=== PATIENT | female | born 1940 | race Caucasian/White ===

== ENCOUNTER 2025-03-25 00:40 | Inpatient (IN) | payer MEDICARE, SELFPAY ==
[2025-03-25] VITALS (16 sets, daily range): BP systolic 121–171; BP diastolic 59–71; PULSE 74–88; RESP 14–20; TEMP 36.1–37.8; O2SAT 93–99; BMI 31.5; BMI 31.7; BMI 32.5
--- OUTSIDE RECORDS SUMMARY | 2025-03-25 01:10 | XMS RPT_ITS | CCD ---
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 Name Role Phone EMILIANO LEAL DO Primary Care Physician [phone] Candy PT, Daniella Unavailable Unavailable KEILY AMADO DO Attending Unavaila EMILIANO Woodard DO Primary Care Unavailable RAPHAEL TERRELL, DR STANTON Attending Unavailable ELVIS TERRELL, EMILIANO Primary Care Unavailable DONATO NAVARRETE DO Primary Care Physician ASIM AMAYA Attending UnavailDONATO Ward DO Primary Care Unavailable ASIM AMAYA Attending Unavailab DONATO Frye DO Primary Care Unavailable EMILIANO LEAL DO Attending Unavailable EMILIANO LEAL DO Primary Care Unavailable ASIM AMAYA Attending UnavailDONATO Ward DO Primary Care Unavailable DONATO NAVARRETE DO Attending Unavailable DONATO NAVARRETE DO Primary Care Unavailable EMILIANO LEAL DO Attending Unavailable EMILIANO LEAL DO Primary Care Unavailable EMILIANO LEAL DO Attending Unavailable EMILIANO LEAL DO Primary Care Unavailable DONATO NAVARRETE DO Primary Care Unavailable DONATO NAVARRETE DO Attending Unavailable EMILIANO LEAL DO Primary Care Unavailable ASIM AMAYA Attending Unavailab EMILIANO Tracey DO Primary Care Unavailable EMILIANO LEAL DO Attending Unavailable HIEN TERRELL, DR CAAL Attending Unavailable DANIELLA DOUGHERTY Admitting Unavaila EMILIANO Woodard DO Primary Care Unavailable EMILIANO LEAL DO Primary Care Unavailable LAUREN JHA Consulting Unavailable BETHANY TERRELL, DR TERRIE Farnsworth Attending Unavailvonnie AGUSTIN MD, DR MONIKA Farnsworth Consulting Solo HOFFMAN MD, DR CASTLE Attending UnavailEMILIANO Roman DO Primary Care Unavailable EMILIANO LEAL DO Primary Care Unavailable ENZO PANCHAL, JODY Barraza Attending Unavail hemant MUSA MD FACP, JAREK Powers Consulting Unavail able HIEN TERRELL, DR CAAL Attending Unavailable ELVIS DO, EMILIANO Primary Care Unavailable EZEKIEL AGACNP, RHINA M Admitting Unavailab megan DIEHL RADIATION ENGINEER-FINE ARTS CHAIR, ASIM Consulting Unavailab megan RODRIGUEZ DO, DR CAAL Attending Unavailable KAPPFEI RADIATION ENGINEER-FINE ARTS CHAIR, DANIELLA M Admitting Unavaila ble ELVIS DO, EMILIANO Primary Care Unavailable DONATO NAVARRETE DO Primary Care Unavailable DONATO NAVARRETE DO Attending Unavailable EVLIS DO, EMILIANO Primary Care Unavailable RANDEE RADIATION ENGINEER-FINE ARTS CHAIR, ANASTASIYA Tobias Attending Unavail hemant GALDAMEZ MD, JESSIE Consulting Unavailable ADAMARIS PANCHAL, HARRY Attending Unavailable ADAMARIS PANCHAL, HARRY Admitting Unavailable ELVIS DO, EMILIANO Primary Care Unavailable ELVIS DO, EMILIANO Primary Care Unavailable LAUREN PANCHAL, DR JHA Admitting Unavailable LAUREN PANCHAL, DR JHA Attending Unavailable ELVIS TERRELL, EMILIANO Primary Care Unavailable ADAMARIS PANCHAL, HARRY Attending Unavailable ELVIS TERRELL, EMILIANO Primary Care Unavailable PARISA MATTHEWS MD Attending Unavailable DEREK GUNTER MD Consulting Unavailable VAMSI PANCHAL, DR MONIKA Farnsworth Admitting UnaHARRY Fitzgerald MD Consulting Unavailable ELVIS TERRELL, EMILIANO Primary Care Unavailable HARRY BAILON MD Attending Unavailable ARTURO POE MD Consulting Unavailable HARRY BAILON MD Admitting Unavailable VICTOR MANUEL PETERSON MD Attending Unavailable DONATO NAVARRETE DO Primary Care Unavailable Allergies Allergy Classification Reported Allergen(s) Allergy Type Date of Onset Reaction(s) Facility (20 sources) Cyproheptadine; Translations: [cyproheptadine] Drug Allergy Numbness [facility] (20 sources) Alendronate; Translations: [alendronate] Drug Allergy 2 Muscle pain (finding) [facility] (9 sources) amLODIPine; Translations: [amlodipine] Drug Allergy 4 Edema (finding) [facility] (7 sources) dofetilide; Translations: [dofetilide] Drug Allergy Irregular heart beat (finding) [facility] Medications Current Medications Medication Drug Class(es) Dates Sig (Normalized) Sig (Original) albuterol MDI (90 mcg/inh) CFC free inhalation aerosol (7 sources) Start: 07-05-2024 take 2 puff(s) by inhalation every four hours as needed for wheezing albuterol MDI (90 mcg/inh) CFC free inhalation aerosol 2 puff(s), Inhalation, q4h, PRN as needed for wheezing, # 18 gram(s), 0 Refill(s) Start Date: 07/05/24 Status: Ordered Medication Dispense Status: Completed Quantity: 18.0 Unit: g Total Allowed Fills: 1 Fills Dispensed: 0 Start: 07-05-2024 take 2 puff(s) by in halation every four hours as needed for wheezing albuterol MDI (90 mcg/inh) CFC free inhalation aerosol 2 puff(s), Inhalation, q4h, PRN as needed for wheezing, # 18 gram(s), 0 Refill(s) Start Date: 07/05/24 Status: Ordered Quantity: 18.0 Unit: g Repeat number: 1 amiodarone hydrochloride 200 mg oral tablet (10 sources) Antiarrhythmic Start: 07-13-2024 amiodarone 200 mg oral tablet Dose : 200 mg = 1 tab(s), Oral, qDay, # 60 tab(s), 0 Refill(s), other reason (Rx) Start Date: 07/13/24 Status: Ordered Quantity: 60.0 Unit: tab(s) Repeat number: 1 Start: 05-28-2024 End: 06-30-2024 amiodarone 200 mg oral table t Dose : 200 mg = 1 tab(s), Oral, qDay, # 90 tab(s), 3 Refill(s), Pharmacy: [facility], 160, cm, 06/13/24 13:57:00 EST, Height, kg, 06/13/24 13:57:00 EST, Dosing Weight Start Date: 06/13/24 Status: Ordered Quantity: 90.0 Unit: tab(s) Repeat number: 4 Start: 05-26-2024 amiodarone 200 mg oral tablet Dose : 200 mg = 1 tab(s), Oral, qDay, Take with food., # 90 tab(s), 0 Refill(s), Pharmacy: [facility], 160, cm, 05/13/24 16:44:00 EST, Height, kg, 05/13/24 16:44:00 EST, Dosing Weight Start Date: 05/26/24 Status: Ordered Quantity: 90.0 Unit: tab(s) Repeat number: 1 Start: 05-26-2024 amiodarone 200 mg oral tablet Dose : 200 mg = 1 tab(s), Oral, qDay, Take with food., # 90 tab(s), 0 Refill(s), Pharmacy: [facility], 160, cm, 05/13/24 16:44:00 EST, Height, kg, 05/13/24 16:44:00 EST, Dosing Weight Start Date: 05/26/24 Status: Ordered Quantity: 90.0 Unit: tab(s) Repeat number: 1 Start: 05-18-2024 End: 05-25-2024 amiodarone 200 mg oral table t Dose : 400 mg = 2 tab(s), Oral, BIDM, # 28 tab(s), 0 Refill(s), Pharmacy: [facility], 160, cm, 05/13/24 16:44:00 EST, Height, kg, 05/13/24 16:44:00 EST, Dosing Weight Start Date: 05/18/24 Stop Date: 05/25/24 Status: Ordered Quantity: 28.0 Unit: tab(s) Repeat number: 1 amLODIPine 5 mg oral tablet (12 sources) Dihydropyridine Calcium Channel Vadim Start: 07-01-2024 amLODIPine 5 mg oral tablet Dose : 5 mg = 1 tab(s), Oral, qDay, # 90 tab(s), 3 Refill(s), [id number], 167, cm, 06/28/24 5:22:00 EDT, Height, kg, 06/28/24 5:22:00 EDT, Dosing Weight Start Date: 07/01/24 Status: Ordered Quantity: 90.0 Unit: tab(s) Repeat number: 4 Start: 01-06-2022 amLODIPine 10 mg oral tablet Dose : 10 mg = 1 tab(s), Oral, Daily, # 90 tab(s), 3 Refill(s), Pharmacy: [facility] #[id number], 159, cm, 10/05/21 9:50:00 EDT, Height, kg, 10/05/21 9:50:00 EDT, Dosing Weight Start Date: 01/06/22 Status: Ordered Start: 10-05-2021 amLODIPine 10 mg oral tablet Dose : 10 mg = 1 tab(s), Oral, Daily, # 90 tab(s), 3 Refill(s), Pharmacy: [facility] 159, cm, 10/05/21 9:50:00 EDT, Height, kg, 10/05/21 9:50:00 EDT, Dosing Weight Start Date: 10/05/21 Status: Ordered Start: 10-06-2020 amLODIPine 10 mg oral tablet Dose : 10 mg = 1 tab(s), Oral, Daily, # 90 tab(s), 3 Refill(s), Pharmacy: [facility] 160, cm, 10/06/20 8:46:00 EDT, Height, kg, 10/06/20 8:46:00 EDT, Dosing Weight Start Date: 10/06/20 Status: Ordered apixaban 5 mg oral tablet (16 sources) Factor Xa Inhibitor Start: 10-05-2024 Eliquis 5 mg oral tablet Dose : 5 mg = 1 tab(s), Oral, BID, # 180 tab(s), 3 Refill(s), Pharmacy: [facility], 157.5, cm, 09/19/24 14:48:00 EDT, Height, 69.6, kg, 09/19/24 14:48:00 EDT, Dosing Weight Start Date: 10/05/24 Status: Ordered Medication Dispense Status: Completed Quantity: 180.0 Unit: tab(s) Total Allowed Fills: 4 Fills Dispensed: 0 Start: 08-29-2024 Eliquis 5 mg o ral tablet Dose : 5 mg = 1 tab(s), Oral, BID, # 180 tab(s), 3 Refill(s), Pharmacy: [facility], 157.5, cm, 08/27/24 18:22:00 EDT, Height, 67.9, kg, 08/27/24 18:22:00 EDT, Dosing Weight Start Date: 08/29/24 Status: Ordered Quantity: 180.0 Unit: tab(s) Repeat number: 4 Start: 07-26-2024 Eliquis 5 mg o ral tablet Dose : 5 mg = 1 tab(s), Oral, BID, # 180 tab(s), 3 Refill(s), [facility]acy: [facility], 160, cm, 07/19/24 15:08:00 EDT, Height, 65.4, kg, 07/19/24 15:02:00 EDT, Dosing Weight Start Date: 07/26/24 Status: Ordered Quantity: 180.0 Unit: tab(s) Repeat number: 4 Start: 06-19-2024 Eliquis 5 mg o ral tablet Dose : 5 mg = 1 tab(s), Oral, BID, # 180 tab(s), 3 Refill(s), Pharmacy: [facility], 160, cm, 06/19/24 6:42:00 EDT, Height, 61.3, kg, 06/19/24 6:42:00 EDT, Dosing Weight Start Date: 06/19/24 Status: Ordered Quantity: 180.0 Unit: tab(s) Repeat number: 4 Start: 05-28-2024 Eliquis 2.5 mg oral tablet Dose : 2.5 mg = 1 tab(s), Oral, BID, # 60 tab(s), 0 Refill(s), Pharmacy: [facility] #[id number], 160, cm, 05/23/24 14:01:00 EST, Height, 63.8, kg, 05/23/24 14:01:00 EST, Dosing Weight Start Date: 05/28/24 Status: Ordered Quantity: 60.0 Unit: tab(s) Repeat number: 1 Start: 05-23-2024 Eliquis 2.5 mg oral tablet Dose : 2.5 mg = 1 tab(s), Oral, BID, 0 Refill(s), 63.8 Start Date: 05/23/24 Status: Ordered Repeat number: 1 Start: 05-18-2024 Eliquis 5 mg o ral tablet Dose : 5 mg = 1 tab(s), Oral, BID, # 180 tab(s), 3 Refill(s), Pharmacy: [facility], 160, cm, 05/13/24 16:44:00 EST, Height, 65.9, kg, 05/13/24 16:44:00 EST, Dosing Weight Start Date: 05/18/24 Status: Ordered Quantity: 180.0 Unit: tab(s) Repeat number: 4 atorvastatin 40 mg oral tablet (1 source) HMG-CoA Reductase Inhibitor Start: 02-19-2025 End: 02-14-2026 atorvastatin 40 mg oral tablet Dose : 40 mg = 1 tab(s), Oral, qDay, # 90 tab(s), 3 Refill(s), Pharmacy: [facility], 157.5, cm, 02/19/25 6:33:00 EST, Height, kg, 02/19/25 6:33:00 EST, Dosing Weight Start Date: 02/19/25 Stop Date: 02/14/26 Status: Ordered Medication Dispense Status: Completed Quantity: 90.0 Unit: tab(s) Total Allowed Fills: 4 Fills Dispensed: 0 azithromycin 250 mg oral tablet (1 source) Macrolide Antimicrobial Start: 01-01-2025 End: 01-06-2025 azithromycin 250 mg oral tablet Take two (2) tablets day 1-then one (1) tablet, Oral, Daily, X 5 day(s), # 6 tab(s), 0 Refill(s), 01/06/25 3:57:00 PM EDT, Pharmacy: [facility], 177.8, cm, 01/01/25 9:42:00 EDT, Height, 73.8, kg, 01/01/25 9:42:00 EDT, Dosing Weight Start Date: 01/01/25 Stop Date: 01/06/25 Status: Ordered Medication Dispense Status: Completed Quantity: 6.0 Unit: tab(s) Total Allowed Fills: 1 Fills Dispensed: 0 bisoprolol fumarate 5 mg oral tablet (1 source) beta-Adrenergic Vadim Start: 04-20-2024 bisoprolol 5 mg oral tablet Dose : 5 mg = 1 tab(s), Oral, qHS, # 30 tab(s), 0 Refill(s), Pharmacy: [facility], HTN (hypertension), 158, cm, 04/19/24 14:50:00 EST, Height, kg, 04/19/24 14:50:00 EST, Dosing Weight Start Date: 04/20/24 Status: Ordered Quantity: 30.0 Unit: tab(s) Repeat number: 1 Indication: Essential (primary) hypertension Breztri Aerosphere 160 mcg-9 mcg-4.8 mcg/inh inhalation aerosol (5 sources) Start: 01-17-2025 Breztri Aerosp here 160 mcg-9 mcg-4.8 mcg/inh inhalation aerosol Dose = 2 puff(s), Inhalation, BID, not to exceed 4 inhalations/day, # 1 EA, 2 Refill(s), Pharmacy: [facility], 157.8, cm, 01/16/25 15:23:00 EDT, Height, kg, 01/16/25 15:23:00 EDT, Dosing Weight Start Date: 01/17/25 Status: Ordered Medication Dispense Status: Completed Quantity: 1.0 Unit: EA Total Allowed Fills: 3 Fills Dispensed: 0 Start: 01-16-2025 take 1 dose by mouth twice daily Breztri Aerosphere 160 mcg-9 mcg-4.8 mcg/inh inhalation aerosol Dose = 2 puff(s), Inhalation, BID, rinse mouth and throat after use, # 1 EA, 2 Refill(s), Pharmacy: [facility], COPD - Chronic obstructive pulmonary disease, 157.8, cm, 01/16/25 15:23:00 EDT, Height, kg, 01/16/25 15:23:00 EDT, Dosing Weight Start Date: 01/16/25 Status: Ordered Medication Dispense Status: Completed Quantity: 1.0 Unit: EA Total Allowed Fills: 3 Fills Dispensed: 0 Indications: Chronic obstructive pulmonary disease, unspecified; bumetanide 1 mg oral tablet (14 sources) Loop Diuretic Start: 07-01-2024 bumetanide 1 m g oral tablet Dose : 1 mg = 1 tab(s), Oral, BID, # 180 tab(s), 3 Refill(s), Pharmacy: [facility] #[id number], 167, cm, 06/28/24 5:22:00 EDT, Height, kg, 06/28/24 5:22:00 EDT, Dosing Weight Start Date: 07/01/24 Status: Ordered Medication Dispense Status: Completed Quantity: 180.0 Unit: tab(s) Total Allowed Fills: 4 Fills Dispensed: 0 Start: 05-28-2024 End: 06-27-2024 bumetanide 1 mg oral tablet Dose : 1 mg = 1 tab(s), Oral, BID, # 180 tab(s), 3 Refill(s), Pharmacy: [facility], 160, cm, 06/13/24 13:57:00 EST, Height, kg, 06/13/24 13:57:00 EST, Dosing Weight Start Date: 06/13/24 Status: Ordered Quantity: 180.0 Unit: tab(s) Repeat number: 4 Start: 05-23-2024 Bumex Dose : 1 mg = 1 tab(s), Oral, BID, 0 Refill(s) Start Date: 05/23/24 Status: Ordered Repeat number: 1 calcium carbonate 1500 mg or al tablet (11 sources) Start: 09-19-2024 calcium (as ca rbonate) 600 mg oral tablet Dose : 1,200 mg = 2 tab(s), Oral, qDay, 0 Refill(s) Start Date: 09/19/24 Status: Ordered Medication Dispense Status: Completed Total Allowed Fills: 1 Fills Dispensed: 0 Start: 11-02-2019 take 1 dose by mouth once tigist y Oscal 500 Dose : 500 mg =, Oral, qDay, 0 Refill(s) Start Date: 11/02/19 Status: Ordered Cholecalciferol (6 sources) Vitamin D Start: 09-19-2024 take 1 capsule by mouth once daily Vitamin D (3) 45 units oral capsule Dose : 1,250 mcg =, Oral, qDay, 0 Refill(s) Start Date: 09/19/24 Status: Ordered Medication Dispense Status: Completed Total Allowed Fills: 1 Fills Dispensed: 0 1 ml denosumab 60 mg/ml prefilled syringe (17 sources) RANK Ligand Inhibitor Start: 01-22-2025 inject 1 mL by subcutaneous injection in the evening Prolia 60 mg/mL subcutaneous solution Dose : 60 mg = 1 mL, Subcutaneous, q6mo, Signed 01/22/25 at 5:57 PM, # 1 mL, 1 Refill(s), Osteoporosis Start Date: 01/22/25 Status: Ordered Medication Dispense Status: Completed Quantity: 1.0 Unit: mL Total Allowed Fills: 2 Fills Dispensed: 0 Indications: Age-related osteoporosis without current pathological fracture; Start: 04-18-2024 Prolia 60 mg/m L subcutaneous solution Dose : 60 mg = 1 mL, Subcutaneous, q6mo, # 1 mL, 0 Refill(s), Osteoporosis, 158, cm, 02/23/24 10:19:00 EST, Height, kg, 02/23/24 10:19:00 EST, Dosing Weight Start Date: 04/18/24 Status: Ordered Medication Dispense Status: Completed Quantity: 1.0 Unit: mL Total Allowed Fills: 1 Fills Dispensed: 0 Indications: Age-related osteoporosis without current pathological fracture; 24 hr dilTIAZem hydrochloride 240 mg extended release oral capsule (3 sources) Calcium Channel Vadim Start: 06-13-2024 Cardizem CD 240 mg/2 4 hours oral capsule, extended release Dose : 240 mg = 1 cap(s), Oral, qDay, # 90 cap(s), 3 Refill(s), Pharmacy: [facility], 160, cm, 06/13/24 13:57:00 EST, Height, kg, 06/13/24 13:57:00 EST, Dosing Weight Start Date: 06/13/24 Status: Ordered Quantity: 90.0 Unit: cap(s) Repeat number: 4 Start: 05-28-2024 Cardizem CD 12 0 mg/24 hours oral capsule, extended release Dose : 120 mg = 1 cap(s), Oral, qDay, # 30 cap(s), 0 Refill(s), Pharmacy: [facility], 160, cm, 05/23/24 14:01:00 EST, Height, kg, 05/23/24 14:01:00 EST, Dosing Weight Start Date: 05/28/24 Status: Ordered Quantity: 30.0 Unit: cap(s) Repeat number: 1 Start: 05-23-2024 Cardizem CD 12 0 mg/24 hours oral capsule, extended release Dose : 120 mg = 1 cap(s), Oral, qDay, 0 Refill(s) Start Date: 05/23/24 Status: Ordered Repeat number: 1 empagliflozin 10 mg oral tablet (14 sources) Sodium-Glucose Cotransporter 2 Inhibitor Start: 01-01-2025 Jardiance 10 mg oral tablet Dose : 10 mg = 1 tab(s), Oral, qAM, # 90 tab(s), 3 Refill(s), Pharmacy: [facility], 157.5, cm, 12/20/24 15:03:00 EDT, Height, kg, 12/20/24 15:03:00 EDT, Dosing Weight Start Date: 01/01/25 Status: Ordered Medication Dispense Status: Completed Quantity: 90.0 Unit: tab(s) Total Allowed Fills: 4 Fills Dispensed: 0 Start: 06-14-2024 Jardiance 10 m g oral tablet Dose : 10 mg = 1 tab(s), Oral, qAM, # 90 tab(s), 3 Refill(s), Pharmacy: [facility], 160, cm, 06/13/24 13:57:00 EST, Height, kg, 06/13/24 13:57:00 EST, Dosing Weight Start Date: 06/14/24 Status: Ordered Quantity: 90.0 Unit: tab(s) Repeat number: 4 Start: 05-28-2024 Jardiance 10 m g oral tablet Dose : 10 mg = 1 tab(s), Oral, qAM, # 30 tab(s), 0 Refill(s), Pharmacy: [facility], 160, cm, 05/23/24 14:01:00 EST, Height, kg, 05/23/24 14:01:00 EST, Dosing Weight Start Date: 05/28/24 Status: Ordered Quantity: 30.0 Unit: tab(s) Repeat number: 1 Start: 05-23-2024 Jardiance 10 m g oral tablet Dose : 10 mg = 1 tab(s), Oral, qAM, 0 Refill(s) Start Date: 05/23/24 Status: Ordered Repeat number: 1 furosemide 40 mg oral tablet (2 sources) Loop Diuretic Start: 05-18-2024 Lasix 40 mg or al tablet Dose : 40 mg = 1 tab(s), Oral, qDay, # 30 tab(s), 0 Refill(s), Pharmacy: [facility], 160, cm, 05/13/24 16:44:00 EST, Height, kg, 05/13/24 16:44:00 EST, Dosing Weight Start Date: 05/18/24 Status: Ordered Quantity: 30.0 Unit: tab(s) Repeat number: 1 gabapentin 600 mg oral tablet (2 sources) Anti-epileptic Agent Start: 04-06-2021 End: 07-05-2021 gabapentin 600 mg oral tablet Dose : 600 mg = 1 tab(s), Oral, BID, # 180 tab(s), 0 Refill(s), Pharmacy: [facility], [place], 159, cm, 04/06/21 7:47:00 EST, Height, 63, kg, 04/06/21 7:47:00 EST, Dosing Weight Start Date: 04/06/21 Stop Date: 07/05/21 Status: Ordered Start: 10-06-2020 End: 04-04-2021 gabapentin 600 mg oral table t Dose : 600 mg = 1 tab(s), Oral, BID, # 180 tab(s), 1 Refill(s), Pharmacy: [facility], [place], 160, cm, 10/06/20 8:46:00 EDT, Height, 65.6, kg, 10/06/20 8:46:00 EDT, Dosing Weight Start Date: 10/06/20 Stop Date: 04/04/21 Status: Ordered hydroCHLOROthiazide 12.5 mg oral tablet (1 source) Thiazide Diuretic Start: 04-13-2024 hydroCHLOROthiazide 12.5 mg oral tablet Dose : 12.5 mg = 1 tab(s), Oral, qDay, # 90 tab(s), 3 Refill(s), Pharmacy: [facility], HTN (hypertension), 158, cm, 02/23/24 10:19:00 EST, Height, kg, 02/23/24 10:19:00 EST, Dosing Weight Start Date: 04/13/24 Status: Ordered Quantity: 90.0 Unit: tab(s) Repeat number: 4 Indication: Essential (primary) hypertension magnesium oxide 400 mg oral capsule (3 sources) Start: 09-19-2024 magnesium oxide 400 mg oral capsule Dose : 400 mg = 1 cap(s), Oral, qDay, # 75 cap(s), 0 Refill(s) Start Date: 09/19/24 Status: Ordered Medication Dispense Status: Completed Quantity: 75.0 Unit: cap(s) Total Allowed Fills: 1 Fills Dispensed: 0 naproxen 250 mg oral tablet (1 source) Nonsteroidal Anti-inflammatory Drug Start: 02-17-2021 End: 02-24-2021 naproxen 250 mg oral tablet Dose : 250 mg = 1 tab(s), Oral, BID, X 7 day(s), # 14 tab(s), 0 Refill(s), 02/24/21 18:25:00 EST, Accidental fall Closed head injury Start Date: 02/17/21 Stop Date: 02/24/21 Status: Ordered potassium chloride 20 meq oral tablet (6 sources) Start: 02-18-2025 potassium chloride 20 mEq oral tablet, extended release Dose : 20 mEq = 1 tab(s), Oral, BID, Take with food, # 60 tab(s), 1 Refill(s), Pharmacy: [facility], 157.5, cm, 01/31/25 10:22:00 EDT, Height, kg, 01/31/25 10:22:00 EDT, Dosing Weight Start Date: 02/18/25 Status: Ordered Medication Dispense Status: Completed Quantity: 60.0 Unit: tab(s) Total Allowed Fills: 2 Fills Dispensed: 0 Start: 06-19-2024 potassium chlo ride 20 mEq oral tablet, extended release Dose : 20 mEq = 1 tab(s), Oral, qDay, Take with food, # 30 tab(s), 3 Refill(s), Pharmacy: [facility], 160, cm, 06/19/24 6:42:00 EDT, Height, kg, 06/19/24 6:42:00 EDT, Dosing Weight Start Date: 06/19/24 Status: Ordered Quantity: 30.0 Unit: tab(s) Repeat number: 4 valsartan 320 mg oral tablet (13 sources) Angiotensin 2 Receptor Vadim Start: 01-31-2025 valsartan 320 mg ora l tablet Dose : 320 mg = 1 tab(s), Oral, Daily, # 100 tab(s), 1 Refill(s), Pharmacy: [facility], 157.5, cm, 01/31/25 10:22:00 EDT, Height, kg, 01/31/25 10:22:00 EDT, Dosing Weight Start Date: 01/31/25 Status: Ordered Medication Dispense Status: Completed Quantity: 100.0 Unit: tab(s) Total Allowed Fills: 2 Fills Dispensed: 0 Start: 07-23-2024 valsartan 160 mg oral tablet Dose : 160 mg = 1 tab(s), Oral, qDay, Replaces previous Rx for the valsartan 320 mg dose., # 90 tab(s), 1 Refill(s), Pharmacy: [facility], 160, cm, 07/19/24 15:08:00 EDT, Height, kg, 07/19/24 15:02:00 EDT, Dosing Weight Start Date: 07/23/24 Status: Ordered Medication Dispense Status: Completed Quantity: 90.0 Unit: tab(s) Total Allowed Fills: 2 Fills Dispensed: 0 Start: 02-23-2024 valsartan 320 mg oral tablet Dose : 320 mg = 1 tab(s), Oral, qDay, Replaces previous prescription for valsartan 160 mg tablets., # 90 tab(s), 3 Refill(s), Pharmacy: [facility], 158, cm, 02/23/24 10:19:00 EST, Height, kg, 02/23/24 10:19:00 EST, Dosing Weight Start Date: 02/23/24 Status: Ordered Quantity: 90.0 Unit: tab(s) Repeat number: 4 Vitamin D3 50 mcg (2000 intl units) oral capsule (1 source) Start: 02-19-2025 Vitamin D3 50 mcg (2000 intl units) oral capsule Dose : 50 mcg = 1 cap(s), Oral, qDay, # 60 cap(s), 0 Refill(s) Start Date: 02/19/25 Status: Ordered Medication Dispense Status: Completed Quantity: 60.0 Unit: cap(s) Total Allowed Fills: 1 Fills Dispensed: 0 Completed/Discontinued Medications Medication Drug Class(es) Dates Sig (Normalized) Sig (Original) albuterol 0.83 mg/ml inhalation solution (7 sources) beta2-Adrenergic Agonist Start: 07-09-2024 End: 10-07-2024 take 1 dose by mouth every six hours as needed for wheezing albuterol 2.5 mg/3 mL (0.083%) inhalation solution INHALE 3ML( contents of 1 vial) BY MOUTH EVERY 6 HOURS NEEDED FOR WHEEZING Start Date: 09/12/24 Status: Ordered Medication Dispense Status: Completed Total Allowed Fills: 1 Fills Dispensed: 0 Metoprolol (13 sources) beta-Adrenergic Vadim Start: 05-29-2024 End: 05-29-2024 Toprol-XL Start: 05/29/24 8:00:00 AM EST, Dose = 50 mg, = 1 tab(s), Oral, Hold if SBP (mmHg) Start Date: 05/29/24 Stop Date: 05/29/24 Status: Completed Repeat number: 1 Start: 05-28-2024 End: 05-28-2024 Toprol-XL Start: 05/28/24 5:0 0:00 PM EST, Dose = 50 mg, = 1 tab(s), Oral, Hold if SBP (mmHg) Start Date: 05/28/24 Stop Date: 05/28/24 Status: Completed Repeat number: 1 Start: 05-28-2024 End: 05-28-2024 Toprol-XL Start: 05/28/24 8:0 0:00 AM EST, Dose = 50 mg, = 1 tab(s), Oral, Hold if SBP (mmHg) Start Date: 05/28/24 Stop Date: 05/28/24 Status: Completed Repeat number: 1 Start: 05-23-2024 End: 05-23-2024 Toprol-XL Start: 05/23/24 8:0 0:00 AM EST, Dose = 50 mg, = 1 tab(s), Oral, Hold if SBP (mmHg) Start Date: 05/23/24 Stop Date: 05/23/24 Status: Completed Repeat number: 1 Start: 05-22-2024 End: 05-22-2024 Toprol-XL Start: 05/22/24 5:0 0:00 PM EST, Dose = 50 mg, = 1 tab(s), Oral, Hold if SBP (mmHg) Start Date: 05/22/24 Stop Date: 05/22/24 Status: Completed Repeat number: 1 Start: 05-22-2024 End: 05-22-2024 Toprol-XL Start: 05/22/24 8:0 0:00 AM EST, Dose = 50 mg, = 1 tab(s), Oral, Hold if SBP (mmHg) Start Date: 05/22/24 Stop Date: 05/22/24 Status: Completed Repeat number: 1 Start: 05-20-2024 End: 05-20-2024 metoprolol tartrate 1 mg/mL injectable solution Start: 05/20/24 1:29:00 AM EST, Dose = 5 mg, = 5 mL, IV Push, Once, NOW, Stop: 05/20/24 3:21:59 AM EST, 05/20/24 1:29:00 EST Start Date: 05/20/24 Stop Date: 05/20/24 Status: Completed Repeat number: 1 Start: 05-18-2024 Toprol-XL 50 m g oral tablet, extended release Dose : 50 mg = 1 tab(s), Oral, BIDM, # 60 tab(s), 0 Refill(s), Pharmacy: [facility], 160, cm, 05/13/24 16:44:00 EST, Height, kg, 05/13/24 16:44:00 EST, Dosing Weight Start Date: 05/18/24 Status: Ordered Quantity: 60.0 Unit: tab(s) Repeat number: 1 Start: 05-18-2024 End: 05-18-2024 Toprol-XL Start: 05/18/24 8:00 :00 AM EST, Dose = 50 mg, = 1 tab(s), Oral, Hold if SBP (mmHg) Start Date: 05/18/24 Stop Date: 05/18/24 Status: Completed Repeat number: 1 Start: 05-17-2024 End: 05-17-2024 Toprol-XL Start: 05/17/24 5:00 :00 PM EST, Dose = 50 mg, = 1 tab(s), Oral, Hold if SBP (mmHg) Start Date: 05/17/24 Stop Date: 05/17/24 Status: Completed Repeat number: 1 Start: 05-17-2024 End: 05-17-2024 Toprol-XL Start: 05/17/24 8:00 :00 AM EST, Dose = 50 mg, = 1 tab(s), Oral, Hold if SBP (mmHg) Start Date: 05/17/24 Stop Date: 05/17/24 Status: Completed Repeat number: 1 Oxygen (3 sources) Start: 07-27-2024 OXYGEN OXYGEN, 1 LITERS, Nasal, qHS, FOR PULSE OX LESS THAN 90, PRN Shortness of breath (SOB), 0 Refill(s), 65.4 Start Date: 07/27/24 Status: Ordered Repeat number: 1 Start: 07-27-2024 OXYGEN OXYGEN, 1 LITERS, Nasal, qDay, FOR PULSE OX LESS THAN 90, PRN Shortness of breath (SOB), 0 Refill(s), 65.4 Start Date: 07/27/24 Status: Ordered Repeat number: 1 Problems Active Problems Problem Classification Problem Date Documented Date Episodic/Chronic Acute and unspecified renal failure (20 sources) Chronic renal failure 12-12-2018 Chronic Acute bronchitis (3 sources) Acute infective bronchitis 04-15-2022 Episodic Acute myocardial infarction (3 sources) Myocardial infarction due to demand ischemia; Translations: [Myocardial infarction type 2] Onset: 5 Chronic Cardiac dysrhythmias (20 sources) Unspecified atrial fibrillation; Translations: [Atrial fibrillation] Onset: 5 Chronic Chronic kidney disease (4 sources) Chronic kidney disease stage 3; Translations: [Chronic kidney disease, stage 3 unspecified] Onset: 5 Chronic Chronic kidney disease (4 sources) Chronic kidney disease; Translations: [Chronic kidney disease, stage 3 unspecified] Onset: 5 Chronic obstructive pulmonary disease and bronchiectasis (11 sources) Chronic obstructive lung disease; Translations: [Chronic obstructive pulmonary disease, unspecified] Onset: 5 07-27-2024 Chronic Congestive heart failure; nonhypertensive (20 sources) Heart failure; Translations: [Heart failure, unspecified] Onset: 5 Chronic Coronary atherosclerosis and other heart disease (8 sources) History of myocardial infarction; Translations: [Old myocardial infarction] Onset: 5 09-12-2024 Chronic E Codes: Fall (1 source) Fall; Translations: [Unspecified fall, initial encounter] Onset: 1 Episodic Essential hypertension (20 sources) Hypertensive disorder; Translations: [Essential hypertension] Onset: 5 08-14-2014 Chronic Genitourinary symptoms and ill-defined conditions (12 sources) Microalbuminuria; Translations: [Proteinuria] 08-15-2020 Episodic Heart valve disorders (7 sources) Non-rheumatic mitral regurgitation ; Translations: [Nonrheumatic mitral (valve) insufficiency] Onset: 5 Chronic Hypertension with complications and secondary hypertension (6 sources) Chronic kidney disease due to hypertension; Translations: [Hypertensive chronic kidney disease with stage 1 through stage 4 chronic kidney disease, or unspecified chronic kidney disease] Onset: 5 Chronic Osteoporosis (20 sources) Osteoporosis; Translations: [Primary osteoporosis] Onset: 5 12-04-2018 Chronic Other connective tissue disease (1 source) Musculoskeletal symptom; Translations: [Other symptoms and signs involving the musculoskeletal system] Episodic Other endocrine disorders (7 sources) Secondary hyperparathyroidism 09-12-2024 Chronic Other injuries and conditions due to external causes (1 source) Injury of head; Translations: [Unspecified injury of head, initial encounter] Onset: 1 Episodic Other lower respiratory disease (1 source) Chronic pulmonary edema; Translations: [Chronic pulmonary edema] Onset: 5 Chronic Other lower respiratory disease (11 sources) Wheezing; Translations: [Wheezing] Onset: 5 07-09-2024 Episodic Other nutritional; endocrine; and metabolic disorders (2 sources) Hypercalcemia; Translations: [Hypercalcemia] Chronic Other nutritional; endocrine; and metabolic disorders (14 sources) Hypercalcemia 03-11-2022 Chronic Little-; endo-; and myocarditis; cardiomyopathy (except that caused by tuberculosis or sexually transmitted disease) (1 source) Other cardiomyopathies; Translations: [Other cardiomyopathies] Onset: 5 Chronic Residual codes; unclassified (7 sources) Not for resuscitation 09-12-2024 Episodic Respiratory failure; insufficiency; arrest (adult) (8 sources) Chronic hypoxemic respiratory failure; Translations: [Dependence on supplemental oxygen] Onset: 5 09-12-2024 Chronic Spondylosis; intervertebral disc disorders; other back problems (1 source) Degeneration of lumbar intervertebral disc 04-06-2021 Chronic Spondylosis; intervertebral disc disorders; other back problems (8 sources) Sciatica; Translations: [Neck pain] 11-07-2019 Episodic Sprains and strains (1 source) Lower back injury; Translations: [Strain of muscle, fascia and tendon of lower back, initial encounter] Onset: 1 Episodic Substance-related disorders (1 source) Nicotine dependence, cigarettes, uncomplicated; Translations: [Nicotine dependence, cigarettes, uncomplicated] Onset: 5 Chronic Unclassified (2 sources) Other persistent atrial fibrillation; Translations: [Other persistent atrial fibrillation] Onset: 5 Unclassified (2 sources) penitentiary (current) use of immunosuppressive biologic; Translations: [terminal makeup operator (current) use of immunosuppressive biologic] Onset: 5 Unclassified (1 source) Ventricular tachycardia, unspecified; Translations: [Ventricular tachycardia, unspecified] Onset: 5 Unclassified (1 source) Longstanding persistent atrial fibrillation; Translations: [Longstanding persistent atrial fibrillation] Onset: 5 Past or Other Problems Problem Classification Problem Date Documented Da te Episodic/Chronic Acute and unspecified renal failure (1 source) Acute kidney failure, unspecified; Translations: [Acute kidney failure, unspecified] Onset: 06-28-2024 Episodic Cardiac dysrhythmias (1 source) Bradycardia, unspecified; Translations: [Bradycardia, unspecified] Onset: 08-27-2024 Episodic Malaise and fatigue (4 sources) Asthenia; Translations: [Weakness] Onset: 05-18-2024 Episodic Other aftercare (2 sources) terminal makeup operator (current) use of anticoagulants; Translations: [terminal makeup operator (current) use of anticoagulants] Onset: 05-20-2024 Episodic Other aftercare (1 source) penitentiary (current) use of inhaled steroids; Translations: [penitentiary (current) use of inhaled steroids] Onset: 07-27-2024 Episodic Other aftercare (1 source) penitentiary (current) use of oral hypoglycemic drugs; Translations: [terminal makeup operator (current) use of oral hypoglycemic drugs] Onset: 07-27-2024 Episodic Other aftercare (1 source) 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 teacher (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; Translations: [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 teacher (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] Onset: 07-27-2024 Episodic Other aftercare (1 source) Encounter for therapeutic drug level monitoring; Translations: [Encounter for therapeutic drug level monitoring] Onset: 07-27-2024 Episodic Other lower respiratory disease (2 sources) Shortness of breath; Translations: [Shortness of breath] Onset: 06-28-2024 Episodic Other lower respiratory disease (1 source) Wheezing; Translations: [Wheezing] Onset: 08-08-2024 Episodic Other screening for suspected conditions (not mental disorders or infectious disease) (1 source) Other specified abnormal findings of blood chemistry; Translations: [Other specified abnormal findings of blood chemistry] Onset: 08-08-2024 Episodic Residual codes; unclassified (1 source) Family history of asthma and other chronic lower respiratory diseases; Translations: [Family history of asthma and other chronic lower respiratory diseases] Onset: 08-08-2024 Episodic Screening and history of mental health and substance abuse codes (1 source) Personal history of nicotine dependence; Translations: [Personal history of nicotine dependence] Onset: 08-27-2024 Episodic Results Test Name Value Interpretation Reference Range Facility .GFRon 02-19-2025 Estimated Glomerular Filtration Rate 63 ml/min/1.73sqm Normal [facility] Comment on above: Result Comment: Stages of Chronic Kidney Disease (CKD) Stage Description eGFR(ml/min/1.73 sq.m.) CKD 1 Normal kidney function or >=90 normal kindney function with possible kidney damage (ex. Proteinuria) CKD 2 Kidney damage with mild loss 60-89 of kidney function CKD 3a Mild to moderate loss of kidney 45-59 function CKD 3b Moderate to severe loss of 30-44 of kindey function CKD 4 Severe loss of kidney function 15-29 CKD 5 Kidney failure <15 Note: (go live 2024) the eGFR calculation was updated to the 2020 CKD-EPI creatinine equation without a race factor to calculate the eGFR results. Performed By: #### G , BMP #### [address] [address] [facility] 02-19-2025 BUN/Creatinine Ratio 18.7 ratio Normal 10.0-22.0 [facility] Comment on above: Performed By: #### G , BMP #### [address] [address] Calcium [Mass/Vol] 9.3 mg/dL Normal 8.7-10.4 [facility] Comment on above: Performed By: #### G FR, BMP #### [address] [address] Chloride [Moles/Vol] 104 mmol/L Normal 98-110 [facility] Comment on above: Performed By: #### Ed WAGNER, BMP #### [address] [address] CO2 [Moles/Vol] 28 mmol/L Normal 22-32 [facility] Comment on above: Performed By: #### Ed WAGNER, BMP #### [place] [id number] Creatinine [Mass/Vol] 0.91 mg/dL Normal 0.50-1.20 [facility] Comment on above: Result Comment: Test ing performed on [email or web address] analyzer using enzymatic creatinine methodology. Performed By: #### Ed WAGNER, BMP #### [place] [address] Electrolyte Balance 10.0 mEq/L Normal 4.0-15.0 [facility] Comment on above: Performed By: #### Ed WAGNER, BMP #### [place] [id number] Glucose [Mass/Vol] 94 mg/dL Normal 82-115 [facility] Comment on above: Performed By: #### Ed WAGNER, BMP #### [place] [id number] Potassium [Moles/Vol] 3.7 mmol/L Normal 3.5-5.0 [facility] Comment on above: Performed By: #### Ed WAGNER, BMP #### [place] [id number] Sodium [Moles/Vol] 142 mmol/L Normal 136-145 [facility] Comment on above: Performed By: #### Ed WAGNER, BMP #### [address] [address] Urea nitrogen [Mass/Vol] 17.0 mg/dL Normal 8.0-22.0 [facility] Comment on above: Performed By: #### Ed WAGNER, BMP #### [address] [address] LABORATORYOrdered By: SYSTEM SYSTEM on 02-19-2025 Calcium [Mass/Vol] 9.3 mg/dL Normal 8.7 - 10. 4 mg/dL ADM SS Chloride [Moles/Vol] 104 mmol/L Normal 98 - 11 0 mEq/L ADM SS CO2 [Moles/Vol] 28 mmol/L Normal 22 - 32 mEq/L ADM SS Creatinine [Mass/Vol] 0.91 mg/dL Normal 0.50 - 1.20 mg/dL AH ADM SS Comment on above: Interpretive Data: T esting performed on [email or web address] analyzer using enzymatic creatinine methodology. Electrolyte Balance 10.0 mEq/L Normal 4.0 - 15 .0 mEq/L ADM SS GLOMERULAR FILTRATION RATE/1.73 SQ M.PREDICTED:ARVRAT:PT :SER/PLAS/BLD:QN:CREA TININE-BASED FORMULA (CKD-EPI 2020) 63 ml/min/1.73sqm Invalid Interpretation Code Chemistry S Comment on above: Interpretive Data: Stages of Chronic Kidney Disease (CKD) Stage Description eGFR(ml/min/1.73 sq.m.) CKD 1 Normal kidney function or >=90 normal kindney function with possible kidney damage (ex. Proteinuria) CKD 2 Kidney damage with mild loss 60-89 of kidney function CKD 3a Mild to moderate loss of kidney 45-59 function CKD 3b Moderate to severe loss of 30-44 of kindey function CKD 4 Severe loss of kidney function 15-29 CKD 5 Kidney failure <15 Note: (go live 2024) the eGFR calculation was updated to the 2020 CKD-EPI creatinine equation without a race factor to calculate the eGFR results. Glucose [Mass/Vol] 94 mg/dL Normal 82 - 115 mg/dL ADM SS Potassium [Moles/Vol] 3.7 mmol/L Normal 3.5 - 5.0 mEq/L ADM SS Sodium [Moles/Vol] 142 mmol/L Normal 136 - 145 mEq/L ADM SS Urea nitrogen [Mass/Vol] 17.0 mg/dL Normal 8.0 - 22.0 mg/dL ADM SS Urea nitrogen/Creatinine [Mass ratio] 18.7 ratio Normal 10.0 - 22.0 ratio AH ADM SS .Auto Diffon 02-15-2025 Basophil, Absolute 0.1 10 3/mcL Normal 0.0-0.3 [facility] Comment on above: Performed By: #### M DW, MG, GFR, BMP, CBC, ANEU, TROPHS, ADIFF #### [address] [address] Basophils/100 WBC (Bld) 1.1 % Normal 0.0-2.5 [facility] Comment on above: Performed By: #### M DW, MG, GFR, BMP, CBC, ANEU, TROPHS, ADIFF #### [address] [address] Eosinophil, Absolute 0.3 10 3/mcL Normal 0.0-0.7 [facility] Comment on above: Performed By: #### M DW, MG, GFR, BMP, CBC, ANEU, TROPHS, ADIFF #### [address] [address] Eosinophils/100 WBC (Bld) 3.5 % Normal 0.0-6.0 [facility] Comment on above: Performed By: #### M DW, MG, GFR, BMP, CBC, ANEU, TROPHS, ADIFF #### [address] [address] Lymphocyte, Absolute 1.7 10 3/mcL Normal 0.9-4.3 [facility] Comment on above: Performed By: #### M DW, MG, GFR, BMP, CBC, ANEU, TROPHS, ADIFF #### [address] [address] Lymphocytes/100 WBC (Bld) 17.9 % Low 20.0-40.0 [facility] Comment on above: Performed By: #### M DW, MG, GFR, BMP, CBC, ANEU, TROPHS, ADIFF #### [address] [address] Monocyte, Absolute 0.7 10 3/mcL Normal 0.1-1.4 [facility] Comment on above: Performed By: #### M DW, MG, GFR, BMP, CBC, ANEU, TROPHS, ADIFF #### [address] [address] Monocytes/100 WBC (Bld) 7.8 % Normal 2.0-13.0 [facility] Comment on above: Performed By: #### M DW, MG, GFR, BMP, CBC, ANEU, TROPHS, ADIFF #### [address] [address] Neutrophils/100 WBC (Bld) 69.7 % Normal 50.0-75.0 [facility] Comment on above: Performed By: #### M DW, MG, GFR, BMP, CBC, ANEU, TROPHS, ADIFF #### [address] [address] .GFRon 02-15-2025 Estimated Glomerular Filtration Rate 51 ml/min/1.73sqm Normal [facility] Comment on above: Result Comment: Stages of Chronic Kidney Disease (CKD) Stage Description eGFR(ml/min/1.73 sq.m.) CKD 1 Normal kidney function or >=90 normal kindney function with possible kidney damage (ex. Proteinuria) CKD 2 Kidney damage with mild loss 60-89 of kidney function CKD 3a Mild to moderate loss of kidney 45-59 function CKD 3b Moderate to severe loss of 30-44 of kindey function CKD 4 Severe loss of kidney function 15-29 CKD 5 Kidney failure <15 Note: (go live 2024) the eGFR calculation was updated to the 2020 CKD-EPI creatinine equation without a race factor to calculate the eGFR results. Performed By: #### M DW, MG, GFR, BMP, CBC, ANEU, TROPHS, ADIFF #### [address] [address] .NEUABSon 02-15-2025 Neutrophil, Absolute 6.5 10 3/mcL Normal 2.3-8.1 [facility] Comment on above: Performed By: #### M DW, MG, GFR, BMP, CBC, ANEU, TROPHS, ADIFF #### [address] [address] BMPon 02-15-2025 BUN/Creatinine Ratio 16 ratio Normal 7-27 [facility] Comment on above: Performed By: #### M DW, MG, GFR, BMP, CBC, ANEU, TROPHS, ADIFF #### [address] [address] Calcium [Mass/Vol] 9.0 mg/dL Normal 8.4-10.2 [facility] Comment on above: Performed By: #### M DW, MG, GFR, BMP, CBC, ANEU, TROPHS, ADIFF #### [address] [address] Chloride [Moles/Vol] 100 mmol/L Normal 98-107 [facility] Comment on above: Performed By: #### M DW, MG, GFR, BMP, CBC, ANEU, TROPHS, ADIFF #### [address] [address] CO2 [Moles/Vol] 33 mmol/L High 23-31 [facility] Comment on above: Performed By: #### M DW, MG, GFR, BMP, CBC, ANEU, TROPHS, ADIFF #### [place] [id number] Creatinine [Mass/Vol] 1.08 mg/dL High 0.51-0.[address] [facility] Comment on above: Performed By: #### M DW, MG, GFR, BMP, CBC, ANEU, TROPHS, ADIFF #### [address] [address] Electrolyte Balance 8.0 mEq/L Normal 4.0-15.0 [facility] Comment on above: Performed By: #### M DW, MG, GFR, BMP, CBC, ANEU, TROPHS, ADIFF #### [address] [address] Glucose [Mass/Vol] 94 mg/dL Normal 83-110 [facility] Comment on above: Performed By: #### M DW, MG, GFR, BMP, CBC, ANEU, TROPHS, ADIFF #### [address] [address] Potassium [Moles/Vol] 2.9 mmol/L Low 3.5-5.[address] [facility] Comment on above: Performed By: #### M DW, MG, GFR, BMP, CBC, ANEU, TROPHS, ADIFF #### [address] [address] Sodium [Moles/Vol] 141 mmol/L Normal 136-145 [facility] Comment on above: Performed By: #### M DW, MG, GFR, BMP, CBC, ANEU, TROPHS, ADIFF #### [address] [address] Urea nitrogen [Mass/Vol] 17 mg/dL Normal 7-18 [facility] Comment on above: Performed By: #### M DW, MG, GFR, BMP, CBC, ANEU, TROPHS, ADIFF #### [place] [address] CBCon 02-15-2025 Erythrocyte distribution width (RBC) [Ratio] 14.0 % Normal 11.5-15.5 [facility] Comment on above: Performed By: #### M DW, MG, GFR, BMP, CBC, ANEU, TROPHS, ADIFF #### [address] [address] Hematocrit (Bld) [Volume fraction] 40.8 % Normal 34.0-46.0 [facility] Comment on above: Performed By: #### M DW, MG, GFR, BMP, CBC, ANEU, TROPHS, ADIFF #### [address] [address] Hgb 13.8 G/dL Normal 12.0-16.0 [facility] Comment on above: Performed By: #### M DW, MG, GFR, BMP, CBC, ANEU, TROPHS, ADIFF #### [address] [address] MCH (RBC) [Entitic mass] 28.3 pg Normal 27.0-33.0 [facility] Comment on above: Performed By: #### M DW, MG, GFR, BMP, CBC, ANEU, TROPHS, ADIFF #### [address] [address] MCHC 33.8 G/dL Normal 32.0-36.0 [facility] Comment on above: Performed By: #### M DW, MG, GFR, BMP, CBC, ANEU, TROPHS, ADIFF #### [address] [address] MCV (RBC) [Entitic vol] 83.8 fL Normal 80.0-99.0 [facility] Comment on above: Performed By: #### M DW, MG, GFR, BMP, CBC, ANEU, TROPHS, ADIFF #### [address] [address] Platelet 299 10 3/mcL Normal 150-450 [facility] Comment on above: Performed By: #### M DW, MG, GFR, BMP, CBC, ANEU, TROPHS, ADIFF #### [address] [address] Platelet mean volume (Bld) [Entitic vol] 7.9 fL Normal 6.6-10.5 [facility] Comment on above: Performed By: #### M DW, MG, GFR, BMP, CBC, ANEU, TROPHS, ADIFF #### [address] [address] RBC 4.87 10 6/mcL Normal 4.10-5.30 [facility] Comment on above: Performed By: #### M DW, MG, GFR, BMP, CBC, ANEU, TROPHS, ADIFF #### [address] [address] WBC 9.3 10 3/mcL Normal 4.5-10.8 [facility] Comment on above: Performed By: #### M DW, MG, GFR, BMP, CBC, ANEU, TROPHS, ADIFF #### [address] [address] LABORATORYOrdered By: SYSTEM SYSTEM on 02-15-2025 Basophils (Bld) [#/Vol] 0.1 103/mcL Normal 0.0 - 0.3 10^3/mcL AO Workflow SS Basophils/100 WBC (Bld) 1.1 % Normal 0.0 - 2.5 % AO Workflow SS Calcium [Mass/Vol] 9.0 mg/dL Normal 8.4 - 10. 2 mg/dL AO ADM SS Chloride [Moles/Vol] 100 mmol/L Normal 98 - 10 7 mmol/L AO ADM SS CO2 [Moles/Vol] 33 mmol/L High 23 - 31 mmol/L AO ADM SS Creatinine [Mass/Vol] 1.08 mg/dL High 0.51 - 0.95 mg/dL AO ADM SS Electrolyte Balance 8.0 mEq/L Normal 4.0 - 15 .0 mEq/L AO ADM SS Eosinophil, Absolute 0.3 103/mcL Normal 0.0 - 0 .7 10^3/mcL AO Workflow SS Eosinophils/100 WBC (Bld) 3.5 % Normal 0.0 - 6.0 % AO Workflow SS Erythrocyte distribution width (RBC) [Ratio] 14.0 % Normal 11.5 - 15.5 % AO Workflow SS GLOMERULAR FILTRATION RATE/1.73 SQ M.PREDICTED:ARVRAT:PT :SER/PLAS/BLD:QN:CREA TININE-BASED FORMULA (CKD-EPI 2020) 51 ml/min/1.73sqm Invalid Interpretation Code AO Chemistry S Comment on above: Interpretive Data: Stages of Chronic Kidney Disease (CKD) Stage Description eGFR(ml/min/1.73 sq.m.) CKD 1 Normal kidney function or >=90 normal kindney function with possible kidney damage (ex. Proteinuria) CKD 2 Kidney damage with mild loss 60-89 of kidney function CKD 3a Mild to moderate loss of kidney 45-59 function CKD 3b Moderate to severe loss of 30-44 of kindey function CKD 4 Severe loss of kidney function 15-29 CKD 5 Kidney failure <15 Note: (go live 2024) the eGFR calculation was updated to the 2020 CKD-EPI creatinine equation without a race factor to calculate the eGFR results. Glucose [Mass/Vol] 94 mg/dL Normal 83 - 110 mg/dL AO ADM SS Hematocrit (Bld) [Volume fraction] 40.8 % Normal 34.0 - 46.0 % AO Workflow SS Hemoglobin (Bld) [Mass/Vol] 13.8 G/dL Normal 12.0 - 16.0 G/dL AO Workflow SS INR Coag (PPP) [Relative time] 1.2 {INR} Invalid Interpretation Code AO [facility] SS Comment on above: Interpretive Data: Jatinder samano [employer] (CHEST, 1991, 102:[id number]) recommended therapeutic range for oral anticoagulant therapy is: LOW RISK: Prophylaxis of venous thrombosis INR: 2.0-3.0 Treatment of pulmonary embolism 2.0-3.0 Prevention of systemic embolism 2.0-3.0 HIGH RISK: Mechanical prosthetic valves 2.5-3.5 Lymphocytes (Bld) [#/Vol] 1.7 103/mcL Normal 0.9 - 4.3 10^3/mcL AO Workflow SS Lymphocytes/100 WBC (Bld) 17.9 % Low 20.0 - 40.0 % AO Workflow SS MCH (RBC) [Entitic mass] 28.3 pg Normal 27.0 - 33.0 pg AO Workflow SS MCHC 33.8 G/dL Normal 32.0 - 36.0 G/dL AO Workflow SS MCV (RBC) [Entitic vol] 83.8 fL Normal 80.0 - 99.0 fL AO Workflow SS Monocytes (Bld) [#/Vol] 0.7 103/mcL Normal 0.1 - 1.4 10^3/mcL AO Workflow SS Monocytes/100 WBC (Bld) 7.8 % Normal 2.0 - 13.0 % AO Workflow SS Neutrophils (Bld) [#/Vol] 6.5 103/mcL Normal 2.3 - 8.1 10^3/mcL AO Workflow SS Neutrophils/100 WBC (Bld) 69.7 % Normal 50.0 - 75.0 % AO Workflow SS Platelet mean volume (Bld) [Entitic vol] 7.9 fL Normal 6.6 - 10.5 fL AO Workflow SS Platelets (Bld) [#/Vol] 299 103/mcL Normal 150 - 450 10^3/mcL AO Workflow SS Potassium [Moles/Vol] 2.9 mmol/L Low 3.5 - 5.1 mmol/L AO ADM SS PT Coag (PPP) [Time] 14.1 s Normal 9.0 - 1 4.4 seconds AO HemoHub SS RBC (Bld) [#/Vol] 4.87 106/mcL Normal 4.10 - 5.3 0 10^6/mcL AO Workflow SS Sodium [Moles/Vol] 141 mmol/L Normal 136 - 145 mmol/L AO ADM SS Urea nitrogen [Mass/Vol] 17 mg/dL Normal 7 - 18 mg/dL AO ADM SS Urea nitrogen/Creatinine [Mass ratio] 16 ratio Normal 7 - 27 ratio AO ADM SS WBC (Bld) [#/Vol] 9.3 103/mcL Normal 4.5 - 10.8 10^3/mcL AO Workflow SS PROon 02-15-2025 PT Coag (PPP) [Time] 14.1 s Normal 9.0-14.4 [facility] Comment on above: Performed By: #### M DW, MG, GFR, BMP, CBC, ANEU, TROPHS, ADIFF #### [place] [address] [place], [place] [address] [employer] Ratio 1.2 Normal [facility] Comment on above: Result Comment: [employer] (CHEST, 1992, 102:[id number]) recommended therapeutic range for oral anticoagulant therapy is: LOW RISK: Prophylaxis of venous thrombosis INR: 2.0-3.0 Treatment of pulmonary embolism 2.0-3.0 Prevention of systemic embolism 2.0-3.0 HIGH RISK: Mechanical prosthetic valves 2.5-3.5 Performed By: #### M DW, MG, GFR, BMP, CBC, ANEU, TROPHS, ADIFF #### [address] [address] .GFRon 01-11-2025 Estimated Glomerular Filtration Rate 44 ml/min/1.73sqm Normal [facility] Comment on above: Result Comment: Stages of Chronic Kidney Disease (CKD) Stage Description eGFR(ml/min/1.73 sq.m.) CKD 1 Normal kidney function or >=90 normal kindney function with possible kidney damage (ex. Proteinuria) CKD 2 Kidney damage with mild loss 60-89 of kidney function CKD 3a Mild to moderate loss of kidney 45-59 function CKD 3b Moderate to severe loss of 30-44 of kindey function CKD 4 Severe loss of kidney function 15-29 CKD 5 Kidney failure <15 Note: (go live 2024) the eGFR calculation was updated to the 2020 CKD-EPI creatinine equation without a race factor to calculate the eGFR results. Performed By: #### M DW, MG, GFR, BMP, CBC, ANEU, TROPHS, ADIFF #### [place] [address] [place], [place] [address] BMPon 01-11-2025 BUN/Creatinine Ratio 21 ratio Normal 7-27 [facility] Comment on above: Performed By: #### M DW, MG, GFR, BMP, CBC, ANEU, TROPHS, ADIFF #### [place] [address] Calcium [Mass/Vol] 9.3 mg/dL Normal 8.4-10.2 [facility] Comment on above: Performed By: #### M DW, MG, GFR, BMP, CBC, ANEU, TROPHS, ADIFF #### [place] [address] Chloride [Moles/Vol] 104 mmol/L Normal 98-107 [facility] Comment on above: Performed By: #### M DW, MG, GFR, BMP, CBC, ANEU, TROPHS, ADIFF #### [place] [address] CO2 [Moles/Vol] 34 mmol/L High 23-31 [facility] Comment on above: Performed By: #### M DW, MG, GFR, BMP, CBC, ANEU, TROPHS, ADIFF #### [place] [place] [address] Creatinine [Mass/Vol] 1.23 mg/dL High 0.51-0.[address] [facility] Comment on above: Performed By: #### M DW, MG, GFR, BMP, CBC, ANEU, TROPHS, ADIFF #### [place] [address] Electrolyte Balance 5.0 mEq/L Normal 4.0-15.0 [facility] Comment on above: Performed By: #### M DW, MG, GFR, BMP, CBC, ANEU, TROPHS, ADIFF #### [place] [address] Glucose [Mass/Vol] 91 mg/dL Normal 83-110 [facility] Comment on above: Performed By: #### M DW, MG, GFR, BMP, CBC, ANEU, TROPHS, ADIFF #### [place] [address] [place], [place] [address] Potassium [Moles/Vol] 4.5 mmol/L Normal 3.5-5.[address] [facility] Comment on above: Performed By: #### M DW, MG, GFR, BMP, CBC, ANEU, TROPHS, ADIFF #### [place] [address] [place], [place] [address] Sodium [Moles/Vol] 143 mmol/L Normal 136-145 [facility] Comment on above: Performed By: #### M DW, MG, GFR, BMP, CBC, ANEU, TROPHS, ADIFF #### [place] [address] [place], [place] [address] Urea nitrogen [Mass/Vol] 26 mg/dL High 7-18 [facility] Comment on above: Performed By: #### M DW, MG, GFR, BMP, CBC, ANEU, TROPHS, ADIFF #### [address] [address] LABORATORYOrdered By: SYSTEM SYSTEM on 01-11-2025 Calcium [Mass/Vol] 9.3 mg/dL Normal 8.4 - 10. 2 mg/dL AO ADM SS Chloride [Moles/Vol] 104 mmol/L Normal 98 - 10 7 mmol/L AO ADM SS CO2 [Moles/Vol] 34 mmol/L High 23 - 31 mmol/L AO ADM SS Creatinine [Mass/Vol] 1.23 mg/dL High 0.51 - 0.95 mg/dL AO ADM SS Electrolyte Balance 5.0 mEq/L Normal 4.0 - 15 .0 mEq/L AO ADM SS GLOMERULAR FILTRATION RATE/1.73 SQ M.PREDICTED:ARVRAT:PT :SER/PLAS/BLD:QN:CREA TININE-BASED FORMULA (CKD-EPI 2020) 44 ml/min/1.73sqm Invalid Interpretation Code AO Chemistry S Comment on above: Interpretive Data: Stages of Chronic Kidney Disease (CKD) Stage Description eGFR(ml/min/1.73 sq.m.) CKD 1 Normal kidney function or >=90 normal kindney function with possible kidney damage (ex. Proteinuria) CKD 2 Kidney damage with mild loss 60-89 of kidney function CKD 3a Mild to moderate loss of kidney 45-59 function CKD 3b Moderate to severe loss of 30-44 of kindey function CKD 4 Severe loss of kidney function 15-29 CKD 5 Kidney failure <15 Note: (go live 2024) the eGFR calculation was updated to the 2020 CKD-EPI creatinine equation without a race factor to calculate the eGFR results. Glucose [Mass/Vol] 91 mg/dL Normal 83 - 110 mg/dL AO ADM SS Magnesium [Mass/Vol] 2.2 mg/dL Normal 1.8 - 2 .4 mg/dL AO ADM SS Potassium [Moles/Vol] 4.5 mmol/L Normal 3.5 - 5.1 mmol/L AO ADM SS Sodium [Moles/Vol] 143 mmol/L Normal 136 - 145 mmol/L AO ADM SS Urea nitrogen [Mass/Vol] 26 mg/dL High 7 - 18 mg/dL AO ADM SS Urea nitrogen/Creatinine [Mass ratio] 21 ratio Normal 7 - 27 ratio AO ADM SS MGon 01-11-2025 Magnesium [Mass/Vol] 2.2 mg/dL Normal 1.8-2.4 [facility] Comment on above: Performed By: #### M DW, MG, GFR, BMP, CBC, ANEU, TROPHS, ADIFF #### [address] [address] .Auto Diffon 01-01-2025 Basophil, Absolute 0.1 10 3/mcL Normal 0.0-0.3 [facility] Comment on above: Performed By: #### A COLLIN, GFR, CMP, PBNP, CBC, TSH, ADIFF #### [address] [address] Basophils/100 WBC (Bld) 1.3 % Normal 0.0-2.5 [facility] Comment on above: Performed By: #### A COLLIN, GFR, CMP, PBNP, CBC, TSH, ADIFF #### [address] [address] Eosinophil, Absolute 0.3 10 3/mcL Normal 0.0-0.7 [facility] Comment on above: Performed By: #### A COLLIN, GFR, CMP, PBNP, CBC, TSH, ADIFF #### [address] [address] Eosinophils/100 WBC (Bld) 3.4 % Normal 0.0-6.0 [facility] Comment on above: Performed By: #### A COLLIN, GFR, CMP, PBNP, CBC, TSH, ADIFF #### [address] [address] Lymphocyte, Absolute 1.3 10 3/mcL Normal 0.9-4.3 [facility] Comment on above: Performed By: #### A COLLIN, GFR, CMP, PBNP, CBC, TSH, ADIFF #### [address] [address] Lymphocytes/100 WBC (Bld) 13.7 % Low 20.0-40.0 [facility] Comment on above: Performed By: #### A COLLIN, GFR, CMP, PBNP, CBC, TSH, ADIFF #### [address] [address] Monocyte, Absolute 1.0 10 3/mcL Normal 0.1-1.4 [facility] Comment on above: Performed By: #### A COLLIN, GFR, CMP, PBNP, CBC, TSH, ADIFF #### [address] [address] Monocytes/100 WBC (Bld) 11.1 % Normal 2.0-13.0 [facility] Comment on above: Performed By: #### A COLLIN, GFR, CMP, PBNP, CBC, TSH, ADIFF #### [address] [address] Neutrophils/100 WBC (Bld) 70.5 % Normal 50.0-75.0 [facility] Comment on above: Performed By: #### A COLLIN, GFR, CMP, PBNP, CBC, TSH, ADIFF #### [address] [address] .GFRon 01-01-2025 Estimated Glomerular Filtration Rate 43 ml/min/1.73sqm Normal [facility] Comment on above: Result Comment: Stages of Chronic Kidney Disease (CKD) Stage Description eGFR(ml/min/1.73 sq.m.) CKD 1 Normal kidney function or >=90 normal kindney function with possible kidney damage (ex. Proteinuria) CKD 2 Kidney damage with mild loss 60-89 of kidney function CKD 3a Mild to moderate loss of kidney 45-59 function CKD 3b Moderate to severe loss of 30-44 of kindey function CKD 4 Severe loss of kidney function 15-29 CKD 5 Kidney failure <15 Note: (go live 2024) the eGFR calculation was updated to the 2020 CKD-EPI creatinine equation without a race factor to calculate the eGFR results. Performed By: #### M DW, MG, GFR, BMP, CBC, ANEU, TROPHS, ADIFF #### [address] [address] .NEUABSon 01-01-2025 Neutrophil, Absolute 6.5 10 3/mcL Normal 2.3-8.1 [facility] Comment on above: Performed By: #### M DW, MG, GFR, BMP, CBC, ANEU, TROPHS, ADIFF #### [address] [address] CBCon 01-01-2025 Erythrocyte distribution width (RBC) [Ratio] 15.0 % Normal 11.5-15.5 [facility] Comment on above: Performed By: #### A COLLIN, GFR, CMP, PBNP, CBC, TSH, ADIFF #### [address] [address] Hematocrit (Bld) [Volume fraction] 43.3 % Normal 34.0-46.0 [facility] Comment on above: Performed By: #### A COLLIN, GFR, CMP, PBNP, CBC, TSH, ADIFF #### [address] [address] Hgb 14.3 G/dL Normal 12.0-16.0 [facility] Comment on above: Performed By: #### A COLLIN, GFR, CMP, PBNP, CBC, TSH, ADIFF #### [address] [address] MCH (RBC) [Entitic mass] 27.9 pg Normal 27.0-33.0 [facility] Comment on above: Performed By: #### A COLLIN, GFR, CMP, PBNP, CBC, TSH, ADIFF #### [address] [address] MCHC 33.0 G/dL Normal 32.0-36.0 [facility] Comment on above: Performed By: #### A COLLIN, GFR, CMP, PBNP, CBC, TSH, ADIFF #### [address] [address] MCV (RBC) [Entitic vol] 84.5 fL Normal 80.0-99.0 [facility] Comment on above: Performed By: #### A COLLIN, GFR, CMP, PBNP, CBC, TSH, ADIFF #### [address] [address] Platelet 293 10 3/mcL Normal 150-450 [facility] Comment on above: Performed By: #### A COLLIN, GFR, CMP, PBNP, CBC, TSH, ADIFF #### [address] [address] Platelet mean volume (Bld) [Entitic vol] 8.3 fL Normal 6.6-10.5 [facility] Comment on above: Performed By: #### A COLLIN, GFR, CMP, PBNP, CBC, TSH, ADIFF #### [address] [address] RBC 5.13 10 6/mcL Normal 4.10-5.30 [facility] Comment on above: Performed By: #### A COLLIN, GFR, CMP, PBNP, CBC, TSH, ADIFF #### [address] [address] WBC 9.2 10 3/mcL Normal 4.5-10.8 [facility] Comment on above: Performed By: #### A COLLIN, GFR, CMP, PBNP, CBC, TSH, ADIFF #### [place] [id number] CMPon 01-01-2025 Albumin Level 3.7 G/dL Normal 3.4-4.8 [facility] Comment on above: Performed By: #### M DW, MG, GFR, BMP, CBC, ANEU, TROPHS, ADIFF #### [address] [address] Albumin/Globulin [Mass ratio] 1.0 {ratio} Low 1.1-2.5 [facility] Comment on above: Performed By: #### M DW, MG, GFR, BMP, CBC, ANEU, TROPHS, ADIFF #### [address] [address] ALP [Catalytic activity/Vol] 96 U/L Normal 40-135 [facility] Comment on above: Performed By: #### M DW, MG, GFR, BMP, CBC, ANEU, TROPHS, ADIFF #### [address] [address] ALT [Catalytic activity/Vol] 21 U/L Normal 14-59 [facility] Comment on above: Performed By: #### M DW, MG, GFR, BMP, CBC, ANEU, TROPHS, ADIFF #### [address] [address] AST [Catalytic activity/Vol] 12 U/L Normal 10-40 [facility] Comment on above: Performed By: #### M DW, MG, GFR, BMP, CBC, ANEU, TROPHS, ADIFF #### [address] [address] Bili Total 0.3 mg/dL Normal 0.2-1.0 [facility] Comment on above: Result Comment: Use of this assay is not recommended for patients undergoing treatment with eltrombopag due to the potential for falsely elevated results. Performed By: #### M DW, MG, GFR, BMP, CBC, ANEU, TROPHS, ADIFF #### [address] [address] BUN/Creatinine Ratio 21 ratio Normal 7-27 [facility] Comment on above: Performed By: #### M DW, MG, GFR, BMP, CBC, ANEU, TROPHS, ADIFF #### [address] [address] Calcium [Mass/Vol] 9.3 mg/dL Normal 8.4-10.2 [facility] Comment on above: Performed By: #### M DW, MG, GFR, BMP, CBC, ANEU, TROPHS, ADIFF #### [place] [address] Chloride [Moles/Vol] 104 mmol/L Normal 98-107 [facility] Comment on above: Performed By: #### M DW, MG, GFR, BMP, CBC, ANEU, TROPHS, ADIFF #### [place] [address] CO2 [Moles/Vol] 32 mmol/L High 23-31 [facility] Comment on above: Performed By: #### M DW, MG, GFR, BMP, CBC, ANEU, TROPHS, ADIFF #### [place] [address] Creatinine [Mass/Vol] 1.26 mg/dL High 0.51-0.[address] [facility] Comment on above: Performed By: #### M DW, MG, GFR, BMP, CBC, ANEU, TROPHS, ADIFF #### [place] [address] Electrolyte Balance 7.0 mEq/L Normal 4.0-15.0 [facility] Comment on above: Performed By: #### M DW, MG, GFR, BMP, CBC, ANEU, TROPHS, ADIFF #### [place] [address] Globulin 3.6 G/dL Normal 2.7-4.4 [facility] Comment on above: Performed By: #### M DW, MG, GFR, BMP, CBC, ANEU, TROPHS, ADIFF #### [place] [address] Glucose [Mass/Vol] 55 mg/dL Low 83-110 [facility] Comment on above: Performed By: #### M DW, MG, GFR, BMP, CBC, ANEU, TROPHS, ADIFF #### [address] [address] Potassium [Moles/Vol] 4.4 mmol/L Normal 3.5-5.[address] [facility] Comment on above: Performed By: #### M DW, MG, GFR, BMP, CBC, ANEU, TROPHS, ADIFF #### [address] [address] Sodium [Moles/Vol] 143 mmol/L Normal 136-145 [facility] Comment on above: Performed By: #### M DW, MG, GFR, BMP, CBC, ANEU, TROPHS, ADIFF #### [address] [address] Total Protein 7.3 G/dL Normal 6.4-8.2 [facility] Comment on above: Performed By: #### M DW, MG, GFR, BMP, CBC, ANEU, TROPHS, ADIFF #### [address] [address] Urea nitrogen [Mass/Vol] 26 mg/dL High 7-18 [facility] Comment on above: Performed By: #### M DW, MG, GFR, BMP, CBC, ANEU, TROPHS, ADIFF #### [address] [address] LABORATORYOrdered By: Óscar Srivastava on 01-01-2025 Color (U) Yellow (01/01/25 10:43 AM) Normal Yellow AO Auto Urine SS Glucose (U) [Mass/Vol] mg/dL Invalid Interpretation Code Negative AO Auto Urine SS Ketones Ql (U) Negative Normal Negative AO Auto Urine SS UA Appear Clear (01/01/25 10:43 AM) Normal Clear AO Auto Urine SS UA Bili Negative (01/01/25 10:43 AM) Normal Negative AO Auto Urine SS UA Blood Negative (01/01/25 10:43 AM) Normal Negative AO Auto Urine SS UA Leuk Est Negative (01/01/25 10:43 AM) Normal Negative AO Auto Urine SS UA Nitrite Negative (01/01/25 10:43 AM) Normal Negative AO Auto Urine SS UA pH 6.0 (01/01/25 10:43 AM) Normal 5.0 - 8.0 AO Auto Urine SS UA Protein Negative Normal Negative AO Auto Urine SS UA Spec Grav 1.015 (01/01/25 10:43 AM) Normal 1.015-1.025 AO Auto Urine SS UA Specimen Type Clean Catch (01/01/25 10:43 AM) Normal AO Auto Urine SS UA Urobilinogen 0.2 E.U./dL Normal 0.2-1.0 AO Auto Urine SS LABORATORYOrdered By: SYSTEM SYSTEM on 01-01-2025 Albumin BCP dye [Mass/Vol] 3.7 G/dL Normal 3.4 - 4.8 G/dL AO ADM SS Albumin/Globulin [Mass ratio] 1.0 {ratio} Low 1.1 - 2.5 ratio AO ADM SS ALP [Catalytic activity/Vol] 96 U/L Normal 40 - 135 U/L AO ADM SS ALT With P-5'-P [Catalytic activity/Vol] 21 U/L Normal 14 - 59 U/L AO ADM SS AST With P-5'-P [Catalytic activity/Vol] 12 U/L Normal 10 - 40 U/L AO ADM SS Basophils (Bld) [#/Vol] 0.1 103/mcL Normal 0.0 - 0.3 10^3/mcL AO Workflow SS Basophils/100 WBC (Bld) 1.3 % Normal 0.0 - 2.5 % AO Workflow SS Bilirubin [Mass/Vol] 0.3 mg/dL Normal 0.2 - 1 .0 mg/dL AO ADM SS Comment on above: Interpretive Data: U se of this assay is not recommended for patients undergoing treatment with eltrombopag due to the potential for falsely elevated results. Calcium [Mass/Vol] 9.3 mg/dL Normal 8.4 - 10. 2 mg/dL AO ADM SS Chloride [Moles/Vol] 104 mmol/L Normal 98 - 10 7 mmol/L AO ADM SS CO2 [Moles/Vol] 32 mmol/L High 23 - 31 mmol/L AO ADM SS Creatinine [Mass/Vol] 1.26 mg/dL High 0.51 - 0.95 mg/dL AO ADM SS Electrolyte Balance 7.0 mEq/L Normal 4.0 - 15 .0 mEq/L AO ADM SS Eosinophil, Absolute 0.3 103/mcL Normal 0.0 - 0 .7 10^3/mcL AO Workflow SS Eosinophils/100 WBC (Bld) 3.4 % Normal 0.0 - 6.0 % AO Workflow SS Erythrocyte distribution width (RBC) [Ratio] 15.0 % Normal 11.5 - 15.5 % AO Workflow SS Estimated Glomerular Filtration Rate 43 ml/min/1.73sqm Invalid Interpretation Code AO Chemistry S Comment on above: Interpretive Data: Stages of Chronic Kidney Disease (CKD) Stage Description eGFR(ml/min/1.73 sq.m.) CKD 1 Normal kidney function or >=90 normal kindney function with possible kidney damage (ex. Proteinuria) CKD 2 Kidney damage with mild loss 60-89 of kidney function CKD 3a Mild to moderate loss of kidney 45-59 function CKD 3b Moderate to severe loss of 30-44 of kindey function CKD 4 Severe loss of kidney function 15-29 CKD 5 Kidney failure <15 Note: (go live 2024) the eGFR calculation was updated to the 2020 CKD-EPI creatinine equation without a race factor to calculate the eGFR results. Globulin 3.6 G/dL Normal 2.7 - 4.4 G/dL AO ADM SS Glucose [Mass/Vol] 55 mg/dL Low 83 - 110 mg/dL AO ADM SS Hematocrit (Bld) [Volume fraction] 43.3 % Normal 34.0 - 46.0 % AO Workflow SS Hemoglobin (Bld) [Mass/Vol] 14.3 G/dL Normal 12.0 - 16.0 G/dL AO Workflow SS Lymphocytes (Bld) [#/Vol] 1.3 103/mcL Normal 0.9 - 4.3 10^3/mcL AO Workflow SS Lymphocytes/100 WBC (Bld) 13.7 % Low 20.0 - 40.0 % AO Workflow SS MCH (RBC) [Entitic mass] 27.9 pg Normal 27.0 - 33.0 pg AO Workflow SS MCHC 33.0 G/dL Normal 32.0 - 36.0 G/dL AO Workflow SS MCV (RBC) [Entitic vol] 84.5 fL Normal 80.0 - 99.0 fL AO Workflow SS Monocytes (Bld) [#/Vol] 1.0 103/mcL Normal 0.1 - 1.4 10^3/mcL AO Workflow SS Monocytes/100 WBC (Bld) 11.1 % Normal 2.0 - 13.0 % AO Workflow SS Natriuretic peptide.B prohormone N-Terminal [Mass/Vol] 1625 pg/mL High 0 - 450 pg/mL AO ADM SS Comment on above: Interpretive Data: N T-proBNP results of less than 300 pg/mL effectively rules out acute congestive heart failure with 99% negative predictive value. Neutrophils (Bld) [#/Vol] 6.5 103/mcL Normal 2.3 - 8.1 10^3/mcL AO Workflow SS Neutrophils/100 WBC (Bld) 70.5 % Normal 50.0 - 75.0 % AO Workflow SS Platelet mean volume (Bld) [Entitic vol] 8.3 fL Normal 6.6 - 10.5 fL AO Workflow SS Platelets (Bld) [#/Vol] 293 103/mcL Normal 150 - 450 10^3/mcL AO Workflow SS Potassium [Moles/Vol] 4.4 mmol/L Normal 3.5 - 5.1 mmol/L AO ADM SS Protein [Mass/Vol] 7.3 G/dL Normal 6.4 - 8.2 G/dL AO ADM SS RBC (Bld) [#/Vol] 5.13 106/mcL Normal 4.10 - 5.3 0 10^6/mcL AO Workflow SS Sodium [Moles/Vol] 143 mmol/L Normal 136 - 145 mmol/L AO ADM SS TSH Qn 1.75 m[IU]/L Normal 0.36 - 3.74 mcIU/mL AO ADM SS Urea nitrogen [Mass/Vol] 26 mg/dL High 7 - 18 mg/dL AO ADM SS Urea nitrogen/Creatinine [Mass ratio] 21 ratio Normal 7 - 27 ratio AO ADM SS WBC (Bld) [#/Vol] 9.2 103/mcL Normal 4.5 - 10.8 10^3/mcL AO Workflow SS PBNPon 01-01-2025 Natriuretic peptide B (Bld) [Mass/Vol] 1625 pg/mL High 0-450 [facility] Comment on above: Result Comment: NT-p roBNP results of less than 300 pg/mL effectively rules out acute congestive heart failure with 99% negative predictive value. Performed By: #### M DW, MG, GFR, BMP, CBC, ANEU, TROPHS, ADIFF #### [address] [address] TSHon 01-01-2025 TSH Qn 1.75 m[IU]/L Normal 0.36-3.74 [facility] Comment on above: Performed By: #### M DW, MG, GFR, BMP, CBC, ANEU, TROPHS, ADIFF #### [address] [address] UAon 01-01-2025 Color (U) Yellow Normal Yellow [facility] Comment on above: Performed By: #### M DW, MG, GFR, BMP, CBC, ANEU, TROPHS, ADIFF #### [address] [address] Glucose (U) [Mass/Vol] mg/dL Abnormal Negative [facility] Comment on above: Performed By: #### M DW, MG, GFR, BMP, CBC, ANEU, TROPHS, ADIFF #### [address] [address] Ketones Ql (U) Negative Normal Negative [facility] Comment on above: Performed By: #### M DW, MG, GFR, BMP, CBC, ANEU, TROPHS, ADIFF #### [address] [address] UA Appear Clear Normal Clear [facility] Comment on above: Performed By: #### M DW, MG, GFR, BMP, CBC, ANEU, TROPHS, ADIFF #### [address] [address] UA Blood Negative Normal Negative [facility] Comment on above: Performed By: #### M DW, MG, GFR, BMP, CBC, ANEU, TROPHS, ADIFF #### [address] [address] UA Leuk Est Negative Normal Negative [facility] Comment on above: Performed By: #### M DW, MG, GFR, BMP, CBC, ANEU, TROPHS, ADIFF #### [place] [address] UA Nitrite Negative Normal Negative [facility] Comment on above: Performed By: #### M DW, MG, GFR, BMP, CBC, ANEU, TROPHS, ADIFF #### [address] [address] UA pH 6.0 Normal 5.0 - 8.0 [facility] Comment on above: Performed By: #### M DW, MG, GFR, BMP, CBC, ANEU, TROPHS, ADIFF #### [address] [address] UA Protein Negative Normal Negative [facility] Comment on above: Performed By: #### M DW, MG, GFR, BMP, CBC, ANEU, TROPHS, ADIFF #### [address] [address] UA Spec Grav 1.015 Normal 1.015-1.025 [facility] Comment on above: Performed By: #### M DW, MG, GFR, BMP, CBC, ANEU, TROPHS, ADIFF #### [place] [address] UA Specimen Type Clean Catch Normal [facility] Comment on above: Performed By: #### M DW, MG, GFR, BMP, CBC, ANEU, TROPHS, ADIFF #### [place] [address] UA Urobilinogen 0.2 E.U./dL Normal 0.2-1.0 [facility] Comment on above: Performed By: #### M DW, MG, GFR, BMP, CBC, ANEU, TROPHS, ADIFF #### [address] [address] Urobilinogen (U) [Mass/Vol] Negative Normal Negative [facility] Comment on above: Performed By: #### M DW, MG, GFR, BMP, CBC, ANEU, TROPHS, ADIFF #### [place] [address] XR CHEST 2 VIEWSon 5 XR CHEST 2 VIEWS ORIGINAL EXAMINATION: TWO XRAY VIEWS OF THE CHEST TECHNIQUE: CHEST AP/PA and LATERAL COMPARISON: CXR from 08/29/2024 HISTORY: ORDERING SYSTEM PROVIDED HISTORY: Reason for Exam: SOB FINDINGS: Biapical pleural thickening and scarring. Cardiomediastinal silhouette is stable. Aortic arch calcification. There is no overt edema. Streaky bibasilar infiltrates more pronounced on the left. No pleural effusion. No pneumothorax. Chronic compression deformities of T10 and T12 seen dating back to chest CT on 10/21/2021. IMPRESSION: Streaky bibasilar infiltrates more pronounced on the left, atelectasis and or consolidation. Chronic thoracic compression deformities. Biapical pleural thickening scarring. Interpreted by: Shannan Celis Preliminary Report By: Rylan Gan Electronically signed By Shannan Celis Dictated Date: 01/01/2025 2:30:53 PM Prelim Date: 01/01/2025 3:15:11 PM Sign Date: 01/01/2025 3:15:11 PM Ordering Provider: ASIM DIEHL [facility] .GFRon 09-12-2024 Estimated Glomerular Filtration Rate 49 ml/min/1.73sqm [facility] Comment on above: Result Comment: Stages of Chronic Kidney Disease (CKD) Stage Description eGFR(ml/min/1.73 sq.m.) CKD 1 Normal kidney function or >=90 normal kindney function with possible kidney damage (ex. Proteinuria) CKD 2 Kidney damage with mild loss 60-89 of kidney function CKD 3a Mild to moderate loss of kidney 45-59 function CKD 3b Moderate to severe loss of 30-44 of kindey function CKD 4 Severe loss of kidney function 15-29 CKD 5 Kidney failure <15 Note: (go live 2024) the eGFR calculation was updated to the 2020 CKD-EPI creatinine equation without a race factor to calculate the eGFR results. Performed By: #### A COLLIN, GFR, CMP, PBNP, CBC, TSH, ADIFF #### [facility] [address] [place], [place] [address] BMPon 09-12-2024 BUN/Creatinine Ratio 22 ratio Normal 7-27 [facility] Comment on above: Performed By: #### A COLLIN, GFR, CMP, PBNP, CBC, TSH, ADIFF #### [facility] [address] [place], [place] [address] Calcium [Mass/Vol] 8.5 mg/dL Normal 8.4-10.2 [facility] Comment on above: Performed By: #### A COLLIN, GFR, CMP, PBNP, CBC, TSH, ADIFF #### [place] [address] Chloride [Moles/Vol] 103 mmol/L Normal 98-107 [facility] Comment on above: Performed By: #### A COLLIN, GFR, CMP, PBNP, CBC, TSH, ADIFF #### [place] [address] CO2 [Moles/Vol] 30 mmol/L Normal 23-31 [facility] Comment on above: Performed By: #### A COLLIN, GFR, CMP, PBNP, CBC, TSH, ADIFF #### [place] [address] Creatinine [Mass/Vol] 1.12 mg/dL High 0.51-0.[address] [facility] Comment on above: Performed By: #### A COLLIN, GFR, CMP, PBNP, CBC, TSH, ADIFF #### [place] [address] Electrolyte Balance 7.0 mEq/L Normal 4.0-15.0 [facility] Comment on above: Performed By: #### A COLLIN, GFR, CMP, PBNP, CBC, TSH, ADIFF #### [place] [address] Glucose [Mass/Vol] 84 mg/dL Normal 83-110 [facility] Comment on above: Performed By: #### A COLLIN, GFR, CMP, PBNP, CBC, TSH, ADIFF #### [place] [address] Potassium [Moles/Vol] 4.1 mmol/L Normal 3.5-5.[address] [facility] Comment on above: Performed By: #### A COLLIN, GFR, CMP, PBNP, CBC, TSH, ADIFF #### [place] [address] Sodium [Moles/Vol] 140 mmol/L Normal 136-145 [facility] Comment on above: Performed By: #### A COLLIN, GFR, CMP, PBNP, CBC, TSH, ADIFF #### [facility] [address] [place], [place] [address] Urea nitrogen [Mass/Vol] 25 mg/dL High 7-18 [facility] Comment on above: Performed By: #### A COLLIN, GFR, CMP, PBNP, CBC, TSH, ADIFF #### [place] [address] [place], [place] [address] CAIONon 09-12-2024 Calcium Ionized 1.10 mmol/L Low 1.12-1.32 [facility] Comment on above: Performed By: #### A COLLIN, GFR, CMP, PBNP, CBC, TSH, ADIFF #### [place] [address] [place], [place] [address] LABORATORYOrdered By: SYSTEM SYSTEM on 09-12-2024 25-hydroxyvitamin D3 [Mass/Vol] 17.6 ng/mL Invalid Interpretation Code AO ADM SS Comment on above: Interpretive Data: I nterpretive Values Based on Total 25(OH) Vitamin D: Deficient <20 ng/mL Insufficient 20 - <30 ng/mL Sufficient 30-100 ng/mL Calcium [Mass/Vol] 8.5 mg/dL Normal 8.4 - 10. 2 mg/dL AO ADM SS Chloride [Moles/Vol] 103 mmol/L Normal 98 - 10 7 mmol/L AO ADM SS CO2 [Moles/Vol] 30 mmol/L Normal 23 - 31 mmol/L AO ADM SS Creatinine [Mass/Vol] 1.12 mg/dL High 0.51 - 0.95 mg/dL AO ADM SS Electrolyte Balance 7.0 mEq/L Normal 4.0 - 15 .0 mEq/L AO ADM SS Estimated Glomerular Filtration Rate 49 ml/min/1.73sqm Invalid Interpretation Code AO Chemistry S Comment on above: Interpretive Data: Stages of Chronic Kidney Disease (CKD) Stage Description eGFR(ml/min/1.73 sq.m.) CKD 1 Normal kidney function or >=90 normal kindney function with possible kidney damage (ex. Proteinuria) CKD 2 Kidney damage with mild loss 60-89 of kidney function CKD 3a Mild to moderate loss of kidney 45-59 function CKD 3b Moderate to severe loss of 30-44 of kindey function CKD 4 Severe loss of kidney function 15-29 CKD 5 Kidney failure <15 Note: (go live 2024) the eGFR calculation was updated to the 2020 CKD-EPI creatinine equation without a race factor to calculate the eGFR results. Glucose [Mass/Vol] 84 mg/dL Normal 83 - 110 mg/dL AO ADM SS Magnesium [Mass/Vol] 2.3 mg/dL Normal 1.8 - 2 .4 mg/dL AO ADM SS Phosphate [Mass/Vol] 4.2 mg/dL High 2.3 - 4 .1 mg/dL AO ADM SS Potassium [Moles/Vol] 4.1 mmol/L Normal 3.5 - 5.1 mmol/L AO ADM SS Sodium [Moles/Vol] 140 mmol/L Normal 136 - 145 mmol/L AO ADM SS Urea nitrogen [Mass/Vol] 25 mg/dL High 7 - 18 mg/dL AO ADM SS Urea nitrogen/Creatinine [Mass ratio] 22 ratio Normal 7 - 27 ratio AO ADM SS LABORATORYOrdered By: Jessica Valle on 09-12-2024 Calcium Ionized 1.10 mmol/L Low 1.12 - 1.32 mmol/L AO Rapid Comm SS MGon 09-12-2024 Magnesium [Mass/Vol] 2.3 mg/dL Normal 1.8-2.4 [facility] Comment on above: Performed By: #### A COLLIN, GFR, CMP, PBNP, CBC, TSH, ADIFF #### [address] [address] PHOSon 09-12-2024 Phosphate [Mass/Vol] 4.2 mg/dL High 2.3-4.1 [facility] Comment on above: Performed By: #### A COLLIN, GFR, CMP, PBNP, CBC, TSH, ADIFF #### [address] [address] VIDHon 09-12-2024 Vit. D 25-Hydroxy 17.6 ng/mL Normal [facility] Comment on above: Result Comment: Inte rpretive Values Based on Total 25(OH) Vitamin D: Deficient <20 ng/mL Insufficient 20 - <30 ng/mL Sufficient 30-100 ng/mL Performed By: #### A COLLIN, GFR, CMP, PBNP, CBC, TSH, ADIFF #### [place] [address] [address] .Auto Diffon 09-01-2024 Basophil, Absolute 0.1 10 3/mcL Normal 0.0-0.3 [facility] Comment on above: Performed By: #### G FR, BMP #### [address] [address] Basophils/100 WBC (Bld) 0.9 % Normal 0.0-2.5 [facility] Comment on above: Performed By: #### G FR, BMP #### [address] [address] Eosinophil, Absolute 0.3 10 3/mcL Normal 0.0-0.7 [facility] Comment on above: Performed By: #### G FR, BMP #### [address] [address] Eosinophils/100 WBC (Bld) 3.5 % Normal 0.0-6.0 [facility] Comment on above: Performed By: #### G FR, BMP #### [address] [address] Lymphocyte, Absolute 0.9 10 3/mcL Normal 0.9-4.3 [facility] Comment on above: Performed By: #### G FR, BMP #### [address] [address] Lymphocytes/100 WBC (Bld) 11.9 % Low 20.0-40.0 [facility] Comment on above: Performed By: #### G FR, BMP #### [address] [address] Monocyte, Absolute 0.9 10 3/mcL Normal 0.1-1.4 [facility] Comment on above: Performed By: #### G FR, BMP #### [address] [address] Monocytes/100 WBC (Bld) 12.2 % Normal 2.0-13.0 [facility] Comment on above: Performed By: #### G , BMP #### [address] [address] Neutrophils/100 WBC (Bld) 71.5 % Normal 50.0-75.0 [facility] Comment on above: Performed By: #### Ed WAGNER, BMP #### [address] [address] .GFRon 09-01-2024 Estimated Glomerular Filtration Rate 45 ml/min/1.73sqm Normal [facility] Comment on above: Result Comment: Stages of Chronic Kidney Disease (CKD) Stage Description eGFR(ml/min/1.73 sq.m.) CKD 1 Normal kidney function or >=90 normal kindney function with possible kidney damage (ex. Proteinuria) CKD 2 Kidney damage with mild loss 60-89 of kidney function CKD 3a Mild to moderate loss of kidney 45-59 function CKD 3b Moderate to severe loss of 30-44 of kindey function CKD 4 Severe loss of kidney function 15-29 CKD 5 Kidney failure <15 Note: (go live 2024) the eGFR calculation was updated to the 2020 CKD-EPI creatinine equation without a race factor to calculate the eGFR results. Performed By: #### G , BMP #### [address] [address] .NEUABSon 09-01-2024 Neutrophil, Absolute 5.4 10 3/mcL Normal 2.3-8.1 [facility] Comment on above: Performed By: #### Ed , BMP #### [address] [address] [facility] BUN/Creatinine Ratio 22.5 ratio High 10.0-22.0 [facility] Comment on above: Performed By: #### Ed WAGNER, BMP #### [address] [address] Calcium [Mass/Vol] 7.5 mg/dL Low 8.7-10.4 [facility] Comment on above: Performed By: #### Ed WAGNER, BMP #### [address] [address] Chloride [Moles/Vol] 100 mmol/L Normal 98-110 [facility] Comment on above: Performed By: #### Ed WAGNER, BMP #### [address] [address] CO2 [Moles/Vol] 30 mmol/L Normal 22-32 [facility] Comment on above: Performed By: #### G FR, BMP #### [address] [address] Creatinine [Mass/Vol] 1.20 mg/dL Normal 0.50-1.20 [facility] Comment on above: Result Comment: Test ing performed on [email or web address] analyzer using enzymatic creatinine methodology. Performed By: #### Ed WAGNER, BMP #### [place] [id number] Electrolyte Balance 7.0 mEq/L Normal 4.0-15.0 [facility] Comment on above: Performed By: #### Ed WAGNER, BMP #### [place] [id number] Glucose [Mass/Vol] 84 mg/dL Normal 82-115 [facility] Comment on above: Performed By: #### Ed WAGNER, BMP #### [address] [address] Potassium [Moles/Vol] 3.8 mmol/L Normal 3.5-5.0 [facility] Comment on above: Performed By: #### Ed WAGNER, BMP #### [address] [address] Sodium [Moles/Vol] 137 mmol/L Normal 136-145 [facility] Comment on above: Performed By: #### Ed FR, BMP #### [address] [address] Urea nitrogen [Mass/Vol] 27.0 mg/dL High 8.0-22.0 [facility] Comment on above: Performed By: #### G FR, BMP #### [address] [address] CBCon 09-01-2024 Erythrocyte distribution width (RBC) [Ratio] 13.6 % Normal 11.5-15.5 [facility] Comment on above: Performed By: #### G FR, BMP #### [place] [address] Hematocrit (Bld) [Volume fraction] 32.8 % Low 34.0-46.0 [facility] Comment on above: Performed By: #### G FR, BMP #### [place] [address] Hgb 11.3 G/dL Low 12.0-16.0 [facility] Comment on above: Performed By: #### G FR, BMP #### [place] [address] MCH (RBC) [Entitic mass] 30.1 pg Normal 27.0-33.0 [facility] Comment on above: Performed By: #### G FR, BMP #### [place] [address] MCHC 34.4 G/dL Normal 32.0-36.0 [facility] Comment on above: Performed By: #### G FR, BMP #### [place] [address] MCV (RBC) [Entitic vol] 87.4 fL Normal 80.0-99.0 [facility] Comment on above: Performed By: #### G FR, BMP #### [place] [address] Platelet 284 10 3/mcL Normal 150-450 [facility] Comment on above: Performed By: #### G FR, BMP #### [place] [address] Platelet mean volume (Bld) [Entitic vol] 8.2 fL Normal 6.6-10.5 [facility] Comment on above: Performed By: #### G FR, BMP #### [place] [address] RBC 3.75 10 6/mcL Low 4.10-5.30 [facility] Comment on above: Performed By: #### G FR, BMP #### [place] [address] WBC 7.6 10 3/mcL Normal 4.5-10.8 [facility] Comment on above: Performed By: #### G FR, BMP #### [address] [address] MGon 09-01-2024 Magnesium [Mass/Vol] 2.5 mg/dL High 1.6-2.4 [facility] Comment on above: Performed By: #### G FR, BMP #### [address] [address] .Auto Diffon 08-31-2024 Basophil, Absolute 0.1 10 3/mcL Normal 0.0-0.3 [facility] Comment on above: Performed By: #### A COLLIN, MG, BMP, ADIFF, GFR, CBC, HFP #### [address] [address] Basophils/100 WBC (Bld) 1.2 % Normal 0.0-2.5 [facility] Comment on above: Performed By: #### A COLLIN, MG, BMP, ADIFF, GFR, CBC, HFP #### [address] [address] Eosinophil, Absolute 0.3 10 3/mcL Normal 0.0-0.7 [facility] Comment on above: Performed By: #### A COLLIN, MG, BMP, ADIFF, GFR, CBC, HFP #### [address] [address] Eosinophils/100 WBC (Bld) 3.4 % Normal 0.0-6.0 [facility] Comment on above: Performed By: #### A COLLIN, MG, BMP, ADIFF, GFR, CBC, HFP #### [address] [address] Lymphocyte, Absolute 1.1 10 3/mcL Normal 0.9-4.3 [facility] Comment on above: Performed By: #### A COLLIN, MG, BMP, ADIFF, GFR, CBC, HFP #### [address] [address] Lymphocytes/100 WBC (Bld) 13.9 % Low 20.0-40.0 [facility] Comment on above: Performed By: #### A COLLIN, MG, BMP, ADIFF, GFR, CBC, HFP #### [address] [address] Monocyte, Absolute 1.0 10 3/mcL Normal 0.1-1.4 [facility] Comment on above: Performed By: #### A COLLIN, MG, BMP, ADIFF, GFR, CBC, HFP #### [address] [address] Monocytes/100 WBC (Bld) 12.2 % Normal 2.0-13.0 [facility] Comment on above: Performed By: #### A COLLIN, MG, BMP, ADIFF, GFR, CBC, HFP #### [address] [address] Neutrophils/100 WBC (Bld) 69.3 % Normal 50.0-75.0 [facility] Comment on above: Performed By: #### A COLLIN, MG, BMP, ADIFF, GFR, CBC, HFP #### [place] [id number] .GFRon 08-31-2024 Estimated Glomerular Filtration Rate 39 ml/min/1.73sqm Normal [facility] Comment on above: Result Comment: Stages of Chronic Kidney Disease (CKD) Stage Description eGFR(ml/min/1.73 sq.m.) CKD 1 Normal kidney function or >=90 normal kindney function with possible kidney damage (ex. Proteinuria) CKD 2 Kidney damage with mild loss 60-89 of kidney function CKD 3a Mild to moderate loss of kidney 45-59 function CKD 3b Moderate to severe loss of 30-44 of kindey function CKD 4 Severe loss of kidney function 15-29 CKD 5 Kidney failure <15 Note: (go live 2024) the eGFR calculation was updated to the 2020 CKD-EPI creatinine equation without a race factor to calculate the eGFR results. Performed By: #### A COLLIN, MG, BMP, ADIFF, GFR, CBC, HFP #### [address] [address] .NEUABSon 08-31-2024 Neutrophil, Absolute 5.4 10 3/mcL Normal 2.3-8.1 [facility] Comment on above: Performed By: #### A COLLIN, MG, BMP, ADIFF, GFR, CBC, HFP #### [address] [address] BMPon 08-31-2024 BUN/Creatinine Ratio 23.0 ratio High 10.0-22.0 [facility] Comment on above: Performed By: #### A COLLIN, MG, BMP, ADIFF, GFR, CBC, HFP #### [place] [id number] Calcium [Mass/Vol] 7.5 mg/dL Low 8.7-10.4 [facility] Comment on above: Performed By: #### A COLLIN, MG, BMP, ADIFF, GFR, CBC, HFP #### [place] [address] Chloride [Moles/Vol] 101 mmol/L Normal 98-110 [facility] Comment on above: Performed By: #### A COLLIN, MG, BMP, ADIFF, GFR, CBC, HFP #### [place] [id number] CO2 [Moles/Vol] 30 mmol/L Normal 22-32 [facility] Comment on above: Performed By: #### A COLLIN, MG, BMP, ADIFF, GFR, CBC, HFP #### [place] [address] Creatinine [Mass/Vol] 1.35 mg/dL High 0.50-1.20 [facility] Comment on above: Result Comment: Test ing performed on [email or web address] analyzer using enzymatic creatinine methodology. Performed By: #### A COLLIN, MG, BMP, ADIFF, GFR, CBC, HFP #### [place] [id number] Electrolyte Balance 8.0 mEq/L Normal 4.0-15.0 [facility] Comment on above: Performed By: #### A COLLIN, MG, BMP, ADIFF, GFR, CBC, HFP #### [place] [id number] Glucose [Mass/Vol] 87 mg/dL Normal 82-115 [facility] Comment on above: Performed By: #### A COLLIN, MG, BMP, ADIFF, GFR, CBC, HFP #### [place] [id number] Potassium [Moles/Vol] 3.9 mmol/L Normal 3.5-5.0 [facility] Comment on above: Performed By: #### A COLLIN, MG, BMP, ADIFF, GFR, CBC, HFP #### [place] [id number] Sodium [Moles/Vol] 139 mmol/L Normal 136-145 [facility] Comment on above: Performed By: #### A COLLIN, MG, BMP, ADIFF, GFR, CBC, HFP #### [place] [address] Urea nitrogen [Mass/Vol] 31.0 mg/dL High 8.0-22.0 [facility] Comment on above: Performed By: #### A COLLIN, MG, BMP, ADIFF, GFR, CBC, HFP #### [place] [id number] CBCon 08-31-2024 Erythrocyte distribution width (RBC) [Ratio] 13.4 % Normal 11.5-15.5 [facility] Comment on above: Performed By: #### A COLLIN, MG, BMP, ADIFF, GFR, CBC, HFP #### [place] [address] Hematocrit (Bld) [Volume fraction] 33.4 % Low 34.0-46.0 [facility] Comment on above: Performed By: #### A COLLIN, MG, BMP, ADIFF, GFR, CBC, HFP #### [place] [address] Hgb 11.2 G/dL Low 12.0-16.0 [facility] Comment on above: Performed By: #### A COLLIN, MG, BMP, ADIFF, GFR, CBC, HFP #### [place] [address] MCH (RBC) [Entitic mass] 29.9 pg Normal 27.0-33.0 [facility] Comment on above: Performed By: #### A COLLIN, MG, BMP, ADIFF, GFR, CBC, HFP #### [address] [address] MCHC 33.5 G/dL Normal 32.0-36.0 [facility] Comment on above: Performed By: #### A COLLIN, MG, BMP, ADIFF, GFR, CBC, HFP #### [place] [address] MCV (RBC) [Entitic vol] 89.5 fL Normal 80.0-99.0 [facility] Comment on above: Performed By: #### A COLLIN, MG, BMP, ADIFF, GFR, CBC, HFP #### [place] [address] Platelet 271 10 3/mcL Normal 150-450 [facility] Comment on above: Performed By: #### A COLLIN, MG, BMP, ADIFF, GFR, CBC, HFP #### [place] [address] Platelet mean volume (Bld) [Entitic vol] 7.9 fL Normal 6.6-10.5 [facility] Comment on above: Performed By: #### A COLLIN, MG, BMP, ADIFF, GFR, CBC, HFP #### [place] [id number] RBC 3.73 10 6/mcL Low 4.10-5.30 [facility] Comment on above: Performed By: #### A COLLIN, MG, BMP, ADIFF, GFR, CBC, HFP #### [place] [id number] WBC 7.8 10 3/mcL Normal 4.5-10.8 [facility] Comment on above: Performed By: #### A COLLIN, MG, BMP, ADIFF, GFR, CBC, HFP #### [place] [address] MGon 08-31-2024 Magnesium [Mass/Vol] 2.5 mg/dL High 1.6-2.4 [facility] Comment on above: Performed By: #### A COLLIN, MG, BMP, ADIFF, GFR, CBC, HFP #### [address] [address] .GFRon 08-30-2024 Estimated Glomerular Filtration Rate 34 ml/min/1.73sqm [facility] Comment on above: Result Comment: Stages of Chronic Kidney Disease (CKD) Stage Description eGFR(ml/min/1.73 sq.m.) CKD 1 Normal kidney function or >=90 normal kindney function with possible kidney damage (ex. Proteinuria) CKD 2 Kidney damage with mild loss 60-89 of kidney function CKD 3a Mild to moderate loss of kidney 45-59 function CKD 3b Moderate to severe loss of 30-44 of kindey function CKD 4 Severe loss of kidney function 15-29 CKD 5 Kidney failure <15 Note: ( live 05/15/2024) the eGFR calculation was updated to the 2020 CKD-EPI creatinine equation without a race factor to calculate the eGFR results. Performed By: #### G FR, BMP #### [place] [address] Estimated Glomerular Filtration Rate 42 ml/min/1.73sqm [facility] Comment on above: Result Comment: Stages of Chronic Kidney Disease (CKD) Stage Description eGFR(ml/min/1.73 sq.m.) CKD 1 Normal kidney function or >=90 normal kindney function with possible kidney damage (ex. Proteinuria) CKD 2 Kidney damage with mild loss 60-89 of kidney function CKD 3a Mild to moderate loss of kidney 45-59 function CKD 3b Moderate to severe loss of 30-44 of kindey function CKD 4 Severe loss of kidney function 15-29 CKD 5 Kidney failure <15 Note: ( live 05/15/2024) the eGFR calculation was updated to the 2020 CKD-EPI creatinine equation without a race factor to calculate the eGFR results. Performed By: #### A COLLIN, MG, BMP, ADIFF, GFR, CBC, HFP #### [address] [address] [facility] BUN/Creatinine Ratio 21.3 ratio Normal 10.0-22.0 [facility] Comment on above: Performed By: #### A COLLIN, MG, BMP, ADIFF, GFR, CBC, HFP #### [place] [address] Calcium [Mass/Vol] 7.9 mg/dL Low 8.7-10.4 [facility] Comment on above: Performed By: #### A COLLIN, MG, BMP, ADIFF, GFR, CBC, HFP #### [address] [address] Chloride [Moles/Vol] 102 mmol/L Normal 98-110 [facility] Comment on above: Performed By: #### A COLLIN, MG, BMP, ADIFF, GFR, CBC, HFP #### [address] [address] CO2 [Moles/Vol] 28 mmol/L Normal 22-32 [facility] Comment on above: Performed By: #### A COLLIN, MG, BMP, ADIFF, GFR, CBC, HFP #### [address] [address] Creatinine [Mass/Vol] 1.27 mg/dL High 0.50-1.20 [facility] Comment on above: Result Comment: Test ing performed on [email or web address] analyzer using enzymatic creatinine methodology. Performed By: #### A COLLIN, MG, BMP, ADIFF, GFR, CBC, HFP #### [place] [id number] Electrolyte Balance 9.0 mEq/L Normal 4.0-15.0 [facility] Comment on above: Performed By: #### A COLLIN, MG, BMP, ADIFF, GFR, CBC, HFP #### [address] [address] Glucose [Mass/Vol] 90 mg/dL Normal 82-115 [facility] Comment on above: Performed By: #### A COLLIN, MG, BMP, ADIFF, GFR, CBC, HFP #### [address] [address] Potassium [Moles/Vol] 4.0 mmol/L Normal 3.5-5.0 [facility] Comment on above: Performed By: #### A COLLIN, MG, BMP, ADIFF, GFR, CBC, HFP #### [place] [id number] Sodium [Moles/Vol] 139 mmol/L Normal 136-145 [facility] Comment on above: Performed By: #### A COLLIN, MG, BMP, ADIFF, GFR, CBC, HFP #### [place] [id number] Urea nitrogen [Mass/Vol] 27.0 mg/dL High 8.0-22.0 [facility] Comment on above: Performed By: #### A COLLIN, MG, BMP, ADIFF, GFR, CBC, HFP #### [address] [address] CMPon 08-30-2024 Albumin Level 3.4 G/dL Normal 3.2-4.8 [facility] Comment on above: Performed By: #### G FR, BMP #### [place] [id number] Albumin/Globulin [Mass ratio] 1.2 {ratio} Normal 0.9-1.6 [facility] Comment on above: Performed By: #### G FR, BMP #### [place] [id number] ALP [Catalytic activity/Vol] 74 U/L Normal 38-126 [facility] Comment on above: Performed By: #### G FR, BMP #### [place] [id number] ALT [Catalytic activity/Vol] 8 U/L Low 10-49 [facility] Comment on above: Performed By: #### G FR, BMP #### [place] [phone] AST [Catalytic activity/Vol] 13 U/L Normal 8-34 [facility] Comment on above: Performed By: #### G FR, BMP #### [place] [id number] Bili Total 0.30 mg/dL Normal 0.20-1.20 [facility] Comment on above: Result Comment: Use of this assay is not recommended for patients undergoing treatment with eltrombopag due to the potential for falsely elevated results. Performed By: #### G FR, BMP #### [place] [address] BUN/Creatinine Ratio 19.6 ratio Normal 10.0-22.0 [facility] Comment on above: Performed By: #### G FR, BMP #### [address] [address] Calcium [Mass/Vol] 7.6 mg/dL Low 8.7-10.4 [facility] Comment on above: Performed By: #### G FR, BMP #### [address] [address] Chloride [Moles/Vol] 101 mmol/L Normal 98-110 [facility] Comment on above: Performed By: #### G FR, BMP #### [address] [address] CO2 [Moles/Vol] 27 mmol/L Normal 22-32 [facility] Comment on above: Performed By: #### Ed FR, BMP #### [place] [id number] Creatinine [Mass/Vol] 1.53 mg/dL High 0.50-1.20 [facility] Comment on above: Result Comment: Test ing performed on [email or web address] analyzer using enzymatic creatinine methodology. Performed By: #### Ed FR, BMP #### [address] [address] Electrolyte Balance 9.0 mEq/L Normal 4.0-15.0 [facility] Comment on above: Performed By: #### G FR, BMP #### [address] [address] Globulin 2.8 G/dL Normal 2.5-4.2 [facility] Comment on above: Performed By: #### G FR, BMP #### [address] [address] Glucose [Mass/Vol] 102 mg/dL Normal 82-115 [facility] Comment on above: Performed By: #### G FR, BMP #### [address] [address] Potassium [Moles/Vol] 3.9 mmol/L Normal 3.5-5.0 [facility] Comment on above: Performed By: #### G FR, BMP #### [address] [address] Sodium [Moles/Vol] 137 mmol/L Normal 136-145 [facility] Comment on above: Performed By: #### G FR, BMP #### [address] [address] Total Protein 6.2 G/dL Normal 5.7-8.2 [facility] Comment on above: Performed By: #### G FR, BMP #### [address] [address] Urea nitrogen [Mass/Vol] 30.0 mg/dL High 8.0-22.0 [facility] Comment on above: Performed By: #### G FR, BMP #### [address] [address] MGon 08-30-2024 Magnesium [Mass/Vol] 2.4 mg/dL Normal 1.6-2.4 [facility] Comment on above: Performed By: #### C MP, MG, GFR #### [address] [address] Magnesium [Mass/Vol] 2.8 mg/dL High 1.6-2.4 [facility] Comment on above: Performed By: #### A COLLIN, MG, BMP, ADIFF, GFR, CBC, HFP #### [address] [address] NM MYOCARDIAL SPECT STRESS/R ESTon 08-30-2024 NM MYOCARDIAL SPECT STRESS/REST ORIGINAL NM MYOCARDIAL SPECT STRESS/REST CLINICAL STATEMENT: Assess for ischemia TECHNIQUE: Lexiscan dose: 0.4 mg Radiopharmaceutical (stress): Tc-99m Sestamibi Dose:27 mCi Radiopharmaceutical (rest): Tc-99m Sestamibi Dose:8.4 mCi SPECT acquisition and processing Reconstruction and reorientation of SPECT images into short axis, vertical and horizontal long axis planes Quantitative LVEF assessment COMPARISON:None REPORT: This is a fair quality study. Low dose CT shows aortic and coronary artery calcification. Rotating planar images did not show vertical motion artifact. SPECT perfusion images show homogenous tracer uptake in both rest and stress images with no evidence for any ischemia or infarct. TID ratio 1.01. Gated SPECT images show normal motion and systolic thickening of all myocardial segments. LEFT ventricle systolic function with calculated ejection fraction of 55%. LEFT ventricle end-diastolic volume of 100 mL. IMPRESSION: 1. No evidence of myocardial ischemia or prior myocardial infarction. 2. LEFT ventricular systolic function with calculated ejection fraction of 55%. 3. No prior study for comparison. Interpreted By: Monika Agustin Preliminary Report By: Vj Ruff Electronically Signed By: Monika Agustin Dictated Date: 08/30/2024 12:54:12 PM Prelim Date: 08/30/2024 12:58:31 PM Sign Date: 08/30/2024 3:24:08 PM Ordering Provider:Harry Bailon [facility] .GFRon 08-29-2024 Estimated Glomerular Filtration Rate 43 ml/min/1.73sqm [facility] Comment on above: Result Comment: Stages of Chronic Kidney Disease (CKD) Stage Description eGFR(ml/min/1.73 sq.m.) CKD 1 Normal kidney function or >=90 normal kindney function with possible kidney damage (ex. Proteinuria) CKD 2 Kidney damage with mild loss 60-89 of kidney function CKD 3a Mild to moderate loss of kidney 45-59 function CKD 3b Moderate to severe loss of 30-44 of kindey function CKD 4 Severe loss of kidney function 15-29 CKD 5 Kidney failure <15 Note: (go live 2024) the eGFR calculation was updated to the 2020 CKD-EPI creatinine equation without a race factor to calculate the eGFR results. Performed By: #### A COLLIN, MG, BMP, ADIFF, GFR, CBC, HFP #### [address] [address] [facility] 08-29-2024 BUN/Creatinine Ratio 23.2 ratio High 10.0-22.0 [facility] Comment on above: Performed By: #### A COLLIN, MG, BMP, ADIFF, GFR, CBC, HFP #### [address] [address] Calcium [Mass/Vol] 8.4 mg/dL Low 8.7-10.4 [facility] Comment on above: Performed By: #### A COLLIN, MG, BMP, ADIFF, GFR, CBC, HFP #### [address] [address] Chloride [Moles/Vol] 103 mmol/L Normal 98-110 [facility] Comment on above: Performed By: #### A COLLIN, MG, BMP, ADIFF, GFR, CBC, HFP #### [address] [address] CO2 [Moles/Vol] 28 mmol/L Normal 22-32 [facility] Comment on above: Performed By: #### A COLLIN, MG, BMP, ADIFF, GFR, CBC, HFP #### [address] [address] Creatinine [Mass/Vol] 1.25 mg/dL High 0.50-1.20 [facility] Comment on above: Result Comment: Test ing performed on [email or web address] analyzer using enzymatic creatinine methodology. Performed By: #### A COLLIN, MG, BMP, ADIFF, GFR, CBC, HFP #### [address] [address] Electrolyte Balance 10.0 mEq/L Normal 4.0-15.0 [facility] Comment on above: Performed By: #### A COLLIN, MG, BMP, ADIFF, GFR, CBC, HFP #### [address] [address] Glucose [Mass/Vol] 81 mg/dL Low 82-115 [facility] Comment on above: Performed By: #### A COLLIN, MG, BMP, ADIFF, GFR, CBC, HFP #### [address] [address] Potassium [Moles/Vol] 3.9 mmol/L Normal 3.5-5.0 [facility] Comment on above: Performed By: #### A COLLIN, MG, BMP, ADIFF, GFR, CBC, HFP #### [address] [address] Sodium [Moles/Vol] 141 mmol/L Normal 136-145 [facility] Comment on above: Performed By: #### A COLLIN, MG, BMP, ADIFF, GFR, CBC, HFP #### [address] [place] [address] Urea nitrogen [Mass/Vol] 29.0 mg/dL High 8.0-22.0 [facility] Comment on above: Performed By: #### A COLLIN, MG, BMP, ADIFF, GFR, CBC, HFP #### [facility] [address] [place] [address] MGon 08-29-2024 Magnesium [Mass/Vol] 2.3 mg/dL Normal 1.6-2.4 [facility] Comment on above: Performed By: #### A COLLIN, MG, BMP, ADIFF, GFR, CBC, HFP #### [address] [address] XR CHEST 1 VIEWon 08-29-2024 XR CHEST 1 VIEW ORIGINAL EXAMINATION: ONE XRAY VIEW OF THE CHEST 08/29/2024 5:07 pm COMPARISON: Chest radiograph 07/05/2024 HISTORY: ORDERING SYSTEM PROVIDED HISTORY: Reason for Exam: SOB FINDINGS: There is chronic bilateral mild interstitial thickening. There is no consolidation or pleural effusion. There is moderate enlargement of the cardiomediastinal silhouette. Aorta is ectatic with calcified plaques. There are subsegmental infiltrates versus atelectasis bilateral lung bases. There is no pulmonary vascular congestion. There is no pneumothorax. Osseous structures demonstrate degenerative changes. IMPRESSION: There is no consolidation or pleural effusion. There are subsegmental infiltrates versus atelectasis bilateral lung bases. Interpreted by: Sonny Haywood Preliminary Report By: Sonny Haywood Electronically signed By Sonny Haywood Dictated Date: 08/29/2024 5:26:08 PM Prelim Date: 08/29/2024 5:31:45 PM Sign Date: 08/29/2024 5:31:45 PM Ordering Provider: ANASTASIYA JEFF [facility] .GFRon 08-28-2024 Estimated Glomerular Filtration Rate 49 ml/min/1.73sqm [facility] Comment on above: Result Comment: Stages of Chronic Kidney Disease (CKD) Stage Description eGFR(ml/min/1.73 sq.m.) CKD 1 Normal kidney function or >=90 normal kindney function with possible kidney damage (ex. Proteinuria) CKD 2 Kidney damage with mild loss 60-89 of kidney function CKD 3a Mild to moderate loss of kidney 45-59 function CKD 3b Moderate to severe loss of 30-44 of kindey function CKD 4 Severe loss of kidney function 15-29 CKD 5 Kidney failure <15 Note: (go live 2024) the eGFR calculation was updated to the 2020 CKD-EPI creatinine equation without a race factor to calculate the eGFR results. Performed By: #### Ed , BMP #### [address] [address] [facility] 08-28-2024 BUN/Creatinine Ratio 25.7 ratio High 10.0-22.0 [facility] Comment on above: Performed By: #### G , BMP #### [address] [address] Calcium [Mass/Vol] 8.8 mg/dL Normal 8.7-10.4 [facility] Comment on above: Performed By: #### Ed , BMP #### [address] [address] Chloride [Moles/Vol] 105 mmol/L Normal 98-110 [facility] Comment on above: Performed By: #### Ed , BMP #### [address] [address] CO2 [Moles/Vol] 28 mmol/L Normal 22-32 [facility] Comment on above: Performed By: #### Ed , BMP #### [address] [address] Creatinine [Mass/Vol] 1.13 mg/dL Normal 0.50-1.20 [facility] Comment on above: Result Comment: Test ing performed on [id number] analyzer using enzymatic creatinine methodology. Performed By: #### G FR, BMP #### [address] [address] Electrolyte Balance 8.0 mEq/L Normal 4.0-15.0 [facility] Comment on above: Performed By: #### G FR, BMP #### [address] [address] Glucose [Mass/Vol] 86 mg/dL Normal 82-115 [facility] Comment on above: Performed By: #### G FR, BMP #### [address] [address] Potassium [Moles/Vol] 4.1 mmol/L Normal 3.5-5.0 [facility] Comment on above: Performed By: #### Ed WAGNER, BMP #### [address] [address] Sodium [Moles/Vol] 141 mmol/L Normal 136-145 [facility] Comment on above: Performed By: #### Ed WAGNER, BMP #### [address] [address] Urea nitrogen [Mass/Vol] 29.0 mg/dL High 8.0-22.0 [facility] Comment on above: Performed By: #### Ed WAGNER, BMP #### [address] [address] MGon 08-28-2024 Magnesium [Mass/Vol] 2.3 mg/dL Normal 1.6-2.4 [facility] Comment on above: Performed By: #### Ed , BMP #### [address] [address] .GFRon 08-27-2024 Estimated Glomerular Filtration Rate 49 ml/min/1.73sqm Normal [facility] Comment on above: Result Comment: Stages of Chronic Kidney Disease (CKD) Stage Description eGFR(ml/min/1.73 sq.m.) CKD 1 Normal kidney function or >=90 normal kindney function with possible kidney damage (ex. Proteinuria) CKD 2 Kidney damage with mild loss 60-89 of kidney function CKD 3a Mild to moderate loss of kidney 45-59 function CKD 3b Moderate to severe loss of 30-44 of kindey function CKD 4 Severe loss of kidney function 15-29 CKD 5 Kidney failure <15 Note: (go live 2024) the eGFR calculation was updated to the 2020 CKD-EPI creatinine equation without a race factor to calculate the eGFR results. Performed By: #### Ed WAGNER, BMP #### [address] [address] CMPon 08-27-2024 Albumin Level 3.7 G/dL Normal 3.2-4.8 [facility] Comment on above: Performed By: #### Ed FR, BMP #### [place] [address] Albumin/Globulin [Mass ratio] 1.4 {ratio} Normal 0.9-1.6 [facility] Comment on above: Performed By: #### G FR, BMP #### [place] [address] ALP [Catalytic activity/Vol] 80 U/L Normal 38-126 [facility] Comment on above: Performed By: #### G , BMP #### [place] [id number] ALT [Catalytic activity/Vol] 8 U/L Low 10-49 [facility] Comment on above: Performed By: #### Ed WAGNER, BMP #### [place] [address] AST [Catalytic activity/Vol] 13 U/L Normal 8-34 [facility] Comment on above: Performed By: #### Ed WAGNER, BMP #### [place] [address] Bili Total 0.20 mg/dL Normal 0.20-1.20 [facility] Comment on above: Result Comment: Use of this assay is not recommended for patients undergoing treatment with eltrombopag due to the potential for falsely elevated results. Performed By: #### Ed WAGNER, BMP #### [place] [address] BUN/Creatinine Ratio 26.8 ratio High 10.0-22.0 [facility] Comment on above: Performed By: #### Ed FR, BMP #### [place] [id number] Calcium [Mass/Vol] 9.2 mg/dL Normal 8.7-10.4 [facility] Comment on above: Performed By: #### Ed FR, BMP #### [place] [address] Chloride [Moles/Vol] 105 mmol/L Normal 98-110 [facility] Comment on above: Performed By: #### Ed WAGNER, BMP #### [place] [address] CO2 [Moles/Vol] 28 mmol/L Normal 22-32 [facility] Comment on above: Performed By: #### G FR, BMP #### [address] [address] Creatinine [Mass/Vol] 1.12 mg/dL Normal 0.50-1.20 [facility] Comment on above: Result Comment: Test ing performed on [email or web address] analyzer using enzymatic creatinine methodology. Performed By: #### G FR, BMP #### [address] [address] Electrolyte Balance 9.0 mEq/L Normal 4.0-15.0 [facility] Comment on above: Performed By: #### G FR, BMP #### [address] [address] Globulin 2.7 G/dL Normal 2.5-4.2 [facility] Comment on above: Performed By: #### G FR, BMP #### [address] [address] Glucose [Mass/Vol] 95 mg/dL Normal 82-115 [facility] Comment on above: Performed By: #### G FR, BMP #### [address] [address] Potassium [Moles/Vol] 4.0 mmol/L Normal 3.5-5.0 [facility] Comment on above: Performed By: #### G FR, BMP #### [address] [address] Sodium [Moles/Vol] 142 mmol/L Normal 136-145 [facility] Comment on above: Performed By: #### G FR, BMP #### [address] [address] Total Protein 6.4 G/dL Normal 5.7-8.2 [facility] Comment on above: Performed By: #### G FR, BMP #### [address] [address] Urea nitrogen [Mass/Vol] 30.0 mg/dL High 8.0-22.0 [facility] Comment on above: Performed By: #### G FR, BMP #### [place] [id number] [place] [address] MGon 08-27-2024 Magnesium [Mass/Vol] 2.4 mg/dL Normal 1.6-2.4 [facility] Comment on above: Performed By: #### G FR, BMP #### [address] [address] PROon 08-27-2024 INR Coag (PPP) [Relative time] 1.2 {INR} Normal [facility] Comment on above: Result Comment: The [employer] (CHEST, 1992, 102:312S-25S) recommended therapeutic range for oral anticoagulant therapy is: LOW RISK: Prophylaxis of venous thrombosis INR: 2.0-3.0 Treatment of pulmonary embolism 2.0-3.0 Prevention of systemic embolism 2.0-3.0 HIGH RISK: Mechanical prosthetic valves 2.5-3.5 Performed By: #### G , BMP #### [place] [id number] PT Coag (PPP) [Time] 13.2 s Normal 9.0-14.4 [facility] Comment on above: Result Comment: Effe ctive 10/24/07, Protime results may be affected by some antibiotics (i.e. Ciprofloxacin, Azithromycin, Bactrim) which may potentiate the action of oral anticoagulants, with further increases in Protime/INR. Performed By: #### G , BMP #### [address] [address] .GFRon 08-21-2024 Estimated Glomerular Filtration Rate 46 ml/min/1.73sqm Normal [facility] Comment on above: Result Comment: Stages of Chronic Kidney Disease (CKD) Stage Description eGFR(ml/min/1.73 sq.m.) CKD 1 Normal kidney function or >=90 normal kindney function with possible kidney damage (ex. Proteinuria) CKD 2 Kidney damage with mild loss 60-89 of kidney function CKD 3a Mild to moderate loss of kidney 45-59 function CKD 3b Moderate to severe loss of 30-44 of kindey function CKD 4 Severe loss of kidney function 15-29 CKD 5 Kidney failure <15 Note: (go live 2024) the eGFR calculation was updated to the 2020 CKD-EPI creatinine equation without a race factor to calculate the eGFR results. Performed By: #### M DW, MG, GFR, BMP, CBC, ANEU, TROPHS, ADIFF #### [address] [address] BMPon 08-21-2024 BUN/Creatinine Ratio 19 ratio Normal 7-27 [facility] Comment on above: Performed By: #### M DW, MG, GFR, BMP, CBC, ANEU, TROPHS, ADIFF #### [address] [address] Calcium [Mass/Vol] 9.1 mg/dL Normal 8.4-10.2 [facility] Comment on above: Performed By: #### M DW, MG, GFR, BMP, CBC, ANEU, TROPHS, ADIFF #### [address] [address] Chloride [Moles/Vol] 104 mmol/L Normal 98-107 [facility] Comment on above: Performed By: #### M DW, MG, GFR, BMP, CBC, ANEU, TROPHS, ADIFF #### [address] [address] CO2 [Moles/Vol] 27 mmol/L Normal 23-31 [facility] Comment on above: Performed By: #### M DW, MG, GFR, BMP, CBC, ANEU, TROPHS, ADIFF #### [address] [address] Creatinine [Mass/Vol] 1.18 mg/dL High 0.51-0.[address] [facility] Comment on above: Performed By: #### M DW, MG, GFR, BMP, CBC, ANEU, TROPHS, ADIFF #### [address] [address] Electrolyte Balance 8.0 mEq/L Normal 4.0-15.0 [facility] Comment on above: Performed By: #### M DW, MG, GFR, BMP, CBC, ANEU, TROPHS, ADIFF #### [address] [address] Glucose [Mass/Vol] 95 mg/dL Normal 83-110 [facility] Comment on above: Performed By: #### M DW, MG, GFR, BMP, CBC, ANEU, TROPHS, ADIFF #### [address] [address] Potassium [Moles/Vol] 5.3 mmol/L High 3.5-5.[address] [facility] Comment on above: Performed By: #### M DW, MG, GFR, BMP, CBC, ANEU, TROPHS, ADIFF #### [address] [address] Sodium [Moles/Vol] 139 mmol/L Normal 136-145 [facility] Comment on above: Performed By: #### M DW, MG, GFR, BMP, CBC, ANEU, TROPHS, ADIFF #### [address] [address] Urea nitrogen [Mass/Vol] 23 mg/dL High 7-18 [facility] Comment on above: Performed By: #### M DW, MG, GFR, BMP, CBC, ANEU, TROPHS, ADIFF #### [address] [address] LABORATORYOrdered By: SYSTEM SYSTEM on 08-21-2024 Calcium [Mass/Vol] 9.1 mg/dL Normal 8.4 - 10. 2 mg/dL AO ADM SS Chloride [Moles/Vol] 104 mmol/L Normal 98 - 10 7 mmol/L AO ADM SS CO2 [Moles/Vol] 27 mmol/L Normal 23 - 31 mmol/L AO ADM SS Creatinine [Mass/Vol] 1.18 mg/dL High 0.51 - 0.95 mg/dL AO ADM SS Electrolyte Balance 8.0 mEq/L Normal 4.0 - 15 .0 mEq/L AO ADM SS Estimated Glomerular Filtration Rate 46 ml/min/1.73sqm Invalid Interpretation Code AO Chemistry S Comment on above: Interpretive Data: Stages of Chronic Kidney Disease (CKD) Stage Description eGFR(ml/min/1.73 sq.m.) CKD 1 Normal kidney function or >=90 normal kindney function with possible kidney damage (ex. Proteinuria) CKD 2 Kidney damage with mild loss 60-89 of kidney function CKD 3a Mild to moderate loss of kidney 45-59 function CKD 3b Moderate to severe loss of 30-44 of kindey function CKD 4 Severe loss of kidney function 15-29 CKD 5 Kidney failure <15 Note: ( live 05/15/2024) the eGFR calculation was updated to the 2020 CKD-EPI creatinine equation without a race factor to calculate the eGFR results. Glucose [Mass/Vol] 95 mg/dL Normal 83 - 110 mg/dL AO ADM SS Potassium [Moles/Vol] 5.3 mmol/L High 3.5 - 5.1 mmol/L AO ADM SS Sodium [Moles/Vol] 139 mmol/L Normal 136 - 145 mmol/L AO ADM SS Urea nitrogen [Mass/Vol] 23 mg/dL High 7 - 18 mg/dL AO ADM SS Urea nitrogen/Creatinine [Mass ratio] 19 ratio Normal 7 - 27 ratio AO ADM SS .GFRon 08-09-2024 Estimated Glomerular Filtration Rate 41 ml/min/1.73sqm Normal [facility] Comment on above: Result Comment: Stages of Chronic Kidney Disease (CKD) Stage Description eGFR(ml/min/1.73 sq.m.) CKD 1 Normal kidney function or >=90 normal kindney function with possible kidney damage (ex. Proteinuria) CKD 2 Kidney damage with mild loss 60-89 of kidney function CKD 3a Mild to moderate loss of kidney 45-59 function CKD 3b Moderate to severe loss of 30-44 of kindey function CKD 4 Severe loss of kidney function 15-29 CKD 5 Kidney failure <15 Note: ( live 05/15/2024) the eGFR calculation was updated to the 2020 CKD-EPI creatinine equation without a race factor to calculate the eGFR results. Performed By: #### A COLLIN, MG, BMP, ADIFF, GFR, CBC, HFP #### [place] [address] BMPon 08-09-2024 BUN/Creatinine Ratio 22.9 ratio High 10.0-22.0 [facility] Comment on above: Order Comment: Unexp ected results. Possible specimen contamination. Called Ashley Puckett on [facility] for recollect. 08/09/2024 05:15:01 EDT Performed By: #### A COLLIN, MG, BMP, ADIFF, GFR, CBC, HFP #### [address] [address] Calcium [Mass/Vol] 7.4 mg/dL Low 8.7-10.4 [facility] Comment on above: Order Comment: Unexp ected results. Possible specimen contamination. Called Ashley Puckett on [facility] for recollect. 08/09/2024 05:15:01 EDT Performed By: #### A COLLIN, MG, BMP, ADIFF, GFR, CBC, HFP #### [address] [address] Chloride [Moles/Vol] 105 mmol/L Normal 98-110 [facility] Comment on above: Order Comment: Unexp ected results. Possible specimen contamination. Called Ashley Puckett on [facility] for recollect. 08/09/2024 05:15:01 EDT Performed By: #### A COLLIN, MG, BMP, ADIFF, GFR, CBC, HFP #### [address] [address] CO2 [Moles/Vol] 23 mmol/L Normal 22-32 [facility] Comment on above: Order Comment: Unexp ected results. Possible specimen contamination. Called Ashley Puckett on [facility] for recollect. 08/09/2024 05:15:01 EDT Performed By: #### A COLLIN, MG, BMP, ADIFF, GFR, CBC, HFP #### [address] [address] Creatinine [Mass/Vol] 1.31 mg/dL High 0.50-1.20 [facility] Comment on above: Order Comment: Unexp ected results. Possible specimen contamination. Called Ashley Puckett on [facility] for recollect. 08/09/2024 05:15:01 EDT Result Comment: Test ing performed on [email or web address] analyzer using enzymatic creatinine methodology. Performed By: #### A COLLIN, MG, BMP, ADIFF, GFR, CBC, HFP #### [address] [address] Electrolyte Balance 8.0 mEq/L Normal 4.0-15.0 [facility] Comment on above: Order Comment: Unexp ected results. Possible specimen contamination. Called feliz Diamondt on [facility] for recollect. 08/09/2024 05:15:01 EDT Performed By: #### A COLLIN, MG, BMP, ADIFF, GFR, CBC, HFP #### [address] [address] Glucose [Mass/Vol] 99 mg/dL Normal 82-115 [facility] Comment on above: Order Comment: Unexp ected results. Possible specimen contamination. Called Ashley Puckett on [facility] for recollect. 08/09/2024 05:15:01 EDT Performed By: #### A COLLIN, MG, BMP, ADIFF, GFR, CBC, HFP #### [address] [address] Potassium [Moles/Vol] 5.5 mmol/L High 3.5-5.0 [facility] Comment on above: Order Comment: Unexp ected results. Possible specimen contamination. Called Ashley Puckett on [facility] for recollect. 08/09/2024 05:15:01 EDT Performed By: #### A COLLIN, MG, BMP, ADIFF, GFR, CBC, HFP #### [address] [address] Sodium [Moles/Vol] 136 mmol/L Normal 136-145 [facility] Comment on above: Order Comment: Unexp ected results. Possible specimen contamination. Called Ashley Puckett on [facility] for recollect. 08/09/2024 05:15:01 EDT Performed By: #### A COLLIN, MG, BMP, ADIFF, GFR, CBC, HFP #### [address] [address] Urea nitrogen [Mass/Vol] 30.0 mg/dL High 8.0-22.0 [facility] Comment on above: Order Comment: Unexp ected results. Possible specimen contamination. Called Ashley Puckett on [facility] for recollect. 08/09/2024 05:15:01 EDT Performed By: #### A COLLIN, MG, BMP, ADIFF, GFR, CBC, HFP #### [address] [address] LABORATORYOrdered By: SYSTEM SYSTEM on 08-09-2024 Calcium [Mass/Vol] 7.4 mg/dL Low 8.7 - 10. 4 mg/dL AH ADM SS Chloride [Moles/Vol] 105 mmol/L Normal 98 - 11 0 mEq/L AH ADM SS CO2 [Moles/Vol] 23 mmol/L Normal 22 - 32 mEq/L AH ADM SS Creatinine [Mass/Vol] 1.31 mg/dL High 0.50 - 1.20 mg/dL AH ADM SS Comment on above: Interpretive Data: T esting performed on [email or web address] analyzer using enzymatic creatinine methodology. Electrolyte Balance 8.0 mEq/L Normal 4.0 - 15 .0 mEq/L AH ADM SS Estimated Glomerular Filtration Rate 41 ml/min/1.73sqm Invalid Interpretation Code Chemistry S Comment on above: Interpretive Data: Stages of Chronic Kidney Disease (CKD) Stage Description eGFR(ml/min/1.73 sq.m.) CKD 1 Normal kidney function or >=90 normal kindney function with possible kidney damage (ex. Proteinuria) CKD 2 Kidney damage with mild loss 60-89 of kidney function CKD 3a Mild to moderate loss of kidney 45-59 function CKD 3b Moderate to severe loss of 30-44 of kindey function CKD 4 Severe loss of kidney function 15-29 CKD 5 Kidney failure <15 Note: (go live 2024) the eGFR calculation was updated to the 2020 CKD-EPI creatinine equation without a race factor to calculate the eGFR results. Glucose [Mass/Vol] 99 mg/dL Normal 82 - 115 mg/dL ADM SS Potassium [Moles/Vol] 5.5 mmol/L High 3.5 - 5.0 mEq/L AH ADM SS Sodium [Moles/Vol] 136 mmol/L Normal 136 - 145 mEq/L AH ADM SS Urea nitrogen [Mass/Vol] 30.0 mg/dL High 8.0 - 22.0 mg/dL AH ADM SS Urea nitrogen/Creatinine [Mass ratio] 22.9 ratio High 10.0 - 22.0 ratio AH ADM SS .Auto Diffon 08-08-2024 Basophil, Absolute 0.1 10 3/mcL Normal 0.0-0.3 [facility] Comment on above: Performed By: #### A COLLIN, MG, BMP, ADIFF, GFR, CBC, HFP #### [address] [address] Basophils/100 WBC (Bld) 1.5 % Normal 0.0-2.5 [facility] Comment on above: Performed By: #### A COLLIN, MG, BMP, ADIFF, GFR, CBC, HFP #### [address] [address] Eosinophil, Absolute 0.2 10 3/mcL Normal 0.0-0.7 [facility] Comment on above: Performed By: #### A COLLIN, MG, BMP, ADIFF, GFR, CBC, HFP #### [address] [address] Eosinophils/100 WBC (Bld) 2.8 % Normal 0.0-6.0 [facility] Comment on above: Performed By: #### A COLLIN, MG, BMP, ADIFF, GFR, CBC, HFP #### [address] [address] Lymphocyte, Absolute 0.7 10 3/mcL Low 0.9-4.3 [facility] Comment on above: Performed By: #### A COLLIN, MG, BMP, ADIFF, GFR, CBC, HFP #### [address] [address] Lymphocytes/100 WBC (Bld) 9.3 % Low 20.0-40.0 [facility] Comment on above: Performed By: #### A COLLIN, MG, BMP, ADIFF, GFR, CBC, HFP #### [address] [address] Monocyte, Absolute 0.5 10 3/mcL Normal 0.1-1.4 [facility] Comment on above: Performed By: #### A COLLIN, MG, BMP, ADIFF, GFR, CBC, HFP #### [address] [address] Monocytes/100 WBC (Bld) 7.4 % Normal 2.0-13.0 [facility] Comment on above: Performed By: #### A COLLIN, MG, BMP, ADIFF, GFR, CBC, HFP #### [address] [address] Neutrophils/100 WBC (Bld) 79.0 % High 50.0-75.0 [facility] Comment on above: Performed By: #### A COLLIN, MG, BMP, ADIFF, GFR, CBC, HFP #### [address] [address] .GFRon 08-08-2024 Estimated Glomerular Filtration Rate 52 ml/min/1.73sqm Normal [facility] Comment on above: Result Comment: Stages of Chronic Kidney Disease (CKD) Stage Description eGFR(ml/min/1.73 sq.m.) CKD 1 Normal kidney function or >=90 normal kindney function with possible kidney damage (ex. Proteinuria) CKD 2 Kidney damage with mild loss 60-89 of kidney function CKD 3a Mild to moderate loss of kidney 45-59 function CKD 3b Moderate to severe loss of 30-44 of kindey function CKD 4 Severe loss of kidney function 15-29 CKD 5 Kidney failure <15 Note: (go live 2024) the eGFR calculation was updated to the 2020 CKD-EPI creatinine equation without a race factor to calculate the eGFR results. Performed By: #### A COLLIN, MG, BMP, ADIFF, GFR, CBC, HFP #### [address] [address] .NEUABSon 08-08-2024 Neutrophil, Absolute 5.8 10 3/mcL Normal 2.3-8.1 [facility] Comment on above: Performed By: #### A COLLIN, MG, BMP, ADIFF, GFR, CBC, HFP #### [place] [id number] ABO/Rh (Gel)on 08-08-2024 ABO/Rh Interp Positive Invalid Interpretation Code [facility] Comment on above: Performed By: #### A COLLIN, MG, BMP, ADIFF, GFR, CBC, HFP #### [address] [address] ABS (Gel)on 08-08-2024 ABSC Interp (Gel) Negative Normal [facility] Comment on above: Performed By: #### A COLLIN, MG, BMP, ADIFF, GFR, CBC, HFP #### [address] [address] APTTon 08-08-2024 aPTT Coag (Bld) [Time] 37.1 s High 25.0-35.0 [facility] Comment on above: Result Comment: For Heparin anticoagulation therapy, the recommended therapeutic range is: 54-77 seconds (APTT Correlation with Anti-Xa therapeutic range of 0.3-0.7 units/ml). PLEASE REFERENCE THE PHARMACY PROTOCOL FOR DOSING. Performed By: #### A COLLIN, MG, BMP, ADIFF, GFR, CBC, HFP #### [place] [id number] BMPon 08-08-2024 BUN/Creatinine Ratio 15.0 ratio Normal 10.0-22.0 [facility] Comment on above: Performed By: #### A COLLIN, MG, BMP, ADIFF, GFR, CBC, HFP #### [place] [address] Calcium [Mass/Vol] 8.3 mg/dL Low 8.7-10.4 [facility] Comment on above: Performed By: #### A COLLIN, MG, BMP, ADIFF, GFR, CBC, HFP #### [place] [address] Chloride [Moles/Vol] 106 mmol/L Normal 98-110 [facility] Comment on above: Performed By: #### A COLLIN, MG, BMP, ADIFF, GFR, CBC, HFP #### [place] [address] CO2 [Moles/Vol] 24 mmol/L Normal 22-32 [facility] Comment on above: Performed By: #### A COLLIN, MG, BMP, ADIFF, GFR, CBC, HFP #### [place] [id number] Creatinine [Mass/Vol] 1.07 mg/dL Normal 0.50-1.20 [facility] Comment on above: Result Comment: Test ing performed on [email or web address] analyzer using enzymatic creatinine methodology. Performed By: #### A COLLIN, MG, BMP, ADIFF, GFR, CBC, HFP #### [place] [id number] Electrolyte Balance 7.0 mEq/L Normal 4.0-15.0 [facility] Comment on above: Performed By: #### A COLLIN, MG, BMP, ADIFF, GFR, CBC, HFP #### [place] [id number] Glucose [Mass/Vol] 87 mg/dL Normal 82-115 [facility] [facility] Comment on above: Performed By: #### A COLLIN, MG, BMP, ADIFF, GFR, CBC, HFP #### [place] [id number] Potassium [Moles/Vol] 4.4 mmol/L Normal 3.5-5.0 [facility] Comment on above: Performed By: #### A COLLIN, MG, BMP, ADIFF, GFR, CBC, HFP #### [place] [id number] Sodium [Moles/Vol] 137 mmol/L Normal 136-145 [facility] Comment on above: Performed By: #### A COLLIN, MG, BMP, ADIFF, GFR, CBC, HFP #### [place] [address] Urea nitrogen [Mass/Vol] 16.0 mg/dL Normal 8.0-22.0 [facility] Comment on above: Performed By: #### A COLLIN, MG, BMP, ADIFF, GFR, CBC, HFP #### [address] [address] CBCon 08-08-2024 Erythrocyte distribution width (RBC) [Ratio] 14.2 % Normal 11.5-15.5 [facility] Comment on above: Performed By: #### A COLLIN, MG, BMP, ADIFF, GFR, CBC, HFP #### [place] [id number] Hematocrit (Bld) [Volume fraction] 36.9 % Normal 34.0-46.0 [facility] Comment on above: Performed By: #### A COLLIN, MG, BMP, ADIFF, GFR, CBC, HFP #### [place] [id number] Hgb 12.3 G/dL Normal 12.0-16.0 [facility] Comment on above: Performed By: #### A COLLIN, MG, BMP, ADIFF, GFR, CBC, HFP #### [place] [address] MCH (RBC) [Entitic mass] 29.9 pg Normal 27.0-33.0 [facility] Comment on above: Performed By: #### A COLLIN, MG, BMP, ADIFF, GFR, CBC, HFP #### [place] [address] MCHC 33.3 G/dL Normal 32.0-36.0 [facility] Comment on above: Performed By: #### A COLLIN, MG, BMP, ADIFF, GFR, CBC, HFP #### [place] [address] MCV (RBC) [Entitic vol] 89.8 fL Normal 80.0-99.0 [facility] Comment on above: Performed By: #### A COLLIN, MG, BMP, ADIFF, GFR, CBC, HFP #### [place] [address] Platelet 309 10 3/mcL Normal 150-450 [facility] Comment on above: Performed By: #### A COLLIN, MG, BMP, ADIFF, GFR, CBC, HFP #### [place] [address] Platelet mean volume (Bld) [Entitic vol] 7.8 fL Normal 6.6-10.5 [facility] Comment on above: Performed By: #### A COLLIN, MG, BMP, ADIFF, GFR, CBC, HFP #### [place] [address] RBC 4.11 10 6/mcL Normal 4.10-5.30 [facility] Comment on above: Performed By: #### A COLLIN, MG, BMP, ADIFF, GFR, CBC, HFP #### [place] [address] WBC 7.4 10 3/mcL Normal 4.5-10.8 [facility] Comment on above: Performed By: #### A COLLIN, MG, BMP, ADIFF, GFR, CBC, HFP #### [facility] [address] [place] [id number] FIBon 08-08-2024 Fibrinogen 583 mg/dL High 250-560 [facility] Comment on above: Performed By: #### A COLLIN, MG, BMP, ADIFF, GFR, CBC, HFP #### [facility] [address] [place] [id number] LABORATORYOrdered By: Óscar Guerrero on 08-08-2024 ABO and Rh group Nom (Bld) Blood group B Rh(D) positive Invalid Interpretation Code AH BB Auto SS Blood group antibody screen Ql Negative ABSC (08/08/24 8:37 AM) Normal AH BB Auto SS LABORATORYOrdered By: SYSTEM SYSTEM on 08-08-2024 aPTT Coag (Bld) [Time] 37.1 s High 25.0 - 35.0 seconds [facility] SS Comment on above: Interpretive Data: F or Heparin anticoagulation therapy, the recommended therapeutic range is: 54-77 seconds (APTT Correlation with Anti-Xa therapeutic range of 0.3-0.7 units/ml). PLEASE REFERENCE THE PHARMACY PROTOCOL FOR DOSING. Basophils (Bld) [#/Vol] 0.1 103/mcL Normal 0.0 - 0.3 10^3/mcL AH Workflow SS Basophils/100 WBC (Bld) 1.5 % Normal 0.0 - 2.5 % AH Workflow SS Calcium [Mass/Vol] 8.3 mg/dL Low 8.7 - 10. 4 mg/dL AH ADM SS Chloride [Moles/Vol] 106 mmol/L Normal 98 - 11 0 mEq/L AH ADM SS CO2 [Moles/Vol] 24 mmol/L Normal 22 - 32 mEq/L AH ADM SS Creatinine [Mass/Vol] 1.07 mg/dL Normal 0.50 - 1.20 mg/dL AH ADM SS Comment on above: Interpretive Data: T esting performed on [email or web address] analyzer using enzymatic creatinine methodology. Electrolyte Balance 7.0 mEq/L Normal 4.0 - 15 .0 mEq/L AH ADM SS Eosinophils (Bld) [#/Vol] 0.2 103/mcL Normal 0.0 - 0.7 10^3/mcL AH Workflow SS Eosinophils/100 WBC (Bld) 2.8 % Normal 0.0 - 6.0 % AH Workflow SS Erythrocyte distribution width (RBC) [Ratio] 14.2 % Normal 11.5 - 15.5 % AH Workflow SS Estimated Glomerular Filtration Rate 52 ml/min/1.73sqm Invalid Interpretation Code Chemistry S Comment on above: Interpretive Data: Stages of Chronic Kidney Disease (CKD) Stage Description eGFR(ml/min/1.73 sq.m.) CKD 1 Normal kidney function or >=90 normal kindney function with possible kidney damage (ex. Proteinuria) CKD 2 Kidney damage with mild loss 60-89 of kidney function CKD 3a Mild to moderate loss of kidney 45-59 function CKD 3b Moderate to severe loss of 30-44 of kindey function CKD 4 Severe loss of kidney function 15-29 CKD 5 Kidney failure <15 Note: (go live 2024) the eGFR calculation was updated to the 2020 CKD-EPI creatinine equation without a race factor to calculate the eGFR results. Fibrinogen 583 mg/dL High 250 - 560 mg/dL [facility] SS Glucose [Mass/Vol] 87 mg/dL Normal 82 - 115 mg/dL ADM SS Hematocrit (Bld) [Volume fraction] 36.9 % Normal 34.0 - 46.0 % AH Workflow SS Hemoglobin (Bld) [Mass/Vol] 12.3 G/dL Normal 12.0 - 16.0 G/dL AH Workflow SS Lymphocytes (Bld) [#/Vol] 0.7 103/mcL Low 0.9 - 4.3 10^3/mcL AH Workflow SS Lymphocytes/100 WBC (Bld) 9.3 % Low 20.0 - 40.0 % AH Workflow SS MCH (RBC) [Entitic mass] 29.9 pg Normal 27.0 - 33.0 pg AH Workflow SS MCHC 33.3 G/dL Normal 32.0 - 36.0 G/dL AH Workflow SS MCV (RBC) [Entitic vol] 89.8 fL Normal 80.0 - 99.0 fL Workflow SS Monocytes (Bld) [#/Vol] 0.5 103/mcL Normal 0.1 - 1.4 10^3/mcL AH Workflow SS Monocytes/100 WBC (Bld) 7.4 % Normal 2.0 - 13.0 % Workflow SS Neutrophils (Bld) [#/Vol] 5.8 103/mcL Normal 2.3 - 8.1 10^3/mcL Workflow SS Neutrophils/100 WBC (Bld) 79.0 % High 50.0 - 75.0 % AH Workflow SS Platelet mean volume (Bld) [Entitic vol] 7.8 fL Normal 6.6 - 10.5 fL Workflow SS Platelets (Bld) [#/Vol] 309 103/mcL Normal 150 - 450 10^3/mcL Workflow SS Potassium [Moles/Vol] 4.4 mmol/L Normal 3.5 - 5.0 mEq/L ADM SS PT Coag (PPP) [Time] 13.7 s Normal 9.0 - 1 4.4 seconds [facility] SS Comment on above: Interpretive Data: E ffective 10/24/07, Protime results may be affected by some antibiotics (i.e. Ciprofloxacin, Azithromycin, Bactrim) which may potentiate the action of oral anticoagulants, with further increases in Protime/INR. PT International Ratio 1.2 ratio Invalid Interpretation Code [facility] Comment on above: Interpretive Data: Jatinder samano [employer] (CHEST, 1991, 102:[id number]) recommended therapeutic range for oral anticoagulant therapy is: LOW RISK: Prophylaxis of venous thrombosis INR: 2.0-3.0 Treatment of pulmonary embolism 2.0-3.0 Prevention of systemic embolism 2.0-3.0 HIGH RISK: Mechanical prosthetic valves 2.5-3.5 RBC (Bld) [#/Vol] 4.11 106/mcL Normal 4.10 - 5.3 0 10^6/mcL Workflow SS Sodium [Moles/Vol] 137 mmol/L Normal 136 - 145 mEq/L ADM SS Urea nitrogen [Mass/Vol] 16.0 mg/dL Normal 8.0 - 22.0 mg/dL ADM SS Urea nitrogen/Creatinine [Mass ratio] 15.0 ratio Normal 10.0 - 22.0 ratio ADM SS WBC (Bld) [#/Vol] 7.4 103/mcL Normal 4.5 - 10.8 10^3/mcL Workflow SS PROon 08-08-2024 INR Coag (PPP) [Relative time] 1.2 {INR} Normal [facility] Comment on above: Result Comment: [employer] (CHEST, 1991, 102:312S-25S) recommended therapeutic range for oral anticoagulant therapy is: LOW RISK: Prophylaxis of venous thrombosis INR: 2.0-3.0 Treatment of pulmonary embolism 2.0-3.0 Prevention of systemic embolism 2.0-3.0 HIGH RISK: Mechanical prosthetic valves 2.5-3.5 Performed By: #### A COLLIN, MG, BMP, ADIFF, GFR, CBC, HFP #### [address] [address] PT Coag (PPP) [Time] 13.7 s Normal 9.0-14.4 [facility] Comment on above: Result Comment: Effe ctive 10/24/07, Protime results may be affected by some antibiotics (i.e. Ciprofloxacin, Azithromycin, Bactrim) which may potentiate the action of oral anticoagulants, with further increases in Protime/INR. Performed By: #### A COLLIN, MG, BMP, ADIFF, GFR, CBC, HFP #### [address] [address] .Auto Diffon 07-27-2024 Basophil, Absolute 0.1 10 3/mcL Normal 0.0-0.3 [facility] Comment on above: Performed By: #### A COLLIN, MG, BMP, ADIFF, GFR, CBC, HFP #### [address] [address] Basophils/100 WBC (Bld) 1.2 % Normal 0.0-2.5 [facility] Comment on above: Performed By: #### A COLLIN, MG, BMP, ADIFF, GFR, CBC, HFP #### [address] [address] Eosinophil, Absolute 0.2 10 3/mcL Normal 0.0-0.7 [facility] Comment on above: Performed By: #### A COLLIN, MG, BMP, ADIFF, GFR, CBC, HFP #### [address] [address] Eosinophils/100 WBC (Bld) 2.3 % Normal 0.0-6.0 [facility] Comment on above: Performed By: #### A COLLIN, MG, BMP, ADIFF, GFR, CBC, HFP #### [address] [address] Lymphocyte, Absolute 0.9 10 3/mcL Normal 0.9-4.3 [facility] Comment on above: Performed By: #### A COLLIN, MG, BMP, ADIFF, GFR, CBC, HFP #### [address] [address] Lymphocytes/100 WBC (Bld) 10.3 % Low 20.0-40.0 [facility] Comment on above: Performed By: #### A COLLIN, MG, BMP, ADIFF, GFR, CBC, HFP #### [address] [address] Monocyte, Absolute 0.8 10 3/mcL Normal 0.1-1.4 [facility] Comment on above: Performed By: #### A COLLIN, MG, BMP, ADIFF, GFR, CBC, HFP #### [address] [address] Monocytes/100 WBC (Bld) 8.6 % Normal 2.0-13.0 [facility] Comment on above: Performed By: #### A COLLIN, MG, BMP, ADIFF, GFR, CBC, HFP #### [address] [address] Neutrophils/100 WBC (Bld) 77.6 % High 50.0-75.0 [facility] Comment on above: Performed By: #### A COLLIN, MG, BMP, ADIFF, GFR, CBC, HFP #### [address] [address] .GFRon 07-27-2024 Estimated Glomerular Filtration Rate 59 ml/min/1.73sqm Normal [facility] Comment on above: Result Comment: Stages of Chronic Kidney Disease (CKD) Stage Description eGFR(ml/min/1.73 sq.m.) CKD 1 Normal kidney function or >=90 normal kindney function with possible kidney damage (ex. Proteinuria) CKD 2 Kidney damage with mild loss 60-89 of kidney function CKD 3a Mild to moderate loss of kidney 45-59 function CKD 3b Moderate to severe loss of 30-44 of kindey function CKD 4 Severe loss of kidney function 15-29 CKD 5 Kidney failure <15 Note: (go live 2024) the eGFR calculation was updated to the 2020 CKD-EPI creatinine equation without a race factor to calculate the eGFR results. Performed By: #### A COLLIN, MG, BMP, ADIFF, GFR, CBC, HFP #### [address] [address] .NEUABSon 07-27-2024 Neutrophil, Absolute 7.0 10 3/mcL Normal 2.3-8.1 [facility] Comment on above: Performed By: #### A COLLIN, MG, BMP, ADIFF, GFR, CBC, HFP #### [address] [address] BMPon 07-27-2024 BUN/Creatinine Ratio 21.9 ratio Normal 10.0-22.0 [facility] Comment on above: Performed By: #### A COLLIN, MG, BMP, ADIFF, GFR, CBC, HFP #### [address] [address] Calcium [Mass/Vol] 9.0 mg/dL Normal 8.7-10.4 [facility] Comment on above: Performed By: #### A COLLIN, MG, BMP, ADIFF, GFR, CBC, HFP #### [address] [address] Chloride [Moles/Vol] 106 mmol/L Normal 98-110 [facility] Comment on above: Performed By: #### A COLLIN, MG, BMP, ADIFF, GFR, CBC, HFP #### [address] [address] CO2 [Moles/Vol] 29 mmol/L Normal 22-32 [facility] Comment on above: Performed By: #### A COLLIN, MG, BMP, ADIFF, GFR, CBC, HFP #### [place] [id number] Creatinine [Mass/Vol] 0.96 mg/dL Normal 0.50-1.20 [facility] Comment on above: Result Comment: Test ing performed on [id number] analyzer using enzymatic creatinine methodology. Performed By: #### A COLLIN, MG, BMP, ADIFF, GFR, CBC, HFP #### [place] [id number] Electrolyte Balance 8.0 mEq/L Normal 4.0-15.0 [facility] Comment on above: Performed By: #### A COLLIN, MG, BMP, ADIFF, GFR, CBC, HFP #### [place] [address] Glucose [Mass/Vol] 97 mg/dL Normal 82-115 [facility] Comment on above: Performed By: #### A COLLIN, MG, BMP, ADIFF, GFR, CBC, HFP #### [place] [address] Potassium [Moles/Vol] 4.1 mmol/L Normal 3.5-5.0 [facility] Comment on above: Performed By: #### A COLLIN, MG, BMP, ADIFF, GFR, CBC, HFP #### [place] [id number] Sodium [Moles/Vol] 143 mmol/L Normal 136-145 [facility] Comment on above: Performed By: #### A COLLIN, MG, BMP, ADIFF, GFR, CBC, HFP #### [place] [address] Urea nitrogen [Mass/Vol] 21.0 mg/dL Normal 8.0-22.0 [facility] Comment on above: Performed By: #### A COLLIN, MG, BMP, ADIFF, GFR, CBC, HFP #### [place] [id number] CBCon 07-27-2024 Erythrocyte distribution width (RBC) [Ratio] 14.7 % Normal 11.5-15.5 [facility] Comment on above: Performed By: #### A COLLIN, MG, BMP, ADIFF, GFR, CBC, HFP #### [place] [address] Hematocrit (Bld) [Volume fraction] 35.6 % Normal 34.0-46.0 [facility] Comment on above: Performed By: #### A COLLIN, MG, BMP, ADIFF, GFR, CBC, HFP #### [place] [address] Hgb 11.9 G/dL Low 12.0-16.0 [facility] Comment on above: Performed By: #### A COLLIN, MG, BMP, ADIFF, GFR, CBC, HFP #### [place] [address] MCH (RBC) [Entitic mass] 30.1 pg Normal 27.0-33.0 [facility] Comment on above: Performed By: #### A COLLIN, MG, BMP, ADIFF, GFR, CBC, HFP #### [place] [address] MCHC 33.5 G/dL Normal 32.0-36.0 [facility] Comment on above: Performed By: #### A COLLIN, MG, BMP, ADIFF, GFR, CBC, HFP #### [place] [address] MCV (RBC) [Entitic vol] 89.9 fL Normal 80.0-99.0 [facility] Comment on above: Performed By: #### A COLLIN, MG, BMP, ADIFF, GFR, CBC, HFP #### [place] [address] Platelet 322 10 3/mcL Normal 150-450 [facility] Comment on above: Performed By: #### A COLLIN, MG, BMP, ADIFF, GFR, CBC, HFP #### [place] [address] Platelet mean volume (Bld) [Entitic vol] 7.8 fL Normal 6.6-10.5 [facility] Comment on above: Performed By: #### A COLLIN, MG, BMP, ADIFF, GFR, CBC, HFP #### [place] [address] RBC 3.96 10 6/mcL Low 4.10-5.30 [facility] Comment on above: Performed By: #### A COLLIN, MG, BMP, ADIFF, GFR, CBC, HFP #### [place] [id number] WBC 9.0 10 3/mcL Normal 4.5-10.8 [facility] Comment on above: Performed By: #### A COLLIN, MG, BMP, ADIFF, GFR, CBC, HFP #### [place] [id number] [place] [address] LABORATORYOrdered By: SYSTEM SYSTEM on 07-27-2024 Basophils (Bld) [#/Vol] 0.1 103/mcL Normal 0.0 - 0.3 10^3/mcL Workflow SS Basophils/100 WBC (Bld) 1.2 % Normal 0.0 - 2.5 % Workflow SS Calcium [Mass/Vol] 9.0 mg/dL Normal 8.7 - 10. 4 mg/dL ADM SS Chloride [Moles/Vol] 106 mmol/L Normal 98 - 11 0 mEq/L ADM SS CO2 [Moles/Vol] 29 mmol/L Normal 22 - 32 mEq/L ADM SS Creatinine [Mass/Vol] 0.96 mg/dL Normal 0.50 - 1.20 mg/dL AH ADM SS Comment on above: Interpretive Data: T esting performed on [email or web address] analyzer using enzymatic creatinine methodology. Electrolyte Balance 8.0 mEq/L Normal 4.0 - 15 .0 mEq/L ADM SS Eosinophils (Bld) [#/Vol] 0.2 103/mcL Normal 0.0 - 0.7 10^3/mcL Workflow SS Eosinophils/100 WBC (Bld) 2.3 % Normal 0.0 - 6.0 % AH Workflow SS Erythrocyte distribution width (RBC) [Ratio] 14.7 % Normal 11.5 - 15.5 % AH Workflow SS Estimated Glomerular Filtration Rate 59 ml/min/1.73sqm Invalid Interpretation Code Chemistry S Comment on above: Interpretive Data: Stages of Chronic Kidney Disease (CKD) Stage Description eGFR(ml/min/1.73 sq.m.) CKD 1 Normal kidney function or >=90 normal kindney function with possible kidney damage (ex. Proteinuria) CKD 2 Kidney damage with mild loss 60-89 of kidney function CKD 3a Mild to moderate loss of kidney 45-59 function CKD 3b Moderate to severe loss of 30-44 of kindey function CKD 4 Severe loss of kidney function 15-29 CKD 5 Kidney failure <15 Note: (go live 2024) the eGFR calculation was updated to the 2020 CKD-EPI creatinine equation without a race factor to calculate the eGFR results. Glucose [Mass/Vol] 97 mg/dL Normal 82 - 115 mg/dL ADM SS Hematocrit (Bld) [Volume fraction] 35.6 % Normal 34.0 - 46.0 % AH Workflow SS Hemoglobin (Bld) [Mass/Vol] 11.9 G/dL Low 12.0 - 16.0 G/dL AH Workflow SS Lymphocytes (Bld) [#/Vol] 0.9 103/mcL Normal 0.9 - 4.3 10^3/mcL AH Workflow SS Lymphocytes/100 WBC (Bld) 10.3 % Low 20.0 - 40.0 % Workflow SS MCH (RBC) [Entitic mass] 30.1 pg Normal 27.0 - 33.0 pg Workflow SS MCHC 33.5 G/dL Normal 32.0 - 36.0 G/dL Workflow SS MCV (RBC) [Entitic vol] 89.9 fL Normal 80.0 - 99.0 fL Workflow SS Monocytes (Bld) [#/Vol] 0.8 103/mcL Normal 0.1 - 1.4 10^3/mcL AH Workflow SS Monocytes/100 WBC (Bld) 8.6 % Normal 2.0 - 13.0 % Workflow SS Neutrophils (Bld) [#/Vol] 7.0 103/mcL Normal 2.3 - 8.1 10^3/mcL AH Workflow SS Neutrophils/100 WBC (Bld) 77.6 % High 50.0 - 75.0 % Workflow SS Platelet mean volume (Bld) [Entitic vol] 7.8 fL Normal 6.6 - 10.5 fL Workflow SS Platelets (Bld) [#/Vol] 322 103/mcL Normal 150 - 450 10^3/mcL AH Workflow SS Potassium [Moles/Vol] 4.1 mmol/L Normal 3.5 - 5.0 mEq/L AH ADM SS RBC (Bld) [#/Vol] 3.96 106/mcL Low 4.10 - 5.3 0 10^6/mcL AH Workflow SS Sodium [Moles/Vol] 143 mmol/L Normal 136 - 145 mEq/L ADM SS Urea nitrogen [Mass/Vol] 21.0 mg/dL Normal 8.0 - 22.0 mg/dL ADM SS Urea nitrogen/Creatinine [Mass ratio] 21.9 ratio Normal 10.0 - 22.0 ratio AH ADM SS WBC (Bld) [#/Vol] 9.0 103/mcL Normal 4.5 - 10.8 10^3/mcL Workflow SS .Auto Diffon 07-05-2024 Basophil, Absolute 0.1 10 3/mcL Normal 0.0-0.2 [facility] Comment on above: Performed By: #### M DW, MG, GFR, BMP, CBC, ANEU, TROPHS, ADIFF #### [address] [address] Basophils/100 WBC (Bld) 1.1 % Normal 0.0-2.5 [facility] Comment on above: Performed By: #### M DW, MG, GFR, BMP, CBC, ANEU, TROPHS, ADIFF #### [address] [address] Eosinophil, Absolute 0.3 10 3/mcL Normal 0.0-0.7 [facility] Comment on above: Performed By: #### M DW, MG, GFR, BMP, CBC, ANEU, TROPHS, ADIFF #### [address] [address] Eosinophils/100 WBC (Bld) 2.0 % Normal 0.0-7.0 [facility] Comment on above: Performed By: #### M DW, MG, GFR, BMP, CBC, ANEU, TROPHS, ADIFF #### [address] [address] Lymphocyte, Absolute 1.1 10 3/mcL Normal 0.9-4.3 [facility] Comment on above: Performed By: #### M DW, MG, GFR, BMP, CBC, ANEU, TROPHS, ADIFF #### [address] [address] Lymphocytes/100 WBC (Bld) 8.8 % Low 20.0-40.0 [facility] Comment on above: Performed By: #### M DW, MG, GFR, BMP, CBC, ANEU, TROPHS, ADIFF #### [address] [address] Monocyte, Absolute 0.8 10 3/mcL Normal 0.1-1.4 [facility] Comment on above: Performed By: #### M DW, MG, GFR, BMP, CBC, ANEU, TROPHS, ADIFF #### [place] [address] [place], [place] [address] Monocytes/100 WBC (Bld) 6.7 % Normal 2.0-13.0 [facility] Comment on above: Performed By: #### M DW, MG, GFR, BMP, CBC, ANEU, TROPHS, ADIFF #### [place] [address] [place], [place] [address] Neutrophils/100 WBC (Bld) 81.4 % High 50.0-75.0 [facility] Comment on above: Performed By: #### M DW, MG, GFR, BMP, CBC, ANEU, TROPHS, ADIFF #### [address] [address] .GFRon 07-05-2024 Estimated Glomerular Filtration Rate 53 ml/min/1.73sqm Normal [facility] Comment on above: Result Comment: Stages of Chronic Kidney Disease (CKD) Stage Description eGFR(ml/min/1.73 sq.m.) CKD 1 Normal kidney function or >=90 normal kindney function with possible kidney damage (ex. Proteinuria) CKD 2 Kidney damage with mild loss 60-89 of kidney function CKD 3a Mild to moderate loss of kidney 45-59 function CKD 3b Moderate to severe loss of 30-44 of kindey function CKD 4 Severe loss of kidney function 15-29 CKD 5 Kidney failure <15 Note: (go live 2024) the eGFR calculation was updated to the 2020 CKD-EPI creatinine equation without a race factor to calculate the eGFR results. Performed By: #### M DW, MG, GFR, BMP, CBC, ANEU, TROPHS, ADIFF #### [place] [address] [place], [place] [address] .MDWon 07-05-2024 Monocyte Distribution Width 16.20 Normal 0.00-20.00 [facility] Comment on above: Result Comment: For ED adult patients suspected of sepsis, MDW<=20.0 does not rule out sepsis or risk of sepsis Performed By: #### M DW, MG, GFR, BMP, CBC, ANEU, TROPHS, ADIFF #### [address] [address] .NEUABSon 07-05-2024 Neutrophil, Absolute 10.2 10 3/mcL High 2.3-8.1 [facility] Comment on above: Performed By: #### M DW, MG, GFR, BMP, CBC, ANEU, TROPHS, ADIFF #### [address] [address] BMPon 07-05-2024 BUN/Creatinine Ratio 23 ratio Normal 7-27 [facility] Comment on above: Performed By: #### M DW, MG, GFR, BMP, CBC, ANEU, TROPHS, ADIFF #### [address] [address] Calcium [Mass/Vol] 9.8 mg/dL Normal 8.4-10.2 [facility] Comment on above: Performed By: #### M DW, MG, GFR, BMP, CBC, ANEU, TROPHS, ADIFF #### [address] [address] Chloride [Moles/Vol] 101 mmol/L Normal 98-107 [facility] Comment on above: Performed By: #### M DW, MG, GFR, BMP, CBC, ANEU, TROPHS, ADIFF #### [address] [address] CO2 [Moles/Vol] 32 mmol/L High 23-31 [facility] Comment on above: Performed By: #### M DW, MG, GFR, BMP, CBC, ANEU, TROPHS, ADIFF #### [place] [id number] Creatinine [Mass/Vol] 1.06 mg/dL High 0.55-1.[address] [facility] Comment on above: Result Comment: Test ing performed on Siemens Dimension EXL analyzer using a modified kinetic Josse technique. Performed By: #### M DW, MG, GFR, BMP, CBC, ANEU, TROPHS, ADIFF #### [address] [address] Electrolyte Balance 6.0 mEq/L Normal 4.0-15.0 [facility] Comment on above: Performed By: #### M DW, MG, GFR, BMP, CBC, ANEU, TROPHS, ADIFF #### [address] [address] Glucose [Mass/Vol] 101 mg/dL Normal 83-110 [facility] Comment on above: Performed By: #### M DW, MG, GFR, BMP, CBC, ANEU, TROPHS, ADIFF #### [address] [address] Potassium [Moles/Vol] 4.1 mmol/L Normal 3.5-5.[address] [facility] Comment on above: Performed By: #### M DW, MG, GFR, BMP, CBC, ANEU, TROPHS, ADIFF #### [address] [address] Sodium [Moles/Vol] 139 mmol/L Normal 136-145 [facility] Comment on above: Performed By: #### M DW, MG, GFR, BMP, CBC, ANEU, TROPHS, ADIFF #### [address] [address] Urea nitrogen [Mass/Vol] 24 mg/dL High 7-18 [facility] Comment on above: Performed By: #### M DW, MG, GFR, BMP, CBC, ANEU, TROPHS, ADIFF #### [address] [address] CBCon 07-05-2024 Erythrocyte distribution width (RBC) [Ratio] 14.6 % Normal 11.5-15.5 [facility] Comment on above: Performed By: #### M DW, MG, GFR, BMP, CBC, ANEU, TROPHS, ADIFF #### [address] [address] Hematocrit (Bld) [Volume fraction] 38.7 % Normal 34.0-46.0 [facility] Comment on above: Performed By: #### M DW, MG, GFR, BMP, CBC, ANEU, TROPHS, ADIFF #### [place] [address] Hgb 13.0 G/dL Normal 12.0-16.0 [facility] Comment on above: Performed By: #### M DW, MG, GFR, BMP, CBC, ANEU, TROPHS, ADIFF #### [place] [address] MCH (RBC) [Entitic mass] 29.8 pg Normal 27.0-33.0 [facility] Comment on above: Performed By: #### M DW, MG, GFR, BMP, CBC, ANEU, TROPHS, ADIFF #### [place] [address] MCHC 33.7 G/dL Normal 32.0-36.0 [facility] Comment on above: Performed By: #### M DW, MG, GFR, BMP, CBC, ANEU, TROPHS, ADIFF #### [place] [address] MCV (RBC) [Entitic vol] 88.4 fL Normal 80.0-99.0 [facility] Comment on above: Performed By: #### M DW, MG, GFR, BMP, CBC, ANEU, TROPHS, ADIFF #### [place] [address] Platelet 378 10 3/mcL Normal 150-450 [facility] Comment on above: Performed By: #### M DW, MG, GFR, BMP, CBC, ANEU, TROPHS, ADIFF #### [place] [address] Platelet mean volume (Bld) [Entitic vol] 7.4 fL Normal 6.6-10.5 [facility] Comment on above: Performed By: #### M DW, MG, GFR, BMP, CBC, ANEU, TROPHS, ADIFF #### [place] [address] RBC 4.37 10 6/mcL Normal 4.10-5.30 [facility] Comment on above: Performed By: #### M DW, MG, GFR, BMP, CBC, ANEU, TROPHS, ADIFF #### [address] [address] WBC 12.5 10 3/mcL High 4.5-10.8 [facility] Comment on above: Performed By: #### M DW, MG, GFR, BMP, CBC, ANEU, TROPHS, ADIFF #### [address] [address] MGon 07-05-2024 Magnesium [Mass/Vol] 2.2 mg/dL Normal 1.8-2.4 [facility] Comment on above: Performed By: #### M DW, MG, GFR, BMP, CBC, ANEU, TROPHS, ADIFF #### [address] [address] TROPHSon 07-05-2024 High Sensitivity Troponin I 142 ng/L High [address] Comment on above: Result Comment: High Sensitive Troponin I Reference Ranges: Female: 0-51 ng/L Male: 0-76 ng/L Testing performed on [employer] using a homogeneous sandwich chemiluminescent immunoassay based on [employer] technology. Performed By: #### M DW, MG, GFR, BMP, CBC, ANEU, TROPHS, ADIFF #### [address] [address] High Sensitivity Troponin I 146 ng/L High [address] [place] [address] Comment on above: Result Comment: High Sensitive Troponin I Reference Ranges: Female: 0-51 ng/L Male: 0-76 ng/L Testing performed on [employer] using a homogeneous sandwich chemiluminescent immunoassay based on [employer] technology. Performed By: #### M DW, MG, GFR, BMP, CBC, ANEU, TROPHS, ADIFF #### [address] [address] XR CHEST 2 VIEWSon XR CHEST 2 VIEWS ORIGINAL EXAMINATION: TWO XRAY VIEWS OF THE CHEST07/05/2024 2:49 pm COMPARISON: Chest radiograph 06/28/2024 HISTORY: ORDERING SYSTEM PROVIDED HISTORY: Reason for Exam: Chest Pain, FINDINGS: Stable heart and mediastinum. Lungs are hyperexpanded. There is some blunting of the costophrenic angles posteriorly on the lateral view that may be pleural thickening or minimal effusions. Left pleural effusion has decreased. There is no lung consolidation. Prominence of the vasculature and interstitium has also resolved. IMPRESSION: Resolution of previous interstitial edema and left pleural effusion. COPD with trace pleural effusions or thickening. Interpreted by: Stephan Patiño MD Preliminary Report By: Stephan Patiño MD Electronically signed By Stephan Patiño MD Dictated Date: 07/05/2024 3:01:04 PM Prelim Date: 07/05/2024 3:02:15 PM Sign Date: 07/05/2024 3:02:15 PM Ordering Provider: REMIGIO Mercado [facility] AMIODon 07-04-2024 Amiodarone Lvl 954 ng/mL Low [id number] [facility] Comment on above: Order Comment: Abdiaziz in venipuncture to recollect 06/29/24 800am Performed By: #### A COLLIN, MG, BMP, ADIFF, GFR, CBC, HFP #### [facility] [address] [place] [address] Desethylami Lvl 795 ng/mL Normal [facility] Comment on above: Order Comment: Abdiaziz in venipuncture to recollect 06/29/24 800am Result Comment: Note : To convert from ng/ml to ug/ml, divide the result by 1000. Reference range (amiodarone): 1.00-2.50 ug/mL. This test was developed and its performance characteristics determined by [employer]. It has not been cleared or approved by the Food and Drug Administration. Performed At: [employer] [address] [place] [id number] [facility] Ph:[phone] Performed By: #### A COLLIN, MG, BMP, ADIFF, GFR, CBC, HFP #### [address] [address] .Auto Diffon 07-01-2024 Basophil, Absolute 0.1 10 3/mcL Normal 0.0-0.3 [facility] Comment on above: Performed By: #### A COLLIN, MG, BMP, ADIFF, GFR, CBC, HFP #### [address] [address] Basophils/100 WBC (Bld) 1.0 % Normal 0.0-2.5 [facility] Comment on above: Performed By: #### A COLLIN, MG, BMP, ADIFF, GFR, CBC, HFP #### [address] [address] Eosinophil, Absolute 0.3 10 3/mcL Normal 0.0-0.7 [facility] Comment on above: Performed By: #### A COLLIN, MG, BMP, ADIFF, GFR, CBC, HFP #### [address] [address] Eosinophils/100 WBC (Bld) 3.1 % Normal 0.0-6.0 [facility] Comment on above: Performed By: #### A COLLIN, MG, BMP, ADIFF, GFR, CBC, HFP #### [address] [address] Lymphocyte, Absolute 0.9 10 3/mcL Normal 0.9-4.3 [facility] Comment on above: Performed By: #### A COLLIN, MG, BMP, ADIFF, GFR, CBC, HFP #### [address] [address] Lymphocytes/100 WBC (Bld) 9.1 % Low 20.0-40.0 [facility] Comment on above: Performed By: #### A COLLIN, MG, BMP, ADIFF, GFR, CBC, HFP #### [address] [address] Monocyte, Absolute 0.8 10 3/mcL Normal 0.1-1.4 [facility] Comment on above: Performed By: #### A COLLIN, MG, BMP, ADIFF, GFR, CBC, HFP #### [address] [address] Monocytes/100 WBC (Bld) 8.6 % Normal 2.0-13.0 [facility] Comment on above: Performed By: #### A COLLIN, MG, BMP, ADIFF, GFR, CBC, HFP #### [address] [address] Neutrophils/100 WBC (Bld) 78.2 % High 50.0-75.0 [facility] Comment on above: Performed By: #### A COLLIN, MG, BMP, ADIFF, GFR, CBC, HFP #### [address] [address] .GFRon 07-01-2024 Estimated Glomerular Filtration Rate 40 ml/min/1.73sqm Normal [facility] Comment on above: Result Comment: Stages of Chronic Kidney Disease (CKD) Stage Description eGFR(ml/min/1.73 sq.m.) CKD 1 Normal kidney function or >=90 normal kindney function with possible kidney damage (ex. Proteinuria) CKD 2 Kidney damage with mild loss 60-89 of kidney function CKD 3a Mild to moderate loss of kidney 45-59 function CKD 3b Moderate to severe loss of 30-44 of kindey function CKD 4 Severe loss of kidney function 15-29 CKD 5 Kidney failure <15 Note: (go live 2024) the eGFR calculation was updated to the 2020 CKD-EPI creatinine equation without a race factor to calculate the eGFR results. Performed By: #### C MP, MG, GFR #### [address] [address] .NEUABSon 07-01-2024 Neutrophil, Absolute 7.7 10 3/mcL Normal 2.3-8.1 [facility] Comment on above: Performed By: #### C MP, MG, GFR #### [address] [address] BMPon 07-01-2024 BUN/Creatinine Ratio 25.4 ratio High 10.0-22.0 [facility] Comment on above: Performed By: #### C MP, MG, GFR #### [address] [address] Calcium [Mass/Vol] 9.4 mg/dL Normal 8.7-10.4 [facility] Comment on above: Performed By: #### C MP, MG, GFR #### [address] [address] Chloride [Moles/Vol] 101 mmol/L Normal 98-110 [facility] Comment on above: Performed By: #### C MP, MG, GFR #### [address] [address] CO2 [Moles/Vol] 31 mmol/L Normal 22-32 [facility] Comment on above: Performed By: #### C MP, MG, GFR #### [address] [address] Creatinine [Mass/Vol] 1.34 mg/dL High 0.50-1.20 [facility] Comment on above: Result Comment: Test ing performed on [email or web address] analyzer using enzymatic creatinine methodology. Performed By: #### C MP, MG, GFR #### [place] [id number] Electrolyte Balance 4.0 mEq/L Normal 4.0-15.0 [facility] Comment on above: Performed By: #### C MP, MG, GFR #### [place] [id number] Glucose [Mass/Vol] 90 mg/dL Normal 82-115 [facility] Comment on above: Performed By: #### C MP, MG, GFR #### [place] [id number] Potassium [Moles/Vol] 4.1 mmol/L Normal 3.5-5.0 [facility] Comment on above: Performed By: #### C MP, MG, GFR #### [place] [id number] Sodium [Moles/Vol] 136 mmol/L Normal 136-145 [facility] Comment on above: Performed By: #### C MP, MG, GFR #### [address] [address] Urea nitrogen [Mass/Vol] 34.0 mg/dL High 8.0-22.0 [facility] Comment on above: Performed By: #### C MP, MG, GFR #### [address] [address] CBCon 03-23-2025 Erythrocyte distribution width (RBC) [Ratio] 14.8 % Normal 11.5-15.5 [facility] Comment on above: Performed By: #### A COLLIN, MG, BMP, ADIFF, GFR, CBC, HFP #### [place] [address] Hematocrit (Bld) [Volume fraction] 35.7 % Normal 34.0-46.0 [facility] Comment on above: Performed By: #### A COLLIN, MG, BMP, ADIFF, GFR, CBC, HFP #### [place] [address] Hgb 12.3 G/dL Normal 12.0-16.0 [facility] Comment on above: Performed By: #### A COLLIN, MG, BMP, ADIFF, GFR, CBC, HFP #### [place] [address] MCH (RBC) [Entitic mass] 30.8 pg Normal 27.0-33.0 [facility] Comment on above: Performed By: #### A COLLIN, MG, BMP, ADIFF, GFR, CBC, HFP #### [place] [address] MCHC 34.4 G/dL Normal 32.0-36.0 [facility] Comment on above: Performed By: #### A COLLIN, MG, BMP, ADIFF, GFR, CBC, HFP #### [place] [address] MCV (RBC) [Entitic vol] 89.5 fL Normal 80.0-99.0 [facility] Comment on above: Performed By: #### A COLLIN, MG, BMP, ADIFF, GFR, CBC, HFP #### [place] [address] Platelet 302 10 3/mcL Normal 150-450 [facility] Comment on above: Performed By: #### A COLLIN, MG, BMP, ADIFF, GFR, CBC, HFP #### [place] [address] Platelet mean volume (Bld) [Entitic vol] 7.4 fL Normal 6.6-10.5 [facility] Comment on above: Performed By: #### A COLLIN, MG, BMP, ADIFF, GFR, CBC, HFP #### [place] [id number] [place] [address] RBC 3.99 10 6/mcL Low 4.10-5.30 [facility] Comment on above: Performed By: #### A COLLIN, MG, BMP, ADIFF, GFR, CBC, HFP #### [address] [address] WBC 9.8 10 3/mcL Normal 4.5-10.8 [facility] Comment on above: Performed By: #### A COLLIN, MG, BMP, ADIFF, GFR, CBC, HFP #### [address] [address] LABORATORYOrdered By: SYSTEM SYSTEM on 07-01-2024 Basophils (Bld) [#/Vol] 0.1 103/mcL Normal 0.0 - 0.3 10^3/mcL Workflow SS Basophils/100 WBC (Bld) 1.0 % Normal 0.0 - 2.5 % Workflow SS Calcium [Mass/Vol] 9.4 mg/dL Normal 8.7 - 10. 4 mg/dL ADM SS Chloride [Moles/Vol] 101 mmol/L Normal 98 - 11 0 mEq/L ADM SS CO2 [Moles/Vol] 31 mmol/L Normal 22 - 32 mEq/L ADM SS Creatinine [Mass/Vol] 1.34 mg/dL High 0.50 - 1.20 mg/dL ADM SS Comment on above: Interpretive Data: T esting performed on [email or web address] analyzer using enzymatic creatinine methodology. Electrolyte Balance 4.0 mEq/L Normal 4.0 - 15 .0 mEq/L ADM SS Eosinophils (Bld) [#/Vol] 0.3 103/mcL Normal 0.0 - 0.7 10^3/mcL Workflow SS Eosinophils/100 WBC (Bld) 3.1 % Normal 0.0 - 6.0 % Workflow SS Erythrocyte distribution width (RBC) [Ratio] 14.8 % Normal 11.5 - 15.5 % Workflow SS Estimated Glomerular Filtration Rate 40 ml/min/1.73sqm Invalid Interpretation Code ADM SS Comment on above: Interpretive Data: Stages of Chronic Kidney Disease (CKD) Stage Description eGFR(ml/min/1.73 sq.m.) CKD 1 Normal kidney function or >=90 normal kindney function with possible kidney damage (ex. Proteinuria) CKD 2 Kidney damage with mild loss 60-89 of kidney function CKD 3a Mild to moderate loss of kidney 45-59 function CKD 3b Moderate to severe loss of 30-44 of kindey function CKD 4 Severe loss of kidney function 15-29 CKD 5 Kidney failure <15 Note: (go live 2024) the eGFR calculation was updated to the 2020 CKD-EPI creatinine equation without a race factor to calculate the eGFR results. Glucose [Mass/Vol] 90 mg/dL Normal 82 - 115 mg/dL AH ADM SS Hematocrit (Bld) [Volume fraction] 35.7 % Normal 34.0 - 46.0 % AH Workflow SS Hemoglobin (Bld) [Mass/Vol] 12.3 G/dL Normal 12.0 - 16.0 G/dL AH Workflow SS Lymphocytes (Bld) [#/Vol] 0.9 103/mcL Normal 0.9 - 4.3 10^3/mcL AH Workflow SS Lymphocytes/100 WBC (Bld) 9.1 % Low 20.0 - 40.0 % AH Workflow SS Magnesium [Mass/Vol] 2.4 mg/dL Normal 1.6 - 2 .4 mg/dL AH ADM SS MCH (RBC) [Entitic mass] 30.8 pg Normal 27.0 - 33.0 pg AH Workflow SS MCHC 34.4 G/dL Normal 32.0 - 36.0 G/dL AH Workflow SS MCV (RBC) [Entitic vol] 89.5 fL Normal 80.0 - 99.0 fL AH Workflow SS Monocytes (Bld) [#/Vol] 0.8 103/mcL Normal 0.1 - 1.4 10^3/mcL AH Workflow SS Monocytes/100 WBC (Bld) 8.6 % Normal 2.0 - 13.0 % AH Workflow SS Neutrophils (Bld) [#/Vol] 7.7 103/mcL Normal 2.3 - 8.1 10^3/mcL AH Workflow SS Neutrophils/100 WBC (Bld) 78.2 % High 50.0 - 75.0 % AH Workflow SS Platelet mean volume (Bld) [Entitic vol] 7.4 fL Normal 6.6 - 10.5 fL AH Workflow SS Platelets (Bld) [#/Vol] 302 103/mcL Normal 150 - 450 10^3/mcL AH Workflow SS Potassium [Moles/Vol] 4.1 mmol/L Normal 3.5 - 5.0 mEq/L AH ADM SS RBC (Bld) [#/Vol] 3.99 106/mcL Low 4.10 - 5.3 0 10^6/mcL AH Workflow SS Sodium [Moles/Vol] 136 mmol/L Normal 136 - 145 mEq/L AH ADM SS Urea nitrogen [Mass/Vol] 34.0 mg/dL High 8.0 - 22.0 mg/dL ADM SS Urea nitrogen/Creatinine [Mass ratio] 25.4 ratio High 10.0 - 22.0 ratio AH ADM SS WBC (Bld) [#/Vol] 9.8 103/mcL Normal 4.5 - 10.8 10^3/mcL Workflow SS MGon 07-01-2024 Magnesium [Mass/Vol] 2.4 mg/dL Normal 1.6-2.4 [facility] Comment on above: Performed By: #### C MP, MG, GFR #### [address] [address] .Auto Diffon 06-30-2024 Basophil, Absolute 0.1 10 3/mcL Normal 0.0-0.3 [facility] Comment on above: Performed By: #### C MP, MG, GFR #### [address] [address] Basophils/100 WBC (Bld) 0.9 % Normal 0.0-2.5 [facility] Comment on above: Performed By: #### C MP, MG, GFR #### [address] [address] Eosinophil, Absolute 0.3 10 3/mcL Normal 0.0-0.7 [facility] Comment on above: Performed By: #### C MP, MG, GFR #### [address] [address] Eosinophils/100 WBC (Bld) 2.0 % Normal 0.0-6.0 [facility] Comment on above: Performed By: #### C MP, MG, GFR #### [address] [address] Lymphocyte, Absolute 1.2 10 3/mcL Normal 0.9-4.3 [facility] Comment on above: Performed By: #### C MP, MG, GFR #### [address] [address] Lymphocytes/100 WBC (Bld) 9.6 % Low 20.0-40.0 [facility] Comment on above: Performed By: #### C MP, MG, GFR #### [address] [address] Monocyte, Absolute 1.0 10 3/mcL Normal 0.1-1.4 [facility] Comment on above: Performed By: #### C MP, MG, GFR #### [address] [address] Monocytes/100 WBC (Bld) 7.6 % Normal 2.0-13.0 [facility] Comment on above: Performed By: #### C MP, MG, GFR #### [address] [address] Neutrophils/100 WBC (Bld) 79.9 % High 50.0-75.0 [facility] Comment on above: Performed By: #### C MP, MG, GFR #### [address] [address] Basophil, Absolute 0.1 10 3/mcL Normal 0.0-0.3 [facility] Comment on above: Performed By: #### G FR, BMP #### [address] [address] Basophils/100 WBC (Bld) 0.9 % Normal 0.0-2.5 [facility] Comment on above: Performed By: #### G FR, BMP #### [address] [address] Eosinophil, Absolute 0.3 10 3/mcL Normal 0.0-0.7 [facility] Comment on above: Performed By: #### G FR, BMP #### [address] [address] Eosinophils/100 WBC (Bld) 2.5 % Normal 0.0-6.0 [facility] Comment on above: Performed By: #### G FR, BMP #### [facility] [address] [place] [address] Lymphocyte, Absolute 1.2 10 3/mcL Normal 0.9-4.3 [facility] Comment on above: Performed By: #### G FR, BMP #### [facility] [address] [place] [address] Lymphocytes/100 WBC (Bld) 10.3 % Low 20.0-40.0 [facility] Comment on above: Performed By: #### G FR, BMP #### [facility] [address] [place] [address] Monocyte, Absolute 1.0 10 3/mcL Normal 0.1-1.4 [facility] Comment on above: Performed By: #### G FR, BMP #### [facility] [address] [place] [address] Monocytes/100 WBC (Bld) 9.0 % Normal 2.0-13.0 [facility] Comment on above: Performed By: #### G FR, BMP #### [facility] [address] [place] [address] Neutrophils/100 WBC (Bld) 77.3 % High 50.0-75.0 [facility] Comment on above: Performed By: #### G FR, BMP #### [facility] [address] [place] [address] .GFRon 06-30-2024 Estimated Glomerular Filtration Rate 33 ml/min/1.73sqm Normal [facility] Comment on above: Result Comment: Stages of Chronic Kidney Disease (CKD) Stage Description eGFR(ml/min/1.73 sq.m.) CKD 1 Normal kidney function or >=90 normal kindney function with possible kidney damage (ex. Proteinuria) CKD 2 Kidney damage with mild loss 60-89 of kidney function CKD 3a Mild to moderate loss of kidney 45-59 function CKD 3b Moderate to severe loss of 30-44 of kindey function CKD 4 Severe loss of kidney function 15-29 CKD 5 Kidney failure <15 Note: (go live 2024) the eGFR calculation was updated to the 2021 CKD-EPI creatinine equation without a race factor to calculate the eGFR results. Performed By: #### G FR, BMP #### [address] [address] .NEUABSon 06-30-2024 Neutrophil, Absolute 10.1 10 3/mcL High 2.3-8.1 [facility] Comment on above: Performed By: #### C MP, MG, GFR #### [place] [id number] Neutrophil, Absolute 8.8 10 3/mcL High 2.3-8.1 [facility] Comment on above: Performed By: #### G FR, BMP #### [address] 06-30-2024 BUN/Creatinine Ratio 27.2 ratio High 10.0-22.0 [facility] Comment on above: Performed By: #### G FR, BMP #### [place] [address] Calcium [Mass/Vol] 8.8 mg/dL Normal 8.7-10.4 [facility] Comment on above: Performed By: #### G FR, BMP #### [address] [address] Chloride [Moles/Vol] 100 mmol/L Normal 98-110 [facility] Comment on above: Performed By: #### G FR, BMP #### [place] [id number] CO2 [Moles/Vol] 31 mmol/L Normal 22-32 [facility] Comment on above: Performed By: #### G FR, BMP #### [address] [address] Creatinine [Mass/Vol] 1.58 mg/dL High 0.50-1.20 [facility] Comment on above: Result Comment: Test ing performed on [email or web address] analyzer using enzymatic creatinine methodology. Performed By: #### G FR, BMP #### [address] [address] Electrolyte Balance 5.0 mEq/L Normal 4.0-15.0 [facility] Comment on above: Performed By: #### G FR, BMP #### [address] [address] Glucose [Mass/Vol] 95 mg/dL Normal 82-115 [facility] Comment on above: Performed By: #### G FR, BMP #### [address] [address] Potassium [Moles/Vol] 4.2 mmol/L Normal 3.5-5.0 [facility] Comment on above: Performed By: #### G FR, BMP #### [address] [address] Sodium [Moles/Vol] 136 mmol/L Normal 136-145 [facility] Comment on above: Performed By: #### G FR, BMP #### [address] [address] Urea nitrogen [Mass/Vol] 43.0 mg/dL High 8.0-22.0 [facility] Comment on above: Performed By: #### G FR, BMP #### [address] [address] CBCon 06-30-2024 Erythrocyte distribution width (RBC) [Ratio] 14.9 % Normal 11.5-15.5 [facility] Comment on above: Performed By: #### C MP, MG, GFR #### [address] [address] Hematocrit (Bld) [Volume fraction] 35.9 % Normal 34.0-46.0 [facility] Comment on above: Performed By: #### C MP, MG, GFR #### [address] [address] Hgb 12.2 G/dL Normal 12.0-16.0 [facility] Comment on above: Performed By: #### C MP, MG, GFR #### [address] [address] MCH (RBC) [Entitic mass] 30.0 pg Normal 27.0-33.0 [facility] Comment on above: Performed By: #### C MP, MG, GFR #### [place] [id number] MCHC 33.9 G/dL Normal 32.0-36.0 [facility] Comment on above: Performed By: #### C MP, MG, GFR #### [place] [id number] MCV (RBC) [Entitic vol] 88.4 fL Normal 80.0-99.0 [facility] Comment on above: Performed By: #### C MP, MG, GFR #### [place] [address] Platelet 331 10 3/mcL Normal 150-450 [facility] Comment on above: Performed By: #### C MP, MG, GFR #### [place] [address] Platelet mean volume (Bld) [Entitic vol] 7.6 fL Normal 6.6-10.5 [facility] Comment on above: Performed By: #### C MP, MG, GFR #### [place] [address] RBC 4.06 10 6/mcL Low 4.10-5.30 [facility] Comment on above: Performed By: #### C MP, MG, GFR #### [place] [id number] WBC 12.6 10 3/mcL High 4.5-10.8 [facility] Comment on above: Performed By: #### C MP, MG, GFR #### [place] [address] Erythrocyte distribution width (RBC) [Ratio] 14.9 % Normal 11.5-15.5 [facility] Comment on above: Performed By: #### G FR, BMP #### [place] [address] Hematocrit (Bld) [Volume fraction] 35.7 % Normal 34.0-46.0 [facility] Comment on above: Performed By: #### G FR, BMP #### [place] [address] Hgb 12.4 G/dL Normal 12.0-16.0 [facility] Comment on above: Performed By: #### G , BMP #### [place] [address] MCH (RBC) [Entitic mass] 31.1 pg Normal 27.0-33.0 [facility] Comment on above: Performed By: #### G FR, BMP #### [place] [address] MCHC 34.6 G/dL Normal 32.0-36.0 [facility] Comment on above: Performed By: #### G FR, BMP #### [place] [address] MCV (RBC) [Entitic vol] 90.0 fL Normal 80.0-99.0 [facility] Comment on above: Performed By: #### G FR, BMP #### [place] [address] Platelet 329 10 3/mcL Normal 150-450 [facility] Comment on above: Performed By: #### G , BMP #### [place] [address] Platelet mean volume (Bld) [Entitic vol] 7.2 fL Normal 6.6-10.5 [facility] Comment on above: Performed By: #### G FR, BMP #### [place] [address] RBC 3.97 10 6/mcL Low 4.10-5.30 [facility] Comment on above: Performed By: #### G FR, BMP #### [place] [address] WBC 11.4 10 3/mcL High 4.5-10.8 [facility] Comment on above: Performed By: #### G FR, BMP #### [place] [address] CT THORAX W/O CONTRASTon CT THORAX W/O CONTRAST ORIGINAL HISTORY: Short of breath COMPARISON: 21 October 2021 TECHNIQUE: Chest CT with sagittal and coronal reconstructions. This exam was performed according to our departmental dose optimization program, and includes the following measures where applicable: automated exposure control, adjustment of the mAs and/or kVp according to patient size and/or exam, and an iterative reconstruction algorithm. FINDINGS: There are small pleural effusions and there is mild associated atelectasis and or consolidation. There is a smaller focus of irregular consolidation in the peripheral left lower lobe. There is atelectasis in the lingula. There are mild underlying emphysematous changes. No lymphadenopathy is seen; there are calcified mediastinal lymph nodes. Chest wall structures are intact. IMPRESSION: Small effusions with associated atelectasis and or consolidation, new since the comparison.. Small area of consolidation in the left lower lobe. Mild emphysematous disease. Interpreted by: Rocco Wilson MD Preliminary Report By: Rocco Wilson MD Electronically signed By Rocco Wilson MD Dictated Date: 06/30/2024 8:41:59 AM Prelim Date: 06/30/2024 8:44:59 AM Sign Date: 06/30/2024 8:44:59 AM Ordering Provider: ISAURA JACKSON [facility] MAIN LABORATORYOrdered By: SYSTEM SYSTEM on 06-30-2024 Basophils (Bld) [#/Vol] 0.1 103/mcL Normal 0.0 - 0.3 10^3/mcL AH Workflow SS Basophils/100 WBC (Bld) 0.9 % Normal 0.0 - 2.5 % AH Workflow SS Eosinophils (Bld) [#/Vol] 0.3 103/mcL Normal 0.0 - 0.7 10^3/mcL AH Workflow SS Eosinophils/100 WBC (Bld) 2.0 % Normal 0.0 - 6.0 % AH Workflow SS Erythrocyte distribution width (RBC) [Ratio] 14.9 % Normal 11.5 - 15.5 % AH Workflow SS Hematocrit (Bld) [Volume fraction] 35.9 % Normal 34.0 - 46.0 % AH Workflow SS Hemoglobin (Bld) [Mass/Vol] 12.2 G/dL Normal 12.0 - 16.0 G/dL [facility] Workflow SS Lymphocytes (Bld) [#/Vol] 1.2 103/mcL Normal 0.9 - 4.3 10^3/mcL [facility] Workflow SS Lymphocytes/100 WBC (Bld) 9.6 % Low 20.0 - 40.0 % [facility] Workflow SS MCH (RBC) [Entitic mass] 30.0 pg Normal 27.0 - 33.0 pg [facility] Workflow SS MCHC 33.9 G/dL Normal 32.0 - 36.0 G/dL AH Workflow SS MCV (RBC) [Entitic vol] 88.4 fL Normal 80.0 - 99.0 fL AH Workflow SS Monocytes (Bld) [#/Vol] 1.0 103/mcL Normal 0.1 - 1.4 10^3/mcL AH Workflow SS Monocytes/100 WBC (Bld) 7.6 % Normal 2.0 - 13.0 % AH Workflow SS Neutrophils (Bld) [#/Vol] 10.1 103/mcL High 2.3 - 8.1 10^3/mcL AH Workflow SS Neutrophils/100 WBC (Bld) 79.9 % High 50.0 - 75.0 % AH Workflow SS Platelet mean volume (Bld) [Entitic vol] 7.6 fL Normal 6.6 - 10.5 fL AH Workflow SS Platelets (Bld) [#/Vol] 331 103/mcL Normal 150 - 450 10^3/mcL AH Workflow SS RBC (Bld) [#/Vol] 4.06 106/mcL Low 4.10 - 5.3 0 10^6/mcL AH Workflow SS WBC (Bld) [#/Vol] 12.6 103/mcL High 4.5 - 10.8 10^3/mcL AH Workflow SS Basophils (Bld) [#/Vol] 0.1 103/mcL Normal 0.0 - 0.3 10^3/mcL AH Workflow SS Basophils/100 WBC (Bld) 0.9 % Normal 0.0 - 2.5 % AH Workflow SS Calcium [Mass/Vol] 8.8 mg/dL Normal 8.7 - 10. 4 mg/dL AH ADM SS Chloride [Moles/Vol] 100 mmol/L Normal 98 - 11 0 mEq/L AH ADM SS CO2 [Moles/Vol] 31 mmol/L Normal 22 - 32 mEq/L AH ADM SS Creatinine [Mass/Vol] 1.58 mg/dL High 0.50 - 1.20 mg/dL AH ADM SS Comment on above: Interpretive Data: T esting performed on [id number] analyzer using enzymatic creatinine methodology. Electrolyte Balance 5.0 mEq/L Normal 4.0 - 15 .0 mEq/L AH ADM SS Eosinophils (Bld) [#/Vol] 0.3 103/mcL Normal 0.0 - 0.7 10^3/mcL Workflow SS Eosinophils/100 WBC (Bld) 2.5 % Normal 0.0 - 6.0 % Workflow SS Erythrocyte distribution width (RBC) [Ratio] 14.9 % Normal 11.5 - 15.5 % Workflow SS Estimated Glomerular Filtration Rate 33 ml/min/1.73sqm Invalid Interpretation Code ADM SS Comment on above: Interpretive Data: Stages of Chronic Kidney Disease (CKD) Stage Description eGFR(ml/min/1.73 sq.m.) CKD 1 Normal kidney function or >=90 normal kindney function with possible kidney damage (ex. Proteinuria) CKD 2 Kidney damage with mild loss 60-89 of kidney function CKD 3a Mild to moderate loss of kidney 45-59 function CKD 3b Moderate to severe loss of 30-44 of kindey function CKD 4 Severe loss of kidney function 15-29 CKD 5 Kidney failure <15 Note: (go live 2024) the eGFR calculation was updated to the 2020 CKD-EPI creatinine equation without a race factor to calculate the eGFR results. Glucose [Mass/Vol] 95 mg/dL Normal 82 - 115 mg/dL ADM SS Hematocrit (Bld) [Volume fraction] 35.7 % Normal 34.0 - 46.0 % Workflow SS Hemoglobin (Bld) [Mass/Vol] 12.4 G/dL Normal 12.0 - 16.0 G/dL Workflow SS Lymphocytes (Bld) [#/Vol] 1.2 103/mcL Normal 0.9 - 4.3 10^3/mcL Workflow SS Lymphocytes/100 WBC (Bld) 10.3 % Low 20.0 - 40.0 % Workflow SS Magnesium [Mass/Vol] 2.2 mg/dL Normal 1.6 - 2 .4 mg/dL ADM SS MCH (RBC) [Entitic mass] 31.1 pg Normal 27.0 - 33.0 pg Workflow SS MCHC 34.6 G/dL Normal 32.0 - 36.0 G/dL Workflow SS MCV (RBC) [Entitic vol] 90.0 fL Normal 80.0 - 99.0 fL Workflow SS Monocytes (Bld) [#/Vol] 1.0 103/mcL Normal 0.1 - 1.4 10^3/mcL Workflow SS Monocytes/100 WBC (Bld) 9.0 % Normal 2.0 - 13.0 % Workflow SS Neutrophils (Bld) [#/Vol] 8.8 103/mcL High 2.3 - 8.1 10^3/mcL Workflow SS Neutrophils/100 WBC (Bld) 77.3 % High 50.0 - 75.0 % Workflow SS Platelet mean volume (Bld) [Entitic vol] 7.2 fL Normal 6.6 - 10.5 fL Workflow SS Platelets (Bld) [#/Vol] 329 103/mcL Normal 150 - 450 10^3/mcL AH Workflow SS Potassium [Moles/Vol] 4.2 mmol/L Normal 3.5 - 5.0 mEq/L AH ADM SS RBC (Bld) [#/Vol] 3.97 106/mcL Low 4.10 - 5.3 0 10^6/mcL Workflow SS Sodium [Moles/Vol] 136 mmol/L Normal 136 - 145 mEq/L ADM SS Urea nitrogen [Mass/Vol] 43.0 mg/dL High 8.0 - 22.0 mg/dL ADM SS Urea nitrogen/Creatinine [Mass ratio] 27.2 ratio High 10.0 - 22.0 ratio ADM SS WBC (Bld) [#/Vol] 11.4 103/mcL High 4.5 - 10.8 10^3/mcL Workflow SS MGon 06-30-2024 Magnesium [Mass/Vol] 2.2 mg/dL Normal 1.6-2.4 [facility] Comment on above: Performed By: #### G FR, BMP #### [address] [address] .Auto Diffon 06-29-2024 Basophil, Absolute 0.1 10 3/mcL Normal 0.0-0.3 [facility] Comment on above: Performed By: #### A COLLIN, MG, BMP, ADIFF, GFR, CBC, HFP #### [address] [address] Basophils/100 WBC (Bld) 0.9 % Normal 0.0-2.5 [facility] Comment on above: Performed By: #### A COLLIN, MG, BMP, ADIFF, GFR, CBC, HFP #### [address] [address] Eosinophil, Absolute 0.2 10 3/mcL Normal 0.0-0.7 [facility] Comment on above: Performed By: #### A COLLIN, MG, BMP, ADIFF, GFR, CBC, HFP #### [address] [address] Eosinophils/100 WBC (Bld) 2.2 % Normal 0.0-6.0 [facility] Comment on above: Performed By: #### A COLLIN, MG, BMP, ADIFF, GFR, CBC, HFP #### [address] [address] Lymphocyte, Absolute 1.1 10 3/mcL Normal 0.9-4.3 [facility] Comment on above: Performed By: #### A COLLIN, MG, BMP, ADIFF, GFR, CBC, HFP #### [address] [address] Lymphocytes/100 WBC (Bld) 9.6 % Low 20.0-40.0 [facility] Comment on above: Performed By: #### A COLLIN, MG, BMP, ADIFF, GFR, CBC, HFP #### [address] [address] Monocyte, Absolute 0.9 10 3/mcL Normal 0.1-1.4 [facility] Comment on above: Performed By: #### A COLLIN, MG, BMP, ADIFF, GFR, CBC, HFP #### [address] [address] Monocytes/100 WBC (Bld) 7.9 % Normal 2.0-13.0 [facility] Comment on above: Performed By: #### A COLLIN, MG, BMP, ADIFF, GFR, CBC, HFP #### [address] [address] Neutrophils/100 WBC (Bld) 79.4 % High 50.0-75.0 [facility] Comment on above: Performed By: #### A COLLIN, MG, BMP, ADIFF, GFR, CBC, HFP #### [address] [address] .GFRon 06-29-2024 Estimated Glomerular Filtration Rate 37 ml/min/1.73sqm Normal [facility] Comment on above: Result Comment: Stages of Chronic Kidney Disease (CKD) Stage Description eGFR(ml/min/1.73 sq.m.) CKD 1 Normal kidney function or >=90 normal kindney function with possible kidney damage (ex. Proteinuria) CKD 2 Kidney damage with mild loss 60-89 of kidney function CKD 3a Mild to moderate loss of kidney 45-59 function CKD 3b Moderate to severe loss of 30-44 of kindey function CKD 4 Severe loss of kidney function 15-29 CKD 5 Kidney failure <15 Note: (go live 2024) the eGFR calculation was updated to the 2020 CKD-EPI creatinine equation without a race factor to calculate the eGFR results. Performed By: #### A COLLIN, MG, BMP, ADIFF, GFR, CBC, HFP #### [address] [address] .NEUABSon 06-29-2024 Neutrophil, Absolute 8.7 10 3/mcL High 2.3-8.1 [facility] Comment on above: Performed By: #### A COLLIN, MG, BMP, ADIFF, GFR, CBC, HFP #### [address] [address] [facility] BUN/Creatinine Ratio 20.4 ratio Normal 10.0-22.0 [facility] Comment on above: Performed By: #### A COLLIN, MG, BMP, ADIFF, GFR, CBC, HFP #### [address] [address] Calcium [Mass/Vol] 9.5 mg/dL Normal 8.7-10.4 [facility] Comment on above: Performed By: #### A COLLIN, MG, BMP, ADIFF, GFR, CBC, HFP #### [address] [address] Chloride [Moles/Vol] 98 mmol/L Normal 98-110 [facility] Comment on above: Performed By: #### A COLLIN, MG, BMP, ADIFF, GFR, CBC, HFP #### [address] [address] CO2 [Moles/Vol] 34 mmol/L High 22-32 [facility] Comment on above: Performed By: #### A COLLIN, MG, BMP, ADIFF, GFR, CBC, HFP #### [address] [address] Creatinine [Mass/Vol] 1.42 mg/dL High 0.50-1.20 [facility] Comment on above: Result Comment: Test ing performed on [id number] analyzer using enzymatic creatinine methodology. Performed By: #### A COLLIN, MG, BMP, ADIFF, GFR, CBC, HFP #### [address] [address] Electrolyte Balance 7.0 mEq/L Normal 4.0-15.0 [facility] Comment on above: Performed By: #### A COLLIN, MG, BMP, ADIFF, GFR, CBC, HFP #### [address] [address] Glucose [Mass/Vol] 83 mg/dL Normal 82-115 [facility] Comment on above: Performed By: #### A COLLIN, MG, BMP, ADIFF, GFR, CBC, HFP #### [address] [address] Potassium [Moles/Vol] 3.3 mmol/L Low 3.5-5.0 [facility] Comment on above: Performed By: #### A COLLIN, MG, BMP, ADIFF, GFR, CBC, HFP #### [address] [address] Sodium [Moles/Vol] 139 mmol/L Normal 136-145 [facility] Comment on above: Performed By: #### A COLLIN, MG, BMP, ADIFF, GFR, CBC, HFP #### [address] [address] Urea nitrogen [Mass/Vol] 29.0 mg/dL High 8.0-22.0 [facility] Comment on above: Performed By: #### A COLLIN, MG, BMP, ADIFF, GFR, CBC, HFP #### [address] [address] CBCon 06-29-2024 Erythrocyte distribution width (RBC) [Ratio] 15.0 % Normal 11.5-15.5 [facility] Comment on above: Performed By: #### A COLLIN, MG, BMP, ADIFF, GFR, CBC, HFP #### [place] [address] Hematocrit (Bld) [Volume fraction] 37.7 % Normal 34.0-46.0 [facility] Comment on above: Performed By: #### A COLLIN, MG, BMP, ADIFF, GFR, CBC, HFP #### [place] [address] Hgb 13.2 G/dL Normal 12.0-16.0 [facility] Comment on above: Performed By: #### A COLLIN, MG, BMP, ADIFF, GFR, CBC, HFP #### [place] [address] MCH (RBC) [Entitic mass] 30.9 pg Normal 27.0-33.0 [facility] Comment on above: Performed By: #### A COLLIN, MG, BMP, ADIFF, GFR, CBC, HFP #### [place] [address] MCHC 35.0 G/dL Normal 32.0-36.0 [facility] Comment on above: Performed By: #### A COLLIN, MG, BMP, ADIFF, GFR, CBC, HFP #### [place] [address] MCV (RBC) [Entitic vol] 88.3 fL Normal 80.0-99.0 [facility] Comment on above: Performed By: #### A COLLIN, MG, BMP, ADIFF, GFR, CBC, HFP #### [place] [address] Platelet 342 10 3/mcL Normal 150-450 [facility] Comment on above: Performed By: #### A COLLIN, MG, BMP, ADIFF, GFR, CBC, HFP #### [place] [address] Platelet mean volume (Bld) [Entitic vol] 7.3 fL Normal 6.6-10.5 [facility] Comment on above: Performed By: #### A COLLIN, MG, BMP, ADIFF, GFR, CBC, HFP #### [place] [id number] [place] [address] RBC 4.27 10 6/mcL Normal 4.10-5.30 [facility] Comment on above: Performed By: #### A COLLIN, MG, BMP, ADIFF, GFR, CBC, HFP #### [place] [id number] [place] [address] WBC 11.0 10 3/mcL High 4.5-10.8 [facility] Comment on above: Performed By: #### A COLLIN, MG, BMP, ADIFF, GFR, CBC, HFP #### [address] [address] LABORATORYOrdered By: SYSTEM SYSTEM on 06-29-2024 Calcium [Mass/Vol] 9.5 mg/dL Normal 8.7 - 10. 4 mg/dL AH ADM SS Chloride [Moles/Vol] 98 mmol/L Normal 98 - 11 0 mEq/L AH ADM SS CO2 [Moles/Vol] 34 mmol/L High 22 - 32 mEq/L AH ADM SS Creatinine [Mass/Vol] 1.42 mg/dL High 0.50 - 1.20 mg/dL ADM SS Comment on above: Interpretive Data: T esting performed on [id number] analyzer using enzymatic creatinine methodology. Electrolyte Balance 7.0 mEq/L Normal 4.0 - 15 .0 mEq/L AH ADM SS Estimated Glomerular Filtration Rate 37 ml/min/1.73sqm Invalid Interpretation Code AH ADM SS Comment on above: Interpretive Data: Stages of Chronic Kidney Disease (CKD) Stage Description eGFR(ml/min/1.73 sq.m.) CKD 1 Normal kidney function or >=90 normal kindney function with possible kidney damage (ex. Proteinuria) CKD 2 Kidney damage with mild loss 60-89 of kidney function CKD 3a Mild to moderate loss of kidney 45-59 function CKD 3b Moderate to severe loss of 30-44 of kindey function CKD 4 Severe loss of kidney function 15-29 CKD 5 Kidney failure <15 Note: (go live 2024) the eGFR calculation was updated to the 2020 CKD-EPI creatinine equation without a race factor to calculate the eGFR results. Glucose [Mass/Vol] 83 mg/dL Normal 82 - 115 mg/dL ADM SS Magnesium [Mass/Vol] 2.2 mg/dL Normal 1.6 - 2 .4 mg/dL ADM SS Potassium [Moles/Vol] 3.3 mmol/L Low 3.5 - 5.0 mEq/L ADM SS Sodium [Moles/Vol] 139 mmol/L Normal 136 - 145 mEq/L ADM SS Urea nitrogen [Mass/Vol] 29.0 mg/dL High 8.0 - 22.0 mg/dL ADM SS Urea nitrogen/Creatinine [Mass ratio] 20.4 ratio Normal 10.0 - 22.0 ratio ADM SS MGon 06-29-2024 Magnesium [Mass/Vol] 2.2 mg/dL Normal 1.6-2.4 [facility] Comment on above: Performed By: #### A COLLIN, MG, BMP, ADIFF, GFR, CBC, HFP #### [place] [address] .Auto Diffon 06-28-2024 Basophil, Absolute 0.0 10 3/mcL Normal 0.0-0.2 [facility] Comment on above: Performed By: #### M DW, MG, GFR, BMP, CBC, ANEU, TROPHS, ADIFF #### [address] [address] Basophils/100 WBC (Bld) 0.3 % Normal 0.0-2.5 [facility] Comment on above: Performed By: #### M DW, MG, GFR, BMP, CBC, ANEU, TROPHS, ADIFF #### [address] [address] Eosinophil, Absolute 0.2 10 3/mcL Normal 0.0-0.7 [facility] Comment on above: Performed By: #### M DW, MG, GFR, BMP, CBC, ANEU, TROPHS, ADIFF #### [address] [address] Eosinophils/100 WBC (Bld) 1.6 % Normal 0.0-7.0 [facility] Comment on above: Performed By: #### M DW, MG, GFR, BMP, CBC, ANEU, TROPHS, ADIFF #### [address] [address] Lymphocyte, Absolute 1.2 10 3/mcL Normal 0.9-4.3 [facility] Comment on above: Performed By: #### M DW, MG, GFR, BMP, CBC, ANEU, TROPHS, ADIFF #### [address] [address] Lymphocytes/100 WBC (Bld) 9.7 % Low 20.0-40.0 [facility] Comment on above: Performed By: #### M DW, MG, GFR, BMP, CBC, ANEU, TROPHS, ADIFF #### [address] [address] Monocyte, Absolute 0.9 10 3/mcL Normal 0.1-1.4 [facility] Comment on above: Performed By: #### M DW, MG, GFR, BMP, CBC, ANEU, TROPHS, ADIFF #### [address] [address] Monocytes/100 WBC (Bld) 7.4 % Normal 2.0-13.0 [facility] Comment on above: Performed By: #### M DW, MG, GFR, BMP, CBC, ANEU, TROPHS, ADIFF #### [address] [address] Neutrophils/100 WBC (Bld) 80.8 % High 50.0-75.0 [facility] Comment on above: Performed By: #### M DW, MG, GFR, BMP, CBC, ANEU, TROPHS, ADIFF #### [address] [address] .GFRon 06-28-2024 Estimated Glomerular Filtration Rate 42 ml/min/1.73sqm Normal [facility] Comment on above: Result Comment: Stages of Chronic Kidney Disease (CKD) Stage Description eGFR(ml/min/1.73 sq.m.) CKD 1 Normal kidney function or >=90 normal kindney function with possible kidney damage (ex. Proteinuria) CKD 2 Kidney damage with mild loss 60-89 of kidney function CKD 3a Mild to moderate loss of kidney 45-59 function CKD 3b Moderate to severe loss of 30-44 of kindey function CKD 4 Severe loss of kidney function 15-29 CKD 5 Kidney failure <15 Note: (go live 2024) the eGFR calculation was updated to the 2020 CKD-EPI creatinine equation without a race factor to calculate the eGFR results. Performed By: #### M DW, MG, GFR, BMP, CBC, ANEU, TROPHS, ADIFF #### [address] [address] .MDWon 06-28-2024 Monocyte Distribution Width Not tested Normal 0.00-20.00 [facility] Comment on above: Result Comment: MDW testing unable to be performed on [id number] instrumentation. Performed By: #### M DW, MG, GFR, BMP, CBC, ANEU, TROPHS, ADIFF #### [address] [address] .NEUABSon 06-28-2024 Neutrophil, Absolute 10.2 10 3/mcL High 2.3-8.1 [facility] Comment on above: Performed By: #### M DW, MG, GFR, BMP, CBC, ANEU, TROPHS, ADIFF #### [address] [address] BMPon 06-28-2024 BUN/Creatinine Ratio 23 ratio Normal 7-27 [facility] Comment on above: Performed By: #### M DW, MG, GFR, BMP, CBC, ANEU, TROPHS, ADIFF #### [address] [address] Calcium [Mass/Vol] 9.4 mg/dL Normal 8.4-10.2 [facility] Comment on above: Performed By: #### M DW, MG, GFR, BMP, CBC, ANEU, TROPHS, ADIFF #### [address] [address] Chloride [Moles/Vol] 101 mmol/L Normal 98-107 [facility] Comment on above: Performed By: #### M DW, MG, GFR, BMP, CBC, ANEU, TROPHS, ADIFF #### [address] [address] CO2 [Moles/Vol] 32 mmol/L High 23-31 [facility] Comment on above: Performed By: #### M DW, MG, GFR, BMP, CBC, ANEU, TROPHS, ADIFF #### [address] [address] Creatinine [Mass/Vol] 1.28 mg/dL High 0.55-1.[address] [facility] Comment on above: Result Comment: Test ing performed on Siemens Dimension EXL analyzer using a modified kinetic Josse technique. Performed By: #### M DW, MG, GFR, BMP, CBC, ANEU, TROPHS, ADIFF #### [address] [address] Electrolyte Balance 6.0 mEq/L Normal 4.0-15.0 [facility] Comment on above: Performed By: #### M DW, MG, GFR, BMP, CBC, ANEU, TROPHS, ADIFF #### [address] [address] Glucose [Mass/Vol] 122 mg/dL High 83-110 [facility] Comment on above: Performed By: #### M DW, MG, GFR, BMP, CBC, ANEU, TROPHS, ADIFF #### [address] [address] Potassium [Moles/Vol] 3.7 mmol/L Normal 3.5-5.[address] [facility] Comment on above: Performed By: #### M DW, MG, GFR, BMP, CBC, ANEU, TROPHS, ADIFF #### [address] [address] Sodium [Moles/Vol] 139 mmol/L Normal 136-145 [facility] Comment on above: Performed By: #### M DW, MG, GFR, BMP, CBC, ANEU, TROPHS, ADIFF #### [address] [address] Urea nitrogen [Mass/Vol] 29 mg/dL High 7-18 [facility] Comment on above: Performed By: #### M DW, MG, GFR, BMP, CBC, ANEU, TROPHS, ADIFF #### [address] [address] CBCon 06-28-2024 Erythrocyte distribution width (RBC) [Ratio] 14.4 % Normal 11.5-15.5 [facility] Comment on above: Performed By: #### M DW, MG, GFR, BMP, CBC, ANEU, TROPHS, ADIFF #### [address] [address] Hematocrit (Bld) [Volume fraction] 39.2 % Normal 34.0-46.0 [facility] Comment on above: Performed By: #### M DW, MG, GFR, BMP, CBC, ANEU, TROPHS, ADIFF #### [address] [address] Hgb 13.9 G/dL Normal 12.0-16.0 [facility] Comment on above: Performed By: #### M DW, MG, GFR, BMP, CBC, ANEU, TROPHS, ADIFF #### [address] [address] MCH (RBC) [Entitic mass] 31.0 pg Normal 27.0-33.0 [facility] Comment on above: Performed By: #### M DW, MG, GFR, BMP, CBC, ANEU, TROPHS, ADIFF #### [address] [address] MCHC 35.5 G/dL Normal 32.0-36.0 [facility] Comment on above: Performed By: #### M DW, MG, GFR, BMP, CBC, ANEU, TROPHS, ADIFF #### [address] [address] MCV (RBC) [Entitic vol] 87.2 fL Normal 80.0-99.0 [facility] Comment on above: Performed By: #### M DW, MG, GFR, BMP, CBC, ANEU, TROPHS, ADIFF #### [address] [address] Platelet 338 10 3/mcL Normal 150-450 [facility] Comment on above: Performed By: #### M DW, MG, GFR, BMP, CBC, ANEU, TROPHS, ADIFF #### [place] [address] Platelet mean volume (Bld) [Entitic vol] 7.1 fL Normal 6.6-10.5 [facility] Comment on above: Performed By: #### M DW, MG, GFR, BMP, CBC, ANEU, TROPHS, ADIFF #### [place] [address] RBC 4.49 10 6/mcL Normal 4.10-5.30 [facility] Comment on above: Performed By: #### M DW, MG, GFR, BMP, CBC, ANEU, TROPHS, ADIFF #### [place] [address] WBC 12.6 10 3/mcL High 4.5-10.8 [facility] Comment on above: Performed By: #### M DW, MG, GFR, BMP, CBC, ANEU, TROPHS, ADIFF #### [place] [address] CVFLURVon 06-28-2024 FLU A PCR Negative Normal Negative [facility] Comment on above: Performed By: #### M DW, MG, GFR, BMP, CBC, ANEU, TROPHS, ADIFF #### [place] [address] FLU B PCR Negative Normal Negative [facility] Comment on above: Performed By: #### M DW, MG, GFR, BMP, CBC, ANEU, TROPHS, ADIFF #### [place] [address] RSV PCR Negative Normal Negative [facility] Comment on above: Performed By: #### M DW, MG, GFR, BMP, CBC, ANEU, TROPHS, ADIFF #### [place] [address] SARS-CoV-2 (COVID-19) RNA MARISELA+probe Ql (Unsp spec) Negative Normal Negative [facility] Comment on above: Result Comment: Resu lts from the Xpert Xpress CoV-2/Flu/RSV plus test should be correlated with the clinical history, epidemiological data, and other data available to the clinical evaluating the patient. Performance of the Xpert Xpress CoV-2/Flu/RSV plus test has only been established in nasopharyngeal swab specimen. Erroneous test results might occur from improper specimen collection, failure to follow the recommended sample collection, handling and storage procedures, technical error, or sample mix-up. False negative results may occur if a virus is present at a level below the analytical limit of detection. Viral nucleic acid may persist in vivo, independent of virus viability. Detection of analyte target(s) does not imply that the corresponding virus(es) are infectious or are the causative agents for clinical symptoms. Recent patient exposure to FluMist or other live attenuated influenza vaccines may cause inaccurate positive results. Performed By: #### M DW, MG, GFR, BMP, CBC, ANEU, TROPHS, ADIFF #### [place] [address] LABORATORYOrdered By: SYSTEM SYSTEM on 06-28-2024 Troponin I.cardiac DL <= 0.01 ng/mL [Mass/Vol] 88 ng/L High 0 - 34 ng/L [facility] Comment on above: Interpretive Data: High Sensitive Troponin I Reference Ranges: Female: 0-34 ng/L Male: 0-54 ng/L Testing performed on [employer] analyzer using direct chemiluminescent technology. PBNPon 06-28-2024 Natriuretic peptide B (Bld) [Mass/Vol] 8302 pg/mL High 0-450 [facility] Comment on above: Result Comment: NT-p roBNP results of less than 300 pg/mL effectively rules out acute congestive heart failure with 99% negative predictive value. Performed By: #### M DW, MG, GFR, BMP, CBC, ANEU, TROPHS, ADIFF #### [place] [id number] [place], [place] [address]Son 06-28-2024 High Sensitivity Troponin I 88 ng/L High 0-34 [facility] Comment on above: Result Comment: High Sensitive Troponin I Reference Ranges: Female: 0-34 ng/L Male: 0-54 ng/L Testing performed on Plugged[employer] IM analyzer using direct chemiluminescent technology. Performed By: #### A COLLIN, MG, BMP, ADIFF, GFR, CBC, HFP #### [facility] [address] [place] [address] High Sensitivity Troponin I 154 ng/L High 0-51 [facility] Comment on above: Result Comment: High Sensitive Troponin I Reference Ranges: Female: 0-51 ng/L Male: 0-76 ng/L Testing performed on [employer] using a homogeneous sandwich chemiluminescent immunoassay based on Singulex technology. Performed By: #### M DW, MG, GFR, BMP, CBC, ANEU, TROPHS, ADIFF #### [facility] [address] [place], [place] [address] XR CHEST 1 VIEWon 06-28-2024 XR CHEST 1 VIEW ORIGINAL EXAMINATION: ONE XRAY VIEW OF THE CHEST06/28/2024 1:48 am COMPARISON: 05/20/2024 HISTORY: ORDERING SYSTEM PROVIDED HISTORY: Reason for Exam: chest pain FINDINGS: The cardiomediastinal contours are stable. Atherosclerosis of the aorta. Diffuse bilateral interstitial opacities and central pulmonary vascular prominence is present. Small bilateral pleural effusions, left greater than right with adjacent bibasilar airspace opacities. No visible pneumothorax. No acute osseous abnormality. Degenerative changes of the visualized osseous structures. IMPRESSION: Findings compatible with pulmonary edema however an atypical infectious or inflammatory process cannot be entirely excluded. Small bilateral pleural effusions, left greater than right. Preliminary Report was Dictated by a Resident Interpreted by: Jae Benítez MD Preliminary Report By: Tin Linder Electronically signed By Jae Benítez MD Dictated Date: 06/28/2024 1:52:28 AM Prelim Date: 06/28/2024 1:56:03 AM Sign Date: 06/28/2024 2:04:30 AM Ordering Provider: TIN HOFFMAN [facility] .GFRon 06-26-2024 Estimated Glomerular Filtration Rate 40 ml/min/1.73sqm [facility] Comment on above: Result Comment: Stages of Chronic Kidney Disease (CKD) Stage Description eGFR(ml/min/1.73 sq.m.) CKD 1 Normal kidney function or >=90 normal kindney function with possible kidney damage (ex. Proteinuria) CKD 2 Kidney damage with mild loss 60-89 of kidney function CKD 3a Mild to moderate loss of kidney 45-59 function CKD 3b Moderate to severe loss of 30-44 of kindey function CKD 4 Severe loss of kidney function 15-29 CKD 5 Kidney failure <15 Note: (go live 2024) the eGFR calculation was updated to the 2020 CKD-EPI creatinine equation without a race factor to calculate the eGFR results. Performed By: #### M DW, MG, GFR, BMP, CBC, ANEU, TROPHS, ADIFF #### [address] [address] BMPon 06-26-2024 BUN/Creatinine Ratio 24 ratio Normal 7-27 [facility] Comment on above: Performed By: #### M DW, MG, GFR, BMP, CBC, ANEU, TROPHS, ADIFF #### [address] [address] Calcium [Mass/Vol] 9.8 mg/dL Normal 8.4-10.2 [facility] Comment on above: Performed By: #### M DW, MG, GFR, BMP, CBC, ANEU, TROPHS, ADIFF #### [address] [address] Chloride [Moles/Vol] 100 mmol/L Normal 98-107 [facility] Comment on above: Performed By: #### M DW, MG, GFR, BMP, CBC, ANEU, TROPHS, ADIFF #### [address] [address] CO2 [Moles/Vol] 32 mmol/L High 23-31 [facility] Comment on above: Performed By: #### M DW, MG, GFR, BMP, CBC, ANEU, TROPHS, ADIFF #### [address] [address] Creatinine [Mass/Vol] 1.34 mg/dL High 0.55-1.[address] [facility] Comment on above: Result Comment: Test ing performed on Siemens Dimension EXL analyzer using a modified kinetic Josse technique. Performed By: #### M DW, MG, GFR, BMP, CBC, ANEU, TROPHS, ADIFF #### [address] [address] Electrolyte Balance 6.0 mEq/L Normal 4.0-15.0 [facility] Comment on above: Performed By: #### M DW, MG, GFR, BMP, CBC, ANEU, TROPHS, ADIFF #### [address] [address] Glucose [Mass/Vol] 99 mg/dL Normal 83-110 [facility] Comment on above: Performed By: #### M DW, MG, GFR, BMP, CBC, ANEU, TROPHS, ADIFF #### [address] [address] Potassium [Moles/Vol] 4.2 mmol/L Normal 3.5-5.[address] [facility] Comment on above: Performed By: #### M DW, MG, GFR, BMP, CBC, ANEU, TROPHS, ADIFF #### [address] [address] Sodium [Moles/Vol] 138 mmol/L Normal 136-145 [facility] Comment on above: Performed By: #### M DW, MG, GFR, BMP, CBC, ANEU, TROPHS, ADIFF #### [address] [address] Urea nitrogen [Mass/Vol] 32 mg/dL High - [facility] Comment on above: Performed By: #### M DW, MG, GFR, BMP, CBC, ANEU, TROPHS, ADIFF #### [address] [address] CAIONon 06-26-2024 Calcium Ionized 1.19 mmol/L Normal 1.12-1.32 [facility] Comment on above: Performed By: #### M DW, MG, GFR, BMP, CBC, ANEU, TROPHS, ADIFF #### [address] [address] PTHon 06-26-2024 PTH, Intact 141.0 pg/mL High 18.5-88.0 [facility] Comment on above: Performed By: #### M DW, MG, GFR, BMP, CBC, ANEU, TROPHS, ADIFF #### [facility] [address] [place], [place] [address] .Auto Diffon 06-19-2024 Basophil, Absolute 0.1 10 3/mcL Normal 0.0-0.3 [facility] Comment on above: Performed By: #### G FR, BMP #### [address] [address] Basophils/100 WBC (Bld) 1.1 % Normal 0.0-2.5 [facility] Comment on above: Performed By: #### G FR, BMP #### [address] [address] Eosinophil, Absolute 0.1 10 3/mcL Normal 0.0-0.7 [facility] Comment on above: Performed By: #### G FR, BMP #### [address] [address] Eosinophils/100 WBC (Bld) 1.2 % Normal 0.0-6.0 [facility] Comment on above: Performed By: #### G FR, BMP #### [address] [address] Lymphocyte, Absolute 0.8 10 3/mcL Low 0.9-4.3 [facility] Comment on above: Performed By: #### G FR, BMP #### [address] [address] Lymphocytes/100 WBC (Bld) 7.8 % Low 20.0-40.0 [facility] Comment on above: Performed By: #### G FR, BMP #### [address] [address] Monocyte, Absolute 0.8 10 3/mcL Normal 0.1-1.4 [facility] Comment on above: Performed By: #### G FR, BMP #### [address] [address] Monocytes/100 WBC (Bld) 8.2 % Normal 2.0-13.0 [facility] Comment on above: Performed By: #### G FR, BMP #### [address] [address] Neutrophils/100 WBC (Bld) 81.7 % High 50.0-75.0 [facility] Comment on above: Performed By: #### G FR, BMP #### [address] [address] .GFRon 06-19-2024 Estimated Glomerular Filtration Rate 55 ml/min/1.73sqm [facility] Comment on above: Result Comment: Stages of Chronic Kidney Disease (CKD) Stage Description eGFR(ml/min/1.73 sq.m.) CKD 1 Normal kidney function or >=90 normal kindney function with possible kidney damage (ex. Proteinuria) CKD 2 Kidney damage with mild loss 60-89 of kidney function CKD 3a Mild to moderate loss of kidney 45-59 function CKD 3b Moderate to severe loss of 30-44 of kindey function CKD 4 Severe loss of kidney function 15-29 CKD 5 Kidney failure <15 Note: (go live 2024) the eGFR calculation was updated to the 2020 CKD-EPI creatinine equation without a race factor to calculate the eGFR results. Performed By: #### A COLLIN, MG, BMP, ADIFF, GFR, CBC, HFP #### [address] [address] Estimated Glomerular Filtration Rate 53 ml/min/1.73sqm [facility] Comment on above: Result Comment: Stages of Chronic Kidney Disease (CKD) Stage Description eGFR(ml/min/1.73 sq.m.) CKD 1 Normal kidney function or >=90 normal kindney function with possible kidney damage (ex. Proteinuria) CKD 2 Kidney damage with mild loss 60-89 of kidney function CKD 3a Mild to moderate loss of kidney 45-59 function CKD 3b Moderate to severe loss of 30-44 of kindey function CKD 4 Severe loss of kidney function 15-29 CKD 5 Kidney failure <15 Note: (go live 2024) the eGFR calculation was updated to the 2020 CKD-EPI creatinine equation without a race factor to calculate the eGFR results. Performed By: #### G FR, BMP #### [address] [address] .NEUABSon 06-19-2024 Neutrophil, Absolute 8.4 10 3/mcL High 2.3-8.1 [facility] Comment on above: Performed By: #### G FR, BMP #### [address] [address] BGRPon 06-19-2024 Base Excess - POC 6.3 mmol/L Normal [facility] Comment on above: Performed By: #### C MP, MG, GFR #### [place] [address] CO2 [Moles/Vol] 31.3 mmol/L High 22.0-30.0 [facility] Comment on above: Performed By: #### C MP, MG, GFR #### [place] [address] HCO3 (Bld) [Moles/Vol] 30.1 mmol/L High 21.0-29.0 [facility] Comment on above: Performed By: #### C MP, MG, GFR #### [place] [address] Oxygen saturation in Blood 73.8 % Low 92.0-96.0 [facility] Comment on above: Performed By: #### C MP, MG, GFR #### [place] [address] PCO2 - POC 40.3 mmHg Normal 32.0-46.0 [facility] Comment on above: Performed By: #### C MP, MG, GFR #### [place] [address] pH (poct) - POC 7.491 High 7.380-7.460 [facility] Comment on above: Performed By: #### C MP, MG, GFR #### [place] [address] PO2 - POC 37.7 mmHg Low 74.0-108.0 [facility] Comment on above: Performed By: #### C MP, MG, GFR #### [address] [address] BMPon 06-19-2024 BUN/Creatinine Ratio 17.5 ratio Normal 10.0-22.0 [facility] Comment on above: Performed By: #### A COLLIN, MG, BMP, ADIFF, GFR, CBC, HFP #### [address] [address] Calcium [Mass/Vol] 9.7 mg/dL Normal 8.7-10.4 [facility] Comment on above: Performed By: #### A COLLIN, MG, BMP, ADIFF, GFR, CBC, HFP #### [place] [id number] Chloride [Moles/Vol] 100 mmol/L Normal 98-110 [facility] Comment on above: Performed By: #### A COLLIN, MG, BMP, ADIFF, GFR, CBC, HFP #### [place] [id number] CO2 [Moles/Vol] 36 mmol/L High 22-32 [facility] Comment on above: Performed By: #### A COLLIN, MG, BMP, ADIFF, GFR, CBC, HFP #### [place] [id number] Creatinine [Mass/Vol] 1.03 mg/dL Normal 0.50-1.20 [facility] Comment on above: Result Comment: Test ing performed on [email or web address] analyzer using enzymatic creatinine methodology. Performed By: #### A COLLIN, MG, BMP, ADIFF, GFR, CBC, HFP #### [place] [id number] Electrolyte Balance 3.0 mEq/L Low 4.0-15.0 [facility] Comment on above: Performed By: #### A COLLIN, MG, BMP, ADIFF, GFR, CBC, HFP #### [place] [id number] Glucose [Mass/Vol] 92 mg/dL Normal 82-115 [facility] Comment on above: Performed By: #### A COLLIN, MG, BMP, ADIFF, GFR, CBC, HFP #### [address] [address] Potassium [Moles/Vol] 3.4 mmol/L Low 3.5-5.0 [facility] Comment on above: Performed By: #### A COLLIN, MG, BMP, ADIFF, GFR, CBC, HFP #### [address] [address] Sodium [Moles/Vol] 139 mmol/L Normal 136-145 [facility] Comment on above: Performed By: #### A COLLIN, MG, BMP, ADIFF, GFR, CBC, HFP #### [address] [address] Urea nitrogen [Mass/Vol] 18.0 mg/dL Normal 8.0-22.0 [facility] Comment on above: Performed By: #### A COLLIN, MG, BMP, ADIFF, GFR, CBC, HFP #### [address] [address] BUN/Creatinine Ratio 17.9 ratio Normal 10.0-22.0 [facility] Comment on above: Performed By: #### G FR, BMP #### [address] [address] Calcium [Mass/Vol] 9.9 mg/dL Normal 8.7-10.4 [facility] Comment on above: Performed By: #### G FR, BMP #### [address] [address] Chloride [Moles/Vol] 98 mmol/L Normal 98-110 [facility] Comment on above: Performed By: #### G FR, BMP #### [address] [address] CO2 [Moles/Vol] 35 mmol/L High 22-32 [facility] Comment on above: Performed By: #### G FR, BMP #### [address] [address] Creatinine [Mass/Vol] 1.06 mg/dL Normal 0.50-1.20 [facility] Comment on above: Result Comment: Test ing performed on [email or web address] analyzer using enzymatic creatinine methodology. Performed By: #### G FR, BMP #### [address] [address] Electrolyte Balance 6.0 mEq/L Normal 4.0-15.0 [facility] Comment on above: Performed By: #### Ed WAGNER, BMP #### [place] [phone] Glucose [Mass/Vol] 92 mg/dL Normal 82-115 [facility] Comment on above: Performed By: #### Ed WAGNER, BMP #### [place] [address] Potassium [Moles/Vol] 2.7 mmol/L Critically abnormal 3.5-5.0 [facility] Comment on above: Performed By: #### Ed WAGNER, BMP #### [place] [phone] Sodium [Moles/Vol] 139 mmol/L Normal 136-145 [facility] Comment on above: Performed By: #### Ed WAGNER, BMP #### [place] [address] Urea nitrogen [Mass/Vol] 19.0 mg/dL Normal 8.0-22.0 [facility] Comment on above: Performed By: #### Ed WAGNER, BMP #### [address] 06-19-2024 Ionized Calcium - POC 1.16 mmol/L Normal 1.12-1.32 [facility] Comment on above: Performed By: #### Ed WAGNER, BMP #### [address] 06-19-2024 Erythrocyte distribution width (RBC) [Ratio] 14.7 % Normal 11.5-15.5 [facility] Comment on above: Performed By: #### Ed WAGNER, BMP #### [place] [id number] Hematocrit (Bld) [Volume fraction] 38.3 % Normal 34.0-46.0 [facility] Comment on above: Performed By: #### Ed WAGNER, BMP #### [place] [address] Hgb 13.6 G/dL Normal 12.0-16.0 [facility] Comment on above: Performed By: #### G FR, BMP #### [place] [address] MCH (RBC) [Entitic mass] 31.6 pg Normal 27.0-33.0 [facility] Comment on above: Performed By: #### G FR, BMP #### [place] [address] MCHC 35.6 G/dL Normal 32.0-36.0 [facility] Comment on above: Performed By: #### G FR, BMP #### [place] [address] MCV (RBC) [Entitic vol] 88.7 fL Normal 80.0-99.0 [facility] Comment on above: Performed By: #### G FR, BMP #### [place] [address] Platelet 267 10 3/mcL Normal 150-450 [facility] Comment on above: Performed By: #### G FR, BMP #### [place] [address] Platelet mean volume (Bld) [Entitic vol] 7.2 fL Normal 6.6-10.5 [facility] Comment on above: Performed By: #### G FR, BMP #### [place] [address] RBC 4.32 10 6/mcL Normal 4.10-5.30 [facility] Comment on above: Performed By: #### G FR, BMP #### [place] [address] WBC 10.3 10 3/mcL Normal 4.5-10.8 [facility] Comment on above: Performed By: #### G FR, BMP #### [place] [address] CLRPon 06-19-2024 Chloride [Moles/Vol] 96 mmol/L Low 98-110 [facility] Comment on above: Performed By: #### C MP, MG, GFR #### [place] [address] GLURPon 06-19-2024 Glucose [Mass/Vol] 85 mg/dL Normal 82-115 [facility] Comment on above: Performed By: #### G FR, BMP #### [place] [address] HCTRPon 06-19-2024 Hematocrit (Bld) [Volume fraction] 39.0 % Normal 37.0-47.0 [facility] Comment on above: Performed By: #### G FR, BMP #### [place] [address] HGBRPon 06-19-2024 Hemoglobin (POC) 13.3 G/dL Normal 12.0-16.0 [facility] Comment on above: Performed By: #### C MP, MG, GFR #### [place] [address] KRPon 06-19-2024 Potassium [Moles/Vol] 3.2 mmol/L Low 3.5-5.0 [facility] Comment on above: Performed By: #### G FR, BMP #### [place] [address] LABORATORYOrdered By: SYSTEM SYSTEM on 06-19-2024 Calcium [Mass/Vol] 9.7 mg/dL Normal 8.7 - 10. 4 mg/dL ADM SS Chloride [Moles/Vol] 100 mmol/L Normal 98 - 11 0 mEq/L AH ADM SS CO2 [Moles/Vol] 36 mmol/L High 22 - 32 mEq/L ADM SS Creatinine [Mass/Vol] 1.03 mg/dL Normal 0.50 - 1.20 mg/dL ADM SS Comment on above: Interpretive Data: T esting performed on [email or web address] analyzer using enzymatic creatinine methodology. Electrolyte Balance 3.0 mEq/L Low 4.0 - 15 .0 mEq/L AH ADM SS Estimated Glomerular Filtration Rate 55 ml/min/1.73sqm Invalid Interpretation Code Chemistry S Comment on above: Interpretive Data: Stages of Chronic Kidney Disease (CKD) Stage Description eGFR(ml/min/1.73 sq.m.) CKD 1 Normal kidney function or >=90 normal kindney function with possible kidney damage (ex. Proteinuria) CKD 2 Kidney damage with mild loss 60-89 of kidney function CKD 3a Mild to moderate loss of kidney 45-59 function CKD 3b Moderate to severe loss of 30-44 of kindey function CKD 4 Severe loss of kidney function 15-29 CKD 5 Kidney failure <15 Note: (go live 2024) the eGFR calculation was updated to the 2020 CKD-EPI creatinine equation without a race factor to calculate the eGFR results. Glucose [Mass/Vol] 92 mg/dL Normal 82 - 115 mg/dL AH ADM SS Potassium [Moles/Vol] 3.4 mmol/L Low 3.5 - 5.0 mEq/L AH ADM SS Sodium [Moles/Vol] 139 mmol/L Normal 136 - 145 mEq/L AH ADM SS Urea nitrogen [Mass/Vol] 18.0 mg/dL Normal 8.0 - 22.0 mg/dL AH ADM SS Urea nitrogen/Creatinine [Mass ratio] 17.5 ratio Normal 10.0 - 22.0 ratio ADM SS Chloride [Moles/Vol] 96 mmol/L Low 98 - 11 0 mEq/L AH Rapid Comm SS CO2 [Moles/Vol] 31.3 mmol/L High 22.0 - 30.0 mmol/L AH Rapid Comm SS Glucose [Mass/Vol] 85 mg/dL Normal 82 - 115 mg/dL AH Rapid Comm SS HCO3 (Bld) [Moles/Vol] 30.1 mmol/L High 21.0 - 29.0 mmol/L AH Rapid Comm SS Hematocrit (Bld) [Volume fraction] 39.0 % Normal 37.0 - 47.0 % Rapid Comm SS Hemoglobin (POC) 13.3 G/dL Normal 12.0 - 16.0 G/dL AH Rapid Comm SS Ionized Calcium - POC 1.16 mmol/L Normal 1.12 - 1.32 mmol/L AH Rapid Comm SS Oxygen saturation in Blood 73.8 % Low 92.0 - 96.0 % AH Rapid Comm SS PCO2 - POC 40.3 mm[Hg] Normal 32.0 - 46.0 mm Hg AH Rapid Comm SS pH (Bld) 7.491 [pH] High 7.380 - 7.460 AH Rapid Comm SS PO2 - POC 37.7 mm[Hg] Low 74.0 - 108.0 mm Hg AH Rapid Comm SS Potassium [Moles/Vol] 3.2 mmol/L Low 3.5 - 5.0 mEq/L Rapid Comm SS Sodium [Moles/Vol] 6.3 mmol/L Invalid Interpretation Code Rapid Comm SS Sodium [Moles/Vol] 136 mmol/L Normal 136 - 145 mEq/L Rapid Comm SS Basophils (Bld) [#/Vol] 0.1 103/mcL Normal 0.0 - 0.3 10^3/mcL Workflow SS Basophils/100 WBC (Bld) 1.1 % Normal 0.0 - 2.5 % Workflow SS Calcium [Mass/Vol] 9.9 mg/dL Normal 8.7 - 10. 4 mg/dL ADM SS Chloride [Moles/Vol] 98 mmol/L Normal 98 - 11 0 mEq/L ADM SS CO2 [Moles/Vol] 35 mmol/L High 22 - 32 mEq/L ADM SS Creatinine [Mass/Vol] 1.06 mg/dL Normal 0.50 - 1.20 mg/dL ADM SS Comment on above: Interpretive Data: T esting performed on [email or web address] analyzer using enzymatic creatinine methodology. Electrolyte Balance 6.0 mEq/L Normal 4.0 - 15 .0 mEq/L ADM SS Eosinophils (Bld) [#/Vol] 0.1 103/mcL Normal 0.0 - 0.7 10^3/mcL Workflow SS Eosinophils/100 WBC (Bld) 1.2 % Normal 0.0 - 6.0 % Workflow SS Erythrocyte distribution width (RBC) [Ratio] 14.7 % Normal 11.5 - 15.5 % Workflow SS Estimated Glomerular Filtration Rate 53 ml/min/1.73sqm Invalid Interpretation Code Chemistry S Comment on above: Interpretive Data: Stages of Chronic Kidney Disease (CKD) Stage Description eGFR(ml/min/1.73 sq.m.) CKD 1 Normal kidney function or >=90 normal kindney function with possible kidney damage (ex. Proteinuria) CKD 2 Kidney damage with mild loss 60-89 of kidney function CKD 3a Mild to moderate loss of kidney 45-59 function CKD 3b Moderate to severe loss of 30-44 of kindey function CKD 4 Severe loss of kidney function 15-29 CKD 5 Kidney failure <15 Note: (go live 2024) the eGFR calculation was updated to the 2020 CKD-EPI creatinine equation without a race factor to calculate the eGFR results. Glucose [Mass/Vol] 92 mg/dL Normal 82 - 115 mg/dL ADM SS Hematocrit (Bld) [Volume fraction] 38.3 % Normal 34.0 - 46.0 % Workflow SS Hemoglobin (Bld) [Mass/Vol] 13.6 G/dL Normal 12.0 - 16.0 G/dL Workflow SS Lymphocytes (Bld) [#/Vol] 0.8 103/mcL Low 0.9 - 4.3 10^3/mcL Workflow SS Lymphocytes/100 WBC (Bld) 7.8 % Low 20.0 - 40.0 % Workflow SS MCH (RBC) [Entitic mass] 31.6 pg Normal 27.0 - 33.0 pg Workflow SS MCHC 35.6 G/dL Normal 32.0 - 36.0 G/dL Workflow SS MCV (RBC) [Entitic vol] 88.7 fL Normal 80.0 - 99.0 fL Workflow SS Monocytes (Bld) [#/Vol] 0.8 103/mcL Normal 0.1 - 1.4 10^3/mcL Workflow SS Monocytes/100 WBC (Bld) 8.2 % Normal 2.0 - 13.0 % Workflow SS Neutrophils (Bld) [#/Vol] 8.4 103/mcL High 2.3 - 8.1 10^3/mcL Workflow SS Neutrophils/100 WBC (Bld) 81.7 % High 50.0 - 75.0 % Workflow SS Platelet mean volume (Bld) [Entitic vol] 7.2 fL Normal 6.6 - 10.5 fL Workflow SS Platelets (Bld) [#/Vol] 267 103/mcL Normal 150 - 450 10^3/mcL Workflow SS Potassium [Moles/Vol] 2.7 mmol/L Invalid Interpretation Code 3.5 - 5.0 mEq/L ADM SS PT Coag (PPP) [Time] 14.6 s High 9.0 - 1 4.4 seconds [facility] SS Comment on above: Interpretive Data: E ffective 10/24/07, Protime results may be affected by some antibiotics (i.e. Ciprofloxacin, Azithromycin, Bactrim) which may potentiate the action of oral anticoagulants, with further increases in Protime/INR. PT International Ratio 1.3 ratio Invalid Interpretation Code [facility] SS Comment on above: Interpretive Data: Jatinder samano [employer] (CHEST, 1991, [id number]) recommended therapeutic range for oral anticoagulant therapy is: LOW RISK: Prophylaxis of venous thrombosis INR: 2.0-3.0 Treatment of pulmonary embolism 2.0-3.0 Prevention of systemic embolism 2.0-3.0 HIGH RISK: Mechanical prosthetic valves 2.5-3.5 RBC (Bld) [#/Vol] 4.32 106/mcL Normal 4.10 - 5.3 0 10^6/mcL Workflow SS Sodium [Moles/Vol] 139 mmol/L Normal 136 - 145 mEq/L ADM SS Urea nitrogen [Mass/Vol] 19.0 mg/dL Normal 8.0 - 22.0 mg/dL ADM SS Urea nitrogen/Creatinine [Mass ratio] 17.9 ratio Normal 10.0 - 22.0 ratio ADM SS WBC (Bld) [#/Vol] 10.3 103/mcL Normal 4.5 - 10.8 10^3/mcL Workflow SS NARPon 06-19-2024 Sodium [Moles/Vol] 136 mmol/L Normal 136-145 [facility] Comment on above: Performed By: #### G , BMP #### [address] [address] PROon 06-19-2024 INR Coag (PPP) [Relative time] 1.3 {INR} Normal [facility] Comment on above: Result Comment: [employer] (CHEST, 1991, [id number]) recommended therapeutic range for oral anticoagulant therapy is: LOW RISK: Prophylaxis of venous thrombosis INR: 2.0-3.0 Treatment of pulmonary embolism 2.0-3.0 Prevention of systemic embolism 2.0-3.0 HIGH RISK: Mechanical prosthetic valves 2.5-3.5 Performed By: #### G FR, BMP #### [address] [address] PT Coag (PPP) [Time] 14.6 s High 9.0-14.4 [facility] Comment on above: Result Comment: Effe ctive 10/24/07, Protime results may be affected by some antibiotics (i.e. Ciprofloxacin, Azithromycin, Bactrim) which may potentiate the action of oral anticoagulants, with further increases in Protime/INR. Performed By: #### G FR, BMP #### [facility] [address] [place] [id number] .GFRon 05-28-2024 Estimated Glomerular Filtration Rate 31 ml/min/1.73sqm Normal [facility] Comment on above: Result Comment: Stages of Chronic Kidney Disease (CKD) Stage Description eGFR(ml/min/1.73 sq.m.) CKD 1 Normal kidney function or >=90 normal kindney function with possible kidney damage (ex. Proteinuria) CKD 2 Kidney damage with mild loss 60-89 of kidney function CKD 3a Mild to moderate loss of kidney 45-59 function CKD 3b Moderate to severe loss of 30-44 of kindey function CKD 4 Severe loss of kidney function 15-29 CKD 5 Kidney failure <15 Note: (go live 2024) the eGFR calculation was updated to the 2020 CKD-EPI creatinine equation without a race factor to calculate the eGFR results. Performed By: #### M DW, MG, GFR, BMP, CBC, ANEU, TROPHS, ADIFF #### [address] [address] BMPon 05-28-2024 BUN/Creatinine Ratio 24 ratio Normal 7-27 [facility] Comment on above: Performed By: #### M DW, MG, GFR, BMP, CBC, ANEU, TROPHS, ADIFF #### [address] [address] Calcium [Mass/Vol] 9.7 mg/dL Normal 8.4-10.2 [facility] Comment on above: Performed By: #### M DW, MG, GFR, BMP, CBC, ANEU, TROPHS, ADIFF #### [address] [address] Chloride [Moles/Vol] 104 mmol/L Normal 98-107 [facility] Comment on above: Performed By: #### M DW, MG, GFR, BMP, CBC, ANEU, TROPHS, ADIFF #### [address] [address] CO2 [Moles/Vol] 32 mmol/L High 23-31 [facility] Comment on above: Performed By: #### M DW, MG, GFR, BMP, CBC, ANEU, TROPHS, ADIFF #### [address] [address] Creatinine [Mass/Vol] 1.64 mg/dL High 0.55-1.[address] [facility] Comment on above: Result Comment: Test ing performed on Siemens Dimension EXL analyzer using a modified kinetic Josse technique. Performed By: #### M DW, MG, GFR, BMP, CBC, ANEU, TROPHS, ADIFF #### [address] [address] Electrolyte Balance 6.0 mEq/L Normal 4.0-15.0 [facility] Comment on above: Performed By: #### M DW, MG, GFR, BMP, CBC, ANEU, TROPHS, ADIFF #### [address] [address] Glucose [Mass/Vol] 93 mg/dL Normal 83-110 [facility] Comment on above: Performed By: #### M DW, MG, GFR, BMP, CBC, ANEU, TROPHS, ADIFF #### [address] [address] Potassium [Moles/Vol] 3.8 mmol/L Normal 3.5-5.[address] [facility] Comment on above: Performed By: #### M DW, MG, GFR, BMP, CBC, ANEU, TROPHS, ADIFF #### [address] [address] Sodium [Moles/Vol] 142 mmol/L Normal 136-145 [facility] Comment on above: Performed By: #### M DW, MG, GFR, BMP, CBC, ANEU, TROPHS, ADIFF #### [address] [address] Urea nitrogen [Mass/Vol] 40 mg/dL High 7-18 [facility] Comment on above: Performed By: #### M DW, MG, GFR, BMP, CBC, ANEU, TROPHS, ADIFF #### [address] [place] [id number] [place], [place] [address] LABORATORYOrdered By: SYSTEM SYSTEM on 05-28-2024 Calcium [Mass/Vol] 9.7 mg/dL Normal 8.4 - 10. 2 mg/dL AO ADM SS Chloride [Moles/Vol] 104 mmol/L Normal 98 - 10 7 mmol/L AO ADM SS CO2 [Moles/Vol] 32 mmol/L High 23 - 31 mmol/L AO ADM SS Creatinine [Mass/Vol] 1.64 mg/dL High 0.55 - 1.02 mg/dL AO ADM SS Comment on above: Interpretive Data: T esting performed on Siemens Dimension EXL analyzer using a modified kinetic Josse technique. Electrolyte Balance 6.0 mEq/L Normal 4.0 - 15 .0 mEq/L AO ADM SS Estimated Glomerular Filtration Rate 31 ml/min/1.73sqm Invalid Interpretation Code AO Chemistry S Comment on above: Interpretive Data: Stages of Chronic Kidney Disease (CKD) Stage Description eGFR(ml/min/1.73 sq.m.) CKD 1 Normal kidney function or >=90 normal kindney function with possible kidney damage (ex. Proteinuria) CKD 2 Kidney damage with mild loss 60-89 of kidney function CKD 3a Mild to moderate loss of kidney 45-59 function CKD 3b Moderate to severe loss of 30-44 of kindey function CKD 4 Severe loss of kidney function 15-29 CKD 5 Kidney failure <15 Note: (go live 2024) the eGFR calculation was updated to the 2020 CKD-EPI creatinine equation without a race factor to calculate the eGFR results. Glucose [Mass/Vol] 93 mg/dL Normal 83 - 110 mg/dL AO ADM SS Magnesium [Mass/Vol] 2.4 mg/dL Normal 1.8 - 2 .4 mg/dL AO ADM SS Potassium [Moles/Vol] 3.8 mmol/L Normal 3.5 - 5.1 mmol/L AO ADM SS Sodium [Moles/Vol] 142 mmol/L Normal 136 - 145 mmol/L AO ADM SS Urea nitrogen [Mass/Vol] 40 mg/dL High 7 - 18 mg/dL AO ADM SS Urea nitrogen/Creatinine [Mass ratio] 24 ratio Normal 7 - 27 ratio AO ADM SS MGon 05-28-2024 Magnesium [Mass/Vol] 2.4 mg/dL Normal 1.8-2.4 [facility] Comment on above: Performed By: #### M DW, MG, GFR, BMP, CBC, ANEU, TROPHS, ADIFF #### [address] [address] .GFRon 05-23-2024 Estimated Glomerular Filtration Rate 39 ml/min/1.73sqm Normal [facility] Comment on above: Result Comment: Stages of Chronic Kidney Disease (CKD) Stage Description eGFR(ml/min/1.73 sq.m.) CKD 1 Normal kidney function or >=90 normal kindney function with possible kidney damage (ex. Proteinuria) CKD 2 Kidney damage with mild loss 60-89 of kidney function CKD 3a Mild to moderate loss of kidney 45-59 function CKD 3b Moderate to severe loss of 30-44 of kindey function CKD 4 Severe loss of kidney function 15-29 CKD 5 Kidney failure <15 Note: (go live 2024) the eGFR calculation was updated to the 2020 CKD-EPI creatinine equation without a race factor to calculate the eGFR results. Performed By: #### M DW, MG, GFR, BMP, CBC, ANEU, TROPHS, ADIFF #### [address] [address] BMPon 05-23-2024 BUN/Creatinine Ratio 28 ratio High 7-27 [facility] Comment on above: Performed By: #### M DW, MG, GFR, BMP, CBC, ANEU, TROPHS, ADIFF #### [address] [address] Calcium [Mass/Vol] 9.3 mg/dL Normal 8.4-10.2 [facility] Comment on above: Performed By: #### M DW, MG, GFR, BMP, CBC, ANEU, TROPHS, ADIFF #### [address] [address] Chloride [Moles/Vol] 97 mmol/L Low 98-107 [facility] Comment on above: Performed By: #### M DW, MG, GFR, BMP, CBC, ANEU, TROPHS, ADIFF #### [address] [address] CO2 [Moles/Vol] 36 mmol/L High 23-31 [facility] Comment on above: Performed By: #### M DW, MG, GFR, BMP, CBC, ANEU, TROPHS, ADIFF #### [address] [address] Creatinine [Mass/Vol] 1.37 mg/dL High 0.55-1.[address] [facility] Comment on above: Result Comment: Test ing performed on [email or web address] Dimension EXL analyzer using a modified kinetic Josse technique. Performed By: #### M DW, MG, GFR, BMP, CBC, ANEU, TROPHS, ADIFF #### [address] [address] Electrolyte Balance 3.0 mEq/L Low 4.0-15.0 [facility] Comment on above: Performed By: #### M DW, MG, GFR, BMP, CBC, ANEU, TROPHS, ADIFF #### [address] [address] Glucose [Mass/Vol] 94 mg/dL Normal 83-110 [facility] Comment on above: Performed By: #### M DW, MG, GFR, BMP, CBC, ANEU, TROPHS, ADIFF #### [address] [address] Potassium [Moles/Vol] 4.1 mmol/L Normal 3.5-5.[address] [facility] Comment on above: Performed By: #### M DW, MG, GFR, BMP, CBC, ANEU, TROPHS, ADIFF #### [address] [address] Sodium [Moles/Vol] 136 mmol/L Normal 136-145 [facility] Comment on above: Performed By: #### M DW, MG, GFR, BMP, CBC, ANEU, TROPHS, ADIFF #### [address] [address] Urea nitrogen [Mass/Vol] 39 mg/dL High 7-18 [facility] Comment on above: Performed By: #### M DW, MG, GFR, BMP, CBC, ANEU, TROPHS, ADIFF #### [id number] [place], [place] [address] LABORATORYOrdered By: SYSTEM SYSTEM on 05-23-2024 Calcium [Mass/Vol] 9.3 mg/dL Normal 8.4 - 10. 2 mg/dL AO ADM SS Chloride [Moles/Vol] 97 mmol/L Low 98 - 10 7 mmol/L AO ADM SS CO2 [Moles/Vol] 36 mmol/L High 23 - 31 mmol/L AO ADM SS Creatinine [Mass/Vol] 1.37 mg/dL High 0.55 - 1.02 mg/dL AO ADM SS Comment on above: Interpretive Data: T esting performed on [email or web address] Dimension EXL analyzer using a modified kinetic Josse technique. Electrolyte Balance 3.0 mEq/L Low 4.0 - 15 .0 mEq/L AO ADM SS Estimated Glomerular Filtration Rate 39 ml/min/1.73sqm Invalid Interpretation Code AO Chemistry S Comment on above: Interpretive Data: Stages of Chronic Kidney Disease (CKD) Stage Description eGFR(ml/min/1.73 sq.m.) CKD 1 Normal kidney function or >=90 normal kindney function with possible kidney damage (ex. Proteinuria) CKD 2 Kidney damage with mild loss 60-89 of kidney function CKD 3a Mild to moderate loss of kidney 45-59 function CKD 3b Moderate to severe loss of 30-44 of kindey function CKD 4 Severe loss of kidney function 15-29 CKD 5 Kidney failure <15 Note: (go live 2024) the eGFR calculation was updated to the 2020 CKD-EPI creatinine equation without a race factor to calculate the eGFR results. Glucose [Mass/Vol] 94 mg/dL Normal 83 - 110 mg/dL AO ADM SS Magnesium [Mass/Vol] 2.3 mg/dL Normal 1.8 - 2 .4 mg/dL AO ADM SS Potassium [Moles/Vol] 4.1 mmol/L Normal 3.5 - 5.1 mmol/L AO ADM SS Sodium [Moles/Vol] 136 mmol/L Normal 136 - 145 mmol/L AO ADM SS Urea nitrogen [Mass/Vol] 39 mg/dL High 7 - 18 mg/dL AO ADM SS Urea nitrogen/Creatinine [Mass ratio] 28 ratio High 7 - 27 ratio AO ADM SS MGon 05-23-2024 Magnesium [Mass/Vol] 2.3 mg/dL Normal 1.8-2.4 [facility] Comment on above: Performed By: #### M DW, MG, GFR, BMP, CBC, ANEU, TROPHS, ADIFF #### [address] [address] .GFRon 05-22-2024 Estimated Glomerular Filtration Rate 32 ml/min/1.73sqm Normal [facility] Comment on above: Result Comment: Stages of Chronic Kidney Disease (CKD) Stage Description eGFR(ml/min/1.73 sq.m.) CKD 1 Normal kidney function or >=90 normal kindney function with possible kidney damage (ex. Proteinuria) CKD 2 Kidney damage with mild loss 60-89 of kidney function CKD 3a Mild to moderate loss of kidney 45-59 function CKD 3b Moderate to severe loss of 30-44 of kindey function CKD 4 Severe loss of kidney function 15-29 CKD 5 Kidney failure <15 Note: (go live 2024) the eGFR calculation was updated to the 2020 CKD-EPI creatinine equation without a race factor to calculate the eGFR results. Performed By: #### A COLLIN, GFR, CMP, PBNP, CBC, TSH, ADIFF #### [address] [address] BMPon 05-22-2024 BUN/Creatinine Ratio 24 ratio Normal 7-27 [facility] Comment on above: Performed By: #### A COLLIN, GFR, CMP, PBNP, CBC, TSH, ADIFF #### [address] [address] Calcium [Mass/Vol] 9.3 mg/dL Normal 8.4-10.2 [facility] Comment on above: Performed By: #### A COLLIN, GFR, CMP, PBNP, CBC, TSH, ADIFF #### [address] [address] Chloride [Moles/Vol] 98 mmol/L Normal 98-107 [facility] Comment on above: Performed By: #### A COLLIN, GFR, CMP, PBNP, CBC, TSH, ADIFF #### [address] [address] CO2 [Moles/Vol] 38 mmol/L High 23-31 [facility] Comment on above: Performed By: #### A COLLIN, GFR, CMP, PBNP, CBC, TSH, ADIFF #### [address] [address] Creatinine [Mass/Vol] 1.61 mg/dL High 0.55-1.[address] [facility] Comment on above: Result Comment: Test ing performed on [email or web address] Dimension EXL analyzer using a modified kinetic Josse technique. Performed By: #### A COLLIN, GFR, CMP, PBNP, CBC, TSH, ADIFF #### [address] [address] Electrolyte Balance 3.0 mEq/L Low 4.0-15.0 [facility] Comment on above: Performed By: #### A COLLIN, GFR, CMP, PBNP, CBC, TSH, ADIFF #### [address] [address] Glucose [Mass/Vol] 89 mg/dL Normal 83-110 [facility] Comment on above: Performed By: #### A COLLIN, GFR, CMP, PBNP, CBC, TSH, ADIFF #### [address] [address] Potassium [Moles/Vol] 4.5 mmol/L Normal 3.5-5.[address] [facility] Comment on above: Performed By: #### A COLLIN, GFR, CMP, PBNP, CBC, TSH, ADIFF #### [address] [address] Sodium [Moles/Vol] 139 mmol/L Normal 136-145 [facility] Comment on above: Performed By: #### A COLLIN, GFR, CMP, PBNP, CBC, TSH, ADIFF #### [address] [address] Urea nitrogen [Mass/Vol] 38 mg/dL High 7-18 [facility] Comment on above: Performed By: #### A COLLIN, GFR, CMP, PBNP, CBC, TSH, ADIFF #### [id number] [place] [address] LABORATORYOrdered By: SYSTEM SYSTEM on 05-22-2024 Calcium [Mass/Vol] 9.3 mg/dL Normal 8.4 - 10. 2 mg/dL AO ADM SS Chloride [Moles/Vol] 98 mmol/L Normal 98 - 10 7 mmol/L AO ADM SS CO2 [Moles/Vol] 38 mmol/L High 23 - 31 mmol/L AO ADM SS Creatinine [Mass/Vol] 1.61 mg/dL High 0.55 - 1.02 mg/dL AO ADM SS Comment on above: Interpretive Data: T esting performed on Siem[employer] Dimension EXL analyzer using a modified kinetic Josse technique. Electrolyte Balance 3.0 mEq/L Low 4.0 - 15 .0 mEq/L AO ADM SS Estimated Glomerular Filtration Rate 32 ml/min/1.73sqm Invalid Interpretation Code AO Chemistry S Comment on above: Interpretive Data: Stages of Chronic Kidney Disease (CKD) Stage Description eGFR(ml/min/1.73 sq.m.) CKD 1 Normal kidney function or >=90 normal kindney function with possible kidney damage (ex. Proteinuria) CKD 2 Kidney damage with mild loss 60-89 of kidney function CKD 3a Mild to moderate loss of kidney 45-59 function CKD 3b Moderate to severe loss of 30-44 of kindey function CKD 4 Severe loss of kidney function 15-29 CKD 5 Kidney failure <15 Note: (go live 2024) the eGFR calculation was updated to the 2020 CKD-EPI creatinine equation without a race factor to calculate the eGFR results. Glucose [Mass/Vol] 89 mg/dL Normal 83 - 110 mg/dL AO ADM SS Magnesium [Mass/Vol] 2.1 mg/dL Normal 1.8 - 2 .4 mg/dL AO ADM SS Potassium [Moles/Vol] 4.5 mmol/L Normal 3.5 - 5.1 mmol/L AO ADM SS Sodium [Moles/Vol] 139 mmol/L Normal 136 - 145 mmol/L AO ADM SS Urea nitrogen [Mass/Vol] 38 mg/dL High 7 - 18 mg/dL AO ADM SS Urea nitrogen/Creatinine [Mass ratio] 24 ratio Normal 7 - 27 ratio AO ADM SS MGon 05-22-2024 Magnesium [Mass/Vol] 2.1 mg/dL Normal 1.8-2.4 [facility] Comment on above: Performed By: #### A COLLIN, GFR, CMP, PBNP, CBC, TSH, ADIFF #### [address] [address] .Auto Diffon 05-21-2024 Basophil, Absolute 0.1 10 3/mcL Normal 0.0-0.2 [facility] Comment on above: Performed By: #### M DW, MG, GFR, BMP, CBC, ANEU, TROPHS, ADIFF #### [address] [address] Basophils/100 WBC (Bld) 0.8 % Normal 0.0-2.5 [facility] Comment on above: Performed By: #### M DW, MG, GFR, BMP, CBC, ANEU, TROPHS, ADIFF #### [address] [address] Eosinophil, Absolute 0.2 10 3/mcL Normal 0.0-0.7 [facility] Comment on above: Performed By: #### M DW, MG, GFR, BMP, CBC, ANEU, TROPHS, ADIFF #### [address] [address] Eosinophils/100 WBC (Bld) 2.3 % Normal 0.0-7.0 [facility] Comment on above: Performed By: #### M DW, MG, GFR, BMP, CBC, ANEU, TROPHS, ADIFF #### [address] [address] Lymphocyte, Absolute 1.1 10 3/mcL Normal 0.9-4.3 [facility] Comment on above: Performed By: #### M DW, MG, GFR, BMP, CBC, ANEU, TROPHS, ADIFF #### [address] [address] Lymphocytes/100 WBC (Bld) 10.9 % Low 20.0-40.0 [facility] Comment on above: Performed By: #### M DW, MG, GFR, BMP, CBC, ANEU, TROPHS, ADIFF #### [address] [address] Monocyte, Absolute 0.9 10 3/mcL Normal 0.1-1.4 [facility] Comment on above: Performed By: #### M DW, MG, GFR, BMP, CBC, ANEU, TROPHS, ADIFF #### [address] [address] Monocytes/100 WBC (Bld) 9.1 % Normal 2.0-13.0 [facility] Comment on above: Performed By: #### M DW, MG, GFR, BMP, CBC, ANEU, TROPHS, ADIFF #### [address] [address] Neutrophils/100 WBC (Bld) 76.9 % High 50.0-75.0 [facility] Comment on above: Performed By: #### M DW, MG, GFR, BMP, CBC, ANEU, TROPHS, ADIFF #### [address] [address] .GFRon 05-21-2024 Estimated Glomerular Filtration Rate 37 ml/min/1.73sqm Normal [facility] Comment on above: Result Comment: Stages of Chronic Kidney Disease (CKD) Stage Description eGFR(ml/min/1.73 sq.m.) CKD 1 Normal kidney function or >=90 normal kindney function with possible kidney damage (ex. Proteinuria) CKD 2 Kidney damage with mild loss 60-89 of kidney function CKD 3a Mild to moderate loss of kidney 45-59 function CKD 3b Moderate to severe loss of 30-44 of kindey function CKD 4 Severe loss of kidney function 15-29 CKD 5 Kidney failure <15 Note: (go live 2024) the eGFR calculation was updated to the 2020 CKD-EPI creatinine equation without a race factor to calculate the eGFR results. Performed By: #### M DW, MG, GFR, BMP, CBC, ANEU, TROPHS, ADIFF #### [address] [address] .NEUABSon 05-21-2024 Neutrophil, Absolute 7.6 10 3/mcL Normal 2.3-8.1 [facility] Comment on above: Performed By: #### M DW, MG, GFR, BMP, CBC, ANEU, TROPHS, ADIFF #### [address] [address] BMPon 05-21-2024 BUN/Creatinine Ratio 21 ratio Normal 7-27 [facility] Comment on above: Performed By: #### M DW, MG, GFR, BMP, CBC, ANEU, TROPHS, ADIFF #### [address] [address] Calcium [Mass/Vol] 9.5 mg/dL Normal 8.4-10.2 [facility] Comment on above: Performed By: #### M DW, MG, GFR, BMP, CBC, ANEU, TROPHS, ADIFF #### [address] [address] Chloride [Moles/Vol] 97 mmol/L Low 98-107 [facility] Comment on above: Performed By: #### M DW, MG, GFR, BMP, CBC, ANEU, TROPHS, ADIFF #### [address] [address] CO2 [Moles/Vol] 37 mmol/L High 23-31 [facility] Comment on above: Performed By: #### M DW, MG, GFR, BMP, CBC, ANEU, TROPHS, ADIFF #### [address] [address] Creatinine [Mass/Vol] 1.41 mg/dL High 0.55-1.[address] [facility] Comment on above: Result Comment: Test ing performed on Siemens Dimension EXL analyzer using a modified kinetic Josse technique. Performed By: #### M DW, MG, GFR, BMP, CBC, ANEU, TROPHS, ADIFF #### [address] [address] Electrolyte Balance 2.0 mEq/L Low 4.0-15.0 [facility] Comment on above: Performed By: #### M DW, MG, GFR, BMP, CBC, ANEU, TROPHS, ADIFF #### [address] [address] Glucose [Mass/Vol] 97 mg/dL Normal 83-110 [facility] Comment on above: Performed By: #### M DW, MG, GFR, BMP, CBC, ANEU, TROPHS, ADIFF #### [address] [address] Potassium [Moles/Vol] 4.2 mmol/L Normal 3.5-5.[address] [facility] Comment on above: Performed By: #### M DW, MG, GFR, BMP, CBC, ANEU, TROPHS, ADIFF #### [address] [address] Sodium [Moles/Vol] 136 mmol/L Normal 136-145 [facility] Comment on above: Performed By: #### M DW, MG, GFR, BMP, CBC, ANEU, TROPHS, ADIFF #### [address] [address] Urea nitrogen [Mass/Vol] 29 mg/dL High 7-18 [facility] Comment on above: Performed By: #### M DW, MG, GFR, BMP, CBC, ANEU, TROPHS, ADIFF #### [address] [address] CBCon 05-21-2024 Erythrocyte distribution width (RBC) [Ratio] 13.5 % Normal 11.5-15.5 [facility] Comment on above: Performed By: #### M DW, MG, GFR, BMP, CBC, ANEU, TROPHS, ADIFF #### [address] [address] Hematocrit (Bld) [Volume fraction] 41.8 % Normal 34.0-46.0 [facility] Comment on above: Performed By: #### M DW, MG, GFR, BMP, CBC, ANEU, TROPHS, ADIFF #### [address] [address] Hgb 14.5 G/dL Normal 12.0-16.0 [facility] Comment on above: Performed By: #### M DW, MG, GFR, BMP, CBC, ANEU, TROPHS, ADIFF #### [address] [address] MCH (RBC) [Entitic mass] 30.2 pg Normal 27.0-33.0 [facility] Comment on above: Performed By: #### M DW, MG, GFR, BMP, CBC, ANEU, TROPHS, ADIFF #### [address] [address] MCHC 34.6 G/dL Normal 32.0-36.0 [facility] Comment on above: Performed By: #### M DW, MG, GFR, BMP, CBC, ANEU, TROPHS, ADIFF #### [address] [address] MCV (RBC) [Entitic vol] 87.2 fL Normal 80.0-99.0 [facility] Comment on above: Performed By: #### M DW, MG, GFR, BMP, CBC, ANEU, TROPHS, ADIFF #### [address] [address] Platelet 270 10 3/mcL Normal 150-450 [facility] Comment on above: Performed By: #### M DW, MG, GFR, BMP, CBC, ANEU, TROPHS, ADIFF #### [address] [address] Platelet mean volume (Bld) [Entitic vol] 8.6 fL Normal 6.6-10.5 [facility] Comment on above: Performed By: #### M DW, MG, GFR, BMP, CBC, ANEU, TROPHS, ADIFF #### [address] [address] RBC 4.79 10 6/mcL Normal 4.10-5.30 [facility] Comment on above: Performed By: #### M DW, MG, GFR, BMP, CBC, ANEU, TROPHS, ADIFF #### [address] [address] WBC 10.0 10 3/mcL Normal 4.5-10.8 [facility] Comment on above: Performed By: #### M DW, MG, GFR, BMP, CBC, ANEU, TROPHS, ADIFF #### [facility] [address] [place], [place] [address] LABORATORYOrdered By: SYSTEM SYSTEM on 05-21-2024 Basophils (Bld) [#/Vol] 0.1 103/mcL Normal 0.0 - 0.2 10^3/mcL AO Workflow SS Basophils/100 WBC (Bld) 0.8 % Normal 0.0 - 2.5 % AO Workflow SS Calcium [Mass/Vol] 9.5 mg/dL Normal 8.4 - 10. 2 mg/dL AO ADM SS Chloride [Moles/Vol] 97 mmol/L Low 98 - 10 7 mmol/L AO ADM SS CO2 [Moles/Vol] 37 mmol/L High 23 - 31 mmol/L AO ADM SS Creatinine [Mass/Vol] 1.41 mg/dL High 0.55 - 1.02 mg/dL AO ADM SS Comment on above: Interpretive Data: T esting performed on [email or web address] Dimension EXL analyzer using a modified kinetic Josse technique. Electrolyte Balance 2.0 mEq/L Low 4.0 - 15 .0 mEq/L AO ADM SS Eosinophil, Absolute 0.2 103/mcL Normal 0.0 - 0 .7 10^3/mcL AO Workflow SS Eosinophils/100 WBC (Bld) 2.3 % Normal 0.0 - 7.0 % AO Workflow SS Erythrocyte distribution width (RBC) [Ratio] 13.5 % Normal 11.5 - 15.5 % AO Workflow SS Estimated Glomerular Filtration Rate 37 ml/min/1.73sqm Invalid Interpretation Code AO Chemistry S Comment on above: Interpretive Data: Stages of Chronic Kidney Disease (CKD) Stage Description eGFR(ml/min/1.73 sq.m.) CKD 1 Normal kidney function or >=90 normal kindney function with possible kidney damage (ex. Proteinuria) CKD 2 Kidney damage with mild loss 60-89 of kidney function CKD 3a Mild to moderate loss of kidney 45-59 function CKD 3b Moderate to severe loss of 30-44 of kindey function CKD 4 Severe loss of kidney function 15-29 CKD 5 Kidney failure <15 Note: (go live 2024) the eGFR calculation was updated to the 2020 CKD-EPI creatinine equation without a race factor to calculate the eGFR results. Glucose [Mass/Vol] 97 mg/dL Normal 83 - 110 mg/dL AO ADM SS Hematocrit (Bld) [Volume fraction] 41.8 % Normal 34.0 - 46.0 % AO Workflow SS Hemoglobin (Bld) [Mass/Vol] 14.5 G/dL Normal 12.0 - 16.0 G/dL AO Workflow SS Lymphocytes (Bld) [#/Vol] 1.1 103/mcL Normal 0.9 - 4.3 10^3/mcL AO Workflow SS Lymphocytes/100 WBC (Bld) 10.9 % Low 20.0 - 40.0 % AO Workflow SS Magnesium [Mass/Vol] 2.0 mg/dL Normal 1.8 - 2 .4 mg/dL AO ADM SS MCH (RBC) [Entitic mass] 30.2 pg Normal 27.0 - 33.0 pg AO Workflow SS MCHC 34.6 G/dL Normal 32.0 - 36.0 G/dL AO Workflow SS MCV (RBC) [Entitic vol] 87.2 fL Normal 80.0 - 99.0 fL AO Workflow SS Monocytes (Bld) [#/Vol] 0.9 103/mcL Normal 0.1 - 1.4 10^3/mcL AO Workflow SS Monocytes/100 WBC (Bld) 9.1 % Normal 2.0 - 13.0 % AO Workflow SS Natriuretic peptide.B prohormone N-Terminal [Mass/Vol] 31548 pg/mL High 0 - 450 pg/mL AO ADM SS Comment on above: Interpretive Data: N T-proBNP results of less than 300 pg/mL effectively rules out acute congestive heart failure with 99% negative predictive value. Neutrophils (Bld) [#/Vol] 7.6 103/mcL Normal 2.3 - 8.1 10^3/mcL AO Workflow SS Neutrophils/100 WBC (Bld) 76.9 % High 50.0 - 75.0 % AO Workflow SS Platelet mean volume (Bld) [Entitic vol] 8.6 fL Normal 6.6 - 10.5 fL AO Workflow SS Platelets (Bld) [#/Vol] 270 103/mcL Normal 150 - 450 10^3/mcL AO Workflow SS Potassium [Moles/Vol] 4.2 mmol/L Normal 3.5 - 5.1 mmol/L AO ADM SS RBC (Bld) [#/Vol] 4.79 106/mcL Normal 4.10 - 5.3 0 10^6/mcL AO Workflow SS Sodium [Moles/Vol] 136 mmol/L Normal 136 - 145 mmol/L AO ADM SS Urea nitrogen [Mass/Vol] 29 mg/dL High 7 - 18 mg/dL AO ADM SS Urea nitrogen/Creatinine [Mass ratio] 21 ratio Normal 7 - 27 ratio AO ADM SS WBC (Bld) [#/Vol] 10.0 103/mcL Normal 4.5 - 10.8 10^3/mcL AO Workflow SS MGon 05-21-2024 Magnesium [Mass/Vol] 2.0 mg/dL Normal 1.8-2.4 [facility] Comment on above: Performed By: #### M DW, MG, GFR, BMP, CBC, ANEU, TROPHS, ADIFF #### [address] [address] PBNPon 05-21-2024 Natriuretic peptide B (Bld) [Mass/Vol] 365[address] pg/mL High 0-450 [facility] Comment on above: Result Comment: NT-p roBNP results of less than 300 pg/mL effectively rules out acute congestive heart failure with 99% negative predictive value. Performed By: #### M DW, MG, GFR, BMP, CBC, ANEU, TROPHS, ADIFF #### [address] [address] .Auto Diffon 05-20-2024 Basophil, Absolute 0.2 10 3/mcL Normal 0.0-0.2 [facility] Comment on above: Performed By: #### M DW, MG, GFR, BMP, CBC, ANEU, TROPHS, ADIFF #### [address] [address] Basophils/100 WBC (Bld) 1.3 % Normal 0.0-2.5 [facility] Comment on above: Performed By: #### M DW, MG, GFR, BMP, CBC, ANEU, TROPHS, ADIFF #### [address] [address] Eosinophil, Absolute 0.5 10 3/mcL Normal 0.0-0.7 [facility] Comment on above: Performed By: #### M DW, MG, GFR, BMP, CBC, ANEU, TROPHS, ADIFF #### [address] [address] Eosinophils/100 WBC (Bld) 3.5 % Normal 0.0-7.0 [facility] Comment on above: Performed By: #### M DW, MG, GFR, BMP, CBC, ANEU, TROPHS, ADIFF #### [address] [address] Lymphocyte, Absolute 1.7 10 3/mcL Normal 0.9-4.3 [facility] Comment on above: Performed By: #### M DW, MG, GFR, BMP, CBC, ANEU, TROPHS, ADIFF #### [address] [address] Lymphocytes/100 WBC (Bld) 11.9 % Low 20.0-40.0 [facility] Comment on above: Performed By: #### M DW, MG, GFR, BMP, CBC, ANEU, TROPHS, ADIFF #### [address] [address] Monocyte, Absolute 1.4 10 3/mcL Normal 0.1-1.4 [facility] Comment on above: Performed By: #### M DW, MG, GFR, BMP, CBC, ANEU, TROPHS, ADIFF #### [address] [address] Monocytes/100 WBC (Bld) 10.0 % Normal 2.0-13.0 [facility] Comment on above: Performed By: #### M DW, MG, GFR, BMP, CBC, ANEU, TROPHS, ADIFF #### [address] [address] Neutrophils/100 WBC (Bld) 73.3 % Normal 50.0-75.0 [facility] Comment on above: Performed By: #### M DW, MG, GFR, BMP, CBC, ANEU, TROPHS, ADIFF #### [address] [address] .GFRon 05-20-2024 Estimated Glomerular Filtration Rate 44 ml/min/1.73sqm [facility] Comment on above: Result Comment: Stages of Chronic Kidney Disease (CKD) Stage Description eGFR(ml/min/1.73 sq.m.) CKD 1 Normal kidney function or >=90 normal kindney function with possible kidney damage (ex. Proteinuria) CKD 2 Kidney damage with mild loss 60-89 of kidney function CKD 3a Mild to moderate loss of kidney 45-59 function CKD 3b Moderate to severe loss of 30-44 of kindey function CKD 4 Severe loss of kidney function 15-29 CKD 5 Kidney failure <15 Note: ( live 05/15/2024) the eGFR calculation was updated to the 2020 CKD-EPI creatinine equation without a race factor to calculate the eGFR results. Performed By: #### A COLLIN, GFR, CMP, PBNP, CBC, TSH, ADIFF #### [address] [address] Estimated Glomerular Filtration Rate 47 ml/min/1.73sqm Normal [facility] Comment on above: Result Comment: Stages of Chronic Kidney Disease (CKD) Stage Description eGFR(ml/min/1.73 sq.m.) CKD 1 Normal kidney function or >=90 normal kindney function with possible kidney damage (ex. Proteinuria) CKD 2 Kidney damage with mild loss 60-89 of kidney function CKD 3a Mild to moderate loss of kidney 45-59 function CKD 3b Moderate to severe loss of 30-44 of kindey function CKD 4 Severe loss of kidney function 15-29 CKD 5 Kidney failure <15 Note: (go live 2024) the eGFR calculation was updated to the 2020 CKD-EPI creatinine equation without a race factor to calculate the eGFR results. Performed By: #### M DW, MG, GFR, BMP, CBC, ANEU, TROPHS, ADIFF #### [address] [address] .NEUABSon 05-20-2024 Neutrophil, Absolute 10.2 10 3/mcL High 2.3-8.1 [facility] Comment on above: Performed By: #### M DW, MG, GFR, BMP, CBC, ANEU, TROPHS, ADIFF #### [address] [id number] BMPon 05-20-2024 BUN/Creatinine Ratio 22 ratio Normal 7-27 [facility] Comment on above: Performed By: #### A COLLIN, GFR, CMP, PBNP, CBC, TSH, ADIFF #### [address] [id number] Calcium [Mass/Vol] 9.5 mg/dL Normal 8.4-10.2 [facility] Comment on above: Performed By: #### A COLLIN, GFR, CMP, PBNP, CBC, TSH, ADIFF #### [address] [id number] Chloride [Moles/Vol] 99 mmol/L Normal 98-107 [facility] [facility] Comment on above: Performed By: #### A COLLIN, GFR, CMP, PBNP, CBC, TSH, ADIFF #### [address] [address] CO2 [Moles/Vol] 35 mmol/L High 23-31 [facility] Comment on above: Performed By: #### A COLLIN, GFR, CMP, PBNP, CBC, TSH, ADIFF #### [address] [address] Creatinine [Mass/Vol] 1.23 mg/dL High 0.55-1.[address] [facility] Comment on above: Result Comment: Test ing performed on Siemens Dimension EXL analyzer using a modified kinetic Josse technique. Performed By: #### A COLLIN, GFR, CMP, PBNP, CBC, TSH, ADIFF #### [address] [address] Electrolyte Balance 4.0 mEq/L Normal 4.0-15.0 [facility] Comment on above: Performed By: #### A COLLIN, GFR, CMP, PBNP, CBC, TSH, ADIFF #### [address] [address] Glucose [Mass/Vol] 93 mg/dL Normal 83-110 [facility] Comment on above: Performed By: #### A COLLIN, GFR, CMP, PBNP, CBC, TSH, ADIFF #### [address] [address] Potassium [Moles/Vol] 4.4 mmol/L Normal 3.5-5.[address] [facility] Comment on above: Performed By: #### A COLLIN, GFR, CMP, PBNP, CBC, TSH, ADIFF #### [address] [address] Sodium [Moles/Vol] 138 mmol/L Normal 136-145 [facility] Comment on above: Performed By: #### A COLLIN, GFR, CMP, PBNP, CBC, TSH, ADIFF #### [address] [address] Urea nitrogen [Mass/Vol] 27 mg/dL High 7-18 [facility] Comment on above: Performed By: #### A COLLIN, GFR, CMP, PBNP, CBC, TSH, ADIFF #### [address] [address] BUN/Creatinine Ratio 24 ratio Normal 7-27 [facility] Comment on above: Performed By: #### M DW, MG, GFR, BMP, CBC, ANEU, TROPHS, ADIFF #### [address] [address] Calcium [Mass/Vol] 9.6 mg/dL Normal 8.4-10.2 [facility] Comment on above: Performed By: #### M DW, MG, GFR, BMP, CBC, ANEU, TROPHS, ADIFF #### [address] [address] Chloride [Moles/Vol] 98 mmol/L Normal 98-107 [facility] Comment on above: Performed By: #### M DW, MG, GFR, BMP, CBC, ANEU, TROPHS, ADIFF #### [address] [address] CO2 [Moles/Vol] 30 mmol/L Normal 23-31 [facility] Comment on above: Performed By: #### M DW, MG, GFR, BMP, CBC, ANEU, TROPHS, ADIFF #### [address] [address] Creatinine [Mass/Vol] 1.16 mg/dL High 0.55-1.[address] [facility] Comment on above: Result Comment: Test ing performed on Siemens Dimension EXL analyzer using a modified kinetic Josse technique. Performed By: #### M DW, MG, GFR, BMP, CBC, ANEU, TROPHS, ADIFF #### [address] [address] Electrolyte Balance 8.0 mEq/L Normal 4.0-15.0 [facility] Comment on above: Performed By: #### M DW, MG, GFR, BMP, CBC, ANEU, TROPHS, ADIFF #### [address] [address] Glucose [Mass/Vol] 198 mg/dL High 83-110 [facility] Comment on above: Performed By: #### M DW, MG, GFR, BMP, CBC, ANEU, TROPHS, ADIFF #### [address] [address] Potassium [Moles/Vol] 4.3 mmol/L Normal 3.5-5.[address] [facility] Comment on above: Performed By: #### M DW, MG, GFR, BMP, CBC, ANEU, TROPHS, ADIFF #### [address] [address] Sodium [Moles/Vol] 136 mmol/L Normal 136-145 [facility] Comment on above: Performed By: #### M DW, MG, GFR, BMP, CBC, ANEU, TROPHS, ADIFF #### [address] [address] Urea nitrogen [Mass/Vol] 28 mg/dL High 7-18 [facility] Comment on above: Performed By: #### M DW, MG, GFR, BMP, CBC, ANEU, TROPHS, ADIFF #### [address] [address] CBCon 05-20-2024 Erythrocyte distribution width (RBC) [Ratio] 13.5 % Normal 11.5-15.5 [facility] Comment on above: Performed By: #### M DW, MG, GFR, BMP, CBC, ANEU, TROPHS, ADIFF #### [address] [address] Hematocrit (Bld) [Volume fraction] 44.3 % Normal 34.0-46.0 [facility] Comment on above: Performed By: #### M DW, MG, GFR, BMP, CBC, ANEU, TROPHS, ADIFF #### [address] [address] Hgb 14.9 G/dL Normal 12.0-16.0 [facility] Comment on above: Performed By: #### M DW, MG, GFR, BMP, CBC, ANEU, TROPHS, ADIFF #### [address] [address] MCH (RBC) [Entitic mass] 30.0 pg Normal 27.0-33.0 [facility] Comment on above: Performed By: #### M DW, MG, GFR, BMP, CBC, ANEU, TROPHS, ADIFF #### [address] [address] MCHC 33.7 G/dL Normal 32.0-36.0 [facility] Comment on above: Performed By: #### M DW, MG, GFR, BMP, CBC, ANEU, TROPHS, ADIFF #### [address] [address] MCV (RBC) [Entitic vol] 88.9 fL Normal 80.0-99.0 [facility] Comment on above: Performed By: #### M DW, MG, GFR, BMP, CBC, ANEU, TROPHS, ADIFF #### [address] [address] Platelet 342 10 3/mcL Normal 150-450 [facility] Comment on above: Performed By: #### M DW, MG, GFR, BMP, CBC, ANEU, TROPHS, ADIFF #### [place] [address] Platelet mean volume (Bld) [Entitic vol] 8.0 fL Normal 6.6-10.5 [facility] Comment on above: Performed By: #### M DW, MG, GFR, BMP, CBC, ANEU, TROPHS, ADIFF #### [place] [address] RBC 4.98 10 6/mcL Normal 4.10-5.30 [facility] Comment on above: Performed By: #### M DW, MG, GFR, BMP, CBC, ANEU, TROPHS, ADIFF #### [place] [address] WBC 14.0 10 3/mcL High 4.5-10.8 [facility] Comment on above: Performed By: #### M DW, MG, GFR, BMP, CBC, ANEU, TROPHS, ADIFF #### [place] [address] LABORATORYOrdered By: SYSTEM SYSTEM on 05-20-2024 Troponin I.cardiac DL <= 0.01 ng/mL [Mass/Vol] 141 ng/L High 0 - 51 ng/L AO ADM SS Comment on above: Interpretive Data: H igh Sensitive Troponin I Reference Ranges: Female: 0-51 ng/L Male: 0-76 ng/L Testing performed on [employer] using a homogeneous sandwich chemiluminescent immunoassay based on Singulex technology. Basophils (Bld) [#/Vol] 0.2 103/mcL Normal 0.0 - 0.2 10^3/mcL AO Workflow SS Basophils/100 WBC (Bld) 1.3 % Normal 0.0 - 2.5 % AO Workflow SS Calcium [Mass/Vol] 9.6 mg/dL Normal 8.4 - 10. 2 mg/dL AO ADM SS Chloride [Moles/Vol] 98 mmol/L Normal 98 - 10 7 mmol/L AO ADM SS CO2 [Moles/Vol] 30 mmol/L Normal 23 - 31 mmol/L AO ADM SS Creatinine [Mass/Vol] 1.16 mg/dL High 0.55 - 1.02 mg/dL AO ADM SS Comment on above: Interpretive Data: T esting performed on Siemens Dimension EXL analyzer using a modified kinetic Josse technique. Electrolyte Balance 8.0 mEq/L Normal 4.0 - 15 .0 mEq/L AO ADM SS Eosinophil, Absolute 0.5 103/mcL Normal 0.0 - 0 .7 10^3/mcL AO Workflow SS Eosinophils/100 WBC (Bld) 3.5 % Normal 0.0 - 7.0 % AO Workflow SS Erythrocyte distribution width (RBC) [Ratio] 13.5 % Normal 11.5 - 15.5 % AO Workflow SS Estimated Glomerular Filtration Rate 47 ml/min/1.73sqm Invalid Interpretation Code AO Chemistry S Comment on above: Interpretive Data: Stages of Chronic Kidney Disease (CKD) Stage Description eGFR(ml/min/1.73 sq.m.) CKD 1 Normal kidney function or >=90 normal kindney function with possible kidney damage (ex. Proteinuria) CKD 2 Kidney damage with mild loss 60-89 of kidney function CKD 3a Mild to moderate loss of kidney 45-59 function CKD 3b Moderate to severe loss of 30-44 of kindey function CKD 4 Severe loss of kidney function 15-29 CKD 5 Kidney failure <15 Note: (go live 2024) the eGFR calculation was updated to the 2020 CKD-EPI creatinine equation without a race factor to calculate the eGFR results. Glucose [Mass/Vol] 198 mg/dL High 83 - 110 mg/dL AO ADM SS Hematocrit (Bld) [Volume fraction] 44.3 % Normal 34.0 - 46.0 % AO Workflow SS Hemoglobin (Bld) [Mass/Vol] 14.9 G/dL Normal 12.0 - 16.0 G/dL AO Workflow SS Lymphocytes (Bld) [#/Vol] 1.7 103/mcL Normal 0.9 - 4.3 10^3/mcL AO Workflow SS Lymphocytes/100 WBC (Bld) 11.9 % Low 20.0 - 40.0 % AO Workflow SS Magnesium [Mass/Vol] 2.0 mg/dL Normal 1.8 - 2 .4 mg/dL AO ADM SS MCH (RBC) [Entitic mass] 30.0 pg Normal 27.0 - 33.0 pg AO Workflow SS MCHC 33.7 G/dL Normal 32.0 - 36.0 G/dL AO Workflow SS MCV (RBC) [Entitic vol] 88.9 fL Normal 80.0 - 99.0 fL AO Workflow SS Monocytes (Bld) [#/Vol] 1.4 103/mcL Normal 0.1 - 1.4 10^3/mcL AO Workflow SS Monocytes/100 WBC (Bld) 10.0 % Normal 2.0 - 13.0 % AO Workflow SS Natriuretic peptide.B prohormone N-Terminal [Mass/Vol] 832[address] pg/mL High 0 - 450 pg/mL AO ADM SS Comment on above: Interpretive Data: N T-proBNP results of less than 300 pg/mL effectively rules out acute congestive heart failure with 99% negative predictive value. Neutrophils (Bld) [#/Vol] 10.2 103/mcL High 2.3 - 8.1 10^3/mcL AO Workflow SS Neutrophils/100 WBC (Bld) 73.3 % Normal 50.0 - 75.0 % AO Workflow SS Platelet mean volume (Bld) [Entitic vol] 8.0 fL Normal 6.6 - 10.5 fL AO Workflow SS Platelets (Bld) [#/Vol] 342 103/mcL Normal 150 - 450 10^3/mcL AO Workflow SS Potassium [Moles/Vol] 4.3 mmol/L Normal 3.5 - 5.1 mmol/L AO ADM SS RBC (Bld) [#/Vol] 4.98 106/mcL Normal 4.10 - 5.3 0 10^6/mcL AO Workflow SS Sodium [Moles/Vol] 136 mmol/L Normal 136 - 145 mmol/L AO ADM SS Troponin I.cardiac DL <= 0.01 ng/mL [Mass/Vol] 141 ng/L High 0 - 51 ng/L AO ADM SS Comment on above: Interpretive Data: H igh Sensitive Troponin I Reference Ranges: Female: 0-51 ng/L Male: 0-76 ng/L Testing performed on [employer] using a homogeneous sandwich chemiluminescent immunoassay based on Singulex technology. Urea nitrogen [Mass/Vol] 28 mg/dL High 7 - 18 mg/dL AO ADM SS Urea nitrogen/Creatinine [Mass ratio] 24 ratio Normal 7 - 27 ratio AO ADM SS WBC (Bld) [#/Vol] 14.0 103/mcL High 4.5 - 10.8 10^3/mcL AO Workflow SS MGon 05-20-2024 Magnesium [Mass/Vol] 2.0 mg/dL Normal 1.8-2.4 [facility] Comment on above: Performed By: #### A COLLIN, GFR, CMP, PBNP, CBC, TSH, ADIFF #### [address] [address] Magnesium [Mass/Vol] 2.0 mg/dL Normal 1.8-2.4 [facility] Comment on above: Performed By: #### M DW, MG, GFR, BMP, CBC, ANEU, TROPHS, ADIFF #### [address] [address] PBNPon 05-20-2024 Natriuretic peptide B (Bld) [Mass/Vol] [address] pg/mL High 0-450 [facility] Comment on above: Result Comment: NT-p roBNP results of less than 300 pg/mL effectively rules out acute congestive heart failure with 99% negative predictive value. Performed By: #### M DW, MG, GFR, BMP, CBC, ANEU, TROPHS, ADIFF #### [place] [address] TROPHSon 05-20-2024 High Sensitivity Troponin I 141 ng/L [facility] [address] Comment on above: Result Comment: High Sensitive Troponin I Reference Ranges: Female: 0-51 ng/L Male: 0-76 ng/L Testing performed on [employer] using a homogeneous sandwich chemiluminescent immunoassay based on Singulex technology. Performed By: #### M DW, MG, GFR, BMP, CBC, ANEU, TROPHS, ADIFF #### [address] [address] High Sensitivity Troponin I 141 ng/L High [address] Comment on above: Result Comment: High Sensitive Troponin I Reference Ranges: Female: 0-51 ng/L Male: 0-76 ng/L Testing performed on Dimension EXL using a homogeneous sandwich chemiluminescent immunoassay based on Singulex technology. Performed By: #### M DW, MG, GFR, BMP, CBC, ANEU, TROPHS, ADIFF #### [place] [address] XR CHEST 1 VIEWon 05-20-2024 XR CHEST 1 VIEW ORIGINAL EXAMINATION: ONE XRAY VIEW OF THE CHEST 05/20/2024 12:06 am COMPARISON: Chest x-ray on 05/13/2024 HISTORY: ORDERING SYSTEM PROVIDED HISTORY: Reason for Exam: SOB FINDINGS: Mild cardiomegaly is unchanged. There is moderate pulmonary edema that has increased compared with chest x-ray on 05/13/2024. Small bilateral pleural effusions are present. There is no pneumothorax. There is no acute skeletal abnormality. IMPRESSION: Moderate pulmonary edema with small bilateral pleural effusions. Interpreted by: Domenic Menezes MD Preliminary Report By: Domenic Menezes MD Electronically signed By Domenic Menezes MD Dictated Date: 05/20/2024 12:10:11 AM Prelim Date: 05/20/2024 12:11:45 AM Sign Date: 05/20/2024 12:11:45 AM Ordering Provider: VINCENT Mercado [facility] .Auto Diffon 05-18-2024 Basophil, Absolute 0.1 10 3/mcL Normal 0.0-0.3 [facility] Comment on above: Performed By: #### G , BMP #### [address] [address] Basophils/100 WBC (Bld) 0.6 % Normal 0.0-2.5 [facility] Comment on above: Performed By: #### G , BMP #### [address] [address] Eosinophil, Absolute 0.4 10 3/mcL Normal 0.0-0.7 [facility] Comment on above: Performed By: #### G FR, BMP #### [address] [address] Eosinophils/100 WBC (Bld) 3.6 % Normal 0.0-6.0 [facility] Comment on above: Performed By: #### G FR, BMP #### [address] [address] Lymphocyte, Absolute 1.0 10 3/mcL Normal 0.9-4.3 [facility] Comment on above: Performed By: #### G FR, BMP #### [facility] [address] [place] [address] Lymphocytes/100 WBC (Bld) 10.5 % Low 20.0-40.0 [facility] Comment on above: Performed By: #### G , BMP #### [facility] [address] [place] [address] Monocyte, Absolute 1.1 10 3/mcL Normal 0.1-1.4 [facility] Comment on above: Performed By: #### G , BMP #### [address] [address] Monocytes/100 WBC (Bld) 11.1 % Normal 2.0-13.0 [facility] Comment on above: Performed By: #### G , BMP #### [address] [address] Neutrophils/100 WBC (Bld) 74.2 % Normal 50.0-75.0 [facility] Comment on above: Performed By: #### G , BMP #### [address] [address] .GFRon 05-18-2024 Estimated Glomerular Filtration Rate 42 ml/min/1.73sqm Normal [facility] Comment on above: Result Comment: Stages of Chronic Kidney Disease (CKD) Stage Description eGFR(ml/min/1.73 sq.m.) CKD 1 Normal kidney function or >=90 normal kindney function with possible kidney damage (ex. Proteinuria) CKD 2 Kidney damage with mild loss 60-89 of kidney function CKD 3a Mild to moderate loss of kidney 45-59 function CKD 3b Moderate to severe loss of 30-44 of kindey function CKD 4 Severe loss of kidney function 15-29 CKD 5 Kidney failure <15 Note: (go live 2024) the eGFR calculation was updated to the 2020 CKD-EPI creatinine equation without a race factor to calculate the eGFR results. Performed By: #### G , BMP #### [address] [address] .NEUABSon 05-18-2024 Neutrophil, Absolute 7.3 10 3/mcL Normal 2.3-8.1 [facility] Comment on above: Performed By: #### G , BMP #### [address] [address] APTTon 05-18-2024 aPTT Coag (Bld) [Time] 52.8 s High 25.0-35.0 [facility] Comment on above: Result Comment: For Heparin anticoagulation therapy, the recommended therapeutic range is: 54-77 seconds (APTT Correlation with Anti-Xa therapeutic range of 0.3-0.7 units/ml). PLEASE REFERENCE THE PHARMACY PROTOCOL FOR DOSING. Performed By: #### G FR, BMP #### [address] 05-18-2024 BUN/Creatinine Ratio 20.9 ratio Normal 10.0-22.0 [facility] Comment on above: Performed By: #### G FR, BMP #### [place] [address] Calcium [Mass/Vol] 9.7 mg/dL Normal 8.7-10.4 [facility] Comment on above: Performed By: #### G FR, BMP #### [place] [address] Chloride [Moles/Vol] 94 mmol/L Low 98-110 [facility] Comment on above: Performed By: #### G FR, BMP #### [place] [address] CO2 [Moles/Vol] 34 mmol/L High 22-32 [facility] Comment on above: Performed By: #### G FR, BMP #### [place] [address] Creatinine [Mass/Vol] 1.29 mg/dL High 0.50-1.20 [facility] Comment on above: Result Comment: Test ing performed on [email or web address] analyzer using enzymatic creatinine methodology. Performed By: #### G FR, BMP #### [place] [address] Electrolyte Balance 7.0 mEq/L Normal 4.0-15.0 [facility] Comment on above: Performed By: #### G FR, BMP #### [place] [address] Glucose [Mass/Vol] 95 mg/dL Normal 82-115 [facility] Comment on above: Performed By: #### G , BMP #### [place] [id number] Potassium [Moles/Vol] 3.8 mmol/L Normal 3.5-5.0 [facility] Comment on above: Performed By: #### G FR, BMP #### [place] [id number] Sodium [Moles/Vol] 135 mmol/L Low 136-145 [facility] Comment on above: Performed By: #### G , BMP #### [place] [id number] Urea nitrogen [Mass/Vol] 27.0 mg/dL High 8.0-22.0 [facility] Comment on above: Performed By: #### Ed WAGNER, BMP #### [place] [address] CBCon 05-18-2024 Erythrocyte distribution width (RBC) [Ratio] 13.2 % Normal 11.5-15.5 [facility] Comment on above: Performed By: #### G , BMP #### [place] [id number] Hematocrit (Bld) [Volume fraction] 41.3 % Normal 34.0-46.0 [facility] Comment on above: Performed By: #### G FR, BMP #### [place] [address] Hgb 14.4 G/dL Normal 12.0-16.0 [facility] Comment on above: Performed By: #### G FR, BMP #### [place] [id number] MCH (RBC) [Entitic mass] 30.4 pg Normal 27.0-33.0 [facility] Comment on above: Performed By: #### G FR, BMP #### [place] [id number] MCHC 34.7 G/dL Normal 32.0-36.0 [facility] Comment on above: Performed By: #### G FR, BMP #### [place] [id number] MCV (RBC) [Entitic vol] 87.5 fL Normal 80.0-99.0 [facility] Comment on above: Performed By: #### G FR, BMP #### [place] [address] Platelet 273 10 3/mcL Normal 150-450 [facility] Comment on above: Performed By: #### G FR, BMP #### [place] [address] Platelet mean volume (Bld) [Entitic vol] 8.3 fL Normal 6.6-10.5 [facility] Comment on above: Performed By: #### Ed FR, BMP #### [place] [address] RBC 4.73 10 6/mcL Normal 4.10-5.30 [facility] Comment on above: Performed By: #### Ed , BMP #### [place] [address] WBC 9.9 10 3/mcL Normal 4.5-10.8 [facility] Comment on above: Performed By: #### Ed , BMP #### [place] [address] HFPon 05-18-2024 Bili Indirect 0.4 mg/dL Normal 0.1-10.0 [facility] Comment on above: Performed By: #### Ed FR, BMP #### [place] [address] Albumin Level 3.2 G/dL Normal 3.2-4.8 [facility] Comment on above: Performed By: #### Ed FR, BMP #### [place] [id number] Albumin/Globulin [Mass ratio] 1.3 {ratio} Normal 0.9-1.6 [facility] Comment on above: Performed By: #### Ed FR, BMP #### [place] [address] ALP [Catalytic activity/Vol] 84 U/L Normal 38-126 [facility] Comment on above: Performed By: #### Ed , BMP #### [place] [address] ALT [Catalytic activity/Vol] 15 U/L Normal 10-49 [facility] Comment on above: Performed By: #### G FR, BMP #### [place] [address] AST [Catalytic activity/Vol] 14 U/L Normal 8-34 [facility] Comment on above: Performed By: #### Ed , BMP #### [place] [address] Bili Direct 0.2 mg/dL Normal 0.0-0.4 [facility] Comment on above: Result Comment: Use of this assay is not recommended for patients undergoing treatment with eltrombopag due to the potential for falsely elevated results. Performed By: #### Ed , BMP #### [place] [address] Bili Total 0.60 mg/dL Normal 0.20-1.20 [facility] Comment on above: Result Comment: Use of this assay is not recommended for patients undergoing treatment with eltrombopag due to the potential for falsely elevated results. Performed By: #### Ed , BMP #### [place] [address] Globulin 2.4 G/dL Normal 1.5-3.8 [facility] Comment on above: Performed By: #### Ed , BMP #### [place] [address] Total Protein 5.6 G/dL Low 5.7-8.2 [facility] Comment on above: Performed By: #### Ed , BMP #### [place] [address] LABORATORYOrdered By: SYSTEM SYSTEM on 05-18-2024 Albumin BCP dye [Mass/Vol] 3.2 G/dL Normal 3.2 - 4.8 G/dL ADM SS Albumin/Globulin [Mass ratio] 1.3 {ratio} Normal 0.9 - 1.6 ratio AH ADM SS ALP [Catalytic activity/Vol] 84 U/L Normal 38 - 126 U/L ADM SS ALT No additional P-5'-P [Catalytic activity/Vol] 15 U/L Normal 10 - 49 U/L ADM SS aPTT Coag (Bld) [Time] 52.8 s High 25.0 - 35.0 seconds [employer] SS Comment on above: Interpretive Data: F or Heparin anticoagulation therapy, the recommended therapeutic range is: 54-77 seconds (APTT Correlation with Anti-Xa therapeutic range of 0.3-0.7 units/ml). PLEASE REFERENCE THE PHARMACY PROTOCOL FOR DOSING. AST [Catalytic activity/Vol] 14 U/L Normal 8 - 34 U/L ADM SS Basophils (Bld) [#/Vol] 0.1 103/mcL Normal 0.0 - 0.3 10^3/mcL Workflow SS Basophils/100 WBC (Bld) 0.6 % Normal 0.0 - 2.5 % Workflow SS Bili Indirect 0.4 mg/dL Normal 0.1 - 10.0 mg/dL Chemistry S Bilirubin [Mass/Vol] 0.60 mg/dL Normal 0.20 - 1.20 mg/dL ADM SS Comment on above: Interpretive Data: U se of this assay is not recommended for patients undergoing treatment with eltrombopag due to the potential for falsely elevated results. Bilirubin.conjugated [Mass/Vol] 0.2 mg/dL Normal 0.0 - 0.4 mg/dL ADM SS Comment on above: Interpretive Data: U se of this assay is not recommended for patients undergoing treatment with eltrombopag due to the potential for falsely elevated results. Calcium [Mass/Vol] 9.7 mg/dL Normal 8.7 - 10. 4 mg/dL ADM SS Chloride [Moles/Vol] 94 mmol/L Low 98 - 11 0 mEq/L ADM SS CO2 [Moles/Vol] 34 mmol/L High 22 - 32 mEq/L ADM SS Creatinine [Mass/Vol] 1.29 mg/dL High 0.50 - 1.20 mg/dL ADM SS Comment on above: Interpretive Data: T esting performed on [email or web address] analyzer using enzymatic creatinine methodology. Electrolyte Balance 7.0 mEq/L Normal 4.0 - 15 .0 mEq/L ADM SS Eosinophils (Bld) [#/Vol] 0.4 103/mcL Normal 0.0 - 0.7 10^3/mcL Workflow SS Eosinophils/100 WBC (Bld) 3.6 % Normal 0.0 - 6.0 % Workflow SS Erythrocyte distribution width (RBC) [Ratio] 13.2 % Normal 11.5 - 15.5 % Workflow SS Estimated Glomerular Filtration Rate 42 ml/min/1.73sqm Invalid Interpretation Code ADM SS Comment on above: Interpretive Data: Stages of Chronic Kidney Disease (CKD) Stage Description eGFR(ml/min/1.73 sq.m.) CKD 1 Normal kidney function or >=90 normal kindney function with possible kidney damage (ex. Proteinuria) CKD 2 Kidney damage with mild loss 60-89 of kidney function CKD 3a Mild to moderate loss of kidney 45-59 function CKD 3b Moderate to severe loss of 30-44 of kindey function CKD 4 Severe loss of kidney function 15-29 CKD 5 Kidney failure <15 Note: (go live 2024) the eGFR calculation was updated to the 2020 CKD-EPI creatinine equation without a race factor to calculate the eGFR results. Globulin 2.4 G/dL Normal 1.5 - 3.8 G/dL ADM SS Glucose [Mass/Vol] 95 mg/dL Normal 82 - 115 mg/dL ADM SS Hematocrit (Bld) [Volume fraction] 41.3 % Normal 34.0 - 46.0 % Workflow SS Hemoglobin (Bld) [Mass/Vol] 14.4 G/dL Normal 12.0 - 16.0 G/dL Workflow SS Lymphocytes (Bld) [#/Vol] 1.0 103/mcL Normal 0.9 - 4.3 10^3/mcL Workflow SS Lymphocytes/100 WBC (Bld) 10.5 % Low 20.0 - 40.0 % Workflow SS Magnesium [Mass/Vol] 1.9 mg/dL Normal 1.6 - 2 .4 mg/dL ADM SS MCH (RBC) [Entitic mass] 30.4 pg Normal 27.0 - 33.0 pg Workflow SS MCHC 34.7 G/dL Normal 32.0 - 36.0 G/dL Workflow SS MCV (RBC) [Entitic vol] 87.5 fL Normal 80.0 - 99.0 fL AH Workflow SS Monocytes (Bld) [#/Vol] 1.1 103/mcL Normal 0.1 - 1.4 10^3/mcL AH Workflow SS Monocytes/100 WBC (Bld) 11.1 % Normal 2.0 - 13.0 % AH Workflow SS Neutrophils (Bld) [#/Vol] 7.3 103/mcL Normal 2.3 - 8.1 10^3/mcL AH Workflow SS Neutrophils/100 WBC (Bld) 74.2 % Normal 50.0 - 75.0 % AH Workflow SS Platelet mean volume (Bld) [Entitic vol] 8.3 fL Normal 6.6 - 10.5 fL Workflow SS Platelets (Bld) [#/Vol] 273 103/mcL Normal 150 - 450 10^3/mcL AH Workflow SS Potassium [Moles/Vol] 3.8 mmol/L Normal 3.5 - 5.0 mEq/L ADM SS Protein [Mass/Vol] 5.6 G/dL Low 5.7 - 8.2 G/dL ADM SS RBC (Bld) [#/Vol] 4.73 106/mcL Normal 4.10 - 5.3 0 10^6/mcL AH Workflow SS Sodium [Moles/Vol] 135 mmol/L Low 136 - 145 mEq/L ADM SS Urea nitrogen [Mass/Vol] 27.0 mg/dL High 8.0 - 22.0 mg/dL AH ADM SS Urea nitrogen/Creatinine [Mass ratio] 20.9 ratio Normal 10.0 - 22.0 ratio ADM SS WBC (Bld) [#/Vol] 9.9 103/mcL Normal 4.5 - 10.8 10^3/mcL Workflow SS MGon 05-18-2024 Magnesium [Mass/Vol] 1.9 mg/dL Normal 1.6-2.4 [facility] Comment on above: Performed By: #### G FR, BMP #### [address] [address] .Auto Diffon 05-17-2024 Basophil, Absolute 0.1 10 3/mcL Normal 0.0-0.3 [facility] Comment on above: Performed By: #### A COLLIN, MG, BMP, ADIFF, GFR, CBC, HFP #### [address] [address] Eosinophil, Absolute 0.4 10 3/mcL Normal 0.0-0.7 [facility] Comment on above: Performed By: #### A COLLIN, MG, BMP, ADIFF, GFR, CBC, HFP #### [address] [address] Lymphocyte, Absolute 1.0 10 3/mcL Normal 0.9-4.3 [facility] Comment on above: Performed By: #### A COLLIN, MG, BMP, ADIFF, GFR, CBC, HFP #### [address] [address] Monocyte, Absolute 1.1 10 3/mcL Normal 0.1-1.4 [facility] Comment on above: Performed By: #### A COLLIN, MG, BMP, ADIFF, GFR, CBC, HFP #### [address] [address] .Auto DiffOrdered By: SYSTEM SYSTEM on 05-17-2024 Basophils/100 WBC (Bld) 0.5 % Normal 0.0-2.5 AH Workflow SS Comment on above: Performed By: #### A COLLIN, MG, BMP, ADIFF, GFR, CBC, HFP #### [address] [address] Eosinophils/100 WBC (Bld) 3.6 % Normal 0.0-6.0 AH Workflow SS Comment on above: Performed By: #### A COLLIN, MG, BMP, ADIFF, GFR, CBC, HFP #### [address] [address] Lymphocytes/100 WBC (Bld) 8.9 % Low 20.0-40.0 AH Workflow SS Comment on above: Performed By: #### A COLLIN, MG, BMP, ADIFF, GFR, CBC, HFP #### [address] [address] Monocytes/100 WBC (Bld) 9.9 % Normal 2.0-13.0 AH Workflow SS Comment on above: Performed By: #### A COLLIN, MG, BMP, ADIFF, GFR, CBC, HFP #### [address] [address] Neutrophils/100 WBC (Bld) 77.1 % High 50.0-75.0 Workflow SS Comment on above: Performed By: #### A COLLIN, MG, BMP, ADIFF, GFR, CBC, HFP #### [address] [address] .GFROrdered By: RAMY Rodriguez on 05-17-2024 Estimated Glomerular Filtration Rate 48 ml/min/1.73sqm Normal ADM SS Comment on above: Interpretive Data: Stages of Chronic Kidney Disease (CKD) Stage Description eGFR(ml/min/1.73 sq.m.) CKD 1 Normal kidney function or >=90 normal kindney function with possible kidney damage (ex. Proteinuria) CKD 2 Kidney damage with mild loss 60-89 of kidney function CKD 3a Mild to moderate loss of kidney 45-59 function CKD 3b Moderate to severe loss of 30-44 of kindey function CKD 4 Severe loss of kidney function 15-29 CKD 5 Kidney failure <15 Note: ( live 05/15/2024) the eGFR calculation was updated to the 2020 CKD-EPI creatinine equation without a race factor to calculate the eGFR results. Result Comment: Stages of Chronic Kidney Disease (CKD) Stage Description eGFR(ml/min/1.73 sq.m.) CKD 1 Normal kidney function or >=90 normal kindney function with possible kidney damage (ex. Proteinuria) CKD 2 Kidney damage with mild loss 60-89 of kidney function CKD 3a Mild to moderate loss of kidney 45-59 function CKD 3b Moderate to severe loss of 30-44 of kindey function CKD 4 Severe loss of kidney function 15-29 CKD 5 Kidney failure <15 Note: ( live 05/15/2024) the eGFR calculation was updated to the 2020 CKD-EPI creatinine equation without a race factor to calculate the eGFR results. Performed By: #### A COLLIN, MG, BMP, ADIFF, GFR, CBC, HFP #### [address] [address] .NEUABSon 05-17-2024 Neutrophil, Absolute 8.8 10 3/mcL High 2.3-8.1 [facility] Comment on above: Performed By: #### A COLLIN, MG, BMP, ADIFF, GFR, CBC, HFP #### [address] [address] APTTOrdered By: SYSTEM [email or web address] on 05-17-2024 aPTT Coag (Bld) [Time] 54.9 s High 25.0-35.0 AH [facility] SS Comment on above: Interpretive Data: F or Heparin anticoagulation therapy, the recommended therapeutic range is: 54-77 seconds (APTT Correlation with Anti-Xa therapeutic range of 0.3-0.7 units/ml). PLEASE REFERENCE THE PHARMACY PROTOCOL FOR DOSING. Result Comment: For Heparin anticoagulation therapy, the recommended therapeutic range is: 54-77 seconds (APTT Correlation with Anti-Xa therapeutic range of 0.3-0.7 units/ml). PLEASE REFERENCE THE PHARMACY PROTOCOL FOR DOSING. Performed By: #### A COLLIN, MG, BMP, ADIFF, GFR, CBC, HFP #### [place] [address] BMPon 05-17-2024 BUN/Creatinine Ratio 20.9 ratio Normal 10.0-22.0 [facility] Comment on above: Performed By: #### A COLLIN, MG, BMP, ADIFF, GFR, CBC, HFP #### [place] [address] BMPOrdered By: [employer] on 05-17-2024 Calcium [Mass/Vol] 9.9 mg/dL Normal 8.7-10.4 AH ADM SS Comment on above: Performed By: #### A COLLIN, MG, BMP, ADIFF, GFR, CBC, HFP #### [place] [address] Chloride [Moles/Vol] 89 mmol/L Low 98-110 AH A DM SS Comment on above: Performed By: #### A COLLIN, MG, BMP, ADIFF, GFR, CBC, HFP #### [place] [address] CO2 [Moles/Vol] 37 mmol/L High 22-32 AH ADM SS Comment on above: Performed By: #### A COLLIN, MG, BMP, ADIFF, GFR, CBC, HFP #### [place] [address] Creatinine [Mass/Vol] 1.15 mg/dL Normal 0.50-1.20 AH ADM SS Comment on above: Interpretive Data: T esting performed on [employer] CH analyzer using enzymatic creatinine methodology. Result Comment: Test ing performed on [employer] CH analyzer using enzymatic creatinine methodology. Performed By: #### A COLLIN, MG, BMP, ADIFF, GFR, CBC, HFP #### [address] [address] Electrolyte Balance 6.0 mEq/L Normal 4.0-15.0 AD M SS Comment on above: Performed By: #### A COLLIN, MG, BMP, ADIFF, GFR, CBC, HFP #### [place] [id number] Glucose [Mass/Vol] 99 mg/dL Normal 82-115 ADM SS Comment on above: Performed By: #### A COLLIN, MG, BMP, ADIFF, GFR, CBC, HFP #### [place] [address] Potassium [Moles/Vol] 3.8 mmol/L Normal 3.5-5.0 ADM SS Comment on above: Performed By: #### A COLLIN, MG, BMP, ADIFF, GFR, CBC, HFP #### [place] [id number] Sodium [Moles/Vol] 132 mmol/L Low 136-145 ADM SS Comment on above: Performed By: #### A COLLIN, MG, BMP, ADIFF, GFR, CBC, HFP #### [place] [id number] Urea nitrogen [Mass/Vol] 24.0 mg/dL High 8.0-22.0 ADM SS Comment on above: Performed By: #### A COLLIN, MG, BMP, ADIFF, GFR, CBC, HFP #### [address] [address] CBCOrdered By: SYSTEM SYSTEM on 05-17-2024 Erythrocyte distribution width (RBC) [Ratio] 13.0 % Normal 11.5-15.5 Workflow SS Comment on above: Performed By: #### A COLLIN, MG, BMP, ADIFF, GFR, CBC, HFP #### [place] [id number] Hematocrit (Bld) [Volume fraction] 44.2 % Normal 34.0-46.0 AH Workflow SS Comment on above: Performed By: #### A COLLIN, MG, BMP, ADIFF, GFR, CBC, HFP #### [place] [id number] MCH (RBC) [Entitic mass] 29.8 pg Normal 27.0-33.0 AH Workflow SS Comment on above: Performed By: #### A COLLIN, MG, BMP, ADIFF, GFR, CBC, HFP #### [place] [id number] MCHC 34.2 G/dL Normal 32.0-36.0 AH Workflow SS Comment on above: Performed By: #### A COLLIN, MG, BMP, ADIFF, GFR, CBC, HFP #### [place] [address] MCV (RBC) [Entitic vol] 87.2 fL Normal 80.0-99.0 AH Workflow SS Comment on above: Performed By: #### A COLLIN, MG, BMP, ADIFF, GFR, CBC, HFP #### [place] [address] Platelet mean volume (Bld) [Entitic vol] 8.2 fL Normal 6.6-10.5 AH Workflow SS Comment on above: Performed By: #### A COLLIN, MG, BMP, ADIFF, GFR, CBC, HFP #### [address] [address] CBCon 05-17-2024 Hgb 15.1 G/dL Normal 12.0-16.0 [facility] Comment on above: Performed By: #### A COLLIN, MG, BMP, ADIFF, GFR, CBC, HFP #### [place] [id number] Platelet 283 10 3/mcL Normal 150-450 [facility] Comment on above: Performed By: #### A COLLIN, MG, BMP, ADIFF, GFR, CBC, HFP #### [place] [address] RBC 5.07 10 6/mcL Normal 4.10-5.30 [facility] Comment on above: Performed By: #### A COLLIN, MG, BMP, ADIFF, GFR, CBC, HFP #### [place] [address] WBC 11.4 10 3/mcL High 4.5-10.8 [facility] Comment on above: Performed By: #### A COLLIN, MG, BMP, ADIFF, GFR, CBC, HFP #### [place] [address] HFPOrdered By: SYSTEM SYSTEM on 05-17-2024 Bili Indirect 0.4 mg/dL Normal 0.1-10.0 AH Chemistr y S Comment on above: Performed By: #### A COLLIN, MG, BMP, ADIFF, GFR, CBC, HFP #### [place] [address] Albumin/Globulin [Mass ratio] 1.3 {ratio} Normal 0.9-1.6 AH ADM SS Comment on above: Performed By: #### A COLLIN, MG, BMP, ADIFF, GFR, CBC, HFP #### [place] [address] ALP [Catalytic activity/Vol] 95 U/L Normal 38-126 AH ADM SS Comment on above: Performed By: #### A COLLIN, MG, BMP, ADIFF, GFR, CBC, HFP #### [place] [address] AST [Catalytic activity/Vol] 16 U/L Normal 8-34 AH ADM SS Comment on above: Performed By: #### A COLLIN, MG, BMP, ADIFF, GFR, CBC, HFP #### [place] [address] Globulin 2.6 G/dL Normal 1.5-3.8 AH ADM SS Comment on above: Performed By: #### A COLLIN, MG, BMP, ADIFF, GFR, CBC, HFP #### [address] 05-17-2024 Albumin Level 3.3 G/dL Normal 3.2-4.8 [facility] Comment on above: Performed By: #### A COLLIN, MG, BMP, ADIFF, GFR, CBC, HFP #### [address] [address] ALT [Catalytic activity/Vol] 18 U/L Normal 10-49 [facility] Comment on above: Performed By: #### A COLLIN, MG, BMP, ADIFF, GFR, CBC, HFP #### [address] [address] Bili Direct 0.2 mg/dL Normal 0.0-0.4 [facility] Comment on above: Result Comment: Use of this assay is not recommended for patients undergoing treatment with eltrombopag due to the potential for falsely elevated results. Performed By: #### A COLLIN, MG, BMP, ADIFF, GFR, CBC, HFP #### [place] [address] Bili Total 0.60 mg/dL Normal 0.20-1.20 [facility] Comment on above: Result Comment: Use of this assay is not recommended for patients undergoing treatment with eltrombopag due to the potential for falsely elevated results. Performed By: #### A COLLIN, MG, BMP, ADIFF, GFR, CBC, HFP #### [place] [address] Total Protein 5.9 G/dL Normal 5.7-8.2 [facility] Comment on above: Performed By: #### A COLLIN, MG, BMP, ADIFF, GFR, CBC, HFP #### [place] [address] LABORATORYOrdered By: SYSTEM SYSTEM on 05-17-2024 Albumin BCP dye [Mass/Vol] 3.3 G/dL Normal 3.2 - 4.8 G/dL ADM SS ALT No additional P-5'-P [Catalytic activity/Vol] 18 U/L Normal 10 - 49 U/L ADM SS Basophils (Bld) [#/Vol] 0.1 103/mcL Normal 0.0 - 0.3 10^3/mcL AH Workflow SS Bilirubin [Mass/Vol] 0.60 mg/dL Normal 0.20 - 1.20 mg/dL ADM SS Comment on above: Interpretive Data: U se of this assay is not recommended for patients undergoing treatment with eltrombopag due to the potential for falsely elevated results. Bilirubin.conjugated [Mass/Vol] 0.2 mg/dL Normal 0.0 - 0.4 mg/dL ADM SS Comment on above: Interpretive Data: U se of this assay is not recommended for patients undergoing treatment with eltrombopag due to the potential for falsely elevated results. Eosinophils (Bld) [#/Vol] 0.4 103/mcL Normal 0.0 - 0.7 10^3/mcL Workflow SS Hemoglobin (Bld) [Mass/Vol] 15.1 G/dL Normal 12.0 - 16.0 G/dL AH Workflow SS Lymphocytes (Bld) [#/Vol] 1.0 103/mcL Normal 0.9 - 4.3 10^3/mcL AH Workflow SS Monocytes (Bld) [#/Vol] 1.1 103/mcL Normal 0.1 - 1.4 10^3/mcL AH Workflow SS Neutrophils (Bld) [#/Vol] 8.8 103/mcL High 2.3 - 8.1 10^3/mcL AH Workflow SS Platelets (Bld) [#/Vol] 283 103/mcL Normal 150 - 450 10^3/mcL AH Workflow SS Protein [Mass/Vol] 5.9 G/dL Normal 5.7 - 8.2 G/dL ADM SS RBC (Bld) [#/Vol] 5.07 106/mcL Normal 4.10 - 5.3 0 10^6/mcL Workflow SS Urea nitrogen/Creatinine [Mass ratio] 20.9 ratio Normal 10.0 - 22.0 ratio ADM SS WBC (Bld) [#/Vol] 11.4 103/mcL High 4.5 - 10.8 10^3/mcL Workflow SS MGOrdered By: SYSTEM SYSTEM on 05-17-2024 Magnesium [Mass/Vol] 1.9 mg/dL Normal 1.6-2.4 A DM SS Comment on above: Performed By: #### A COLLIN, MG, BMP, ADIFF, GFR, CBC, HFP #### [address] [address] .Auto Diffon 05-16-2024 Basophil, Absolute 0.1 10 3/mcL Normal 0.0-0.3 [facility] Comment on above: Performed By: #### A COLLIN, MG, BMP, ADIFF, GFR, CBC, HFP #### [address] [address] Basophils/100 WBC (Bld) 0.9 % Normal 0.0-2.5 [facility] Comment on above: Performed By: #### A COLLIN, MG, BMP, ADIFF, GFR, CBC, HFP #### [address] [address] Eosinophil, Absolute 0.4 10 3/mcL Normal 0.0-0.7 [facility] Comment on above: Performed By: #### A COLLIN, MG, BMP, ADIFF, GFR, CBC, HFP #### [address] [address] Eosinophils/100 WBC (Bld) 3.6 % Normal 0.0-6.0 [facility] Comment on above: Performed By: #### A COLLIN, MG, BMP, ADIFF, GFR, CBC, HFP #### [address] [address] Lymphocyte, Absolute 1.0 10 3/mcL Normal 0.9-4.3 [facility] Comment on above: Performed By: #### A COLLIN, MG, BMP, ADIFF, GFR, CBC, HFP #### [address] [address] Lymphocytes/100 WBC (Bld) 9.8 % Low 20.0-40.0 [facility] Comment on above: Performed By: #### A COLLIN, MG, BMP, ADIFF, GFR, CBC, HFP #### [address] [address] Monocyte, Absolute 1.0 10 3/mcL Normal 0.1-1.4 [facility] Comment on above: Performed By: #### A COLLIN, MG, BMP, ADIFF, GFR, CBC, HFP #### [address] [address] Monocytes/100 WBC (Bld) 9.6 % Normal 2.0-13.0 [facility] Comment on above: Performed By: #### A COLLIN, MG, BMP, ADIFF, GFR, CBC, HFP #### [address] [address] Neutrophils/100 WBC (Bld) 76.1 % High 50.0-75.0 [facility] Comment on above: Performed By: #### A COLLIN, MG, BMP, ADIFF, GFR, CBC, HFP #### [address] [address] .GFRon 05-16-2024 Estimated Glomerular Filtration Rate 45 ml/min/1.73sqm Normal [facility] Comment on above: Result Comment: Stages of Chronic Kidney Disease (CKD) Stage Description eGFR(ml/min/1.73 sq.m.) CKD 1 Normal kidney function or >=90 normal kindney function with possible kidney damage (ex. Proteinuria) CKD 2 Kidney damage with mild loss 60-89 of kidney function CKD 3a Mild to moderate loss of kidney 45-59 function CKD 3b Moderate to severe loss of 30-44 of kindey function CKD 4 Severe loss of kidney function 15-29 CKD 5 Kidney failure <15 Note: (go live 2024) the eGFR calculation was updated to the 2020 CKD-EPI creatinine equation without a race factor to calculate the eGFR results. Performed By: #### A COLLIN, MG, BMP, ADIFF, GFR, CBC, HFP #### [address] [address] .NEUABSon 05-16-2024 Neutrophil, Absolute 7.8 10 3/mcL Normal 2.3-8.1 [facility] Comment on above: Performed By: #### A COLLIN, MG, BMP, ADIFF, GFR, CBC, HFP #### [place] [id number] APTTon 05-16-2024 aPTT Coag (Bld) [Time] 57.1 s High 25.0-35.0 [facility] Comment on above: Result Comment: For Heparin anticoagulation therapy, the recommended therapeutic range is: 54-77 seconds (APTT Correlation with Anti-Xa therapeutic range of 0.3-0.7 units/ml). PLEASE REFERENCE THE PHARMACY PROTOCOL FOR DOSING. Performed By: #### A COLLIN, MG, BMP, ADIFF, GFR, CBC, HFP #### [address] [address] BMPon 05-16-2024 BUN/Creatinine Ratio 18.9 ratio Normal 10.0-22.0 [facility] Comment on above: Performed By: #### A COLLIN, MG, BMP, ADIFF, GFR, CBC, HFP #### [address] [address] Calcium [Mass/Vol] 9.9 mg/dL Normal 8.7-10.4 [facility] Comment on above: Performed By: #### A COLLIN, MG, BMP, ADIFF, GFR, CBC, HFP #### [address] [address] Chloride [Moles/Vol] 91 mmol/L Low 98-110 [facility] Comment on above: Performed By: #### A COLLIN, MG, BMP, ADIFF, GFR, CBC, HFP #### [address] [address] CO2 [Moles/Vol] 38 mmol/L High 22-32 [facility] Comment on above: Performed By: #### A COLLIN, MG, BMP, ADIFF, GFR, CBC, HFP #### [address] [address] Creatinine [Mass/Vol] 1.22 mg/dL High 0.50-1.20 [facility] Comment on above: Result Comment: Test ing performed on [email or web address] analyzer using enzymatic creatinine methodology. Performed By: #### A COLLIN, MG, BMP, ADIFF, GFR, CBC, HFP #### [address] [address] Electrolyte Balance 8.0 mEq/L Normal 4.0-15.0 [facility] Comment on above: Performed By: #### A COLLIN, MG, BMP, ADIFF, GFR, CBC, HFP #### [address] [address] Glucose [Mass/Vol] 93 mg/dL Normal 82-115 [facility] Comment on above: Performed By: #### A COLLIN, MG, BMP, ADIFF, GFR, CBC, HFP #### [address] [address] Potassium [Moles/Vol] 3.9 mmol/L Normal 3.5-5.0 [facility] Comment on above: Performed By: #### A COLLIN, MG, BMP, ADIFF, GFR, CBC, HFP #### [place] [address] Sodium [Moles/Vol] 137 mmol/L Normal 136-145 [facility] Comment on above: Performed By: #### A COLLIN, MG, BMP, ADIFF, GFR, CBC, HFP #### [place] [address] Urea nitrogen [Mass/Vol] 23.0 mg/dL High 8.0-22.0 [facility] Comment on above: Performed By: #### A COLLIN, MG, BMP, ADIFF, GFR, CBC, HFP #### [place] [address] CBCon 05-16-2024 Erythrocyte distribution width (RBC) [Ratio] 13.3 % Normal 11.5-15.5 [facility] Comment on above: Performed By: #### A COLLIN, MG, BMP, ADIFF, GFR, CBC, HFP #### [place] [address] Hematocrit (Bld) [Volume fraction] 42.1 % Normal 34.0-46.0 [facility] Comment on above: Performed By: #### A COLLIN, MG, BMP, ADIFF, GFR, CBC, HFP #### [place] [id number] Hgb 14.5 G/dL Normal 12.0-16.0 [facility] Comment on above: Performed By: #### A COLLIN, MG, BMP, ADIFF, GFR, CBC, HFP #### [place] [address] MCH (RBC) [Entitic mass] 30.2 pg Normal 27.0-33.0 [facility] Comment on above: Performed By: #### A COLLIN, MG, BMP, ADIFF, GFR, CBC, HFP #### [place] [address] MCHC 34.5 G/dL Normal 32.0-36.0 [facility] Comment on above: Performed By: #### A COLLIN, MG, BMP, ADIFF, GFR, CBC, HFP #### [place] [address] MCV (RBC) [Entitic vol] 87.7 fL Normal 80.0-99.0 [facility] Comment on above: Performed By: #### A COLLIN, MG, BMP, ADIFF, GFR, CBC, HFP #### [place] [address] Platelet 275 10 3/mcL Normal 150-450 [facility] Comment on above: Performed By: #### A COLLIN, MG, BMP, ADIFF, GFR, CBC, HFP #### [place] [address] Platelet mean volume (Bld) [Entitic vol] 7.8 fL Normal 6.6-10.5 [facility] Comment on above: Performed By: #### A COLLIN, MG, BMP, ADIFF, GFR, CBC, HFP #### [place] [address] RBC 4.80 10 6/mcL Normal 4.10-5.30 [facility] Comment on above: Performed By: #### A COLLIN, MG, BMP, ADIFF, GFR, CBC, HFP #### [place] [address] WBC 10.2 10 3/mcL Normal 4.5-10.8 [facility] Comment on above: Performed By: #### A COLLIN, MG, BMP, ADIFF, GFR, CBC, HFP #### [address] [address] HFPon 05-16-2024 Bili Indirect 0.4 mg/dL Normal 0.1-10.0 [facility] Comment on above: Performed By: #### A COLLIN, MG, BMP, ADIFF, GFR, CBC, HFP #### [place] [address] Albumin Level 3.3 G/dL Normal 3.2-4.8 [facility] Comment on above: Performed By: #### A COLLIN, MG, BMP, ADIFF, GFR, CBC, HFP #### [place] [address] Albumin/Globulin [Mass ratio] 1.2 {ratio} Normal 0.9-1.6 [facility] Comment on above: Performed By: #### A COLLIN, MG, BMP, ADIFF, GFR, CBC, HFP #### [place] [address] ALP [Catalytic activity/Vol] 97 U/L Normal 38-126 [facility] Comment on above: Performed By: #### A COLLIN, MG, BMP, ADIFF, GFR, CBC, HFP #### [place] [address] ALT [Catalytic activity/Vol] 21 U/L Normal 10-49 [facility] Comment on above: Performed By: #### A COLLIN, MG, BMP, ADIFF, GFR, CBC, HFP #### [place] [id number] AST [Catalytic activity/Vol] 18 U/L Normal 8-34 [facility] Comment on above: Performed By: #### A COLLIN, MG, BMP, ADIFF, GFR, CBC, HFP #### [place] [address] Bili Direct 0.2 mg/dL Normal 0.0-0.4 [facility] Comment on above: Result Comment: Use of this assay is not recommended for patients undergoing treatment with eltrombopag due to the potential for falsely elevated results. Performed By: #### A COLLIN, MG, BMP, ADIFF, GFR, CBC, HFP #### [place] [address] Bili Total 0.60 mg/dL Normal 0.20-1.20 [facility] Comment on above: Result Comment: Use of this assay is not recommended for patients undergoing treatment with eltrombopag due to the potential for falsely elevated results. Performed By: #### A COLLIN, MG, BMP, ADIFF, GFR, CBC, HFP #### [place] [address] Globulin 2.7 G/dL Normal 1.5-3.8 [facility] Comment on above: Performed By: #### A COLLIN, MG, BMP, ADIFF, GFR, CBC, HFP #### [address] [address] Total Protein 6.0 G/dL Normal 5.7-8.2 [facility] Comment on above: Performed By: #### A COLLIN, MG, BMP, ADIFF, GFR, CBC, HFP #### [address] [address] LABORATORYOrdered By: SYSTEM SYSTEM on 05-16-2024 Albumin BCP dye [Mass/Vol] 3.3 G/dL Normal 3.2 - 4.8 G/dL ADM SS Albumin/Globulin [Mass ratio] 1.2 {ratio} Normal 0.9 - 1.6 ratio ADM SS ALP [Catalytic activity/Vol] 97 U/L Normal 38 - 126 U/L ADM SS ALT No additional P-5'-P [Catalytic activity/Vol] 21 U/L Normal 10 - 49 U/L ADM SS aPTT Coag (Bld) [Time] 57.1 s High 25.0 - 35.0 seconds [facility] SS Comment on above: Interpretive Data: F or Heparin anticoagulation therapy, the recommended therapeutic range is: 54-77 seconds (APTT Correlation with Anti-Xa therapeutic range of 0.3-0.7 units/ml). PLEASE REFERENCE THE PHARMACY PROTOCOL FOR DOSING. AST [Catalytic activity/Vol] 18 U/L Normal 8 - 34 U/L ADM SS Basophils (Bld) [#/Vol] 0.1 103/mcL Normal 0.0 - 0.3 10^3/mcL Workflow SS Basophils/100 WBC (Bld) 0.9 % Normal 0.0 - 2.5 % Workflow SS Bili Indirect 0.4 mg/dL Normal 0.1 - 10.0 mg/dL Chemistry S Bilirubin [Mass/Vol] 0.60 mg/dL Normal 0.20 - 1.20 mg/dL ADM SS Comment on above: Interpretive Data: U se of this assay is not recommended for patients undergoing treatment with eltrombopag due to the potential for falsely elevated results. Bilirubin.conjugated [Mass/Vol] 0.2 mg/dL Normal 0.0 - 0.4 mg/dL AH ADM SS Comment on above: Interpretive Data: U se of this assay is not recommended for patients undergoing treatment with eltrombopag due to the potential for falsely elevated results. Calcium [Mass/Vol] 9.9 mg/dL Normal 8.7 - 10. 4 mg/dL AH ADM SS Chloride [Moles/Vol] 91 mmol/L Low 98 - 11 0 mEq/L AH ADM SS CO2 [Moles/Vol] 38 mmol/L High 22 - 32 mEq/L AH ADM SS Creatinine [Mass/Vol] 1.22 mg/dL High 0.50 - 1.20 mg/dL AH ADM SS Comment on above: Interpretive Data: T esting performed on [email or web address] analyzer using enzymatic creatinine methodology. Electrolyte Balance 8.0 mEq/L Normal 4.0 - 15 .0 mEq/L ADM SS Eosinophils (Bld) [#/Vol] 0.4 103/mcL Normal 0.0 - 0.7 10^3/mcL Workflow SS Eosinophils/100 WBC (Bld) 3.6 % Normal 0.0 - 6.0 % Workflow SS Erythrocyte distribution width (RBC) [Ratio] 13.3 % Normal 11.5 - 15.5 % Workflow SS Estimated Glomerular Filtration Rate 45 ml/min/1.73sqm Invalid Interpretation Code ADM SS Comment on above: Interpretive Data: Stages of Chronic Kidney Disease (CKD) Stage Description eGFR(ml/min/1.73 sq.m.) CKD 1 Normal kidney function or >=90 normal kindney function with possible kidney damage (ex. Proteinuria) CKD 2 Kidney damage with mild loss 60-89 of kidney function CKD 3a Mild to moderate loss of kidney 45-59 function CKD 3b Moderate to severe loss of 30-44 of kindey function CKD 4 Severe loss of kidney function 15-29 CKD 5 Kidney failure <15 Note: (go live 2024) the eGFR calculation was updated to the 2020 CKD-EPI creatinine equation without a race factor to calculate the eGFR results. Globulin 2.7 G/dL Normal 1.5 - 3.8 G/dL ADM SS Glucose [Mass/Vol] 93 mg/dL Normal 82 - 115 mg/dL ADM SS Hematocrit (Bld) [Volume fraction] 42.1 % Normal 34.0 - 46.0 % AH Workflow SS Hemoglobin (Bld) [Mass/Vol] 14.5 G/dL Normal 12.0 - 16.0 G/dL AH Workflow SS Lymphocytes (Bld) [#/Vol] 1.0 103/mcL Normal 0.9 - 4.3 10^3/mcL AH Workflow SS Lymphocytes/100 WBC (Bld) 9.8 % Low 20.0 - 40.0 % AH Workflow SS Magnesium [Mass/Vol] 1.9 mg/dL Normal 1.6 - 2 .4 mg/dL AH ADM SS MCH (RBC) [Entitic mass] 30.2 pg Normal 27.0 - 33.0 pg AH Workflow SS MCHC 34.5 G/dL Normal 32.0 - 36.0 G/dL AH Workflow SS MCV (RBC) [Entitic vol] 87.7 fL Normal 80.0 - 99.0 fL AH Workflow SS Monocytes (Bld) [#/Vol] 1.0 103/mcL Normal 0.1 - 1.4 10^3/mcL AH Workflow SS Monocytes/100 WBC (Bld) 9.6 % Normal 2.0 - 13.0 % AH Workflow SS Neutrophils (Bld) [#/Vol] 7.8 103/mcL Normal 2.3 - 8.1 10^3/mcL AH Workflow SS Neutrophils/100 WBC (Bld) 76.1 % High 50.0 - 75.0 % AH Workflow SS Platelet mean volume (Bld) [Entitic vol] 7.8 fL Normal 6.6 - 10.5 fL AH Workflow SS Platelets (Bld) [#/Vol] 275 103/mcL Normal 150 - 450 10^3/mcL AH Workflow SS Potassium [Moles/Vol] 3.9 mmol/L Normal 3.5 - 5.0 mEq/L ADM SS Protein [Mass/Vol] 6.0 G/dL Normal 5.7 - 8.2 G/dL AH ADM SS RBC (Bld) [#/Vol] 4.80 106/mcL Normal 4.10 - 5.3 0 10^6/mcL AH Workflow SS Sodium [Moles/Vol] 137 mmol/L Normal 136 - 145 mEq/L ADM SS Urea nitrogen [Mass/Vol] 23.0 mg/dL High 8.0 - 22.0 mg/dL AH ADM SS Urea nitrogen/Creatinine [Mass ratio] 18.9 ratio Normal 10.0 - 22.0 ratio AH ADM SS WBC (Bld) [#/Vol] 10.2 103/mcL Normal 4.5 - 10.8 10^3/mcL AH Workflow SS MGon 05-16-2024 Magnesium [Mass/Vol] 1.9 mg/dL Normal 1.6-2.4 [facility] Comment on above: Performed By: #### A COLLIN, MG, BMP, ADIFF, GFR, CBC, HFP #### [address] [address] .Auto Diffon 05-15-2024 Basophil, Absolute 0.1 10 3/mcL Normal 0.0-0.3 [facility] Comment on above: Performed By: #### A COLLIN, MG, BMP, ADIFF, GFR, CBC, HFP #### [address] [address] Basophils/100 WBC (Bld) 0.9 % Normal 0.0-2.5 [facility] Comment on above: Performed By: #### A COLLIN, MG, BMP, ADIFF, GFR, CBC, HFP #### [address] [address] Eosinophil, Absolute 0.4 10 3/mcL Normal 0.0-0.7 [facility] Comment on above: Performed By: #### A COLLIN, MG, BMP, ADIFF, GFR, CBC, HFP #### [address] [address] Eosinophils/100 WBC (Bld) 4.3 % Normal 0.0-6.0 [facility] Comment on above: Performed By: #### A COLLIN, MG, BMP, ADIFF, GFR, CBC, HFP #### [address] [address] Lymphocyte, Absolute 1.1 10 3/mcL Normal 0.9-4.3 [facility] Comment on above: Performed By: #### A COLLIN, MG, BMP, ADIFF, GFR, CBC, HFP #### [address] [address] Lymphocytes/100 WBC (Bld) 10.6 % Low 20.0-40.0 [facility] Comment on above: Performed By: #### A COLLIN, MG, BMP, ADIFF, GFR, CBC, HFP #### [place] [id number] [place] [address] Monocyte, Absolute 0.9 10 3/mcL Normal 0.1-1.4 [facility] Comment on above: Performed By: #### A COLLIN, MG, BMP, ADIFF, GFR, CBC, HFP #### [address] [address] Monocytes/100 WBC (Bld) 9.1 % Normal 2.0-13.0 [facility] Comment on above: Performed By: #### A COLLIN, MG, BMP, ADIFF, GFR, CBC, HFP #### [address] [address] Neutrophils/100 WBC (Bld) 75.1 % High 50.0-75.0 [facility] Comment on above: Performed By: #### A COLLIN, MG, BMP, ADIFF, GFR, CBC, HFP #### [address] [address] .GFRon 05-15-2024 Estimated Glomerular Filtration Rate 53 ml/min/1.73sqm [facility] Comment on above: Result Comment: Stages of Chronic Kidney Disease (CKD) Stage Description eGFR(ml/min/1.73 sq.m.) CKD 1 Normal kidney function or >=90 normal kindney function with possible kidney damage (ex. Proteinuria) CKD 2 Kidney damage with mild loss 60-89 of kidney function CKD 3a Mild to moderate loss of kidney 45-59 function CKD 3b Moderate to severe loss of 30-44 of kindey function CKD 4 Severe loss of kidney function 15-29 CKD 5 Kidney failure <15 Note: (go live 2024) the eGFR calculation was updated to the 2020 CKD-EPI creatinine equation without a race factor to calculate the eGFR results. Performed By: #### G FR, BMP #### [address] [address] GFR >60 Normal [facility] Comment on above: Result Comment: GFR Population mean for , Non- Americans Ages 20-29 = 116 mL/min/1.73 sq.m. Ages 30-39 = 107 mL/min/1.73 sq.m. Ages 40-49 = 99 mL/min/1.73 sq.m. Ages 50-59 = 93 mL/min/1.73 sq.m. Ages 60-69 = 85 mL/min/1.73 sq.m. Ages 70+ = 75 mL/min/1.73 sq.m. Chronic Kidney Disease: Less than 60 mL/min/1.73 square meters End Stage Renal Disease: Less than 15 mL/min/1.73 square meters Performed By: #### A COLLIN, MG, BMP, ADIFF, GFR, CBC, HFP #### [address] [address] GFR Non- 56 ml/min/1.73sqm Normal [facility] Comment on above: Result Comment: GFR Population mean for , Non- Americans Ages 20-29 = 116 mL/min/1.73 sq.m. Ages 30-39 = 107 mL/min/1.73 sq.m. Ages 40-49 = 99 mL/min/1.73 sq.m. Ages 50-59 = 93 mL/min/1.73 sq.m. Ages 60-69 = 85 mL/min/1.73 sq.m. Ages 70+ = 75 mL/min/1.73 sq.m. Chronic Kidney Disease: Less than 60 mL/min/1.73 square meters End Stage Renal Disease: Less than 15 mL/min/1.73 square meters Performed By: #### A COLLIN, MG, BMP, ADIFF, GFR, CBC, HFP #### [address] [address] .NEUABSon 05-15-2024 Neutrophil, Absolute 7.8 10 3/mcL Normal 2.3-8.1 [facility] Comment on above: Performed By: #### A COLLIN, MG, BMP, ADIFF, GFR, CBC, HFP #### [address] [address] APTTon 05-15-2024 aPTT Coag (Bld) [Time] 53.5 s High 25.0-35.0 [facility] Comment on above: Order Comment: QNS - please recollect Result Comment: For Heparin anticoagulation therapy, the recommended therapeutic range is: 54-77 seconds (APTT Correlation with Anti-Xa therapeutic range of 0.3-0.7 units/ml). PLEASE REFERENCE THE PHARMACY PROTOCOL FOR DOSING. Performed By: #### G FR, BMP #### [address] [address] [facility] BUN/Creatinine Ratio 18.9 ratio Normal 10.0-22.0 [facility] Comment on above: Performed By: #### G FR, BMP #### [address] [address] Calcium [Mass/Vol] 10.0 mg/dL Normal 8.7-10.4 [facility] Comment on above: Performed By: #### G FR, BMP #### [address] [address] Chloride [Moles/Vol] 96 mmol/L Low 98-110 [facility] Comment on above: Performed By: #### G FR, BMP #### [address] [address] CO2 [Moles/Vol] 34 mmol/L High 22-32 [facility] Comment on above: Performed By: #### G FR, BMP #### [address] [address] Creatinine [Mass/Vol] 1.06 mg/dL Normal 0.50-1.20 [facility] Comment on above: Result Comment: Test ing performed on [email or web address] analyzer using enzymatic creatinine methodology. Performed By: #### G FR, BMP #### [address] [address] Electrolyte Balance 7.0 mEq/L Normal 4.0-15.0 [facility] Comment on above: Performed By: #### G FR, BMP #### [address] [address] Glucose [Mass/Vol] 84 mg/dL Normal 82-115 [facility] Comment on above: Performed By: #### G FR, BMP #### [facility] [address] [place], [place] [address] Potassium [Moles/Vol] 4.2 mmol/L Normal 3.5-5.0 [facility] Comment on above: Performed By: #### G FR, BMP #### [address] [address] Sodium [Moles/Vol] 137 mmol/L Normal 136-145 [facility] Comment on above: Performed By: #### G FR, BMP #### [address] [address] Urea nitrogen [Mass/Vol] 20.0 mg/dL Normal 8.0-22.0 [facility] Comment on above: Performed By: #### G FR, BMP #### [address] [address] BUN/Creatinine Ratio 17.7 ratio Normal 10.0-22.0 [facility] Comment on above: Performed By: #### A COLLIN, MG, BMP, ADIFF, GFR, CBC, HFP #### [address] [address] Calcium [Mass/Vol] 9.5 mg/dL Normal 8.7-10.4 [facility] Comment on above: Performed By: #### A COLLIN, MG, BMP, ADIFF, GFR, CBC, HFP #### [address] [address] Chloride [Moles/Vol] 98 mmol/L Normal 98-110 [facility] Comment on above: Performed By: #### A COLLIN, MG, BMP, ADIFF, GFR, CBC, HFP #### [address] [address] CO2 [Moles/Vol] 31 mmol/L Normal 22-32 [facility] Comment on above: Performed By: #### A COLLIN, MG, BMP, ADIFF, GFR, CBC, HFP #### [address] [address] Creatinine [Mass/Vol] 0.96 mg/dL Normal 0.50-1.20 [facility] Comment on above: Result Comment: Test ing performed on [email or web address] analyzer using enzymatic creatinine methodology. Performed By: #### A COLLIN, MG, BMP, ADIFF, GFR, CBC, HFP #### [place] [id number] Electrolyte Balance 9.0 mEq/L Normal 4.0-15.0 [facility] Comment on above: Performed By: #### A COLLIN, MG, BMP, ADIFF, GFR, CBC, HFP #### [place] [id number] Glucose [Mass/Vol] 86 mg/dL Normal 82-115 [facility] Comment on above: Performed By: #### A COLLIN, MG, BMP, ADIFF, GFR, CBC, HFP #### [place] [id number] Potassium [Moles/Vol] 3.7 mmol/L Normal 3.5-5.0 [facility] Comment on above: Performed By: #### A COLLIN, MG, BMP, ADIFF, GFR, CBC, HFP #### [place] [id number] Sodium [Moles/Vol] 138 mmol/L Normal 136-145 [facility] Comment on above: Performed By: #### A COLLIN, MG, BMP, ADIFF, GFR, CBC, HFP #### [place] [address] Urea nitrogen [Mass/Vol] 17.0 mg/dL Normal 8.0-22.0 [facility] Comment on above: Performed By: #### A COLLIN, MG, BMP, ADIFF, GFR, CBC, HFP #### [address] [address] CBCon 05-15-2024 Erythrocyte distribution width (RBC) [Ratio] 13.4 % Normal 11.5-15.5 [facility] Comment on above: Performed By: #### A COLLIN, MG, BMP, ADIFF, GFR, CBC, HFP #### [place] [id number] Hematocrit (Bld) [Volume fraction] 42.5 % Normal 34.0-46.0 [facility] Comment on above: Performed By: #### A COLLIN, MG, BMP, ADIFF, GFR, CBC, HFP #### [place] [address] Hgb 14.5 G/dL Normal 12.0-16.0 [facility] Comment on above: Performed By: #### A COLLIN, MG, BMP, ADIFF, GFR, CBC, HFP #### [place] [address] MCH (RBC) [Entitic mass] 30.2 pg Normal 27.0-33.0 [facility] Comment on above: Performed By: #### A COLLIN, MG, BMP, ADIFF, GFR, CBC, HFP #### [place] [address] MCHC 34.0 G/dL Normal 32.0-36.0 [facility] Comment on above: Performed By: #### A COLLIN, MG, BMP, ADIFF, GFR, CBC, HFP #### [place] [address] MCV (RBC) [Entitic vol] 88.8 fL Normal 80.0-99.0 [facility] Comment on above: Performed By: #### A COLLIN, MG, BMP, ADIFF, GFR, CBC, HFP #### [place] [address] Platelet 285 10 3/mcL Normal 150-450 [facility] Comment on above: Performed By: #### A COLLIN, MG, BMP, ADIFF, GFR, CBC, HFP #### [place] [address] Platelet mean volume (Bld) [Entitic vol] 7.9 fL Normal 6.6-10.5 [facility] Comment on above: Performed By: #### A COLLIN, MG, BMP, ADIFF, GFR, CBC, HFP #### [place] [address] RBC 4.78 10 6/mcL Normal 4.10-5.30 [facility] Comment on above: Performed By: #### A COLLIN, MG, BMP, ADIFF, GFR, CBC, HFP #### [place] [address] WBC 10.4 10 3/mcL Normal 4.5-10.8 [facility] Comment on above: Performed By: #### A COLLIN, MG, BMP, ADIFF, GFR, CBC, HFP #### [address] [address] HFPon 05-15-2024 Bili Indirect 0.3 mg/dL Normal 0.1-10.0 [facility] Comment on above: Performed By: #### A COLLIN, MG, BMP, ADIFF, GFR, CBC, HFP #### [place] [address] Albumin Level 3.2 G/dL Normal 3.2-4.8 [facility] Comment on above: Performed By: #### A COLLIN, MG, BMP, ADIFF, GFR, CBC, HFP #### [place] [address] Albumin/Globulin [Mass ratio] 1.2 {ratio} Normal 0.9-1.6 [facility] Comment on above: Performed By: #### A COLLIN, MG, BMP, ADIFF, GFR, CBC, HFP #### [address] [address] ALP [Catalytic activity/Vol] 98 U/L Normal 38-126 [facility] Comment on above: Performed By: #### A COLLIN, MG, BMP, ADIFF, GFR, CBC, HFP #### [address] [address] ALT [Catalytic activity/Vol] 22 U/L Normal 10-49 [facility] Comment on above: Performed By: #### A COLLIN, MG, BMP, ADIFF, GFR, CBC, HFP #### [address] [address] AST [Catalytic activity/Vol] 21 U/L Normal 8-34 [facility] Comment on above: Performed By: #### A COLLIN, MG, BMP, ADIFF, GFR, CBC, HFP #### [place] [address] Bili Direct 0.2 mg/dL Normal 0.0-0.4 [facility] Comment on above: Result Comment: Use of this assay is not recommended for patients undergoing treatment with eltrombopag due to the potential for falsely elevated results. Performed By: #### A COLLIN, MG, BMP, ADIFF, GFR, CBC, HFP #### [place] [address] Bili Total 0.50 mg/dL Normal 0.20-1.20 [facility] Comment on above: Result Comment: Use of this assay is not recommended for patients undergoing treatment with eltrombopag due to the potential for falsely elevated results. Performed By: #### A COLLIN, MG, BMP, ADIFF, GFR, CBC, HFP #### [place] [address] Globulin 2.6 G/dL Normal 1.5-3.8 [facility] Comment on above: Performed By: #### A COLLIN, MG, BMP, ADIFF, GFR, CBC, HFP #### [place] [address] Total Protein 5.8 G/dL Normal 5.7-8.2 [facility] Comment on above: Performed By: #### A COLLIN, MG, BMP, ADIFF, GFR, CBC, HFP #### [place] [address] LABORATORYOrdered By: SYSTEM SYSTEM on 05-15-2024 GFR/1.73 sq M.predicted among blacks MDRD (S/P/Bld) [Vol rate/Area] ml/min/1.73sqm Invalid Interpretation Code ADM SS Comment on above: Interpretive Data: GFR Population mean for , Non- Americans Ages 20-29 = 116 mL/min/1.73 sq.m. Ages 30-39 = 107 mL/min/1.73 sq.m. Ages 40-49 = 99 mL/min/1.73 sq.m. Ages 50-59 = 93 mL/min/1.73 sq.m. Ages 60-69 = 85 mL/min/1.73 sq.m. Ages 70+ = 75 mL/min/1.73 sq.m. Chronic Kidney Disease: Less than 60 mL/min/1.73 square meters End Stage Renal Disease: Less than 15 mL/min/1.73 square meters GFR/1.73 sq M.predicted among non-blacks MDRD (S/P/Bld) [Vol rate/Area] 56 ml/min/1.73sqm Invalid Interpretation Code AH ADM SS Comment on above: Interpretive Data: GFR Population mean for , Non- Americans Ages 20-29 = 116 mL/min/1.73 sq.m. Ages 30-39 = 107 mL/min/1.73 sq.m. Ages 40-49 = 99 mL/min/1.73 sq.m. Ages 50-59 = 93 mL/min/1.73 sq.m. Ages 60-69 = 85 mL/min/1.73 sq.m. Ages 70+ = 75 mL/min/1.73 sq.m. Chronic Kidney Disease: Less than 60 mL/min/1.73 square meters End Stage Renal Disease: Less than 15 mL/min/1.73 square meters MGon 05-15-2024 Magnesium [Mass/Vol] 1.9 mg/dL Normal 1.6-2.4 [facility] Comment on above: Performed By: #### A COLLIN, MG, BMP, ADIFF, GFR, CBC, HFP #### [address] [address] .Auto Diffon 05-14-2024 Basophil, Absolute 0.1 10 3/mcL Normal 0.0-0.3 [facility] Comment on above: Performed By: #### A COLLIN, MG, BMP, ADIFF, GFR, CBC, HFP #### [address] [address] Basophils/100 WBC (Bld) 0.8 % Normal 0.0-2.5 [facility] Comment on above: Performed By: #### A COLLIN, MG, BMP, ADIFF, GFR, CBC, HFP #### [address] [address] Eosinophil, Absolute 0.3 10 3/mcL Normal 0.0-0.7 [facility] Comment on above: Performed By: #### A COLLIN, MG, BMP, ADIFF, GFR, CBC, HFP #### [address] [address] Eosinophils/100 WBC (Bld) 2.5 % Normal 0.0-6.0 [facility] Comment on above: Performed By: #### A COLLIN, MG, BMP, ADIFF, GFR, CBC, HFP #### [address] [address] Lymphocyte, Absolute 0.9 10 3/mcL Normal 0.9-4.3 [facility] Comment on above: Performed By: #### A COLLIN, MG, BMP, ADIFF, GFR, CBC, HFP #### [address] [address] Lymphocytes/100 WBC (Bld) 8.2 % Low 20.0-40.0 [facility] Comment on above: Performed By: #### A COLLIN, MG, BMP, ADIFF, GFR, CBC, HFP #### [address] [address] Monocyte, Absolute 1.1 10 3/mcL Normal 0.1-1.4 [facility] Comment on above: Performed By: #### A COLLIN, MG, BMP, ADIFF, GFR, CBC, HFP #### [address] [address] Monocytes/100 WBC (Bld) 9.6 % Normal 2.0-13.0 [facility] Comment on above: Performed By: #### A COLLIN, MG, BMP, ADIFF, GFR, CBC, HFP #### [address] [address] Neutrophils/100 WBC (Bld) 78.9 % High 50.0-75.0 [facility] Comment on above: Performed By: #### A COLLIN, MG, BMP, ADIFF, GFR, CBC, HFP #### [address] [address] .GFRon 05-14-2024 GFR >60 Normal [facility] Comment on above: Result Comment: GFR Population mean for , Non- Americans Ages 20-29 = 116 mL/min/1.73 sq.m. Ages 30-39 = 107 mL/min/1.73 sq.m. Ages 40-49 = 99 mL/min/1.73 sq.m. Ages 50-59 = 93 mL/min/1.73 sq.m. Ages 60-69 = 85 mL/min/1.73 sq.m. Ages 70+ = 75 mL/min/1.73 sq.m. Chronic Kidney Disease: Less than 60 mL/min/1.73 square meters End Stage Renal Disease: Less than 15 mL/min/1.73 square meters Performed By: #### A COLLIN, MG, BMP, ADIFF, GFR, CBC, HFP #### [place] [address] GFR Non- 51 ml/min/1.73sqm [facility] Comment on above: Result Comment: GFR Population mean for , Non- Americans Ages 20-29 = 116 mL/min/1.73 sq.m. Ages 30-39 = 107 mL/min/1.73 sq.m. Ages 40-49 = 99 mL/min/1.73 sq.m. Ages 50-59 = 93 mL/min/1.73 sq.m. Ages 60-69 = 85 mL/min/1.73 sq.m. Ages 70+ = 75 mL/min/1.73 sq.m. Chronic Kidney Disease: Less than 60 mL/min/1.73 square meters End Stage Renal Disease: Less than 15 mL/min/1.73 square meters Performed By: #### A COLLIN, MG, BMP, ADIFF, GFR, CBC, HFP #### [place] [id number] .NEUABSon 05-14-2024 Neutrophil, Absolute 8.8 10 3/mcL High 2.3-8.1 [facility] Comment on above: Performed By: #### A COLLIN, MG, BMP, ADIFF, GFR, CBC, HFP #### [place] [address] A1Con 05-14-2024 Glucose [Mass/Vol] 105 mg/dL [facility] Comment on above: Result Comment: Mayte mated Average Glucose calculated by equation ((28.7xA1C)-46.7) Estimated average glucose (eAG) is a calculated value from Hemoglobin A1C and is pharmaceutical specialty representative of the average blood glucose level in the last 2-3 month period. Normal range: less than 114 mg/dL Performed By: #### A COLLIN, MG, BMP, ADIFF, GFR, CBC, HFP #### [place] [id number] HbA1c (Bld) [Mass fraction] 5.3 % Normal 4.0-6.0 [facility] Comment on above: Performed By: #### A COLLIN, MG, BMP, ADIFF, GFR, CBC, HFP #### [place] [id number] APTTon 05-14-2024 aPTT Coag (Bld) [Time] 56.4 s High 25.0-35.0 [facility] Comment on above: Result Comment: For Heparin anticoagulation therapy, the recommended therapeutic range is: 54-77 seconds (APTT Correlation with Anti-Xa therapeutic range of 0.3-0.7 units/ml). PLEASE REFERENCE THE PHARMACY PROTOCOL FOR DOSING. Performed By: #### G FR, BMP #### [place] [id number] aPTT Coag (Bld) [Time] 47.2 s High 25.0-35.0 [facility] Comment on above: Result Comment: For Heparin anticoagulation therapy, the recommended therapeutic range is: 54-77 seconds (APTT Correlation with Anti-Xa therapeutic range of 0.3-0.7 units/ml). PLEASE REFERENCE THE PHARMACY PROTOCOL FOR DOSING. Performed By: #### G FR, BMP #### [place] [address] aPTT Coag (Bld) [Time] 61.5 s High 25.0-35.0 [facility] Comment on above: Result Comment: For Heparin anticoagulation therapy, the recommended therapeutic range is: 54-77 seconds (APTT Correlation with Anti-Xa therapeutic range of 0.3-0.7 units/ml). PLEASE REFERENCE THE PHARMACY PROTOCOL FOR DOSING. Performed By: #### A COLLIN, MG, BMP, ADIFF, GFR, CBC, HFP #### [place] [id number] aPTT Coag (Bld) [Time] 38.1 s High 25.0-35.0 [facility] Comment on above: Result Comment: For Heparin anticoagulation therapy, the recommended therapeutic range is: 54-77 seconds (APTT Correlation with Anti-Xa therapeutic range of 0.3-0.7 units/ml). PLEASE REFERENCE THE PHARMACY PROTOCOL FOR DOSING. Performed By: #### G FR, BMP #### [address] [address] BMPon 05-14-2024 BUN/Creatinine Ratio 14.6 ratio Normal 10.0-22.0 [facility] Comment on above: Performed By: #### A COLLIN, MG, BMP, ADIFF, GFR, CBC, HFP #### [place] [id number] Calcium [Mass/Vol] 9.4 mg/dL Normal 8.7-10.4 [facility] Comment on above: Performed By: #### A COLLIN, MG, BMP, ADIFF, GFR, CBC, HFP #### [place] [id number] Chloride [Moles/Vol] 100 mmol/L Normal 98-110 [facility] Comment on above: Performed By: #### A COLLIN, MG, BMP, ADIFF, GFR, CBC, HFP #### [place] [id number] CO2 [Moles/Vol] 31 mmol/L Normal 22-32 [facility] Comment on above: Performed By: #### A COLLIN, MG, BMP, ADIFF, GFR, CBC, HFP #### [place] [address] Creatinine [Mass/Vol] 1.03 mg/dL Normal 0.50-1.20 [facility] Comment on above: Result Comment: Test ing performed on [email or web address] analyzer using enzymatic creatinine methodology. Performed By: #### A COLLIN, MG, BMP, ADIFF, GFR, CBC, HFP #### [place] [id number] Electrolyte Balance 8.0 mEq/L Normal 4.0-15.0 [facility] Comment on above: Performed By: #### A COLLIN, MG, BMP, ADIFF, GFR, CBC, HFP #### [address] [address] Glucose [Mass/Vol] 99 mg/dL Normal 82-115 [facility] Comment on above: Performed By: #### A COLLIN, MG, BMP, ADIFF, GFR, CBC, HFP #### [address] [address] Potassium [Moles/Vol] 3.8 mmol/L Normal 3.5-5.0 [facility] Comment on above: Performed By: #### A COLLIN, MG, BMP, ADIFF, GFR, CBC, HFP #### [address] [address] Sodium [Moles/Vol] 139 mmol/L Normal 136-145 [facility] Comment on above: Performed By: #### A COLLIN, MG, BMP, ADIFF, GFR, CBC, HFP #### [place] [address] Urea nitrogen [Mass/Vol] 15.0 mg/dL Normal 8.0-22.0 [facility] Comment on above: Performed By: #### A COLLIN, MG, BMP, ADIFF, GFR, CBC, HFP #### [address] [address] CBCon 05-14-2024 Erythrocyte distribution width (RBC) [Ratio] 13.7 % Normal 11.5-15.5 [facility] Comment on above: Performed By: #### A COLLIN, MG, BMP, ADIFF, GFR, CBC, HFP #### [place] [id number] Hematocrit (Bld) [Volume fraction] 41.1 % Normal 34.0-46.0 [facility] Comment on above: Performed By: #### A COLLIN, MG, BMP, ADIFF, GFR, CBC, HFP #### [place] [id number] Hgb 14.0 G/dL Normal 12.0-16.0 [facility] Comment on above: Performed By: #### A COLLIN, MG, BMP, ADIFF, GFR, CBC, HFP #### [place] [address] MCH (RBC) [Entitic mass] 30.0 pg Normal 27.0-33.0 [facility] Comment on above: Performed By: #### A COLLIN, MG, BMP, ADIFF, GFR, CBC, HFP #### [place] [address] MCHC 33.9 G/dL Normal 32.0-36.0 [facility] Comment on above: Performed By: #### A COLLIN, MG, BMP, ADIFF, GFR, CBC, HFP #### [place] [address] MCV (RBC) [Entitic vol] 88.5 fL Normal 80.0-99.0 [facility] Comment on above: Performed By: #### A COLLIN, MG, BMP, ADIFF, GFR, CBC, HFP #### [place] [address] Platelet 285 10 3/mcL Normal 150-450 [facility] Comment on above: Performed By: #### A COLLIN, MG, BMP, ADIFF, GFR, CBC, HFP #### [place] [id number] Platelet mean volume (Bld) [Entitic vol] 8.1 fL Normal 6.6-10.5 [facility] Comment on above: Performed By: #### A COLLIN, MG, BMP, ADIFF, GFR, CBC, HFP #### [place] [address] RBC 4.65 10 6/mcL Normal 4.10-5.30 [facility] Comment on above: Performed By: #### A COLLIN, MG, BMP, ADIFF, GFR, CBC, HFP #### [place] [address] WBC 11.2 10 3/mcL High 4.5-10.8 [facility] Comment on above: Performed By: #### A COLLIN, MG, BMP, ADIFF, GFR, CBC, HFP #### [place] [address] HFPon 05-14-2024 Bili Indirect 0.3 mg/dL Normal 0.1-10.0 [facility] Comment on above: Performed By: #### A COLLIN, MG, BMP, ADIFF, GFR, CBC, HFP #### [place] [id number] Albumin Level 3.4 G/dL Normal 3.2-4.8 [facility] Comment on above: Performed By: #### A COLLIN, MG, BMP, ADIFF, GFR, CBC, HFP #### [place] [address] Albumin/Globulin [Mass ratio] 1.4 {ratio} Normal 0.9-1.6 [facility] Comment on above: Performed By: #### A COLLIN, MG, BMP, ADIFF, GFR, CBC, HFP #### [place] [address] ALP [Catalytic activity/Vol] 101 U/L Normal 38-126 [facility] Comment on above: Performed By: #### A COLLIN, MG, BMP, ADIFF, GFR, CBC, HFP #### [place] [address] ALT [Catalytic activity/Vol] 29 U/L Normal 10-49 [facility] Comment on above: Performed By: #### A COLLIN, MG, BMP, ADIFF, GFR, CBC, HFP #### [place] [address] AST [Catalytic activity/Vol] 23 U/L Normal 8-34 [facility] Comment on above: Performed By: #### A COLLIN, MG, BMP, ADIFF, GFR, CBC, HFP #### [place] [address] Bili Direct 0.2 mg/dL Normal 0.0-0.4 [facility] Comment on above: Result Comment: Use of this assay is not recommended for patients undergoing treatment with eltrombopag due to the potential for falsely elevated results. Performed By: #### A COLLIN, MG, BMP, ADIFF, GFR, CBC, HFP #### [place] [address] Bili Total 0.50 mg/dL Normal 0.20-1.20 [facility] Comment on above: Result Comment: Use of this assay is not recommended for patients undergoing treatment with eltrombopag due to the potential for falsely elevated results. Performed By: #### A COLLIN, MG, BMP, ADIFF, GFR, CBC, HFP #### [address] [address] Globulin 2.5 G/dL Normal 1.5-3.8 [facility] Comment on above: Performed By: #### A COLLIN, MG, BMP, ADIFF, GFR, CBC, HFP #### [address] [address] Total Protein 5.9 G/dL Normal 5.7-8.2 [facility] Comment on above: Performed By: #### A COLLIN, MG, BMP, ADIFF, GFR, CBC, HFP #### [address] [address] LABORATORYOrdered By: Crissy Dutta on 05-14-2024 Cholesterol [Mass/Vol] 143 mg/dL Normal 50 - 199 mg/dL [facility] Comment on above: Interpretive Data: C holesterol Reference Interval: Less than 200 Desirable 200-239 Borderline high risk 240 and above High risk Cholesterol in HDL [Mass/Vol] 54 mg/dL Normal 40 - 59 mg/dL ADM Cholesterol in LDL [Mass/Vol] 77 mg/dL Normal 0 - 129 mg/dL [facility] Triglyceride [Mass/Vol] 61 mg/dL Normal 3 - 149 mg/dL [facility] LABORATORYOrdered By: SYSTEM SYSTEM on 05-14-2024 GFR/1.73 sq M.predicted among blacks MDRD (S/P/Bld) [Vol rate/Area] ml/min/1.73sqm Invalid Interpretation Code ADM SS Comment on above: Interpretive Data: GFR Population mean for , Non- Americans Ages 20-29 = 116 mL/min/1.73 sq.m. Ages 30-39 = 107 mL/min/1.73 sq.m. Ages 40-49 = 99 mL/min/1.73 sq.m. Ages 50-59 = 93 mL/min/1.73 sq.m. Ages 60-69 = 85 mL/min/1.73 sq.m. Ages 70+ = 75 mL/min/1.73 sq.m. Chronic Kidney Disease: Less than 60 mL/min/1.73 square meters End Stage Renal Disease: Less than 15 mL/min/1.73 square meters GFR/1.73 sq M.predicted among non-blacks MDRD (S/P/Bld) [Vol rate/Area] 51 ml/min/1.73sqm Invalid Interpretation Code ADM SS Comment on above: Interpretive Data: GFR Population mean for , Non- Americans Ages 20-29 = 116 mL/min/1.73 sq.m. Ages 30-39 = 107 mL/min/1.73 sq.m. Ages 40-49 = 99 mL/min/1.73 sq.m. Ages 50-59 = 93 mL/min/1.73 sq.m. Ages 60-69 = 85 mL/min/1.73 sq.m. Ages 70+ = 75 mL/min/1.73 sq.m. Chronic Kidney Disease: Less than 60 mL/min/1.73 square meters End Stage Renal Disease: Less than 15 mL/min/1.73 square meters Glucose [Mass/Vol] 105 mg/dL Invalid Interpretation Code Auto Chem SS Comment on above: Interpretive Data: E stimated average glucose (eAG) is a calculated value from Hemoglobin A1C and is pharmaceutical specialty representative of the average blood glucose level in the last 2-3 month period. Normal range: less than 114 mg/dL HbA1c (Bld) [Mass fraction] 5.3 % Normal 4.0 - 6.0 % Auto Chem SS TSH Qn 1.218 mIU/mL Normal 0.550 - 4.780 mIU/mL ADM Troponin I.cardiac DL <= 0.01 ng/mL [Mass/Vol] 133 ng/L High 0 - 34 ng/L ADM Comment on above: Interpretive Data: High Sensitive Troponin I Reference Ranges: Female: 0-34 ng/L Male: 0-54 ng/L Testing performed on [employer] analyzer using direct chemiluminescent technology. LIPIDon 05-14-2024 Cholesterol [Mass/Vol] 143 mg/dL Normal 50-199 [facility] Comment on above: Result Comment: Chol esterol Reference Interval: Less than 200 Desirable 200-239 Borderline high risk 240 and above High risk Performed By: #### A CLOLIN, MG, BMP, ADIFF, GFR, CBC, HFP #### [place] [address] Cholesterol in HDL [Mass/Vol] 54 mg/dL Normal 40-59 [facility] Comment on above: Performed By: #### A COLLIN, MG, BMP, ADIFF, GFR, CBC, HFP #### [place] [address] Cholesterol in LDL [Mass/Vol] 77 mg/dL Normal 0-129 [facility] Comment on above: Performed By: #### A COLLIN, MG, BMP, ADIFF, GFR, CBC, HFP #### [place] [address] Triglyceride [Mass/Vol] 61 mg/dL Normal 3-149 [facility] Comment on above: Performed By: #### A COLLIN, MG, BMP, ADIFF, GFR, CBC, HFP #### [place] [address] MGon 05-14-2024 Magnesium [Mass/Vol] 2.0 mg/dL Normal 1.6-2.4 [facility] Comment on above: Performed By: #### A COLLIN, MG, BMP, ADIFF, GFR, CBC, HFP #### [address] [address] TROPHSon 05-14-2024 High Sensitivity Troponin I 133 ng/L High 0-34 [facility] Comment on above: Result Comment: High Sensitive Troponin I Reference Ranges: Female: 0-34 ng/L Male: 0-54 ng/L Testing performed on [employer] analyzer using direct chemiluminescent technology. Performed By: #### A COLLIN, MG, BMP, ADIFF, GFR, CBC, HFP #### [place] [address] TSHRon 05-14-2024 TSH 1.218 mIU/mL Normal 0.550-4.780 [facility] Comment on above: Performed By: #### A COLLIN, MG, BMP, ADIFF, GFR, CBC, HFP #### [address] [address] .Auto Diffon 05-13-2024 Basophil, Absolute 0.1 10 3/mcL Normal 0.0-0.2 [facility] Comment on above: Performed By: #### M DW, MG, GFR, BMP, CBC, ANEU, TROPHS, ADIFF #### [address] [address] Basophils/100 WBC (Bld) 1.2 % Normal 0.0-2.5 [facility] Comment on above: Performed By: #### M DW, MG, GFR, BMP, CBC, ANEU, TROPHS, ADIFF #### [address] [address] Eosinophil, Absolute 0.2 10 3/mcL Normal 0.0-0.7 [facility] Comment on above: Performed By: #### M DW, MG, GFR, BMP, CBC, ANEU, TROPHS, ADIFF #### [address] [address] Eosinophils/100 WBC (Bld) 2.3 % Normal 0.0-7.0 [facility] Comment on above: Performed By: #### M DW, MG, GFR, BMP, CBC, ANEU, TROPHS, ADIFF #### [address] [address] Lymphocyte, Absolute 1.0 10 3/mcL Normal 0.9-4.3 [facility] Comment on above: Performed By: #### M DW, MG, GFR, BMP, CBC, ANEU, TROPHS, ADIFF #### [address] [address] Lymphocytes/100 WBC (Bld) 9.5 % Low 20.0-40.0 [facility] Comment on above: Performed By: #### M DW, MG, GFR, BMP, CBC, ANEU, TROPHS, ADIFF #### [address] [address] Monocyte, Absolute 0.8 10 3/mcL Normal 0.1-1.4 [facility] Comment on above: Performed By: #### M DW, MG, GFR, BMP, CBC, ANEU, TROPHS, ADIFF #### [address] [address] Monocytes/100 WBC (Bld) 8.1 % Normal 2.0-13.0 [facility] Comment on above: Performed By: #### M DW, MG, GFR, BMP, CBC, ANEU, TROPHS, ADIFF #### [address] [address] Neutrophils/100 WBC (Bld) 78.9 % High 50.0-75.0 [facility] Comment on above: Performed By: #### M DW, MG, GFR, BMP, CBC, ANEU, TROPHS, ADIFF #### [address] [address] .GFRon 05-13-2024 GFR 70 ml/min/1.73sqm [facility] Comment on above: Result Comment: GFR Population mean for , Non- Americans Ages 20-29 = 116 mL/min/1.73 sq.m. Ages 30-39 = 107 mL/min/1.73 sq.m. Ages 40-49 = 99 mL/min/1.73 sq.m. Ages 50-59 = 93 mL/min/1.73 sq.m. Ages 60-69 = 85 mL/min/1.73 sq.m. Ages 70+ = 75 mL/min/1.73 sq.m. Chronic Kidney Disease: Less than 60 mL/min/1.73 square meters End Stage Renal Disease: Less than 15 mL/min/1.73 square meters Performed By: #### M DW, MG, GFR, BMP, CBC, ANEU, TROPHS, ADIFF #### [address] [address] GFR Non- 58 ml/min/1.73sqm [facility] Comment on above: Result Comment: GFR Population mean for , Non- Americans Ages 20-29 = 116 mL/min/1.73 sq.m. Ages 30-39 = 107 mL/min/1.73 sq.m. Ages 40-49 = 99 mL/min/1.73 sq.m. Ages 50-59 = 93 mL/min/1.73 sq.m. Ages 60-69 = 85 mL/min/1.73 sq.m. Ages 70+ = 75 mL/min/1.73 sq.m. Chronic Kidney Disease: Less than 60 mL/min/1.73 square meters End Stage Renal Disease: Less than 15 mL/min/1.73 square meters Performed By: #### M DW, MG, GFR, BMP, CBC, ANEU, TROPHS, ADIFF #### [address] [address] .MDWon 05-13-2024 Monocyte Distribution Width 18.21 Normal 0.00-20.00 [facility] Comment on above: Result Comment: For ED adult patients suspected of sepsis, MDW<=20.0 does not rule out sepsis or risk of sepsis Performed By: #### M DW, MG, GFR, BMP, CBC, ANEU, TROPHS, ADIFF #### [address] [address] .NEUABSon 05-13-2024 Neutrophil, Absolute 8.3 10 3/mcL High 2.3-8.1 [facility] Comment on above: Performed By: #### M DW, MG, GFR, BMP, CBC, ANEU, TROPHS, ADIFF #### [address] [address] APTTon 05-13-2024 aPTT Coag (Bld) [Time] 43.1 s High 25.0-35.0 [facility] Comment on above: Result Comment: For Heparin anticoagulation therapy, the recommended therapeutic range is: 54-77 seconds (APTT Correlation with Anti-Xa therapeutic range of 0.3-0.7 units/ml). PLEASE REFERENCE THE PHARMACY PROTOCOL FOR DOSING. Performed By: #### G FR, BMP #### [facility] [address] [place] [id number] aPTT Coag (Bld) [Time] 32.5 s Normal 25.0-35.0 [facility] Comment on above: Result Comment: For Heparin anticoagulation therapy, the recommended therapeutic range is: 45.4-75.9 seconds. Patients on heparin therapy may have an extreme result. Performed By: #### M DW, MG, GFR, BMP, CBC, ANEU, TROPHS, ADIFF #### [address] [address] CBCon 05-13-2024 Erythrocyte distribution width (RBC) [Ratio] 13.9 % Normal 11.5-15.5 [facility] Comment on above: Performed By: #### M DW, MG, GFR, BMP, CBC, ANEU, TROPHS, ADIFF #### [place] [address] Hematocrit (Bld) [Volume fraction] 42.2 % Normal 34.0-46.0 [facility] Comment on above: Performed By: #### M DW, MG, GFR, BMP, CBC, ANEU, TROPHS, ADIFF #### [place] [address] Hgb 14.5 G/dL Normal 12.0-16.0 [facility] Comment on above: Performed By: #### M DW, MG, GFR, BMP, CBC, ANEU, TROPHS, ADIFF #### [place] [address] MCH (RBC) [Entitic mass] 30.2 pg Normal 27.0-33.0 [facility] Comment on above: Performed By: #### M DW, MG, GFR, BMP, CBC, ANEU, TROPHS, ADIFF #### [place] [address] MCHC 34.3 G/dL Normal 32.0-36.0 [facility] Comment on above: Performed By: #### M DW, MG, GFR, BMP, CBC, ANEU, TROPHS, ADIFF #### [place] [address] MCV (RBC) [Entitic vol] 88.1 fL Normal 80.0-99.0 [facility] Comment on above: Performed By: #### M DW, MG, GFR, BMP, CBC, ANEU, TROPHS, ADIFF #### [address] [address] Platelet 306 10 3/mcL Normal 150-450 [facility] Comment on above: Performed By: #### M DW, MG, GFR, BMP, CBC, ANEU, TROPHS, ADIFF #### [address] [address] Platelet mean volume (Bld) [Entitic vol] 7.8 fL Normal 6.6-10.5 [facility] Comment on above: Performed By: #### M DW, MG, GFR, BMP, CBC, ANEU, TROPHS, ADIFF #### [address] [address] RBC 4.79 10 6/mcL Normal 4.10-5.30 [facility] Comment on above: Performed By: #### M DW, MG, GFR, BMP, CBC, ANEU, TROPHS, ADIFF #### [address] [address] WBC 10.5 10 3/mcL Normal 4.5-10.8 [facility] Comment on above: Performed By: #### M DW, MG, GFR, BMP, CBC, ANEU, TROPHS, ADIFF #### [address] [address] CMPon 05-13-2024 Albumin Level 3.6 G/dL Normal 3.4-4.8 [facility] Comment on above: Performed By: #### M DW, MG, GFR, BMP, CBC, ANEU, TROPHS, ADIFF #### [address] [address] Albumin/Globulin [Mass ratio] 1.4 {ratio} Normal 1.1-2.5 [facility] Comment on above: Performed By: #### M DW, MG, GFR, BMP, CBC, ANEU, TROPHS, ADIFF #### [address] [address] ALP [Catalytic activity/Vol] 114 U/L Normal 40-135 [facility] Comment on above: Performed By: #### M DW, MG, GFR, BMP, CBC, ANEU, TROPHS, ADIFF #### [address] [address] ALT [Catalytic activity/Vol] 41 U/L Normal 14-59 [facility] Comment on above: Performed By: #### M DW, MG, GFR, BMP, CBC, ANEU, TROPHS, ADIFF #### [address] [address] AST [Catalytic activity/Vol] 20 U/L Normal 10-40 [facility] Comment on above: Performed By: #### M DW, MG, GFR, BMP, CBC, ANEU, TROPHS, ADIFF #### [address] [address] Bili Total 0.5 mg/dL Normal 0.2-1.0 [facility] Comment on above: Result Comment: Use of this assay is not recommended for patients undergoing treatment with eltrombopag due to the potential for falsely elevated results. Performed By: #### M DW, MG, GFR, BMP, CBC, ANEU, TROPHS, ADIFF #### [address] [address] BUN/Creatinine Ratio 18 ratio Normal 7-27 [facility] Comment on above: Performed By: #### M DW, MG, GFR, BMP, CBC, ANEU, TROPHS, ADIFF #### [address] [address] Calcium [Mass/Vol] 9.4 mg/dL Normal 8.4-10.2 [facility] Comment on above: Performed By: #### M DW, MG, GFR, BMP, CBC, ANEU, TROPHS, ADIFF #### [address] [address] Chloride [Moles/Vol] 98 mmol/L Normal 98-107 [facility] Comment on above: Performed By: #### M DW, MG, GFR, BMP, CBC, ANEU, TROPHS, ADIFF #### [address] [address] CO2 [Moles/Vol] 29 mmol/L Normal 23-31 [facility] Comment on above: Performed By: #### M DW, MG, GFR, BMP, CBC, ANEU, TROPHS, ADIFF #### [address] [address] Creatinine [Mass/Vol] 0.93 mg/dL Normal 0.55-1.[address] [facility] Comment on above: Result Comment: Test ing performed on [email or web address] Dimension EXL analyzer using a modified kinetic Josse technique. Performed By: #### M DW, MG, GFR, BMP, CBC, ANEU, TROPHS, ADIFF #### [place] [address] Electrolyte Balance 5.0 mEq/L Normal 4.0-15.0 [facility] Comment on above: Performed By: #### M DW, MG, GFR, BMP, CBC, ANEU, TROPHS, ADIFF #### [place] [address] Globulin 2.6 G/dL Normal [facility] Comment on above: Performed By: #### M DW, MG, GFR, BMP, CBC, ANEU, TROPHS, ADIFF #### [place] [address] Glucose [Mass/Vol] 139 mg/dL High 83-110 [facility] Comment on above: Performed By: #### M DW, MG, GFR, BMP, CBC, ANEU, TROPHS, ADIFF #### [place] [address] Potassium [Moles/Vol] 3.9 mmol/L Normal 3.5-5.[address] [facility] Comment on above: Performed By: #### M DW, MG, GFR, BMP, CBC, ANEU, TROPHS, ADIFF #### [place] [address] Sodium [Moles/Vol] 132 mmol/L Low 136-145 [facility] Comment on above: Performed By: #### M DW, MG, GFR, BMP, CBC, ANEU, TROPHS, ADIFF #### [place] [address] [place], [place] [address] Total Protein 6.2 G/dL Low 6.4-8.2 [facility] Comment on above: Performed By: #### M DW, MG, GFR, BMP, CBC, ANEU, TROPHS, ADIFF #### [place] [address] [place], [place] [address] Urea nitrogen [Mass/Vol] 17 mg/dL Normal 7-18 [facility] Comment on above: Performed By: #### M DW, MG, GFR, BMP, CBC, ANEU, TROPHS, ADIFF #### [place] [address] [place], [place] [address] LABORATORYOrdered By: SYSTEM SYSTEM on 05-13-2024 aPTT Coag (PPP) [Time] 32.5 s Normal 25.0 - 35.0 seconds AO [employer] SS Comment on above: Interpretive Data: F or Heparin anticoagulation therapy, the recommended therapeutic range is: 45.4-75.9 seconds. Patients on heparin therapy may have an extreme result. INR Coag (PPP) [Relative time] 1.0 {INR} Invalid Interpretation Code AO [employer] SS Comment on above: Interpretive Data: Jatinder samano [employer] (CHEST, 1992, [id number]) recommended therapeutic range for oral anticoagulant therapy is: LOW RISK: Prophylaxis of venous thrombosis INR: 2.0-3.0 Treatment of pulmonary embolism 2.0-3.0 Prevention of systemic embolism 2.0-3.0 HIGH RISK: Mechanical prosthetic valves 2.5-3.5 PT Coag (PPP) [Time] 11.3 s Normal 9.0 - 1 4.4 seconds AO [employer] SS Albumin BCP dye [Mass/Vol] 3.6 G/dL Normal 3.4 - 4.8 G/dL AO ADM SS Albumin/Globulin [Mass ratio] 1.4 {ratio} Normal 1.1 - 2.5 ratio AO ADM SS ALP [Catalytic activity/Vol] 114 U/L Normal 40 - 135 U/L AO ADM SS ALT With P-5'-P [Catalytic activity/Vol] 41 U/L Normal 14 - 59 U/L AO ADM SS AST With P-5'-P [Catalytic activity/Vol] 20 U/L Normal 10 - 40 U/L AO ADM SS Basophils (Bld) [#/Vol] 0.1 103/mcL Normal 0.0 - 0.2 10^3/mcL AO Workflow SS Basophils/100 WBC (Bld) 1.2 % Normal 0.0 - 2.5 % AO Workflow SS Bilirubin [Mass/Vol] 0.5 mg/dL Normal 0.2 - 1 .0 mg/dL AO ADM SS Comment on above: Interpretive Data: U se of this assay is not recommended for patients undergoing treatment with eltrombopag due to the potential for falsely elevated results. Calcium [Mass/Vol] 9.4 mg/dL Normal 8.4 - 10. 2 mg/dL AO ADM SS Chloride [Moles/Vol] 98 mmol/L Normal 98 - 10 7 mmol/L AO ADM SS CO2 [Moles/Vol] 29 mmol/L Normal 23 - 31 mmol/L AO ADM SS Creatinine [Mass/Vol] 0.93 mg/dL Normal 0.55 - 1.02 mg/dL AO ADM SS Comment on above: Interpretive Data: T esting performed on [employer] Dimension EXL analyzer using a modified kinetic Josse technique. Electrolyte Balance 5.0 mEq/L Normal 4.0 - 15 .0 mEq/L AO ADM SS Eosinophil, Absolute 0.2 103/mcL Normal 0.0 - 0 .7 10^3/mcL AO Workflow SS Eosinophils/100 WBC (Bld) 2.3 % Normal 0.0 - 7.0 % AO Workflow SS Erythrocyte distribution width (RBC) [Ratio] 13.9 % Normal 11.5 - 15.5 % AO Workflow SS GFR/1.73 sq M.predicted among blacks MDRD (S/P/Bld) [Vol rate/Area] 70 ml/min/1.73sqm Invalid Interpretation Code AO Chemistry S Comment on above: Interpretive Data: GFR Population mean for , Non- Americans Ages 20-29 = 116 mL/min/1.73 sq.m. Ages 30-39 = 107 mL/min/1.73 sq.m. Ages 40-49 = 99 mL/min/1.73 sq.m. Ages 50-59 = 93 mL/min/1.73 sq.m. Ages 60-69 = 85 mL/min/1.73 sq.m. Ages 70+ = 75 mL/min/1.73 sq.m. Chronic Kidney Disease: Less than 60 mL/min/1.73 square meters End Stage Renal Disease: Less than 15 mL/min/1.73 square meters GFR/1.73 sq M.predicted among non-blacks MDRD (S/P/Bld) [Vol rate/Area] 58 ml/min/1.73sqm Invalid Interpretation Code AO Chemistry S Comment on above: Interpretive Data: GFR Population mean for , Non- Americans Ages 20-29 = 116 mL/min/1.73 sq.m. Ages 30-39 = 107 mL/min/1.73 sq.m. Ages 40-49 = 99 mL/min/1.73 sq.m. Ages 50-59 = 93 mL/min/1.73 sq.m. Ages 60-69 = 85 mL/min/1.73 sq.m. Ages 70+ = 75 mL/min/1.73 sq.m. Chronic Kidney Disease: Less than 60 mL/min/1.73 square meters End Stage Renal Disease: Less than 15 mL/min/1.73 square meters Globulin 2.6 G/dL Invalid Interpretation Code AO ADM SS Glucose [Mass/Vol] 139 mg/dL High 83 - 110 mg/dL AO ADM SS Hematocrit (Bld) [Volume fraction] 42.2 % Normal 34.0 - 46.0 % AO Workflow SS Hemoglobin (Bld) [Mass/Vol] 14.5 G/dL Normal 12.0 - 16.0 G/dL AO Workflow SS Lymphocytes (Bld) [#/Vol] 1.0 103/mcL Normal 0.9 - 4.3 10^3/mcL AO Workflow SS Lymphocytes/100 WBC (Bld) 9.5 % Low 20.0 - 40.0 % AO Workflow SS MCH (RBC) [Entitic mass] 30.2 pg Normal 27.0 - 33.0 pg AO Workflow SS MCHC 34.3 G/dL Normal 32.0 - 36.0 G/dL AO Workflow SS MCV (RBC) [Entitic vol] 88.1 fL Normal 80.0 - 99.0 fL AO Workflow SS Monocyte distribution width Auto (Bld) [Entitic vol] 18.21 1 Normal 0.00 - 20.00 AO Workflow SS Comment on above: Result Comment: For ED adult patients suspected of sepsis, MDW<=20.0 does not rule out sepsis or risk of sepsis Monocytes (Bld) [#/Vol] 0.8 103/mcL Normal 0.1 - 1.4 10^3/mcL AO Workflow SS Monocytes/100 WBC (Bld) 8.1 % Normal 2.0 - 13.0 % AO Workflow SS Natriuretic peptide.B prohormone N-Terminal [Mass/Vol] 8110[address] pg/mL High 0 - 450 pg/mL AO ADM SS Comment on above: Interpretive Data: N T-proBNP results of less than 300 pg/mL effectively rules out acute congestive heart failure with 99% negative predictive value. Neutrophils (Bld) [#/Vol] 8.3 103/mcL High 2.3 - 8.1 10^3/mcL AO Workflow SS Neutrophils/100 WBC (Bld) 78.9 % High 50.0 - 75.0 % AO Workflow SS Platelet mean volume (Bld) [Entitic vol] 7.8 fL Normal 6.6 - 10.5 fL AO Workflow SS Platelets (Bld) [#/Vol] 306 103/mcL Normal 150 - 450 10^3/mcL AO Workflow SS Potassium [Moles/Vol] 3.9 mmol/L Normal 3.5 - 5.1 mmol/L AO ADM SS Protein [Mass/Vol] 6.2 G/dL Low 6.4 - 8.2 G/dL AO ADM SS RBC (Bld) [#/Vol] 4.79 106/mcL Normal 4.10 - 5.3 0 10^6/mcL AO Workflow SS Sodium [Moles/Vol] 132 mmol/L Low 136 - 145 mmol/L AO ADM SS Troponin I.cardiac DL <= 0.01 ng/mL [Mass/Vol] 207 ng/L High 0 - 51 ng/L AO ADM SS Comment on above: Interpretive Data: H igh Sensitive Troponin I Reference Ranges: Female: 0-51 ng/L Male: 0-76 ng/L Testing performed on [employer] using a homogeneous sandwich chemiluminescent immunoassay based on [employer] technology. Urea nitrogen [Mass/Vol] 17 mg/dL Normal 7 - 18 mg/dL AO ADM SS Urea nitrogen/Creatinine [Mass ratio] 18 ratio Normal 7 - 27 ratio AO ADM SS WBC (Bld) [#/Vol] 10.5 103/mcL Normal 4.5 - 10.8 10^3/mcL AO Workflow SS PBNPon 05-13-2024 Natriuretic peptide B (Bld) [Mass/Vol] [address] pg/mL High 0-450 [facility] Comment on above: Result Comment: NT-p roBNP results of less than 300 pg/mL effectively rules out acute congestive heart failure with 99% negative predictive value. Performed By: #### M DW, MG, GFR, BMP, CBC, ANEU, TROPHS, ADIFF #### [address] [address] PROon 05-13-2024 PT Coag (PPP) [Time] 11.3 s Normal 9.0-14.4 [facility] Comment on above: Performed By: #### M DW, MG, GFR, BMP, CBC, ANEU, TROPHS, ADIFF #### [address] [address] PT International Ratio 1.0 Normal [facility] Comment on above: Result Comment: [employer] [employer] (CHEST, 1992, 102:312S-25S) recommended therapeutic range for oral anticoagulant therapy is: LOW RISK: Prophylaxis of venous thrombosis INR: 2.0-3.0 Treatment of pulmonary embolism 2.0-3.0 Prevention of systemic embolism 2.0-3.0 HIGH RISK: Mechanical prosthetic valves 2.5-3.5 Performed By: #### M DW, MG, GFR, BMP, CBC, ANEU, TROPHS, ADIFF #### [address] [address] TROPHSon 05-13-2024 High Sensitivity Troponin I 207 ng/L High 0-51 [facility] Comment on above: Result Comment: High Sensitive Troponin I Reference Ranges: Female: 0-51 ng/L Male: 0-76 ng/L Testing performed on [employer] using a homogeneous sandwich chemiluminescent immunoassay based on Singu[employer] technology. Performed By: #### M DW, MG, GFR, BMP, CBC, ANEU, TROPHS, ADIFF #### [address] [address] XR CHEST 1 VIEWon 05-13-2024 XR CHEST 1 VIEW ORIGINAL EXAMINATION: ONE XRAY VIEW OF THE CHEST05/13/2024 1:25 pm COMPARISON: CT chest 10/21/2021 HISTORY: ORDERING SYSTEM PROVIDED HISTORY: Reason for Exam: SOB/cough/fever FINDINGS: Cardiomediastinal contours mildly enlarged with atherosclerosis present.. Atherosclerosis of the aorta. Small bilateral pleural effusions are present with adjacent bibasilar airspace opacities. Bilateral interstitial prominence is present. No visible pneumothorax. No acute osseous abnormality. Degenerative changes of the visualized osseous structures. Right upper quadrant surgical clips are noted. IMPRESSION: Findings suspicious for cardiogenic pulmonary edema with small left greater than right pleural effusions, and interstitial pulmonary edema. Bibasilar hazy airspace opacities could represent alveolar edema versus superimposed infectious process. Recommend follow-up to resolution. I have reviewed the resident's preliminary report and agree with findings and impression. Interpreted by: Elly Wang Preliminary Report By: Tin Linder Electronically signed By Elly Wang Dictated Date: 05/13/2024 1:32:15 PM Prelim Date: 05/13/2024 1:35:52 PM Sign Date: 05/13/2024 1:39:17 PM Ordering Provider: TERRIE SIMS [facility] .GFRon 04-13-2024 GFR Non- 54 ml/min/1.73sqm [facility] Comment on above: Result Comment: GFR Population mean for , Non- Americans Ages 20-29 = 116 mL/min/1.73 sq.m. Ages 30-39 = 107 mL/min/1.73 sq.m. Ages 40-49 = 99 mL/min/1.73 sq.m. Ages 50-59 = 93 mL/min/1.73 sq.m. Ages 60-69 = 85 mL/min/1.73 sq.m. Ages 70+ = 75 mL/min/1.73 sq.m. Chronic Kidney Disease: Less than 60 mL/min/1.73 square meters End Stage Renal Disease: Less than 15 mL/min/1.73 square meters Performed By: #### M DW, MG, GFR, BMP, CBC, ANEU, TROPHS, ADIFF #### [address] [address] GFR 66 ml/min/1.73sqm Normal [facility] Comment on above: Result Comment: GFR Population mean for , Non- Americans Ages 20-29 = 116 mL/min/1.73 sq.m. Ages 30-39 = 107 mL/min/1.73 sq.m. Ages 40-49 = 99 mL/min/1.73 sq.m. Ages 50-59 = 93 mL/min/1.73 sq.m. Ages 60-69 = 85 mL/min/1.73 sq.m. Ages 70+ = 75 mL/min/1.73 sq.m. Chronic Kidney Disease: Less than 60 mL/min/1.73 square meters End Stage Renal Disease: Less than 15 mL/min/1.73 square meters Performed By: #### M DW, MG, GFR, BMP, CBC, ANEU, TROPHS, ADIFF #### [address] [address] BMPon 04-13-2024 BUN/Creatinine Ratio 18 ratio Normal 7-27 [facility] Comment on above: Performed By: #### M DW, MG, GFR, BMP, CBC, ANEU, TROPHS, ADIFF #### [address] [address] Calcium [Mass/Vol] 10.3 mg/dL High 8.4-10.2 [facility] Comment on above: Performed By: #### M DW, MG, GFR, BMP, CBC, ANEU, TROPHS, ADIFF #### [address] [address] Chloride [Moles/Vol] 89 mmol/L Low 98-107 [facility] Comment on above: Performed By: #### M DW, MG, GFR, BMP, CBC, ANEU, TROPHS, ADIFF #### [address] [address] CO2 [Moles/Vol] 34 mmol/L High 23-31 [facility] Comment on above: Performed By: #### M DW, MG, GFR, BMP, CBC, ANEU, TROPHS, ADIFF #### [address] [address] Creatinine [Mass/Vol] 0.98 mg/dL Normal 0.55-1.[address] [facility] Comment on above: Result Comment: Test ing performed on Siemens Dimension EXL analyzer using a modified kinetic Josse technique. Performed By: #### M DW, MG, GFR, BMP, CBC, ANEU, TROPHS, ADIFF #### [address] [address] Electrolyte Balance 6.0 mEq/L Normal 4.0-15.0 [facility] Comment on above: Performed By: #### M DW, MG, GFR, BMP, CBC, ANEU, TROPHS, ADIFF #### [address] [address] Glucose [Mass/Vol] 106 mg/dL Normal 83-110 [facility] Comment on above: Performed By: #### M DW, MG, GFR, BMP, CBC, ANEU, TROPHS, ADIFF #### [address] [address] Potassium [Moles/Vol] 4.6 mmol/L Normal 3.5-5.[address] [facility] Comment on above: Performed By: #### M DW, MG, GFR, BMP, CBC, ANEU, TROPHS, ADIFF #### [address] [address] Sodium [Moles/Vol] 129 mmol/L Low 136-145 [facility] Comment on above: Performed By: #### M DW, MG, GFR, BMP, CBC, ANEU, TROPHS, ADIFF #### [address] [address] Urea nitrogen [Mass/Vol] 18 mg/dL Normal 7-18 [facility] Comment on above: Performed By: #### M DW, MG, GFR, BMP, CBC, ANEU, TROPHS, ADIFF #### [address] [address] LABORATORYOrdered By: SYSTEM SYSTEM on 04-13-2024 Calcium [Mass/Vol] 10.3 mg/dL High 8.4 - 10. 2 mg/dL AO ADM SS Chloride [Moles/Vol] 89 mmol/L Low 98 - 10 7 mmol/L AO ADM SS CO2 [Moles/Vol] 34 mmol/L High 23 - 31 mmol/L AO ADM SS Creatinine [Mass/Vol] 0.98 mg/dL Normal 0.55 - 1.02 mg/dL AO ADM SS Comment on above: Interpretive Data: T esting performed on Siemens Dimension EXL analyzer using a modified kinetic Josse technique. Electrolyte Balance 6.0 mEq/L Normal 4.0 - 15 .0 mEq/L AO ADM SS GFR/1.73 sq M.predicted among blacks MDRD (S/P/Bld) [Vol rate/Area] 66 ml/min/1.73sqm Invalid Interpretation Code AO Chemistry S Comment on above: Interpretive Data: GFR Population mean for , Non- Americans Ages 20-29 = 116 mL/min/1.73 sq.m. Ages 30-39 = 107 mL/min/1.73 sq.m. Ages 40-49 = 99 mL/min/1.73 sq.m. Ages 50-59 = 93 mL/min/1.73 sq.m. Ages 60-69 = 85 mL/min/1.73 sq.m. Ages 70+ = 75 mL/min/1.73 sq.m. Chronic Kidney Disease: Less than 60 mL/min/1.73 square meters End Stage Renal Disease: Less than 15 mL/min/1.73 square meters GFR/1.73 sq M.predicted among non-blacks MDRD (S/P/Bld) [Vol rate/Area] 54 ml/min/1.73sqm Invalid Interpretation Code AO Chemistry S Comment on above: Interpretive Data: GFR Population mean for , Non- Americans Ages 20-29 = 116 mL/min/1.73 sq.m. Ages 30-39 = 107 mL/min/1.73 sq.m. Ages 40-49 = 99 mL/min/1.73 sq.m. Ages 50-59 = 93 mL/min/1.73 sq.m. Ages 60-69 = 85 mL/min/1.73 sq.m. Ages 70+ = 75 mL/min/1.73 sq.m. Chronic Kidney Disease: Less than 60 mL/min/1.73 square meters End Stage Renal Disease: Less than 15 mL/min/1.73 square meters Glucose [Mass/Vol] 106 mg/dL Normal 83 - 110 mg/dL AO ADM SS Potassium [Moles/Vol] 4.6 mmol/L Normal 3.5 - 5.1 mmol/L AO ADM SS Sodium [Moles/Vol] 129 mmol/L Low 136 - 145 mmol/L AO ADM SS Urea nitrogen [Mass/Vol] 18 mg/dL Normal 7 - 18 mg/dL AO ADM SS Urea nitrogen/Creatinine [Mass ratio] 18 ratio Normal 7 - 27 ratio AO ADM SS .GFRon 03-12-2024 GFR 74 ml/min/1.73sqm Normal [facility] Comment on above: Result Comment: GFR Population mean for , Non- Americans Ages 20-29 = 116 mL/min/1.73 sq.m. Ages 30-39 = 107 mL/min/1.73 sq.m. Ages 40-49 = 99 mL/min/1.73 sq.m. Ages 50-59 = 93 mL/min/1.73 sq.m. Ages 60-69 = 85 mL/min/1.73 sq.m. Ages 70+ = 75 mL/min/1.73 sq.m. Chronic Kidney Disease: Less than 60 mL/min/1.73 square meters End Stage Renal Disease: Less than 15 mL/min/1.73 square meters Performed By: #### M DW, MG, GFR, BMP, CBC, ANEU, TROPHS, ADIFF #### [address] [address] GFR Non- 61 ml/min/1.73sqm Normal [facility] Comment on above: Result Comment: GFR Population mean for , Non- Americans Ages 20-29 = 116 mL/min/1.73 sq.m. Ages 30-39 = 107 mL/min/1.73 sq.m. Ages 40-49 = 99 mL/min/1.73 sq.m. Ages 50-59 = 93 mL/min/1.73 sq.m. Ages 60-69 = 85 mL/min/1.73 sq.m. Ages 70+ = 75 mL/min/1.73 sq.m. Chronic Kidney Disease: Less than 60 mL/min/1.73 square meters End Stage Renal Disease: Less than 15 mL/min/1.73 square meters Performed By: #### M DW, MG, GFR, BMP, CBC, ANEU, TROPHS, ADIFF #### [id number] [place], [place] [address] BD BONE DENSITY DEXA AXIAL S Ignacio 03-12-2024 BD BONE DENSITY DEXA AXIAL SKELETON ORIGINAL EXAMINATION: BONE DENSITOMETRY 03/12/2024 10:45 am TECHNIQUE: A bone density dual x-ray absorptiometry (DEXA) scan was performed of the axial (e.g. hips, spine) and/or appendicular (e.g. radius) skeleton as appropriate. COMPARISON: 04/17/2021 HISTORY: ORDERING SYSTEM PROVIDED HISTORY: Reason for Exam: Osteoporosis Screening FINDINGS: T Score Left Femoral Neck: -3.0 Left Femoral Neck: 0.515 (g/cm2) T Score Left Hip: -2.8 Left Hip: 0.599 (g/cm2) T Score Lumbar Spine: -0.9 Lumbar Spine: 0.944 (g/cmd2) BMD Change from previous Hip: -5.1% BMD Change from previous Lumbar Spine: 12.1% IMPRESSION: Osteoporosis by WHO criteria. World Health Organization criteria: (Comparing with young normal sex matched population) - Normal: T-score at or above -1 SD (standard deviation) - Osteopenia: T-score between -1 and -2.5 SD - Osteoporosis: T-score at or below -2.5 SD The NOF recommends that FDA-approved medical therapies be considered in post-menopausal women and men age >/= 50 years with a: * Hip or vertebral fracture, or * T-score of /= 20% for major osteoporotic fractures or * >/= 3% for hip fractures All treatment decisions require clinical judgement and consideration of individual patient factors, including patient preferences, comorbidities, previous drug use, risk factors not captured in the FRAX registered model (e.g., frailty, falls, vitamin D deficiency, increased bone turnover, interval significant decline in bone density) and possible under- or over-estimation of fracture risk by FRAX. Interpreted by: Lauren Yang DO Preliminary Report By: Lauren Yang DO Electronically signed By Lauren Yang DO Dictated Date: 03/12/2024 12:06:14 PM Prelim Date: 03/12/2024 12:06:57 PM Sign Date: 03/12/2024 12:06:57 PM Ordering Provider: EMILIANO Mercado [facility] CMPon 03-12-2024 Albumin Level 4.0 G/dL Normal 3.4-4.8 [facility] Comment on above: Performed By: #### M DW, MG, GFR, BMP, CBC, ANEU, TROPHS, ADIFF #### [address] [address] Albumin/Globulin [Mass ratio] 1.5 {ratio} Normal 1.1-2.5 [facility] Comment on above: Performed By: #### M DW, MG, GFR, BMP, CBC, ANEU, TROPHS, ADIFF #### [address] [address] ALP [Catalytic activity/Vol] 133 U/L Normal 40-135 [facility] Comment on above: Performed By: #### M DW, MG, GFR, BMP, CBC, ANEU, TROPHS, ADIFF #### [address] [address] ALT [Catalytic activity/Vol] 14 U/L Normal 14-59 [facility] Comment on above: Performed By: #### M DW, MG, GFR, BMP, CBC, ANEU, TROPHS, ADIFF #### [address] [address] AST [Catalytic activity/Vol] 11 U/L Normal 10-40 [facility] Comment on above: Performed By: #### M DW, MG, GFR, BMP, CBC, ANEU, TROPHS, ADIFF #### [address] [address] Bili Total 0.4 mg/dL Normal 0.2-1.0 [facility] Comment on above: Result Comment: Use of this assay is not recommended for patients undergoing treatment with eltrombopag due to the potential for falsely elevated results. Performed By: #### M DW, MG, GFR, BMP, CBC, ANEU, TROPHS, ADIFF #### [address] [address] BUN/Creatinine Ratio 16 ratio Normal 7-27 [facility] Comment on above: Performed By: #### M DW, MG, GFR, BMP, CBC, ANEU, TROPHS, ADIFF #### [address] [address] Calcium [Mass/Vol] 10.4 mg/dL High 8.4-10.2 [facility] Comment on above: Performed By: #### M DW, MG, GFR, BMP, CBC, ANEU, TROPHS, ADIFF #### [address] [address] Chloride [Moles/Vol] 94 mmol/L Low 98-107 [facility] Comment on above: Performed By: #### M DW, MG, GFR, BMP, CBC, ANEU, TROPHS, ADIFF #### [address] [address] CO2 [Moles/Vol] 31 mmol/L Normal 23-31 [facility] Comment on above: Performed By: #### M DW, MG, GFR, BMP, CBC, ANEU, TROPHS, ADIFF #### [address] [address] Creatinine [Mass/Vol] 0.89 mg/dL Normal 0.55-1.[address] [facility] Comment on above: Result Comment: Test ing performed on Siemens Dimension EXL analyzer using a modified kinetic Josse technique. Performed By: #### M DW, MG, GFR, BMP, CBC, ANEU, TROPHS, ADIFF #### [address] [address] Electrolyte Balance 7.0 mEq/L Normal 4.0-15.0 [facility] Comment on above: Performed By: #### M DW, MG, GFR, BMP, CBC, ANEU, TROPHS, ADIFF #### [address] [address] Globulin 2.6 G/dL Normal [facility] Comment on above: Performed By: #### M DW, MG, GFR, BMP, CBC, ANEU, TROPHS, ADIFF #### [address] [address] Glucose [Mass/Vol] 92 mg/dL Normal 83-110 [facility] Comment on above: Performed By: #### M DW, MG, GFR, BMP, CBC, ANEU, TROPHS, ADIFF #### [address] [address] Potassium [Moles/Vol] 4.4 mmol/L Normal 3.5-5.[address] [facility] Comment on above: Performed By: #### M DW, MG, GFR, BMP, CBC, ANEU, TROPHS, ADIFF #### [address] [address] Sodium [Moles/Vol] 132 mmol/L Low 136-145 [facility] Comment on above: Performed By: #### M DW, MG, GFR, BMP, CBC, ANEU, TROPHS, ADIFF #### [address] [address] Total Protein 6.6 G/dL Normal 6.4-8.2 [facility] Comment on above: Performed By: #### M DW, MG, GFR, BMP, CBC, ANEU, TROPHS, ADIFF #### [address] [address] Urea nitrogen [Mass/Vol] 14 mg/dL Normal 7-18 [facility] Comment on above: Performed By: #### M DW, MG, GFR, BMP, CBC, ANEU, TROPHS, ADIFF #### [address] [address] LABORATORYOrdered By: Jermaine Sellers on 03-12-2024 Albumin DL <= 20 mg/L (U) [Mass/Vol] [address] mcg/dL Invalid Interpretation Code AO ADM SS Albumin/Creatinine DL <= 20 mg/L (U) [Mass ratio] Unable to calc Invalid Interpretation Code 0 - 30 AO Chemistry S Creatinine (U) [Mass/Vol] mg/dL Low 28.0 - 117.0 mg/dL AO ADM SS LABORATORYOrdered By: SYSTEM SYSTEM on 03-12-2024 Albumin BCP dye [Mass/Vol] 4.0 G/dL Normal 3.4 - 4.8 G/dL AO ADM SS Albumin/Globulin [Mass ratio] 1.5 {ratio} Normal 1.1 - 2.5 ratio AO ADM SS ALP [Catalytic activity/Vol] 133 U/L Normal 40 - 135 U/L AO ADM SS ALT With P-5'-P [Catalytic activity/Vol] 14 U/L Normal 14 - 59 U/L AO ADM SS AST With P-5'-P [Catalytic activity/Vol] 11 U/L Normal 10 - 40 U/L AO ADM SS Bilirubin [Mass/Vol] 0.4 mg/dL Normal 0.2 - 1 .0 mg/dL AO ADM SS Comment on above: Interpretive Data: U se of this assay is not recommended for patients undergoing treatment with eltrombopag due to the potential for falsely elevated results. Calcium [Mass/Vol] 10.4 mg/dL High 8.4 - 10. 2 mg/dL AO ADM SS Chloride [Moles/Vol] 94 mmol/L Low 98 - 10 7 mmol/L AO ADM SS CO2 [Moles/Vol] 31 mmol/L Normal 23 - 31 mmol/L AO ADM SS Creatinine [Mass/Vol] 0.89 mg/dL Normal 0.55 - 1.02 mg/dL AO ADM SS Comment on above: Interpretive Data: T esting performed on Siemens Dimension EXL analyzer using a modified kinetic Josse technique. Electrolyte Balance 7.0 mEq/L Normal 4.0 - 15 .0 mEq/L AO ADM SS GFR/1.73 sq M.predicted among blacks MDRD (S/P/Bld) [Vol rate/Area] 74 ml/min/1.73sqm Invalid Interpretation Code AO Chemistry S Comment on above: Interpretive Data: GFR Population mean for , Non- Americans Ages 20-29 = 116 mL/min/1.73 sq.m. Ages 30-39 = 107 mL/min/1.73 sq.m. Ages 40-49 = 99 mL/min/1.73 sq.m. Ages 50-59 = 93 mL/min/1.73 sq.m. Ages 60-69 = 85 mL/min/1.73 sq.m. Ages 70+ = 75 mL/min/1.73 sq.m. Chronic Kidney Disease: Less than 60 mL/min/1.73 square meters End Stage Renal Disease: Less than 15 mL/min/1.73 square meters GFR/1.73 sq M.predicted among non-blacks MDRD (S/P/Bld) [Vol rate/Area] 61 ml/min/1.73sqm Invalid Interpretation Code AO Chemistry S Comment on above: Interpretive Data: GFR Population mean for , Non- Americans Ages 20-29 = 116 mL/min/1.73 sq.m. Ages 30-39 = 107 mL/min/1.73 sq.m. Ages 40-49 = 99 mL/min/1.73 sq.m. Ages 50-59 = 93 mL/min/1.73 sq.m. Ages 60-69 = 85 mL/min/1.73 sq.m. Ages 70+ = 75 mL/min/1.73 sq.m. Chronic Kidney Disease: Less than 60 mL/min/1.73 square meters End Stage Renal Disease: Less than 15 mL/min/1.73 square meters Globulin 2.6 G/dL Invalid Interpretation Code AO ADM SS Glucose [Mass/Vol] 92 mg/dL Normal 83 - 110 mg/dL AO ADM SS Potassium [Moles/Vol] 4.4 mmol/L Normal 3.5 - 5.1 mmol/L AO ADM SS Protein [Mass/Vol] 6.6 G/dL Normal 6.4 - 8.2 G/dL AO ADM SS Sodium [Moles/Vol] 132 mmol/L Low 136 - 145 mmol/L AO ADM SS Urea nitrogen [Mass/Vol] 14 mg/dL Normal 7 - 18 mg/dL AO ADM SS Urea nitrogen/Creatinine [Mass ratio] 16 ratio Normal 7 - 27 ratio AO ADM SS MALBRon 03-12-2024 U Creatinine <13.0 Low 28.0-117.0 [facility] Comment on above: Performed By: #### M DW, MG, GFR, BMP, CBC, ANEU, TROPHS, ADIFF #### [facility] [address] [place], [place] [address] U Microalb [address] mcg/dL Normal [facility] Comment on above: Performed By: #### M DW, MG, GFR, BMP, CBC, ANEU, TROPHS, ADIFF #### [id number] [place], [place] [address] U Ratio Alb/Cre Unable to calc Normal 0-30 [facility] Comment on above: Performed By: #### M DW, MG, GFR, BMP, CBC, ANEU, TROPHS, ADIFF #### [id number] [place], [place] [address] LABORATORYOrdered By: SYSTEM SYSTEM on 07-12-2022 Albumin BCP dye [Mass/Vol] 4.3 G/dL Invalid Interpretation Code 3.4 - 4.8 G/dL AO ADM SS Calcium [Mass/Vol] 9.6 mg/dL Invalid Interpretation Code 8.4 - 10.2 mg/dL AO ADM SS Chloride [Moles/Vol] 99 mmol/L Invalid Interpretation Code 98 - 107 mmol/L AO ADM SS CO2 [Moles/Vol] 32 mmol/L Invalid Interpretation Code 23 - 31 mmol/L AO ADM SS Creatinine [Mass/Vol] 0.58 mg/dL Invalid Interpretation Code 0.55 - 1.02 mg/dL AO ADM SS Electrolyte Balance 7.0 mEq/L Invalid Interpretation Code 4.0 - 15.0 mEq/L AO ADM SS GFR 122 ml/min/1.73sqm Invalid Interpretation Code AO Chemistry S GFR Non- 100 ml/min/1.73sqm Invalid Interpretation Code AO Chemistry S Glucose [Mass/Vol] 104 mg/dL Invalid Interpretation Code 83 - 110 mg/dL AO ADM SS Phosphate [Mass/Vol] 3.5 mg/dL Invalid Interpretation Code 2.3 - 4.1 mg/dL AO ADM SS Potassium [Moles/Vol] 4.1 mmol/L Invalid Interpretation Code 3.5 - 5.1 mmol/L AO ADM SS Sodium [Moles/Vol] 138 mmol/L Invalid Interpretation Code 136 - 145 mmol/L AO ADM SS Urea nitrogen [Mass/Vol] 8 mg/dL Invalid Interpretation Code 7 - 18 mg/dL AO ADM SS Urea nitrogen/Creatinine [Mass ratio] 14 ratio Invalid Interpretation Code 7 - 27 ratio AO ADM SS LABORATORYOrdered By: Valorie Torre on 07-12-2022 Creatinine (U) [Mass/Vol] 29.0 mg/dL Invalid Interpretation Code 28.0 - 117.0 mg/dL AO ADM SS Protein (U) [Mass/Vol] 16 mg/dL Invalid Interpretation Code 0 - 11 mg/dL AO ADM SS U Ratio Prot/Creat 0.6 ratio Invalid Interpretation Code AO Chemistry S LABORATORYOrdered By: Júnior Bai on 05-26-2022 Appearance (U) Clear (05/26/22 8:43 AM) Invalid Interpretation Code Clear AO Auto Urine SS Bilirubin Ql (U) Small *ABN* (05/26/22 8:43 AM) Invalid Interpretation Code Negative AO Auto Urine SS Calcium oxalate crystals LM.HPF (Urine sed) [#/Area] 2 /[HPF] Invalid Interpretation Code AO Auto Urine SS Color (U) Yellow (05/26/22 8:43 AM) Invalid Interpretation Code AO Auto Urine SS Glucose Test strip (U) [Mass/Vol] Negative Invalid Interpretation Code Negativemg/dL AO Auto Urine SS Hemoglobin Auto test strip (U) [Mass/Vol] Negative (05/26/22 8:43 AM) Invalid Interpretation Code Negative AO Auto Urine SS Ketones Ql (U) Trace mg/dL Invalid Interpretation Code Negativemg/dL AO Auto Urine SS UA Leuk Est Negative (05/26/22 8:43 AM) Invalid Interpretation Code Negative AO Auto Urine SS UA Mucous 1+ /HPF Invalid Interpretation Code AO Auto Urine SS UA Nitrite Negative (05/26/22 8:43 AM) Invalid Interpretation Code Negative AO Auto Urine SS UA pH 6.0 (05/26/22 8:43 AM) Invalid Interpretation Code 5.0 - 8.0 AO Auto Urine SS UA Protein 100 mg/dL Invalid Interpretation Code Negativemg/dL AO Auto Urine SS UA RBC None Seen /HPF Invalid Interpretation Code None Seen/HPF AO Auto Urine SS UA Spec Grav 1.025 (05/26/22 8:43 AM) Invalid Interpretation Code 1.015-1.025 AO Auto Urine SS UA Specimen Type Not Given (05/26/22 8:43 AM) Invalid Interpretation Code AO Auto Urine SS UA Squam Epithelial 0-5 /HPF Invalid Interpretation Code None Seen/HPF AO Auto Urine SS UA Urobilinogen 1.0 E.U./dL Invalid Interpretation Code 0.2-1.0E.U./d L AO Auto Urine SS WBC LM.HPF (Urine sed) [#/Area] None Seen /HPF Invalid Interpretation Code None Seen/HPF AO Auto Urine SS LABORATORYOrdered By: SYSTEM SYSTEM on 05-26-2022 Creatinine (U) [Mass/Vol] 162.5 mg/dL Invalid Interpretation Code 28.0 - 117.0 mg/dL AO ADM SS Protein (U) [Mass/Vol] 71 mg/dL Invalid Interpretation Code 0 - 11 mg/dL AO ADM SS Albumin BCP dye [Mass/Vol] 4.2 G/dL Invalid Interpretation Code 3.4 - 4.8 G/dL AO ADM SS Calcium [Mass/Vol] 9.9 mg/dL Invalid Interpretation Code 8.4 - 10.2 mg/dL AO ADM SS Chloride [Moles/Vol] 100 mmol/L Invalid Interpretation Code 98 - 107 mmol/L AO ADM SS CO2 [Moles/Vol] 30 mmol/L Invalid Interpretation Code 23 - 31 mmol/L AO ADM SS Creatinine [Mass/Vol] 0.63 mg/dL Invalid Interpretation Code 0.55 - 1.02 mg/dL AO ADM SS Electrolyte Balance 10.0 mEq/L Invalid Interpretation Code 4.0 - 15.0 mEq/L AO ADM SS Ferritin [Mass/Vol] 96.0 ng/mL Invalid Interpretation Code 8.0 - 252.0 ng/mL AO ADM SS GFR 110 ml/min/1.73sqm Invalid Interpretation Code AO Chemistry S GFR Non- 91 ml/min/1.73sqm Invalid Interpretation Code AO Chemistry S Glucose [Mass/Vol] 109 mg/dL Invalid Interpretation Code 83 - 110 mg/dL AO ADM SS Iron [Mass/Vol] 125 ug/dL Invalid Interpretation Code 50 - 170 mcg/dL AO ADM SS Iron binding capacity [Mass/Vol] 299 mcg/dL Invalid Interpretation Code 250 - 450 mcg/dL AO ADM SS Iron Sat 42 1 Invalid Interpretation Code AO ADM SS Parathyrin.intact [Mass/Vol] 92.6 pg/mL Invalid Interpretation Code 18.5 - 88.0 pg/mL AH ADM SS Phosphate [Mass/Vol] 3.6 mg/dL Invalid Interpretation Code 2.3 - 4.1 mg/dL AO ADM SS Potassium [Moles/Vol] 4.2 mmol/L Invalid Interpretation Code 3.5 - 5.1 mmol/L AO ADM SS Sodium [Moles/Vol] 140 mmol/L Invalid Interpretation Code 136 - 145 mmol/L AO ADM SS Urea nitrogen [Mass/Vol] 13 mg/dL Invalid Interpretation Code 7 - 18 mg/dL AO ADM SS Urea nitrogen/Creatinine [Mass ratio] 21 ratio Invalid Interpretation Code 7 - 27 ratio AO ADM SS Uric Acid Lvl 3.8 mg/dL Invalid Interpretation Code 2.6 - 6.2 mg/dL AO ADM SS Vit. D 25-Hydroxy 33.1 ng/mL Invalid Interpretation Code AO ADM SS LABORATORYOrdered By: Jil Watts on 05-26-2022 Basophil, Absolute 0.1 103/mcL Invalid Interpretation Code 0.0 - 0.2 10^3/mcL AO Workflow SS Basophils/100 WBC (Bld) 1.1 % Invalid Interpretation Code 0.0 - 2.5 % AO Workflow SS Eosinophil, Absolute 0.2 103/mcL Invalid Interpretation Code 0.0 - 0.4 10^3/mcL AO Workflow SS Eosinophils/100 WBC (Bld) 1.7 % Invalid Interpretation Code 0.0 - 7.0 % AO Workflow SS Erythrocyte distribution width (RBC) [Ratio] 13.5 % Invalid Interpretation Code 11.5 - 14.5 % AO Workflow SS Hematocrit (Bld) [Volume fraction] 46.0 % Invalid Interpretation Code 37.0 - 47.0 % AO Workflow SS Hemoglobin (Bld) [Mass/Vol] 15.8 G/dL Invalid Interpretation Code 12.0 - 16.0 G/dL AO Workflow SS Lymphocyte, Absolute 1.3 103/mcL Invalid Interpretation Code 0.8 - 3.9 10^3/mcL AO Workflow SS Lymphocytes/100 WBC (Bld) 14.3 % Invalid Interpretation Code 10.0 - 50.0 % AO Workflow SS MCH (RBC) [Entitic mass] 29.9 pg Invalid Interpretation Code 27.0 - 31.2 pg AO Workflow SS MCHC 34.4 G/dL Invalid Interpretation Code 33.0 - 37.0 G/dL AO Workflow SS MCV (RBC) [Entitic vol] 87.0 fL Invalid Interpretation Code 80.0 - 94.0 fL AO Workflow SS Monocyte, Absolute 0.6 103/mcL Invalid Interpretation Code 0.2 - 1.0 10^3/mcL AO Workflow SS Monocytes/100 WBC (Bld) 7.0 % Invalid Interpretation Code 1.7 - 13.0 % AO Workflow SS Neutrophil, Absolute 7.0 103/mcL Invalid Interpretation Code 2.9 - 6.2 10^3/mcL AO Workflow SS Neutrophils/100 WBC (Bld) 75.9 % Invalid Interpretation Code 37.0 - 80.0 % AO Workflow SS Platelet mean volume (Bld) [Entitic vol] 7.9 fL Invalid Interpretation Code 7.4 - 10.4 fL AO Workflow SS Platelets (Bld) [#/Vol] 324 103/mcL Invalid Interpretation Code 130 - 400 10^3/mcL AO Workflow SS RBC (Bld) [#/Vol] 5.29 106/mcL Invalid Interpretation Code 4.20 - 5.40 10^6/mcL AO Workflow SS WBC (Bld) [#/Vol] 9.2 103/mcL Invalid Interpretation Code 4.6 - 10.8 10^3/mcL AO Workflow SS LABORATORYOrdered By: Júnior Bai on 03-11-2022 Albumin DL <= 20 mg/L (U) [Mass/Vol] [address] mcg/dL Invalid Interpretation Code AO ADM SS Albumin/Creatinine DL <= 20 mg/L (U) [Mass ratio] 729 mcg/mg Invalid Interpretation Code 0 - 30 mcg/mg AO ADM SS Creatinine (U) [Mass/Vol] 20.6 mg/dL Invalid Interpretation Code 28.0 - 117.0 mg/dL AO ADM SS Calcium [Mass/Vol] 10.3 mg/dL Invalid Interpretation Code 8.4 - 10.2 mg/dL AO ADM SS Calcium.ionized (Bld) [Moles/Vol] 1.25 mmol/L Invalid Interpretation Code 1.12 - 1.32 mmol/L AO Blood Gas SS LABORATORYOrdered By: SYSTEM SYSTEM on 03-11-2022 Parathyrin.intact [Mass/Vol] 86.3 pg/mL Invalid Interpretation Code 18.5 - 88.0 pg/mL AH ADM SS Vital Signs Date Time Vital Sign Value Performing Clinician Kellen resendiz 02-19-2025 12:03-0500 Diastolic Blood Pressure Non-Invasive 80 mm[Hg] VICTOR MANUEL PETERSON MD [facility] 02-19-2025 12:03-0500 Heart rate 68 /min VICTOR MANUEL PETERSON MD [facility] 02-19-2025 12:03-0500 Systolic Blood Pressure Non-Invasive 156 mm[Hg] VICTOR MANUEL PETERSON MD [address] [place] [address] 02-19-2025 10:47-0500 Diastolic Blood Pressure Non-Invasive 82 mm[Hg] VICTOR MANUEL PETERSON MD [address] [place] [address] 02-19-2025 10:47-0500 Heart rate 67 /min VICTOR MANUEL PETERSON MD [address] [place] [address] 02-19-2025 10:47-0500 Respiratory rate 18 /min VICTOR MANUEL PETERSON MD [address] [place] [address] 02-19-2025 10:47-0500 Systolic Blood Pressure Non-Invasive 159 mm[Hg] VICTOR MANUEL PETERSON MD [address] [place] [address] 02-19-2025 10:32-0500 Diastolic Blood Pressure Non-Invasive 89 mm[Hg] VICTOR MANUEL PETERSON MD [address] [place] [address] 02-19-2025 10:32-0500 Heart rate 67 /min VICTOR MANUEL PETERSON MD [address] [place] [address] 02-19-2025 10:32-0500 Respiratory rate 18 /min VICTOR MANUEL PETERSON MD [address] [place] [address] 02-19-2025 10:32-0500 Systolic Blood Pressure Non-Invasive 165 mm[Hg] VICTOR MANUEL PETERSON MD [address] [place] [address] 02-19-2025 10:17-0500 Respiratory rate 18 /min VICTOR MANUEL PETERSON MD [address] [place] [address] 02-19-2025 06:30-0500 Body height 157.5 cm VICTOR MANUEL PETERSON MD [address] [place] [id number] 02-19-2025 06:30-0500 Body temperature 97.88 [degF] VICTOR MANUEL PETERSON MD [address] [place] [id number] 02-19-2025 06:30-0500 Body weight 76.2 kg VICTOR MANUEL PETERSON MD [address] [place] [id number] 02-11-2025 13:28-0500 Blood Pressure Cuff Size DONATO NAVARRETE DO [facility] 02-11-2025 13:28-0500 Blood Pressure Location DONATO NAVARRETE DO [facility] 02-11-2025 13:28-0500 Blood Pressure Method DONATO NAVARRETE DO [facility] 02-11-2025 13:28-0500 Diastolic Blood Pressure Non-Invasive 73 mm[Hg] DONATO NAVARRETE DO [facility] 02-11-2025 13:28-0500 Systolic Blood Pressure Non-Invasive 162 mm[Hg] DONATO NAVARRETE DO [facility] 02-11-2025 13:24-0500 Blood Pressure Cuff Size DONATO NAVARRETE DO [facility] 02-11-2025 13:24-0500 Blood Pressure Location DONATO NAVARRETE DO [facility] 02-11-2025 13:24-0500 Blood Pressure Method DONATO NAVARRETE DO [facility] 02-11-2025 13:24-0500 Body temperature 97.34 [degF] DONATO NAVARRETE DO [facility] 02-11-2025 13:24-0500 Diastolic Blood Pressure Non-Invasive 95 mm[Hg] DONATO NAVARRETE DO [facility] 02-11-2025 13:24-0500 Heart rate 77 /min DONATO NAVARRETE DO [facility] 02-11-2025 13:24-0500 Reason For Taking VItal Signs DONATO NAVARRETE DO [facility] 02-11-2025 13:24-0500 Respiratory rate 18 /min DONATO NAVARRETE DO [facility] 02-11-2025 13:24-0500 Systolic Blood Pressure Non-Invasive 186 mm[Hg] DONATO NAVARRETE DO [facility] 08-09-2024 05:30-0400 Heart rate 52 /min HARRY BAILON MD [address] [place] [address] 08-09-2024 05:30-0400 Respiratory rate 16 /min HARRY BAILON MD [address] [place] [address] 08-09-2024 03:30-0400 Blood Pressure Location HARRY BAILON MD [address] [place] [address] 08-09-2024 03:30-0400 Blood Pressure Method HARRY BAILON MD [address] [place] [address] 08-09-2024 03:30-0400 Body temperature 98.24 [degF] HARRY BAILON MD [address] [place] [address] 08-09-2024 03:30-0400 Diastolic Blood Pressure Non-Invasive 46 mm[Hg] HARRY BAILON MD [address] [place] [address] 08-09-2024 03:30-0400 Heart rate 52 /min HARRY BAILON MD [address] [place] [address] 08-09-2024 03:30-0400 Respiratory rate 16 /min HARRY BAILON MD [address] [place] [address] 08-09-2024 03:30-0400 Systolic Blood Pressure Non-Invasive 94 mm[Hg] HARRY BAILON MD [address] [place] [address] 08-09-2024 02:58-0400 Heart rate 51 /min HARRY BAILON MD [address] [place] [address] 08-08-2024 20:58-0400 Body temperature 97.7 [degF] HARRY BAILON MD [address] [place] [address] 08-08-2024 20:58-0400 Diastolic Blood Pressure Non-Invasive 74 mm[Hg] HARRY BAILON MD [address] [place] [address] 08-08-2024 20:58-0400 Respiratory rate 18 /min HARRY BAILON MD [address] [place] [address] 08-08-2024 20:58-0400 Systolic Blood Pressure Non-Invasive 121 mm[Hg] HARRY BAILON MD [address] [place] [address] 08-08-2024 15:10-0400 Diastolic Blood Pressure Non-Invasive 64 mm[Hg] HARRY BAILON MD [address] [place] [address] 08-08-2024 15:10-0400 Systolic Blood Pressure Non-Invasive 121 mm[Hg] HARRY BAILON MD [address] [place] [address] 08-08-2024 14:30-0400 Diastolic blood pressure 4 mm[Hg] HARRY BAILON MD [address] [place] [address] 08-08-2024 14:30-0400 Systolic blood pressure 117 mm[Hg] HARRY BAILON MD [address] [place] [address] 08-08-2024 14:25-0400 Diastolic blood pressure 47 mm[Hg] HARRY BAILON MD [address] [place] [address] 08-08-2024 14:25-0400 Systolic blood pressure 119 mm[Hg] HARRY BAILON MD [address] [place] [address] 08-08-2024 14:20-0400 Diastolic blood pressure 50 mm[Hg] HARRY BAILON MD [address] [place] [address] 08-08-2024 14:20-0400 Systolic blood pressure 106 mm[Hg] HARRY BAILON MD [address] [place] [address] 08-08-2024 13:55-0400 Respiratory Rate - Anes 12 br/min HARRY BAILON MD [address] [place] [address] 08-08-2024 13:54-0400 Respiratory Rate - Anes 12 br/min HARRY BAILON MD [address] [place] [address] 08-08-2024 13:53-0400 Respiratory Rate - Anes 12 br/min HARRY BAILON MD [address] [place] [address] 08-08-2024 13:40-0400 Body temperature 97.97 [degF] HARRY BAILON MD [address] [place] [address] 08-08-2024 13:35-0400 Body temperature 97.95 [degF] HARRY BAILON MD [address] [place] [address] 08-08-2024 13:30-0400 Body temperature 97.97 [degF] HARRY BAILON MD [address] [place] [address] 08-08-2024 07:53-0400 Blood Pressure Location HARRY BAILON MD [address] [place] [address] 08-08-2024 07:53-0400 Blood Pressure Method HARRY BAILON MD [address] [place] [address] 08-08-2024 07:53-0400 Body height 157.5 cm HARRY BAILON MD [address] [place] [address] 08-08-2024 07:53-0400 Body temperature 97.34 [degF] HARRY BAILON MD [address] [place] [address] 08-08-2024 07:53-0400 Body weight 65.9 kg HARRY BAILON MD [address] [place] [address] 08-08-2024 07:53-0400 Heart rate 92 /min HARRY BAILON MD [address] [place] [address] 07-27-2024 12:34-0400 Blood Pressure Cuff Size HARRY BAILON MD [address] [place] [address] 07-27-2024 12:34-0400 Blood Pressure Location HARRY BAILON MD [address] [place] [address] 07-27-2024 12:34-0400 Blood Pressure Method HARRY BAILON MD [address] [place] [address] 07-27-2024 12:34-0400 Body height 158 cm HARRY BAILON MD [address] [place] [address] 07-27-2024 12:34-0400 Body temperature 97.34 [degF] HARRY BAILON MD [address] [place] [address] 07-27-2024 12:34-0400 Body weight 65.6 kg HARRY BAILON MD [address] [place] [address] 07-27-2024 12:34-0400 Body weight 26.28 kg/m2 HARRY BAILON MD [address] [place] [address] 07-27-2024 12:34-0400 Diastolic Blood Pressure Non-Invasive 73 mm[Hg] HARRY BAILON MD [address] [place] [address] 07-27-2024 12:34-0400 Heart rate 106 /min HARRY BAILON MD [address] [place] [address] 07-27-2024 12:34-0400 Systolic Blood Pressure Non-Invasive 152 mm[Hg] HARRY BAILON MD [address] [place] [address] 07-01-2024 15:39-0400 Heart rate 58 /min DR MONIKA AGUSTIN MD [address] [place] [address] 07-01-2024 15:39-0400 Reason For Taking VItal Signs DR MONIKA AGUSTIN MD [address] [place] [address] 07-01-2024 15:07-0400 Heart rate 59 /min DR MONIKA AGUSTIN MD [address] [place] [address] 07-01-2024 15:07-0400 Blood Pressure Cuff Size DR MONIKA AGUSTIN MD [address] [place] [address] 07-01-2024 15:07-[address] MONIKA AGUSTIN MD [address] [place] [address] 07-01-2024 15:07-[address] MONIKA Sanchez MD [address] [place] [address] 07-01-2024 15:07-0400 Diastolic Blood Pressure Non-Invasive 63 mm[Hg] DR MONIKA AGUSTIN MD [address] [place] [address] 07-01-2024 15:07-0400 Mean blood pressure 103 mm[Hg] DR MONIKA AGUSTIN MD [address] [place] [address] 07-01-2024 15:07-0400 Reason For Taking VItal Signs DR MONIKA AGUSTIN MD [address] [place] [address] 07-01-2024 15:07-0400 Respiratory rate 18 /min DR MONIKA AGUSTIN MD [address] [place] [address] 07-01-2024 15:07-0400 Systolic Blood Pressure Non-Invasive 173 mm[Hg] DR MONIKA AGUSTIN MD [address] [place] [address] 07-01-2024 11:07-0400 Blood Pressure Cuff Size DR MONIKA AGUSTIN MD [address] [place] [address] 07-01-2024 11:07-[address] MONIKA AGUSTIN MD [address] [place] [address] 07-01-2024 11:07-[address] MONIKA Sanchez MD [address] [place] [address] 07-01-2024 11:07-0400 Body temperature 97.88 [degF] DR MONIKA AGUSTIN MD [address] [place] [address] 07-01-2024 11:07-0400 Diastolic Blood Pressure Non-Invasive 62 mm[Hg] DR MONIKA AGUSTIN MD [address] [place] [address] 07-01-2024 11:07-0400 Heart rate 60 /min DR MONIKA AGUSTIN MD [address] [place] [address] 07-01-2024 11:07-0400 Reason For Taking VItal Signs DR MONIKA AGUSTIN MD [address] [place] [address] 07-01-2024 11:07-0400 Respiratory rate 18 /min DR MONIKA AGUSTIN MD [address] [place] [address] 07-01-2024 11:07-0400 Systolic Blood Pressure Non-Invasive 150 mm[Hg] DR MONIKA AGUSTIN MD [address] [place] [address] 07-01-2024 07:03-0400 Diastolic Blood Pressure Non-Invasive 60 mm[Hg] DR MONIKA AGUSTIN MD [address] [place] [address] 07-01-2024 07:03-0400 Systolic Blood Pressure Non-Invasive 170 mm[Hg] DR MONIKA AGUSTIN MD [address] [place] [address] 07-01-2024 07:03-0400 Blood Pressure Cuff Size DR MONIKA AGUSTIN MD [address] [place] [address] 07-01-2024 07:03-[address] MONIKA AGUSTIN MD [address] [place] [address] 07-01-2024 07:03-[address] MONIKA Sanchez MD [address] [place] [address] 07-01-2024 07:03-0400 Heart rate 65 /min DR MONIKA AGUSTIN MD [address] [place] [address] 07-01-2024 07:03-0400 Respiratory rate 18 /min DR MONIKA AGUSTIN MD [address] [place] [address] 07-01-2024 06:43-0400 Heart rate 60 /min DR MONIKA AGUSTIN MD [address] [place] [address] 07-01-2024 03:33-0400 Mean blood pressure 109 mm[Hg] DR MONIKA AGUSTIN MD [address] [place] [address] 07-01-2024 00:15-0400 Mean blood pressure 103 mm[Hg] DR MONIKA AGUSTIN MD [address] [place] [address] 07-01-2024 00:12-0400 Body temperature 97.7 [degF] DR MONIKA AGUSTIN MD [address] [place] [address] 06-30-2024 20:06-0400 Body temperature 98.06 [degF] DR MONIKA AGUSTIN MD [address] [place] [address] 06-30-2024 19:26-0400 Heart rate 54 /min DR MONIKA AGUSTIN MD [address] [place] [address] 06-30-2024 18:56-0400 Heart rate 55 /min DR MONIKA AGUSTIN MD [address] [place] [address] 06-30-2024 16:00-0400 Heart rate 59 /min DR MONIKA AGUSTIN MD [address] [place] [address] 06-30-2024 11:40-0400 Heart rate 56 /min DR MONIKA AGUSTIN MD [address] [place] [address] 06-29-2024 10:12-0400 Body temperature 97.34 [degF] DR MONIKA AGUSTIN MD [address] [place] [address] 06-29-2024 10:10-0400 Respiratory Rate - Anes 21 br/min DR MONIKA AGUSTIN MD [address] [place] [address] 06-29-2024 10:05-0400 Respiratory Rate - Anes 17 br/min DR MONIKA AGUSTIN MD [address] [place] [address] 06-29-2024 10:00-0400 Respiratory Rate - Anes 22 br/min DR MONIKA AGUSTIN MD [address] [place] [address] 06-28-2024 05:22-0400 Body height [address] MONIKA AGUSTIN MD [address] [place] [address] 06-28-2024 05:22-0400 Body weight 63.[address] MONIKA AGUSTIN MD [address] [place] [address] 06-28-2024 05:22-0400 Body weight 22.91 kg/m2 DR MONIKA AGUSTIN MD [address] [place] [address] 06-28-2024 05:06-0400 Body weight 63.[address] MONIKA AGUSTIN MD [address] [place] [address] 06-19-2024 09:59-0400 Diastolic Blood Pressure Non-Invasive 74 mm[Hg] ANASTASIYA RANDEE RADIATION ENGINEER-FINE [employer]S CHAIR [address] [place] [address] 06-19-2024 09:59-0400 Heart rate 64 /min ANASTASIYA RANDEE RADIATION ENGINEER-FINE ARTS CHAIR [address] [place] [address] 06-19-2024 09:59-0400 Respiratory rate 16 /min ANASTASIYA RANDEE RADIATION ENGINEER-FINE ARTS CHAIR [address] [place] [address] 06-19-2024 09:59-0400 Systolic Blood Pressure Non-Invasive 146 mm[Hg] ANASTASIYA RANDEE RADIATION ENGINEER-FINE ARTS CHAIR [address] [place] [address] 06-19-2024 09:50-0400 Diastolic Blood Pressure Non-Invasive 66 mm[Hg] ANASTASIYA RANDEE RADIATION ENGINEER-FINE ARTS CHAIR [address] [place] [address] 06-19-2024 09:50-0400 Heart rate 58 /min ANASTASIYA RANDEE RADIATION ENGINEER-FINE ARTS CHAIR [address] [place] [address] 06-19-2024 09:50-0400 Respiratory rate 16 /min ANASTASIYA RANDEE RADIATION ENGINEER-FINE ARTS CHAIR [address] [place] [address] 06-19-2024 09:50-0400 Systolic Blood Pressure Non-Invasive 159 mm[Hg] ANASTASIYA RANDEE RADIATION ENGINEER-FINE ARTS CHAIR [address] [place] [address] 06-19-2024 09:45-0400 Body temperature 97.16 [degF] ANASTASIYA RANDEE RADIATION ENGINEER-FINE ARTS CHAIR [address] [place] [address] 06-19-2024 09:45-0400 Diastolic Blood Pressure Non-Invasive 74 mm[Hg] ANASTASIYA RANDEE RADIATION ENGINEER-FINE ARTS CHAIR [address] [place] [address] 06-19-2024 09:45-0400 Heart rate 59 /min ANASTASIYA RANDEE RADIATION ENGINEER-FINE ARTS CHAIR [address] [place] [address] 06-19-2024 09:45-0400 Heart rate 80 /min ANASTASIYA RANDEE RADIATION ENGINEER-FINE ARTS CHAIR [address] [place] [address] 06-19-2024 09:45-0400 Respiratory rate 16 /min ANASTASIYA RANDEE RADIATION ENGINEER-FINE ARTS CHAIR [address] [place] [address] 06-19-2024 09:45-0400 Respiratory Rate - Anes 14 br/min ANASTASIYA RANDEE RADIATION ENGINEER-FINE ARTS CHAIR [address] [place] [address] 06-19-2024 09:45-0400 Systolic Blood Pressure Non-Invasive 159 mm[Hg] ANASTASIYA RANDEE RADIATION ENGINEER-FINE ARTS CHAIR [address] [place] [address] 06-19-2024 09:40-0400 Respiratory Rate - Anes 24 br/min ANASTASIYA RANDEE RADIATION ENGINEER-FINE ARTS CHAIR [address] [place] [address] 06-19-2024 09:35-0400 Respiratory Rate - Anes 14 br/min ANASTASIYA RANDEE RADIATION ENGINEER-FINE ARTS CHAIR [address] [place] [address] 06-19-2024 06:34-0400 Body height 160 cm ANASTASIYA RANDEE RADIATION ENGINEER-FINE ARTS CHAIR [address] [place] [address] 06-19-2024 06:34-0400 Body temperature 97.52 [degF] ANASTASIYA RANDEE RADIATION ENGINEER-FINE ARTS CHAIR [address] [place] [address] 06-19-2024 06:34-0400 Body weight 61.3 kg ANASTASIYA RANDEE RADIATION ENGINEER-FINE ARTS CHAIR [address] [place] [address] 06-19-2024 06:34-0400 Heart rate 91 /min ANASTASIYA RANDEE RADIATION ENGINEER-FINE ARTS CHAIR [address] [place] [address] 05-29-2024 13:50-0500 Body temperature 98.06 [degF] DANIELLA KAPPER RADIATION ENGINEER-FINE ARTS CHAIR [facility] 05-29-2024 13:50-0500 Diastolic Blood Pressure Non-Invasive 79 mm[Hg] DANIELLA KAPPER RADIATION ENGINEER-FINE ARTS CHAIR [facility] 05-29-2024 13:50-0500 Heart rate 88 /min DANIELLA KAPPER RADIATION ENGINEER-FINE ARTS CHAIR [facility] 05-29-2024 13:50-0500 Reason For Taking VItal Signs DANIELLA KAPPER RADIATION ENGINEER-FINE ARTS CHAIR [facility] 05-29-2024 13:50-0500 Respiratory rate 18 /min DANIELLA KAPPER RADIATION ENGINEER-FINE ARTS CHAIR [facility] 05-29-2024 13:50-0500 Systolic Blood Pressure Non-Invasive 106 mm[Hg] DANIELLA KAPPER RADIATION ENGINEER-FINE ARTS CHAIR [facility] 05-29-2024 11:35-0500 Body temperature 98.06 [degF] DANIELLA KAPPER RADIATION ENGINEER-FINE ARTS CHAIR [facility] 05-29-2024 11:35-0500 Diastolic Blood Pressure Non-Invasive 88 mm[Hg] DANIELLA KAPPER RADIATION ENGINEER-FINE ARTS CHAIR [facility] 05-29-2024 11:35-0500 Heart rate 81 /min DANIELLA KAPPER RADIATION ENGINEER-FINE ARTS CHAIR [facility] 05-29-2024 11:35-0500 Reason For Taking VItal Signs DANIELLA KAPPER RADIATION ENGINEER-FINE ARTS CHAIR [facility] 05-29-2024 11:35-0500 Respiratory rate 18 /min DANIELLA KAPPER RADIATION ENGINEER-FINE ARTS CHAIR [facility] 05-29-2024 11:35-0500 Systolic Blood Pressure Non-Invasive 128 mm[Hg] DANIELLA KAPPER RADIATION ENGINEER-FINE ARTS CHAIR [facility] 05-29-2024 09:01-0500 Heart rate 80 /min DANIELLA KAPPER RADIATION ENGINEER-FINE ARTS CHAIR [facility] 05-29-2024 08:58-0500 Blood Pressure Location DANIELLA KAPPER RADIATION ENGINEER-FINE ARTS CHAIR [facility] 05-29-2024 08:58-0500 Blood Pressure Method DANIELLA HERNANDEZ RADIATION ENGINEER-C SECURITY CONTROL ASSESSOR [facility] 05-29-2024 08:58-0500 Body temperature 98.06 [degF] DANIELLA HERNANDEZ RADIATION ENGINEER-FINE ARTS CHAIR [facility] 05-29-2024 08:58-0500 Diastolic Blood Pressure Non-Invasive 86 mm[Hg] DANIELLA HERNANDEZ RADIATION ENGINEER-FINE ARTS CHAIR [facility] 05-29-2024 08:58-0500 Heart rate 78 /min DANIELLA HERNANDEZ RADIATION ENGINEER-FINE ARTS CHAIR [facility] 05-29-2024 08:58-0500 Reason For Taking VItal Signs DANIELLA HERNANDEZ RADIATION ENGINEER-FINE ARTS CHAIR [facility] 05-29-2024 08:58-0500 Systolic Blood Pressure Non-Invasive 125 mm[Hg] DANIELLA MCDONOUGHER RADIATION ENGINEER-FINE ARTS CHAIR [facility] 05-29-2024 07:55-0500 Respiratory rate 18 /min DANIELLA MCDONOUGHER RADIATION ENGINEER-FINE ARTS CHAIR [facility] 05-29-2024 07:35-0500 Heart rate 77 /min DANIELLA MCDONOUGHER RADIATION ENGINEER-FINE ARTS CHAIR [facility] 05-28-2024 18:56-0500 Heart rate 77 /min DANIELLA CEASARER RADIATION ENGINEER-FINE ARTS CHAIR [facility] 05-28-2024 17:38-0500 Heart rate 80 /min DANIELLA KAPPER RADIATION ENGINEER-FINE ARTS CHAIR [facility] 05-28-2024 17:36-0500 Blood Pressure Location DANIELLA CEASARER RADIATION ENGINEER-FINE ARTS CHAIR [facility] 05-28-2024 17:36-0500 Blood Pressure Method DANIELLA HERNANDEZ APRN-C SECURITY CONTROL ASSESSOR [facility] 05-28-2024 17:36-0500 Heart rate 80 /min DANIELLA HERNANDEZ RADIATION ENGINEER-FINE ARTS CHAIR [facility] 05-28-2024 08:45-0500 Heart rate 81 /min DANIELLA HERNANDEZ RADIATION ENGINEER-FINE ARTS CHAIR [facility] 05-23-2024 14:01-0500 Body height 160 cm DANIELLA HERNANDEZ RADIATION ENGINEER-FINE ARTS CHAIR [facility] 05-23-2024 14:01-0500 Body weight 63.8 kg DANIELLA HERNANDEZ RADIATION ENGINEER-FINE ARTS CHAIR [facility] 05-23-2024 14:01-0500 Body weight 24.92 kg/m2 DANIELLA HERNANDEZ RADIATION ENGINEER-FINE ARTS CHAIR [facility] 05-23-2024 10:31-0500 Body temperature 98.06 [degF] JULY EZEKIEL RADIATION ENGINEER-FINE ARTS CHAIR [facility] 05-23-2024 10:31-0500 Diastolic Blood Pressure Non-Invasive 65 mm[Hg] JULY EZEKIEL RADIATION ENGINEER-FINE ARTS CHAIR [facility] 05-23-2024 10:31-0500 Heart rate 64 /min JULY EZEKIEL RADIATION ENGINEER-FINE ARTS CHAIR [facility] 05-23-2024 10:31-0500 Reason For Taking VItal Signs JULY EZEKIEL RADIATION ENGINEER-FINE ARTS CHAIR [facility] 05-23-2024 10:31-0500 Respiratory rate 18 /min JULY EZEKIEL RADIATION ENGINEER-FINE ARTS CHAIR [facility] 05-23-2024 10:31-0500 Systolic Blood Pressure Non-Invasive 131 mm[Hg] JULY PARKHILL RADIATION ENGINEER-FINE ARTS CHAIR [facility] 05-23-2024 08:30-0500 Heart rate 75 /min JULY PARKHILL RADIATION ENGINEER-FINE ARTS CHAIR [facility] 05-23-2024 06:36-0500 Body temperature 97.88 [degF] JULY PARKHILL RADIATION ENGINEER-FINE ARTS CHAIR [facility] 05-23-2024 06:36-0500 Diastolic Blood Pressure Non-Invasive 82 mm[Hg] JULY PARKHILL RADIATION ENGINEER-FINE ARTS CHAIR [facility] 05-23-2024 06:36-0500 Heart rate 72 /min JULY PARKHILL RADIATION ENGINEER-FINE ARTS CHAIR [facility] 05-23-2024 06:36-0500 Reason For Taking VItal Signs JULY PARKHILL RADIATION ENGINEER-FINE ARTS CHAIR [facility] 05-23-2024 06:36-0500 Respiratory rate 18 /min JULY PARKHILL RADIATION ENGINEER-FINE ARTS CHAIR [facility] 05-23-2024 06:36-0500 Systolic Blood Pressure Non-Invasive 135 mm[Hg] JULY PARKHILL RADIATION ENGINEER-FINE ARTS CHAIR [facility] 05-23-2024 02:32-0500 Body temperature 98.06 [degF] JULY PARKHILL RADIATION ENGINEER-FINE ARTS CHAIR [facility] 05-23-2024 02:32-0500 Diastolic Blood Pressure Non-Invasive 88 mm[Hg] JULY PARKHILL RADIATION ENGINEER-FINE ARTS CHAIR [facility] 05-23-2024 02:32-0500 Heart rate 64 /min JULY PARKHILL RADIATION ENGINEER-FINE ARTS CHAIR [facility] 05-23-2024 02:32-0500 Reason For Taking VItal Signs JULY PARKHILL RADIATION ENGINEER-FINE ARTS CHAIR [facility] 05-23-2024 02:32-0500 Respiratory rate 18 /min JULY PARKHILL RADIATION ENGINEER-FINE ARTS CHAIR [facility] 05-23-2024 02:32-0500 Systolic Blood Pressure Non-Invasive 138 mm[Hg] JULY PARKHILL RADIATION ENGINEER-FINE ARTS CHAIR [facility] 05-22-2024 23:28-0500 Heart rate 68 /min JULY PARKHILL RADIATION ENGINEER-FINE ARTS CHAIR [facility] 05-22-2024 19:50-0500 Heart rate 75 /min JULY PARKHILL RADIATION ENGINEER-FINE ARTS CHAIR [facility] 05-22-2024 18:03-0500 Heart rate 67 /min JULY PARKHILL RADIATION ENGINEER-FINE ARTS CHAIR [facility] 05-22-2024 07:58-0500 Heart rate 84 /min JULY PARKHILL RADIATION ENGINEER-FINE ARTS CHAIR [facility] 05-22-2024 07:45-0500 Blood Pressure Location JULY PARKHILL RADIATION ENGINEER-FINE ARTS CHAIR [facility] 05-22-2024 07:45-0500 Blood Pressure Method JULY PARKHILL RADIATION ENGINEER-FINE ARTS CHAIR [facility] 05-22-2024 03:56-0500 Body temperature 98.78 [degF] JULY PARKHILL RADIATION ENGINEER-FINE ARTS CHAIR [facility] 05-22-2024 03:56-0500 Heart rate 79 /min JULY PARKHILL RADIATION ENGINEER-FINE ARTS CHAIR [facility] 05-21-2024 17:25-0500 Blood Pressure Location JULY EZEKIEL RADIATION ENGINEER-FINE ARTS CHAIR [facility] 05-21-2024 17:25-0500 Blood Pressure Method JULY EZEKIEL RADIATION ENGINEER-FINE ARTS CHAIR [facility] 05-21-2024 02:37-0500 Body temperature 97.7 [degF] JULY PARKHILL RADIATION ENGINEER-FINE ARTS CHAIR [facility] 05-20-2024 22:36-0500 Body temperature 97.88 [degF] JULY PARKHILL RADIATION ENGINEER-FINE ARTS CHAIR [facility] 05-20-2024 14:00-0500 Heart rate 105 /min DANIELLA HERNANDEZ RADIATION ENGINEER-FINE ARTS CHAIR [facility] 05-20-2024 01:45-0500 Body height 160 cm JULY EZEKIEL RADIATION ENGINEER-FINE ARTS CHAIR [facility] 05-20-2024 01:45-0500 Body weight 63.8 kg JULY PARKHILL RADIATION ENGINEER-FINE ARTS CHAIR [facility] 05-20-2024 01:45-0500 Body weight 24.92 kg/m2 JULY PARKHILL RADIATION ENGINEER-FINE ARTS CHAIR [facility] 05-20-2024 00:39-0500 Diastolic Blood Pressure Non-Invasive 110 mm[Hg] DANIELLA HERNANDEZ RADIATION ENGINEER-FINE ARTS CHAIR [facility] 05-20-2024 00:39-0500 Heart rate 110 /min DANIELLA HERNANDEZ RADIATION ENGINEER-FINE ARTS CHAIR [facility] 05-20-2024 00:39-0500 Respiratory rate 30 /min DANIELLA HERNANDEZ RADIATION ENGINEER-FINE ARTS CHAIR [facility] 05-20-2024 00:39-0500 Systolic Blood Pressure Non-Invasive 160 mm[Hg] DANIELLA MCDONOUGHER RADIATION ENGINEER-FINE ARTS CHAIR [facility] 05-20-2024 00:30-0500 Heart rate 109 /min DANIELLA KAPPER RADIATION ENGINEER[employer]INE [employer] CHAIR [facility] 05-20-2024 00:17-0500 Diastolic Blood Pressure Non-Invasive 138 mm[Hg] DANIELLA KAPPER RADIATION ENGINEER[employer]INE [employer] CHA[employer] [facility] 05-20-2024 00:17-0500 Heart rate 71 /min DANIELLA KAPPER RADIATION ENGINEER[employer]INE [employer] CHA[employer] [facility] 05-20-2024 00:17-0500 Respiratory rate 30 /min DANIELLA KAPPER RADIATION ENGINEER[employer]INE [employer] CHAIR [facility] 05-20-2024 00:17-0500 Systolic Blood Pressure Non-Invasive 183 mm[Hg] DANIELLA KAPPER RADIATION ENGINEER[employer]INE [employer] CHAIR [facility] 05-20-2024 00:14-0500 Respiratory rate 28 /min DANIELLA KAPPER RADIATION ENGINEER[employer] CHAIR [facility] 05-20-2024 00:02-0500 Diastolic Blood Pressure Non-Invasive 134 mm[Hg] DANIELLA KAPPER RADIATION ENGINEER[employer]INE [employer] CHAIR [facility] 05-20-2024 00:02-0500 Systolic Blood Pressure Non-Invasive 198 mm[Hg] DANIELLA KAPPER RADIATION ENGINEER[employer]INE [employer] CHA[employer] [facility] 05-19-2024 23:43-0500 Heart rate 68 /min DANIELLA KAPPER RADIATION ENGINEER-FINE ARTS CHAIR [facility] 05-19-2024 23:40-0500 Heart rate 65 /min DANIELLA KAPPER RADIATION ENGINEER-FINE ARTS CHAIR [facility] 05-19-2024 20:30-0500 Body temperature 97.52 [degF] DANIELLA KAPPER RADIATION ENGINEER-FINE ARTS CHAIR [facility] 05-19-2024 20:30-0500 Heart rate 59 /min DANIELLA KAPPER RADIATION ENGINEER-FINE ARTS CHAIR [facility] 05-19-2024 20:30-0500 Reason For Taking VItal Signs DANIELLALatanya MCDONOUGHER RADIATION ENGINEER-FINE ARTS CHAIR [facility] 05-19-2024 11:05-0500 Heart rate 61 /min DANIELLA KAPPER RADIATION ENGINEER-FINE ARTS CHAIR [facility] 05-19-2024 10:32-0500 Heart rate 62 /min DANIELLA KAPPER RADIATION ENGINEER-FINE ARTS CHAIR [facility] 05-19-2024 08:31-0500 Body temperature 97.52 [degF] DANIELLA KAPPER RADIATION ENGINEER-FINE ARTS CHAIR [facility] 05-19-2024 04:05-0500 Body temperature 98.06 [degF] DANIELLA KAPPER RADIATION ENGINEER-FINE ARTS CHAIR [facility] 05-18-2024 21:07-0500 Body height 160 cm DANIELLA KAPPER RADIATION ENGINEER-FINE ARTS CHAIR [facility] 05-18-2024 21:07-0500 Body weight 63 kg DANIELLA KAPPER RADIATION ENGINEER-FINE ARTS CHAIR [facility] 05-18-2024 21:07-0500 Body weight 24.61 kg/m2 DANIELLA KAPPER RADIATION ENGINEER-FINE ARTS CHAIR [facility] 05-18-2024 17:29-0500 Heart rate 54 /min DR ABHIJEET AGUILAR MD [facility] 05-18-2024 15:41-0500 Diastolic Blood Pressure Non-Invasive 68 mm[Hg] DR ABHIJEET AGUILAR MD [address] [place] [address] 05-18-2024 15:41-0500 Mean blood pressure 85 mm[Hg] DR ABHIJEET AGUILAR MD [address] [place] [address] 05-18-2024 15:41-0500 Systolic Blood Pressure Non-Invasive 136 mm[Hg] DR ABHIJEET AGUILAR MD [address] [place] [address] 05-18-2024 15:41-0500 Heart rate 59 /min DR ABHIJEET AGUILAR MD [address] [place] [address] 05-18-2024 15:41-0500 Reason For Taking VItal Signs DR ABHIJEET AGUILAR MD [address] [place] [address] 05-18-2024 15:40-0500 Respiratory rate 18 /min DR ABHIJEET AGUILAR MD [address] [place] [address] 05-18-2024 11:45-0500 Body temperature 97.52 [degF] DR ABHIJEET AGUILAR MD [address] [place] [address] 05-18-2024 11:05-0500 Heart rate 55 /min DR ABHIJEET AGUILAR MD [address] [place] [address] 05-18-2024 11:05-0500 Blood Pressure Cuff Size DR ABHIJEET AGUILAR MD [address] [place] [address] 05-18-2024 11:05-[address] ABHIJEET AGUILAR MD [address] [place] [address] 05-18-2024 11:05-[address] ABHIJEET AGUILAR MD [address] [place] [address] 05-18-2024 11:05-0500 Diastolic Blood Pressure Non-Invasive 76 mm[Hg] DR ABHIJEET AGUILAR MD [address] [place] [address] 05-18-2024 11:05-0500 Respiratory rate 18 /min DR ABHIJEET AGUILAR MD [address] [place] [address] 05-18-2024 11:05-0500 Systolic Blood Pressure Non-Invasive 158 mm[Hg] DR ABHIJEET AGUILAR MD [address] [place] [address] 05-18-2024 10:50-0500 Diastolic Blood Pressure Non-Invasive 74 mm[Hg] DR ABHIJEET AGUILAR MD [address] [place] [address] 05-18-2024 10:50-0500 Systolic Blood Pressure Non-Invasive 144 mm[Hg] DR ABHIJEET AGUILAR MD [address] [place] [address] 05-18-2024 10:45-0500 Blood Pressure Cuff Size DR ABHIJEET AGUILAR MD [address] [place] [address] 05-18-2024 10:45-[address] ABHIJEET AGUILAR MD [address] [place] [address] 05-18-2024 10:45-[address] ABHIJEET AGUILAR MD [address] [place] [address] 05-18-2024 10:45-0500 Reason For Taking VItal Signs DR ABHIJEET AGUILAR MD [address] [place] [address] 05-18-2024 10:45-0500 Respiratory rate 18 /min DR ABHIJEET AGUILAR MD [address] [place] [address] 05-18-2024 10:23-0500 Body temperature 97.16 [degF] DR ABHIJEET AGUILAR MD [address] [place] [address] 05-18-2024 10:20-0500 Respiratory Rate - Anes 29 br/min DR ABHIJEET AGUILAR MD [address] [place] [address] 05-18-2024 10:15-0500 Respiratory Rate - Anes 25 br/min DR ABHIJEET AGUILAR MD [address] [place] [address] 05-18-2024 10:10-0500 Respiratory Rate - Anes 0 br/min DR ABHIJEET AGUILAR MD [address] [place] [address] 05-18-2024 08:38-0500 Heart rate 86 /min DR ABHIJEET AGUILAR MD [address] [place] [address] 05-18-2024 08:29-0500 Blood Pressure Cuff Size DR ABHIJEET AGUILAR MD [address] [place] [address] 05-18-2024 08:29-[address] ABHIJEET AGUILAR MD [address] [place] [address] 05-18-2024 08:29-[address] ABHIJEET AGUILAR MD [address] [place] [address] 05-18-2024 08:29-0500 Body temperature 97.88 [degF] DR ABHIJEET AGUILAR MD [address] [place] [address] 05-18-2024 08:29-0500 Reason For Taking VItal Signs DR ABHIJEET AGUILAR MD [address] [place] [address] 05-18-2024 04:52-0500 Body temperature 97.52 [degF] DR ABHIJEET AGUILAR MD [address] [place] [address] 05-17-2024 23:02-0500 Mean blood pressure 84 mm[Hg] DR ABHIJEET AGUILAR MD [address] [place] [address] 05-17-2024 17:22-0500 Heart rate 102 /min DR ABHIJEET AGUILAR MD [address] [place] [address] 05-17-2024 11:19-0500 Body temperature 97.7 [degF] DR ABHIJEET AGUILAR MD [address] [place] [address] 05-17-2024 11:00-0500 Body temperature 97.52 [degF] DR ABHIJEET AGUILAR MD [address] [place] [address] 05-17-2024 09:16-0500 Heart rate 99 /min DR ABHIJEET AGUILAR MD [address] [place] [address] 05-16-2024 08:02-0500 Mean blood pressure 103 mm[Hg] DR ABHIJEET AGUILAR MD [address] [place] [address] 05-16-2024 07:39-0500 Heart rate 76 /min DR ABHIJEET AGUILAR MD [address] [place] [address] 05-16-2024 00:02-0500 Heart rate 69 /min DR ABHIJEET AGUILAR MD [address] [place] [address] 05-15-2024 16:30-0500 Heart rate 78 /min DR ABHIJEET AGUILAR MD [facility] 05-13-2024 16:44-0500 Body height [address] ABHIJEET AGUILAR MD [facility] 05-13-2024 16:44-0500 Body weight 65.[address] ABHIJEET AGUILAR MD [facility] 05-13-2024 16:44-0500 Body weight 25.74 kg/m2 DR ABHIJEET AGUILAR MD [facility] 05-13-2024 15:00-0500 Diastolic Blood Pressure Non-Invasive 69 mm[Hg] DR TERRIE SIMS DO [facility] 05-13-2024 15:00-0500 Heart rate 103 /min DR TERRIE SIMS DO [facility] 05-13-2024 15:00-0500 Mean blood pressure 88 mm[Hg] DR TERRIE SIMS DO [facility] 05-13-2024 15:00-0500 Respiratory rate 26 /min DR TERRIE SIMS DO [facility] 05-13-2024 15:00-0500 Systolic Blood Pressure Non-Invasive 135 mm[Hg] DR TERRIE SIMS DO [facility] 05-13-2024 14:00-0500 Diastolic Blood Pressure Non-Invasive 71 mm[Hg] DR TERRIE SIMS DO [facility] 05-13-2024 14:00-0500 Heart rate 90 /min DR TERRIE SIMS DO [facility] 05-13-2024 14:00-0500 Systolic Blood Pressure Non-Invasive 127 mm[Hg] DR TERRIE SIMS DO [facility] 05-13-2024 13:00-0500 Diastolic Blood Pressure Non-Invasive 112 mm[Hg] DR TERRIE SIMS DO [facility] 05-13-2024 13:00-0500 Heart rate 123 /min DR TERRIE SIMS DO [facility] 05-13-2024 13:00-0500 Respiratory rate 29 /min DR TERRIE SIMS DO [facility] 05-13-2024 13:00-0500 Systolic Blood Pressure Non-Invasive 173 mm[Hg] DR TERRIE SIMS DO [facility] 05-13-2024 12:40-0500 Reason For Taking VItal Signs DR TERRIE SIMS DO [facility] 05-13-2024 12:26-0500 Heart rate 137 /min DR TERRIE SIMS DO [facility] 05-13-2024 12:26-0500 Mean blood pressure 109 mm[Hg] DR TERRIE SIMS DO [facility] 05-13-2024 11:52-0500 Heart rate 131 /min DR TERRIE SIMS DO [facility] 05-13-2024 11:28-0500 Blood Pressure Cuff Size DR TERRIE SIMS DO [facility] 05-13-2024 11:28-[address] TERRIE SIMS DO [facility] 05-13-2024 11:28-[address] TERRIE SIMS DO [facility] 05-13-2024 11:28-0500 Body temperature 98.24 [degF] DR TERRIE SIMS DO [facility] 05-13-2024 11:28-0500 Body weight 64.[address] TERRIE SIMS DO [facility] 05-13-2024 11:28-0500 Heart rate 130 /min DR TERRIE SIMS DO [facility] 02-17-2021 17:50-0500 Body height 160 cm JODY GIRALDO MD [facility] 02-17-2021 17:50-0500 Body temperature 98.24 [degF] JODY GIRALDO MD [facility] 02-17-2021 17:50-0500 Body weight 63.6 kg JODY GIRALDO MD [facility] 02-17-2021 17:50-0500 Diastolic blood pressure 75 mm[Hg] JODY GIRALDO MD [facility] 02-17-2021 17:50-0500 Heart rate 78 /min JODY GIRALDO MD [facility] 02-17-2021 17:50-0500 Mean blood pressure 101 mm[Hg] JODY GIRALDO MD [facility] 02-17-2021 17:50-0500 Respiratory rate 16 /min JODY GIRALDO MD [facility] 02-17-2021 17:50-0500 Systolic blood pressure 154 mm[Hg] JODY GIRALDO MD [facility] Encounters Encounter Date Encounter Type Care Provider Facility Start: 02-19-2025 End: 02-19-2025 ambulatory VICTOR MANUEL PETERSON MD Facility:A Start: 02-19-2025 End: 02-19-2025 SAME DAY STAY VICTOR MANUEL PETERSON MD [facility] Start: 02-15-2025 End: 02-15-2025 ambulatory ASIM FISH RADIATION ENGINEER-FINE ARTS CHAIR Facility:[facility] Start: 02-15-2025 End: 02-15-2025 Patient encounter procedure ASIM FISH RADIATION ENGINEER-FINE ARTS CHAIR [facility] Start: 02-11-2025 End: 02-11-2025 ambulatory DONATO E NAVARRETE DO Facility:[facility] Start: 02-11-2025 End: 02-11-2025 SAME DAY STAY DONATO E NAVARRETE DO [facility] Start: 01-11-2025 End: 01-11-2025 ambulatory DONATO E NAVARRETE DO Facility:[facility] Start: 01-11-2025 End: 01-11-2025 Patient encounter procedure DONATO E NAVARRETE DO [facility] Start: 01-08-2025 End: 01-08-2025 ambulatory ASIM FISH RADIATION ENGINEER-FINE ARTS CHAIR Facility:[facility] Start: 01-08-2025 End: 01-08-2025 Patient encounter procedure ASIM FISH RADIATION ENGINEER-FINE ARTS CHAIR [facility] Start: 01-01-2025 End: 01-01-2025 ambulatory ASIM FISH RADIATION ENGINEER-FINE ARTS CHAIR Facility:[facility] Start: 01-01-2025 End: 01-01-2025 Patient encounter procedure ASIM DIEHL RADIATION ENGINEER-FINE ARTS CHAIR [facility] Start: 09-12-2024 End: 09-16-2024 ambulatory DONATO NAVARRETE DO Facility:[facility] Start: 09-12-2024 End: 09-16-2024 Encounter for general adult medical examination without abnormal findings DONATO NAVARRETE DO Facility:[facility] Start: 09-12-2024 End: 09-16-2024 Outreach Lab DONATO NAVARRETE DO [facility] Start: 08-27-2024 End: 09-01-2024 Evaluation and management of inpatient HARRY BAILON MD Facility:[facility] Start: 08-21-2024 End: 08-21-2024 ambulatory EMILIANO ELVIS DO Facility:[facility] Start: 08-21-2024 End: 08-21-2024 Patient encounter procedure ASIM DIEHL RADIATION ENGINEER-FINE ARTS CHAIR [facility] Start: 08-08-2024 End: 08-09-2024 ambulatory EMILIANO ELVIS DO Facility:[facility] Start: 08-08-2024 End: 08-09-2024 Observation HARRY BAILON MD [facility] Start: 07-27-2024 End: 07-27-2024 Admission to establishment HARRY BAILON MD [facility] Start: 07-27-2024 End: 07-27-2024 ambulatory [facility] Facility:A Start: 07-27-2024 Encounter for other preprocedural examination HARRY BAILON MD [facility] Start: 07-19-2024 End: 07-19-2024 ambulatory [facility] Facility:[facility] Start: 07-05-2024 End: 07-05-2024 Emergency department patient visit [facility] Facility:[facility] Start: 06-28-2024 End: 07-01-2024 Evaluation and management of inpatient DR MONIKA AGUSTIN MD [facility] Start: 06-28-2024 End: 06-28-2024 Emergency department patient visit DR MONIKA AGUSTIN MD Facility:[facility] Start: 06-26-2024 End: 06-26-2024 [facility] Start: 06-19-2024 End: 06-19-2024 ambulatory [facility] Facility:A Start: 06-19-2024 End: 06-19-2024 SAME DAY STAY ANASTASIYA Tobias RANDEE RADIATION ENGINEER-FINE ARTS CHAIR [facility] Start: 05-23-2024 End: 05-29-2024 Evaluation and management of inpatient DANIELLA HERNANDEZ RADIATION ENGINEER-FINE ARTS CHAIR [facility] Start: 05-20-2024 End: 05-23-2024 Evaluation and management of inpatient RHINA FALCON RADIATION ENGINEER-FINE ARTS CHAIR [facility] Start: 05-18-2024 End: 05-20-2024 Evaluation and management of inpatient DANIELLA HERNANDEZ RADIATION ENGINEER-FINE ARTS CHAIR [facility] Start: 05-13-2024 End: 05-18-2024 Evaluation and management of inpatient DR ABHIJEET AGUILAR MD [facility] Start: 05-13-2024 End: 05-13-2024 Emergency department patient visit DR TERRIE SIMS DO [facility] Start: 04-13-2024 End: 04-13-2024 [facility] Start: 04-13-2024 End: 04-13-2024 Patient encounter procedure EMILIANO LEAL DO [facility] Start: 03-12-2024 End: 03-12-2024 ambulatory EMILIANO LEAL DO Facility:[facility] Start: 03-12-2024 End: 03-12-2024 Patient encounter procedure EMILIANO LEAL DO [facility] Start: 11-14-2023 ambulatory KEILY Madi JOYCE JORGE DO Facility:[facility] Start: 08-09-2023 End: 08-09-[address] MAXIMINO LIM DO Facility:[facility] Start: 07-12-2022 End: 07-12-2022 Patient encounter procedure TANIA HERNANDEZ MD [facility] Start: 07-08-2022 End: 07-08-2022 Patient encounter procedure TANAI HERNANDEZ MD [facility] Start: 05-26-2022 End: 05-26-2022 Patient encounter procedure TANIA HERNANDEZ MD [facility] Start: 03-11-2022 End: 03-11-2022 Patient encounter procedure EMILIANO LEAL DO [facility] Start: 10-27-2021 End: 12-03-2021 Physical therapy management EMILIANO LEAL DO [facility] Start: 10-21-2021 End: 10-21-2021 Patient encounter procedure EMILIANO LEAL DO [facility] Start: 04-17-2021 End: 04-17-2021 Patient encounter procedure EMILIANO LEAL DO [facility] Start: 02-17-2021 End: 02-17-2021 Emergency department patient visit JODY GIRALDO MD [facility] Procedures Date Procedure Procedure Detail Performing Clinician Start: 08-30-2024 Cardiovascular stress testing ASIM DIEHL RADIATION ENGINEER-FINE ARTS CHAIR Comment on above: * Final Report * Document Contains Addenda Date of Service 08/30/24 Procedure Name Lexiscan Stress Test Referring Provider Dr. Bailon Indication CP Findings Pharmacologic stress testing was performed with regadenoson. A dose of 0.4 milligrams was infused as per protocol. -Resting HR: 59 -Peak HR: 63 -Resting BP: 135/65 -During exam, patient developed SOB/CP that resolved during the procedure. The resting electrocardiogram demonstrated sinus bradycardia, incomplete RBBB, baseline TWI in anterior leads and did not show ST-segment changes consistent with myocardial ischemia. During the stress there was no EKG changes suggestive of ischemia. Occasional PAC/PVCs. Impression: ECG portion of Lexiscan stress test is negative for inducible ischemia. Results of nuclear images will be reported separately. Signature Line Digitally Signed by VJ RUFF MD on 08/30/2024 10:32 AM Addendum by PARISA MATTHEWS MD on August 30, 2024 18:09:01 EDT (Verified) I have personally reviewed the stress test report. I have reviewed the resting EKG as well as EKG during stress portion of the exam. I concur with the findings of the fellow as discussed above. Signature Line Digitally Signed by PARISA MATTHEWS MD on 08/30/2024 06:09 PM Start: 08-08-2024 Destructive procedure R SUDHIR DIEHL RADIATION ENGINEER-FINE ARTS CHAIR Start: 06-29-2024 Cardioversion HARRY Barraza MD Comment on above: Successful Start: 05-16-2024 Echocardiography HARRY GARCIA MD Comment on above: Summary: 1. Left ventricle: The cavity size is mildly increased. Wall thickness is normal. Systolic function is moderately reduced. The estimated ejection fraction is 40-45%. There is moderate diffuse hypokinesis. Grade II diastolic dysfunction. 2. Aortic valve: Thickening, consistent with sclerosis. 3. Mitral valve: There is moderate regurgitation. 4. Left atrium: The atrium is moderately dilated. 5. Right ventricle: The RV systolic pressure by Doppler is 41 mm Hg. 6. Right atrium: The estimated right atrial pressure is 3 mm Hg. Start: 11-02-2019 Colonoscopy and biop sy of colon JODY GIRALDO MD Start: 04-11-2011 Colonoscopy JODY CHILD MD Abdominal hysterectomy JODY GIRALDO MD Appendectomy JODY REYES MD Cataract extraction and insertion of intraocular lens HARRY BAILON MD Comment on above: bilateral Cholecystectomy JODY DUQUE MD Cyst of ovary (disorder) SHIRLEY GIRALDO MD Dilatation of urethral meatus HARRY BAILON MD Immunizations Immunization Date Immunization Notes Care Provider [facility] 01-16-2025 influenza, high dose seasonal, preservative-free; Translations: [Fluzone High-Dose PF Prefilled Syringe ] DONATO NAVARRETE DO [facility] 02-23-2024 influenza, high dose seasonal, preservative-free; Translations: [Fluad PF Prefilled Syringe ] EMILIANO LEAL DO [facility] 02-21-2023 influenza virus vacc ine, unspecified formulation DR TERRIE SIMS DO [facility] 02-12-2022 influenza virus vacc ine, unspecified formulation DR TERRIE SIMS DO [facility] 02-12-2021 influenza virus vacc ine, unspecified formulation DR TERRIE SIMS DO [facility] 02-12-2021 SARS-CoV-2 (COVID-19 ) mRNA-[address] TERRIE SMIS DO [facility] 08-19-[address] TERRIE SIMS DO [facility] 07-26-2020 SARS-CoV-2 (COVID-19 ) mRNA-[address] TERRIE SIMS DO [facility] 06-28-2020 SARS-CoV-2 (COVID-19 ) mRNA-[address] TERRIE SIMS DO [facility] 04-18-[address] TERRIE SIMS DO [facility] 02-03-2020 influenza virus vacc ine, unspecified formulation DR TERRIE SIMS DO [facility] 03-09-2019 influenza virus vacc ine, unspecified formulation DR TERRIE SIMS DO [facility] 03-09-2019 pneumococcal conjuga te vaccine, [address] TERRIE SIMS DO [facility] 01-10-2018 influenza virus vacc ine, unspecified formulation DR TERRIE SIMS DO [facility] 08-14-2014 tetanus toxoid, redu balaji diphtheria toxoid, and acellular pertussis vaccine, adsorbed JODY GIRALDO MD [facility] 08-14-2014 diphtheria, tetanus toxoids and acellular pertussis vaccine, unspecified formulation JODY GIRALDO MD [facility] 03-11-2013 influenza virus vacc ine, unspecified formulation DR TERRIE SIMS DO [facility] 04-11-2002 pneumococcal polysaccharide vaccine, 23 valent JODY GIRALDO MD [facility] 03-10-2002 pneumococcal polysaccharide vaccine, [address] TERRIE SIMS DO [facility] Payers Date Payer Category Payer Private Health Insurance [id number] 2024 Medicare [id number] 2024 Medicare [id number] 2023 Medicare [id number] 2018 Unknown [id number] 1942 Unknown [id number] 2.16.8 40.1.881274.3.579.2. 1942 Unknown [id number] 2.16.8 40.1.987416.3.579.2 1942 Unknown [id number] 2.16. 840.1.477838.3.579.2 1942 Unknown [id number] 2.16. 840.1.033222.3.579.2 1942 Unknown [id number] 2.16. 840.1.931022.3.579.2. 1942 Unknown [id number] 2.16. 840.1.674511.3.579.2. 1942 Unknown [id number] 2.16. 840.1.802861.3.579.2 1942 Unknown [id number] 2.16. 840.1.152791.3.579.2. 1942 Unknown [id number] 2.16.8 40.1.375882.3.579.2.627 1942 Unknown [id number] 2.16.8 40.1.813833.3.579.2.627 1942 Unknown [id number] 2.16.8 40.1.017967.3.579.2.627 1942 Unknown [id number] 2.16.8 40.1.615062.3.579.2.62 1942 Unknown [id number] 2.16.8 40.1.232463.3.579.2.627 1942 Unknown [id number] 2.16.8 40.1.589632.3.579.2.62 1942 Unknown [id number] 2.16.8 40.1.697923.3.579.2. 1942 Unknown [id number] 2.16.8 40.1.853581.3.579.2. 1942 Unknown [id number] 2.16.8 40.1.719529.3.579.2. 1942 Unknown [id number] 2.16.8 40.1.291768.3.579.2. 1942 Unknown [id number] 2.16.8 40.1.457112.3.579.2.62 1942 Unknown [id number] 2.16. 840.1.616725.3.579.2.62 1942 Unknown [id number] 2.16.8 40.1.662282.3.579.2.62 1942 Unknown [id number] 2.16.8 40.1.188275.3.579.2.62 1942 Unknown [id number] 2.16.8 40.1.304367.3.579.2.627 1942 Unknown [id number] 2.16.8 40.1.100636.3.579.2.627 1942 Unknown [id number] 2.16.8 40.1.044623.3.579.2.627 1942 Unknown [id number] 2.16.8 40.1.652396.3.579.2.627 Social History Date Type Detail Facility Start: 12-04-2018 End: 09-01-2023 Heavy tobacco smoker (finding) [facility] Sex Assigned At Female [facility] O[facility] Start: 06-06-2019 Sex Female (finding) [facility] Start: 06-11-2024 End: 07-27-2024 Tobacco smoking status Ex-smoker (finding) [facility] [place] Start: 02-19-2025 Not applicable (qualifier value) [facility] Functional Status Date Assessment Result Facility 02-19-2025 Functional Status Awake, Up ad candice [facility] 02-19-[address] [facility] 02-19-[address] [facility] 08-09-[address] [facility] 08-09-[address] [facility] 08-09-2024 Functional Status Room located n ear nursing station, Door open, Bathroom light on, Non-Slip footwear, Room check performed [facility] 08-09-[address] [facility] 08-09-[address] [facility] 08-08-[address] [facility] 08-08-[address] [facility] 08-08-2024 Functional Status Patient Identi fied Identification band, Verbal [facility] 08-08-[address] [facility] 07-27-2024 Functional Status Sensory Deficits None A [facility] 07-01-2024 Functional Status Door open, Non-Slip footwear, toileting refused, Room check performed [facility] 07-01-2024 Functional Status [facility] 07-01-2024 Functional Status Done [facility] 07-01-2024 Functional Status [facility] 07-01-2024 Functional Status Sequential Com pression Device bilateral knee high removed/off [facility] 06-30-2024 Functional Status 11am-11pm [facility] 06-30-2024 Functional Status Returned to bed [facility] 06-30-2024 Functional Status [facility] 06-30-2024 Functional Status [facility] 06-30-2024 Functional Status Morning Snack Percent 1 00 [facility] 06-29-2024 Functional Status [facility] 06-29-2024 Functional Status [facility] 06-29-2024 Functional Status Patient Identi fied Identification band, Verbal [facility] 06-29-2024 Functional Status Done [facility] 06-29-2024 Functional Status [facility] 06-28-2024 Functional Status Celeste Bolton [facility] 06-28-2024 Functional Status Single level home [facility] 06-28-2024 Functional Status Celeste [facility] 06-28-2024 Functional Status Celeste Bolton [facility] 06-19-2024 Functional Status Awake Celeste Bolton [facility] 06-19-2024 Functional Status Repositions self [facility] 06-19-2024 Functional Status Maintained Celeste Bolton [facility] 05-29-2024 Functional Status Non-Slip footw ear, Room check performed [facility] 05-29-2024 Functional Status Celeste Bolton [facility] 05-29-2024 Functional Status Celeste Bolton [facility] 05-28-2024 Functional Status Celeste Bolton [facility] 05-28-2024 Functional Status Independent Celeste Bolton [facility] 05-28-2024 Functional Status Celeste Bolton [facility] 05-27-2024 Functional Status Celeste Bolton [facility] 05-27-2024 Functional Status Celeste Bolton [facility] 05-27-2024 Functional Status Celeste costello [facility] 05-27-2024 Functional Status Celeste costello [facility] 05-27-2024 Functional Status Celeste costello [facility] 05-27-2024 Functional Status Celeste costello [facility] 05-26-2024 Functional Status Celeste Bolton [facility] 05-26-2024 Functional Status Ambulation Dev ice Utilized Other: Rollator [facility] 05-25-2024 Functional Status Celeste Bolton [facility] 05-25-2024 Functional Status Celeste Bolton [facility] 05-24-2024 Functional Status Celeste Bolton [facility] 05-23-2024 Functional Status Single level h ome, 1st floor bedroom, 1st floor bathroom, basement idundry [facility] 05-23-2024 Functional Status None Celeste Bolton [facility] 05-23-2024 Functional Status 85 Celeste Bolton [facility] 05-23-2024 Functional Status Door open, Non-Slip footwear [facility] 05-23-2024 Functional Status Celeste Bolton [facility] 05-23-2024 Functional Status Celeste Bolton [facility] 05-22-2024 Functional Status 7am-7pm Celeste Bolton [facility] 05-22-2024 Functional Status Front wheeled walker [facility] 05-22-2024 Functional Status Supervised Celeste Bolton [facility] 05-22-2024 Functional Status bilateral knee high rem mary/off [facility] 05-22-2024 Functional Status Celeste Bolton [facility] 05-21-2024 Functional Status Celeste Bolton [facility] 05-21-2024 Functional Status Celeste Bolton [facility] 05-21-2024 Functional Status Done Celeste Bolton [facility] 05-20-2024 Functional Status low air loss bed [facility] 05-20-2024 Functional Status Dinner Percent 60 [facility] 05-20-2024 Functional Status Up to Chair Si tting on edge of bed [facility] 05-20-2024 Functional Status Single level home [facility] 05-20-2024 Functional Status Lunch Percent 80 [facility] 05-20-2024 Functional Status Celeste Bolton [facility] 05-20-2024 Functional Status Celeste Bolton [facility] 05-20-2024 Functional Status Celeste Bolton [facility] 05-20-2024 Functional Status Celeste Bolton [facility] 05-20-2024 Functional Status Standard Safet y ID band on, Call device within reach, Bed in low position, Wheels locked, Upper/Half-Length side-rails up, Safety level maintained [facility] 05-19-2024 Functional Status Room check performed [facility] 05-19-2024 Functional Status Celeste Bolton [facility] 05-19-2024 Functional Status Celeste Bolton [facility] 05-19-2024 Functional Status Single level home [facility] 05-19-2024 Functional Status Supervised Celeste Bolton [facility] 05-19-2024 Functional Status Celeste Bolton [facility] 05-19-2024 Functional Status Celeste Bolton [facility] 05-18-2024 Functional Status None Celeste Bolton [facility] 05-18-2024 Functional Status Door open, Room check performed [facility] 05-18-2024 Functional Status Celeste Bolton [facility] 05-18-2024 Functional Status Celeste Bolton [facility] 05-18-2024 Functional Status Celeste Bolton [facility] 05-18-2024 Functional Status Celeste Bolton [facility] 05-17-2024 Functional Status Celeste Bolton [facility] 05-17-2024 Functional Status Skin Care Prod uct Applied Skin moisturizer [facility] 05-17-2024 [facility] Functional Status Dinner Percent 80 [facility] 05-16-2024 Functional Status Ambulation Encouraged/reinforced importance of ambulation [facility] 05-15-[address] [facility] 05-14-2024 Functional Status Single level home [facility] 05-13-2024 [facility] Functional Status heel(s)s eleva kamran, padded oxygen tubing [facility] 05-13-2024 Functional Status Standard Safet y ID band on, Call device within reach, Bed in low position, Wheels locked, Bedside Cart Locked, Visitor at bedside, Safety level maintained [facility] 05-13-[address] [facility] Mental Status Date Assessment Result Facility 02-19-2025 Mental Status Orientation Oriented x 4 [facility] 02-19-2025 Mental Status [facility] 02-19-2025 Mental Status [facility] 08-09-2024 Mental Status Orientation Oriented x 4 [facility] 08-09-2024 Mental Status [facility] 08-08-2024 Mental Status [facility] 07-01-2024 Mental Status Oriented x 4 [facility] 07-01-2024 Mental Status [facility] 07-01-2024 Mental Status [facility] 06-30-2024 Mental Status [facility] 06-19-2024 [facility] Status [facility] 05-29-2024 Mental Status [facility] x [facility] Status [facility] 05-28-2024 Mental Status [facility] 05-28-2024 Mental Status [facility] 05-23-2024 Mental Status Oriented x 4 [facility] 05-22-2024 Mental Status [facility] 05-22-2024 Mental Status [facility] 05-19-2024 Mental Status Oriented x 4 [facility] 05-19-2024 Mental Status [facility] 05-19-2024 Mental Status [facility] 05-18-2024 Mental Status [facility] 05-18-2024 Mental Status Orientation Oriented x 4 [facility] 05-18-2024 Mental Status [facility] 05-18-2024 Mental Status [facility] 05-13-2024 Mental Status Orientation Oriented x 4 [facility] 05-13-2024 Mental Status [facility] 05-13-2024 Mental Status [facility] Clinical Notes 02-17-2021 to 02-19-2025 Note Date & Type Note Facility 02-19-2025 Hospital Discharg e instructions Patient Education 02/19/2025 11:46:54 Moderate Conscious Sedation, Adult, Care After Moderate Conscious Sedation, Adult, Care After These instructions provide you with information about caring for yourself after your procedure. Your health care provider may also give you more specific instructions. Your treatment has been planned according to current medical practices, but problems sometimes occur. Call your health care provider if you have any problems or questions after your procedure. What can I expect after the procedure? After your procedure, it is common: To feel sleepy for several hours. To feel clumsy and have poor balance for several hours. To have poor judgment for several hours. To vomit if you eat too soon. Follow these instructions at home: For at least 24 hours after the procedure: Do not: ?Participate in activities where you could fall or become injured. ?Drive. ?Use heavy machinery. ?Drink alcohol. ?Take sleeping pills or medicines that cause drowsiness. ?Make important decisions or sign legal documents. ?Take care of children on your own. Rest. Eating and drinking Follow the diet recommended by your health care provider. If you vomit: ?Drink water, juice, or soup when you can drink without vomiting. ?Make sure you have little or no nausea before eating solid foods. General instructions Have a responsible adult stay with you until you are awake and alert. Take dlen-hrt-sdjcycr and prescription medicines only as told by your health care provider. If you smoke, do not smoke without supervision. Keep all follow-up visits as told by your health care provider. This is important. Contact a health care provider if: You keep feeling nauseous or you keep vomiting. You feel light-headed. You develop a rash. You have a fever. Get help right away if: You have trouble breathing. This information is not intended to replace advice given to you by your health care provider. Make sure you discuss any questions you have with your health care provider. Document Released: 01/16/2014 Document Revised: 03/10/2018 Document Reviewed: 07/17/2016 [employer] Patient Education 2020 [employer]. 02/19/2025 11:46:54 3- Heart Cath/PCI radial (01/2018)(CUSTOM) HEART CATHETERIZATION/PCI (radial) Discharge Instructions DIET Drink plenty of fluids for the next 48 hours to help your kidneys flush the heart cath dye out of your system ACTIVITY For the next 48 hours: Do not deep bend the wrist Do not lift, push, or pull anything over 5 pounds Do not use the hand/arm to support your weight when rising from a chair or bed Do not drive For the next 7 days: Do not submerse your procedure site in water Do not swim, wash dishes, or take tub baths You may write, eat, type, and shower WOUND CARE Remove right wrist dressing tomorrow after [address] a band aid on procedure site. Keep a Band-Aid on your procedure site for the next 3-4 days Change the Band-Aid daily or if it gets wet/soiled AFTER YOU GO HOME, CALL YOUR DOCTOR FOR: Any increase in bruising or tenderness from the procedure site Any redness, pus, or other signs of infection at the site A temperature above 100.5 Severe pain at the site DIAL 911 AND RETURN TO THE HOSPITAL FOR: Any bleeding from the procedure site. The site may be bruised or tender, but it should not be bleeding at any time. If your site begins to bleed, hold firm pressure on it and dial 911 to return to the hospital Any increase in swelling at the procedure site. An increase in swelling could mean the area is bleeding under the skin. Hold firm pressure to the site and dial 911 to return to the hospital Document Released: 03/28/2006 Document Revised: 03/14/2013 Document Reviewed: 03/29/2014 ExitCare Patient Information 2015 [employer]. This information is not intended to replace advice given to you by your health care provider. Make sure you discuss any questions you have with your health care provider. Follow Up Care 02/06/2025 11:31:21 With:VICTOR MANUEL PETERSON MD Address: [address] [place] [address]- [phone] When:03/21/2025 15:00:00 Comments:THIS APPOINTMENT WILL BE WITH CARLOS DIEHL CNP [facility] 02-19-2025 Summary of episod e note Discharge Instructions Thank you for allowing [facility] to assist you with your healthcare needs. The following is important discharge information regarding your hospital visit. Your Care Team DONATO NAVARRETE DO What to do next Scheduled Follow-Up Appointments Appointment Type When With Where Contact Information StatusCV OV 03/21/2025 03:00 PM EST ASIM DIEHL APRN-JOI [facility] Confirmed CV OV 12/19/2025 03:30 PM EDT MEREDITH BAILON [facility] Confirmed Follow Up Appointments Follow Up with VICTOR MANUEL PETRESON MD When:03/21/2025 03:00 PM EST Where:[address] [place] [address]- [phone] Additional Information: THIS APPOINTMENT WILL BE WITH CARLOS DIEHL CNP Allergies alendronate (Moderate) Myalgia Periactin Numbness Tikosyn Irregular heart beat Medications Please ask your primary doctor or pharmacist before taking any other medication not listed, including over the counter drugs, herbal medications, vitamins and or supplements as they may interact with your home medications. What How Much When Why Instructions Last Dose New atorvastatin (atorvastatin 40 mg oral tablet) 1 tab(s) by mouth Once a day Duration: 90 Days Refills: 3 Pickup at [facility] Unchanged apixaban (Eliquis 5 mg oral tablet) 1 tab(s) by mouth Two (2) times a day Unchanged budesonide/ formoterol/ glycopyrrolate (Breztri Aerosphere 160 mcg-9 mcg-4.8 mcg/ inh inhalation aerosol) 2 puff(s) by inhalation Two (2) times a day COPD - Chronic obstructive pulmonary disease rinse mouth and throat after use Unchanged bumetanide (bumetanide 1 mg oral tablet) 1 tab(s) by mouth Two (2) times a day Unchanged calcium carbonate (calcium (as carbonate) 600 mg oral tablet) 2 tab(s) by mouth Once a day Unchanged cholecalciferol (Vitamin D (3) 45 units oral capsule) 1,250 Microgram by mouth Once a day Unchanged cholecalciferol (Vitamin D3 50 mcg (2000 intl units) oral capsule) 1 cap by mouth Once a day Unchanged denosumab (Prolia 60 mg/ mL subcutaneous solution) 1 Milliliter Subcutaneous Every 6 months Osteoporosis Signed at 5:57 PM Unchanged empagliflozin (Jardiance 10 mg oral tablet) 1 tab(s) by mouth Once a day (in the morning) Unchanged potassium chloride (potassium chloride 20 mEq oral tablet, extended release) 1 tab(s) by mouth Two (2) times a day Take with food Unchanged valsartan (valsartan 320 mg oral tablet) 1 tab(s) by mouth Every day Pharmacy Information [facility]: [address] [place] [address] [phone] Please take this list to your next doctor s visit. Bring all medications you take, including over the counter medications, herbals and other supplements with you to your doctor s visit. Patients and families are reminded to discard old lists and to update any records with all medication providers or retail pharmacies. Education Materials Moderate Conscious Sedation, Adult, Care After These instructions provide you with information about caring for yourself after your procedure. Your health care provider may also give you more specific instructions. Your treatment has been planned according to current medical practices, but problems sometimes occur. Call your health care provider if you have any problems or questions after your procedure. What can I expect after the procedure? After your procedure, it is common: To feel sleepy for several hours. To feel clumsy and have poor balance for several hours. To have poor judgment for several hours. To vomit if you eat too soon. Follow these instructions at home: For at least 24 hours after the procedure: Do not: ? Participate in activities where you could fall or become injured. ? Drive. ? Use heavy machinery. ? Drink alcohol. ? Take sleeping pills or medicines that cause drowsiness. ? Make important decisions or sign legal documents. ? Take care of children on your own. Rest. Eating and drinking Follow the diet recommended by your health care provider. If you vomit: ? Drink water, juice, or soup when you can drink without vomiting. ? Make sure you have little or no nausea before eating solid foods. General instructions Have a responsible adult stay with you until you are awake and alert. Take dfjz-tjz-svjzoyk and prescription medicines only as told by your health care provider. If you smoke, do not smoke without supervision. Keep all follow-up visits as told by your health care provider. This is important. Contact a health care provider if: You keep feeling nauseous or you keep vomiting. You feel light-headed. You develop a rash. You have a fever. Get help right away if: You have trouble breathing. This information is not intended to replace advice given to you by your health care provider. Make sure you discuss any questions you have with your health care provider. Document Released: 01/16/2014 Document Revised: 03/10/2018 Document Reviewed: 07/17/2016 [employer] Patient Education 2020 [employer] HEART CATHETERIZATION/PCI (radial) Discharge Instructions DIET Drink plenty of fluids for the next 48 hours to help your kidneys flush the heart cath dye out of your system ACTIVITY For the next 48 hours: Do not deep bend the wrist Do not lift, push, or pull anything over 5 pounds Do not use the hand/arm to support your weight when rising from a chair or bed Do not drive For the next 7 days: Do not submerse your procedure site in water Do not swim, wash dishes, or take tub baths You may write, eat, type, and shower WOUND CARE Remove right wrist dressing tomorrow after [address] a band aid on procedure site. Keep a Band-Aid on your procedure site for the next 3-4 days Change the Band-Aid daily or if it gets wet/soiled AFTER YOU GO HOME, CALL YOUR DOCTOR FOR: Any increase in bruising or tenderness from the procedure site Any redness, pus, or other signs of infection at the site A temperature above 100.5 Severe pain at the site DIAL 911 AND RETURN TO THE HOSPITAL FOR: Any bleeding from the procedure site. The site may be bruised or tender, but it should not be bleeding at any time. If your site begins to bleed, hold firm pressure on it and dial 911 to return to the hospital Any increase in swelling at the procedure site. An increase in swelling could mean the area is bleeding under the skin. Hold firm pressure to the site and dial 911 to return to the hospital Document Released: 03/28/2006 Document Revised: 03/14/2013 Document Reviewed: 03/29/2014 ExitCare Patient Information 2015 [employer]. This information is not intended to replace advice given to you by your health care provider. Make sure you discuss any questions you have with your health care provider. Additional Information VACCINATE! IT SAVES LIVES! Members of the community who have not yet received the COVID-19 vaccine and would like to receive it can visit one of [facility] vaccine clinics. There are many vaccine clinic locations within the [facility]. For locations and available times, please visit [email or web address].o hio.[email or web address] It is important to note that some COVID mobile vaccine clinics are held outdoors and may be canceled in rainy or stormy conditions. To learn more about pediatric vaccinations (ages 5-11), we invite you to visit the [facility] webpage. [email or web address] To learn more about the COVID-19 vaccine, we invite you to visit the CDC website for a list of frequently asked questions.https://www.cdc.gov/co ronavirus/2019-ncov/vaccines/faq .html [facility] Patient Portal Access Instructions: Stay connected with your healthcare team and access your personal medical information anytime with the [facility] Patient Portal. Please follow the directions below to create your [facility] account: 1.Access the email account you provided upon registration to the hospital/physician office.2.Look for an invitation email from [facility].3.Open the email and access the invitation link: Accept Invitation to [facility].4.Fill in the required tripp to create your account. To access your account, visit [email or web address] or scan the [employer] code above. Click the blue button labeled Access Patient Portal and then log in with the username and password that you created in the steps above. You will be able to view your test results, lab results, a summary of your visits, upcoming appointments and more. There is also a convenient messaging option where you can send secure messages to your provider. In addition, you will have the ability to download any documents or summaries to your computer and/or send the information securely to a physician. Remember that your healthcare information is confidential, so carefully consider who you will allow to register on the [facility] [employer] Patient Portal for access to your information. You can also access the [facility] [employer] Patient Portal on the [facility] Anywhere duke. Simply click on Patient Portal and then log into your account. If you would like to receive a full copy of your medical records, please contact the [facility] Medical Records Department by calling [phone], Tuesday through Tuesday between 8 a.m. and 4:30 p.m. HOW TO SAFELY DISPOSE OF PRESCRIPTION MEDICATIONS Please use one of the following methods to safely dispose of your unused medications. 1.Use a drug disposal kit: the drug disposal pouch allows you to safely discard your old and unused drugs. Ask your nurse to give you one when you are discharged.2.Visit a local take-back location: Many local pharmacies and police departments have programs that collect old and unwanted prescription drugs. Call your local pharmacy or go to http://CueSongs.cortical.io/3T9Lg7p to find one close to you.3.Make use of household items: Use cat litter or old coffee grounds to dispose medications if other options are not available. Mix your drugs with these household products, seal them in an airtight container and throw it into the garbage. Call [facility]: [phone] to be sure your drugs can be disposed of in this way. Some medicines may require a different approach.4.Never flush your medications down the toilet. IF YOU HAVE BEEN PRESCRIBED AN OPIOID FOR PAIN If you have been prescribed an opioid (such as hydrocodone, oxycodone or morphine), it is critical to understand the possible side effects and risks of opioid pain medications. Even when taken as directed, opioids can have several side effects including: Tolerance, meaning you might need to take more of a medication for the same pain relief. Nausea, vomiting and/or constipation. Sleepiness, dizziness, dry mouth, confusion, depression or itching. Physical dependence, meaning you have withdrawal symptoms when a medication is stopped, can develop within a few days. KNOW YOUR RESPONSIBILITIES It is important to know exactly how much and how often to take the opioid pain medications you are prescribed. Never take opioids in higher amounts or more often than prescribed. Do not combine opioids with alcohol or other drugs that cause drowsiness, such as benzodiazepines, also known as benzos, including diazepam and alprazolam, muscle relaxants or sleep aids. Never sell or share prescription opioids. This is illegal. Store opioids in a secure place and out of reach of others (including children, family, friends and visitors). The last page of this document has been signed and retained as a CHART COPY. Signatures Patient Education Materials Moderate Conscious Sedation, Adult, Care After 3- Heart Cath/PCI radial (01/2018)(CUSTOM) Medication Leaflets My discharge plan and instructions have been reviewed and explained to me and I,JED SEWELL understand my current condition and have read and understand these discharge instructions. I have received a written copy of the plan/instructions. If I have questions, I am aware that I should contact my doctor. 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 S/p LHC with OM 2 disease, possible dissection. Mil;d RCA disease. Medical management. Continue with AC and start statin Allergies alendronate (Moderate) Myalgia Periactin Numbness Tikosyn Irregular heart beat Consults No qualifying data available. Objective Vitals and Measurements T: 36.6 C (Oral) HR: 73 RR: 18 BP: 183/85 HT: 157.5 cm WT: 76.2 kg Weight Dosing Weight: 76.2 kg (02/19/25) Code Status No qualifying data available. Admission Date 02/19/2025 Discharge Date 02/19/2025 Medications Unchanged apixaban (Eliquis 5 mg oral tablet)1 tab(s) by mouth two (2) times a day. Refills: 3. budesonide/formoterol/glycopyrro late (Breztri Aerosphere 160 mcg-9 mcg-4.8 mcg/inh inhalation aerosol)2 puff(s) by inhalation two (2) times a day. rinse mouth and throat after use. Refills: 2. bumetanide (bumetanide 1 mg oral tablet)1 tab(s) by mouth two (2) times a day. Refills: 3. calcium carbonate (calcium (as carbonate) 600 mg oral tablet)2 tab(s) by mouth once a day. cholecalciferol (Vitamin D (3) 45 units oral capsule)1,250 Microgram by mouth once a day. cholecalciferol (Vitamin D3 50 mcg (2000 intl units) oral capsule)1 cap by mouth once a day. denosumab (Prolia 60 mg/mL subcutaneous solution)1 Milliliter Subcutaneous every 6 months. Signed 01/22/25 at 5:57 PM. Refills: 1. empagliflozin (Jardiance 10 mg oral tablet)1 tab(s) by mouth once a day (in the morning). Refills: 3. potassium chloride (potassium chloride 20 mEq oral tablet, extended release)1 tab(s) by mouth two (2) times a day. Take with food. Refills: 1. valsartan (valsartan 320 mg oral tablet)1 tab(s) by mouth every day. Refills: 1. Follow Up Follow Up with VICTOR MANUEL PETERSON MD When:03/21/2025 03:00 PM EST Where:[address] [facility] [place] [address]- [phone] Additional Information: THIS APPOINTMENT WILL BE WITH CARLOS DIEHL CNP Follow Up Appointments No qualifying data available. Follow Up Labs/Studies Discharge Labs No Follow-up Labs Discharge Studies No Follow-up Studies Discharge Diet No qualifying data available. Discharge Activity No qualifying data available. Readmission Risk/Palliative Score No qualifying data available. Digitally Signed by WALT NO MD on 02/19/2025 09:38 AM Digitally Signed by WALT NO MD on 02/19/2025 09:40 AM Digitally Signed by WALT NO MD on 02/19/2025 09:52 AM Digitally Signed by VICTOR MANUEL PETERSON MD on 02/19/2025 03:48 PM [facility] 02-11-2025 Nurse Progress note patient tolerated prolia injection without signs or symptoms of a reaction Digitally Signed by Marcelle Davidson RN on 02/11/2025 01:35 PM [facility] 01-08-2025 Note Exam Date Time Procedure Performing Provider Status 01/08/25 1:14 PM Echocardiogram, Adult - CV MONIKA AGUSTIN MD; Auth (Verified) [facility]09-23-2025 Note* Exam Date Time Procedure Performing Provider Status 01/01/25 10:56 AM XR Chest 2 Views SHANNAN CELIS MD; [facility] (Verified) [id number] ORIGINAL EXAMINATION: TWO XRAY VIEWS OF THE CHEST TECHNIQUE: CHEST AP/PA and LATERAL COMPARISON: CXR from 08/29/2024 HISTORY: ORDERING SYSTEM PROVIDED HISTORY: Reason for Exam: SOB FINDINGS: Biapical pleural thickening and scarring. Cardiomediastinal silhouette is stable. Aortic arch calcification. There is no overt edema. Streaky bibasilar infiltrates more pronounced on the left. No pleural effusion. No pneumothorax. Chronic compression deformities of T10 and T12 seen dating back to chest CT on 10/21/2021. IMPRESSION: Streaky bibasilar infiltrates more pronounced on the left, atelectasis and or consolidation. Chronic thoracic compression deformities. Biapical pleural thickening scarring. Interpreted by: Shannan Celis Preliminary Report By: Rylan Gan Electronically signed By Shannan Celis Dictated Date: 01/01/2025 2:30:53 PM Prelim Date: 01/01/2025 3:15:11 PM Sign Date: 01/01/2025 3:15:11 PM Ordering Provider: ASIM DIEHL [facility]05-01-2025 Hospital Discharge instructions Patient Education 08/09/2024 08:14:32 3-- EP Study/Ablation (01/2018) (CUSTOM) ELECTROPHYSIOLOGY STUDY/ABLATION Discharge Instructions DIET INSTRUCTIONS Resume diet as prior to procedure ACTIVITIES Do not drive FOR 24 HOURS No heavy lifting GREATER THAN 20 POUNDS or pushing or straining FOR 3 DAYS Please monitor your blood pressure and report to your physician with any concerns BATHING/SHOWERING May tub bathe in 4 days Do not sit in hot tub, whirlpool, or swim for 4 days May shower today WOUND CARE You may go home with a Band-Aid over your procedure site. Keep this Band-Aid on for the next 24 hours and then remove it leaving the site open to air. Some degree of bruising and tenderness is normal around the procedure site. It will take a while for any bruising to completely resolve. Keep your site clean and dry. You need to report the following to your film reproducer: Any draining or oozing from the site Any swelling at the site Any increased pain or tenderness at the site Any numbness in your leg where the procedure was done Any sign of infection WATCH FOR SIGNS OF INFECTION: Elevated temperature above 100.5 Redness or swelling Increased pain Foul odor or drainage. If you have any questions, please call your doctor at the number listed on your follow up instructions. Follow all instructions given to you by your physician. Document Released: 03/28/2006 Document Revised: 03/14/2013 Document Reviewed: 03/29/2014 ExitCare Patient Information 2014 [employer]. This information is not intended to replace advicegiven to you by your health care provider. Make sure you discuss any questions you have with your health care provider. Follow Up Care 07/13/2024 14:36:08 With:ASIM DIEHL RADIATION ENGINEER-FINE ARTS CHAIR Address: [address] [place] [address]- [phone] When:09/19/2024 15:00:00 With:HARRY BAILON MD Address: [address] [place] [address] When:11/12/2024 15:00:00 Comments:THIS APPOINTMENT WILL BE WITH ANASTASIYA JEFF CNP [facility] 05-01-2025 Summary of episode note Discharge Instructions Thank you for allowing [facility] to assist you with your healthcare needs. The following is importantdischarge information regarding your hospital visit. Your Care Team EMILIANO LEAL DO Your Diagnosis HFrEF (heart failure with reduced ejection fraction) Wheezing What to do next Scheduled Follow-Up Appointments Appointment Type When With Where Contact Information StatusCV OV 09/19/2024 03:00 PM EDT ASIM DIEHL [facility] Confirmed CV OV 11/12/2024 03:00 PM EDT ANASTASIYA JEFF [facility] Confirmed Follow Up Appointments Follow Up with ASIM DIEHL When:09/19/2024 03:00 PM EDT Where:[address] [place] [address]- [phone] Follow Up with HARRY BAILON MD When:11/12/2024 03:00 PM EDT Where:[address] [place] [address]- [phone] Additional Information: THIS APPOINTMENT WILL BE WITH ANASTASIYA JEFF CNP The Following Activity and Diet Have Been Ordered for You Discharge Activity - Ordered -- Other, No heavy lifting (>20 pounds) for the next 3 days, 08/09/24 8:11:00 EDT Discharge Diet - Ordered -- No changes were made to your diet during your hospital stay. Please resume your pre hospitalization diet on discharge., 08/09/24 8:11:00 EDT Allergies alendronate (Moderate) Myalgia Periactin Numbness Medications Please ask your primary doctor or pharmacist before taking any other medication not listed, including over the counter drugs, herbal medications, vitamins and or supplements as they may interact withyour home medications. What How Much When Why Instructions Last Dose Unchanged albuterol (albuterol MDI (90 mcg/ inh) CFC free inhalation aerosol) 2 puff(s) by inhalation Every 4 hours as needed for as needed for wheezing Unchanged albuterol (albuterol 2.5 mg/ 3 mL (0.083%) inhalation solution) 3 Milliliter by inhalation Every 6 hours as needed for as needed for wheezing Wheezing HFrEF (heart failure with reduced ejection fraction) Duration: 30 Days Diagnoses: R06.2; I50.20 Length of need: Lifetime (99) Unchanged amLODIPine (amLODIPine 5 mg oral tablet) 1 tab(s) by mouth Once a day Resume 08/10/24 Unchanged apixaban (Eliquis 5 mg oral tablet) 1 tab(s) by mouth Two (2) times a day Unchanged bumetanide (bumetanide 1 mg oral tablet) 1 tab(s) by mouth Two (2) times a day Resume 08/10/24 Unchanged denosumab (Prolia 60 mg/ mL subcutaneous solution) 1 Milliliter Subcutaneous Every 6 months Osteoporosis Unchanged empagliflozin (Jardiance 10 mg oral tablet) 1 tab(s) by mouth Once a day (in the morning) Unchanged Misc Medication (OXYGEN) 1 LITERS in the nose Daily at bedtime as needed for Shortness of breath (SOB) FOR PULSE OX LESS THAN 90 Unchanged potassium chloride (potassium chloride 20 mEq oral tablet, extended release) 1 tab(s) by mouth Once a day Take with food Resume 08/10/24 Unchanged valsartan (valsartan 160 mg oral tablet) 1 tab(s) by mouth Once a day Replaces previous Rx for the valsartan 320 mg dose. Resume 08/10/24 What How Much When Comments Stop Taking amiodarone (amiodarone 200 mg oral tablet) 1 tab(s) by mouth Once a day Please take this list to your next doctor s visit. Bring all medications you take, including over the counter medications, herbals and other supplements with you to your doctor s visit. Patients and families are reminded to discard old lists and to update any records with all medication providers or retail pharmacies. Education Materials ELECTROPHYSIOLOGY STUDY/ABLATION Discharge Instructions DIET INSTRUCTIONS Resume diet as prior to procedure ACTIVITIES Do not drive FOR 24 HOURS No heavy lifting GREATER THAN 20 POUNDS or pushing or straining FOR 3 DAYS Please monitor your blood pressure and report to your physician with any concerns BATHING/SHOWERING May tub bathe in 4 days Do not sit in hot tub, whirlpool, or swim for 4 days May shower today WOUND CARE You may go home with a Band-Aid over your procedure site. Keep this Band-Aid on for the next 24 hours and then remove it leaving the site open to air. Some degree of bruising and tenderness is normal around the procedure site. It will take a while for any bruising to completely resolve. Keep your site clean and dry. You need to report the following to your film reproducer: Any draining or oozing from the site Any swelling at the site Any increased pain or tenderness at the site Any numbness in your leg where the procedure was done Any sign of infection WATCH FOR SIGNS OF INFECTION: Elevated temperature above 100.5 Redness or swelling Increased pain Foul odor or drainage. If you have any questions, please call your doctor at the number listed on your follow up instructions. Follow all instructions given to you by your physician. Document Released: 03/28/2006 Document Revised: 03/14/2013 Document Reviewed: 03/29/2014 ExitCare Patient Information 2015 [facility], [facility]. This information is not intended to replace advicegiven to you by your health care provider. Make sure you discuss any questions you have with your health care provider. Additional Information VACCINATE! IT SAVES LIVES! Members of the community who have not yet received the COVID-19 vaccine and would like to receive it can visit one of [facility] vaccine clinics. There are many vaccine clinic locations within the [facility]. For locations and available times, please visit [email or web address].[place].gov/. It is important to note that some COVID mobile vaccine clinics are held outdoors and may be canceled in rainy or stormy conditions. To learn more about pediatric vaccinations (ages 5-11), we invite you to visit the [facility] webpage. https://www.[facility].org/pages/5381-Rlsms-Ndsdztydagh-Izveqbrqti-Dxpqj-Rdd stions.htmlTo learn more about the COVID-19 vaccine, we invite you to visit the CDC website for a list of frequently asked questions.https://www.cdc.gov/coronavirus/2019-ncov/vaccines/faq.html [employer] Patient Portal Access Instructions: Stay connected with your healthcare team and access your personal medical information anytime with the [employer] Patient Portal. Please follow the directions below to create your [employer] account: 1.Access the email account you provided upon registration to the hospital/physician office.2.Look for an invitation email from [facility].3.Open the email and access the invitation link: AcceptInvitation to [employer].4.Fill in the required tripp to create your account. To access your account, visit [employer]. Click the blue button labeled Access Patient Portal and then log in with the username and password that you created in the steps above. You will be able to view your test results, lab results, a summary of your visits, upcoming appointments and more. There is also a convenient messaging option where you can send secure messages to your [employer]. In addition, you will have the ability to download any documents or summaries to your computer and/or send the information securely to a physician. Remember that your healthcare information is confidential, so carefully consider who you will allowto register on the [employer] Patient Portal for access to your information. You can also access the [employer] Patient Portal on the [employer]. Simply click on Patient Portal and then log into your account. If you would like to receive a full copy of your medical records, please contact the [facility] Medical Records Department by calling [phone], Tuesday through Tuesday between 8 a.m. and 4:30 p.m. HOW TO SAFELY DISPOSE OF PRESCRIPTION MEDICATIONS Please use one of the following methods to safely dispose of your unused medications. 1.Use a drug disposal kit: the drug disposal pouch allows you to safely discard your old and unuseddrugs. Ask your nurse to give you one when you are discharged.2.Visit a local take-back location: Many local pharmacies and police departments have programs that collect old and unwanted prescriptiondrugs. Call your local pharmacy or go to http://CueSongs.cortical.io/8B4Tr3e to find one close to you.3.Make use of household items: Use cat litter or old coffee grounds to dispose medications if other options arenot available. Mix your drugs with these household products, seal them in an airtight container andthrow it into the garbage. Call [facility]: [phone] to be sure your drugs can be disposed of in this way. Some medicines may require a different approach.4.Never flush your medications down the toilet. IF YOU HAVE BEEN PRESCRIBED AN OPIOID FOR PAIN If you have been prescribed an opioid (such as hydrocodone, oxycodone or morphine), it is critical to understand the possible side effects and risks of opioid pain medications. Even when taken as directed, opioids can have several side effects including: Tolerance, meaning you might need to take more of a medication for the same pain relief. Nausea, vomiting and/or constipation. Sleepiness, dizziness, dry mouth, confusion, depression or itching. Physical dependence, meaning you have withdrawal symptoms when a medication is stopped, can develop within a few days. KNOW YOUR RESPONSIBILITIES It is important to know exactly how much and how often to take the opioid pain medications you are prescribed. Never take opioids in higher amounts or more often than prescribed. Do not combine opioids with alcohol or other drugs that cause drowsiness, such as benzodiazepines, also known as benzos, including diazepam and alprazolam, muscle relaxants or sleep aids. Never sell or share prescription opioids. This is illegal. Store opioids in a secure place and out of reach of others (including children, family, friends and visitors). The last page of this document has been signed and retained as a CHART COPY. Signatures Patient Education Materials 3-- EP Study/Ablation (01/2018) (CUSTOM) Medication Leaflets My discharge plan and instructions have been reviewed and explained to me and I,JED SEWELL understand my current condition and have read and understand these discharge instructions. I have received a written copy of the plan/instructions. If I have questions, I am aware that I should contact my doctor. 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 Signature: Date/Time: Relationship to Patient: Witness Name/Signature: Date/Time: [id number] Note* Exam Date Time Procedure Performing Provider Status 08/09/24 3:42 AM Electrocardiogram - EKG - CV NIKOLASP LISA PARISH MD; Auth (Verified) ECG Final Report SINUS RHYTHM BORDERLINE PROLONGED QT INTERVAL Electronic Signature: LISA BOSS MD 08/09/2024 07:44:04 [id number] Anesthesiology Consult note Patient: JED SEWELL Age: 83 years Sex: Female : 1940 Associated Diagnoses: None Author: ARTURO POE MD Assessment Postanesthesia assessment Vitals: Vital signs from flowsheet : Vital Signs 08/08/2024 14:00 EDT Temperature Skin 36.3 DegC Heart Rate Monitored 50 bpm LOW Respiratory Rate 15 br/min Systolic Blood Pressure Invasive 110 mmHg Diastolic Blood Pressure Invasive 50 mmHg 08/08/2024 13:55 EDT Respiratory Rate - Anes 12 br/min br/min 08/08/2024 13:54 EDT Respiratory Rate - Anes 12 br/min br/min 08/08/2024 13:53 EDT Respiratory Rate - Anes 12 br/min br/min 08/08/2024 13:50 EDT Heart Rate Monitored 47 bpm bpm Respiratory Rate - Anes 15 br/min br/min 08/08/2024 13:48 EDT Systolic Blood Pressure Non-Invasive 104 mmHg mmHg Diastolic Blood Pressure Non-Invasive 56 mmHg mmHg 08/08/2024 13:45 EDT Heart Rate Monitored 44 bpm bpm Respiratory Rate - Anes 16 br/min br/min 08/08/2024 13:40 EDT Temperature (Route Not Specified) 36.65 DegC DegC Heart Rate Monitored 46 bpm bpm Respiratory Rate - Anes 8 br/min br/min 08/08/2024 13:35 EDT Temperature (Route Not Specified) 36.64 DegC DegC Heart Rate Monitored 93 bpm bpm Respiratory Rate - Anes 12 br/min br/min 08/08/2024 13:30 EDT Temperature (Route Not Specified) 36.65 DegC DegC Heart Rate Monitored 74 bpm bpm Respiratory Rate - Anes 12 br/min br/min 08/08/2024 13:25 EDT Temperature (Route Not Specified) 36.68 DegC DegC Heart Rate Monitored 85 bpm bpm Respiratory Rate - Anes 12 br/min br/min 08/08/2024 13:20 EDT Temperature (Route Not Specified) 36.71 DegC DegC Heart Rate Monitored 92 bpm bpm Respiratory Rate - Anes 12 br/min br/min 08/08/2024 13:18 EDT Systolic Blood Pressure Non-Invasive 99 mmHg mmHg Diastolic Blood Pressure Non-Invasive 74 mmHg mmHg 08/08/2024 13:15 EDT Temperature (Route Not Specified) 36.71 DegC DegC Heart Rate Monitored 104 bpm bpm Respiratory Rate - Anes 12 br/min br/min 08/08/2024 13:10 EDT Temperature (Route Not Specified) 36.71 DegC DegC Heart Rate Monitored 104 bpm bpm Respiratory Rate - Anes 10 br/min br/min 08/08/2024 13:05 EDT Temperature (Route Not Specified) 36.73 DegC DegC Heart Rate Monitored 91 bpm bpm Respiratory Rate - Anes 10 br/min br/min 08/08/2024 13:00 EDT Temperature (Route Not Specified) 36.69 DegC DegC Heart Rate Monitored 60 bpm bpm Respiratory Rate - Anes 10 br/min br/min 08/08/2024 12:55 EDT Temperature (Route Not Specified) 36.66 DegC DegC Heart Rate Monitored 50 bpm bpm Respiratory Rate - Anes 10 br/min br/min 08/08/2024 12:50 EDT Temperature (Route Not Specified) 36.63 DegC DegC Heart Rate Monitored 87 bpm bpm Respiratory Rate - Anes 10 br/min br/min 08/08/2024 12:48 EDT Systolic Blood Pressure Non-Invasive 111 mmHg mmHg Diastolic Blood Pressure Non-Invasive 79 mmHg mmHg 08/08/2024 12:45 EDT Temperature (Route Not Specified) 36.59 DegC DegC Heart Rate Monitored 88 bpm bpm Respiratory Rate - Anes 10 br/min br/min 08/08/2024 12:40 EDT Temperature (Route Not Specified) 36.59 DegC DegC Heart Rate Monitored 77 bpm bpm Respiratory Rate - Anes 10 br/min br/min 08/08/2024 12:35 EDT Temperature (Route Not Specified) 36.57 DegC DegC Heart Rate Monitored 85 bpm bpm Respiratory Rate - Anes 10 br/min br/min 08/08/2024 12:30 EDT Temperature (Route Not Specified) 36.6 DegC DegC Heart Rate Monitored 82 bpm bpm Respiratory Rate - Anes 10 br/min br/min 08/08/2024 12:25 EDT Temperature (Route Not Specified) 36.62 DegC DegC Heart Rate Monitored 83 bpm bpm Respiratory Rate - Anes 10 br/min br/min 08/08/2024 12:20 EDT Temperature (Route Not Specified) 36.63 DegC DegC Heart Rate Monitored 71 bpm bpm Respiratory Rate - Anes 10 br/min br/min 08/08/2024 12:18 EDT Systolic Blood Pressure Non-Invasive 94 mmHg mmHg Diastolic Blood Pressure Non-Invasive 61 mmHg mmHg 08/08/2024 12:15 EDT Temperature (Route Not Specified) 36.64 DegC DegC Heart Rate Monitored 74 bpm bpm Respiratory Rate - Anes 10 br/min br/min 08/08/2024 12:10 EDT Temperature (Route Not Specified) 36.67 DegC DegC Heart Rate Monitored 87 bpm bpm Respiratory Rate - Anes 10 br/min br/min 08/08/2024 12:05 EDT Temperature (Route Not Specified) 36.71 DegC DegC Heart Rate Monitored 82 bpm bpm Respiratory Rate - Anes 10 br/min br/min 08/08/2024 12:00 EDT Temperature (Route Not Specified) 36.76 DegC DegC Heart Rate Monitored 90 bpm bpm Respiratory Rate - Anes 10 br/min br/min 08/08/2024 11:55 EDT Temperature (Route Not Specified) 36.78 DegC DegC Heart Rate Monitored 94 bpm bpm Respiratory Rate - Anes 10 br/min br/min 08/08/2024 11:50 EDT Heart Rate Monitored 107 bpm bpm Respiratory Rate - Anes 10 br/min br/min 08/08/2024 11:48 EDT Respiratory Rate - Anes 16 br/min br/min Systolic Blood Pressure Non-Invasive 110 mmHg mmHg Diastolic Blood Pressure Non-Invasive 64 mmHg mmHg 08/08/2024 11:47 EDT Respiratory Rate - Anes 16 br/min br/min 08/08/2024 11:46 EDT Respiratory Rate - Anes 16 br/min br/min 08/08/2024 11:45 EDT Heart Rate Monitored 98 bpm bpm Respiratory Rate - Anes 16 br/min br/min (Modified) Systolic Blood Pressure Non-Invasive 152 mmHg mmHg Diastolic Blood Pressure Non-Invasive 86 mmHg mmHg 08/08/2024 11:44 EDT Respiratory Rate - Anes 16 br/min br/min 08/08/2024 7:53 EDT Temperature Oral 36.3 DegC Peripheral Pulse Rate 92 bpm Respiratory Rate 18 br/min Systolic Blood Pressure Non-Invasive 132 mmHg Diastolic Blood Pressure Non-Invasive 72 mmHg Blood Pressure Method Manual Blood Pressure Location Right arm 08/07/2024 14:48 EDT Peripheral Pulse Rate 95 bpm Systolic Blood Pressure Non-Invasive 140 mmHg Diastolic Blood Pressure Non-Invasive 70 mmHg Blood Pressure Method Manual Blood Pressure Location Left arm Blood Pressure Cuff Size Large , Oxygen Therapy : Oxygen Therapy & Oxygenation Information 08/08/2024 14:00 EDT Oxygen Therapy Room air Oxygen Saturation 98 % 08/08/2024 13:55 EDT Oxygen Saturation 100 % % 08/08/2024 13:50 EDT Oxygen Saturation 100 % % 08/08/2024 13:45 EDT Oxygen Saturation 100 % % 08/08/2024 13:40 EDT Oxygen Saturation 100 % % 08/08/2024 13:35 EDT Oxygen Saturation 99 % % 08/08/2024 13:30 EDT Oxygen Saturation 99 % % 08/08/2024 13:25 EDT Oxygen Saturation 99 % % 08/08/2024 13:20 EDT Oxygen Saturation 99 % % 08/08/2024 13:15 EDT Oxygen Saturation 99 % % 08/08/2024 13:10 EDT Oxygen Saturation 100 % % 08/08/2024 13:05 EDT Oxygen Saturation 99 % % 08/08/2024 13:00 EDT Oxygen Saturation 100 % % 08/08/2024 12:55 EDT Oxygen Saturation 100 % % 08/08/2024 12:50 EDT Oxygen Saturation 100 % % 08/08/2024 12:45 EDT Oxygen Saturation 100 % % 08/08/2024 12:40 EDT Oxygen Saturation 100 % % 08/08/2024 12:35 EDT Oxygen Saturation 100 % % 08/08/2024 12:30 EDT Oxygen Saturation 100 % % 08/08/2024 12:25 EDT Oxygen Saturation 100 % % 08/08/2024 12:20 EDT Oxygen Saturation 100 % % 08/08/2024 12:15 EDT Oxygen Saturation 100 % % 08/08/2024 12:10 EDT Oxygen Saturation 100 % % 08/08/2024 12:05 EDT Oxygen Saturation 100 % % 08/08/2024 12:00 EDT Oxygen Saturation 100 % % 08/08/2024 11:55 EDT Oxygen Saturation 100 % % 08/08/2024 11:50 EDT Oxygen Saturation 100 % % 08/08/2024 11:45 EDT Oxygen Saturation 95 % % 08/08/2024 7:53 EDT Oxygen Therapy Room air Oxygen Saturation 94 % 08/07/2024 14:48 EDT Oxygen Saturation 97 % . Mental status: at preoperative baseline, alert & oriented x 4. Respiratory function: respirations are non-labored. Respiratory support: none. CV function: Normal rate. Cardiovascular support: none. Nausea status: denies nausea. Postoperative hydration status: within normal limits. Notes: pT IN STABLE vs AND ALERT AND ORIENTED TRANSFERED TO THE icu.. Digitally Signed by ARTURO POE MD on 08/08/2024 02:10 PM [facility] Note* Exam Date Time Procedure Performing Provider Status 08/08/24 12:00 PM Ablation CV HARRY BAILON MD; Auth (Ve rified) [id number] Anesthesiology Consult note Patient: JED SEWELL Age: 83 years Sex: Female : 1940 Associated Diagnoses: None Author: ARTURO POE MD Preoperative Information Greater than 6 hours Anesthesia history Patient's history: negative. Family's history: negative. Review of Systems Ear/Nose/Mouth/Throat: Negative except as documented in history of present illness. Respiratory: Negative except as documented in history of present illness. Cardiovascular: Negative except as documented in history of present illness. Gastrointestinal: Negative except as documented in history of present illness. Genitourinary: Negative except as documented in history of present illness. Endocrine: Negative except as documented in history of present illness. Musculoskeletal: Negative except as documented in history of present illness. Integumentary: Negative except as documented in history of present illness. Neurologic: Negative except as documented in history of present illness. Health Status Allergies: Allergic Reactions (Selected) Severity Not Documented Periactin- Numbness. Nonallergic Reactions (Selected) Moderate Alendronate- Myalgia., Allergies (2) ActiveSeverityReaction alendronateModerateMyalgia PeriactinNumbness Current medications: (Selected) Inpatient Medications Ordered NS 1,000 mL: 50 mL/hr, Intravenous Prescriptions Prescribed Eliquis 5 mg oral tablet: 5 mg, 1 tab(s), Oral, BID, 180 tab(s), 3 Refill(s) Jardiance 10 mg oral tablet: 10 mg, 1 tab(s), Oral, qAM, 90 tab(s), 3 Refill(s) Prolia 60 mg/mL subcutaneous solution: 60 mg, 1 mL, Subcutaneous, q6mo, 1 mL, 0 Refill(s) albuterol MDI (90 mcg/inh) CFC free inhalation aerosol: 2 puff(s), Inhalation, q4h, PRN: as needed for wheezing, 18 gram(s), 0 Refill(s) albuterol 2.5 mg/3 mL (0.083%) inhalation solution: 2.5 mg, 3 mL, Inhalation, q6h, for 30 day(s), Diagnoses: R06.2; I50.20 Length of need: Lifetime (99), PRN: as needed for wheezing, 360 mL, 2 Refill(s) amLODIPine 5 mg oral tablet: 5 mg, 1 tab(s), Oral, qDay, 90 tab(s), 3 Refill(s) amiodarone 200 mg oral tablet: 200 mg, 1 tab(s), Oral, qDay, 60 tab(s), 0 Refill(s) bumetanide 1 mg oral tablet: 1 mg, 1 tab(s), Oral, BID, 180 tab(s), 3 Refill(s) potassium chloride 20 mEq oral tablet, extended release: 20 mEq, 1 tab(s), Oral, qDay, Take with food, 30 tab(s), 3 Refill(s) valsartan 160 mg oral tablet: 160 mg, 1 tab(s), Oral, qDay, Replaces previous Rx for the valsartan 320 mg dose., 90 tab(s), 1 Refill(s) Documented Medications Documented OXYGEN: 1 LITERS, Nasal, qHS, FOR PULSE OX LESS THAN 90, PRN: Shortness of breath (SOB), 0 Refill(s), Medications (1) Active Scheduled: (0) Continuous: (1) NS (0.9% nacl) 1,000 mL 1,000 mL, Intravenous, 50 mL/hr PRN: (0) Problem list: Medical Chronic renal failure, stage 3 (moderate) / SNOMED CT 995143546 / Confirmed COPD - Chronic obstructive pulmonary disease / SNOMED CT 318783494 / Confirmed HFrEF (heart failure with reduced ejection fraction) / SNOMED CT 1140022718 / Confirmed HTN (hypertension) / SNOMED CT [id number] / Confirmed Osteoporosis / SNOMED CT 475321292 / Confirmed Persistent atrial fibrillation / SNOMED CT 0276074444 / Confirmed Serum calcium elevated / SNOMED CT 406228330 / Confirmed Wheezing / SNOMED CT 39076576 / Confirmed Resolved: Acute bronchitis due to infection / SNOMED CT 501858906 Resolved: DDD (degenerative disc disease), lumbar / SNOMED CT 51030101 Resolved: Microalbuminuria / SNOMED CT 506295105 Resolved: Neck pain on right side / SNOMED CT 952347296 Resolved: Proteinuria of undiagnosed cause / SNOMED CT 914732961 Resolved: Sciatica / SNOMED CT 76289413 Canceled: Atrial fibrillation / SNOMED CT 54452315 Canceled: Atrial fibrillation, rapid / SNOMED CT 084674024 Canceled: H/O osteoporosis / SNOMED CT 366198256 Canceled: Hypercalcemia / SNOMED CT 616943174 Canceled: Immunization due / SNOMED CT 377378346, Active Problems (17) Chronic renal failure, stage 3 (moderate) Constipation COPD - Chronic obstructive pulmonary disease BENNETT (dyspnea on exertion) Glasses Hard of hearing HFrEF (heart failure with reduced ejection fraction) HTN (hypertension) Hyperparathyroidism VT (myocardial infarction) Mitral regurgitation Osteoporosis Persistent atrial fibrillation Presence of dental prosthetic device Seasonal allergy Serum calcium elevated Wheezing Histories Past Medical History: Active HTN (hypertension) ([id number]) Resolved Sciatica (73630645): Resolved. Microalbuminuria (633501126): Resolved. DDD (degenerative disc disease), lumbar (35385710): Resolved. Neck pain on right side (966206393): Resolved. Proteinuria of undiagnosed cause (280196657): Resolved. Acute bronchitis due to infection (145536880): Resolved. Family History: Respiratory disease Father Sister Brother COPD Mother Colon cancer Sister Procedure history: Cardioversion ([id number]) on 06/29/2024 at 83 Years. Comments: 07/12/2024 15:37 Noemi Perez LPN Successful Echocardiogram ([id number]) on 05/16/2024 at 83 Years. Comments: 07/12/2024 15:38 Noemi Perez LPN Summary: 1. Left ventricle: The cavity size is mildly increased. Wall thickness is normal. Systolic functionis moderately reduced. The estimated ejection fraction is 40-45%. There is moderate diffuse hypokinesis. Grade II diastolic dysfunction. 2. Aortic valve: Thickening, consistent with sclerosis. 3. Mitral valve: There is moderate regurgitation. 4. Left atrium: The atrium is moderately dilated. 5. Right ventricle: The RV systolic pressure by Doppler is 41 mm Hg. 6. Right atrium: The estimated right atrial pressure is 3 mm Hg. Colonoscopy and biopsy of colon ([id number]) on 11/02/2019 at 78 Years. Colonoscopy ([id number]) on 04/11/2011 at 70 Years. Ovarian cyst ([id number]). Appendectomy (097189996). Cholecystectomy (19374833). Abdominal hysterectomy (106868456). Cataract extraction and IOL (implantation of intraocular lens) (4478051970). Comments: 07/27/2024 12:49 EDT - CE [place] bilateral Dilation of urethral meatus (0599922484). Social History: Social & Psychosocial Habits Alcohol 08/08/2024Risk Assessment: Denies Alcohol Use 08/08/2024 Use: Past Employment/School 08/07/2024 Status: Retired Substance Abuse 08/08/2024Risk Assessment: Denies Substance Abuse 08/08/2024 Use: Never Tobacco 08/08/2024 Tobacco Use: Former smoker, quit more, quit 05/13/24 Type: Cigarettes Number of years: 45 Started at age: 22 Years Stopped at age: 83 Years Exercise Comment: none - 12/04/2018 11:18 - Aidee Boyer LPN Home/Environment 08/08/2024 Living situation: Home/Independent Safe place to go: Yes Domestic Concerns Denies Lives In Single level home Current Home Treatments Nebulizer treatments, Oxygen therapy Nutrition/Health 08/08/2024 Type of diet: Regular Appetite Good Eating Difficulties None Caffeine intake amount: decaf coffee Physical Examination Vital Signs 08/08/2024 7:53 EDT Temperature Oral 36.3 DegC Peripheral Pulse Rate 92 bpm Respiratory Rate 18 br/min Systolic Blood Pressure Non-Invasive 132 mmHg Diastolic Blood Pressure Non-Invasive 72 mmHg Blood Pressure Method Manual Blood Pressure Location Right arm 08/07/2024 14:48 EDT Peripheral Pulse Rate 95 bpm Systolic Blood Pressure Non-Invasive 140 mmHg Diastolic Blood Pressure Non-Invasive 70 mmHg Blood Pressure Method Manual Blood Pressure Location Left arm Blood Pressure Cuff Size Large Vital Signs (last 24 hrs) Last Charted Temp Oral36.3 DegC (AUG 08 07:53) BUT456 mmHg (AUG 08 07:53) DBP72 mmHg (AUG 08 07:53) Measurements from flowsheet : Measurements 08/08/2024 7:53 EDT Height 157.5 cm Height in inches 62 inch(es) Admission Weight 65.9 kg Weight Lbs 145 lb Weight Method Actual [place] Body Weight 50.12 kg Type of Scale Used Standing Admission Body Mass Index 26.57 m2 08/07/2024 14:48 EDT Height 157.5 cm Height in inches 62 inch(es) Admission Weight 66.2 kg Weight Lbs 145.6 lb Weight Method Actual [place] Body Weight 50.12 kg BSA Admission 1.67 Body Mass Index 26.69 kg/m2 Pain assessment: Pain Assessment 08/08/2024 7:53 EDT Primary Pain Intensity 0 Pain Scale Type 0-10 Pain scale . General: Alert and oriented. Airway: Normal temporomandibular joint mobility, Normal mouth, Normal throat, Normal neck range of motion, Trachea midline. Mallampati classification: II (soft palate, fauces, uvula visible). Head: Normocephalic. Dentition Evaluation: Edentulous.. Neck: Supple. Respiratory: Lungs are clear to auscultation, Respirations are non-labored. Cardiovascular: Normal rate, Regular rhythm, No murmur. Heart Sounds: Normal. Gastrointestinal: Soft. Musculoskeletal Normal range of motion. Integumentary: Intact, Warm, Dry. Neurologic: Alert, Oriented. Review / Management Results review: Labs (Last four charted values) WBC 7.4(AUG 08) Hgb 12.3(AUG 08) Hct 36.9(AUG 08) Plt 309(AUG 08) Na 137(AUG 08) K 4.4(AUG 08) CO2 24(AUG 08) Cl 106(AUG 08) Cr 1.07(AUG 08) BUN 16.0(AUG 08) Glucose 87(AUG 08) Ca L 8.3(AUG 08) PT 13.7(AUG 08) INR 1.2(AUG 08) PTT H 37.1(AUG 08) , Lab results 08/08/2024 10:54 EDT Response to Advance Directive Request Scanned into EMR 08/08/2024 10:45 EDT Ablation CV Arrived (In Progress) 08/08/2024 8:42 EDT SN - Preop - CTm - Pt in HL SD Room 08/08/2024 7:53 SN - Preop - CTm - HL Pt Ready for Procedure 08/08/2024 8:42 08/08/2024 8:41 EDT Continuous IV Infusions ns @ 50ml/hr Sodium Chloride 0.9% Begin Bag 1,000 mL mL 08/08/2024 8:39 EDT Antecubital Right 08/08/2024 20 gauge Peripheral IV Activity: Insert new site Peripheral IV Dressing Condition: Clean, Dry, Intact Peripheral IV Dressing Activity: Applied, Transparent dressing Peripheral IV Line Status/Patency: Flushes easily, 10ml normal saline flush Peripheral IV Site Condition: No complications Peripheral IV Equipment: PRN Adaptor Peripheral IV Number of Attempts: 1 08/08/2024 8:37 EDT WBC 7.4 10^3/mcL RBC 4.11 10^6/mcL Hgb 12.3 G/dL Hct 36.9 % MCV 89.8 fL MCH 29.9 pg MCHC 33.3 G/dL RDW 14.2 % Platelet 309 10^3/mcL MPV 7.8 fL Neutrophil % 79.0 % HI Lymphocyte % 9.3 % LOW Monocyte % 7.4 % Eosinophil % 2.8 % Basophil % 1.5 % Neutrophil, Absolute 5.8 10^3/mcL Lymphocyte, Absolute 0.7 10^3/mcL LOW Monocyte, Absolute 0.5 10^3/mcL Eosinophil, Absolute 0.2 10^3/mcL Basophil, Absolute 0.1 10^3/mcL APTT 37.1 seconds HI Protime 13.7 seconds PT International Ratio 1.2 ratio NA Fibrinogen 583 mg/dL HI Glucose Level 87 mg/dL Sodium Level 137 mEq/L Potassium Level 4.4 mEq/L Chloride 106 mEq/L CO2 24 mEq/L Electrolyte Balance 7.0 mEq/L BUN 16.0 mg/dL Creatinine Lvl (s) 1.07 mg/dL Estimated Glomerular Filtration Rate 52 ml/min/1.73sqm NA BUN/Creatinine Ratio 15.0 ratio Calcium Lvl 8.3 mg/dL LOW ABO/Rh Interp B POS ABSC Interp (Gel) Negative ABSC Creatinine Clearance Calc 32.63 mL/min 08/08/2024 8:26 EDT Electrocardiogram - EKG - CV Completed (In Progress) 08/08/2024 8:12 EDT Allergies Yes Consent Form Signed Yes Patient Dressed In Hospital gown, No undergarments History & Physical On Chart Yes Obstructive Sleep Apnea Assess Completed Yes NPO Status Maintained Allergy Band on and Verified Yes Patient ID Band on and Verified Yes Blood Consent Signed Yes Last Fluid Intake 08/07/2024 18:00 08/08/2024 7:53 EDT Designated Person #1 We May Share PHI Natalie elizabeth- [phone] Designated Person #1 Relationship Daughter Designated Person #2 We May Share PHI Kayode [phone] Designated Person #2 Relationship Family member Privacy Restrictions Requested None Height 157.5 cm Height in inches 62 inch(es) Admission Weight 65.9 kg Weight Lbs 145 lb Weight Method Actual [place] Body Weight 50.12 kg Type of Scale Used Standing Admission Body Mass Index 26.57 m2 Temperature Oral 36.3 DegC Peripheral Pulse Rate 92 bpm Respiratory Rate 18 br/min Systolic Blood Pressure Non-Invasive 132 mmHg Diastolic Blood Pressure Non-Invasive 72 mmHg Blood Pressure Method Manual Blood Pressure Location Right arm Primary Pain Intensity 0 Pain Scale Type 0-10 Pain scale Cardiovascular Symptoms Edema Heart Rhythm Irregular Dorsalis Pedis Pulse, Left 2+ Normal Dorsalis Pedis Pulse, Right 2+ Normal Radial Pulse, Left 2+ Normal Radial Pulse, Right 2+ Normal Respirations Unlabored Respiratory Pattern Regular Breath Sounds Auscultated Anterior and posterior All Lobes Breath Sounds Clear, Diminished Oxygen Therapy Room air Oxygen Saturation 94 % Status N/A Skin Description Normal for ethnicity Skin Temperature Warm Skin Integrity Pressure points intact Skin Moisture General Dry Neurological Symptoms Patient denies Extremity Movement Equal Characteristics of Speech Clear Level of Consciousness Alert Tone All Extremities Normal Affect/Behavior Appropriate Orientation Oriented x 4 Sensory Deficits None Sleep Apnea Snore No Sleep Apnea Tired No Sleep Apnea Obstruction No Sleep Apnea Pressure Yes Sleep Apnea BMI No Sleep Apnea Age Yes Sleep Apnea Neck No Sleep Apnea Gender No Sleep Apnea Score 2 Diagnosed With Sleep Apnea No Advanced Directives Yes Advance Directive Type [place] Durable Power of Returned Materials Inspector for [place], [place] Declaration (Living Will) Advance Directive Location Indicates that [place] has been given copy Infectious Disease Symptoms Patient states no symptoms Infectious Disease Recent Exposure No Alcohol and Drug Use No Employee of Institutional Living No Health Care Employee No History of Exposure to TB No History of Positive Chest X-Ray for TB No History of Positive TB Skin Test No Homeless No Known Immunosuppression No Recent Immigrant No Resident of Institutional Living No Bloody Sputum No Fatigue No Fever No Loss of Appetite No Night Sweats No Persistent Cough > 3 Weeks No Weight Loss No Pre-Op Patient Education 1 bottle CHG wash with instructions given, VTE prevention handout given, SSI prevention handout given Individuals Taught Patient, Daughter Learning Readiness Willing to learn Barriers to Learning None evident Teaching Method Explanation Preferred Spoken Language [place] Islander Preferred Written Language [place] Teaching Evaluation Verbalizes/Nonverbally indicates understanding General Infection Prevention Strategies Hand hygiene, Respiratory hygiene - Cover Your Cough, Infection Signs & Symptoms Infection Prevention Teaching Evaluation Verbalizes/Nonverbally indicates understanding Pre Procedure/Surgery Education Appropriate expectations, Date/Time of procedure/surgery, Hospital gown requirement worn to OR, NPO Incision/Wound Care Education Hand hygiene, Infection signs/symptoms, When to call health care provider Procedure/Surgical Teaching Evaluation Verbalizes/Nonverbally indicates understanding Safety Brochure Information Reviewed Yes [place] Welcome Video Viewed Patient refused Patient's Current Physicians Patient's Current Physicians History of Malignant Hyperthermia No Discharge To, Anticipated Home independently (Modified) Assistive Device None Positioning Repositions self Mobility Assistance Level Independent Activity Status ADL Awake Standard Safety ID band on, Allergy Band on, Call device within reach, Bed in low position, Wheels locked, Visitor at bedside, Non-Slip footwear Demonstrates Correct Call Light Use Yes Prev Test Positive/Diagnosis w/COVID-19 No Current Quarantine/Isolated any Illness No Any Contact with Sick Animals/Birds No Traveled Anywhere in Last 30 Days No Lost Weight Unintentionally Recently No Eat Poorly Due to Decreased Appetite No Total MST Score 0 N/A Personal Devices, Patient Valuables Dentures, lower, Dentures, upper Anesthesia/Transfusions Prior anesthesia Admission Note-Nursing Same Day Patient History (Modified) 08/07/2024 14:48 EDT Height 157.5 cm Height in inches 62 inch(es) Admission Weight 66.2 kg Weight Lbs 145.6 lb Weight Method Actual [place] Body Weight 50.12 kg BSA Admission 1.67 Body Mass Index 26.69 kg/m2 Peripheral Pulse Rate 95 bpm Systolic Blood Pressure Non-Invasive 140 mmHg Diastolic Blood Pressure Non-Invasive 70 mmHg Blood Pressure Method Manual Blood Pressure Location Left arm Blood Pressure Cuff Size Large Oxygen Saturation 97 % Advanced Directives Yes Advance Directive Type [facility] Power of Returned Materials Inspector for [place], [place] Declaration (Living Will) Advance Directive Location Indicates that [place] 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 C/O O2 at 1 liter prn C/) SOB Comprehensive Intake-Specialty OfficeAMB Ambulatory Comprehensive Intake - Specialty Office Preferred Lab [place] facility Preferred [facility] 08/07/2024 14:45 EDT Cardiology Office Note Office Visit Note History of Present Illness Documentation History of Present Illness Documentation Impression and Plan Documentation Impression and Plan Documentation Review of Systems Documentation Review of Systems Documentation Physical Examination Documentation Physical Examination Documentation . Assessment and Plan [place] [employer] Anesthesiologists (ASA) physical status classification: Class III. Anesthetic Preoperative Plan Premedication: intravenous. Anesthetic technique: General. Induction: intravenously. Maintenance airway: Oral endotracheal tube. Special techniques: Warming device. Special Monitoring: Arterial line. Postoperative pain management: Per surgeon. Risks discussed: nausea, vomiting, headache, sore throat, dental injury, hypotension, allergic reaction, serious complications. Informed consent: signed by patient. Notes: ASA 3: A-Fib,HFpEF,HTN,CAD,CRF,COPD.. Beta Vadim: Beta Vadim Taken Within 24 Hrs. Digitally Signed by ARUTRO POE MD on 08/08/2024 11:21 AM [id number] Note* Exam Date Time Procedure Performing Provider Status 08/08/24 8:26 AM Electrocardiogram - EKG - CV NIKOLASP LISA PARISH MD; Auth (Verified) ECG Final Report ATRIAL FIBRILLATION BORDERLINE PROLONGED QT INTERVAL Electronic Signature: LISA BOSS MD 08/09/2024 07:43:54 [facility] [id number] History and physical note Date of Service August 03, 2024 Primary EP: Dr. Bailon History and Physical Update I have examined the patient; reviewed the History and Physical and there are no changes to the History and Physical unless noted below. Digitally Signed by ANASTASIYA JEFF APRN-FINE ARTS CHAIR on 08/03/2024 03:40 PM [facility] [id number] Discharge summary Date of Service 07/01/2024 Discharge Diagnosis Atrial Fibrillation Acute on Chronic HFrEF Hospital Course 83-year-old female with history of recently diagnosed atrial fibrillation (status post cardioversion on June 19), recently diagnosed HFmrEF, hypertension, osteoporosis Transferred from [place] for acute on chronic HFmrEF in the setting of hypertensive emergency and atrial fibrillation. During hospitalization was continued on amiodarone loading and diuresed with IV Lasix 40 mg twice daily. Diltiazem was discontinued due to history of HFrEF. Underwent repeat DCCV. Initially transition to metoprolol alongside the amiodarone but after cardioversion was having episodes of bradycardia and metoprolol was discontinued. Started on amlodipine 5 mg daily for blood pressure management and Jardiance 10 mg daily. Patient was overdiuresed while inpatient and will hold off on diuresis today with plans to restart Bumex 1 mg daily tomorrow. Will have repeat BMP in 3 to 5 days to monitor kidney function and electrolytes. Will require 1-2L oxygen on discharge as she requires 1-2 L with ambulation to maintain oxygen >90%, will likely improve with increased activity and should be monitored outpatient for discontinuation of oxygen. Follow up with Cardiology on 07/23/24. Allergies alendronate (Moderate) Myalgia amLODIPine (Mild) Edema Periactin Numbness Consults Consult to Physician - Ordered -- 06/28/24 6:08:00 EDT, HARRY BAILON MD, Routine, recurrent afib Imaging Results and Diagnostics CT Thorax w/o Contrast Result Date: June 29, 2024 Verified By: ROCCO WILSON MD CLINICAL STATEMENT: IMPRESSION: Small effusions with associated atelectasis and or consolidation, new sincethe comparison.. Small area of consolidation in the left lower lobe. Mild emphysematous disease. Subjective NAEO. Physical Exam Vitals and Measurements T: 36.6 C (Oral) TMIN: 36.5 C (Oral) TMAX: 36.7 C (Oral) HR: 60 (Monitored) RR: 18 BP: 150/62 SpO2:95% Weight Dosing Weight: 63.9 kg (06/28/24) Dosing Weight: 63.9 kg (06/28/24) General: AAOX3, NAD HEENT: Anicteric sclera, MMM Neck: Trachea midline, no JVD appreciated CVS: RRR, normal S1/S2, no murmurs/rubs/gallops Lung: CTAB, no wheezes/rhonchi/rales Abd: Soft, NT/ND Extrem: WWP, no LE edema Skin: Warm, Intact Neuro: AAOX3, spontaneous movement of all extremities Psych: Appropriate mood & affect Code Status Code Status - Ordered -- 06/28/24 5:13:00 EDT, Full Code, Constant Order Admission Date 06/28/2024 Discharge Date 07/01/2024 Patient Instructions 1. Kindly follow up with your Primary Care Physician and Volleyball Coach as recommended. _ 2. Some of your medications may have changed during this hospital stay. Please go over these changes with your nurse before you leave the hospital. _ 3. Take all your medications as prescribed. If you have any queries, please reach out to our [facility] office at [phone] for general queries and [phone] for medication refills. 4. All your medical records and results are available to you through our [facility] Patient Portal. Tosign up, please visit [email or web address] Medications New Prescription amLODIPine (amLODIPine 5 mg oral tablet)1 tab(s) by mouth once a day. Refills: 3. bumetanide (bumetanide 1 mg oral tablet)1 tab(s) by mouth once a day. Refills: 3. Unchanged amiodarone (amiodarone 200 mg oral tablet)1 tab(s) by mouth once a day. Refills: 3. apixaban (Eliquis 5 mg oral tablet)1 tab(s) by mouth two (2) times a day. Refills: 3. denosumab (Prolia 60 mg/mL subcutaneous solution)1 Milliliter Subcutaneous every 6 months. Refills:0. empagliflozin (Jardiance 10 mg oral tablet)1 tab(s) by mouth once a day (in the morning). Refills: 3. potassium chloride (potassium chloride 20 mEq oral tablet, extended release)1 tab(s) by mouth once a day. Take with food. Refills: 3. Discontinued dilTIAZem (Cardizem CD 240 mg/24 hours oral capsule, extended release)1 cap by mouth once a day. Refills: 3. Follow Up Follow Up with EMILIANO LEAL Where:[address] [place] [address]- [phone] Business (1) Additional Information: PLEASE CALL THIS OFFICE TO SCHEDULE A HOSPITAL FOLLOW UP APPOINTMENT. [facility] with [facility] has been arranged for you. Call [phone] with any questions Additional Information: Home Physcial therapy has been arranged. Follow Up with readmission score is 12 Follow Up with ASIM DIEHL APRN-JOI When:07/23/2024 03:30 PM EDT Where:[address] [facility] [address] [place] [address]- Follow Up Appointments No qualifying data available. Follow Up Labs/Studies Discharge Labs Discharge Outpatient Labwork - Ordered -- BMP, Mag, Electrolyte follow up, follow-up within: 3-5 days, 07/01/24 12:37:00 EDT Discharge Studies No Follow-up Studies Discharge Diet Discharge Diet - Ordered -- No changes were made to your diet during your hospital stay. Please resume your pre hospitalization diet on discharge., 07/01/24 12:37:00 EDT Discharge Activity Discharge Activity - Ordered -- NO activity restrictions, 07/01/24 12:37:00 EDT Condition on Discharge Fair Discharge Disposition Home Digitally Signed by GEETA BEASLEY MD on 07/01/2024 01:11 PM Digitally Signed by GEETA BEASLEY MD on 07/01/2024 01:15 PM [phone] Discharge Instructions Thank you for allowing [facility] to assist you with your healthcare needs. The following is importantdischarge information regarding your hospital visit. Your Care Team EMILIANO LEAL DO What to do next Instructions From Your Doctor 1. Kindly follow up with your Primary Care Physician and Volleyball Coach as recommended. You will needto do labwork in 3-5 days after being discharged. 2. Some of your medications may have changed during this hospital stay. Please go over these changes with your nurse before you leave the hospital. _ 3. Take all your medications as prescribed. If you have any queries, please reach out to our [facility] office at [phone] for general queries and [phone] for medication refills. 4. All your medical records and results are available to you through our [facility] Patient Portal. Tosign up, please visit [email or web address] Scheduled Follow-Up Appointments Appointment Type When With Where Contact Information StatusCV OV 07/10/2024 03:00 PM EDT ASIM DIEHL [facility] Confirmed PC OV 07/19/2024 03:30 PM EDT EMILIANO LEAL DO [address] [phone] Confirmed CV OV 08/07/2024 03:00 PM EDT ASIM DIEHL [facility] Confirmed CV OV 09/11/2024 01:00 PM EDT [facility] Up with [facility] [phone] for your oxygen questions When:Within 1-2 days Follow Up with EMILIANO LEAL Where:[address] [place] [address]- [phone] Business (1) Additional Information: PLEASE CALL THIS OFFICE TO SCHEDULE A HOSPITAL FOLLOW UP APPOINTMENT. Follow Up with [facility] has been arranged for you. Call [phone] with any questions Additional Information: Home Physcial therapy has been arranged. Follow Up with readmission score is 12 Follow Up with ASIM DIEHL When:07/23/2024 03:30 PM EDT Where:[address] [place] [address]- The Following Activity and Diet Have Been Ordered for You Discharge Activity - Ordered -- NO activity restrictions, 07/01/24 12:37:00 EDT Discharge Diet - Ordered -- No changes were made to your diet during your hospital stay. Please resume your pre hospitalization diet on discharge., 07/01/24 12:37:00 EDT The Following Equipment Has Been Ordered for You Discharge Home Equipment Discharge Oxygen Therapy - Ordered -- Oxygen (CONTINUOUS), Mobile in the Home, Nasal Cannula, 2 liters per minute, 6 month(s), portable O2, 07/01/24 13:12:00 EDT The Following Treatments Have Been Ordered for You Discharge Labs Discharge Outpatient Labwork - Ordered -- BMP, Mag, Electrolyte follow up, follow-up within: 3-5 days, 07/01/24 12:37:00 EDT Discharge Radiology No qualifying data available. Other Therapies No qualifying data available. Post Acute Orders No qualifying data available. Someone Will Contact You Regarding These Home Health Referrals No home referrals have been ordered for you. No one will call you. Allergies alendronate (Moderate) Myalgia amLODIPine (Mild) Edema Periactin Numbness Medications Please ask your primary doctor or pharmacist before taking any other medication not listed, including over the counter drugs, herbal medications, vitamins and or supplements as they may interact withyour home medications. What How Much When Why Instructions Last Dose New amLODIPine (amLODIPine 5 mg oral tablet) 1 tab(s) by mouth Once a day Refills: 3 Pickup at [facility] New bumetanide (bumetanide 1 mg oral tablet) 1 tab(s) by mouth Once a day Refills: 3 Pickup at [facility] Unchanged amiodarone (amiodarone 200 mg oral tablet) 1 tab(s) by mouth Once a day Unchanged apixaban (Eliquis 5 mg oral tablet) 1 tab(s) by mouth Two (2) times a day Unchanged denosumab (Prolia 60 mg/ mL subcutaneous solution) 1 Milliliter Subcutaneous Every 6 months Osteoporosis Unchanged empagliflozin (Jardiance 10 mg oral tablet) 1 tab(s) by mouth Once a day (in the morning) Unchanged potassium chloride (potassium chloride 20 mEq oral tablet, extended release) 1 tab(s) by mouth Once a day Take with food Pharmacy Information [facility]: [address], [place] [id number] [phone] What How Much When Comments Stop Taking dilTIAZem (Cardizem CD 240 mg/ 24 hours oral capsule, extended release) 1 cap by mouth Once a day Please take this list to your next doctor s visit. Bring all medications you take, including over the counter medications, herbals and other supplements with you to your doctor s visit. Patients and families are reminded to discard old lists and to update any records with all medication providers or retail pharmacies. Education Materials Home Oxygen Use, Adult When a medical condition keeps you from getting enough oxygen, your health care provider may instruct you to take extra oxygen at home. Your health care provider will let you know: When to take oxygen. For how long to take oxygen. How quickly oxygen should be delivered (flow rate), in liters per minute (LPM or L/M). Home oxygen can be given through: A mask. A nasal cannula. This is a device or tube that goes in the nostrils. A transtracheal catheter. This is a small, flexible tube placed in the trachea. A tracheostomy. This is a surgically made opening in the trachea. These devices are connected with tubing to an oxygen source, such as: A tank. Tanks hold oxygen in gas form. They must be replaced when the oxygen is used up. A liquid oxygen device. This holds oxygen in liquid form. It must be replaced when the oxygen is used up. An oxygen concentrator machine. This filters oxygen in the room. It uses electricity, so you must have a backup cylinder of oxygen in case the power goes out. Supplies needed: To use oxygen, you will need: A mask, nasal cannula, transtracheal catheter, or tracheostomy. An oxygen tank, a liquid oxygen device, or an oxygen concentrator. The tape that your health care provider recommends (optional). If you use a transtracheal catheter and your prescribed flow rate is 1 LPM or greater, you will also need a humidifier. Risks and complications Fire. This can happen if the oxygen is exposed to a heat source, flame, or spark. Injury to skin. This can happen if liquid oxygen touches your skin. Organ damage. This can happen if you get too little oxygen. How to use oxygen Your health care provider or a pharmaceutical specialty representative from your medical billing assistant company will show you how touse your oxygen device. Follow her or his instructions. The instructions may look something like this: 1. Wash your hands. 2. If you use an oxygen concentrator, make sure it is plugged in. 3. Place one end of the tube into the port on the tank, device, or machine. 4. Place the mask over your nose and mouth. Or, place the nasal cannula and secure it with tape if instructed. If you use a tracheostomy or transtracheal catheter, connect it to the oxygen source as directed. 5. Make sure the liter-flow setting on the machine is at the level prescribed by your health care provider. 6. Turn on the machine or adjust the knob on the tank or device to the correct liter-flow setting. 7. When you are done, turn off and unplug the machine, or turn the knob to OFF. How to clean and care for the oxygen supplies Nasal cannula Clean it with a warm, wet cloth daily or as needed. Wash it with a liquid soap once a week. Rinse it thoroughly once or twice a week. Replace it every 2 4 weeks. If you have an infection, such as a cold or pneumonia, change the cannula when you get better. Mask Replace it every 2 4 weeks. If you have an infection, such as a cold or pneumonia, change the mask when you get better. Humidifier bottle Wash the bottle between each refill: ? Wash it with soap and warm water. ? Rinse it thoroughly. ? Disinfect it and its top. ? Air-dry it. Make sure it is dry before you refill it. Oxygen concentrator Clean the air filter at least twice a week according to directions from your home medical equipmentand service company. Wipe down the cabinet every day. To do this: ? Unplug the unit. ? Wipe down the cabinet with a damp cloth. ? Dry the cabinet. Other equipment Change any extra tubing every 1 3 months. Follow instructions from your health care provider about taking care of any other equipment. Safety tips Fire safety tips Keep your oxygen and oxygen supplies at least 5 ft away from sources of heat, flames, and monreal atall times. Do not allow smoking near your oxygen. Put up no smoking signs in your home. Avoid smoking areas when in public. Do not use materials that can burn (are flammable) while you use oxygen. When you go to a restaurant with portable oxygen, ask to be seated in the nonsmoking section. Keep a fire extinguisher close by. Let your fire department know that you have oxygen in your home. Test your home smoke detectors regularly. Traveling Secure your oxygen tank in the vehicle so that it does not move around. Follow instructions from your medical billing assistant company about how to safely secure your tank. Make sure you have enough oxygen for the amount of time you will be away from home. If you are planning air travel, contact the airline to find out if they allow the use of an approved portable oxygen concentrator. You may also need documents from your health care provider and medical billing assistant company before you travel. General safety tips If you use an oxygen cylinder, make sure it is in a stand or secured to an object that will not move (fixed object). If you use liquid oxygen, make sure its container is kept upright. If you use an oxygen concentrator: ? Tell your electric company. Make sure you are given priority service in the event that your power goes out. ? Avoid using extension cords, if possible. Follow these instructions at home: Use oxygen only as told by your health care provider. Do not use alcohol or other drugs that make you relax (sedating drugs) unless instructed. They can slow down your breathing rate and make it hard to get in enough oxygen. Know how and when to order a refill of oxygen. Always keep a spare tank of oxygen. Plan ahead for holidays when you may not be able to get a prescription filled. Use water-based lubricants on your lips or nostrils. Do not use oil-based products like petroleum jelly. To prevent skin irritation on your cheeks or behind your ears, tuck some gauze under the tubing. Contact a health care provider if: You get headaches often. You have shortness of breath. You have a lasting cough. You have anxiety. You are sleepy all the time. You develop an illness that affects your breathing. You cannot exercise at your regular level. You are restless. You have difficult or irregular breathing, and it is getting worse. You have a fever. You have persistent redness under your nose. Get help right away if: You are confused. You have blue lips or fingernails. You are struggling to breathe. Summary Your health care provider or a pharmaceutical specialty representative from your medical billing assistant company will show you how touse your oxygen device. Follow her or his instructions. If you use an oxygen concentrator, make sure it is plugged in. Make sure the liter-flow setting on the machine is at the level prescribed by your health care provider. Keep your oxygen and oxygen supplies at least 5 ft away from sources of heat, flames, and monreal atall times. This information is not intended to replace advice given to you by your health care provider. Make sure you discuss any questions you have with your health care provider. Document Released: 06/17/2004 Document Revised: 09/14/2018 Document Reviewed: 10/19/2016 [employer] Patient Education 2020 [employer] Heart Failure Eating Plan Heart failure, also called congestive heart failure, occurs when your heart does not pump blood well enough to meet your body's needs for oxygen-rich blood. Heart failure is a long-term (chronic) condition. Living with heart failure can be challenging. However, following your health care provider'sinstructions about a healthy lifestyle and working with a diet and wildland fire operations specialist (dietitian) to choose the right foods may help to improve your symptoms. What are tips for following this plan? Reading food labels Check food labels for the amount of sodium per serving. Choose foods that have less than 140 mg (milligrams) of sodium in each serving. Check food labels for the number of calories per serving. This is important if you need to limit your daily calorie intake to lose weight. Check food labels for the serving size. If you eat more than one serving, you will be eating more sodium and calories than what is listed on the label. Look for foods that are labeled as sodium-free, very low sodium, or low sodium. ? Foods labeled as reduced sodium or lightly salted may still have more sodium than what is recommended for you. Cooking Avoid adding salt when cooking. Ask your health care provider or dietitian before using salt substitutes. Season food with salt-free seasonings, spices, or herbs. Check the label of seasoning mixes to makesure they do not contain salt. Cook with heart-healthy oils, such as olive, canola, soybean, or sunflower oil. Do not kelley foods. Cook foods using low-fat methods, such as baking, boiling, grilling, and broiling. Limit unhealthy fats when cooking by: ? Removing the skin from poultry, such as chicken. ? Removing all visible fats from meats. ? Skimming the fat off from stews, soups, and gravies before serving them. Meal planning Limit your intake of: ? Processed, canned, or pre-packaged foods. ? Foods that are high in trans fat, such as fried foods. ? Sweets, desserts, sugary drinks, and other foods with added sugar. ? Full-fat dairy products, such as whole milk. Eat a balanced diet that includes: ? 4 5 servings of fruit each day and 4 5 servings of vegetables each day. At each meal, try to fill half of your plate with fruits and vegetables. ? Up to 6 8 servings of whole grains each day. ? Up to 2 servings of lean meat, poultry, or fish each day. One serving of meat is equal to 3 oz. This is about the same size as a deck of cards. ? 2 servings of low-fat dairy each day. ? Heart-healthy fats. Healthy fats called omega-3 fatty acids are found in foods such as flaxseed andcold-water fish like sardines, salmon, and mackerel. Aim to eat 25 35 g (grams) of fiber a day. Foods that are high in fiber include apples, broccoli, carrots, beans, peas, and whole grains. Do not add salt or condiments that contain salt (such as soy sauce) to foods before eating. When eating at a restaurant, ask that your food be prepared with less salt or no salt, if possible. Try to eat 2 or more vegetarian meals each week. Eat more home-cooked food and eat less restaurant, buffet, and fast food. General information Do not eat more than 2,300 mg of salt (sodium) a day. The amount of sodium that is recommended for you may be lower, depending on your condition. Maintain a healthy body weight as directed. Ask your health care provider what a healthy weight is for you. ? Check your weight every day. ? Work with your health care provider and dietitian to make a plan that is right for you to lose weight or maintain your current weight. Limit how much fluid you drink. Ask your health care provider or dietitian how much fluid you can have each day. Limit or avoid alcohol as told by your health care provider or dietitian. Recommended foods The items listed may not be a complete list. Talk with your dietitian about what dietary choices are best for you. Fruits All fresh, frozen, and canned fruits. Dried fruits, such as raisins, prunes, and cranberries. Vegetables All fresh vegetables. Vegetables that are frozen without sauce or added salt. Low-sodium or sodium-free canned vegetables. Grains Bread with less than 80 mg of sodium per slice. Whole-wheat pasta, quinoa, and brown rice. Oats andoatmeal. Barley. Millet. Grits and cream of wheat. Whole- grain and whole-wheat cold cereal. Meats and other protein foods Lean cuts of meat. Skinless chicken and turkey. Fish with high omega-3 fatty acids, such as salmon,sardines, and other cold-water fishes. Eggs. Dried beans, peas, and edamame. Unsalted nuts and nut butters. Dairy Low-fat or nonfat (skim) milk and dried milk. Rice milk, soy milk, and almond milk. Low-fat or nonfat yogurt. Small amounts of reduced-sodium block cheese. Low-sodium cottage cheese. Fats and oils [place], canola, soybean, flaxseed, or sunflower oil. Avocado. Sweets and desserts Apple sauce. Granola bars. Sugar-free pudding and gelatin. Frozen fruit bars. Seasoning and other foods Fresh and dried herbs. Lemon or port graham juice. Vinegar. Low-sodium ketchup. Salt- free marinades, saladdressings, sauces, and seasonings. The items listed above may not be a complete list of foods and beverages you can eat. Contact a dietitian for more information. Foods to avoid The items listed may not be a complete list. Talk with your dietitian about what dietary choices are best for you. Fruits Fruits that are dried with sodium-containing preservatives. Vegetables Canned vegetables. Frozen vegetables with sauce or seasonings. Creamed vegetables. Somali fries. Onion rings. Pickled vegetables and sauerkraut. Grains Bread with more than 80 mg of sodium per slice. Hot or cold cereal with more than 140 mg sodium perserving. Salted pretzels and crackers. Pre-packaged breadcrumbs. Bagels, croissants, and biscuits. Meats and other protein foods Ribs and chicken wings. Duenas, ham, pepperoni, bologna, salami, and packaged luncheon meats. Hot dogs, bratwurst, and sausage. Canned meat. Smoked meat and fish. Salted nuts and seeds. Dairy Whole milk, [id number], and cream. Buttermilk. Processed cheese, cheese spreads, and cheese curds. Regular cottage cheese. Feta cheese. Shredded cheese. String cheese. Fats and oils Butter, lard, shortening, ghee, and duenas fat. Canned and packaged gravies. Seasoning and other foods Onion salt, garlic salt, table salt, and sea salt. Marinades. Regular salad dressings. Relishes, pickles, and olives. Meat flavorings and tenderizers, and bouillon cubes. Horseradish, ketchup, and mustard. [facility] sauce. Teriyaki sauce, soy sauce (including reduced sodium). Hot sauce and Tabasco sauce. Steak sauce, fish sauce, oyster sauce, and cocktail sauce. Taco seasonings. Barbecue sauce. Tartar sauce. The items listed above may not be a complete list of foods and beverages you should avoid. Contact a dietitian for more information. Summary A heart failure eating plan includes changes that limit your intake of sodium and unhealthy fat, and it may help you lose weight or maintain a healthy weight. Your health care provider may also recommend limiting how much fluid you drink. Most people with heart failure should eat no more than 2,300 mg of salt (sodium) a day. The amount of sodium that is recommended for you may be lower, depending on your condition. Contact your health care provider or dietitian before making any major changes to your diet. This information is not intended to replace advice given to you by your health care provider. Make sure you discuss any questions you have with your health care provider. Document Released: 08/12/2017 Document Revised: 05/24/2019 Document Reviewed: 08/12/2017 [employer] Patient Education 2020 [employer]. Heart Failure Exacerbation Heart failure is a condition in which the heart does not fill up with enough blood, and therefore does not pump enough blood and oxygen to the body. When this happens, parts of the body do not get the blood and oxygen they need to function properly. This can cause symptoms such as breathing problems, fatigue, swelling, and confusion. Heart failure exacerbation refers to heart failure symptoms that get worse. The symptoms may get worse suddenly or develop slowly over time. Heart failure exacerbation is a serious medical problem that should be treated right away. What are the causes? A heart failure exacerbation can be triggered by: Not taking your heart failure medicines correctly. Infections. Eating an unhealthy diet or a diet that is high in salt (sodium). Drinking too much fluid. Drinking alcohol. Taking illegal drugs, such as cocaine or methamphetamine. Not exercising. Other causes include: Other heart conditions such as an irregular heartbeat (arrhythmia). Anemia. Other medical problems, such as kidney failure. Sometimes the cause of the exacerbation is not known. What are the signs or symptoms? When heart failure symptoms suddenly or slowly get worse, this may be a sign of heart failure exacerbation. Symptoms of heart failure include: Breathing problems or shortness of breath. Chronic coughing or wheezing. Fatigue. Nausea or lack of appetite. Feeling light-headed. Confusion or memory loss. Increased heart rate or irregular heartbeat. Buildup of fluid in the legs, ankles, feet, or abdomen. Difficulty breathing when lying down. How is this diagnosed? This condition is diagnosed based on: Your symptoms and medical history. A physical exam. You may also have tests, including: Electrocardiogram (ECG). This test measures the electrical activity of your heart. Echocardiogram. This test uses sound waves to take a picture of your heart to see how well it works. Blood tests. Imaging tests, such as: ? Chest X-ray. ? MRI. ? Ultrasound. Stress test. This test examines how well your heart functions when you exercise. Your heart is monitored while you exercise on a treadmill or exercise bike. If you cannot exercise, medicines may be used to increase your heartbeat in place of exercise. Cardiac catheterization. During this test, a thin, flexible tube (catheter) is inserted into a blood vessel and threaded up to your heart. This test allows your health care provider to check the arteries that lead to your heart (coronary arteries). Right heart catheterization. During this test, the pressure in your heart is measured. How is this treated? This condition may be treated by: Adjusting your heart medicines. Maintaining a healthy lifestyle. This includes: ? Eating a heart-healthy diet that is low in sodium. ? Not using any products that contain nicotine or tobacco, such as cigarettes and e-cigarettes. ? Regular exercise. ? Monitoring your fluid intake. ? Monitoring your weight and reporting changes to your health care provider. Treating sleep apnea, if you have this condition. Surgery. This may include: ? Implanting a device that helps both sides of your heart contract at the same time (cardiac resynchronization therapy device). This can help with heart function and relieve heart failure symptoms. ? Implanting a device that can correct heart rhythm problems (implantable cardioverter defibrillator). ? Connecting a device to your heart to help it pump blood (ventricular assist device). ? Heart transplant. Follow these instructions at home: Medicines Take [id number] and prescription medicines only as told by your health care provider. Do not stop taking your medicines or change the amount you take. If you are having problems or sideeffects from your medicines, talk to your health care provider. If you are having difficulty paying for your medicines, contact a licensed clinical social worker or your clinic. There are many programs to assist with medicine costs. Talk to your health care provider before starting any new medicines or supplements. Make sure your health care provider and pharmacist have a list of all the medicines you are taking. Eating and drinking Avoid drinking alcohol. Eat a heart-healthy diet as told by your health care provider. This includes: ? Plenty of fruits and vegetables. ? Lean proteins. ? Low-fat dairy. ? Whole grains. ? Foods that are low in sodium. Activity Exercise regularly as told by your health care provider. Balance exercise with rest. Ask your health care provider what activities are safe for you. This includes sexual activity, exercise, and daily tasks at home or work. Lifestyle Do not use any products that contain nicotine or tobacco, such as cigarettes and e-cigarettes. If you need help quitting, ask your health care provider. Maintain a healthy weight. Ask your health care provider what weight is healthy for you. Consider joining a patient support group. This can help with emotional problems you may have, such as stress and anxiety. General instructions Talk to your health care provider about flu and pneumonia vaccines. Keep a list of medicines that you are taking. This may help in emergency situations. Keep all follow-up visits as told by your health care provider. This is important. Contact a health care provider if: You have questions about your medicines or you miss a dose. You feel anxious, depressed, or stressed. You have swelling in your feet, ankles, legs, or abdomen. You have shortness of breath during activity or exercise. You have a cough. You have a fever. You have trouble sleeping. You gain 2 3 lb (1 1.4 kg) in 24 hours or 5 lb (2.3 kg) in a week. Get help right away if: You have chest pain. You have shortness of breath while resting. You have severe fatigue. You are confused. You have severe dizziness. You have a rapid or irregular heartbeat. You have nausea or you vomit. You have a cough that is worse at night or you cannot lie flat. You have a cough that will not go away. You have severe depression or sadness. Summary When heart failure symptoms get worse, it is called heart failure exacerbation. Common causes of this condition include taking medicines incorrectly, infections, and drinking alcohol. This condition may be treated by adjusting medicines, maintaining a healthy lifestyle, or surgery. Do not stop taking your medicines or change the amount you take. If you are having problems or sideeffects from your medicines, talk to your health care provider. This information is not intended to replace advice given to you by your health care provider. Make sure you discuss any questions you have with your health care provider. Document Released: 08/09/2017 Document Revised: 03/10/2018 Document Reviewed: 08/09/2017 [employer] Patient Education 2020 [employer] Atrial Fibrillation Atrial fibrillation is a type of irregular or rapid heartbeat (arrhythmia). In atrial fibrillation,the top part of the heart (atria) quivers in a chaotic pattern. This makes the heart unable to pumpblood normally. Having atrial fibrillation can increase your risk for other health problems, such as: Blood can pool in the atria and form clots. If a clot travels to the brain, it can cause a stroke. The heart muscle may weaken from the irregular blood flow. This can cause heart failure. Atrial fibrillation may start suddenly and stop on its own, or it may become a long-lasting problem. What are the causes? This condition is caused by some heart-related conditions or procedures, including: High blood pressure. This is the most common cause. Heart failure. Heart valve conditions. Inflammation of the sac that surrounds the heart (pericarditis). Heart surgery. Coronary artery disease. Certain heart rhythm disorders, such as Patiño Parkinson White syndrome. Other causes include: Pneumonia. Obstructive sleep apnea. Lung cancer. Thyroid problems, especially if the thyroid is overactive (hyperthyroidism). Excessive alcohol or drug use. Sometimes, the cause of this condition is not known. What increases the risk? This condition is more likely to develop in: Older people. People who smoke. People who have diabetes mellitus. People who are overweight (obese). Athletes who exercise vigorously. People who have a family history. What are the signs or symptoms? Symptoms of this condition include: A feeling that your heart is beating rapidly or irregularly. A feeling of discomfort or pain in your chest. Shortness of breath. Sudden light-headedness or weakness. Getting tired easily during exercise. In some cases, there are no symptoms. How is this diagnosed? Your health care provider may be able to detect atrial fibrillation when taking your pulse. If detected, this condition may be diagnosed with: Electrocardiogram (ECG). Ambulatory clinical research monitor. This device records your heartbeats for 24 hours or more. Transthoracic echocardiogram (TTE) to evaluate how blood flows through your heart. Transesophageal echocardiogram (WARREN) to view more detailed images of your heart. A stress test. Imaging tests, such as a CT scan or chest X-ray. Blood tests. How is this treated? This condition may be treated with: Medicines to slow down the heart rate or bring the heart's rhythm back to normal. Medicines to prevent blood clots from forming. Electrical cardioversion. This delivers a low-energy shock to the heart to reset its rhythm. Ablation. This procedure destroys the part of the heart tissue that sends abnormal signals. Left atrial appendage occlusion/excision. This seals off a common place in the atria where blood clots can form (left atrial appendage). The goal of treatment is to prevent blood clots from forming and to keep your heart beating at a normal rate and rhythm. Treatment depends on underlying medical conditions and how you feel when you are experiencing fibrillation. Follow these instructions at home: Medicines Take over-the counter and prescription medicines only as told by your health care provider. If your health care provider prescribed a blood-thinning medicine (anticoagulant), take it exactly as told. Taking too much blood-thinning medicine can cause bleeding. Taking too little can enable a blood clot to form and travel to the brain, causing a stroke. Lifestyle Do not use any products that contain nicotine or tobacco, such as cigarettes and e-cigarettes. If you need help quitting, ask your health care provider. Do not drink beverages that contain caffeine, such as coffee, soda, and tea. Follow diet instructions as told by your health care provider. Exercise regularly as told by your health care provider. Do not drink alcohol. General instructions If you have obstructive sleep apnea, manage your condition as told by your health care provider. Maintain a healthy weight. Do not use diet pills unless your health care provider approves. Diet pills may make heart problems worse. Keep all follow-up visits as told by your health care provider. This is important. Contact a health care provider if you: Notice a change in the rate, rhythm, or strength of your heartbeat. Are taking an anticoagulant and you notice increased bruising. Tire more easily when you exercise or exert yourself. Have a sudden change in weight. Get help right away if you have: Chest pain, abdominal pain, sweating, or weakness. Difficulty breathing. Blood in your vomit, stool (feces), or urine. Any symptoms of a stroke. BE FAST is an easy way to remember the main warning signs of a stroke: ? B - Balance. Signs are dizziness, sudden trouble walking, or loss of balance. ? E - Eyes. Signs are trouble seeing or a sudden change in vision. ? F - Face. Signs are sudden weakness or numbness of the face, or the face or eyelid drooping on one side. ? A - Arms. Signs are weakness or numbness in an arm. This happens suddenly and usually on one side of the body. ? S - Speech. Signs are sudden trouble speaking, slurred speech, or trouble understanding what peoplesay. ? T - Time. Time to call emergency services. Write down what time symptoms started. Other signs of a stroke, such as: ? A sudden, severe headache with no known cause. ? Nausea or vomiting. ? Seizure. These symptoms may represent a serious problem that is an emergency. Do not wait to see if the symptoms will go away. Get medical help right away. Call your local emergency services (911 in the [place] Do not drive yourself to the hospital. Summary Atrial fibrillation is a type of irregular or rapid heartbeat (arrhythmia). Symptoms include a feeling that your heart is beating fast or irregularly. In some cases, you may not have symptoms. The condition is treated with medicines to slow down the heart rate or bring the heart's rhythm back to normal. You may also need blood-thinning medicines to prevent blood clots. Get help right away if you have symptoms or signs of a stroke. This information is not intended to replace advice given to you by your health care provider. Make sure you discuss any questions you have with your health care provider. Document Released: 03/28/2006 Document Revised: 05/18/2018 Document Reviewed: 05/19/2018 [employer] Patient Education 2020 [employer] Additional Information VACCINATE! IT SAVES LIVES! Members of the community who have not yet received the COVID-19 vaccine and would like to receive it can visit one of [facility] vaccine clinics. There are many vaccine clinic locations within the [facility]. For locations and available times, please visit [email or web address].[email or web address] It is important to note that some COVID mobile vaccine clinics are held outdoors and may be canceled in rainy or stormy conditions. To learn more about pediatric vaccinations (ages 5-11), we invite you to visit the [facility] webpage. [email or web address] learn more about the COVID-19 vaccine, we invite you to visit the CDC website for a list of frequently asked questions.https://www.cdc.gov/coronavirus/2019-ncov/vaccines/faq.html [employer] Patient Portal Access Instructions: Stay connected with your healthcare team and access your personal medical information anytime with the [employer] Patient Portal. Please follow the directions below to create your [employer] account: 1.Access the email account you provided upon registration to the hospital/physician office.2.Look for an invitation email from [facility].3.Open the email and access the invitation link: AcceptInvitation to [employer].4.Fill in the required tripp to create your account. To access your account, visit [employer]. Click the blue button labeled Access Patient Portal and then log in with the username and password that you created in the steps above. You will be able to view your test results, lab results, a summary of your visits, upcoming appointments and more. There is also a convenient messaging option where you can send secure messages to your [employer]. In addition, you will have the ability to download any documents or summaries to your computer and/or send the information securely to a physician. Remember that your healthcare information is confidential, so carefully consider who you will allowto register on the [employer] Patient Portal for access to your information. You can also access the [employer] Patient Portal on the [employer]. Simply click on Patient Portal and then log into your account. If you would like to receive a full copy of your medical records, please contact the [facility] Medical Records Department by calling [phone], Tuesday through Tuesday between 8 a.m. and 4:30 p.m. HOW TO SAFELY DISPOSE OF PRESCRIPTION MEDICATIONS Please use one of the following methods to safely dispose of your unused medications. 1.Use a drug disposal kit: the drug disposal pouch allows you to safely discard your old and unuseddrugs. Ask your nurse to give you one when you are discharged.2.Visit a local take-back location: Many local pharmacies and police departments have programs that collect old and unwanted prescriptiondrugs. Call your local pharmacy or go to http://CueSongs.cortical.io/[email or web address] to find one close to you.3.Make use of household items: Use cat litter or old coffee grounds to dispose medications if other options arenot available. Mix your drugs with these household products, seal them in an airtight container andthrow it into the garbage. Call [facility]: [phone] to be sure your drugs can be disposed of in this way. Some medicines may require a different approach.4.Never flush your medications down the toilet. IF YOU HAVE BEEN PRESCRIBED AN OPIOID FOR PAIN If you have been prescribed an opioid (such as hydrocodone, oxycodone or morphine), it is critical to understand the possible side effects and risks of opioid pain medications. Even when taken as directed, opioids can have several side effects including: Tolerance, meaning you might need to take more of a medication for the same pain relief. Nausea, vomiting and/or constipation. Sleepiness, dizziness, dry mouth, confusion, depression or itching. Physical dependence, meaning you have withdrawal symptoms when a medication is stopped, can develop within a few days. KNOW YOUR RESPONSIBILITIES It is important to know exactly how much and how often to take the opioid pain medications you are prescribed. Never take opioids in higher amounts or more often than prescribed. Do not combine opioids with alcohol or other drugs that cause drowsiness, such as benzodiazepines, also known as benzos, including diazepam and alprazolam, muscle relaxants or sleep aids. Never sell or share prescription opioids. This is illegal. Store opioids in a secure place and out of reach of others (including children, family, friends and visitors). The last page of this document has been signed and retained as a CHART COPY. Signatures Patient Education Materials Home Oxygen Use, Adult Heart Failure Eating Plan Heart Failure Exacerbation Atrial Fibrillation Medication Leaflets My discharge plan and instructions have been reviewed and explained to me and I,JED SEWELL understand my current condition and have read and understand these discharge instructions. I have received a written copy of the plan/instructions. If I have questions, I am aware that I should contact my doctor. 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 During hospitalization was continued on amiodarone loading and diuresed with IV Lasix 40 mg twice daily. Diltiazem was discontinued due to history of HFrEF. Underwent repeat DCCV. Initially transition to metoprolol alongside the amiodarone but after cardioversion was having episodes of bradycardia and metoprolol was discontinued. Started on amlodipine 5 mg daily for blood pressure management and Jardiance 10 mg daily. Patient was overdiuresed while inpatient and will hold off on diuresis today with plans to restart Bumex 1 mg daily tomorrow. Will have repeat BMP in 3 to 5 days to monitor kidney function and electrolytes. Will require 1-2L oxygen on discharge as she requires 1-2 L with ambulation to maintain oxygen >90%, will likely improve with increased activity and should be monitored outpatient for discontinuation of oxygen. Follow up with Cardiology on 07/23/24. Allergies alendronate (Moderate) Myalgia amLODIPine (Mild) Edema Periactin Numbness Consults Consult to Physician - Ordered -- 06/28/24 6:08:00 EDT, HARRY BAILON MD, Routine, recurrent afib Imaging Results and Diagnostics CT Thorax w/o Contrast Result Date: June 29, 2024 Verified By: ROCCO WILSON MD CLINICAL STATEMENT: IMPRESSION: Small effusions with associated atelectasis and or consolidation, new sincethe comparison.. Small area of consolidation in the left lower lobe. Mild emphysematous disease. Subjective NAEO. Physical Exam Vitals and Measurements T: 36.6 C (Oral) TMIN: 36.5 C (Oral) TMAX: 36.7 C (Oral) HR: 60 (Monitored) RR: 18 BP: 150/62 SpO2:95% Weight Dosing Weight: 63.9 kg (06/28/24) Dosing Weight: 63.9 kg (06/28/24) General: AAOX3, NAD HEENT: Anicteric sclera, MMM Neck: Trachea midline, no JVD appreciated CVS: RRR, normal S1/S2, no murmurs/rubs/gallops Lung: CTAB, no wheezes/rhonchi/rales Abd: Soft, NT/ND Extrem: WWP, no LE edema Skin: Warm, Intact Neuro: AAOX3, spontaneous movement of all extremities Psych: Appropriate mood & affect Code Status Code Status - Ordered -- 06/28/24 5:13:00 EDT, Full Code, Constant Order Admission Date 06/28/2024 Discharge Date 07/01/2024 Patient Instructions 1. Kindly follow up with your Primary Care Physician and Volleyball Coach as recommended. _ 2. Some of your medications may have changed during this hospital stay. Please go over these changes with your nurse before you leave the hospital. _ 3. Take all your medications as prescribed. If you have any queries, please reach out to our [facility] office at [phone] for general queries and [phone] for medication refills. 4. All your medical records and results are available to you through our [facility] Patient Portal. Tosign up, please visit [email or web address] Medications New Prescription amLODIPine (amLODIPine 5 mg oral tablet)1 tab(s) by mouth once a day. Refills: 3. bumetanide (bumetanide 1 mg oral tablet)1 tab(s) by mouth once a day. Refills: 3. Unchanged amiodarone (amiodarone 200 mg oral tablet)1 tab(s) by mouth once a day. Refills: 3. apixaban (Eliquis 5 mg oral tablet)1 tab(s) by mouth two (2) times a day. Refills: 3. denosumab (Prolia 60 mg/mL subcutaneous solution)1 Milliliter Subcutaneous every 6 months. Refills:0. empagliflozin (Jardiance 10 mg oral tablet)1 tab(s) by mouth once a day (in the morning). Refills: 3. potassium chloride (potassium chloride 20 mEq oral tablet, extended release)1 tab(s) by mouth once a day. Take with food. Refills: 3. Discontinued dilTIAZem (Cardizem CD 240 mg/24 hours oral capsule, extended release)1 cap by mouth once a day. Refills: 3. Follow Up Follow Up with EMILIANO LEAL Where:[address] [place] [address]- [phone] Business (1) Additional Information: PLEASE CALL THIS OFFICE TO SCHEDULE A HOSPITAL FOLLOW UP APPOINTMENT. Follow Up with [facility] has been arranged for you. Call [phone] with any questions Additional Information: Home Physcial therapy has been arranged. Follow Up with readmission score is 12 Follow Up with ASIM DIEHL When:07/23/2024 03:30 PM EDT [facility] [facility] [place] [address]- Follow Up Appointments No qualifying data available. Follow Up Labs/Studies Discharge Labs Discharge Outpatient Labwork - Ordered -- BMP, Mag, Electrolyte follow up, follow-up within: 3-5 days, 07/01/24 12:37:00 EDT Discharge Studies No Follow-up Studies Discharge Diet Discharge Diet - Ordered -- No changes were made to your diet during your hospital stay. Please resume your pre hospitalization diet on discharge., 07/01/24 12:37:00 EDT Discharge Activity Discharge Activity - Ordered -- NO activity restrictions, 07/01/24 12:37:00 EDT Condition on Discharge Fair Discharge Disposition Home Digitally Signed by GEETA BEASLEY MD on 07/01/2024 01:11 PM Digitally Signed by GEETA BEASLEY MD on 07/01/2024 01:15 PM [id number] Discharge instructions Patient Education 07/01/2024 10:23:13 Home Oxygen Use, Adult Home Oxygen Use, Adult When a medical condition keeps you from getting enough oxygen, your health care provider may instruct you to take extra oxygen at home. Your health care provider will let you know: When to take oxygen. For how long to take oxygen. How quickly oxygen should be delivered (flow rate), in liters per minute (LPM or L/M). Home oxygen can be given through: A mask. A nasal cannula. This is a device or tube that goes in the nostrils. A transtracheal catheter. This is a small, flexible tube placed in the trachea. A tracheostomy. This is a surgically made opening in the trachea. These devices are connected with tubing to an oxygen source, such as: A tank. Tanks hold oxygen in gas form. They must be replaced when the oxygen is used up. A liquid oxygen device. This holds oxygen in liquid form. It must be replaced when the oxygen is used up. An oxygen concentrator machine. This filters oxygen in the room. It uses electricity, so you must have a backup cylinder of oxygen in case the power goes out. Supplies needed: To use oxygen, you will need: A mask, nasal cannula, transtracheal catheter, or tracheostomy. An oxygen tank, a liquid oxygen device, or an oxygen concentrator. The tape that your health care provider recommends (optional). If you use a transtracheal catheter and your prescribed flow rate is 1 LPM or greater, you will also need a humidifier. Risks and complications Fire. This can happen if the oxygen is exposed to a heat source, flame, or spark. Injury to skin. This can happen if liquid oxygen touches your skin. Organ damage. This can happen if you get too little oxygen. How to use oxygen Your health care provider or a pharmaceutical specialty representative from your medical billing assistant company will show you how touse your oxygen device. Follow her or his instructions. The instructions may look something like this: 1.Wash your hands. 2.If you use an oxygen concentrator, make sure it is plugged in. 3.Place one end of the tube into the port on the tank, device, or machine. 4.Place the mask over your nose and mouth. Or, place the nasal cannula and secure it with tape if instructed. If you use a tracheostomy or transtracheal catheter, connect it to the oxygen source as directed. 5.Make sure the liter-flow setting on the machine is at the level prescribed by your health care provider. 6.Turn on the machine or adjust the knob on the tank or device to the correct liter-flow setting. 7.When you are done, turn off and unplug the machine, or turn the knob to OFF. How to clean and care for the oxygen supplies Nasal cannula Clean it with a warm, wet cloth daily or as needed. Wash it with a liquid soap once a week. Rinse it thoroughly once or twice a week. Replace it every 2 4 weeks. If you have an infection, such as a cold or pneumonia, change the cannula when you get better. Mask Replace it every 2 4 weeks. If you have an infection, such as a cold or pneumonia, change the mask when you get better. Humidifier bottle Wash the bottle between each refill: ?Wash it with soap and warm water. ?Rinse it thoroughly. ?Disinfect it and its top. ?Air-dry it. Make sure it is dry before you refill it. Oxygen concentrator Clean the air filter at least twice a week according to directions from your home medical equipmentand service company. Wipe down the cabinet every day. To do this: ?Unplug the unit. ?Wipe down the cabinet with a damp cloth. ?Dry the cabinet. Other equipment Change any extra tubing every 1 3 months. Follow instructions from your health care provider about taking care of any other equipment. Safety tips Fire safety tips Keep your oxygen and oxygen supplies at least 5 ft away from sources of heat, flames, and monreal atall times. Do not allow smoking near your oxygen. Put up no smoking signs in your home. Avoid smoking areas when in public. Do not use materials that can burn (are flammable) while you use oxygen. When you go to a restaurant with portable oxygen, ask to be seated in the nonsmoking section. Keep a fire extinguisher close by. Let your fire department know that you have oxygen in your home. Test your home smoke detectors regularly. Traveling Secure your oxygen tank in the vehicle so that it does not move around. Follow instructions from your medical billing assistant company about how to safely secure your tank. Make sure you have enough oxygen for the amount of time you will be away from home. If you are planning air travel, contact the airline to find out if they allow the use of an approved portable oxygen concentrator. You may also need documents from your health care provider and medical billing assistant company before you travel. General safety tips If you use an oxygen cylinder, make sure it is in a stand or secured to an object that will not move (fixed object). If you use liquid oxygen, make sure its container is kept upright. If you use an oxygen concentrator: ?Tell your electric company. Make sure you are given priority service in the event that your power goes out. ?Avoid using extension cords, if possible. Follow these instructions at home: Use oxygen only as told by your health care provider. Do not use alcohol or other drugs that make you relax (sedating drugs) unless instructed. They can slow down your breathing rate and make it hard to get in enough oxygen. Know how and when to order a refill of oxygen. Always keep a spare tank of oxygen. Plan ahead for holidays when you may not be able to get a prescription filled. Use water-based lubricants on your lips or nostrils. Do not use oil-based products like petroleum jelly. To prevent skin irritation on your cheeks or behind your ears, tuck some gauze under the tubing. Contact a health care provider if: You get headaches often. You have shortness of breath. You have a lasting cough. You have anxiety. You are sleepy all the time. You develop an illness that affects your breathing. You cannot exercise at your regular level. You are restless. You have difficult or irregular breathing, and it is getting worse. You have a fever. You have persistent redness under your nose. Get help right away if: You are confused. You have blue lips or fingernails. You are struggling to breathe. Summary Your health care provider or a pharmaceutical specialty representative from your medical billing assistant company will show you how touse your oxygen device. Follow her or his instructions. If you use an oxygen concentrator, make sure it is plugged in. Make sure the liter-flow setting on the machine is at the level prescribed by your health care provider. Keep your oxygen and oxygen supplies at least 5 ft away from sources of heat, flames, and monreal atall times. This information is not intended to replace advice given to you by your health care provider. Make sure you discuss any questions you have with your health care provider. Document Released: 06/17/2004 Document Revised: 09/14/2018 Document Reviewed: 10/19/2016 [employer] Patient Education 2020 [employer]. 07/01/2024 10:23:02 Heart Failure Eating Plan Heart Failure Eating Plan Heart failure, also called congestive heart failure, occurs when your heart does not pump blood well enough to meet your body's needs for oxygen-rich blood. Heart failure is a long-term (chronic) condition. Living with heart failure can be challenging. However, following your health care provider'sinstructions about a healthy lifestyle and working with a diet and wildland fire operations specialist (dietitian) to choose the right foods may help to improve your symptoms. What are tips for following this plan? Reading food labels Check food labels for the amount of sodium per serving. Choose foods that have less than 140 mg (milligrams) of sodium in each serving. Check food labels for the number of calories per serving. This is important if you need to limit your daily calorie intake to lose weight. Check food labels for the serving size. If you eat more than one serving, you will be eating more sodium and calories than what is listed on the label. Look for foods that are labeled as sodium-free, very low sodium, or low sodium. ?Foods labeled as reduced sodium or lightly salted may still have more sodium than what is recommended for you. Cooking Avoid adding salt when cooking. Ask your health care provider or dietitian before using salt substitutes. Season food with salt-free seasonings, spices, or herbs. Check the label of seasoning mixes to makesure they do not contain salt. Cook with heart-healthy oils, such as olive, canola, soybean, or sunflower oil. Do not kelley foods. Cook foods using low-fat methods, such as baking, boiling, grilling, and broiling. Limit unhealthy fats when cooking by: ?Removing the skin from poultry, such as chicken. ?Removing all visible fats from meats. ?Skimming the fat off from stews, soups, and gravies before serving them. Meal planning Limit your intake of: ?Processed, canned, or pre-packaged foods. ?Foods that are high in trans fat, such as fried foods. ?Sweets, desserts, sugary drinks, and other foods with added sugar. ?Full-fat dairy products, such as whole milk. Eat a balanced diet that includes: ?4 5 servings of fruit each day and 4 5 servings of vegetables each day. At each meal, try to fill half of your plate with fruits and vegetables. ?Up to 6 8 servings of whole grains each day. ?Up to 2 servings of lean meat, poultry, or fish each day. One serving of meat is equal to 3 oz. This is about the same size as a deck of cards. ?2 servings of low-fat dairy each day. ?Heart-healthy fats. Healthy fats called omega-3 fatty acids are found in foods such as flaxseed and cold-water fish like sardines, salmon, and mackerel. Aim to eat 25 35 g (grams) of fiber a day. Foods that are high in fiber include apples, broccoli, carrots, beans, peas, and whole grains. Do not add salt or condiments that contain salt (such as soy sauce) to foods before eating. When eating at a restaurant, ask that your food be prepared with less salt or no salt, if possible. Try to eat 2 or more vegetarian meals each week. Eat more home-cooked food and eat less restaurant, buffet, and fast food. General information Do not eat more than 2,300 mg of salt (sodium) a day. The amount of sodium that is recommended for you may be lower, depending on your condition. Maintain a healthy body weight as directed. Ask your health care provider what a healthy weight is for you. ?Check your weight every day. ?Work with your health care provider and dietitian to make a plan that is right for you to lose weight or maintain your current weight. Limit how much fluid you drink. Ask your health care provider or dietitian how much fluid you can have each day. Limit or avoid alcohol as told by your health care provider or dietitian. Recommended foods The items listed may not be a complete list. Talk with your dietitian about what dietary choices are best for you. Fruits All fresh, frozen, and canned fruits. Dried fruits, such as raisins, prunes, and cranberries. Vegetables All fresh vegetables. Vegetables that are frozen without sauce or added salt. Low-sodium or sodium-free canned vegetables. Grains Bread with less than 80 mg of sodium per slice. Whole-wheat pasta, quinoa, and brown rice. Oats andoatmeal. Barley. Millet. Grits and cream of wheat. Whole- grain and whole-wheat cold cereal. Meats and other protein foods Lean cuts of meat. Skinless chicken and turkey. Fish with high omega-3 fatty acids, such as salmon,sardines, and other cold-water fishes. Eggs. Dried beans, peas, and edamame. Unsalted nuts and nut butters. Dairy Low-fat or nonfat (skim) milk and dried milk. Rice milk, soy milk, and almond milk. Low-fat or nonfat yogurt. Small amounts of reduced-sodium block cheese. Low-sodium cottage cheese. Fats and oils [place], canola, soybean, flaxseed, or sunflower oil. Avocado. Sweets and desserts Apple sauce. Granola bars. Sugar-free pudding and gelatin. Frozen fruit bars. Seasoning and other foods Fresh and dried herbs. Lemon or port graham juice. Vinegar. Low-sodium ketchup. Salt- free marinades, saladdressings, sauces, and seasonings. The items listed above may not be a complete list of foods and beverages you can eat. Contact a dietitian for more information. Foods to avoid The items listed may not be a complete list. Talk with your dietitian about what dietary choices are best for you. Fruits Fruits that are dried with sodium-containing preservatives. Vegetables Canned vegetables. Frozen vegetables with sauce or seasonings. Creamed vegetables. Somali fries. Onion rings. Pickled vegetables and sauerkraut. Grains Bread with more than 80 mg of sodium per slice. Hot or cold cereal with more than 140 mg sodium perserving. Salted pretzels and crackers. Pre-packaged breadcrumbs. Bagels, croissants, and biscuits. Meats and other protein foods Ribs and chicken wings. Duenas, ham, pepperoni, bologna, salami, and packaged luncheon meats. Hot dogs, bratwurst, and sausage. Canned meat. Smoked meat and fish. Salted nuts and seeds. Dairy Whole milk, [id number], and cream. Buttermilk. Processed cheese, cheese spreads, and cheese curds. Regular cottage cheese. Feta cheese. Shredded cheese. String cheese. Fats and oils Butter, lard, shortening, ghee, and duenas fat. Canned and packaged gravies. Seasoning and other foods Onion salt, garlic salt, table salt, and sea salt. Marinades. Regular salad dressings. Relishes, pickles, and olives. Meat flavorings and tenderizers, and bouillon cubes. Horseradish, ketchup, and mustard. Worcestershire sauce. Teriyaki sauce, soy sauce (including reduced sodium). Hot sauce and Tabasco sauce. Steak sauce, fish sauce, oyster sauce, and cocktail sauce. Taco seasonings. Barbecue sauce. Tartar sauce. The items listed above may not be a complete list of foods and beverages you should avoid. Contact a dietitian for more information. Summary A heart failure eating plan includes changes that limit your intake of sodium and unhealthy fat, and it may help you lose weight or maintain a healthy weight. Your health care provider may also recommend limiting how much fluid you drink. Most people with heart failure should eat no more than 2,300 mg of salt (sodium) a day. The amount of sodium that is recommended for you may be lower, depending on your condition. Contact your health care provider or dietitian before making any major changes to your diet. This information is not intended to replace advice given to you by your health care provider. Make sure you discuss any questions you have with your health care provider. Document Released: 08/12/2017 Document Revised: 05/24/2019 Document Reviewed: 08/12/2017 [employer] Patient Education 2020 [employer] 07/01/2024 10:22:57 Heart Failure Exacerbation Heart Failure Exacerbation Heart failure is a condition in which the heart does not fill up with enough blood, and therefore does not pump enough blood and oxygen to the body. When this happens, parts of the body do not get the blood and oxygen they need to function properly. This can cause symptoms such as breathing problems, fatigue, swelling, and confusion. Heart failure exacerbation refers to heart failure symptoms that get worse. The symptoms may get worse suddenly or develop slowly over time. Heart failure exacerbation is a serious medical problem that should be treated right away. What are the causes? A heart failure exacerbation can be triggered by: Not taking your heart failure medicines correctly. Infections. Eating an unhealthy diet or a diet that is high in salt (sodium). Drinking too much fluid. Drinking alcohol. Taking illegal drugs, such as cocaine or methamphetamine. Not exercising. Other causes include: Other heart conditions such as an irregular heartbeat (arrhythmia). Anemia. Other medical problems, such as kidney failure. Sometimes the cause of the exacerbation is not known. What are the signs or symptoms? When heart failure symptoms suddenly or slowly get worse, this may be a sign of heart failure exacerbation. Symptoms of heart failure include: Breathing problems or shortness of breath. Chronic coughing or wheezing. Fatigue. Nausea or lack of appetite. Feeling light-headed. Confusion or memory loss. Increased heart rate or irregular heartbeat. Buildup of fluid in the legs, ankles, feet, or abdomen. Difficulty breathing when lying down. How is this diagnosed? This condition is diagnosed based on: Your symptoms and medical history. A physical exam. You may also have tests, including: Electrocardiogram (ECG). This test measures the electrical activity of your heart. Echocardiogram. This test uses sound waves to take a picture of your heart to see how well it works. Blood tests. Imaging tests, such as: ?Chest X-ray. ?MRI. ?Ultrasound. Stress test. This test examines how well your heart functions when you exercise. Your heart is monitored while you exercise on a treadmill or exercise bike. If you cannot exercise, medicines may be used to increase your heartbeat in place of exercise. Cardiac catheterization. During this test, a thin, flexible tube (catheter) is inserted into a blood vessel and threaded up to your heart. This test allows your health care provider to check the arteries that lead to your heart (coronary arteries). Right heart catheterization. During this test, the pressure in your heart is measured. How is this treated? This condition may be treated by: Adjusting your heart medicines. Maintaining a healthy lifestyle. This includes: ?Eating a heart-healthy diet that is low in sodium. ?Not using any products that contain nicotine or tobacco, such as cigarettes and e-cigarettes. ?Regular exercise. ?Monitoring your fluid intake. ?Monitoring your weight and reporting changes to your health care provider. Treating sleep apnea, if you have this condition. Surgery. This may include: ?Implanting a device that helps both sides of your heart contract at the same time (cardiac resynchronization therapy device). This can help with heart function and relieve heart failure symptoms. ?Implanting a device that can correct heart rhythm problems (implantable cardioverter defibrillator). ?Connecting a device to your heart to help it pump blood (ventricular assist device). ?Heart transplant. Follow these instructions at home: Medicines Take [id number] and prescription medicines only as told by your health care provider. Do not stop taking your medicines or change the amount you take. If you are having problems or sideeffects from your medicines, talk to your health care provider. If you are having difficulty paying for your medicines, contact a licensed clinical social worker or your clinic. There are many programs to assist with medicine costs. Talk to your health care provider before starting any new medicines or supplements. Make sure your health care provider and pharmacist have a list of all the medicines you are taking. Eating and drinking Avoid drinking alcohol. Eat a heart-healthy diet as told by your health care provider. This includes: ?Plenty of fruits and vegetables. ?Lean proteins. ?Low-fat dairy. ?Whole grains. ?Foods that are low in sodium. Activity Exercise regularly as told by your health care provider. Balance exercise with rest. Ask your health care provider what activities are safe for you. This includes sexual activity, exercise, and daily tasks at home or work. Lifestyle Do not use any products that contain nicotine or tobacco, such as cigarettes and e-cigarettes. If you need help quitting, ask your health care provider. Maintain a healthy weight. Ask your health care provider what weight is healthy for you. Consider joining a patient support group. This can help with emotional problems you may have, such as stress and anxiety. General instructions Talk to your health care provider about flu and pneumonia vaccines. Keep a list of medicines that you are taking. This may help in emergency situations. Keep all follow-up visits as told by your health care provider. This is important. Contact a health care provider if: You have questions about your medicines or you miss a dose. You feel anxious, depressed, or stressed. You have swelling in your feet, ankles, legs, or abdomen. You have shortness of breath during activity or exercise. You have a cough. You have a fever. You have trouble sleeping. You gain 2 3 lb (1 1.4 kg) in 24 hours or 5 lb (2.3 kg) in a week. Get help right away if: You have chest pain. You have shortness of breath while resting. You have severe fatigue. You are confused. You have severe dizziness. You have a rapid or irregular heartbeat. You have nausea or you vomit. You have a cough that is worse at night or you cannot lie flat. You have a cough that will not go away. You have severe depression or sadness. Summary When heart failure symptoms get worse, it is called heart failure exacerbation. Common causes of this condition include taking medicines incorrectly, infections, and drinking alcohol. This condition may be treated by adjusting medicines, maintaining a healthy lifestyle, or surgery. Do not stop taking your medicines or change the amount you take. If you are having problems or sideeffects from your medicines, talk to your health care provider. This information is not intended to replace advice given to you by your health care provider. Make sure you discuss any questions you have with your health care provider. Document Released: 08/09/2017 Document Revised: 03/10/2018 Document Reviewed: 08/09/2017 [employer] Patient Education 2020 [employer]. 07/01/2024 10:22:22 Atrial Fibrillation Atrial Fibrillation Atrial fibrillation is a type of irregular or rapid heartbeat (arrhythmia). In atrial fibrillation,the top part of the heart (atria) quivers in a chaotic pattern. This makes the heart unable to pumpblood normally. Having atrial fibrillation can increase your risk for other health problems, such as: Blood can pool in the atria and form clots. If a clot travels to the brain, it can cause a stroke. The heart muscle may weaken from the irregular blood flow. This can cause heart failure. Atrial fibrillation may start suddenly and stop on its own, or it may become a long-lasting problem. What are the causes? This condition is caused by some heart-related conditions or procedures, including: High blood pressure. This is the most common cause. Heart failure. Heart valve conditions. Inflammation of the sac that surrounds the heart (pericarditis). Heart surgery. Coronary artery disease. Certain heart rhythm disorders, such as Patiño Parkinson White syndrome. Other causes include: Pneumonia. Obstructive sleep apnea. Lung cancer. Thyroid problems, especially if the thyroid is overactive (hyperthyroidism). Excessive alcohol or drug use. Sometimes, the cause of this condition is not known. What increases the risk? This condition is more likely to develop in: Older people. People who smoke. People who have diabetes mellitus. People who are overweight (obese). Athletes who exercise vigorously. People who have a family history. What are the signs or symptoms? Symptoms of this condition include: A feeling that your heart is beating rapidly or irregularly. A feeling of discomfort or pain in your chest. Shortness of breath. Sudden light-headedness or weakness. Getting tired easily during exercise. In some cases, there are no symptoms. How is this diagnosed? Your health care provider may be able to detect atrial fibrillation when taking your pulse. If detected, this condition may be diagnosed with: Electrocardiogram (ECG). Ambulatory clinical research monitor. This device records your heartbeats for 24 hours or more. Transthoracic echocardiogram (TTE) to evaluate how blood flows through your heart. Transesophageal echocardiogram (WARREN) to view more detailed images of your heart. A stress test. Imaging tests, such as a CT scan or chest X-ray. Blood tests. How is this treated? This condition may be treated with: Medicines to slow down the heart rate or bring the heart's rhythm back to normal. Medicines to prevent blood clots from forming. Electrical cardioversion. This delivers a low-energy shock to the heart to reset its rhythm. Ablation. This procedure destroys the part of the heart tissue that sends abnormal signals. Left atrial appendage occlusion/excision. This seals off a common place in the atria where blood clots can form (left atrial appendage). The goal of treatment is to prevent blood clots from forming and to keep your heart beating at a normal rate and rhythm. Treatment depends on underlying medical conditions and how you feel when you are experiencing fibrillation. Follow these instructions at home: Medicines Take over-the counter and prescription medicines only as told by your health care provider. If your health care provider prescribed a blood-thinning medicine (anticoagulant), take it exactly as told. Taking too much blood-thinning medicine can cause bleeding. Taking too little can enable a blood clot to form and travel to the brain, causing a stroke. Lifestyle Do not use any products that contain nicotine or tobacco, such as cigarettes and e-cigarettes. If you need help quitting, ask your health care provider. Do not drink beverages that contain caffeine, such as coffee, soda, and tea. Follow diet instructions as told by your health care provider. Exercise regularly as told by your health care provider. Do not drink alcohol. General instructions If you have obstructive sleep apnea, manage your condition as told by your health care provider. Maintain a healthy weight. Do not use diet pills unless your health care provider approves. Diet pills may make heart problems worse. Keep all follow-up visits as told by your health care provider. This is important. Contact a health care provider if you: Notice a change in the rate, rhythm, or strength of your heartbeat. Are taking an anticoagulant and you notice increased bruising. Tire more easily when you exercise or exert yourself. Have a sudden change in weight. Get help right away if you have: Chest pain, abdominal pain, sweating, or weakness. Difficulty breathing. Blood in your vomit, stool (feces), or urine. Any symptoms of a stroke. BE FAST is an easy way to remember the main warning signs of a stroke: ?B - Balance. Signs are dizziness, sudden trouble walking, or loss of balance. ?E - Eyes. Signs are trouble seeing or a sudden change in vision. ?F - Face. Signs are sudden weakness or numbness of the face, or the face or eyelid drooping on oneside. ?A - Arms. Signs are weakness or numbness in an arm. This happens suddenly and usually on one side of the body. ?S - Speech. Signs are sudden trouble speaking, slurred speech, or trouble understanding what people say. ?T - Time. Time to call emergency services. Write down what time symptoms started. Other signs of a stroke, such as: ?A sudden, severe headache with no known cause. ?Nausea or vomiting. ?Seizure. These symptoms may represent a serious problem that is an emergency. Do not wait to see if the symptoms will go away. Get medical help right away. Call your local emergency services (911 in the [place] Do not drive yourself to the hospital. Summary Atrial fibrillation is a type of irregular or rapid heartbeat (arrhythmia). Symptoms include a feeling that your heart is beating fast or irregularly. In some cases, you may not have symptoms. The condition is treated with medicines to slow down the heart rate or bring the heart's rhythm back to normal. You may also need blood-thinning medicines to prevent blood clots. Get help right away if you have symptoms or signs of a stroke. This information is not intended to replace advice given to you by your health care provider. Make sure you discuss any questions you have with your health care provider. Document Released: 03/28/2006 Document Revised: 05/18/2018 Document Reviewed: 05/19/2018 [employer] Patient Education 2020 [employer]. Follow Up Care 06/28/2024 02:34:39 With:[facility] medical [phone] for your oxygen questions Address:Unknown When:1-2 days With:ASIM DIEHL Address: [address] [facility] [address] [place] [address]- When:07/23/2024 15:30:00 With:EMILIANO LEAL Address: [address] [place] [address]- [phone] Business (1) When: Unknown Comments:PLEASE CALL THIS OFFICE TO SCHEDULE A HOSPITAL FOLLOW UP APPOINTMENT. With:[facility] has been arranged for you. Call [phone] with any questions Address:Unknown When: Unknown Comments:Home Physcial therapy has been arranged. With:readmission score is 12 Address:Unknown When: Unknown [facility] 03-23-2025 Respiratory therapy Hospital Progress note Respiratory Therapy Evaluation Entered On: 07/01/2024 5:52 EDT Performed On: 07/01/2024 5:52 EDT by MYRTLE Holden Respiratory Therapy Evaluation RT Evaluation Steps : Chart review completed, Assessment completed: RR, HR, Auscultation, Cough, Patient Interview completed Respiratory Evaluation Triage Score : (0-5) Freq: Q4RT prn RT Assessment [Frequency/Schedule] : Triage score 0-5, modify scheduled medications to Q4hRT PRN Breath Sounds (RT) : Rhonchi clearing with cough Respiratory Therapy Evaluation Score : 5 MYRTLE Holden - 07/01/2024 7:19 EDT Pulmonary Status : Smoking history, quit >1 year ago Surgical Status : No surgery Chest X-Ray : Infiltrates or atelectasis in one lobe Respiratory Pattern (RT) : RR 10-20 BPM, Regular pattern Cough (RT) : Strong, non-productive Level of Activity : Ambulatory Mental Status : Alert, oriented and cooperative MYRTLE Holden - 07/01/2024 5:52 EDT Digitally Signed by MYRTLE Holden on 07/01/2024 07:19 AM [id number] Cardiology Progress note Date of Service 06/30/2024 Chief Complaint Recurrent p AFIB Subjective Bradycardic with new mild BRITT today, will discontinue metoprolol, hydralazine. Transition to Amlodipine 5 mg qDay. Hold diuresis today. Monitor oxygen status, if improved tomorrow, consider oral diuretics on discharge. Objective Vitals and Measurements T: 36.5 C (Oral) TMIN: 36.4 C (Oral) TMAX: 36.9 C (Oral) HR: 56 (Apical) RR: 17 BP: 170/80 SpO2: 94% Intake and Output 7AM Yesterday to 7AM Today Intake and Output (Last 24 hours) Intake Oral Intake 1200.00 Output Urine Voided 950.00 Stool Count 0.00 Urine Count 5.00 Total Summary Total Intake 1200.00 Total Output 950.00 Fluid Balance 250.00 Physical Exam General: AAOX3, NAD HEENT: Anicteric sclera, MMM Neck: Trachea midline, no JVD appreciated CVS: RRR, normal S1/S2, no murmurs/rubs/gallops Lung: CTAB, no wheezes/rhonchi/rales Abd: Soft, NT/ND Extrem: WWP, no LE edema Skin: Warm, Intact Neuro: AAOX3, spontaneous movement of all extremities Psych: Appropriate mood & affect Weight Dosing Weight: 63.9 kg (06/28/24) Dosing Weight: 63.9 kg (06/28/24) Medications Medications (14) Active Scheduled: (5) albuterol - ipratropium 2.5 mg-0.5 mg/3 mL Inhal Germaine UD 3 mL, Inhalation, TIDRT amiodarone 200 mg tablet 200 mg 1 tab(s), Oral, BID amLODIPine 5 mg tablet 5 mg 1 tab(s), Oral, qDay apixaban 5 mg tablet 5 mg 1 tab(s), Oral, BID empagliflozin 10 mg tablet 10 mg 1 tab(s), Oral, qAM Continuous: (1) nitroglycerin 50 mg/250 mL D5W 50 mg [5 mcg/min] + Dextrose 5% Premix Diluent 250 mL 250 mL, Intravenous, 1.5 mL/hr PRN: (8) dextrose 50% Solution Disp syringe 50 mL 25 gram(s) 50 mL, IV Push, AsDirected magnesium sulfate 4 gram(s)/100mL PMX 4 g 100 mL, IV Piggyback, AsDirected magnesium sulfate 50% (500mg/mL) 6 g 12 mL, IV Piggyback, AsDirected magnesium sulfate PMX 2 g 50 mL, IV Piggyback, AsDirected potassium chloride (PMX) 20 mEq/100 mL 20 mEq 100 mL, IV Piggyback, AsDirected potassium chloride 20 mEq ER tablet 20 mEq 1 tab(s), Oral, AsDirected potassium chloride 20 mEq ER tablet 40 mEq 2 tab(s), Oral, AsDirected potassium chloride 20 mEq ER tablet 40 mEq 2 tab(s), Oral, AsDirected Lab Results 06/30 04:31 WBC: 11.4 H Hgb: 12.4 Hct: 35.7 Platelet: 329 Neutrophil %: 77.3 H Glucose Level: 95 Sodium Level: 136 Potassium Level: 4.2 BUN: 43.0 H Creatinine Lvl (s): 1.58 H 06/29 04:30 WBC: 11.0 H Hgb: 13.2 Hct: 37.7 Platelet: 342 Neutrophil %: 79.4 H Glucose Level: 83 Sodium Level: 139 Potassium Level: 3.3 L BUN: 29.0 H Creatinine Lvl (s): 1.42 H Imaging Results and Diagnostics CT Thorax w/o Contrast Result Date: June 29, 2024 Verified By: ROCCO WILSON MD CLINICAL STATEMENT: IMPRESSION: Small effusions with associated atelectasis and or consolidation, new sincethe comparison.. Small area of consolidation in the left lower lobe. Mild emphysematous disease. EKG EKG - Completed -- 06/28/24 4:56:00 EDT Assessment/Plan Recurrent paroxysmal atrial fibrillation Acute on chronic HFmrEF in the setting of atrial fibrillation and hypertensive emergency History of: 83-year-old female with history of recently diagnosed atrial fibrillation (status post cardioversion), recently diagnosed HFmrEF, hypertension, osteoporosis Being transferred from [place] for acute on chronic HFmrEF in the setting of hypertensive emergency. Patient reports she has had worsening shortness of breath, orthopnea, PND, lower extremity edema since last Tuesday. Denies chest pain, infectious symptoms. States this is similar to her previous presentation of heart failure and A-fib. She reports adherence to her medications. States that she watches her diet. She has been drinking a good amount of water for hydration. Patient was initially hypertensive to systolics in the 200s. Otherwise hemodynamically stable on 4 L. Lab work showed mild leukocytosis 12.6. COVID flu RSV negative. Slight elevation of creatinine at 1.28, proBNP 8302, troponin 154 (previous troponin last month was 141). EKG showed coarse A-fib. Chest x-ray showed pulmonary edema and bilateral pleural effusions Here patient says her breathing is improved after her IV Lasix. However, she is still significantlysymptomatic. Plan Now status post cardioversion. Currently in sinus rhythm. Difficult to assess volume status, will wait for official CT results before continuing diuresis. Will continue amiodarone 200 mg twice daily.Do not consider this a failure of amiodarone due to patient not finishing amiodarone load. Continues Eliquis 5 mg twice daily. Will continue Jardiance 10 mg. Bradycardic with new mild BRITT today, will discontinue metoprolol, hydralazine. Transition to Amlodipine 5 mg qDay. Hold diuresis today. Monitor oxygen status, if improved tomorrow, consider oral diuretics on discharge. Digitally Signed by GEETA BEASLEY MD on 06/30/2024 11:59 AM [id number] Cardiology Progress note Date of Service 06/30/2024 Chief Complaint Recurrent p AFIB Subjective Bradycardic with new mild BRITT today, will discontinue metoprolol, hydralazine. Transition to Amlodipine 5 mg qDay. Hold diuresis today. Monitor oxygen status, if improved tomorrow, consider oral diuretics on discharge. Objective Vitals and Measurements T: 36.5 C (Oral) TMIN: 36.4 C (Oral) TMAX: 36.9 C (Oral) HR: 56 (Apical) RR: 17 BP: 170/80 SpO2: 94% Intake and Output 7AM Yesterday to 7AM Today Intake and Output (Last 24 hours) Intake Oral Intake 1200.00 Output Urine Voided 950.00 Stool Count 0.00 Urine Count 5.00 Total Summary Total Intake 1200.00 Total Output 950.00 Fluid Balance 250.00 Physical Exam General: AAOX3, NAD HEENT: Anicteric sclera, MMM Neck: Trachea midline, no JVD appreciated CVS: RRR, normal S1/S2, no murmurs/rubs/gallops Lung: CTAB, no wheezes/rhonchi/rales Abd: Soft, NT/ND Extrem: WWP, no LE edema Skin: Warm, Intact Neuro: AAOX3, spontaneous movement of all extremities Psych: Appropriate mood & affect Weight Dosing Weight: 63.9 kg (06/28/24) Dosing Weight: 63.9 kg (06/28/24) Medications Medications (14) Active Scheduled: (5) albuterol - ipratropium 2.5 mg-0.5 mg/3 mL Inhal Germaine UD 3 mL, Inhalation, TIDRT amiodarone 200 mg tablet 200 mg 1 tab(s), Oral, BID amLODIPine 5 mg tablet 5 mg 1 tab(s), Oral, qDay apixaban 5 mg tablet 5 mg 1 tab(s), Oral, BID empagliflozin 10 mg tablet 10 mg 1 tab(s), Oral, qAM Continuous: (1) nitroglycerin 50 mg/250 mL D5W 50 mg [5 mcg/min] + Dextrose 5% Premix Diluent 250 mL 250 mL, Intravenous, 1.5 mL/hr PRN: (8) dextrose 50% Solution Disp syringe 50 mL 25 gram(s) 50 mL, IV Push, AsDirected magnesium sulfate 4 gram(s)/100mL PMX 4 g 100 mL, IV Piggyback, AsDirected magnesium sulfate 50% (500mg/mL) 6 g 12 mL, IV Piggyback, AsDirected magnesium sulfate PMX 2 g 50 mL, IV Piggyback, AsDirected potassium chloride (PMX) 20 mEq/100 mL 20 mEq 100 mL, IV Piggyback, AsDirected potassium chloride 20 mEq ER tablet 20 mEq 1 tab(s), Oral, AsDirected potassium chloride 20 mEq ER tablet 40 mEq 2 tab(s), Oral, AsDirected potassium chloride 20 mEq ER tablet 40 mEq 2 tab(s), Oral, AsDirected Lab Results 06/30 04:31 WBC: 11.4 H Hgb: 12.4 Hct: 35.7 Platelet: 329 Neutrophil %: 77.3 H Glucose Level: 95 Sodium Level: 136 Potassium Level: 4.2 BUN: 43.0 H Creatinine Lvl (s): 1.58 H 06/29 04:30 WBC: 11.0 H Hgb: 13.2 Hct: 37.7 Platelet: 342 Neutrophil %: 79.4 H Glucose Level: 83 Sodium Level: 139 Potassium Level: 3.3 L BUN: 29.0 H Creatinine Lvl (s): 1.42 H Imaging Results and Diagnostics CT Thorax w/o Contrast Result Date: June 29, 2024 Verified By: ROCCO WILSON MD CLINICAL STATEMENT: IMPRESSION: Small effusions with associated atelectasis and or consolidation, new sincethe comparison.. Small area of consolidation in the left lower lobe. Mild emphysematous disease. EKG EKG - Completed -- 06/28/24 4:56:00 EDT Assessment/Plan Recurrent paroxysmal atrial fibrillation Acute on chronic HFmrEF in the setting of atrial fibrillation and hypertensive emergency History of: 83-year-old female with history of recently diagnosed atrial fibrillation (status post cardioversion), recently diagnosed HFmrEF, hypertension, osteoporosis Being transferred from [place] for acute on chronic HFmrEF in the setting of hypertensive emergency. Patient reports she has had worsening shortness of breath, orthopnea, PND, lower extremity edema since last Tuesday. Denies chest pain, infectious symptoms. States this is similar to her previous presentation of heart failure and A-fib. She reports adherence to her medications. States that she watches her diet. She has been drinking a good amount of water for hydration. Patient was initially hypertensive to systolics in the 200s. Otherwise hemodynamically stable on 4 L. Lab work showed mild leukocytosis 12.6. COVID flu RSV negative. Slight elevation of creatinine at 1.28, proBNP 8302, troponin 154 (previous troponin last month was 141). EKG showed coarse A-fib. Chest x-ray showed pulmonary edema and bilateral pleural effusions Here patient says her breathing is improved after her IV Lasix. However, she is still significantlysymptomatic. Plan Now status post cardioversion. Currently in sinus rhythm. Difficult to assess volume status, will wait for official CT results before continuing diuresis. Will continue amiodarone 200 mg twice daily.Do not consider this a failure of amiodarone due to patient not finishing amiodarone load. Continues Eliquis 5 mg twice daily. Will continue Jardiance 10 mg. Bradycardic with new mild BRITT today, will discontinue metoprolol, hydralazine. Transition to Amlodipine 5 mg qDay. Hold diuresis today. Monitor oxygen status, if improved tomorrow, consider oral diuretics on discharge. Digitally Signed by GEETA BEASLEY MD on 06/30/2024 11:59 AM [id number] Cardiology Progress note Date of Service 06/29/2024 09:39:32 Subjective With cardioversion today. Endorsing improvement of symptoms still looks short of breath. Objective Vitals and Measurements T: 36.4 C (Oral) TMIN: 36.3 C (Oral) TMAX: 37 C (Oral) HR: 86 (Monitored) RR: 20 BP: 148/90 SpO2: 94% Intake and Output 7AM Yesterday to 7AM Today Intake and Output (Last 24 hours) Intake Oral Intake 1450.00 Output Urine Voided 100.00 Urinary Catheter Output: 2450.00 Total Summary Total Intake 1450.00 Total Output 2550.00 Fluid Balance -1100.00 Physical Exam General Appearance: NAD EENT: MOIST MEMBRANES Neck: NO APPRECIABLE JVD Cardiac: RRR Lungs: Bibasilar crackles Abdomen: NON TENDER TO PALPATION Extremities: NO BILATERAL EDEMA Neurological: AOX3 Psychiatric: NORMAL AFFECT Weight Dosing Weight: 63.9 kg (06/28/24) Dosing Weight: 63.9 kg (06/28/24) Medications Medications (16) Active Scheduled: (7) albuterol - ipratropium 2.5 mg-0.5 mg/3 mL Inhal Germaine UD 3 mL, Inhalation, TIDRT amiodarone 200 mg tablet 200 mg 1 tab(s), Oral, BID apixaban 5 mg tablet 5 mg 1 tab(s), Oral, BID empagliflozin 10 mg tablet 10 mg 1 tab(s), Oral, qAM furosemide 40 mg/4 mL vial 40 mg 4 mL, IV Push, BID hydralazine 25 mg Tablet 25 mg 1 tab(s), Oral, TID metoprolol succinate 50 mg ER tablet 50 mg 1 tab(s), Oral, BID Continuous: (1) nitroglycerin 50 mg/250 mL D5W 50 mg [5 mcg/min] + Dextrose 5% Premix Diluent 250 mL 250 mL, Intravenous, 1.5 mL/hr PRN: (8) dextrose 50% Solution Disp syringe 50 mL 25 gram(s) 50 mL, IV Push, AsDirected magnesium sulfate 4 gram(s)/100mL PMX 4 g 100 mL, IV Piggyback, AsDirected magnesium sulfate 50% (500mg/mL) 6 g 12 mL, IV Piggyback, AsDirected magnesium sulfate PMX 2 g 50 mL, IV Piggyback, AsDirected potassium chloride (PMX) 20 mEq/100 mL 20 mEq 100 mL, IV Piggyback, AsDirected potassium chloride 20 mEq ER tablet 20 mEq 1 tab(s), Oral, AsDirected potassium chloride 20 mEq ER tablet 40 mEq 2 tab(s), Oral, AsDirected potassium chloride 20 mEq ER tablet 40 mEq 2 tab(s), Oral, AsDirected Lab Results CMP 06/29/24 04:30 06/28/24 01:26 06/26/24 16:54 Glucose Level 83 mg/dL 122 mg/dL H 99 mg/dL Sodium Level 139 mEq/L 139 mmol/L 138 mmol/L Potassium Level 3.3 mEq/L L 3.7 mmol/L 4.2 mmol/L Chloride 98 mEq/L 101 mmol/L 100 mmol/L CO2 34 mEq/L H 32 mmol/L H 32 mmol/L H Electrolyte Balance 7.0 mEq/L 6.0 mEq/L 6.0 mEq/L BUN 29.0 mg/dL H 29 mg/dL H 32 mg/dL H Creatinine Lvl (s) 1.42 mg/dL H 1.28 mg/dL H 1.34 mg/dL H BUN/Creatinine Ratio 20.4 ratio 23 ratio 24 ratio Calcium Lvl 9.5 mg/dL 9.4 mg/dL 9.8 mg/dL Estimated Glomerular Filtration Rate 37 ml/min/1.73sqm 42 ml/min/1.73sqm 40 ml/min/1.73sqm CBC 06/29/24 04:30 06/28/24 01:26 06/19/24 06:58 Hct 37.7 % 39.2 % 38.3 % Hgb 13.2 G/dL 13.9 G/dL 13.6 G/dL MCH 30.9 pg 31.0 pg 31.6 pg MCHC 35.0 G/dL 35.5 G/dL 35.6 G/dL MCV 88.3 fL 87.2 fL 88.7 fL MPV 7.3 fL 7.1 fL 7.2 fL Platelet 342 10^3/mcL 338 10^3/mcL 267 10^3/mcL RBC 4.27 10^6/mcL 4.49 10^6/mcL 4.32 10^6/mcL RDW 15.0 % 14.4 % 14.7 % WBC 11.0 10^3/mcL H 12.6 10^3/mcL H 10.3 10^3/mcL Cardiac Enzymes Cardiac Enzymes High Sensitivity Troponin I: 88 ng/L High (06/28/24 08:55:00) N-Terminal proBNP: 8302 pg/mL High (06/28/24 01:26:00) Lipids No qualifying data available. Imaging Results and Diagnostics 05/2024 Summary: 1. Left ventricle: The cavity size is mildly increased. Wall thickness is normal. Systolic functionis moderately reduced. The estimated ejection fraction is 40-45%. There is moderate diffuse hypokinesis. Grade II diastolic dysfunction. 2. Aortic valve: Thickening, consistent with sclerosis. 3. Mitral valve: There is moderate regurgitation. 4. Left atrium: The atrium is moderately dilated. 5. Right ventricle: The RV systolic pressure by Doppler is 41 mm Hg. 6. Right atrium: The estimated right atrial pressure is 3 mm Hg. [1] EKG Electrocardiogram - Ordered -- 06/28/24 15:29:00 EDT Assessment/Plan Orders: albuterol-ipratropium(DuoNeb), 3 mL, Inhalation, TIDRT Transfer/Change in Level of Care, 06/28/24 11:51:00 EDT, Level of Care: Stepdown with monitor, Medication Review: I have assessed all medications Recurrent paroxysmal atrial fibrillation Acute on chronic HFmrEF in the setting of atrial fibrillation and hypertensive emergency History of: 83-year-old female with history of recently diagnosed atrial fibrillation (status post cardioversion), recently diagnosed HFmrEF, hypertension, osteoporosis Being transferred from [place] for acute on chronic HFmrEF in the setting of hypertensive emergency. Patient reports she has had worsening shortness of breath, orthopnea, PND, lower extremity edema since last Kali. Denies chest pain, infectious symptoms. States this is similar to her previous presentation of heart failure and A-fib. She reports adherence to her medications. States that she watches her diet. She has been drinking a good amount of water for hydration. Patient was initially hypertensive to systolics in the 200s. Otherwise hemodynamically stable on 4 L. Lab work showed mild leukocytosis 12.6. COVID flu RSV negative. Slight elevation of creatinine at 1.28, proBNP 8302, troponin 154 (previous troponin last month was 141). EKG showed coarse A-fib. Chest x-ray showed pulmonary edema and bilateral pleural effusions Here patient says her breathing is improved after her IV Lasix. However, she is still significantlysymptomatic. Plan Now status post cardioversion. Currently in sinus rhythm. Difficult to assess volume status, will wait for official CT results before continuing diuresis. Will device continue amiodarone 200 mg twicedaily. Do not consider this a failure of amiodarone due to patient not finishing amiodarone load. Continues Eliquis 5 mg twice daily. Will continue Jardiance 10 mg. Continue metoprolol 50 mg twice daily. EP following appreciate recs. Time Spent 20 minutes [1] Echocardiogram, Adult - CV; KofiEileen coreas 05/16/2024 12:24 EST Digitally Signed by ISAURA JACKSON MD on 06/29/2024 11:45 PM [id number] Note* Exam Date Time Procedure Performing Provider Status 06/29/24 6:[address] Thorax w/o Contrast ROCCO WILSON MD; Auth (Verified) [id number] ORIGINAL HISTORY: Short of breath COMPARISON: 21 October 2021 TECHNIQUE: Chest CT with sagittal and coronal reconstructions. This exam was performed according to our departmental dose optimization program, and includes the following measures where applicable: automated exposure control, adjustment of the mAs and/or kVp according to patient size and/or exam, and an iterative reconstruction algorithm. FINDINGS: There are small pleural effusions and there is mild associated atelectasis and or consolidation. There is a smaller focus of irregular consolidation in the peripheral left lower lobe. There is atelectasis in the lingula. There are mild underlying emphysematous changes. No lymphadenopathy is seen; there are calcified mediastinal lymph nodes. Chest wall structures are intact. IMPRESSION: Small effusions with associated atelectasis and or consolidation, new since the comparison.. Small area of consolidation in the left lower lobe. Mild emphysematous disease. Interpreted by: Rocco Wilson MD Preliminary Report By: Rocco Wilson MD Electronically signed By Rocco Wilson MD Dictated Date: 06/30/2024 8:41:59 AM Prelim Date: 06/30/2024 8:44:59 AM Sign Date: 06/30/2024 8:44:59 AM Ordering Provider: ISAURA JACKSON [id number] Pastoral care Progress note Pastoral Care Note Entered On: 06/29/2024 14:49 EDT Performed On: 06/29/2024 13:16 EDT by Salvador S[facility] Type of Pastoral Visit : Initial visit Spiritual Care Visit Initiated by : Consult/Referral Spiritual Care Reason for Visit : General Pastoral Care Referral From : Patient, Nurse Spiritual Assessment : Grateful/Thankful Spiritual Care Intervention : Words of Encouragement, Supportive presence, Conversation Spiritual Plan of Care : Visit as Requested Pastoral Care Comments : Supported the patient after the RN put her back in bed. Patient said she was very sleepy when i asked how she was doing. I told her I would let her rest and they know our number if she needed us to come back. Number Present During Pastoral Visit : 1 Pastoral Care Visit Length : 10 minute(s) Salvador Sánchez - 06/29/2024 14:48 EDT Digitally Signed by Salvador Sánchez on 06/29/2024 02:48 PM [id number] Note* Exam Date Time Procedure Performing Provider Status 06/29/24 10:40 AM Electrocardiogram - EKG - CV LUCIANO HYLTON MD; Auth (Verified) ECG Final Report SINUS RHYTHM ATRIAL PREMATURE COMPLEX PROBABLE LEFT ATRIAL ENLARGEMENT ANTERIOR INFARCT, AGE INDETERMINATE Electronic Signature: SANGITA HYLTON MD 06/30/2024 14:52:45 [facility] [id number] Procedure note DATE: 06/29/24 PROCEDURE: DC cardioversion INDICATIONS: persistent atrial fibrillation PHYSICIAN: Dr Bailon [employer] EXAMINER: Dr Gunter ; Eileen Rosas HPI: recurrent pers AF COMPLICATIONS: none PROCEDURE DETAILS: The patient presented to the EP lab in the fasting state. The rhythm was atrial fibrillation with ventricular rate in the 90 bpm range. Patient verification, allergies, informed consent, and procedure type were discussed with the patient and the team. The patient reported compliance with anticoagulation, with no missed doses over the prior 3 weeks. Anterior and posterior adhesive patch electrodeswere placed in the appropriate position. The anesthesia team then administered propofol for sedation. A 150 J biphasic synchronized shock was administered and converted the patient to sinus rhythm atHR 50 bpm. Patient had IRAF A second, 200 J biphasic synchronized shock was administered and converted the patient to sinus rhythm at HR 50 bpm. The patient tolerated the procedure well Impression - Successful DCCV (150J) with immediate return of AFIb - Successful DCCV (200J) with sinus Harry Bailon MD Cardiac Electrophysiology Digitally Signed by HARRY BAILON MD on 06/29/2024 10:09 AM [facility] [id number] Cardiology Progress note Date of Service 06/29/2024 09:39:32 Subjective With cardioversion today. Endorsing improvement of symptoms still looks short of breath. Objective Vitals and Measurements T: 36.4 C (Oral) TMIN: 36.3 C (Oral) TMAX: 37 C (Oral) HR: 86 (Monitored) RR: 20 BP: 148/90 SpO2: 94% Intake and Output 7AM Yesterday to 7AM Today Intake and Output (Last 24 hours) Intake Oral Intake 1450.00 Output Urine Voided 100.00 Urinary Catheter Output: 2450.00 Total Summary Total Intake 1450.00 Total Output 2550.00 Fluid Balance -1100.00 Physical Exam General Appearance: NAD EENT: MOIST MEMBRANES Neck: NO APPRECIABLE JVD Cardiac: RRR Lungs: Bibasilar crackles Abdomen: NON TENDER TO PALPATION Extremities: NO BILATERAL EDEMA Neurological: AOX3 Psychiatric: NORMAL AFFECT Weight Dosing Weight: 63.9 kg (06/28/24) Dosing Weight: 63.9 kg (06/28/24) Medications Medications (16) Active Scheduled: (7) albuterol - ipratropium 2.5 mg-0.5 mg/3 mL Inhal Germaine UD 3 mL, Inhalation, TIDRT amiodarone 200 mg tablet 200 mg 1 tab(s), Oral, BID apixaban 5 mg tablet 5 mg 1 tab(s), Oral, BID empagliflozin 10 mg tablet 10 mg 1 tab(s), Oral, qAM furosemide 40 mg/4 mL vial 40 mg 4 mL, IV Push, BID hydralazine 25 mg Tablet 25 mg 1 tab(s), Oral, TID metoprolol succinate 50 mg ER tablet 50 mg 1 tab(s), Oral, BID Continuous: (1) nitroglycerin 50 mg/250 mL D5W 50 mg [5 mcg/min] + Dextrose 5% Premix Diluent 250 mL 250 mL, Intravenous, 1.5 mL/hr PRN: (8) dextrose 50% Solution Disp syringe 50 mL 25 gram(s) 50 mL, IV Push, AsDirected magnesium sulfate 4 gram(s)/100mL PMX 4 g 100 mL, IV Piggyback, AsDirected magnesium sulfate 50% (500mg/mL) 6 g 12 mL, IV Piggyback, AsDirected magnesium sulfate PMX 2 g 50 mL, IV Piggyback, AsDirected potassium chloride (PMX) 20 mEq/100 mL 20 mEq 100 mL, IV Piggyback, AsDirected potassium chloride 20 mEq ER tablet 20 mEq 1 tab(s), Oral, AsDirected potassium chloride 20 mEq ER tablet 40 mEq 2 tab(s), Oral, AsDirected potassium chloride 20 mEq ER tablet 40 mEq 2 tab(s), Oral, AsDirected Lab Results CMP 06/29/24 04:30 06/28/24 01:26 06/26/24 16:54 Glucose Level 83 mg/dL 122 mg/dL H 99 mg/dL Sodium Level 139 mEq/L 139 mmol/L 138 mmol/L Potassium Level 3.3 mEq/L L 3.7 mmol/L 4.2 mmol/L Chloride 98 mEq/L 101 mmol/L 100 mmol/L CO2 34 mEq/L H 32 mmol/L H 32 mmol/L H Electrolyte Balance 7.0 mEq/L 6.0 mEq/L 6.0 mEq/L BUN 29.0 mg/dL H 29 mg/dL H 32 mg/dL H Creatinine Lvl (s) 1.42 mg/dL H 1.28 mg/dL H 1.34 mg/dL H BUN/Creatinine Ratio 20.4 ratio 23 ratio 24 ratio Calcium Lvl 9.5 mg/dL 9.4 mg/dL 9.8 mg/dL Estimated Glomerular Filtration Rate 37 ml/min/1.73sqm 42 ml/min/1.73sqm 40 ml/min/1.73sqm CBC 06/29/24 04:30 06/28/24 01:26 06/19/24 06:58 Hct 37.7 % 39.2 % 38.3 % Hgb 13.2 G/dL 13.9 G/dL 13.6 G/dL MCH 30.9 pg 31.0 pg 31.6 pg MCHC 35.0 G/dL 35.5 G/dL 35.6 G/dL MCV 88.3 fL 87.2 fL 88.7 fL MPV 7.3 fL 7.1 fL 7.2 fL Platelet 342 10^3/mcL 338 10^3/mcL 267 10^3/mcL RBC 4.27 10^6/mcL 4.49 10^6/mcL 4.32 10^6/mcL RDW 15.0 % 14.4 % 14.7 % WBC 11.0 10^3/mcL H 12.6 10^3/mcL H 10.3 10^3/mcL Cardiac Enzymes Cardiac Enzymes High Sensitivity Troponin I: 88 ng/L High (06/28/24 08:55:00) N-Terminal proBNP: 8302 pg/mL High (06/28/24 01:26:00) Lipids No qualifying data available. Imaging Results and Diagnostics 05/2024 Summary: 1. Left ventricle: The cavity size is mildly increased. Wall thickness is normal. Systolic functionis moderately reduced. The estimated ejection fraction is 40-45%. There is moderate diffuse hypokinesis. Grade II diastolic dysfunction. 2. Aortic valve: Thickening, consistent with sclerosis. 3. Mitral valve: There is moderate regurgitation. 4. Left atrium: The atrium is moderately dilated. 5. Right ventricle: The RV systolic pressure by Doppler is 41 mm Hg. 6. Right atrium: The estimated right atrial pressure is 3 mm Hg. [1] EKG Electrocardiogram - Ordered -- 06/28/24 15:29:00 EDT Assessment/Plan Orders: albuterol-ipratropium(DuoNeb), 3 mL, Inhalation, TIDRT Transfer/Change in Level of Care, 06/28/24 11:51:00 EDT, Level of Care: Stepdown with monitor, Medication Review: I have assessed all medications Recurrent paroxysmal atrial fibrillation Acute on chronic HFmrEF in the setting of atrial fibrillation and hypertensive emergency History of: 83-year-old female with history of recently diagnosed atrial fibrillation (status post cardioversion), recently diagnosed HFmrEF, hypertension, osteoporosis Being transferred from [place] for acute on chronic HFmrEF in the setting of hypertensive emergency. Patient reports she has had worsening shortness of breath, orthopnea, PND, lower extremity edema since last Tuesday. Denies chest pain, infectious symptoms. States this is similar to her previous presentation of heart failure and A-fib. She reports adherence to her medications. States that she watches her diet. She has been drinking a good amount of water for hydration. Patient was initially hypertensive to systolics in the 200s. Otherwise hemodynamically stable on 4 L. Lab work showed mild leukocytosis 12.6. COVID flu RSV negative. Slight elevation of creatinine at 1.28, proBNP 8302, troponin 154 (previous troponin last month was 141). EKG showed coarse A-fib. Chest x-ray showed pulmonary edema and bilateral pleural effusions Here patient says her breathing is improved after her IV Lasix. However, she is still significantlysymptomatic. Plan Now status post cardioversion. Currently in sinus rhythm. Difficult to assess volume status, will wait for official CT results before continuing diuresis. Will device continue amiodarone 200 mg twicedaily. Do not consider this a failure of amiodarone due to patient not finishing amiodarone load. Continues Eliquis 5 mg twice daily. Will continue Jardiance 10 mg. Continue metoprolol 50 mg twice daily. EP following appreciate recs. Time Spent 20 minutes [1] Echocardiogram, Adult - CV; Eileen Hansen 05/16/2024 12:24 EST Digitally Signed by ISAURA JACKSON MD on 06/29/2024 11:45 PM [id number] Anesthesiology Consult note Patient: JED SEWELL Age: 83 years Sex: Female : 1940 Associated Diagnoses: None Author: CARLO GLASS DO Preoperative Information Greater than 6 hours Anesthesia history Patient's history: negative. Family's history: negative. Review of Systems Ear/Nose/Mouth/Throat: Negative except as documented in history of present illness. Respiratory: Negative except as documented in history of present illness. Cardiovascular: Negative except as documented in history of present illness. Gastrointestinal: Negative except as documented in history of present illness. Genitourinary: Negative except as documented in history of present illness. Endocrine: Negative except as documented in history of present illness. Musculoskeletal: Negative except as documented in history of present illness. Integumentary: Negative except as documented in history of present illness. Neurologic: Negative except as documented in history of present illness. Health Status Allergies: Allergic Reactions (Selected) Severity Not Documented Periactin- Numbness. Nonallergic Reactions (Selected) Moderate Alendronate- Myalgia. Mild AmLODIPine- Edema., Allergies (3) ActiveSeverityReaction alendronateModerateMyalgia amLODIPineMildEdema PeriactinNumbness Current medications: (Selected) Inpatient Medications Ordered Dextrose 50% IV Push: Start: 06/28/24 5:13:00 EDT, Dose = 25 gram(s), = 50 mL, IV Push, AsDirected,PRN, Low blood sugar, 06/28/24 5:13:00 EDT DuoNeb: Start: 06/29/24 7:01:00 EDT, Dose = 3 mL, Soln, Inhalation, TIDRT, 06/29/24 7:01:00 EDT Eliquis: Start: 06/28/24 9:00:00 EDT, Dose = 5 mg, = 1 tab(s), Oral, BID, Indication for Use Atrialfibrillation, 06/28/24 5:09:00 EDT Jardiance: Start: 06/28/24 9:00:00 EDT, Dose = 10 mg, = 1 tab(s), Oral, qAM, 06/28/24 5:09:00 EDT Lasix: Start: 06/28/24 9:00:00 EDT, Dose = 40 mg, = 4 mL, IV Push, BID, 06/28/24 7:50:00 EDT amiodarone: Start: 06/28/24 8:00:00 EDT, Dose = 200 mg, = 1 tab(s), Oral, BID, 0, 06/28/24 5:09:00 EDT hydrALAZINE: Start: 06/28/24 5:10:00 EDT, Dose = 25 mg, = 1 tab(s), Oral, TID, 06/28/24 5:10:00 EDT magnesium sulfate for IV bolus: Start: 06/28/24 5:13:00 EDT, 2 g, Dose = 50 mL, Soln, IV Piggyback,AsDirected, PRN, for Mg level 1.5-1.8 mg/dl, Rate: 25 mL/hr, Infuse over: 2 hour(s), 0, 06/28/24 5:13:00 EDT magnesium sulfate for IV bolus: Start: 06/28/24 5:13:00 EDT, 4 g, Dose = 100 mL, Soln, IV Piggyback, AsDirected, PRN, for Mg level 1.1-1.4 mg/dl, Rate: 25 mL/hr, Infuse over: 4 hour(s), 0, 06/28/24:13:00 EDT magnesium sulfate for IV bolus: Start: 06/28/24 5:13:00 EDT, 6 g, Dose = 12 mL, Soln, IV Piggyback,AsDirected, PRN, for Mg level 1 mg/dl or less, Rate: 41.67 mL/hr, Infuse over: 6 hour(s), 0, 06/28/24 5:13:00 EDT metoprolol succinate 50 mg oral TABLET extended release: Start: 06/28/24 10:54:00 EDT, Dose = 50 mg, = 1 tab(s), Oral, BID, 0, 06/28/24 10:54:00 EDT nitroGLYcerin for IV 50 mg [5 mcg/min] + Dextrose Premix titrate 250 mL: Start: 06/28/24 5:16:00 EDT, Starting dose: 5, mcg/min, Titrate by: 5, mcg/min, every 5, minute(s), to Goal: SBP 170, Max dose: 400, mcg/min, Rate: 1.5 mL/hr, 06/28/24 5:16:00 EDT potassium chloride bolus: Start: 06/28/24 5:13:00 EDT, Dose = 20 mEq, = 100 mL, IV Piggyback, AsDirected, PRN, for K+ level 2.5 - 2.9 mEq/dL, Rate: 50 mL/hr, Infuse over: 2 hour(s), 0, 06/28/24 5:13:00 EDT potassium chloride: Start: 06/28/24 5:13:00 EDT, Dose = 20 mEq, = 1 tab(s), Oral, AsDirected, PRN, for K+ level 3.5 - 3.9 mEq/L, 06/28/24 5:13:00 EDT potassium chloride: Start: 06/28/24 5:13:00 EDT, Dose = 40 mEq, = 2 tab(s), Oral, AsDirected, PRN, for K+ level 2.5 - 2.9 mEq/dL, 06/28/24 5:13:00 EDT potassium chloride: Start: 06/28/24 5:13:00 EDT, Dose = 40 mEq, = 2 tab(s), Oral, AsDirected, PRN, for K+ level 3-3.4 mEq/L, 06/28/24 5:13:00 EDT Prescriptions Prescribed Cardizem CD 240 mg/24 hours oral capsule, extended release: Dose : 240 mg = 1 cap(s), Oral, qDay, #90 cap(s), 3 Refill(s), Pharmacy: [facility], 160, cm, 06/13/24 13:57:00 EST, Height, kg, 06/13/24 13:57:00 EST, Dosing Weight Eliquis 5 mg oral tablet: Dose : 5 mg = 1 tab(s), Oral, BID, # 180 tab(s), 3 Refill(s), Pharmacy: [facility], 160, cm, 06/19/24 6:42:00 EDT, Height, 61.3, kg, 06/19/24 6:42:00 EDT, Dosing Weight Jardiance 10 mg oral tablet: Dose : 10 mg = 1 tab(s), Oral, qAM, # 90 tab(s), 3 Refill(s), Pharmacy: [facility], 160, cm, 06/13/24 13:57:00 EST, Height, kg, 06/13/24 13:57:00 EST, Dosing Weight Prolia 60 mg/mL subcutaneous solution: Dose : 60 mg = 1 mL, Subcutaneous, q6mo, # 1 mL, 0 Refill(s), Osteoporosis, 158, cm, 02/23/24 10:19:00 EST, Height, kg, 02/23/24 10:19:00 EST, Dosing Weight amiodarone 200 mg oral tablet: Dose : 200 mg = 1 tab(s), Oral, qDay, # 90 tab(s), 3 Refill(s), Pharmacy: [facility], 160, cm, 06/13/24 13:57:00 EST, Height, kg, 06/13/24 13:57:00 EST, Dosing Weight bumetanide 1 mg oral tablet: Dose : 1 mg = 1 tab(s), Oral, BID, # 180 tab(s), 3 Refill(s), Pharmacy: [facility], 160, cm, 06/13/24 13:57:00 EST, Height, kg, 06/13/24 13:57:00 EST, Dosing Weight potassium chloride 20 mEq oral tablet, extended release: Dose : 20 mEq = 1 tab(s), Oral, qDay, Takewith food, # 30 tab(s), 3 Refill(s), Pharmacy: [facility], 160, cm, 256:42:00 EDT, Height, kg, 06/19/24 6:42:00 EDT, Dosing Weight, Medications (16) Active Scheduled: (7) albuterol - ipratropium 2.5 mg-0.5 mg/3 mL Inhal Germaine UD 3 mL, Inhalation, TIDRT amiodarone 200 mg tablet 200 mg 1 tab(s), Oral, BID apixaban 5 mg tablet 5 mg 1 tab(s), Oral, BID empagliflozin 10 mg tablet 10 mg 1 tab(s), Oral, qAM furosemide 40 mg/4 mL vial 40 mg 4 mL, IV Push, BID hydralazine 25 mg Tablet 25 mg 1 tab(s), Oral, TID metoprolol succinate 50 mg ER tablet 50 mg 1 tab(s), Oral, BID Continuous: (1) nitroglycerin 50 mg/250 mL D5W 50 mg [5 mcg/min] + Dextrose 5% Premix Diluent 250 mL 250 mL, Intravenous, 1.5 mL/hr PRN: (8) dextrose 50% Solution Disp syringe 50 mL 25 gram(s) 50 mL, IV Push, AsDirected magnesium sulfate 4 gram(s)/100mL PMX 4 g 100 mL, IV Piggyback, AsDirected magnesium sulfate 50% (500mg/mL) 6 g 12 mL, IV Piggyback, AsDirected magnesium sulfate PMX 2 g 50 mL, IV Piggyback, AsDirected potassium chloride (PMX) 20 mEq/100 mL 20 mEq 100 mL, IV Piggyback, AsDirected potassium chloride 20 mEq ER tablet 20 mEq 1 tab(s), Oral, AsDirected potassium chloride 20 mEq ER tablet 40 mEq 2 tab(s), Oral, AsDirected potassium chloride 20 mEq ER tablet 40 mEq 2 tab(s), Oral, AsDirected Problem list: Medical Atrial fibrillation / SNOMED CT [id number] / Confirmed Chronic renal failure, stage 3 (moderate) / SNOMED CT 861009558 / Confirmed HFrEF (heart failure with reduced ejection fraction) / SNOMED CT 6624073982 / Confirmed HTN (hypertension) / SNOMED CT [id number] / Confirmed Serum calcium elevated / SNOMED CT 609053371 / Confirmed Osteoporosis / SNOMED CT 659854745 / Confirmed, Active Problems (10) Atrial fibrillation Chronic renal failure, stage 3 (moderate) HFrEF (heart failure with reduced ejection fraction) HTN (hypertension) VT (myocardial infarction) Mitral regurgitation Osteoporosis Serum calcium elevated Shortness of breath Tobacco use Histories Past Medical History: Active HTN (hypertension) ([id number]) Resolved Sciatica (57857342): Resolved. Microalbuminuria (186766186): Resolved. DDD (degenerative disc disease), lumbar (06771140): Resolved. Neck pain on right side (617526864): Resolved. Hypercalcemia (133874690): Resolved. Proteinuria of undiagnosed cause (168999800): Resolved. Acute bronchitis due to infection (385362300): Resolved. Family History: Respiratory disease Father COPD Mother Procedure history: Colonoscopy and biopsy of colon ([id number]) on 11/02/2019 at 78 Years. Colonoscopy ([id number]) on 04/11/2011 at 70 Years. Ovarian cyst ([id number]). Appendectomy (737161421). Cholecystectomy (71022598). Abdominal hysterectomy (002276312). Social History: Social & Psychosocial Habits Alcohol 06/19/2024Risk Assessment: Denies Alcohol Use 06/19/2024 Use: Never Employment/School 06/11/2024 Status: Retired Substance Abuse 06/19/2024Risk Assessment: Denies Substance Abuse 06/19/2024 Use: Never Tobacco 06/19/2024 Tobacco Use: Former smoker, quit more, quit 05/13/24 Type: Cigarettes Number of years: 45 Exercise Comment: none - 12/04/2018 11:18 - Aidee Boyer LPN Home/Environment 06/19/2024 Domestic Concerns None Living situation: Home/Independent Lives In Single level home Nutrition/Health 06/19/2024 Type of diet: Regular Appetite Good Eating Difficulties None Caffeine intake amount: decaf coffee Physical Examination General: Alert and oriented. Airway: Normal temporomandibular joint mobility, Normal mouth, Normal throat, Normal neck range of motion, Trachea midline. Mallampati classification: II (soft palate, fauces, uvula visible). Head: Normocephalic. Dentition Evaluation: Intact, Own teeth, Denies loose/chipped teeth. Neck: Supple. Respiratory: Lungs are clear to auscultation, Respirations are non-labored. Cardiovascular: Normal rate, No murmur. Heart Sounds: Normal. Gastrointestinal: Soft. Musculoskeletal Normal range of motion. Integumentary: Intact, Warm, Dry. Neurologic: Alert, Oriented. Review / Management Results review: Lab results 06/29/2024 8:10 EDT Respiratory Rate 20 br/min Systolic Blood Pressure Non-Invasive 146 mmHg HI Diastolic Blood Pressure Non-Invasive 90 mmHg HI Blood Pressure Method Manual Blood Pressure Location Right arm Blood Pressure Cuff Size Medium Nail Bed Color [place] Capillary Refill < 2 seconds Dorsalis Pedis Pulse, Left 1+ Thready Dorsalis Pedis Pulse, Right 1+ Thready Radial Pulse, Left 2+ Normal Radial Pulse, Right 2+ Normal Respirations Unlabored Breath Sounds Auscultated Anterior and posterior Left Upper Lobe Breath Sounds Fine crackles Left Lower Lobe Breath Sounds Fine crackles Right Upper Lobe Breath Sounds Diminished Right Middle Lobe Breath Sounds Fine crackles Right Lower Lobe Breath Sounds Diminished All Lobes Breath Sounds Expiratory wheeze Patient Participation in Treatment Cooperative Cough and Deep Breathe Done Cough None Oxygen Therapy Nasal cannula 0L-6L Oxygen Saturation 94 % Oxygen Flow Rate 4 L/min Tracheal Position Midline Abdomen Description Non-distended Abdomen Palpation Non-Tender Passing Flatus Yes Bowel Movement Last Date 06/27/2024 Bowel Continence No bowel movement Swallowing Disorder None Bowel Sounds All Quadrants Present Urinary Elimination Voiding, no difficulties, Urinary catheter draining Urine Color Yellow Urine Description Medium amount Urinary Elimination Devices External catheter All Extremity Description [place], Normal for ethnicity Temperature All Extremities Warm Neurological Language Able to speak clearly Neurological Symptoms Patient denies Characteristics of Communication Appropriate Level of Consciousness Alert Eye Opening Response Asher Spontaneously Best Motor Response Asher Obeys simple commands Best Verbal Response Asher Oriented SEDA Yes Left Pupil Reaction Brisk Right Pupil Reaction Brisk Pupil Size, Left 3 mm Pupil Size, Right 3 mm Strength All Extremities Moderate Left Upper Extremity Sensation Intact Right Upper Extremity Sensation Intact Left Lower Extremity Sensation Intact Right Lower Extremity Sensation Intact Affect/Behavior Appropriate, Calm, Cooperative Orientation Oriented x 4 Orientation Assessment Oriented x 4 Eating Difficulties None 06/29/2024 7:53 EDT Notify date/time 06/29/2024 7:53 Provider Notified ISAURA JACKSON MD Notification Method Phone Information Communicated Nurse communication Details Communicated patient's creatinine is 1.42 today and it was 1.28 yesterday, do you still want lasix given? Notification Outcome Orders received Person Reporting Result(s) O Maria ENCINAS Details of Results Received Hold until I evaluate. 06/29/2024 7:43 EDT Cardiac EP Progress Note Progress Note 06/29/2024 7:36 EDT Temperature Oral 36.4 DegC Heart Rate Monitored 78 bpm Respiratory Rate 17 br/min Systolic Blood Pressure Non-Invasive 151 mmHg HI Diastolic Blood Pressure Non-Invasive 97 mmHg HI Mean Arterial Pressure (NBP) 110 mmHg Blood Pressure Method Automatic Blood Pressure Location Right arm Blood Pressure Cuff Size Medium Reason For Taking VItal Signs Routine Oxygen Therapy Nasal cannula 0L-6L Oxygen Saturation 93 % Oxygen Flow Rate 4 L/min External Female external catheter 06/28/2024 Urinary Catheter Activity: Changed Urinary Catheter Site Condition: No complications Urinary Catheter Care Completed: Yes Assistive Device Walker Positioning Repositioned back Mobility Assistance Level One assist Activity Status ADL Awake Beds/Devices Hospital bed Activity Assistance One assist Standard Safety ID band on, Allergy Band on, Call device within reach, Bed in low position, Wheels locked, Upper/Half-Length side-rails up, Phone within reach, personal items within reach, Assistive devices within reach, Non-Slip footwear High Risk Safety Non-Slip footwear, Room check performed Demonstrates Correct Call Light Use Yes 06/29/2024 7:09 EDT albuterol-ipratropium 3 mL mL 06/29/2024 7:08 EDT Peripheral Pulse Rate 79 bpm Respiratory Rate 17 br/min Respirations Unlabored Breath Sounds Auscultated Anterior only All Lobes Breath Sounds Expiratory wheeze Patient Effort Good Patient Participation in Treatment Cooperative Aerosol Delivery Device Small volume nebulizer Aerosol Treatment Route Mouth piece Cough and Deep Breathe Done Spontaneous Cough No Oxygen Saturation 97 % Respiratory Treatment Charge Aerosol treatment Level of Consciousness Alert 06/29/2024 6:50 EDT Telemetry Telemetry 06/29/2024 5:05 EDT Mechanical VTE Prophylaxis Education Not Done: See ICU flow (Not Done) Sequential Compression Device Not Done: See ICU flow (Not Done) Sequential Compression Device Form Not Done (Not Done) 06/29/2024 4:30 EDT WBC 11.0 10^3/mcL HI RBC 4.27 10^6/mcL Hgb 13.2 G/dL Hct 37.7 % MCV 88.3 fL MCH 30.9 pg MCHC 35.0 G/dL RDW 15.0 % Platelet 342 10^3/mcL MPV 7.3 fL Neutrophil % 79.4 % HI Lymphocyte % 9.6 % LOW Monocyte % 7.9 % Eosinophil % 2.2 % Basophil % 0.9 % Neutrophil, Absolute 8.7 10^3/mcL HI Lymphocyte, Absolute 1.1 10^3/mcL Monocyte, Absolute 0.9 10^3/mcL Eosinophil, Absolute 0.2 10^3/mcL Basophil, Absolute 0.1 10^3/mcL Glucose Level 83 mg/dL Sodium Level 139 mEq/L Potassium Level 3.3 mEq/L LOW Chloride 98 mEq/L CO2 34 mEq/L HI Electrolyte Balance 7.0 mEq/L BUN 29.0 mg/dL HI Creatinine Lvl (s) 1.42 mg/dL HI Estimated Glomerular Filtration Rate 37 ml/min/1.73sqm NA BUN/Creatinine Ratio 20.4 ratio Calcium Lvl 9.5 mg/dL Magnesium Lvl 2.2 mg/dL Creatinine Clearance Calc 28.80 mL/min 06/29/2024 4:21 EDT Temperature Oral 36.3 DegC Heart Rate Monitored 73 bpm Respiratory Rate 18 br/min Systolic Blood Pressure Non-Invasive 145 mmHg HI Diastolic Blood Pressure Non-Invasive 93 mmHg HI Blood Pressure Method Automatic Blood Pressure Location Right arm Blood Pressure Cuff Size Medium Reason For Taking VItal Signs Routine Primary Pain Intensity 0 Primary Pain Nonverbal Response Nods No Pain Scale Type 0-10 Pain scale Monitor Alarms On and Limits Checked Cardiovascular Symptoms Edema Nail Bed Color [place] Capillary Refill < 2 seconds Heart Sounds ICU S1S2 Heart Rhythm Irregular Dorsalis Pedis Pulse, Left 1+ Thready Dorsalis Pedis Pulse, Right 1+ Thready Radial Pulse, Left 2+ Normal Radial Pulse, Right 2+ Normal Ankle edema Bilateral Edema Ratin+ trace/2mm Cardiac Rhythm Atrial fibrillation Monitoring Lead III, V1/MCL1 QRS Duration 0.10 second(s) Alarms On and Functional Yes Heart Rate Alarm Set At - Low 50 Heart Rate Alarm Set At - High 120 Respirations Unlabored Respiratory Pattern Regular Breath Sounds Auscultated Anterior and posterior Left Upper Lobe Breath Sounds Fine crackles Left Lower Lobe Breath Sounds Fine crackles Right Upper Lobe Breath Sounds Diminished Right Middle Lobe Breath Sounds Fine crackles Right Lower Lobe Breath Sounds Diminished All Lobes Breath Sounds detailed lung assessment Cough and Deep Breathe Done Cough None Oxygen Therapy Nasal cannula 0L-6L Oxygen Saturation 95 % Oxygen Flow Rate 4 L/min Tracheal Position Midline Abdomen Description Non-distended, Soft Abdomen Palpation Non-Tender, Soft Passing Flatus Yes Bowel Continence No bowel movement Swallowing Disorder None Bowel Sounds All Quadrants Present Urinary Elimination Urinary catheter draining External Female external catheter 06/28/2024 Urinary Catheter Activity: Assessed Urinary Catheter Site Condition: No complications Facial Movement Symmetric resting/crying Skin Description Normal for ethnicity, Dry Skin Temperature Warm Skin Integrity Pressure points intact Skin Turgor Non-Elastic Skin Symptoms Bruising All Extremity Description Normal for ethnicity Temperature All Extremities Warm Mucous Membrane Color [place] Mucous Membrane Description Moist Sensory Perception Jose Slightly limited Moisture Jose Occasionally moist Activity Jose Walks occasionally Mobility Jose Slightly limited Nutrition Jose Adequate Friction and Shear Jose No apparent problem Jose Score 18 Hospital Acquired Pressure Injury Risk Low risk (score 15-18) Continuous IV Infusions adapted Antecubital Right 20 gauge Peripheral IV Activity: Assessed Peripheral IV Dressing Condition: Clean, Dry, Intact Peripheral IV Dressing Activity: Transparent dressing Peripheral IV Line Status/Patency: Flushes easily Peripheral IV Site Condition: No complications Peripheral IV Equipment: PRN Adaptor Antecubital Left 20 gauge Peripheral IV Activity: Assessed Peripheral IV Dressing Condition: Clean, Dry, Intact Peripheral IV Dressing Activity: Transparent dressing Peripheral IV Line Status/Patency: Flushes easily Peripheral IV Site Condition: Ecchymotic Peripheral IV Equipment: PRN Adaptor Neurological Language Able to speak clearly Neurological Symptoms Fatigue Gait Unable to assess Extremity Movement Equal Swallowing Difficulty None Characteristics of Communication Appropriate Characteristics of Speech Clear Facial Symmetry Symmetric Level of Consciousness Alert Aspiration Risk None Eye Opening Response Ignacia Spontaneously Best Motor Response Ignacia Obeys simple commands Best Verbal Response Asher Oriented Asher Coma Score 15 SEDA Yes Left Pupil Description Regular, Round Right Pupil Description Regular, Round Left Pupil Reaction Brisk Right Pupil Reaction Brisk Pupil Size, Left 3 mm Pupil Size, Right 3 mm Strength All Extremities Moderate Left Upper Extremity Sensation Intact Right Upper Extremity Sensation Intact Left Lower Extremity Sensation Intact Right Lower Extremity Sensation Intact CN VII Facial Expression and Symmetry Facial movement symmetrical CN VIII Hearing Spoken word equally audible left/right CN IX, X Swallowing, Gag Reflex Swallowing present Romero Screen Daily History of Fall in Last 3 Months Romero No Presence of Secondary Diagnosis Romero Yes Use of Ambulatory Aid Romero Crutches, cane, walker IV/PRN Adapter Fall Risk Romero Yes Gait Weak or Impaired Fall Risk Romero Normal, bedrest, immobile Mental Status Fall Risk Romero Oriented to own ability Romero Fall Risk Score 50 HI Violence Risk Confused No Violence Risk Irritable No Violence Risk Boisterous No Violence Risk Verbal Threats No Violence Risk Physical Threats No Violence Risk Attacking Objects No Violence Risk Predictor Score 0 Violence Risk Intervention None Violence Risk Current Interventions None Affect/Behavior Appropriate, Calm, Cooperative Orientation Oriented x 4 BMAT Existing Patient Condition/Safety No order for Strict Bedrest BMAT Level 1: Sit and Shake Sit, side bed/reach midline/shake hands BMAT Level 2: Stretch and Point Seated position, straighten 1 knee; Flex ankle & point toes BMAT Level 3: Stand Patient unable BMAT Mobility Level 2 Orientation Assessment Oriented x 4 Assistive Device Walker Positioning Repositions self Mobility Assistance Level One assist Activity Status ADL Lights dimmed, Resting Beds/Devices Hospital bed Activity Assistance One assist Nurse Safety Checks q2hrs Performed Other: 3a-3p Standard Safety ID band on, Call device within reach, Bed in low position, Wheels locked, Upper/Half-Length side-rails up, Phone within reach, personal items within reach, Assistive devices within reach High Risk Safety Door open, Room check performed Demonstrates Correct Call Light Use Yes RN Coordination of Care Other: 3a-3p Eating Difficulties None Eating Difficulties None 06/29/2024 3:13 EDT Telemetry Telemetry 06/29/2024 2:23 EDT Standard Safety Safety level maintained High Risk Safety Room check performed 06/29/2024 1:08 EDT Mechanical VTE Prophylaxis Education Not Done: Not Appropriate at this Time (NotDone) Sequential Compression Device Not Done: Not Appropriate at this Time (Not Done) Sequential Compression Device Form Not Done (Not Done) 06/29/2024 0:32 EDT Standard Safety Safety level maintained High Risk Safety Room check performed 06/28/2024 23:04 EDT Telemetry Telemetry 06/28/2024 22:51 EDT Systolic Blood Pressure Non-Invasive 148 mmHg HI Diastolic Blood Pressure Non-Invasive 75 mmHg apixaban 5 mg mg hydrALAZINE 25 mg mg 06/28/2024 22:41 EDT Temperature Oral 36.3 DegC Peripheral Pulse Rate 88 bpm Respiratory Rate 20 br/min Systolic Blood Pressure Non-Invasive 148 mmHg HI Diastolic Blood Pressure Non-Invasive 75 mmHg Blood Pressure Method Automatic Blood Pressure Location Right arm Blood Pressure Cuff Size Medium Reason For Taking VItal Signs Routine Primary Pain Intensity 0 Primary Pain Nonverbal Response Nods No Pain Scale Type 0-10 Pain scale Cardiovascular Symptoms Edema Nail Bed Color [place] Capillary Refill < 2 seconds Heart Sounds ICU S1S2 Heart Rhythm Irregular Dorsalis Pedis Pulse, Left 1+ Thready Dorsalis Pedis Pulse, Right 1+ Thready Radial Pulse, Left 2+ Normal Radial Pulse, Right 2+ Normal Ankle edema Bilateral Edema Ratin+ trace/2mm Cardiac Rhythm Atrial fibrillation Monitoring Lead III, V1/MCL1 QRS Duration 0.10 second(s) Alarms On and Functional Yes Heart Rate Alarm Set At - Low 50 Heart Rate Alarm Set At - High 120 Respirations Unlabored Respiratory Pattern Regular Breath Sounds Auscultated Anterior and posterior Left Upper Lobe Breath Sounds Fine crackles Left Lower Lobe Breath Sounds Fine crackles Right Upper Lobe Breath Sounds Diminished Right Middle Lobe Breath Sounds Fine crackles Right Lower Lobe Breath Sounds Diminished All Lobes Breath Sounds detailed lung assessment Cough None Oxygen Therapy Nasal cannula 0L-6L Oxygen Saturation 96 % Oxygen Flow Rate 4 L/min Tracheal Position Midline Abdomen Description Non-distended, Symmetric, Soft Abdomen Palpation Non-Tender Bowel Continence No bowel movement Swallowing Disorder None Bowel Sounds All Quadrants Present Tolerating Oral Intake Yes Urinary Elimination Urinary catheter draining Urine Color Yellow Urine Description Medium amount External Female external catheter 06/28/2024 Urinary Catheter Activity: Assessed Urinary Catheter Site Condition: No complications Urinary Catheter Output: 500 mL Urinary Catheter Care Completed: Yes Facial Movement Makes facial grimaces, Symmetric resting/crying Skin Description [place], Normal for ethnicity, Dry Skin Temperature Warm Skin Integrity Pressure points intact Skin Turgor Non-Elastic Skin Symptoms Bruising All Extremity Description [place], Normal for ethnicity Temperature All Extremities Warm Mucous Membrane Color [place] Mucous Membrane Description Moist Antecubital Right 20 gauge Peripheral IV Activity: Assessed Peripheral IV Dressing Condition: Clean, Dry, Intact Peripheral IV Dressing Activity: Transparent dressing Peripheral IV Line Status/Patency: Flushes easily, 10ml normal saline flush, Good blood return Peripheral IV Site Condition: No complications Peripheral IV Equipment: PRN Adaptor Antecubital Left 20 gauge Peripheral IV Activity: Assessed Peripheral IV Dressing Condition: Clean, Dry, Intact Peripheral IV Dressing Activity: Transparent dressing Peripheral IV Line Status/Patency: Flushes easily, 10ml normal saline flush, No blood return Peripheral IV Site Condition: Ecchymotic Peripheral IV Equipment: PRN Adaptor Neurological Language Able to speak clearly, Follows simple commands Neurological Symptoms Fatigue Gait Unable to assess Extremity Movement Equal Swallowing Difficulty None Characteristics of Communication Appropriate Characteristics of Speech Clear Facial Symmetry Symmetric Level of Consciousness Alert Aspiration Risk None SEDA Yes Left Pupil Description Regular, Round Right Pupil Description Regular, Round Left Pupil Reaction Brisk Right Pupil Reaction Brisk Pupil Size, Left 3 mm Pupil Size, Right 3 mm Strength All Extremities Moderate Left Upper Extremity Sensation Intact Right Upper Extremity Sensation Intact Left Lower Extremity Sensation Intact Right Lower Extremity Sensation Intact CN V Facial Sensation Corneal reflex present, Light touch equal bilaterally CN VII Facial Expression and Symmetry Facial movement symmetrical CN VIII Hearing Spoken word equally audible left/right CN IX, X Swallowing, Gag Reflex Swallowing present Affect/Behavior Appropriate, Calm, Cooperative Orientation Oriented x 4 Orientation Assessment Oriented x 4 Assistive Device Walker Positioning Repositions self Mobility Assistance Level One assist Activity Status ADL Lights dimmed, Resting Beds/Devices Hospital bed Activity Assistance One assist Standard Safety ID band on, Allergy Band on, Call device within reach, Bed in low position, Wheels locked, Upper/Half-Length side-rails up, Phone within reach, personal items within reach, Hazards removed from floor, Non-Slip footwear, Precautions maintained High Risk Safety Identified as high risk, Door open, Bathroom light on, Non-Slip footwear, Room check performed Demonstrates Correct Call Light Use Yes Adaptive Feeding Equipment None Eating Difficulties None 06/28/2024 21:18 EDT Mechanical VTE Prophylaxis Education Not Done: See ICU flow (Not Done) Sequential Compression Device Not Done: See ICU flow (Not Done) Sequential Compression Device Form Not Done (Not Done) 06/28/2024 20:34 EDT Pulmonary Status Not Done: Task Duplication (Not Done) Surgical Status Not Done: Task Duplication (Not Done) Chest X-Ray Not Done: Task Duplication (Not Done) Respiratory Pattern (RT) Not Done: Task Duplication (Not Done) Breath Sounds (RT) Not Done: Task Duplication (Not Done) Cough (RT) Not Done: Task Duplication (Not Done) Level of Activity Not Done: Task Duplication (Not Done) Mental Status (RT) Not Done: Task Duplication (Not Done) Respiratory Therapy Evaluation Score Not Done: Task Duplication (Not Done) RT Assessment [Frequency/Schedule] Not Done: Task Duplication (Not Done) RT Evaluation Steps Not Done: Task Duplication (Not Done) 06/28/2024 20:09 EDT Ed-Medication Side Effects Done Edu-Med Generic/Brand Name,Purpose,Action Done Ed-Equipment for Patient Care Done 06/28/2024 19:51 EDT Pulmonary Status Smoking history, quit >1 year ago Surgical Status No surgery Chest X-Ray Infiltrates or atelectasis in one lobe Respiratory Pattern (RT) RR 21-25 BPM, Tachypnea Breath Sounds (RT) Expiratory wheezes Cough (RT) Strong, non-productive Level of Activity Ambulatory Mental Status (RT) Alert, oriented and cooperative Respiratory Therapy Evaluation Score 7 Respiratory Evaluation Triage Score (6-10) Freq: TIDRT & Albuterol Q2hRT prn RT Assessment [Frequency/Schedule] Triage score 6-10, change frequency to TIDRT and Albuterol Q RT Evaluation Steps Chart review completed, Assessment completed: RR, HR, Auscultation, Cough, Patient Interview completed Respiratory Therapy Progress Note Respiratory Therapy Evaluation 06/28/2024 19:50 EDT Peripheral Pulse Rate 84 bpm Respiratory Rate 22 br/min HI Respirations Unlabored Breath Sounds Auscultated Anterior only All Lobes Breath Sounds Expiratory wheeze Patient Effort Good Patient Participation in Treatment Cooperative Aerosol Delivery Device Small volume nebulizer Aerosol Treatment Route Aerosol mask Cough and Deep Breathe Done Spontaneous Cough Yes Oxygen Saturation 97 % Respiratory Treatment Charge Aerosol treatment Level of Consciousness Alert 06/28/2024 19:38 EDT Notify date/time 06/28/2024 19:38 Provider Notified ISAURA JACKSON MD Notification Method Phone Information Communicated Nurse communication Details Communicated Pateint is very wheezy and having SOB, she does not currently have any breathing tx on. Please advise Notification Outcome Orders received Person Reporting Result(s) Noe JAIMES RN Details of Results Received I will place orders for breathing tx. Please call respiratory albuterol-ipratropium 3 mL mL 06/28/2024 19:04 EDT Telemetry Telemetry 06/28/2024 19:02 EDT Belongings At Bedside Pants, Shirt, Shoes, Socks, Undergarments 06/28/2024 18:55 EDT Apical Heart Rate 88 bpm metoprolol 50 mg mg 06/28/2024 18:46 EDT Temperature Oral 37 DegC Heart Rate Monitored 81 bpm Respiratory Rate 22 br/min HI Systolic Blood Pressure Non-Invasive 160 mmHg HI Diastolic Blood Pressure Non-Invasive 73 mmHg Blood Pressure Method Automatic Blood Pressure Location Right arm Blood Pressure Cuff Size Medium Reason For Taking VItal Signs Routine Primary Pain Intensity 0 Primary Pain Nonverbal Response Nods No Pain Scale Type 0-10 Pain scale Cardiovascular Symptoms Edema Nail Bed Color [place] Capillary Refill < 2 seconds Heart Sounds ICU S1S2 Heart Rhythm Irregular Dorsalis Pedis Pulse, Left 2+ Normal Dorsalis Pedis Pulse, Right 2+ Normal Radial Pulse, Left 2+ Normal Radial Pulse, Right 2+ Normal Ankle edema Bilateral Edema Ratin+ trace/2mm Cardiac Rhythm Atrial fibrillation Monitoring Lead III, V1/MCL1 QRS Duration 0.09 second(s) Alarms On and Functional Yes Heart Rate Alarm Set At - Low 50 Heart Rate Alarm Set At - High 120 Respiratory Symptoms Shortness of breath Respirations Unlabored Respiratory Pattern Regular Breath Sounds Auscultated Anterior and posterior Left Upper Lobe Breath Sounds Expiratory wheeze Left Lower Lobe Breath Sounds Expiratory wheeze Right Upper Lobe Breath Sounds Expiratory wheeze Right Middle Lobe Breath Sounds Diminished Right Lower Lobe Breath Sounds Fine crackles All Lobes Breath Sounds detailed lung assessment Cough and Deep Breathe Done Cough Dry Oxygen Therapy Nasal cannula 0L-6L Oxygen Saturation 97 % Oxygen Flow Rate 4 L/min Tracheal Position Midline Tolerating Oral Intake Yes Urinary Elimination Urinary catheter draining Urine Color Yellow Urine Description Small amount External Female external catheter 06/28/2024 Urinary Catheter Activity: Assessed Urinary Catheter Site Condition: No complications Facial Movement Makes facial grimaces, Symmetric resting/crying Skin Description [place], Normal for ethnicity, Dry Skin Temperature Warm Skin Integrity Pressure points intact Skin Turgor Non-Elastic Skin Symptoms Bruising All Extremity Description [place], Normal for ethnicity Temperature All Extremities Warm Mucous Membrane Color [place] Mucous Membrane Description Moist Antecubital Right 20 gauge Peripheral IV Activity: Assessed Peripheral IV Dressing Condition: Clean, Dry, Intact Peripheral IV Dressing Activity: Transparent dressing Peripheral IV Line Status/Patency: Flushes easily, 10ml normal saline flush Peripheral IV Site Condition: No complications Peripheral IV Equipment: PRN Adaptor Antecubital Left 20 gauge Peripheral IV Activity: Assessed Peripheral IV Dressing Condition: Clean, Dry, Intact Peripheral IV Dressing Activity: Transparent dressing Peripheral IV Line Status/Patency: Flushes easily, 10ml normal saline flush, Good blood return Peripheral IV Site Condition: No complications Peripheral IV Equipment: PRN Adaptor Neurological Language Able to speak clearly, Follows simple commands Neurological Symptoms Fatigue Gait Unable to assess Extremity Movement Equal Swallowing Difficulty None Characteristics of Communication Appropriate Characteristics of Speech Clear Facial Symmetry Symmetric Level of Consciousness Alert Aspiration Risk None SEDA Yes Left Pupil Description Regular, Round Right Pupil Description Regular, Round Left Pupil Reaction Brisk Right Pupil Reaction Brisk Pupil Size, Left 3 mm Pupil Size, Right 3 mm Strength All Extremities Moderate Left Upper Extremity Sensation Intact Right Upper Extremity Sensation Intact Left Lower Extremity Sensation Intact Right Lower Extremity Sensation Intact CN V Facial Sensation Corneal reflex present, Light touch equal bilaterally CN VII Facial Expression and Symmetry Facial movement symmetrical CN VIII Hearing Spoken word equally audible left/right CN IX, X Swallowing, Gag Reflex Swallowing present Affect/Behavior Appropriate, Calm, Cooperative Orientation Oriented x 4 Orientation Assessment Oriented x 4 Assistive Device Walker Positioning Repositions self Mobility Assistance Level One assist Activity Status ADL Lights dimmed, Resting Beds/Devices Hospital bed Activity Assistance One assist Dinner Percent 80 % Standard Safety ID band on, Allergy Band on, Call device within reach, Bed in low position, Wheels locked, Upper/Half-Length side-rails up, Phone within reach, personal items within reach, Hazards removed from floor, Non-Slip footwear, Precautions maintained High Risk Safety Identified as high risk, Room located near nursing station, Bed alert on, Door open, Bathroom light on, Non-Slip footwear, Room check performed Demonstrates Correct Call Light Use Yes Adaptive Feeding Equipment None Appetite Good Eating Difficulties None 06/28/2024 17:28 EDT Post Rehab Outcome Not Done: See ICU flow (Not Done) Mechanical VTE Prophylaxis Education Not Done: See ICU flow (Not Done) Sequential Compression Device Not Done: See ICU flow (Not Done) Cardiac Rehab - Phase I Not Done (Not Done) Sequential Compression Device Form Not Done (Not Done) 06/28/2024 16:47 EDT Skin Assessment Verification Admission 06/28/2024 15:39 EDT Telemetry Telemetry 06/28/2024 15:30 EDT Individuals Taught Patient Learning Readiness Willing to learn Barriers to Learning None evident Teaching Method Explanation Preferred Spoken Language [place] Preferred Written Language [place] Disease Process General Education Signs/Symptoms to report, Signs/Symptoms of complications Equipment Education monitor worker, Urinary catheter care, Oxygen, Walker Patient Care Education Activity limitations/expectations Teaching Evaluation Verbalizes/Nonverbally indicates understanding Heart Failure Education Time 15 minute(s) Heart Failure Risk Factor Education Atrial fibrillation Heart Failure Symptom Monitoring Plan Activity as tolerated, Intake & output while in hospital Heart Failure Medication Education Diuretics, Precautions, Side effects, Importance of compliance Heart Failure Teaching Evaluation Verbalizes/Nonverbally indicates understanding Safety Measures Education Fall prevention, Call light use, Ambulation device use, Non-slip footwearuse, Bleeding precautions Safety Teaching Evaluation Verbalizes/Nonverbally indicates understanding 06/28/2024 15:29 EDT Electrocardiogram - EKG - CV Ordered (In Progress) 06/28/2024 15:25 EDT Systolic Blood Pressure Non-Invasive 161 mmHg HI Diastolic Blood Pressure Non-Invasive 129 mmHg >HHI Blood Pressure Method Automatic Blood Pressure Location Right arm Blood Pressure Cuff Size Medium Reason For Taking VItal Signs Routine Primary Pain Intensity 0 Primary Pain Nonverbal Response Nods No Pain Scale Type 0-10 Pain scale Cardiovascular Symptoms Edema Nail Bed Color [place] Capillary Refill < 2 seconds Heart Sounds ICU S1S2 Heart Rhythm Irregular Dorsalis Pedis Pulse, Left 2+ Normal Dorsalis Pedis Pulse, Right 2+ Normal Radial Pulse, Left 2+ Normal Radial Pulse, Right 2+ Normal Ankle edema Bilateral Edema Ratin+ trace/2mm Cardiac Rhythm Atrial fibrillation Monitoring Lead II, III QRS Duration 0.09 second(s) Alarms On and Functional Yes Heart Rate Alarm Set At - Low 50 Heart Rate Alarm Set At - High 120 Respirations Unlabored Respiratory Pattern Regular Breath Sounds Auscultated Anterior and posterior Left Upper Lobe Breath Sounds Clear, Diminished Left Lower Lobe Breath Sounds Clear, Diminished Right Upper Lobe Breath Sounds Clear, Diminished Right Middle Lobe Breath Sounds Clear, Diminished Right Lower Lobe Breath Sounds Diminished All Lobes Breath Sounds Expiratory wheeze Cough None Oxygen Therapy Nasal cannula 0L-6L Oxygen Flow Rate 4 L/min Tracheal Position Midline Abdomen Description Non-distended, Symmetric, Soft Abdomen Palpation Non-Tender Bowel Continence No bowel movement Swallowing Disorder None Bowel Sounds All Quadrants Present Tolerating Oral Intake Yes Urinary Elimination Urinary catheter draining Urine Color Yellow Urine Description Medium amount External Female external catheter 06/28/2024 Urinary Catheter Activity: Assessed Urinary Catheter Site Condition: No complications Facial Movement Makes facial grimaces, Symmetric resting/crying Skin Description [place], Normal for ethnicity, Dry Skin Temperature Warm Skin Integrity Pressure points intact Skin Turgor Non-Elastic Skin Symptoms Bruising All Extremity Description [place], Normal for ethnicity Temperature All Extremities Warm Mucous Membrane Color [place] Mucous Membrane Description Moist Sensory Perception Jose Slightly limited Moisture Jose Occasionally moist Activity Jose Walks occasionally Mobility Jose Slightly limited Nutrition Jose Adequate Friction and Shear Jose No apparent problem Jose Score 18 Hospital Acquired Pressure Injury Risk None/minimal risk (score 19-23) Antecubital Right 20 gauge Peripheral IV Activity: Assessed Peripheral IV Dressing Condition: Clean, Dry, Intact Peripheral IV Dressing Activity: Transparent dressing Peripheral IV Line Status/Patency: Flushes easily, 5ml heparin flush, No blood return Peripheral IV Site Condition: No complications Peripheral IV Equipment: PRN Adaptor Antecubital Left 20 gauge Peripheral IV Activity: Assessed Peripheral IV Dressing Condition: Clean, Dry, Intact Peripheral IV Dressing Activity: Transparent dressing Peripheral IV Line Status/Patency: Flushes easily, 10ml normal saline flush, Good blood return Peripheral IV Site Condition: No complications Peripheral IV Equipment: PRN Adaptor Neurological Language Able to speak clearly, Follows simple commands Neurological Symptoms Fatigue Gait Unable to assess Extremity Movement Equal Swallowing Difficulty None Characteristics of Communication Appropriate Characteristics of Speech Clear Facial Symmetry Symmetric Level of Consciousness Alert Aspiration Risk None Eye Opening Response Ignacia Spontaneously Best Motor Response Asher Obeys simple commands Best Verbal Response Ignacia Oriented Asher Coma Score 15 SEDA Yes Left Pupil Description Regular, Round Right Pupil Description Regular, Round Left Pupil Reaction Brisk Right Pupil Reaction Brisk Pupil Size, Left 3 mm Pupil Size, Right 3 mm Strength All Extremities Moderate Left Upper Extremity Sensation Intact Right Upper Extremity Sensation Intact Left Lower Extremity Sensation Intact Right Lower Extremity Sensation Intact CN V Facial Sensation Corneal reflex present, Light touch equal bilaterally CN VII Facial Expression and Symmetry Facial movement symmetrical CN VIII Hearing Spoken word equally audible left/right CN IX, X Swallowing, Gag Reflex Swallowing present Romero Screen Daily History of Fall in Last 3 Months Romero No Presence of Secondary Diagnosis Romero Yes Use of Ambulatory Aid Romero Crutches, cane, walker IV/PRN Adapter Fall Risk Romero Yes Gait Weak or Impaired Fall Risk Romero Normal, bedrest, immobile Mental Status Fall Risk Romero Oriented to own ability Romero Fall Risk Score 50 HI Violence Risk Confused No Violence Risk Irritable No Violence Risk Boisterous No Violence Risk Verbal Threats No Violence Risk Physical Threats No Violence Risk Attacking Objects No Violence Risk Predictor Score 0 Violence Risk Intervention None Violence Risk Current Interventions None Affect/Behavior Appropriate, Calm, Cooperative Orientation Oriented x 4 BMAT Existing Patient Condition/Safety No order for Strict Bedrest BMAT Level 1: Sit and Shake Sit, side bed/reach midline/shake hands BMAT Level 2: Stretch and Point Seated position, straighten 1 knee; Flex ankle & point toes BMAT Level 3: Stand Patient unable BMAT Mobility Level 2 Orientation Assessment Oriented x 4 Assistive Device Walker Positioning Repositions self Mobility Assistance Level One assist Activity Status ADL Lights dimmed, Resting Beds/Devices Hospital bed Activity Assistance One assist Standard Safety ID band on, Allergy Band on, Call device within reach, Bed in low position, Wheels locked, Upper/Half-Length side-rails up, Phone within reach, personal items within reach, Hazards removed from floor, Non-Slip footwear, Precautions maintained High Risk Safety Identified as high risk, Fall ID band on, Bed alert on, Bathroom light on, Non-Slip footwear, Room check performed Demonstrates Correct Call Light Use Yes amiodarone 200 mg mg hydrALAZINE 25 mg mg Adaptive Feeding Equipment None Eating Difficulties None 06/28/2024 15:22 EDT furosemide 40 mg mg 06/28/2024 15:05 EDT Post Rehab Outcome Not Done: See ICU flow (Not Done) Post Rehab Outcome Not Done: See ICU flow (Not Done) CAM Mental Status Change & Fluctuation Not Done: See ICU flow (Not Done) CAM Mental Status Change & Fluctuation Not Done: See ICU flow (Not Done) CAM Inattention Not Done: See ICU flow (Not Done) CAM Inattention Not Done: See ICU flow (Not Done) CAM Disorganized Thinking Not Done: See ICU flow (Not Done) CAM Disorganized Thinking Not Done: See ICU flow (Not Done) CAM Altered Level of Consciousness Not Done: See ICU flow (Not Done) CAM (more content not included)... [id number] Date of Service 06/29/24 Chief Complaint afib, recurrent persistent Subjective still in AFib, still on o2 Objective Vitals and Measurements T: 36.4 C (Oral) TMIN: 36.3 C (Oral) TMAX: 37 C (Oral) HR: 78 (Monitored) RR: 17 BP: 151/97 SpO2: 93% Intake and Output 7AM Yesterday to 7AM Today Intake and Output (Last 24 hours) Intake Oral Intake 1450.00 Output Urinary Catheter Output: 2100.00 Total Summary Total Intake 1450.00 Total Output 2100.00 Fluid Balance -650.00 Physical Exam General Appearance: Alert and oriented x3, no apparent distress Head: Normocephalic, atraumatic EENT: EOMI, PERRLA, mucous membranes moist Neck: Supple, no thyromegaly. Cardiac: irregular, no mrg. Lungs: Clear to auscultation bilaterally, no wheezing, rales, rhonchi. Abdomen: Nondistended, nontender, bowel sounds present. Musculoskeletal: No gross deformities. Extremities: no significant lower extremity edema, no calf tenderness, pedal pulses are present bilaterally Neurological: No focal deficits Skin: Warm, dry, intact Psychiatric: Mood congruent, cooperative Weight Dosing Weight: 63.9 kg (06/28/24) Dosing Weight: 63.9 kg (06/28/24) Medications Medications (16) Active Scheduled: (7) albuterol - ipratropium 2.5 mg-0.5 mg/3 mL Inhal Germaine UD 3 mL, Inhalation, TIDRT amiodarone 200 mg tablet 200 mg 1 tab(s), Oral, BID apixaban 5 mg tablet 5 mg 1 tab(s), Oral, BID empagliflozin 10 mg tablet 10 mg 1 tab(s), Oral, qAM furosemide 40 mg/4 mL vial 40 mg 4 mL, IV Push, BID hydralazine 25 mg Tablet 25 mg 1 tab(s), Oral, TID metoprolol succinate 50 mg ER tablet 50 mg 1 tab(s), Oral, BID Continuous: (1) nitroglycerin 50 mg/250 mL D5W 50 mg [5 mcg/min] + Dextrose 5% Premix Diluent 250 mL 250 mL, Intravenous, 1.5 mL/hr PRN: (8) dextrose 50% Solution Disp syringe 50 mL 25 gram(s) 50 mL, IV Push, AsDirected magnesium sulfate 4 gram(s)/100mL PMX 4 g 100 mL, IV Piggyback, AsDirected magnesium sulfate 50% (500mg/mL) 6 g 12 mL, IV Piggyback, AsDirected magnesium sulfate PMX 2 g 50 mL, IV Piggyback, AsDirected potassium chloride (PMX) 20 mEq/100 mL 20 mEq 100 mL, IV Piggyback, AsDirected potassium chloride 20 mEq ER tablet 20 mEq 1 tab(s), Oral, AsDirected potassium chloride 20 mEq ER tablet 40 mEq 2 tab(s), Oral, AsDirected potassium chloride 20 mEq ER tablet 40 mEq 2 tab(s), Oral, AsDirected Lab Results 06/29 04:30 WBC: 11.0 H Hgb: 13.2 Hct: 37.7 Platelet: 342 Neutrophil %: 79.4 H Glucose Level: 83 Sodium Level: 139 Potassium Level: 3.3 L BUN: 29.0 H Creatinine Lvl (s): 1.42 H Imaging Results and Diagnostics none EKG Electrocardiogram - Ordered -- 06/28/24 15:29:00 EDT Assessment/Plan HPI: 83-year-old female with longstanding persistent atrial fibrillation (amiodarone, diltiazem, and Eliquis), hypertensive urgency, heart failure with reduced ejection fraction, valvular heart disease/mitral regurgitation, history of type II VT, A-fib RVR, and chronic renal disease who was previously hospitalized in May, undergoing three cardioversions, followed by an outpatient cardioversion in June. She has been placed on amiodarone with multiple breakthrough events, and an amiodarone level has been obtained. Echo: EF 42% A/P 1. Atrial fibrillation. Recurrent Persistent. S/p multiple DCCVs. STarted amio in May. Severe, debilitating symptoms. We discussed ablation therapy, along with the risks versus benefits. - eliquis 5 mg PO BID - conitnue amiodarone - probable outpatient ablation. Will discuss further this admission - rate control as well - will do DCCV this today now that she has been on amio several eeks. . No missed doses 2. HTN - Recommend good treatment as this could help to reduce atrial fibrillation burden. 3. Comorbid conditions as outlined and described above. Thank you for the consult. Harry Bailon MD Cardiac Electrophysiology [phone] Digitally Signed by HARRY BAILON MD on 06/29/2024 07:46 AM [id number] Cardiology Consult note Date of Service June 28, 2024 Shared/Split visit with Dr. Bailon Reason for Consultation AF Referring Physician Gen Card History of Present Illness This is an 83-year-old female with a known history of longstanding persistent atrial fibrillation. Previously in the hospital in May where the patient underwent 3 different cardioversions. Followed by an outpatient cardioversion in June. She is been placed on amiodarone with multiple breakthrough events. Amiodarone level has been obtained. Past medical history is significant for 1. Longstanding persistent atrial fibrillation (amiodarone, diltiazem and Eliquis) 2. Hypertensive urgency 3. Heart failure with reduced ejection fraction 4. Valvular heart disease/mitral regurgitation 5. History of type II VT A-fib RVR 6. Chronic renal disease. Echocardiogram completed May 16, 2024 demonstrates a mildly reduced EF at 42% with moderate diffuse hypokinesis. Mitral valve has moderate regurgitation. Transesophageal echocardiogram completed May 15, 2024 demonstrates systolic function mildly reduced. Mitral valve demonstrates moderate to severe mitral regurgitation. Lab work completed on arrival demonstrates potassium at 3.7, Creatinine at 1.28 GFR 42 Troponins trending down. proBNP elevated at 8302 Today, the patient is resting in bed comfortably. She is very hesitant to repeat direct-current cardioversion. This would be her fourth and fifth direct-current cardioversion within the last 2 months. At this time, I will obtain an amiodarone level. Patient reports that she lasted in normal sinus rhythm status post cardioversion for approximately a week. Reports that she underwent direct-current cardioversion on June 19, 2024. Reports that by June 24 she was already back in A-fib with noticeable fluid retention. However given her longstanding persistent and reoccurring nature of her atrial fibrillation if the patient was maintained normal sinus rhythm; will need to move forward with ablative therapies. Given her mildly reduced EF at 42% I recommend discontinuation of calcium channel blockers. Patientneeds to be on maximally tolerated goal-directed medical therapy. Blood pressure is trending down. Continue on hypertensive urgency protocol. Review of Systems Pertinent positives per HPI all other systems reviewed and negative. Physical Exam Vitals and Measurements T: 36.6 C (Oral) TMIN: 36.5 C (Oral) TMAX: 36.6 C (Oral) HR: 88 (Monitored) RR: 20 BP: 160/94 SpO2:96% HT: 167 cm WT: 63.9 kg BMI: 22.91 Weight Dosing Weight: 63.9 kg (06/28/24) Dosing Weight: 63.9 kg (06/28/24) General - 83 yr old female appearing stated age HEENT - head normocephalic, atraumatic. Pupils equal reactive to light. Nose patent bilaterally. Oropharynx without erythema or exudate. Neck -supple, full range of motion. No carotid bruits noted. Cardiovascular - Irregular rate and rhythm. No significant murmurs appreciated. Lungs - clear to auscultation bilaterally. Abdomen - soft, nontender. Bowel sounds present in all 4 quadrants. Musculoskeletal -full weightbearing. Full range of motion in all extremities. Skin -intact, no lesions or rashes noted. Neurological - cranial nerves grossly intact. Mood and affect appropriate to situation. Peripheral vascular - No pitting edema Lab Results No 36 Hour Lab Data Assessment/Plan Orders: AMIODARONE (CORDARONE), S/P, 06/28/24 10:41:00 EDT, URGENT (collect within 2 hrs), Blood, Once, Preferred Lab: [facility], Stop date 06/28/24 10:41:00 EDT 1. Longstanding persistent atrial fibrillation (amiodarone, diltiazem and Eliquis) At this time I continue amiodarone. I would recommend outpatient ablative therapies if the patient wants to maintain normal sinus rhythm to help improve overall ejection fraction and symptoms/quality of life. Given the fact that she has had multiple direct-current cardioversions I would continue to focus onrate control. Metoprolol succinate 50 mg twice daily has been initiated to help with heart rate and blood pressure. I agree with general cardiology. Diltiazem to be discontinued. This is not goal- directed medical therapy. Ectopy leading to worsening vasodilation and fluid retention. Will need to collaborate with primary EP to see if she is a candidate for ablation. 2. Hypertensive urgency Continue on appropriate medical therapy to help lower overall blood pressure. Focus on goal-directed medical therapy. 3. Heart failure with reduced ejection fraction EF approximately 42%. Believed to be tachycardia mediated. Continue on maximally tolerable doctor medical therapy. Metoprolol succinate 50 mg twice daily was initiated to help with heart rate and blood pressure. 4. Valvular heart disease/mitral regurgitation Consider consultation to structural heart team for evaluation of mitral clip. This could help with maintaining normal sinus rhythm in the future. Problem List/Past Medical History Ongoing Atrial fibrillation Chronic renal failure, stage 3 (moderate) HFrEF (heart failure with reduced ejection fraction) HTN (hypertension) Osteoporosis Serum calcium elevated Historical Acute bronchitis due to infection DDD (degenerative disc disease), lumbar Hypercalcemia Microalbuminuria Neck pain on right side Proteinuria of undiagnosed cause Sciatica Procedure/Surgical History Colonoscopy and biopsy of colon: 11/02/19 Colonoscopy: 04/11/11 Appendectomy Cholecystectomy Abdominal hysterectomy Medications Inpatient amiodarone, 200 mg= 1 tab(s), Oral, qDay Dextrose 50% IV Push, 25 gram(s)= 50 mL, IV Push, AsDirected, PRN Eliquis, 5 mg= 1 tab(s), Oral, BID hydrALAZINE, 25 mg= 1 tab(s), Oral, TID Jardiance, 10 mg= 1 tab(s), Oral, qAM Lasix, 40 mg= 4 mL, IV Push, BID magnesium sulfate for IV bolus, 2 gram(s)= 50 mL, IV Piggyback, AsDirected, PRN magnesium sulfate for IV bolus, 4 gram(s)= 100 mL, IV Piggyback, AsDirected, PRN magnesium sulfate for IV bolus nitroGLYcerin for IV 50 mg [5 mcg/min] + Dextrose Premix titrate 250 mL potassium chloride, 20 mEq= 1 tab(s), Oral, AsDirected, PRN potassium chloride, 40 mEq= 2 tab(s), Oral, AsDirected, PRN potassium chloride, 40 mEq= 2 tab(s), Oral, AsDirected, PRN potassium chloride bolus, 20 mEq= 100 mL, IV Piggyback, AsDirected, PRN Home amiodarone 200 mg oral tablet, 200 mg= 1 tab(s), Oral, qDay, 3 refills bumetanide 1 mg oral tablet, 1 mg= 1 tab(s), Oral, BID, 3 refills Cardizem CD 240 mg/24 hours oral capsule, extended release, 240 mg= 1 cap(s), Oral, qDay, 3 refills Eliquis 5 mg oral tablet, 5 mg= 1 tab(s), Oral, BID, 3 refills Jardiance 10 mg oral tablet, 10 mg= 1 tab(s), Oral, qAM, 3 refills potassium chloride 20 mEq oral tablet, extended release, 20 mEq= 1 tab(s), Oral, qDay, 3 refills Prolia 60 mg/mL subcutaneous solution, 60 mg= 1 mL, Subcutaneous, q6mo, Has Not Started Allergies alendronate (Moderate) Myalgia amLODIPine (Mild) Edema Periactin Numbness Social History Smoking Status - 03/04/2017 Current every day smoker Alcohol - Denies Alcohol Use, 03/04/2017 Use: Never., 06/11/2024 Employment/School Status: Retired., 12/04/2018 Exercise Home/Environment None Domestic Concerns:. Living situation: Home/Independent. Single level home Lives In:., 12/04/2018 Nutrition/Health Type of diet: Regular. Appetite Good. Eating Difficulties None. Caffeine intake amount: decaf coffee., 06/11/2024 Substance Abuse - Denies Substance Abuse, 03/04/2017 Use: Never., 12/04/2018 Tobacco Nicotine Use: Former smoker, quit more than 30 days ago, quit 05/13/24. Type: Cigarettes. Number of years: 45., 06/11/2024 Family History COPD: Mother. Respiratory disease: Father. Health Status Family Member(s) Immunizations diphtheria/tetanus/pertussis (DTaP) ped: 0 unknown unit (08/14/14) pneumococcal 13-valent conjugate vaccine: 0.5 unknown unit (03/09/19) pneumococcal 23-valent vaccine(Pneumovax: 0 unknown unit (04/11/02) pneumococcal 23-valent vaccine(Pneumovax: 0 unknown unit (11/30/02) SARS-CoV-2 (COVID-19) mRNA-1273 vaccine: 0.25 unknown unit (02/12/21) SARS-CoV-2 (COVID-19) mRNA-1273 vaccine: 0.5 unknown unit (07/26/20) SARS-CoV-2 (COVID-19) mRNA-1273 vaccine: 0.5 unknown unit (06/28/20) tetanus/diphth/pertuss (Tdap) adult/adol: 0.5 mL (08/14/14) zoster vaccine, inactivated: 1 unknown unit (08/19/20) zoster vaccine, inactivated: 1 unknown unit (04/18/20) Digitally Signed by MARCELLE ROSAS on 06/28/2024 10:57 AM [id number] Cardiology Consult note Date of Service June 28, 2024 Shared/Split visit with Dr. Bailon Reason for Consultation AF Referring Physician Gen Card History of Present Illness This is an 83-year-old female with a known history of longstanding persistent atrial fibrillation. Previously in the hospital in May where the patient underwent 3 different cardioversions. Followed by an outpatient cardioversion in June. She is been placed on amiodarone with multiple breakthrough events. Amiodarone level has been obtained. Past medical history is significant for 1. Longstanding persistent atrial fibrillation (amiodarone, diltiazem and Eliquis) 2. Hypertensive urgency 3. Heart failure with reduced ejection fraction 4. Valvular heart disease/mitral regurgitation 5. History of type II VT A-fib RVR 6. Chronic renal disease. Echocardiogram completed May 16, 2024 demonstrates a mildly reduced EF at 42% with moderate diffuse hypokinesis. Mitral valve has moderate regurgitation. Transesophageal echocardiogram completed May 15, 2024 demonstrates systolic function mildly reduced. Mitral valve demonstrates moderate to severe mitral regurgitation. Lab work completed on arrival demonstrates potassium at 3.7, Creatinine at 1.28 GFR 42 Troponins trending down. proBNP elevated at 8302 Today, the patient is resting in bed comfortably. She is very hesitant to repeat direct-current cardioversion. This would be her fourth and fifth direct-current cardioversion within the last 2 months. At this time, I will obtain an amiodarone level. Patient reports that she lasted in normal sinus rhythm status post cardioversion for approximately a week. Reports that she underwent direct-current cardioversion on June 19, 2024. Reports that by June 24 she was already back in A-fib with noticeable fluid retention. However given her longstanding persistent and reoccurring nature of her atrial fibrillation if the patient was maintained normal sinus rhythm; will need to move forward with ablative therapies. Given her mildly reduced EF at 42% I recommend discontinuation of calcium channel blockers. Patientneeds to be on maximally tolerated goal-directed medical therapy. Blood pressure is trending down. Continue on hypertensive urgency protocol. Review of Systems Pertinent positives per HPI all other systems reviewed and negative. Physical Exam Vitals and Measurements T: 36.6 C (Oral) TMIN: 36.5 C (Oral) TMAX: 36.6 C (Oral) HR: 88 (Monitored) RR: 20 BP: 160/94 SpO2:96% HT: 167 cm WT: 63.9 kg BMI: 22.91 Weight Dosing Weight: 63.9 kg (06/28/24) Dosing Weight: 63.9 kg (06/28/24) General - 83 yr old female appearing stated age HEENT - head normocephalic, atraumatic. Pupils equal reactive to light. Nose patent bilaterally. Oropharynx without erythema or exudate. Neck -supple, full range of motion. No carotid bruits noted. Cardiovascular - Irregular rate and rhythm. No significant murmurs appreciated. Lungs - clear to auscultation bilaterally. Abdomen - soft, nontender. Bowel sounds present in all 4 quadrants. Musculoskeletal -full weightbearing. Full range of motion in all extremities. Skin -intact, no lesions or rashes noted. Neurological - cranial nerves grossly intact. Mood and affect appropriate to situation. Peripheral vascular - No pitting edema Lab Results No 36 Hour Lab Data Assessment/Plan Orders: AMIODARONE (CORDARONE), S/P, 06/28/24 10:41:00 EDT, URGENT (collect within 2 hrs), Blood, Once, Preferred Lab: [facility], Stop date 06/28/24 10:41:00 EDT 1. Longstanding persistent atrial fibrillation (amiodarone, diltiazem and Eliquis) At this time I continue amiodarone. I would recommend outpatient ablative therapies if the patient wants to maintain normal sinus rhythm to help improve overall ejection fraction and symptoms/quality of life. Given the fact that she has had multiple direct-current cardioversions I would continue to focus onrate control. Metoprolol succinate 50 mg twice daily has been initiated to help with heart rate and blood pressure. I agree with general cardiology. Diltiazem to be discontinued. This is not goal- directed medical therapy. Ectopy leading to worsening vasodilation and fluid retention. Will need to collaborate with primary EP to see if she is a candidate for ablation. 2. Hypertensive urgency Continue on appropriate medical therapy to help lower overall blood pressure. Focus on goal-directed medical therapy. 3. Heart failure with reduced ejection fraction EF approximately 42%. Believed to be tachycardia mediated. Continue on maximally tolerable doctor medical therapy. Metoprolol succinate 50 mg twice daily was initiated to help with heart rate and blood pressure. 4. Valvular heart disease/mitral regurgitation Consider consultation to structural heart team for evaluation of mitral clip. This could help with maintaining normal sinus rhythm in the future. Problem List/Past Medical History Ongoing Atrial fibrillation Chronic renal failure, stage 3 (moderate) HFrEF (heart failure with reduced ejection fraction) HTN (hypertension) Osteoporosis Serum calcium elevated Historical Acute bronchitis due to infection DDD (degenerative disc disease), lumbar Hypercalcemia Microalbuminuria Neck pain on right side Proteinuria of undiagnosed cause Sciatica Procedure/Surgical History Colonoscopy and biopsy of colon: 11/02/19 Colonoscopy: 04/11/11 Appendectomy Cholecystectomy Abdominal hysterectomy Medications Inpatient amiodarone, 200 mg= 1 tab(s), Oral, qDay Dextrose 50% IV Push, 25 gram(s)= 50 mL, IV Push, AsDirected, PRN Eliquis, 5 mg= 1 tab(s), Oral, BID hydrALAZINE, 25 mg= 1 tab(s), Oral, TID Jardiance, 10 mg= 1 tab(s), Oral, qAM Lasix, 40 mg= 4 mL, IV Push, BID magnesium sulfate for IV bolus, 2 gram(s)= 50 mL, IV Piggyback, AsDirected, PRN magnesium sulfate for IV bolus, 4 gram(s)= 100 mL, IV Piggyback, AsDirected, PRN magnesium sulfate for IV bolus nitroGLYcerin for IV 50 mg [5 mcg/min] + Dextrose Premix titrate 250 mL potassium chloride, 20 mEq= 1 tab(s), Oral, AsDirected, PRN potassium chloride, 40 mEq= 2 tab(s), Oral, AsDirected, PRN potassium chloride, 40 mEq= 2 tab(s), Oral, AsDirected, PRN potassium chloride bolus, 20 mEq= 100 mL, IV Piggyback, AsDirected, PRN Home amiodarone 200 mg oral tablet, 200 mg= 1 tab(s), Oral, qDay, 3 refills bumetanide 1 mg oral tablet, 1 mg= 1 tab(s), Oral, BID, 3 refills Cardizem CD 240 mg/24 hours oral capsule, extended release, 240 mg= 1 cap(s), Oral, qDay, 3 refills Eliquis 5 mg oral tablet, 5 mg= 1 tab(s), Oral, BID, 3 refills Jardiance 10 mg oral tablet, 10 mg= 1 tab(s), Oral, qAM, 3 refills potassium chloride 20 mEq oral tablet, extended release, 20 mEq= 1 tab(s), Oral, qDay, 3 refills Prolia 60 mg/mL subcutaneous solution, 60 mg= 1 mL, Subcutaneous, q6mo, Has Not Started Allergies alendronate (Moderate) Myalgia amLODIPine (Mild) Edema Periactin Numbness Social History Smoking Status - 03/04/2017 Current every day smoker Alcohol - Denies Alcohol Use, 03/04/2017 Use: Never., 06/11/2024 Employment/School Status: Retired., 12/04/2018 Exercise Home/Environment None Domestic Concerns:. Living situation: Home/Independent. Single level home Lives In:., 12/04/2018 Nutrition/Health Type of diet: Regular. Appetite Good. Eating Difficulties None. Caffeine intake amount: decaf coffee., 06/11/2024 Substance Abuse - Denies Substance Abuse, 03/04/2017 Use: Never., 12/04/2018 Tobacco Nicotine Use: Former smoker, quit more than 30 days ago, quit 05/13/24. Type: Cigarettes. Number of years: 45., 06/11/2024 Family History COPD: Mother. Respiratory disease: Father. Health Status Family Member(s) Immunizations diphtheria/tetanus/pertussis (DTaP) ped: 0 unknown unit (08/14/14) pneumococcal 13-valent conjugate vaccine: 0.5 unknown unit (03/09/19) pneumococcal 23-valent vaccine(Pneumovax: 0 unknown unit (04/11/02) pneumococcal 23-valent vaccine(Pneumovax: 0 unknown unit (03/10/02) SARS-CoV-2 (COVID-19) mRNA-1273 vaccine: 0.25 unknown unit (02/12/21) SARS-CoV-2 (COVID-19) mRNA-1273 vaccine: 0.5 unknown unit (07/26/20) SARS-CoV-2 (COVID-19) mRNA-1273 vaccine: 0.5 unknown unit (06/28/20) tetanus/diphth/pertuss (Tdap) adult/adol: 0.5 mL (08/14/14) zoster vaccine, inactivated: 1 unknown unit (08/19/20) zoster vaccine, inactivated: 1 unknown unit (04/18/20) Digitally Signed by MARCELLE ROSAS on 06/28/2024 10:57 AM [id number] Respiratory therapy Hospital Progress note Respiratory Therapy Evaluation Entered On: 06/28/2024 19:51 EDT Performed On: 06/28/2024 19:51 EDT by Megan Jaimes RRT Respiratory Therapy Evaluation Pulmonary Status : Smoking history, quit >1 year ago Chest X-Ray : Infiltrates or atelectasis in one lobe Respiratory Therapy Evaluation Score : 7 RT Evaluation Steps : Chart review completed, Assessment completed: RR, HR, Auscultation, Cough, Patient Interview completed Respiratory Evaluation Triage Score : (6-10) Freq: TIDRT & Albuterol Q2hRT prn RT Assessment [Frequency/Schedule] : Triage score 6-10, change frequency to TIDRT and Albuterol Q2hRT PRN per protocol Megan Jaimes RRT - 06/28/2024 19:52 EDT Surgical Status : No surgery Respiratory Pattern (RT) : RR 21-25 BPM, Tachypnea Breath Sounds (RT) : Expiratory wheezes Cough (RT) : Strong, non-productive Level of Activity : Ambulatory Mental Status : Alert, oriented and cooperative Megan Jaimes RRT - 06/28/2024 19:51 EDT Digitally Signed by Megan Jaimes RRT on 06/28/2024 07:52 PM [id number] History and physical note Date of Service 06/28/2024 04:50:45 History of Present Illness 83-year-old female with history of recently diagnosed atrial fibrillation (status post cardioversion on June 19), recently diagnosed HFmrEF, hypertension, osteoporosis Being transferred from [place] for acute on chronic HFmrEF in the setting of hypertensive emergency. Patient reports she has had worsening shortness of breath, orthopnea, PND, lower extremity edema since last Tuesday. Denies chest pain, infectious symptoms. States this is similar to her previous presentation of heart failure and A-fib. She reports adherence to her medications. States that she watches her diet. She has been drinking a good amount of water for hydration. Patient was initially hypertensive to systolics in the 200s. Otherwise hemodynamically stable on 4 L. Lab work showed mild leukocytosis 12.6. COVID flu RSV negative. Slight elevation of creatinine at 1.28, proBNP 8302, troponin 154 (previous troponin last month was 141). EKG showed coarse A-fib. Chest x-ray showed pulmonary edema and bilateral pleural effusions She was given IV Lasix 40 and placed on nitro drip. Here patient says her breathing is improved after her IV Lasix. However, she is still significantlysymptomatic. Review of Systems Per HPI, Complete ROS otherwise negative Physical Exam Vitals and Measurements No qualifying data available. General: AAOX3, NAD HEENT: Anicteric sclera, MMM Neck: Trachea midline, + JVD appreciated CVS: irregular Lung: CTAB, no wheezes/rhonchi/rales Abd: Soft, NT/ND Extrem: WWP, + LE edema Skin: Warm, Intact Neuro: AAOX3, spontaneous movement of all extremities Psych: Appropriate mood & affect Lab Results No 36 Hour Lab Data Assessment/Plan Recurrent paroxysmal atrial fibrillation Acute on chronic HFmrEF in the setting of atrial fibrillation and hypertensive emergency History of: 83-year-old female with history of recently diagnosed atrial fibrillation (status post cardioversion), recently diagnosed HFmrEF, hypertension, osteoporosis Being transferred from [place] for acute on chronic HFmrEF in the setting of hypertensive emergency. Patient reports she has had worsening shortness of breath, orthopnea, PND, lower extremity edema since last Tuesday. Denies chest pain, infectious symptoms. States this is similar to her previous presentation of heart failure and A-fib. She reports adherence to her medications. States that she watches her diet. She has been drinking a good amount of water for hydration. Patient was initially hypertensive to systolics in the 200s. Otherwise hemodynamically stable on 4 L. Lab work showed mild leukocytosis 12.6. COVID flu RSV negative. Slight elevation of creatinine at 1.28, proBNP 8302, troponin 154 (previous troponin last month was 141). EKG showed coarse A-fib. Chest x-ray showed pulmonary edema and bilateral pleural effusions Here patient says her breathing is improved after her IV Lasix. However, she is still significantlysymptomatic. Plan Patient is a volume overloaded, hypertensive, and atrial fibrillation with rates in the 90s to 100s. Since patient had good response to IV Lasix 40, will continue with twice daily dosing. Will start hydralazine 25 3 times daily in order to wean nitro drip. Patient reports adherence to her Eliquis, therefore we can perform cardioversion without doing a WARREN. Resume home medications Consider EP consult in the setting of recurrent paroxysmal atrial fibrillation. Telemetry monitoring Problem List/Past Medical History Ongoing Atrial fibrillation Chronic renal failure, stage 3 (moderate) HFrEF (heart failure with reduced ejection fraction) HTN (hypertension) Osteoporosis Serum calcium elevated Historical Acute bronchitis due to infection DDD (degenerative disc disease), lumbar Hypercalcemia Microalbuminuria Neck pain on right side Proteinuria of undiagnosed cause Sciatica Procedure/Surgical History Colonoscopy and biopsy of colon: 11/02/19 Colonoscopy: 04/11/11 Appendectomy Cholecystectomy Abdominal hysterectomy Medications Home Medications (7) Active amiodarone 200 mg oral tablet 200 mg = 1 tab(s), Oral, qDay bumetanide 1 mg oral tablet 1 mg = 1 tab(s), Oral, BID Cardizem CD 240 mg/24 hours oral capsule, extended release 240 mg = 1 cap(s), Oral, qDay Eliquis 5 mg oral tablet 5 mg = 1 tab(s), Oral, BID Jardiance 10 mg oral tablet 10 mg = 1 tab(s), Oral, qAM potassium chloride 20 mEq oral tablet, extended release 20 mEq = 1 tab(s), Oral, qDay Prolia 60 mg/mL subcutaneous solution 60 mg = 1 mL, Subcutaneous, q6mo Allergies alendronate (Moderate) Myalgia amLODIPine (Mild) Edema Periactin Numbness Social History Smoking Status - 03/04/2017 Current every day smoker Alcohol - Denies Alcohol Use, 03/04/2017 Use: Never., 06/11/2024 Employment/School Status: Retired., 12/04/2018 Exercise Home/Environment None Domestic Concerns:. Living situation: Home/Independent. Single level home Lives In:., 12/04/2018 Nutrition/Health Type of diet: Regular. Appetite Good. Eating Difficulties None. Caffeine intake amount: decaf coffee., 06/11/2024 Substance Abuse - Denies Substance Abuse, 03/04/2017 Use: Never., 12/04/2018 Tobacco Nicotine Use: Former smoker, quit more than 30 days ago, quit 05/13/24. Type: Cigarettes. Number of years: 45., 06/11/2024 Family History COPD: Mother. Respiratory disease: Father. Health Status Family Member(s) Immunizations diphtheria/tetanus/pertussis (DTaP) ped: 0 unknown unit (08/14/14) pneumococcal 13-valent conjugate vaccine: 0.5 unknown unit (03/09/19) pneumococcal 23-valent vaccine(Pneumovax: 0 unknown unit (04/11/02) pneumococcal 23-valent vaccine(Pneumovax: 0 unknown unit (03/10/02) SARS-CoV-2 (COVID-19) mRNA-1273 vaccine: 0.25 unknown unit (02/12/21) SARS-CoV-2 (COVID-19) mRNA-1273 vaccine: 0.5 unknown unit (07/26/20) SARS-CoV-2 (COVID-19) mRNA-1273 vaccine: 0.5 unknown unit (06/28/20) tetanus/diphth/pertuss (Tdap) adult/adol: 0.5 mL (08/14/14) zoster vaccine, inactivated: 1 unknown unit (08/19/20) zoster vaccine, inactivated: 1 unknown unit (04/18/20) Code Status No qualifying data available. Digitally Signed by MARCO HINDS DO on 06/28/2024 06:08 AM [id number] Evaluation + Plan noteExtracted from: Title:History and Physical Author:SHASHANK HINDS DO Date:06/28/24 Recurrent paroxysmal atrial fibrillation Acute on chronic HFmrEF in the setting of atrial fibrillation and hypertensive emergency History of: 83-year-old female with history of recently diagnosed atrial fibrillation (status post cardioversion), recently diagnosed HFmrEF, hypertension, osteoporosis Being transferred from [place] for acute on chronic HFmrEF in the setting of hypertensive emergency. Patient reports she has had worsening shortness of breath, orthopnea, PND, lower extremity edema since last Tuesday. Denies chest pain, infectious symptoms. States this is similar to her previous presentation of heart failure and A-fib. She reports adherence to her medications. States that she watches her diet. She has been drinking a good amount of water for hydration. Patient was initially hypertensive to systolics in the 200s. Otherwise hemodynamically stable on 4 L. Lab work showed mild leukocytosis 12.6. COVID flu RSV negative. Slight elevation of creatinine at 1.28, proBNP 8302, troponin 154 (previous troponin last month was 141). EKG showed coarse A-fib. Chest x-ray showed pulmonary edema and bilateral pleural effusions Here patient says her breathing is improved after her IV Lasix. However, she is still significantly symptomatic. Plan Patient is a volume overloaded, hypertensive, and atrial fibrillation with rates in the 90s to 100s. Since patient had good response to IV Lasix 40, will continue with twice daily dosing. Will start hydralazine 25 3 times daily in order to wean nitro drip. Patient reports adherence to her Eliquis, therefore we can perform cardioversion without doing a WARREN. Resume home medications Consider EP consult in the setting of recurrent paroxysmal atrial fibrillation. Telemetry monitoring Addendum by PARISA MATTHEWS MD on June 28, 2024 16:45:45 EDT Patient was seen and examined at bedside on the date the note was created unless specified. Agree with the note and findings as detailed in note as above. I personally reviewed the pertinent labs, performed physical examination, reviewed pertinent previous cardiology test results. Cardiology service will continue to follow up on the patient. Future Appointments Appointment Date:07/10/2024 03:00:00 PM Scheduled Provider:ASIM DIEHL Location:[facility] Appointment Type:CV OV Appointment Date:07/19/2024 03:30:00 PM Scheduled Provider:EMILIANO LEAL DO Location:[facility] Appointment Type:PC OV Appointment Date:08/07/2024 03:00:00 PM Scheduled Provider:ASIM DIEHL Location:[facility] Appointment Type:CV OV Appointment Date:09/11/2024 01:00:00 PM Scheduled Provider:MARCELLE ROSAS Location:[facility] Appointment Type:CV OV Diagnostic Tests Pending * AMIODARONE (CORDARONE), S/P 06/29/24 Future Scheduled Tests Radiology* MA Mammo Diagnostic Right w/ Brian 11/23/23 * US Breast Right Limited 11/23/23 [facility] 03-20-2025 Cardiology Consult note Date of Service June 28, 2024 Shared/Split visit with Dr. Bailon Reason for Consultation AF Referring Physician Gen Card History of Present Illness This is an 83-year-old female with a known history of longstanding persistent atrial fibrillation. Previously in the hospital in May where the patient underwent 3 different cardioversions. Followed by an outpatient cardioversion in June. She is been placed on amiodarone with multiple breakthrough events. Amiodarone level has been obtained. Past medical history is significant for 1. Longstanding persistent atrial fibrillation (amiodarone, diltiazem and Eliquis) 2. Hypertensive urgency 3. Heart failure with reduced ejection fraction 4. Valvular heart disease/mitral regurgitation 5. History of type II VT A-fib RVR 6. Chronic renal disease. Echocardiogram completed May 16, 2024 demonstrates a mildly reduced EF at 42% with moderate diffuse hypokinesis. Mitral valve has moderate regurgitation. Transesophageal echocardiogram completed May 15, 2024 demonstrates systolic function mildly reduced. Mitral valve demonstrates moderate to severe mitral regurgitation. Lab work completed on arrival demonstrates potassium at 3.7, Creatinine at 1.28 GFR 42 Troponins trending down. proBNP elevated at 8302 Today, the patient is resting in bed comfortably. She is very hesitant to repeat direct-current cardioversion. This would be her fourth and fifth direct-current cardioversion within the last 2 months. At this time, I will obtain an amiodarone level. Patient reports that she lasted in normal sinus rhythm status post cardioversion for approximately a week. Reports that she underwent direct-current cardioversion on June 19, 2024. Reports that by June 24 she was already back in A-fib with noticeable fluid retention. However given her longstanding persistent and reoccurring nature of her atrial fibrillation if the patient was maintained normal sinus rhythm; will need to move forward with ablative therapies. Given her mildly reduced EF at 42% I recommend discontinuation of calcium channel blockers. Patientneeds to be on maximally tolerated goal-directed medical therapy. Blood pressure is trending down. Continue on hypertensive urgency protocol. Review of Systems Pertinent positives per HPI all other systems reviewed and negative. Physical Exam Vitals and Measurements T: 36.6 C (Oral) TMIN: 36.5 C (Oral) TMAX: 36.6 C (Oral) HR: 88 (Monitored) RR: 20 BP: 160/94 SpO2:96% HT: 167 cm WT: 63.9 kg BMI: 22.91 Weight Dosing Weight: 63.9 kg (06/28/24) Dosing Weight: 63.9 kg (06/28/24) General - 83 yr old female appearing stated age HEENT - head normocephalic, atraumatic. Pupils equal reactive to light. Nose patent bilaterally. Oropharynx without erythema or exudate. Neck -supple, full range of motion. No carotid bruits noted. Cardiovascular - Irregular rate and rhythm. No significant murmurs appreciated. Lungs - clear to auscultation bilaterally. Abdomen - soft, nontender. Bowel sounds present in all 4 quadrants. Musculoskeletal -full weightbearing. Full range of motion in all extremities. Skin -intact, no lesions or rashes noted. Neurological - cranial nerves grossly intact. Mood and affect appropriate to situation. Peripheral vascular - No pitting edema Lab Results No 36 Hour Lab Data Assessment/Plan Orders: AMIODARONE (CORDARONE), S/P, 06/28/24 10:41:00 EDT, URGENT (collect within 2 hrs), Blood, Once, Preferred Lab: [facility], Stop date 06/28/24 10:41:00 EDT 1. Longstanding persistent atrial fibrillation (amiodarone, diltiazem and Eliquis) At this time I continue amiodarone. I would recommend outpatient ablative therapies if the patient wants to maintain normal sinus rhythm to help improve overall ejection fraction and symptoms/quality of life. Given the fact that she has had multiple direct-current cardioversions I would continue to focus onrate control. Metoprolol succinate 50 mg twice daily has been initiated to help with heart rate and blood pressure. I agree with general cardiology. Diltiazem to be discontinued. This is not goal- directed medical therapy. Ectopy leading to worsening vasodilation and fluid retention. Will need to collaborate with primary EP to see if she is a candidate for ablation. 2. Hypertensive urgency Continue on appropriate medical therapy to help lower overall blood pressure. Focus on goal-directed medical therapy. 3. Heart failure with reduced ejection fraction EF approximately 42%. Believed to be tachycardia mediated. Continue on maximally tolerable doctor medical therapy. Metoprolol succinate 50 mg twice daily was initiated to help with heart rate and blood pressure. 4. Valvular heart disease/mitral regurgitation Consider consultation to structural heart team for evaluation of mitral clip. This could help with maintaining normal sinus rhythm in the future. Problem List/Past Medical History Ongoing Atrial fibrillation Chronic renal failure, stage 3 (moderate) HFrEF (heart failure with reduced ejection fraction) HTN (hypertension) Osteoporosis Serum calcium elevated Historical Acute bronchitis due to infection DDD (degenerative disc disease), lumbar Hypercalcemia Microalbuminuria Neck pain on right side Proteinuria of undiagnosed cause Sciatica Procedure/Surgical History Colonoscopy and biopsy of colon: 11/02/19 Colonoscopy: 04/11/11 Appendectomy Cholecystectomy Abdominal hysterectomy Medications Inpatient amiodarone, 200 mg= 1 tab(s), Oral, qDay Dextrose 50% IV Push, 25 gram(s)= 50 mL, IV Push, AsDirected, PRN Eliquis, 5 mg= 1 tab(s), Oral, BID hydrALAZINE, 25 mg= 1 tab(s), Oral, TID Jardiance, 10 mg= 1 tab(s), Oral, qAM Lasix, 40 mg= 4 mL, IV Push, BID magnesium sulfate for IV bolus, 2 gram(s)= 50 mL, IV Piggyback, AsDirected, PRN magnesium sulfate for IV bolus, 4 gram(s)= 100 mL, IV Piggyback, AsDirected, PRN magnesium sulfate for IV bolus nitroGLYcerin for IV 50 mg [5 mcg/min] + Dextrose Premix titrate 250 mL potassium chloride, 20 mEq= 1 tab(s), Oral, AsDirected, PRN potassium chloride, 40 mEq= 2 tab(s), Oral, AsDirected, PRN potassium chloride, 40 mEq= 2 tab(s), Oral, AsDirected, PRN potassium chloride bolus, 20 mEq= 100 mL, IV Piggyback, AsDirected, PRN Home amiodarone 200 mg oral tablet, 200 mg= 1 tab(s), Oral, qDay, 3 refills bumetanide 1 mg oral tablet, 1 mg= 1 tab(s), Oral, BID, 3 refills Cardizem CD 240 mg/24 hours oral capsule, extended release, 240 mg= 1 cap(s), Oral, qDay, 3 refills Eliquis 5 mg oral tablet, 5 mg= 1 tab(s), Oral, BID, 3 refills Jardiance 10 mg oral tablet, 10 mg= 1 tab(s), Oral, qAM, 3 refills potassium chloride 20 mEq oral tablet, extended release, 20 mEq= 1 tab(s), Oral, qDay, 3 refills Prolia 60 mg/mL subcutaneous solution, 60 mg= 1 mL, Subcutaneous, q6mo, Has Not Started Allergies alendronate (Moderate) Myalgia amLODIPine (Mild) Edema Periactin Numbness Social History Smoking Status - 03/04/2017 Current every day smoker Alcohol - Denies Alcohol Use, 03/04/2017 Use: Never., 06/11/2024 Employment/School Status: Retired., 12/04/2018 Exercise Home/Environment None Domestic Concerns:. Living situation: Home/Independent. Single level home Lives In:., 12/04/2018 Nutrition/Health Type of diet: Regular. Appetite Good. Eating Difficulties None. Caffeine intake amount: decaf coffee., 06/11/2024 Substance Abuse - Denies Substance Abuse, 03/04/2017 Use: Never., 12/04/2018 Tobacco Nicotine Use: Former smoker, quit more than 30 days ago, quit 05/13/24. Type: Cigarettes. Number of years: 45., 06/11/2024 Family History COPD: Mother. Respiratory disease: Father. Health Status Family Member(s) Immunizations diphtheria/tetanus/pertussis (DTaP) ped: 0 unknown unit (08/14/14) pneumococcal 13-valent conjugate vaccine: 0.5 unknown unit (03/09/19) pneumococcal 23-valent vaccine(Pneumovax: 0 unknown unit (04/11/02) pneumococcal 23-valent vaccine(Pneumovax: 0 unknown unit (03/10/02) SARS-CoV-2 (COVID-19) mRNA-1273 vaccine: 0.25 unknown unit (02/12/21) SARS-CoV-2 (COVID-19) mRNA-1273 vaccine: 0.5 unknown unit (07/26/20) SARS-CoV-2 (COVID-19) mRNA-1273 vaccine: 0.5 unknown unit (06/28/20) tetanus/diphth/pertuss (Tdap) adult/adol: 0.5 mL (08/14/14) zoster vaccine, inactivated: 1 unknown unit (08/19/20) zoster vaccine, inactivated: 1 unknown unit (04/18/20) Digitally Signed by MARCELLE ROSAS on 06/28/2024 10:57 AM [id number] Note* Exam Date Time Procedure Performing Provider Status 06/28/24 4:57 AM Electrocardiogram - EKG - CV LISANDRO ZACARIAS MD; Auth (Verified) ECG Final Report ATRIAL FIBRILLATION Electronic Signature: LISANDRO LANGE MD 06/29/2024 16:45:39 [id number] History and physical note Date of Service 06/28/2024 04:50:45 History of Present Illness 83-year-old female with history of recently diagnosed atrial fibrillation (status post cardioversion on June 19), recently diagnosed HFmrEF, hypertension, osteoporosis Being transferred from [place] for acute on chronic HFmrEF in the setting of hypertensive emergency. Patient reports she has had worsening shortness of breath, orthopnea, PND, lower extremity edema since last Tuesday. Denies chest pain, infectious symptoms. States this is similar to her previous presentation of heart failure and A-fib. She reports adherence to her medications. States that she watches her diet. She has been drinking a good amount of water for hydration. Patient was initially hypertensive to systolics in the 200s. Otherwise hemodynamically stable on 4 L. Lab work showed mild leukocytosis 12.6. COVID flu RSV negative. Slight elevation of creatinine at 1.28, proBNP 8302, troponin 154 (previous troponin last month was 141). EKG showed coarse A-fib. Chest x-ray showed pulmonary edema and bilateral pleural effusions She was given IV Lasix 40 and placed on nitro drip. Here patient says her breathing is improved after her IV Lasix. However, she is still significantlysymptomatic. Review of Systems Per HPI, Complete ROS otherwise negative Physical Exam Vitals and Measurements No qualifying data available. General: AAOX3, NAD HEENT: Anicteric sclera, MMM Neck: Trachea midline, + JVD appreciated CVS: irregular Lung: CTAB, no wheezes/rhonchi/rales Abd: Soft, NT/ND Extrem: WWP, + LE edema Skin: Warm, Intact Neuro: AAOX3, spontaneous movement of all extremities Psych: Appropriate mood & affect Lab Results No 36 Hour Lab Data Assessment/Plan Recurrent paroxysmal atrial fibrillation Acute on chronic HFmrEF in the setting of atrial fibrillation and hypertensive emergency History of: 83-year-old female with history of recently diagnosed atrial fibrillation (status post cardioversion), recently diagnosed HFmrEF, hypertension, osteoporosis Being transferred from [place] for acute on chronic HFmrEF in the setting of hypertensive emergency. Patient reports she has had worsening shortness of breath, orthopnea, PND, lower extremity edema since last Tuesday. Denies chest pain, infectious symptoms. States this is similar to her previous presentation of heart failure and A-fib. She reports adherence to her medications. States that she watches her diet. She has been drinking a good amount of water for hydration. Patient was initially hypertensive to systolics in the 200s. Otherwise hemodynamically stable on 4 L. Lab work showed mild leukocytosis 12.6. COVID flu RSV negative. Slight elevation of creatinine at 1.28, proBNP 8302, troponin 154 (previous troponin last month was 141). EKG showed coarse A-fib. Chest x-ray showed pulmonary edema and bilateral pleural effusions Here patient says her breathing is improved after her IV Lasix. However, she is still significantlysymptomatic. Plan Patient is a volume overloaded, hypertensive, and atrial fibrillation with rates in the 90s to 100s. Since patient had good response to IV Lasix 40, will continue with twice daily dosing. Will start hydralazine 25 3 times daily in order to wean nitro drip. Patient reports adherence to her Eliquis, therefore we can perform cardioversion without doing a WARREN. Resume home medications Consider EP consult in the setting of recurrent paroxysmal atrial fibrillation. Telemetry monitoring Problem List/Past Medical History Ongoing Atrial fibrillation Chronic renal failure, stage 3 (moderate) HFrEF (heart failure with reduced ejection fraction) HTN (hypertension) Osteoporosis Serum calcium elevated Historical Acute bronchitis due to infection DDD (degenerative disc disease), lumbar Hypercalcemia Microalbuminuria Neck pain on right side Proteinuria of undiagnosed cause Sciatica Procedure/Surgical History Colonoscopy and biopsy of colon: 11/02/19 Colonoscopy: 04/11/11 Appendectomy Cholecystectomy Abdominal hysterectomy Medications Home Medications (7) Active amiodarone 200 mg oral tablet 200 mg = 1 tab(s), Oral, qDay bumetanide 1 mg oral tablet 1 mg = 1 tab(s), Oral, BID Cardizem CD 240 mg/24 hours oral capsule, extended release 240 mg = 1 cap(s), Oral, qDay Eliquis 5 mg oral tablet 5 mg = 1 tab(s), Oral, BID Jardiance 10 mg oral tablet 10 mg = 1 tab(s), Oral, qAM potassium chloride 20 mEq oral tablet, extended release 20 mEq = 1 tab(s), Oral, qDay Prolia 60 mg/mL subcutaneous solution 60 mg = 1 mL, Subcutaneous, q6mo Allergies alendronate (Moderate) Myalgia amLODIPine (Mild) Edema Periactin Numbness Social History Smoking Status - 03/04/2017 Current every day smoker Alcohol - Denies Alcohol Use, 03/04/2017 Use: Never., 06/11/2024 Employment/School Status: Retired., 12/04/2018 Exercise Home/Environment None Domestic Concerns:. Living situation: Home/Independent. Single level home Lives In:., 12/04/2018 Nutrition/Health Type of diet: Regular. Appetite Good. Eating Difficulties None. Caffeine intake amount: decaf coffee., 06/11/2024 Substance Abuse - Denies Substance Abuse, 03/04/2017 Use: Never., 12/04/2018 Tobacco Nicotine Use: Former smoker, quit more than 30 days ago, quit 05/13/24. Type: Cigarettes. Number of years: 45., 06/11/2024 Family History COPD: Mother. Respiratory disease: Father. Health Status Family Member(s) Immunizations diphtheria/tetanus/pertussis (DTaP) ped: 0 unknown unit (08/14/14) pneumococcal 13-valent conjugate vaccine: 0.5 unknown unit (03/09/19) pneumococcal 23-valent vaccine(Pneumovax: 0 unknown unit (04/11/02) pneumococcal 23-valent vaccine(Pneumovax: 0 unknown unit (03/10/02) SARS-CoV-2 (COVID-19) mRNA-1273 vaccine: 0.25 unknown unit (02/12/21) SARS-CoV-2 (COVID-19) mRNA-1273 vaccine: 0.5 unknown unit (07/26/20) SARS-CoV-2 (COVID-19) mRNA-1273 vaccine: 0.5 unknown unit (06/28/20) tetanus/diphth/pertuss (Tdap) adult/adol: 0.5 mL (08/14/14) zoster vaccine, inactivated: 1 unknown unit (08/19/20) zoster vaccine, inactivated: 1 unknown unit (04/18/20) Code Status No qualifying data available. Digitally Signed by MARCO HINDS DO on 06/28/2024 06:08 AM [id number] Hospital Discharge instructions Patient Education 06/19/2024 09:03:39 Monitored Anesthesia Care, Care After Monitored Anesthesia Care, Care After These instructions provide you with information about caring for yourself after your procedure. Your health care provider may also give you more specific instructions. Your treatment has been plannedaccording to current medical practices, but problems sometimes occur. Call your health care provider if you have any problems or questions after your procedure. What can I expect after the procedure? After your procedure, you may: Feel sleepy for several hours. Feel clumsy and have poor balance for several hours. Feel forgetful about what happened after the procedure. Have poor judgment for several hours. Feel nauseous or vomit. Have a sore throat if you had a breathing tube during the procedure. Follow these instructions at home: For at least 24 hours after the procedure: Have a responsible adult stay with you. It is important to have someone help care for you until youare awake and alert. Rest as needed. Do not: ?Participate in activities in which you could fall or become injured. ?Drive. ?Use heavy machinery. ?Drink alcohol. ?Take sleeping pills or medicines that cause drowsiness. ?Make important decisions or sign legal documents. ?Take care of children on your own. Eating and drinking Follow the diet that is recommended by your health care provider. If you vomit, drink water, juice, or soup when you can drink without vomiting. Make sure you have little or no nausea before eating solid foods. General instructions Take [id number] and prescription medicines only as told by your health care provider. If you have sleep apnea, surgery and certain medicines can increase your risk for breathing problems. Follow instructions from your health care provider about wearing your sleep device: ?Anytime you are sleeping, including during daytime naps. ?While taking prescription pain medicines, sleeping medicines, or medicines that make you drowsy. If you smoke, do not smoke without supervision. Keep all follow-up visits as told by your health care provider. This is important. Contact a health care provider if: You keep feeling nauseous or you keep vomiting. You feel light-headed. You develop a rash. You have a fever. Get help right away if: You have trouble breathing. Summary For several hours after your procedure, you may feel sleepy and have poor judgment. Have a responsible adult stay with you for at least 24 hours or until you are awake and alert. This information is not intended to replace advice given to you by your health care provider. Make sure you discuss any questions you have with your health care provider. Document Released: 07/18/2016 Document Revised: 06/26/2018 Document Reviewed: 07/18/2016 [employer] Patient Education 2020 [employer]. 06/19/2024 09:03:14 3- Cardioversion (01/2018)(CUSTOM) CARDIOVERSION Discharge instructions ACTIVITY/SAFETY Please refrain from the following activities for 24 hours: Do not drive a car or operate heavy equipment. Do not consume alcohol for 24 hours. Do not return to work for 24 hours. Postpone signing any important papers or making important decisions. COMFORT Call your primary doctor if you have any redness, tenderness, warmth, discharge or swelling at yourIV site. Your chest or back may get red and/or develop a burning sensation. Apply fragrance-free Aloe Vera lotion. Take Tylenol as needed for pain. DIET When you return home, resume your regular diet unless otherwise directed. Some of the sedatives, anesthetic medications you received today may make you nauseated. If vomiting persists, call your doctor. Restart your usual medications unless otherwise instructed by your doctor. If you have any questions, please call your doctor at the number listed on your follow up instructions. Document Released: 03/28/2006 Document Revised: 03/14/2013 Document Reviewed: 03/29/2014 [employer] Patient Information 2015 [employer]. This information is not intended to replace advicegiven to you by your health care provider. Make sure you discuss any questions you have with your health care provider. Follow Up Care 06/13/2024 14:21:55 With:ASIM DIEHL [facility] [facility] [place] [address]- [phone] When:07/23/2024 15:30:00 [facility] 03-11-2025 Summary of episode note Discharge Instructions Thank you for allowing [facility] to assist you with your healthcare needs. The following is importantdischarge information regarding your hospital visit. Your Care Team EMILIANO LEAL DO What to do next Instructions From Your Doctor - Please note that a couple of changes have been made to your medications. Your kidney function hasimproved so you now qualify for the standard Eliquis dose (5mg twice daily; you are currently taking 2.5mg twice daily). Your potassium level was low this morning, therefore you have been prescribed a once daily potassium supplement. Carlos Diehl (your cardiology nurse practitioner) would like for youto have follow-up blood work done in a week from now. - Prescriptions for your new Eliquis dosing and potassium supplement have been sent electronically to the [facility] in [place]. ------- In regards to your procedure: -No driving for today. -Resume your normal activity and diet as tolerated. -You may experience some redness or skin irritation where the patches were placed. If desired, you may apply a skin moisturizer to the affected area. -Follow-up as directed. -Please notify the office with any questions/concerns including any new onset/worsening symptoms. Scheduled Follow-Up Appointments Appointment Type When With Where Contact Information StatusPC OV 07/19/2024 03:30 PM EDT [facility] [address] [place] [id number] Confirmed CV OV 07/23/2024 03:30 PM EDT ASIM DIEHL [facility] Confirmed Follow Up Appointments Follow Up with ASIM DIEHL When:07/23/2024 03:30 PM EDT Where:[address] [facility] [place] [address]- [phone] The Following Activity and Diet Have Been Ordered for You Discharge Activity - Ordered -- NO activity restrictions, 06/19/24 9:02:00 EDT Discharge Driving Restrictions - Ordered -- * Other, specify in special instructions, no driving for today, 06/19/24 9:02:00 EDT Discharge Diet - Ordered -- Follow the post-operative/post-procedure diet instructions provided by your physician's office.,06/19/24 9:02:00 EDT Someone Will Contact You Regarding These Home Health Referrals No home referrals have been ordered for you. No one will call you. Allergies alendronate (Moderate) Myalgia amLODIPine (Mild) Edema Periactin Numbness Medications Please ask your primary doctor or pharmacist before taking any other medication not listed, including over the counter drugs, herbal medications, vitamins and or supplements as they may interact withyour home medications. What How Much When Why Instructions Last Dose New potassium chloride (potassium chloride 20 mEq oral tablet, extended release) 1 tab(s) by mouth Once a day Refills: 3 Take with food Pickup at [facility] Changed apixaban (Eliquis 5 mg oral tablet) 1 tab(s) by mouth Two (2) times a day Pickup at [facility] Unchanged amiodarone (amiodarone 200 mg oral tablet) 1 tab(s) by mouth Once a day Unchanged bumetanide (bumetanide 1 mg oral tablet) 1 tab(s) by mouth Two (2) times a day Unchanged denosumab (Prolia 60 mg/ mL subcutaneous solution) 1 Milliliter Subcutaneous Every 6 months Osteoporosis Unchanged dilTIAZem (Cardizem CD 240 mg/ 24 hours oral capsule, extended release) 1 cap by mouth Once a day Unchanged empagliflozin (Jardiance 10 mg oral tablet) 1 tab(s) by mouth Once a day (in the morning) Pharmacy Information [facility]: [address], [place] [id number] [phone] Please take this list to your next doctor s visit. Bring all medications you take, including over the counter medications, herbals and other supplements with you to your doctor s visit. Patients and families are reminded to discard old lists and to update any records with all medication providers or retail pharmacies. Education Materials Monitored Anesthesia Care, Care After These instructions provide you with information about caring for yourself after your procedure. Your health care provider may also give you more specific instructions. Your treatment has been plannedaccording to current medical practices, but problems sometimes occur. Call your health care provider if you have any problems or questions after your procedure. What can I expect after the procedure? After your procedure, you may: Feel sleepy for several hours. Feel clumsy and have poor balance for several hours. Feel forgetful about what happened after the procedure. Have poor judgment for several hours. Feel nauseous or vomit. Have a sore throat if you had a breathing tube during the procedure. Follow these instructions at home: For at least 24 hours after the procedure: Have a responsible adult stay with you. It is important to have someone help care for you until youare awake and alert. Rest as needed. Do not: ? Participate in activities in which you could fall or become injured. ? Drive. ? Use heavy machinery. ? Drink alcohol. ? Take sleeping pills or medicines that cause drowsiness. ? Make important decisions or sign legal documents. ? Take care of children on your own. Eating and drinking Follow the diet that is recommended by your health care provider. If you vomit, drink water, juice, or soup when you can drink without vomiting. Make sure you have little or no nausea before eating solid foods. General instructions Take zowg-kbo-dfrxdrd and prescription medicines only as told by your health care provider. If you have sleep apnea, surgery and certain medicines can increase your risk for breathing problems. Follow instructions from your health care provider about wearing your sleep device: ? Anytime you are sleeping, including during daytime naps. ? While taking prescription pain medicines, sleeping medicines, or medicines that make you drowsy. If you smoke, do not smoke without supervision. Keep all follow-up visits as told by your health care provider. This is important. Contact a health care provider if: You keep feeling nauseous or you keep vomiting. You feel light-headed. You develop a rash. You have a fever. Get help right away if: You have trouble breathing. Summary For several hours after your procedure, you may feel sleepy and have poor judgment. Have a responsible adult stay with you for at least 24 hours or until you are awake and alert. This information is not intended to replace advice given to you by your health care provider. Make sure you discuss any questions you have with your health care provider. Document Released: 07/18/2016 Document Revised: 06/26/2018 Document Reviewed: 07/18/2016 [employer] Patient Education 2020 [employer]. CARDIOVERSION Discharge instructions ACTIVITY/SAFETY Please refrain from the following activities for 24 hours: Do not drive a car or operate heavy equipment. Do not consume alcohol for 24 hours. Do not return to work for 24 hours. Postpone signing any important papers or making important decisions. COMFORT Call your primary doctor if you have any redness, tenderness, warmth, discharge or swelling at yourIV site. Your chest or back may get red and/or develop a burning sensation. Apply fragrance-free Aloe Vera lotion. Take Tylenol as needed for pain. DIET When you return home, resume your regular diet unless otherwise directed. Some of the sedatives, anesthetic medications you received today may make you nauseated. If vomiting persists, call your doctor. Restart your usual medications unless otherwise instructed by your doctor. If you have any questions, please call your doctor at the number listed on your follow up instructions. Document Released: 03/28/2006 Document Revised: 03/14/2013 Document Reviewed: 03/29/2014 ExitCare Patient Information 2015 [employer], [employer]. This information is not intended to replace advicegiven to you by your health care provider. Make sure you discuss any questions you have with your health care provider. Additional Information VACCINATE! IT SAVES LIVES! Members of the community who have not yet received the COVID-19 vaccine and would like to receive it can visit one of [facility] vaccine clinics. There are many vaccine clinic locations within the [facility]. For locations and available times, please visit https://gettheshot.coronavirus.[place].gov/. It is important to note that some COVID mobile vaccine clinics are held outdoors and may be canceled in rainy or stormy conditions. To learn more about pediatric vaccinations (ages 5-11), we invite you to visit the [facility] webpage. https://www.[facility].org/pages/5179-Uvdiu-Ipplcislufn-Fdzwcwkape-Cnzsr-Niy stions.htmlTo learn more about the COVID-19 vaccine, we invite you to visit the CDC website for a list of frequently asked questions.https://www.cdc.gov/coronavirus/2019-ncov/vaccines/faq.html [employer] Patient Portal Access Instructions: Stay connected with your healthcare team and access your personal medical information anytime with the [employer] Patient Portal. Please follow the directions below to create your [employer] account: 1.Access the email account you provided upon registration to the hospital/physician office.2.Look for an invitation email from [facility].3.Open the email and access the invitation link: AcceptInvitation to [employer].4.Fill in the required tripp to create your account. To access your account, visit [employer]. Click the blue button labeled Access Patient Portal and then log in with the username and password that you created in the steps above. You will be able to view your test results, lab results, a summary of your visits, upcoming appointments and more. There is also a convenient messaging option where you can send secure messages to your Tell[employer]ider. In addition, you will have the ability to download any documents or summaries to your computer and/or send the information securely to a physician. Remember that your healthcare information is confidential, so carefully consider who you will allowto register on the [employer] Patient Portal for access to your information. You can also access the [employer] Patient Portal on the [employer] duke. Simply click on Patient Portal and then log into your account. If you would like to receive a full copy of your medical records, please contact the [facility] Medical Records Department by calling [phone], Tuesday through Tuesday between 8 a.m. and 4:30 p.m. HOW TO SAFELY DISPOSE OF PRESCRIPTION MEDICATIONS Please use one of the following methods to safely dispose of your unused medications. 1.Use a drug disposal kit: the drug disposal pouch allows you to safely discard your old and unuseddrugs. Ask your nurse to give you one when you are discharged.2.Visit a local take-back location: Many local pharmacies and police departments have programs that collect old and unwanted prescriptiondrugs. Call your local pharmacy or go to http://CueSongs.cortical.io/3L9Zl5l to find one close to you.3.Make use of household items: Use cat litter or old coffee grounds to dispose medications if other options arenot available. Mix your drugs with these household products, seal them in an airtight container andthrow it into the garbage. Call [facility]: [phone] to be sure your drugs can be disposed of in this way. Some medicines may require a different approach.4.Never flush your medications down the toilet. IF YOU HAVE BEEN PRESCRIBED AN OPIOID FOR PAIN If you have been prescribed an opioid (such as hydrocodone, oxycodone or morphine), it is critical to understand the possible side effects and risks of opioid pain medications. Even when taken as directed, opioids can have several side effects including: Tolerance, meaning you might need to take more of a medication for the same pain relief. Nausea, vomiting and/or constipation. Sleepiness, dizziness, dry mouth, confusion, depression or itching. Physical dependence, meaning you have withdrawal symptoms when a medication is stopped, can develop within a few days. KNOW YOUR RESPONSIBILITIES It is important to know exactly how much and how often to take the opioid pain medications you are prescribed. Never take opioids in higher amounts or more often than prescribed. Do not combine opioids with alcohol or other drugs that cause drowsiness, such as benzodiazepines, also known as benzos, including diazepam and alprazolam, muscle relaxants or sleep aids. Never sell or share prescription opioids. This is illegal. Store opioids in a secure place and out of reach of others (including children, family, friends and visitors). The last page of this document has been signed and retained as a CHART COPY. Signatures Patient Education Materials Monitored Anesthesia Care, Care After 3- Cardioversion (01/2018)(CUSTOM) Medication Leaflets My discharge plan and instructions have been reviewed and explained to me and I,JED SEWELL understand my current condition and have read and understand these discharge instructions. I have received a written copy of the plan/instructions. If I have questions, I am aware that I should contact my doctor. 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 She was noted to be hypokalemic upon arrival for which she was given 80mEq of potassium chloride with subsequent repeat blood work demonstrating normalization of her potassium level. She was discharged home with a prescription for low-dose daily potassium supplementation and orders for a repeat BMP in 1 week. Her creatinine notably improved since last month which resulted in her being eligible to transition to standardized Eliquis dosing given her weight of >60kg (5mg twice daily) Patient underwent successful direct-current cardioversion with subsequent pentecostal of normal sinus rhythm which she remains in at this time. She was later discharged home in stable condition with instructions to continue current medical therapies and follow-up as directed. All questions/concerns were addressed to the patient's satisfaction prior to their departure. Allergies alendronate (Moderate) Myalgia amLODIPine (Mild) Edema Periactin Numbness Procedures DCC-06/19/2024 Consults No qualifying data available. Objective Vitals and Measurements T: 36.4 C (Oral) HR: 91 (Apical) RR: 18 BP: 166/95 SpO2: 96% HT: 160.0 cm WT: 61.3 kg Weight Dosing Weight: 61.3 kg (06/19/24) Code Status No qualifying data available. Admission Date June 19, 2024 Discharge Date June 19, 2024 Patient Instructions - Please note that a couple of changes have been made to your medications. Your kidney function hasimproved so you now qualify for the standard Eliquis dose (5mg twice daily; you are currently taking 2.5mg twice daily). Your potassium level was low this morning, therefore you have been prescribed a once daily potassium supplement. Carlos Diehl (your cardiology nurse practitioner) would like for youto have follow-up blood work done in a week from now. - Prescriptions for your new Eliquis dosing and potassium supplement have been sent electronically to the [facility] in [place]. ------- In regards to your procedure: -No driving for today. -Resume your normal activity and diet as tolerated. -You may experience some redness or skin irritation where the patches were placed. If desired, you may apply a skin moisturizer to the affected area. -Follow-up as directed. -Please notify the office with any questions/concerns including any new onset/worsening symptoms. Medications New Prescription potassium chloride (potassium chloride 20 mEq oral tablet, extended release)1 tab(s) by mouth once a day. Take with food. Refills: 3. Changed apixaban (Eliquis 5 mg oral tablet)1 tab(s) by mouth two (2) times a day. Refills: 3. Unchanged amiodarone (amiodarone 200 mg oral tablet)1 tab(s) by mouth once a day. Refills: 3. bumetanide (bumetanide 1 mg oral tablet)1 tab(s) by mouth two (2) times a day. Refills: 3. denosumab (Prolia 60 mg/mL subcutaneous solution)1 Milliliter Subcutaneous every 6 months. Refills:0. dilTIAZem (Cardizem CD 240 mg/24 hours oral capsule, extended release)1 cap by mouth once a day. Refills: 3. empagliflozin (Jardiance 10 mg oral tablet)1 tab(s) by mouth once a day (in the morning). Refills: 3. Follow Up Follow Up with ASIM DIEHL When:07/23/2024 03:30 PM EDT Where[facility] [facility] [place] [address]- [phone] Follow Up Appointments No qualifying data available. Follow Up Labs/Studies Discharge Labs No Follow-up Labs Discharge Studies No Follow-up Studies Discharge Diet Discharge Diet - Ordered -- Follow the post-operative/post-procedure diet instructions provided by your physician's office.,06/19/24 9:02:00 EDT Discharge Activity Discharge Activity - Ordered -- NO activity restrictions, 06/19/24 9:02:00 EDT Condition on Discharge Stable Readmission Risk/Palliative Score No qualifying data available. Discharge Disposition Home Information Provided To Patient Digitally Signed by ANASTASIYA JEFF on 06/19/2024 09:43 AM Digitally Signed by HARRY BAILON MD on 06/19/2024 02:27 PM [id number] Procedure note Date of Service June 19, 2024 GC: Asim Diehl APRN CNP Procedure Name Direct-current cardioversion Referring Provider Asim Diehl APRN CNP Consent Patient has been educated about the risks, benefits, and alternatives of this procedure prior to obtaining consent. Indication Atrial fibrillation Location [facility] Procedural Sedation See anesthesia documentation Technique This is a 83-year-old female who presents today for direct current cardioversion secondary to atrial fibrillation. Patient verbalized confirmation that she has been on uninterrupted systemic anticoagulation with Eliquis 2.5mg twice daily for a minimum of 3 weeks prior to procedure. Current drug regimen includes antiarrhythmic therapy with amiodarone 200mg once daily + rate control therapy with diltiazem extended release 240mg/24hr one capsule once daily. Patient presented in a fasting, well-hydrated state. Presenting rhythm was atrial fibrillation witha ventricular response rate of 76 bpm. Once a FOOD CONSULTANT administered an IV anesthetic agent and the patient was fully sedated, an anterior-posterior patch placement was utilized to deliver a synchronized biphasic waveform at 150 J with anterior direct pressure which resulted in the pentecostal of normal sinus rhythm at a heart rate of 68 bpm. The patient tolerated the procedure well and returned to cardiac same day in stable condition. Digitally Signed by ANASTASIYA JEFF on 06/19/2024 09:40 AM [facility] [id number] Anesthesiology Consult note Patient: JED SEWELL Age: 83 years Sex: Female : 1940 Associated Diagnoses: None Author: JAREK CHRISTENSEN Preoperative Information Procedure/ Case: cardioversion Time of last food or liquid consumption: 06/19/2024 00:00:00 Anesthesia history Patient's history: negative. Family's history: negative. Review of Systems Ear/Nose/Mouth/Throat: Negative except as documented in history of present illness. Respiratory: Negative except as documented in history of present illness. Cardiovascular: Negative except as documented in history of present illness. Gastrointestinal: Negative except as documented in history of present illness. Genitourinary: Negative except as documented in history of present illness. Endocrine: Negative except as documented in history of present illness. Musculoskeletal: Negative except as documented in history of present illness. Integumentary: Negative except as documented in history of present illness. Neurologic: Negative except as documented in history of present illness. Health Status Allergies: Allergic Reactions (Selected) Severity Not Documented Periactin- Numbness. Nonallergic Reactions (Selected) Moderate Alendronate- Myalgia. Mild AmLODIPine- Edema., Allergies (3) ActiveSeverityReaction alendronateModerateMyalgia amLODIPineMildEdema PeriactinNumbness Current medications: (Selected) Prescriptions Prescribed Cardizem CD 240 mg/24 hours oral capsule, extended release: 240 mg, 1 cap(s), Oral, qDay, 90 cap(s), 3 Refill(s) Eliquis 2.5 mg oral tablet: 2.5 mg, 1 tab(s), Oral, BID, 180 tab(s), 3 Refill(s) Jardiance 10 mg oral tablet: 10 mg, 1 tab(s), Oral, qAM, 90 tab(s), 3 Refill(s) Prolia 60 mg/mL subcutaneous solution: 60 mg, 1 mL, Subcutaneous, q6mo, 1 mL, 0 Refill(s) amiodarone 200 mg oral tablet: 200 mg, 1 tab(s), Oral, qDay, 90 tab(s), 3 Refill(s) bumetanide 1 mg oral tablet: 1 mg, 1 tab(s), Oral, BID, 180 tab(s), 3 Refill(s) Problem list: Medical Atrial fibrillation / SNOMED CT 91206087 / Confirmed Chronic renal failure, stage 3 (moderate) / SNOMED CT 605162051 / Confirmed HFrEF (heart failure with reduced ejection fraction) / SNOMED CT 5081734140 / Confirmed HTN (hypertension) / SNOMED CT [id number] / Confirmed Serum calcium elevated / SNOMED CT 490881799 / Confirmed Osteoporosis / SNOMED CT 140690609 / Confirmed, Active Problems (10) Atrial fibrillation Chronic renal failure, stage 3 (moderate) HFrEF (heart failure with reduced ejection fraction) HTN (hypertension) VT (myocardial infarction) Mitral regurgitation Osteoporosis Serum calcium elevated Shortness of breath Tobacco use Histories Past Medical History: Active HTN (hypertension) ([id number]) Resolved Sciatica (62592851): Resolved. Microalbuminuria (980008681): Resolved. DDD (degenerative disc disease), lumbar (27280195): Resolved. Neck pain on right side (449228566): Resolved. Hypercalcemia (389084665): Resolved. Proteinuria of undiagnosed cause (990943843): Resolved. Acute bronchitis due to infection (576475066): Resolved. Family History: Respiratory disease Father COPD Mother Procedure history: Colonoscopy and biopsy of colon ([id number]) on 11/02/2019 at 78 Years. Colonoscopy ([id number]) on 04/11/2011 at 70 Years. Ovarian cyst ([id number]). Appendectomy (694332960). Cholecystectomy (78561191). Abdominal hysterectomy (656996283). Social History: Social & Psychosocial Habits Alcohol 06/19/2024Risk Assessment: Denies Alcohol Use 06/19/2024 Use: Never Employment/School 06/11/2024 Status: Retired Substance Abuse 06/19/2024Risk Assessment: Denies Substance Abuse 06/19/2024 Use: Never Tobacco 06/19/2024 Tobacco Use: Former smoker, quit more, quit 05/13/24 Type: Cigarettes Number of years: 47 Exercise Comment: none - 12/04/2018 11:18 - Aidee Boyer LPN Home/Environment 06/19/2024 Domestic Concerns None Living situation: Home/Independent Lives In Single level home Nutrition/Health 06/19/2024 Type of diet: Regular Appetite Good Eating Difficulties None Caffeine intake amount: decaf coffee Physical Examination Measurements from flowsheet : Measurements 06/19/2024 6:34 EDT Height 160.0 cm Height in inches 63 inch(es) Admission Weight 61.3 kg Weight Lbs 134.9 lb [place] Body Weight 52.38 kg Admission Body Mass Index 23.95 m2 Pain assessment: Reviewed Results: Pain Assessment(Date Range: 06/18/2024 0:00 EDT - 06/19/2024 9:44 EDT) . General: Alert and oriented, No acute distress. Airway: Normal temporomandibular joint mobility. Head: Normocephalic. Dentition Evaluation: Dentures, lower, Dentures, upper. Neck: Supple. Respiratory: Lungs are clear to auscultation. Cardiovascular: afib. Heart Sounds: Normal. Gastrointestinal: Soft. Musculoskeletal Normal range of motion. Integumentary: Intact, Warm, Dry. Neurologic: Alert, Oriented. Review / Management Results review: Lab results 06/19/2024 6:59 EDT Antecubital Left 06/19/2024 20 gauge Peripheral IV Activity: Insert new site Peripheral IV Dressing Condition: Clean, Dry, Intact Peripheral IV Dressing Activity: Applied, Transparent dressing Peripheral IV Line Status/Patency: Flushes easily, 10ml normal saline flush Peripheral IV Site Condition: No complications Peripheral IV Equipment: PRN Adaptor Peripheral IV Number of Attempts: 1 06/19/2024 6:58 EDT WBC 10.3 10^3/mcL RBC 4.32 10^6/mcL Hgb 13.6 G/dL Hct 38.3 % MCV 88.7 fL MCH 31.6 pg MCHC 35.6 G/dL RDW 14.7 % Platelet 267 10^3/mcL MPV 7.2 fL Neutrophil % 81.7 % HI Lymphocyte % 7.8 % LOW Monocyte % 8.2 % Eosinophil % 1.2 % Basophil % 1.1 % Neutrophil, Absolute 8.4 10^3/mcL HI Lymphocyte, Absolute 0.8 10^3/mcL LOW Monocyte, Absolute 0.8 10^3/mcL Eosinophil, Absolute 0.1 10^3/mcL Basophil, Absolute 0.1 10^3/mcL 06/19/2024 6:43 EDT SN - Preop - CTm - Pt in HL SD Room 06/19/2024 6:10 SN - Preop - CTm - HL Pt Ready for Procedure 06/19/2024 6:43 06/19/2024 6:34 EDT Height 160.0 cm Height in inches 63 inch(es) Admission Weight 61.3 kg Weight Lbs 134.9 lb [place] Body Weight 52.38 kg Admission Body Mass Index 23.95 m2 Temperature Oral 36.4 DegC Apical Heart Rate 91 bpm Respiratory Rate 18 br/min Systolic Blood Pressure Non-Invasive 179 mmHg HI Diastolic Blood Pressure Non-Invasive 86 mmHg Primary Pain Intensity 0 Pain Scale Type 0-10 Pain scale Heart Rhythm Irregular Murmur Auscultated No Dorsalis Pedis Pulse, Left 2+ Normal Dorsalis Pedis Pulse, Right 2+ Normal Radial Pulse, Left 2+ Normal Radial Pulse, Right 2+ Normal Respiratory Symptoms Difficulty breathing with activity, Shortness of breath Respirations Unlabored Respiratory Pattern Regular All Lobes Breath Sounds Clear, Equal Cough None Oxygen Therapy Room air Oxygen Saturation 96 % Abdomen Description Non-distended, Soft Abdomen Palpation Non-Tender, Soft Bowel Sounds All Quadrants Present Urinary Elimination Voiding, no difficulties Skin Description [place], Dry Skin Temperature Warm Skin Integrity Intact Mucous Membrane Color [place] Neurological Symptoms Patient denies Extremity Movement Equal Characteristics of Speech Clear Level of Consciousness Alert Strength All Extremities Strong Tone All Extremities Normal Sensation All Extremities Intact Affect/Behavior Appropriate, Calm, Cooperative Orientation Oriented x 4 Positioning Repositions self Activity Status ADL Awake Standard Safety ID band on, Allergy Band on, Call device within reach, Bed in low position, Wheels locked, Upper/Half-Length side-rails up, Phone within reach, personal items within reach, Assistive devices within reach, Visitor at bedside 06/19/2024 6:32 EDT Allergies Yes Consent Form Signed Yes Patient Dressed In Hospital gown Pre-op Preparation Dentures, full removed History & Physical Update On Chart Yes History & Physical On Chart Yes Obstructive Sleep Apnea Assess Completed Yes Belongings At Bedside Dentures, lower, Dentures, upper, Pants, Shirt, Shoes, Socks, Undergarments, Pt participated in reconciliation NPO Status Maintained Allergy Band on and Verified Yes Patient ID Band on and Verified Yes Last Fluid Intake 06/18/2024 17:00 Last Food Intake 06/18/2024 17:00 Last Void 06/19/2024 6:33 06/19/2024 6:30 EDT Designated Person #1 We May Share PHI natalie elizabeth- [phone] Designated Person #1 Relationship Daughter Privacy Restrictions Requested None Status N/A Sensory Deficits None Sleep Apnea Snore No Sleep Apnea Tired Yes Sleep Apnea Obstruction No Sleep Apnea Pressure Yes Sleep Apnea BMI No Sleep Apnea Age Yes Sleep Apnea Neck No Sleep Apnea Gender No Sleep Apnea Score 3 Diagnosed With Sleep Apnea No Advanced Directives Yes Advance Directive Type [place] Durable Power of Returned Materials Inspector for [place], [place] Declaration (Living Will) Advance Directive Location Indicates that [place] has been given copy Infectious Disease Symptoms Patient states no symptoms Infectious Disease Recent Exposure No Alcohol and Drug Use No Employee of Institutional Living No Health Care Employee No History of Exposure to TB No History of Positive Chest X-Ray for TB No History of Positive TB Skin Test No Homeless No Known Immunosuppression No Recent Immigrant No Resident of Institutional Living No Bloody Sputum No Fatigue No Fever No Loss of Appetite No Night Sweats No Persistent Cough > 3 Weeks No Weight Loss No Barriers to Learning None evident Teaching Method Explanation, Printed materials Preferred Spoken Language [place] Preferred Written Language [place] Teaching Evaluation No further teaching needed Safety Brochure Information Reviewed Yes [place] Flroes Video Viewed Previously viewed Patient's Current Physicians Patient's Current Physicians Discharge To, Anticipated Home independently Prev Test Positive/Diagnosis w/COVID-19 No Current Quarantine/Isolated any Illness No Any Contact with Sick Animals/Birds No Traveled Anywhere in Last 30 Days No Lost Weight Unintentionally Recently No Eat Poorly Due to Decreased Appetite No Total MST Score 0 N/A Personal Devices, Patient Valuables Dentures, lower, Dentures, upper Anesthesia/Transfusions Prior anesthesia Admission Note-Nursing Same Day Patient History 06/19/2024 6:05 EDT Electrocardiogram - EKG - CV Completed (In Progress) . Assessment and Plan [place] [employer] Anesthesiologists (ASA) physical status classification: Class III. Anesthetic Preoperative Plan Premedication: intravenous. Anesthetic technique: General. Induction: intravenously. Maintenance airway: Mask. Postoperative pain management: Per surgeon. Risks discussed: nausea, vomiting, headache, sore throat, dental injury, hypotension, allergic reaction, serious complications. Informed consent: signed by patient. Digitally Signed by JAREK CHRISTENSEN on 06/19/2024 07:33 AM Digitally Signed by JAREK CHRISTENSEN on 06/19/2024 09:44 [id number] Discharge instructions Patient Education 05/29/2024 11:01:38 Managing Your Hypertension Managing Your Hypertension Hypertension is commonly called high blood pressure. This is when the force of your blood pressing against the og of your arteries is too strong. Arteries are blood vessels that carry blood from your heart throughout your body. Hypertension forces the heart to work harder to pump blood, and may cause the arteries to become narrow or stiff. Having untreated or uncontrolled hypertension can cause heart attack, stroke, kidney disease, and other problems. What are blood pressure readings? A blood pressure reading consists of a higher number over a lower number. Ideally, your blood pressure should be below 120/80. The first (top) number is called the systolic pressure. It is a measure of the pressure in your arteries as your heart beats. The second (bottom) number is called the diastolic pressure. It is a measure of the pressure in your arteries as the heart relaxes. What does my blood pressure reading mean? Blood pressure is classified into four stages. Based on your blood pressure reading, your health care provider may use the following stages to determine what type of treatment you need, if any. Systolic pressure and diastolic pressure are measured in a unit called mm Hg. Normal Systolic pressure: below 120. Diastolic pressure: below 80. Elevated Systolic pressure: 120-129. Diastolic pressure: below 80. Hypertension stage 1 Systolic pressure: 130-139. Diastolic pressure: 80-89. Hypertension stage 2 Systolic pressure: 140 or above. Diastolic pressure: 90 or above. What health risks are associated with hypertension? Managing your hypertension is an important responsibility. Uncontrolled hypertension can lead to: A heart attack. A stroke. A weakened blood vessel (aneurysm). Heart failure. Kidney damage. Eye damage. Metabolic syndrome. Memory and concentration problems. What changes can I make to manage my hypertension? Hypertension can be managed by making lifestyle changes and possibly by taking medicines. Your health care provider will help you make a plan to bring your blood pressure within a normal range. Eating and drinking Eat a diet that is high in fiber and potassium, and low in salt (sodium), added sugar, and fat. An example eating plan is called the DASH (Dietary Approaches to Stop Hypertension) diet. To eat this way: ?Eat plenty of fresh fruits and vegetables. Try to fill half of your plate at each meal with fruitsand vegetables. ?Eat whole grains, such as whole wheat pasta, brown rice, or whole grain bread. Fill about one quarter of your plate with whole grains. ?Eat low-fat diary products. ?Avoid fatty cuts of meat, processed or cured meats, and poultry with skin. Fill about one quarter of your plate with lean proteins such as fish, chicken without skin, beans, eggs, and tofu. ?Avoid premade and processed foods. These tend to be higher in sodium, added sugar, and fat. Reduce your daily sodium intake. Most people with hypertension should eat less than 1,500 mg of sodium a day. Limit alcohol intake to no more than 1 drink a day for non women and 2 drinks a day for men. One drink equals 12 oz of beer, 5 oz of wine, or 1 oz of hard liquor. Lifestyle Work with your health care provider to maintain a healthy body weight, or to lose weight. Ask what an ideal weight is for you. Get at least 30 minutes of exercise that causes your heart to beat faster (aerobic exercise) most days of the week. Activities may include walking, swimming, or biking. Include exercise to strengthen your muscles (resistance exercise), such as weight lifting, as part of your weekly exercise routine. Try to do these types of exercises for 30 minutes at least 3 days aweek. Do not use any products that contain nicotine or tobacco, such as cigarettes and e-cigarettes. If you need help quitting, ask your health care provider. Control any long-term (chronic) conditions you have, such as high cholesterol or diabetes. Monitoring Monitor your blood pressure at home as told by your health care provider. Your personal target blood pressure may vary depending on your medical conditions, your age, and other factors. Have your blood pressure checked regularly, as often as told by your health care provider. Working with your health care provider Review all the medicines you take with your health care provider because there may be side effects or interactions. Talk with your health care provider about your diet, exercise habits, and other lifestyle factors that may be contributing to hypertension. Visit your health care provider regularly. Your health care provider can help you create and adjustyour plan for managing hypertension. Will I need medicine to control my blood pressure? Your health care provider may prescribe medicine if lifestyle changes are not enough to get your blood pressure under control, and if: Your systolic blood pressure is 130 or higher. Your diastolic blood pressure is 80 or higher. Take medicines only as told by your health care provider. Follow the directions carefully. Blood pressure medicines must be taken as prescribed. The medicine does not work as well when you skip doses. Skipping doses also puts you at risk for problems. Contact a health care provider if: You think you are having a reaction to medicines you have taken. You have repeated (recurrent) headaches. You feel dizzy. You have swelling in your ankles. You have trouble with your vision. Get help right away if: You develop a severe headache or confusion. You have unusual weakness or numbness, or you feel faint. You have severe pain in your chest or abdomen. You vomit repeatedly. You have trouble breathing. Summary Hypertension is when the force of blood pumping through your arteries is too strong. If this condition is not controlled, it may put you at risk for serious complications. Your personal target blood pressure may vary depending on your medical conditions, your age, and other factors. For most people, a normal blood pressure is less than 120/80. Hypertension is managed by lifestyle changes, medicines, or both. Lifestyle changes include weight loss, eating a healthy, low-sodium diet, exercising more, and limiting alcohol. This information is not intended to replace advice given to you by your health care provider. Make sure you discuss any questions you have with your health care provider. Document Released: 12/20/2012 Document Revised: 07/20/2019 Document Reviewed: 02/23/2017 [employer] Patient Education 2020 [employer]. 05/29/2024 11:01:05 Atrial Fibrillation, Ojen-ox-Ckdv Atrial Fibrillation Atrial fibrillation is a type of heartbeat that is irregular or fast (rapid). If you have this condition, your heart beats without any order. This makes it hard for your heart to pump blood in a normal way. Having this condition gives you more risk for stroke, heart failure, and other heart problems. Atrial fibrillation may start all of a sudden and then stop on its own, or it may become a long-lasting problem. What are the causes? This condition may be caused by heart conditions, such as: High blood pressure. Heart failure. Heart valve disease. Heart surgery. Other causes include: Pneumonia. Obstructive sleep apnea. Lung cancer. Thyroid disease. Drinking too much alcohol. Sometimes the cause is not known. What increases the risk? You are more likely to develop this condition if: You smoke. You are older. You have diabetes. You are overweight. You have a family history of this condition. You exercise often and hard. What are the signs or symptoms? Common symptoms of this condition include: A feeling like your heart is beating very fast. Chest pain. Feeling short of breath. Feeling light-headed or weak. Getting tired easily. Follow these instructions at home: Medicines Take bgvw-efz-bnhtlhg and prescription medicines only as told by your doctor. If your doctor gives you a blood-thinning medicine, take it exactly as told. Taking too much of it can cause bleeding. Taking too little of it does not protect you against clots. Clots can cause a stroke. Lifestyle Do not use any tobacco products. These include cigarettes, chewing tobacco, and e-cigarettes. If you need help quitting, ask your doctor. Do not drink alcohol. Do not drink beverages that have caffeine. These include coffee, soda, and tea. Follow diet instructions as told by your doctor. Exercise regularly as told by your doctor. General instructions If you have a condition that causes breathing to stop for a short period of time (apnea), treat it as told by your doctor. Keep a healthy weight. Do not use diet pills unless your doctor says they are safe for you. Diet pills may make heart problems worse. Keep all follow-up visits as told by your doctor. This is important. Contact a doctor if: You notice a change in the speed, rhythm, or strength of your heartbeat. You are taking a blood-thinning medicine and you see more bruising. You get tired more easily when you move or exercise. You have a sudden change in weight. Get help right away if: You have pain in your chest or your belly (abdomen). You have trouble breathing. You have blood in your vomit, poop, or pee (urine). You have any signs of a stroke. BE FAST is an easy way to remember the main warning signs: ?B - Balance. Signs are dizziness, sudden trouble walking, or loss of balance. ?E - Eyes. Signs are trouble seeing or a change in how you see. ?F - Face. Signs are sudden weakness or loss of feeling in the face, or the face or eyelid droopingon one side. ?A - Arms. Signs are weakness or loss of feeling in an arm. This happens suddenly and usually on one side of the body. ?S - Speech. Signs are sudden trouble speaking, slurred speech, or trouble understanding what people say. ?T - Time. Time to call emergency services. Write down what time symptoms started. You have other signs of a stroke, such as: ?A sudden, very bad headache with no known cause. ?Feeling sick to your stomach (nausea). ?Throwing up (vomiting). ?Jerky movements you cannot control (seizure). These symptoms may be an emergency. Do not wait to see if the symptoms will go away. Get medical help right away. Call your local emergency services (911 in the [place] Do not drive yourself to the hospital. Summary Atrial fibrillation is a type of heartbeat that is irregular or fast (rapid). You are at higher risk of this condition if you smoke, are older, have diabetes, or are overweight. Follow your doctor's instructions about medicines, diet, exercise, and follow-up visits. Get help right away if you think that you have signs of a stroke. This information is not intended to replace advice given to you by your health care provider. Make sure you discuss any questions you have with your health care provider. Document Released: 01/04/2009 Document Revised: 06/01/2018 Document Reviewed: 05/19/2018 [employer] Patient Education 2020 [employer]. Follow Up Care 05/23/2024 13:05:00 With:EMILIANO LEAL DO Address: [address] [place] [phone]- [phone] When:3-5 days Comments:Please call to schedule your post-hospital follow-up appointment. 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 [facility] 02-18-2025 Note Discharge Instructions Thank you for allowing [facility] to assist you with your healthcare needs. The following is importantdischarge information regarding your hospital visit. Your Care Team [facility] Your Diagnosis Asthenia Atrial fibrillation Chronic renal failure, stage 3 (moderate) HFrEF (heart failure with reduced ejection fraction) HTN (hypertension) What to do next Scheduled Follow-Up Appointments Appointment Type When With Where Contact Information StatusCV OV Hospital Follow Up 06/13/2024 02:00 PM EST ASIM DIEHL [facility] Confirmed PC OV 07/19/2024 03:30 PM EDT EMILIANO LEAL DO [facility] [address] [place] [id number] Confirmed Follow Up Appointments Follow Up with EMILIANO LEAL DO When:Within 3-5 days Where:[address] [place] [phone] Additional Information: Please call to schedule your post-hospital follow-up appointment. Follow Up with ASIM DIEHL When:06/13/2024 02:00 PM EST Where:[address] [place] [address]- Additional Information: This is your post-hospital follow-up appointment in [place] with cardiology. The Following Activity and Diet Have Been Ordered for You Discharge Activity - Ordered -- Resume your pre-hospitalization activity, 05/28/24 11:48:00 EST Discharge Diet - Ordered -- No changes were made to your diet during your hospital stay. Please resume your pre hospitalization diet on discharge., 05/28/24 11:48:00 EST Allergies alendronate (Moderate) Myalgia amLODIPine (Mild) Edema Periactin Numbness Medications Please ask your primary doctor or pharmacist before taking any other medication not listed, including over the counter drugs, herbal medications, vitamins and or supplements as they may interact withyour home medications. What How Much When Why Instructions Last Dose Changed amiodarone (amiodarone 200 mg oral tablet) 1 tab(s) by mouth Once a day Duration: 30 Days start taking ONCE daily on Tuesday, 06/01! Changed amiodarone (amiodarone 200 mg oral tablet) 1 tab(s) by mouth Twice daily with meals STOP taking [two times/day] AFTER evening dose 05/31 today @ 9a Changed bumetanide (bumetanide 1 mg oral tablet) 1 tab(s) by mouth Two (2) times a day Duration: 30 Days Pickup at [facility] today @ 9a Unchanged apixaban (Eliquis 2.5 mg oral tablet) 1 tab(s) by mouth Two (2) times a day Pickup at [id number] today @ 9a Unchanged denosumab (Prolia 60 mg/ mL subcutaneous solution) 1 Milliliter Subcutaneous Every 6 months Osteoporosis Unchanged dilTIAZem (Cardizem CD 120 mg/ 24 hours oral capsule, extended release) 1 cap by mouth Once a day Pickup at [facility] today @ 9a Unchanged empagliflozin (Jardiance 10 mg oral tablet) 1 tab(s) by mouth Once a day (in the morning) Pickup at [facility] today @ 9a Pharmacy Information [id number]: [address] [place], [place] [id number] [phone] [facility]: [address], [place] [id number] [phone] What How Much When Comments Stop Taking metoprolol (Toprol-XL 50 mg oral tablet, extended release) 1 tab(s) by mouth Twice daily with meals Please take this list to your next doctor s visit. Bring all medications you take, including over the counter medications, herbals and other supplements with you to your doctor s visit. Patients and families are reminded to discard old lists and to update any records with all medication providers or retail pharmacies. Medication Leaflets diltiazem (oral/injection) (james PRISCILLA a zeshyanne) Cardizem, Cardizem CD, Cardizem LA, Cartia XT, DilTIAZem (Eqv-Cardizem CD), DilTIAZem (Eqv-Dilacor XR), DilTIAZem (Eqv-Tiazac), DilTIAZem Hydrochloride ER, DilTIAZem Hydrochloride SR, Dilt-XR, MatzimLA, Tiadylt ER, Tiazac What is the most important information I should know about diltiazem? You should not use diltiazem if you have very low blood pressure, a serious heart condition such as'sick sinus syndrome' or 'AV block' (unless you have a pacemaker), or if you have recently had a heart attack and you have a build-up of fluid in your lungs. What is diltiazem? Diltiazem oral is used in adults alone or in combination with other medicines to treat hypertension(high blood pressure) or symptoms of angina (chest pain). Diltiazem injection is used in adults to treat certain heart rhythm disorders such as atrial fibrillation or atrial flutter, or dangerously rapid heartbeats (tachycardia). Lowering blood pressure may lower your risk of a stroke or heart attack. Diltiazem may also be used for purposes not listed in this medication guide. What should I discuss with my healthcare provider before using diltiazem? You should not use diltiazem if you are allergic to it, or if you have: a serious heart condition such as 'sick sinus syndrome' or 'AV block' (unless you have a pacemaker); very low blood pressure; if your heart cannot pump blood properly; or if you have recently had a heart attack and you have a build-up of fluid in your lungs. You may not be able to use diltiazem if you have: heart failure; certain heart rhythm disorders (such as 'Afib' or atrial flutter with Ymbkm-Tlubnifqf-Jwqch syndrome); a heart condition that causes you to have very fast heartbeats; or if you are receiving an intravenous beta-vadim (such as atenolol, metoprolol, or propranolol). Tell your doctor if you have ever had: congestive heart failure or heart problems; low blood pressure or slow heart rate; or liver disease. It is not known whether diltiazem will harm an unborn baby. Tell your doctor if you are orplan to become . Tell your doctor if you are . How should I use diltiazem? Follow all directions on your prescription label and read all medication guides or instruction sheets. Your doctor may occasionally change your dose. Use the medicine exactly as directed. Diltiazem injection is given into a vein by a healthcare provider. Your heart rate will be constantly monitored using an electrocardiogram or ECG (sometimes called an EKG). Your blood pressure and other vital signs will also be watched closely. Diltiazem oral is taken by mouth. Your pharmacist can provide more information about how to take this medicine. Your dose needs may change if you switch to a different brand, strength, or form of this medicine. Some forms of diltiazem oral cannot be crushed or chewed, and some forms can be opened and mixed with applesauce. Ask your pharmacist how to take this medicine. Your blood pressure and liver function will need to be checked often. If you have high blood pressure, keep using this medicine even if you feel well. High blood pressure often has no symptoms. Store at room temperature away from moisture, heat, and light. What happens if I miss a dose? Diltiazem injection is used when needed and does not have a daily dose. Call your doctor if the medicine is not effective. Take diltiazem oral as soon as you can, but skip the missed dose if it is almost time for your nextdose. Do not take two doses at one time. What happens if I overdose? Seek emergency medical attention or call the Poison Help line at . Overdose symptoms may include low blood pressure, slow heart rate, severe dizziness, or fainting. What should I avoid while using diltiazem? Avoid drinking alcohol while taking diltiazem extended-release capsules. Drinking alcohol with thismedicine can cause side effects. Avoid taking an herbal supplement containing Marquise's wort. Avoid getting up too fast from a sitting or lying position, or you may feel dizzy. Avoid driving orhazardous activity until you know how this medicine will affect you. Your reactions could be impaired. What are the possible side effects of diltiazem? Get emergency medical help if you have signs of an allergic reaction (hives, difficult breathing, swelling in your face or throat) or a severe skin reaction (fever, sore throat, burning eyes, skin pain, red or purple skin rash with blistering and peeling). Call your doctor at once if you have: chest pain, fast, slow, or uneven heart rate; a light-headed feeling, like you might pass out; heart problems--swelling, rapid weight gain, feeling short of breath; or liver problems--loss of appetite, stomach pain (upper right side), tiredness, itching, dark urine, elizabeth-colored stools, jaundice (yellowing of the skin or eyes). Common side effects may include: swelling; infections, flu symptoms; trouble breathing; headache, dizziness, weakness; slower heart rate; pain, bruising, swelling, or irritation where the medicine was injected; nausea, upset stomach; or rash. This is not a complete list of side effects and others may occur. Call your doctor for medical advice about side effects. You may report side effects to FDA at 1-347-UXC-6263. What other drugs will affect diltiazem? Sometimes it is not safe to use certain medicines at the same time. Some drugs can affect your blood levels of other drugs you use, which may increase side effects or make the medicines less effective. Many drugs can affect diltiazem. This includes prescription and dvqg-cxt-mvjyhih medicines, vitamins, and herbal products. Not all possible interactions are listed here. Tell your doctor about all other medicines you use. Where can I get more information? Your doctor or pharmacist can provide more information about diltiazem. Remember, keep this and all other medicines out of the reach of children, never share your medicines with others, and use this medication only for the indication prescribed. Every effort has been made to ensure that the information provided by [employer]. [employer]') is accurate, up-to-date, and complete, but no guarantee is made to that effect. Drug information contained herein may be time sensitive. [employer] information has been compiled for use by healthcare practitioners and consumers in the [place] and therefore [employer] does not warrant that uses outside of the [place] are appropriate, unless specifically indicated otherwise. [employer] drug information does not endorse drugs, diagnose patients or recommend therapy. [employer] drug information isan informational resource designed to assist licensed healthcare practitioners in caring for their p atients and/or to serve consumers viewing this service as a supplement to, and not a substitute for, the expertise, skill, knowledge and judgment of healthcare practitioners. The absence of a warningfor a given drug or drug combination in no way should be construed to indicate that the drug or drug combination is safe, effective or appropriate for any given patient. [employer] does not assume any responsibility for any aspect of healthcare administered with the aid of information [employer] provides. The information contained herein is not intended to cover all possible uses, directions, precautions, warnings, drug interactions, allergic reactions, or adverse effects. If you have questions about the drugs you are taking, check with your doctor, nurse or pharmacist. Copyright 2465-4059 [employer]. Version: 19.02. Revision Date: 11/17/2023. Education Materials Managing Your Hypertension Hypertension is commonly called high blood pressure. This is when the force of your blood pressing against the og of your arteries is too strong. Arteries are blood vessels that carry blood from your heart throughout your body. Hypertension forces the heart to work harder to pump blood, and may cause the arteries to become narrow or stiff. Having untreated or uncontrolled hypertension can cause heart attack, stroke, kidney disease, and other problems. What are blood pressure readings? A blood pressure reading consists of a higher number over a lower number. Ideally, your blood pressure should be below 120/80. The first (top) number is called the systolic pressure. It is a measure of the pressure in your arteries as your heart beats. The second (bottom) number is called the diastolic pressure. It is a measure of the pressure in your arteries as the heart relaxes. What does my blood pressure reading mean? Blood pressure is classified into four stages. Based on your blood pressure reading, your health care provider may use the following stages to determine what type of treatment you need, if any. Systolic pressure and diastolic pressure are measured in a unit called mm Hg. Normal Systolic pressure: below 120. Diastolic pressure: below 80. Elevated Systolic pressure: 120-129. Diastolic pressure: below 80. Hypertension stage 1 Systolic pressure: 130-139. Diastolic pressure: 80-89. Hypertension stage 2 Systolic pressure: 140 or above. Diastolic pressure: 90 or above. What health risks are associated with hypertension? Managing your hypertension is an important responsibility. Uncontrolled hypertension can lead to: A heart attack. A stroke. A weakened blood vessel (aneurysm). Heart failure. Kidney damage. Eye damage. Metabolic syndrome. Memory and concentration problems. What changes can I make to manage my hypertension? Hypertension can be managed by making lifestyle changes and possibly by taking medicines. Your health care provider will help you make a plan to bring your blood pressure within a normal range. Eating and drinking Eat a diet that is high in fiber and potassium, and low in salt (sodium), added sugar, and fat. An example eating plan is called the DASH (Dietary Approaches to Stop Hypertension) diet. To eat this way: ? Eat plenty of fresh fruits and vegetables. Try to fill half of your plate at each meal with fruits and vegetables. ? Eat whole grains, such as whole wheat pasta, brown rice, or whole grain bread. Fill about one quarter of your plate with whole grains. ? Eat low-fat diary products. ? Avoid fatty cuts of meat, processed or cured meats, and poultry with skin. Fill about one quarter of your plate with lean proteins such as fish, chicken without skin, beans, eggs, and tofu. ? Avoid premade and processed foods. These tend to be higher in sodium, added sugar, and fat. Reduce your daily sodium intake. Most people with hypertension should eat less than 1,500 mg of sodium a day. Limit alcohol intake to no more than 1 drink a day for non women and 2 drinks a day for men. One drink equals 12 oz of beer, 5 oz of wine, or 1 oz of hard liquor. Lifestyle Work with your health care provider to maintain a healthy body weight, or to lose weight. Ask what an ideal weight is for you. Get at least 30 minutes of exercise that causes your heart to beat faster (aerobic exercise) most days of the week. Activities may include walking, swimming, or biking. Include exercise to strengthen your muscles (resistance exercise), such as weight lifting, as part of your weekly exercise routine. Try to do these types of exercises for 30 minutes at least 3 days aweek. Do not use any products that contain nicotine or tobacco, such as cigarettes and e-cigarettes. If you need help quitting, ask your health care provider. Control any long-term (chronic) conditions you have, such as high cholesterol or diabetes. Monitoring Monitor your blood pressure at home as told by your health care provider. Your personal target blood pressure may vary depending on your medical conditions, your age, and other factors. Have your blood pressure checked regularly, as often as told by your health care provider. Working with your health care provider Review all the medicines you take with your health care provider because there may be side effects or interactions. Talk with your health care provider about your diet, exercise habits, and other lifestyle factors that may be contributing to hypertension. Visit your health care provider regularly. Your health care provider can help you create and adjustyour plan for managing hypertension. Will I need medicine to control my blood pressure? Your health care provider may prescribe medicine if lifestyle changes are not enough to get your blood pressure under control, and if: Your systolic blood pressure is 130 or higher. Your diastolic blood pressure is 80 or higher. Take medicines only as told by your health care provider. Follow the directions carefully. Blood pressure medicines must be taken as prescribed. The medicine does not work as well when you skip doses. Skipping doses also puts you at risk for problems. Contact a health care provider if: You think you are having a reaction to medicines you have taken. You have repeated (recurrent) headaches. You feel dizzy. You have swelling in your ankles. You have trouble with your vision. Get help right away if: You develop a severe headache or confusion. You have unusual weakness or numbness, or you feel faint. You have severe pain in your chest or abdomen. You vomit repeatedly. You have trouble breathing. Summary Hypertension is when the force of blood pumping through your arteries is too strong. If this condition is not controlled, it may put you at risk for serious complications. Your personal target blood pressure may vary depending on your medical conditions, your age, and other factors. For most people, a normal blood pressure is less than 120/80. Hypertension is managed by lifestyle changes, medicines, or both. Lifestyle changes include weight loss, eating a healthy, low-sodium diet, exercising more, and limiting alcohol. This information is not intended to replace advice given to you by your health care provider. Make sure you discuss any questions you have with your health care provider. Document Released: 12/20/2012 Document Revised: 07/20/2019 Document Reviewed: 02/23/2017 [employer] Patient Education 2020 [employer] Atrial Fibrillation Atrial fibrillation is a type of heartbeat that is irregular or fast (rapid). If you have this condition, your heart beats without any order. This makes it hard for your heart to pump blood in a normal way. Having this condition gives you more risk for stroke, heart failure, and other heart problems. Atrial fibrillation may start all of a sudden and then stop on its own, or it may become a long-lasting problem. What are the causes? This condition may be caused by heart conditions, such as: High blood pressure. Heart failure. Heart valve disease. Heart surgery. Other causes include: Pneumonia. Obstructive sleep apnea. Lung cancer. Thyroid disease. Drinking too much alcohol. Sometimes the cause is not known. What increases the risk? You are more likely to develop this condition if: You smoke. You are older. You have diabetes. You are overweight. You have a family history of this condition. You exercise often and hard. What are the signs or symptoms? Common symptoms of this condition include: A feeling like your heart is beating very fast. Chest pain. Feeling short of breath. Feeling light-headed or weak. Getting tired easily. Follow these instructions at home: Medicines Take skyx-lmh-igdihnd and prescription medicines only as told by your doctor. If your doctor gives you a blood-thinning medicine, take it exactly as told. Taking too much of it can cause bleeding. Taking too little of it does not protect you against clots. Clots can cause a stroke. Lifestyle Do not use any tobacco products. These include cigarettes, chewing tobacco, and e-cigarettes. If you need help quitting, ask your doctor. Do not drink alcohol. Do not drink beverages that have caffeine. These include coffee, soda, and tea. Follow diet instructions as told by your doctor. Exercise regularly as told by your doctor. General instructions If you have a condition that causes breathing to stop for a short period of time (apnea), treat it as told by your doctor. Keep a healthy weight. Do not use diet pills unless your doctor says they are safe for you. Diet pills may make heart problems worse. Keep all follow-up visits as told by your doctor. This is important. Contact a doctor if: You notice a change in the speed, rhythm, or strength of your heartbeat. You are taking a blood-thinning medicine and you see more bruising. You get tired more easily when you move or exercise. You have a sudden change in weight. Get help right away if: You have pain in your chest or your belly (abdomen). You have trouble breathing. You have blood in your vomit, poop, or pee (urine). You have any signs of a stroke. BE FAST is an easy way to remember the main warning signs: ? B - Balance. Signs are dizziness, sudden trouble walking, or loss of balance. ? E - Eyes. Signs are trouble seeing or a change in how you see. ? F - Face. Signs are sudden weakness or loss of feeling in the face, or the face or eyelid drooping on one side. ? A - Arms. Signs are weakness or loss of feeling in an arm. This happens suddenly and usually on oneside of the body. ? S - Speech. Signs are sudden trouble speaking, slurred speech, or trouble understanding what peoplesay. ? T - Time. Time to call emergency services. Write down what time symptoms started. You have other signs of a stroke, such as: ? A sudden, very bad headache with no known cause. ? Feeling sick to your stomach (nausea). ? Throwing up (vomiting). ? Jerky movements you cannot control (seizure). These symptoms may be an emergency. Do not wait to see if the symptoms will go away. Get medical help right away. Call your local emergency services (911 in the [place] Do not drive yourself to the hospital. Summary Atrial fibrillation is a type of heartbeat that is irregular or fast (rapid). You are at higher risk of this condition if you smoke, are older, have diabetes, or are overweight. Follow your doctor's instructions about medicines, diet, exercise, and follow-up visits. Get help right away if you think that you have signs of a stroke. This information is not intended to replace advice given to you by your health care provider. Make sure you discuss any questions you have with your health care provider. Document Released: 01/04/2009 Document Revised: 06/01/2018 Document Reviewed: 05/19/2018 [employer] Patient Education 2020 [employer]. Additional Information VACCINATE! IT SAVES LIVES! Members of the community who have not yet received the COVID-19 vaccine and would like to receive it can visit one of [facility] vaccine clinics. There are many vaccine clinic locations within the [facility]. For locations and available times, please visit [email or web address].[place].gov/. It is important to note that some COVID mobile vaccine clinics are held outdoors and may be canceled in rainy or stormy conditions. To learn more about pediatric vaccinations (ages 5-11), we invite you to visit the [facility] webpage. [email or web address]/[email or web address] learn more about the COVID-19 vaccine, we invite you to visit the CDC website for a list of frequently asked questions.https://www.cdc.gov/coronavirus/2019-ncov/vaccines/faq.html [facility] Patient Portal Access Instructions: Stay connected with your healthcare team and access your personal medical information anytime with the [facility] Patient Portal. Please follow the directions below to create your [employer] account: 1.Access the email account you provided upon registration to the hospital/physician office.2.Look for an invitation email from [facility].3.Open the email and access the invitation link: AcceptInvitation to [facility].4.Fill in the required tripp to create your account. To access your account, visit [email or web address]. Click the blue button labeled Access Patient Portal and then log in with the username and password that you created in the steps above. You will be able to view your test results, lab results, a summary of your visits, upcoming appointments and more. There is also a convenient messaging option where you can send secure messages to your p rovider. In addition, you will have the ability to download any documents or summaries to your computer and/or send the information securely to a physician. Remember that your healthcare information is confidential, so carefully consider who you will allowto register on the [facility] Patient Portal for access to your information. You can also access the [facility] Patient Portal on the [facility]. Simply click on Patient Portal and then log into your account. If you would like to receive a full copy of your medical records, please contact the [facility] Medical Records Department by calling [phone], Tuesday through Tuesday between 8 a.m. and 4:30 p.m. HOW TO SAFELY DISPOSE OF PRESCRIPTION MEDICATIONS Please use one of the following methods to safely dispose of your unused medications. 1.Use a drug disposal kit: the drug disposal pouch allows you to safely discard your old and unuseddrugs. Ask your nurse to give you one when you are discharged.2.Visit a local take-back location: Many local pharmacies and police departments have programs that collect old and unwanted prescriptiondrugs. Call your local pharmacy or go to http://bit.cortical.io/8V5To1e to find one close to you.3.Make use of household items: Use cat litter or old coffee grounds to dispose medications if other options arenot available. Mix your drugs with these household products, seal them in an airtight container andthrow it into the garbage. Call [facility]: [phone] to be sure your drugs can be disposed of in this way. Some medicines may require a different approach.4.Never flush your medications down the toilet. IF YOU HAVE BEEN PRESCRIBED AN OPIOID FOR PAIN If you have been prescribed an opioid (such as hydrocodone, oxycodone or morphine), it is critical to understand the possible side effects and risks of opioid pain medications. Even when taken as directed, opioids can have several side effects including: Tolerance, meaning you might need to take more of a medication for the same pain relief. Nausea, vomiting and/or constipation. Sleepiness, dizziness, dry mouth, confusion, depression or itching. Physical dependence, meaning you have withdrawal symptoms when a medication is stopped, can develop within a few days. KNOW YOUR RESPONSIBILITIES It is important to know exactly how much and how often to take the opioid pain medications you are prescribed. Never take opioids in higher amounts or more often than prescribed. Do not combine opioids with alcohol or other drugs that cause drowsiness, such as benzodiazepines, also known as benzos, including diazepam and alprazolam, muscle relaxants or sleep aids. Never sell or share prescription opioids. This is illegal. Store opioids in a secure place and out of reach of others (including children, family, friends and visitors). The last page of this document has been signed and retained as a CHART COPY. [employer] Patient Education Materials Managing Your Hypertension Atrial Fibrillation, Zfqw-oo-Dycw Medication Leaflets diltiazem (oral/injection) My discharge plan and instructions have been reviewed and explained to me and I,JED SEWELL understand my current condition and have read and understand these discharge instructions. I have received a written copy of the plan/instructions. If I have questions, I am aware that I should contact my doctor. 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 Signature: Date/Time: Relationship to Patient: Witness Name/Signature: Date/Time: [facility]02-18-2025 Pastoral care Progress note Pastoral Care Note Entered On: 05/29/2024 9:31 EST Performed On: 05/29/2024 9:29 EST by Nathaniel Arce Pastoral Care Type of Pastoral Visit : Follow up visit Spiritual Care Visit Initiated by : Ground Source Heat Pump Technician Spiritual Care Reason for Visit : General Spiritual Assessment : Not using [employer] Spiritual Care Emotional Assessment : Frustrated, Has Support Network Spiritual Care Intervention : Compassion/Empathy, Supportive presence Spiritual Outcomes : Embraces Present Moment Spiritual Plan of Care : No Further Action Pastoral Care Comments : patient is planning to go home today and is thankful for that as she has improved; pt admits frustration for being in the hospital so long; pt denies any needs and declines further care Pastoral Care Visit Length : 5 minute(s) Nathaniel Arce - 05/29/2024 9:29 EST Digitally Signed by Nathaniel Arce on 05/29/2024 09:29 AM [facility]02-12-2025 Note Date of Service 05/23/2024 Chief Complaint weakness History of Present Illness Patient is an 83-year-old female, who follows with Dr. Emiliano Leal with a past medical history significant for hypertension, atrial fibrillation, congestive heart failure and chronic kidney disease stage III, presented to [facility] transitional care unit last 05/18/2024 for ongoing rehab after a stay at [facility] CCU. Patient was admitted to the CCU on 05/13/2024 after becoming short of breath at home. In the ED, she was found to be in atrial fibrillation with RVR and possible congestive heart failure which were both new diagnoses for patient. In the CCU, patientwas cardioverted 3 times with the last try resulting in sinus rhythm. She had been on an amiodarone drip and was transitioned to oral amiodarone loading dose. She also had an echocardiogram on 05/16 which revealed EF 40-45%, moderate diffuse hypokinesis, Grade II diastolic dysfunction and RVSP 41. Patient was diuresed with IV lasix while admitted and then transitioned to 40 mg lasix PO daily. She was felt to be medically optimized and transferred to [facility] TCU on 05/18. She was seen on 05/19 while resting in bed and stated that she was feeling well. She was on 2L of oxygen but reported that nursing was placing her on oxygen overnight while in CCU. She was fine throughout the day, however, late at night she became severely short of breath when getting ready to get up to the bathroom. Patient was placed back into bed and an EKG revealed atrial fibrillation. Chest x-ray revealed moderate pulmonary edema. Patient was discharged from [facility] and transferred to inpatient status. IV was established andshe was restarted on IV lasix. Respiratory placed patient on Bipap overnight. On Tuesday, Asim Diehl CNP cardiology, was consulted for assistance with management of patient. She added cardizem 30 mg PO QID for better rate control. She did not think patient would benefit from another cardioversionat this point but thought the cardizem would do well to control heart rate. She also added Jardiance 10 mg PO daily, changed diuretic to bumex 2 mg IV BID. Yesterday, patient's heart rate was well-controlled so Cardizem was changed to 120 mg PO daily and Bumex was changed to PO. Patient was stable today and transitioned back to [facility]. She remains on 2L of oxygen but, per daughter, patient has smoked for a long time. She could possibly have some underlying COPD. Discussed with patient that we will try to wean her to room air but she may have to go home on oxygen. knockdown worker asked to schedule patient in with Asim Diehl CNP next week to follow closely. On exam, patient with clear lungs today. Her oxygen saturations are 98% on 2L. Will discuss with respiratory therapy weaning patient back to room air. Nursing was able to discontinue catheter yesterday and patient has been able to urinate without difficulty. Discussed plan of care with patient and she is agreeable with the same. All questions answered. Review of Systems Review of Systems: Reviewed in detail, including general health, HEENT, cardiovascular, respiratory, gastrointestinal, genitourinary, endocrine, musculoskeletal, neurologic, vascular, skin, and psychiatric. All are negative except for those listed in the History of Present Illness. Physical Exam Vitals and Measurements T: 36.7 C (Oral) HR: 80 (Apical) RR: 18 BP: 114/68 SpO2: 98% HT: 160 cm WT: 63.8 kg BMI: 24.92 Weight Dosing Weight: 63.8 kg (05/23/24) General: No acute distress. Patient is alert, chronically ill-appearing. Skin: No rash. Skin is warm, dry and intact. HEENT: Head is normocephalic, atraumatic. Pupils are equal, round and reactive. Neck: Supple. No lymphadenopathy, thyromegaly. Lungs: Bilaterally clear but diminished without crepitation or wheeze. Unlabored. Heart: Heart is regular rhythm, S1, S2. No murmurs, gallops or rubs. Abdomen: Abdomen is soft, nontender. Bowels sounds present in all quadrants. Extremities: No clubbing, cyanosis, or edema. Peripheral pulses palpable. No calf tenderness. Neurological: Patient is awake and alert to person, place and time. Following simple commands, moving all extremities. Lab Results No 36 Hour Lab Data Assessment/Plan 1. Asthenia Consult placed to PT and OT. knockdown worker following for discharge planning needs. 2. HTN (hypertension) Chronic. Continue current antihypertensives. SBP goal of 140 or less. 3. Atrial fibrillation Persistent, rate controlled. Continue Cardizem 120 mg PO daily. Continue Amiodarone 400 mg PO BID x7 days (stop 05/24 at 2330). On 05/25, start Amiodarone 200 mg PO BID x 7 days (stop 05/31 at 2330). On 06/01, start Amiodarone 200 mg PO daily. 30-day event monitored by [facility] cardiology. Patient will need to follow-up with Asim Diehl CNP next week. Continue eliquis. 4. HFrEF (heart failure with reduced ejection fraction) Echo on 05/16 shows EF 40-45%, Grade II diastolic dysfunction. Continue Bumex 1 mg PO BID. Continue Jardiance 10 mg PO daily. Repeat BMP on Tuesday, 05/28. 5. Chronic renal failure, stage 3 (moderate) Chronic. Baseline GFR 56-59 - 39 this am but improving. Repeat BMP on 05/28. DVT prophylaxis with eliquis. Code status: Full Code. Labs, diagnostic test and progress notes reviewed as noted in HPI. Plan of care discussed with patient. All questions answered. Patient verbalizes understanding and is agreeable with plan of care. This case was discussed with collaborating physician, Dr. Rylan Rodriguez. 57 minutes spent reviewing past diagnostic tests, reviewing lab results, vital sign trends, medicalhistory, reviewing medications and ordering home medications, examining patient, discussed plan of care with care team, collaborating with physician, and documenting in chart. CPT#33979 Problem List/Past Medical History Ongoing Chronic renal failure, stage 3 (moderate) HTN (hypertension) Osteoporosis Serum calcium elevated Historical Acute bronchitis due to infection DDD (degenerative disc disease), lumbar Hypercalcemia Microalbuminuria Neck pain on right side Proteinuria of undiagnosed cause Sciatica Procedure/Surgical History Colonoscopy and biopsy of colon: 11/02/19 Colonoscopy: 04/11/11 Appendectomy Abdominal hysterectomy Cholecystectomy Medications Home Medications (7) Active amiodarone 200 mg oral tablet 400 mg = 2 tab(s), Oral, BIDM Bumex 1 mg = 1 tab(s), Oral, BID Cardizem CD 120 mg/24 hours oral capsule, extended release 120 mg = 1 cap(s), Oral, qDay Eliquis 2.5 mg oral tablet 2.5 mg = 1 tab(s), Oral, BID Jardiance 10 mg oral tablet 10 mg = 1 tab(s), Oral, qAM Prolia 60 mg/mL subcutaneous solution 60 mg = 1 mL, Subcutaneous, q6mo Toprol-XL 50 mg oral tablet, extended release 50 mg = 1 tab(s), Oral, BIDM Allergies alendronate (Moderate) Myalgia amLODIPine (Mild) Edema Periactin Numbness Social History Smoking Status - 03/04/2017 Current every day smoker Alcohol - Denies Alcohol Use, 03/04/2017 Use: Never., 12/04/2018 Employment/School Status: Retired., 12/04/2018 Exercise Home/Environment None Domestic Concerns:. Living situation: Home/Independent. Single level home Lives In:., 12/04/2018 Nutrition/Health Type of diet: Regular. Caffeine intake amount: 3 servings a day. Appetite Good. Eating DifficultiesNone., 02/23/2024 Substance Abuse - Denies Substance Abuse, 03/04/2017 Use: Never., 12/04/2018 Tobacco Nicotine Use: 10 or more cigarettes (1/2 pack or more)/day in last 30 days. Type: Cigarettes. Number of years: 47., 09/01/2023 Family History COPD: Mother. Respiratory disease: Father. Health Status Family Member(s) Immunizations diphtheria/tetanus/pertussis (DTaP) ped: 0 unknown unit (08/14/14) pneumococcal 13-valent conjugate vaccine: 0.5 unknown unit (03/09/19) pneumococcal 23-valent vaccine(Pneumovax: 0 unknown unit (04/11/02) pneumococcal 23-valent vaccine(Pneumovax: 0 unknown unit (03/10/02) SARS-CoV-2 (COVID-19) mRNA-1273 vaccine: 0.25 unknown unit (02/12/21) SARS-CoV-2 (COVID-19) mRNA-1273 vaccine: 0.5 unknown unit (07/26/20) SARS-CoV-2 (COVID-19) mRNA-1273 vaccine: 0.5 unknown unit (06/28/20) tetanus/diphth/pertuss (Tdap) adult/adol: 0.5 mL (08/14/14) zoster vaccine, inactivated: 1 unknown unit (08/19/20) zoster vaccine, inactivated: 1 unknown unit (04/18/20) Code Status Code Status - Ordered -- 05/23/24 14:23:00 EST, Full Code, Constant Order Digitally Signed by DANIELLA HERNANDEZ on 05/23/2024 08:06 PM [facility]02-12-2025 Hospital Discharge instructions Patient Education 05/23/2024 12:11:10 Heart Failure Exacerbation Heart Failure Exacerbation Heart failure is a condition in which the heart does not fill up with enough blood, and therefore does not pump enough blood and oxygen to the body. When this happens, parts of the body do not get the blood and oxygen they need to function properly. This can cause symptoms such as breathing problems, fatigue, swelling, and confusion. Heart failure exacerbation refers to heart failure symptoms that get worse. The symptoms may get worse suddenly or develop slowly over time. Heart failure exacerbation is a serious medical problem that should be treated right away. What are the causes? A heart failure exacerbation can be triggered by: Not taking your heart failure medicines correctly. Infections. Eating an unhealthy diet or a diet that is high in salt (sodium). Drinking too much fluid. Drinking alcohol. Taking illegal drugs, such as cocaine or methamphetamine. Not exercising. Other causes include: Other heart conditions such as an irregular heartbeat (arrhythmia). Anemia. Other medical problems, such as kidney failure. Sometimes the cause of the exacerbation is not known. What are the signs or symptoms? When heart failure symptoms suddenly or slowly get worse, this may be a sign of heart failure exacerbation. Symptoms of heart failure include: Breathing problems or shortness of breath. Chronic coughing or wheezing. Fatigue. Nausea or lack of appetite. Feeling light-headed. Confusion or memory loss. Increased heart rate or irregular heartbeat. Buildup of fluid in the legs, ankles, feet, or abdomen. Difficulty breathing when lying down. How is this diagnosed? This condition is diagnosed based on: Your symptoms and medical history. A physical exam. You may also have tests, including: Electrocardiogram (ECG). This test measures the electrical activity of your heart. Echocardiogram. This test uses sound waves to take a picture of your heart to see how well it works. Blood tests. Imaging tests, such as: ?Chest X-ray. ?MRI. ?Ultrasound. Stress test. This test examines how well your heart functions when you exercise. Your heart is monitored while you exercise on a treadmill or exercise bike. If you cannot exercise, medicines may be used to increase your heartbeat in place of exercise. Cardiac catheterization. During this test, a thin, flexible tube (catheter) is inserted into a blood vessel and threaded up to your heart. This test allows your health care provider to check the arteries that lead to your heart (coronary arteries). Right heart catheterization. During this test, the pressure in your heart is measured. How is this treated? This condition may be treated by: Adjusting your heart medicines. Maintaining a healthy lifestyle. This includes: ?Eating a heart-healthy diet that is low in sodium. ?Not using any products that contain nicotine or tobacco, such as cigarettes and e-cigarettes. ?Regular exercise. ?Monitoring your fluid intake. ?Monitoring your weight and reporting changes to your health care provider. Treating sleep apnea, if you have this condition. Surgery. This may include: ?Implanting a device that helps both sides of your heart contract at the same time (cardiac resynchronization therapy device). This can help with heart function and relieve heart failure symptoms. ?Implanting a device that can correct heart rhythm problems (implantable cardioverter defibrillator). ?Connecting a device to your heart to help it pump blood (ventricular assist device). ?Heart transplant. Follow these instructions at home: Medicines Take [id number] and prescription medicines only as told by your health care provider. Do not stop taking your medicines or change the amount you take. If you are having problems or sideeffects from your medicines, talk to your health care provider. If you are having difficulty paying for your medicines, contact a licensed clinical social worker or your clinic. There are many programs to assist with medicine costs. Talk to your health care provider before starting any new medicines or supplements. Make sure your health care provider and pharmacist have a list of all the medicines you are taking. Eating and drinking Avoid drinking alcohol. Eat a heart-healthy diet as told by your health care provider. This includes: ?Plenty of fruits and vegetables. ?Lean proteins. ?Low-fat dairy. ?Whole grains. ?Foods that are low in sodium. Activity Exercise regularly as told by your health care provider. Balance exercise with rest. Ask your health care provider what activities are safe for you. This includes sexual activity, exercise, and daily tasks at home or work. Lifestyle Do not use any products that contain nicotine or tobacco, such as cigarettes and e-cigarettes. If you need help quitting, ask your health care provider. Maintain a healthy weight. Ask your health care provider what weight is healthy for you. Consider joining a patient support group. This can help with emotional problems you may have, such as stress and anxiety. General instructions Talk to your health care provider about flu and pneumonia vaccines. Keep a list of medicines that you are taking. This may help in emergency situations. Keep all follow-up visits as told by your health care provider. This is important. Contact a health care provider if: You have questions about your medicines or you miss a dose. You feel anxious, depressed, or stressed. You have swelling in your feet, ankles, legs, or abdomen. You have shortness of breath during activity or exercise. You have a cough. You have a fever. You have trouble sleeping. You gain 2 3 lb (1 1.4 kg) in 24 hours or 5 lb (2.3 kg) in a week. Get help right away if: You have chest pain. You have shortness of breath while resting. You have severe fatigue. You are confused. You have severe dizziness. You have a rapid or irregular heartbeat. You have nausea or you vomit. You have a cough that is worse at night or you cannot lie flat. You have a cough that will not go away. You have severe depression or sadness. Summary When heart failure symptoms get worse, it is called heart failure exacerbation. Common causes of this condition include taking medicines incorrectly, infections, and drinking alcohol. This condition may be treated by adjusting medicines, maintaining a healthy lifestyle, or surgery. Do not stop taking your medicines or change the amount you take. If you are having problems or sideeffects from your medicines, talk to your health care provider. This information is not intended to replace advice given to you by your health care provider. Make sure you discuss any questions you have with your health care provider. Document Released: 08/09/2017 Document Revised: 03/10/2018 Document Reviewed: 08/09/2017 [employer] Patient Education [employer]. Follow Up Care 05/20/2024 01:31:46 With:ASIM DIEHL Address: [address] [place] [address] [address] [facility] [place] [address] [phone] When:5 to 7 days Comments:follow-up in the office [facility] 02-12-2025 Evaluation + Plan noteExtracted from: Title:History and Physical Author:DANIELLA HERNANDEZ Date:05/23/24 1. Asthenia Consult placed to PT and OT. knockdown worker following for discharge planning needs. 2. HTN (hypertension) Chronic. Continue current antihypertensives. SBP goal of 140 or less. 3. Atrial fibrillation Persistent, rate controlled. Continue Cardizem 120 mg PO daily. Continue Amiodarone 400 mg PO BID x 7 days (stop 05/24 at 2330). On 05/25, start Amiodarone 200 mg PO BID x 7 days (stop 05/31 at 2330). On 06/01, start Amiodarone 200 mg PO daily. 30-day event monitored by [facility] cardiology. Patient will need to follow-up with Asim Diehl CNP next week. Continue eliquis. 4. HFrEF (heart failure with reduced ejection fraction) Echo on 05/16 shows EF 40-45%, Grade II diastolic dysfunction. Continue Bumex 1 mg PO BID. Continue Jardiance 10 mg PO daily. Repeat BMP on Tuesday, 05/28. 5. Chronic renal failure, stage 3 (moderate) Chronic. Baseline GFR 56-59 - 39 this am but improving. Repeat BMP on 05/28. DVT prophylaxis with eliquis. Code status: Full Code. Labs, diagnostic test and progress notes reviewed as noted in HPI. Plan of care discussed with patient. All questions answered. Patient verbalizes understanding and is agreeable with plan of care. This case was discussed with collaborating physician, Dr. Rylan Rodriguez. 57 minutes spent reviewing past diagnostic tests, reviewing lab results, vital sign trends, medical history, reviewing medications and ordering home medications, examining patient, discussed plan of care with care team, collaborating with physician, and documenting in chart. CPT#86085 Future Appointments Appointment Date:06/13/2024 02:00:00 PM Scheduled Provider:ASIM DIEHL Location:[facility] Appointment Type:CV OV Hospital Follow Up Appointment Date:07/19/2024 03:30:00 PM Scheduled Provider:EMILIANO LEAL DO Location:[facility] Appointment Type: OV Future Scheduled Tests Laboratory* Basic Metabolic Panel 05/17/24 * Calcium Level Ionized 05/17/24 * PTH, Intact 05/17/24 Radiology* MA Mammo Diagnostic Right w/ Brian 11/23/23 * US Breast Right Limited 11/23/23 [facility] 02-12-2025 Note Discharge Instructions Thank you for allowing [facility] to assist you with your healthcare needs. The following is importantdischarge information regarding your hospital visit. Your Care Team Daniella Hernandez CNP Your Diagnosis Atrial fibrillation CHF exacerbation Chronic renal failure, stage 3 (moderate) HTN (hypertension) Mitral regurgitation Type 2 VT (myocardial infarction) What to do next Instructions From Your Doctor You were admitted to [facility] transitional care [facility] for ongoing rehab before going home. Unfortunately, shortly after arrival, you went back into atrial fibrillation and this caused you to become fluid overloaded. We had to readmit you to inpatient status. We consulted Asim Diehl CNPcardiology, who saw you and helped adjust medications. You are doing better today and we have been able to decrease your oxygen. Therapy saw you and felt that you would still benefit from staying in the transitional care program for ongoing rehab. We will schedule you in with Shannon TAMEZ next week sothat she can help monitor you and recommend any further medication adjustments. We will continue tofollow along while you are in the TCU and work to wean you off of the oxygen. You are medically optimized for discharge to [facility] TCU today. Scheduled Follow-Up Appointments Appointment Type When With Where Contact Information StatusCV OV Hospital Follow Up 06/13/2024 02:45 PM EST KIMBERLY AGUILAR [facility] [place] Confirmed PC OV 07/19/2024 03:30 PM EDT EMILIANO LEAL [facility] [address] [place] [address] Confirmed Follow Up Appointments Follow Up with ASIM DIEHL When:Within 5 to 7 days Where:[address] [place] [address]- [phone] Additional Information: follow-up in the office The Following Activity and Diet Have Been Ordered for You Transfer of Care Activity - Ordered -- As instructed by therapy, 05/23/24 12:24:00 EST Transfer of Care Diet - Ordered -- Type of Diet: Regular Diet, 05/23/24 12:24:00 EST The Following Treatments Have Been Ordered for You Discharge Labs No qualifying data available. Discharge Radiology No qualifying data available. Other Therapies Transfer of Care OT - Ordered -- Reason for therapy: weakness, 05/23/24 12:24:00 EST Transfer of Care PT - Ordered -- Reason for therapy: Weakness, 05/23/24 12:24:00 EST Post Acute Orders Transfer of Care Admission Level of Care - Ordered -- Level of Care SNF, 05/23/24 12:24:39 EST Transfer of Care Code Status - Ordered -- Full Code, Constant Order Transfer of Care Orders Electronically Signed By - Ordered -- 05/23/24 12:24:00 MARY CHOW LISA M APRN-CNP Transfer of Care Oxygen Therapy - Ordered -- Oxygen (CONTINUOUS), Mobile in the Home, Nasal Cannula, 2 liters per minute, 99 month(s), 05/23/24 12:24:00 EST Transfer of Care Prognosis - Ordered -- Fair, Patient Aware: Yes Transfer of Care Rehab Potential - Ordered -- Rehab potential fair, 05/23/24 12:24:39 EST Allergies alendronate (Moderate) Myalgia amLODIPine (Mild) Edema Periactin Numbness Medications Please ask your primary doctor or pharmacist before taking any other medication not listed, including over the counter drugs, herbal medications, vitamins and or supplements as they may interact withyour home medications. What How Much When Why Instructions Last Dose New bumetanide (Bumex) 1 Milligram by mouth Two (2) times a day New dilTIAZem (Cardizem CD 120 mg/ 24 hours oral capsule, extended release) 1 cap by mouth Once a day New empagliflozin (Jardiance 10 mg oral tablet) 1 tab(s) by mouth Once a day (in the morning) Changed amiodarone (amiodarone 200 mg oral tablet) 2 tab(s) by mouth Twice daily with meals Duration: 7 Days Changed apixaban (Eliquis 2.5 mg oral tablet) 1 tab(s) by mouth Two (2) times a day Unchanged denosumab (Prolia 60 mg/ mL subcutaneous solution) 1 Milliliter Subcutaneous Every 6 months Osteoporosis Unchanged metoprolol (Toprol-XL 50 mg oral tablet, extended release) 1 tab(s) by mouth Twice daily with meals What How Much When Comments Stop Taking furosemide (Lasix 40 mg oral tablet) 1 tab(s) by mouth Once a day Please take this list to your next doctor s visit. Bring all medications you take, including over the counter medications, herbals and other supplements with you to your doctor s visit. Patients and families are reminded to discard old lists and to update any records with all medication providers or retail pharmacies. Education Materials Heart Failure Exacerbation Heart failure is a condition in which the heart does not fill up with enough blood, and therefore does not pump enough blood and oxygen to the body. When this happens, parts of the body do not get the blood and oxygen they need to function properly. This can cause symptoms such as breathing problems, fatigue, swelling, and confusion. Heart failure exacerbation refers to heart failure symptoms that get worse. The symptoms may get worse suddenly or develop slowly over time. Heart failure exacerbation is a serious medical problem that should be treated right away. What are the causes? A heart failure exacerbation can be triggered by: Not taking your heart failure medicines correctly. Infections. Eating an unhealthy diet or a diet that is high in salt (sodium). Drinking too much fluid. Drinking alcohol. Taking illegal drugs, such as cocaine or methamphetamine. Not exercising. Other causes include: Other heart conditions such as an irregular heartbeat (arrhythmia). Anemia. Other medical problems, such as kidney failure. Sometimes the cause of the exacerbation is not known. What are the signs or symptoms? When heart failure symptoms suddenly or slowly get worse, this may be a sign of heart failure exacerbation. Symptoms of heart failure include: Breathing problems or shortness of breath. Chronic coughing or wheezing. Fatigue. Nausea or lack of appetite. Feeling light-headed. Confusion or memory loss. Increased heart rate or irregular heartbeat. Buildup of fluid in the legs, ankles, feet, or abdomen. Difficulty breathing when lying down. How is this diagnosed? This condition is diagnosed based on: Your symptoms and medical history. A physical exam. You may also have tests, including: Electrocardiogram (ECG). This test measures the electrical activity of your heart. Echocardiogram. This test uses sound waves to take a picture of your heart to see how well it works. Blood tests. Imaging tests, such as: ? Chest X-ray. ? MRI. ? Ultrasound. Stress test. This test examines how well your heart functions when you exercise. Your heart is monitored while you exercise on a treadmill or exercise bike. If you cannot exercise, medicines may be used to increase your heartbeat in place of exercise. Cardiac catheterization. During this test, a thin, flexible tube (catheter) is inserted into a blood vessel and threaded up to your heart. This test allows your health care provider to check the arteries that lead to your heart (coronary arteries). Right heart catheterization. During this test, the pressure in your heart is measured. How is this treated? This condition may be treated by: Adjusting your heart medicines. Maintaining a healthy lifestyle. This includes: ? Eating a heart-healthy diet that is low in sodium. ? Not using any products that contain nicotine or tobacco, such as cigarettes and e-cigarettes. ? Regular exercise. ? Monitoring your fluid intake. ? Monitoring your weight and reporting changes to your health care provider. Treating sleep apnea, if you have this condition. Surgery. This may include: ? Implanting a device that helps both sides of your heart contract at the same time (cardiac resynchronization therapy device). This can help with heart function and relieve heart failure symptoms. ? Implanting a device that can correct heart rhythm problems (implantable cardioverter defibrillator). ? Connecting a device to your heart to help it pump blood (ventricular assist device). ? Heart transplant. Follow these instructions at home: Medicines Take ivkf-ffb-gswkbyd and prescription medicines only as told by your health care provider. Do not stop taking your medicines or change the amount you take. If you are having problems or sideeffects from your medicines, talk to your health care provider. If you are having difficulty paying for your medicines, contact a licensed clinical social worker or your clinic. There are many programs to assist with medicine costs. Talk to your health care provider before starting any new medicines or supplements. Make sure your health care provider and pharmacist have a list of all the medicines you are taking. Eating and drinking Avoid drinking alcohol. Eat a heart-healthy diet as told by your health care provider. This includes: ? Plenty of fruits and vegetables. ? Lean proteins. ? Low-fat dairy. ? Whole grains. ? Foods that are low in sodium. Activity Exercise regularly as told by your health care provider. Balance exercise with rest. Ask your health care provider what activities are safe for you. This includes sexual activity, exercise, and daily tasks at home or work. Lifestyle Do not use any products that contain nicotine or tobacco, such as cigarettes and e-cigarettes. If you need help quitting, ask your health care provider. Maintain a healthy weight. Ask your health care provider what weight is healthy for you. Consider joining a patient support group. This can help with emotional problems you may have, such as stress and anxiety. General instructions Talk to your health care provider about flu and pneumonia vaccines. Keep a list of medicines that you are taking. This may help in emergency situations. Keep all follow-up visits as told by your health care provider. This is important. Contact a health care provider if: You have questions about your medicines or you miss a dose. You feel anxious, depressed, or stressed. You have swelling in your feet, ankles, legs, or abdomen. You have shortness of breath during activity or exercise. You have a cough. You have a fever. You have trouble sleeping. You gain 2 3 lb (1 1.4 kg) in 24 hours or 5 lb (2.3 kg) in a week. Get help right away if: You have chest pain. You have shortness of breath while resting. You have severe fatigue. You are confused. You have severe dizziness. You have a rapid or irregular heartbeat. You have nausea or you vomit. You have a cough that is worse at night or you cannot lie flat. You have a cough that will not go away. You have severe depression or sadness. Summary When heart failure symptoms get worse, it is called heart failure exacerbation. Common causes of this condition include taking medicines incorrectly, infections, and drinking alcohol. This condition may be treated by adjusting medicines, maintaining a healthy lifestyle, or surgery. Do not stop taking your medicines or change the amount you take. If you are having problems or sideeffects from your medicines, talk to your health care provider. This information is not intended to replace advice given to you by your health care provider. Make sure you discuss any questions you have with your health care provider. Document Released: 08/09/2017 Document Revised: 03/10/2018 Document Reviewed: 08/09/2017 [employer] Patient Education 2020 [employer]. Additional Information VACCINATE! IT SAVES LIVES! Members of the community who have not yet received the COVID-19 vaccine and would like to receive it can visit one of [facility] vaccine clinics. There are many vaccine clinic locations within the [facility]. For locations and available times, please visit [email or web address].[place].gov/. It is important to note that some COVID mobile vaccine clinics are held outdoors and may be canceled in rainy or stormy conditions. To learn more about pediatric vaccinations (ages 5-11), we invite you to visit the [facility] webpage. [email or web address]/[email or web address] [email or web address].htmlTo learn more about the COVID-19 vaccine, we invite you to visit the CDC website for a list of frequently asked questions.https://www.cdc.gov/coronavirus/2019-ncov/vaccines/faq.html [facility] Patient Portal Access Instructions: Stay connected with your healthcare team and access your personal medical information anytime with the [facility] Patient Portal. Please follow the directions below to create your [facility] account: 1.Access the email account you provided upon registration to the hospital/physician office.2.Look for an invitation email from [facility].3.Open the email and access the invitation link: [facility].4.Fill in the required tripp to create your account. To access your account, visit [facility]. Click the blue button labeled Access Patient Portal and then log in with the username and password that you created in the steps above. You will be able to view your test results, lab results, a summary of your visits, upcoming appointments and more. There is also a convenient messaging option where you can send secure messages to your p rovider. In addition, you will have the ability to download any documents or summaries to your computer and/or send the information securely to a physician. Remember that your healthcare information is confidential, so carefully consider who you will allowto register on the [facility] Patient Portal for access to your information. You can also access the [facility] Patient Portal on the [facility] duke. Simply click on Patient Portal and then log into your account. If you would like to receive a full copy of your medical records, please contact the [facility] Medical Records Department by calling [phone], Tuesday through Tuesday between 8 a.m. and 4:30 p.m. HOW TO SAFELY DISPOSE OF PRESCRIPTION MEDICATIONS Please use one of the following methods to safely dispose of your unused medications. 1.Use a drug disposal kit: the drug disposal pouch allows you to safely discard your old and unuseddrugs. Ask your nurse to give you one when you are discharged.2.Visit a local take-back location: Many local pharmacies and police departments have programs that collect old and unwanted prescriptiondrugs. Call your local pharmacy or go to http://bit.cortical.io/1B0Bn4p to find one close to you.3.Make use of household items: Use cat litter or old coffee grounds to dispose medications if other options arenot available. Mix your drugs with these household products, seal them in an airtight container andthrow it into the garbage. Call [facility]: [phone] to be sure your drugs can be disposed of in this way. Some medicines may require a different approach.4.Never flush your medications down the toilet. IF YOU HAVE BEEN PRESCRIBED AN OPIOID FOR PAIN If you have been prescribed an opioid (such as hydrocodone, oxycodone or morphine), it is critical to understand the possible side effects and risks of opioid pain medications. Even when taken as directed, opioids can have several side effects including: Tolerance, meaning you might need to take more of a medication for the same pain relief. Nausea, vomiting and/or constipation. Sleepiness, dizziness, dry mouth, confusion, depression or itching. Physical dependence, meaning you have withdrawal symptoms when a medication is stopped, can develop within a few days. KNOW YOUR RESPONSIBILITIES It is important to know exactly how much and how often to take the opioid pain medications you are prescribed. Never take opioids in higher amounts or more often than prescribed. Do not combine opioids with alcohol or other drugs that cause drowsiness, such as benzodiazepines, also known as benzos, including diazepam and alprazolam, muscle relaxants or sleep aids. Never sell or share prescription opioids. This is illegal. Store opioids in a secure place and out of reach of others (including children, family, friends and visitors). The last page of this document has been signed and retained as a CHART COPY. Signatures Patient Education Materials Heart Failure Exacerbation Medication Leaflets My discharge plan and instructions have been reviewed and explained to me and I,JED SEWELL understand my current condition and have read and understand these discharge instructions. I have received a written copy of the plan/instructions. If I have questions, I am aware that I should contact my doctor. 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 She states that she is feeling muchbetter today. She has been weaned to 2L of oxygen. She was seen by cardiology who made some medication adjustments. Patient's heart rate is better controlled today, mostly in the 80's. She was also switched to oral bumex today. Lungs are clear to auscultation. Anticipate that her breathing will impr ove when she is moving better. Will start precert for swing program today with plan to transition her tomorrow if obtained. Patient denies any new problems or concerns today. All questions answered. Objective Vitals and Measurements T: 36.8 C (Oral) TMIN: 36.2 C (Oral) TMAX: 37.1 C (Axillary) HR: 75 (Monitored) RR: 18 BP: 132/67 SpO2: 98% WT: 59.2 kg Intake and Output 7AM Yesterday to 7AM Today Intake and Output (Last 24 hours) Intake Oral Intake 780.00 Output Urinary Catheter Output: 1900.00 Total Summary Total Intake 780.00 Total Output 1900.00 Fluid Balance -1120.00 Physical Exam General: No acute distress. Patient is alert, chronically ill-appearing. Skin: No rash. Skin is warm, dry and intact. HEENT: Head is normocephalic, atraumatic. Pupils are equal, round and reactive. Neck: Supple. No lymphadenopathy, thyromegaly. Lungs: Bilaterally clear but diminished without crepitation or wheeze. Unlabored. Heart: Heart is irregular rhythm. No murmurs, gallops or rubs. Abdomen: Abdomen is soft, nontender. Bowels sounds present in all quadrants. Extremities: No clubbing, cyanosis, or edema. Peripheral pulses palpable. No calf tenderness. Neurological: Patient is awake and alert to person, place and time. Following simple commands, moving all extremities. Weight Current Weight Dosing Weight: 63.8 kg (05/20/24) Current Weight: 59.2 kg (05/22/24) Current Weight: 59.7 kg (05/21/24) Medications Medications (12) Active Scheduled: (9) amiodarone 200 mg tablet 400 mg 2 tab(s), Oral, BIDM amiodarone 200 mg tablet 200 mg 1 tab(s), Oral, qDay apixaban 2.5 mg tablet 2.5 mg 1 tab(s), Oral, BID bumetanide 1 mg tablet 1 mg 1 tab(s), Oral, BID diltiazem 120 mg/24 hours ER capsule 120 mg 1 cap(s), Oral, qDay docusate sodium 100 mg Capsule 100 mg 1 cap(s), Oral, BID empagliflozin 10 mg tablet 10 mg 1 tab(s), Oral, qAM metoprolol succinate 50 mg ER tablet 50 mg 1 tab(s), Oral, BIDM miconazole 2% Vaginal Cream with appl 1 appl, Vaginal, qHS Continuous: (0) PRN: (3) acetaminophen 325 mg Tablet 650 mg 2 tab(s), Oral, q4h acetaminophen 325 mg Tablet 650 mg 2 tab(s), Oral, q4h ondansetron 2 mg/ 1 mL 2 mL INJ 4 mg 2 mL, IV Push, q8h Lab Results 05/22 05:31 Glucose Level: 89 Sodium Level: 139 Potassium Level: 4.5 BUN: 38 H Creatinine Lvl (s): 1.61 H 05/21 06:09 WBC: 10.0 Hgb: 14.5 Hct: 41.8 Platelet: 270 Neutrophil %: 76.9 H Glucose Level: 97 Sodium Level: 136 Potassium Level: 4.2 BUN: 29 H Creatinine Lvl (s): 1.41 H EKG No qualifying data available. Assessment/Plan 1. CHF exacerbation Acute, new onset. Echo done on 05/16 demonstrated EF 40-45% and Grade II diastolic dysfunction. Consult placed to cardiology for recommendation. Continue Jardiance and oral bumex. Repeat BMP in am. 2. Atrial fibrillation New onset of atrial fibrillation with RVR on 05/13. Patient is s/p cardioversion x 3, all 3 unsuccessful. Continue Amiodarone and metoprolol at current dose. Will consult cardiology for recommendation.Continue cardizem 120 mg PO daily, better rate control today. 3. Chronic renal failure, stage 3 (moderate) Chronic. Creatinine baseline 0.96-1.06 prior to admission on 05/13 - up to 1.61 this am from 1.41 yesterday. Cardiology recommended started IV bumex yesterday but switched to oral bumex today. Monitor closely while IV diuresis. Repeat BMP in am. 4. HTN (hypertension) Chronic. Continue current antihypertensives. SBP goal of 140 or less. DVT prophylaxis with eliquis. Code status: Full Code. Labs, diagnostic test and progress notes reviewed as noted in HPI. Plan of care discussed with patient. All questions answered. Patient verbalizes understanding and is agreeable with plan of care. This case was discussed with collaborating physician, Dr. Rylan Rodriguez. Anticipated Date of Discharge next 24 hours Time Spent 36 minutes spent reviewing past diagnostic tests, reviewing lab results, vital sign trends, medicalhistory, reviewing medications and ordering home medications, examining patient, discussed plan of care with care team, collaborating with physician, and documenting in chart. Digitally Signed by DANIELLA HERNANDEZ on 05/22/2024 03:21 PM [facility]02-11-2025 Note Date of Service 05/22/24 Chief Complaint Afib and CHF Subjective This is a pleasant 83-year-old female patient who was admitted to the hospital from the swing unit for persistent atrial fibrillation with RVR. Patient was [facility] to the [facility] from 05[facility]13[facility]24to 05/18/2024 for atrial fibrillation with RVR, HFrEF, and hypertension. Initially she was [facility] to [facility] due to shortness of breath and bilateral lower extremity edema. She is found to be in pulmonary edema on chest x-ray with BNP elevated and EKG showing atrial fibrillation with RVR. During hospital stay she underwent 3 cardioversions. First 2 were unsuccessful. Then patient was initiated on IV amiodarone and third attempt was successful. Patient underwent WARREN which showed EF 40 to 45% and moderate to severe mitral regurgitation. Repeat echocardiogram afterpatient was back in sinus rhythm showed moderate MR. She was discharged home on amiodarone load andLasix p.o. She went to the [facility] swing unit. Yesterday patient went back into [facility] with RVR andacutely had shortness of breath and pulmonary edema. She was transferred to [facility] and initiated on BiPAP and given IV Lasix. Patient reports improvement this morning. Yesterday I gave her IV Bumex twice a day and initiated Cardizem 30 mg 4 times daily to help with heart rate. Overall patient reports feeling improved this morning. Denies chest pain, chest pressure,dizziness, diaphoresis, and syncope. Shortness of breath improved. She is now on oxygen 2 L nasal cannula. Heart rate controlled in the 70s. She does continue in atrial fibrillation. Echo Summary: 1. Left ventricle: The cavity size is mildly increased. Wall thickness is normal. Systolic functionis moderately reduced. The estimated ejection fraction is 40-45%. There is moderate diffuse hypokinesis. Grade II diastolic dysfunction. 2. Aortic valve: Thickening, consistent with sclerosis. 3. Mitral valve: There is moderate regurgitation. 4. Left atrium: The atrium is moderately dilated. 5. Right ventricle: The RV systolic pressure by Doppler is 41 mm Hg. 6. Right atrium: The estimated right atrial pressure is 3 mm Hg. WARREN Summary: 1. Left ventricle: Systolic function is mildly reduced. 2. Aortic valve: There is no evidence of a vegetation. 3. Mitral valve: Posterior leaflet P2 scallop mobility is restricted. There is no evidence of vegetation. There is moderate to severe, 3-4+ regurgitation, directed eccentrically and posteriorly. The effective regurgitant orifice is 0.34 cm . The regurgitant volume is 52 ml. 4. Left atrium: There is no evidence of a thrombus in the atrial cavity or appendage. No spontaneous echo contrast is observed. 5. Left upper pulmonary vein: Doppler signals show systolic flow reversal, suggestive of severe mitral regurgitation. 6. Right lower pulmonary vein: Doppler signals show systolic flow reversal, suggestive of severe mitral regurgitation. 7. Pulmonic valve: There is no evidence of a vegetation. 8. Tricuspid valve: There is no evidence of a vegetation. 9. 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 There is a septal bowing, predominantly within the right atrial cavity. There is no evidence of thrombus. Recommendations: 1. Moderate to severe MR with 2/4 PV systolic reversal / blunting. RV 52 ml; Slightly eccentric posteriorly directed. Visually jet appears moderate. 2. Consider reevaluation of MR severity once AF rate /rhythm controlled and volume status optimized. [1] Objective Vitals and Measurements T: 36.2 C (Oral) TMIN: 36.2 C (Oral) TMAX: 37.1 C (Axillary) HR: 84 (Apical) RR: 18 BP: 144/93 SpO2: 97% WT: 59.2 kg Intake and Output 7AM Yesterday to 7AM Today Intake and Output (Last 24 hours) Intake Oral Intake 300.00 Output Urinary Catheter Output: 1100.00 Total Summary Total Intake 300.00 Total Output 1100.00 Fluid Balance -800.00 Physical Exam GENERAL: Well nourished; no acute distress. PSYCHIATRIC: Alert and oriented x 3, cooperative, mood normal, affect normal. HEAD: Normocephalic, nontraumatic head. EYES: No drainage noted. NECK: Supple, no posterior midline tenderness. Normal range of motion. No JVD noted. CARDIAC: Regular rate, regular rhythm, no murmurs noted. No S3 or S4 noted. RESPIRATORY: Regular rate and depth; no distress, lung sounds clear bilaterally. ABDOMEN: Soft, nontender. Normal bowel sounds. EXTREMITIES: No edema noted. Dorsalis Pedis pulse +2/4 bilaterally. Posterior Tibialis pulse +2/4 bilaterally. DERM: Warm and dry. Normal turgor. Weight Current Weight Dosing Weight: 63.8 kg (05/20/24) Current Weight: 59.2 kg (05/22/24) Current Weight: 59.7 kg (05/21/24) Medications Medications (11) Active Scheduled: (8) amiodarone 200 mg tablet 400 mg 2 tab(s), Oral, BIDM amiodarone 200 mg tablet 200 mg 1 tab(s), Oral, qDay apixaban 2.5 mg tablet 2.5 mg 1 tab(s), Oral, BID bumetanide 1 mg tablet 1 mg 1 tab(s), Oral, BID diltiazem 120 mg/24 hours ER capsule 120 mg 1 cap(s), Oral, qDay empagliflozin 10 mg tablet 10 mg 1 tab(s), Oral, qAM metoprolol succinate 50 mg ER tablet 50 mg 1 tab(s), Oral, BIDM miconazole 2% Vaginal Cream with appl 1 appl, Vaginal, qHS Continuous: (0) PRN: (3) acetaminophen 325 mg Tablet 650 mg 2 tab(s), Oral, q4h acetaminophen 325 mg Tablet 650 mg 2 tab(s), Oral, q4h ondansetron 2 mg/ 1 mL 2 mL INJ 4 mg 2 mL, IV Push, q8h Lab Results 05/22 05:31 Glucose Level: 89 Sodium Level: 139 Potassium Level: 4.5 BUN: 38 H Creatinine Lvl (s): 1.61 H 05/21 06:09 WBC: 10.0 Hgb: 14.5 Hct: 41.8 Platelet: 270 Neutrophil %: 76.9 H Glucose Level: 97 Sodium Level: 136 Potassium Level: 4.2 BUN: 29 H Creatinine Lvl (s): 1.41 H EKG No qualifying data available. Assessment/Plan 1. Atrial fibrillation Persistent, rate controlled this morning. Currently on amiodarone loading dose, metoprolol 50 twicea day, Eliquis 5 mg twice daily, and Cardizem 30 mg 4 times daily. [id number] score 5. *Will transition short acting Cardizem to Cardizem CD 120 once a day *Okay to discharge back to swing unit. *Follow-up in 1 week. 2. Type 2 VT (myocardial infarction) Troponin stable. Most likely due to atrial fibrillation with RVR and pulmonary edema. Will evaluatefor ischemic workup once patient is discharged home. 3. CHF exacerbation Patient appears euvolemic today. [place] Heart Association class III. I think most likely cause ofpulmonary edema is when she goes into a fib with RVR and worsening MR. *DC IV Bumex and start oral *Continue Jardiance *Recommend BMP in 1 week 4. Chronic renal failure, stage 3 (moderate) Creatinine 1.61 this morning. Will discontinue IV Bumex and continue to monitor. 5. Mitral regurgitation WARREN showed moderate to severe MR when patient was in A-fib with RVR. Once patient was back in a normal rhythm MR decreased to moderate. I do think MR is worsening when she is in A-fib with RVR which increases risk of pulmonary edema. Orders: apixaban(Eliquis), 2.5 mg= 1 tab(s), Oral, BID bumetanide(Bumex), 1 mg= 1 tab(s), Oral, BID dilTIAZem(Cardizem CD 120 mg/24 hours oral capsule, extended release), 120 mg= 1 cap(s), Oral, qDay empagliflozin(Jardiance), 10 mg= 1 tab(s), Oral, qAM I reviewed all notes/diagnostic tests/Labs from the ER/Hospitalist [facility] I discussed plan of care with hospitalist [facility] Daniella Hernandez This note was generated using a voice recognition system. There may be incorrect words, spelling's,and punctuation that were missed in checking this note before saving. Digitally Signed by ASIM DIEHL on 05/22/2024 08:56 AM [facility]02-10-2025 Note Date of Service 05/21/2024 Chief Complaint dyspnea Subjective Patient seen and evaluated this morning while resting in bed. She states that she is feeling bettertoday. She was on Bipap overnight again and now on 4L. She is aware that we have consulted cardiology to help with medication adjustments for better heart rate control and diuresis. We will start working to wean her off the oxygen as able. Patient denies any fever, chills, cough, chest pain, abdominal pain, nausea or dysuria. She reports that she is having burning in her vaginal area and feels that she is getting a yeast infection. Attempted to order diflucan but there is an interaction with her amiodarone. Will order a topical cream for her. Therapy will see patient and evaluate her so that we can try for swing again once she is doing better. All questions answered. Objective Vitals and Measurements T: 36.3 C (Oral) TMIN: 35.8 C (Axillary) TMAX: 36.7 C (Oral) HR: 89 (Monitored) RR: 18 BP: 127/91 SpO2: 98% WT: 59.7 kg Intake and Output 7AM Yesterday to 7AM Today Intake and Output (Last 24 hours) Intake Oral Intake 500.00 Output Urinary Catheter Output: 550.00 Total Summary Total Intake 500.00 Total Output 550.00 Fluid Balance -50.00 Physical Exam General: No acute distress. Patient is alert, chronically ill-appearing. Skin: No rash. Skin is warm, dry and intact. HEENT: Head is normocephalic, atraumatic. Pupils are equal, round and reactive. Neck: Supple. No lymphadenopathy, thyromegaly. Lungs: Few faint crackles heard in lower bases bilaterally. Unlabored. Heart: Heart is irregular rhythm. No murmurs, gallops or rubs. Abdomen: Abdomen is soft, nontender. Bowels sounds present in all quadrants. Extremities: No clubbing, cyanosis, or edema. Peripheral pulses palpable. No calf tenderness. Neurological: Patient is awake and alert to person, place and time. Following simple commands, moving all extremities. Weight Current Weight Dosing Weight: 63.8 kg (05/20/24) Current Weight: 59.7 kg (05/21/24) Medications Medications (11) Active Scheduled: (8) amiodarone 200 mg tablet 400 mg 2 tab(s), Oral, BIDM amiodarone 200 mg tablet 200 mg 1 tab(s), Oral, qDay apixaban 2.5 mg tablet 2.5 mg 1 tab(s), Oral, BID bumetanide 0.25 mg/1 mL 4 mL VIAL 2 mg 8 mL, IV Push, BID diltiazem 30 mg tablet 30 mg 1 tab(s), Oral, QID empagliflozin 10 mg tablet 10 mg 1 tab(s), Oral, qAM metoprolol succinate 50 mg ER tablet 50 mg 1 tab(s), Oral, BIDM miconazole 2% Vaginal Cream with appl 1 appl, Vaginal, qHS Continuous: (0) PRN: (3) acetaminophen 325 mg Tablet 650 mg 2 tab(s), Oral, q4h acetaminophen 325 mg Tablet 650 mg 2 tab(s), Oral, q4h ondansetron 2 mg/ 1 mL 2 mL INJ 4 mg 2 mL, IV Push, q8h Lab Results 05/21 06:09 WBC: 10.0 Hgb: 14.5 Hct: 41.8 Platelet: 270 Neutrophil %: 76.9 H Glucose Level: 97 Sodium Level: 136 Potassium Level: 4.2 BUN: 29 H Creatinine Lvl (s): 1.41 H 05/20 05:55 Glucose Level: 93 Sodium Level: 138 Potassium Level: 4.4 BUN: 27 H Creatinine Lvl (s): 1.23 H EKG No qualifying data available. Assessment/Plan 1. CHF exacerbation Acute, new onset. Echo done on 05/16 demonstrated EF 40-45% and Grade II diastolic dysfunction. Continue furosemide 40 mg IV daily. Consult placed to cardiology for recommendation. Starting Jardiance and bumex. Repeat BMP in am. 2. Atrial fibrillation New onset of atrial fibrillation with RVR on 05/13. Patient is s/p cardioversion x 3, all 3 unsuccessful. Continue Amiodarone and metoprolol at current dose. Will consult cardiology for recommendation.Recommended starting cardizem 30 mg PO QID. 3. Chronic renal failure, stage 3 (moderate) Chronic. Creatinine baseline 0.96-1.06 prior to admission on 05/13 - up to 1.41 this am. Cardiology recommended starting bumex. Monitor closely while IV diuresis. Repeat BMP in am. 4. HTN (hypertension) Chronic. Continue current antihypertensives. SBP goal of 140 or less. DVT prophylaxis with eliquis. Code status: Full Code. Labs, diagnostic test and progress notes reviewed as noted in HPI. Plan of care discussed with patient. All questions answered. Patient verbalizes understanding and is agreeable with plan of care. This case was discussed with collaborating physician, Dr. Jarek Musa. Anticipated Date of Discharge next 24-48 hours Time Spent 36 minutes spent reviewing past diagnostic tests, reviewing lab results, vital sign trends, medicalhistory, reviewing medications and ordering home medications, examining patient, discussed plan of care with care team, collaborating with physician, and documenting in chart. Digitally Signed by DANIELLA HERNANDEZ on 05/21/2024 03:51 PM [facility]02-09-2025 Note Date of Service 05/20/2024 Chief Complaint severe dyspnea History of Present Illness Patient is an 83-year-old female, who follows with Dr. Emiliano eLal with a past medical history significant for hypertension, chronic kidney disease stage 3, atrial fibrillation, and heart failure,presented to [facility] transitional care program on 05/18 for ongoing rehab. She was admitted to [facility] CCU from 05/13-05/18 for treatment of new onset of atrial fibrillation and congestive heart failure. She was cardioverted three times while admitted with the last attempt successful. She also had an echocardiogram which revealed an EF 40-45% and Grade II diastolic dysfunction. Patient was started on amiodarone, eliquis and furosemide during her admission and was felt to be medically optimized for discharge to TCU program on Tuesday night. Patient states that when she attempted to get up to use the bathroom last night she became acutely short of breath and had increased work of breathing. Her oxygen saturations were noted to be 81% on room air. Per nursing, her lungs sounded wet with concern for flash pulmonary edema. Patient was given 40 mg furosemide IV andplaced on Bipap overnight. Patient denies any fever, chills, chest pain, abdominal pain, nausea or dysuria. Chest x-ray revealed moderate pulmonary edema with small bilateral pleural effusion. White blood cell count 14. CBC otherwise unremarkable. BMP significant for glucose 198, BUN 28 and creatinine 1.16. Troponin 141 and repeat 141 (troponin over at [facility] was 207 and 133 on 05/13 and 05/14). This was likely related to supply demand mismatch. BNP elevated at 18,271 (previous BNP on 05/13 was 12,375). Patient was administered 40 mg furosemide IV and placed on Bipap overnight. She was seen and evaluated this morning while resting in bed on 3L via nasal cannula. Will continue furosemide 40 mg IV daily. We will consult cardiology for further recommendation. Continue supplemental oxygen as needed to maintain oxygen saturations at 92% or better overnight. We will place patient on Bipap again overnight. Repeat CBC and BMP in the am. Patient is expected to require at least 2 midnights of hospitalization, including care already provided while still in TCU program for flash pulmonary edema and recurrence of atrial fibrillation as evidenced by BNP 18,271 and chest x-ray demonstrating moderate pulmonary edema with small bilateral pleural effusion. She will require IV diuresis, Bipap and/or supplemental oxygen along with close monitoring to avoid potential progression to acute respiratory failure. Review of Systems Review of Systems: Reviewed in detail, including general health, HEENT, cardiovascular, respiratory, gastrointestinal, genitourinary, endocrine, musculoskeletal, neurologic, vascular, skin, and psychiatric. All are negative except for those listed in the History of Present Illness. Physical Exam Vitals and Measurements T: 36.4 C (Oral) TMIN: 36.4 C (Oral) TMAX: 36.6 C (Oral) HR: 79 (Monitored) RR: 26 (Total) BP: 111/81 SpO2: 96% HT: 160 cm WT: 63.8 kg BMI: 24.92 Weight Dosing Weight: 63.8 kg (05/20/24) General: No acute distress. Patient is alert, chronically ill-appearing. Skin: No rash. Skin is warm, dry and intact. HEENT: Head is normocephalic, atraumatic. Pupils are equal, round and reactive. Neck: Supple. No lymphadenopathy, thyromegaly. Lungs: Faint, scattered expiratory wheezes heard in all tripp. Unlabored. Heart: Heart is regular rhythm, S1, S2. No murmurs, gallops or rubs. Abdomen: Abdomen is soft, nontender. Bowels sounds present in all quadrants. Extremities: No clubbing, cyanosis, or edema. Peripheral pulses palpable. No calf tenderness. Neurological: Patient is awake and alert to person, place and time. Following simple commands, moving all extremities. Lab Results 05/20 05:55 Glucose Level: 93 Sodium Level: 138 Potassium Level: 4.4 BUN: 27 H Creatinine Lvl (s): 1.23 H Assessment/Plan 1. CHF exacerbation Acute, new onset. Echo done on 05/16 demonstrated EF 40-45% and Grade II diastolic dysfunction. Continue furosemide 40 mg IV daily. Consult placed to cardiology for recommendation. Repeat BMP and BNP in am. 2. Atrial fibrillation New onset of atrial fibrillation with RVR on 05/13. Patient is s/p cardioversion x 3, all 3 unsuccessful. Continue Amiodarone and metoprolol at current dose. Will consult cardiology for recommendation. 3. Chronic renal failure, stage 3 (moderate) Chronic. Creatinine baseline 0.96-1.06 prior to admission on 05/13 - up to 1.23 this am. Monitor closely while IV diuresis. Repeat BMP in am. 4. HTN (hypertension) Chronic. Continue current antihypertensives. SBP goal of 140 or less. DVT prophylaxis with eliquis. Code status: Full Code. Labs, diagnostic test and progress notes reviewed as noted in HPI. Plan of care discussed with patient. All questions answered. Patient verbalizes understanding and is agreeable with plan of care. This case was discussed with collaborating physician, Dr. Rylan Rodriguez. 77 minutes spent reviewing past diagnostic tests, reviewing lab results, vital sign trends, medicalhistory, reviewing medications and ordering home medications, examining patient, discussed plan of care with care team, collaborating with physician, and documenting in chart. Problem List/Past Medical History Ongoing Chronic renal failure, stage 3 (moderate) HTN (hypertension) Osteoporosis Serum calcium elevated Historical Acute bronchitis due to infection DDD (degenerative disc disease), lumbar Hypercalcemia Microalbuminuria Neck pain on right side Proteinuria of undiagnosed cause Sciatica Procedure/Surgical History Colonoscopy and biopsy of colon: 11/02/19 Colonoscopy: 04/11/11 Appendectomy Cholecystectomy Abdominal hysterectomy Medications Home Medications (6) Active amiodarone 200 mg oral tablet 400 mg = 2 tab(s), Oral, BIDM amiodarone 200 mg oral tablet 200 mg = 1 tab(s), Oral, qDay Eliquis 5 mg oral tablet 5 mg = 1 tab(s), Oral, BID Lasix 40 mg oral tablet 40 mg = 1 tab(s), Oral, qDay Prolia 60 mg/mL subcutaneous solution 60 mg = 1 mL, Subcutaneous, q6mo Toprol-XL 50 mg oral tablet, extended release 50 mg = 1 tab(s), Oral, BIDM Allergies alendronate (Moderate) Myalgia amLODIPine (Mild) Edema Periactin Numbness Social History Smoking Status - 03/04/2017 Current every day smoker Alcohol - Denies Alcohol Use, 03/04/2017 Use: Never., 12/04/2018 Employment/School Status: Retired., 12/04/2018 Exercise Home/Environment None Domestic Concerns:. Living situation: Home/Independent. Single level home Lives In:., 12/04/2018 Nutrition/Health Type of diet: Regular. Caffeine intake amount: 3 servings a day. Appetite Good. Eating DifficultiesNone., 02/23/2024 Substance Abuse - Denies Substance Abuse, 03/04/2017 Use: Never., 12/04/2018 Tobacco Nicotine Use: 10 or more cigarettes (1/2 pack or more)/day in last 30 days. Type: Cigarettes. Number of years: 47., 09/01/2023 Family History COPD: Mother. Respiratory disease: Father. Health Status Family Member(s) Immunizations diphtheria/tetanus/pertussis (DTaP) ped: 0 unknown unit (08/14/14) pneumococcal 13-valent conjugate vaccine: 0.5 unknown unit (03/09/19) pneumococcal 23-valent vaccine(Pneumovax: 0 unknown unit (04/11/02) pneumococcal 23-valent vaccine(Pneumovax: 0 unknown unit (03/10/02) SARS-CoV-2 (COVID-19) mRNA-1273 vaccine: 0.25 unknown unit (02/12/21) SARS-CoV-2 (COVID-19) mRNA-1273 vaccine: 0.5 unknown unit (07/26/20) SARS-CoV-2 (COVID-19) mRNA-1273 vaccine: 0.5 unknown unit (06/28/20) tetanus/diphth/pertuss (Tdap) adult/adol: 0.5 mL (08/14/14) zoster vaccine, inactivated: 1 unknown unit (08/19/20) zoster vaccine, inactivated: 1 unknown unit (04/18/20) Code Status Code Status - Ordered -- 05/20/24 2:00:00 EST, Full Code, Constant Order Will need confirmed with patient in the a.m. Daughter states patient has living will and believes patient is DNR and would not want heroic measures but wishes for us to speak to the patient to confirm. Digitally Signed by DANIELLA HERNANDEZ on 05/20/2024 02:43 PM Digitally Signed by DANIELLA HERNANDEZ on 05/20/2024 02:52 PM [facility]02-09-2025 Evaluation + Plan noteExtracted from: Title:History and Physical Author:DANIELLA HERNANDEZ Date:05/20/24 1. CHF exacerbation Acute, new onset. Echo done on 05/16 demonstrated EF 40-45% and Grade II diastolic dysfunction. Continue furosemide 40 mg IV daily. Consult placed to cardiology for recommendation. Repeat BMP and BNP in am. 2. Atrial fibrillation New onset of atrial fibrillation with RVR on 05/13. Patient is s/p cardioversion x 3, all 3 unsuccessful. Continue Amiodarone and metoprolol at current dose. Will consult cardiology for recommendation. 3. Chronic renal failure, stage 3 (moderate) Chronic. Creatinine baseline 0.96-1.06 prior to admission on 05/13 - up to 1.23 this am. Monitor closely while IV diuresis. Repeat BMP in am. 4. HTN (hypertension) Chronic. Continue current antihypertensives. SBP goal of 140 or less. DVT prophylaxis with eliquis. Code status: Full Code. Labs, diagnostic test and progress notes reviewed as noted in HPI. Plan of care discussed with patient. All questions answered. Patient verbalizes understanding and is agreeable with plan of care. This case was discussed with collaborating physician, Dr. Rylan Rodriguez. 77 minutes spent reviewing past diagnostic tests, reviewing lab results, vital sign trends, medical history, reviewing medications and ordering home medications, examining patient, discussed plan of care with care team, collaborating with physician, and documenting in chart. Future Appointments Appointment Date:06/13/2024 02:45:00 PM Scheduled Provider:KIMBERLY AGUILAR Location:[facility] Appointment Type:CV OV Hospital Follow Up Appointment Date:07/19/2024 03:30:00 PM Scheduled Provider:EMILIANO LEAL DO Location:[facility] Appointment Type:PC OV Future Scheduled Tests Laboratory* Basic Metabolic Panel 05/17/24 * Calcium Level Ionized 05/17/24 * PTH, Intact 05/17/24 Radiology* MA Mammo Diagnostic Right w/ Brian 11/23/23 * US Breast Right Limited 11/23/23 [facility] 02-09-2025 Nurse Progress note 2019 Patient hit call light. When i entered the room she was sitting at the side of the bed saying ''I can't breathe''. I checked her oxygen saturation she was 81% on 2L. Oxygen increased to 4L and Inotified her primary care nurse Natalie ENCINAS. Ruddy SEQUEIRA RN Digitally Signed by CE Sequeira on 05/20/2024 12:43 AM [facility]02-09-2025 Note Date of Service 05/20/2024 Interval cross coverage note. CC: Acute respiratory failure concern for flash pulmonary edema. 73-year-old female with significant past medical history of hypertension, chronic kidney disease stage III, atrial fibrillation, heart failure with reduced ejection fraction (40 to 45%) that initially was admitted to [facility] CCU on 05/13/2024 with new onset atrial fibrillation with RVR, new onset heart failure, and NSTEMI. Patient was treated medically and underwent cardioversion x 3 with the last attempt successful while on IV amiodarone. Patient was medically optimized and discharged to [facility] TCU on 05/18/2024. This evening I was contacted by nursing staff that the patient was attempting to get up to go to the bathroom when she became acutely short of breath with increased workload of breathing, respiratoryrate in the 30s with significant hypoxia with saturations of 81% on room air. She was noted to be profusely diaphoretic, hypertensive with a blood pressure of 227/119. Patient was assisted back to bed and supplemental O2 was applied, per nursing, lungs sounded wet with concern for flash pulmonaryedema. Despite supplemental O2, the patient remained tachypneic with increased workload of breathing. Patient was placed on BiPAP, IV access was established, and she was given 40 mg of IV Lasix and 1 inch of topical nitropaste due to concern for flash pulmonary edema. EKG obtained demonstrates atrial fibrillation with fluctuating heart rate in the 110 to 130s. Screening labs shows a white count of 14,000, likely reactive with no significant anemia or thrombocytopenia. BUN 28, creatinine 1.16, glucose 198 otherwise chemistry unremarkable. proBNP at 18,271 (previous BNP on 05/13/2024 12,375), troponin elevated at 141 likely related to supply demand mismatch. (Prior troponin on 05/13 and 05/14: 207 and 133). Portable chest x-ray shows findings consistent with pulmonary edema. After medical interventions patient was re-evaluated, and has diuresed over 400 mL of clear yellow urine. Her vital signs and workload of breathing are improving with most recent blood pressure 156/81, heart rate 110, respiratory rate 24, pulse oximetry 97% on BiPAP 14/8 and 40% FiO2. Patient discharged from TCU and admitted to [facility] inpatient with telemetry monitoring due to flash pulmonary edema with acute hypoxic respiratory failure and atrial fibrillation. Patient will require at least a 2 midnight stay due to increased risk fort further deterioration due to age and chronic comorbidities and medical optimization for acute heart failure exacerbation with reduced ejection fraction and paroxysmal atrial fibrillation utilizing IV diuretics, weaning of NIPPV, and possible cardiology consultation. Patient's daughter Natalie Elizabeth was notified via telephone at [phone]. She was updated on the acute change in her mother's status and the plan to discharge her from TCU and admit her to inpatient status at [facility] for further medical management. Will attempt to manage patient at [facility], however if she continues to decompensate or does not appropriately respond to therapy she may require transfer to [facility] for additional resources not available at [facility]. Questions answered and daughter is amenable to the plan of care. Digitally Signed by RHINA FALCON on 05/20/2024 02:47 AM [facility]02-09-2025 Note* Exam Date Time Procedure Performing Provider Status 05/20/24 12:05 AM XR Chest 1 View DOMENIC MENEZES MD; Auth (Verified) [id number] ORIGINAL EXAMINATION: ONE XRAY VIEW OF THE CHEST 05/20/2024 12:06 am COMPARISON: Chest x-ray on 05/13/2024 HISTORY: ORDERING SYSTEM PROVIDED HISTORY: Reason for Exam: SOB FINDINGS: Mild cardiomegaly is unchanged. There is moderate pulmonary edema that has increased compared with chest x-ray on 05/13/2024. Small bilateral pleural effusions are present. There is no pneumothorax. There is no acute skeletal abnormality. IMPRESSION: Moderate pulmonary edema with small bilateral pleural effusions. Interpreted by: Domenic Menezes MD Preliminary Report By: Domenic Menezes MD Electronically signed By Domeinc Menezes MD Dictated Date: 05/20/2024 12:10:11 AM Prelim Date: 05/20/2024 12:11:45 AM Sign Date: 05/20/2024 12:11:45 AM Ordering Provider: [facility]02-08-2025 Evaluation + Plan noteExtracted from: Title:History and Physical Author:DANIELLA HERNANDEZ RADIATION ENGINEER-FINE [employer]S CHAIR Date:05/19/24 1. Asthenia Consult placed to PT and OT to evaluate and treat. knockdown worker consulted for discharge planning. 2. HTN (hypertension) Chronic. Continue current antihypertensives. SBP goal of 140 or less. 3. Chronic renal failure, stage 3 (moderate) Chronic. Baseline creatinine 0.9 - 1.05. Mildly elevated yesterday likely due to diuresis, 1.29. Repeat BMP on 05/23. 4. Atrial fibrillation, transient New onset on 05/13, s/p cardioversion x 3. Continue Amiodarone 400 mg PO BID x 7 days and then start Amiodarone 200 mg PO daily. Patient to follow-up with cardiology in 4 weeks and have repeat echo in 3 months. Heart rate regular this morning. 5. Heart failure with reduced ejection fraction Echo on 05/16 revealed EF 40-45%, Grade II diastolic dysfunction. Continue furosemide 40 mg PO daily. Repeat echo in 3 months. DVT prophylaxis with eliquis. Code status: Full Code. Labs, diagnostic test and progress notes reviewed as noted in HPI. Plan of care discussed with patient. All questions answered. Patient verbalizes understanding and is agreeable with plan of care. This case was discussed with collaborating physician, Dr. Jarek Musa. 52 minutes spent reviewing past diagnostic tests, reviewing lab results, vital sign trends, medical history, reviewing medications and ordering home medications, examining patient, discussed plan of care with care team, collaborating with physician, and documenting in chart. CPT#73674 Future Appointments Appointment Date:06/13/2024 02:45:00 PM Scheduled Provider:KIMBERLY AGUILAR Location:[facility] Appointment Type:CV OV Hospital Follow Up Appointment Date:07/19/2024 03:30:00 PM Scheduled Provider:EMILIANO LEAL DO Location:[facility] Appointment Type:PC OV Future Scheduled Tests Laboratory* Basic Metabolic Panel 05/17/24 * Calcium Level Ionized 05/17/24 * PTH, Intact 05/17/24 Radiology* MA Mammo Diagnostic Right w/ Brian 11/23/23 * US Breast Right Limited 11/23/23 [facility] 02-08-2025 Note Date of Service 05/19/2024 Chief Complaint weakness History of Present Illness Patient is an 83-year-old female, who follows with Dr. Emiliano Leal with a past medical history significant for hypertension, chronic kidney disease stage 3, atrial fibrillation and heart failure with reduced EF 40-45%, presented to [facility] emergency department with chief complaint of shortness of breath on 05/13/2024. Patient was transferred to [facility] CCU with new onset atrial fibrillation with RVR, probable new onset congestive heart failure and NSTEMI.Patient was started on IV diltiazem, IV heparin and IV lasix on arrival. During her stay, she reports that she was cardioverted three times with the last attempt successful while on IV amiodarone. She also had an echocardiogram which revealed EF 40-45%, Grade II diastolic dysfunction, and an RVSP 41. Patient's medications were adjusted while hospitalized for good rate control. Patient was seen byPT and OT while admitted with the recommendation for skilled stay. Patient was medically optimized for discharge to [facility] TCU last evening. Patient seen and evaluated this morning while resting in bed. She states that she is doing well andjust wants to go home. Patient advised that therapy will evaluate her this morning. Patient advisedthat therapy does not keep anyone longer than is necessary for them to be safe at home. She is on supplemental oxygen this morning and reports that nursing was putting her on oxygen at night while inthe CCU. Patient advised that we will work to wean her off of oxygen before she discharges home. Patient denies any fever, chills, cough, shortness of breath, chest pain, abdominal pain, nausea or dysuria. All questions answered. Review of Systems Review of Systems: Reviewed in detail, including general health, HEENT, cardiovascular, respiratory, gastrointestinal, genitourinary, endocrine, musculoskeletal, neurologic, vascular, skin, and psychiatric. All are negative except for those listed in the History of Present Illness. Physical Exam Vitals and Measurements T: 36.7 C (Oral) TMIN: 36.7 C (Oral) TMAX: 36.8 C (Oral) HR: 58 RR: 20 BP: 161/74 SpO2: 92% HT: 160.0 cm WT: 62.8 kg BMI: 24.61 Weight Current Weight Dosing Weight: 63 kg (05/18/24) Current Weight: 62.8 kg (05/19/24) General: No acute distress. Patient is alert, chronically ill-appearing . Skin: No rash. Skin is warm, dry and intact. HEENT: Head is normocephalic, atraumatic. Pupils are equal, round and reactive. Neck: Supple. No lymphadenopathy, thyromegaly. Lungs: Bilaterally clear but diminished without crepitation or wheeze. Unlabored. Heart: Heart is regular rhythm, S1, S2. No murmurs, gallops or rubs. Abdomen: Abdomen is soft, nontender. Bowels sounds present in all quadrants. Extremities: No clubbing, cyanosis, or edema. Peripheral pulses palpable. No calf tenderness. Neurological: Patient is awake and alert to person, place and time. Following simple commands, moving all extremities. Lab Results No 36 Hour Lab Data Assessment/Plan 1. Asthenia Consult placed to PT and OT to evaluate and treat. knockdown worker consulted for discharge planning. 2. HTN (hypertension) Chronic. Continue current antihypertensives. SBP goal of 140 or less. 3. Chronic renal failure, stage 3 (moderate) Chronic. Baseline creatinine 0.9 - 1.05. Mildly elevated yesterday likely due to diuresis, 1.29. Repeat BMP on 05/23. 4. Atrial fibrillation, transient New onset on 05/13, s/p cardioversion x 3. Continue Amiodarone 400 mg PO BID x 7 days and then start Amiodarone 200 mg PO daily. Patient to follow-up with cardiology in 4 weeks and have repeat echo in 3 months. Heart rate regular this morning. 5. Heart failure with reduced ejection fraction Echo on 05/16 revealed EF 40-45%, Grade II diastolic dysfunction. Continue furosemide 40 mg PO daily.Repeat echo in 3 months. DVT prophylaxis with eliquis. Code status: Full Code. Labs, diagnostic test and progress notes reviewed as noted in HPI. Plan of care discussed with patient. All questions answered. Patient verbalizes understanding and is agreeable with plan of care. This case was discussed with collaborating physician, Dr. Jarek Musa. 52 minutes spent reviewing past diagnostic tests, reviewing lab results, vital sign trends, medicalhistory, reviewing medications and ordering home medications, examining patient, discussed plan of care with care team, collaborating with physician, and documenting in chart. CPT#13267 Problem List/Past Medical History Ongoing Chronic renal failure, stage 3 (moderate) HTN (hypertension) Osteoporosis Serum calcium elevated Historical Acute bronchitis due to infection DDD (degenerative disc disease), lumbar Hypercalcemia Microalbuminuria Neck pain on right side Proteinuria of undiagnosed cause Sciatica Procedure/Surgical History Colonoscopy and biopsy of colon: 11/02/19 Colonoscopy: 04/11/11 Appendectomy Cholecystectomy Abdominal hysterectomy Medications Home Medications (6) Active amiodarone 200 mg oral tablet 400 mg = 2 tab(s), Oral, BIDM amiodarone 200 mg oral tablet 200 mg = 1 tab(s), Oral, qDay Eliquis 5 mg oral tablet 5 mg = 1 tab(s), Oral, BID Lasix 40 mg oral tablet 40 mg = 1 tab(s), Oral, qDay Prolia 60 mg/mL subcutaneous solution 60 mg = 1 mL, Subcutaneous, q6mo Toprol-XL 50 mg oral tablet, extended release 50 mg = 1 tab(s), Oral, BIDM Allergies alendronate (Moderate) Myalgia amLODIPine (Mild) Edema Periactin Numbness Social History Smoking Status - 03/04/2017 Current every day smoker Alcohol - Denies Alcohol Use, 03/04/2017 Use: Never., 12/04/2018 Employment/School Status: Retired., 12/04/2018 Exercise Home/Environment None Domestic Concerns:. Living situation: Home/Independent. Single level home Lives In:., 12/04/2018 Nutrition/Health Type of diet: Regular. Caffeine intake amount: 3 servings a day. Appetite Good. Eating DifficultiesNone., 02/23/2024 Substance Abuse - Denies Substance Abuse, 03/04/2017 Use: Never., 12/04/2018 Tobacco Nicotine Use: 10 or more cigarettes (1/2 pack or more)/day in last 30 days. Type: Cigarettes. Number of years: 47., 09/01/2023 Family History COPD: Mother. Respiratory disease: Father. Health Status Family Member(s) Immunizations diphtheria/tetanus/pertussis (DTaP) ped: 0 unknown unit (08/14/14) pneumococcal 13-valent conjugate vaccine: 0.5 unknown unit (03/09/19) pneumococcal 23-valent vaccine(Pneumovax: 0 unknown unit (04/11/02) pneumococcal 23-valent vaccine(Pneumovax: 0 unknown unit (03/10/02) SARS-CoV-2 (COVID-19) mRNA-1273 vaccine: 0.25 unknown unit (02/12/21) SARS-CoV-2 (COVID-19) mRNA-1273 vaccine: 0.5 unknown unit (07/26/20) SARS-CoV-2 (COVID-19) mRNA-1273 vaccine: 0.5 unknown unit (06/28/20) tetanus/diphth/pertuss (Tdap) adult/adol: 0.5 mL (08/14/14) zoster vaccine, inactivated: 1 unknown unit (08/19/20) zoster vaccine, inactivated: 1 unknown unit (04/18/20) Code Status Code Status - Ordered -- 05/18/24 19:32:00 EST, Full Code, Constant Order Digitally Signed by DANIELLA HERNANDEZ on 05/19/2024 12:28 PM [facility]02-07-2025 Hospital Discharge instructions Patient Education 05/18/2024 14:44:35 Electrical Cardioversion, Care After Electrical Cardioversion, Care After This sheet gives you information about how to care for yourself after your procedure. Your health care provider may also give you more specific instructions. If you have problems or questions, contact your health care provider. What can I expect after the procedure? After the procedure, it is common to have: Some redness on the skin where the shocks were given. Follow these instructions at home: Do not drive for 24 hours if you were given a medicine to help you relax (sedative). Take [id number] and prescription medicines only as told by your health care provider. Ask your health care provider how to check your pulse. Check it often. Rest for 48 hours after the procedure or as told by your health care provider. Avoid or limit your caffeine use as told by your health care provider. Contact a health care provider if: You feel like your heart is beating too quickly or your pulse is not regular. You have a serious muscle cramp that does not go away. Get help right away if: You have discomfort in your chest. You are dizzy or you feel faint. You have trouble breathing or you are short of breath. Your speech is slurred. You have trouble moving an arm or leg on one side of your body. Your fingers or toes turn cold or blue. This information is not intended to replace advice given to you by your health care provider. Make sure you discuss any questions you have with your health care provider. Document Released: 01/16/2014 Document Revised: 03/10/2018 Document Reviewed: 10/01/2016 [employer] Patient Education 2020 [employer]. Follow Up Care 05/13/2024 14:21:07 With:[facility]- Room 237, nurse to nurse [phone]. Address:Unknown When:1-2 days With:EMILIANO LEAL Address: [address] [place] [address]- [phone] Business (1) When:1-2 days Comments:Please call the office to schedule a hospital follow up appointment With:ABHIJEET AGUILAR MD Address: [address] [facility] [place] [address]- [phone] When:06/13/2024 14:45:00 With:Readmission Risk Score Address:Unknown When: Unknown Comments:11 [facility] 02-07-2025 Note Discharge Instructions Thank you for allowing [facility] to assist you with your healthcare needs. The following is importantdischarge information regarding your hospital visit. Your Care Team EMILIANO LEAL DO Your Diagnosis Afib Atrial fibrillation What to do next Instructions From Your Doctor 1. Kindly follow up with your Primary Care Physician and Volleyball Coach as recommended. _ 2. Please take Amiodarone 400 mg (2 tablets) twice a day for 7 days, then switch to Amiodarone 200 mg (1 tablet) once a day. 3. Some of your medications may have changed during this hospital stay. Please go over these changes with your nurse before you leave the hospital. _ 4. Take all your medications as prescribed. If you have any queries, please reach out to our [facility] office at [phone] for general queries and [phone] for medication refills. 5. All your medical records and results are available to you through our [facility] Patient Portal. Tosign up, please visit [email or web address] Scheduled Follow-Up Appointments Appointment Type When With Where Contact Information StatusCV OV Hospital Follow Up 06/13/2024 02:45 PM EST [facility] 07/19/2024 03:30 PM EDT EMILIANO LEAL DO [address] [id number] Confirmed Follow Up Appointments Follow Up with EMILIANO LEAL When:Within 1-2 days Where:[address] [place] [address]- [phone] Business (1) Additional Information: Please call the office to schedule a hospital follow up appointment Follow Up with Readmission Risk Score Additional Information: 11 Follow Up with ABHIJEET AGUILAR MD When:06/13/2024 02:45 PM EST Where:[address] [place] [address]- [phone] The Following Activity and Diet Have Been Ordered for You Discharge Activity - Ordered -- NO activity restrictions, 05/18/24 14:07:00 EST Transfer of Care Activity - Ordered -- Activity As Tolerated, 05/18/24 14:26:00 EST Discharge Diet - Ordered -- No changes were made to your diet during your hospital stay. Please resume your pre hospitalization diet on discharge., 05/18/24 14:07:00 EST Transfer of Care Diet - Ordered -- Type of Diet: Regular Diet, 05/18/24 14:26:00 EST The Following Equipment Has Been Ordered for You No qualifying data available. The Following Treatments Have Been Ordered for You Discharge Labs Discharge Outpatient Labwork - Ordered -- BMP, Mag, Electrolyte follow up, follow-up within: 3-5 days, 05/18/24 14:07:00 EST Discharge Radiology No qualifying data available. Other Therapies Discharge Event Monitor Instructions - Ordered -- 05/18/24 14:07:33 EST, You have been ordered mobile outpatient telemetry. You should receive a device in the mail with further instructions. If you have not received a device within 14 days after discharge, please call [facility] at [phone]. Post Acute Orders Transfer of Care Code Status - Ordered -- Full Code, Constant Order Transfer of Care Orders Electronically Signed By - Ordered -- 05/18/24 14:26:00 EST, VICTOR MANUEL PETERSON MD Transfer of Care Oxygen Therapy - Ordered -- Oxygen (CONTINUOUS), Mobile in the Home, Nasal Cannula, 2 liters per minute, 9 month(s), 05/18/24 14:26:00 EST Transfer of Care Prognosis - Ordered -- Fair, Patient Aware: Yes Transfer of Care Rehab Potential - Ordered -- Rehab potential fair, 05/18/24 14:26:51 EST Someone Will Contact You Regarding These Home Health Referrals No home referrals have been ordered for you. No one will call you. Allergies alendronate (Moderate) Myalgia amLODIPine (Mild) Edema Periactin Numbness Medications Please ask your primary doctor or pharmacist before taking any other medication not listed, including over the counter drugs, herbal medications, vitamins and or supplements as they may interact withyour home medications. What How Much When Why Instructions Last Dose New amiodarone (amiodarone 200 mg oral tablet) 1 tab(s) by mouth Once a day Take with food. Pickup at [facility] New amiodarone (amiodarone 200 mg oral tablet) 2 tab(s) by mouth Twice daily with meals Duration: 7 Days Pickup at [facility] New apixaban (Eliquis 5 mg oral tablet) 1 tab(s) by mouth Two (2) times a day Refills: 3 Pickup at [facility] New furosemide (Lasix 40 mg oral tablet) 1 tab(s) by mouth Once a day Pickup at [facility] New metoprolol (Toprol-XL 50 mg oral tablet, extended release) 1 tab(s) by mouth Twice daily with meals Pickup at [facility] Unchanged denosumab (Prolia 60 mg/ mL subcutaneous solution) 1 Milliliter Subcutaneous Every 6 months Osteoporosis Pharmacy Information [facility]: [address], [place] [id number] [phone] What How Much When Why Comments Stop Taking bisoprolol (bisoprolol 5 mg oral tablet) 1 tab(s) by mouth Daily at bedtime HTN (hypertension) Stop Taking valsartan (valsartan 320 mg oral tablet) 1 tab(s) by mouth Once a day Replaces previous prescription for valsartan 160 mg tablets. Please take this list to your next doctor s visit. Bring all medications you take, including over the counter medications, herbals and other supplements with you to your doctor s visit. Patients and families are reminded to discard old lists and to update any records with all medication providers or retail pharmacies. Medication Leaflets apixaban (a PIX a ban) Miracle What is the most important information I should know about apixaban? Apixaban increases your risk of severe or fatal bleeding, especially if you take certain medicines at the same time (including some rxnl-old-zvdybec medicines). Tell your doctor about all medicines you have recently used. Call your doctor at once if you have signs of bleeding such as: easy bruising, unusual bleeding, unexpected pain or swelling, feeling very weak or dizzy, bleeding gums, nosebleeds, heavy menstrual bleeding, blood in your urine or stools, coughing up blood or vomit that looks like coffee grounds, orany bleeding that will not stop. Apixaban can cause a very serious blood clot around your spinal cord that can lead to long-term or permanent paralysis. This type of blood clot can occur during a spinal tap or spinal anesthesia (epidural), especially if you have a genetic spinal defect, if you use a spinal catheter, if you've had spinal surgery or repeated spinal taps, or if you use other drugs that can affect blood clotting. Get emergency medical help if you have symptoms of a spinal cord blood clot such as tingling, numbness, or muscle weakness especially in your legs and feet. Do not stop taking apixaban unless your doctor tells you to. Stopping suddenly can increase your risk of blood clot or stroke. What is apixaban? Apixaban is used to lower the risk of stroke caused by a blood clot in people with a heart rhythm disorder called atrial fibrillation. Apixaban is also used after hip or knee replacement surgery to prevent a type of blood clot called deep vein thrombosis (DVT), which can lead to blood clots in the lungs (pulmonary embolism). Apixaban is also used to treat DVT or pulmonary embolism (PE), and to lower your risk of having a repeat DVT or PE. Apixaban may also be used for purposes not listed in this medication guide. What should I discuss with my healthcare provider before taking apixaban? You should not take apixaban if you are allergic to it, or if you have active bleeding from a surgery, injury, or other cause. Apixaban may cause you to bleed more easily, especially if you have a bleeding disorder that is inherited or caused by disease. Tell your doctor if you have an artificial heart valve, or if you have ever had: bleeding problems; antiphospholipid syndrome, especially if you have a triple positive antibody test; or liver or kidney disease. Apixaban can cause a very serious blood clot around your spinal cord if you undergo a spinal tap orreceive spinal anesthesia (epidural). This type of blood clot could cause long-term paralysis, and may be more likely to occur if: you have a spinal catheter in place or if a catheter has been recently removed; you have a history of spinal surgery or repeated spinal taps; you have recently had a spinal tap or epidural anesthesia; you take aspirin or other NSAIDs (nonsteroidal anti-inflammatory drugs)--ibuprofen (Advil, Motrin),naproxen (Aleve), diclofenac, indomethacin, meloxicam, and others; or you are using other medicines to treat or prevent blood clots. Taking apixaban may increase the risk of bleeding while you are or during your delivery. Tell your doctor if you are or plan to become . Do not breastfeed. How should I take apixaban? Follow all directions on your prescription label and read all medication guides or instruction sheets. Your doctor may occasionally change your dose. Use the medicine exactly as directed. You may take apixaban with or without food. If you cannot swallow a tablet whole, crush it and mix with water, apple juice, or applesauce. Swallow the mixture right away without chewing. A crushed tablet mixture may also be given through a nasogastric (NG) feeding tube. Read and carefully follow any Instructions for Use provided with your medicine. Apixaban can make it easier for you to bleed, even from a minor injury. Seek medical attention if you have bleeding that will not stop. Tell your doctor if you have a planned surgery or dental work. You may need to stop taking apixabanfor a short time. Do not stop taking apixaban unless your doctor tells you to. If you stop taking apixaban for any reason, your doctor may prescribe another medicine to prevent blood clots. Store at room temperature away from moisture and heat. What happens if I miss a dose? Take the missed dose on the same day you remember it. Take your next dose at the regular time and stay on your twice-daily schedule. Do not take two doses at one time. Get your prescription refilled before you run out of medicine completely. What happens if I overdose? Seek emergency medical attention or call the Poison Help line at . What should I avoid while taking apixaban? Avoid activities that may increase your risk of bleeding or injury. Use extra care while shaving orbrushing your teeth. What are the possible side effects of apixaban? Get emergency medical help if you have signs of an allergic reaction: hives; chest pain, wheezing, difficult breathing; feeling light-headed; swelling of your face, lips, tongue, or throat. Also seek emergency medical attention if you have symptoms of a spinal blood clot such as tingling,numbness, or muscle weakness especially in your legs and feet. Call your doctor at once if you have: easy bruising, unusual bleeding (nose, mouth, vagina, or rectum), bleeding from wounds or needle injections, any bleeding that will not stop; heavy menstrual bleeding; headache, dizziness, weakness, feeling like you might pass out; urine that looks red, pink, or brown; or black or bloody stools, coughing up blood or vomit that looks like coffee grounds. This is not a complete list of side effects and others may occur. Call your doctor for medical advice about side effects. You may report side effects to FDA at 0-852-HYJ-0946. What other drugs will affect apixaban? Sometimes it is not safe to use certain medications at the same time. Some drugs can affect your blood levels of other drugs you take, which may increase side effects or make the medications less effective. Many other drugs (including some kntz-jci-atjvgbq medicines) can increase your risk of bleeding or blood clots. Tell your doctor about all medicines you have recently used, especially: any other medicines to treat or prevent blood clots; a blood thinner such as heparin or warfarin (Coumadin, Jantoven); an antidepressant; or aspirin or other NSAID (nonsteroidal anti-inflammatory drug) used intermediate school teacher. This list is not complete and many other drugs may affect apixaban. This includes prescription and bzqm-cei-muiwmsa medicines, vitamins, and herbal products. Not all possible drug interactions are listed here. Where can I get more information? Your pharmacist can provide more information about apixaban. Remember, keep this and all other medicines out of the reach of children, never share your medicines with others, and use this medication only for the indication prescribed. Every effort has been made to ensure that the information provided by [employer]') is accurate, up-to-date, and complete, but no guarantee is made to that effect. Drug information contained herein may be time sensitive. [employer] information has been compiled for use by healthcare practitioners and consumers in the [place] and therefore [employer] does not warrant that uses outside of the [place] are appropriate, unless specifically indicated otherwise. [employer] drug information does not endorse drugs, diagnose patients or recommend therapy. [employer] drug information isan informational resource designed to assist licensed healthcare practitioners in caring for their p atients and/or to serve consumers viewing this service as a supplement to, and not a substitute for, the expertise, skill, knowledge and judgment of healthcare practitioners. The absence of a warningfor a given drug or drug combination in no way should be construed to indicate that the drug or drug combination is safe, effective or appropriate for any given patient. [employer] does not assume any responsibility for any aspect of healthcare administered with the aid of information [employer] provides. The information contained herein is not intended to cover all possible uses, directions, precautions, warnings, drug interactions, allergic reactions, or adverse effects. If you have questions about the drugs you are taking, check with your doctor, nurse or pharmacist. Copyright 6593-1613 [employer]. Version: 6.01. Revision Date: 12/02/2020. amiodarone (oral) (A mi [place] omayra stewart) Pacerone What is the most important information I should know about amiodarone? Amiodarone is for use only in treating life-threatening heart rhythm disorders. You should not take this medicine if you are allergic to amiodarone or iodine, or if you have heartblock, a history of slow heartbeats that have caused you to faint, or if your heart cannot pump blood properly. Amiodarone can cause dangerous side effects on your heart, liver, lungs, or vision. Call your doctor or get medical help at once if you have: chest pain, fast or pounding heartbeats, trouble breathing, vision problems, upper stomach pain, vomiting, dark urine, jaundice (yellowing ofthe skin or eyes), or if you cough up blood. What is amiodarone? Amiodarone affects the rhythm of your heartbeats. Amiodarone is used to help keep the heart beating normally in people with life- threatening heart rhythm disorders of the ventricles (the lower chambers of the heart that allow blood to flow out of the heart). Amiodarone is used to treat ventricular tachycardia or ventricular fibrillation. Amiodarone is for use only in treating life-threatening heart rhythm disorders. Amiodarone may also be used for purposes not listed in this medication guide. What should I discuss with my healthcare provider before taking amiodarone? You should not use this medicine if you are allergic to amiodarone or iodine, or if you have: a serious heart condition called 'AV block' (2nd or 3rd degree), unless you have a pacemaker; a history of slow heartbeats that have caused you to faint; or if your heart cannot pump blood properly. Amiodarone can cause dangerous side effects on your heart, liver, lungs, or thyroid. Tell your doctor if you have ever had: asthma or another lung disorder; liver disease; a thyroid disorder; vision problems; high or low blood pressure; an electrolyte imbalance (such as low levels of potassium or magnesium in your blood); or if you have a pacemaker or defibrillator implanted in your chest. Taking amiodarone during may harm an unborn baby, or cause thyroid problems or abnormal heartbeats in the baby after it is born. Amiodarone may also affect the child's growth or development(speech, movement, academic skills) later in life. Tell your doctor if you are or if you become . You should not breast-feed while taking amiodarone, and for several months after stopping. Amiodarone takes a long time to clear from your body. Talk to your doctor about the best way to feed your baby during this time. How should I take amiodarone? Follow all directions on your prescription label and read all medication guides or instruction sheets. Your doctor may occasionally change your dose. Use the medicine exactly as directed. You will receive your first few doses in a hospital setting, where your heart rhythm can be monitored. If you have been taking another heart rhythm medicine, you may need to gradually stop taking it when you start using amiodarone. Follow your doctor's dosing instructions very carefully. You may take amiodarone with or without food, but take it the same way each time. It may take up to 3 weeks before your heart rhythm improves. Keep using the medicine as directed even if you feel well. Amiodarone can have long lasting effects on your body. You may need frequent medical tests while using this medicine and for several months after your last dose. If you need surgery (including laser eye surgery), tell the surgeon ahead of time that you are using amiodarone. This medicine can affect the results of certain medical tests. Tell any doctor who treats you that you are using amiodarone. Store at room temperature away from moisture, heat, and light. What happens if I miss a dose? Skip the missed dose and use your next dose at the regular time. Do not use two doses at one time. What happens if I overdose? Seek emergency medical attention or call the Poison Help line at . An overdose of amiodarone can be fatal. Overdose symptoms may include weakness, slow heart rate, feeling light-headed, or loss of consciousness. What should I avoid while taking amiodarone? Avoid driving or hazardous activity until you know how this medicine will affect you. Your reactions could be impaired. Grapefruit may interact with amiodarone and lead to unwanted side effects. Avoid the use of grapefruit products. Avoid taking an herbal supplement containing Delmont's wort. Amiodarone could make you sunburn more easily. Avoid sunlight or tanning beds. Wear protective clothing and use sunscreen (SPF 30 or higher) when you are outdoors. What are the possible side effects of amiodarone? Get emergency medical help if you have signs of an allergic reaction: hives; difficulty breathing; swelling of your face, lips, tongue, or throat. Amiodarone takes a long time to completely clear from your body. You may continue to have side effects from amiodarone after you stop using it. Call your doctor at once if you have any of these side effects, even if they occur up to several months after you stop using amiodarone: wheezing, cough, chest pain, cough with bloody mucus, fever; a new or a worsening irregular heartbeat pattern (fast, slow, or pounding heartbeats); a light-headed feeling, like you might pass out; blurred vision, seeing halos around lights (your eyes may be more sensitive to light); liver problems--nausea, vomiting, stomach pain (upper right side), tiredness, dark urine, jaundice (yellowing of the skin or eyes); nerve problems--loss of coordination, muscle weakness, uncontrolled muscle movement, or a prickly feeling in your hands or lower legs; signs of overactive thyroid--weight loss, thinning hair, feeling hot, increased sweating, tremors, feeling nervous or irritable, irregular menstrual periods, swelling in your neck (goiter); or signs of underactive thyroid--weight gain, tiredness, depression, trouble concentrating, feeling cold. Common side effects may include: nausea, vomiting, loss of appetite; or constipation. This is not a complete list of side effects and others may occur. Call your doctor for medical advice about side effects. You may report side effects to FDA at 9-644-MFX-8626. What other drugs will affect amiodarone? Sometimes it is not safe to use certain medications at the same time. Some drugs can affect your blood levels of other drugs you take, which may increase side effects or make the medications less effective. Amiodarone takes a long time to completely clear from your body. Drug interactions are possible forup to several months after you stop using amiodarone. Talk to your doctor before taking any medication during this time. Keep track of how long it has been since your last dose of amiodarone. Many drugs can affect amiodarone. This includes prescription and jfhq-rmp-rffemxl medicines, vitamins, and herbal products. Not all possible interactions are listed here. Tell your doctor about all your current medicines and any medicine you start or stop using. Where can I get more information? Your doctor or pharmacist can provide more information about amiodarone. Remember, keep this and all other medicines out of the reach of children, never share your medicines with others, and use this medication only for the indication prescribed. Every effort has been made to ensure that the information provided by [employer] is accurate, up-to-date, and complete, but no guarantee is made to that effect. Drug information contained herein may be time sensitive. [employer] information has been compiled for use by healthcare practitioners and consumers in the [place] and therefore [employer] does not warrant that uses outside of the [place] are appropriate, unless specifically indicated otherwise. [employer] drug information does not endorse drugs, diagnose patients or recommend therapy. [employer] drug information isan informational resource designed to assist licensed healthcare practitioners in caring for their p atients and/or to serve consumers viewing this service as a supplement to, and not a substitute for, the expertise, skill, knowledge and judgment of healthcare practitioners. The absence of a warningfor a given drug or drug combination in no way should be construed to indicate that the drug or drug combination is safe, effective or appropriate for any given patient. [employer] does not assume any responsibility for any aspect of healthcare administered with the aid of information [employer] provides. The information contained herein is not intended to cover all possible uses, directions, precautions, warnings, drug interactions, allergic reactions, or adverse effects. If you have questions about the drugs you are taking, check with your doctor, nurse or pharmacist. Copyright 7704-9187 [employer]. Version: 7.01. Revision Date: 02/14/2018. Education Materials Electrical Cardioversion, Care After This sheet gives you information about how to care for yourself after your procedure. Your health care provider may also give you more specific instructions. If you have problems or questions, contact your health care provider. What can I expect after the procedure? After the procedure, it is common to have: Some redness on the skin where the shocks were given. Follow these instructions at home: Do not drive for 24 hours if you were given a medicine to help you relax (sedative). Take mgkt-ukf-avrwkan and prescription medicines only as told by your health care provider. Ask your health care provider how to check your pulse. Check it often. Rest for 48 hours after the procedure or as told by your health care provider. Avoid or limit your caffeine use as told by your health care provider. Contact a health care provider if: You feel like your heart is beating too quickly or your pulse is not regular. You have a serious muscle cramp that does not go away. Get help right away if: You have discomfort in your chest. You are dizzy or you feel faint. You have trouble breathing or you are short of breath. Your speech is slurred. You have trouble moving an arm or leg on one side of your body. Your fingers or toes turn cold or blue. This information is not intended to replace advice given to you by your health care provider. Make sure you discuss any questions you have with your health care provider. Document Released: 01/16/2014 Document Revised: 03/10/2018 Document Reviewed: 10/01/2016 [employer] Patient Education 2020 [employer] Additional Information VACCINATE! IT SAVES LIVES! Members of the community who have not yet received the COVID-19 vaccine and would like to receive it can visit one of [facility] vaccine clinics. There are many vaccine clinic locations within the [facility]. For locations and available times, please visit [email or web address] It is important to note that some COVID mobile vaccine clinics are held outdoors and may be canceled in rainy or stormy conditions. To learn more about pediatric vaccinations (ages 5-11), we invite you to visit the [facility] webpage. [email or web address]/[email or web address] learn more about the COVID-19 vaccine, we invite you to visit the CDC website for a list of frequently asked questions.https://www.cdc.gov/coronavirus/2019-ncov/vaccines/faq.html [facility] Patient Portal Access Instructions: Stay connected with your healthcare team and access your personal medical information anytime with the [employer] Patient Portal. Please follow the directions below to create your [employer] account: 1.Access the email account you provided upon registration to the hospital/physician office.2.Look for an invitation email from [facility].3.Open the email and access the invitation link: AcceptInvitation to [employer].4.Fill in the required tripp to create your account. To access your account, visit [email or web address]. Click the blue button labeled Access Patient Portal and then log in with the username and password that you created in the steps above. You will be able to view your test results, lab results, a summary of your visits, upcoming appointments and more. There is also a convenient messaging option where you can send secure messages to your [employer]. In addition, you will have the ability to download any documents or summaries to your computer and/or send the information securely to a physician. Remember that your healthcare information is confidential, so carefully consider who you will allowto register on the [employer] Patient Portal for access to your information. You can also access the [employer] Patient Portal on the [facility] duke. Simply click on Patient Portal and then log into your account. If you would like to receive a full copy of your medical records, please contact the [facility] Medical Records Department by calling [phone], Tuesday through Tuesday between 8 a.m. and 4:30 p.m. HOW TO SAFELY DISPOSE OF PRESCRIPTION MEDICATIONS Please use one of the following methods to safely dispose of your unused medications. 1.Use a drug disposal kit: the drug disposal pouch allows you to safely discard your old and unuseddrugs. Ask your nurse to give you one when you are discharged.2.Visit a local take-back location: Many local pharmacies and police departments have programs that collect old and unwanted prescriptiondrugs. Call your local pharmacy or go to http://bit.cortical.io/4S7Ki1l to find one close to you.3.Make use of household items: Use cat litter or old coffee grounds to dispose medications if other options arenot available. Mix your drugs with these household products, seal them in an airtight container andthrow it into the garbage. Call [facility]: [phone] to be sure your drugs can be disposed of in this way. Some medicines may require a different approach.4.Never flush your medications down the toilet. IF YOU HAVE BEEN PRESCRIBED AN OPIOID FOR PAIN If you have been prescribed an opioid (such as hydrocodone, oxycodone or morphine), it is critical to understand the possible side effects and risks of opioid pain medications. Even when taken as directed, opioids can have several side effects including: Tolerance, meaning you might need to take more of a medication for the same pain relief. Nausea, vomiting and/or constipation. Sleepiness, dizziness, dry mouth, confusion, depression or itching. Physical dependence, meaning you have withdrawal symptoms when a medication is stopped, can develop within a few days. KNOW YOUR RESPONSIBILITIES It is important to know exactly how much and how often to take the opioid pain medications you are prescribed. Never take opioids in higher amounts or more often than prescribed. Do not combine opioids with alcohol or other drugs that cause drowsiness, such as benzodiazepines, also known as benzos, including diazepam and alprazolam, muscle relaxants or sleep aids. Never sell or share prescription opioids. This is illegal. Store opioids in a secure place and out of reach of others (including children, family, friends and visitors). The last page of this document has been signed and retained as a CHART COPY. Signatures Patient Education Materials Electrical Cardioversion, Care After Medication Leaflets apixaban, amiodarone (oral) My discharge plan and instructions have been reviewed and explained to me and I,JED SEWELL understand my current condition and have read and understand these discharge instructions. I have received a written copy of the plan/instructions. If I have questions, I am aware that I should contact my doctor. 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 due to shortness of breath. Over the last 1 week she has been experiencing more exertional shortness of breath associated with bilateral lower extremity swelling. Chest x-ray reveals pulmonary vascular congestion and left-sided pleural effusion. proBNP elevated above 12,000 with a normal creatinine, troponin x 1 was 207, patient has no chest pain. EKG shows new onsetatrial fibrillation with ventricular rates in the 130s. Attempted DCCV, but failed. Started on IV amiodarone then repeat attempted failed. Completed successful DCCV after 48 hours on IV amiodarone. Discharged with amiodarone load and oral lasix. Follow up outpatient in 4 weeks with Cardiology. Repeat echo outpatient in 3 months. 30 day event monitor. Allergies alendronate (Moderate) Myalgia amLODIPine (Mild) Edema Periactin Numbness Consults No qualifying data available. Subjective NAEO. Physical Exam Vitals and Measurements T: 36.4 C (Oral) TMIN: 36.2 C (Skin) TMAX: 36.7 C (Oral) HR: 55 (Monitored) RR: 18 BP: 158/76 SpO2:94% Weight Current Weight Dosing Weight: 65.9 kg (05/13/24) Current Weight: 69.1 kg (05/17/24) Current Weight: 63.2 kg (05/16/24) General: AAOX3, NAD HEENT: Anicteric sclera, MMM Neck: Trachea midline, no JVD appreciated CVS: RRR, normal S1/S2, no murmurs/rubs/gallops Lung: CTAB, no wheezes/rhonchi/rales Abd: Soft, NT/ND Extrem: WWP, no LE edema Skin: Warm, Intact Neuro: AAOX3, spontaneous movement of all extremities Psych: Appropriate mood & affect Code Status Code Status - Ordered -- 05/13/24 17:50:00 EST, Full Code, Constant Order Admission Date 05/13/2024 Discharge Date 05/18/2024 Patient Instructions 1. Kindly follow up with your Primary Care Physician and Volleyball Coach as recommended. _ 2. Please take Amiodarone 400 mg (2 tablets) twice a day for 7 days, then switch to Amiodarone 200 mg (1 tablet) once a day. 3. Some of your medications may have changed during this hospital stay. Please go over these changes with your nurse before you leave the hospital. _ 4. Take all your medications as prescribed. If you have any queries, please reach out to our [facility] office at [phone] for general queries and [phone] for medication refills. 5. All your medical records and results are available to you through our [facility] Patient Portal. Tosign up, please visit [email or web address]/ Medications New Prescription amiodarone (amiodarone 200 mg oral tablet)1 tab(s) by mouth once a day. Take with food.. Refills: 0. amiodarone (amiodarone 200 mg oral tablet)2 tab(s) by mouth twice daily with meals for 7 Days. Refills: 0. apixaban (Eliquis 5 mg oral tablet)1 tab(s) by mouth two (2) times a day. Refills: 3. furosemide (Lasix 40 mg oral tablet)1 tab(s) by mouth once a day. Refills: 0. metoprolol (Toprol-XL 50 mg oral tablet, extended release)1 tab(s) by mouth twice daily with meals.Refills: 0. Unchanged denosumab (Prolia 60 mg/mL subcutaneous solution)1 Milliliter Subcutaneous every 6 months. Refills:0. Discontinued bisoprolol (bisoprolol 5 mg oral tablet)1 tab(s) by mouth daily at bedtime. Refills: 0. valsartan (valsartan 320 mg oral tablet)1 tab(s) by mouth once a day. Replaces previous prescription for valsartan 160 mg tablets.. Refills: 3. Follow Up Follow Up with EMILIANO LEAL When:Within 1-2 days Where:[address] [place] [address]- [phone] Business (1) Additional Information: Please call the office to schedule a hospital follow up appointment Follow Up with Readmission Risk Score Additional Information: 11 Follow Up with ABHIJEET AGUILAR MD When:06/13/2024 02:45 PM EST Where:[address] [facility] [place] [address]- [phone] Follow Up Appointments No qualifying data available. Follow Up Labs/Studies Discharge Labs No Follow-up Labs Discharge Studies No Follow-up Studies Discharge Diet Discharge Diet - Ordered -- No changes were made to your diet during your hospital stay. Please resume your pre hospitalization diet on discharge., 05/18/24 14:07:00 EST Transfer of Care Diet - Ordered -- Type of Diet: Regular Diet, 05/18/24 14:26:00 EST Discharge Activity Discharge Activity - Ordered -- NO activity restrictions, 05/18/24 14:07:00 EST Transfer of Care Activity - Ordered -- Activity As Tolerated, 05/18/24 14:26:00 EST Condition on Discharge Fair Discharge Disposition Home Digitally Signed by GEETA BEASLEY MD on 05/18/2024 02:30 PM Digitally Signed by VICTOR MANUEL PETERSON MD [id number] Cardiology Progress note Date of Service 05/15/2024 Chief Complaint Afib with RVR Subjective No acute events overnight. Objective Vitals and Measurements T: 36.4 C (Oral) TMIN: 36.4 C (Oral) TMAX: 37 C (Oral) HR: 75 (Monitored) RR: 16 BP: 149/67 SpO2: 92% WT: 64.5 kg Intake and Output 7AM Yesterday to 7AM Today Intake and Output (Last 24 hours) Intake Oral Intake 1220.00 Administration Information 44.80 Output Urinary Catheter Output: 2350.00 Stool Count 0.00 Urine Count 2.00 Total Summary Total Intake 1264.80 Total Output 2350.00 Fluid Balance -1085.20 Physical Exam General: AAOX3, NAD HEENT: Anicteric sclera, MMM Neck: Trachea midline, JVD appreciated CVS: RRR, normal S1/S2, no murmurs/rubs/gallops Lung: CTAB, no wheezes/rhonchi/rales Abd: Soft, NT/ND Extrem: WWP, LE edema Skin: Warm, Intact Neuro: AAOX3, spontaneous movement of all extremities Psych: Appropriate mood & affect Weight Current Weight Dosing Weight: 65.9 kg (05/13/24) Current Weight: 64.5 kg (05/15/24) Medications Medications (13) Active Scheduled: (2) furosemide 40 mg/4 mL vial 80 mg 8 mL, IV Push, BID metoprolol succinate 50 mg ER tablet 50 mg 1 tab(s), Oral, BIDM Continuous: (1) heparin 25,000 unit(s) [12 unit(s)/kg/hr] + Dextrose 5% Premix Diluent 250 mL 250 mL, Intravenous, 7.91 mL/hr PRN: (10) albuterol - ipratropium 2.5 mg-0.5 mg/3 mL Inhal Germaine UD 3 mL, Inhalation, q4hRT dextrose 50% Solution Disp syringe 50 mL 12.5 gram(s) 25 mL, IV Push, AsDirected heparin 5,000 units/mL (1 mL) vial 3,954 unit(s) 0.79 mL, IV Push, q6h magnesium sulfate 4 gram(s)/100mL PMX 4 g 100 mL, IV Piggyback, AsDirected magnesium sulfate 50% (500mg/mL) 6 g 12 mL, IV Piggyback, AsDirected magnesium sulfate PMX 2 g 50 mL, IV Piggyback, AsDirected potassium chloride (PMX) 20 mEq/100 mL 20 mEq 100 mL, IV Piggyback, AsDirected potassium chloride 20 mEq ER tablet 20 mEq 1 tab(s), Oral, AsDirected potassium chloride 20 mEq ER tablet 40 mEq 2 tab(s), Oral, AsDirected potassium chloride 20 mEq ER tablet 40 mEq 2 tab(s), Oral, AsDirected Lab Results 05/15 12:30 Glucose Level: 84 Sodium Level: 137 Potassium Level: 4.2 BUN: 20.0 Creatinine Lvl (s): 1.06 05/15 04:22 WBC: 10.4 Hgb: 14.5 Hct: 42.5 Platelet: 285 Neutrophil %: 75.1 H Glucose Level: 86 Sodium Level: 138 Potassium Level: 3.7 BUN: 17.0 Creatinine Lvl (s): 0.96 05/14 04:59 WBC: 11.2 H Hgb: 14.0 Hct: 41.1 Platelet: 285 Neutrophil %: 78.9 H Glucose Level: 99 Sodium Level: 139 Potassium Level: 3.8 BUN: 15.0 Creatinine Lvl (s): 1.03 EKG Electrocardiogram (EKG) - InProcess -- 05/15/24 11:23:00 EST, Upon arrival to nursing unit, Complete by Nursing Assessment/Plan New onset atrial fibrillation with RVR [id number] 5 points Acute hypoxic respiratory failure secondary to new onset CHF Hypertension Osteoporosis Patient presents as a transfer from [facility] for evaluation of dyspnea on exertion. Found to be in new onset atrial fibrillation with RVR, also has pulmonary edema on chest x-ray. Will diurese with IV Lasix 80 mg twice daily. Increase Toprol-XL to 50 mg twice daily and IV heparin for anticoagulation. Underwent successful WARREN with DCCV. Continue IV diuresis with IV lasix 80 mg BID. Consider transition to orals tomorrow. Remains pending ECHO. Digitally Signed by GEETA BEASLEY MD on 05/15/2024 02:41 PM [id number] Cardiology procedure note Date of Service May 18, 2024 Procedure Name Direct-current cardioversion Referring Provider General cardiology Consent Informed consent was obtained by nursing and anesthesia personnel Indication AF Location CVOR Technique This an 83-year-old female with a known history of recurring persistent atrial fibrillation undergoing repeat direct-current cardioversion (for the third time this week) after amiodarone has been loaded. Patient the last 2 times was noted to have early return of atrial fibrillation. And presents again on May 18, 2024 in a fasting well-hydrated state. Presenting rhythm was atrial fibrillation at a heart rate of 88 bpm. Once a FOOD CONSULTANT ministered an IV anesthetic agent the patient was fully sedated and here posterior patch approach utilizing synchronized biphasic waveform at 120 J was successful converting the patient back to normal sinus rhythm/sinus bradycardia at a heart rate of 50 bpm. The patient tolerated the procedure well was returned to cardiac care unit bed 348 good condition. Amiodarone was reduced to 0.5 mg/min to help reduce burden of bradycardia. Continue to follow general cardiology's recommendations. Assessment/Plan Orders: amiodarone 450 mg [0.5 mg/min] + Sodium Chloride 0.9% intravenous solution 250 mL(Amiodarone for IV450 mg [0.5 mg/min] + NS 250 mL), Start: 05/18/24 10:18:00 EST, Rate: 16.67 mL/hr, 05/18/24 10:18:00 EST Complete EKG, 05/18/24 10:15:00 EST, 05/18/24 10:15:00 EST, Upon arrival to nursing unit Diet Order, 05/18/24 12:15:00 EST, Start Meal: Now, Regular, Start diet when patient tolerating sips of water without nausea, Constant Order, : N/A, : N/A Electrocardiogram(EKG), 05/18/24 10:15:00 EST, Upon arrival to nursing unit, Complete by Nursing Post Procedure Assessment, 05/18/24 10:15:00 EST, Stop Date 05/18/24 10:15:00 EST, Upon return SameDay and prn Digitally Signed by MARCELLE ROSAS on 05/18/2024 10:19 AM [id number] Anesthesiology Consult note Patient: JED SEWELL Age: 83 years Sex: Female : 1940 Associated Diagnoses: None Author: MARIA TODD DO Preoperative Information Greater than 6 hours Anesthesia history Patient's history: negative. Family's history: negative. Review of Systems Ear/Nose/Mouth/Throat: Negative except as documented in history of present illness. Respiratory: Negative except as documented in history of present illness. Cardiovascular: Negative except as documented in history of present illness, Recurrent AF for repeat DCC. Gastrointestinal: Negative except as documented in history of present illness. Genitourinary: Negative except as documented in history of present illness. Endocrine: Negative except as documented in history of present illness. Musculoskeletal: Negative except as documented in history of present illness. Integumentary: Negative except as documented in history of present illness. Neurologic: Negative except as documented in history of present illness. Health Status Allergies: Allergic Reactions (Selected) Severity Not Documented Periactin- Numbness. Nonallergic Reactions (Selected) Moderate Alendronate- Myalgia. Mild AmLODIPine- Edema., Allergies (3) ActiveSeverityReaction alendronateModerateMyalgia amLODIPineMildEdema PeriactinNumbness Current medications: (Selected) Inpatient Medications Ordered Amiodarone for IV 450 mg [1 mg/min] + NS 250 mL: 33.33 mL/hr, Intravenous Dextrose 50% IV Push: 12.5 gram(s), 25 mL, IV Push, AsDirected, PRN: Hypoglycemia DuoNeb: 3 mL, Inhalation, q4hRT, PRN: Shortness of breath or wheezing Heparin HBW CARDIAC Bolus 5000 units/mL: 3,954 unit(s), 0.79 mL, IV Push, q6h, PRN: Protocol, Weight Based Heparin Heparin for IV 25,000 unit(s) [12 unit(s)/kg/hr] + Dextrose 5% Premix Diluent 250 mL: 7.91 mL/hr, Intravenous Lasix: 40 mg, 1 tab(s), Oral, qDay Toprol-XL: 50 mg, 1 tab(s), Oral, BIDM magnesium sulfate for IV bolus: 2 g, 50 mL, 25 mL/hr, IV Piggyback, AsDirected, PRN: for Mg level 1.5-1.8 mg/dl magnesium sulfate for IV bolus: 4 g, 100 mL, 25 mL/hr, IV Piggyback, AsDirected, PRN: for Mg level 1.1-1.4 mg/dl magnesium sulfate for IV bolus: 6 g, 12 mL, 41.67 mL/hr, IV Piggyback, AsDirected, PRN: for Mg level 1 mg/dl or less potassium chloride bolus: 20 mEq, 100 mL, 50 mL/hr, IV Piggyback, AsDirected, PRN: for K+ level 2.5- 2.9 mEq/dL potassium chloride: 20 mEq, 1 tab(s), Oral, AsDirected, PRN: for K+ level 3.5 - 3.9 mEq/L potassium chloride: 40 mEq, 2 tab(s), Oral, AsDirected, PRN: for K+ level 2.5 - 2.9 mEq/dL potassium chloride: 40 mEq, 2 tab(s), Oral, AsDirected, PRN: for K+ level 3-3.4 mEq/L Suspended Lasix: 80 mg, 8 mL, IV Push, BID Prescriptions Prescribed Prolia 60 mg/mL subcutaneous solution: 60 mg, 1 mL, Subcutaneous, q6mo, 1 mL, 0 Refill(s) bisoprolol 5 mg oral tablet: 5 mg, 1 tab(s), Oral, qHS, 30 tab(s), 0 Refill(s) valsartan 320 mg oral tablet: 320 mg, 1 tab(s), Oral, qDay, Replaces previous prescription for valsartan 160 mg tablets., 90 tab(s), 3 Refill(s), Medications (14) Active Scheduled: (2) furosemide 40 mg tablet 40 mg 1 tab(s), Oral, qDay metoprolol succinate 50 mg ER tablet 50 mg 1 tab(s), Oral, BIDM Continuous: (2) amiodarone 450 mg [1 mg/min] + sodium chloride MIROSLAVA 250 mL 250 mL, Intravenous, 33.33 mL/hr heparin 25,000 unit(s) [12 unit(s)/kg/hr] + Dextrose 5% Premix Diluent 250 mL 250 mL, Intravenous, 7.91 mL/hr PRN: (10) albuterol - ipratropium 2.5 mg-0.5 mg/3 mL Inhal Germaine UD 3 mL, Inhalation, q4hRT dextrose 50% Solution Disp syringe 50 mL 12.5 gram(s) 25 mL, IV Push, AsDirected heparin 5,000 units/mL (1 mL) vial 3,954 unit(s) 0.79 mL, IV Push, q6h magnesium sulfate 4 gram(s)/100mL PMX 4 g 100 mL, IV Piggyback, AsDirected magnesium sulfate 50% (500mg/mL) 6 g 12 mL, IV Piggyback, AsDirected magnesium sulfate PMX 2 g 50 mL, IV Piggyback, AsDirected potassium chloride (PMX) 20 mEq/100 mL 20 mEq 100 mL, IV Piggyback, AsDirected potassium chloride 20 mEq ER tablet 20 mEq 1 tab(s), Oral, AsDirected potassium chloride 20 mEq ER tablet 40 mEq 2 tab(s), Oral, AsDirected potassium chloride 20 mEq ER tablet 40 mEq 2 tab(s), Oral, AsDirected Problem list: Medical Chronic renal failure, stage 3 (moderate) / SNOMED CT 816192999 / Confirmed HTN (hypertension) / SNOMED CT [id number] / Confirmed Serum calcium elevated / SNOMED CT 452566415 / Confirmed Osteoporosis / SNOMED CT [id number] / Confirmed, Active Problems (6) Chronic renal failure, stage 3 (moderate) HTN (hypertension) Osteoporosis Serum calcium elevated Shortness of breath Tobacco use Histories Past Medical History: Active HTN (hypertension) ([id number]) Resolved Sciatica (16867019): Resolved. Microalbuminuria (879098891): Resolved. DDD (degenerative disc disease), lumbar (99989138): Resolved. Neck pain on right side (892156166): Resolved. Hypercalcemia (182050878): Resolved. Proteinuria of undiagnosed cause (435707919): Resolved. Acute bronchitis due to infection (771589773): Resolved. Family History: Respiratory disease Father COPD Mother Procedure history: Colonoscopy and biopsy of colon ([id number]) on 11/02/2019 at 78 Years. Colonoscopy ([id number]) on 04/11/2011 at 70 Years. Ovarian cyst ([id number]). Appendectomy (164957653). Cholecystectomy (26992854). Abdominal hysterectomy (898885052). Social History: Social & Psychosocial Habits Alcohol 05/13/2024Risk Assessment: Denies Alcohol Use 05/13/2024 Use: Never Employment/School 04/19/2024 Status: Retired Substance Abuse 05/13/2024Risk Assessment: Denies Substance Abuse 05/13/2024 Use: Never Tobacco 05/13/2024 Tobacco Use: 10 or more cigarettes (1/ Type: Cigarettes Number of years: 47 Exercise Comment: none - 12/04/2018 11:18 - Aidee Boyer LPN Home/Environment 05/13/2024 Domestic Concerns None Living situation: Home/Independent Lives In Single level home Nutrition/Health 05/13/2024 Type of diet: Regular Caffeine intake amount: 3 servings a day Appetite Good Eating Difficulties None Physical Examination Vital Signs (last 24 hrs) Last Charted Temp Oral36.6 DegC (MAY 18 08:29) Heart Rate Xlkgch65 bpm (MAY 18 08:38) SBPH 154 mmHg (MAY 18 08:29) DBP82 mmHg (MAY 18 08:29) General: Alert and oriented. Airway: Normal temporomandibular joint mobility, Normal mouth, Normal throat, Normal neck range of motion, Trachea midline. Mallampati classification: II (soft palate, fauces, uvula visible). Head: Normocephalic. Dentition Evaluation: Intact, Own teeth, Denies loose/chipped teeth. Neck: Supple. Respiratory: Lungs are clear to auscultation. Cardiovascular: Normal rate. Heart Sounds: Normal. Gastrointestinal: Soft. Musculoskeletal Normal range of motion. Integumentary: Intact, Warm, Dry, [place]. Neurologic: Alert, Oriented. Review / Management Results review: Labs (Last four charted values) WBC 9.9(MAY 18)H 11.4(MAY 17)10.2(MAY 16)10.4(MAY 15) Hgb 14.4(MAY 18)15.1(MAY 17)14.5(MAY 16)14.5(MAY 15) Hct 41.3(MAY 18)44.2(MAY 17)42.1(MAY 16)42.5(MAY 15) Plt 273(MAY 18)283(MAY 17)275(MAY 16)285(MAY 15) Na L 135(MAY 18)L 132(MAY 17)137(MAY 05)137(MAY 15) K 3.8(MAY 18)3.8(MAY 17)3.9(MAY 16)4.2(MAY 15) CO2 H 34(MAY 18)H 37(MAY 06)H 38(MAY 05)H 34(MAY 04) Cl L 94(MAY 18)L 89(MAY 17)L 91(MAY 16)L 96(MAY 15) Cr H 1.29(MAY 18)1.15(MAY 17)H 1.22(MAY 16)1.06(MAY 15) BUN H 27.0(MAY 18)H 24.0(MAY 17)H 23.0(MAY 16)20.0(MAY 15) Glucose 95(MAY 18)99(MAY 17)93(MAY 16)84(MAY 15) Mg 1.9(MAY 18)1.9(MAY 17)1.9(MAY 16)1.9(MAY 15) Ca 9.7(MAY 18)9.9(MAY 17)9.9(MAY 16)10.0(MAY 15) PTT H 52.8(MAY 18)H 54.9(MAY 17)H 57.1(MAY 16)H 53.5(MAY 15) . Assessment and Plan [place] [employer] (ASA) physical status classification: Class IV. Anesthetic Preoperative Plan Premedication: None. Anesthetic technique: General. Induction: intravenously. Maintenance airway: Mask. Special techniques: Warming device, no Extracorporeal. Special Monitoring. Postoperative pain management: Per surgeon. Risks discussed: nausea, vomiting, headache, sore throat, dental injury, hypotension, allergic reaction, serious complications. Informed consent: signed by patient. Beta Vadim: Beta Vadim Taken Within 24 Hrs: Yes. Digitally Signed by MARIA TODD DO on 05/18/2024 10:09 AM [id number] Cardiology Progress note Date of Service 05/16/2024 Chief Complaint Afib Subjective No acute events overnight. However, went back into afib this morning, started on IV amiodarone. Will plan for DCCV tomorrow after 1 day of amiodarone load. Objective Vitals and Measurements T: 36.6 C (Oral) TMIN: 36.4 C (Oral) TMAX: 36.7 C (Oral) HR: 98 (Monitored) RR: 16 BP: 130/88 SpO2:94% WT: 63.2 kg Intake and Output 7AM Yesterday to 7AM Today Intake and Output (Last 24 hours) Intake Oral Intake 520.00 Output Urinary Catheter Output: 2260.00 Stool Count 1.00 Total Summary Total Intake 520.00 Total Output 2260.00 Fluid Balance -1740.00 Physical Exam General: AAOX3, NAD HEENT: Anicteric sclera, MMM Neck: Trachea midline, no JVD appreciated CVS: RRR, normal S1/S2, no murmurs/rubs/gallops Lung: CTAB, no wheezes/rhonchi/rales Abd: Soft, NT/ND Extrem: WWP, no LE edema Skin: Warm, Intact Neuro: AAOX3, spontaneous movement of all extremities Psych: Appropriate mood & affect Weight Current Weight Dosing Weight: 65.9 kg (05/13/24) Current Weight: 63.2 kg (05/16/24) Current Weight: 64.5 kg (05/15/24) Medications Medications (13) Active Scheduled: (1) metoprolol succinate 50 mg ER tablet 50 mg 1 tab(s), Oral, BIDM Continuous: (2) amiodarone 450 mg [0.5 mg/min] + sodium chloride MIROSLAVA 250 mL 250 mL, Intravenous, 16.67 mL/hr heparin 25,000 unit(s) [12 unit(s)/kg/hr] + Dextrose 5% Premix Diluent 250 mL 250 mL, Intravenous, 7.91 mL/hr PRN: (10) albuterol - ipratropium 2.5 mg-0.5 mg/3 mL Inhal Germaine UD 3 mL, Inhalation, q4hRT dextrose 50% Solution Disp syringe 50 mL 12.5 gram(s) 25 mL, IV Push, AsDirected heparin 5,000 units/mL (1 mL) vial 3,954 unit(s) 0.79 mL, IV Push, q6h magnesium sulfate 4 gram(s)/100mL PMX 4 g 100 mL, IV Piggyback, AsDirected magnesium sulfate 50% (500mg/mL) 6 g 12 mL, IV Piggyback, AsDirected magnesium sulfate PMX 2 g 50 mL, IV Piggyback, AsDirected potassium chloride (PMX) 20 mEq/100 mL 20 mEq 100 mL, IV Piggyback, AsDirected potassium chloride 20 mEq ER tablet 20 mEq 1 tab(s), Oral, AsDirected potassium chloride 20 mEq ER tablet 40 mEq 2 tab(s), Oral, AsDirected potassium chloride 20 mEq ER tablet 40 mEq 2 tab(s), Oral, AsDirected Lab Results 05/16 04:17 WBC: 10.2 Hgb: 14.5 Hct: 42.1 Platelet: 275 Neutrophil %: 76.1 H Glucose Level: 93 Sodium Level: 137 Potassium Level: 3.9 BUN: 23.0 H Creatinine Lvl (s): 1.22 H 05/15 12:30 Glucose Level: 84 Sodium Level: 137 Potassium Level: 4.2 BUN: 20.0 Creatinine Lvl (s): 1.06 EKG No qualifying data available. Assessment/Plan New onset atrial fibrillation with RVR [id number] 5 points Acute hypoxic respiratory failure secondary to new onset CHF Hypertension Osteoporosis Patient presents as a transfer from [facility] for evaluation of dyspnea on exertion. Found to be in new onset atrial fibrillation with RVR, also has pulmonary edema on chest x-ray. Will diurese with IV Lasix 80 mg twice daily. Increase Toprol-XL to 50 mg twice daily and IV heparin for anticoagulation. Underwent successful WARREN with DCCV. However, went back into afib this morning, started on IV amiodarone. Continued IV diuresis with IV lasix 80 mg. Transition to orals tomorrow. Echo demonstrating EF 40-45% with G2DD. Will plan for DCCV tomorrow after 1 day of amiodarone load. Digitally Signed by GEETA BEASLEY MD on 05/16/2024 04:44 PM [id number] Cardiology Progress note Date of Service 05/17/2024 Chief Complaint New onset Afib with RVR Subjective Re-attempted DCCV after 24 hours on IV amiodarone, but had early return to Afib. Increased IV amiodarone dose to 1mg/hr with 300 mg bolus, plan for DCCV again tomorrow Objective Vitals and Measurements T: 36.5 C (Skin) TMIN: 36.4 C (Skin) TMAX: 37 C (Oral) HR: 92 (Monitored) RR: 16 BP: 128/62 SpO2: 93% WT: 69.1 kg Intake and Output 7AM Yesterday to 7AM Today Intake and Output (Last 24 hours) Intake Oral Intake 912.00 Administration Information 274.90 Output Urine Voided 175.00 Urinary Catheter Output: 750.00 Stool Count 0.00 Urine Count 1.00 Diaper Count 1.00 Total Summary Total Intake 1186.90 Total Output 925.00 Fluid Balance 261.90 Physical Exam General: AAOX3, NAD HEENT: Anicteric sclera, MMM Neck: Trachea midline, no JVD appreciated CVS: irregularly irregular, normal S1/S2, no murmurs/rubs/gallops Lung: CTAB, no wheezes/rhonchi/rales Abd: Soft, NT/ND Extrem: WWP, no LE edema Skin: Warm, Intact Neuro: AAOX3, spontaneous movement of all extremities Psych: Appropriate mood & affect Weight Current Weight Dosing Weight: 65.9 kg (05/13/24) Current Weight: 69.1 kg (05/17/24) Current Weight: 63.2 kg (05/16/24) Medications Medications (14) Active Scheduled: (2) furosemide 40 mg tablet 40 mg 1 tab(s), Oral, qDay metoprolol succinate 50 mg ER tablet 50 mg 1 tab(s), Oral, BIDM Continuous: (2) amiodarone 450 mg [1 mg/min] + sodium chloride MIROSLAVA 250 mL 250 mL, Intravenous, 33.33 mL/hr heparin 25,000 unit(s) [12 unit(s)/kg/hr] + Dextrose 5% Premix Diluent 250 mL 250 mL, Intravenous, 7.91 mL/hr PRN: (10) albuterol - ipratropium 2.5 mg-0.5 mg/3 mL Inhal Germaine UD 3 mL, Inhalation, q4hRT dextrose 50% Solution Disp syringe 50 mL 12.5 gram(s) 25 mL, IV Push, AsDirected heparin 5,000 units/mL (1 mL) vial 3,954 unit(s) 0.79 mL, IV Push, q6h magnesium sulfate 4 gram(s)/100mL PMX 4 g 100 mL, IV Piggyback, AsDirected magnesium sulfate 50% (500mg/mL) 6 g 12 mL, IV Piggyback, AsDirected magnesium sulfate PMX 2 g 50 mL, IV Piggyback, AsDirected potassium chloride (PMX) 20 mEq/100 mL 20 mEq 100 mL, IV Piggyback, AsDirected potassium chloride 20 mEq ER tablet 20 mEq 1 tab(s), Oral, AsDirected potassium chloride 20 mEq ER tablet 40 mEq 2 tab(s), Oral, AsDirected potassium chloride 20 mEq ER tablet 40 mEq 2 tab(s), Oral, AsDirected Lab Results 05/17 04:00 WBC: 11.4 H Hgb: 15.1 Hct: 44.2 Platelet: 283 Neutrophil %: 77.1 H Glucose Level: 99 Sodium Level: 132 L Potassium Level: 3.8 BUN: 24.0 H Creatinine Lvl (s): 1.15 05/16 04:17 WBC: 10.2 Hgb: 14.5 Hct: 42.1 Platelet: 275 Neutrophil %: 76.1 H Glucose Level: 93 Sodium Level: 137 Potassium Level: 3.9 BUN: 23.0 H Creatinine Lvl (s): 1.22 H EKG EKG - Completed -- 05/15/24 11:23:00 EST, Upon arrival to nursing unit, Complete by Nursing Assessment/Plan New onset atrial fibrillation with RVR [id number] 5 points Acute hypoxic respiratory failure secondary to new onset CHF Hypertension Osteoporosis Patient presents as a transfer from [facility] for evaluation of dyspnea on exertion. Found to be in new onset atrial fibrillation with RVR, also has pulmonary edema on chest x-ray. Will diurese with IV Lasix 80 mg twice daily. Increase Toprol-XL to 50 mg twice daily and IV heparin for anticoagulation. Underwent successful WARREN with DCCV. However, went back into afib, started on IV amiodarone. Re-attempted after 24 hours, but had early return to Afib. Increased IV amiodarone dose to 1mg/hr with 300 mg bolus, plan for DCCV again tomorrow. Echo demonstrating EF 40-45% with G2DD. Digitally Signed by GEETA BEASLEY MD on 05/17/2024 02:49 PM [id number] Cardiology Progress note Date of Service 05/17/2024 Chief Complaint New onset Afib with RVR Subjective Re-attempted DCCV after 24 hours on IV amiodarone, but had early return to Afib. Increased IV amiodarone dose to 1mg/hr with 300 mg bolus, plan for DCCV again tomorrow Objective Vitals and Measurements T: 36.5 C (Skin) TMIN: 36.4 C (Skin) TMAX: 37 C (Oral) HR: 92 (Monitored) RR: 16 BP: 128/62 SpO2: 93% WT: 69.1 kg Intake and Output 7AM Yesterday to 7AM Today Intake and Output (Last 24 hours) Intake Oral Intake 912.00 Administration Information 274.90 Output Urine Voided 175.00 Urinary Catheter Output: 750.00 Stool Count 0.00 Urine Count 1.00 Diaper Count 1.00 Total Summary Total Intake 1186.90 Total Output 925.00 Fluid Balance 261.90 Physical Exam General: AAOX3, NAD HEENT: Anicteric sclera, MMM Neck: Trachea midline, no JVD appreciated CVS: irregularly irregular, normal S1/S2, no murmurs/rubs/gallops Lung: CTAB, no wheezes/rhonchi/rales Abd: Soft, NT/ND Extrem: WWP, no LE edema Skin: Warm, Intact Neuro: AAOX3, spontaneous movement of all extremities Psych: Appropriate mood & affect Weight Current Weight Dosing Weight: 65.9 kg (05/13/24) Current Weight: 69.1 kg (05/17/24) Current Weight: 63.2 kg (05/16/24) Medications Medications (14) Active Scheduled: (2) furosemide 40 mg tablet 40 mg 1 tab(s), Oral, qDay metoprolol succinate 50 mg ER tablet 50 mg 1 tab(s), Oral, BIDM Continuous: (2) amiodarone 450 mg [1 mg/min] + sodium chloride MIROSLAVA 250 mL 250 mL, Intravenous, 33.33 mL/hr heparin 25,000 unit(s) [12 unit(s)/kg/hr] + Dextrose 5% Premix Diluent 250 mL 250 mL, Intravenous, 7.91 mL/hr PRN: (10) albuterol - ipratropium 2.5 mg-0.5 mg/3 mL Inhal Germaine UD 3 mL, Inhalation, q4hRT dextrose 50% Solution Disp syringe 50 mL 12.5 gram(s) 25 mL, IV Push, AsDirected heparin 5,000 units/mL (1 mL) vial 3,954 unit(s) 0.79 mL, IV Push, q6h magnesium sulfate 4 gram(s)/100mL PMX 4 g 100 mL, IV Piggyback, AsDirected magnesium sulfate 50% (500mg/mL) 6 g 12 mL, IV Piggyback, AsDirected magnesium sulfate PMX 2 g 50 mL, IV Piggyback, AsDirected potassium chloride (PMX) 20 mEq/100 mL 20 mEq 100 mL, IV Piggyback, AsDirected potassium chloride 20 mEq ER tablet 20 mEq 1 tab(s), Oral, AsDirected potassium chloride 20 mEq ER tablet 40 mEq 2 tab(s), Oral, AsDirected potassium chloride 20 mEq ER tablet 40 mEq 2 tab(s), Oral, AsDirected Lab Results 05/17 04:00 WBC: 11.4 H Hgb: 15.1 Hct: 44.2 Platelet: 283 Neutrophil %: 77.1 H Glucose Level: 99 Sodium Level: 132 L Potassium Level: 3.8 BUN: 24.0 H Creatinine Lvl (s): 1.15 05/16 04:17 WBC: 10.2 Hgb: 14.5 Hct: 42.1 Platelet: 275 Neutrophil %: 76.1 H Glucose Level: 93 Sodium Level: 137 Potassium Level: 3.9 BUN: 23.0 H Creatinine Lvl (s): 1.22 H EKG EKG - Completed -- 05/15/24 11:23:00 EST, Upon arrival to nursing unit, Complete by Nursing Assessment/Plan New onset atrial fibrillation with RVR [id number] 5 points Acute hypoxic respiratory failure secondary to new onset CHF Hypertension Osteoporosis Patient presents as a transfer from [facility] for evaluation of dyspnea on exertion. Found to be in new onset atrial fibrillation with RVR, also has pulmonary edema on chest x-ray. Will diurese with IV Lasix 80 mg twice daily. Increase Toprol-XL to 50 mg twice daily and IV heparin for anticoagulation. Underwent successful WARREN with DCCV. However, went back into afib, started on IV amiodarone. Re-attempted after 24 hours, but had early return to Afib. Increased IV amiodarone dose to 1mg/hr with 300 mg bolus, plan for DCCV again tomorrow. Echo demonstrating EF 40-45% with G2DD. Digitally Signed by GEETA BEASLEY MD on 05/17/2024 02:49 PM [facility] [id number] Cardiology procedure note Date of Service May 17, 2024 Procedure Name Direct-current cardioversion Referring Provider General cardiology/EP Consent Informed consent was obtained by nursing and anesthesia personnel Indication AF Location CVOR Technique This is an 83-year-old female with a known history of recurring persistent atrial fibrillation. Undergoing direct-current cardioversion on May 15, 2024. The patient was noted to convert back to normal sinus rhythm at a heart rate of 70 bpm. However, on the floor she converted back to atrial fibrillation. Amiodarone protocol was ordered. Patient scheduled for repeat direct-current cardioversion. Patient presented for repeat direct-current cardioversion on May 17, 2024 in a fasting well-hydrated state. Presenting rhythm was A-fib/atrial flutter at a heart rate of 91 bpm. Once a [employer]OD CONSULTANT administered an IV anesthetic agent the patient was fully sedated anterior-posterior patch approach utilizing synchronized biphasic waveform at 120 J and 200 J both yield the same result of early return of atrial fibrillation. The patient is able to maintain normal sinus rhythm for approximately 15 seconds before converting back to atrial fibrillation. At this time we will increase amiodarone back to 1 mg/min and provide at 300 mg bolus. The patient will be returned to CCU bed 348. The patient tolerated the procedure well. However, she has early return of atrial fibrillation. Assessment/Plan Orders: amiodarone, Start: 05/17/24 11:00:00 EST, Dose = 300 mg, = 6 mL, IV Piggyback, Once, Stop: 05/17/2510:00:00 EST, Rate: 200 mL/hr, Infuse over: 30 minute(s), 0, 05/17/24 10:56:00 EST amiodarone 450 mg [1 mg/min] + Sodium Chloride 0.9% intravenous solution 250 mL(Amiodarone for IV 450 mg [1 mg/min] + NS 250 mL), Start: 05/17/24 10:57:00 EST, Rate: 33.33 mL/hr, 05/17/24 10:57:00 EST Digitally Signed by MARCELLE ROSAS on 05/17/2024 11:02 AM [facility] [id number] Anesthesiology Consult note Patient: JED SEWELL Age: 83 years Sex: Female : 1940 Associated Diagnoses: None Author: CARLO GLASS DO Preoperative Information Greater than 6 hours Anesthesia history Patient's history: negative. Family's history: negative. Review of Systems Ear/Nose/Mouth/Throat: Negative except as documented in history of present illness. Respiratory: Negative except as documented in history of present illness. Cardiovascular: Negative except as documented in history of present illness. Gastrointestinal: Negative except as documented in history of present illness. Genitourinary: Negative except as documented in history of present illness. Endocrine: Negative except as documented in history of present illness. Musculoskeletal: Negative except as documented in history of present illness. Integumentary: Negative except as documented in history of present illness. Neurologic: Negative except as documented in history of present illness. Health Status Allergies: Allergic Reactions (Selected) Severity Not Documented Periactin- Numbness. Nonallergic Reactions (Selected) Moderate Alendronate- Myalgia. Mild AmLODIPine- Edema., Allergies (3) ActiveSeverityReaction alendronateModerateMyalgia amLODIPineMildEdema PeriactinNumbness Current medications: (Selected) Inpatient Medications Ordered Amiodarone for IV 450 mg [0.5 mg/min] + NS 250 mL: Start: 05/16/24 16:41:00 EST, Rate: 16.67 mL/hr,05/16/24 16:41:00 EST Dextrose 50% IV Push: Start: 05/13/24 17:50:00 EST, Dose = 12.5 gram(s), = 25 mL, IV Push, AsDirected, PRN, Hypoglycemia, 05/13/24 17:50:00 EST DuoNeb: Start: 05/14/24 21:46:00 EST, Dose = 3 mL, Soln, Inhalation, q4hRT, PRN, Shortness of breath or wheezing, 0, 05/14/24 21:46:00 EST Heparin HBW CARDIAC Bolus 5000 units/mL: Start: 05/13/24 17:49:00 EST, Dose = 3,954 unit(s), = 0.79mL, IV Push, q6h, PRN, Protocol, Weight Based Heparin, 05/13/24 17:49:00 EST Heparin for IV 25,000 unit(s) [12 unit(s)/kg/hr] + Dextrose 5% Premix Diluent 250 mL: Start: 05/13/24 17:49:00 EST, Rate: 7.91 mL/hr, 05/13/24 17:49:00 EST Lasix: Start: 05/17/24 9:00:00 EST, Dose = 40 mg, = 1 tab(s), Oral, qDay, 05/17/24 9:00:00 EST Toprol-XL: Start: 05/14/24 17:00:00 EST, Dose = 50 mg, = 1 tab(s), Oral, BIDM, Hold if SBP (mmHg) < 100, Hold if HR (bpm) < 55, give with food/meal, 0, 05/14/24 10:34:00 EST magnesium sulfate for IV bolus: Start: 05/13/24 17:50:00 EST, 2 g, Dose = 50 mL, Soln, IV Piggyback, AsDirected, PRN, for Mg level 1.5-1.8 mg/dl, Rate: 25 mL/hr, Infuse over: 2 hour(s), 0, 05/13/24 17:50:00 EST magnesium sulfate for IV bolus: Start: 05/13/24 17:50:00 EST, 4 g, Dose = 100 mL, Soln, IV Piggyback, AsDirected, PRN, for Mg level 1.1-1.4 mg/dl, Rate: 25 mL/hr, Infuse over: 4 hour(s), 0, 05/13/24 17:50:00 EST magnesium sulfate for IV bolus: Start: 05/13/24 17:50:00 EST, 6 g, Dose = 12 mL, Soln, IV Piggyback, AsDirected, PRN, for Mg level 1 mg/dl or less, Rate: 41.67 mL/hr, Infuse over: 6 hour(s), 0, 05/13/24 17:50:00 EST potassium chloride bolus: Start: 05/13/24 17:50:00 EST, Dose = 20 mEq, = 100 mL, IV Piggyback, AsDirected, PRN, for K+ level 2.5 - 2.9 mEq/dL, Rate: 50 mL/hr, Infuse over: 2 hour(s), 0, 05/13/24 17:50:00 EST potassium chloride: Start: 05/13/24 17:50:00 EST, Dose = 20 mEq, = 1 tab(s), Oral, AsDirected, PRN,for K+ level 3.5 - 3.9 mEq/L, 05/13/24 17:50:00 EST potassium chloride: Start: 05/13/24 17:50:00 EST, Dose = 40 mEq, = 2 tab(s), Oral, AsDirected, PRN,for K+ level 2.5 - 2.9 mEq/dL, 05/13/24 17:50:00 EST potassium chloride: Start: 05/13/24 17:50:00 EST, Dose = 40 mEq, = 2 tab(s), Oral, AsDirected, PRN,for K+ level 3-3.4 mEq/L, 05/13/24 17:50:00 EST Suspended Lasix: Start: 05/14/24 16:00:00 EST, Dose = 80 mg, = 8 mL, IV Push, BID, Routine, Hold if SBP (mmHg) < 100, 0, 05/14/24 12:47:00 EST Prescriptions Prescribed Prolia 60 mg/mL subcutaneous solution: Dose : 60 mg = 1 mL, Subcutaneous, q6mo, # 1 mL, 0 Refill(s), Pharmacy: [facility], Osteoporosis, 158, cm, 02/23/24 10:19:00 EST, Height, kg,02/23/24 10:19:00 EST, Dosing Weight bisoprolol 5 mg oral tablet: Dose : 5 mg = 1 tab(s), Oral, qHS, # 30 tab(s), 0 Refill(s), Pharmacy:[facility], HTN (hypertension), 158, cm, 04/19/24 14:50:00 EST, Height, kg, 04/19/24 14:50:00 EST, Dosing Weight valsartan 320 mg oral tablet: Dose : 320 mg = 1 tab(s), Oral, qDay, Replaces previous prescription for valsartan 160 mg tablets., # 90 tab(s), 3 Refill(s), Pharmacy: [facility], 158, cm, 02/23/24 10:19:00 EST, Height, kg, 02/23/24 10:19:00 EST, Dosing Weight, Medications (14) Active Scheduled: (2) furosemide 40 mg tablet 40 mg 1 tab(s), Oral, qDay metoprolol succinate 50 mg ER tablet 50 mg 1 tab(s), Oral, BIDM Continuous: (2) amiodarone 450 mg [0.5 mg/min] + sodium chloride MIROSLAVA 250 mL 250 mL, Intravenous, 16.67 mL/hr heparin 25,000 unit(s) [12 unit(s)/kg/hr] + Dextrose 5% Premix Diluent 250 mL 250 mL, Intravenous, 7.91 mL/hr PRN: (10) albuterol - ipratropium 2.5 mg-0.5 mg/3 mL Inhal Germaine UD 3 mL, Inhalation, q4hRT dextrose 50% Solution Disp syringe 50 mL 12.5 gram(s) 25 mL, IV Push, AsDirected heparin 5,000 units/mL (1 mL) vial 3,954 unit(s) 0.79 mL, IV Push, q6h magnesium sulfate 4 gram(s)/100mL PMX 4 g 100 mL, IV Piggyback, AsDirected magnesium sulfate 50% (500mg/mL) 6 g 12 mL, IV Piggyback, AsDirected magnesium sulfate PMX 2 g 50 mL, IV Piggyback, AsDirected potassium chloride (PMX) 20 mEq/100 mL 20 mEq 100 mL, IV Piggyback, AsDirected potassium chloride 20 mEq ER tablet 20 mEq 1 tab(s), Oral, AsDirected potassium chloride 20 mEq ER tablet 40 mEq 2 tab(s), Oral, AsDirected potassium chloride 20 mEq ER tablet 40 mEq 2 tab(s), Oral, AsDirected Problem list: Medical Chronic renal failure, stage 3 (moderate) / SNOMED CT 081371789 / [facility] [id number] / Confirmed Serum calcium elevated / SNOMED CT 897632978 / Confirmed Osteoporosis / SNOMED CT [id number] / Confirmed, Active Problems (6) Chronic renal failure, stage 3 (moderate) HTN (hypertension) Osteoporosis Serum calcium elevated Shortness of breath Tobacco use Histories Past Medical History: Active HTN (hypertension) ([id number]) Resolved Sciatica (91188569): Resolved. Microalbuminuria (763991994): Resolved. DDD (degenerative disc disease), lumbar (11524737): Resolved. Neck pain on right side (177938651): Resolved. Hypercalcemia (801561689): Resolved. Proteinuria of undiagnosed cause (670577573): Resolved. Acute bronchitis due to infection (159178280): Resolved. Family History: Respiratory disease Father COPD Mother Procedure history: Colonoscopy and biopsy of colon ([id number]) on 11/02/2019 at 78 Years. Colonoscopy ([id number]) on 04/11/2011 at 70 Years. Ovarian cyst ([id number]). Appendectomy ([id number]). Cholecystectomy (89990168). Abdominal hysterectomy (947727183). Social History: Social & Psychosocial Habits Alcohol 05/13/2024Risk Assessment: Denies Alcohol Use 05/13/2024 Use: Never Employment/School 04/19/2024 Status: Retired Substance Abuse 05/13/2024Risk Assessment: Denies Substance Abuse 05/13/2024 Use: Never Tobacco 05/13/2024 Tobacco Use: 10 or more cigarettes (1/ Type: Cigarettes Number of years: 47 Exercise Comment: none - 12/04/2018 11:18 - Aidee Boyer LPN Home/Environment 05/13/2024 Domestic Concerns None Living situation: Home/Independent Lives In Single level home Nutrition/Health 05/13/2024 Type of diet: Regular Caffeine intake amount: 3 servings a day Appetite Good Eating Difficulties None Physical Examination General: Alert and oriented. Airway: Normal temporomandibular joint mobility, Normal mouth, Normal throat, Normal neck range of motion, Trachea midline. Mallampati classification: II (soft palate, fauces, uvula visible). Head: Normocephalic. Dentition Evaluation: Intact, Own teeth, Denies loose/chipped teeth. Neck: Supple. Respiratory: Lungs are clear to auscultation, Respirations are non-labored. Cardiovascular: Normal rate, No murmur. Heart Sounds: Normal. Gastrointestinal: Soft. Musculoskeletal Normal range of motion. Integumentary: Intact, Warm, Dry. Neurologic: Alert, Oriented. Review / Management Results review: Lab results 05/17/2024 5:32 EST potassium chloride 20 mEq mEq 05/17/2024 5:20 EST Heart Rate Monitored 113 bpm HI Oxygen Saturation 94 % 05/17/2024 5:20 EST Temperature Oral 36.7 DegC Respiratory Rate 16 br/min Systolic Blood Pressure Non-Invasive 140 mmHg Diastolic Blood Pressure Non-Invasive 80 mmHg Reason For Taking VItal Signs Routine Monitor Alarms On and Limits Checked Heart Rhythm Irregular Oxygen Therapy Nasal cannula 0L-6L Oxygen Flow Rate 4 L/min 05/17/2024 4:30 EST Heart Rate Monitored 88 bpm Oxygen Saturation 94 % 05/17/2024 4:30 EST Respiratory Rate 14 br/min Heart Rhythm Irregular Antecubital Left 05/13/2024 20 gauge Peripheral IV Activity: Assessed Peripheral IV Dressing Condition: Clean, Dry, Intact Peripheral IV Dressing Activity: Transparent dressing Peripheral IV Line Status/Patency: Continuous infusion Peripheral IV Site Condition: No complications Peripheral IV Equipment: IV Pump Forearm Left 05/16/2024 20 gauge Peripheral IV Activity: Assessed Peripheral IV Dressing Condition: Clean, Dry, Intact Peripheral IV Dressing Activity: Transparent dressing Peripheral IV Line Status/Patency: Continuous infusion Peripheral IV Site Condition: No complications Peripheral IV Equipment: IV Pump Positioning Repositions self Activity Status ADL Awake Beds/Devices Hospital bed Standard Safety Safety level maintained amiodarone 0.5 mg/min mg heparin 16 unit(s)/kg/hr unit(s) Dextrose 5% Premix Diluent Dextrose 5% Premix Diluent mL Sodium Chloride 0.9% Sodium Chloride 0.9% mL 05/17/2024 4:00 EST WBC 11.4 10^3/mcL HI RBC 5.07 10^6/mcL Hgb 15.1 G/dL Hct 44.2 % MCV 87.2 fL MCH 29.8 pg MCHC 34.2 G/dL RDW 13.0 % Platelet 283 10^3/mcL MPV 8.2 fL Neutrophil % 77.1 % HI Lymphocyte % 8.9 % LOW Monocyte % 9.9 % Eosinophil % 3.6 % Basophil % 0.5 % Neutrophil, Absolute 8.8 10^3/mcL HI Lymphocyte, Absolute 1.0 10^3/mcL Monocyte, Absolute 1.1 10^3/mcL Eosinophil, Absolute 0.4 10^3/mcL Basophil, Absolute 0.1 10^3/mcL APTT 54.9 seconds HI Glucose Level 99 mg/dL Sodium Level 132 mEq/L LOW Potassium Level 3.8 mEq/L Chloride 89 mEq/L LOW CO2 37 mEq/L HI Electrolyte Balance 6.0 mEq/L BUN 24.0 mg/dL HI Creatinine Lvl (s) 1.15 mg/dL Estimated Glomerular Filtration Rate 48 ml/min/1.73sqm NA BUN/Creatinine Ratio 20.9 ratio Calcium Lvl 9.9 mg/dL Magnesium Lvl 1.9 mg/dL Total Protein 5.9 G/dL Albumin Level 3.3 G/dL Globulin 2.6 G/dL A/G Ratio 1.3 ratio Bili Total 0.60 mg/dL Bili Direct 0.2 mg/dL Bili Indirect 0.4 mg/dL Alk Phos 95 U/L AST/SGOT 16 U/L ALT/SGPT 18 U/L Creatinine Clearance Calc 31.73 mL/min 05/17/2024 3:08 EST Telemetry Telemetry 05/17/2024 1:23 EST Standard Safety Safety level maintained, Precautions maintained High Risk Safety Room check performed 05/16/2024 23:05 EST Heart Rate Monitored 91 bpm Oxygen Saturation 91 % LOW 05/16/2024 23:05 EST Temperature Oral 37 DegC Respiratory Rate 16 br/min Systolic Blood Pressure Non-Invasive 138 mmHg Diastolic Blood Pressure Non-Invasive 84 mmHg Blood Pressure Method Manual Blood Pressure Location Right arm Blood Pressure Cuff Size Medium Reason For Taking VItal Signs Routine Primary Pain Intensity 0 Primary Pain Nonverbal Response Nods No Pain Scale Type 0-10 Pain scale Nail Bed Color [place] Capillary Refill < 2 seconds Heart Sounds ICU S1S2 Heart Rhythm Irregular Dorsalis Pedis Pulse, Left 1+ Thready Dorsalis Pedis Pulse, Right 1+ Thready Radial Pulse, Left 2+ Normal Radial Pulse, Right 2+ Normal Pedal edema Bilateral Edema Ratin+ trace/2mm Leg edema Bilateral Edema Ratin+ trace/2mm Ankle edema Bilateral Edema Ratin+ trace/2mm Cardiac Rhythm Atrial fibrillation Monitoring Lead II, V1/MCL1 QRS Duration 0.12 second(s) Alarms On and Functional Yes Heart Rate Alarm Set At - Low 50 Heart Rate Alarm Set At - High 120 Respirations Unlabored Respiratory Pattern Regular Breath Sounds Auscultated Anterior only All Lobes Breath Sounds Clear, Diminished Cough None Oxygen Therapy Nasal cannula 0L-6L Oxygen Flow Rate 4 L/min Tracheal Position Midline Abdomen Description Non-distended, Symmetric, Soft Abdomen Palpation Non-Tender Bowel Continence No bowel movement Swallowing Disorder None Bowel Sounds All Quadrants Present Tolerating Oral Intake Yes Urinary Elimination Urinary catheter draining Urine Color Yellow Urine Description Medium amount Urinary Elimination Devices External catheter External Female external catheter 05/13/2024 Urinary Catheter Activity: Assessed Urinary Catheter Site Condition: No complications Facial Movement Makes facial grimaces, Symmetric resting/crying All Extremity Description [place], Normal for ethnicity Skin Temperature Warm Temperature All Extremities Warm Skin Description [place], Normal for ethnicity, Dry Skin Integrity Pressure points intact Skin Turgor Non-Elastic Mucous Membrane Color [place] Mucous Membrane Description Moist Continuous IV Infusions HBW, AMIO Antecubital Left 05/13/2024 20 gauge Peripheral IV Activity: Assessed Peripheral IV Dressing Condition: Clean, Dry, Intact Peripheral IV Dressing Activity: Transparent dressing Peripheral IV Line Status/Patency: Continuous infusion Peripheral IV Site Condition: No complications Peripheral IV Equipment: IV Pump Forearm Left 05/16/2024 20 gauge Peripheral IV Activity: Assessed Peripheral IV Dressing Condition: Clean, Dry, Intact Peripheral IV Dressing Activity: Transparent dressing Peripheral IV Line Status/Patency: Continuous infusion Peripheral IV Site Condition: No complications Peripheral IV Equipment: IV Pump Neurological Language Able to speak clearly, Follows simple commands Neurological Symptoms Patient denies Gait Unable to assess Extremity Movement Equal Swallowing Difficulty None Characteristics of Communication Appropriate Characteristics of Speech Clear Facial Symmetry Symmetric Level of Consciousness Arousable with minimal stimulation Aspiration Risk None SEDA Yes Left Pupil Description Regular, Round Right Pupil Description Regular, Round Left Pupil Reaction Brisk Right Pupil Reaction Brisk Pupil Size, Left 3 mm Pupil Size, Right 3 mm Strength All Extremities Moderate Left Upper Extremity Sensation Intact Right Upper Extremity Sensation Intact Left Lower Extremity Sensation Intact Right Lower Extremity Sensation Intact CN V Facial Sensation Corneal reflex present, Light touch equal bilaterally CN VII Facial Expression and Symmetry Facial movement symmetrical CN VIII Hearing Spoken word equally audible left/right CN IX, X Swallowing, Gag Reflex Swallowing present Affect/Behavior Appropriate, Calm, Cooperative Orientation Oriented x 4 Orientation Assessment Oriented x 4 Positioning Repositions self Activity Status ADL Lights dimmed, Resting Beds/Devices Hospital bed Activity Assistance Supervision Standard Safety ID band on, Allergy Band on, Call device within reach, Bed in low position, Wheels locked, Upper/Half-Length side-rails up, Phone within reach, personal items within reach, Safety level maintained, Hazards removed from floor, Non-Slip footwear High Risk Safety Door open, Bathroom light on, Non-Slip footwear, Room check performed Demonstrates Correct Call Light Use Yes amiodarone 0.5 mg/min mg heparin 16 unit(s)/kg/hr unit(s) Dextrose 5% Premix Diluent Dextrose 5% Premix Diluent mL Sodium Chloride 0.9% Sodium Chloride 0.9% mL Adaptive Feeding Equipment None Eating Difficulties None 05/16/2024 22:50 EST Telemetry Telemetry 05/16/2024 19:37 EST Heart Rate Monitored 91 bpm Oxygen Saturation 95 % 05/16/2024 19:37 EST Temperature Oral 36.5 DegC Respiratory Rate 14 br/min Systolic Blood Pressure Non-Invasive 138 mmHg Diastolic Blood Pressure Non-Invasive 88 mmHg Blood Pressure Method Manual Blood Pressure Location Right arm Blood Pressure Cuff Size Medium Reason For Taking VItal Signs Routine Primary Pain Intensity 0 Primary Pain Nonverbal Response Nods No (Modified) Pain Scale Type 0-10 Pain scale Nail Bed Color [place] Capillary Refill < 2 seconds Heart Sounds ICU S1S2 Heart Rhythm Irregular Dorsalis Pedis Pulse, Left 1+ Thready Dorsalis Pedis Pulse, Right 1+ Thready Radial Pulse, Left 2+ Normal Radial Pulse, Right 2+ Normal Pedal edema Bilateral Edema Ratin+ trace/2mm Leg edema Bilateral Edema Ratin+ trace/2mm Ankle edema Bilateral Edema Ratin+ trace/2mm Cardiac Rhythm Atrial fibrillation Monitoring Lead III, V1/MCL1 QRS Duration 0.10 second(s) Alarms On and Functional Yes Heart Rate Alarm Set At - Low 50 Heart Rate Alarm Set At - High 120 Respirations Unlabored Respiratory Pattern Regular Breath Sounds Auscultated Anterior and posterior All Lobes Breath Sounds Clear, Diminished Oxygen Therapy Nasal cannula 0L-6L Oxygen Flow Rate 4 L/min Tolerating Oral Intake Yes Urinary Elimination Urinary catheter draining Urine Color Yellow Urine Description Medium amount Urinary Elimination Devices External catheter External Female external catheter 05/13/2024 Urinary Catheter Activity: Assessed Urinary Catheter Site Condition: No complications Facial Movement Makes facial grimaces, Symmetric resting/crying All Extremity Description [place], Normal for ethnicity Skin Temperature Warm Temperature All Extremities Warm Skin Description [place], Normal for ethnicity, Dry Skin Integrity Intact Skin Turgor Non-Elastic Mucous Membrane Color [place] Mucous Membrane Description Moist Continuous IV Infusions HBW/AMIO Antecubital Left 05/13/2024 20 gauge Peripheral IV Activity: Assessed Peripheral IV Dressing Condition: Clean, Dry, Intact Peripheral IV Dressing Activity: Transparent dressing Peripheral IV Line Status/Patency: Continuous infusion Peripheral IV Site Condition: No complications Peripheral IV Equipment: IV Pump Forearm Left 05/16/2024 20 gauge Peripheral IV Activity: Assessed Peripheral IV Dressing Condition: Clean, Dry, Intact Peripheral IV Dressing Activity: Transparent dressing Peripheral IV Line Status/Patency: Continuous infusion Peripheral IV Site Condition: No complications Peripheral IV Equipment: IV Pump Neurological Language Able to speak clearly, Follows simple commands Neurological Symptoms Patient denies Gait Unable to assess Extremity Movement Equal Swallowing Difficulty None Characteristics of Communication Appropriate Characteristics of Speech Clear Facial Symmetry Symmetric Level of Consciousness Alert Aspiration Risk None SEDA Yes Left Pupil Description Regular Right Pupil Description Regular, Round Left Pupil Reaction Brisk Right Pupil Reaction Brisk Pupil Size, Left 3 mm Pupil Size, Right 3 mm Strength All Extremities Moderate Left Upper Extremity Sensation Intact Right Upper Extremity Sensation Intact Left Lower Extremity Sensation Intact Right Lower Extremity Sensation Intact CN V Facial Sensation Corneal reflex present, Light touch equal bilaterally CN VII Facial Expression and Symmetry Facial movement symmetrical CN VIII Hearing Spoken word equally audible left/right CN IX, X Swallowing, Gag Reflex Swallowing present Affect/Behavior Appropriate, Calm, Cooperative Orientation Oriented x 4 Orientation Assessment Oriented x 4 Positioning Repositions self Activity Status ADL Lights dimmed, Resting Beds/Devices Hospital bed Activity Assistance Supervision Dinner Percent 80 % Standard Safety ID band on, Allergy Band on, Call device within reach, Bed in low position, Wheels locked, Upper/Half-Length side-rails up, Phone within reach, personal items within reach, Assistive devices within reach, Non-Slip footwear, Precautions maintained High Risk Safety Non-Slip footwear, Room check performed Demonstrates Correct Call Light Use Yes amiodarone 0.5 mg/min mg heparin 16 unit(s)/kg/hr unit(s) Dextrose 5% Premix Diluent Dextrose 5% Premix Diluent mL Sodium Chloride 0.9% Sodium Chloride 0.9% mL Adaptive Feeding Equipment None Appetite Good Eating Difficulties None 05/16/2024 19:28 EST Telemetry Telemetry 05/16/2024 18:10 EST Post Rehab Outcome Not Done: Not Appropriate at this Time (Not Done) Cardiac Rehab - Phase I Not Done (Not Done) 05/16/2024 17:59 EST heparin Begin Bag 2.5 mL unit(s) Dextrose 5% Premix Diluent Begin Bag 250 mL mL 05/16/2024 17:29 EST Apical Heart Rate 100 bpm amiodarone Begin Bag 9 mL mg metoprolol 50 mg mg Sodium Chloride 0.9% Begin Bag 250 mL mL 05/16/2024 16:41 EST Cardiology Progress Note Progress Note 05/16/2024 16:30 EST Heart Rate Monitored 113 bpm HI Oxygen Saturation 95 % 05/16/2024 16:30 EST Reason For Taking VItal Signs Routine Primary Pain Intensity 0 Primary Pain Nonverbal Response Nods No Pain Scale Type 0-10 Pain scale Nail Bed Color [place] Capillary Refill < 2 seconds Dorsalis Pedis Pulse, Left 1+ Thready Dorsalis Pedis Pulse, Right 1+ Thready Radial Pulse, Left 2+ Normal Radial Pulse, Right 2+ Normal Pedal edema Bilateral Edema Ratin+ trace/2mm Leg edema Bilateral Edema Ratin+ trace/2mm Ankle edema Bilateral Edema Ratin+ trace/2mm Cardiac Rhythm Atrial fibrillation Monitoring Lead III, V1/MCL1 QRS Duration 0.07 second(s) Alarms On and Functional Yes Heart Rate Alarm Set At - Low 50 Heart Rate Alarm Set At - High 120 Respirations Unlabored Respiratory Pattern Regular Breath Sounds Auscultated Anterior and posterior Left Upper Lobe Breath Sounds Clear, Diminished Left Lower Lobe Breath Sounds Fine crackles Right Upper Lobe Breath Sounds Clear, Diminished Right Middle Lobe Breath Sounds Clear, Diminished Right Lower Lobe Breath Sounds Fine crackles All Lobes Breath Sounds detailed lung assessment Cough None Oxygen Therapy Nasal cannula 0L-6L Oxygen Flow Rate 4 L/min Tracheal Position Midline Abdomen Description Non-distended, Symmetric, Soft Abdomen Palpation Non-Tender Bowel Continence No bowel movement Swallowing Disorder None Bowel Sounds All Quadrants Present Tolerating Oral Intake Yes Urinary Elimination Urinary catheter draining (Modified) Urine Color Yellow Urine Description Medium amount Urinary Elimination Devices External catheter External Female external catheter 05/13/2024 Urinary Catheter Activity: Assessed Urinary Catheter Site Condition: No complications Facial Movement Makes facial grimaces, Symmetric resting/crying All Extremity Description [place], Normal for ethnicity Skin Temperature Warm Temperature All Extremities Warm Skin Description [place], Normal for ethnicity Skin Integrity Pressure points intact Skin Turgor Non-Elastic Mucous Membrane Color [place] Mucous Membrane Description Moist Sensory Perception Jose No impairment Moisture Jose Rarely moist Activity Jose Walks occasionally Mobility Jose Slightly limited Nutrition Jose Probably inadequate Friction and Shear Jose No apparent problem Jose Score 19 Hospital Acquired Pressure Injury Risk None/minimal risk (score 19-23) Continuous IV Infusions HBW/AMIO Antecubital Left 05/13/2024 20 gauge Peripheral IV Activity: Assessed Peripheral IV Dressing Condition: Clean, Dry, Intact Peripheral IV Dressing Activity: Transparent dressing Peripheral IV Line Status/Patency: Continuous infusion Peripheral IV Site Condition: No complications Peripheral IV Equipment: IV Pump Forearm Left 05/16/2024 20 gauge Peripheral IV Activity: Assessed Peripheral IV Dressing Condition: Clean, Dry, Intact Peripheral IV Dressing Activity: Transparent dressing Peripheral IV Line Status/Patency: Continuous infusion Peripheral IV Site Condition: No complications Peripheral IV Equipment: IV Pump Neurological Language Able to speak clearly, Follows simple commands Neurological Symptoms Patient denies Gait Unable to assess Extremity Movement Equal Swallowing Difficulty None Characteristics of Communication Appropriate Characteristics of Speech Clear Facial Symmetry Symmetric Level of Consciousness Alert Aspiration Risk None Eye Opening Response Asher Spontaneously Best Motor Response Ignacia Obeys simple commands Best Verbal Response Ignacia Oriented Ignacia Coma Score 15 SEDA Yes Left Pupil Description Regular, Round Right Pupil Description Regular, Round Left Pupil Reaction Brisk Right Pupil Reaction Brisk Pupil Size, Left 3 mm Pupil Size, Right 3 mm Strength All Extremities Moderate Left Upper Extremity Sensation Intact Right Upper Extremity Sensation Intact Left Lower Extremity Sensation Intact Right Lower Extremity Sensation Intact CN V Facial Sensation Corneal reflex present, Light touch equal bilaterally CN VII Facial Expression and Symmetry Facial movement symmetrical CN VIII Hearing Spoken word equally audible left/right CN IX, X Swallowing, Gag Reflex Swallowing present Romero Screen Daily History of Fall in Last 3 Months Rmoero No Presence of Secondary Diagnosis Romero Yes Use of Ambulatory Aid Romero Crutches, cane, walker IV/PRN Adapter Fall Risk Romero Yes Gait Weak or Impaired Fall Risk Romero Normal, bedrest, immobile Mental Status Fall Risk Romero Oriented to own ability Romero Fall Risk Score 50 HI Violence Risk Confused No Violence Risk Irritable No Violence Risk Boisterous No Violence Risk Verbal Threats No Violence Risk Physical Threats No Violence Risk Attacking Objects No Violence Risk Predictor Score 0 Violence Risk Intervention None Violence Risk Current Interventions None Affect/Behavior Appropriate, Calm, Cooperative Orientation Oriented x 4 BMAT Existing Patient Condition/Safety No order for Strict Bedrest BMAT Level 1: Sit and Shake Sit, side bed/reach midline/shake hands BMAT Level 2: Stretch and Point Seated position, straighten 1 knee; Flex ankle & point toes BMAT Level 3: Stand Stand up w/o assist/Use of assist device BMAT Level 4: Walk Patient unable BMAT Mobility Level 3 Orientation Assessment Oriented x 4 Positioning Repositions self Activity Status ADL Awake, Watching TV Beds/Devices Hospital bed Activity Assistance Supervision Standard Safety ID band on, Allergy Band on, Call device within reach, Bed in low position, Wheels locked, Upper/Half-Length side-rails up, Phone within reach, personal items within reach, Non-Slip footwear, Precautions maintained High Risk Safety Door open, Bathroom light on, Non-Slip footwear, Room check performed Demonstrates Correct Call Light Use Yes heparin 16 unit(s)/kg/hr unit(s) Dextrose 5% Premix Diluent Dextrose 5% Premix Diluent mL Adaptive Feeding Equipment None Eating Difficulties None 05/16/2024 16:11 EST Temperature Oral 36.6 DegC Respiratory Rate 16 br/min Systolic Blood Pressure Non-Invasive 130 mmHg Diastolic Blood Pressure Non-Invasive 88 mmHg Blood Pressure Method Manual Blood Pressure Location Right arm Blood Pressure Cuff Size Medium Reason For Taking VItal Signs Routine Heart Sounds ICU S1S2 Heart Rhythm Irregular Oxygen Therapy Nasal cannula 0L-6L Oxygen Saturation 94 % Oxygen Flow Rate 4 L/min Positioning Repositions self Activity Status ADL Awake, Lights dimmed, Resting Beds/Devices Hospital bed Activity Assistance Supervision Standard Safety ID band on, Allergy Band on, Call device within reach, Bed in low position, Wheels locked, Upper/Half-Length side-rails up, Phone within reach, personal items within reach, Safety level maintained, Non-Slip footwear High Risk Safety Door open, Non-Slip footwear, Room check performed Demonstrates Correct Call Light Use Yes 05/16/2024 16:10 EST Heart Rate Monitored 98 bpm 05/16/2024 15:00 EST External Female external catheter 05/13/2024 Urinary Catheter Output: 300 mL Urinary Catheter Output: 200 mL Oral Intake 400 mL Oral Intake 400 mL Telemetry Telemetry 05/16/2024 14:55 EST Discharge To, Anticipated Home independently Anticipated Discharge Date 05/17/2024 Transition Planning Note Transition Planning Ongoing Assessment 05/16/2024 14:30 EST Individuals Taught Patient, Daughter Learning Readiness Willing to learn Barriers to Learning None evident Teaching Method Explanation Preferred Spoken Language [place] Preferred Written Language [place] Family/Caregiver Prefer Spoken Language [place] Family/Caregiver Prefer Written Language [place] Disease Process General Education Disease process, Signs/Symptoms to report, Signs/Symptoms of complications Teaching Evaluation Verbalizes/Nonverbally indicates understanding Medication Name(s) Educated AMIODARONE Medication Education Dose / Route / Schedule, Generic/Brand name, purpose, action Medication Teaching Evaluation Verbalizes/Nonverbally indicates understanding Pre Procedure/Surgery Education Appropriate expectations, NPO Post op Diet Education NPO Procedure/Surgical Teaching Evaluation Verbalizes/Nonverbally indicates understanding Procedure/Surgery Testing Education Other: DCC Safety Measures Education Fall prevention, Call light use, Non-slip footwear use Safety Teaching Evaluation Verbalizes/Nonverbally indicates understanding 05/16/2024 13:38 EST Education Note Student Nurse Documentation 05/16/2024 12:24 EST Echocardiogram, Adult - CV Signed 05/16/2024 11:27 EST Heart Rate Monitored 100 bpm Oxygen Saturation 92 % LOW 05/16/2024 11:27 EST Respiratory Rate 16 br/min Reason For Taking VItal Signs Routine Primary Pain Intensity 0 Primary Pain Nonverbal Response Nods No Pain Scale Type 0-10 Pain scale Monitor Alarms On and Limits Checked Nail Bed Color [place] Capillary Refill < 2 seconds Heart Sounds ICU S1S2 Heart Rhythm Irregularly irregular Dorsalis Pedis Pulse, Left 1+ Thready Dorsalis Pedis Pulse, Right 1+ Thready Radial Pulse, Left 2+ Normal Radial Pulse, Right 2+ Normal Pedal edema Bilateral Edema Ratin+ trace/2mm Leg edema Bilateral Edema Ratin+ trace/2mm Ankle edema Bilateral Edema Ratin+ trace/2mm Respirations Unlabored Respiratory Pattern Regular Breath Sounds Auscultated Anterior and posterior All Lobes Breath Sounds Diminished Cough None Oxygen Therapy Nasal cannula 0L-6L Oxygen Flow Rate 4 L/min Tracheal Position Midline Abdomen Description Non-distended Abdomen Palpation Non-Tender Bowel Continence No bowel movement Bowel Sounds All Quadrants Present Urinary Elimination Voiding, no difficulties Urine Color Yellow Urine Description Medium amount Urinary Elimination Devices External catheter External Female external catheter 05/13/2024 Urinary Catheter Activity: Assessed Urinary Catheter Site Condition: No complications All Extremity Description [place], Normal for ethnicity Skin Temperature Warm Temperature All Extremities Warm Skin Description [place], Normal for ethnicity, Dry Skin Integrity Intact Skin Turgor Non-Elastic Mucous Membrane Color [place] Mucous Membrane Description Moist Neurological Language Able to speak clearly, Follows simple commands Neurological Symptoms Weakness Characteristics of Communication Appropriate Level of Consciousness Alert Eye Opening Response Ignacia Spontaneously Best Motor Response Ignacia Obeys simple commands Best Verbal Response Asher Oriented Ignacia Coma Score 15 SEDA Yes Strength All Extremities Moderate Left Upper Extremity Sensation Intact Right Upper Extremity Sensation Intact Left Lower Extremity Sensation Intact Right Lower Extremity Sensation Intact Violence Risk Confused No Violence Risk Irritable No Violence Risk Boisterous No Violence Risk Verbal Threats No Violence Risk Physical Threats No Violence Risk Attacking Objects No Violence Risk Predictor Score 0 Violence Risk Intervention None Violence Risk Current Interventions None Orientation Oriented x 4 Nurse Safety Checks q2hrs Performed 7am-3pm Standard Safety ID band on, Allergy Band on, Call device within reach, Bed in low position, Wheels locked, Upper/Half-Length side-rails up, Phone within reach, personal items within reach, Safety level maintained High Risk Safety Room check performed Demonstrates Correct Call Light Use Yes RN Coordination of Care 7am-3pm amiodarone Begin Bag 9 mL mg heparin 16 unit(s)/kg/hr unit(s) Dextrose 5% Premix Diluent Dextrose 5% Premix Diluent mL Sodium Chloride 0.9% Begin Bag 250 mL mL 05/16/2024 11:12 EST Heart Rate Monitored 110 bpm HI Oxygen Saturation 92 % LOW 05/16/2024 11:12 EST Temperature Oral 36.7 DegC Apical Heart Rate 102 bpm HI Respiratory Rate 18 br/min Systolic Blood Pressure Non-Invasive 146 mmHg HI Diastolic Blood Pressure Non-Invasive 94 mmHg HI Blood Pressure Method Manual Blood Pressure Location Right arm Blood Pressure Cuff Size Medium Reason For Taking VItal Signs Routine Oxygen Therapy Nasal cannula 0L-6L Oxygen Flow Rate 4 L/min Positioning Repositions self Activity Status ADL Awake, Resting Beds/Devices Hospital bed Activity Assistance Supervision Standard Safety ID band on, Allergy Band on, Call device within reach, Bed in low position, Wheels locked, Upper/Half-Length side-rails up, Phone within reach, personal items within reach, Safety level maintained, Non-Slip footwear High Risk Safety Door open, Non-Slip footwear, Room check performed Demonstrates Correct Call Light Use Yes amiodarone 150 mg mg Dextrose 5% in Water 100 mL mL 05/16/2024 11:01 EST Cardiac Rhythm Atrial fibrillation, Premature ventricular contraction Monitoring Lead III, V1/MCL1 QRS Duration 0.11 second(s) Alarms On and Functional Yes Heart Rate Alarm Set At - Low 50 Heart Rate Alarm Set At - High 120 Telemetry Telemetry 05/16/2024 11:00 EST Continuous IV Infusions hbw/amio Antecubital Left 05/13/2024 20 gauge Peripheral IV Activity: Assessed Peripheral IV Dressing Condition: Clean, Dry, Intact Peripheral IV Dressing Activity: Transparent dressing Peripheral IV Line Status/Patency: Continuous infusion Peripheral IV Line Care: Alcohol port cap(s) in place, Alcohol port cap(s) changed, Secured with tape Peripheral IV Site Condition: No complications Peripheral IV Equipment: IV Pump Forearm Left 05/16/2024 20 gauge Peripheral IV Activity: Insert new site Peripheral IV Dressing Condition: Clean, Dry, Intact Peripheral IV Dressing Activity: Applied, Transparent dressing Peripheral IV Line Status/Patency: Flushes easily, 10ml normal saline flush, Good blood return Peripheral IV Line Care: Alcohol port cap(s) in place, Alcohol port cap(s) changed, Secured with tape Peripheral IV Site Condition: No complications Peripheral IV Equipment: IV Pump Peripheral IV Number of Attempts: 1 05/16/2024 10:35 EST Notify date/time 05/16/2024 10:35 Provider Notified GEETA BEASLEY MD Notification Method Phone Information Communicated Nurse communication Details Communicated patient is back in afib Person Reporting Result(s) pablo velazquez rn 05/16/2024 9:49 EST Telemetry Telemetry 05/16/2024 9:49 EST Cardiac Rhythm Atrial fibrillation Monitoring Lead III, V1/MCL1 QRS Duration 0.11 second(s) Alarms On and Functional Yes Heart Rate Alarm Set At - Low 50 Heart Rate Alarm Set At - High 120 05/16/2024 9:31 EST Post Rehab Outcome Not Done: Not Appropriate at this Time (Not Done) CAM Mental Status Change & Fluctuation No CAM Inattention No CAM Disorganized Thinking No CAM Altered Level of Consciousness No Confusion Assessment Method Score Negative Cardiac Rehab - Phase I Not Done (Not Done) 05/16/2024 8:48 EST Apical Heart Rate 74 bpm metoprolol 50 mg mg 05/16/2024 8:36 EST furosemide 80 mg mg 05/16/2024 8:13 EST Current Weight 63.2 kg Current Weight Pounds Conversion 139 lb 05/16/2024 8:02 EST Heart Rate Monitored 74 bpm Oxygen Saturation 95 % 05/16/2024 8:02 EST Systolic Blood Pressure Non-Invasive 157 mmHg HI Diastolic Blood Pressure Non-Invasive 84 mmHg Mean Arterial Pressure (NBP) 103 mmHg 05/16/2024 8:02 EST Temperature Oral 36.5 DegC Respiratory Rate 18 br/min Reason For Taking VItal Signs Routine Primary Pain Intensity 0 Primary Pain Nonverbal Response Nods No Pain Scale Type 0-10 Pain scale Monitor Alarms On and Limits Checked Nail Bed Color [place] Capillary Refill < 2 seconds Heart Sounds ICU S1S2 Heart Rhythm Irregularly irregular Dorsalis Pedis Pulse, Left 1+ Thready Dorsalis Pedis Pulse, Right 1+ Thready Radial Pulse, Left 2+ Normal Radial Pulse, Right 2+ Normal Pedal edema Bilateral Edema Ratin+ trace/2mm Leg edema Bilateral Edema Ratin+ trace/2mm Ankle edema Bilateral Edema Ratin+ trace/2mm Respirations Unlabored Respiratory Pattern Regular Breath Sounds Auscultated Anterior and posterior All Lobes Breath Sounds Fine crackles Cough None Oxygen Therapy Nasal cannula 0L-6L Oxygen Flow Rate 4 L/min Tracheal Position Midline Abdomen Description Non-distended Abdomen Palpation Non-Tender Passing Flatus Yes Bowel Continence No bowel movement Bowel Sounds All Quadrants Present Urinary Elimination Voiding, no difficulties Urine Color Yellow Urine Description Medium amount Urinary Elimination Devices External catheter External Female external catheter 05/13/2024 Urinary Catheter Activity: Assessed Urinary Catheter Site Condition: No complications Urinary Catheter Care Completed: Yes Facial Movement Makes facial grimaces All Extremity Description [place], Normal for ethnicity Skin Temperature Warm Temperature All Extremities Warm Skin Description [place], Normal for ethnicity Skin Integrity Intact Skin Turgor Non-Elastic Mucous Membrane Color [place] Mucous Membrane Description Moist Antecubital Left 05/13/2024 20 gauge Peripheral IV Activity: Assessed Peripheral IV Dressing Condition: Clean, Dry, Intact Peripheral IV Dressing Activity: Transparent dressing Peripheral IV Line Status/Patency: Continuous infusion Peripheral IV Line Care: Alcohol port cap(s) in place, Alcohol port cap(s) changed, Secured with tape Peripheral IV Site Condition: No complications Peripheral IV Equipment: IV Pump (Modified) Neurological Language Able to speak clearly, Follows simple commands Neurological Symptoms Weakness Gait Unable to assess Extremity Movement Equal Swallowing Difficulty None Characteristics of Communication Appropriate Characteristics of Speech Clear Facial Symmetry Symmetric Level of Consciousness Alert Aspiration Risk None Eye Opening Response Ignacia Spontaneously Best Motor Response Ignacia Obeys simple commands Best Verbal Response Asher Oriented Asher Coma Score 15 SEDA Yes Left Pupil Description Regular Right Pupil Description Regular Left Pupil Reaction Brisk Right Pupil Reaction Brisk Pupil Size, Left 3 mm Pupil Size, Right 3 mm Strength All Extremities Moderate Left Upper Extremity Sensation Intact Right Upper Extremity Sensation Intact Left Lower Extremity Sensation Intact Right Lower Extremity Sensation Intact CN VII Facial Expression and Symmetry Facial movement symmetrical CN VIII Hearing Spoken word equally audible left/right CN IX, X Swallowing, Gag Reflex Swallowing present Violence Risk Confused No Violence Risk Irritable No Violence Risk Boisterous No Violence Risk Verbal Threats No Violence Risk Physical Threats No Violence Risk Attacking Objects No Violence Risk Predictor Score 0 Violence Risk Intervention None Violence Risk Current Interventions None Affect/Behavior Appropriate, Calm, Cooperative Orientation Oriented x 4 Orientation Assessment Oriented x 4 Positioning Repositions self Mobility Assistance Level Supervision Activity Status ADL Awake Beds/Devices Hospital bed Activity Assistance Supervision Nurse Safety Checks q2hrs Performed 7am-3pm Standard Safety ID band on, Allergy Band on, Call device within reach, Bed in low position, Wheels locked, Upper/Half-Length side-rails up, Phone within reach, personal items within reach, Safety level maintained High Risk Safety Room check performed Demonstrates Correct Call Light Use Yes RN Coordination of Care 7am-3pm heparin 16 unit(s)/kg/hr unit(s) Dextrose 5% Premix Diluent Dextrose 5% Premix Diluent mL Appetite Good Eating Difficulties None 05/16/2024 7:39 EST Oxygen Saturation 93 % 05/16/2024 7:39 EST Temperature Oral 36.4 DegC Apical Heart Rate 74 bpm Peripheral Pulse Rate 76 bpm Heart Rate Monitored 76 bpm Respiratory Rate 16 br/min Systolic Blood Pressure Non-Invasive 132 mmHg Diastolic Blood Pressure Non-Invasive 76 mmHg Blood Pressure Method Manual Blood Pressure Location Right arm Blood Pressure Cuff Size Small Reason For Taking VItal Signs Routine Primary Pain Intensity 0 Primary Pain Nonverbal Response Nods No Pain Scale Type 0-10 Pain scale Monitor Alarms On and Limits Checked Nail Bed Color [place] Capillary Refill < 2 seconds Heart Sounds ICU S1S2 Heart Rhythm Regular Dorsalis Pedis Pulse, Left 1+ Thready Dorsalis Pedis Pulse, Right 1+ Thready Posttibial Pulse, Left 1+ Thready Posttibial Pulse, Right 1+ Thready Radial Pulse, Left 2+ Normal Radial Pulse, Right 2+ Normal Pedal edema Bilateral Edema Ratin+ trace/2mm Leg edema Bilateral Edema Ratin+ trace/2mm Ankle edema Bilateral Edema Ratin+ trace/2mm Respirations Unlabored Respiratory Pattern Regular Breath Sounds Auscultated Anterior and posterior All Lobes Breath Sounds Clear, Diminished, Equal Cough None Oxygen Therapy Nasal cannula 0L-6L Oxygen Flow Rate 4 L/min Tracheal Position Midline Abdomen Description Non-distended, Symmetric, Soft Abdomen Palpation Non-Tender Passing Flatus Yes Bowel Continence No bowel movement Swallowing Disorder None Bowel Sounds All Quadrants Present Urinary Elimination Voiding, no difficulties Urine Color Yellow Urine Description Medium amount Urinary Elimination Devices External catheter Facial Movement Makes facial grimaces All Extremity Description [place], Normal for ethnicity Skin Temperature Warm Temperature All Extremities Warm Skin Description [place], Normal for ethnicity, Dry Skin Integrity Intact Skin Turgor Non-Elastic Mucous Membrane Color [place] Mucous Membran (more content not included)... [id number] Cardiology Progress note Date of Service 05/16/2024 Chief Complaint Afib Subjective No acute events overnight. However, went back into afib this morning, started on IV amiodarone. Will plan for DCCV tomorrow after 1 day of amiodarone load. Objective Vitals and Measurements T: 36.6 C (Oral) TMIN: 36.4 C (Oral) TMAX: 36.7 C (Oral) HR: 98 (Monitored) RR: 16 BP: 130/88 SpO2:94% WT: 63.2 kg Intake and Output 7AM Yesterday to 7AM Today Intake and Output (Last 24 hours) Intake Oral Intake 520.00 Output Urinary Catheter Output: 2260.00 Stool Count 1.00 Total Summary Total Intake 520.00 Total Output 2260.00 Fluid Balance -1740.00 Physical Exam General: AAOX3, NAD HEENT: Anicteric sclera, MMM Neck: Trachea midline, no JVD appreciated CVS: RRR, normal S1/S2, no murmurs/rubs/gallops Lung: CTAB, no wheezes/rhonchi/rales Abd: Soft, NT/ND Extrem: WWP, no LE edema Skin: Warm, Intact Neuro: AAOX3, spontaneous movement of all extremities Psych: Appropriate mood & affect Weight Current Weight Dosing Weight: 65.9 kg (05/13/24) Current Weight: 63.2 kg (05/16/24) Current Weight: 64.5 kg (05/15/24) Medications Medications (13) Active Scheduled: (1) metoprolol succinate 50 mg ER tablet 50 mg 1 tab(s), Oral, BIDM Continuous: (2) amiodarone 450 mg [0.5 mg/min] + sodium chloride MIROSLAVA 250 mL 250 mL, Intravenous, 16.67 mL/hr heparin 25,000 unit(s) [12 unit(s)/kg/hr] + Dextrose 5% Premix Diluent 250 mL 250 mL, Intravenous, 7.91 mL/hr PRN: (10) albuterol - ipratropium 2.5 mg-0.5 mg/3 mL Inhal Germaine UD 3 mL, Inhalation, q4hRT dextrose 50% Solution Disp syringe 50 mL 12.5 gram(s) 25 mL, IV Push, AsDirected heparin 5,000 units/mL (1 mL) vial 3,954 unit(s) 0.79 mL, IV Push, q6h magnesium sulfate 4 gram(s)/100mL PMX 4 g 100 mL, IV Piggyback, AsDirected magnesium sulfate 50% (500mg/mL) 6 g 12 mL, IV Piggyback, AsDirected magnesium sulfate PMX 2 g 50 mL, IV Piggyback, AsDirected potassium chloride (PMX) 20 mEq/100 mL 20 mEq 100 mL, IV Piggyback, AsDirected potassium chloride 20 mEq ER tablet 20 mEq 1 tab(s), Oral, AsDirected potassium chloride 20 mEq ER tablet 40 mEq 2 tab(s), Oral, AsDirected potassium chloride 20 mEq ER tablet 40 mEq 2 tab(s), Oral, AsDirected Lab Results 05/16 04:17 WBC: 10.2 Hgb: 14.5 Hct: 42.1 Platelet: 275 Neutrophil %: 76.1 H Glucose Level: 93 Sodium Level: 137 Potassium Level: 3.9 BUN: 23.0 H Creatinine Lvl (s): 1.22 H 05/15 12:30 Glucose Level: 84 Sodium Level: 137 Potassium Level: 4.2 BUN: 20.0 Creatinine Lvl (s): 1.06 EKG No qualifying data available. Assessment/Plan New onset atrial fibrillation with RVR [id number] 5 points Acute hypoxic respiratory failure secondary to new onset CHF Hypertension Osteoporosis Patient presents as a transfer from [facility] for evaluation of dyspnea on exertion. Found to be in new onset atrial fibrillation with RVR, also has pulmonary edema on chest x-ray. Will diurese with IV Lasix 80 mg twice daily. Increase Toprol-XL to 50 mg twice daily and IV heparin for anticoagulation. Underwent successful WARREN with DCCV. However, went back into afib this morning, started on IV amiodarone. Continued IV diuresis with IV lasix 80 mg. Transition to orals tomorrow. Echo demonstrating EF 40-45% with G2DD. Will plan for DCCV tomorrow after 1 day of amiodarone load. Digitally Signed by GEETA BEASLEY MD on 05/16/2024 04:44 PM [id number] Note* Exam Date Time Procedure Performing Provider Status 05/16/24 12:24 PM Echocardiogram, Adult - CV JUSTIN MATTHEWS MD; Auth (Verified) [facility] [id number] Cardiology Progress note Date of Service 05/15/2024 Chief Complaint Afib with RVR Subjective No acute events overnight. Objective Vitals and Measurements T: 36.4 C (Oral) TMIN: 36.4 C (Oral) TMAX: 37 C (Oral) HR: 75 (Monitored) RR: 16 BP: 149/67 SpO2: 92% WT: 64.5 kg Intake and Output 7AM Yesterday to 7AM Today Intake and Output (Last 24 hours) Intake Oral Intake 1220.00 Administration Information 44.80 Output Urinary Catheter Output: 2350.00 Stool Count 0.00 Urine Count 2.00 Total Summary Total Intake 1264.80 Total Output 2350.00 Fluid Balance -1085.20 Physical Exam General: AAOX3, NAD HEENT: Anicteric sclera, MMM Neck: Trachea midline, JVD appreciated CVS: RRR, normal S1/S2, no murmurs/rubs/gallops Lung: CTAB, no wheezes/rhonchi/rales Abd: Soft, NT/ND Extrem: WWP, LE edema Skin: Warm, Intact Neuro: AAOX3, spontaneous movement of all extremities Psych: Appropriate mood & affect Weight Current Weight Dosing Weight: 65.9 kg (05/13/24) Current Weight: 64.5 kg (05/15/24) Medications Medications (13) Active Scheduled: (2) furosemide 40 mg/4 mL vial 80 mg 8 mL, IV Push, BID metoprolol succinate 50 mg ER tablet 50 mg 1 tab(s), Oral, BIDM Continuous: (1) heparin 25,000 unit(s) [12 unit(s)/kg/hr] + Dextrose 5% Premix Diluent 250 mL 250 mL, Intravenous, 7.91 mL/hr PRN: (10) albuterol - ipratropium 2.5 mg-0.5 mg/3 mL Inhal Germaine UD 3 mL, Inhalation, q4hRT dextrose 50% Solution Disp syringe 50 mL 12.5 gram(s) 25 mL, IV Push, AsDirected heparin 5,000 units/mL (1 mL) vial 3,954 unit(s) 0.79 mL, IV Push, q6h magnesium sulfate 4 gram(s)/100mL PMX 4 g 100 mL, IV Piggyback, AsDirected magnesium sulfate 50% (500mg/mL) 6 g 12 mL, IV Piggyback, AsDirected magnesium sulfate PMX 2 g 50 mL, IV Piggyback, AsDirected potassium chloride (PMX) 20 mEq/100 mL 20 mEq 100 mL, IV Piggyback, AsDirected potassium chloride 20 mEq ER tablet 20 mEq 1 tab(s), Oral, AsDirected potassium chloride 20 mEq ER tablet 40 mEq 2 tab(s), Oral, AsDirected potassium chloride 20 mEq ER tablet 40 mEq 2 tab(s), Oral, AsDirected Lab Results 05/15 12:30 Glucose Level: 84 Sodium Level: 137 Potassium Level: 4.2 BUN: 20.0 Creatinine Lvl (s): 1.06 05/15 04:22 WBC: 10.4 Hgb: 14.5 Hct: 42.5 Platelet: 285 Neutrophil %: 75.1 H Glucose Level: 86 Sodium Level: 138 Potassium Level: 3.7 BUN: 17.0 Creatinine Lvl (s): 0.96 05/14 04:59 WBC: 11.2 H Hgb: 14.0 Hct: 41.1 Platelet: 285 Neutrophil %: 78.9 H Glucose Level: 99 Sodium Level: 139 Potassium Level: 3.8 BUN: 15.0 Creatinine Lvl (s): 1.03 EKG Electrocardiogram (EKG) - InProcess -- 05/15/24 11:23:00 EST, Upon arrival to nursing unit, Complete by Nursing Assessment/Plan New onset atrial fibrillation with RVR [id number] 5 points Acute hypoxic respiratory failure secondary to new onset CHF Hypertension Osteoporosis Patient presents as a transfer from [facility] for evaluation of dyspnea on exertion. Found to be in new onset atrial fibrillation with RVR, also has pulmonary edema on chest x-ray. Will diurese with IV Lasix 80 mg twice daily. Increase Toprol-XL to 50 mg twice daily and IV heparin for anticoagulation. Underwent successful WARREN with DCCV. Continue IV diuresis with IV lasix 80 mg BID. Consider transition to orals tomorrow. Remains pending ECHO. Digitally Signed by GEETA BEASLEY MD on 05/15/2024 02:41 PM [facility] [id number] Note* Exam Date Time Procedure Performing Provider Status 05/15/24 12:05 PM Electrocardiogram - EKG - CV CELE AGUILAR MD; Auth (Verified) ECG Final Report SINUS RHYTHM LEFT ATRIAL ENLARGEMENT LVH WITH SECONDARY REPOLARIZATION ABNORMALITY Electronic Signature: ABHIJEET AGUILAR MD 05/16/2024 22:24:32 [facility] [id number] Cardiology procedure note Date of Service May 15, 2024 Procedure Name Direct-current cardioversion Referring Provider General cardiology/Dr. Vasquez Consent Informed consent was obtained by nursing personnel Indication A-fib Location CVOR Technique This is an 83-year-old female with a known history of atrial fibrillation. Evaluated by EP servicesrecommending a transesophageal echocardiogram followed by direct-current cardioversion. Patient presented for direct-current cardioversion status post clean transesophageal echocardiogramof any clot or thrombus on May 15, 2024. Presenting rhythm was atrial fibrillation/atrial flutter heart rate approximately 110 bpm. Once a FOOD CONSULTANT administered an IV anesthetic agent the patient was fully sedated and here posterior patch approach utilizing synchronized biphasic waveform at 110 J was successful converting the patientback to normal sinus rhythm at a heart rate of 70 bpm. The patient tolerated the procedure well was returned to cardiac care unit bed 348 in good condition. Assessment/Plan Orders: Complete EKG, 05/15/24 11:23:00 EST, 05/15/24 11:23:00 EST, Upon arrival to nursing unit Diet Order, 05/15/24 13:23:00 EST, Start Meal: Now, Regular, Start diet when patient tolerating sips of water without nausea, Constant Order, : N/A, : N/A Electrocardiogram(EKG), 05/15/24 11:23:00 EST, Upon arrival to nursing unit, Complete by Nursing Post Procedure Assessment, 05/15/24 11:23:00 EST, Stop Date 05/15/24 11:23:00 EST, Upon return SameDay and prn Digitally Signed by MARCELLE ROSAS on 05/15/2024 11:26 AM [facility] [id number] Note* Exam Date Time Procedure Performing Provider Status 05/15/24 10:49 AM Transesophageal Echocardiogram - CV LISA BOSS MD; Auth (Verified) [facility] [id number] Anesthesiology Consult note Patient: JED SEWELL Age: 83 years Sex: Female : 1940 Associated Diagnoses: None Author: CARLO GLASS DO Preoperative Information Greater than 6 hours Anesthesia history Patient's history: negative. Family's history: negative. Review of Systems Ear/Nose/Mouth/Throat: Negative except as documented in history of present illness. Respiratory: Negative except as documented in history of present illness. Cardiovascular: Negative except as documented in history of present illness. Gastrointestinal: Negative except as documented in history of present illness. Genitourinary: Negative except as documented in history of present illness. Endocrine: Negative except as documented in history of present illness. Musculoskeletal: Negative except as documented in history of present illness. Integumentary: Negative except as documented in history of present illness. Neurologic: Negative except as documented in history of present illness. Health Status Allergies: Allergic Reactions (Selected) Severity Not Documented Periactin- Numbness. Nonallergic Reactions (Selected) Moderate Alendronate- Myalgia. Mild AmLODIPine- Edema., Allergies (3) ActiveSeverityReaction alendronateModerateMyalgia amLODIPineMildEdema PeriactinNumbness Current medications: (Selected) Inpatient Medications Ordered Dextrose 50% IV Push: Start: 05/13/24 17:50:00 EST, Dose = 12.5 gram(s), = 25 mL, IV Push, AsDirected, PRN, Hypoglycemia, 05/13/24 17:50:00 EST DuoNeb: Start: 05/14/24 21:46:00 EST, Dose = 3 mL, Soln, Inhalation, q4hRT, PRN, Shortness of breath or wheezing, 0, 05/14/24 21:46:00 EST Heparin HBW CARDIAC Bolus 5000 units/mL: Start: 05/13/24 17:49:00 EST, Dose = 3,954 unit(s), = 0.79mL, IV Push, q6h, PRN, Protocol, Weight Based Heparin, 05/13/24 17:49:00 EST Heparin for IV 25,000 unit(s) [12 unit(s)/kg/hr] + Dextrose 5% Premix Diluent 250 mL: Start: 05/13/24 17:49:00 EST, Rate: 7.91 mL/hr, 05/13/24 17:49:00 EST Lasix: Start: 05/14/24 16:00:00 EST, Dose = 80 mg, = 8 mL, IV Push, BID, Routine, Hold if SBP (mmHg) < 100, 0, 05/14/24 12:47:00 EST Toprol-XL: Start: 05/14/24 17:00:00 EST, Dose = 50 mg, = 1 tab(s), Oral, BIDM, Hold if SBP (mmHg) < 100, Hold if HR (bpm) < 55, give with food/meal, 0, 05/14/24 10:34:00 EST magnesium sulfate for IV bolus: Start: 05/13/24 17:50:00 EST, 2 g, Dose = 50 mL, Soln, IV Piggyback, AsDirected, PRN, for Mg level 1.5-1.8 mg/dl, Rate: 25 mL/hr, Infuse over: 2 hour(s), 0, 05/13/24 17:50:00 EST magnesium sulfate for IV bolus: Start: 05/13/24 17:50:00 EST, 4 g, Dose = 100 mL, Soln, IV Piggyback, AsDirected, PRN, for Mg level 1.1-1.4 mg/dl, Rate: 25 mL/hr, Infuse over: 4 hour(s), 0, 05/13/24 17:50:00 EST magnesium sulfate for IV bolus: Start: 05/13/24 17:50:00 EST, 6 g, Dose = 12 mL, Soln, IV Piggyback, AsDirected, PRN, for Mg level 1 mg/dl or less, Rate: 41.67 mL/hr, Infuse over: 6 hour(s), 0, 05/13/24 17:50:00 EST potassium chloride bolus: Start: 05/13/24 17:50:00 EST, Dose = 20 mEq, = 100 mL, IV Piggyback, AsDirected, PRN, for K+ level 2.5 - 2.9 mEq/dL, Rate: 50 mL/hr, Infuse over: 2 hour(s), 0, 05/13/24 17:50:00 EST potassium chloride: Start: 05/13/24 17:50:00 EST, Dose = 20 mEq, = 1 tab(s), Oral, AsDirected, PRN,for K+ level 3.5 - 3.9 mEq/L, 05/13/24 17:50:00 EST potassium chloride: Start: 05/13/24 17:50:00 EST, Dose = 40 mEq, = 2 tab(s), Oral, AsDirected, PRN,for K+ level 2.5 - 2.9 mEq/dL, 05/13/24 17:50:00 EST potassium chloride: Start: 05/13/24 17:50:00 EST, Dose = 40 mEq, = 2 tab(s), Oral, AsDirected, PRN,for K+ level 3-3.4 mEq/L, 05/13/24 17:50:00 EST Prescriptions Prescribed Prolia 60 mg/mL subcutaneous solution: Dose : 60 mg = 1 mL, Subcutaneous, q6mo, # 1 mL, 0 Refill(s), Pharmacy: [facility], Osteoporosis, 158, cm, 02/23/24 10:19:00 EST, Height, kg,02/23/24 10:19:00 EST, Dosing Weight bisoprolol 5 mg oral tablet: Dose : 5 mg = 1 tab(s), Oral, qHS, # 30 tab(s), 0 Refill(s), Pharmacy:[facility], HTN (hypertension), 158, cm, 04/19/24 14:50:00 EST, Height, kg, 04/19/24 14:50:00 EST, Dosing Weight valsartan 320 mg oral tablet: Dose : 320 mg = 1 tab(s), Oral, qDay, Replaces previous prescription for valsartan 160 mg tablets., # 90 tab(s), 3 Refill(s), Pharmacy: [facility], 158, cm, 02/23/24 10:19:00 EST, Height, kg, 02/23/24 10:19:00 EST, Dosing Weight, Medications (13) Active Scheduled: (2) furosemide 40 mg/4 mL vial 80 mg 8 mL, IV Push, BID metoprolol succinate 50 mg ER tablet 50 mg 1 tab(s), Oral, BIDM Continuous: (1) heparin 25,000 unit(s) [12 unit(s)/kg/hr] + Dextrose 5% Premix Diluent 250 mL 250 mL, Intravenous, 7.91 mL/hr PRN: (10) albuterol - ipratropium 2.5 mg-0.5 mg/3 mL Inhal Germaine UD 3 mL, Inhalation, q4hRT dextrose 50% Solution Disp syringe 50 mL 12.5 gram(s) 25 mL, IV Push, AsDirected heparin 5,000 units/mL (1 mL) vial 3,954 unit(s) 0.79 mL, IV Push, q6h magnesium sulfate 4 gram(s)/100mL PMX 4 g 100 mL, IV Piggyback, AsDirected magnesium sulfate 50% (500mg/mL) 6 g 12 mL, IV Piggyback, AsDirected magnesium sulfate PMX 2 g 50 mL, IV Piggyback, AsDirected potassium chloride (PMX) 20 mEq/100 mL 20 mEq 100 mL, IV Piggyback, AsDirected potassium chloride 20 mEq ER tablet 20 mEq 1 tab(s), Oral, AsDirected potassium chloride 20 mEq ER tablet 40 mEq 2 tab(s), Oral, AsDirected potassium chloride 20 mEq ER tablet 40 mEq 2 tab(s), Oral, AsDirected Problem list: Medical Chronic renal failure, stage 3 (moderate) / SNOMED CT 828130269 / Confirmed HTN (hypertension) / [facility] CT [id number] / Confirmed Serum calcium elevated / SNOMED CT [id number] / Confirmed Osteoporosis / SNOMED CT [id number] / Confirmed, Active Problems (6) Chronic renal failure, stage 3 (moderate) HTN (hypertension) Osteoporosis Serum calcium elevated Shortness of breath Tobacco use Histories Past Medical History: Active HTN (hypertension) ([id number]) Resolved Sciatica (19215045): Resolved. Microalbuminuria (237194763): Resolved. DDD (degenerative disc disease), lumbar (97547213): Resolved. Neck pain on right side (094046783): Resolved. Hypercalcemia (276297148): Resolved. Proteinuria of undiagnosed cause (538678591): Resolved. Acute bronchitis due to infection (604492066): Resolved. Family History: Respiratory disease Father COPD Mother Procedure history: Colonoscopy and biopsy of colon ([id number]) on 11/02/2019 at 78 Years. Colonoscopy ([id number]) on 04/11/2011 at 70 Years. Ovarian cyst ([id number]). Appendectomy ([id number]). Cholecystectomy ([id number]). Abdominal hysterectomy (735930552). Social History: Social & Psychosocial Habits Alcohol 05/13/2024Risk Assessment: Denies Alcohol Use 05/13/2024 Use: Never Employment/School 04/19/2024 Status: Retired Substance Abuse 05/13/2024Risk Assessment: Denies Substance Abuse 05/13/2024 Use: Never Tobacco 05/13/2024 Tobacco Use: 10 or more cigarettes (1/ Type: Cigarettes Number of years: 47 Exercise Comment: none - 12/04/2018 11:18 - Aidee Boyer LPN Home/Environment 05/13/2024 Domestic Concerns None Living situation: Home/Independent Lives In Single level home Nutrition/Health 05/13/2024 Type of diet: Regular Caffeine intake amount: 3 servings a day Appetite Good Eating Difficulties None Physical Examination General: Alert and oriented. Airway: Normal temporomandibular joint mobility, Normal mouth, Normal throat, Normal neck range of motion, Trachea midline. Mallampati classification: II (soft palate, fauces, uvula visible). Head: Normocephalic. Dentition Evaluation: Intact, Own teeth, Denies loose/chipped teeth. Neck: Supple. Respiratory: Lungs are clear to auscultation, Respirations are non-labored. Cardiovascular: Normal rate, No murmur. Heart Sounds: Normal. Gastrointestinal: Soft. Musculoskeletal Normal range of motion. Integumentary: Intact, Warm, Dry. Neurologic: Alert, Oriented. Review / Management Results review: Lab results 05/15/2024 5:45 EST potassium chloride 20 mEq mEq 05/15/2024 5:22 EST Individuals Taught Patient Learning Readiness Willing to learn Barriers to Learning None evident Teaching Method Explanation Preferred Spoken Language [place] Preferred Written Language [place] Anticoag. Med Educated Heparin Reason/Purpose of Anticoagulant Prevent heart attack, Prevent stroke Anticoagulation Medication Generic/Brand name, purpose, action, Dose / Route / Schedule, Side effects Demonstrates Self Injection N/A Anticoag Med(s) Teaching Evaluation Verbalizes/Nonverbally indicates understanding 05/15/2024 4:39 EST Heart Rate Monitored 102 bpm HI Oxygen Saturation 92 % LOW 05/15/2024 4:39 EST Current Weight 64.5 kg Current Weight Pounds Conversion 142 lb Temperature Oral 36.5 DegC Respiratory Rate 16 br/min Systolic Blood Pressure Non-Invasive 163 mmHg HI Diastolic Blood Pressure Non-Invasive 103 mmHg >HHI Reason For Taking VItal Signs Routine Primary Pain Intensity 0 Primary Pain Nonverbal Response Nods No Pain Scale Type 0-10 Pain scale Nail Bed Color [place] Capillary Refill < 2 seconds Heart Sounds ICU S1S2 Heart Rhythm Irregular Dorsalis Pedis Pulse, Left 1+ Thready Dorsalis Pedis Pulse, Right 1+ Thready Radial Pulse, Left 2+ Normal Radial Pulse, Right 2+ Normal Pedal edema Bilateral Edema Ratin+ mild/4mm Leg edema Bilateral Edema Ratin+ mild/4mm Ankle edema Bilateral Edema Ratin+ mild/4mm Cardiac Rhythm Atrial fibrillation Monitoring Lead III, V1/MCL1 QRS Duration 0.13 second(s) ST Exclusion Criteria Yes Alarms On and Functional Yes Heart Rate Alarm Set At - Low 50 Heart Rate Alarm Set At - High 120 Post Rehab Outcome Not Done: See ICU flow (Not Done) Respiratory Symptoms Difficulty breathing at rest, Difficulty breathing with activity, Shortness ofbreath, Short of breath lying flat Respirations Unlabored Respiratory Pattern Regular Breath Sounds Auscultated Anterior and posterior All Lobes Breath Sounds Coarse crackles, Expiratory wheeze, Rhonchi Oxygen Therapy Nasal cannula 0L-6L Oxygen Flow Rate 1 L/min Abdomen Description Non-distended Abdomen Palpation Non-Tender Bowel Continence No bowel movement Bowel Sounds All Quadrants Present Urinary Elimination Voiding, no difficulties Urinary Elimination Devices External catheter External Female external catheter 05/13/2024 Urinary Catheter Activity: Assessed Urinary Catheter Site Condition: No complications Facial Movement Makes facial grimaces, Symmetric resting/crying All Extremity Description Normal for ethnicity Skin Temperature Warm Temperature All Extremities Warm Skin Description Normal for ethnicity, Dry Skin Integrity Intact, Pressure points intact Skin Turgor Non-Elastic Mucous Membrane Color [place] Mucous Membrane Description Moist Sensory Perception Jose No impairment Moisture Jose Occasionally moist Activity Jose Walks occasionally Mobility Jose Slightly limited Nutrition Jose Adequate Friction and Shear Jose No apparent problem Jose Score 19 Hospital Acquired Pressure Injury Risk None/minimal risk (score 19-23) Continuous IV Infusions HBW Antecubital Left 05/13/2024 20 gauge Peripheral IV Activity: Assessed Peripheral IV Dressing Condition: Clean, Dry, Intact Peripheral IV Dressing Activity: Transparent dressing Peripheral IV Line Status/Patency: Continuous infusion Peripheral IV Site Condition: No complications Peripheral IV Equipment: IV Pump Neurological Language Able to speak clearly, Follows simple commands Neurological Symptoms Weakness Gait Unable to assess Extremity Movement Equal Swallowing Difficulty None Level of Consciousness Alert Aspiration Risk None SEDA Yes Strength All Extremities Moderate CN VII Facial Expression and Symmetry Facial movement symmetrical, Wrinkles forehead CN IX, X Swallowing, Gag Reflex Swallowing present Romero Screen Daily History of Fall in Last 3 Months Romero No Presence of Secondary Diagnosis Romero Yes Use of Ambulatory Aid Romero None, bedrest, wheelchair, nurse IV/PRN Adapter Fall Risk Romero Yes Gait Weak or Impaired Fall Risk Romero Weak Mental Status Fall Risk Romero Oriented to own ability Romero Fall Risk Score 45 Violence Risk Confused No Violence Risk Irritable No Violence Risk Boisterous No Violence Risk Verbal Threats No Violence Risk Physical Threats No Violence Risk Attacking Objects No Violence Risk Predictor Score 0 Violence Risk Intervention None Violence Risk Current Interventions None Affect/Behavior Appropriate, Calm, Cooperative Orientation Oriented x 4 BMAT Existing Patient Condition/Safety No order for Strict Bedrest BMAT Level 1: Sit and Shake Sit, side bed/reach midline/shake hands BMAT Level 2: Stretch and Point Seated position, straighten 1 knee; Flex ankle & point toes BMAT Level 3: Stand Patient unable BMAT Level 4: Walk Patient unable BMAT Mobility Level 2 Assistive Device None Positioning Repositions self Mobility Assistance Level Supervision Activity Status ADL Awake, Lights dimmed, Resting, Sleeps intermittently Beds/Devices Hospital bed Activity Assistance One assist NPO Status Maintained Standard Safety ID band on, Allergy Band on, Call device within reach, Bed in low position, Wheels locked, Upper/Half-Length side-rails up, Phone within reach, personal items within reach, Assistive devices within reach, Toileting device within reach, Bedside Cart Locked, Safety level maintained, Hazards removed from floor, Non-Slip footwear, Precautions maintained High Risk Safety Identified as high risk, Door open, Bathroom light on, Non-Slip footwear, Room check performed Demonstrates Correct Call Light Use Yes heparin 16 unit(s)/kg/hr unit(s) Dextrose 5% Premix Diluent Dextrose 5% Premix Diluent mL Adaptive Feeding Equipment None Eating Difficulties None Stool Count 0 EA Cardiac Rehab - Phase I Not Done (Not Done) 05/15/2024 4:22 EST WBC 10.4 10^3/mcL RBC 4.78 10^6/mcL Hgb 14.5 G/dL Hct 42.5 % MCV 88.8 fL MCH 30.2 pg MCHC 34.0 G/dL RDW 13.4 % Platelet 285 10^3/mcL MPV 7.9 fL Neutrophil % 75.1 % HI Lymphocyte % 10.6 % LOW Monocyte % 9.1 % Eosinophil % 4.3 % Basophil % 0.9 % Neutrophil, Absolute 7.8 10^3/mcL Lymphocyte, Absolute 1.1 10^3/mcL Monocyte, Absolute 0.9 10^3/mcL Eosinophil, Absolute 0.4 10^3/mcL Basophil, Absolute 0.1 10^3/mcL Glucose Level 86 mg/dL Sodium Level 138 mEq/L Potassium Level 3.7 mEq/L Chloride 98 mEq/L CO2 31 mEq/L Electrolyte Balance 9.0 mEq/L BUN 17.0 mg/dL Creatinine Lvl (s) 0.96 mg/dL BUN/Creatinine Ratio 17.7 ratio Calcium Lvl 9.5 mg/dL Magnesium Lvl 1.9 mg/dL Total Protein 5.8 G/dL Albumin Level 3.2 G/dL Globulin 2.6 G/dL A/G Ratio 1.2 ratio Bili Total 0.50 mg/dL Bili Direct 0.2 mg/dL Bili Indirect 0.3 mg/dL Alk Phos 98 U/L AST/SGOT 21 U/L ALT/SGPT 22 U/L GFR Non- 56 ml/min/1.73sqm NA GFR >60 ml/min/1.73sqm NA Creatinine Clearance Calc 38.00 mL/min 05/15/2024 3:07 EST Telemetry Telemetry 05/15/2024 2:59 EST heparin 1,054 unit(s) unit(s) Dextrose 5% Premix Diluent 10.54 mL mL 05/15/2024 2:38 EST External Female external catheter 05/13/2024 Urinary Catheter Output: 400 mL 05/15/2024 2:00 EST Oral Intake 500 mL Stool Count 0 EA 05/15/2024 1:59 EST heparin 1,054 unit(s) unit(s) Dextrose 5% Premix Diluent 10.54 mL mL 05/15/2024 0:59 EST heparin 1,054 unit(s) unit(s) Dextrose 5% Premix Diluent 10.54 mL mL 05/14/2024 23:59 EST heparin 1,054 unit(s) unit(s) Dextrose 5% Premix Diluent 10.54 mL mL 05/14/2024 23:07 EST Nail Bed Color [place] Capillary Refill < 2 seconds Dorsalis Pedis Pulse, Left 1+ Thready Dorsalis Pedis Pulse, Right 1+ Thready Radial Pulse, Left 2+ Normal Radial Pulse, Right 2+ Normal Pedal edema Bilateral Edema Ratin+ mild/4mm Leg edema Bilateral Edema Ratin+ mild/4mm Respiratory Symptoms Difficulty breathing with activity Respirations Unlabored Respiratory Pattern Regular Breath Sounds Auscultated Anterior only All Lobes Breath Sounds Clear, Diminished, Equal Cough and Deep Breathe Done Tracheal Position Midline Abdomen Description Non-distended, Symmetric, Soft Abdomen Palpation Non-Tender, Soft Bowel Continence No bowel movement Swallowing Disorder None Bowel Sounds All Quadrants Present Urinary Elimination Incontinence Urine Color [place] Urine Description Large amount Urinary Elimination Devices External catheter Facial Movement Makes facial grimaces, Symmetric resting/crying All Extremity Description [place], Normal for ethnicity Skin Temperature Warm Temperature All Extremities Warm Skin Description [place], Normal for ethnicity, Dry Skin Integrity Intact Skin Turgor Non-Elastic Mucous Membrane Color [place] Mucous Membrane Description Moist Neurological Language Able to speak clearly, Follows simple commands Neurological Symptoms Weakness Gait Steady Extremity Movement Equal Swallowing Difficulty None Characteristics of Communication Appropriate Characteristics of Speech Clear Facial Symmetry Symmetric Level of Consciousness Alert Aspiration Risk None Eye Opening Response Asher Spontaneously Best Motor Response Ignacia Obeys simple commands Best Verbal Response Asher Oriented Asher Coma Score 15 SEDA Yes Left Pupil Description Regular, Round Right Pupil Description Regular, Round Left Pupil Reaction Brisk Right Pupil Reaction Brisk Pupil Size, Left 3 mm Pupil Size, Right 3 mm Strength All Extremities Moderate Left Upper Extremity Sensation Intact Right Upper Extremity Sensation Intact Left Lower Extremity Sensation Intact Right Lower Extremity Sensation Intact CN V Facial Sensation Corneal reflex present, Light touch equal bilaterally CN VII Facial Expression and Symmetry Facial movement symmetrical CN IX, X Swallowing, Gag Reflex Swallowing present, Gag reflex present Affect/Behavior Appropriate, Calm, Cooperative Orientation Oriented x 4 Orientation Assessment Oriented x 4 05/14/2024 22:59 EST External Female external catheter 05/13/2024 Urinary Catheter Activity: Assessed Urinary Catheter Site Condition: No complications Urinary Catheter Output: 800 mL Antecubital Left 05/13/2024 20 gauge Peripheral IV Activity: Assessed Peripheral IV Dressing Condition: Clean, Dry, Intact Peripheral IV Dressing Activity: Transparent dressing Peripheral IV Line Status/Patency: Continuous infusion Peripheral IV Line Care: Secured with tape Peripheral IV Site Condition: No complications Peripheral IV Equipment: IV Pump 05/14/2024 22:57 EST Oxygen Saturation 95 % 05/14/2024 22:56 EST Systolic Blood Pressure Non-Invasive 164 mmHg HI Diastolic Blood Pressure Non-Invasive 89 mmHg Mean Arterial Pressure (NBP) 111 mmHg 05/14/2024 22:56 EST Heart Rate Monitored 95 bpm Oxygen Saturation 94 % 05/14/2024 22:56 EST Temperature Oral 37 DegC Respiratory Rate 14 br/min Reason For Taking VItal Signs Routine Primary Pain Intensity 0 Pain Scale Type 0-10 Pain scale Monitor Alarms On and Limits Checked Heart Sounds ICU S1S2 Heart Rhythm Irregular Cardiac Rhythm Atrial fibrillation Monitoring Lead II, V1/MCL1 Alarms On and Functional Yes Heart Rate Alarm Set At - Low 50 Heart Rate Alarm Set At - High 120 Oxygen Therapy Nasal cannula 0L-6L Oxygen Flow Rate 1 L/min 05/14/2024 22:17 EST APTT 56.4 seconds VA 05/14/2024 22:09 EST Sensory Perception Jose No impairment Moisture Jose Constantly moist Activity Jose Walks occasionally Mobility Jose Slightly limited Nutrition Jose Adequate Friction and Shear Jose No apparent problem Jose Score 17 Hospital Acquired Pressure Injury Risk None/minimal risk (score 19-23) Assistive Device None Positioning Repositions self Mobility Assistance Level Supervision Activity Status ADL Awake, Resting Beds/Devices Hospital bed, low air loss bed Activity Assistance One assist Nurse Safety Checks q2hrs Performed 11pm-3am Standard Safety ID band on, Allergy Band on, Call device within reach, Bed in low position, Wheels locked, Safety level maintained High Risk Safety Room check performed Demonstrates Correct Call Light Use Yes heparin 16 unit(s)/kg/hr unit(s) heparin 18 unit(s)/kg/hr unit(s) Dextrose 5% Premix Diluent Dextrose 5% Premix Diluent mL Dextrose 5% Premix Diluent Dextrose 5% Premix Diluent mL 05/14/2024 21:44 EST Pulmonary Status Current smoker Surgical Status No surgery Chest X-Ray Infiltrates or atelectasis in more than one lobe or rib frac Respiratory Pattern (RT) RR 10-20 BPM, Regular pattern Breath Sounds (RT) Clear to auscultation Cough (RT) Strong, non-productive Level of Activity Ambulatory Mental Status (RT) Alert, oriented and cooperative Respiratory Therapy Evaluation Score 5 Respiratory Evaluation Triage Score (0-5) Freq: Q4RT prn RT Assessment [Frequency/Schedule] Triage score 0-5, modify scheduled medications to Q4hRT PRN RT Evaluation Steps Chart review completed, Assessment completed: RR, HR, Auscultation, Cough, Patient Interview completed Respiratory Therapy Progress Note Respiratory Therapy Evaluation 05/14/2024 20:40 EST Peripheral Pulse Rate 98 bpm Respiratory Rate 14 br/min Respirations Unlabored Breath Sounds Auscultated Anterior only All Lobes Breath Sounds Clear Aerosol Delivery Device Small volume nebulizer Aerosol Treatment Route Aerosol mask Cough and Deep Breathe Done Spontaneous Cough Yes Oxygen Saturation 96 % Respiratory Treatment Charge Aerosol treatment Abdomen Description Non-distended, Symmetric, Soft Abdomen Palpation Non-Tender, Soft Bowel Continence No bowel movement Swallowing Disorder None Bowel Sounds All Quadrants Present Urinary Elimination Incontinence Urine Color [place] Urine Description Large amount, Clear Urinary Elimination Devices External catheter Skin Temperature Warm Skin Description [place], Normal for ethnicity, Dry Skin Integrity Intact Skin Turgor Non-Elastic Mucous Membrane Color [place] Mucous Membrane Description Moist Level of Consciousness Arousable with minimal stimulation 05/14/2024 20:39 EST Oxygen Saturation 95 % 05/14/2024 20:38 EST albuterol-ipratropium 3 mL mL 05/14/2024 20:06 EST Heart Rate Monitored 102 bpm HI Oxygen Saturation 91 % LOW 05/14/2024 20:06 EST Systolic Blood Pressure Non-Invasive 153 mmHg HI Diastolic Blood Pressure Non-Invasive 91 mmHg HI Mean Arterial Pressure (NBP) 114 mmHg 05/14/2024 20:06 EST Respiratory Rate 18 br/min Primary Pain Intensity 0 Pain Scale Type 0-10 Pain scale Monitor Alarms On and Limits Checked Nail Bed Color [place] Capillary Refill < 2 seconds Heart Sounds ICU S1S2 Heart Rhythm Irregular Dorsalis Pedis Pulse, Left 1+ Thready Dorsalis Pedis Pulse, Right 1+ Thready Radial Pulse, Left 2+ Normal Radial Pulse, Right 2+ Normal Pedal edema Bilateral Edema Ratin+ mild/4mm Leg edema Bilateral Edema Ratin+ mild/4mm Ankle edema Bilateral Edema Ratin+ mild/4mm Cardiac Rhythm Atrial fibrillation Monitoring Lead II, V1/MCL1 QRS Duration 0.08 second(s) Alarms On and Functional Yes Heart Rate Alarm Set At - Low 50 Heart Rate Alarm Set At - High 120 Oxygen Therapy Nasal cannula 0L-6L Oxygen Flow Rate 1 L/min Facial Movement Makes facial grimaces, Symmetric resting/crying All Extremity Description [place], Normal for ethnicity Temperature All Extremities Warm Sensory Perception Jose No impairment Moisture Jose Occasionally moist Activity Jose Walks occasionally Mobility Jose Slightly limited Nutrition Jose Adequate Friction and Shear Jose No apparent problem Jose Score 19 Hospital Acquired Pressure Injury Risk None/minimal risk (score 19-23) Neurological Language Able to speak clearly, Follows simple commands Neurological Symptoms Weakness Gait Steady Extremity Movement Equal Swallowing Difficulty None Characteristics of Communication Appropriate Characteristics of Speech Clear Facial Symmetry Symmetric Level of Consciousness Alert Aspiration Risk None Eye Opening Response Asher Spontaneously Best Motor Response Asher Obeys simple commands Best Verbal Response Asher Oriented Ignacia Coma Score 15 SEDA Yes Left Pupil Description Regular, Round Right Pupil Description Regular, Round Left Pupil Reaction Brisk Right Pupil Reaction Brisk Pupil Size, Left 3 mm Pupil Size, Right 3 mm Strength All Extremities Moderate Left Upper Extremity Sensation Intact Right Upper Extremity Sensation Intact Left Lower Extremity Sensation Intact Right Lower Extremity Sensation Intact CN V Facial Sensation Light touch equal bilaterally CN VII Facial Expression and Symmetry Facial movement symmetrical CN IX, X Swallowing, Gag Reflex Swallowing present, Gag reflex present Affect/Behavior Appropriate, Calm, Cooperative Orientation Oriented x 4 Orientation Assessment Oriented x 4 Assistive Device None Positioning Repositions self Mobility Assistance Level Supervision Activity Status ADL Awake, Resting Beds/Devices Hospital bed, low air loss bed Activity Assistance One assist Nurse Safety Checks q2hrs Performed 7pm-11pm Standard Safety ID band on, Allergy Band on, Call device within reach, Bed in low position, Wheels locked, Safety level maintained High Risk Safety Room check performed Demonstrates Correct Call Light Use Yes heparin 16 unit(s)/kg/hr unit(s) Dextrose 5% Premix Diluent Dextrose 5% Premix Diluent mL 05/14/2024 20:00 EST Antecubital Left 05/13/2024 20 gauge Peripheral IV Activity: Assessed Peripheral IV Dressing Condition: Clean, Dry, Intact Peripheral IV Dressing Activity: Transparent dressing Peripheral IV Line Status/Patency: Continuous infusion Peripheral IV Line Care: Secured with tape Peripheral IV Site Condition: No complications Peripheral IV Equipment: IV Pump 05/14/2024 19:56 EST Telemetry Telemetry 05/14/2024 18:51 EST Heart Rate Monitored 94 bpm Oxygen Saturation 92 % LOW 05/14/2024 18:51 EST Reason For Taking VItal Signs Routine Monitor Alarms On and Limits Checked Oxygen Therapy Nasal cannula 0L-6L Oxygen Flow Rate 1 L/min 05/14/2024 18:45 EST Heart Rate Monitored 85 bpm Oxygen Saturation 95 % 05/14/2024 18:45 EST Pain Scale Type 0-10 Pain scale Oxygen Therapy Nasal cannula 0L-6L Oxygen Flow Rate 2 L/min 05/14/2024 15:58 EST Apical Heart Rate 95 bpm furosemide 80 mg mg metoprolol 50 mg mg 05/14/2024 15:55 EST Heart Rate Monitored 98 bpm Oxygen Saturation 96 % 05/14/2024 15:55 EST Temperature Oral 36.4 DegC Respiratory Rate 20 br/min Systolic Blood Pressure Non-Invasive 140 mmHg Diastolic Blood Pressure Non-Invasive 96 mmHg HI Blood Pressure Method Manual Blood Pressure Location Left arm Blood Pressure Cuff Size Medium Reason For Taking VItal Signs Routine Primary Pain Intensity 0 Pain Scale Type 0-10 Pain scale Monitor Alarms On and Limits Checked Heart Sounds ICU S1S2 Heart Rhythm Irregular Pedal edema Bilateral Edema Ratin+ mild/4mm Leg edema Bilateral Edema Ratin+ mild/4mm Ankle edema Bilateral Edema Ratin+ mild/4mm Respiratory Symptoms Difficulty breathing at rest Respirations Unlabored Respiratory Pattern Regular Breath Sounds Auscultated Anterior and posterior All Lobes Breath Sounds Diminished Cough None Oxygen Therapy Nasal cannula 0L-6L Oxygen Flow Rate 3 L/min Tracheal Position Midline Bowel Continence No bowel movement Swallowing Disorder None Urinary Elimination Voiding, no difficulties Urine Color Yellow Urinary Elimination Devices External catheter Sensory Perception Jose No impairment Moisture Jose Occasionally moist Activity Jose Walks occasionally Mobility Jose Slightly limited Nutrition Joes Adequate Friction and Shear Jose No apparent problem Jose Score 19 Hospital Acquired Pressure Injury Risk None/minimal risk (score 19-23) Antecubital Left 05/13/2024 20 gauge Peripheral IV Activity: Assessed Peripheral IV Dressing Condition: Clean, Dry, Intact Peripheral IV Dressing Activity: Transparent dressing Peripheral IV Line Status/Patency: Continuous infusion Peripheral IV Line Care: Secured with tape Peripheral IV Site Condition: No complications Peripheral IV Equipment: IV Pump Level of Consciousness Alert Violence Risk Confused No Violence Risk Irritable No Violence Risk Boisterous No Violence Risk Verbal Threats No Violence Risk Physical Threats No Violence Risk Attacking Objects No Violence Risk Predictor Score 0 Violence Risk Intervention None Violence Risk Current Interventions None Affect/Behavior Appropriate, Calm, Cooperative Orientation Oriented x 4 BMAT Existing Patient Condition/Safety No order for Strict Bedrest BMAT Level 1: Sit and Shake Sit, side bed/reach midline/shake hands BMAT Level 2: Stretch and Point Seated position, straighten 1 knee; Flex ankle & point toes BMAT Level 3: Stand Stand up w/o assist/Use of assist device BMAT Level 4: Walk March in place; step forward & back each foot BMAT Mobility Level 4 Assistive Device None Positioning Repositions self Mobility Assistance Level Supervision Activity Status ADL Awake, Resting Beds/Devices Hospital bed Activity Assistance One assist Nurse Safety Checks q2hrs Performed 7am-7pm Standard Safety Safety level maintained High Risk Safety Room check performed Demonstrates Correct Call Light Use Yes RN Coordination of Care 7am-7pm Appetite Fair Eating Difficulties None 05/14/2024 15:50 EST heparin 16 unit(s)/kg/hr unit(s) Dextrose 5% Premix Diluent Dextrose 5% Premix Diluent mL 05/14/2024 15:12 EST Primary Care Phone Message FW: Transition of Care sent from [facility] 05/14/2024 15:00 EST External Female external catheter 05/13/2024 Urinary Catheter Output: 750 mL Oral Intake 480 mL 05/14/2024 14:23 EST APTT 47.2 seconds HI 05/14/2024 14:14 EST Post Rehab Outcome Not Done: See ICU flow (Not Done) Individuals Taught Patient Learning Readiness Willing to learn Barriers to Learning None evident Teaching Method Explanation Preferred Spoken Language [place] Preferred Written Language [place] Anticoag. Med Educated Heparin Reason/Purpose of Anticoagulant Rx or prevent blood clots Anticoagulation Medication Dose / Route / Schedule Demonstrates Self Injection N/A Anticoag Med(s) Teaching Evaluation Verbalizes/Nonverbally indicates understanding Cardiac Rehab - Phase I Not Done (Not Done) 05/14/2024 14:12 EST Transition of Care Note Transition of Care sent from [facility] 05/14/2024 14:11 EST Cardiology Progress Note Progress Note 05/14/2024 14:04 EST Basic Disease Process 1 Concomitant Disease Process Other condition complicating cure Concomitant Disease Process Score Yes Palliative Total Score 1 Palliative Screen Applicable for This Pt Yes - screened, n/a LACE Length of Stay 3 days LACE Acute Admission Inpatient LACE ED Visits 1 LACE CoMorbidity Score 4 LACE Score 11 Readmission Risk Screening Note Readmission Risk Screening 05/14/2024 13:40 EST [facility] Current Living Situation I have a steady place to live [facility] Current Issues Living Environment None [facility] Worried Food Running Out P12M Never true [facility] Food Gone, No Money To Buy P12M Never true [facility] No Transport Med/Appt/Work P12M No [facility] Utilities Threaten Shut Off P12M No [facility] Anyone Physically Hurt You Never (1) [facility] Anyone Insult Or Talk Down To You Never (1) [facility] Anyone Threaten You With Harm Never (1) [facility] Anyone Scream Or Curse At You Never (1) [facility] Safety Total Score 4 Lives In Single level home Living Situation Home independently, Lives alone Patient's Responsibilities Personal ADL Current Home Treatments None Professional Skilled Services None Special Services and Community Resources None Discharge To, Anticipated Home independently Anticipated Discharge Date 05/16/2024 Transition Planning Note Transition Planning Initial Assessment 05/14/2024 13:18 EST Transesophageal Echocardiogram - CV Ordered (In Progress) 05/14/2024 12:08 EST heparin Begin Bag 2.5 mL unit(s) Dextrose 5% Premix Diluent Begin Bag 250 mL mL 05/14/2024 11:14 EST Oxygen Saturation 98 % 05/14/2024 11:14 EST Temperature Oral 36.5 DegC Respiratory Rate 20 br/min Systolic Blood Pressure Non-Invasive 146 mmHg HI Diastolic Blood Pressure Non-Invasive 88 mmHg Blood Pressure Method Manual Blood Pressure Location Left arm Blood Pressure Cuff Size Medium Reason For Taking VItal Signs Routine Primary Pain Intensity 0 Pain Scale Type 0-10 Pain scale Monitor Alarms On and Limits Checked Nail Bed Color [place] Capillary Refill < 2 seconds Heart Sounds ICU S1S2 Heart Rhythm Irregular Dorsalis Pedis Pulse, Left 1+ Thready Dorsalis Pedis Pulse, Right 1+ Thready Radial Pulse, Left 2+ Normal Radial Pulse, Right 2+ Normal Pedal edema Bilateral Edema Ratin+ mild/4mm Leg edema Bilateral Edema Ratin+ mild/4mm Ankle edema Bilateral Edema Ratin+ mild/4mm Respiratory Symptoms Difficulty breathing at rest Respirations Unlabored Respiratory Pattern Regular Breath Sounds Auscultated Anterior and posterior All Lobes Breath Sounds Diminished Cough None Oxygen Therapy Nasal cannula 0L-6L Oxygen Flow Rate 3 L/min Tracheal Position Midline Abdomen Description Non-distended, Soft Abdomen Palpation Non-Tender Passing Flatus Yes Bowel Continence Continent Swallowing Disorder None Bowel Sounds All Quadrants Present Urinary Elimination Voiding, no difficulties Urine Color Yellow Urine Description Medium amount Urinary Elimination Devices External catheter External Female external catheter 05/13/2024 Urinary Catheter Activity: Assessed Urinary Catheter Site Condition: No complications Facial Movement Makes facial grimaces All Extremity Description [place], Normal for ethnicity Skin Temperature Warm Temperature All Extremities Warm Skin Description [place], Normal for ethnicity Skin Integrity Intact Skin Turgor Non-Elastic Mucous Membrane Color [place] Mucous Membrane Description Moist Sensory Perception Jose No impairment Moisture Jose Occasionally moist Activity Jose Walks occasionally Mobility Jose Slightly limited Nutrition Jose Adequate Friction and Shear Jose No apparent problem Jose Score 19 Hospital Acquired Pressure Injury Risk None/minimal risk (score 19-23) Antecubital Left 05/13/2024 20 gauge Peripheral IV Activity: Assessed Peripheral IV Dressing Condition: Clean, Dry, Intact Peripheral IV Dressing Activity: Transparent dressing Peripheral IV Line Status/Patency: Continuous infusion Peripheral IV Line Care: Secured with tape Peripheral IV Site Condition: No complications Peripheral IV Equipment: IV Pump Neurological Language Able to speak clearly Neurological Symptoms Weakness Gait Steady Extremity Movement Equal Swallowing Difficulty None Characteristics of Communication Appropriate Characteristics of Speech Clear Facial Symmetry Symmetric Level of Consciousness Alert Aspiration Risk None SEDA Yes Left Pupil Description Regular Right Pupil Description Regular Left Pupil Reaction Brisk Right Pupil Reaction Brisk Pupil Size, Left 3 mm Pupil Size, Right 3 mm Strength All Extremities Moderate Left Upper Extremity Sensation Intact Right Upper Extremity Sensation Intact Left Lower Extremity Sensation Intact Right Lower Extremity Sensation Intact CN V Facial Sensation Light touch equal bilaterally CN VII Facial Expression and Symmetry Facial movement symmetrical CN VIII Hearing Spoken word equally audible left/right CN IX, X Swallowing, Gag Reflex Swallowing present Violence Risk Confused No Violence Risk Irritable No Violence Risk Boisterous No Violence Risk Verbal Threats No Violence Risk Physical Threats No Violence Risk Attacking Objects No Violence Risk Predictor Score 0 Violence Risk Intervention None Violence Risk Current Interventions None Affect/Behavior Appropriate, Calm, Cooperative Orientation Oriented x 4 BMAT Existing Patient Condition/Safety No order for Strict Bedrest BMAT Level 1: Sit and Shake Sit, side bed/reach midline/shake hands BMAT Level 2: Stretch and Point Seated position, straighten 1 knee; Flex ankle & point toes BMAT Level 3: Stand Stand up w/o assist/Use of assist device BMAT Level 4: Walk March in place; step forward & back each foot BMAT Mobility Level 4 Assistive Device None Positioning Repositions self Mobility Assistance Level Supervision Activity Status ADL Awake, Resting Beds/Devices Hospital bed Activity Assistance One assist Nurse Safety Checks q2hrs Performed 7am-7pm Standard Safety Safety level maintained High Risk Safety Room check performed Demonstrates Correct Call Light Use Yes RN Coordination of Care 7am-7pm heparin 14 unit(s)/kg/hr unit(s) Dextrose 5% Premix Diluent Dextrose 5% Premix Diluent mL Appetite Fair Eating Difficulties None 05/14/2024 11:12 EST Apical Heart Rate 119 bpm HI metoprolol 25 mg mg 05/14/2024 11:11 EST Systolic Blood Pressure Non-Invasive In Error mmHg (In Error) 05/14/2024 11:01 EST Telemetry Telemetry 05/14/2024 11:01 EST Cardiac Rhythm Atrial fibrillation Monitoring Lead III, V1/MCL1 QRS Duration 0.10 second(s) ST Exclusion Criteria Yes Alarms On and Functional Yes Heart Rate Alarm Set At - Low 50 Heart Rate Alarm Set At - High 120 05/14/2024 10:34 EST Notify date/time 05/14/2024 10:34 Provider Notified GEETA BEASLEY MD Notification Method Pager Information Communicated Nurse communication Details Communicated Pt HR up to 140s but now back to 110s systolic; frequently increases into the 130s; wondering if there is anything you want to give for that? Notification Outcome Orders received Person Reporting Result(s) Abimael Grant RN Details of Results Received Physician states he will go up on her metoprolol from 25mg BID to 50 mgBID; will give pt an addtional 25mg more now and then later will be given 50 mg as new dose Results Read Back Yes 05/14/2024 9:00 EST CAM Mental Status Change & Fluctuation No CAM Inattention No CAM Disorganized Thinking No CAM Altered Level of Consciousness No Confusion Assessment Method Score Negative 05/14/2024 8:38 EST Apical Heart Rate 125 bpm >HHI metoprolol 25 mg mg 05/14/2024 8:37 EST furosemide 40 mg mg 05/14/2024 8:28 EST Heart Rate Monitored 115 bpm HI Oxygen Saturation 95 % 05/14/2024 8:24 EST Heart Rate Monitored 126 bpm HI Oxygen Saturation 95 % 05/14/2024 8:24 EST Systolic Blood Pressure Non-Invasive 158 mmHg HI Diastolic Blood Pressure Non-Invasive 86 mmHg 05/14/2024 8:24 EST Temperature Oral 36.5 DegC Respiratory Rate 20 br/min Blood Pressure Method Manual Blood Pressure Location Left arm Blood Pressure Cuff Size Medium Reason For Taking VItal Signs Routine Primary Pain Intensity 0 Pain Scale Type 0-10 Pain scale Heart Sounds ICU S1S2 Heart Rhythm Irregular Dorsalis Pedis Pulse, Left 1+ Thready Dorsalis Pedis Pulse, Right 1+ Thready Radial Pulse, Left 2+ Normal Radial Pulse, Right 2+ Normal Pedal edema Bilateral Edema Ratin+ mild/4mm Leg edema Bilateral Edema Ratin+ mild/4mm Ankle edema Bilateral Edema Ratin+ mild/4mm Respiratory Symptoms Difficulty breathing with activity Respirations Unlabored Respiratory Pattern Regular Breath Sounds Auscultated Anterior and posterior All Lobes Breath Sounds Diminished Cough None Oxygen Therapy Nasal cannula 0L-6L Oxygen Flow Rate 3 L/min Tracheal Position Midline Abdomen Description Non-distended, Soft Abdomen Palpation Non-Tender Passing Flatus Yes Bowel Movement Last Date 05/14/2024 Stool Description Medium amount, Loose Bowel Continence Continent Swallowing Disorder None Bowel Sounds All Quadrants Present Urinary Elimination Voiding, no difficulties Urine Description Medium amount Urinary Elimination Devices External catheter External Female external catheter 05/13/2024 Urinary Catheter Activity: Changed (Modified) Urinary Catheter Site Condition: No complications Urinary Catheter Care Completed: Yes Facial Movement Symmetric resting/crying Skin Temperature Warm Skin Description [place], Normal for ethnicity Skin Integrity Intact Skin Turgor Non-Elastic Mucous Membrane Color [place] Mucous Membrane Description Moist Sensory Perception Jose No impairment Moisture Jose Occasionally moist Activity Jose Walks occasionally Mobility Jose Slightly limited Nutrition Jose Adequate Friction and Shear Jose No apparent problem Jose Score 19 Hospital Acquired Pressure Injury Risk None/minimal risk (score 19-23) Antecubital Left 05/13/2024 20 gauge Peripheral IV Activity: Assessed Peripheral IV Dressing Condition: Clean, Dry, Intact Peripheral IV Dressing Activity: Transparent dressing Peripheral IV Line Status/Patency: Continuous infusion Peripheral IV Line Care: Secured with tape Peripheral IV Site Condition: No complications Peripheral IV Equipment: IV Pump Neurological Language Able to speak clearly Neurological Symptoms Weakness Gait Steady Extremity Movement Equal Swallowing Difficulty None Characteristics of Communication Appropriate Characteristics of Speech Clear Facial Symmetry Symmetric Level of Consciousness Alert Aspiration Risk None SEDA Yes Left Pupil Description Regular Right Pupil Description Regular Left Pupil Reaction Brisk Right Pupil Reaction Brisk Pupil Size, Left 3 mm Pupil Size, Right 3 mm Strength All Extremities Moderate Left Upper Extremity Sensation Intact Right Upper Extremity Sensation Intact Left Lower Extremity Sensation Intact Right Lower Extremity Sensation Intact CN V Facial Sensation Light touch equal bilaterally CN VII Facial Expression and Symmetry Facial movement symmetrical CN VIII Hearing Spoken word equally audible left/right CN IX, X Swallowing, Gag Reflex Swallowing present Violence Risk Confused No Violence Risk Irritable No Violence Risk Boisterous No Violence Risk Verbal Threats No Violence Risk Physical Threats No Violence Risk Attacking Objects No Violence Risk Predictor Score 0 Violence Risk Intervention None Violence Risk Current Interventions None Affect/Behavior Appropriate, Calm, Cooperative Orientation Oriented x 4 B (more content not included)... [id number] Res[facility] Hospital Progress note Respiratory Therapy Evaluation Entered On: 05/14/2024 21:45 EST Performed On: 05/14/2024 21:44 EST by Tracey Delgado RRT Respiratory Therapy Evaluation Pulmonary Status : Current smoker Surgical Status : No surgery Chest X-Ray : Infiltrates or atelectasis in more than one lobe or rib fractures Respiratory Pattern (RT) : RR 10-20 BPM, Regular pattern Breath Sounds (RT) : Clear to auscultation Cough (RT) : Strong, non-productive Level of Activity : Ambulatory Mental Status : Alert, oriented and cooperative Respiratory Therapy Evaluation Score : 5 RT Evaluation Steps : Chart review completed, Assessment completed: RR, HR, Auscultation, Cough, Patient Interview completed Respiratory Evaluation Triage Score : (0-5) Freq: Q4RT prn RT Assessment [Frequency/Schedule] : Triage score 0-5, modify scheduled medications to Q4hRT PRN Tracey Delgado PRICING ANALYST - 05/14/2024 21:44 EST Digitally Signed by Tracey Delgado RRT on 05/14/2024 09:44 PM [id number] History and physical note Date of Service May 13, 2024 History of Present Illness Patient is an 83-year-old with medical history significant for hypertension, and osteoporosis who presents as a transfer from [facility] due to shortness of breath. Over the last 1 week she has been experiencing more exertional shortness of breath associated with bilateral lower extremity swelling. Chest x- ray reveals pulmonary vascular congestion and left-sided pleural effusion. proBNP elevated above 12,000 with a normal creatinine, troponin x 1 was 207, patient has no chest pain. EKG shows new onset atrial fibrillation with ventricular rates in the 130s. Review of Systems 12 point ROS negative unless mentioned in HPI Physical Exam Vitals and Measurements T: 36.5 C (Oral) HR: 99 (Monitored) RR: 20 BP: 130/70 SpO2: 96% HT: 160.0 cm WT: 65.9 kg BMI: 25.74 Weight Dosing Weight: 65.9 kg (05/13/24) Constitutional: Oriented to time, place, and person well developed well nourished Cardiovascular: JVD elevated, S1 S2 present,No added sounds, + lower extremity edema Abdomen: Soft nontender Musculoskeletal system: general/bilateral Normal movement of all extremities Neurological: No focal neurological deficit Skin: color and pigmentation is normal Lab Results No 36 Hour Lab Data Assessment/Plan New onset atrial fibrillation with RVR [id number] 5 points Acute hypoxic respiratory failure secondary to new onset CHF Hypertension Osteoporosis Patient presents as a transfer from [facility] for evaluation of dyspnea on exertion. Found to be in new onset atrial fibrillation with RVR, also has pulmonary edema on chest x-ray. Will diurese with IV Lasix 40 mg twice daily. Add Toprol-XL 25 mg twice daily and IV heparin for anticoagulation. Will use IV diltiazem if additional rate control is necessary. Will plan for WARREN guided cardioversion likely on Tuesday. Obtain transthoracic echocardiogram, A1c, TSH, lipid profile. Trend troponins. Problem List/Past Medical History Ongoing Chronic renal failure, stage 3 (moderate) HTN (hypertension) Osteoporosis Serum calcium elevated Historical Acute bronchitis due to infection DDD (degenerative disc disease), lumbar Hypercalcemia Microalbuminuria Neck pain on right side Proteinuria of undiagnosed cause Sciatica Procedure/Surgical History Colonoscopy and biopsy of colon: 11/02/19 Colonoscopy: 04/11/11 Appendectomy Abdominal hysterectomy Cholecystectomy Medications Home Medications (3) Active bisoprolol 5 mg oral tablet 5 mg = 1 tab(s), Oral, qHS Prolia 60 mg/mL subcutaneous solution 60 mg = 1 mL, Subcutaneous, q6mo valsartan 320 mg oral tablet 320 mg = 1 tab(s), Oral, qDay Allergies alendronate (Moderate) Myalgia amLODIPine (Mild) Edema Periactin Numbness Social History Smoking Status - 03/04/2017 Current every day smoker Alcohol - Denies Alcohol Use, 03/04/2017 Use: Never., 12/04/2018 Employment/School Status: Retired., 12/04/2018 Exercise Home/Environment None Domestic Concerns:. Living situation: Home/Independent. Single level home Lives In:., 12/04/2018 Nutrition/Health Type of diet: Regular. Caffeine intake amount: 3 servings a day. Appetite Good. Eating DifficultiesNone., 02/23/2024 Substance Abuse - Denies Substance Abuse, 03/04/2017 Use: Never., 12/04/2018 Tobacco Nicotine Use: 10 or more cigarettes (1/2 pack or more)/day in last 30 days. Type: Cigarettes. Number of years: 47., 09/01/2023 Family History COPD: Mother. Respiratory disease: Father. Health Status Family Member(s) Immunizations diphtheria/tetanus/pertussis (DTaP) ped: 0 unknown unit (08/14/14) pneumococcal 13-valent conjugate vaccine: 0.5 unknown unit (03/09/19) pneumococcal 23-valent vaccine(Pneumovax: 0 unknown unit (04/11/02) pneumococcal 23-valent vaccine(Pneumovax: 0 unknown unit (03/10/02) SARS-CoV-2 (COVID-19) mRNA-1273 vaccine: 0.25 unknown unit (02/12/21) SARS-CoV-2 (COVID-19) mRNA-1273 vaccine: 0.5 unknown unit (07/26/20) SARS-CoV-2 (COVID-19) mRNA-1273 vaccine: 0.5 unknown unit (06/28/20) tetanus/diphth/pertuss (Tdap) adult/adol: 0.5 mL (08/14/14) zoster vaccine, inactivated: 1 unknown unit (08/19/20) zoster vaccine, inactivated: 1 unknown unit (04/18/20) Code Status Code Status - Ordered -- 05/13/24 17:50:00 EST, Full Code, Constant Order Digitally Signed by DANNY REYES MD on 05/13/2024 10:08 PM [id number] History and physical note Date of Service May 13, 2024 History of Present Illness Patient is an 83-year-old with medical history significant for hypertension, and osteoporosis who presents as a transfer from [facility] due to shortness of breath. Over the last 1 week she has been experiencing more exertional shortness of breath associated with bilateral lower extremity swelling. Chest x- ray reveals pulmonary vascular congestion and left-sided pleural effusion. proBNP elevated above 12,000 with a normal creatinine, troponin x 1 was 207, patient has no chest pain. EKG shows new onset atrial fibrillation with ventricular rates in the 130s. Review of Systems 12 point ROS negative unless mentioned in HPI Physical Exam Vitals and Measurements T: 36.5 C (Oral) HR: 99 (Monitored) RR: 20 BP: 130/70 SpO2: 96% HT: 160.0 cm WT: 65.9 kg BMI: 25.74 Weight Dosing Weight: 65.9 kg (05/13/24) Constitutional: Oriented to time, place, and person well developed well nourished Cardiovascular: JVD elevated, S1 S2 present,No added sounds, + lower extremity edema Abdomen: Soft nontender Musculoskeletal system: general/bilateral Normal movement of all extremities Neurological: No focal neurological deficit Skin: color and pigmentation is normal Lab Results No 36 Hour Lab Data Assessment/Plan New onset atrial fibrillation with RVR [id number] 5 points Acute hypoxic respiratory failure secondary to new onset CHF Hypertension Osteoporosis Patient presents as a transfer from [facility] for evaluation of dyspnea on exertion. Found to be in new onset atrial fibrillation with RVR, also has pulmonary edema on chest x-ray. Will diurese with IV Lasix 40 mg twice daily. Add Toprol-XL 25 mg twice daily and IV heparin for anticoagulation. Will use IV diltiazem if additional rate control is necessary. Will plan for WARREN guided cardioversion likely on Tuesday. Obtain transthoracic echocardiogram, A1c, TSH, lipid profile. Trend troponins. Problem List/Past Medical History Ongoing Chronic renal failure, stage 3 (moderate) HTN (hypertension) Osteoporosis Serum calcium elevated Historical Acute bronchitis due to infection DDD (degenerative disc disease), lumbar Hypercalcemia Microalbuminuria Neck pain on right side Proteinuria of undiagnosed cause Sciatica Procedure/Surgical History Colonoscopy and biopsy of colon: 11/02/19 Colonoscopy: 04/11/11 Appendectomy Abdominal hysterectomy Cholecystectomy Medications Home Medications (3) Active bisoprolol 5 mg oral tablet 5 mg = 1 tab(s), Oral, qHS Prolia 60 mg/mL subcutaneous solution 60 mg = 1 mL, Subcutaneous, q6mo valsartan 320 mg oral tablet 320 mg = 1 tab(s), Oral, qDay Allergies alendronate (Moderate) Myalgia amLODIPine (Mild) Edema Periactin Numbness Social History Smoking Status - 03/04/2017 Current every day smoker Alcohol - Denies Alcohol Use, 03/04/2017 Use: Never., 12/04/2018 Employment/School Status: Retired., 12/04/2018 Exercise Home/Environment None Domestic Concerns:. Living situation: Home/Independent. Single level home Lives In:., 12/04/2018 Nutrition/Health Type of diet: Regular. Caffeine intake amount: 3 servings a day. Appetite Good. Eating DifficultiesNone., 02/23/2024 Substance Abuse - Denies Substance Abuse, 03/04/2017 Use: Never., 12/04/2018 Tobacco Nicotine Use: 10 or more cigarettes (1/2 pack or more)/day in last 30 days. Type: Cigarettes. Number of years: 47., 09/01/2023 Family History COPD: Mother. Respiratory disease: Father. Health Status Family Member(s) Immunizations diphtheria/tetanus/pertussis (DTaP) ped: 0 unknown unit (08/14/14) pneumococcal 13-valent conjugate vaccine: 0.5 unknown unit (03/09/19) pneumococcal 23-valent vaccine(Pneumovax: 0 unknown unit (04/11/02) pneumococcal 23-valent vaccine(Pneumovax: 0 unknown unit (03/10/02) SARS-CoV-2 (COVID-19) mRNA-1273 vaccine: 0.25 unknown unit (02/12/21) SARS-CoV-2 (COVID-19) mRNA-1273 vaccine: 0.5 unknown unit (07/26/20) SARS-CoV-2 (COVID-19) mRNA-1273 vaccine: 0.5 unknown unit (06/28/20) tetanus/diphth/pertuss (Tdap) adult/adol: 0.5 mL (08/14/14) zoster vaccine, inactivated: 1 unknown unit (08/19/20) zoster vaccine, inactivated: 1 unknown unit (04/18/20) Code Status Code Status - Ordered -- 05/13/24 17:50:00 EST, Full Code, Constant Order Digitally Signed by DANNY REYES MD on 05/13/2024 10:08 PM [id number] Note* Exam Date Time Procedure Performing Provider Status 05/13/24 5:02 PM Electrocardiogram - EKG - CV NAUN CHANDRA MD; Auth (Verified) ECG Final Report ATRIAL FIBRILLATION PROBABLE ANTERIOR INFARCT, AGE INDETERMINATE Electronic Signature: NAUN CHANDRA MD 05/14/2024 09:28:17 [facility] [id number] Evaluation + Plan noteExtracted from: Title:History and Physical Author:AYE REYES MD Date:05/13/24 New onset atrial fibrillatio n with RVR [id number] 5 points Acute hypoxic respiratory failure secondary to new onset CHF Hypertension Osteoporosis Patient presents as a transfer from [facility] for evaluation of dyspnea on exertion. Found to be in new onset atrial fibrillation with RVR, also has pulmonary edema on chest x-ray. Will diurese with IV Lasix 40 mg twice daily. Add Toprol- XL 25 mg twice daily and IV heparin for anticoagulation. Will use IV diltiazem if additional rate control is necessary. Will plan for WARREN guided cardioversion likely on Tuesday. Obtain transthoracic echocardiogram, A1c, TSH, lipid profile. Trend troponins. Addendum by ABHIJEET AGUILAR MD on May 14, 2024 01:18:55 EST I have personally seen, examined, and evaluated the patient on the encounter date. I have reviewed the fellow s documentation and agree with the fellow s findings and plan as documented, unless otherwise stated. Future Appointments Appointment Date:06/13/2024 02:45:00 PM Scheduled Provider:KIMBERLY AGUILAR Location:[facility] Appointment Type:CV OV Hospital Follow Up Appointment Date:07/19/2024 03:30:00 PM Scheduled Provider:EMILIANO LEAL DO Location:[facility] Appointment Type:PC OV Future Scheduled Tests Laboratory* Basic Metabolic Panel 05/17/24 * Calcium Level Ionized 05/17/24 * PTH, Intact 05/17/24 Radiology* MA Mammo Diagnostic Right w/ Brian 11/23/23 * US Breast Right Limited 11/23/23 [facility] 02-02-2025 Note* Exam Date Time Procedure Performing Provider Status 05/13/24 1:25 PM XR Chest 1 View ELLY WANG DO; Auth ( Verified) [id number] ORIGINAL EXAMINATION: ONE XRAY VIEW OF THE CHEST05/13/2024 1:25 pm COMPARISON: CT chest 10/21/2021 HISTORY: ORDERING SYSTEM PROVIDED HISTORY: Reason for Exam: SOB/cough/fever FINDINGS: Cardiomediastinal contours mildly enlarged with atherosclerosis present.. Atherosclerosis of the aorta. Small bilateral pleural effusions are present with adjacent bibasilar airspace opacities. Bilateral interstitial prominence is present. No visible pneumothorax. No acute osseous abnormality. Degenerative changes of the visualized osseous structures. Right upper quadrant surgical clips are noted. IMPRESSION: Findings suspicious for cardiogenic pulmonary edema with small left greater than right pleural effusions, and interstitial pulmonary edema. Bibasilar hazy airspace opacities could represent alveolar edema versus superimposed infectious process. Recommend follow-up to resolution. I have reviewed the resident's preliminary report and agree with findings and impression. Interpreted by: Elly Wang Preliminary Report By: Tin Linder Electronically signed By Elly Wang Dictated Date: 05/13/2024 1:32:15 PM Prelim Date: 05/13/2024 1:35:52 PM Sign Date: 05/13/2024 1:39:17 PM Ordering Provider: TERRIE SIMS [facility]02-02-2025 Note* Exam Date Time Procedure Performing Provider Status 05/13/24 11:49 AM EKG [ED AOH] - CV TERRIE SIMS DO; Auth (Verified) ECG Final Report Atrial fibrillation Ventricular premature complex Repolarization abnormality, prob rate related Electronic Signature: TERRIE SIMS DO 05/13/2024 12:19:29 [facility]12-02-2024 Note ORIGINAL EXAMINATION: BONE DENSITOMETRY 03/12/2024 10:45 am TECHNIQUE: A bone density dual x-ray absorptiometry (DEXA) scan was performed of the axial (e.g. hips, spine) and/or appendicular (e.g. radius) skeleton as appropriate. COMPARISON: 04/17/2021 HISTORY: ORDERING SYSTEM PROVIDED HISTORY: Reason for Exam: Osteoporosis Screening FINDINGS: T Score Left Femoral Neck: -3.0 Left Femoral Neck: 0.515 (g/cm2) T Score Left Hip: -2.8 Left Hip: 0.599 (g/cm2) T Score Lumbar Spine: -0.9 Lumbar Spine: 0.944 (g/cmd2) BMD Change from previous Hip: -5.1% BMD Change from previous Lumbar Spine: 12.1% IMPRESSION: Osteoporosis by WHO criteria. World Health Organization criteria: (Comparing with young normal sex matched population) - Normal: T-score at or above -1 SD (standard deviation) - Osteopenia: T-score between -1 and -2.5 SD - Osteoporosis: T-score at or below -2.5 SD The NOF recommends that FDA-approved medical therapies be considered in post-menopausal women and men age >/= 50 years with a: * Hip or vertebral fracture, or * T-score of /= 20% for major osteoporotic fractures or * >/= 3% for hip fractures All treatment decisions require clinical judgement and consideration of individual patient factors, including patient preferences, comorbidities, previous drug use, risk factors not captured in the FRAX registered model (e.g., frailty, falls, vitamin D deficiency, increased bone turnover, interval significant decline in bone density) and possible under- or over-estimation of fracture risk by FRAX. Interpreted by: Lauren Yang DO Preliminary Report By: Lauren Yang DO Electronically signed By Lauren Yang DO Dictated Date: 03/12/2024 12:06:14 PM Prelim Date: 03/12/2024 12:06:57 PM Sign Date: 03/12/2024 12:06:57 PM Ordering Provider: [facility]08-14-2024 Evaluation + Plan note Future Scheduled Tests Radiology* MA Mammo Diagnostic Right w/ Brian 11/23/23 * US Breast Right Limited 11/23/23 [facility] 07-13-2022 Note ORIGINAL EXAMINATION: CT OF THE CHEST WITH CONTRAST 10/21/2021 11:44 am TECHNIQUE: CT of the chest was performed with the administration of intravenous contrast. Multiplanar reformatted images are provided for review. Automated exposure control, iterative reconstruction, and/or weight based adjustment of the mA/kV was utilized to reduce the radiation dose to as low as reasonably achievable. COMPARISON: X-ray cervical spine 10/05/2021 HISTORY: ORDERING SYSTEM PROVIDED HISTORY: Reason for Exam: Nodule found on C-sine x-ray FINDINGS: Thyroid nodules measure up to 8 mm and requires no imaging follow-up. No axillary adenopathy. No mediastinal or hilar adenopathy. The heart is not enlarged. No pericardial effusion. Atherosclerotic disease shown in the aorta. Limited images of the upper abdomen demonstrate a hepatic cyst. There are additional hepatic hypodensities which are too small to accurately characterize but may also reflect cysts or hemangiomas. Patient is status post cholecystectomy. The spleen is heterogeneous with small hypodensities. A splenic granuloma noted. The trachea and mainstem bronchi are patent. There is no pleural effusion or pneumothorax. Biapical scarring. Emphysematous changes. Calcified granuloma in the right lower lobe. A 4 mm left lower lobe pulmonary nodule image 48 requires no imaging follow-up. Calcified granuloma left lung. T10 in T12 fractures are age indeterminate. The T12 fracture has mild retropulsion of the superior posterior cortex. The T10 fracture is moderate in the T12 fracture is severe. IMPRESSION: 1. No concerning pulmonary nodule. 2. Emphysema. If the patient is appropriate clinical risk, annual screening CT thorax may be useful. 3. Age-indeterminate T10 and T12 fractures would be better characterized by MRI. Interpreted by: Sari Dumont MD Preliminary Report By: Sari Dumont MD Electronically signed By Sari Dumont MD Dictated Date: 10/21/2021 7:37:06 PM Prelim Date: 10/21/2021 7:44:20 PM Sign Date: 10/21/2021 7:44:20 PM Ordering Provider: [facility]07-13-2022 Note ORIGINAL EXAMINATION: CT OF THE CHEST WITH CONTRAST 10/21/2021 11:44 am TECHNIQUE: CT of the chest was performed with the administration of intravenous contrast. Multiplanar reformatted images are provided for review. Automated exposure control, iterative reconstruction, and/or weight based adjustment of the mA/kV was utilized to reduce the radiation dose to as low as reasonably achievable. COMPARISON: X-ray cervical spine 10/05/2021 HISTORY: ORDERING SYSTEM PROVIDED HISTORY: Reason for Exam: Nodule found on C-sine x-ray FINDINGS: Thyroid nodules measure up to 8 mm and requires no imaging follow-up. No axillary adenopathy. No mediastinal or hilar adenopathy. The heart is not enlarged. No pericardial effusion. Atherosclerotic disease shown in the aorta. Limited images of the upper abdomen demonstrate a hepatic cyst. There are additional hepatic hypodensities which are too small to accurately characterize but may also reflect cysts or hemangiomas. Patient is status post cholecystectomy. The spleen is heterogeneous with small hypodensities. A splenic granuloma noted. The trachea and mainstem bronchi are patent. There is no pleural effusion or pneumothorax. Biapical scarring. Emphysematous changes. Calcified granuloma in the right lower lobe. A 4 mm left lower lobe pulmonary nodule image 48 requires no imaging follow-up. Calcified granuloma left lung. T10 in T12 fractures are age indeterminate. The T12 fracture has mild retropulsion of the superior posterior cortex. The T10 fracture is moderate in the T12 fracture is severe. IMPRESSION: 1. No concerning pulmonary nodule. 2. Emphysema. If the patient is appropriate clinical risk, annual screening CT thorax may be useful. 3. Age-indeterminate T10 and T12 fractures would be better characterized by MRI. Interpreted by: Sari Dumont MD Preliminary Report By: Sari Dumont MD Electronically signed By Sari Dumont MD Dictated Date: 10/21/2021 7:37:06 PM Prelim Date: 10/21/2021 7:44:20 PM Sign Date: 10/21/2021 7:44:20 PM Ordering Provider: [facility]2021 Hospital Discharge instructions Patient Education 02/17/2021 18:25:12 Head Injury (Adult) Head Injury (Adult) You have a head injury. It does not appear serious at this time. But symptoms of a more serious problem, such as a mild brain injury (concussion) or bruising or bleeding in the brain, may appear later. For this reason, you or someone caring for you will need to watch for the symptoms listed below. Once you re home, also be sure to follow any care instructions you re given. Home care Watch for the following symptoms Seek emergency medical care if you have any of these symptoms over the next hours to days: Headache Nausea or vomiting Dizziness Sensitivity to light or noise Unusual sleepiness or grogginess Trouble falling asleep Personality changes Vision changes Memory loss Confusion Trouble walking or clumsiness Loss of consciousness (even for a short time) Inability to be awakened Stiff neck Weakness or numbness in any part of the body Seizures General care If you were prescribed medicines for pain, use them as directed. Note: Don t take other medicines for pain without talking to your provider first. To help reduce swelling and pain, apply a cold source to the injured area for up to 20 minutes at atime. Do this as often as directed. Use a cold pack or bag of ice wrapped in a thin towel. Never apply a cold source directly to the skin. If you have cuts or scrapes as a result of your head injury, care for them as directed. For the next 24 hours (or longer, if instructed): oDon t drink alcohol or use sedatives or other medicines that make you sleepy. oDon t drive or operate machinery. oDon t do anything strenuous, such as heavy lifting or straining. oLimit tasks that require concentration. This includes reading, using a smartphone or computer, watching TV, and playing video games. oDon t return to sports or other activities that could result in another head injury. Follow-up care Follow up with your healthcare provider, or as directed. If imaging tests were done, they will be reviewed by a doctor. You will be told the results and any new findings that may affect your care. When to seek medical advice Call your healthcare provider right away if any of these occur: Pain doesn t get better or worsens New or increased swelling or bruising Fever of 100.4 F (38 C) or higher, or as directed by your provider Increased redness, warmth, drainage, or bleeding from the injured area Fluid drainage or bleeding from the nose or ears Any depression or bony abnormality in the injured area Persistent confusion or lethargy Bruising behind the ears or bruising around the eyes [id number] [employer]. [address] [place] [address], [place] [address]. All rights reserved. This information is not intended as a substitute for professional medical care. Always follow yourhealthcare professional's instructions. 02/17/2021 18:25:11 Fall, Mechanical Mechanical Fall You have had a fall today. It appears that the cause is what is called mechanical. That means that you slipped, tripped, or lost your balance. If your fall had been because of fainting or a seizure, you might need other tests. It is normal to feel sore and tight in your muscles and back the next day, and not just the musclesyou injured at first. Remember, all the parts of your body are connected, so while initially one area hurts, the next day another may hurt. Also, when you injure yourself, it causes inflammation, which then causes the muscles to tighten up and hurt more. After the initial worsening, it should gradually improve over the next few days. Do report more severe pain. Even without a definite head injury, you can still get a concussion from your head suddenly jerkingforward, backward, or sideways when falling. Concussions and even bleeding can still happen, especially if you have had a recent injury or take blood thinner medicine. It is not unusual to have a mild headache and feel tired and even nauseous or dizzy. Home care Rest today and go back to your normal activities when you are feeling back to normal. If you were injured during the fall, follow the advice from your healthcare provider regarding careof your injury. At first, do not try to stretch out the sore spots. If there is a strain, stretching may make it worse. Massage may help relax the muscles without stretching them. You can use an ice pack or cold compress on and off to the sore spots 10 to 20 minutes at a time, as often as you feel comfortable. This may help reduce the inflammation, swelling and pain. If you have any scrapes or abrasions, they usually heal within 10 days. It is important to keep theabrasions clean while they initially start to heal. However, an infection may happen even with proper care, so watch for early signs of infection (such as warmth, redness, or swelling). Medicines Talk to your healthcare provider before taking new medicines, especially if you have other medical problems or are taking other medicines. If you need anything for pain, you can take acetaminophen or ibuprofen, unless you were given a different pain medicine to use. Talk with your healthcare provider before using these medicines if you have chronic liver or kidney disease, or ever had a stomach ulcer or gastrointestinal bleeding, or are taking blood thinner medicines. Be careful if you are given prescription pain medicines, narcotics, or medicine for muscle spasm. They can make you sleepy and dizzy, and can affect your coordination, reflexes, and judgment. Do not drive or do work where you can injure yourself when taking them. Fall prevention Fix, remove, or replace anything that caused your fall. Make your home safe by keeping walkways clear of objects you may trip over. Use nonslip pads under rugs. Don't use small area rugs or throw rugs. Don't walk in poorly lit areas. Don't stand on chairs or wobbly ladders. Use caution when reaching overhead or looking upward. This position can cause a loss of balance. Be sure your shoes fit properly, have nonslip bottoms and are in good condition. Be cautious when going up and down curbs, and walking on uneven sidewalks. If your balance is poor, consider using a cane or walker. Stay as active as you can. Balance, flexibility, strength, and endurance all come from exercise. They all play a role in preventing falls. If you have pets, know where they are before you stand up or walk so you don't trip over them. Limit alcohol intake. Alcohol can cause balance problems and increase the risk of falls. Use night lights. Have your eyes tested to be sure you are seeing well, even if you already wear glasses. Follow-up Follow up with your healthcare provider, or as advised. If X-rays or CT scans were done, you will be notified if there is a change in the reading, especially if it affects treatment. Call 911 Call 911 if any of these happen: Trouble breathing Confused or difficulty arousing Fainting or loss of consciousness Rapid or very slow heart rate Seizure Difficulty with speech or vision, weakness of an arm or leg Difficulty walking or talking, loss of balance, numbness or weakness in one side of your body, or facial droop When to seek medical advice Call your healthcare provider right away if any of these happen: Repeated mechanical falls, or unexplained falls Dizziness Severe headache Blood in vomit, stools (black or red color) [id number] [employer]. [address] [place] [address], [place] [address]. All rights reserved. This information is not intended as a substitute for professional medical care. Always follow yourhealthcare professional's instructions. 02/17/2021 18:25:10 Back Sprain/Strain Back Sprain or Strain Injury to the muscles (strain) or ligaments (sprain) around the spine can be troubling. Injury may occur after a sudden forceful twisting or bending force such as in a car accident, after a simple awkward movement, or after lifting something heavy with poor body positioning. In any case, muscle spasm is often present and adds to the pain. Thankfully, most people feel better in 1 to 2 weeks, and most of the rest in 1 to 2 months. Most people can remain active. Unless you had a forceful or traumatic physical injury such as a car accident or fall, X-rays may not be ordered for the first evaluation of a back sprain or strain. If pain continues and does not respond to medical treatment, your healthcare provider may then order X-rays and other tests. Home care The following guidelines will help you care for your injury at home: When in bed, try to find a comfortable position. A firm mattress is best. Try lying flat on your back with pillows under your knees. You can also try lying on your side with your knees bent up towardyour chest and a pillow between your knees. Don't sit for long periods. Try not to take long car rides or take other trips that have you sitting for a long time. This puts more stress on the lower back than standing or walking. During the first 24 to 72 hours after an injury or flare-up, apply an ice pack to the painful area for 20 minutes. Then remove it for 20 minutes. Do this for 60 to 90 minutes, or several times a day.This will reduce swelling and pain. Be sure to wrap the ice pack in a thin towel or plastic to protect your skin. You can start with ice, then switch to heat. Heat from a hot shower, hot bath, or heating pad reduces pain and works well for muscle spasms. Put heat on the painful area for 20 minutes, then remove for 20 minutes. Do this for 60 to 90 minutes, or several times a day. Do not use a heating pad while sleeping. It can burn the skin. You can alternate the ice and heat. Talk with your healthcare provider to find out the best treatment or therapy for your back pain. Therapeutic massage will help relax the back muscles without stretching them. Be aware of safe lifting methods. Do not lift anything over 15 pounds until all of the pain is gone. Medicines Talk to your healthcare provider before using medicines, especially if you have other health problems or are taking other medicines. You may use acetaminophen or ibuprofen to control pain, unless another pain medicine was prescribed. If you have chronic conditions like diabetes, liver or kidney disease, stomach ulcers, or gastrointestinal bleeding, or are taking blood-thinner medicines, talk with your doctor before taking any medicines. Be careful if you are given prescription medicines, narcotics, or medicine for muscle spasm. They can cause drowsiness, and affect your coordination, reflexes, and judgment. Do not drive or operate heavy machinery when taking these types of medicines. Only take pain medicine as prescribed by your healthcare provider. Follow-up care Follow up with your healthcare provider, or as advised. You may need physical therapy or more testsif your symptoms get worse. If you had X-rays your healthcare provider may be checking for any broken bones, breaks, or fractures. Bruises and sprains can sometimes hurt as much as a fracture. These injuries can take time to heal completely. If your symptoms don t improve or they get worse, talk with your healthcare provider.You may need a repeat X-ray or other tests. Call 911 Call 911 if any of the following occur: Trouble breathing Confused Very drowsy or trouble awakening Fainting or loss of consciousness Rapid or very slow heart rate Loss of bowel or bladder control When to seek medical advice Call your healthcare provider right away if any of the following occur: Pain gets worse or spreads to your arms or legs Weakness or numbness in one or both arms or legs Numbness in the groin or genital area [id number] [employer]. [address] [place] [address]. All rights reserved. This information is not intended as a substitute for professional medical care. Always follow yourhealthcare professional's instructions. Follow Up Care 02/17/2021 17:39:03 With:EMILIANO LEAL DO Address: [phone] When:2-4 days [facility] Anesthesiology Consult note* CARLO GLASS DO: PERFORM, SIGN, VERIFY Event Display: Anesthesiology Consultation Authored Date: [id number] Patient: JED SEWELL Age: 83 years Sex: Female : 1940 Associated Diagnoses: None Author: CARLO GLASS DO Preoperative Information Greater than 6 hours Anesthesia history Patient's history: negative. Family's history: negative. Review of Systems Ear/Nose/Mouth/Throat: Negative except as documented in history of present illness. Respiratory: Negative except as documented in history of present illness. Cardiovascular: Negative except as documented in history of present illness. Gastrointestinal: Negative except as documented in history of present illness. Genitourinary: Negative except as documented in history of present illness. Endocrine: Negative except as documented in history of present illness. Musculoskeletal: Negative except as documented in history of present illness. Integumentary: Negative except as documented in history of present illness. Neurologic: Negative except as documented in history of present illness. Health Status Allergies: Allergic Reactions (Selected) Severity Not Documented Periactin- Numbness. Nonallergic Reactions (Selected) Moderate Alendronate- Myalgia. Mild AmLODIPine- Edema., Allergies (3) ActiveSeverityReaction alendronateModerateMyalgia amLODIPineMildEdema PeriactinNumbness Current medications: (Selected) Inpatient Medications Ordered Dextrose 50% IV Push: Start: 06/28/24 5:13:00 EDT, Dose = 25 gram(s), = 50 mL, IV Push, AsDirected,PRN, Low blood sugar, 06/28/24 5:13:00 EDT DuoNeb: Start: 06/29/24 7:01:00 EDT, Dose = 3 mL, Soln, Inhalation, TIDRT, 06/29/24 7:01:00 EDT Eliquis: Start: 06/28/24 9:00:00 EDT, Dose = 5 mg, = 1 tab(s), Oral, BID, Indication for Use Atrialfibrillation, 06/28/24 5:09:00 EDT Jardiance: Start: 06/28/24 9:00:00 EDT, Dose = 10 mg, = 1 tab(s), Oral, qAM, 06/28/24 5:09:00 EDT Lasix: Start: 06/28/24 9:00:00 EDT, Dose = 40 mg, = 4 mL, IV Push, BID, 06/28/24 7:50:00 EDT amiodarone: Start: 06/28/24 8:00:00 EDT, Dose = 200 mg, = 1 tab(s), Oral, BID, 0, 06/28/24 5:09:00 EDT hydrALAZINE: Start: 06/28/24 5:10:00 EDT, Dose = 25 mg, = 1 tab(s), Oral, TID, 06/28/24 5:10:00 EDT magnesium sulfate for IV bolus: Start: 06/28/24 5:13:00 EDT, 2 g, Dose = 50 mL, Soln, IV Piggyback,AsDirected, PRN, for Mg level 1.5-1.8 mg/dl, Rate: 25 mL/hr, Infuse over: 2 hour(s), 0, 06/28/24 5:13:00 EDT magnesium sulfate for IV bolus: Start: 06/28/24 5:13:00 EDT, 4 g, Dose = 100 mL, Soln, IV Piggyback, AsDirected, PRN, for Mg level 1.1-1.4 mg/dl, Rate: 25 mL/hr, Infuse over: 4 hour(s), 0, 06/28/24 5:13:00 EDT magnesium sulfate for IV bolus: Start: 06/28/24 5:13:00 EDT, 6 g, Dose = 12 mL, Soln, IV Piggyback,AsDirected, PRN, for Mg level 1 mg/dl or less, Rate: 41.67 mL/hr, Infuse over: 6 hour(s), 0, 06/28/24 5:13:00 EDT metoprolol succinate 50 mg oral TABLET extended release: Start: 06/28/24 10:54:00 EDT, Dose = 50 mg, = 1 tab(s), Oral, BID, 0, 06/28/24 10:54:00 EDT nitroGLYcerin for IV 50 mg [5 mcg/min] + Dextrose Premix titrate 250 mL: Start: 06/28/24 5:16:00 EDT, Starting dose: 5, mcg/min, Titrate by: 5, mcg/min, every 5, minute(s), to Goal: SBP 170, Max dose: 400, mcg/min, Rate: 1.5 mL/hr, 06/28/24 5:16:00 EDT potassium chloride bolus: Start: 06/28/24 5:13:00 EDT, Dose = 20 mEq, = 100 mL, IV Piggyback, AsDirected, PRN, for K+ level 2.5 - 2.9 mEq/dL, Rate: 50 mL/hr, Infuse over: 2 hour(s), 0, 06/28/24 5:13:00 EDT potassium chloride: Start: 06/28/24 5:13:00 EDT, Dose = 20 mEq, = 1 tab(s), Oral, AsDirected, PRN, for K+ level 3.5 - 3.9 mEq/L, 06/28/24 5:13:00 EDT potassium chloride: Start: 06/28/24 5:13:00 EDT, Dose = 40 mEq, = 2 tab(s), Oral, AsDirected, PRN, for K+ level 2.5 - 2.9 mEq/dL, 06/28/24 5:13:00 EDT potassium chloride: Start: 06/28/24 5:13:00 EDT, Dose = 40 mEq, = 2 tab(s), Oral, AsDirected, PRN, for K+ level 3-3.4 mEq/L, 06/28/24 5:13:00 EDT Prescriptions Prescribed Cardizem CD 240 mg/24 hours oral capsule, extended release: Dose : 240 mg = 1 cap(s), Oral, qDay, #90 cap(s), 3 Refill(s), Pharmacy: [facility], 160, cm, 06/13/24 13:57:00 EST, Height, kg, 06/13/24 13:57:00 EST, Dosing Weight Eliquis 5 mg oral tablet: Dose : 5 mg = 1 tab(s), Oral, BID, # 180 tab(s), 3 Refill(s), Pharmacy: [facility], 160, cm, 06/19/24 6:42:00 EDT, Height, 61.3, kg, 06/19/24 6:42:00 EDT, Dosing Weight Jardiance 10 mg oral tablet: Dose : 10 mg = 1 tab(s), Oral, qAM, # 90 tab(s), 3 Refill(s), Pharmacy: [facility], 160, cm, 06/13/24 13:57:00 EST, Height, kg, 06/13/24 13:57:00 EST, Dosing Weight Prolia 60 mg/mL subcutaneous solution: Dose : 60 mg = 1 mL, Subcutaneous, q6mo, # 1 mL, 0 Refill(s), Osteoporosis, 158, cm, 02/23/24 10:19:00 EST, Height, kg, 02/23/24 10:19:00 EST, Dosing Weight amiodarone 200 mg oral tablet: Dose : 200 mg = 1 tab(s), Oral, qDay, # 90 tab(s), 3 Refill(s), Pharmacy: [facility], 160, cm, 06/13/24 13:57:00 EST, Height, kg, 06/13/24 13:57:00 EST, Dosing Weight bumetanide 1 mg oral tablet: Dose : 1 mg = 1 tab(s), Oral, BID, # 180 tab(s), 3 Refill(s), Pharmacy: [facility], 160, cm, 06/13/24 13:57:00 EST, Height, kg, 06/13/24 13:57:00 EST, Dosing Weight potassium chloride 20 mEq oral tablet, extended release: Dose : 20 mEq = 1 tab(s), Oral, qDay, Takewith food, # 30 tab(s), 3 Refill(s), Pharmacy: [facility], 160, cm, 256:42:00 EDT, Height, kg, 06/19/24 6:42:00 EDT, Dosing Weight, Medications (16) Active Scheduled: (7) albuterol - ipratropium 2.5 mg-0.5 mg/3 mL Inhal Germaine UD 3 mL, Inhalation, TIDRT amiodarone 200 mg tablet 200 mg 1 tab(s), Oral, BID apixaban 5 mg tablet 5 mg 1 tab(s), Oral, BID empagliflozin 10 mg tablet 10 mg 1 tab(s), Oral, qAM furosemide 40 mg/4 mL vial 40 mg 4 mL, IV Push, BID hydralazine 25 mg Tablet 25 mg 1 tab(s), Oral, TID metoprolol succinate 50 mg ER tablet 50 mg 1 tab(s), Oral, BID Continuous: (1) nitroglycerin 50 mg/250 mL D5W 50 mg [5 mcg/min] + Dextrose 5% Premix Diluent 250 mL 250 mL, Intravenous, 1.5 mL/hr PRN: (8) dextrose 50% Solution Disp syringe 50 mL 25 gram(s) 50 mL, IV Push, AsDirected magnesium sulfate 4 gram(s)/100mL PMX 4 g 100 mL, IV Piggyback, AsDirected magnesium sulfate 50% (500mg/mL) 6 g 12 mL, IV Piggyback, AsDirected magnesium sulfate PMX 2 g 50 mL, IV Piggyback, AsDirected potassium chloride (PMX) 20 mEq/100 mL 20 mEq 100 mL, IV Piggyback, AsDirected potassium chloride 20 mEq ER tablet 20 mEq 1 tab(s), Oral, AsDirected potassium chloride 20 mEq ER tablet 40 mEq 2 tab(s), Oral, AsDirected potassium chloride 20 mEq ER tablet 40 mEq 2 tab(s), Oral, AsDirected Problem list: Medical Atrial fibrillation / SNOMED CT [id number] / Confirmed Chronic renal failure, stage 3 (moderate) / SNOMED CT 861618026 / Confirmed HFrEF (heart failure with reduced ejection fraction) / SNOMED CT 4953022702 / Confirmed HTN (hypertension) / SNOMED CT [id number] / Confirmed Serum calcium elevated / SNOMED CT [id number] / Confirmed Osteoporosis / SNOMED CT 140453288 / Confirmed, Active Problems (10) Atrial fibrillation Chronic renal failure, stage 3 (moderate) HFrEF (heart failure with reduced ejection fraction) HTN (hypertension) VT (myocardial infarction) Mitral regurgitation Osteoporosis Serum calcium elevated Shortness of breath Tobacco use Histories Past Medical History: Active HTN (hypertension) ([id number]) Resolved Sciatica ([id number]): Resolved. Microalbuminuria ([id number]): Resolved. DDD (degenerative disc disease), lumbar ([id number]): Resolved. Neck pain on right side ([id number]): Resolved. Hypercalcemia ([id number]): Resolved. Proteinuria of undiagnosed cause ([id number]): Resolved. Acute bronchitis due to infection ([id number]): Resolved. Family History: Respiratory disease Father COPD Mother Procedure history: Colonoscopy and biopsy of colon ([id number]) on 11/02/2019 at 78 Years. Colonoscopy ([id number]) on 04/11/2011 at 70 Years. Ovarian cyst ([id number]). Appendectomy ([id number]). Cholecystectomy ([id number]). Abdominal hysterectomy ([id number]). Social History: Social & Psychosocial Habits Alcohol 06/19/2024Risk Assessment: Denies Alcohol Use 06/19/2024 Use: Never Employment/School 06/11/2024 Status: Retired Substance Abuse 06/19/2024Risk Assessment: Denies Substance Abuse 06/19/2024 Use: Never Tobacco 06/19/2024 Tobacco Use: Former smoker, quit more, quit 05/13/24 Type: Cigarettes Number of years: 45 Exercise Comment: none - 12/04/2018 11:18 - Aidee Boyer LPN Home/Environment 06/19/2024 Domestic Concerns None Living situation: Home/Independent Lives In Single level home Nutrition/Health 06/19/2024 Type of diet: Regular Appetite Good Eating Difficulties None Caffeine intake amount: decaf coffee Physical Examination General: Alert and oriented. Airway: Normal temporomandibular joint mobility, Normal mouth, Normal throat, Normal neck range of motion, Trachea midline. Mallampati classification: II (soft palate, fauces, uvula visible). Head: Normocephalic. Dentition Evaluation: Intact, Own teeth, Denies loose/chipped teeth. Neck: Supple. Respiratory: Lungs are clear to auscultation, Respirations are non-labored. Cardiovascular: Normal rate, No murmur. Heart Sounds: Normal. Gastrointestinal: Soft. Musculoskeletal Normal range of motion. Integumentary: Intact, Warm, Dry. Neurologic: Alert, Oriented. Review / Management Results review: Lab results 06/29/2024 8:10 EDT Respiratory Rate 20 br/min Systolic Blood Pressure Non-Invasive 146 mmHg HI Diastolic Blood Pressure Non-Invasive 90 mmHg HI Blood Pressure Method Manual Blood Pressure Location Right arm Blood Pressure Cuff Size Medium Nail Bed Color [place] Capillary Refill < 2 seconds Dorsalis Pedis Pulse, Left 1+ Thready Dorsalis Pedis Pulse, Right 1+ Thready Radial Pulse, Left 2+ Normal Radial Pulse, Right 2+ Normal Respirations Unlabored Breath Sounds Auscultated Anterior and posterior Left Upper Lobe Breath Sounds Fine crackles Left Lower Lobe Breath Sounds Fine crackles Right Upper Lobe Breath Sounds Diminished Right Middle Lobe Breath Sounds Fine crackles Right Lower Lobe Breath Sounds Diminished All Lobes Breath Sounds Expiratory wheeze Patient Participation in Treatment Cooperative Cough and Deep Breathe Done Cough None Oxygen Therapy Nasal cannula 0L-6L Oxygen Saturation 94 % Oxygen Flow Rate 4 L/min Tracheal Position Midline Abdomen Description Non-distended Abdomen Palpation Non-Tender Passing Flatus Yes Bowel Movement Last Date 06/27/2024 Bowel Continence No bowel movement Swallowing Disorder None Bowel Sounds All Quadrants Present Urinary Elimination Voiding, no difficulties, Urinary catheter draining Urine Color Yellow Urine Description Medium amount Urinary Elimination Devices External catheter All Extremity Description [place], Normal for ethnicity Temperature All Extremities Warm Neurological Language Able to speak clearly Neurological Symptoms Patient denies Characteristics of Communication Appropriate Level of Consciousness Alert Eye Opening Response Ignacia Spontaneously Best Motor Response Ignacia Obeys simple commands Best Verbal Response Ignacia Oriented SEDA Yes Left Pupil Reaction Brisk Right Pupil Reaction Brisk Pupil Size, Left 3 mm Pupil Size, Right 3 mm Strength All Extremities Moderate Left Upper Extremity Sensation Intact Right Upper Extremity Sensation Intact Left Lower Extremity Sensation Intact Right Lower Extremity Sensation Intact Affect/Behavior Appropriate, Calm, Cooperative Orientation Oriented x 4 Orientation Assessment Oriented x 4 Eating Difficulties None 06/29/2024 7:53 EDT Notify date/time 06/29/2024 7:53 Provider Notified ISAURA JACKSON MD Notification Method Phone Information Communicated Nurse communication Details Communicated patient's creatinine is 1.42 today and it was 1.28 yesterday, do you still want lasix given? Notification Outcome Orders received Person Reporting Result(s) O Maria RN Details of Results Received Hold until I evaluate. 06/29/2024 7:43 EDT Cardiac EP Progress Note Progress Note 06/29/2024 7:36 EDT Temperature Oral 36.4 DegC Heart Rate Monitored 78 bpm Respiratory Rate 17 br/min Systolic Blood Pressure Non-Invasive 151 mmHg HI Diastolic Blood Pressure Non-Invasive 97 mmHg HI Mean Arterial Pressure (NBP) 110 mmHg Blood Pressure Method Automatic Blood Pressure Location Right arm Blood Pressure Cuff Size Medium Reason For Taking VItal Signs Routine Oxygen Therapy Nasal cannula 0L-6L Oxygen Saturation 93 % Oxygen Flow Rate 4 L/min External Female external catheter 06/28/2024 Urinary Catheter Activity: Changed Urinary Catheter Site Condition: No complications Urinary Catheter Care Completed: Yes Assistive Device Walker Positioning Repositioned back Mobility Assistance Level One assist Activity Status ADL Awake Beds/Devices Hospital bed Activity Assistance One assist Standard Safety ID band on, Allergy Band on, Call device within reach, Bed in low position, Wheels locked, Upper/Half-Length side-rails up, Phone within reach, personal items within reach, Assistive devices within reach, Non-Slip footwear High Risk Safety Non-Slip footwear, Room check performed Demonstrates Correct Call Light Use Yes 06/29/2024 7:09 EDT albuterol-ipratropium 3 mL mL 06/29/2024 7:08 EDT Peripheral Pulse Rate 79 bpm Respiratory Rate 17 br/min Respirations Unlabored Breath Sounds Auscultated Anterior only All Lobes Breath Sounds Expiratory wheeze Patient Effort Good Patient Participation in Treatment Cooperative Aerosol Delivery Device Small volume nebulizer Aerosol Treatment Route Mouth piece Cough and Deep Breathe Done Spontaneous Cough No Oxygen Saturation 97 % Respiratory Treatment Charge Aerosol treatment Level of Consciousness Alert 06/29/2024 6:50 EDT Telemetry Telemetry 06/29/2024 5:05 EDT Mechanical VTE Prophylaxis Education Not Done: See ICU flow (Not Done) Sequential Compression Device Not Done: See ICU flow (Not Done) Sequential Compression Device Form Not Done (Not Done) 06/29/2024 4:30 EDT WBC 11.0 10^3/mcL HI RBC 4.27 10^6/mcL Hgb 13.2 G/dL Hct 37.7 % MCV 88.3 fL MCH 30.9 pg MCHC 35.0 G/dL RDW 15.0 % Platelet 342 10^3/mcL MPV 7.3 fL Neutrophil % 79.4 % HI Lymphocyte % 9.6 % LOW Monocyte % 7.9 % Eosinophil % 2.2 % Basophil % 0.9 % Neutrophil, Absolute 8.7 10^3/mcL HI Lymphocyte, Absolute 1.1 10^3/mcL Monocyte, Absolute 0.9 10^3/mcL Eosinophil, Absolute 0.2 10^3/mcL Basophil, Absolute 0.1 10^3/mcL Glucose Level 83 mg/dL Sodium Level 139 mEq/L Potassium Level 3.3 mEq/L LOW Chloride 98 mEq/L CO2 34 mEq/L HI Electrolyte Balance 7.0 mEq/L BUN 29.0 mg/dL HI Creatinine Lvl (s) 1.42 mg/dL HI Estimated Glomerular Filtration Rate 37 ml/min/1.73sqm NA BUN/Creatinine Ratio 20.4 ratio Calcium Lvl 9.5 mg/dL Magnesium Lvl 2.2 mg/dL Creatinine Clearance Calc 28.80 mL/min 06/29/2024 4:21 EDT Temperature Oral 36.3 DegC Heart Rate Monitored 73 bpm Respiratory Rate 18 br/min Systolic Blood Pressure Non-Invasive 145 mmHg HI Diastolic Blood Pressure Non-Invasive 93 mmHg HI Blood Pressure Method Automatic Blood Pressure Location Right arm Blood Pressure Cuff Size Medium Reason For Taking VItal Signs Routine Primary Pain Intensity 0 Primary Pain Nonverbal Response Nods No Pain Scale Type 0-10 Pain scale Monitor Alarms On and Limits Checked Cardiovascular Symptoms Edema Nail Bed Color [place] Capillary Refill < 2 seconds Heart Sounds ICU S1S2 Heart Rhythm Irregular Dorsalis Pedis Pulse, Left 1+ Thready Dorsalis Pedis Pulse, Right 1+ Thready Radial Pulse, Left 2+ Normal Radial Pulse, Right 2+ Normal Ankle edema Bilateral Edema Ratin+ trace/2mm Cardiac Rhythm Atrial fibrillation Monitoring Lead III, V1/MCL1 QRS Duration 0.10 second(s) Alarms On and Functional Yes Heart Rate Alarm Set At - Low 50 Heart Rate Alarm Set At - High 120 Respirations Unlabored Respiratory Pattern Regular Breath Sounds Auscultated Anterior and posterior Left Upper Lobe Breath Sounds Fine crackles Left Lower Lobe Breath Sounds Fine crackles Right Upper Lobe Breath Sounds Diminished Right Middle Lobe Breath Sounds Fine crackles Right Lower Lobe Breath Sounds Diminished All Lobes Breath Sounds detailed lung assessment Cough and Deep Breathe Done Cough None Oxygen Therapy Nasal cannula 0L-6L Oxygen Saturation 95 % Oxygen Flow Rate 4 L/min Tracheal Position Midline Abdomen Description Non-distended, Soft Abdomen Palpation Non-Tender, Soft Passing Flatus Yes Bowel Continence No bowel movement Swallowing Disorder None Bowel Sounds All Quadrants Present Urinary Elimination Urinary catheter draining External Female external catheter 06/28/2024 Urinary Catheter Activity: Assessed Urinary Catheter Site Condition: No complications Facial Movement Symmetric resting/crying Skin Description Normal for ethnicity, Dry Skin Temperature Warm Skin Integrity Pressure points intact Skin Turgor Non-Elastic Skin Symptoms Bruising All Extremity Description Normal for ethnicity Temperature All Extremities Warm Mucous Membrane Color [place] Mucous Membrane Description Moist Sensory Perception Jose Slightly limited Moisture Jose Occasionally moist Activity Jose Walks occasionally Mobility Jose Slightly limited Nutrition Jose Adequate Friction and Shear Jose No apparent problem Jose Score 18 Hospital Acquired Pressure Injury Risk Low risk (score 15-18) Continuous IV Infusions adapted Antecubital Right 20 gauge Peripheral IV Activity: Assessed Peripheral IV Dressing Condition: Clean, Dry, Intact Peripheral IV Dressing Activity: Transparent dressing Peripheral IV Line Status/Patency: Flushes easily Peripheral IV Site Condition: No complications Peripheral IV Equipment: PRN Adaptor Antecubital Left 20 gauge Peripheral IV Activity: Assessed Peripheral IV Dressing Condition: Clean, Dry, Intact Peripheral IV Dressing Activity: Transparent dressing Peripheral IV Line Status/Patency: Flushes easily Peripheral IV Site Condition: Ecchymotic Peripheral IV Equipment: PRN Adaptor Neurological Language Able to speak clearly Neurological Symptoms Fatigue Gait Unable to assess Extremity Movement Equal Swallowing Difficulty None Characteristics of Communication Appropriate Characteristics of Speech Clear Facial Symmetry Symmetric Level of Consciousness Alert Aspiration Risk None Eye Opening Response Asher Spontaneously Best Motor Response Asher Obeys simple commands Best Verbal Response Asher Oriented Ignacia Coma Score 15 SEDA Yes Left Pupil Description Regular, Round Right Pupil Description Regular, Round Left Pupil Reaction Brisk Right Pupil Reaction Brisk Pupil Size, Left 3 mm Pupil Size, Right 3 mm Strength All Extremities Moderate Left Upper Extremity Sensation Intact Right Upper Extremity Sensation Intact Left Lower Extremity Sensation Intact Right Lower Extremity Sensation Intact CN VII Facial Expression and Symmetry Facial movement symmetrical CN VIII Hearing Spoken word equally audible left/right CN IX, X Swallowing, Gag Reflex Swallowing present Romero Screen Daily History of Fall in Last 3 Months Romero No Presence of Secondary Diagnosis Romero Yes Use of Ambulatory Aid Romero Crutches, cane, walker IV/PRN Adapter Fall Risk Romero Yes Gait Weak or Impaired Fall Risk Romero Normal, bedrest, immobile Mental Status Fall Risk Romero Oriented to own ability Romero Fall Risk Score 50 HI Violence Risk Confused No Violence Risk Irritable No Violence Risk Boisterous No Violence Risk Verbal Threats No Violence Risk Physical Threats No Violence Risk Attacking Objects No Violence Risk Predictor Score 0 Violence Risk Intervention None Violence Risk Current Interventions None Affect/Behavior Appropriate, Calm, Cooperative Orientation Oriented x 4 BMAT Existing Patient Condition/Safety No order for Strict Bedrest BMAT Level 1: Sit and Shake Sit, side bed/reach midline/shake hands BMAT Level 2: Stretch and Point Seated position, straighten 1 knee; Flex ankle & point toes BMAT Level 3: Stand Patient unable BMAT Mobility Level 2 Orientation Assessment Oriented x 4 Assistive Device Walker Positioning Repositions self Mobility Assistance Level One assist Activity Status ADL Lights dimmed, Resting Beds/Devices Hospital bed Activity Assistance One assist Nurse Safety Checks q2hrs Performed Other: 3a-3p Standard Safety ID band on, Call device within reach, Bed in low position, Wheels locked, Upper/Half-Length side-rails up, Phone within reach, personal items within reach, Assistive devices within reach High Risk Safety Door open, Room check performed Demonstrates Correct Call Light Use Yes RN Coordination of Care Other: 3a-3p Eating Difficulties None Eating Difficulties None 06/29/2024 3:13 EDT Telemetry Telemetry 06/29/2024 2:23 EDT Standard Safety Safety level maintained High Risk Safety Room check performed 06/29/2024 1:08 EDT Mechanical VTE Prophylaxis Education Not Done: Not Appropriate at this Time (NotDone) Sequential Compression Device Not Done: Not Appropriate at this Time (Not Done) Sequential Compression Device Form Not Done (Not Done) 06/29/2024 0:32 EDT Standard Safety Safety level maintained High Risk Safety Room check performed 06/28/2024 23:04 EDT Telemetry Telemetry 06/28/2024 22:51 EDT Systolic Blood Pressure Non-Invasive 148 mmHg HI Diastolic Blood Pressure Non-Invasive 75 mmHg apixaban 5 mg mg hydrALAZINE 25 mg mg 06/28/2024 22:41 EDT Temperature Oral 36.3 DegC Peripheral Pulse Rate 88 bpm Respiratory Rate 20 br/min Systolic Blood Pressure Non-Invasive 148 mmHg HI Diastolic Blood Pressure Non-Invasive 75 mmHg Blood Pressure Method Automatic Blood Pressure Location Right arm Blood Pressure Cuff Size Medium Reason For Taking VItal Signs Routine Primary Pain Intensity 0 Primary Pain Nonverbal Response Nods No Pain Scale Type 0-10 Pain scale Cardiovascular Symptoms Edema Nail Bed Color [place] Capillary Refill < 2 seconds Heart Sounds ICU S1S2 Heart Rhythm Irregular Dorsalis Pedis Pulse, Left 1+ Thready Dorsalis Pedis Pulse, Right 1+ Thready Radial Pulse, Left 2+ Normal Radial Pulse, Right 2+ Normal Ankle edema Bilateral Edema Ratin+ trace/2mm Cardiac Rhythm Atrial fibrillation Monitoring Lead III, V1/MCL1 QRS Duration 0.10 second(s) Alarms On and Functional Yes Heart Rate Alarm Set At - Low 50 Heart Rate Alarm Set At - High 120 Respirations Unlabored Respiratory Pattern Regular Breath Sounds Auscultated Anterior and posterior Left Upper Lobe Breath Sounds Fine crackles Left Lower Lobe Breath Sounds Fine crackles Right Upper Lobe Breath Sounds Diminished Right Middle Lobe Breath Sounds Fine crackles Right Lower Lobe Breath Sounds Diminished All Lobes Breath Sounds detailed lung assessment Cough None Oxygen Therapy Nasal cannula 0L-6L Oxygen Saturation 96 % Oxygen Flow Rate 4 L/min Tracheal Position Midline Abdomen Description Non-distended, Symmetric, Soft Abdomen Palpation Non-Tender Bowel Continence No bowel movement Swallowing Disorder None Bowel Sounds All Quadrants Present Tolerating Oral Intake Yes Urinary Elimination Urinary catheter draining Urine Color Yellow Urine Description Medium amount External Female external catheter 06/28/2024 Urinary Catheter Activity: Assessed Urinary Catheter Site Condition: No complications Urinary Catheter Output: 500 mL Urinary Catheter Care Completed: Yes Facial Movement Makes facial grimaces, Symmetric resting/crying Skin Description [place], Normal for ethnicity, Dry Skin Temperature Warm Skin Integrity Pressure points intact Skin Turgor Non-Elastic Skin Symptoms Bruising All Extremity Description [place], Normal for ethnicity Temperature All Extremities Warm Mucous Membrane Color [place] Mucous Membrane Description Moist Antecubital Right 20 gauge Peripheral IV Activity: Assessed Peripheral IV Dressing Condition: Clean, Dry, Intact Peripheral IV Dressing Activity: Transparent dressing Peripheral IV Line Status/Patency: Flushes easily, 10ml normal saline flush, Good blood return Peripheral IV Site Condition: No complications Peripheral IV Equipment: PRN Adaptor Antecubital Left 20 gauge Peripheral IV Activity: Assessed Peripheral IV Dressing Condition: Clean, Dry, Intact Peripheral IV Dressing Activity: Transparent dressing Peripheral IV Line Status/Patency: Flushes easily, 10ml normal saline flush, No blood return Peripheral IV Site Condition: Ecchymotic Peripheral IV Equipment: PRN Adaptor Neurological Language Able to speak clearly, Follows simple commands Neurological Symptoms Fatigue Gait Unable to assess Extremity Movement Equal Swallowing Difficulty None Characteristics of Communication Appropriate Characteristics of Speech Clear Facial Symmetry Symmetric Level of Consciousness Alert Aspiration Risk None SEDA Yes Left Pupil Description Regular, Round Right Pupil Description Regular, Round Left Pupil Reaction Brisk Right Pupil Reaction Brisk Pupil Size, Left 3 mm Pupil Size, Right 3 mm Strength All Extremities Moderate Left Upper Extremity Sensation Intact Right Upper Extremity Sensation Intact Left Lower Extremity Sensation Intact Right Lower Extremity Sensation Intact CN V Facial Sensation Corneal reflex present, Light touch equal bilaterally CN VII Facial Expression and Symmetry Facial movement symmetrical CN VIII Hearing Spoken word equally audible left/right CN IX, X Swallowing, Gag Reflex Swallowing present Affect/Behavior Appropriate, Calm, Cooperative Orientation Oriented x 4 Orientation Assessment Oriented x 4 Assistive Device Walker Positioning Repositions self Mobility Assistance Level One assist Activity Status ADL Lights dimmed, Resting Beds/Devices Hospital bed Activity Assistance One assist Standard Safety ID band on, Allergy Band on, Call device within reach, Bed in low position, Wheels locked, Upper/Half-Length side-rails up, Phone within reach, personal items within reach, Hazards removed from floor, Non-Slip footwear, Precautions maintained High Risk Safety Identified as high risk, Door open, Bathroom light on, Non-Slip footwear, Room check performed Demonstrates Correct Call Light Use Yes Adaptive Feeding Equipment None Eating Difficulties None 06/28/2024 21:18 EDT Mechanical VTE Prophylaxis Education Not Done: See ICU flow (Not Done) Sequential Compression Device Not Done: See ICU flow (Not Done) Sequential Compression Device Form Not Done (Not Done) 06/28/2024 20:34 EDT Pulmonary Status Not Done: Task Duplication (Not Done) Surgical Status Not Done: Task Duplication (Not Done) Chest X-Ray Not Done: Task Duplication (Not Done) Respiratory Pattern (RT) Not Done: Task Duplication (Not Done) Breath Sounds (RT) Not Done: Task Duplication (Not Done) Cough (RT) Not Done: Task Duplication (Not Done) Level of Activity Not Done: Task Duplication (Not Done) Mental Status (RT) Not Done: Task Duplication (Not Done) Respiratory Therapy Evaluation Score Not Done: Task Duplication (Not Done) RT Assessment [Frequency/Schedule] Not Done: Task Duplication (Not Done) RT Evaluation Steps Not Done: Task Duplication (Not Done) 06/28/2024 20:09 EDT Ed-Medication Side Effects Done Edu-Med Generic/Brand Name,Purpose,Action Done Ed-Equipment for Patient Care Done 06/28/2024 19:51 EDT Pulmonary Status Smoking history, quit >1 year ago Surgical Status No surgery Chest X-Ray Infiltrates or atelectasis in one lobe Respiratory Pattern (RT) RR 21-25 BPM, Tachypnea Breath Sounds (RT) Expiratory wheezes Cough (RT) Strong, non-productive Level of Activity Ambulatory Mental Status (RT) Alert, oriented and cooperative Respiratory Therapy Evaluation Score 7 Respiratory Evaluation Triage Score (6-10) Freq: TIDRT & Albuterol Q2hRT prn RT Assessment [Frequency/Schedule] Triage score 6-10, change frequency to TIDRT and Albuterol Q RT Evaluation Steps Chart review completed, Assessment completed: RR, HR, Auscultation, Cough, Patient Interview completed Respiratory Therapy Progress Note Respiratory Therapy Evaluation 06/28/2024 19:50 EDT Peripheral Pulse Rate 84 bpm Respiratory Rate 22 br/min HI Respirations Unlabored Breath Sounds Auscultated Anterior only All Lobes Breath Sounds Expiratory wheeze Patient Effort Good Patient Participation in Treatment Cooperative Aerosol Delivery Device Small volume nebulizer Aerosol Treatment Route Aerosol mask Cough and Deep Breathe Done Spontaneous Cough Yes Oxygen Saturation 97 % Respiratory Treatment Charge Aerosol treatment Level of Consciousness Alert 06/28/2024 19:38 EDT Notify date/time 06/28/2024 19:38 Provider Notified ISAURA JACKSON MD Notification Method Phone Information Communicated Nurse communication Details Communicated Cristopher is very wheezy and having SOB, she does not currently have any breathing tx on. Please advise Notification Outcome Orders received Person Reporting Result(s) Noe JAIMES RN Details of Results Received I will place orders for breathing tx. Please call respiratory albuterol-ipratropium 3 mL mL 06/28/2024 19:04 EDT Telemetry Telemetry 06/28/2024 19:02 EDT Belongings At Bedside Pants, Shirt, Shoes, Socks, Undergarments 06/28/2024 18:55 EDT Apical Heart Rate 88 bpm metoprolol 50 mg mg 06/28/2024 18:46 EDT Temperature Oral 37 DegC Heart Rate Monitored 81 bpm Respiratory Rate 22 br/min HI Systolic Blood Pressure Non-Invasive 160 mmHg HI Diastolic Blood Pressure Non-Invasive 73 mmHg Blood Pressure Method Automatic Blood Pressure Location Right arm Blood Pressure Cuff Size Medium Reason For Taking VItal Signs Routine Primary Pain Intensity 0 Primary Pain Nonverbal Response Nods No Pain Scale Type 0-10 Pain scale Cardiovascular Symptoms Edema Nail Bed Color [place] Capillary Refill < 2 seconds Heart Sounds ICU S1S2 Heart Rhythm Irregular Dorsalis Pedis Pulse, Left 2+ Normal Dorsalis Pedis Pulse, Right 2+ Normal Radial Pulse, Left 2+ Normal Radial Pulse, Right 2+ Normal Ankle edema Bilateral Edema Ratin+ trace/2mm Cardiac Rhythm Atrial fibrillation Monitoring Lead III, V1/MCL1 QRS Duration 0.09 second(s) Alarms On and Functional Yes Heart Rate Alarm Set At - Low 50 Heart Rate Alarm Set At - High 120 Respiratory Symptoms Shortness of breath Respirations Unlabored Respiratory Pattern Regular Breath Sounds Auscultated Anterior and posterior Left Upper Lobe Breath Sounds Expiratory wheeze Left Lower Lobe Breath Sounds Expiratory wheeze Right Upper Lobe Breath Sounds Expiratory wheeze Right Middle Lobe Breath Sounds Diminished Right Lower Lobe Breath Sounds Fine crackles All Lobes Breath Sounds detailed lung assessment Cough and Deep Breathe Done Cough Dry Oxygen Therapy Nasal cannula 0L-6L Oxygen Saturation 97 % Oxygen Flow Rate 4 L/min Tracheal Position Midline Tolerating Oral Intake Yes Urinary Elimination Urinary catheter draining Urine Color Yellow Urine Description Small amount External Female external catheter 06/28/2024 Urinary Catheter Activity: Assessed Urinary Catheter Site Condition: No complications Facial Movement Makes facial grimaces, Symmetric resting/crying Skin Description [place], Normal for ethnicity, Dry Skin Temperature Warm Skin Integrity Pressure points intact Skin Turgor Non-Elastic Skin Symptoms Bruising All Extremity Description [place], Normal for ethnicity Temperature All Extremities Warm Mucous Membrane Color [place] Mucous Membrane Description Moist Antecubital Right 20 gauge Peripheral IV Activity: Assessed Peripheral IV Dressing Condition: Clean, Dry, Intact Peripheral IV Dressing Activity: Transparent dressing Peripheral IV Line Status/Patency: Flushes easily, 10ml normal saline flush Peripheral IV Site Condition: No complications Peripheral IV Equipment: PRN Adaptor Antecubital Left 20 gauge Peripheral IV Activity: Assessed Peripheral IV Dressing Condition: Clean, Dry, Intact Peripheral IV Dressing Activity: Transparent dressing Peripheral IV Line Status/Patency: Flushes easily, 10ml normal saline flush, Good blood return Peripheral IV Site Condition: No complications Peripheral IV Equipment: PRN Adaptor Neurological Language Able to speak clearly, Follows simple commands Neurological Symptoms Fatigue Gait Unable to assess Extremity Movement Equal Swallowing Difficulty None Characteristics of Communication Appropriate Characteristics of Speech Clear Facial Symmetry Symmetric Level of Consciousness Alert Aspiration Risk None SEDA Yes Left Pupil Description Regular, Round Right Pupil Description Regular, Round Left Pupil Reaction Brisk Right Pupil Reaction Brisk Pupil Size, Left 3 mm Pupil Size, Right 3 mm Strength All Extremities Moderate Left Upper Extremity Sensation Intact Right Upper Extremity Sensation Intact Left Lower Extremity Sensation Intact Right Lower Extremity Sensation Intact CN V Facial Sensation Corneal reflex present, Light touch equal bilaterally CN VII Facial Expression and Symmetry Facial movement symmetrical CN VIII Hearing Spoken word equally audible left/right CN IX, X Swallowing, Gag Reflex Swallowing present Affect/Behavior Appropriate, Calm, Cooperative Orientation Oriented x 4 Orientation Assessment Oriented x 4 Assistive Device Walker Positioning Repositions self Mobility Assistance Level One assist Activity Status ADL Lights dimmed, Resting Beds/Devices Hospital bed Activity Assistance One assist Dinner Percent 80 % Standard Safety ID band on, Allergy Band on, Call device within reach, Bed in low position, Wheels locked, Upper/Half-Length side-rails up, Phone within reach, personal items within reach, Hazards removed from floor, Non-Slip footwear, Precautions maintained High Risk Safety Identified as high risk, Room located near nursing station, Bed alert on, Door open, Bathroom light on, Non-Slip footwear, Room check performed Demonstrates Correct Call Light Use Yes Adaptive Feeding Equipment None Appetite Good Eating Difficulties None 06/28/2024 17:28 EDT Post Rehab Outcome Not Done: See ICU flow (Not Done) Mechanical VTE Prophylaxis Education Not Done: See ICU flow (Not Done) Sequential Compression Device Not Done: See ICU flow (Not Done) Cardiac Rehab - Phase I Not Done (Not Done) Sequential Compression Device Form Not Done (Not Done) 06/28/2024 16:47 EDT Skin Assessment Verification Admission 06/28/2024 15:39 EDT Telemetry Telemetry 06/28/2024 15:30 EDT Individuals Taught Patient Learning Readiness Willing to learn Barriers to Learning None evident Teaching Method Explanation Preferred Spoken Language [place] Preferred Written Language [place] Disease Process General Education Signs/Symptoms to report, Signs/Symptoms of complications Equipment Education monitor worker, Urinary catheter care, Oxygen, Walker Patient Care Education Activity limitations/expectations Teaching Evaluation Verbalizes/Nonverbally indicates understanding Heart Failure Education Time 15 minute(s) Heart Failure Risk Factor Education Atrial fibrillation Heart Failure Symptom Monitoring Plan Activity as tolerated, Intake & output while in hospital Heart Failure Medication Education Diuretics, Precautions, Side effects, Importance of compliance Heart Failure Teaching Evaluation Verbalizes/Nonverbally indicates understanding Safety Measures Education Fall prevention, Call light use, Ambulation device use, Non-slip footwearuse, Bleeding precautions Safety Teaching Evaluation Verbalizes/Nonverbally indicates understanding 06/28/2024 15:29 EDT Electrocardiogram - EKG - CV Ordered (In Progress) 06/28/2024 15:25 EDT Systolic Blood Pressure Non-Invasive 161 mmHg HI Diastolic Blood Pressure Non-Invasive 129 mmHg >HHI Blood Pressure Method Automatic Blood Pressure Location Right arm Blood Pressure Cuff Size Medium Reason For Taking VItal Signs Routine Primary Pain Intensity 0 Primary Pain Nonverbal Response Nods No Pain Scale Type 0-10 Pain scale Cardiovascular Symptoms Edema Nail Bed Color [place] Capillary Refill < 2 seconds Heart Sounds ICU S1S2 Heart Rhythm Irregular Dorsalis Pedis Pulse, Left 2+ Normal Dorsalis Pedis Pulse, Right 2+ Normal Radial Pulse, Left 2+ Normal Radial Pulse, Right 2+ Normal Ankle edema Bilateral Edema Ratin+ trace/2mm Cardiac Rhythm Atrial fibrillation Monitoring Lead II, III QRS Duration 0.09 second(s) Alarms On and Functional Yes Heart Rate Alarm Set At - Low 50 Heart Rate Alarm Set At - High 120 Respirations Unlabored Respiratory Pattern Regular Breath Sounds Auscultated Anterior and posterior Left Upper Lobe Breath Sounds Clear, Diminished Left Lower Lobe Breath Sounds Clear, Diminished Right Upper Lobe Breath Sounds Clear, Diminished Right Middle Lobe Breath Sounds Clear, Diminished Right Lower Lobe Breath Sounds Diminished All Lobes Breath Sounds Expiratory wheeze Cough None Oxygen Therapy Nasal cannula 0L-6L Oxygen Flow Rate 4 L/min Tracheal Position Midline Abdomen Description Non-distended, Symmetric, Soft Abdomen Palpation Non-Tender Bowel Continence No bowel movement Swallowing Disorder None Bowel Sounds All Quadrants Present Tolerating Oral Intake Yes Urinary Elimination Urinary catheter draining Urine Color Yellow Urine Description Medium amount External Female external catheter 06/28/2024 Urinary Catheter Activity: Assessed Urinary Catheter Site Condition: No complications Facial Movement Makes facial grimaces, Symmetric resting/crying Skin Description [place], Normal for ethnicity, Dry Skin Temperature Warm Skin Integrity Pressure points intact Skin Turgor Non-Elastic Skin Symptoms Bruising All Extremity Description [place], Normal for ethnicity Temperature All Extremities Warm Mucous Membrane Color [place] Mucous Membrane Description Moist Sensory Perception Jose Slightly limited Moisture Jose Occasionally moist Activity Jose Walks occasionally Mobility Jose Slightly limited Nutrition Jose Adequate Friction and Shear Jose No apparent problem Jose Score 18 Hospital Acquired Pressure Injury Risk None/minimal risk (score 19-23) Antecubital Right 20 gauge Peripheral IV Activity: Assessed Peripheral IV Dressing Condition: Clean, Dry, Intact Peripheral IV Dressing Activity: Transparent dressing Peripheral IV Line Status/Patency: Flushes easily, 5ml heparin flush, No blood return Peripheral IV Site Condition: No complications Peripheral IV Equipment: PRN Adaptor Antecubital Left 20 gauge Peripheral IV Activity: Assessed Peripheral IV Dressing Condition: Clean, Dry, Intact Peripheral IV Dressing Activity: Transparent dressing Peripheral IV Line Status/Patency: Flushes easily, 10ml normal saline flush, Good blood return Peripheral IV Site Condition: No complications Peripheral IV Equipment: PRN Adaptor Neurological Language Able to speak clearly, Follows simple commands Neurological Symptoms Fatigue Gait Unable to assess Extremity Movement Equal Swallowing Difficulty None Characteristics of Communication Appropriate Characteristics of Speech Clear Facial Symmetry Symmetric Level of Consciousness Alert Aspiration Risk None Eye Opening Response Asher Spontaneously Best Motor Response Asher Obeys simple commands Best Verbal Response Ignacia Oriented Asher Coma Score 15 SEDA Yes Left Pupil Description Regular, Round Right Pupil Description Regular, Round Left Pupil Reaction Brisk Right Pupil Reaction Brisk Pupil Size, Left 3 mm Pupil Size, Right 3 mm Strength All Extremities Moderate Left Upper Extremity Sensation Intact Right Upper Extremity Sensation Intact Left Lower Extremity Sensation Intact Right Lower Extremity Sensation Intact CN V Facial Sensation Corneal reflex present, Light touch equal bilaterally CN VII Facial Expression and Symmetry Facial movement symmetrical CN VIII Hearing Spoken word equally audible left/right CN IX, X Swallowing, Gag Reflex Swallowing present Romero Screen Daily History of Fall in Last 3 Months Romero No Presence of Secondary Diagnosis Romero Yes Use of Ambulatory Aid Romero Crutches, cane, walker IV/PRN Adapter Fall Risk Romero Yes Gait Weak or Impaired Fall Risk Romero Normal, bedrest, immobile Mental Status Fall Risk Romero Oriented to own ability Romero Fall Risk Score 50 HI Violence Risk Confused No Violence Risk Irritable No Violence Risk Boisterous No Violence Risk Verbal Threats No Violence Risk Physical Threats No Violence Risk Attacking Objects No Violence Risk Predictor Score 0 Violence Risk Intervention None Violence Risk Current Interventions None Affect/Behavior Appropriate, Calm, Cooperative Orientation Oriented x 4 BMAT Existing Patient Condition/Safety No order for Strict Bedrest BMAT Level 1: Sit and Shake Sit, side bed/reach midline/shake hands BMAT Level 2: Stretch and Point Seated position, straighten 1 knee; Flex ankle & point toes BMAT Level 3: Stand Patient unable BMAT Mobility Level 2 Orientation Assessment Oriented x 4 Assistive Device Walker Positioning Repositions self Mobility Assistance Level One assist Activity Status ADL Lights dimmed, Resting Beds/Devices Hospital bed Activity Assistance One assist Standard Safety ID band on, Allergy Band on, Call device within reach, Bed in low position, Wheels locked, Upper/Half-Length side-rails up, Phone within reach, personal items within reach, Hazards removed from floor, Non-Slip footwear, Precautions maintained High Risk Safety Identified as high risk, Fall ID band on, Bed alert on, Bathroom light on, Non-Slip footwear, Room check performed Demonstrates Correct Call Light Use Yes amiodarone 200 mg mg hydrALAZINE 25 mg mg Adaptive Feeding Equipment None Eating Difficulties None 06/28/2024 15:22 EDT furosemide 40 mg mg 06/28/2024 15:05 EDT Post Rehab Outcome Not Done: See ICU flow (Not Done) Post Rehab Outcome Not Done: See ICU flow (Not Done) CAM Mental Status Change & Fluctuation Not Done: See ICU flow (Not Done) CAM Mental Status Change & Fluctuation Not Done: See ICU flow (Not Done) CAM Inattention Not Done: See ICU flow (Not Done) CAM Inattention Not Done: See ICU flow (Not Done) CAM Disorganized Thinking Not Done: See ICU flow (Not Done) CAM Disorganized Thinking Not Done: See ICU flow (Not Done) CAM Altered Level of Consciousness Not Done: See ICU flow (Not Done) CAM Altered Level of Consciousness Not Done: See ICU flow (Not Done) Confusion Assessment Method Score Not Done: See ICU flow (Not Done) Confusion Assessment Method Score Not Done: See ICU flow (Not Done) Mechanical VTE Prophylaxis Education Not Done: See ICU flow (Not Done) Mechanical VTE Prophylaxis Education Not Done: See ICU flow (Not Done) Mechanical VTE Prophylaxis Education Not Done: See ICU flow (Not Done) Sequential Compression Device Not Done: See ICU flow (Not Done) Sequential Compression Device Not Done: See ICU flow (Not Done) Sequential Compression Device Not Done: See ICU flow (Not Done) Influenza Vaccine Need Not Done: See ICU flow (Not Done) Cardiac Rehab - Phase I Not Done (Not Done) Cardiac Rehab - Phase I Not Done (Not Done) Influenza Vaccine Assessment Not Done (Not Done) Sequential Compression Device Form Not Done (Not Done) Sequential Compression Device Form Not Done (Not Done) Sequential Compression Device Form Not Done (Not Done) 06/28/2024 15:00 EDT External Female external catheter 06/28/2024 Urinary Catheter Output: 700 mL Oral Intake 450 mL Oral Intake 250 mL 06/28/2024 14:33 EDT Primary Care Phone Message FW: Transition of Care sent from [facility] 06/28/2024 14:31 EDT Transition of Care Note Transition of Care sent from [facility] 06/28/2024 14:27 EDT Heart Rate Monitored 96 bpm 06/28/2024 14:22 EDT Cardiology Phone Message FW: FANI Jimenez: Labs and Follow Up (Modified) 06/28/2024 14:21 EDT Heart Rate Monitored 97 bpm 06/28/2024 14:21 EDT Systolic Blood Pressure Non-Invasive 177 mmHg HI Diastolic Blood Pressure Non-Invasive 101 mmHg >HHI Mean Arterial Pressure (NBP) 122 mmHg 06/28/2024 14:21 EDT Blood Pressure Method Automatic Blood Pressure Location Left arm Blood Pressure Cuff Size Medium 06/28/2024 13:41 EDT Discharge To, Anticipated Home with family care, Home Health Care Anticipated Discharge Date 06/30/2024 Transition Planning Note Transition Planning Ongoing Assessment 06/28/2024 13:25 EDT External Female external catheter 06/28/2024 Urinary Catheter Activity: Changed Urinary Catheter Site Condition: No complications Urinary Catheter Care Completed: Yes 06/28/2024 13:14 EDT Apical Heart Rate 94 bpm metoprolol 50 mg mg 06/28/2024 13:09 EDT Heart Rate Monitored 97 bpm 06/28/2024 13:09 EDT Oxygen Therapy Nasal cannula 0L-6L Oxygen Flow Rate 4 L/min Positioning Repositions self Activity Status ADL Sleeping quietly with easy respirations Standard Safety Safety level maintained 06/28/2024 11:49 EDT Lives In Single level home Living Situation Home with home health, Lives alone Patient's Responsibilities Personal ADL Current Home Treatments None Discharge To, Anticipated Home with family care, Home Health Care Anticipated Discharge Date 06/30/2024 Transition Planning Note Transition Planning Initial Assessment 06/28/2024 11:43 EDT nitroglycerin mcg/min mg Dextrose 5% Premix Diluent Dextrose 5% Premix Diluent mL 06/28/2024 11:06 EDT [facility] Current Living Situation I have a steady place to live [facility] Current Issues Living Environment None [facility] Worried Food Running Out P12M Never true [facility] Food Gone, No Money To Buy P12M Never true [facility] No Transport Med/Appt/Work P12M No [facility] Utilities Threaten Shut Off P12M No [facility] Anyone Physically Hurt You Never (1) [facility] Anyone Insult Or Talk Down To You Never (1) [facility] Anyone Threaten You With Harm Never (1) [facility] Anyone Scream Or Curse At You Never (1) [facility] Safety Total Score 4 Basic Disease Process 1 Concomitant Disease Process 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, Other condition complicating cure Concomitant Disease Process Score Yes Palliative Total Score 1 Palliative Screen Applicable for This Pt Yes - screened, n/a LACE Length of Stay 3 days LACE Acute Admission Inpatient LACE ED Visits 1 LACE CoMorbidity Score 5 LACE Score 12 Readmission Risk Screening Note Readmission Risk Screening 06/28/2024 10:56 EDT Telemetry Telemetry 06/28/2024 10:55 EDT Heart Rate Monitored 96 bpm Oxygen Saturation 97 % 06/28/2024 10:55 EDT Temperature Oral 36.6 DegC Respiratory Rate 20 br/min Systolic Blood Pressure Non-Invasive 160 mmHg HI Diastolic Blood Pressure Non-Invasive 88 mmHg Blood Pressure Method Manual Blood Pressure Location Left arm Blood Pressure Cuff Size Medium Oxygen Therapy Nasal cannula 0L-6L Oxygen Flow Rate 4 L/min External Female external catheter 06/28/2024 Urinary Catheter Output: 900 mL Positioning Repositions self Activity Status ADL Awake Standard Safety Safety level maintained 06/28/2024 10:53 EDT Systolic Blood Pressure Non-Invasive 181 mmHg HI Diastolic Blood Pressure Non-Invasive 99 mmHg HI Mean Arterial Pressure (NBP) 120 mmHg 06/28/2024 10:53 EDT Heart Rate Monitored 92 bpm 06/28/2024 10:53 EDT Cardiac Rhythm Atrial fibrillation Monitoring Lead III, V1/MCL1 QRS Duration 0.09 second(s) QT Interval 0.33 second(s) Alarms On and Functional Yes Heart Rate Alarm Set At - Low 50 Heart Rate Alarm Set At - High 120 Antecubital Right 20 gauge Peripheral IV Activity: Assessed Peripheral IV Dressing Condition: Clean, Dry, Intact Peripheral IV Dressing Activity: Transparent dressing Peripheral IV Line Status/Patency: Flushes easily, 3ml normal saline flush, Good blood return Peripheral IV Line Care: Secured with tape Peripheral IV Site Condition: No complications Peripheral IV Equipment: PRN Adaptor Antecubital Left 20 gauge Peripheral IV Activity: Assessed Peripheral IV Dressing Condition: Clean, Dry, Intact Peripheral IV Dressing Activity: Transparent dressing Peripheral IV Line Status/Patency: Flushes easily, 3ml normal saline flush, Good blood return Peripheral IV Line Care: Secured with tape Peripheral IV Site Condition: No complications Peripheral IV Equipment: PRN Adaptor 06/28/2024 10:50 EDT Cardiology Consultation EP Consult Note (Modified) 06/28/2024 9:53 EDT Systolic Blood Pressure Non-Invasive 160 mmHg HI Diastolic Blood Pressure Non-Invasive 94 mmHg HI Mean Arterial Pressure (NBP) 120 mmHg 06/28/2024 9:53 EDT Heart Rate Monitored 88 bpm 06/28/2024 9:53 EDT Blood Pressure Method Automatic Blood Pressure Location Left arm Blood Pressure Cuff Size Medium Activity Status ADL Sleeps intermittently Standard Safety Safety level maintained 06/28/2024 9:26 EDT Heart Rate Monitored 91 bpm 06/28/2024 9:13 EDT amiodarone 200 mg mg apixaban 5 mg mg empagliflozin 10 mg mg 06/28/2024 9:12 EDT furosemide 40 mg mg 06/28/2024 9:00 EDT Systolic Blood Pressure Non-Invasive Not Done: Task Duplication (Not Done) Diastolic Blood Pressure Non-Invasive Not Done: Task Duplication (Not Done) hydrALAZINE Not Done: Task Duplication (Not Done) 06/28/2024 8:55 EDT High Sensitivity Troponin I 88 ng/L HI 06/28/2024 8:52 EDT Heart Rate Monitored 93 bpm 06/28/2024 8:52 EDT Temperature Oral 36.6 DegC Respiratory Rate 20 br/min Systolic Blood Pressure Non-Invasive 144 mmHg HI Diastolic Blood Pressure Non-Invasive 80 mmHg Blood Pressure Method Automatic Blood Pressure Location Left arm Blood Pressure Cuff Size Medium Oxygen Therapy Nasal cannula 0L-6L Oxygen Saturation 96 % Oxygen Flow Rate 4 L/min Continuous IV Infusions Nitro off Positioning Repositions self Activity Status ADL Awake, Resting NPO Status Maintained Bed Bath Setup Oral Care Setup Linen Change Not done Standard Safety ID band on, Call device within reach, Bed in low position, Wheels locked, Upper/Half-Length side-rails up, Phone within reach, personal items within reach, Safety level maintained, Hazards removed from floor, Non- Slip footwear, Precautions maintained 06/28/2024 7:54 EDT Heart Rate Monitored 101 bpm HI 06/28/2024 7:54 EDT Systolic Blood Pressure Non-Invasive 179 mmHg HI Diastolic Blood Pressure Non-Invasive 81 mmHg Cardiac Rhythm Atrial fibrillation Oxygen Therapy Nasal cannula 0L-6L Oxygen Flow Rate 4 L/min hydrALAZINE 25 mg mg 06/28/2024 7:06 EDT Heart Rate Monitored 90 bpm 06/28/2024 7:06 EDT Continuous IV Infusions Nitro decreased to 25mcg/min Activity Status ADL Sleeping quietly with easy respirations Standard Safety Safety level maintained 06/28/2024 7:02 EDT Response to Advance Directive Request Scanned into EMR 06/28/2024 7:01 EDT Notify date/time 06/28/2024 7:01 Provider Notified HARRY BAILON MD Notification Method Answering service Information Communicated Consult Details Communicated recurrent Afib 06/28/2024 7:00 EDT Oral Intake 500 mL 06/28/2024 6:52 EDT Heart Rate Monitored 92 bpm 06/28/2024 6:52 EDT Systolic Blood Pressure Non-Invasive 153 mmHg HI Diastolic Blood Pressure Non-Invasive 86 mmHg Mean Arterial Pressure (NBP) 110 mmHg Blood Pressure Method Automatic Cardiac Rhythm Atrial fibrillation Monitoring Lead III, V1/MCL1 QRS Duration 0.08 second(s) QT Interval 0.43 second(s) Alarms On and Functional Yes Standard Safety Safety level maintained 06/28/2024 5:22 EDT Designated Person #1 We May Share ASHU elizabeth- [phone] Designated Person #1 Relationship Daughter Privacy Restrictions Requested None Height 167 cm Height in inches 65.7 inch(es) Admission Weight 63.9 kg Weight Lbs 140.6 lb [place] Body Weight 58.72 kg Type of Scale Used Bed scale BSA Admission 1.72 Body Mass Index 22.91 kg/m2 Patient Type Inpatient Thrombosis Risk Factors (3) Age over 75 years old Thrombosis Risk Factor Add'l Assessment NA Thrombosis Risk Score 3 Status N/A Thoughts of Harming Others - History No Thoughts of Suicide - History No Hospital Clergy to Visit Requests Visit from Spiritual Care Staff Sensory Deficits None Advanced Directives Yes Advance Directive Type [facility] Power of Returned Materials Inspector for [facility] [place], [place] Declaration (Living Will) Advance Directive Location Indicates that [place] has been given copy Infectious Disease Symptoms Shortness of breath Infectious Disease Recent Exposure No Alcohol and Drug Use No Employee of Institutional Living No Health Care Employee No History of Exposure to TB No History of Positive Chest X-Ray for TB No History of Positive TB Skin Test No Homeless No Known Immunosuppression No Recent Immigrant No Resident of Institutional Living No Bloody Sputum No Fatigue Yes Fever No Loss of Appetite No Night Sweats No Persistent Cough > 3 Weeks No Weight Loss No Barriers to Learning None evident Teaching Method Explanation Preferred Spoken Language [place] Preferred Written Language [place] Teaching Evaluation Verbalizes/Nonverbally indicates understanding Safety Brochure Information Reviewed Yes Celeste Flores Video Viewed Previously viewed Patient's Current Physicians Patient's Current Physicians Meds to Beds Yes Discharge To, Anticipated Home with family care Prev Test Positive/Diagnosis w/COVID-19 No Current Quarantine/Isolated any Illness No Any Contact with Sick Animals/Birds No Traveled Anywhere in Last 30 Days No Lost Weight Unintentionally Recently No Eat Poorly Due to Decreased Appetite No Total MST Score 0 N/A Personal Devices, Patient Valuables Dentures, lower, Dentures, upper Admission Note-Nursing Patient History 06/28/2024 5:21 EDT Systolic Blood Pressure Non-Invasive 156 mmHg HI Diastolic Blood Pressure Non-Invasive 82 mmHg Mean Arterial Pressure (NBP) 99 mmHg 06/28/2024 5:21 EDT Heart Rate Monitored 89 bpm 06/28/2024 5:06 EDT Heart Rate Monitored 89 bpm Oxygen Saturation 95 % 06/28/2024 5:06 EDT Admission Weight 63.9 kg Weight Lbs 140.6 lb Type of Scale Used Bed scale Temperature Oral 36.5 DegC Respiratory Rate 22 br/min HI Systolic Blood Pressure Non-Invasive 163 mmHg HI Diastolic Blood Pressure Non-Invasive 96 mmHg HI Mean Arterial Pressure (NBP) 121 mmHg Blood Pressure Method Automatic Blood Pressure Location Left arm Blood Pressure Cuff Size Medium Primary Pain Intensity 0 Primary Pain Nonverbal Response Nods No Pain Scale Type 0-10 Pain scale Cardiovascular Symptoms Edema, Fatigue, Palpitations Nail Bed Color [place] Capillary Refill < 2 seconds Heart Sounds ICU S1S2 Heart Rhythm Irregular Murmur Auscultated No Dorsalis Pedis Pulse, Left 2+ Normal Dorsalis Pedis Pulse, Right 2+ Normal Posttibial Pulse, Left 1+ Thready Posttibial Pulse, Right 1+ [place] Radial Pulse, Left 2+ Normal Radial Pulse, Right 2+ Normal Ankle edema Bilateral Edema Ratin+ trace/2mm Cardiac Rhythm Atrial fibrillation Monitoring Lead III, V1/MCL1 QRS Duration 0.08 second(s) QT Interval 0.38 second(s) Alarms On and Functional Yes Heart Rate Alarm Set At - Low 50 Heart Rate Alarm Set At - High 120 Respirations Unlabored Respiratory Pattern Regular Breath Sounds Auscultated Anterior and posterior Left Upper Lobe Breath Sounds Diminished Left Lower Lobe Breath Sounds Fine crackles Right Upper Lobe Breath Sounds Diminished Right Middle Lobe Breath Sounds Fine crackles Right Lower Lobe Breath Sounds Fine crackles All Lobes Breath Sounds Expiratory wheeze, detailed lung assessment Cough None Oxygen Therapy Nasal cannula 0L-6L Oxygen Flow Rate 4 L/min Tracheal Position Midline Abdomen Description Non-distended, Soft Abdomen Palpation Non-Tender, Soft Passing Flatus Yes Bowel Sounds All Quadrants Present Urinary Elimination Voiding, no difficulties, Urinary catheter draining Urine Color Yellow Urine Description Medium amount, Clear Perineum Intact External Female external catheter 06/28/2024 Urinary Catheter Activity: Assessed, Present on admission Urinary Catheter POA Insert Date, Time: 06/28/2024 5:00 Urinary Catheter Site Condition: No complications Facial Movement Symmetric resting/crying Skin Description [place], Normal for ethnicity, Dry Skin Temperature Warm Skin Integrity Intact, Pressure points intact Skin Turgor Non-Elastic Skin Assessment Completed Admission All Extremity Description [place] Temperature All Extremities Warm Mucous Membrane Color [place] Mucous Membrane Description Moist Continuous IV Infusions Nitro @ 50mcg Antecubital Right 20 gauge Peripheral IV Activity: Assessed Peripheral IV Dressing Condition: Clean, Dry, Intact Peripheral IV Dressing Activity: Transparent dressing Peripheral IV Line Status/Patency: Continuous infusion Peripheral IV Line Care: Secured with tape Peripheral IV Site Condition: No complications Peripheral IV Equipment: IV Pump Antecubital Left 20 gauge Peripheral IV Activity: Assessed Peripheral IV Dressing Condition: Clean, Dry, Intact Peripheral IV Dressing Activity: Transparent dressing Peripheral IV Line Care: Secured with tape Peripheral IV Site Condition: No complications Peripheral IV Equipment: PRN Adaptor Neurological Language Able to speak clearly Neurological Symptoms Fatigue Swallowing Difficulty None Characteristics of Communication Appropriate Characteristics of Speech Clear Facial Symmetry Symmetric Level of Consciousness Alert Aspiration Risk None SEDA Yes Strength All Extremities Moderate Left Upper Extremity Sensation Intact Right Upper Extremity Sensation Intact Left Lower Extremity Sensation Intact Right Lower Extremity Sensation Intact Violence Risk Confused No Violence Risk Irritable No Violence Risk Boisterous No Violence Risk Verbal Threats No Violence Risk Physical Threats No Violence Risk Attacking Objects No Violence Risk Predictor Score 0 Violence Risk Intervention None Violence Risk Current Interventions None Affect/Behavior Appropriate, Calm, Cooperative Orientation Oriented x 4 Orientation Assessment Oriented x 4 Positioning Repositions self Activity Status ADL Lights dimmed, Sleeping, Warm blankets Skin Care Preventative Intervention(s) padded oxygen tubing Standard Safety ID band on, Allergy Band on, Call device within reach, Bed in low position, Wheels locked, Upper/Half-Length side-rails up, Phone within reach, personal items within reach, Bedside Cart Locked, Safety level maintained High Risk Safety Room located near nursing station, Room check performed Demonstrates Correct Call Light Use Yes 06/28/2024 4:57 EDT Electrocardiogram - EKG - CV Completed (In Progress) 06/28/2024 4:50 EDT History and Physical History and Physical (Modified) 06/28/2024 4:13 EDT Patient Information Note Report called to CCU 325. CE Medel recieved report. all questions answered. 06/28/2024 4:05 EDT Patient Information Note MARTI care here with pt at this time. 06/28/2024 3:53 EDT Peripheral Pulse Rate 98 bpm Respiratory Rate 22 br/min HI Systolic Blood Pressure Non-Invasive 149 mmHg HI Diastolic Blood Pressure Non-Invasive 92 mmHg HI Oxygen Therapy Nasal cannula 0L-6L Oxygen Saturation 94 % Oxygen Flow Rate 4 L/min 06/28/2024 3:50 EDT nitroglycerin 40 mcg/min mg Dextrose 5% Premix Diluent Dextrose 5% Premix Diluent mL 06/28/2024 3:30 EDT Peripheral Pulse Rate 91 bpm Respiratory Rate 21 br/min HI Systolic Blood Pressure Non-Invasive 167 mmHg HI Diastolic Blood Pressure Non-Invasive 87 mmHg Oxygen Therapy Nasal cannula 0L-6L Oxygen Saturation 95 % Oxygen Flow Rate 4 L/min Standard Safety ID band on, Call device within reach, Bed in low position nitroglycerin 45 mcg/min mg Dextrose 5% Premix Diluent Dextrose 5% Premix Diluent mL 06/28/2024 2:59 EDT nitroglycerin 50 mcg/min mg Dextrose 5% Premix Diluent Dextrose 5% Premix Diluent mL 06/28/2024 2:55 EDT Systolic Blood Pressure Non-Invasive 172 mmHg HI Diastolic Blood Pressure Non-Invasive 89 mmHg 06/28/2024 2:50 EDT Systolic Blood Pressure Non-Invasive 177 mmHg HI Diastolic Blood Pressure Non-Invasive 115 mmHg >HHI External Female external catheter 06/28/2024 Urinary Catheter Activity: Applied 06/28/2024 2:49 EDT Progress Note-Nurse 06/28/2024 2:45 EDT Systolic Blood Pressure Non-Invasive 175 mmHg HI Diastolic Blood Pressure Non-Invasive 88 mmHg Standard Safety ID band on, Call device within reach, Bed in low position 06/28/2024 2:40 EDT Systolic Blood Pressure Non-Invasive 180 mmHg HI Diastolic Blood Pressure Non-Invasive 95 mmHg HI 06/28/2024 2:35 EDT Peripheral Pulse Rate 99 bpm Respiratory Rate 15 br/min Systolic Blood Pressure Non-Invasive 149 mmHg HI Diastolic Blood Pressure Non-Invasive 87 mmHg Oxygen Therapy Nasal cannula 0L-6L Oxygen Saturation 96 % Oxygen Flow Rate 4 L/min nitroglycerin 45 mcg/min mg Dextrose 5% Premix Diluent Dextrose 5% Premix Diluent mL 06/28/2024 2:10 EDT Systolic Blood Pressure Non-Invasive 168 mmHg HI Diastolic Blood Pressure Non-Invasive 117 mmHg >HHI 06/28/2024 2:06 EDT furosemide 40 mg mg 06/28/2024 2:05 EDT Respiratory Rate 21 br/min HI Systolic Blood Pressure Non-Invasive 158 mmHg HI Diastolic Blood Pressure Non-Invasive 104 mmHg >HHI Oxygen Saturation 95 % 06/28/2024 2:00 EDT Peripheral Pulse Rate 93 bpm Respiratory Rate 21 br/min HI Systolic Blood Pressure Non-Invasive 175 mmHg HI Diastolic Blood Pressure Non-Invasive 97 mmHg HI Oxygen Therapy Nasal cannula 0L-6L Oxygen Saturation 95 % Oxygen Flow Rate 4 L/min nitroglycerin 50 mcg/min mg Dextrose 5% Premix Diluent Dextrose 5% Premix Diluent mL 06/28/2024 1:55 EDT Notify date/time 06/28/2024 1:55 Provider Notified TIN HOFFMAN MD Notification Method Phone Information Communicated Lab Critical Result(s) Details Communicated Trop 154 Peripheral Pulse Rate 96 bpm Respiratory Rate 23 br/min HI Systolic Blood Pressure Non-Invasive 173 mmHg HI Diastolic Blood Pressure Non-Invasive 97 mmHg HI Oxygen Therapy Nasal cannula 0L-6L Oxygen Saturation 97 % Oxygen Flow Rate 4 L/min Standard Safety ID band on, Call device within reach, Bed in low position 06/28/2024 1:53 EDT nitroglycerin 45 mcg/min mg (Modified) Dextrose 5% Premix Diluent Dextrose 5% Premix Diluent mL (Modified) 06/28/2024 1:52 EDT nitroglycerin Date / Time Correction Dextrose 5% Premix Diluent Date / Time Correction 06/28/2024 1:47 EDT XR Chest 1 View XR CHEST 1 VIEW 06/28/2024 1:47 EDT nitroglycerin 40 mcg/min mg Dextrose 5% Premix Diluent Dextrose 5% Premix Diluent mL 06/28/2024 1:45 EDT Peripheral Pulse Rate 94 bpm Respiratory Rate 23 br/min HI Systolic Blood Pressure Non-Invasive 171 mmHg HI Diastolic Blood Pressure Non-Invasive 98 mmHg HI Oxygen Therapy Nasal cannula 0L-6L Oxygen Saturation 96 % Oxygen Flow Rate 4 L/min 06/28/2024 1:42 EDT nitroglycerin 35 mcg/min mg (Modified) Dextrose 5% Premix Diluent Dextrose 5% Premix Diluent mL (Modified) 06/28/2024 1:41 EDT Recommendation - Action Systemic inflammatory response syndrome 06/28/2024 1:40 EDT Peripheral Pulse Rate 95 bpm Systolic Blood Pressure Non-Invasive 177 mmHg HI Diastolic Blood Pressure Non-Invasive 93 mmHg HI 06/28/2024 1:38 EDT nitroglycerin 30 mcg/min mg (Modified) Dextrose 5% Premix Diluent Dextrose 5% Premix Diluent mL (Modified) 06/28/2024 1:35 EDT Systolic Blood Pressure Non-Invasive 196 mmHg HI Diastolic Blood Pressure Non-Invasive 113 mmHg >I 06/28/2024 1:34 EDT nitroglycerin Begin Bag 10 mL mg Dextrose 5% Premix Diluent Begin Bag 250 mL mL 06/28/2024 1:30 EDT Systolic Blood Pressure Non-Invasive 185 mmHg HI Diastolic Blood Pressure Non-Invasive 115 mmHg >I 06/28/2024 1:29 EDT Antecubital Right 20 gauge Peripheral IV Activity: Insert new site Peripheral IV Dressing Condition: Clean, Dry, Intact Peripheral IV Dressing Activity: Applied, Transparent dressing Peripheral IV Line Status/Patency: Flushes easily Peripheral IV Site Condition: No complications Peripheral IV Number of Attempts: 1 Antecubital Left 20 gauge Peripheral IV Activity: Present on admission Peripheral IV Dressing Condition: Clean, Dry, Intact Peripheral IV Dressing Activity: Transparent dressing Peripheral IV Line Status/Patency: Flushes easily Peripheral IV POA Insert Date, Time: 06/28/2024 1:50 06/28/2024 1:26 EDT WBC 12.6 10^3/mcL HI RBC 4.49 10^6/mcL Hgb 13.9 G/dL Hct 39.2 % MCV 87.2 fL MCH 31.0 pg MCHC 35.5 G/dL RDW 14.4 % Platelet 338 10^3/mcL MPV 7.1 fL Monocyte Distribution Width Not tested Neutrophil % 80.8 % HI Lymphocyte % 9.7 % LOW Monocyte % 7.4 % Eosinophil % 1.6 % Basophil % 0.3 % Neutrophil, Absolute 10.2 10^3/mcL HI Lymphocyte, Absolute 1.2 10^3/mcL Monocyte, Absolute 0.9 10^3/mcL Eosinophil, Absolute 0.2 10^3/mcL Basophil, Absolute 0.0 10^3/mcL Glucose Level 122 mg/dL HI Sodium Level 139 mmol/L Potassium Level 3.7 mmol/L Chloride 101 mmol/L CO2 32 mmol/L HI Electrolyte Balance 6.0 mEq/L BUN 29 mg/dL HI Creatinine Lvl (s) 1.28 mg/dL HI Estimated Glomerular Filtration Rate 42 ml/min/1.73sqm NA BUN/Creatinine Ratio 23 ratio Calcium Lvl 9.4 mg/dL N-Terminal proBNP 8,302 pg/mL HI High Sensitivity Troponin I 154 ng/L HI SARS-CoV-2 PCR Negative FLU A PCR Negative FLU B PCR Negative RSV PCR Negative Creatinine Clearance Calc 28.50 mL/min 06/28/2024 1:23 EDT EKG [ED AOH] - CV Signed 06/28/2024 1:23 EDT Status N/A Romero Screen ED/ART MODEL patient History of Fall in Last 3 Months Romero No History of Fall in Last 3 Months Romero No Presence of Secondary Diagnosis Romero Yes Use of Ambulatory Aid Romero Crutches, cane, walker IV/PRN Adapter Fall Risk Romero Yes Gait Weak or Impaired Fall Risk Romero Weak Mental Status Fall Risk Romero Oriented to own ability Romero Fall Risk Score 60 HI Thoughts of Harming Others - History No Thoughts of Suicide - History No Domestic Concerns None HT Control,Supervise,Monitor Denies Advanced Directives Yes Advance Directive Type [place] Durable Power of Returned Materials Inspector for Health Care, [place] Declaration (Living Will) Advance Directive Location Family instructed to bring in copy Individuals Taught Patient Learning Readiness Willing to learn Barriers to Learning None evident Teaching Method Demonstration Teaching Evaluation Verbalizes/Nonverbally indicates understanding Chief Complaint increasing shortness of breath yesterday Place Where Injury/Illness Occurred Home Date/Time of Injury/Illness 06/28/2024 1:24 Anticoagulants Taken In Past 6 Wks. Yes Anticoagulant Taken Apixaban (Eliquis) N/A Anesthesia/Transfusions None ED Assessment Note - Nursing ED Patient History Form 06/28/2024 1:22 EDT Systolic Blood Pressure Non-Invasive 211 mmHg HI Diastolic Blood Pressure Non-Invasive 95 mmHg HI Electrocardiogram [AOH] - CV Ordered (In Progress) 06/28/2024 1:20 EDT [facility] Note General Medical Problem *ED 06/28/2024 1:16 EDT Height 160 cm Admission Weight 138 kg [place] Body Weight 52.38 kg Temperature Oral 36.2 DegC Peripheral Pulse Rate 102 bpm HI Respiratory Rate 30 br/min HI Systolic Blood Pressure Non-Invasive 180 mmHg HI Diastolic Blood Pressure Non-Invasive 105 mmHg >HHI Blood Pressure Method Automatic Blood Pressure Location Left arm LAZARO Level 1 No LAZARO Level 2 No LAZARO Level 3 Many Vital Signs LAZARO Danger zone (HR > 100, RR > 20, SaO2 < 92%) Recommended LAZARO Level 2 Dorsalis Pedis Pulse, Left 2+ Normal Dorsalis Pedis Pulse, Right 2+ Normal Cardiac Rhythm Atrial fibrillation Monitoring Lead II Alarms On and Functional Yes Respiratory Symptoms Shortness of breath Respirations Use of accessory muscles Respiratory Pattern Regular Oxygen Saturation 95 % Oxygen Flow Rate 4 L/min Skin Description [place], Normal for ethnicity Temperature All Extremities Warm Level of Consciousness Alert Eye Opening Response Ignacia Spontaneously Best Motor Response Ignacia Obeys simple commands Best Verbal Response Asher Oriented Ignacia Coma Score 15 Strength All Extremities Moderate Tone All Extremities Normal Affect/Behavior Appropriate Orientation Oriented x 4 Wish To Be No Suicidal Thoughts No Ever Made Plans to End Your Life No Suicide Severity Rating No problems noted Infectious Disease Symptoms Patient states no symptoms Infectious Disease Recent Exposure No Alcohol and Drug Use No Employee of Institutional Living No Health Care Employee No History of Exposure to TB No History of Positive Chest X-Ray for TB No History of Positive TB Skin Test No Homeless No Known Immunosuppression No Recent Immigrant No Resident of Institutional Living No Bloody Sputum No Fatigue No Fever No Loss of Appetite No Night Sweats No Persistent Cough > 3 Weeks No Weight Loss No Preferred Spoken Language [place] Preferred Written Language [place] Island[place] Tracking Group ED AO Tracking Group Tracking Acuity 2 ED Diabetic Patient No Mode of Transfer Ground ambulance Ambulance Service [facility] Safety ID band on, Allergy Band on, Call device within reach, Bed in low position, Wheels locked, Safety level maintained Prev Test Positive/Diagnosis w/COVID-19 No Current Quarantine/Isolated any Illness No Any Contact with Sick Animals/Birds No Traveled Anywhere in Last 30 Days No ED Triage Adults ED Triage Adults . Assessment and Plan [place] [employer] (ASA) physical status classification: Class IV. Anesthetic Preoperative Plan Premedication: intravenous. Anesthetic technique: General. Induction: intravenously. Maintenance airway: Mask. Special techniques: Warming device. Special Monitoring. Postoperative pain management: Per surgeon. Risks discussed: nausea, vomiting, headache, sore throat, dental injury, hypotension, allergic reaction, serious complications. Informed consent: signed by patient. Beta Vadim: Beta Vadim Taken Within 24 Hrs: Yes. Digitally Signed by CARLO GLASS DO on 06/29/2024 08:21 AM [facility] Evaluation + Plan note Future Appointments Appointment Date:04/06/2021 08:00:00 AM Scheduled Provider:EMILIANO LEAL DO Location:[facility] Appointment Type:PC OV Follow Up [facility] Evaluation + Plan note Future Appointments Appointment Date:10/05/2021 10:00:00 AM Scheduled Provider:EMILIANO LEAL DO Location:[facility] Appointment Type:PC OV [facility] Evaluation + Plan note Future Appointments Appointment Date:03/11/2022 09:00:00 AM Scheduled Provider:EMILIAON LEAL DO Location:[facility] Appointment Type:PC OV Future Scheduled Tests Laboratory* Creatinine 10/07/21 [facility] Evaluation + Plan note Future Appointments Appointment Date:09/09/2022 09:00:00 AM Scheduled Provider:EMILIANO LEAL DO Location:[facility] Appointment Type:PC OV Follow Up Future Scheduled Tests Laboratory* Creatinine 10/07/21 [facility] Evaluation + Plan note Future Appointments Appointment Date:06/18/2022 11:00:00 AM Scheduled Provider: Brock:TATIANA Appointment Type:US Renal Appointment Date:09/09/2022 09:00:00 AM Scheduled Provider:EMILIANO LEAL DO Location:[facility] Appointment Type:PC OV Follow Up Diagnostic Tests Pending * Vitamin D, 1,25-Dihydroxy 2/15/23 * CHARLES (serum) 05/26/22 * PTH, Related Peptide 05/26/22 Future Scheduled Tests Laboratory* Creatinine 10/07/21 Radiology* US Renal 06/18/22 [facility] evaluation + Plan note Future Appointments Appointment Date:07/19/2024 03:30:00 PM Scheduled Provider:EMILIANO LEAL DO Location:[facility] Appointment Type:PC OV Future Scheduled Tests Laboratory* Basic Metabolic Panel 05/17/24 * Calcium Level Ionized 05/17/24 * PTH, Intact 05/17/24 Radiology* MA Mammo Diagnostic Right w/ Brian 11/23/23 * US Breast Right Limited 11/23/23 [facility] evaluation + Plan note Future Appointments Appointment Date:07/19/2024 03:30:00 PM Scheduled Provider:EMILIANO LEAL DO [facility] Appointment Type:PC OV Appointment Date:07/23/2024 03:30:00 PM Scheduled Provider:ASIM DIEHL Location:[facility] Appointment Type:CV OV Future Scheduled Tests Laboratory* Basic Metabolic Panel 05/17/24 * Calcium Level Ionized 05/17/24 * PTH, Intact 05/17/24 Radiology* MA Mammo Diagnostic Right w/ Brian 11/23/23 * US Breast Right Limited 11/23/23 [facility] evaluation + Plan note Future Appointments Appointment Date:08/07/2024 03:00:00 PM Scheduled Provider:ASIM DIEHL Location:[facility] Appointment Type:CV OV Appointment Date:08/08/2024 10:45:00 AM Scheduled Provider: Location:Heart Lab Appointment Type:EP Ablation PF-Ensite Appointment Date:11/12/2024 03:00:00 PM Scheduled Provider:ANASTASIYA JEFF Location:[facility] Appointment Type:CV OV Future Scheduled Tests Radiology* MA Mammo Diagnostic Right w/ Brian 11/23/23 * US Breast Right Limited 11/23/23 [facility] Evaluation + Plan note Future Appointments Appointment Date:09/19/2024 03:00:00 PM Scheduled Provider:ASIM DIEHL Location:[facility] Appointment Type:CV OV Appointment Date:11/12/2024 03:00:00 PM Scheduled Provider:ANASTASIYA JEFF Location:[facility] Appointment Type:CV OV Future Scheduled Tests Radiology* MA Mammo Diagnostic Right w/ Brian 11/23/23 * US Breast Right Limited 11/23/23 [facility] Evaluation + Plan note Future Appointments Appointment Date:09/19/2024 03:00:00 PM Scheduled Provider:ASIM DIEHL Location:[facility] Appointment Type:CV OV Appointment Date:10/19/2024 02:15:00 PM Scheduled Provider:DONATO NAVARRETE DO Location:[facility] Appointment Type:PC OV Appointment Date:12/20/2024 03:00:00 PM Scheduled Provider:ANASTASIYA JEFF Location:[facility] Appointment Type:CV OV Future Scheduled Tests Laboratory* Basic Metabolic Panel 08/22/24 * Magnesium Level 09/12/24 Radiology* MA Mammo Diagnostic Right w/ Brian 11/23/23 * US Breast Right Limited 11/23/23 [facility] Evaluation + Plan note Future Appointments Appointment Date:01/08/2025 01:00:00 PM Scheduled Provider: Location:RAD Appointment Type:Echo - Echocardiogram Adult Appointment Date:01/16/2025 03:30:00 PM Scheduled Provider:DONATO NAVARRETE DO Location:[facility] Appointment Type:PC OV Appointment Date:01/31/2025 10:30:00 AM Scheduled Provider:ASIM DIEHL Location:[facility] Appointment Type:CV OV Appointment Date:03/21/2025 03:00:00 PM Scheduled Provider:ASIM DIEHL Location:[facility] Appointment Type:CV OV Appointment Date:12/19/2025 03:30:00 PM Scheduled Provider:MEREDITH BAILON Location:[facility] Appointment Type:CV OV Future Scheduled Tests Laboratory* Basic Metabolic Panel 11/05/24 * Basic Metabolic Panel 08/22/24 * Magnesium Level 11/05/24 [facility] evaluation + Plan note Future Appointments Appointment Date:01/16/2025 03:30:00 PM Scheduled Provider:DONATO NAVARRETE DO Location:[facility] Appointment Type:PC OV Appointment Date:01/31/2025 10:30:00 AM Scheduled Provider:ASIM DIEHL Location:[facility] Appointment Type:CV OV Appointment Date:03/21/2025 03:00:00 PM Scheduled Provider:ASIM DIEHL Location:[facility] Appointment Type:CV OV Appointment Date:12/19/2025 03:30:00 PM Scheduled Provider:MEREDITH BAILON Location:[facility] Appointment Type:CV OV Future Scheduled Tests Laboratory* Basic Metabolic Panel 11/05/24 * Basic Metabolic Panel 08/22/24 * Magnesium Level 11/05/24 [facility] Evaluation + Plan note Future Appointments Appointment Date:01/16/2025 03:30:00 PM Scheduled Provider:DONATO NAVARRETE DO [facility] Appointment Type:PC OV Appointment Date:01/31/2025 10:30:00 AM Scheduled Provider:ASIM DIEHL Location:[facility] Appointment Type:CV OV Appointment Date:03/21/2025 03:00:00 PM Scheduled Provider:ASIM DIEHL Location:[facility] Appointment Type:CV OV Appointment Date:12/19/2025 03:30:00 PM Scheduled Provider:MEREDITH BAILON Location:[facility] Appointment Type:CV OV Future Scheduled Tests Laboratory* Basic Metabolic Panel 08/22/24 [facility] evaluation + Plan note Future Appointments Appointment Date:02/19/2025 08:30:00 AM Scheduled Provider: Location:Heart Lab Appointment Type:CV Procedure - Heart Lab/Hybrid OR Appointment Date:03/21/2025 03:00:00 PM Scheduled Provider:ASIM DIEHL Location:[facility] Appointment Type:CV OV Appointment Date:12/19/2025 03:30:00 PM Scheduled Provider:MEREDITH BAILON Location:[facility] Appointment Type:CV OV Future Scheduled Tests Laboratory* Basic Metabolic Panel 08/22/24 * Basic Metabolic Panel 02/06/25 * Complete Blood Count 02/06/25 * Prothrombin Time - Panel 02/06/25 [facility] Evaluation + Plan note Future Appointments Appointment Date:02/19/2025 08:00:00 AM Scheduled Provider: Location:Heart Lab Appointment Type:CV Procedure - Heart Lab/Hybrid OR Appointment Date:03/21/2025 03:00:00 PM Scheduled Provider:ASIM DIEHL Location:[facility] Appointment Type:CV OV Appointment Date:12/19/2025 03:30:00 PM Scheduled Provider:MEREDITH BAILON Location:[facility] Appointment Type:CV OV Future Scheduled Tests Laboratory* Basic Metabolic Panel 08/22/24 [facility] Evaluation + Plan note Future Appointments Appointment Date:03/21/2025 03:00:00 PM Scheduled Provider:ASIM DIEHL Location:[facility] Appointment Type:CV OV Appointment Date:12/19/2025 03:30:00 PM Scheduled Provider:MEREDITH BAILON Location:[facility] Appointment Type:CV OV Future Scheduled Tests Laboratory* Basic Metabolic Panel 08/22/24 [facility] Hospital course Narrative No data available for this section [facility] Hospital Discharge instructions No data available for this section [facility] Progress note No data available for this section [facility] Summary Purpose Family History No Family History Records Found No data available for this section No data available for this section No data available for this section No data available for this section No data available for this section No data available for this section No data available for this section No data available for this section No data available for this section No data available for this section No data available for this section No data available for this section No data available for this section No data available for this section No data available for this section No data available for this section No data available for this section No data available for this section No Family History Records FoundNo Family History Records Found No data available for this section Advance Directives No Advanced Directives Records FoundNo Advanced Directives Records FoundNo Advanced Directives Records Found Additional Source Comments Care Team (unrecognized sect ion and content) Care Team Personnel Name: Jere Gupta Clerk Daniella PT Position: P3 Scheduling - [place] Advanced Member Role: Other Name: EMILIANO LEAL DO Position: P4 Physician - Primary Care Med Service: Active Provider Member Role: Primary Care Physician Address: Address: [address] [place] [address] Care Team Related Persons Name: NATALIE ELIZABETH Name: SANDRA SEWELL Address: Home [address] [place] [phone] Care Team Personnel Name: Jere Gupta Clerk Daniella PT Position: P3 Scheduling - [place] Advanced Member Role: Other Name: EMILIANO LEAL DO Position: P4 Physician - Primary Care Member Role: Primary Care Physician Address: Address: [address] [place] [address] Care Team Related Persons Name: NATALIE ELIZABETH Name: SANDRA SEWELL Address: Home [address] [place], [place] [id number] [place] Care Team Personnel Name: Jere Gupta Clerk Daniella PT Position: P3 Scheduling - [place] Advanced Member Role: Other Name: EMILIANO LEAL DO Position: P4 Physician - Primary Care Member Role: Primary Care Physician Address: Address: [address] [place] [address] Care Team Related Persons Name: NATALIE ELIZABETH Name: SANDRA SEWELL Address: Home [address] [place], [place] [phone] [place] Care Team Personnel Name: Jere Gupta Clerk Daniella PT Position: P3 Scheduling - [place] Advanced Member Role: Other Name: EMILIANO LEAL DO Position: P4 Physician - Primary Care Member Role: Primary Care Physician Address: Address: [facility] [address] Care Team Related Persons Name: NATALIE ELIZABETH Patient Care team informatio n (unrecognized section and content) Care Team Personnel Name: Candy, Medical Health Researcher Daniella PT Position: P3 Scheduling - [place] Advanced Member Role: Other Name: EMILIANO LEAL DO Position: P4 Physician - Primary Care Member Role: Primary Care Physician Address: Address: [address] [place], [place] [id number] Care Team Related Persons Name: NATALIE ELIZABETH Care Team Personnel Name: Candy, Medical Health Researcher Daniella PT Position: P3 Scheduling - [place] Advanced Member Role: Other Name: EMILIANO LEAL DO Position: P4 Physician - Primary Care Member Role: Primary Care Physician Address: Address: [address] [place] [address] Care Team Related Persons Name: NATALIE ELIZABETH Care Team Personnel Name: Candy, Medical Health Researcher Daniella PT Position: P3 Scheduling - [place] Advanced Member Role: Other Name: EMILIANO LEAL DO Position: P4 Physician - Primary Care Member Role: Primary Care Physician Address: Address: [address] [place] [address] Care Team Related Persons Name: NATALIE ELIZABETH Care Team Personnel Name: Candy, Medical Health Researcher Daniella PT Position: P3 Scheduling - [place] Advanced Member Role: Other Name: EMILIANO LEAL DO Position: P4 Physician - Primary Care Member Role: Primary Care Physician Address: [address] [place] [address] Telecom: Care Team Related Persons Name: NATALIE ELIZABETH Care Team Personnel Name: Candy Medical Health Researcher Daniella PT Position: P3 Scheduling - [place] Advanced Member Role: Other Name: EMILIANO LEAL DO Position: P4 Physician - Primary Care Member Role: Primary Care Physician Address: [address] [place] [address] Telecom: Care Team Related Persons Name: NATALIE ELIZABETH Care Team Personnel Name: Candy Medical Health Researcher Daniella PT Position: P3 Scheduling - [place] Advanced Member Role: Other Name: EMILIANO LEAL DO Position: P4 Physician - Primary Care Member Role: Primary Care Physician Address: [address] [id number] Telecom: Care Team Related Persons Name: NATALIE ELIZABETH Care Team Personnel Name: Candy Medical Health Researcher Daniella PT Position: P3 Scheduling - [place] Advanced Member Role: Other Name: EMILIANO LEAL DO Position: P4 Physician - Primary Care Member Role: Primary Care Physician Address: [address] Telecom: Care Team Related Persons Name: NATALIE ELIZABETH Care Team Personnel Name: Candy, Medical Health Researcher Daniella PT Position: P3 Scheduling - [place] Advanced Member Role: Other Name: EMILIANO LEAL DO Position: P4 Physician - Primary Care Member Role: Primary Care Physician Address: [address] Telecom: Care Team Related Persons Name: NATALIE ELIZABETH Care Team Personnel Name: Candy Medical Health Researcher Daniella PT Position: P3 Scheduling - [place] Advanced Member Role: Other Name: EMILIANO LEAL DO Position: P4 Physician - Primary Care Member Role: Primary Care Physician Address: [address] Telecom: Care Team Related Persons Name: NATALIE ELIZABETH Care Team Personnel Name: Candy Medical Health Researcher Daniella PT Position: P3 Scheduling - [place] Advanced Member Role: Other Name: EMILIANO LEAL DO Position: P4 Physician - Primary Care Member Role: Primary Care Physician Address: [address] [id number] Telecom: Care Team Related Persons Name: MAENATALIE ARRIAZA Care Team Personnel Name: Candy, Medical Health Researcher Daniella PT Position: P3 Scheduling - [place] Advanced Member Role: Other Name: EMILIANO LEAL DO Position: P4 Physician - Primary Care Member Role: Primary Care Physician Address: [address] [place] [address] Telecom: Care Team Related Persons Name: MAREK NATALIE Care Team Personnel Name: Candy, Medical Health Researcher Daniella PT Position: P3 Scheduling - [place] Advanced Member Role: Other Name: EMILIANO LEAL DO Position: P4 Physician - Primary Care Member Role: Primary Care Physician Address: [address] [place] [address] Telecom: Care Team Related Persons Name: MAREK NATALIE Name: NATALIE ELIZABETH Name: NATALIE ELIZABETH Care Team Personnel Name: Candy, Medical Health Researcher Daniella PT Position: P3 Scheduling - [place] Advanced Member Role: Other Name: EMILIANO LEAL DO Position: P4 Physician - Primary Care Member Role: Primary Care Physician Address: [address] [place] [address] Telecom: Care Team Related Persons Name: MAENATALIE ARRIAZA Name: ELEN ELIZABETHA Name: ELEN ELIZABETHA Care Team Personnel Name: Candy, Medical Health Researcher Daniella PT Position: P3 Scheduling - [place] Advanced Member Role: Other Name: EMILIANO LEAL DO Position: P4 Physician - Primary Care Member Role: Primary Care Physician Address: [address] [place] [address] Telecom: Care Team Related Persons Name: ELEN ELIZABETHA Name: ELEN ELIZABETHA Name: MAREK NATALIE Care Team Personnel Name: Candy, Medical Health Researcher Daniella PT Position: P3 Scheduling - [place] Advanced Member Role: Other Name: DONATO NAVARRETE DO Position: P4 Physician - Primary Care Member Role: Primary Care Physician Address: [address] Telecom: Care Team Related Persons Name: NATALIE ELIZABETH Name: NATALIE ELIZABETH Name: NATALIE ELIZABETH Care Team Personnel Name: Candy, Medical Health Researcher Daniella PT Position: P3 Scheduling - [place] Advanced Member Role: Other Name: DONATO NAVARRETE DO Position: P4 Physician - Primary Care Member Role: Primary Care Physician Address: [address] [place] [address] Telecom: Care Team Related Persons Name: NATALIE ELIZABETH Name: NATALIE ELIZABETH Name: MAECOCONATALIE MICHELLE Care Team Personnel Name: Candy, Medical Health Researcher Daniella PT Position: P3 Scheduling - [place] Advanced Member Role: Other Name: DONATO NAVARRETE DO Position: P4 Physician - Primary Care Member Role: Primary Care Physician Address: [address] [place] [address] Telecom: Care Team Related Persons Name: NATALIE ELIZABETH Name: NATALIE ELIZABETH Name: NATALIE ELIZABETH Care Team Personnel Name: Candy, Medical Health Researcher Daniella PT Position: P3 Scheduling - [place] Advanced Member Role: Other Name: DONATO NAVARRETE DO Position: P4 Physician - Primary Care Member Role: Primary Care Physician Address: [address] [place] [address] Telecom: Care Team Related Persons Name: NATALIE ELIZABETH Name: NATALIE ELIZABETH Name: NATALIE ELIZABETH Care Team Personnel Name: Candy, Medical Health Researcher Daniella PT Position: P3 Scheduling - [place] Advanced Member Role: Other Name: DONATO NAVARRETE DO Position: P4 Physician - Primary Care Member Role: Primary Care Physician Address: [address] Telecom: Care Team Related Persons Name: ABELNATALIE MICHELLE Name: ELEN ELIZABETHA Name: NATALIE ELIZABETH Care Team Personnel Name: Candy Medical Health Researcher Daniella PT Position: P3 Scheduling - [place] Advanced Member Role: Other Name: DONATO NAVARRETE DO Position: P4 Physician - Primary Care Member Role: Primary Care Physician Address: [address] [place] [address] Telecom: Care Team Related Persons Name: NATALIE ELIZABETH Name: NATALIE ELIZABETH Name: NATALIE ELIZABETH Care Team Personnel Name: Jere Gupta Clerk Daniella PT Position: P3 Scheduling - [place] Advanced Member Role: Other Name: DONATO NAVARRETE DO Position: P4 Physician - Primary Care Member Role: Primary Care Physician Address: [address] [place] [address] Telecom: Care Team Related Persons Name: NATALIE ELIZABETH Name: NATALIE ELIZABETH Name: NATALIE ELIZABETH INFORMATION SOURCE (unrecogn ized section and content) DATE CREATED AUTHOR 11/15/2023 [facility] ([place]) DATE CREATED AUTHOR AUTHOR'S ORGANIZ ATION 02/17/2025 [facility] DATE CREATED AUTHOR AUTHOR'S ORGANIZ ATION 02/20/2025 [facility] FOR RECORDS PERTAINING TO PATIENTS WHO ARE OR HAVE BEEN ENROLLED IN A CHEMICAL DEPENDENCY/SUBSTANCEABUSE PROGRAM, SOME INFORMATION MAY BE OMITTED. This clinical summary was aggregated from multiple sources. Caution should be exercised in using it in the provision of clinical care. This summary normalizes information from multiple sources, and as a consequence, information in this document may materially change the coding, format and clinical context of patient data. In addition, data may be omitted in some cases. CLINICAL DECISIONS SHOULD BE BASED ON THE PRIMARY CLINICAL RECORDS. [facility] provides no warranty or guarantee of the accuracy or completeness of information in this document.
--- OUTSIDE RECORDS SUMMARY | 2025-03-25 01:12 | XMS RPT_ITS | CCD ---
Author Organization [facility] Inform ion [facility] Care Team Providers Care Security Lead Name Role Phone EMILIANO LEAL DO Primary Care Physician [phone] Candy PT, Daniella Unavailable Unavailable KEILY AMADO [...] AGACNP, RHINA M Admitting Unavailab megan DIEHL BYPRODUCTS OPERATOR-DYE MIXER, ASIM Consulting Unavailab megan RODRIGUEZ DO, DR CAAL Attending Unavailable KAPPFEI BYPRODUCTS OPERATOR-DYE MIXER, DANIELLA M Admitting Unavaila ble ELVIS DO, EMILIANO Primary Care Unavailable DONATO NAVARRETE DO Primary Care Unavailable DONATO NAVARRETE DO Attending Unavailable ELVIS DO, EMILIANO Primary Care Unavailable RANDEE BYPRODUCTS OPERATOR-DYE MIXER, ANASTASIYA Tobias Attending Unavail hemant GALDAMEZ MD, [...] sources) Cyproheptadine; Translations: [cyproheptadine] Drug Allergy Numbness [facility] (20 sources) Alendronate; Translations: [alendronate] Drug Allergy 2 Muscle pain (finding) [facility] (9 sources) amLODIPine; Translations: [amlodipine] Drug Allergy 4 Edema (finding) [facility] (7 sources) dofetilide; Translations: [dofetilide] Drug Allergy Irregular heart beat (finding) [facility] Medications Current Medications Medication Drug Class(es) [...] qDay, # 90 tab(s), 3 Refill(s), Pharmacy: [facility], 160, cm, 06/13/24 13:57:00 EST, Height, kg, 06/13/24 13:57:00 EST, Dosing Weight Start Date: 06/13/24 Status: Ordered Quantity: 90.0 Unit: tab(s) Repeat number: 4 Start: 05-26-2024 amiodarone 200 mg oral tablet Dose : 200 mg = 1 tab(s), Oral, qDay, Take with food., # 90 tab(s), 0 Refill(s), Pharmacy: [facility], 160, cm, 05/13/24 16:44:00 EST, Height, kg, 05/13/24 16:44:00 EST, Dosing Weight Start Date: 05/26/24 Status: Ordered Quantity: 90.0 Unit: tab(s) Repeat number: 1 Start: 05-26-2024 amiodarone 200 mg oral tablet Dose : 200 mg = 1 tab(s), Oral, qDay, Take with food., # 90 tab(s), 0 Refill(s), Pharmacy: [facility], 160, cm, 05/13/24 16:44:00 EST, Height, kg, 05/13/24 16:44:00 EST, Dosing Weight Start Date: 05/26/24 Status: Ordered Quantity: 90.0 Unit: tab(s) Repeat number: 1 Start: 05-18-2024 End: 05-25-2024 amiodarone 200 mg oral table t Dose : 400 mg = 2 tab(s), Oral, BIDM, # 28 tab(s), 0 Refill(s), Pharmacy: [facility], 160, cm, 05/13/24 16:44:00 EST, Height, kg, 05/13/24 16:44:00 EST, Dosing Weight Start Date: 05/18/24 Stop Date: 05/25/24 Status: Ordered Quantity: 28.0 Unit: tab(s) Repeat number: 1 amLODIPine 5 mg oral tablet (12 sources) Dihydropyridine Calcium Channel Vadim Start: 07-01-2024 amLODIPine 5 mg oral tablet Dose : 5 mg = 1 tab(s), Oral, qDay, # 90 tab(s), 3 Refill(s), [id number], 167, cm, 06/28/24 5:22:00 EDT, Height, kg, 06/28/24 5:22:00 EDT, Dosing Weight Start Date: 07/01/24 Status: Ordered Quantity: 90.0 Unit: tab(s) Repeat number: 4 Start: 01-06-2022 amLODIPine 10 mg oral tablet Dose : 10 mg = 1 tab(s), Oral, Daily, # 90 tab(s), 3 Refill(s), [id number], 159, cm, 10/05/21 9:50:00 EDT, Height, kg, 10/05/21 9:50:00 EDT, Dosing Weight Start Date: 01/06/22 Status: Ordered Start: 10-05-2021 amLODIPine 10 mg oral tablet Dose : 10 mg = 1 tab(s), Oral, Daily, # 90 tab(s), 3 Refill(s), [facility]acy: [facility] 159, cm, 10/05/21 9:50:00 EDT, Height, kg, 10/05/21 9:50:00 EDT, Dosing Weight Start Date: 10/05/21 Status: Ordered Start: 10-06-2020 amLODIPine 10 mg oral tablet Dose : 10 mg = 1 tab(s), Oral, Daily, # 90 tab(s), 3 Refill(s), Pharmacy: [facility] 160, cm, 10/06/20 8:46:00 EDT, Height, kg, 10/06/20 8:46:00 EDT, Dosing Weight Start Date: 10/06/20 Status: Ordered apixaban 5 mg oral tablet (16 sources) Factor Xa Inhibitor Start: 10-05-2024 Eliquis 5 mg oral tablet Dose : 5 mg = 1 tab(s), Oral, BID, # 180 tab(s), 3 Refill(s), Pharmacy: [facility], 157.5, cm, 09/19/24 14:48:00 EDT, Height, 69.6, kg, 09/19/24 14:48:00 EDT, Dosing Weight Start Date: 10/05/24 Status: Ordered Medication Dispense Status: Completed Quantity: 180.0 Unit: tab(s) Total Allowed Fills: 4 Fills Dispensed: 0 Start: 08-29-2024 Eliquis 5 mg o ral tablet Dose : 5 mg = 1 tab(s), Oral, BID, # 180 tab(s), 3 Refill(s), Pharmacy: [facility], 157.5, cm, 08/27/24 18:22:00 EDT, Height, 67.9, kg, 08/27/24 18:22:00 EDT, Dosing Weight Start Date: 08/29/24 Status: Ordered Quantity: 180.0 Unit: tab(s) Repeat number: 4 Start: 07-26-2024 Eliquis 5 mg o ral tablet Dose : 5 mg = 1 tab(s), Oral, BID, # 180 tab(s), 3 Refill(s), [facility], 160, cm, 07/19/24 15:08:00 EDT, Height, 65.4, kg, 07/19/24 15:02:00 EDT, Dosing Weight Start Date: 07/26/24 Status: Ordered Quantity: 180.0 Unit: tab(s) Repeat number: 4 Start: 06-19-2024 Eliquis 5 mg o ral tablet Dose : 5 mg = 1 tab(s), Oral, BID, # 180 tab(s), 3 Refill(s), Pharmacy: [facility], 160, cm, 06/19/24 6:42:00 EDT, Height, 61.3, kg, 06/19/24 6:42:00 EDT, Dosing Weight Start Date: 06/19/24 Status: Ordered Quantity: 180.0 Unit: tab(s) Repeat number: 4 Start: 05-28-2024 Eliquis 2.5 mg oral tablet Dose : 2.5 mg = 1 tab(s), Oral, BID, # 60 tab(s), 0 Refill(s), [facility]acy: [facility] #[id number], 160, cm, 05/23/24 14:01:00 EST, Height, 63.8, [...] BID, # 180 tab(s), 3 Refill(s), Pharmacy: [facility], 160, cm, 05/13/24 16:44:00 EST, Height, 65.9, kg, 05/13/24 16:44:00 EST, Dosing Weight Start Date: 05/18/24 Status: Ordered Quantity: 180.0 Unit: tab(s) Repeat number: 4 atorvastatin 40 mg oral tablet (1 source) HMG-CoA Reductase Inhibitor Start: 02-19-2025 End: 02-14-2026 atorvastatin 40 mg oral tablet Dose : 40 mg = 1 tab(s), Oral, qDay, # 90 tab(s), 3 Refill(s), Pharmacy: [facility], 157.5, cm, 02/19/25 6:33:00 EST, Height, kg, [...] 0 Refill(s), 01/06/25 3:57:00 PM EDT, Pharmacy: [facility], 177.8, cm, 01/01/25 9:42:00 EDT, Height, 73.8, [...] qHS, # 30 tab(s), 0 Refill(s), Pharmacy: [facility], HTN (hypertension), 158, cm, 04/19/24 14:50:00 EST, [...] inhalations/day, # 1 EA, 2 Refill(s), Pharmacy: [facility], 157.8, cm, 01/16/25 15:23:00 EDT, [...] use, # 1 EA, 2 Refill(s), Pharmacy: [facility], COPD - Chronic obstructive pulmonary [...] # 180 tab(s), 3 Refill(s), Pharmacy: [facility] #[id number], 167, cm, 06/28/24 5:22:00 EDT, Height, kg, 06/28/24 5:22:00 EDT, Dosing Weight Start Date: 07/01/24 Status: Ordered Medication Dispense Status: Completed Quantity: 180.0 Unit: tab(s) Total Allowed Fills: 4 Fills Dispensed: 0 Start: 05-28-2024 End: 06-27-2024 bumetanide 1 mg oral tablet Dose : 1 mg = 1 tab(s), Oral, BID, # 180 tab(s), 3 Refill(s), Pharmacy: [facility], 160, cm, 06/13/24 13:57:00 EST, Height, kg, [...] qDay, # 90 cap(s), 3 Refill(s), Pharmacy: [facility], 160, cm, 06/13/24 13:57:00 EST, Height, kg, 06/13/24 13:57:00 EST, Dosing Weight Start Date: 06/13/24 Status: Ordered Quantity: 90.0 Unit: cap(s) Repeat number: 4 Start: 05-28-2024 Cardizem CD 12 0 mg/24 hours oral capsule, extended release Dose : 120 mg = 1 cap(s), Oral, qDay, # 30 cap(s), 0 Refill(s), Pharmacy: [facility], 160, cm, 05/23/24 14:01:00 EST, Height, kg, [...] qAM, # 90 tab(s), 3 Refill(s), Pharmacy: [facility], 157.5, cm, 12/20/24 15:03:00 EDT, Height, kg, 12/20/24 15:03:00 EDT, Dosing Weight Start Date: 01/01/25 Status: Ordered Medication Dispense Status: Completed Quantity: 90.0 Unit: tab(s) Total Allowed Fills: 4 Fills Dispensed: 0 Start: 06-14-2024 Jardiance 10 m g oral tablet Dose : 10 mg = 1 tab(s), Oral, qAM, # 90 tab(s), 3 Refill(s), Pharmacy: [facility], 160, cm, 06/13/24 13:57:00 EST, Height, kg, 06/13/24 13:57:00 EST, Dosing Weight Start Date: 06/14/24 Status: Ordered Quantity: 90.0 Unit: tab(s) Repeat number: 4 Start: 05-28-2024 Jardiance 10 m g oral tablet Dose : 10 mg = 1 tab(s), Oral, qAM, # 30 tab(s), 0 Refill(s), Pharmacy: [facility], 160, cm, 05/23/24 14:01:00 EST, Height, kg, [...] qDay, # 30 tab(s), 0 Refill(s), Pharmacy: [facility], 160, cm, 05/13/24 16:44:00 EST, Height, kg, 05/13/24 16:44:00 EST, Dosing Weight Start Date: 05/18/24 Status: Ordered Quantity: 30.0 Unit: tab(s) Repeat number: 1 gabapentin 600 mg oral tablet (2 sources) Anti-epileptic Agent Start: 04-06-2021 End: 07-05-2021 gabapentin 600 mg oral tablet Dose : 600 mg = 1 tab(s), Oral, BID, # 180 tab(s), 0 Refill(s), [facility]acy: [facility] [address], [place], 159, cm, 04/06/21 7:47:00 EST, Height, 63, kg, 04/06/21 7:47:00 EST, Dosing Weight Start Date: 04/06/21 Stop Date: 07/05/21 Status: Ordered Start: 10-06-2020 End: 04-04-2021 gabapentin 600 mg oral table t Dose : 600 mg = 1 tab(s), Oral, BID, # 180 tab(s), 1 Refill(s), Pharmacy: [facility] [address], [place], 160, cm, 10/06/20 8:46:00 EDT, Height, 65.6, kg, 10/06/20 8:46:00 EDT, Dosing Weight Start Date: 10/06/20 Stop Date: 04/04/21 Status: Ordered hydroCHLOROthiazide 12.5 mg oral tablet (1 source) Thiazide Diuretic Start: 04-13-2024 hydroCHLOROthiazide 12.5 mg oral tablet Dose : 12.5 mg = 1 tab(s), Oral, qDay, # 90 tab(s), 3 Refill(s), Pharmacy: [facility], HTN (hypertension), 158, cm, 02/23/24 10:19:00 EST, [...] food, # 60 tab(s), 1 Refill(s), Pharmacy: [facility], 157.5, cm, 01/31/25 10:22:00 EDT, Height, kg, 01/31/25 10:22:00 EDT, Dosing Weight Start Date: 02/18/25 Status: Ordered Medication Dispense Status: Completed Quantity: 60.0 Unit: tab(s) Total Allowed Fills: 2 Fills Dispensed: 0 Start: 06-19-2024 potassium chlo ride 20 mEq oral tablet, extended release Dose : 20 mEq = 1 tab(s), Oral, qDay, Take with food, # 30 tab(s), 3 Refill(s), Pharmacy: [facility], 160, cm, 06/19/24 6:42:00 EDT, Height, kg, 06/19/24 6:42:00 EDT, Dosing Weight Start Date: 06/19/24 Status: Ordered Quantity: 30.0 Unit: tab(s) Repeat number: 4 valsartan 320 mg oral tablet (13 sources) Angiotensin 2 Receptor Vadim Start: 01-31-2025 valsartan 320 mg ora l tablet Dose : 320 mg = 1 tab(s), Oral, Daily, # 100 tab(s), 1 Refill(s), Pharmacy: [facility], 157.5, cm, 01/31/25 10:22:00 EDT, Height, kg, 01/31/25 10:22:00 EDT, Dosing Weight Start Date: 01/31/25 Status: Ordered Medication Dispense Status: Completed Quantity: 100.0 Unit: tab(s) Total Allowed Fills: 2 Fills Dispensed: 0 Start: 07-23-2024 valsartan 160 mg oral tablet Dose : 160 mg = 1 tab(s), Oral, qDay, Replaces previous Rx for the valsartan 320 mg dose., # 90 tab(s), 1 Refill(s), Pharmacy: [facility], 160, cm, 07/19/24 15:08:00 EDT, Height, kg, 07/19/24 15:02:00 EDT, Dosing Weight Start Date: 07/23/24 Status: Ordered Medication Dispense Status: Completed Quantity: 90.0 Unit: tab(s) Total Allowed Fills: 2 Fills Dispensed: 0 Start: 02-23-2024 valsartan 320 mg oral tablet Dose : 320 mg = 1 tab(s), Oral, qDay, Replaces previous prescription for valsartan 160 mg tablets., # 90 tab(s), 3 Refill(s), Pharmacy: [facility], 158, cm, 02/23/24 10:19:00 EST, Height, kg, [...] BIDM, # 60 tab(s), 0 Refill(s), Pharmacy: 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) use of anticoagulants; Translations: [ferry terminal supervisor (current) use of anticoagulants] Onset: 05-20-2024 Episodic Other aftercare (1 source) penitentiary (current) use of inhaled steroids; Translations: [penitentiary (current) use of inhaled steroids] Onset: 07-27-2024 Episodic Other aftercare (1 source) penitentiary (current) use of oral hypoglycemic drugs; Translations: [ferry terminal supervisor (current) use of oral hypoglycemic drugs] Onset: 07-27-2024 Episodic Other aftercare (1 source) Other computer terminal operator (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; Translations: [Other computer terminal operator (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] Onset: 07-27-2024 Episodic Other [...] Estimated Glomerular Filtration Rate 63 ml/min/1.73sqm Normal [facility] Comment on above: Result Comment: Stages [...] Performed By: #### G , BMP #### [address] [address] [facility] 02-19-2025 BUN/Creatinine Ratio 18.7 ratio Normal 10.0-22.0 [facility] Comment on above: Performed By: #### G , BMP #### [address] [address] Calcium [Mass/Vol] 9.3 mg/dL Normal 8.7-10.4 [facility] Comment on above: Performed By: #### G FR, BMP #### [address] [address] Chloride [Moles/Vol] 104 mmol/L Normal 98-110 [facility] Comment on above: Performed By: #### Ed WAGNER, BMP #### [address] [address] CO2 [Moles/Vol] 28 mmol/L Normal 22-32 [facility] Comment on above: Performed By: #### Ed WAGNER, BMP #### [place] [id number] Creatinine [Mass/Vol] 0.91 mg/dL Normal 0.50-1.20 [facility] Comment on above: Result Comment: Test ing performed on Cinegif analyzer using enzymatic creatinine methodology. Performed By: #### Ed WAGNER, BMP #### [place] [address] Electrolyte Balance 10.0 mEq/L Normal 4.0-15.0 [facility] Comment on above: Performed By: #### Ed WAGNER, BMP #### [place] [id number] Glucose [Mass/Vol] 94 mg/dL Normal 82-115 [facility] Comment on above: Performed By: #### Ed WAGNER, BMP #### [place] [id number] Potassium [Moles/Vol] 3.7 mmol/L Normal 3.5-5.0 [facility] Comment on above: Performed By: #### Ed WAGNER, BMP #### [place] [id number] Sodium [Moles/Vol] 142 mmol/L Normal 136-145 [facility] Comment on above: Performed By: #### Ed WAGNER, BMP #### [address] [address] Urea nitrogen [Mass/Vol] 17.0 mg/dL Normal 8.0-22.0 [facility] Comment on above: Performed By: #### Ed WAGNER, BMP #### [address] [address] LABORATORYOrdered By: SYSTEM SYSTEM on 02-19-2025 Calcium [Mass/Vol] 9.3 mg/dL Normal 8.7 - 10. 4 mg/dL ADM SS Chloride [Moles/Vol] 104 mmol/L Normal 98 - 11 0 mEq/L ADM SS CO2 [Moles/Vol] 28 mmol/L Normal 22 - 32 mEq/L ADM SS Creatinine [Mass/Vol] 0.91 mg/dL Normal 0.50 - 1.20 mg/dL AH ADM SS Comment on above: Interpretive Data: T esting performed on Cinegif analyzer using enzymatic creatinine methodology. Electrolyte Balance [...] Basophil, Absolute 0.1 10 3/mcL Normal 0.0-0.3 [facility] Comment on above: Performed By: #### M DW, MG, GFR, BMP, CBC, ANEU, TROPHS, ADIFF #### [address] [address] Basophils/100 WBC (Bld) 1.1 % Normal 0.0-2.5 [facility] Comment on above: Performed By: #### M DW, MG, GFR, BMP, CBC, ANEU, TROPHS, ADIFF #### [address] [address] Eosinophil, Absolute 0.3 10 3/mcL Normal 0.0-0.7 [facility] Comment on above: Performed By: #### M DW, MG, GFR, BMP, CBC, ANEU, TROPHS, ADIFF #### [address] [address] Eosinophils/100 WBC (Bld) 3.5 % Normal 0.0-6.0 [facility] Comment on above: Performed By: #### M DW, MG, GFR, BMP, CBC, ANEU, TROPHS, ADIFF #### [address] [address] Lymphocyte, Absolute 1.7 10 3/mcL Normal 0.9-4.3 [facility] Comment on above: Performed By: #### M DW, MG, GFR, BMP, CBC, ANEU, TROPHS, ADIFF #### [address] [address] Lymphocytes/100 WBC (Bld) 17.9 % Low 20.0-40.0 [facility] Comment on above: Performed By: #### M DW, MG, GFR, BMP, CBC, ANEU, TROPHS, ADIFF #### [address] [address] Monocyte, Absolute 0.7 10 3/mcL Normal 0.1-1.4 [facility] Comment on above: Performed By: #### M DW, MG, GFR, BMP, CBC, ANEU, TROPHS, ADIFF #### [address] [address] Monocytes/100 WBC (Bld) 7.8 % Normal 2.0-13.0 [facility] Comment on above: Performed By: #### M DW, MG, GFR, BMP, CBC, ANEU, TROPHS, ADIFF #### [address] [address] Neutrophils/100 WBC (Bld) 69.7 % Normal 50.0-75.0 [facility] Comment on above: Performed By: #### M DW, MG, GFR, BMP, CBC, ANEU, TROPHS, ADIFF #### [address] [address] .GFRon 02-15-2025 Estimated Glomerular Filtration Rate 51 ml/min/1.73sqm Normal [facility] Comment on above: Result Comment: Stages [...] GFR, BMP, CBC, ANEU, TROPHS, ADIFF #### [address] [address] .NEUABSon 02-15-2025 Neutrophil, Absolute 6.5 10 3/mcL Normal 2.3-8.1 [facility] Comment on above: Performed By: #### M DW, MG, GFR, BMP, CBC, ANEU, TROPHS, ADIFF #### [address] [address] BMPon 02-15-2025 BUN/Creatinine Ratio 16 ratio Normal 7-27 [facility] Comment on above: Performed By: #### M DW, MG, GFR, BMP, CBC, ANEU, TROPHS, ADIFF #### [address] [address] Calcium [Mass/Vol] 9.0 mg/dL Normal 8.4-10.2 [facility] Comment on above: Performed By: #### M DW, MG, GFR, BMP, CBC, ANEU, TROPHS, ADIFF #### [address] [address] Chloride [Moles/Vol] 100 mmol/L Normal 98-107 [facility] Comment on above: Performed By: #### M DW, MG, GFR, BMP, CBC, ANEU, TROPHS, ADIFF #### [address] [address] CO2 [Moles/Vol] 33 mmol/L High 23-31 [facility] Comment on above: Performed By: #### M DW, MG, GFR, BMP, CBC, ANEU, TROPHS, ADIFF #### [place] [id number] Creatinine [Mass/Vol] 1.08 mg/dL High 0.51-0.95 [facility] Comment on above: Performed By: #### M DW, MG, GFR, BMP, CBC, ANEU, TROPHS, ADIFF #### [address] [address] Electrolyte Balance 8.0 mEq/L Normal 4.0-15.0 [facility] Comment on above: Performed By: #### M DW, MG, GFR, BMP, CBC, ANEU, TROPHS, ADIFF #### [address] [address] Glucose [Mass/Vol] 94 mg/dL Normal 83-110 [facility] Comment on above: Performed By: #### M DW, MG, GFR, BMP, CBC, ANEU, TROPHS, ADIFF #### [address] [address] Potassium [Moles/Vol] 2.9 mmol/L Low 3.5-5.1 [facility] Comment on above: Performed By: #### M DW, MG, GFR, BMP, CBC, ANEU, TROPHS, ADIFF #### [address] [address] Sodium [Moles/Vol] 141 mmol/L Normal 136-145 [facility] Comment on above: Performed By: #### M DW, MG, GFR, BMP, CBC, ANEU, TROPHS, ADIFF #### [address] [address] Urea nitrogen [Mass/Vol] 17 mg/dL Normal 7-18 [facility] Comment on above: Performed By: #### M DW, MG, GFR, BMP, CBC, ANEU, TROPHS, ADIFF #### [place] [id number] CBCon 02-15-2025 Erythrocyte distribution width (RBC) [Ratio] 14.0 % Normal 11.5-15.5 [facility] Comment on above: Performed By: #### M DW, MG, GFR, BMP, CBC, ANEU, TROPHS, ADIFF #### [address] [address] Hematocrit (Bld) [Volume fraction] 40.8 % Normal 34.0-46.0 [facility] Comment on above: Performed By: #### M DW, MG, GFR, BMP, CBC, ANEU, TROPHS, ADIFF #### [address] [address] Hgb 13.8 G/dL Normal 12.0-16.0 [facility] Comment on above: Performed By: #### M DW, MG, GFR, BMP, CBC, ANEU, TROPHS, ADIFF #### [address] [address] MCH (RBC) [Entitic mass] 28.3 pg Normal 27.0-33.0 [facility] Comment on above: Performed By: #### M DW, MG, GFR, BMP, CBC, ANEU, TROPHS, ADIFF #### [address] [address] MCHC 33.8 G/dL Normal 32.0-36.0 [facility] Comment on above: Performed By: #### M DW, MG, GFR, BMP, CBC, ANEU, TROPHS, ADIFF #### [address] [address] MCV (RBC) [Entitic vol] 83.8 fL Normal 80.0-99.0 [facility] Comment on above: Performed By: #### M DW, MG, GFR, BMP, CBC, ANEU, TROPHS, ADIFF #### [address] [address] Platelet 299 10 3/mcL Normal 150-450 [facility] Comment on above: Performed By: #### M DW, MG, GFR, BMP, CBC, ANEU, TROPHS, ADIFF #### [address] [address] Platelet mean volume (Bld) [Entitic vol] 7.9 fL Normal 6.6-10.5 [facility] Comment on above: Performed By: #### M DW, MG, GFR, BMP, CBC, ANEU, TROPHS, ADIFF #### [address] [address] RBC 4.87 10 6/mcL Normal 4.10-5.30 [facility] Comment on above: Performed By: #### M DW, MG, GFR, BMP, CBC, ANEU, TROPHS, ADIFF #### [address] [address] WBC 9.3 10 3/mcL Normal 4.5-10.8 [facility] Comment on above: Performed By: #### M DW, MG, GFR, BMP, CBC, ANEU, TROPHS, ADIFF #### [address] [address] LABORATORYOrdered By: SYSTEM SYSTEM on 02-15-2025 Basophils [...] Comment on above: Interpretive Data: Jatinder samano [employer] (CHEST, 1991, 102:312S-25S) [...] Coag (PPP) [Time] 14.1 s Normal 9.0-14.4 [facility] Comment on above: Performed By: #### M DW, MG, GFR, BMP, CBC, ANEU, TROPHS, ADIFF #### [place] [id number] [place], [place] [address] PT International Ratio 1.2 Normal [facility] Comment on above: Result Comment: [employer] (CHEST, 1992, [id number]) recommended therapeutic range for oral anticoagulant therapy is: LOW RISK: Prophylaxis of venous thrombosis INR: 2.0-3.0 Treatment of pulmonary embolism 2.0-3.0 Prevention of systemic embolism 2.0-3.0 HIGH RISK: Mechanical prosthetic valves 2.5-3.5 Performed By: #### M DW, MG, GFR, BMP, CBC, ANEU, TROPHS, ADIFF #### [address] [address] .GFRon 01-11-2025 Estimated Glomerular Filtration Rate 44 ml/min/1.73sqm Normal [facility] Comment on above: Result Comment: Stages [...] GFR, BMP, CBC, ANEU, TROPHS, ADIFF #### [place] [id number] [place], [place] [address] BMPon 01-11-2025 BUN/Creatinine Ratio 21 ratio Normal 7-27 [facility] Comment on above: Performed By: #### M DW, MG, GFR, BMP, CBC, ANEU, TROPHS, ADIFF #### [place] [address] Calcium [Mass/Vol] 9.3 mg/dL Normal 8.4-10.2 [facility] Comment on above: Performed By: #### M DW, MG, GFR, BMP, CBC, ANEU, TROPHS, ADIFF #### [place] [address] Chloride [Moles/Vol] 104 mmol/L Normal 98-107 [facility] Comment on above: Performed By: #### M DW, MG, GFR, BMP, CBC, ANEU, TROPHS, ADIFF #### [place] [address] CO2 [Moles/Vol] 34 mmol/L High 23-31 [facility] Comment on above: Performed By: #### M DW, MG, GFR, BMP, CBC, ANEU, TROPHS, ADIFF #### [place] [address] Creatinine [Mass/Vol] 1.23 mg/dL High 0.51-0.95 [facility] Comment on above: Performed By: #### M DW, MG, GFR, BMP, CBC, ANEU, TROPHS, ADIFF #### [place] [address] Electrolyte Balance 5.0 mEq/L Normal 4.0-15.0 [facility] Comment on above: Performed By: #### M DW, MG, GFR, BMP, CBC, ANEU, TROPHS, ADIFF #### [place] [address] Glucose [Mass/Vol] 91 mg/dL Normal 83-110 [facility] Comment on above: Performed By: #### M DW, MG, GFR, BMP, CBC, ANEU, TROPHS, ADIFF #### [place] [id number] [place], [place] [address] Potassium [Moles/Vol] 4.5 mmol/L Normal 3.5-5.1 [facility] Comment on above: Performed By: #### M DW, MG, GFR, BMP, CBC, ANEU, TROPHS, ADIFF #### [place] [id number] [place], [place] [address] Sodium [Moles/Vol] 143 mmol/L Normal 136-145 [facility] Comment on above: Performed By: #### M DW, MG, GFR, BMP, CBC, ANEU, TROPHS, ADIFF #### [place] [id number] [place], [place] [address] Urea nitrogen [Mass/Vol] 26 mg/dL High 7-18 [facility] Comment on above: Performed By: #### M DW, MG, GFR, BMP, CBC, ANEU, TROPHS, ADIFF #### [address] [address] LABORATORYOrdered By: SYSTEM SYSTEM on 01-11-2025 Calcium [...] 01-11-2025 Magnesium [Mass/Vol] 2.2 mg/dL Normal 1.8-2.4 [facility] Comment on above: Performed By: #### M DW, MG, GFR, BMP, CBC, ANEU, TROPHS, ADIFF #### [address] [address] .Auto Diffon 01-01-2025 Basophil, Absolute 0.1 10 3/mcL Normal 0.0-0.3 [facility] Comment on above: Performed By: #### A COLLIN, GFR, CMP, PBNP, CBC, TSH, ADIFF #### [address] [address] Basophils/100 WBC (Bld) 1.3 % Normal 0.0-2.5 [facility] Comment on above: Performed By: #### A COLLIN, GFR, CMP, PBNP, CBC, TSH, ADIFF #### [address] [address] Eosinophil, Absolute 0.3 10 3/mcL Normal 0.0-0.7 [facility] Comment on above: Performed By: #### A COLLIN, GFR, CMP, PBNP, CBC, TSH, ADIFF #### [address] [address] Eosinophils/100 WBC (Bld) 3.4 % Normal 0.0-6.0 [facility] Comment on above: Performed By: #### A COLLIN, GFR, CMP, PBNP, CBC, TSH, ADIFF #### [address] [address] Lymphocyte, Absolute 1.3 10 3/mcL Normal 0.9-4.3 [facility] Comment on above: Performed By: #### A COLLIN, GFR, CMP, PBNP, CBC, TSH, ADIFF #### [address] [address] Lymphocytes/100 WBC (Bld) 13.7 % Low 20.0-40.0 [facility] Comment on above: Performed By: #### A COLLIN, GFR, CMP, PBNP, CBC, TSH, ADIFF #### [address] [address] Monocyte, Absolute 1.0 10 3/mcL Normal 0.1-1.4 [facility] Comment on above: Performed By: #### A COLLIN, GFR, CMP, PBNP, CBC, TSH, ADIFF #### [address] [address] Monocytes/100 WBC (Bld) 11.1 % Normal 2.0-13.0 [facility] Comment on above: Performed By: #### A COLLIN, GFR, CMP, PBNP, CBC, TSH, ADIFF #### [address] [address] Neutrophils/100 WBC (Bld) 70.5 % Normal 50.0-75.0 [facility] Comment on above: Performed By: #### A COLLIN, GFR, CMP, PBNP, CBC, TSH, ADIFF #### [address] [address] .GFRon 01-01-2025 Estimated Glomerular Filtration Rate 43 ml/min/1.73sqm Normal [facility] Comment on above: Result Comment: Stages [...] GFR, BMP, CBC, ANEU, TROPHS, ADIFF #### [address] [address] .NEUABSon 01-01-2025 Neutrophil, Absolute 6.5 10 3/mcL Normal 2.3-8.1 [facility] Comment on above: Performed By: #### M DW, MG, GFR, BMP, CBC, ANEU, TROPHS, ADIFF #### [address] [address] CBCon 01-01-2025 Erythrocyte distribution width (RBC) [Ratio] 15.0 % Normal 11.5-15.5 [facility] Comment on above: Performed By: #### A COLLIN, GFR, CMP, PBNP, CBC, TSH, ADIFF #### [address] [address] Hematocrit (Bld) [Volume fraction] 43.3 % Normal 34.0-46.0 [facility] Comment on above: Performed By: #### A COLLIN, GFR, CMP, PBNP, CBC, TSH, ADIFF #### [address] [address] Hgb 14.3 G/dL Normal 12.0-16.0 [facility] Comment on above: Performed By: #### A COLLIN, GFR, CMP, PBNP, CBC, TSH, ADIFF #### [address] [address] MCH (RBC) [Entitic mass] 27.9 pg Normal 27.0-33.0 [facility] Comment on above: Performed By: #### A COLLIN, GFR, CMP, PBNP, CBC, TSH, ADIFF #### [address] [address] MCHC 33.0 G/dL Normal 32.0-36.0 [facility] Comment on above: Performed By: #### A COLLIN, GFR, CMP, PBNP, CBC, TSH, ADIFF #### [address] [address] MCV (RBC) [Entitic vol] 84.5 fL Normal 80.0-99.0 [facility] Comment on above: Performed By: #### A COLLIN, GFR, CMP, PBNP, CBC, TSH, ADIFF #### [address] [address] Platelet 293 10 3/mcL Normal 150-450 [facility] Comment on above: Performed By: #### A COLLIN, GFR, CMP, PBNP, CBC, TSH, ADIFF #### [address] [address] Platelet mean volume (Bld) [Entitic vol] 8.3 fL Normal 6.6-10.5 [facility] Comment on above: Performed By: #### A COLLIN, GFR, CMP, PBNP, CBC, TSH, ADIFF #### [address] [address] RBC 5.13 10 6/mcL Normal 4.10-5.30 [facility] Comment on above: Performed By: #### A COLLIN, GFR, CMP, PBNP, CBC, TSH, ADIFF #### [address] [address] WBC 9.2 10 3/mcL Normal 4.5-10.8 [facility] Comment on above: Performed By: #### A COLLIN, GFR, CMP, PBNP, CBC, TSH, ADIFF #### [place] [id number] CMPon 01-01-2025 Albumin Level 3.7 G/dL Normal 3.4-4.8 [facility] Comment on above: Performed By: #### M DW, MG, GFR, BMP, CBC, ANEU, TROPHS, ADIFF #### [address] [address] Albumin/Globulin [Mass ratio] 1.0 {ratio} Low 1.1-2.5 [facility] Comment on above: Performed By: #### M DW, MG, GFR, BMP, CBC, ANEU, TROPHS, ADIFF #### [address] [address] ALP [Catalytic activity/Vol] 96 U/L Normal 40-135 [facility] Comment on above: Performed By: #### M DW, MG, GFR, BMP, CBC, ANEU, TROPHS, ADIFF #### [address] [address] ALT [Catalytic activity/Vol] 21 U/L Normal 14-59 [facility] Comment on above: Performed By: #### M DW, MG, GFR, BMP, CBC, ANEU, TROPHS, ADIFF #### [address] [address] AST [Catalytic activity/Vol] 12 U/L Normal 10-40 [facility] Comment on above: Performed By: #### M DW, MG, GFR, BMP, CBC, ANEU, TROPHS, ADIFF #### [address] [address] Bili Total 0.3 mg/dL Normal 0.2-1.0 [facility] Comment on above: Result Comment: Use of this assay is not recommended for patients undergoing treatment with eltrombopag due to the potential for falsely elevated results. Performed By: #### M DW, MG, GFR, BMP, CBC, ANEU, TROPHS, ADIFF #### [address] [address] BUN/Creatinine Ratio 21 ratio Normal 7-27 [facility] Comment on above: Performed By: #### M DW, MG, GFR, BMP, CBC, ANEU, TROPHS, ADIFF #### [address] [address] Calcium [Mass/Vol] 9.3 mg/dL Normal 8.4-10.2 [facility] Comment on above: Performed By: #### M DW, MG, GFR, BMP, CBC, ANEU, TROPHS, ADIFF #### [place] [address] Chloride [Moles/Vol] 104 mmol/L Normal 98-107 [facility] Comment on above: Performed By: #### M DW, MG, GFR, BMP, CBC, ANEU, TROPHS, ADIFF #### [place] [address] CO2 [Moles/Vol] 32 mmol/L High 23-31 [facility] Comment on above: Performed By: #### M DW, MG, GFR, BMP, CBC, ANEU, TROPHS, ADIFF #### [place] [address] Creatinine [Mass/Vol] 1.26 mg/dL High 0.51-0.95 [facility] Comment on above: Performed By: #### M DW, MG, GFR, BMP, CBC, ANEU, TROPHS, ADIFF #### [place] [address] Electrolyte Balance 7.0 mEq/L Normal 4.0-15.0 [facility] Comment on above: Performed By: #### M DW, MG, GFR, BMP, CBC, ANEU, TROPHS, ADIFF #### [place] [address] Globulin 3.6 G/dL Normal 2.7-4.4 [facility] Comment on above: Performed By: #### M DW, MG, GFR, BMP, CBC, ANEU, TROPHS, ADIFF #### [place] [address] Glucose [Mass/Vol] 55 mg/dL Low 83-110 [facility] Comment on above: Performed By: #### M DW, MG, GFR, BMP, CBC, ANEU, TROPHS, ADIFF #### [address] [address] Potassium [Moles/Vol] 4.4 mmol/L Normal 3.5-5.1 [facility] Comment on above: Performed By: #### M DW, MG, GFR, BMP, CBC, ANEU, TROPHS, ADIFF #### [address] [address] Sodium [Moles/Vol] 143 mmol/L Normal 136-145 [facility] Comment on above: Performed By: #### M DW, MG, GFR, BMP, CBC, ANEU, TROPHS, ADIFF #### [address] [address] Total Protein 7.3 G/dL Normal 6.4-8.2 [facility] Comment on above: Performed By: #### M DW, MG, GFR, BMP, CBC, ANEU, TROPHS, ADIFF #### [address] [address] Urea nitrogen [Mass/Vol] 26 mg/dL High 7-18 [facility] Comment on above: Performed By: #### M DW, MG, GFR, BMP, CBC, ANEU, TROPHS, ADIFF #### [address] [address] LABORATORYOrdered By: Óscar Srivastava on 01-01-2025 Color [...] B (Bld) [Mass/Vol] 1625 pg/mL High 0-450 [facility] Comment on above: Result Comment: NT-p roBNP results of less than 300 pg/mL effectively rules out acute congestive heart failure with 99% negative predictive value. Performed By: #### M DW, MG, GFR, BMP, CBC, ANEU, TROPHS, ADIFF #### [address] [address] TSHon 01-01-2025 TSH Qn 1.75 m[IU]/L Normal 0.36-3.74 [facility] Comment on above: Performed By: #### M DW, MG, GFR, BMP, CBC, ANEU, TROPHS, ADIFF #### [address] [address] UAon 01-01-2025 Color (U) Yellow Normal Yellow [facility] Comment on above: Performed By: #### M DW, MG, GFR, BMP, CBC, ANEU, TROPHS, ADIFF #### [address] [address] Glucose (U) [Mass/Vol] mg/dL Abnormal Negative [facility] Comment on above: Performed By: #### M DW, MG, GFR, BMP, CBC, ANEU, TROPHS, ADIFF #### [address] [address] Ketones Ql (U) Negative Normal Negative [facility] Comment on above: Performed By: #### M DW, MG, GFR, BMP, CBC, ANEU, TROPHS, ADIFF #### [address] [address] UA Appear Clear Normal Clear [facility] Comment on above: Performed By: #### M DW, MG, GFR, BMP, CBC, ANEU, TROPHS, ADIFF #### [address] [address] UA Blood Negative Normal Negative [facility] Comment on above: Performed By: #### M DW, MG, GFR, BMP, CBC, ANEU, TROPHS, ADIFF #### [address] [address] UA Leuk Est Negative Normal Negative [facility] Comment on above: Performed By: #### M DW, MG, GFR, BMP, CBC, ANEU, TROPHS, ADIFF #### [place] [address] UA Nitrite Negative Normal Negative [facility] Comment on above: Performed By: #### M DW, MG, GFR, BMP, CBC, ANEU, TROPHS, ADIFF #### [address] [address] UA pH 6.0 Normal 5.0 - 8.0 [facility] Comment on above: Performed By: #### M DW, MG, GFR, BMP, CBC, ANEU, TROPHS, ADIFF #### [address] [address] UA Protein Negative Normal Negative [facility] Comment on above: Performed By: #### M DW, MG, GFR, BMP, CBC, ANEU, TROPHS, ADIFF #### [address] [address] UA Spec Grav 1.015 Normal 1.015-1.025 [facility] Comment on above: Performed By: #### M DW, MG, GFR, BMP, CBC, ANEU, TROPHS, ADIFF #### [place] [address] UA Specimen Type Clean Catch Normal [facility] Comment on above: Performed By: #### M DW, MG, GFR, BMP, CBC, ANEU, TROPHS, ADIFF #### [place] [address] UA Urobilinogen 0.2 E.U./dL Normal 0.2-1.0 [facility] Comment on above: Performed By: #### M DW, MG, GFR, BMP, CBC, ANEU, TROPHS, ADIFF #### [address] [address] Urobilinogen (U) [Mass/Vol] Negative Normal Negative [facility] Comment on above: Performed By: #### M DW, MG, GFR, BMP, CBC, ANEU, TROPHS, ADIFF #### [place] [address] XR CHEST 2 VIEWSon 5 XR CHEST [...] 01/01/2025 3:15:11 PM Ordering Provider: ASIM DIEHL [facility] .GFRon 09-12-2024 Estimated Glomerular Filtration Rate 49 ml/min/1.73sqm [facility] Comment on above: Result Comment: Stages [...] GFR, CMP, PBNP, CBC, TSH, ADIFF #### [facility] [address] [place], [place] [address] BMPon 09-12-2024 BUN/Creatinine Ratio 22 ratio Normal 7-27 [facility] Comment on above: Performed By: #### A COLLIN, GFR, CMP, PBNP, CBC, TSH, ADIFF #### [facility] [address] [place], [place] [address] Calcium [Mass/Vol] 8.5 mg/dL Normal 8.4-10.2 [facility] Comment on above: Performed By: #### A COLLIN, GFR, CMP, PBNP, CBC, TSH, ADIFF #### [place] [address] Chloride [Moles/Vol] 103 mmol/L Normal 98-107 [facility] Comment on above: Performed By: #### A COLLIN, GFR, CMP, PBNP, CBC, TSH, ADIFF #### [place] [address] CO2 [Moles/Vol] 30 mmol/L Normal 23-31 [facility] Comment on above: Performed By: #### A COLLIN, GFR, CMP, PBNP, CBC, TSH, ADIFF #### [place] [address] Creatinine [Mass/Vol] 1.12 mg/dL High 0.51-0.95 [facility] Comment on above: Performed By: #### A COLLIN, GFR, CMP, PBNP, CBC, TSH, ADIFF #### [place] [address] Electrolyte Balance 7.0 mEq/L Normal 4.0-15.0 [facility] Comment on above: Performed By: #### A COLLIN, GFR, CMP, PBNP, CBC, TSH, ADIFF #### [place] [address] Glucose [Mass/Vol] 84 mg/dL Normal 83-110 [facility] Comment on above: Performed By: #### A COLLIN, GFR, CMP, PBNP, CBC, TSH, ADIFF #### [place] [address] Potassium [Moles/Vol] 4.1 mmol/L Normal 3.5-5.1 [facility] Comment on above: Performed By: #### A COLLIN, GFR, CMP, PBNP, CBC, TSH, ADIFF #### [place] [id number] Sodium [Moles/Vol] 140 mmol/L Normal 136-145 [facility] Comment on above: Performed By: #### A COLLIN, GFR, CMP, PBNP, CBC, TSH, ADIFF #### [facility] [address] [place], [place] [address] Urea nitrogen [Mass/Vol] 25 mg/dL High 7-18 [facility] Comment on above: Performed By: #### A COLLIN, GFR, CMP, PBNP, CBC, TSH, ADIFF #### [place] [id number] [place], [place] [address] CAIONon 09-12-2024 Calcium Ionized 1.10 mmol/L Low 1.12-1.32 [facility] Comment on above: Performed By: #### A COLLIN, GFR, CMP, PBNP, CBC, TSH, ADIFF #### [place] [id number] [place], [place] [address] LABORATORYOrdered By: SYSTEM SYSTEM on 09-12-2024 25-hydroxyvitamin [...] 09-12-2024 Magnesium [Mass/Vol] 2.3 mg/dL Normal 1.8-2.4 [facility] Comment on above: Performed By: #### A COLLIN, GFR, CMP, PBNP, CBC, TSH, ADIFF #### [address] [address] PHOSon 09-12-2024 Phosphate [Mass/Vol] 4.2 mg/dL High 2.3-4.1 [facility] Comment on above: Performed By: #### A COLLIN, GFR, CMP, PBNP, CBC, TSH, ADIFF #### [address] [address] VIDHon 09-12-2024 Vit. D 25-Hydroxy 17.6 ng/mL Normal [facility] Comment on above: Result Comment: Inte rpretive Values Based on Total 25(OH) Vitamin D: Deficient <20 ng/mL Insufficient 20 - <30 ng/mL Sufficient 30-100 ng/mL Performed By: #### A COLLIN, GFR, CMP, PBNP, CBC, TSH, ADIFF #### [place] [address] [address] .Auto Diffon 09-01-2024 Basophil, Absolute 0.1 10 3/mcL Normal 0.0-0.3 [facility] Comment on above: Performed By: #### G FR, BMP #### [address] [address] Basophils/100 WBC (Bld) 0.9 % Normal 0.0-2.5 [facility] Comment on above: Performed By: #### G FR, BMP #### [address] [address] Eosinophil, Absolute 0.3 10 3/mcL Normal 0.0-0.7 [facility] Comment on above: Performed By: #### G FR, BMP #### [address] [address] Eosinophils/100 WBC (Bld) 3.5 % Normal 0.0-6.0 [facility] Comment on above: Performed By: #### G FR, BMP #### [address] [address] Lymphocyte, Absolute 0.9 10 3/mcL Normal 0.9-4.3 [facility] Comment on above: Performed By: #### G FR, BMP #### [address] [address] Lymphocytes/100 WBC (Bld) 11.9 % Low 20.0-40.0 [facility] Comment on above: Performed By: #### G FR, BMP #### [address] [address] Monocyte, Absolute 0.9 10 3/mcL Normal 0.1-1.4 [facility] Comment on above: Performed By: #### G FR, BMP #### [address] [address] Monocytes/100 WBC (Bld) 12.2 % Normal 2.0-13.0 [facility] Comment on above: Performed By: #### G , BMP #### [address] [address] Neutrophils/100 WBC (Bld) 71.5 % Normal 50.0-75.0 [facility] Comment on above: Performed By: #### Ed WAGNER, BMP #### [address] [address] .GFRon 09-01-2024 Estimated Glomerular Filtration Rate 45 ml/min/1.73sqm Normal [facility] Comment on above: Result Comment: Stages [...] Performed By: #### G , BMP #### [address] [address] .NEUABSon 09-01-2024 Neutrophil, Absolute 5.4 10 3/mcL Normal 2.3-8.1 [facility] Comment on above: Performed By: #### Ed , BMP #### [address] [address] [facility] BUN/Creatinine Ratio 22.5 ratio High 10.0-22.0 [facility] Comment on above: Performed By: #### Ed WAGNER, BMP #### [address] [address] Calcium [Mass/Vol] 7.5 mg/dL Low 8.7-10.4 [facility] Comment on above: Performed By: #### Ed WAGNER, BMP #### [address] [address] Chloride [Moles/Vol] 100 mmol/L Normal 98-110 [facility] Comment on above: Performed By: #### Ed WAGNER, BMP #### [address] [address] CO2 [Moles/Vol] 30 mmol/L Normal 22-32 [facility] Comment on above: Performed By: #### G FR, BMP #### [address] [address] Creatinine [Mass/Vol] 1.20 mg/dL Normal 0.50-1.20 [facility] Comment on above: Result Comment: Test ing performed on Cinegif analyzer using enzymatic creatinine methodology. Performed By: #### Ed WAGNER, BMP #### [place] [id number] Electrolyte Balance 7.0 mEq/L Normal 4.0-15.0 [facility] Comment on above: Performed By: #### Ed WAGNER, BMP #### [place] [id number] Glucose [Mass/Vol] 84 mg/dL Normal 82-115 [facility] Comment on above: Performed By: #### Ed WAGNER, BMP #### [address] [address] Potassium [Moles/Vol] 3.8 mmol/L Normal 3.5-5.0 [facility] Comment on above: Performed By: #### Ed WAGNER, BMP #### [address] [address] Sodium [Moles/Vol] 137 mmol/L Normal 136-145 [facility] Comment on above: Performed By: #### Ed FR, BMP #### [address] [address] Urea nitrogen [Mass/Vol] 27.0 mg/dL High 8.0-22.0 [facility] Comment on above: Performed By: #### G FR, BMP #### [address] [address] CBCon 09-01-2024 Erythrocyte distribution width (RBC) [Ratio] 13.6 % Normal 11.5-15.5 [facility] Comment on above: Performed By: #### G FR, BMP #### [place] [address] Hematocrit (Bld) [Volume fraction] 32.8 % Low 34.0-46.0 [facility] Comment on above: Performed By: #### G FR, BMP #### [place] [address] Hgb 11.3 G/dL Low 12.0-16.0 [facility] Comment on above: Performed By: #### G FR, BMP #### [place] [address] MCH (RBC) [Entitic mass] 30.1 pg Normal 27.0-33.0 [facility] Comment on above: Performed By: #### G FR, BMP #### [place] [address] MCHC 34.4 G/dL Normal 32.0-36.0 [facility] Comment on above: Performed By: #### G FR, BMP #### [place] [address] MCV (RBC) [Entitic vol] 87.4 fL Normal 80.0-99.0 [facility] Comment on above: Performed By: #### G FR, BMP #### [place] [address] Platelet 284 10 3/mcL Normal 150-450 [facility] Comment on above: Performed By: #### G FR, BMP #### [place] [address] Platelet mean volume (Bld) [Entitic vol] 8.2 fL Normal 6.6-10.5 [facility] Comment on above: Performed By: #### G FR, BMP #### [place] [address] RBC 3.75 10 6/mcL Low 4.10-5.30 [facility] Comment on above: Performed By: #### G FR, BMP #### [place] [address] WBC 7.6 10 3/mcL Normal 4.5-10.8 [facility] Comment on above: Performed By: #### G FR, BMP #### [address] [address] MGon 09-01-2024 Magnesium [Mass/Vol] 2.5 mg/dL High 1.6-2.4 [facility] Comment on above: Performed By: #### G FR, BMP #### [address] [address] .Auto Diffon 08-31-2024 Basophil, Absolute 0.1 10 3/mcL Normal 0.0-0.3 [facility] Comment on above: Performed By: #### A COLLIN, MG, BMP, ADIFF, GFR, CBC, HFP #### [address] [address] Basophils/100 WBC (Bld) 1.2 % Normal 0.0-2.5 [facility] Comment on above: Performed By: #### A COLLIN, MG, BMP, ADIFF, GFR, CBC, HFP #### [address] [address] Eosinophil, Absolute 0.3 10 3/mcL Normal 0.0-0.7 [facility] Comment on above: Performed By: #### A COLLIN, MG, BMP, ADIFF, GFR, CBC, HFP #### [address] [address] Eosinophils/100 WBC (Bld) 3.4 % Normal 0.0-6.0 [facility] Comment on above: Performed By: #### A COLLIN, MG, BMP, ADIFF, GFR, CBC, HFP #### [address] [address] Lymphocyte, Absolute 1.1 10 3/mcL Normal 0.9-4.3 [facility] Comment on above: Performed By: #### A COLLIN, MG, BMP, ADIFF, GFR, CBC, HFP #### [address] [address] Lymphocytes/100 WBC (Bld) 13.9 % Low 20.0-40.0 [facility] Comment on above: Performed By: #### A COLLIN, MG, BMP, ADIFF, GFR, CBC, HFP #### [address] [address] Monocyte, Absolute 1.0 10 3/mcL Normal 0.1-1.4 [facility] Comment on above: Performed By: #### A COLLIN, MG, BMP, ADIFF, GFR, CBC, HFP #### [address] [address] Monocytes/100 WBC (Bld) 12.2 % Normal 2.0-13.0 [facility] Comment on above: Performed By: #### A COLLIN, MG, BMP, ADIFF, GFR, CBC, HFP #### [address] [address] Neutrophils/100 WBC (Bld) 69.3 % Normal 50.0-75.0 [facility] Comment on above: Performed By: #### A COLLIN, MG, BMP, ADIFF, GFR, CBC, HFP #### [place] [id number] .GFRon 08-31-2024 Estimated Glomerular Filtration Rate 39 ml/min/1.73sqm Normal [facility] Comment on above: Result Comment: Stages [...] MG, BMP, ADIFF, GFR, CBC, HFP #### [address] [address] .NEUABSon 08-31-2024 Neutrophil, Absolute 5.4 10 3/mcL Normal 2.3-8.1 [facility] Comment on above: Performed By: #### A COLLIN, MG, BMP, ADIFF, GFR, CBC, HFP #### [address] [address] BMPon 08-31-2024 BUN/Creatinine Ratio 23.0 ratio High 10.0-22.0 [facility] Comment on above: Performed By: #### A COLLIN, MG, BMP, ADIFF, GFR, CBC, HFP #### [place] [id number] Calcium [Mass/Vol] 7.5 mg/dL Low 8.7-10.4 [facility] Comment on above: Performed By: #### A COLLIN, MG, BMP, ADIFF, GFR, CBC, HFP #### [place] [address] Chloride [Moles/Vol] 101 mmol/L Normal 98-110 [facility] Comment on above: Performed By: #### A COLLIN, MG, BMP, ADIFF, GFR, CBC, HFP #### [place] [id number] CO2 [Moles/Vol] 30 mmol/L Normal 22-32 [facility] Comment on above: Performed By: #### A COLLIN, MG, BMP, ADIFF, GFR, CBC, HFP #### [place] [address] Creatinine [Mass/Vol] 1.35 mg/dL High 0.50-1.20 [facility] Comment on above: Result Comment: Test ing performed on Cinegif analyzer using enzymatic creatinine methodology. Performed By: #### A COLLIN, MG, BMP, ADIFF, GFR, CBC, HFP #### [place] [id number] Electrolyte Balance 8.0 mEq/L Normal 4.0-15.0 [facility] Comment on above: Performed By: #### A COLLIN, MG, BMP, ADIFF, GFR, CBC, HFP #### [place] [id number] Glucose [Mass/Vol] 87 mg/dL Normal 82-115 [facility] Comment on above: Performed By: #### A COLLIN, MG, BMP, ADIFF, GFR, CBC, HFP #### [place] [id number] Potassium [Moles/Vol] 3.9 mmol/L Normal 3.5-5.0 [facility] Comment on above: Performed By: #### A COLLIN, MG, BMP, ADIFF, GFR, CBC, HFP #### [place] [id number] Sodium [Moles/Vol] 139 mmol/L Normal 136-145 [facility] Comment on above: Performed By: #### A COLLIN, MG, BMP, ADIFF, GFR, CBC, HFP #### [place] [address] Urea nitrogen [Mass/Vol] 31.0 mg/dL High 8.0-22.0 [facility] Comment on above: Performed By: #### A COLLIN, MG, BMP, ADIFF, GFR, CBC, HFP #### [place] [id number] CBCon 08-31-2024 Erythrocyte distribution width (RBC) [Ratio] 13.4 % Normal 11.5-15.5 [facility] Comment on above: Performed By: #### A COLLIN, MG, BMP, ADIFF, GFR, CBC, HFP #### [place] [address] Hematocrit (Bld) [Volume fraction] 33.4 % Low 34.0-46.0 [facility] Comment on above: Performed By: #### A COLILN, MG, BMP, ADIFF, GFR, CBC, HFP #### [place] [address] Hgb 11.2 G/dL Low 12.0-16.0 [facility] Comment on above: Performed By: #### A COLLIN, MG, BMP, ADIFF, GFR, CBC, HFP #### [place] [address] MCH (RBC) [Entitic mass] 29.9 pg Normal 27.0-33.0 [facility] Comment on above: Performed By: #### A COLLIN, MG, BMP, ADIFF, GFR, CBC, HFP #### [address] [address] MCHC 33.5 G/dL Normal 32.0-36.0 [facility] Comment on above: Performed By: #### A COLLIN, MG, BMP, ADIFF, GFR, CBC, HFP #### [place] [address] MCV (RBC) [Entitic vol] 89.5 fL Normal 80.0-99.0 [facility] MAIN Comment on above: Performed By: #### A COLLIN, MG, BMP, ADIFF, GFR, CBC, HFP #### [place] [address] Platelet 271 10 3/mcL Normal 150-450 [facility] MAIN Comment on above: Performed By: #### A COLLIN, MG, BMP, ADIFF, GFR, CBC, HFP #### [place] [address] Platelet mean volume (Bld) [Entitic vol] 7.9 fL Normal 6.6-10.5 [facility] MAIN Comment on above: Performed By: #### A COLLIN, MG, BMP, ADIFF, GFR, CBC, HFP #### [place] [id number] RBC 3.73 10 6/mcL Low 4.10-5.30 [facility] MAIN Comment on above: Performed By: #### A COLLIN, MG, BMP, ADIFF, GFR, CBC, HFP #### [place] [id number] WBC 7.8 10 3/mcL Normal 4.5-10.8 [facility] MAIN Comment on above: Performed By: #### A COLLIN, MG, BMP, ADIFF, GFR, CBC, HFP #### [place] [address] MGon 08-31-2024 Magnesium [Mass/Vol] 2.5 mg/dL High 1.6-2.4 [facility] MAIN Comment on above: Performed By: #### A COLLIN, MG, BMP, ADIFF, GFR, CBC, HFP #### [address] [address] .GFRon 08-30-2024 Estimated Glomerular Filtration Rate 34 ml/min/1.73sqm [facility] MAIN Comment on above: Result Comment: [...] Performed By: #### G FR, BMP #### [place] [address] Estimated Glomerular Filtration Rate 42 ml/min/1.73sqm [facility] MAIN Comment on above: Result Comment: [...] MG, BMP, ADIFF, GFR, CBC, HFP #### [address] [address] [facility] BUN/Creatinine Ratio 21.3 ratio Normal 10.0-22.0 [facility] MAIN Comment on above: Performed By: #### A COLLIN, MG, BMP, ADIFF, GFR, CBC, HFP #### [place] [address] Calcium [Mass/Vol] 7.9 mg/dL Low 8.7-10.4 [facility] MAIN Comment on above: Performed By: #### A COLLIN, MG, BMP, ADIFF, GFR, CBC, HFP #### [address] [address] Chloride [Moles/Vol] 102 mmol/L Normal 98-110 [facility] MAIN Comment on above: Performed By: #### A COLLIN, MG, BMP, ADIFF, GFR, CBC, HFP #### [address] [address] CO2 [Moles/Vol] 28 mmol/L Normal 22-32 [facility] MAIN Comment on above: Performed By: #### A COLLIN, MG, BMP, ADIFF, GFR, CBC, HFP #### [address] [address] Creatinine [Mass/Vol] 1.27 mg/dL High 0.50-1.20 [facility] MAIN Comment on above: Result Comment: Test ing performed on Cinegif analyzer using enzymatic creatinine methodology. Performed By: #### A COLLIN, MG, BMP, ADIFF, GFR, CBC, HFP #### [place] [id number] Electrolyte Balance 9.0 mEq/L Normal 4.0-15.0 [facility] MAIN Comment on above: Performed By: #### A COLLIN, MG, BMP, ADIFF, GFR, CBC, HFP #### [address] [address] Glucose [Mass/Vol] 90 mg/dL Normal 82-115 [facility] MAIN Comment on above: Performed By: #### A COLLIN, MG, BMP, ADIFF, GFR, CBC, HFP #### [address] [address] Potassium [Moles/Vol] 4.0 mmol/L Normal 3.5-5.0 [facility] MAIN Comment on above: Performed By: #### A COLLIN, MG, BMP, ADIFF, GFR, CBC, HFP #### [place] [id number] Sodium [Moles/Vol] 139 mmol/L Normal 136-145 [facility] MAIN Comment on above: Performed By: #### A COLLIN, MG, BMP, ADIFF, GFR, CBC, HFP #### [place] [id number] Urea nitrogen [Mass/Vol] 27.0 mg/dL High 8.0-22.0 [facility] MAIN Comment on above: Performed By: #### A COLLIN, MG, BMP, ADIFF, GFR, CBC, HFP #### [address] [address] CMPon 08-30-2024 Albumin Level 3.4 G/dL Normal 3.2-4.8 [facility] MAIN Comment on above: Performed By: #### G FR, BMP #### [place] [id number] Albumin/Globulin [Mass ratio] 1.2 {ratio} Normal 0.9-1.6 [facility] MAIN Comment on above: Performed By: #### G FR, BMP #### [place] [id number] ALP [Catalytic activity/Vol] 74 U/L Normal 38-126 [facility] MAIN Comment on above: Performed By: #### G FR, BMP #### [place] [id number] ALT [Catalytic activity/Vol] 8 U/L Low 10-49 [facility] MAIN Comment on above: Performed By: #### G FR, BMP #### [place] [id number] AST [Catalytic activity/Vol] 13 U/L Normal 8-34 [facility] MAIN Comment on above: Performed By: #### G FR, BMP #### [place] [id number] Bili Total 0.30 mg/dL Normal 0.20-1.20 [facility] MAIN Comment on above: Result Comment: Use of this assay is not recommended for patients undergoing treatment with eltrombopag due to the potential for falsely elevated results. Performed By: #### G FR, BMP #### [place] [address] BUN/Creatinine Ratio 19.6 ratio Normal 10.0-22.0 [facility] MAIN Comment on above: Performed By: #### G FR, BMP #### [address] [address] Calcium [Mass/Vol] 7.6 mg/dL Low 8.7-10.4 [facility] MAIN Comment on above: Performed By: #### G FR, BMP #### [address] [address] Chloride [Moles/Vol] 101 mmol/L Normal 98-110 [facility] MAIN Comment on above: Performed By: #### G FR, BMP #### [address] [address] CO2 [Moles/Vol] 27 mmol/L Normal 22-32 [facility] MAIN Comment on above: Performed By: #### Ed FR, BMP #### [place] [id number] Creatinine [Mass/Vol] 1.53 mg/dL High 0.50-1.20 [facility] MAIN Comment on above: Result Comment: Test ing performed on Cinegif analyzer using enzymatic creatinine methodology. Performed By: #### Ed FR, BMP #### [address] [address] Electrolyte Balance 9.0 mEq/L Normal 4.0-15.0 [facility] MAIN Comment on above: Performed By: #### G FR, BMP #### [address] [address] Globulin 2.8 G/dL Normal 2.5-4.2 [facility] MAIN Comment on above: Performed By: #### G FR, BMP #### [address] [address] Glucose [Mass/Vol] 102 mg/dL Normal 82-115 [facility] MAIN Comment on above: Performed By: #### G FR, BMP #### [address] [address] Potassium [Moles/Vol] 3.9 mmol/L Normal 3.5-5.0 [facility] MAIN Comment on above: Performed By: #### G FR, BMP #### [address] [address] Sodium [Moles/Vol] 137 mmol/L Normal 136-145 [facility] MAIN Comment on above: Performed By: #### G FR, BMP #### [address] [address] Total Protein 6.2 G/dL Normal 5.7-8.2 [facility] MAIN Comment on above: Performed By: #### G FR, BMP #### [address] [address] Urea nitrogen [Mass/Vol] 30.0 mg/dL High 8.0-22.0 [facility] MAIN Comment on above: Performed By: #### G FR, BMP #### [address] [address] MGon 08-30-2024 Magnesium [Mass/Vol] 2.4 mg/dL Normal 1.6-2.4 [facility] MAIN Comment on above: Performed By: #### C MP, MG, GFR #### [address] [address] Magnesium [Mass/Vol] 2.8 mg/dL High 1.6-2.4 [facility] MAIN Comment on above: Performed By: #### A COLLIN, MG, BMP, ADIFF, GFR, CBC, HFP #### [address] [address] [place] MYOCARDIAL SPECT STRESS/R ESTon 08-30-2024 NM [...] Date: 08/30/2024 3:24:08 PM Ordering Provider:Harry Bailon [facility] MAIN .GFRon 08-29-2024 Estimated Glomerular Filtration Rate 43 ml/min/1.73sqm [facility] MAIN Comment on above: Result Comment: [...] MG, BMP, ADIFF, GFR, CBC, HFP #### [address] [address] [facility] 08-29-2024 BUN/Creatinine Ratio 23.2 ratio High 10.0-22.0 [facility] MAIN Comment on above: Performed By: #### A COLLIN, MG, BMP, ADIFF, GFR, CBC, HFP #### [address] [address] Calcium [Mass/Vol] 8.4 mg/dL Low 8.7-10.4 [facility] MAIN Comment on above: Performed By: #### A COLLIN, MG, BMP, ADIFF, GFR, CBC, HFP #### [address] [address] Chloride [Moles/Vol] 103 mmol/L Normal 98-110 [facility] MAIN Comment on above: Performed By: #### A COLLIN, MG, BMP, ADIFF, GFR, CBC, HFP #### [address] [address] CO2 [Moles/Vol] 28 mmol/L Normal 22-32 [facility] MAIN Comment on above: Performed By: #### A COLLIN, MG, BMP, ADIFF, GFR, CBC, HFP #### [address] [address] Creatinine [Mass/Vol] 1.25 mg/dL High 0.50-1.20 [facility] MAIN Comment on above: Result Comment: Test ing performed on Cinegif analyzer using enzymatic creatinine methodology. Performed By: #### A COLLIN, MG, BMP, ADIFF, GFR, CBC, HFP #### [address] [address] Electrolyte Balance 10.0 mEq/L Normal 4.0-15.0 [facility] MAIN Comment on above: Performed By: #### A COLLIN, MG, BMP, ADIFF, GFR, CBC, HFP #### [address] [address] Glucose [Mass/Vol] 81 mg/dL Low 82-115 [facility] MAIN Comment on above: Performed By: #### A COLLIN, MG, BMP, ADIFF, GFR, CBC, HFP #### [address] [address] Potassium [Moles/Vol] 3.9 mmol/L Normal 3.5-5.0 [facility] MAIN Comment on above: Performed By: #### A COLLIN, MG, BMP, ADIFF, GFR, CBC, HFP #### [address] [address] Sodium [Moles/Vol] 141 mmol/L Normal 136-145 [facility] MAIN Comment on above: Performed By: #### A COLLIN, MG, BMP, ADIFF, GFR, CBC, HFP #### [address] [place] [address] Urea nitrogen [Mass/Vol] 29.0 mg/dL High 8.0-22.0 [facility] MAIN Comment on above: Performed By: #### A COLLIN, MG, BMP, ADIFF, GFR, CBC, HFP #### [facility] [address] [place] [address] MGon 08-29-2024 Magnesium [Mass/Vol] 2.3 mg/dL Normal 1.6-2.4 [facility] MAIN Comment on above: Performed By: #### A COLLIN, MG, BMP, ADIFF, GFR, CBC, HFP #### [address] [address] XR CHEST 1 VIEWon 08-29-2024 XR CHEST [...] 08/29/2024 5:31:45 PM Ordering Provider: ANASTASIYA JEFF [facility] MAIN .GFRon 08-28-2024 Estimated Glomerular Filtration Rate 49 ml/min/1.73sqm [facility] MAIN Comment on above: Result Comment: [...] Performed By: #### Ed , BMP #### [address] [address] [facility] 08-28-2024 BUN/Creatinine Ratio 25.7 ratio High 10.0-22.0 [facility] MAIN Comment on above: Performed By: #### G , BMP #### [address] [address] Calcium [Mass/Vol] 8.8 mg/dL Normal 8.7-10.4 [facility] MAIN Comment on above: Performed By: #### Ed , BMP #### [address] [address] Chloride [Moles/Vol] 105 mmol/L Normal 98-110 [facility] MAIN Comment on above: Performed By: #### Ed , BMP #### [address] [address] CO2 [Moles/Vol] 28 mmol/L Normal 22-32 [facility] MAIN Comment on above: Performed By: #### Ed , BMP #### [address] [address] Creatinine [Mass/Vol] 1.13 mg/dL Normal 0.50-1.20 [facility] MAIN Comment on above: Result Comment: Test ing performed on Cinegif analyzer using enzymatic creatinine methodology. Performed By: #### G FR, BMP #### [address] [address] Electrolyte Balance 8.0 mEq/L Normal 4.0-15.0 [facility] MAIN Comment on above: Performed By: #### G FR, BMP #### [address] [address] Glucose [Mass/Vol] 86 mg/dL Normal 82-115 [facility] MAIN Comment on above: Performed By: #### G FR, BMP #### [address] [address] Potassium [Moles/Vol] 4.1 mmol/L Normal 3.5-5.0 [facility] MAIN Comment on above: Performed By: #### Ed WAGNER, BMP #### [address] [address] Sodium [Moles/Vol] 141 mmol/L Normal 136-145 [facility] MAIN Comment on above: Performed By: #### Ed WAGNER, BMP #### [address] [address] Urea nitrogen [Mass/Vol] 29.0 mg/dL High 8.0-22.0 [facility] MAIN Comment on above: Performed By: #### Ed WAGNER, BMP #### [address] [address] MGon 08-28-2024 Magnesium [Mass/Vol] 2.3 mg/dL Normal 1.6-2.4 [facility] MAIN Comment on above: Performed By: #### Ed , BMP #### [address] [address] .GFRon 08-27-2024 Estimated Glomerular Filtration Rate 49 ml/min/1.73sqm Normal [facility] MAIN Comment on above: Result Comment: Stages [...] Performed By: #### Ed WAGNER, BMP #### [address] [address] CMPon 08-27-2024 Albumin Level 3.7 G/dL Normal 3.2-4.8 [facility] MAIN Comment on above: Performed By: #### Ed FR, BMP #### [place] [address] Albumin/Globulin [Mass ratio] 1.4 {ratio} Normal 0.9-1.6 [facility] MAIN Comment on above: Performed By: #### G FR, BMP #### [place] [address] ALP [Catalytic activity/Vol] 80 U/L Normal 38-126 [facility] MAIN Comment on above: Performed By: #### G , BMP #### [place] [id number] ALT [Catalytic activity/Vol] 8 U/L Low 10-49 [facility] MAIN Comment on above: Performed By: #### Ed WAGNER, BMP #### [place] [address] AST [Catalytic activity/Vol] 13 U/L Normal 8-34 [facility] MAIN Comment on above: Performed By: #### Ed WAGNER, BMP #### [place] [address] Bili Total 0.20 mg/dL Normal 0.20-1.20 [facility] MAIN Comment on above: Result Comment: Use of this assay is not recommended for patients undergoing treatment with eltrombopag due to the potential for falsely elevated results. Performed By: #### Ed WAGNER, BMP #### [place] [address] BUN/Creatinine Ratio 26.8 ratio High 10.0-22.0 [facility] MAIN Comment on above: Performed By: #### Ed FR, BMP #### [place] [id number] Calcium [Mass/Vol] 9.2 mg/dL Normal 8.7-10.4 [facility] MAIN Comment on above: Performed By: #### Ed FR, BMP #### [place] [address] Chloride [Moles/Vol] 105 mmol/L Normal 98-110 [facility] MAIN Comment on above: Performed By: #### Ed WAGNER, BMP #### [place] [address] CO2 [Moles/Vol] 28 mmol/L Normal 22-32 [facility] MAIN Comment on above: Performed By: #### G FR, BMP #### [address] [address] Creatinine [Mass/Vol] 1.12 mg/dL Normal 0.50-1.20 [facility] MAIN Comment on above: Result Comment: Test ing performed on Cinegif analyzer using enzymatic creatinine methodology. Performed By: #### G FR, BMP #### [address] [address] Electrolyte Balance 9.0 mEq/L Normal 4.0-15.0 [facility] MAIN Comment on above: Performed By: #### G FR, BMP #### [address] [address] Globulin 2.7 G/dL Normal 2.5-4.2 [facility] MAIN Comment on above: Performed By: #### G FR, BMP #### [address] [address] Glucose [Mass/Vol] 95 mg/dL Normal 82-115 [facility] MAIN Comment on above: Performed By: #### G FR, BMP #### [address] [address] Potassium [Moles/Vol] 4.0 mmol/L Normal 3.5-5.0 [facility] MAIN Comment on above: Performed By: #### G FR, BMP #### [address] [address] Sodium [Moles/Vol] 142 mmol/L Normal 136-145 [facility] MAIN Comment on above: Performed By: #### G FR, BMP #### [address] [address] Total Protein 6.4 G/dL Normal 5.7-8.2 [facility] MAIN Comment on above: Performed By: #### G FR, BMP #### [address] [address] Urea nitrogen [Mass/Vol] 30.0 mg/dL High 8.0-22.0 [facility] MAIN Comment on above: Performed By: #### G FR, BMP #### [place] [id number] [place] [address] MGon 08-27-2024 Magnesium [Mass/Vol] 2.4 mg/dL Normal 1.6-2.4 [facility] MAIN Comment on above: Performed By: #### G FR, BMP #### [address] [address] PROon 08-27-2024 INR Coag (PPP) [Relative time] 1.2 {INR} Normal [facility] MAIN Comment on above: Result Comment: The [employer] (CHEST, 1992, [id number]) recommended therapeutic range for oral anticoagulant therapy is: LOW RISK: Prophylaxis of venous thrombosis INR: 2.0-3.0 Treatment of pulmonary embolism 2.0-3.0 Prevention of systemic embolism 2.0-3.0 HIGH RISK: Mechanical prosthetic valves 2.5-3.5 Performed By: #### G , BMP #### [place] [id number] PT Coag (PPP) [Time] 13.2 s Normal 9.0-14.4 [facility] MAIN Comment on above: Result Comment: Effe ctive 10/24/07, Protime results may be affected by some antibiotics (i.e. Ciprofloxacin, Azithromycin, Bactrim) which may potentiate the action of oral anticoagulants, with further increases in Protime/INR. Performed By: #### G , BMP #### [address] [address] .GFRon 08-21-2024 Estimated Glomerular Filtration Rate 46 ml/min/1.73sqm Normal [facility] Comment on above: Result Comment: Stages [...] GFR, BMP, CBC, ANEU, TROPHS, ADIFF #### [address] [address] BMPon 08-21-2024 BUN/Creatinine Ratio 19 ratio Normal 7-27 [facility] Comment on above: Performed By: #### M DW, MG, GFR, BMP, CBC, ANEU, TROPHS, ADIFF #### [address] [address] Calcium [Mass/Vol] 9.1 mg/dL Normal 8.4-10.2 [facility] Comment on above: Performed By: #### M DW, MG, GFR, BMP, CBC, ANEU, TROPHS, ADIFF #### [address] [address] Chloride [Moles/Vol] 104 mmol/L Normal 98-107 [facility] Comment on above: Performed By: #### M DW, MG, GFR, BMP, CBC, ANEU, TROPHS, ADIFF #### [address] [address] CO2 [Moles/Vol] 27 mmol/L Normal 23-31 [facility] Comment on above: Performed By: #### M DW, MG, GFR, BMP, CBC, ANEU, TROPHS, ADIFF #### [address] [address] Creatinine [Mass/Vol] 1.18 mg/dL High 0.51-0.95 [facility] Comment on above: Performed By: #### M DW, MG, GFR, BMP, CBC, ANEU, TROPHS, ADIFF #### [address] [address] Electrolyte Balance 8.0 mEq/L Normal 4.0-15.0 [facility] Comment on above: Performed By: #### M DW, MG, GFR, BMP, CBC, ANEU, TROPHS, ADIFF #### [address] [address] Glucose [Mass/Vol] 95 mg/dL Normal 83-110 [facility] Comment on above: Performed By: #### M DW, MG, GFR, BMP, CBC, ANEU, TROPHS, ADIFF #### [address] [address] Potassium [Moles/Vol] 5.3 mmol/L High 3.5-5.1 [facility] Comment on above: Performed By: #### M DW, MG, GFR, BMP, CBC, ANEU, TROPHS, ADIFF #### [address] [address] Sodium [Moles/Vol] 139 mmol/L Normal 136-145 [facility] Comment on above: Performed By: #### M DW, MG, GFR, BMP, CBC, ANEU, TROPHS, ADIFF #### [address] [address] Urea nitrogen [Mass/Vol] 23 mg/dL High 7-18 [facility] Comment on above: Performed By: #### M DW, MG, GFR, BMP, CBC, ANEU, TROPHS, ADIFF #### [address] [address] LABORATORYOrdered By: SYSTEM SYSTEM on 08-21-2024 Calcium [...] Estimated Glomerular Filtration Rate 41 ml/min/1.73sqm Normal [facility] MAIN Comment on above: Result Comment: Stages [...] MG, BMP, ADIFF, GFR, CBC, HFP #### [place] [address] BMPon 08-09-2024 BUN/Creatinine Ratio 22.9 ratio High 10.0-22.0 [facility] MAIN Comment on above: Order Comment: Unexp ected results. Possible specimen contamination. Called Ashley Puckett on [facility] for recollect. 08/09/2024 05:15:01 EDT Performed By: #### A COLLIN, MG, BMP, ADIFF, GFR, CBC, HFP #### [address] [address] Calcium [Mass/Vol] 7.4 mg/dL Low 8.7-10.4 [facility] MAIN Comment on above: Order Comment: Unexp ected results. Possible specimen contamination. Called Ashley Puckett on [facility] for recollect. 08/09/2024 05:15:01 EDT Performed By: #### A COLLIN, MG, BMP, ADIFF, GFR, CBC, HFP #### [address] [address] Chloride [Moles/Vol] 105 mmol/L Normal 98-110 [facility] MAIN Comment on above: Order Comment: Unexp ected results. Possible specimen contamination. Called Ashley Puckett on [facility] for recollect. 08/09/2024 05:15:01 EDT Performed By: #### A COLLIN, MG, BMP, ADIFF, GFR, CBC, HFP #### [address] [address] CO2 [Moles/Vol] 23 mmol/L Normal 22-32 [facility] MAIN Comment on above: Order Comment: Unexp ected results. Possible specimen contamination. Called Ashley Puckett on [facility] for recollect. 08/09/2024 05:15:01 EDT Performed By: #### A COLLIN, MG, BMP, ADIFF, GFR, CBC, HFP #### [address] [address] Creatinine [Mass/Vol] 1.31 mg/dL High 0.50-1.20 [facility] MAIN Comment on above: Order Comment: Unexp ected results. Possible specimen contamination. Called Ashley Puckett on [facility] for recollect. 08/09/2024 05:15:01 EDT Result Comment: Test ing performed on Cinegif analyzer using enzymatic creatinine methodology. Performed By: #### A COLLIN, MG, BMP, ADIFF, GFR, CBC, HFP #### [address] [address] Electrolyte Balance 8.0 mEq/L Normal 4.0-15.0 [facility] MAIN Comment on above: Order Comment: Unexp ected results. Possible specimen contamination. Called feliz Diamondt on [facility] for recollect. 08/09/2024 05:15:01 EDT Performed By: #### A COLLIN, MG, BMP, ADIFF, GFR, CBC, HFP #### [address] [address] Glucose [Mass/Vol] 99 mg/dL Normal 82-115 [facility] MAIN Comment on above: Order Comment: Unexp ected results. Possible specimen contamination. Called Ashley Puckett on [facility] for recollect. 08/09/2024 05:15:01 EDT Performed By: #### A COLLIN, MG, BMP, ADIFF, GFR, CBC, HFP #### [address] [address] Potassium [Moles/Vol] 5.5 mmol/L High 3.5-5.0 [facility] MAIN Comment on above: Order Comment: Unexp ected results. Possible specimen contamination. Called Ashley Puckett on [facility] for recollect. 08/09/2024 05:15:01 EDT Performed By: #### A COLLIN, MG, BMP, ADIFF, GFR, CBC, HFP #### [address] [address] Sodium [Moles/Vol] 136 mmol/L Normal 136-145 [facility] MAIN Comment on above: Order Comment: Unexp ected results. Possible specimen contamination. Called Ashley Puckett on [facility] for recollect. 08/09/2024 05:15:01 EDT Performed By: #### A COLLIN, MG, BMP, ADIFF, GFR, CBC, HFP #### [address] [address] Urea nitrogen [Mass/Vol] 30.0 mg/dL High 8.0-22.0 [facility] MAIN Comment on above: Order Comment: Unexp ected results. Possible specimen contamination. Called Ashley Puckett on [facility] for recollect. 08/09/2024 05:15:01 EDT Performed By: #### A COLLIN, MG, BMP, ADIFF, GFR, CBC, HFP #### [address] [address] LABORATORYOrdered By: SYSTEM SYSTEM on 08-09-2024 Calcium [...] above: Interpretive Data: T esting performed on Cinegif analyzer using enzymatic creatinine methodology. Electrolyte Balance [...] Basophil, Absolute 0.1 10 3/mcL Normal 0.0-0.3 [facility] MAIN Comment on above: Performed By: #### A COLLIN, MG, BMP, ADIFF, GFR, CBC, HFP #### [address] [address] Basophils/100 WBC (Bld) 1.5 % Normal 0.0-2.5 [facility] MAIN Comment on above: Performed By: #### A COLLIN, MG, BMP, ADIFF, GFR, CBC, HFP #### [address] [address] Eosinophil, Absolute 0.2 10 3/mcL Normal 0.0-0.7 [facility] MAIN Comment on above: Performed By: #### A COLLIN, MG, BMP, ADIFF, GFR, CBC, HFP #### [address] [address] Eosinophils/100 WBC (Bld) 2.8 % Normal 0.0-6.0 [facility] MAIN Comment on above: Performed By: #### A COLLIN, MG, BMP, ADIFF, GFR, CBC, HFP #### [address] [address] Lymphocyte, Absolute 0.7 10 3/mcL Low 0.9-4.3 [facility] MAIN Comment on above: Performed By: #### A COLLIN, MG, BMP, ADIFF, GFR, CBC, HFP #### [address] [address] Lymphocytes/100 WBC (Bld) 9.3 % Low 20.0-40.0 [facility] Comment on above: Performed By: #### A COLLIN, MG, BMP, ADIFF, GFR, CBC, HFP #### [address] [address] Monocyte, Absolute 0.5 10 3/mcL Normal 0.1-1.4 [facility] MAIN Comment on above: Performed By: #### A COLLIN, MG, BMP, ADIFF, GFR, CBC, HFP #### [address] [address] Monocytes/100 WBC (Bld) 7.4 % Normal 2.0-13.0 [facility]IN Comment on above: Performed By: #### A COLLIN, MG, BMP, ADIFF, GFR, CBC, HFP #### [address] [address] Neutrophils/100 WBC (Bld) 79.0 % High 50.0-75.0 [facility] Comment on above: Performed By: #### A COLLIN, MG, BMP, ADIFF, GFR, CBC, HFP #### [address] [address] .GFRon 08-08-2024 Estimated Glomerular Filtration Rate 52 ml/min/1.73sqm Normal [facility] Comment on above: Result Comment: Stages [...] MG, BMP, ADIFF, GFR, CBC, HFP #### [address] [address] .NEUABSon 08-08-2024 Neutrophil, Absolute 5.8 10 3/mcL Normal 2.3-8.1 [facility] MAIN Comment on above: Performed By: #### A COLLIN, MG, BMP, ADIFF, GFR, CBC, HFP #### [place] [id number] ABO/Rh (Gel)on 08-08-2024 ABO/Rh Interp Positive Invalid Interpretation Code [facility] Comment on above: Performed By: #### A COLLIN, MG, BMP, ADIFF, GFR, CBC, HFP #### [address] [address] ABS (Gel)on 08-08-2024 ABSC Interp (Gel) Negative Normal [facility] Comment on above: Performed By: #### A COLLIN, MG, BMP, ADIFF, GFR, CBC, HFP #### [address] [address] APTTon 08-08-2024 aPTT Coag (Bld) [Time] 37.1 s High 25.0-35.0 [facility] Comment on above: Result Comment: For Heparin anticoagulation therapy, the recommended therapeutic range is: 54-77 seconds (APTT Correlation with Anti-Xa therapeutic range of 0.3-0.7 units/ml). PLEASE REFERENCE THE PHARMACY PROTOCOL FOR DOSING. Performed By: #### A COLLIN, MG, BMP, ADIFF, GFR, CBC, HFP #### [place] [id number] BMPon 08-08-2024 BUN/Creatinine Ratio 15.0 ratio Normal 10.0-22.0 [facility] MAIN Comment on above: Performed By: #### A COLLIN, MG, BMP, ADIFF, GFR, CBC, HFP #### [place] [address] Calcium [Mass/Vol] 8.3 mg/dL Low 8.7-10.4 [facility] MAIN Comment on above: Performed By: #### A COLLIN, MG, BMP, ADIFF, GFR, CBC, HFP #### [place] [address] Chloride [Moles/Vol] 106 mmol/L Normal 98-110 [facility] MA[facility] Comment on above: Performed By: #### A COLLIN, MG, BMP, ADIFF, GFR, CBC, HFP #### [place] [address] CO2 [Moles/Vol] 24 mmol/L Normal 22-32 [facility] Comment on above: Performed By: #### A COLLIN, MG, BMP, ADIFF, GFR, CBC, HFP #### [place] [id number] Creatinine [Mass/Vol] 1.07 mg/dL Normal 0.50-1.20 [facility] MAIN Comment on above: Result Comment: Test ing performed on Cinegif analyzer using enzymatic creatinine methodology. Performed By: #### A COLLIN, MG, BMP, ADIFF, GFR, CBC, HFP #### [place] [id number] Electrolyte Balance 7.0 mEq/L Normal 4.0-15.0 [facility] MAIN Comment on above: Performed By: #### A COLLIN, MG, BMP, ADIFF, GFR, CBC, HFP #### [place] [id number] Glucose [Mass/Vol] 87 mg/dL Normal 82-115 [facility] MAIN Comment on above: Performed By: #### A COLLIN, MG, BMP, ADIFF, GFR, CBC, HFP #### [place] [id number] Potassium [Moles/Vol] 4.4 mmol/L Normal 3.5-5.0 [facility] MAIN Comment on above: Performed By: #### A COLLIN, MG, BMP, ADIFF, GFR, CBC, HFP #### [place] [id number] Sodium [Moles/Vol] 137 mmol/L Normal 136-145 [facility] MAIN Comment on above: Performed By: #### A COLLIN, MG, BMP, ADIFF, GFR, CBC, HFP #### [place] [address] Urea nitrogen [Mass/Vol] 16.0 mg/dL Normal 8.0-22.0 [facility] Comment on above: Performed By: #### A COLLIN, MG, BMP, ADIFF, GFR, CBC, HFP #### [address] [address] CBCon 08-08-2024 Erythrocyte distribution width (RBC) [Ratio] 14.2 % Normal 11.5-15.5 [facility] Comment on above: Performed By: #### A COLLIN, MG, BMP, ADIFF, GFR, CBC, HFP #### [place] [id number] Hematocrit (Bld) [Volume fraction] 36.9 % Normal 34.0-46.0 [facility] Comment on above: Performed By: #### A COLLIN, MG, BMP, ADIFF, GFR, CBC, HFP #### [place] [id number] Hgb 12.3 G/dL Normal 12.0-16.0 [facility] Comment on above: Performed By: #### A COLLIN, MG, BMP, ADIFF, GFR, CBC, HFP #### [place] [address] MCH (RBC) [Entitic mass] 29.9 pg Normal 27.0-33.0 [facility] Comment on above: Performed By: #### A COLLIN, MG, BMP, ADIFF, GFR, CBC, HFP #### [place] [address] MCHC 33.3 G/dL Normal 32.0-36.0 [facility] Comment on above: Performed By: #### A COLLIN, MG, BMP, ADIFF, GFR, CBC, HFP #### [place] [address] MCV (RBC) [Entitic vol] 89.8 fL Normal 80.0-99.0 [facility] Comment on above: Performed By: #### A COLLIN, MG, BMP, ADIFF, GFR, CBC, HFP #### [place] [address] Platelet 309 10 3/mcL Normal 150-450 [facility] MAIN Comment on above: Performed By: #### A COLLIN, MG, BMP, ADIFF, GFR, CBC, HFP #### [place] [address] Platelet mean volume (Bld) [Entitic vol] 7.8 fL Normal 6.6-10.5 [facility] MA[facility] Comment on above: Performed By: #### A COLLIN, MG, BMP, ADIFF, GFR, CBC, HFP #### [place] [address] RBC 4.11 10 6/mcL Normal 4.10-5.30 [facility] Comment on above: Performed By: #### A COLLIN, MG, BMP, ADIFF, GFR, CBC, HFP #### [place] [address] WBC 7.4 10 3/mcL Normal 4.5-10.8 [facility] Comment on above: Performed By: #### A COLLIN, MG, BMP, ADIFF, GFR, CBC, HFP #### [facility] [address] [place] [address] FIBon 08-08-2024 Fibrinogen 583 mg/dL High 250-560 [facility] MA[facility] Comment on above: Performed By: #### A COLLIN, MG, BMP, ADIFF, GFR, CBC, HFP #### [facility] [address] [place] [address] LABORATORYOrdered By: Óscar Guerrero on 08-08-2024 ABO [...] above: Interpretive Data: T esting performed on Cinegif analyzer using enzymatic creatinine methodology. Electrolyte Balance [...] Comment on above: Interpretive Data: Jatinder samano [employer] (CHEST, 1991, 102:[id number]) [...] Coag (PPP) [Relative time] 1.2 {INR} Normal [facility] MA[facility] Comment on above: Result Comment: [employer] (CHEST, 1991, 102:312S-25S) recommended therapeutic range for oral anticoagulant therapy is: LOW RISK: Prophylaxis of venous thrombosis INR: 2.0-3.0 Treatment of pulmonary embolism 2.0-3.0 Prevention of systemic embolism 2.0-3.0 HIGH RISK: Mechanical prosthetic valves 2.5-3.5 Performed By: #### A COLLIN, MG, BMP, ADIFF, GFR, CBC, HFP #### [address] [address] PT Coag (PPP) [Time] 13.7 s Normal 9.0-14.4 [facility] MAIN Comment on above: Result Comment: Effe ctive 10/24/07, Protime results may be affected by some antibiotics (i.e. Ciprofloxacin, Azithromycin, Bactrim) which may potentiate the action of oral anticoagulants, with further increases in Protime/INR. Performed By: #### A COLLIN, MG, BMP, ADIFF, GFR, CBC, HFP #### [address] [address] .Auto Diffon 07-27-2024 Basophil, Absolute 0.1 10 3/mcL Normal 0.0-0.3 [facility] MAIN Comment on above: Performed By: #### A COLLIN, MG, BMP, ADIFF, GFR, CBC, HFP #### [address] [address] Basophils/100 WBC (Bld) 1.2 % Normal 0.0-2.5 [facility] MAIN Comment on above: Performed By: #### A COLLIN, MG, BMP, ADIFF, GFR, CBC, HFP #### [address] [address] Eosinophil, Absolute 0.2 10 3/mcL Normal 0.0-0.7 [facility] MAIN Comment on above: Performed By: #### A COLLIN, MG, BMP, ADIFF, GFR, CBC, HFP #### [address] [address] Eosinophils/100 WBC (Bld) 2.3 % Normal 0.0-6.0 [facility] Comment on above: Performed By: #### A COLLIN, MG, BMP, ADIFF, GFR, CBC, HFP #### [address] [address] Lymphocyte, Absolute 0.9 10 3/mcL Normal 0.9-4.3 [facility] MAIN Comment on above: Performed By: #### A COLLIN, MG, BMP, ADIFF, GFR, CBC, HFP #### [address] [address] Lymphocytes/100 WBC (Bld) 10.3 % Low 20.0-40.0 [facility] Comment on above: Performed By: #### A COLILN, MG, BMP, ADIFF, GFR, CBC, HFP #### [address] [address] Monocyte, Absolute 0.8 10 3/mcL Normal 0.1-1.4 [facility] MAIN Comment on above: Performed By: #### A COLLIN, MG, BMP, ADIFF, GFR, CBC, HFP #### [address] [address] Monocytes/100 WBC (Bld) 8.6 % Normal 2.0-13.0 [facility] Comment on above: Performed By: #### A COLLIN, MG, BMP, ADIFF, GFR, CBC, HFP #### [address] [address] Neutrophils/100 WBC (Bld) 77.6 % High 50.0-75.0 [facility] Comment on above: Performed By: #### A COLLIN, MG, BMP, ADIFF, GFR, CBC, HFP #### [address] [address] .GFRon 07-27-2024 Estimated Glomerular Filtration Rate 59 ml/min/1.73sqm Normal [facility] MA[facility] Comment on above: Result Comment: Stages [...] MG, BMP, ADIFF, GFR, CBC, HFP #### [address] [address] .NEUABSon 07-27-2024 Neutrophil, Absolute 7.0 10 3/mcL Normal 2.3-8.1 [facility] MAIN Comment on above: Performed By: #### A COLLIN, MG, BMP, ADIFF, GFR, CBC, HFP #### [address] [address] BMPon 07-27-2024 BUN/Creatinine Ratio 21.9 ratio Normal 10.0-22.0 [facility] MA[facility] Comment on above: Performed By: #### A COLLIN, MG, BMP, ADIFF, GFR, CBC, HFP #### [address] [address] Calcium [Mass/Vol] 9.0 mg/dL Normal 8.7-10.4 [facility] MAIN Comment on above: Performed By: #### A COLLIN, MG, BMP, ADIFF, GFR, CBC, HFP #### [address] [address] Chloride [Moles/Vol] 106 mmol/L Normal 98-110 [facility] MA[facility] Comment on above: Performed By: #### A COLLIN, MG, BMP, ADIFF, GFR, CBC, HFP #### [address] [address] CO2 [Moles/Vol] 29 mmol/L Normal 22-32 [facility] Comment on above: Performed By: #### A COLLIN, MG, BMP, ADIFF, GFR, CBC, HFP #### [place] [id number] Creatinine [Mass/Vol] 0.96 mg/dL Normal 0.50-1.20 [facility] MAIN Comment on above: Result Comment: Test ing performed on Cinegif analyzer using enzymatic creatinine methodology. Performed By: #### A COLLIN, MG, BMP, ADIFF, GFR, CBC, HFP #### [place] [id number] Electrolyte Balance 8.0 mEq/L Normal 4.0-15.0 [facility] MA[facility] Comment on above: Performed By: #### A COLLIN, MG, BMP, ADIFF, GFR, CBC, HFP #### [place] [address] Glucose [Mass/Vol] 97 mg/dL Normal 82-115 [facility] MAIN Comment on above: Performed By: #### A COLLIN, MG, BMP, ADIFF, GFR, CBC, HFP #### [place] [address] Potassium [Moles/Vol] 4.1 mmol/L Normal 3.5-5.0 [facility] MAIN Comment on above: Performed By: #### A COLLIN, MG, BMP, ADIFF, GFR, CBC, HFP #### [place] [id number] Sodium [Moles/Vol] 143 mmol/L Normal 136-145 [facility] MA[facility] Comment on above: Performed By: #### A COLLIN, MG, BMP, ADIFF, GFR, CBC, HFP #### [place] [address] Urea nitrogen [Mass/Vol] 21.0 mg/dL Normal 8.0-22.0 [facility] Comment on above: Performed By: #### A COLLIN, MG, BMP, ADIFF, GFR, CBC, HFP #### [place] [id number] CBCon 07-27-2024 Erythrocyte distribution width (RBC) [Ratio] 14.7 % Normal 11.5-15.5 [facility] MA[facility] Comment on above: Performed By: #### A COLLIN, MG, BMP, ADIFF, GFR, CBC, HFP #### [place] [address] Hematocrit (Bld) [Volume fraction] 35.6 % Normal 34.0-46.0 [facility] Comment on above: Performed By: #### A COLLIN, MG, BMP, ADIFF, GFR, CBC, HFP #### [place] [address] Hgb 11.9 G/dL Low 12.0-16.0 [facility] MAIN Comment on above: Performed By: #### A COLLIN, MG, BMP, ADIFF, GFR, CBC, HFP #### [place] [address] MCH (RBC) [Entitic mass] 30.1 pg Normal 27.0-33.0 [facility] MA[facility] Comment on above: Performed By: #### A COLLIN, MG, BMP, ADIFF, GFR, CBC, HFP #### [place] [address] MCHC 33.5 G/dL Normal 32.0-36.0 [facility] MA[facility] Comment on above: Performed By: #### A COLLIN, MG, BMP, ADIFF, GFR, CBC, HFP #### [place] [address] MCV (RBC) [Entitic vol] 89.9 fL Normal 80.0-99.0 [facility] MA[facility] Comment on above: Performed By: #### A COLLIN, MG, BMP, ADIFF, GFR, CBC, HFP #### [place] [address] Platelet 322 10 3/mcL Normal 150-450 [facility] MA[facility] Comment on above: Performed By: #### A COLLIN, MG, BMP, ADIFF, GFR, CBC, HFP #### [place] [address] Platelet mean volume (Bld) [Entitic vol] 7.8 fL Normal 6.6-10.5 [facility] MAIN Comment on above: Performed By: #### A COLLIN, MG, BMP, ADIFF, GFR, CBC, HFP #### [place] [address] RBC 3.96 10 6/mcL Low 4.10-5.30 [facility] Comment on above: Performed By: #### A COLLIN, MG, BMP, ADIFF, GFR, CBC, HFP #### [place] [id number] WBC 9.0 10 3/mcL Normal 4.5-10.8 [facility] MA[facility] Comment on above: Performed By: #### A COLLIN, MG, BMP, ADIFF, GFR, CBC, HFP #### [place] [id number] [place] [address] LABORATORYOrdered By: SYSTEM SYSTEM on 07-27-2024 Basophils [...] above: Interpretive Data: T esting performed on Cinegif analyzer using enzymatic creatinine methodology. Electrolyte Balance [...] Basophil, Absolute 0.1 10 3/mcL Normal 0.0-0.2 [facility] Comment on above: Performed By: #### M DW, MG, GFR, BMP, CBC, ANEU, TROPHS, ADIFF #### [address] [address] Basophils/100 WBC (Bld) 1.1 % Normal 0.0-2.5 [facility] Comment on above: Performed By: #### M DW, MG, GFR, BMP, CBC, ANEU, TROPHS, ADIFF #### [address] [address] Eosinophil, Absolute 0.3 10 3/mcL Normal 0.0-0.7 [facility] Comment on above: Performed By: #### M DW, MG, GFR, BMP, CBC, ANEU, TROPHS, ADIFF #### [address] [address] Eosinophils/100 WBC (Bld) 2.0 % Normal 0.0-7.0 [facility] Comment on above: Performed By: #### M DW, MG, GFR, BMP, CBC, ANEU, TROPHS, ADIFF #### [address] [address] Lymphocyte, Absolute 1.1 10 3/mcL Normal 0.9-4.3 [facility] Comment on above: Performed By: #### M DW, MG, GFR, BMP, CBC, ANEU, TROPHS, ADIFF #### [address] [address] Lymphocytes/100 WBC (Bld) 8.8 % Low 20.0-40.0 [facility] Comment on above: Performed By: #### M DW, MG, GFR, BMP, CBC, ANEU, TROPHS, ADIFF #### [address] [address] Monocyte, Absolute 0.8 10 3/mcL Normal 0.1-1.4 [facility] Comment on above: Performed By: #### M DW, MG, GFR, BMP, CBC, ANEU, TROPHS, ADIFF #### [place] [address] [place], [place] [address] Monocytes/100 WBC (Bld) 6.7 % Normal 2.0-13.0 [facility] Comment on above: Performed By: #### M DW, MG, GFR, BMP, CBC, ANEU, TROPHS, ADIFF #### [place] [address] [place], [place] [address] Neutrophils/100 WBC (Bld) 81.4 % High 50.0-75.0 [facility] Comment on above: Performed By: #### M DW, MG, GFR, BMP, CBC, ANEU, TROPHS, ADIFF #### [address] [address] .GFRon 07-05-2024 Estimated Glomerular Filtration Rate 53 ml/min/1.73sqm Normal [facility] Comment on above: Result Comment: Stages [...] GFR, BMP, CBC, ANEU, TROPHS, ADIFF #### [place] [address] [place], [place] [address] .MDWon 07-05-2024 Monocyte Distribution Width 16.20 Normal 0.00-20.00 [facility] Comment on above: Result Comment: For ED adult patients suspected of sepsis, MDW<=20.0 does not rule out sepsis or risk of sepsis Performed By: #### M DW, MG, GFR, BMP, CBC, ANEU, TROPHS, ADIFF #### [address] [address] .NEUABSon 07-05-2024 Neutrophil, Absolute 10.2 10 3/mcL High 2.3-8.1 A [facility] Comment on above: Performed By: #### M DW, MG, GFR, BMP, CBC, ANEU, TROPHS, ADIFF #### [address] [address] BMPon 07-05-2024 BUN/Creatinine Ratio 23 ratio Normal 7-27 [facility] Comment on above: Performed By: #### M DW, MG, GFR, BMP, CBC, ANEU, TROPHS, ADIFF #### [address] [address] Calcium [Mass/Vol] 9.8 mg/dL Normal 8.4-10.2 [facility] Comment on above: Performed By: #### M DW, MG, GFR, BMP, CBC, ANEU, TROPHS, ADIFF #### [address] [address] Chloride [Moles/Vol] 101 mmol/L Normal 98-107 [facility] Comment on above: Performed By: #### M DW, MG, GFR, BMP, CBC, ANEU, TROPHS, ADIFF #### [address] [address] CO2 [Moles/Vol] 32 mmol/L High 23-31 [facility] Comment on above: Performed By: #### M DW, MG, GFR, BMP, CBC, ANEU, TROPHS, ADIFF #### [place] [id number] Creatinine [Mass/Vol] 1.06 mg/dL High 0.55-1.02 [facility] Comment on above: Result Comment: Test ing performed on Siemens Dimension EXL analyzer using a modified kinetic Josse technique. Performed By: #### M DW, MG, GFR, BMP, CBC, ANEU, TROPHS, ADIFF #### [address] [address] Electrolyte Balance 6.0 mEq/L Normal 4.0-15.0 [facility] Comment on above: Performed By: #### M DW, MG, GFR, BMP, CBC, ANEU, TROPHS, ADIFF #### [address] [address] Glucose [Mass/Vol] 101 mg/dL Normal 83-110 [facility] Comment on above: Performed By: #### M DW, MG, GFR, BMP, CBC, ANEU, TROPHS, ADIFF #### [address] [address] Potassium [Moles/Vol] 4.1 mmol/L Normal 3.5-5.1 [facility] Comment on above: Performed By: #### M DW, MG, GFR, BMP, CBC, ANEU, TROPHS, ADIFF #### [address] [address] Sodium [Moles/Vol] 139 mmol/L Normal 136-145 [facility] Comment on above: Performed By: #### M DW, MG, GFR, BMP, CBC, ANEU, TROPHS, ADIFF #### [address] [address] Urea nitrogen [Mass/Vol] 24 mg/dL High 7-18 [facility] Comment on above: Performed By: #### M DW, MG, GFR, BMP, CBC, ANEU, TROPHS, ADIFF #### [address] [address] CBCon 07-05-2024 Erythrocyte distribution width (RBC) [Ratio] 14.6 % Normal 11.5-15.5 [facility] Comment on above: Performed By: #### M DW, MG, GFR, BMP, CBC, ANEU, TROPHS, ADIFF #### [address] [address] Hematocrit (Bld) [Volume fraction] 38.7 % Normal 34.0-46.0 [facility] Comment on above: Performed By: #### M DW, MG, GFR, BMP, CBC, ANEU, TROPHS, ADIFF #### [place] [address] Hgb 13.0 G/dL Normal 12.0-16.0 [facility] Comment on above: Performed By: #### M DW, MG, GFR, BMP, CBC, ANEU, TROPHS, ADIFF #### [place] [address] MCH (RBC) [Entitic mass] 29.8 pg Normal 27.0-33.0 [facility] Comment on above: Performed By: #### M DW, MG, GFR, BMP, CBC, ANEU, TROPHS, ADIFF #### [place] [address] MCHC 33.7 G/dL Normal 32.0-36.0 [facility] Comment on above: Performed By: #### M DW, MG, GFR, BMP, CBC, ANEU, TROPHS, ADIFF #### [place] [address] MCV (RBC) [Entitic vol] 88.4 fL Normal 80.0-99.0 [facility] Comment on above: Performed By: #### M DW, MG, GFR, BMP, CBC, ANEU, TROPHS, ADIFF #### [place] [address] Platelet 378 10 3/mcL Normal 150-450 [facility] Comment on above: Performed By: #### M DW, MG, GFR, BMP, CBC, ANEU, TROPHS, ADIFF #### [place] [address] Platelet mean volume (Bld) [Entitic vol] 7.4 fL Normal 6.6-10.5 [facility] Comment on above: Performed By: #### M DW, MG, GFR, BMP, CBC, ANEU, TROPHS, ADIFF #### [place] [address] RBC 4.37 10 6/mcL Normal 4.10-5.30 [facility] Comment on above: Performed By: #### M DW, MG, GFR, BMP, CBC, ANEU, TROPHS, ADIFF #### [address] [address] WBC 12.5 10 3/mcL High 4.5-10.8 [facility] Comment on above: Performed By: #### M DW, MG, GFR, BMP, CBC, ANEU, TROPHS, ADIFF #### [address] [address] MGon 07-05-2024 Magnesium [Mass/Vol] 2.2 mg/dL Normal 1.8-2.4 [facility] Comment on above: Performed By: #### M DW, MG, GFR, BMP, CBC, ANEU, TROPHS, ADIFF #### [address] [address] TROPHSon 07-05-2024 High Sensitivity Troponin I 142 ng/L High [address] Comment on above: Result Comment: High Sensitive Troponin I Reference Ranges: Female: 0-51 ng/L Male: 0-76 ng/L Testing performed on [employer] using a homogeneous sandwich chemiluminescent immunoassay based on Aura XM technology. Performed By: #### M DW, MG, GFR, BMP, CBC, ANEU, TROPHS, ADIFF #### [address] [address] High Sensitivity Troponin I 146 ng/L High [address] [place] [address] Comment on above: Result Comment: High Sensitive Troponin I Reference Ranges: Female: 0-51 ng/L Male: 0-76 ng/L Testing performed on [employer] using a homogeneous sandwich chemiluminescent immunoassay based on Aura XM technology. Performed By: #### M DW, MG, GFR, BMP, CBC, ANEU, TROPHS, ADIFF #### [address] [address] XR CHEST 2 VIEWSon XR CHEST 2 [...] 07/05/2024 3:02:15 PM Ordering Provider: REMIGIO Mercado [facility] AMIODon 07-04-2024 Amiodarone Lvl 954 ng/mL Low 8418-6087 [facility] Comment on above: Order Comment: Abdiaziz in venipuncture to recollect 06/29/24 800am Performed By: #### A COLLIN, MG, BMP, ADIFF, GFR, CBC, HFP #### [facility] [address] [place] [address] Desethylami Lvl 795 ng/mL Normal [facility] Comment on above: Order Comment: Abdiaziz in venipuncture to recollect 06/29/24 800am Result Comment: Note : To convert from ng/ml to ug/ml, divide the result by 1000. Reference range (amiodarone): 1.00-2.50 ug/mL. This test was developed and its performance characteristics determined by [employer]. It has not been cleared or approved by the Food and Drug Administration. Performed At: [employer] [employer] [address] [place] [id number] Xavier Frost [facility] Ph:[phone] Performed By: #### A COLLIN, MG, BMP, ADIFF, GFR, CBC, HFP #### [address] [address] .Auto Diffon 07-01-2024 Basophil, Absolute 0.1 10 3/mcL Normal 0.0-0.3 [facility] Comment on above: Performed By: #### A COLLIN, MG, BMP, ADIFF, GFR, CBC, HFP #### [address] [address] Basophils/100 WBC (Bld) 1.0 % Normal 0.0-2.5 [facility] Comment on above: Performed By: #### A COLLIN, MG, BMP, ADIFF, GFR, CBC, HFP #### [address] [address] Eosinophil, Absolute 0.3 10 3/mcL Normal 0.0-0.7 [facility] MA[facility] Comment on above: Performed By: #### A COLLIN, MG, BMP, ADIFF, GFR, CBC, HFP #### [address] [address] Eosinophils/100 WBC (Bld) 3.1 % Normal 0.0-6.0 [facility] Comment on above: Performed By: #### A COLLIN, MG, BMP, ADIFF, GFR, CBC, HFP #### [address] [address] Lymphocyte, Absolute 0.9 10 3/mcL Normal 0.9-4.3 [facility] Comment on above: Performed By: #### A COLLIN, MG, BMP, ADIFF, GFR, CBC, HFP #### [address] [address] Lymphocytes/100 WBC (Bld) 9.1 % Low 20.0-40.0 [facility] Comment on above: Performed By: #### A COLLIN, MG, BMP, ADIFF, GFR, CBC, HFP #### [address] [address] Monocyte, Absolute 0.8 10 3/mcL Normal 0.1-1.4 [facility] Comment on above: Performed By: #### A COLLIN, MG, BMP, ADIFF, GFR, CBC, HFP #### [address] [address] Monocytes/100 WBC (Bld) 8.6 % Normal 2.0-13.0 [facility] Comment on above: Performed By: #### A COLLIN, MG, BMP, ADIFF, GFR, CBC, HFP #### [address] [address] Neutrophils/100 WBC (Bld) 78.2 % High 50.0-75.0 [facility] Comment on above: Performed By: #### A COLLIN, MG, BMP, ADIFF, GFR, CBC, HFP #### [address] [address] .GFRon 07-01-2024 Estimated Glomerular Filtration Rate 40 ml/min/1.73sqm Normal [facility] Comment on above: Result Comment: Stages [...] By: #### C MP, MG, GFR #### [address] [address] .NEUABSon 07-01-2024 Neutrophil, Absolute 7.7 10 3/mcL Normal 2.3-8.1 [facility] MAIN Comment on above: Performed By: #### C MP, MG, GFR #### [address] [address] BMPon 07-01-2024 BUN/Creatinine Ratio 25.4 ratio High 10.0-22.0 [facility] MAIN Comment on above: Performed By: #### C MP, MG, GFR #### [address] [address] Calcium [Mass/Vol] 9.4 mg/dL Normal 8.7-10.4 [facility] MAIN Comment on above: Performed By: #### C MP, MG, GFR #### [address] [address] Chloride [Moles/Vol] 101 mmol/L Normal 98-110 [facility] MAIN Comment on above: Performed By: #### C MP, MG, GFR #### [address] [address] CO2 [Moles/Vol] 31 mmol/L Normal 22-32 [facility] MAIN Comment on above: Performed By: #### C MP, MG, GFR #### [address] [address] Creatinine [Mass/Vol] 1.34 mg/dL High 0.50-1.20 [facility] MAIN Comment on above: Result Comment: Test ing performed on Cinegif analyzer using enzymatic creatinine methodology. Performed By: #### C MP, MG, GFR #### [place] [id number] Electrolyte Balance 4.0 mEq/L Normal 4.0-15.0 [facility] MAIN Comment on above: Performed By: #### C MP, MG, GFR #### [place] [id number] Glucose [Mass/Vol] 90 mg/dL Normal 82-115 [facility] MAIN Comment on above: Performed By: #### C MP, MG, GFR #### [place] [id number] Potassium [Moles/Vol] 4.1 mmol/L Normal 3.5-5.0 [facility] MAIN Comment on above: Performed By: #### C MP, MG, GFR #### [place] [id number] Sodium [Moles/Vol] 136 mmol/L Normal 136-145 [facility] MAIN Comment on above: Performed By: #### C MP, MG, GFR #### [address] [address] Urea nitrogen [Mass/Vol] 34.0 mg/dL High 8.0-22.0 [facility] MAIN Comment on above: Performed By: #### C MP, MG, GFR #### [address] [address] CBCon 03-23-2025 Erythrocyte distribution width (RBC) [Ratio] 14.8 % Normal 11.5-15.5 [facility] MAIN Comment on above: Performed By: #### A COLLIN, MG, BMP, ADIFF, GFR, CBC, HFP #### [place] [address] Hematocrit (Bld) [Volume fraction] 35.7 % Normal 34.0-46.0 [facility] MAIN Comment on above: Performed By: #### A COLLIN, MG, BMP, ADIFF, GFR, CBC, HFP #### [place] [address] Hgb 12.3 G/dL Normal 12.0-16.0 [facility] MAIN Comment on above: Performed By: #### A COLLIN, MG, BMP, ADIFF, GFR, CBC, HFP #### [place] [address] MCH (RBC) [Entitic mass] 30.8 pg Normal 27.0-33.0 [facility] MAIN Comment on above: Performed By: #### A COLLIN, MG, BMP, ADIFF, GFR, CBC, HFP #### [place] [address] MCHC 34.4 G/dL Normal 32.0-36.0 [facility] MAIN Comment on above: Performed By: #### A COLLIN, MG, BMP, ADIFF, GFR, CBC, HFP #### [place] [address] MCV (RBC) [Entitic vol] 89.5 fL Normal 80.0-99.0 [facility] MAIN Comment on above: Performed By: #### A COLLIN, MG, BMP, ADIFF, GFR, CBC, HFP #### [place] [address] Platelet 302 10 3/mcL Normal 150-450 [facility] MAIN Comment on above: Performed By: #### A COLLIN, MG, BMP, ADIFF, GFR, CBC, HFP #### [place] [address] Platelet mean volume (Bld) [Entitic vol] 7.4 fL Normal 6.6-10.5 [facility] MAIN Comment on above: Performed By: #### A COLLIN, MG, BMP, ADIFF, GFR, CBC, HFP #### [place] [id number] [place] [address] RBC 3.99 10 6/mcL Low 4.10-5.30 [facility] MAIN Comment on above: Performed By: #### A COLLIN, MG, BMP, ADIFF, GFR, CBC, HFP #### [address] [address] WBC 9.8 10 3/mcL Normal 4.5-10.8 [facility] MAIN Comment on above: Performed By: #### A COLLIN, MG, BMP, ADIFF, GFR, CBC, HFP #### [address] [address] LABORATORYOrdered By: SYSTEM SYSTEM on 07-01-2024 Basophils [...] above: Interpretive Data: T esting performed on Cinegif analyzer using enzymatic creatinine methodology. Electrolyte Balance [...] 07-01-2024 Magnesium [Mass/Vol] 2.4 mg/dL Normal 1.6-2.4 [facility] MAIN Comment on above: Performed By: #### C MP, MG, GFR #### [address] [address] .Auto Diffon 06-30-2024 Basophil, Absolute 0.1 10 3/mcL Normal 0.0-0.3 [facility] MAIN Comment on above: Performed By: #### C MP, MG, GFR #### [address] [address] Basophils/100 WBC (Bld) 0.9 % Normal 0.0-2.5 [facility] MAIN Comment on above: Performed By: #### C MP, MG, GFR #### [address] [address] Eosinophil, Absolute 0.3 10 3/mcL Normal 0.0-0.7 [facility] MAIN Comment on above: Performed By: #### C MP, MG, GFR #### [address] [address] Eosinophils/100 WBC (Bld) 2.0 % Normal 0.0-6.0 [facility] MAIN Comment on above: Performed By: #### C MP, MG, GFR #### [address] [address] Lymphocyte, Absolute 1.2 10 3/mcL Normal 0.9-4.3 [facility] MAIN Comment on above: Performed By: #### C MP, MG, GFR #### [address] [address] Lymphocytes/100 WBC (Bld) 9.6 % Low 20.0-40.0 [facility] MAIN Comment on above: Performed By: #### C MP, MG, GFR #### [address] [address] Monocyte, Absolute 1.0 10 3/mcL Normal 0.1-1.4 [facility] MAIN Comment on above: Performed By: #### C MP, MG, GFR #### [address] [address] Monocytes/100 WBC (Bld) 7.6 % Normal 2.0-13.0 [facility] MAIN Comment on above: Performed By: #### C MP, MG, GFR #### [address] [address] Neutrophils/100 WBC (Bld) 79.9 % High 50.0-75.0 [facility] MAIN Comment on above: Performed By: #### C MP, MG, GFR #### [address] [address] Basophil, Absolute 0.1 10 3/mcL Normal 0.0-0.3 [facility] MAIN Comment on above: Performed By: #### G FR, BMP #### [address] [address] Basophils/100 WBC (Bld) 0.9 % Normal 0.0-2.5 [facility] MAIN Comment on above: Performed By: #### G FR, BMP #### [address] [address] Eosinophil, Absolute 0.3 10 3/mcL Normal 0.0-0.7 [facility] MAIN Comment on above: Performed By: #### G FR, BMP #### [address] [address] Eosinophils/100 WBC (Bld) 2.5 % Normal 0.0-6.0 [facility] MAIN Comment on above: Performed By: #### G FR, BMP #### [facility] [address] [place] [address] Lymphocyte, Absolute 1.2 10 3/mcL Normal 0.9-4.3 [facility] MAIN Comment on above: Performed By: #### G FR, BMP #### [facility] [address] [place] [address] Lymphocytes/100 WBC (Bld) 10.3 % Low 20.0-40.0 [facility] MAIN Comment on above: Performed By: #### G FR, BMP #### [facility] [address] [place] [address] Monocyte, Absolute 1.0 10 3/mcL Normal 0.1-1.4 [facility] MAIN Comment on above: Performed By: #### G FR, BMP #### [facility] [address] [place] [address] Monocytes/100 WBC (Bld) 9.0 % Normal 2.0-13.0 [facility] MAIN Comment on above: Performed By: #### G FR, BMP #### [facility] [address] [place] [address] Neutrophils/100 WBC (Bld) 77.3 % High 50.0-75.0 [facility] MAIN Comment on above: Performed By: #### G FR, BMP #### [facility] [address] [place] [address] .GFRon 06-30-2024 Estimated Glomerular Filtration Rate 33 ml/min/1.73sqm Normal [facility] MAIN Comment on above: Result Comment: Stages [...] Performed By: #### G FR, BMP #### [address] [address] .NEUABSon 06-30-2024 Neutrophil, Absolute 10.1 10 3/mcL High 2.3-8.1 [facility] MAIN Comment on above: Performed By: #### C MP, MG, GFR #### [place] [id number] Neutrophil, Absolute 8.8 10 3/mcL High 2.3-8.1 [facility] MAIN Comment on above: Performed By: #### G FR, BMP #### [address] 06-30-2024 BUN/Creatinine Ratio 27.2 ratio High 10.0-22.0 [facility] MAIN Comment on above: Performed By: #### G FR, BMP #### [place] [address] Calcium [Mass/Vol] 8.8 mg/dL Normal 8.7-10.4 [facility] MAIN Comment on above: Performed By: #### G FR, BMP #### [address] [address] Chloride [Moles/Vol] 100 mmol/L Normal 98-110 [facility] MAIN Comment on above: Performed By: #### G FR, BMP #### [place] [id number] CO2 [Moles/Vol] 31 mmol/L Normal 22-32 [facility] MAIN Comment on above: Performed By: #### G FR, BMP #### [address] [address] Creatinine [Mass/Vol] 1.58 mg/dL High 0.50-1.20 [facility] MAIN Comment on above: Result Comment: Test ing performed on Cinegif analyzer using enzymatic creatinine methodology. Performed By: #### G FR, BMP #### [address] [address] Electrolyte Balance 5.0 mEq/L Normal 4.0-15.0 [facility] MAIN Comment on above: Performed By: #### G FR, BMP #### [address] [address] Glucose [Mass/Vol] 95 mg/dL Normal 82-115 [facility] MAIN Comment on above: Performed By: #### G FR, BMP #### [address] [address] Potassium [Moles/Vol] 4.2 mmol/L Normal 3.5-5.0 [facility] MAIN Comment on above: Performed By: #### G FR, BMP #### [address] [address] Sodium [Moles/Vol] 136 mmol/L Normal 136-145 [facility] MAIN Comment on above: Performed By: #### G FR, BMP #### [address] [address] Urea nitrogen [Mass/Vol] 43.0 mg/dL High 8.0-22.0 [facility] MAIN Comment on above: Performed By: #### G FR, BMP #### [address] [address] CBCon 06-30-2024 Erythrocyte distribution width (RBC) [Ratio] 14.9 % Normal 11.5-15.5 [facility] MAIN Comment on above: Performed By: #### C MP, MG, GFR #### [address] [address] Hematocrit (Bld) [Volume fraction] 35.9 % Normal 34.0-46.0 [facility] MAIN Comment on above: Performed By: #### C MP, MG, GFR #### [address] [address] Hgb 12.2 G/dL Normal 12.0-16.0 [facility] MAIN Comment on above: Performed By: #### C MP, MG, GFR #### [address] [address] MCH (RBC) [Entitic mass] 30.0 pg Normal 27.0-33.0 [facility] MAIN Comment on above: Performed By: #### C MP, MG, GFR #### [place] [id number] MCHC 33.9 G/dL Normal 32.0-36.0 [facility] MAIN Comment on above: Performed By: #### C MP, MG, GFR #### [place] [id number] MCV (RBC) [Entitic vol] 88.4 fL Normal 80.0-99.0 [facility] MAIN Comment on above: Performed By: #### C MP, MG, GFR #### [place] [address] Platelet 331 10 3/mcL Normal 150-450 [facility] MAIN Comment on above: Performed By: #### C MP, MG, GFR #### [place] [address] Platelet mean volume (Bld) [Entitic vol] 7.6 fL Normal 6.6-10.5 [facility] MAIN Comment on above: Performed By: #### C MP, MG, GFR #### [place] [address] RBC 4.06 10 6/mcL Low 4.10-5.30 [facility] MAIN Comment on above: Performed By: #### C MP, MG, GFR #### [place] [id number] WBC 12.6 10 3/mcL High 4.5-10.8 [facility] MAIN Comment on above: Performed By: #### C MP, MG, GFR #### [place] [address] Erythrocyte distribution width (RBC) [Ratio] 14.9 % Normal 11.5-15.5 [facility] MAIN Comment on above: Performed By: #### G FR, BMP #### [place] [address] Hematocrit (Bld) [Volume fraction] 35.7 % Normal 34.0-46.0 [facility] MAIN Comment on above: Performed By: #### G FR, BMP #### [place] [address] Hgb 12.4 G/dL Normal 12.0-16.0 [facility] MAIN Comment on above: Performed By: #### G , BMP #### [place] [address] MCH (RBC) [Entitic mass] 31.1 pg Normal 27.0-33.0 [facility] MAIN Comment on above: Performed By: #### G FR, BMP #### [place] [address] MCHC 34.6 G/dL Normal 32.0-36.0 [facility] MAIN Comment on above: Performed By: #### G FR, BMP #### [place] [address] MCV (RBC) [Entitic vol] 90.0 fL Normal 80.0-99.0 [facility] MAIN Comment on above: Performed By: #### G FR, BMP #### [place] [address] Platelet 329 10 3/mcL Normal 150-450 [facility] MAIN Comment on above: Performed By: #### G , BMP #### [place] [address] Platelet mean volume (Bld) [Entitic vol] 7.2 fL Normal 6.6-10.5 [facility] MAIN Comment on above: Performed By: #### G FR, BMP #### [place] [address] RBC 3.97 10 6/mcL Low 4.10-5.30 [facility] MAIN Comment on above: Performed By: #### G FR, BMP #### [place] [address] WBC 11.4 10 3/mcL High 4.5-10.8 [facility] MAIN Comment on above: Performed By: #### G FR, BMP #### [place] [address] CT THORAX W/O CONTRASTon CT THORAX W/O [...] 06/30/2024 8:44:59 AM Ordering Provider: ISAURA JACKSON [facility] MAIN LABORATORYOrdered By: SYSTEM SYSTEM on [...] above: Interpretive Data: T esting performed on Cinegif analyzer using enzymatic creatinine methodology. Electrolyte Balance [...] 06-30-2024 Magnesium [Mass/Vol] 2.2 mg/dL Normal 1.6-2.4 [facility] MAIN Comment on above: Performed By: #### G FR, BMP #### [address] [address] .Auto Diffon 06-29-2024 Basophil, Absolute 0.1 10 3/mcL Normal 0.0-0.3 [facility] MAIN Comment on above: Performed By: #### A COLLIN, MG, BMP, ADIFF, GFR, CBC, HFP #### [address] [address] Basophils/100 WBC (Bld) 0.9 % Normal 0.0-2.5 [facility] MAIN Comment on above: Performed By: #### A COLLIN, MG, BMP, ADIFF, GFR, CBC, HFP #### [address] [address] Eosinophil, Absolute 0.2 10 3/mcL Normal 0.0-0.7 [facility] MAIN Comment on above: Performed By: #### A COLLIN, MG, BMP, ADIFF, GFR, CBC, HFP #### [address] [address] Eosinophils/100 WBC (Bld) 2.2 % Normal 0.0-6.0 [facility] MAIN Comment on above: Performed By: #### A COLLIN, MG, BMP, ADIFF, GFR, CBC, HFP #### [address] [address] Lymphocyte, Absolute 1.1 10 3/mcL Normal 0.9-4.3 [facility] MAIN Comment on above: Performed By: #### A COLLIN, MG, BMP, ADIFF, GFR, CBC, HFP #### [address] [address] Lymphocytes/100 WBC (Bld) 9.6 % Low 20.0-40.0 [facility] MAIN Comment on above: Performed By: #### A COLLIN, MG, BMP, ADIFF, GFR, CBC, HFP #### [address] [address] Monocyte, Absolute 0.9 10 3/mcL Normal 0.1-1.4 [facility] MAIN Comment on above: Performed By: #### A COLLIN, MG, BMP, ADIFF, GFR, CBC, HFP #### [address] [address] Monocytes/100 WBC (Bld) 7.9 % Normal 2.0-13.0 [facility] MAIN Comment on above: Performed By: #### A COLLIN, MG, BMP, ADIFF, GFR, CBC, HFP #### [address] [address] Neutrophils/100 WBC (Bld) 79.4 % High 50.0-75.0 [facility] MAIN Comment on above: Performed By: #### A COLLIN, MG, BMP, ADIFF, GFR, CBC, HFP #### [address] [address] .GFRon 06-29-2024 Estimated Glomerular Filtration Rate 37 ml/min/1.73sqm Normal [facility] MAIN Comment on above: Result Comment: Stages [...] MG, BMP, ADIFF, GFR, CBC, HFP #### [address] [address] .NEUABSon 06-29-2024 Neutrophil, Absolute 8.7 10 3/mcL High 2.3-8.1 [facility] MAIN Comment on above: Performed By: #### A COLLIN, MG, BMP, ADIFF, GFR, CBC, HFP #### [address] [address] [facility] BUN/Creatinine Ratio 20.4 ratio Normal 10.0-22.0 [facility] MAIN Comment on above: Performed By: #### A COLLIN, MG, BMP, ADIFF, GFR, CBC, HFP #### [address] [address] Calcium [Mass/Vol] 9.5 mg/dL Normal 8.7-10.4 [facility] MAIN Comment on above: Performed By: #### A COLLIN, MG, BMP, ADIFF, GFR, CBC, HFP #### [address] [address] Chloride [Moles/Vol] 98 mmol/L Normal 98-110 [facility] MAIN Comment on above: Performed By: #### A COLLIN, MG, BMP, ADIFF, GFR, CBC, HFP #### [address] [address] CO2 [Moles/Vol] 34 mmol/L High 22-32 [facility] MAIN Comment on above: Performed By: #### A COLLIN, MG, BMP, ADIFF, GFR, CBC, HFP #### [address] [address] Creatinine [Mass/Vol] 1.42 mg/dL High 0.50-1.20 [facility] MAIN Comment on above: Result Comment: Test ing performed on Cinegif analyzer using enzymatic creatinine methodology. Performed By: #### A COLLIN, MG, BMP, ADIFF, GFR, CBC, HFP #### [address] [address] Electrolyte Balance 7.0 mEq/L Normal 4.0-15.0 [facility] MAIN Comment on above: Performed By: #### A COLLIN, MG, BMP, ADIFF, GFR, CBC, HFP #### [address] [address] Glucose [Mass/Vol] 83 mg/dL Normal 82-115 [facility] MAIN Comment on above: Performed By: #### A COLLIN, MG, BMP, ADIFF, GFR, CBC, HFP #### [address] [address] Potassium [Moles/Vol] 3.3 mmol/L Low 3.5-5.0 [facility] MAIN Comment on above: Performed By: #### A COLLIN, MG, BMP, ADIFF, GFR, CBC, HFP #### [address] [address] Sodium [Moles/Vol] 139 mmol/L Normal 136-145 [facility] MAIN Comment on above: Performed By: #### A COLLIN, MG, BMP, ADIFF, GFR, CBC, HFP #### [address] [address] Urea nitrogen [Mass/Vol] 29.0 mg/dL High 8.0-22.0 [facility] MAIN Comment on above: Performed By: #### A COLLIN, MG, BMP, ADIFF, GFR, CBC, HFP #### [address] [address] CBCon 06-29-2024 Erythrocyte distribution width (RBC) [Ratio] 15.0 % Normal 11.5-15.5 [facility] MAIN Comment on above: Performed By: #### A COLLIN, MG, BMP, ADIFF, GFR, CBC, HFP #### [place] [address] Hematocrit (Bld) [Volume fraction] 37.7 % Normal 34.0-46.0 [facility] MAIN Comment on above: Performed By: #### A COLLIN, MG, BMP, ADIFF, GFR, CBC, HFP #### [place] [address] Hgb 13.2 G/dL Normal 12.0-16.0 [facility] MAIN Comment on above: Performed By: #### A COLLIN, MG, BMP, ADIFF, GFR, CBC, HFP #### [place] [address] MCH (RBC) [Entitic mass] 30.9 pg Normal 27.0-33.0 [facility] MAIN Comment on above: Performed By: #### A COLLIN, MG, BMP, ADIFF, GFR, CBC, HFP #### [place] [address] MCHC 35.0 G/dL Normal 32.0-36.0 [facility] MAIN Comment on above: Performed By: #### A COLLIN, MG, BMP, ADIFF, GFR, CBC, HFP #### [place] [address] MCV (RBC) [Entitic vol] 88.3 fL Normal 80.0-99.0 [facility] MAIN Comment on above: Performed By: #### A COLLIN, MG, BMP, ADIFF, GFR, CBC, HFP #### [place] [address] Platelet 342 10 3/mcL Normal 150-450 [facility] MAIN Comment on above: Performed By: #### A COLLIN, MG, BMP, ADIFF, GFR, CBC, HFP #### [place] [address] Platelet mean volume (Bld) [Entitic vol] 7.3 fL Normal 6.6-10.5 [facility] MAIN Comment on above: Performed By: #### A COLLIN, MG, BMP, ADIFF, GFR, CBC, HFP #### [place] [id number] [place] [address] RBC 4.27 10 6/mcL Normal 4.10-5.30 [facility] MAIN Comment on above: Performed By: #### A COLLIN, MG, BMP, ADIFF, GFR, CBC, HFP #### [place] [id number] [place] [address] WBC 11.0 10 3/mcL High 4.5-10.8 [facility] MAIN Comment on above: Performed By: #### A COLLIN, MG, BMP, ADIFF, GFR, CBC, HFP #### [address] [address] LABORATORYOrdered By: SYSTEM SYSTEM on 06-29-2024 Calcium [...] above: Interpretive Data: T esting performed on Cinegif analyzer using enzymatic creatinine methodology. Electrolyte Balance [...] 06-29-2024 Magnesium [Mass/Vol] 2.2 mg/dL Normal 1.6-2.[address] [facility] Comment on above: Performed By: #### A COLLIN, MG, BMP, ADIFF, GFR, CBC, HFP #### [place] [address] .Auto Diffon 06-28-2024 Basophil, Absolute 0.0 10 3/mcL Normal 0.0-0.2 [facility] Comment on above: Performed By: #### M DW, MG, GFR, BMP, CBC, ANEU, TROPHS, ADIFF #### [address] [address] Basophils/100 WBC (Bld) 0.3 % Normal 0.0-2.5 [facility] Comment on above: Performed By: #### M DW, MG, GFR, BMP, CBC, ANEU, TROPHS, ADIFF #### [address] [address] Eosinophil, Absolute 0.2 10 3/mcL Normal 0.0-0.7 [facility] Comment on above: Performed By: #### M DW, MG, GFR, BMP, CBC, ANEU, TROPHS, ADIFF #### [address] [address] Eosinophils/100 WBC (Bld) 1.6 % Normal 0.0-7.0 [facility] Comment on above: Performed By: #### M DW, MG, GFR, BMP, CBC, ANEU, TROPHS, ADIFF #### [address] [address] Lymphocyte, Absolute 1.2 10 3/mcL Normal 0.9-4.3 [facility] Comment on above: Performed By: #### M DW, MG, GFR, BMP, CBC, ANEU, TROPHS, ADIFF #### [address] [address] Lymphocytes/100 WBC (Bld) 9.7 % Low 20.0-40.0 [facility] Comment on above: Performed By: #### M DW, MG, GFR, BMP, CBC, ANEU, TROPHS, ADIFF #### [address] [address] Monocyte, Absolute 0.9 10 3/mcL Normal 0.1-1.4 [facility] Comment on above: Performed By: #### M DW, MG, GFR, BMP, CBC, ANEU, TROPHS, ADIFF #### [address] [address] Monocytes/100 WBC (Bld) 7.4 % Normal 2.0-13.0 [facility] Comment on above: Performed By: #### M DW, MG, GFR, BMP, CBC, ANEU, TROPHS, ADIFF #### [address] [address] Neutrophils/100 WBC (Bld) 80.8 % High 50.0-75.0 [facility] Comment on above: Performed By: #### M DW, MG, GFR, BMP, CBC, ANEU, TROPHS, ADIFF #### [address] [address] .GFRon 06-28-2024 Estimated Glomerular Filtration Rate 42 ml/min/1.73sqm Normal [facility] Comment on above: Result Comment: Stages [...] GFR, BMP, CBC, ANEU, TROPHS, ADIFF #### [address] [address] .MDWon 06-28-2024 Monocyte Distribution Width Not tested Normal 0.00-20.00 [facility] Comment on above: Result Comment: MDW testing unable to be performed on [id number] instrumentation. Performed By: #### M DW, MG, GFR, BMP, CBC, ANEU, TROPHS, ADIFF #### [address] [address] .NEUABSon 06-28-2024 Neutrophil, Absolute 10.2 10 3/mcL High 2.3-8.1 [facility] Comment on above: Performed By: #### M DW, MG, GFR, BMP, CBC, ANEU, TROPHS, ADIFF #### [address] [address] BMPon 06-28-2024 BUN/Creatinine Ratio 23 ratio Normal 7-27 [facility] Comment on above: Performed By: #### M DW, MG, GFR, BMP, CBC, ANEU, TROPHS, ADIFF #### [address] [address] Calcium [Mass/Vol] 9.4 mg/dL Normal 8.4-10.2 [facility] Comment on above: Performed By: #### M DW, MG, GFR, BMP, CBC, ANEU, TROPHS, ADIFF #### [address] [address] Chloride [Moles/Vol] 101 mmol/L Normal 98-107 [facility] Comment on above: Performed By: #### M DW, MG, GFR, BMP, CBC, ANEU, TROPHS, ADIFF #### [address] [address] CO2 [Moles/Vol] 32 mmol/L High 23-31 [facility] Comment on above: Performed By: #### M DW, MG, GFR, BMP, CBC, ANEU, TROPHS, ADIFF #### [address] [address] Creatinine [Mass/Vol] 1.28 mg/dL High 0.55-1.02 [facility] Comment on above: Result Comment: Test ing performed on Siemens Dimension EXL analyzer using a modified kinetic Josse technique. Performed By: #### M DW, MG, GFR, BMP, CBC, ANEU, TROPHS, ADIFF #### [address] [address] Electrolyte Balance 6.0 mEq/L Normal 4.0-15.0 [facility] Comment on above: Performed By: #### M DW, MG, GFR, BMP, CBC, ANEU, TROPHS, ADIFF #### [address] [address] Glucose [Mass/Vol] 122 mg/dL High 83-110 [facility] Comment on above: Performed By: #### M DW, MG, GFR, BMP, CBC, ANEU, TROPHS, ADIFF #### [address] [address] Potassium [Moles/Vol] 3.7 mmol/L Normal 3.5-5.1 [facility] Comment on above: Performed By: #### M DW, MG, GFR, BMP, CBC, ANEU, TROPHS, ADIFF #### [address] [address] Sodium [Moles/Vol] 139 mmol/L Normal 136-145 [facility] Comment on above: Performed By: #### M DW, MG, GFR, BMP, CBC, ANEU, TROPHS, ADIFF #### [address] [address] Urea nitrogen [Mass/Vol] 29 mg/dL High 7-18 [facility] Comment on above: Performed By: #### M DW, MG, GFR, BMP, CBC, ANEU, TROPHS, ADIFF #### [address] [address] CBCon 06-28-2024 Erythrocyte distribution width (RBC) [Ratio] 14.4 % Normal 11.5-15.5 [facility] Comment on above: Performed By: #### M DW, MG, GFR, BMP, CBC, ANEU, TROPHS, ADIFF #### [address] [address] Hematocrit (Bld) [Volume fraction] 39.2 % Normal 34.0-46.0 [facility] Comment on above: Performed By: #### M DW, MG, GFR, BMP, CBC, ANEU, TROPHS, ADIFF #### [address] [address] Hgb 13.9 G/dL Normal 12.0-16.0 [facility] Comment on above: Performed By: #### M DW, MG, GFR, BMP, CBC, ANEU, TROPHS, ADIFF #### [address] [address] MCH (RBC) [Entitic mass] 31.0 pg Normal 27.0-33.0 [facility] Comment on above: Performed By: #### M DW, MG, GFR, BMP, CBC, ANEU, TROPHS, ADIFF #### [address] [address] MCHC 35.5 G/dL Normal 32.0-36.0 [facility] Comment on above: Performed By: #### M DW, MG, GFR, BMP, CBC, ANEU, TROPHS, ADIFF #### [address] [address] MCV (RBC) [Entitic vol] 87.2 fL Normal 80.0-99.0 [facility] Comment on above: Performed By: #### M DW, MG, GFR, BMP, CBC, ANEU, TROPHS, ADIFF #### [address] [address] Platelet 338 10 3/mcL Normal 150-450 [facility] Comment on above: Performed By: #### M DW, MG, GFR, BMP, CBC, ANEU, TROPHS, ADIFF #### [place] [address] Platelet mean volume (Bld) [Entitic vol] 7.1 fL Normal 6.6-10.5 [facility] Comment on above: Performed By: #### M DW, MG, GFR, BMP, CBC, ANEU, TROPHS, ADIFF #### [place] [address] RBC 4.49 10 6/mcL Normal 4.10-5.30 [facility] Comment on above: Performed By: #### M DW, MG, GFR, BMP, CBC, ANEU, TROPHS, ADIFF #### [place] [address] WBC 12.6 10 3/mcL High 4.5-10.8 [facility] Comment on above: Performed By: #### M DW, MG, GFR, BMP, CBC, ANEU, TROPHS, ADIFF #### [place] [address] CVFLURVon 06-28-2024 FLU A PCR Negative Normal Negative [facility] Comment on above: Performed By: #### M DW, MG, GFR, BMP, CBC, ANEU, TROPHS, ADIFF #### [place] [address] FLU B PCR Negative Normal Negative [facility] Comment on above: Performed By: #### M DW, MG, GFR, BMP, CBC, ANEU, TROPHS, ADIFF #### [place] [address] RSV PCR Negative Normal Negative [facility] Comment on above: Performed By: #### M DW, MG, GFR, BMP, CBC, ANEU, TROPHS, ADIFF #### [place] [address] SARS-CoV-2 (COVID-19) RNA MARISELA+probe Ql (Unsp spec) Negative Normal Negative [facility] Comment on above: Result Comment: Resu [...] GFR, BMP, CBC, ANEU, TROPHS, ADIFF #### [place] [address] LABORATORYOrdered By: SYSTEM SYSTEM on 06-28-2024 Troponin I.cardiac DL <= 0.01 ng/mL [Mass/Vol] 88 ng/L High 0 - 34 ng/L [facility] Comment on above: Interpretive Data: High Sensitive Troponin I Reference Ranges: Female: 0-34 ng/L Male: 0-54 ng/L Testing performed on [employer] analyzer using direct chemiluminescent technology. PBNPon 06-28-2024 Natriuretic peptide B (Bld) [Mass/Vol] 8302 pg/mL High 0-450 [facility] Comment on above: Result Comment: NT-p roBNP results of less than 300 pg/mL effectively rules out acute congestive heart failure with 99% negative predictive value. Performed By: #### M DW, MG, GFR, BMP, CBC, ANEU, TROPHS, ADIFF #### [place] [id number] [place], [place] [address]Son 06-28-2024 High Sensitivity Troponin I 88 ng/L High 0-34 [facility] Comment on above: Result Comment: High Sensitive Troponin I Reference Ranges: Female: 0-34 ng/L Male: 0-54 ng/L Testing performed on [employer] IM analyzer using direct chemiluminescent technology. Performed By: #### A COLLIN, MG, BMP, ADIFF, GFR, CBC, HFP #### [facility] [address] [place] [address] High Sensitivity Troponin I 154 ng/L High 0-51 [facility] Comment on above: Result Comment: High Sensitive Troponin I Reference Ranges: Female: 0-51 ng/L Male: 0-76 ng/L Testing performed on [employer] using a homogeneous sandwich chemiluminescent immunoassay based on Aura XM technology. Performed By: #### M DW, MG, GFR, BMP, CBC, ANEU, TROPHS, ADIFF #### [facility] [address] [place], [place] [address] XR CHEST 1 VIEWon 06-28-2024 XR CHEST [...] 06/28/2024 2:04:30 AM Ordering Provider: TIN HOFFMAN [facility] .GFRon 06-26-2024 Estimated Glomerular Filtration Rate 40 ml/min/1.73sqm [facility] Comment on above: Result Comment: Stages [...] GFR, BMP, CBC, ANEU, TROPHS, ADIFF #### [address] [address] BMPon 06-26-2024 BUN/Creatinine Ratio 24 ratio Normal 7-27 [facility] Comment on above: Performed By: #### M DW, MG, GFR, BMP, CBC, ANEU, TROPHS, ADIFF #### [address] [address] Calcium [Mass/Vol] 9.8 mg/dL Normal 8.4-10.2 [facility] Comment on above: Performed By: #### M DW, MG, GFR, BMP, CBC, ANEU, TROPHS, ADIFF #### [address] [address] Chloride [Moles/Vol] 100 mmol/L Normal 98-107 [facility] Comment on above: Performed By: #### M DW, MG, GFR, BMP, CBC, ANEU, TROPHS, ADIFF #### [address] [address] CO2 [Moles/Vol] 32 mmol/L High 23-31 [facility] Comment on above: Performed By: #### M DW, MG, GFR, BMP, CBC, ANEU, TROPHS, ADIFF #### [address] [address] Creatinine [Mass/Vol] 1.34 mg/dL High 0.55-1.02 [facility] Comment on above: Result Comment: Test ing performed on Siemens Dimension EXL analyzer using a modified kinetic Josse technique. Performed By: #### M DW, MG, GFR, BMP, CBC, ANEU, TROPHS, ADIFF #### [address] [address] Electrolyte Balance 6.0 mEq/L Normal 4.0-15.0 [facility] Comment on above: Performed By: #### M DW, MG, GFR, BMP, CBC, ANEU, TROPHS, ADIFF #### [address] [address] Glucose [Mass/Vol] 99 mg/dL Normal 83-110 [facility] Comment on above: Performed By: #### M DW, MG, GFR, BMP, CBC, ANEU, TROPHS, ADIFF #### [address] [address] Potassium [Moles/Vol] 4.2 mmol/L Normal 3.5-5.1 [facility] Comment on above: Performed By: #### M DW, MG, GFR, BMP, CBC, ANEU, TROPHS, ADIFF #### [address] [address] Sodium [Moles/Vol] 138 mmol/L Normal 136-145 [facility] Comment on above: Performed By: #### M DW, MG, GFR, BMP, CBC, ANEU, TROPHS, ADIFF #### [address] [address] Urea nitrogen [Mass/Vol] 32 mg/dL High - [facility] Comment on above: Performed By: #### M DW, MG, GFR, BMP, CBC, ANEU, TROPHS, ADIFF #### [address] [address] CAIONon 06-26-2024 Calcium Ionized 1.19 mmol/L Normal 1.12-1.32 [facility] Comment on above: Performed By: #### M DW, MG, GFR, BMP, CBC, ANEU, TROPHS, ADIFF #### [address] [address] PTHon 06-26-2024 PTH, Intact 141.0 pg/mL High 18.5-88.0 [facility] Comment on above: Performed By: #### M DW, MG, GFR, BMP, CBC, ANEU, TROPHS, ADIFF #### [facility] [address] [place], [place] [address] .Auto Diffon 06-19-2024 Basophil, Absolute 0.1 10 3/mcL Normal 0.0-0.3 [facility] Comment on above: Performed By: #### G FR, BMP #### [address] [address] Basophils/100 WBC (Bld) 1.1 % Normal 0.0-2.5 [facility] Comment on above: Performed By: #### G FR, BMP #### [address] [address] Eosinophil, Absolute 0.1 10 3/mcL Normal 0.0-0.7 [facility] Comment on above: Performed By: #### G FR, BMP #### [address] [address] Eosinophils/100 WBC (Bld) 1.2 % Normal 0.0-6.0 [facility] Comment on above: Performed By: #### G FR, BMP #### [address] [address] Lymphocyte, Absolute 0.8 10 3/mcL Low 0.9-4.3 [facility] Comment on above: Performed By: #### G FR, BMP #### [address] [address] Lymphocytes/100 WBC (Bld) 7.8 % Low 20.0-40.0 [facility] Comment on above: Performed By: #### G FR, BMP #### [address] [address] Monocyte, Absolute 0.8 10 3/mcL Normal 0.1-1.4 [facility] Comment on above: Performed By: #### G FR, BMP #### [address] [address] Monocytes/100 WBC (Bld) 8.2 % Normal 2.0-13.0 [facility] Comment on above: Performed By: #### G FR, BMP #### [address] [address] Neutrophils/100 WBC (Bld) 81.7 % High 50.0-75.0 [facility] Comment on above: Performed By: #### G FR, BMP #### [address] [address] .GFRon 06-19-2024 Estimated Glomerular Filtration Rate 55 ml/min/1.73sqm [facility] Comment on above: Result Comment: [...] MG, BMP, ADIFF, GFR, CBC, HFP #### [address] [address] Estimated Glomerular Filtration Rate 53 ml/min/1.73sqm [facility] Comment on above: Result Comment: [...] Performed By: #### G FR, BMP #### [address] [address] .NEUABSon 06-19-2024 Neutrophil, Absolute 8.4 10 3/mcL High 2.3-8.1 [facility] Comment on above: Performed By: #### G FR, BMP #### [address] [address] BGRPon 06-19-2024 Base Excess - POC 6.3 mmol/L Normal [facility] Comment on above: Performed By: #### C MP, MG, GFR #### [place] [address] CO2 [Moles/Vol] 31.3 mmol/L High 22.0-30.0 [facility] Comment on above: Performed By: #### C MP, MG, GFR #### [place] [address] HCO3 (Bld) [Moles/Vol] 30.1 mmol/L High 21.0-29.0 [facility] Comment on above: Performed By: #### C MP, MG, GFR #### [place] [address] Oxygen saturation in Blood 73.8 % Low 92.0-96.0 [facility] Comment on above: Performed By: #### C MP, MG, GFR #### [place] [address] PCO2 - POC 40.3 mmHg Normal 32.0-46.0 [facility] Comment on above: Performed By: #### C MP, MG, GFR #### [place] [address] pH (poct) - POC 7.491 High 7.380-7.460 [facility] Comment on above: Performed By: #### C MP, MG, GFR #### [place] [address] PO2 - POC 37.7 mmHg Low 74.0-108.0 [facility] Comment on above: Performed By: #### C MP, MG, GFR #### [address] [address] BMPon 06-19-2024 BUN/Creatinine Ratio 17.5 ratio Normal 10.0-22.0 [facility] Comment on above: Performed By: #### A COLLIN, MG, BMP, ADIFF, GFR, CBC, HFP #### [address] [address] Calcium [Mass/Vol] 9.7 mg/dL Normal 8.7-10.4 [facility] Comment on above: Performed By: #### A COLLIN, MG, BMP, ADIFF, GFR, CBC, HFP #### [place] [id number] Chloride [Moles/Vol] 100 mmol/L Normal 98-110 [facility] Comment on above: Performed By: #### A COLLIN, MG, BMP, ADIFF, GFR, CBC, HFP #### [place] [id number] CO2 [Moles/Vol] 36 mmol/L High 22-32 [facility] Comment on above: Performed By: #### A COLLIN, MG, BMP, ADIFF, GFR, CBC, HFP #### [place] [id number] Creatinine [Mass/Vol] 1.03 mg/dL Normal 0.50-1.20 [facility] Comment on above: Result Comment: Test ing performed on Cinegif analyzer using enzymatic creatinine methodology. Performed By: #### A COLLIN, MG, BMP, ADIFF, GFR, CBC, HFP #### [place] [id number] Electrolyte Balance 3.0 mEq/L Low 4.0-15.0 [facility] Comment on above: Performed By: #### A COLLIN, MG, BMP, ADIFF, GFR, CBC, HFP #### [place] [id number] Glucose [Mass/Vol] 92 mg/dL Normal 82-115 [facility] Comment on above: Performed By: #### A COLLIN, MG, BMP, ADIFF, GFR, CBC, HFP #### [address] [address] Potassium [Moles/Vol] 3.4 mmol/L Low 3.5-5.0 [facility] Comment on above: Performed By: #### A COLLIN, MG, BMP, ADIFF, GFR, CBC, HFP #### [address] [address] Sodium [Moles/Vol] 139 mmol/L Normal 136-145 [facility] Comment on above: Performed By: #### A COLLIN, MG, BMP, ADIFF, GFR, CBC, HFP #### [address] [address] Urea nitrogen [Mass/Vol] 18.0 mg/dL Normal 8.0-22.0 [facility] Comment on above: Performed By: #### A COLLIN, MG, BMP, ADIFF, GFR, CBC, HFP #### [address] [address] BUN/Creatinine Ratio 17.9 ratio Normal 10.0-22.0 [facility] Comment on above: Performed By: #### G FR, BMP #### [address] [address] Calcium [Mass/Vol] 9.9 mg/dL Normal 8.7-10.4 [facility] Comment on above: Performed By: #### G FR, BMP #### [address] [address] Chloride [Moles/Vol] 98 mmol/L Normal 98-110 [facility] Comment on above: Performed By: #### G FR, BMP #### [address] [address] CO2 [Moles/Vol] 35 mmol/L High 22-32 [facility] Comment on above: Performed By: #### G FR, BMP #### [address] [address] Creatinine [Mass/Vol] 1.06 mg/dL Normal 0.50-1.20 [facility] Comment on above: Result Comment: Test ing performed on Cinegif analyzer using enzymatic creatinine methodology. Performed By: #### G FR, BMP #### [address] [address] Electrolyte Balance 6.0 mEq/L Normal 4.0-15.0 [facility] Comment on above: Performed By: #### Ed WAGNER, BMP #### [place] [id number] Glucose [Mass/Vol] 92 mg/dL Normal 82-115 [facility] Comment on above: Performed By: #### Ed WAGNER, BMP #### [place] [address] Potassium [Moles/Vol] 2.7 mmol/L Critically abnormal 3.5-5.0 [facility] Comment on above: Performed By: #### Ed WAGNER, BMP #### [place] [id number] Sodium [Moles/Vol] 139 mmol/L Normal 136-145 [facility] Comment on above: Performed By: #### Ed WAGNER, BMP #### [place] [address] Urea nitrogen [Mass/Vol] 19.0 mg/dL Normal 8.0-22.0 [facility] Comment on above: Performed By: #### Ed WAGNER, BMP #### [address] 06-19-2024 Ionized Calcium - POC 1.16 mmol/L Normal 1.12-1.32 [facility] Comment on above: Performed By: #### Ed WAGNER, BMP #### [address] 06-19-2024 Erythrocyte distribution width (RBC) [Ratio] 14.7 % Normal 11.5-15.5 [facility] Comment on above: Performed By: #### Ed WAGNER, BMP #### [place] [id number] Hematocrit (Bld) [Volume fraction] 38.3 % Normal 34.0-46.0 [facility] Comment on above: Performed By: #### Ed WAGNER, BMP #### [place] [address] Hgb 13.6 G/dL Normal 12.0-16.0 [facility] Comment on above: Performed By: #### G FR, BMP #### [place] [address] MCH (RBC) [Entitic mass] 31.6 pg Normal 27.0-33.0 [facility] Comment on above: Performed By: #### G FR, BMP #### [place] [address] MCHC 35.6 G/dL Normal 32.0-36.0 [facility] Comment on above: Performed By: #### G FR, BMP #### [place] [address] MCV (RBC) [Entitic vol] 88.7 fL Normal 80.0-99.0 [facility] Comment on above: Performed By: #### G FR, BMP #### [place] [address] Platelet 267 10 3/mcL Normal 150-450 [facility] Comment on above: Performed By: #### G FR, BMP #### [place] [address] Platelet mean volume (Bld) [Entitic vol] 7.2 fL Normal 6.6-10.5 [facility] Comment on above: Performed By: #### G FR, BMP #### [place] [address] RBC 4.32 10 6/mcL Normal 4.10-5.30 [facility] Comment on above: Performed By: #### G FR, BMP #### [place] [address] WBC 10.3 10 3/mcL Normal 4.5-10.8 [facility] Comment on above: Performed By: #### G FR, BMP #### [place] [address] CLRPon 06-19-2024 Chloride [Moles/Vol] 96 mmol/L Low 98-110 [facility] Comment on above: Performed By: #### C MP, MG, GFR #### [place] [address] GLURPon 06-19-2024 Glucose [Mass/Vol] 85 mg/dL Normal 82-115 [facility] Comment on above: Performed By: #### G FR, BMP #### [place] [address] HCTRPon 06-19-2024 Hematocrit (Bld) [Volume fraction] 39.0 % Normal 37.0-47.0 [facility] Comment on above: Performed By: #### G FR, BMP #### [place] [address] HGBRPon 06-19-2024 Hemoglobin (POC) 13.3 G/dL Normal 12.0-16.0 [facility] Comment on above: Performed By: #### C MP, MG, GFR #### [place] [address] KRPon 06-19-2024 Potassium [Moles/Vol] 3.2 mmol/L Low 3.5-5.0 [facility] Comment on above: Performed By: #### G FR, BMP #### [place] [address] LABORATORYOrdered By: SYSTEM SYSTEM on 06-19-2024 Calcium [Mass/Vol] 9.7 mg/dL Normal 8.7 - 10. 4 mg/dL ADM SS Chloride [Moles/Vol] 100 mmol/L Normal 98 - 11 0 mEq/L AH ADM SS CO2 [Moles/Vol] 36 mmol/L High 22 - 32 mEq/L ADM SS Creatinine [Mass/Vol] 1.03 mg/dL Normal 0.50 - 1.20 mg/dL ADM SS Comment on above: Interpretive Data: T esting performed on Cinegif analyzer using enzymatic creatinine methodology. Electrolyte Balance [...] above: Interpretive Data: T esting performed on Cinegif analyzer using enzymatic creatinine methodology. Electrolyte Balance [...] Comment on above: Interpretive Data: Jatinder samano [employer] (CHEST, 1991, 102:[id number]) [...] Performed By: #### G , BMP #### [address] [address] PROon 06-19-2024 INR Coag (PPP) [Relative time] 1.3 {INR} Normal [facility] Comment on above: Result Comment: [employer] (CHEST, 1991, 102:[id number]) recommended therapeutic range for oral anticoagulant therapy is: LOW RISK: Prophylaxis of venous thrombosis INR: 2.0-3.0 Treatment of pulmonary embolism 2.0-3.0 Prevention of systemic embolism 2.0-3.0 HIGH RISK: Mechanical prosthetic valves 2.5-3.5 Performed By: #### G FR, BMP #### [address] [address] PT Coag (PPP) [Time] 14.6 s High 9.0-14.4 [facility] Comment on above: Result Comment: Effe ctive 10/24/07, Protime results may be affected by some antibiotics (i.e. Ciprofloxacin, Azithromycin, Bactrim) which may potentiate the action of oral anticoagulants, with further increases in Protime/INR. Performed By: #### G FR, BMP #### [facility] [address] [place] [address] .GFRon 05-28-2024 Estimated Glomerular Filtration Rate 31 ml/min/1.73sqm Normal [facility] Comment on above: Result Comment: Stages [...] GFR, BMP, CBC, ANEU, TROPHS, ADIFF #### [address] [address] BMPon 05-28-2024 BUN/Creatinine Ratio 24 ratio Normal 7-27 [facility] Comment on above: Performed By: #### M DW, MG, GFR, BMP, CBC, ANEU, TROPHS, ADIFF #### [address] [address] Calcium [Mass/Vol] 9.7 mg/dL Normal 8.4-10.2 [facility] Comment on above: Performed By: #### M DW, MG, GFR, BMP, CBC, ANEU, TROPHS, ADIFF #### [address] [address] Chloride [Moles/Vol] 104 mmol/L Normal 98-107 [facility] Comment on above: Performed By: #### M DW, MG, GFR, BMP, CBC, ANEU, TROPHS, ADIFF #### [address] [address] CO2 [Moles/Vol] 32 mmol/L High 23-31 [facility] Comment on above: Performed By: #### M DW, MG, GFR, BMP, CBC, ANEU, TROPHS, ADIFF #### [address] [address] Creatinine [Mass/Vol] 1.64 mg/dL High 0.55-1.02 [facility] Comment on above: Result Comment: Test ing performed on Siemens Dimension EXL analyzer using a modified kinetic Josse technique. Performed By: #### M DW, MG, GFR, BMP, CBC, ANEU, TROPHS, ADIFF #### [address] [address] Electrolyte Balance 6.0 mEq/L Normal 4.0-15.0 [facility] Comment on above: Performed By: #### M DW, MG, GFR, BMP, CBC, ANEU, TROPHS, ADIFF #### [address] [address] Glucose [Mass/Vol] 93 mg/dL Normal 83-110 [facility] Comment on above: Performed By: #### M DW, MG, GFR, BMP, CBC, ANEU, TROPHS, ADIFF #### [address] [address] Potassium [Moles/Vol] 3.8 mmol/L Normal 3.5-5.1 [facility] Comment on above: Performed By: #### M DW, MG, GFR, BMP, CBC, ANEU, TROPHS, ADIFF #### [address] [address] Sodium [Moles/Vol] 142 mmol/L Normal 136-145 [facility] Comment on above: Performed By: #### M DW, MG, GFR, BMP, CBC, ANEU, TROPHS, ADIFF #### [address] [address] Urea nitrogen [Mass/Vol] 40 mg/dL High 7-18 [facility] Comment on above: Performed By: #### M DW, MG, GFR, BMP, CBC, ANEU, TROPHS, ADIFF #### [place] [address] [place], [place] [address] LABORATORYOrdered By: SYSTEM SYSTEM on 05-28-2024 Calcium [...] 05-28-2024 Magnesium [Mass/Vol] 2.4 mg/dL Normal 1.8-2.4 [facility] Comment on above: Performed By: #### M DW, MG, GFR, BMP, CBC, ANEU, TROPHS, ADIFF #### [address] [address] .GFRon 05-23-2024 Estimated Glomerular Filtration Rate 39 ml/min/1.73sqm Normal [facility] Comment on above: Result Comment: Stages [...] GFR, BMP, CBC, ANEU, TROPHS, ADIFF #### [address] [address] BMPon 05-23-2024 BUN/Creatinine Ratio 28 ratio High 7-27 [facility] Comment on above: Performed By: #### M DW, MG, GFR, BMP, CBC, ANEU, TROPHS, ADIFF #### [address] [address] Calcium [Mass/Vol] 9.3 mg/dL Normal 8.4-10.2 [facility] Comment on above: Performed By: #### M DW, MG, GFR, BMP, CBC, ANEU, TROPHS, ADIFF #### [address] [address] Chloride [Moles/Vol] 97 mmol/L Low 98-107 [facility] Comment on above: Performed By: #### M DW, MG, GFR, BMP, CBC, ANEU, TROPHS, ADIFF #### [address] [address] CO2 [Moles/Vol] 36 mmol/L High 23-31 [facility] Comment on above: Performed By: #### M DW, MG, GFR, BMP, CBC, ANEU, TROPHS, ADIFF #### [address] [address] Creatinine [Mass/Vol] 1.37 mg/dL High 0.55-1.02 [facility] Comment on above: Result Comment: Test ing performed on [employer] Dimension EXL analyzer using a modified kinetic Josse technique. Performed By: #### M DW, MG, GFR, BMP, CBC, ANEU, TROPHS, ADIFF #### [address] [address] Electrolyte Balance 3.0 mEq/L Low 4.0-15.0 [facility] Comment on above: Performed By: #### M DW, MG, GFR, BMP, CBC, ANEU, TROPHS, ADIFF #### [address] [address] Glucose [Mass/Vol] 94 mg/dL Normal 83-110 [facility] Comment on above: Performed By: #### M DW, MG, GFR, BMP, CBC, ANEU, TROPHS, ADIFF #### [address] [address] Potassium [Moles/Vol] 4.1 mmol/L Normal 3.5-5.1 [facility] Comment on above: Performed By: #### M DW, MG, GFR, BMP, CBC, ANEU, TROPHS, ADIFF #### [address] [address] Sodium [Moles/Vol] 136 mmol/L Normal 136-145 [facility] Comment on above: Performed By: #### M DW, MG, GFR, BMP, CBC, ANEU, TROPHS, ADIFF #### [address] [address] Urea nitrogen [Mass/Vol] 39 mg/dL High 7-18 [facility] [facility] Comment on above: Performed By: #### M DW, MG, GFR, BMP, CBC, ANEU, TROPHS, ADIFF #### [address] [place], [place] [address] LABORATORYOrdered By: SYSTEM SYSTEM on 05-23-2024 Calcium [...] above: Interpretive Data: T esting performed on [employer] Dimension EXL analyzer using a modified kinetic [...] 05-23-2024 Magnesium [Mass/Vol] 2.3 mg/dL Normal 1.8-2.4 [facility] Comment on above: Performed By: #### M DW, MG, GFR, BMP, CBC, ANEU, TROPHS, ADIFF #### [address] [address] .GFRon 05-22-2024 Estimated Glomerular Filtration Rate 32 ml/min/1.73sqm Normal [facility] Comment on above: Result Comment: Stages [...] GFR, CMP, PBNP, CBC, TSH, ADIFF #### [address] [address] BMPon 05-22-2024 BUN/Creatinine Ratio 24 ratio Normal 7-27 [facility] Comment on above: Performed By: #### A COLLIN, GFR, CMP, PBNP, CBC, TSH, ADIFF #### [address] [address] Calcium [Mass/Vol] 9.3 mg/dL Normal 8.4-10.2 [facility] Comment on above: Performed By: #### A COLLIN, GFR, CMP, PBNP, CBC, TSH, ADIFF #### [address] [address] Chloride [Moles/Vol] 98 mmol/L Normal 98-107 [facility] Comment on above: Performed By: #### A COLLIN, GFR, CMP, PBNP, CBC, TSH, ADIFF #### [address] [address] CO2 [Moles/Vol] 38 mmol/L High 23-31 [facility] Comment on above: Performed By: #### A COLLIN, GFR, CMP, PBNP, CBC, TSH, ADIFF #### [address] [address] Creatinine [Mass/Vol] 1.61 mg/dL High 0.55-1.02 [facility] Comment on above: Result Comment: Test ing performed on [employer] Dimension EXL analyzer using a modified kinetic Josse technique. Performed By: #### A COLLIN, GFR, CMP, PBNP, CBC, TSH, ADIFF #### [address] [address] Electrolyte Balance 3.0 mEq/L Low 4.0-15.0 [facility] Comment on above: Performed By: #### A COLLIN, GFR, CMP, PBNP, CBC, TSH, ADIFF #### [address] [address] Glucose [Mass/Vol] 89 mg/dL Normal 83-110 [facility] Comment on above: Performed By: #### A COLLIN, GFR, CMP, PBNP, CBC, TSH, ADIFF #### [address] [address] Potassium [Moles/Vol] 4.5 mmol/L Normal 3.5-5.1 [facility] Comment on above: Performed By: #### A COLLIN, GFR, CMP, PBNP, CBC, TSH, ADIFF #### [address] [address] Sodium [Moles/Vol] 139 mmol/L Normal 136-145 [facility] Comment on above: Performed By: #### A COLLIN, GFR, CMP, PBNP, CBC, TSH, ADIFF #### [address] [address] Urea nitrogen [Mass/Vol] 38 mg/dL High 7-18 [facility] Comment on above: Performed By: #### A COLLIN, GFR, CMP, PBNP, CBC, TSH, ADIFF #### [address] [place] [address] LABORATORYOrdered By: SYSTEM SYSTEM on 05-22-2024 Calcium [...] 05-22-2024 Magnesium [Mass/Vol] 2.1 mg/dL Normal 1.8-2.4 [facility] Comment on above: Performed By: #### A COLLIN, GFR, CMP, PBNP, CBC, TSH, ADIFF #### [address] [address] .Auto Diffon 05-21-2024 Basophil, Absolute 0.1 10 3/mcL Normal 0.0-0.2 [facility] Comment on above: Performed By: #### M DW, MG, GFR, BMP, CBC, ANEU, TROPHS, ADIFF #### [address] [address] Basophils/100 WBC (Bld) 0.8 % Normal 0.0-2.5 [facility] Comment on above: Performed By: #### M DW, MG, GFR, BMP, CBC, ANEU, TROPHS, ADIFF #### [address] [address] Eosinophil, Absolute 0.2 10 3/mcL Normal 0.0-0.7 [facility] Comment on above: Performed By: #### M DW, MG, GFR, BMP, CBC, ANEU, TROPHS, ADIFF #### [address] [address] Eosinophils/100 WBC (Bld) 2.3 % Normal 0.0-7.0 [facility] Comment on above: Performed By: #### M DW, MG, GFR, BMP, CBC, ANEU, TROPHS, ADIFF #### [address] [address] Lymphocyte, Absolute 1.1 10 3/mcL Normal 0.9-4.3 [facility] Comment on above: Performed By: #### M DW, MG, GFR, BMP, CBC, ANEU, TROPHS, ADIFF #### [address] [address] Lymphocytes/100 WBC (Bld) 10.9 % Low 20.0-40.0 [facility] Comment on above: Performed By: #### M DW, MG, GFR, BMP, CBC, ANEU, TROPHS, ADIFF #### [address] [address] Monocyte, Absolute 0.9 10 3/mcL Normal 0.1-1.4 [facility] Comment on above: Performed By: #### M DW, MG, GFR, BMP, CBC, ANEU, TROPHS, ADIFF #### [address] [address] Monocytes/100 WBC (Bld) 9.1 % Normal 2.0-13.0 [facility] Comment on above: Performed By: #### M DW, MG, GFR, BMP, CBC, ANEU, TROPHS, ADIFF #### [address] [address] Neutrophils/100 WBC (Bld) 76.9 % High 50.0-75.0 [facility] Comment on above: Performed By: #### M DW, MG, GFR, BMP, CBC, ANEU, TROPHS, ADIFF #### [address] [address] .GFRon 05-21-2024 Estimated Glomerular Filtration Rate 37 ml/min/1.73sqm Normal [facility] Comment on above: Result Comment: Stages [...] GFR, BMP, CBC, ANEU, TROPHS, ADIFF #### [address] [address] .NEUABSon 05-21-2024 Neutrophil, Absolute 7.6 10 3/mcL Normal 2.3-8.1 [facility] Comment on above: Performed By: #### M DW, MG, GFR, BMP, CBC, ANEU, TROPHS, ADIFF #### [address] [address] BMPon 05-21-2024 BUN/Creatinine Ratio 21 ratio Normal 7-27 [facility] Comment on above: Performed By: #### M DW, MG, GFR, BMP, CBC, ANEU, TROPHS, ADIFF #### [address] [address] Calcium [Mass/Vol] 9.5 mg/dL Normal 8.4-10.2 [facility] Comment on above: Performed By: #### M DW, MG, GFR, BMP, CBC, ANEU, TROPHS, ADIFF #### [address] [address] Chloride [Moles/Vol] 97 mmol/L Low 98-107 [facility] Comment on above: Performed By: #### M DW, MG, GFR, BMP, CBC, ANEU, TROPHS, ADIFF #### [address] [address] CO2 [Moles/Vol] 37 mmol/L High 23-31 [facility] Comment on above: Performed By: #### M DW, MG, GFR, BMP, CBC, ANEU, TROPHS, ADIFF #### [address] [address] Creatinine [Mass/Vol] 1.41 mg/dL High 0.55-1.02 [facility] Comment on above: Result Comment: Test ing performed on Siemens Dimension EXL analyzer using a modified kinetic Josse technique. Performed By: #### M DW, MG, GFR, BMP, CBC, ANEU, TROPHS, ADIFF #### [address] [address] Electrolyte Balance 2.0 mEq/L Low 4.0-15.0 [facility] Comment on above: Performed By: #### M DW, MG, GFR, BMP, CBC, ANEU, TROPHS, ADIFF #### [address] [address] Glucose [Mass/Vol] 97 mg/dL Normal 83-110 [facility] Comment on above: Performed By: #### M DW, MG, GFR, BMP, CBC, ANEU, TROPHS, ADIFF #### [address] [address] Potassium [Moles/Vol] 4.2 mmol/L Normal 3.5-5.1 [facility] Comment on above: Performed By: #### M DW, MG, GFR, BMP, CBC, ANEU, TROPHS, ADIFF #### [address] [address] Sodium [Moles/Vol] 136 mmol/L Normal 136-145 [facility] Comment on above: Performed By: #### M DW, MG, GFR, BMP, CBC, ANEU, TROPHS, ADIFF #### [address] [address] Urea nitrogen [Mass/Vol] 29 mg/dL High 7-18 [facility] Comment on above: Performed By: #### M DW, MG, GFR, BMP, CBC, ANEU, TROPHS, ADIFF #### [address] [address] CBCon 05-21-2024 Erythrocyte distribution width (RBC) [Ratio] 13.5 % Normal 11.5-15.5 [facility] Comment on above: Performed By: #### M DW, MG, GFR, BMP, CBC, ANEU, TROPHS, ADIFF #### [address] [address] Hematocrit (Bld) [Volume fraction] 41.8 % Normal 34.0-46.0 [facility] Comment on above: Performed By: #### M DW, MG, GFR, BMP, CBC, ANEU, TROPHS, ADIFF #### [address] [address] Hgb 14.5 G/dL Normal 12.0-16.0 [facility] Comment on above: Performed By: #### M DW, MG, GFR, BMP, CBC, ANEU, TROPHS, ADIFF #### [address] [address] MCH (RBC) [Entitic mass] 30.2 pg Normal 27.0-33.0 [facility] Comment on above: Performed By: #### M DW, MG, GFR, BMP, CBC, ANEU, TROPHS, ADIFF #### [address] [address] MCHC 34.6 G/dL Normal 32.0-36.0 [facility] Comment on above: Performed By: #### M DW, MG, GFR, BMP, CBC, ANEU, TROPHS, ADIFF #### [address] [address] MCV (RBC) [Entitic vol] 87.2 fL Normal 80.0-99.0 [facility] Comment on above: Performed By: #### M DW, MG, GFR, BMP, CBC, ANEU, TROPHS, ADIFF #### [address] [address] Platelet 270 10 3/mcL Normal 150-450 [facility] Comment on above: Performed By: #### M DW, MG, GFR, BMP, CBC, ANEU, TROPHS, ADIFF #### [address] [address] Platelet mean volume (Bld) [Entitic vol] 8.6 fL Normal 6.6-10.5 [facility] Comment on above: Performed By: #### M DW, MG, GFR, BMP, CBC, ANEU, TROPHS, ADIFF #### [address] [address] RBC 4.79 10 6/mcL Normal 4.10-5.30 [facility] Comment on above: Performed By: #### M DW, MG, GFR, BMP, CBC, ANEU, TROPHS, ADIFF #### [address] [address] WBC 10.0 10 3/mcL Normal 4.5-10.8 [facility] Comment on above: Performed By: #### M DW, MG, GFR, BMP, CBC, ANEU, TROPHS, ADIFF #### [facility] [address] [place], [place] [address] LABORATORYOrdered By: SYSTEM SYSTEM on 05-21-2024 Basophils [...] above: Interpretive Data: T esting performed on [employer] Dimension EXL analyzer using a modified kinetic [...] Workflow SS Natriuretic peptide.B prohormone N-Terminal [Mass/Vol] [address] pg/mL High 0 - 450 pg/mL AO [...] 05-21-2024 Magnesium [Mass/Vol] 2.0 mg/dL Normal 1.8-2.4 [facility] Comment on above: Performed By: #### M DW, MG, GFR, BMP, CBC, ANEU, TROPHS, ADIFF #### [address] [address] PBNPon 05-21-2024 Natriuretic peptide B (Bld) [Mass/Vol] [address] pg/mL High 0-450 [facility] Comment on above: Result Comment: NT-p roBNP results of less than 300 pg/mL effectively rules out acute congestive heart failure with 99% negative predictive value. Performed By: #### M DW, MG, GFR, BMP, CBC, ANEU, TROPHS, ADIFF #### [address] [address] .Auto Diffon 05-20-2024 Basophil, Absolute 0.2 10 3/mcL Normal 0.0-0.2 [facility] Comment on above: Performed By: #### M DW, MG, GFR, BMP, CBC, ANEU, TROPHS, ADIFF #### [address] [address] Basophils/100 WBC (Bld) 1.3 % Normal 0.0-2.5 [facility] Comment on above: Performed By: #### M DW, MG, GFR, BMP, CBC, ANEU, TROPHS, ADIFF #### [address] [address] Eosinophil, Absolute 0.5 10 3/mcL Normal 0.0-0.7 [facility] Comment on above: Performed By: #### M DW, MG, GFR, BMP, CBC, ANEU, TROPHS, ADIFF #### [address] [address] Eosinophils/100 WBC (Bld) 3.5 % Normal 0.0-7.0 [facility] Comment on above: Performed By: #### M DW, MG, GFR, BMP, CBC, ANEU, TROPHS, ADIFF #### [address] [address] Lymphocyte, Absolute 1.7 10 3/mcL Normal 0.9-4.3 [facility] Comment on above: Performed By: #### M DW, MG, GFR, BMP, CBC, ANEU, TROPHS, ADIFF #### [address] [address] Lymphocytes/100 WBC (Bld) 11.9 % Low 20.0-40.0 [facility] Comment on above: Performed By: #### M DW, MG, GFR, BMP, CBC, ANEU, TROPHS, ADIFF #### [address] [address] Monocyte, Absolute 1.4 10 3/mcL Normal 0.1-1.4 [facility] Comment on above: Performed By: #### M DW, MG, GFR, BMP, CBC, ANEU, TROPHS, ADIFF #### [address] [address] Monocytes/100 WBC (Bld) 10.0 % Normal 2.0-13.0 [facility] Comment on above: Performed By: #### M DW, MG, GFR, BMP, CBC, ANEU, TROPHS, ADIFF #### [address] [address] Neutrophils/100 WBC (Bld) 73.3 % Normal 50.0-75.0 [facility] Comment on above: Performed By: #### M DW, MG, GFR, BMP, CBC, ANEU, TROPHS, ADIFF #### [address] [address] .GFRon 05-20-2024 Estimated Glomerular Filtration Rate 44 ml/min/1.73sqm [facility] Comment on above: Result Comment: Stages [...] GFR, CMP, PBNP, CBC, TSH, ADIFF #### [address] [address] Estimated Glomerular Filtration Rate 47 ml/min/1.73sqm Normal [facility] Comment on above: Result Comment: Stages [...] GFR, BMP, CBC, ANEU, TROPHS, ADIFF #### [address] [address] .NEUABSon 05-20-2024 Neutrophil, Absolute 10.2 10 3/mcL High 2.3-8.1 [facility] Comment on above: Performed By: #### M DW, MG, GFR, BMP, CBC, ANEU, TROPHS, ADIFF #### [address] [address] BMPon 05-20-2024 BUN/Creatinine Ratio 22 ratio Normal 7-27 [facility] Comment on above: Performed By: #### A COLLIN, GFR, CMP, PBNP, CBC, TSH, ADIFF #### [address] [address] Calcium [Mass/Vol] 9.5 mg/dL Normal 8.4-10.2 [facility] Comment on above: Performed By: #### A COLLIN, GFR, CMP, PBNP, CBC, TSH, ADIFF #### [address] [address] Chloride [Moles/Vol] 99 mmol/L Normal 98-107 [facility] Comment on above: Performed By: #### A COLLIN, GFR, CMP, PBNP, CBC, TSH, ADIFF #### [address] [address] CO2 [Moles/Vol] 35 mmol/L High 23-31 [facility] Comment on above: Performed By: #### A COLLIN, GFR, CMP, PBNP, CBC, TSH, ADIFF #### [address] [address] Creatinine [Mass/Vol] 1.23 mg/dL High 0.55-1.02 [facility] Comment on above: Result Comment: Test ing performed on Siemens Dimension EXL analyzer using a modified kinetic Josse technique. Performed By: #### A COLLIN, GFR, CMP, PBNP, CBC, TSH, ADIFF #### [address] [address] Electrolyte Balance 4.0 mEq/L Normal 4.0-15.0 [facility] Comment on above: Performed By: #### A COLLIN, GFR, CMP, PBNP, CBC, TSH, ADIFF #### [address] [address] Glucose [Mass/Vol] 93 mg/dL Normal 83-110 [facility] Comment on above: Performed By: #### A COLLIN, GFR, CMP, PBNP, CBC, TSH, ADIFF #### [address] [address] Potassium [Moles/Vol] 4.4 mmol/L Normal 3.5-5.1 [facility] Comment on above: Performed By: #### A COLLIN, GFR, CMP, PBNP, CBC, TSH, ADIFF #### [address] [address] Sodium [Moles/Vol] 138 mmol/L Normal 136-145 [facility] Comment on above: Performed By: #### A COLLIN, GFR, CMP, PBNP, CBC, TSH, ADIFF #### [address] [address] Urea nitrogen [Mass/Vol] 27 mg/dL High 7-18 [facility] Comment on above: Performed By: #### A COLLIN, GFR, CMP, PBNP, CBC, TSH, ADIFF #### [address] [address] BUN/Creatinine Ratio 24 ratio Normal 7-27 [facility] Comment on above: Performed By: #### M DW, MG, GFR, BMP, CBC, ANEU, TROPHS, ADIFF #### [address] [address] Calcium [Mass/Vol] 9.6 mg/dL Normal 8.4-10.2 [facility] Comment on above: Performed By: #### M DW, MG, GFR, BMP, CBC, ANEU, TROPHS, ADIFF #### [address] [address] Chloride [Moles/Vol] 98 mmol/L Normal 98-107 [facility] Comment on above: Performed By: #### M DW, MG, GFR, BMP, CBC, ANEU, TROPHS, ADIFF #### [address] [address] CO2 [Moles/Vol] 30 mmol/L Normal 23-31 [facility] Comment on above: Performed By: #### M DW, MG, GFR, BMP, CBC, ANEU, TROPHS, ADIFF #### [address] [address] Creatinine [Mass/Vol] 1.16 mg/dL High 0.55-1.02 [facility] Comment on above: Result Comment: Test ing performed on Siemens Dimension EXL analyzer using a modified kinetic Josse technique. Performed By: #### M DW, MG, GFR, BMP, CBC, ANEU, TROPHS, ADIFF #### [address] [address] Electrolyte Balance 8.0 mEq/L Normal 4.0-15.0 [facility] Comment on above: Performed By: #### M DW, MG, GFR, BMP, CBC, ANEU, TROPHS, ADIFF #### [address] [address] Glucose [Mass/Vol] 198 mg/dL High 83-110 [facility] Comment on above: Performed By: #### M DW, MG, GFR, BMP, CBC, ANEU, TROPHS, ADIFF #### [address] [address] Potassium [Moles/Vol] 4.3 mmol/L Normal 3.5-5.1 [facility] Comment on above: Performed By: #### M DW, MG, GFR, BMP, CBC, ANEU, TROPHS, ADIFF #### [address] [address] Sodium [Moles/Vol] 136 mmol/L Normal 136-145 [facility] Comment on above: Performed By: #### M DW, MG, GFR, BMP, CBC, ANEU, TROPHS, ADIFF #### [address] [address] Urea nitrogen [Mass/Vol] 28 mg/dL High 7-18 [facility] Comment on above: Performed By: #### M DW, MG, GFR, BMP, CBC, ANEU, TROPHS, ADIFF #### [address] [address] CBCon 05-20-2024 Erythrocyte distribution width (RBC) [Ratio] 13.5 % Normal 11.5-15.5 [facility] Comment on above: Performed By: #### M DW, MG, GFR, BMP, CBC, ANEU, TROPHS, ADIFF #### [address] [address] Hematocrit (Bld) [Volume fraction] 44.3 % Normal 34.0-46.0 [facility] Comment on above: Performed By: #### M DW, MG, GFR, BMP, CBC, ANEU, TROPHS, ADIFF #### [address] [address] Hgb 14.9 G/dL Normal 12.0-16.0 [facility] Comment on above: Performed By: #### M DW, MG, GFR, BMP, CBC, ANEU, TROPHS, ADIFF #### [address] [address] MCH (RBC) [Entitic mass] 30.0 pg Normal 27.0-33.0 [facility] Comment on above: Performed By: #### M DW, MG, GFR, BMP, CBC, ANEU, TROPHS, ADIFF #### [address] [address] MCHC 33.7 G/dL Normal 32.0-36.0 [facility] Comment on above: Performed By: #### M DW, MG, GFR, BMP, CBC, ANEU, TROPHS, ADIFF #### [address] [address] MCV (RBC) [Entitic vol] 88.9 fL Normal 80.0-99.0 [facility] Comment on above: Performed By: #### M DW, MG, GFR, BMP, CBC, ANEU, TROPHS, ADIFF #### [address] [address] Platelet 342 10 3/mcL Normal 150-450 [facility] Comment on above: Performed By: #### M DW, MG, GFR, BMP, CBC, ANEU, TROPHS, ADIFF #### [place] [address] Platelet mean volume (Bld) [Entitic vol] 8.0 fL Normal 6.6-10.5 [facility] Comment on above: Performed By: #### M DW, MG, GFR, BMP, CBC, ANEU, TROPHS, ADIFF #### [place] [address] RBC 4.98 10 6/mcL Normal 4.10-5.30 [facility] Comment on above: Performed By: #### M DW, MG, GFR, BMP, CBC, ANEU, TROPHS, ADIFF #### [place] [address] WBC 14.0 10 3/mcL High 4.5-10.8 [facility] Comment on above: Performed By: #### M DW, MG, GFR, BMP, CBC, ANEU, TROPHS, ADIFF #### [place] [address] LABORATORYOrdered By: SYSTEM SYSTEM on 05-20-2024 Troponin I.cardiac DL <= 0.01 ng/mL [Mass/Vol] 141 ng/L High 0 - 51 ng/L AO ADM SS Comment on above: Interpretive Data: H igh Sensitive Troponin I Reference Ranges: Female: 0-51 ng/L Male: 0-76 ng/L Testing performed on [employer] using a homogeneous sandwich chemiluminescent immunoassay based on Aura XM technology. Basophils (Bld) [#/Vol] 0.2 103/mcL Normal [...] Workflow SS Natriuretic peptide.B prohormone N-Terminal [Mass/Vol] 26595 pg/mL High 0 - 450 pg/mL AO [...] ng/L Male: 0-76 ng/L Testing performed on [employer] using a homogeneous sandwich chemiluminescent immunoassay based on Aura XM technology. Urea nitrogen [Mass/Vol] 28 mg/dL High 7 - 18 mg/dL AO ADM SS Urea nitrogen/Creatinine [Mass ratio] 24 ratio Normal 7 - 27 ratio AO ADM SS WBC (Bld) [#/Vol] 14.0 103/mcL High 4.5 - 10.8 10^3/mcL AO Workflow SS MGon 05-20-2024 Magnesium [Mass/Vol] 2.0 mg/dL Normal 1.8-2.4 [facility] Comment on above: Performed By: #### A COLLIN, GFR, CMP, PBNP, CBC, TSH, ADIFF #### [address] [address] Magnesium [Mass/Vol] 2.0 mg/dL Normal 1.8-2.4 [facility] Comment on above: Performed By: #### M DW, MG, GFR, BMP, CBC, ANEU, TROPHS, ADIFF #### [address] [address] PBNPon 05-20-2024 Natriuretic peptide B (Bld) [Mass/Vol] 13690 pg/mL High 0-450 [facility] Comment on above: Result Comment: NT-p roBNP results of less than 300 pg/mL effectively rules out acute congestive heart failure with 99% negative predictive value. Performed By: #### M DW, MG, GFR, BMP, CBC, ANEU, TROPHS, ADIFF #### [place] [address] TROPHSon 05-20-2024 High Sensitivity Troponin I 141 ng/L [facility] [address] Comment on above: Result Comment: High Sensitive Troponin I Reference Ranges: Female: 0-51 ng/L Male: 0-76 ng/L Testing performed on [facility] [employer] using a homogeneous sandwich chemiluminescent immunoassay based on Aura XM technology. Performed By: #### M DW, MG, GFR, BMP, CBC, ANEU, TROPHS, ADIFF #### [address] [address] High Sensitivity Troponin I 141 ng/L High [address] Comment on above: Result Comment: High Sensitive Troponin I Reference Ranges: Female: 0-51 ng/L Male: 0-76 ng/L Testing performed on Dimension EXL using a homogeneous sandwich chemiluminescent immunoassay based on Aura XM technology. Performed By: #### M DW, MG, GFR, BMP, CBC, ANEU, TROPHS, ADIFF #### [place] [address] XR CHEST 1 VIEWon 05-20-2024 XR CHEST [...] 05/20/2024 12:11:45 AM Ordering Provider: VINCENT Mercado [facility] .Auto Diffon 05-18-2024 Basophil, Absolute 0.1 10 3/mcL Normal 0.0-0.3 [facility] Comment on above: Performed By: #### G , BMP #### [address] [address] Basophils/100 WBC (Bld) 0.6 % Normal 0.0-2.5 [facility] Comment on above: Performed By: #### G , BMP #### [address] [address] Eosinophil, Absolute 0.4 10 3/mcL Normal 0.0-0.7 [facility] Comment on above: Performed By: #### G FR, BMP #### [address] [address] Eosinophils/100 WBC (Bld) 3.6 % Normal 0.0-6.0 [facility] Comment on above: Performed By: #### G FR, BMP #### [address] [address] Lymphocyte, Absolute 1.0 10 3/mcL Normal 0.9-4.3 [facility] Comment on above: Performed By: #### G FR, BMP #### [facility] [address] [place] [address] Lymphocytes/100 WBC (Bld) 10.5 % Low 20.0-40.0 [facility] Comment on above: Performed By: #### G , BMP #### [facility] [address] [place] [address] Monocyte, Absolute 1.1 10 3/mcL Normal 0.1-1.4 [facility] Comment on above: Performed By: #### G , BMP #### [address] [address] Monocytes/100 WBC (Bld) 11.1 % Normal 2.0-13.0 [facility] Comment on above: Performed By: #### G , BMP #### [address] [address] Neutrophils/100 WBC (Bld) 74.2 % Normal 50.0-75.0 [facility] Comment on above: Performed By: #### G , BMP #### [address] [address] .GFRon 05-18-2024 Estimated Glomerular Filtration Rate 42 ml/min/1.73sqm Normal [facility] Comment on above: Result Comment: Stages [...] Performed By: #### G , BMP #### [address] [address] .NEUABSon 05-18-2024 Neutrophil, Absolute 7.3 10 3/mcL Normal 2.3-8.1 [facility] Comment on above: Performed By: #### G , BMP #### [address] [address] APTTon 05-18-2024 aPTT Coag (Bld) [Time] 52.8 s High 25.0-35.0 [facility] Comment on above: Result Comment: For Heparin anticoagulation therapy, the recommended therapeutic range is: 54-77 seconds (APTT Correlation with Anti-Xa therapeutic range of 0.3-0.7 units/ml). PLEASE REFERENCE THE PHARMACY PROTOCOL FOR DOSING. Performed By: #### G FR, BMP #### [address] 05-18-2024 BUN/Creatinine Ratio 20.9 ratio Normal 10.0-22.0 [facility] Comment on above: Performed By: #### G FR, BMP #### [place] [address] Calcium [Mass/Vol] 9.7 mg/dL Normal 8.7-10.4 [facility] Comment on above: Performed By: #### G FR, BMP #### [place] [address] Chloride [Moles/Vol] 94 mmol/L Low 98-110 [facility] Comment on above: Performed By: #### G FR, BMP #### [place] [address] CO2 [Moles/Vol] 34 mmol/L High 22-32 [facility] Comment on above: Performed By: #### G FR, BMP #### [place] [address] Creatinine [Mass/Vol] 1.29 mg/dL High 0.50-1.20 [facility] MA[facility] Comment on above: Result Comment: Test ing performed on Cinegif analyzer using enzymatic creatinine methodology. Performed By: #### G FR, BMP #### [place] [address] Electrolyte Balance 7.0 mEq/L Normal 4.0-15.0 [facility] Comment on above: Performed By: #### G FR, BMP #### [place] [address] Glucose [Mass/Vol] 95 mg/dL Normal 82-115 [facility] Comment on above: Performed By: #### G , BMP #### [place] [id number] Potassium [Moles/Vol] 3.8 mmol/L Normal 3.5-5.0 [facility] Comment on above: Performed By: #### G FR, BMP #### [place] [id number] Sodium [Moles/Vol] 135 mmol/L Low 136-145 [facility] Comment on above: Performed By: #### G , BMP #### [place] [id number] Urea nitrogen [Mass/Vol] 27.0 mg/dL High 8.0-22.0 [facility] Comment on above: Performed By: #### Ed WAGNER, BMP #### [place] [address] CBCon 05-18-2024 Erythrocyte distribution width (RBC) [Ratio] 13.2 % Normal 11.5-15.5 [facility] Comment on above: Performed By: #### G , BMP #### [place] [id number] Hematocrit (Bld) [Volume fraction] 41.3 % Normal 34.0-46.0 [facility] Comment on above: Performed By: #### G FR, BMP #### [place] [address] Hgb 14.4 G/dL Normal 12.0-16.0 [facility] Comment on above: Performed By: #### G FR, BMP #### [place] [id number] MCH (RBC) [Entitic mass] 30.4 pg Normal 27.0-33.0 [facility] Comment on above: Performed By: #### G FR, BMP #### [place] [id number] MCHC 34.7 G/dL Normal 32.0-36.0 [facility] Comment on above: Performed By: #### G FR, BMP #### [place] [id number] MCV (RBC) [Entitic vol] 87.5 fL Normal 80.0-99.0 [facility] Comment on above: Performed By: #### G FR, BMP #### [place] [address] Platelet 273 10 3/mcL Normal 150-450 [facility] Comment on above: Performed By: #### G FR, BMP #### [place] [address] Platelet mean volume (Bld) [Entitic vol] 8.3 fL Normal 6.6-10.5 [facility] Comment on above: Performed By: #### Ed FR, BMP #### [place] [address] RBC 4.73 10 6/mcL Normal 4.10-5.30 [facility] Comment on above: Performed By: #### Ed , BMP #### [place] [address] WBC 9.9 10 3/mcL Normal 4.5-10.8 [facility] Comment on above: Performed By: #### Ed , BMP #### [place] [address] HFPon 05-18-2024 Bili Indirect 0.4 mg/dL Normal 0.1-10.0 [facility] Comment on above: Performed By: #### Ed FR, BMP #### [place] [address] Albumin Level 3.2 G/dL Normal 3.2-4.8 [facility] Comment on above: Performed By: #### Ed FR, BMP #### [place] [id number] Albumin/Globulin [Mass ratio] 1.3 {ratio} Normal 0.9-1.6 [facility] Comment on above: Performed By: #### Ed FR, BMP #### [place] [address] ALP [Catalytic activity/Vol] 84 U/L Normal 38-126 [facility] Comment on above: Performed By: #### Ed , BMP #### [place] [address] ALT [Catalytic activity/Vol] 15 U/L Normal 10-49 [facility] Comment on above: Performed By: #### G FR, BMP #### [place] [address] AST [Catalytic activity/Vol] 14 U/L Normal 8-34 [facility] Comment on above: Performed By: #### Ed , BMP #### [place] [address] Bili Direct 0.2 mg/dL Normal 0.0-0.4 [facility] Comment on above: Result Comment: Use of this assay is not recommended for patients undergoing treatment with eltrombopag due to the potential for falsely elevated results. Performed By: #### Ed , BMP #### [place] [address] Bili Total 0.60 mg/dL Normal 0.20-1.20 [facility] Comment on above: Result Comment: Use of this assay is not recommended for patients undergoing treatment with eltrombopag due to the potential for falsely elevated results. Performed By: #### Ed , BMP #### [place] [address] Globulin 2.4 G/dL Normal 1.5-3.8 [facility] Comment on above: Performed By: #### Ed , BMP #### [place] [address] Total Protein 5.6 G/dL Low 5.7-8.2 [facility] Comment on above: Performed By: #### Ed , BMP #### [place] [address] LABORATORYOrdered By: SYSTEM SYSTEM on 05-18-2024 Albumin [...] above: Interpretive Data: T esting performed on Cinegif analyzer using enzymatic creatinine methodology. Electrolyte Balance [...] 05-18-2024 Magnesium [Mass/Vol] 1.9 mg/dL Normal 1.6-2.4 [facility] Comment on above: Performed By: #### G FR, BMP #### [address] [address] .Auto Diffon 05-17-2024 Basophil, Absolute 0.1 10 3/mcL Normal 0.0-0.3 [facility] Comment on above: Performed By: #### A COLLIN, MG, BMP, ADIFF, GFR, CBC, HFP #### [address] [address] Eosinophil, Absolute 0.4 10 3/mcL Normal 0.0-0.7 [facility] Comment on above: Performed By: #### A COLLIN, MG, BMP, ADIFF, GFR, CBC, HFP #### [address] [address] Lymphocyte, Absolute 1.0 10 3/mcL Normal 0.9-4.3 [facility] Comment on above: Performed By: #### A COLLIN, MG, BMP, ADIFF, GFR, CBC, HFP #### [address] [address] Monocyte, Absolute 1.1 10 3/mcL Normal 0.1-1.4 [facility] Comment on above: Performed By: #### A COLLIN, MG, BMP, ADIFF, GFR, CBC, HFP #### [address] [address] .Auto DiffOrdered By: SYSTEM SYSTEM on 05-17-2024 Basophils/100 WBC (Bld) 0.5 % Normal 0.0-2.5 AH Workflow SS Comment on above: Performed By: #### A COLLIN, MG, BMP, ADIFF, GFR, CBC, HFP #### [address] [address] Eosinophils/100 WBC (Bld) 3.6 % Normal 0.0-6.0 [facility] Workflow SS Comment on above: Performed By: #### A COLLIN, MG, BMP, ADIFF, GFR, CBC, HFP #### [address] [address] Lymphocytes/100 WBC (Bld) 8.9 % Low 20.0-40.0 [facility] Workflow SS Comment on above: Performed By: #### A COLLIN, MG, BMP, ADIFF, GFR, CBC, HFP #### [address] [address] Monocytes/100 WBC (Bld) 9.9 % Normal 2.0-13.0 [facility] Workflow SS Comment on above: Performed By: #### A COLLIN, MG, BMP, ADIFF, GFR, CBC, HFP #### [address] [address] Neutrophils/100 WBC (Bld) 77.1 % High 50.0-75.0 Workflow SS Comment on above: Performed By: #### A COLLIN, MG, BMP, ADIFF, GFR, CBC, HFP #### [address] [address] .GFROrdered By: RAMY Rodriguez on 05-17-2024 Estimated [...] MG, BMP, ADIFF, GFR, CBC, HFP #### [address] [address] .NEUABSon 05-17-2024 Neutrophil, Absolute 8.8 10 3/mcL High 2.3-8.1 [facility] MA[facility] Comment on above: Performed By: #### A COLLIN, MG, BMP, ADIFF, GFR, CBC, HFP #### [address] [address] APTTOrdered By: SYSTEM CompressusE Seemage on 05-17-2024 aPTT Coag (Bld) [Time] 54.9 [...] MG, BMP, ADIFF, GFR, CBC, HFP #### [place] [address] BMPon 05-17-2024 BUN/Creatinine Ratio 20.9 ratio Normal 10.0-22.0 [facility] Comment on above: Performed By: #### A COLLIN, MG, BMP, ADIFF, GFR, CBC, HFP #### [place] [address] BMPOrdered By: Laiyaoyao on 05-17-2024 Calcium [Mass/Vol] 9.9 mg/dL Normal 8.7-10.4 AH ADM SS Comment on above: Performed By: #### A COLLIN, MG, BMP, ADIFF, GFR, CBC, HFP #### [place] [address] Chloride [Moles/Vol] 89 mmol/L Low 98-110 AH A DM SS Comment on above: Performed By: #### A COLLIN, MG, BMP, ADIFF, GFR, CBC, HFP #### [place] [address] CO2 [Moles/Vol] 37 mmol/L High 22-32 AH ADM SS Comment on above: Performed By: #### A COLLIN, MG, BMP, ADIFF, GFR, CBC, HFP #### [place] [address] Creatinine [Mass/Vol] 1.15 mg/dL Normal 0.50-1.20 AH ADM SS Comment on above: Interpretive Data: T esting performed on [employer] CH analyzer using enzymatic creatinine methodology. Result Comment: Test ing performed on [employer] CH analyzer using enzymatic creatinine methodology. Performed By: #### A COLLIN, MG, BMP, ADIFF, GFR, CBC, HFP #### [address] [address] Electrolyte Balance 6.0 mEq/L Normal 4.0-15.0 AD M SS Comment on above: Performed By: #### A COLLIN, MG, BMP, ADIFF, GFR, CBC, HFP #### [place] [id number] Glucose [Mass/Vol] 99 mg/dL Normal 82-115 ADM SS Comment on above: Performed By: #### A COLLIN, MG, BMP, ADIFF, GFR, CBC, HFP #### [place] [address] Potassium [Moles/Vol] 3.8 mmol/L Normal 3.5-5.0 ADM SS Comment on above: Performed By: #### A COLLIN, MG, BMP, ADIFF, GFR, CBC, HFP #### [place] [id number] Sodium [Moles/Vol] 132 mmol/L Low 136-145 ADM SS Comment on above: Performed By: #### A COLLIN, MG, BMP, ADIFF, GFR, CBC, HFP #### [place] [id number] Urea nitrogen [Mass/Vol] 24.0 mg/dL High 8.0-22.0 ADM SS Comment on above: Performed By: #### A COLLIN, MG, BMP, ADIFF, GFR, CBC, HFP #### [address] [address] CBCOrdered By: SYSTEM SYSTEM on 05-17-2024 Erythrocyte distribution width (RBC) [Ratio] 13.0 % Normal 11.5-15.5 Workflow SS Comment on above: Performed By: #### A COLLIN, MG, BMP, ADIFF, GFR, CBC, HFP #### [place] [id number] Hematocrit (Bld) [Volume fraction] 44.2 % Normal 34.0-46.0 AH Workflow SS Comment on above: Performed By: #### A COLLIN, MG, BMP, ADIFF, GFR, CBC, HFP #### [place] [id number] MCH (RBC) [Entitic mass] 29.8 pg Normal 27.0-33.0 AH Workflow SS Comment on above: Performed By: #### A COLLIN, MG, BMP, ADIFF, GFR, CBC, HFP #### [place] [id number] MCHC 34.2 G/dL Normal 32.0-36.0 AH Workflow SS Comment on above: Performed By: #### A COLLIN, MG, BMP, ADIFF, GFR, CBC, HFP #### [place] [address] MCV (RBC) [Entitic vol] 87.2 fL Normal 80.0-99.0 AH Workflow SS Comment on above: Performed By: #### A COLLIN, MG, BMP, ADIFF, GFR, CBC, HFP #### [place] [address] Platelet mean volume (Bld) [Entitic vol] 8.2 fL Normal 6.6-10.5 AH Workflow SS Comment on above: Performed By: #### A COLLIN, MG, BMP, ADIFF, GFR, CBC, HFP #### [address] [address] CBCon 05-17-2024 Hgb 15.1 G/dL Normal 12.0-16.0 [facility] Comment on above: Performed By: #### A COLLIN, MG, BMP, ADIFF, GFR, CBC, HFP #### [place] [id number] Platelet 283 10 3/mcL Normal 150-450 [facility] MA[facility] Comment on above: Performed By: #### A COLLIN, MG, BMP, ADIFF, GFR, CBC, HFP #### [place] [address] RBC 5.07 10 6/mcL Normal 4.10-5.30 [facility] Comment on above: Performed By: #### A COLLIN, MG, BMP, ADIFF, GFR, CBC, HFP #### [place] [address] WBC 11.4 10 3/mcL High 4.5-10.8 [facility] Comment on above: Performed By: #### A COLLIN, MG, BMP, ADIFF, GFR, CBC, HFP #### [place] [address] HFPOrdered By: SYSTEM SYSTEM on 05-17-2024 Bili Indirect 0.4 mg/dL Normal 0.1-10.0 AH Chemistr y S Comment on above: Performed By: #### A COLLIN, MG, BMP, ADIFF, GFR, CBC, HFP #### [place] [address] Albumin/Globulin [Mass ratio] 1.3 {ratio} Normal 0.9-1.6 AH ADM SS Comment on above: Performed By: #### A COLLIN, MG, BMP, ADIFF, GFR, CBC, HFP #### [place] [address] ALP [Catalytic activity/Vol] 95 U/L Normal 38-126 AH ADM SS Comment on above: Performed By: #### A COLLIN, MG, BMP, ADIFF, GFR, CBC, HFP #### [place] [address] AST [Catalytic activity/Vol] 16 U/L Normal 8-34 AH ADM SS Comment on above: Performed By: #### A CLOLIN, MG, BMP, ADIFF, GFR, CBC, HFP #### [place] [address] Globulin 2.6 G/dL Normal 1.5-3.8 AH ADM SS Comment on above: Performed By: #### A COLLIN, MG, BMP, ADIFF, GFR, CBC, HFP #### [address] 05-17-2024 Albumin Level 3.3 G/dL Normal 3.2-4.8 [facility] MA[facility] Comment on above: Performed By: #### A COLLIN, MG, BMP, ADIFF, GFR, CBC, HFP #### [address] [address] ALT [Catalytic activity/Vol] 18 U/L Normal 10-49 [facility] Comment on above: Performed By: #### A COLLIN, MG, BMP, ADIFF, GFR, CBC, HFP #### [address] [address] Bili Direct 0.2 mg/dL Normal 0.0-0.4 [facility] MA[facility] Comment on above: Result Comment: Use of this assay is not recommended for patients undergoing treatment with eltrombopag due to the potential for falsely elevated results. Performed By: #### A COLLIN, MG, BMP, ADIFF, GFR, CBC, HFP #### [place] [address] Bili Total 0.60 mg/dL Normal 0.20-1.20 [facility] MA[facility] Comment on above: Result Comment: Use of this assay is not recommended for patients undergoing treatment with eltrombopag due to the potential for falsely elevated results. Performed By: #### A COLLIN, MG, BMP, ADIFF, GFR, CBC, HFP #### [place] [address] Total Protein 5.9 G/dL Normal 5.7-8.2 [facility] MA[facility] Comment on above: Performed By: #### A COLLIN, MG, BMP, ADIFF, GFR, CBC, HFP #### [place] [address] LABORATORYOrdered By: SYSTEM SYSTEM on 05-17-2024 Albumin [...] MG, BMP, ADIFF, GFR, CBC, HFP #### [address] [address] .Auto Diffon 05-16-2024 Basophil, Absolute 0.1 10 3/mcL Normal 0.0-0.3 [facility] MAIN Comment on above: Performed By: #### A COLLIN, MG, BMP, ADIFF, GFR, CBC, HFP #### [address] [address] Basophils/100 WBC (Bld) 0.9 % Normal 0.0-2.5 [facility] MA[facility] Comment on above: Performed By: #### A COLLIN, MG, BMP, ADIFF, GFR, CBC, HFP #### [address] [address] Eosinophil, Absolute 0.4 10 3/mcL Normal 0.0-0.7 [facility] MAIN Comment on above: Performed By: #### A COLLIN, MG, BMP, ADIFF, GFR, CBC, HFP #### [address] [address] Eosinophils/100 WBC (Bld) 3.6 % Normal 0.0-6.0 [facility] Comment on above: Performed By: #### A COLLIN, MG, BMP, ADIFF, GFR, CBC, HFP #### [address] [address] Lymphocyte, Absolute 1.0 10 3/mcL Normal 0.9-4.3 [facility] MAIN Comment on above: Performed By: #### A COLLIN, MG, BMP, ADIFF, GFR, CBC, HFP #### [address] [address] Lymphocytes/100 WBC (Bld) 9.8 % Low 20.0-40.0 [facility] Comment on above: Performed By: #### A COLLIN, MG, BMP, ADIFF, GFR, CBC, HFP #### [address] [address] Monocyte, Absolute 1.0 10 3/mcL Normal 0.1-1.4 [facility] Comment on above: Performed By: #### A COLLIN, MG, BMP, ADIFF, GFR, CBC, HFP #### [address] [address] Monocytes/100 WBC (Bld) 9.6 % Normal 2.0-13.0 [facility] Comment on above: Performed By: #### A COLLIN, MG, BMP, ADIFF, GFR, CBC, HFP #### [address] [address] Neutrophils/100 WBC (Bld) 76.1 % High 50.0-75.0 [facility] Comment on above: Performed By: #### A COLLIN, MG, BMP, ADIFF, GFR, CBC, HFP #### [address] [address] .GFRon 05-16-2024 Estimated Glomerular Filtration Rate 45 ml/min/1.73sqm Normal [facility] MAIN Comment on above: Result Comment: Stages [...] MG, BMP, ADIFF, GFR, CBC, HFP #### [address] [address] .NEUABSon 05-16-2024 Neutrophil, Absolute 7.8 10 3/mcL Normal 2.3-8.1 [facility] MAIN Comment on above: Performed By: #### A COLLIN, MG, BMP, ADIFF, GFR, CBC, HFP #### [place] [id number] APTTon 05-16-2024 aPTT Coag (Bld) [Time] 57.1 s High 25.0-35.0 [facility] MAIN Comment on above: Result Comment: For Heparin anticoagulation therapy, the recommended therapeutic range is: 54-77 seconds (APTT Correlation with Anti-Xa therapeutic range of 0.3-0.7 units/ml). PLEASE REFERENCE THE PHARMACY PROTOCOL FOR DOSING. Performed By: #### A COLLIN, MG, BMP, ADIFF, GFR, CBC, HFP #### [address] [address] BMPon 05-16-2024 BUN/Creatinine Ratio 18.9 ratio Normal 10.0-22.0 [facility] MAIN Comment on above: Performed By: #### A COLLIN, MG, BMP, ADIFF, GFR, CBC, HFP #### [address] [address] Calcium [Mass/Vol] 9.9 mg/dL Normal 8.7-10.4 [facility] MA[facility] Comment on above: Performed By: #### A COLLIN, MG, BMP, ADIFF, GFR, CBC, HFP #### [address] [address] Chloride [Moles/Vol] 91 mmol/L Low 98-110 [facility] Comment on above: Performed By: #### A COLLIN, MG, BMP, ADIFF, GFR, CBC, HFP #### [address] [address] CO2 [Moles/Vol] 38 mmol/L High 22-32 [facility] MA[facility] Comment on above: Performed By: #### A COLLIN, MG, BMP, ADIFF, GFR, CBC, HFP #### [address] [address] Creatinine [Mass/Vol] 1.22 mg/dL High 0.50-1.20 [facility] MAIN Comment on above: Result Comment: Test ing performed on [employer] analyzer using enzymatic creatinine methodology. Performed By: #### A COLLIN, MG, BMP, ADIFF, GFR, CBC, HFP #### [address] [address] Electrolyte Balance 8.0 mEq/L Normal 4.0-15.0 [facility]IN Comment on above: Performed By: #### A COLLIN, MG, BMP, ADIFF, GFR, CBC, HFP #### [address] [address] Glucose [Mass/Vol] 93 mg/dL Normal 82-115 [facility] Comment on above: Performed By: #### A COLLIN, MG, BMP, ADIFF, GFR, CBC, HFP #### [address] [address] Potassium [Moles/Vol] 3.9 mmol/L Normal 3.5-5.0 [facility] MAIN Comment on above: Performed By: #### A COLLIN, MG, BMP, ADIFF, GFR, CBC, HFP #### [place] [address] Sodium [Moles/Vol] 137 mmol/L Normal 136-145 [facility] Comment on above: Performed By: #### A COLLIN, MG, BMP, ADIFF, GFR, CBC, HFP #### [place] [address] Urea nitrogen [Mass/Vol] 23.0 mg/dL High 8.0-22.0 [facility] Comment on above: Performed By: #### A COLLIN, MG, BMP, ADIFF, GFR, CBC, HFP #### [place] [address] CBCon 05-16-2024 Erythrocyte distribution width (RBC) [Ratio] 13.3 % Normal 11.5-15.5 [facility] Comment on above: Performed By: #### A COLLIN, MG, BMP, ADIFF, GFR, CBC, HFP #### [place] [address] Hematocrit (Bld) [Volume fraction] 42.1 % Normal 34.0-46.0 [facility] Comment on above: Performed By: #### A COLLIN, MG, BMP, ADIFF, GFR, CBC, HFP #### [place] [id number] Hgb 14.5 G/dL Normal 12.0-16.0 [facility] MA[facility] Comment on above: Performed By: #### A COLLIN, MG, BMP, ADIFF, GFR, CBC, HFP #### [place] [address] MCH (RBC) [Entitic mass] 30.2 pg Normal 27.0-33.0 [facility] MA[facility] Comment on above: Performed By: #### A COLLIN, MG, BMP, ADIFF, GFR, CBC, HFP #### [place] [address] MCHC 34.5 G/dL Normal 32.0-36.0 [facility] MA[facility] Comment on above: Performed By: #### A COLLIN, MG, BMP, ADIFF, GFR, CBC, HFP #### [place] [address] MCV (RBC) [Entitic vol] 87.7 fL Normal 80.0-99.0 [facility] MAIN Comment on above: Performed By: #### A COLLIN, MG, BMP, ADIFF, GFR, CBC, HFP #### [place] [address] Platelet 275 10 3/mcL Normal 150-450 [facility] MA[facility] Comment on above: Performed By: #### A COLLIN, MG, BMP, ADIFF, GFR, CBC, HFP #### [place] [address] Platelet mean volume (Bld) [Entitic vol] 7.8 fL Normal 6.6-10.5 [facility] MAIN Comment on above: Performed By: #### A COLLIN, MG, BMP, ADIFF, GFR, CBC, HFP #### [place] [address] RBC 4.80 10 6/mcL Normal 4.10-5.30 [facility] MAIN Comment on above: Performed By: #### A COLLIN, MG, BMP, ADIFF, GFR, CBC, HFP #### [place] [address] WBC 10.2 10 3/mcL Normal 4.5-10.8 [facility] MA[facility] Comment on above: Performed By: #### A COLLIN, MG, BMP, ADIFF, GFR, CBC, HFP #### [address] [address] HFPon 05-16-2024 Bili Indirect 0.4 mg/dL Normal 0.1-10.0 [facility] MAIN Comment on above: Performed By: #### A COLLIN, MG, BMP, ADIFF, GFR, CBC, HFP #### [place] [address] Albumin Level 3.3 G/dL Normal 3.2-4.8 [facility] MAIN Comment on above: Performed By: #### A COLLIN, MG, BMP, ADIFF, GFR, CBC, HFP #### [place] [address] Albumin/Globulin [Mass ratio] 1.2 {ratio} Normal 0.9-1.6 [facility] MAIN Comment on above: Performed By: #### A COLLIN, MG, BMP, ADIFF, GFR, CBC, HFP #### [place] [address] ALP [Catalytic activity/Vol] 97 U/L Normal 38-126 [facility] MA[facility] Comment on above: Performed By: #### A COLLIN, MG, BMP, ADIFF, GFR, CBC, HFP #### [place] [address] ALT [Catalytic activity/Vol] 21 U/L Normal 10-49 [facility] MA[facility] Comment on above: Performed By: #### A COLLIN, MG, BMP, ADIFF, GFR, CBC, HFP #### [place] [id number] AST [Catalytic activity/Vol] 18 U/L Normal 8-34 [facility] MA[facility] Comment on above: Performed By: #### A COLLIN, MG, BMP, ADIFF, GFR, CBC, HFP #### [place] [address] Bili Direct 0.2 mg/dL Normal 0.0-0.4 [facility] MAIN Comment on above: Result Comment: Use of this assay is not recommended for patients undergoing treatment with eltrombopag due to the potential for falsely elevated results. Performed By: #### A COLLIN, MG, BMP, ADIFF, GFR, CBC, HFP #### [place] [address] Bili Total 0.60 mg/dL Normal 0.20-1.20 [facility] MA[facility] Comment on above: Result Comment: Use of this assay is not recommended for patients undergoing treatment with eltrombopag due to the potential for falsely elevated results. Performed By: #### A COLLIN, MG, BMP, ADIFF, GFR, CBC, HFP #### [place] [address] Globulin 2.7 G/dL Normal 1.5-3.8 [facility] MA[facility] Comment on above: Performed By: #### A COLLIN, MG, BMP, ADIFF, GFR, CBC, HFP #### [address] [address] Total Protein 6.0 G/dL Normal 5.7-8.2 [facility] MA[facility] Comment on above: Performed By: #### A COLLIN, MG, BMP, ADIFF, GFR, CBC, HFP #### [address] [address] LABORATORYOrdered By: SYSTEM SYSTEM on 05-16-2024 Albumin [...] above: Interpretive Data: T esting performed on [employer] analyzer using enzymatic creatinine methodology. Electrolyte Balance [...] 05-16-2024 Magnesium [Mass/Vol] 1.9 mg/dL Normal 1.6-2.4 [facility] MAIN Comment on above: Performed By: #### A COLLIN, MG, BMP, ADIFF, GFR, CBC, HFP #### [address] [address] .Auto Diffon 05-15-2024 Basophil, Absolute 0.1 10 3/mcL Normal 0.0-0.3 [facility] MA[facility] Comment on above: Performed By: #### A COLLIN, MG, BMP, ADIFF, GFR, CBC, HFP #### [address] [address] Basophils/100 WBC (Bld) 0.9 % Normal 0.0-2.5 [facility] MAIN Comment on above: Performed By: #### A COLLIN, MG, BMP, ADIFF, GFR, CBC, HFP #### [address] [id number] Eosinophil, Absolute 0.4 10 3/mcL Normal 0.0-0.7 [facility] MAIN Comment on above: Performed By: #### A COLLIN, MG, BMP, ADIFF, GFR, CBC, HFP #### [address] [address] Eosinophils/100 WBC (Bld) 4.3 % Normal 0.0-6.0 [facility] MAIN Comment on above: Performed By: #### A COLLIN, MG, BMP, ADIFF, GFR, CBC, HFP #### [address] [address] Lymphocyte, Absolute 1.1 10 3/mcL Normal 0.9-4.3 [facility] MAIN Comment on above: Performed By: #### A COLLIN, MG, BMP, ADIFF, GFR, CBC, HFP #### [address] [address] Lymphocytes/100 WBC (Bld) 10.6 % Low 20.0-40.0 [facility] MAIN Comment on above: Performed By: #### A COLLIN, MG, BMP, ADIFF, GFR, CBC, HFP #### [place] [id number] [place] [id number] Monocyte, Absolute 0.9 10 3/mcL Normal 0.1-1.4 [facility] MAIN Comment on above: Performed By: #### A COLLIN, MG, BMP, ADIFF, GFR, CBC, HFP #### [address] [address] Monocytes/100 WBC (Bld) 9.1 % Normal 2.0-13.0 [facility] MAIN Comment on above: Performed By: #### A COLLNI, MG, BMP, ADIFF, GFR, CBC, HFP #### [address] [address] Neutrophils/100 WBC (Bld) 75.1 % High 50.0-75.0 [facility] MAIN Comment on above: Performed By: #### A COLLIN, MG, BMP, ADIFF, GFR, CBC, HFP #### [address] [address] .GFRon 05-15-2024 Estimated Glomerular Filtration Rate 53 ml/min/1.73sqm [facility] MAIN Comment on above: Result Comment: [...] Performed By: #### G FR, BMP #### [address] [address] GFR >60 Normal [facility] MAIN Comment on above: Result Comment: GFR [...] MG, BMP, ADIFF, GFR, CBC, HFP #### [address] [address] GFR Non- 56 ml/min/1.73sqm Normal [facility] MAIN Comment on above: Result Comment: GFR [...] MG, BMP, ADIFF, GFR, CBC, HFP #### [address] [address] .NEUABSon 05-15-2024 Neutrophil, Absolute 7.8 10 3/mcL Normal 2.3-8.1 [facility] MAIN Comment on above: Performed By: #### A COLLIN, MG, BMP, ADIFF, GFR, CBC, HFP #### [address] [address] APTTon 05-15-2024 aPTT Coag (Bld) [Time] 53.5 s High 25.0-35.0 [facility] MAIN Comment on above: Order Comment: QNS - please recollect Result Comment: For Heparin anticoagulation therapy, the recommended therapeutic range is: 54-77 seconds (APTT Correlation with Anti-Xa therapeutic range of 0.3-0.7 units/ml). PLEASE REFERENCE THE PHARMACY PROTOCOL FOR DOSING. Performed By: #### G FR, BMP #### [address] [address] [facility] BUN/Creatinine Ratio 18.9 ratio Normal 10.0-22.0 [facility] MAIN Comment on above: Performed By: #### G FR, BMP #### [address] [address] Calcium [Mass/Vol] 10.0 mg/dL Normal 8.7-10.4 [facility] MAIN Comment on above: Performed By: #### G FR, BMP #### [address] [address] Chloride [Moles/Vol] 96 mmol/L Low 98-110 [facility] MAIN Comment on above: Performed By: #### G FR, BMP #### [address] [address] CO2 [Moles/Vol] 34 mmol/L High 22-32 [facility] MAIN Comment on above: Performed By: #### G FR, BMP #### [address] [address] Creatinine [Mass/Vol] 1.06 mg/dL Normal 0.50-1.20 [facility] MAIN Comment on above: Result Comment: Test ing performed on Cinegif analyzer using enzymatic creatinine methodology. Performed By: #### G FR, BMP #### [address] [address] Electrolyte Balance 7.0 mEq/L Normal 4.0-15.0 [facility] MAIN Comment on above: Performed By: #### G FR, BMP #### [address] [address] Glucose [Mass/Vol] 84 mg/dL Normal 82-115 [facility] MAIN Comment on above: Performed By: #### G FR, BMP #### [facility] [address] [place], [place] [address] Potassium [Moles/Vol] 4.2 mmol/L Normal 3.5-5.0 [facility] MAIN Comment on above: Performed By: #### G FR, BMP #### [address] [address] Sodium [Moles/Vol] 137 mmol/L Normal 136-145 [facility] MAIN Comment on above: Performed By: #### G FR, BMP #### [address] [address] Urea nitrogen [Mass/Vol] 20.0 mg/dL Normal 8.0-22.0 [facility] MAIN Comment on above: Performed By: #### G FR, BMP #### [address] [address] BUN/Creatinine Ratio 17.7 ratio Normal 10.0-22.0 [facility] MAIN Comment on above: Performed By: #### A COLLIN, MG, BMP, ADIFF, GFR, CBC, HFP #### [address] [address] Calcium [Mass/Vol] 9.5 mg/dL Normal 8.7-10.4 [facility] MAIN Comment on above: Performed By: #### A COLLIN, MG, BMP, ADIFF, GFR, CBC, HFP #### [address] [address] Chloride [Moles/Vol] 98 mmol/L Normal 98-110 [facility] MAIN Comment on above: Performed By: #### A COLLIN, MG, BMP, ADIFF, GFR, CBC, HFP #### [address] [address] CO2 [Moles/Vol] 31 mmol/L Normal 22-32 [facility] MAIN Comment on above: Performed By: #### A COLLIN, MG, BMP, ADIFF, GFR, CBC, HFP #### [address] [address] Creatinine [Mass/Vol] 0.96 mg/dL Normal 0.50-1.20 [facility] MAIN Comment on above: Result Comment: Test ing performed on Cinegif analyzer using enzymatic creatinine methodology. Performed By: #### A COLLIN, MG, BMP, ADIFF, GFR, CBC, HFP #### [place] [id number] Electrolyte Balance 9.0 mEq/L Normal 4.0-15.0 [facility] MAIN Comment on above: Performed By: #### A COLLIN, MG, BMP, ADIFF, GFR, CBC, HFP #### [place] [id number] Glucose [Mass/Vol] 86 mg/dL Normal 82-115 [facility] MAIN Comment on above: Performed By: #### A COLLIN, MG, BMP, ADIFF, GFR, CBC, HFP #### [place] [id number] Potassium [Moles/Vol] 3.7 mmol/L Normal 3.5-5.0 [facility] MAIN Comment on above: Performed By: #### A COLLIN, MG, BMP, ADIFF, GFR, CBC, HFP #### [place] [id number] Sodium [Moles/Vol] 138 mmol/L Normal 136-145 [facility] MAIN Comment on above: Performed By: #### A COLLIN, MG, BMP, ADIFF, GFR, CBC, HFP #### [place] [address] Urea nitrogen [Mass/Vol] 17.0 mg/dL Normal 8.0-22.0 [facility] MAIN Comment on above: Performed By: #### A COLLIN, MG, BMP, ADIFF, GFR, CBC, HFP #### [address] [address] CBCon 05-15-2024 Erythrocyte distribution width (RBC) [Ratio] 13.4 % Normal 11.5-15.5 [facility] MAIN Comment on above: Performed By: #### A COLLIN, MG, BMP, ADIFF, GFR, CBC, HFP #### [place] [id number] Hematocrit (Bld) [Volume fraction] 42.5 % Normal 34.0-46.0 [facility] MAIN Comment on above: Performed By: #### A COLLIN, MG, BMP, ADIFF, GFR, CBC, HFP #### [place] [address] Hgb 14.5 G/dL Normal 12.0-16.0 [facility] MAIN Comment on above: Performed By: #### A COLLIN, MG, BMP, ADIFF, GFR, CBC, HFP #### [place] [address] MCH (RBC) [Entitic mass] 30.2 pg Normal 27.0-33.0 [facility] MAIN Comment on above: Performed By: #### A COLLIN, MG, BMP, ADIFF, GFR, CBC, HFP #### [place] [address] MCHC 34.0 G/dL Normal 32.0-36.0 [facility] MAIN Comment on above: Performed By: #### A COLLIN, MG, BMP, ADIFF, GFR, CBC, HFP #### [place] [address] MCV (RBC) [Entitic vol] 88.8 fL Normal 80.0-99.0 [facility] MAIN Comment on above: Performed By: #### A COLLIN, MG, BMP, ADIFF, GFR, CBC, HFP #### [place] [address] Platelet 285 10 3/mcL Normal 150-450 [facility] MAIN Comment on above: Performed By: #### A COLLIN, MG, BMP, ADIFF, GFR, CBC, HFP #### [place] [address] Platelet mean volume (Bld) [Entitic vol] 7.9 fL Normal 6.6-10.5 [facility] MAIN Comment on above: Performed By: #### A COLLIN, MG, BMP, ADIFF, GFR, CBC, HFP #### [place] [address] RBC 4.78 10 6/mcL Normal 4.10-5.30 [facility] MAIN Comment on above: Performed By: #### A COLLIN, MG, BMP, ADIFF, GFR, CBC, HFP #### [place] [address] WBC 10.4 10 3/mcL Normal 4.5-10.8 [facility] MAIN Comment on above: Performed By: #### A COLLIN, MG, BMP, ADIFF, GFR, CBC, HFP #### [address] [address] HFPon 05-15-2024 Bili Indirect 0.3 mg/dL Normal 0.1-10.0 [facility] MAIN Comment on above: Performed By: #### A COLLIN, MG, BMP, ADIFF, GFR, CBC, HFP #### [place] [address] Albumin Level 3.2 G/dL Normal 3.2-4.8 [facility] MAIN Comment on above: Performed By: #### A COLLIN, MG, BMP, ADIFF, GFR, CBC, HFP #### [place] [address] Albumin/Globulin [Mass ratio] 1.2 {ratio} Normal 0.9-1.6 [facility] MAIN Comment on above: Performed By: #### A COLLIN, MG, BMP, ADIFF, GFR, CBC, HFP #### [address] [address] ALP [Catalytic activity/Vol] 98 U/L Normal 38-126 [facility] MAIN Comment on above: Performed By: #### A COLLIN, MG, BMP, ADIFF, GFR, CBC, HFP #### [address] [address] ALT [Catalytic activity/Vol] 22 U/L Normal 10-49 [facility] MAIN Comment on above: Performed By: #### A COLLIN, MG, BMP, ADIFF, GFR, CBC, HFP #### [address] [address] AST [Catalytic activity/Vol] 21 U/L Normal 8-34 [facility] MAIN Comment on above: Performed By: #### A COLLIN, MG, BMP, ADIFF, GFR, CBC, HFP #### [place] [address] Bili Direct 0.2 mg/dL Normal 0.0-0.4 [facility] MAIN Comment on above: Result Comment: Use of this assay is not recommended for patients undergoing treatment with eltrombopag due to the potential for falsely elevated results. Performed By: #### A COLLIN, MG, BMP, ADIFF, GFR, CBC, HFP #### [place] [address] Bili Total 0.50 mg/dL Normal 0.20-1.20 [facility] MAIN Comment on above: Result Comment: Use of this assay is not recommended for patients undergoing treatment with eltrombopag due to the potential for falsely elevated results. Performed By: #### A COLLIN, MG, BMP, ADIFF, GFR, CBC, HFP #### [place] [address] Globulin 2.6 G/dL Normal 1.5-3.8 [facility] MAIN Comment on above: Performed By: #### A COLLIN, MG, BMP, ADIFF, GFR, CBC, HFP #### [place] [address] Total Protein 5.8 G/dL Normal 5.7-8.2 [facility] MAIN Comment on above: Performed By: #### A COLLIN, MG, BMP, ADIFF, GFR, CBC, HFP #### [place] [address] LABORATORYOrdered By: SYSTEM SYSTEM on 05-15-2024 GFR/1.73 [...] 05-15-2024 Magnesium [Mass/Vol] 1.9 mg/dL Normal 1.6-2.4 [facility] MAIN Comment on above: Performed By: #### A COLLIN, MG, BMP, ADIFF, GFR, CBC, HFP #### [address] [address] .Auto Diffon 05-14-2024 Basophil, Absolute 0.1 10 3/mcL Normal 0.0-0.3 [facility] MAIN Comment on above: Performed By: #### A COLLIN, MG, BMP, ADIFF, GFR, CBC, HFP #### [address] [address] Basophils/100 WBC (Bld) 0.8 % Normal 0.0-2.5 [facility] MAIN Comment on above: Performed By: #### A COLLIN, MG, BMP, ADIFF, GFR, CBC, HFP #### [address] [address] Eosinophil, Absolute 0.3 10 3/mcL Normal 0.0-0.7 [facility] MAIN Comment on above: Performed By: #### A COLLIN, MG, BMP, ADIFF, GFR, CBC, HFP #### [address] [address] Eosinophils/100 WBC (Bld) 2.5 % Normal 0.0-6.0 [facility] MAIN Comment on above: Performed By: #### A COLLIN, MG, BMP, ADIFF, GFR, CBC, HFP #### [address] [address] Lymphocyte, Absolute 0.9 10 3/mcL Normal 0.9-4.3 [facility] MAIN Comment on above: Performed By: #### A COLLIN, MG, BMP, ADIFF, GFR, CBC, HFP #### [address] [address] Lymphocytes/100 WBC (Bld) 8.2 % Low 20.0-40.0 [facility] MAIN Comment on above: Performed By: #### A COLLIN, MG, BMP, ADIFF, GFR, CBC, HFP #### [address] [address] Monocyte, Absolute 1.1 10 3/mcL Normal 0.1-1.4 [facility] MAIN Comment on above: Performed By: #### A COLLIN, MG, BMP, ADIFF, GFR, CBC, HFP #### [address] [address] Monocytes/100 WBC (Bld) 9.6 % Normal 2.0-13.0 [facility] MAIN Comment on above: Performed By: #### A COLLIN, MG, BMP, ADIFF, GFR, CBC, HFP #### [address] [address] Neutrophils/100 WBC (Bld) 78.9 % High 50.0-75.0 [facility] MAIN Comment on above: Performed By: #### A COLLIN, MG, BMP, ADIFF, GFR, CBC, HFP #### [address] [address] .GFRon 05-14-2024 GFR >60 Normal [facility] MAIN Comment on above: Result Comment: GFR [...] MG, BMP, ADIFF, GFR, CBC, HFP #### [place] [address] GFR Non- 51 ml/min/1.73sqm [facility] MAIN Comment on above: Result Comment: [...] MG, BMP, ADIFF, GFR, CBC, HFP #### [place] [id number] .NEUABSon 05-14-2024 Neutrophil, Absolute 8.8 10 3/mcL High 2.3-8.1 [facility] MAIN Comment on above: Performed By: #### A COLLIN, MG, BMP, ADIFF, GFR, CBC, HFP #### [place] [address] A1Con 05-14-2024 Glucose [Mass/Vol] 105 mg/dL [facility] MAIN Comment on above: Result Comment: Mayte mated Average Glucose calculated by equation ((28.7xA1C)-46.7) Estimated average glucose (eAG) is a calculated value from Hemoglobin A1C and is employee's representative of the average blood glucose level in the last 2-3 month period. Normal range: less than 114 mg/dL Performed By: #### A COLLIN, MG, BMP, ADIFF, GFR, CBC, HFP #### [place] [id number] HbA1c (Bld) [Mass fraction] 5.3 % Normal 4.0-6.0 [facility] MAIN Comment on above: Performed By: #### A COLLIN, MG, BMP, ADIFF, GFR, CBC, HFP #### [place] [id number] APTTon 05-14-2024 aPTT Coag (Bld) [Time] 56.4 s High 25.0-35.0 [facility] MAIN Comment on above: Result Comment: For Heparin anticoagulation therapy, the recommended therapeutic range is: 54-77 seconds (APTT Correlation with Anti-Xa therapeutic range of 0.3-0.7 units/ml). PLEASE REFERENCE THE PHARMACY PROTOCOL FOR DOSING. Performed By: #### G FR, BMP #### [place] [id number] aPTT Coag (Bld) [Time] 47.2 s High 25.0-35.0 [facility] MAIN Comment on above: Result Comment: For Heparin anticoagulation therapy, the recommended therapeutic range is: 54-77 seconds (APTT Correlation with Anti-Xa therapeutic range of 0.3-0.7 units/ml). PLEASE REFERENCE THE PHARMACY PROTOCOL FOR DOSING. Performed By: #### G FR, BMP #### [place] [address] aPTT Coag (Bld) [Time] 61.5 s High 25.0-35.0 [facility] MAIN Comment on above: Result Comment: For Heparin anticoagulation therapy, the recommended therapeutic range is: 54-77 seconds (APTT Correlation with Anti-Xa therapeutic range of 0.3-0.7 units/ml). PLEASE REFERENCE THE PHARMACY PROTOCOL FOR DOSING. Performed By: #### A COLLIN, MG, BMP, ADIFF, GFR, CBC, HFP #### [place] [id number] aPTT Coag (Bld) [Time] 38.1 s High 25.0-35.0 [facility] MAIN Comment on above: Result Comment: For Heparin anticoagulation therapy, the recommended therapeutic range is: 54-77 seconds (APTT Correlation with Anti-Xa therapeutic range of 0.3-0.7 units/ml). PLEASE REFERENCE THE PHARMACY PROTOCOL FOR DOSING. Performed By: #### G FR, BMP #### [address] [address] BMPon 05-14-2024 BUN/Creatinine Ratio 14.6 ratio Normal 10.0-22.0 [facility] MAIN Comment on above: Performed By: #### A COLLIN, MG, BMP, ADIFF, GFR, CBC, HFP #### [place] [id number] Calcium [Mass/Vol] 9.4 mg/dL Normal 8.7-10.4 [facility] MAIN Comment on above: Performed By: #### A COLLIN, MG, BMP, ADIFF, GFR, CBC, HFP #### [place] [id number] Chloride [Moles/Vol] 100 mmol/L Normal 98-110 [facility] MAIN Comment on above: Performed By: #### A COLLIN, MG, BMP, ADIFF, GFR, CBC, HFP #### [place] [id number] CO2 [Moles/Vol] 31 mmol/L Normal 22-32 [facility] MAIN Comment on above: Performed By: #### A COLLIN, MG, BMP, ADIFF, GFR, CBC, HFP #### [place] [address] Creatinine [Mass/Vol] 1.03 mg/dL Normal 0.50-1.20 [facility] MAIN Comment on above: Result Comment: Test ing performed on Cinegif analyzer using enzymatic creatinine methodology. Performed By: #### A COLLIN, MG, BMP, ADIFF, GFR, CBC, HFP #### [place] [id number] Electrolyte Balance 8.0 mEq/L Normal 4.0-15.0 [facility] MAIN Comment on above: Performed By: #### A COLLIN, MG, BMP, ADIFF, GFR, CBC, HFP #### [address] [address] Glucose [Mass/Vol] 99 mg/dL Normal 82-115 [facility] MAIN Comment on above: Performed By: #### A COLLIN, MG, BMP, ADIFF, GFR, CBC, HFP #### [address] [address] Potassium [Moles/Vol] 3.8 mmol/L Normal 3.5-5.0 [facility] MAIN Comment on above: Performed By: #### A COLLIN, MG, BMP, ADIFF, GFR, CBC, HFP #### [address] [address] Sodium [Moles/Vol] 139 mmol/L Normal 136-145 [facility] MAIN Comment on above: Performed By: #### A COLLIN, MG, BMP, ADIFF, GFR, CBC, HFP #### [place] [address] Urea nitrogen [Mass/Vol] 15.0 mg/dL Normal 8.0-22.0 [facility] MAIN Comment on above: Performed By: #### A COLLIN, MG, BMP, ADIFF, GFR, CBC, HFP #### [address] [address] CBCon 05-14-2024 Erythrocyte distribution width (RBC) [Ratio] 13.7 % Normal 11.5-15.5 [facility] MAIN Comment on above: Performed By: #### A COLLIN, MG, BMP, ADIFF, GFR, CBC, HFP #### [place] [id number] Hematocrit (Bld) [Volume fraction] 41.1 % Normal 34.0-46.0 [facility] MAIN Comment on above: Performed By: #### A COLLIN, MG, BMP, ADIFF, GFR, CBC, HFP #### [place] [id number] Hgb 14.0 G/dL Normal 12.0-16.0 [facility] MAIN Comment on above: Performed By: #### A COLLIN, MG, BMP, ADIFF, GFR, CBC, HFP #### [place] [address] MCH (RBC) [Entitic mass] 30.0 pg Normal 27.0-33.0 [facility] MAIN Comment on above: Performed By: #### A COLLIN, MG, BMP, ADIFF, GFR, CBC, HFP #### [place] [address] MCHC 33.9 G/dL Normal 32.0-36.0 [facility] MAIN Comment on above: Performed By: #### A COLLIN, MG, BMP, ADIFF, GFR, CBC, HFP #### [place] [address] MCV (RBC) [Entitic vol] 88.5 fL Normal 80.0-99.0 [facility] MAIN Comment on above: Performed By: #### A COLLIN, MG, BMP, ADIFF, GFR, CBC, HFP #### [place] [address] Platelet 285 10 3/mcL Normal 150-450 [facility] MAIN Comment on above: Performed By: #### A COLLIN, MG, BMP, ADIFF, GFR, CBC, HFP #### [place] [address] Platelet mean volume (Bld) [Entitic vol] 8.1 fL Normal 6.6-10.5 [facility] MAIN Comment on above: Performed By: #### A COLLIN, MG, BMP, ADIFF, GFR, CBC, HFP #### [place] [address] RBC 4.65 10 6/mcL Normal 4.10-5.30 [facility] MAIN Comment on above: Performed By: #### A COLLIN, MG, BMP, ADIFF, GFR, CBC, HFP #### [place] [address] WBC 11.2 10 3/mcL High 4.5-10.8 [facility] MAIN Comment on above: Performed By: #### A COLLIN, MG, BMP, ADIFF, GFR, CBC, HFP #### [place] [address] HFPon 05-14-2024 Bili Indirect 0.3 mg/dL Normal 0.1-10.0 [facility] MAIN Comment on above: Performed By: #### A COLLIN, MG, BMP, ADIFF, GFR, CBC, HFP #### [place] [address] Albumin Level 3.4 G/dL Normal 3.2-4.8 [facility] MAIN Comment on above: Performed By: #### A COLLIN, MG, BMP, ADIFF, GFR, CBC, HFP #### [place] [address] Albumin/Globulin [Mass ratio] 1.4 {ratio} Normal 0.9-1.6 [facility] MAIN Comment on above: Performed By: #### A COLLIN, MG, BMP, ADIFF, GFR, CBC, HFP #### [place] [address] ALP [Catalytic activity/Vol] 101 U/L Normal 38-126 [facility] MAIN Comment on above: Performed By: #### A COLLIN, MG, BMP, ADIFF, GFR, CBC, HFP #### [place] [address] ALT [Catalytic activity/Vol] 29 U/L Normal 10-49 [facility] MAIN Comment on above: Performed By: #### A COLLIN, MG, BMP, ADIFF, GFR, CBC, HFP #### [place] [address] AST [Catalytic activity/Vol] 23 U/L Normal 8-34 [facility] MAIN Comment on above: Performed By: #### A COLLIN, MG, BMP, ADIFF, GFR, CBC, HFP #### [place] [address] Bili Direct 0.2 mg/dL Normal 0.0-0.4 [facility] MAIN Comment on above: Result Comment: Use of this assay is not recommended for patients undergoing treatment with eltrombopag due to the potential for falsely elevated results. Performed By: #### A COLLIN, MG, BMP, ADIFF, GFR, CBC, HFP #### [place] [address] Bili Total 0.50 mg/dL Normal 0.20-1.20 [facility] MAIN Comment on above: Result Comment: Use of this assay is not recommended for patients undergoing treatment with eltrombopag due to the potential for falsely elevated results. Performed By: #### A COLLIN, MG, BMP, ADIFF, GFR, CBC, HFP #### [address] [address] Globulin 2.5 G/dL Normal 1.5-3.8 [facility] MAIN Comment on above: Performed By: #### A COLLIN, MG, BMP, ADIFF, GFR, CBC, HFP #### [address] [address] Total Protein 5.9 G/dL Normal 5.7-8.2 [facility] MAIN Comment on above: Performed By: #### A COLLIN, MG, BMP, ADIFF, GFR, CBC, HFP #### [address] [address] LABORATORYOrdered By: Crissy Dutta on 05-14-2024 Cholesterol [Mass/Vol] 143 mg/dL Normal 50 - 199 mg/dL [facility] Comment on above: Interpretive Data: C holesterol Reference Interval: Less than 200 Desirable 200-239 Borderline high risk 240 and above High risk Cholesterol in HDL [Mass/Vol] 54 mg/dL Normal 40 - 59 mg/dL [facility] Cholesterol in LDL [Mass/Vol] 77 mg/dL Normal 0 - 129 mg/dL [facility] Triglyceride [Mass/Vol] 61 mg/dL Normal 3 - 149 mg/dL [facility] LABORATORYOrdered By: SYSTEM SYSTEM on 05-14-2024 [...] calculated value from Hemoglobin A1C and is employee's representative of the average blood glucose level [...] ng/L Male: 0-54 ng/L Testing performed on [employer] analyzer using direct chemiluminescent technology. LIPIDon 05-14-2024 Cholesterol [Mass/Vol] 143 mg/dL Normal 50-199 [facility] MAIN Comment on above: Result Comment: Chol esterol Reference Interval: Less than 200 Desirable 200-239 Borderline high risk 240 and above High risk Performed By: #### A COLLIN, MG, BMP, ADIFF, GFR, CBC, HFP #### [place] [address] Cholesterol in HDL [Mass/Vol] 54 mg/dL Normal 40-59 [facility] MAIN Comment on above: Performed By: #### A COLLIN, MG, BMP, ADIFF, GFR, CBC, HFP #### [place] [address] Cholesterol in LDL [Mass/Vol] 77 mg/dL Normal 0-129 [facility] MAIN Comment on above: Performed By: #### A COLLIN, MG, BMP, ADIFF, GFR, CBC, HFP #### [place] [address] Triglyceride [Mass/Vol] 61 mg/dL Normal 3-149 [facility] MAIN Comment on above: Performed By: #### A COLLIN, MG, BMP, ADIFF, GFR, CBC, HFP #### [place] [address] MGon 05-14-2024 Magnesium [Mass/Vol] 2.0 mg/dL Normal 1.6-2.4 [facility] MAIN Comment on above: Performed By: #### A COLLIN, MG, BMP, ADIFF, GFR, CBC, HFP #### [address] [address] TROPHSon 05-14-2024 High Sensitivity Troponin I 133 ng/L High 0-34 [facility] MA[facility] Comment on above: Result Comment: High Sensitive Troponin I Reference Ranges: Female: 0-34 ng/L Male: 0-54 ng/L Testing performed on [employer] analyzer using direct chemiluminescent technology. Performed By: #### A COLLIN, MG, BMP, ADIFF, GFR, CBC, HFP #### [place] [address] TSHRon 05-14-2024 TSH 1.218 mIU/mL Normal 0.550-4.780 [facility] MAIN Comment on above: Performed By: #### A COLLIN, MG, BMP, ADIFF, GFR, CBC, HFP #### [address] [address] .Auto Diffon 05-13-2024 Basophil, Absolute 0.1 10 3/mcL Normal 0.0-0.2 [facility] Comment on above: Performed By: #### M DW, MG, GFR, BMP, CBC, ANEU, TROPHS, ADIFF #### [address] [address] Basophils/100 WBC (Bld) 1.2 % Normal 0.0-2.5 [facility] Comment on above: Performed By: #### M DW, MG, GFR, BMP, CBC, ANEU, TROPHS, ADIFF #### [address] [address] Eosinophil, Absolute 0.2 10 3/mcL Normal 0.0-0.7 [facility] Comment on above: Performed By: #### M DW, MG, GFR, BMP, CBC, ANEU, TROPHS, ADIFF #### [address] [address] Eosinophils/100 WBC (Bld) 2.3 % Normal 0.0-7.0 [facility] Comment on above: Performed By: #### M DW, MG, GFR, BMP, CBC, ANEU, TROPHS, ADIFF #### [address] [address] Lymphocyte, Absolute 1.0 10 3/mcL Normal 0.9-4.3 [facility] Comment on above: Performed By: #### M DW, MG, GFR, BMP, CBC, ANEU, TROPHS, ADIFF #### [address] [address] Lymphocytes/100 WBC (Bld) 9.5 % Low 20.0-40.0 [facility] Comment on above: Performed By: #### M DW, MG, GFR, BMP, CBC, ANEU, TROPHS, ADIFF #### [address] [address] Monocyte, Absolute 0.8 10 3/mcL Normal 0.1-1.4 [facility] Comment on above: Performed By: #### M DW, MG, GFR, BMP, CBC, ANEU, TROPHS, ADIFF #### [address] [address] Monocytes/100 WBC (Bld) 8.1 % Normal 2.0-13.0 [facility] Comment on above: Performed By: #### M DW, MG, GFR, BMP, CBC, ANEU, TROPHS, ADIFF #### [address] [address] Neutrophils/100 WBC (Bld) 78.9 % High 50.0-75.0 [facility] Comment on above: Performed By: #### M DW, MG, GFR, BMP, CBC, ANEU, TROPHS, ADIFF #### [address] [address] .GFRon 05-13-2024 GFR 70 ml/min/1.73sqm [facility] Comment on above: Result Comment: GFR [...] GFR, BMP, CBC, ANEU, TROPHS, ADIFF #### [address] [address] GFR Non- 58 ml/min/1.73sqm [facility] Comment on above: Result Comment: GFR [...] GFR, BMP, CBC, ANEU, TROPHS, ADIFF #### [address] [address] .MDWon 05-13-2024 Monocyte Distribution Width 18.21 Normal 0.00-20.00 [facility] Comment on above: Result Comment: For ED adult patients suspected of sepsis, MDW<=20.0 does not rule out sepsis or risk of sepsis Performed By: #### M DW, MG, GFR, BMP, CBC, ANEU, TROPHS, ADIFF #### [address] [address] .NEUABSon 05-13-2024 Neutrophil, Absolute 8.3 10 3/mcL High 2.3-8.1 [facility] Comment on above: Performed By: #### M DW, MG, GFR, BMP, CBC, ANEU, TROPHS, ADIFF #### [address] [address] APTTon 05-13-2024 aPTT Coag (Bld) [Time] 43.1 s High 25.0-35.0 [facility] Comment on above: Result Comment: For Heparin anticoagulation therapy, the recommended therapeutic range is: 54-77 seconds (APTT Correlation with Anti-Xa therapeutic range of 0.3-0.7 units/ml). PLEASE REFERENCE THE PHARMACY PROTOCOL FOR DOSING. Performed By: #### G FR, BMP #### [facility] [address] [place] [id number] aPTT Coag (Bld) [Time] 32.5 s Normal 25.0-35.0 [facility] Comment on above: Result Comment: For Heparin anticoagulation therapy, the recommended therapeutic range is: 45.4-75.9 seconds. Patients on heparin therapy may have an extreme result. Performed By: #### M DW, MG, GFR, BMP, CBC, ANEU, TROPHS, ADIFF #### [address] [address] CBCon 05-13-2024 Erythrocyte distribution width (RBC) [Ratio] 13.9 % Normal 11.5-15.5 [facility] Comment on above: Performed By: #### M DW, MG, GFR, BMP, CBC, ANEU, TROPHS, ADIFF #### [place] [address] Hematocrit (Bld) [Volume fraction] 42.2 % Normal 34.0-46.0 [facility] Comment on above: Performed By: #### M DW, MG, GFR, BMP, CBC, ANEU, TROPHS, ADIFF #### [place] [address] Hgb 14.5 G/dL Normal 12.0-16.0 [facility] Comment on above: Performed By: #### M DW, MG, GFR, BMP, CBC, ANEU, TROPHS, ADIFF #### [place] [id number] MCH (RBC) [Entitic mass] 30.2 pg Normal 27.0-33.0 [facility] Comment on above: Performed By: #### M DW, MG, GFR, BMP, CBC, ANEU, TROPHS, ADIFF #### [place] [address] MCHC 34.3 G/dL Normal 32.0-36.0 [facility] Comment on above: Performed By: #### M DW, MG, GFR, BMP, CBC, ANEU, TROPHS, ADIFF #### [place] [address] MCV (RBC) [Entitic vol] 88.1 fL Normal 80.0-99.0 [facility] Comment on above: Performed By: #### M DW, MG, GFR, BMP, CBC, ANEU, TROPHS, ADIFF #### [address] [address] Platelet 306 10 3/mcL Normal 150-450 [facility] Comment on above: Performed By: #### M DW, MG, GFR, BMP, CBC, ANEU, TROPHS, ADIFF #### [address] [address] Platelet mean volume (Bld) [Entitic vol] 7.8 fL Normal 6.6-10.5 [facility] Comment on above: Performed By: #### M DW, MG, GFR, BMP, CBC, ANEU, TROPHS, ADIFF #### [address] [address] RBC 4.79 10 6/mcL Normal 4.10-5.30 [facility] Comment on above: Performed By: #### M DW, MG, GFR, BMP, CBC, ANEU, TROPHS, ADIFF #### [address] [address] WBC 10.5 10 3/mcL Normal 4.5-10.8 [facility] Comment on above: Performed By: #### M DW, MG, GFR, BMP, CBC, ANEU, TROPHS, ADIFF #### [address] [address] CMPon 05-13-2024 Albumin Level 3.6 G/dL Normal 3.4-4.8 [facility] Comment on above: Performed By: #### M DW, MG, GFR, BMP, CBC, ANEU, TROPHS, ADIFF #### [address] [address] Albumin/Globulin [Mass ratio] 1.4 {ratio} Normal 1.1-2.5 [facility] Comment on above: Performed By: #### M DW, MG, GFR, BMP, CBC, ANEU, TROPHS, ADIFF #### [address] [address] ALP [Catalytic activity/Vol] 114 U/L Normal 40-135 [facility] Comment on above: Performed By: #### M DW, MG, GFR, BMP, CBC, ANEU, TROPHS, ADIFF #### [address] [address] ALT [Catalytic activity/Vol] 41 U/L Normal 14-59 [facility] Comment on above: Performed By: #### M DW, MG, GFR, BMP, CBC, ANEU, TROPHS, ADIFF #### [address] [address] AST [Catalytic activity/Vol] 20 U/L Normal 10-40 [facility] Comment on above: Performed By: #### M DW, MG, GFR, BMP, CBC, ANEU, TROPHS, ADIFF #### [address] [address] Bili Total 0.5 mg/dL Normal 0.2-1.0 [facility] Comment on above: Result Comment: Use of this assay is not recommended for patients undergoing treatment with eltrombopag due to the potential for falsely elevated results. Performed By: #### M DW, MG, GFR, BMP, CBC, ANEU, TROPHS, ADIFF #### [address] [address] BUN/Creatinine Ratio 18 ratio Normal 7-27 [facility] Comment on above: Performed By: #### M DW, MG, GFR, BMP, CBC, ANEU, TROPHS, ADIFF #### [address] [address] Calcium [Mass/Vol] 9.4 mg/dL Normal 8.4-10.2 [facility] Comment on above: Performed By: #### M DW, MG, GFR, BMP, CBC, ANEU, TROPHS, ADIFF #### [address] [address] Chloride [Moles/Vol] 98 mmol/L Normal 98-107 [facility] Comment on above: Performed By: #### M DW, MG, GFR, BMP, CBC, ANEU, TROPHS, ADIFF #### [address] [address] CO2 [Moles/Vol] 29 mmol/L Normal 23-31 [facility] Comment on above: Performed By: #### M DW, MG, GFR, BMP, CBC, ANEU, TROPHS, ADIFF #### [address] [address] Creatinine [Mass/Vol] 0.93 mg/dL Normal 0.55-1.02 [facility] Comment on above: Result Comment: Test ing performed on [employer] Dimension EXL analyzer using a modified kinetic Josse technique. Performed By: #### M DW, MG, GFR, BMP, CBC, ANEU, TROPHS, ADIFF #### [place] [address] Electrolyte Balance 5.0 mEq/L Normal 4.0-15.0 [facility] Comment on above: Performed By: #### M DW, MG, GFR, BMP, CBC, ANEU, TROPHS, ADIFF #### [place] [address] Globulin 2.6 G/dL Normal [facility] Comment on above: Performed By: #### M DW, MG, GFR, BMP, CBC, ANEU, TROPHS, ADIFF #### [place] [address] Glucose [Mass/Vol] 139 mg/dL High 83-110 [facility] Comment on above: Performed By: #### M DW, MG, GFR, BMP, CBC, ANEU, TROPHS, ADIFF #### [place] [address] Potassium [Moles/Vol] 3.9 mmol/L Normal 3.5-5.1 [facility] Comment on above: Performed By: #### M DW, MG, GFR, BMP, CBC, ANEU, TROPHS, ADIFF #### [place] [address] Sodium [Moles/Vol] 132 mmol/L Low 136-145 [facility] Comment on above: Performed By: #### M DW, MG, GFR, BMP, CBC, ANEU, TROPHS, ADIFF #### [place] [address] [place], [place] [address] Total Protein 6.2 G/dL Low 6.4-8.2 [facility] Comment on above: Performed By: #### M DW, MG, GFR, BMP, CBC, ANEU, TROPHS, ADIFF #### [place] [address] [place], [place] [address] Urea nitrogen [Mass/Vol] 17 mg/dL Normal 7-18 [facility] Comment on above: Performed By: #### M DW, MG, GFR, BMP, CBC, ANEU, TROPHS, ADIFF #### [place] [address] [place], [place] [address] LABORATORYOrdered By: SYSTEM SYSTEM on 05-13-2024 aPTT [...] Comment on above: Interpretive Data: Jatinder samano [employer] (CHEST, 1992, 102:[id number]) [...] Workflow SS Natriuretic peptide.B prohormone N-Terminal [Mass/Vol] 13613 pg/mL High 0 - 450 pg/mL AO [...] ng/L Male: 0-76 ng/L Testing performed on Chois[employer] using a homogeneous sandwich chemiluminescent immunoassay based on Aura XM technology. Urea nitrogen [Mass/Vol] 17 mg/dL Normal 7 - 18 mg/dL AO ADM SS Urea nitrogen/Creatinine [Mass ratio] 18 ratio Normal 7 - 27 ratio AO ADM SS WBC (Bld) [#/Vol] 10.5 103/mcL Normal 4.5 - 10.8 10^3/mcL AO Workflow SS PBNPon 05-13-2024 Natriuretic peptide B (Bld) [Mass/Vol] 99899 pg/mL High 0-450 [facility] Comment on above: Result Comment: NT-p roBNP results of less than 300 pg/mL effectively rules out acute congestive heart failure with 99% negative predictive value. Performed By: #### M DW, MG, GFR, BMP, CBC, ANEU, TROPHS, ADIFF #### [address] [address] PROon 05-13-2024 PT Coag (PPP) [Time] 11.3 s Normal 9.0-14.4 [facility] Comment on above: Performed By: #### M DW, MG, GFR, BMP, CBC, ANEU, TROPHS, ADIFF #### [address] [address] PT International Ratio 1.0 Normal [facility] Comment on above: Result Comment: [employer] (CHEST, 1992, 102:312S-25S) recommended therapeutic range for oral anticoagulant therapy is: LOW RISK: Prophylaxis of venous thrombosis INR: 2.0-3.0 Treatment of pulmonary embolism 2.0-3.0 Prevention of systemic embolism 2.0-3.0 HIGH RISK: Mechanical prosthetic valves 2.5-3.5 Performed By: #### M DW, MG, GFR, BMP, CBC, ANEU, TROPHS, ADIFF #### [address] [address] TROPHSon 05-13-2024 High Sensitivity Troponin I 207 ng/L High 0-51 [facility] Comment on above: Result Comment: High Sensitive Troponin I Reference Ranges: Female: 0-51 ng/L Male: 0-76 ng/L Testing performed on [employer]ois[employer] using a homogeneous sandwich chemiluminescent immunoassay based on Aura XM technology. Performed By: #### M DW, MG, GFR, BMP, CBC, ANEU, TROPHS, ADIFF #### [address] [address] XR CHEST 1 VIEWon 05-13-2024 XR CHEST [...] 05/13/2024 1:39:17 PM Ordering Provider: TERRIE SIMS [facility] .GFRon 04-13-2024 GFR Non- 54 ml/min/1.73sqm [facility] Comment on above: Result Comment: GFR [...] GFR, BMP, CBC, ANEU, TROPHS, ADIFF #### [address] [address] GFR 66 ml/min/1.73sqm Normal [facility] Comment on above: Result Comment: GFR [...] GFR, BMP, CBC, ANEU, TROPHS, ADIFF #### [address] [address] BMPon 04-13-2024 BUN/Creatinine Ratio 18 ratio Normal 7-27 [facility] Comment on above: Performed By: #### M DW, MG, GFR, BMP, CBC, ANEU, TROPHS, ADIFF #### [address] [address] Calcium [Mass/Vol] 10.3 mg/dL High 8.4-10.2 [facility] Comment on above: Performed By: #### M DW, MG, GFR, BMP, CBC, ANEU, TROPHS, ADIFF #### [address] [address] Chloride [Moles/Vol] 89 mmol/L Low 98-107 [facility] Comment on above: Performed By: #### M DW, MG, GFR, BMP, CBC, ANEU, TROPHS, ADIFF #### [address] [address] CO2 [Moles/Vol] 34 mmol/L High 23-31 [facility] Comment on above: Performed By: #### M DW, MG, GFR, BMP, CBC, ANEU, TROPHS, ADIFF #### [address] [address] Creatinine [Mass/Vol] 0.98 mg/dL Normal 0.55-1.02 [facility] Comment on above: Result Comment: Test ing performed on Siemens Dimension EXL analyzer using a modified kinetic Josse technique. Performed By: #### M DW, MG, GFR, BMP, CBC, ANEU, TROPHS, ADIFF #### [address] [address] Electrolyte Balance 6.0 mEq/L Normal 4.0-15.0 [facility] Comment on above: Performed By: #### M DW, MG, GFR, BMP, CBC, ANEU, TROPHS, ADIFF #### [address] [address] Glucose [Mass/Vol] 106 mg/dL Normal 83-110 [facility] Comment on above: Performed By: #### M DW, MG, GFR, BMP, CBC, ANEU, TROPHS, ADIFF #### [address] [address] Potassium [Moles/Vol] 4.6 mmol/L Normal 3.5-5.1 [facility] Comment on above: Performed By: #### M DW, MG, GFR, BMP, CBC, ANEU, TROPHS, ADIFF #### [address] [address] Sodium [Moles/Vol] 129 mmol/L Low 136-145 [facility] Comment on above: Performed By: #### M DW, MG, GFR, BMP, CBC, ANEU, TROPHS, ADIFF #### [address] [address] Urea nitrogen [Mass/Vol] 18 mg/dL Normal 7-18 [facility] Comment on above: Performed By: #### M DW, MG, GFR, BMP, CBC, ANEU, TROPHS, ADIFF #### [address] [address] LABORATORYOrdered By: SYSTEM SYSTEM on 04-13-2024 Calcium [...] SS .GFRon 03-12-2024 GFR 74 ml/min/1.73sqm Normal [facility] Comment on above: Result Comment: GFR [...] GFR, BMP, CBC, ANEU, TROPHS, ADIFF #### [address] [address] GFR Non- 61 ml/min/1.73sqm Normal [facility] Comment on above: Result Comment: GFR [...] BMP, CBC, ANEU, TROPHS, ADIFF #### [place] [address] [place], [place] [address] BD BONE DENSITY DEXA AXIAL S Ignacio [...] 03/12/2024 12:06:57 PM Ordering Provider: EMILIANO Mercado [facility] CMPon 03-12-2024 Albumin Level 4.0 G/dL Normal 3.4-4.8 [facility] Comment on above: Performed By: #### M DW, MG, GFR, BMP, CBC, ANEU, TROPHS, ADIFF #### [address] [address] Albumin/Globulin [Mass ratio] 1.5 {ratio} Normal 1.1-2.5 [facility] Comment on above: Performed By: #### M DW, MG, GFR, BMP, CBC, ANEU, TROPHS, ADIFF #### [address] [address] ALP [Catalytic activity/Vol] 133 U/L Normal 40-135 [facility] Comment on above: Performed By: #### M DW, MG, GFR, BMP, CBC, ANEU, TROPHS, ADIFF #### [address] [address] ALT [Catalytic activity/Vol] 14 U/L Normal 14-59 [facility] Comment on above: Performed By: #### M DW, MG, GFR, BMP, CBC, ANEU, TROPHS, ADIFF #### [address] [address] AST [Catalytic activity/Vol] 11 U/L Normal 10-40 [facility] Comment on above: Performed By: #### M DW, MG, GFR, BMP, CBC, ANEU, TROPHS, ADIFF #### [address] [address] Bili Total 0.4 mg/dL Normal 0.2-1.0 [facility] Comment on above: Result Comment: Use of this assay is not recommended for patients undergoing treatment with eltrombopag due to the potential for falsely elevated results. Performed By: #### M DW, MG, GFR, BMP, CBC, ANEU, TROPHS, ADIFF #### [address] [address] BUN/Creatinine Ratio 16 ratio Normal 7-27 [facility] Comment on above: Performed By: #### M DW, MG, GFR, BMP, CBC, ANEU, TROPHS, ADIFF #### [address] [address] Calcium [Mass/Vol] 10.4 mg/dL High 8.4-10.2 [facility] Comment on above: Performed By: #### M DW, MG, GFR, BMP, CBC, ANEU, TROPHS, ADIFF #### [place] [address] Chloride [Moles/Vol] 94 mmol/L Low 98-107 [facility] Comment on above: Performed By: #### M DW, MG, GFR, BMP, CBC, ANEU, TROPHS, ADIFF #### [place] [address] CO2 [Moles/Vol] 31 mmol/L Normal 23-31 [facility] Comment on above: Performed By: #### M DW, MG, GFR, BMP, CBC, ANEU, TROPHS, ADIFF #### [place] [address] Creatinine [Mass/Vol] 0.89 mg/dL Normal 0.55-1.02 [facility] Comment on above: Result Comment: Test ing performed on Siemens Dimension EXL analyzer using a modified kinetic Josse technique. Performed By: #### M DW, MG, GFR, BMP, CBC, ANEU, TROPHS, ADIFF #### [place] [address] Electrolyte Balance 7.0 mEq/L Normal 4.0-15.0 [facility] Comment on above: Performed By: #### M DW, MG, GFR, BMP, CBC, ANEU, TROPHS, ADIFF #### [place] [address] Globulin 2.6 G/dL Normal [facility] Comment on above: Performed By: #### M DW, MG, GFR, BMP, CBC, ANEU, TROPHS, ADIFF #### [address] [address] Glucose [Mass/Vol] 92 mg/dL Normal 83-110 [facility] Comment on above: Performed By: #### M DW, MG, GFR, BMP, CBC, ANEU, TROPHS, ADIFF #### [address] [address] Potassium [Moles/Vol] 4.4 mmol/L Normal 3.5-5.1 [facility] Comment on above: Performed By: #### M DW, MG, GFR, BMP, CBC, ANEU, TROPHS, ADIFF #### [address] [address] Sodium [Moles/Vol] 132 mmol/L Low 136-145 [facility] Comment on above: Performed By: #### M DW, MG, GFR, BMP, CBC, ANEU, TROPHS, ADIFF #### [address] [address] Total Protein 6.6 G/dL Normal 6.4-8.2 [facility] Comment on above: Performed By: #### M DW, MG, GFR, BMP, CBC, ANEU, TROPHS, ADIFF #### [address] [address] Urea nitrogen [Mass/Vol] 14 mg/dL Normal 7-18 [facility] Comment on above: Performed By: #### M DW, MG, GFR, BMP, CBC, ANEU, TROPHS, ADIFF #### [address] [address] LABORATORYOrdered By: Jermaine Sellers on 03-12-2024 Albumin DL <= 20 mg/L (U) [Mass/Vol] 139[address] mcg/dL Invalid Interpretation Code AO ADM SS [...] MALBRon 03-12-2024 U Creatinine <13.0 Low 28.0-117.0 [facility] Comment on above: Performed By: #### M DW, MG, GFR, BMP, CBC, ANEU, TROPHS, ADIFF #### [facility] [address] [place], [place] [address] U Microalb [address] mcg/dL Normal [facility] Comment on above: Performed By: #### M DW, MG, GFR, BMP, CBC, ANEU, TROPHS, ADIFF #### [place] [address] [place], [place] [address] U Ratio Alb/Cre Unable to calc Normal 0-30 [facility] Comment on above: Performed By: #### M DW, MG, GFR, BMP, CBC, ANEU, TROPHS, ADIFF #### [place] [address] [place], [place] [address] LABORATORYOrdered By: SYSTEM SYSTEM on 07-12-2022 Albumin [...] Albumin DL <= 20 mg/L (U) [Mass/Vol] [address] mcg/dL Invalid Interpretation Code AO ADM SS [...] Non-Invasive 80 mm[Hg] VICTOR MANUEL PETERSON MD [facility] 02-19-2025 12:03-0500 Heart rate 68 /min VICTOR MANUEL PETERSON MD [facility] 02-19-2025 12:03-0500 Systolic Blood Pressure Non-Invasive 156 mm[Hg] VICTOR MANUEL PETERSON MD [address] [place] [address] 02-19-2025 10:47-0500 Diastolic Blood Pressure Non-Invasive 82 mm[Hg] VICTOR MANUEL PETERSON MD [address] [place] [address] 02-19-2025 10:47-0500 Heart rate 67 /min VICTOR MANUEL PETERSON MD [address] [place] [address] 02-19-2025 10:47-0500 Respiratory rate 18 /min VICTOR MANUEL PETERSON MD [address] [place] [address] 02-19-2025 10:47-0500 Systolic Blood Pressure Non-Invasive 159 mm[Hg] VICTOR MANUEL PETERSON MD [address] [place] [address] 02-19-2025 10:32-0500 Diastolic Blood Pressure Non-Invasive 89 mm[Hg] VICTOR MANUEL PETERSON MD [address] [place] [address] 02-19-2025 10:32-0500 Heart rate 67 /min VICTOR MANUEL PETERSON MD [address] [place] [address] 02-19-2025 10:32-0500 Respiratory rate 18 /min VICTOR MANUEL PETERSON MD [address] [place] [address] 02-19-2025 10:32-0500 Systolic Blood Pressure Non-Invasive 165 mm[Hg] VICTOR MANUEL PETERSON MD [address] [place] [address] 02-19-2025 10:17-0500 Respiratory rate 18 /min VICTOR MANUEL PETERSON MD [address] [place] [address] 02-19-2025 06:30-0500 Body height 157.5 cm VICTOR MANUEL PETERSON MD [address] [place] [address] 02-19-2025 06:30-0500 Body temperature 97.88 [degF] VICTOR MANUEL PETERSON MD [address] [place] [address] 02-19-2025 06:30-0500 Body weight 76.2 kg VICTOR MANUEL PETERSON MD [address] [place] [address] 02-11-2025 13:28-0500 Blood Pressure Cuff Size DONATO NAVARRETE DO [facility] 02-11-2025 13:28-0500 Blood Pressure Location DONATO NAVARRETE DO [facility] 02-11-2025 13:28-0500 Blood Pressure Method DONATO NAVARRETE DO [facility] 02-11-2025 13:28-0500 Diastolic Blood Pressure Non-Invasive 73 mm[Hg] DONATO NAVARRETE DO [facility] 02-11-2025 13:28-0500 Systolic Blood Pressure Non-Invasive 162 mm[Hg] DONATO NAVARRETE DO [facility] 02-11-2025 13:24-0500 Blood Pressure Cuff Size DONATO NAVARRETE DO [facility] 02-11-2025 13:24-0500 Blood Pressure Location DONATO NAVARRETE DO [facility] 02-11-2025 13:24-0500 Blood Pressure Method DONATO NAVARRETE DO [facility] 02-11-2025 13:24-0500 Body temperature 97.34 [degF] DONATO NAVARRETE DO [facility] 02-11-2025 13:24-0500 Diastolic Blood Pressure Non-Invasive 95 mm[Hg] DONATO NAVARRETE DO [facility] 02-11-2025 13:24-0500 Heart rate 77 /min DONATO NAVARRETE DO [facility] 02-11-2025 13:24-0500 Reason For Taking VItal Signs DONATO NAVARRETE DO [facility] 02-11-2025 13:24-0500 Respiratory rate 18 /min DONATO NAVARRETE DO [facility] 02-11-2025 13:24-0500 Systolic Blood Pressure Non-Invasive 186 mm[Hg] DONATO NAVARRETE DO [facility] 08-09-2024 05:30-0400 Heart rate 52 /min HARRY BAILON MD [address] [place] [address] 08-09-2024 05:30-0400 Respiratory rate 16 /min HARRY BAILON MD [address] [place] [address] 08-09-2024 03:30-0400 Blood Pressure Location HARRY BAILON MD [address] [place] [address] 08-09-2024 03:30-0400 Blood Pressure Method HARRY BAILON MD [address] [place] [address] 08-09-2024 03:30-0400 Body temperature 98.24 [degF] HARRY BAILON MD [address] [place] [address] 08-09-2024 03:30-0400 Diastolic Blood Pressure Non-Invasive 46 mm[Hg] HARRY BAILON MD [address] [place] [address] 08-09-2024 03:30-0400 Heart rate 52 /min HARRY BAILON MD [address] [place] [address] 08-09-2024 03:30-0400 Respiratory rate 16 /min HARRY BAILON MD [address] [place] [address] 08-09-2024 03:30-0400 Systolic Blood Pressure Non-Invasive 94 mm[Hg] HARRY BAILON MD [address] [place] [address] 08-09-2024 02:58-0400 Heart rate 51 /min HARRY BAILON MD [address] [place] [address] 08-08-2024 20:58-0400 Body temperature 97.7 [degF] HARRY BAILON MD [address] [place] [address] 08-08-2024 20:58-0400 Diastolic Blood Pressure Non-Invasive 74 mm[Hg] HARRY BAILON MD [address] [place] [address] 08-08-2024 20:58-0400 Respiratory rate 18 /min HARRY BAILON MD [address] [place] [address] 08-08-2024 20:58-0400 Systolic Blood Pressure Non-Invasive 121 mm[Hg] HARRY BAILON MD [address] [place] [address] 08-08-2024 15:10-0400 Diastolic Blood Pressure Non-Invasive 64 mm[Hg] HARRY BAILON MD [address] [place] [address] 08-08-2024 15:10-0400 Systolic Blood Pressure Non-Invasive 121 mm[Hg] HARRY BAILON MD [address] [place] [address] 08-08-2024 14:30-0400 Diastolic blood pressure 4 mm[Hg] HARRY BAILON MD [address] [place] [address] 08-08-2024 14:30-0400 Systolic blood pressure 117 mm[Hg] HARRY BAILON MD [address] [place] [address] 08-08-2024 14:25-0400 Diastolic blood pressure 47 mm[Hg] HARRY BAILON MD [address] [place] [address] 08-08-2024 14:25-0400 Systolic blood pressure 119 mm[Hg] HARRY BAILON MD [address] [place] [address] 08-08-2024 14:20-0400 Diastolic blood pressure 50 mm[Hg] HARRY BAILON MD [address] [place] [address] 08-08-2024 14:20-0400 Systolic blood pressure 106 mm[Hg] HARRY BAILON MD [address] [place] [address] 08-08-2024 13:55-0400 Respiratory Rate - Anes 12 br/min HARRY BAILON MD [address] [place] [address] 08-08-2024 13:54-0400 Respiratory Rate - Anes 12 br/min HARRY BAILON MD [address] [place] [address] 08-08-2024 13:53-0400 Respiratory Rate - Anes 12 br/min HARRY BAILON MD [address] [place] [address] 08-08-2024 13:40-0400 Body temperature 97.97 [degF] HARRY BAILON MD [address] [place] [address] 08-08-2024 13:35-0400 Body temperature 97.95 [degF] HARRY BAILON MD [address] [place] [address] 08-08-2024 13:30-0400 Body temperature 97.97 [degF] HARRY BAILON MD [address] [place] [address] 08-08-2024 07:53-0400 Blood Pressure Location HARRY BAILON MD [address] [place] [address] 08-08-2024 07:53-0400 Blood Pressure Method HARRY BAILON MD [address] [place] [address] 08-08-2024 07:53-0400 Body height 157.5 cm HARRY BAILON MD [address] [place] [address] 08-08-2024 07:53-0400 Body temperature 97.34 [degF] HARRY BAILON MD [address] [place] [address] 08-08-2024 07:53-0400 Body weight 65.9 kg HARRY BAILON MD [address] [place] [address] 08-08-2024 07:53-0400 Heart rate 92 /min HARRY BAILON MD [address] [place] [address] 07-27-2024 12:34-0400 Blood Pressure Cuff Size HARRY BAILON MD [address] [place] [address] 07-27-2024 12:34-0400 Blood Pressure Location HARRY BAILON MD [address] [place] [address] 07-27-2024 12:34-0400 Blood Pressure Method HARRY BAILON MD [address] [place] [address] 07-27-2024 12:34-0400 Body height 158 cm HARRY BAILON MD [address] [place] [address] 07-27-2024 12:34-0400 Body temperature 97.34 [degF] HARRY BAILON MD [address] [place] [address] 07-27-2024 12:34-0400 Body weight 65.6 kg HARRY BAILON MD [address] [place] [address] 07-27-2024 12:34-0400 Body weight 26.28 kg/m2 HARRY BAILON MD [address] [place] [address] 07-27-2024 12:34-0400 Diastolic Blood Pressure Non-Invasive 73 mm[Hg] HARRY BAILON MD [address] [place] [address] 07-27-2024 12:34-0400 Heart rate 106 /min HARRY BAILON MD [address] [place] [address] 07-27-2024 12:34-0400 Systolic Blood Pressure Non-Invasive 152 mm[Hg] HARRY BAILON MD [address] [place] [address] 07-01-2024 15:39-0400 Heart rate 58 /min DR MONIKA AGUSTIN MD [address] [place] [address] 07-01-2024 15:39-0400 Reason For Taking VItal Signs DR MONIKA AGUSTIN MD [address] [place] [address] 07-01-2024 15:07-0400 Heart rate 59 /min DR MONIKA AGUSTIN MD [address] [place] [address] 07-01-2024 15:07-0400 Blood Pressure Cuff Size DR MONIKA AGUSTIN MD [address] [place] [address] 07-01-2024 15:07-[address] MONIKA AGUSTIN MD [address] [place] [address] 07-01-2024 15:07-[address] MONIKA Sanchez MD [address] [place] [address] 07-01-2024 15:07-0400 Diastolic Blood Pressure Non-Invasive 63 mm[Hg] DR MONIKA AGUSTIN MD [address] [place] [address] 07-01-2024 15:07-0400 Mean blood pressure 103 mm[Hg] DR MONIKA AGUSTIN MD [address] [place] [address] 07-01-2024 15:07-0400 Reason For Taking VItal Signs DR MONIKA AGUSTIN MD [address] [place] [address] 07-01-2024 15:07-0400 Respiratory rate 18 /min DR MONIKA AGUSTIN MD [address] [place] [address] 07-01-2024 15:07-0400 Systolic Blood Pressure Non-Invasive 173 mm[Hg] DR MONIKA AGUSTIN MD [address] [place] [address] 07-01-2024 11:07-0400 Blood Pressure Cuff Size DR MONIKA AGUSTIN MD [address] [place] [address] 07-01-2024 11:07-[address] MONIKA AGUSTIN MD [address] [place] [address] 07-01-2024 11:07-[address] MONIKA Sanchez MD [address] [place] [address] 07-01-2024 11:07-0400 Body temperature 97.88 [degF] DR MONIKA AGUSTIN MD [address] [place] [address] 07-01-2024 11:07-0400 Diastolic Blood Pressure Non-Invasive 62 mm[Hg] DR MONIKA AGUSTIN MD [address] [place] [address] 07-01-2024 11:07-0400 Heart rate 60 /min DR MONIKA AGUSTIN MD [address] [place] [address] 07-01-2024 11:07-0400 Reason For Taking VItal Signs DR MONIKA AGUSTIN MD [address] [place] [address] 07-01-2024 11:07-0400 Respiratory rate 18 /min DR MONIKA AGUSTIN MD [address] [place] [address] 07-01-2024 11:07-0400 Systolic Blood Pressure Non-Invasive 150 mm[Hg] DR MONIKA AGUSTIN MD [address] [place] [address] 07-01-2024 07:03-0400 Diastolic Blood Pressure Non-Invasive 60 mm[Hg] DR MONIKA AGUSTIN MD [address] [place] [address] 07-01-2024 07:03-0400 Systolic Blood Pressure Non-Invasive 170 mm[Hg] DR MONIKA AGUSTIN MD [address] [place] [address] 07-01-2024 07:03-0400 Blood Pressure Cuff Size DR MONIKA AGUSTIN MD [address] [place] [address] 07-01-2024 07:03-[address] MONIKA AGUSTIN MD [address] [place] [address] 07-01-2024 07:03-[address] MONIKA Sanchez MD [address] [place] [address] 07-01-2024 07:03-0400 Heart rate 65 /min DR MONIKA AGUSTIN MD [address] [place] [address] 07-01-2024 07:03-0400 Respiratory rate 18 /min DR MONIKA AGUSTIN MD [address] [place] [address] 07-01-2024 06:43-0400 Heart rate 60 /min DR MONIKA AGUSTIN MD [address] [place] [address] 07-01-2024 03:33-0400 Mean blood pressure 109 mm[Hg] DR MONIKA AGUSTIN MD [address] [place] [address] 07-01-2024 00:15-0400 Mean blood pressure 103 mm[Hg] DR MONIKA AGUSTIN MD [address] [place] [address] 07-01-2024 00:12-0400 Body temperature 97.7 [degF] DR MONIKA AGUSTIN MD [address] [place] [address] 06-30-2024 20:06-0400 Body temperature 98.06 [degF] DR MONIKA AGUSTIN MD [address] [place] [address] 06-30-2024 19:26-0400 Heart rate 54 /min DR MONIKA AGUSTIN MD [address] [place] [address] 06-30-2024 18:56-0400 Heart rate 55 /min DR MONIKA AGUSTIN MD [address] [place] [address] 06-30-2024 16:00-0400 Heart rate 59 /min DR MONIKA AGUSTIN MD [address] [place] [address] 06-30-2024 11:40-0400 Heart rate 56 /min DR MONIKA AGUSTIN MD [address] [place] [address] 06-29-2024 10:12-0400 Body temperature 97.34 [degF] DR MONIKA AGUSTIN MD [address] [place] [address] 06-29-2024 10:10-0400 Respiratory Rate - Anes 21 br/min DR MONIKA AGUSTIN MD [address] [place] [address] 06-29-2024 10:05-0400 Respiratory Rate - Anes 17 br/min DR MONIKA AGUSTIN MD [address] [place] [address] 06-29-2024 10:00-0400 Respiratory Rate - Anes 22 br/min DR MONIKA AGUSTIN MD [address] [place] [address] 06-28-2024 05:22-0400 Body height [address] MONIKA AGUSTIN MD [address] [place] [address] 06-28-2024 05:22-0400 Body weight 63.[address] MONIKA AGUSTIN MD [address] [place] [address] 06-28-2024 05:22-0400 Body weight 22.91 kg/m2 DR MONIKA AGUSTIN MD [address] [place] [address] 06-28-2024 05:06-0400 Body weight 63.[address] MONIKA AGUSTIN MD [address] [place] [address] 06-19-2024 09:59-0400 Diastolic Blood Pressure Non-Invasive 74 mm[Hg] ANASTASIYA RANDEE [employer] OPERATOR[employer] M[employer]ER [address] [place] [address] 06-19-2024 09:59-0400 Heart rate 64 /min ANASTASIYA RANDEE [employer] OPERATOR-DYE MIXER [address] [place] [address] 06-19-2024 09:59-0400 Respiratory rate 16 /min ANASTASIYA RANDEE [employer] OPERATOR-DYE MIXER [address] [place] [address] 06-19-2024 09:59-0400 Systolic Blood Pressure Non-Invasive 146 mm[Hg] ANASTASIYA RANDEE [employer] OPERATOR-DYE MIXER [address] [place] [address] 06-19-2024 09:50-0400 Diastolic Blood Pressure Non-Invasive 66 mm[Hg] ANASTASIYA RANDEE [employer] OPERATOR-DYE MIXER [address] [place] [address] 06-19-2024 09:50-0400 Heart rate 58 /min ANASTASIYA RANDEE [employer] OPERATOR-DYE MIXER [address] [place] [address] 06-19-2024 09:50-0400 Respiratory rate 16 /min ANASTASIYA RANDEE [employer] OPERATOR-DYE MIXER [address] [place] [address] 06-19-2024 09:50-0400 Systolic Blood Pressure Non-Invasive 159 mm[Hg] ANASTASIYA RANDEE [employer] OPERATOR-DYE M[employer]ER [address] [place] [address] 06-19-2024 09:45-0400 Body temperature 97.16 [degF] ANASTASIYA RANDEE [employer] OPERATOR-[employer]YE MIXER [address] [place] [address] 06-19-2024 09:45-0400 Diastolic Blood Pressure Non-Invasive 74 mm[Hg] ANASTASIYA RANDEE [employer] OPERATOR-[employer] M[employer]ER [address] [place] [address] 06-19-2024 09:45-0400 Heart rate 59 /min ANASTASIYA RANDEE [employer] OPERATOR-DYE MIXER [address] [place] [address] 06-19-2024 09:45-0400 Heart rate 80 /min ANASTASIYA RANDEE [employer] OPERATOR-DYE MIXER [address] [place] [address] 06-19-2024 09:45-0400 Respiratory rate 16 /min ANASTASIYA RANDEE [employer] OPERATOR-DYE M[employer]ER [address] [place] [address] 06-19-2024 09:45-0400 Respiratory Rate - Anes 14 br/min ANASTASIYA RANDEE [employer] OPERATOR-DYE MIXER [address] [place] [address] 06-19-2024 09:45-0400 Systolic Blood Pressure Non-Invasive 159 mm[Hg] ANASTASIYA RANDEE [employer] OPERATOR-[employer]YE MIXER [address] [place] [address] 06-19-2024 09:40-0400 Respiratory Rate - Anes 24 br/min ANASTASIYA RANDEE [employer] OPERATOR-DYE MIXER [address] [place] [address] 06-19-2024 09:35-0400 Respiratory Rate - Anes 14 br/min ANASTASIYA RANDEE [employer] OPERATOR-DYE MIXER [address] [place] [address] 06-19-2024 06:34-0400 Body height 160 cm ANASTASIYA RANDEE [employer] OPERATOR-[employer]YE M[employer]ER [address] [place] [address] 06-19-2024 06:34-0400 Body temperature 97.52 [degF] ANASTASIYA RANDEE [employer] OPERATOR-[employer] M[employer]ER [address] [place] [address] 06-19-2024 06:34-0400 Body weight 61.3 kg ANASTASIYA RANDEE [employer] OPERATOR[employer] M[employer] [address] [place] [address] 06-19-2024 06:34-0400 Heart rate 91 /min ANASTASIYA RANDEE [employer] OPERATOR[employer] M[employer]ER [address] [place] [address] 05-29-2024 13:50-0500 Body temperature 98.06 [degF] DANIELLA KAPPER [employer] OPERATOR[employer] M[employer] [facility] 05-29-2024 13:50-0500 Diastolic Blood Pressure Non-Invasive 79 mm[Hg] DANIELLA KAPPER [employer] OPERATOR-DYE M[employer]ER [facility] 05-29-2024 13:50-0500 Heart rate 88 /min DANIELLA KAPPER [employer] OPERATOR-D[employer] MIXER [facility] 05-29-2024 13:50-0500 Reason For Taking VItal Signs DANIELLA KAPPER [employer] OPERATOR-DYE MIXER [facility] 05-29-2024 13:50-0500 Respiratory rate 18 /min DANIELLA KAPPER [employer] OPERATOR-DYE MIXER [facility] 05-29-2024 13:50-0500 Systolic Blood Pressure Non-Invasive 106 mm[Hg] DANIELLA KAPPER [employer] OPERATOR-DYE MIXER [facility] 05-29-2024 11:35-0500 Body temperature 98.06 [degF] DANIELLA KAPPER [employer] OPERATOR-DYE MIXER [facility] 05-29-2024 11:35-0500 Diastolic Blood Pressure Non-Invasive 88 mm[Hg] DANIELLA KAPPER [employer] OPERATOR-DYE MIXER [facility] 05-29-2024 11:35-0500 Heart rate 81 /min DANIELLA KAPPER [employer] OPERATOR-DYE MIXER [facility] 05-29-2024 11:35-0500 Reason For Taking VItal Signs DANIELLA KAPPER [employer] OPERATOR-DYE MIXER [facility] 05-29-2024 11:35-0500 Respiratory rate 18 /min DANIELLA KAPPER [employer] OPERATOR-DYE MIXER [facility] 05-29-2024 11:35-0500 Systolic Blood Pressure Non-Invasive 128 mm[Hg] DANIELLA KAPPER [employer] OPERATOR-D[employer] MIXER [facility] 05-29-2024 09:01-0500 Heart rate 80 /min DANIELLA KAPPER [employer] OPERATOR-DYE MIXER [facility] 05-29-2024 08:58-0500 Blood Pressure Location DANIELLA KAPPER [employer] OPERATOR-[employer] M[employer] [facility] 05-29-2024 08:58-0500 Blood Pressure Method DANIELLA HERNANDEZ [employer] OPERATOR-C INFECTION PREVENTION SPECIALIST [facility] 05-29-2024 08:58-0500 Body temperature 98.06 [degF] DANIELLA HERNANDEZ [employer] OPERATOR-[employer] M[employer]ER [facility] 05-29-2024 08:58-0500 Diastolic Blood Pressure Non-Invasive 86 mm[Hg] DANIELLA HERNANDEZ [employer] OPERATOR-D[employer] MIXER [facility] 05-29-2024 08:58-0500 Heart rate 78 /min DANIELLA HERNANDEZ [employer] OPERATOR-DYE MIXER [facility] 05-29-2024 08:58-0500 Reason For Taking VItal Signs DANIELLA HERNANDEZ [employer] OPERATOR-DYE MIXER [facility] 05-29-2024 08:58-0500 Systolic Blood Pressure Non-Invasive 125 mm[Hg] DANIELLA MCDONOUGHER [employer] OPERATOR-D[employer] MIXER [facility] 05-29-2024 07:55-0500 Respiratory rate 18 /min DANIELLA MCDONOUGHER [employer] OPERATOR-DYE MIXER [facility] 05-29-2024 07:35-0500 Heart rate 77 /min DANIELLA MCDONOUGHER [employer] OPERATOR-DYE MIXER [facility] 05-28-2024 18:56-0500 Heart rate 77 /min DANIELLA CEASARER [employer] OPERATOR-DYE MIXER [facility] 05-28-2024 17:38-0500 Heart rate 80 /min DANIELLA KAPPER [employer] OPERATOR-DYE MIXER [facility] 05-28-2024 17:36-0500 Blood Pressure Location DANIELLA CEASARER [employer] OPERATOR-DYE MIXER [facility] 05-28-2024 17:36-0500 Blood Pressure Method DANIELLA HERNANDEZ APRN-C INFECTION PREVENTION SPECIALIST [facility] 05-28-2024 17:36-0500 Heart rate 80 /min DANIELLA HERNANDEZ [employer] OPERATOR-DYE MIXER [facility] 05-28-2024 08:45-0500 Heart rate 81 /min DANIELLA HERNANDEZ [employer] OPERATOR-DYE MIXER [facility] 05-23-2024 14:01-0500 Body height 160 cm DANIELLA HERNANDEZ [employer] OPERATOR-DYE MIXER [facility] 05-23-2024 14:01-0500 Body weight 63.8 kg DANIELLA HERNANDEZ [employer] OPERATOR-DYE MIXER [facility] 05-23-2024 14:01-0500 Body weight 24.92 kg/m2 DANIELLA HERNANDEZ [employer] OPERATOR-DYE MIXER [facility] 05-23-2024 10:31-0500 Body temperature 98.06 [degF] JULY EZEKIEL [employer] OPERATOR-D[employer] MIXER [facility] 05-23-2024 10:31-0500 Diastolic Blood Pressure Non-Invasive 65 mm[Hg] JULY EZEKIEL [employer] OPERATOR-DYE MIXER [facility] 05-23-2024 10:31-0500 Heart rate 64 /min JULY EZEKIEL [employer] OPERATOR-DYE MIXER [facility] 05-23-2024 10:31-0500 Reason For Taking VItal Signs JULY EZEKIEL [employer] OPERATOR-DYE MIXER [facility] 05-23-2024 10:31-0500 Respiratory rate 18 /min JULY EZEKIEL [employer] OPERATOR-DYE MIXER [facility] 05-23-2024 10:31-0500 Systolic Blood Pressure Non-Invasive 131 mm[Hg] JULY MEYERS CHUCK [employer] OPERATOR-D[employer] MIXER [facility] 05-23-2024 08:30-0500 Heart rate 75 /min JULY MEYERS CHUCK [employer] OPERATOR-DYE MIXER [facility] 05-23-2024 06:36-0500 Body temperature 97.88 [degF] JULY MEYERS CHUCK [employer] OPERATOR-DYE MIXER [facility] 05-23-2024 06:36-0500 Diastolic Blood Pressure Non-Invasive 82 mm[Hg] JULY MEYERS CHUCK [employer] OPERATOR-DYE MIXER [facility] 05-23-2024 06:36-0500 Heart rate 72 /min JULY MEYERS CHUCK [employer] OPERATOR-DYE MIXER [facility] 05-23-2024 06:36-0500 Reason For Taking VItal Signs JULY MEYERS CHUCK [employer] OPERATOR-DYE MIXER [facility] 05-23-2024 06:36-0500 Respiratory rate 18 /min JULY MEYERS CHUCK [employer] OPERATOR-DYE MIXER [facility] 05-23-2024 06:36-0500 Systolic Blood Pressure Non-Invasive 135 mm[Hg] JULY MEYERS CHUCK [employer] OPERATOR-DYE MIXER [facility] 05-23-2024 02:32-0500 Body temperature 98.06 [degF] JULY MEYERS CHUCK [employer] OPERATOR-DYE MIXER [facility] 05-23-2024 02:32-0500 Diastolic Blood Pressure Non-Invasive 88 mm[Hg] JULY MEYERS CHUCK [employer] OPERATOR-DYE MIXER [facility] 05-23-2024 02:32-0500 Heart rate 64 /min JULY MEYERS CHUCK [employer] OPERATOR-DYE MIXER [facility] 05-23-2024 02:32-0500 Reason For Taking VItal Signs JULY MEYERS CHUCK [employer] OPERATOR-DYE MIXER [facility] 05-23-2024 02:32-0500 Respiratory rate 18 /min JULY MEYERS CHUCK [employer] OPERATOR-DYE MIXER [facility] 05-23-2024 02:32-0500 Systolic Blood Pressure Non-Invasive 138 mm[Hg] JULY MEYERS CHUCK [employer] OPERATOR-DYE MIXER [facility] 05-22-2024 23:28-0500 Heart rate 68 /min JULY MEYERS CHUCK [employer] OPERATOR-DYE MIXER [facility] 05-22-2024 19:50-0500 Heart rate 75 /min JULY MEYERS CHUCK [employer] OPERATOR-DYE MIXER [facility] 05-22-2024 18:03-0500 Heart rate 67 /min JULY MEYERS CHUCK [employer] OPERATOR-DYE MIXER [facility] 05-22-2024 07:58-0500 Heart rate 84 /min JULY MEYERS CHUCK [employer] OPERATOR-DYE MIXER [facility] 05-22-2024 07:45-0500 Blood Pressure Location JULY MEYERS CHUCK [employer] OPERATOR-DYE MIXER [facility] 05-22-2024 07:45-0500 Blood Pressure Method JULY MEYERS CHUCK [employer] OPERATOR-DYE MIXER [facility] 05-22-2024 03:56-0500 Body temperature 98.78 [degF] JULY MEYERS CHUCK [employer] OPERATOR-DYE MIXER [facility] 05-22-2024 03:56-0500 Heart rate 79 /min JULY MEYERS CHUCK [employer] OPERATOR-DYE MIXER [facility] 05-21-2024 17:25-0500 Blood Pressure Location JULY EZEKIEL [employer] OPERATOR-DYE MIXER [facility] 05-21-2024 17:25-0500 Blood Pressure Method JULY EZEKIEL [employer] OPERATOR-DYE MIXER [facility] 05-21-2024 02:37-0500 Body temperature 97.7 [degF] JULY MEYERS CHUCK [employer] OPERATOR-DYE MIXER [facility] 05-20-2024 22:36-0500 Body temperature 97.88 [degF] JULY MEYERS CHUCK [employer] OPERATOR-DYE MIXER [facility] 05-20-2024 14:00-0500 Heart rate 105 /min DANIELLA HERNANDEZ [employer] OPERATOR-DYE MIXER [facility] 05-20-2024 01:45-0500 Body height 160 cm JULY EZEKIEL [employer] OPERATOR-DYE MIXER [facility] 05-20-2024 01:45-0500 Body weight 63.8 kg JULY MEYERS CHUCK [employer] OPERATOR-DYE MIXER [facility] 05-20-2024 01:45-0500 Body weight 24.92 kg/m2 JULY MEYERS CHUCK [employer] OPERATOR-DYE MIXER [facility] 05-20-2024 00:39-0500 Diastolic Blood Pressure Non-Invasive 110 mm[Hg] DANIELLA HERNANDEZ [employer] OPERATOR-D[employer] MIXER [facility] 05-20-2024 00:39-0500 Heart rate 110 /min DANIELLA HERNANDEZ [employer] OPERATOR-DYE MIXER [facility] 05-20-2024 00:39-0500 Respiratory rate 30 /min DANIELLA HERNANDEZ [employer] OPERATOR-DYE MIXER [facility] 05-20-2024 00:39-0500 Systolic Blood Pressure Non-Invasive 160 mm[Hg] DANIELLA MCDONOUGHER [employer] OPERATOR-DYE MIXER [facility] 05-20-2024 00:30-0500 Heart rate 109 /min DANIELLA KAPPER [employer] OPERATOR-DYE MIXER [facility] 05-20-2024 00:17-0500 Diastolic Blood Pressure Non-Invasive 138 mm[Hg] DANIELLA KAPPER [employer] OPERATOR-DYE MIXER [facility] 05-20-2024 00:17-0500 Heart rate 71 /min DANIELLA KAPPER [employer] OPERATOR-DYE MIXER [facility] 05-20-2024 00:17-0500 Respiratory rate 30 /min DANIELLA KAPPER [employer] OPERATOR-DYE MIXER [facility] 05-20-2024 00:17-0500 Systolic Blood Pressure Non-Invasive 183 mm[Hg] DANIELLA KAPPER [employer] OPERATOR-DYE MIXER [facility] 05-20-2024 00:14-0500 Respiratory rate 28 /min DANIELLA KAPPER [employer] OPERATOR-DYE MIXER [facility] 05-20-2024 00:02-0500 Diastolic Blood Pressure Non-Invasive 134 mm[Hg] DANIELLA KAPPER [employer] OPERATOR-DYE MIXER [facility] 05-20-2024 00:02-0500 Systolic Blood Pressure Non-Invasive 198 mm[Hg] DANIELLA KAPPER [employer] OPERATOR-DYE MIXER [facility] 05-19-2024 23:43-0500 Heart rate 68 /min DANIELLA KAPPER [employer] OPERATOR-DYE MIXER [facility] 05-19-2024 23:40-0500 Heart rate 65 /min DANIELLA KAPPER [employer] OPERATOR-DYE MIXER [facility] 05-19-2024 20:30-0500 Body temperature 97.52 [degF] DANIELLA KAPPER [employer] OPERATOR-DYE MIXER [facility] 05-19-2024 20:30-0500 Heart rate 59 /min DANIELLA KAPPER [employer] OPERATOR-DYE MIXER [facility] 05-19-2024 20:30-0500 Reason For Taking VItal Signs DANIELLALatanya MCDONOUGHER [employer] OPERATOR-DYE MIXER [facility] 05-19-2024 11:05-0500 Heart rate 61 /min DANIELLA KAPPER [employer] OPERATOR-DYE MIXER [facility] 05-19-2024 10:32-0500 Heart rate 62 /min DANIELLA KAPPER [employer] OPERATOR-DYE MIXER [facility] 05-19-2024 08:31-0500 Body temperature 97.52 [degF] DANIELLA KAPPER [employer] OPERATOR-DYE MIXER [facility] 05-19-2024 04:05-0500 Body temperature 98.06 [degF] DANIELLA KAPPER [employer] OPERATOR-DYE MIXER [facility] 05-18-2024 21:07-0500 Body height 160 cm DANIELLA KAPPER [employer] OPERATOR-DYE MIXER [facility] 05-18-2024 21:07-0500 Body weight 63 kg DANIELLA KAPPER [employer] OPERATOR-DYE MIXER [facility] 05-18-2024 21:07-0500 Body weight 24.61 kg/m2 DANIELLA KAPPER [employer] OPERATOR-DYE MIXER [facility] 05-18-2024 17:29-0500 Heart rate 54 /min DR ABHIJEET AGUILAR MD [facility] 05-18-2024 15:41-0500 Diastolic Blood Pressure Non-Invasive 68 mm[Hg] DR ABHIJEET AGUILAR MD [address] [place] [address] 05-18-2024 15:41-0500 Mean blood pressure 85 mm[Hg] DR ABHIJEET AGUILAR MD [address] [place] [address] 05-18-2024 15:41-0500 Systolic Blood Pressure Non-Invasive 136 mm[Hg] DR ABHIJEET AGUILAR MD [address] [place] [address] 05-18-2024 15:41-0500 Heart rate 59 /min DR ABHIJEET AGUILAR MD [address] [place] [address] 05-18-2024 15:41-0500 Reason For Taking VItal Signs DR ABHIJEET AGUILAR MD [address] [place] [address] 05-18-2024 15:40-0500 Respiratory rate 18 /min DR ABHIJEET AGUILAR MD [address] [place] [address] 05-18-2024 11:45-0500 Body temperature 97.52 [degF] DR ABHIJEET AGUILAR MD [address] [place] [address] 05-18-2024 11:05-0500 Heart rate 55 /min DR ABHIJEET AGUILAR MD [address] [place] [address] 05-18-2024 11:05-0500 Blood Pressure Cuff Size DR ABHIJEET AGUILAR MD [address] [place] [address] 05-18-2024 11:05-[address] ABHIJEET AGUILAR MD [address] [place] [address] 05-18-2024 11:05-[address] ABHIJEET AGUILAR MD [address] [place] [address] 05-18-2024 11:05-0500 Diastolic Blood Pressure Non-Invasive 76 mm[Hg] DR ABHIJEET AGUILAR MD [address] [place] [address] 05-18-2024 11:05-0500 Respiratory rate 18 /min DR ABHIJEET AGUILAR MD [address] [place] [address] 05-18-2024 11:05-0500 Systolic Blood Pressure Non-Invasive 158 mm[Hg] DR ABHIJEET AGUILAR MD [address] [place] [address] 05-18-2024 10:50-0500 Diastolic Blood Pressure Non-Invasive 74 mm[Hg] DR ABHIJEET AGUILAR MD [address] [place] [address] 05-18-2024 10:50-0500 Systolic Blood Pressure Non-Invasive 144 mm[Hg] DR ABHIJEET AGUILAR MD [address] [place] [address] 05-18-2024 10:45-0500 Blood Pressure Cuff Size DR ABHIJEET AGUILAR MD [address] [place] [address] 05-18-2024 10:45-[address] ABHIJEET AGUILAR MD [address] [place] [address] 05-18-2024 10:45-[address] ABHIJEET AGUILAR MD [address] [place] [address] 05-18-2024 10:45-0500 Reason For Taking VItal Signs DR ABHIJEET AGUILAR MD [address] [place] [address] 05-18-2024 10:45-0500 Respiratory rate 18 /min DR ABHIJEET AGUILAR MD [address] [place] [address] 05-18-2024 10:23-0500 Body temperature 97.16 [degF] DR ABHIJEET AGUILAR MD [address] [place] [address] 05-18-2024 10:20-0500 Respiratory Rate - Anes 29 br/min DR ABHIJEET AGUILAR MD [address] [place] [address] 05-18-2024 10:15-0500 Respiratory Rate - Anes 25 br/min DR ABHIJEET AGUILAR MD [address] [place] [address] 05-18-2024 10:10-0500 Respiratory Rate - Anes 0 br/min DR ABHIJEET AGUILAR MD [address] [place] [address] 05-18-2024 08:38-0500 Heart rate 86 /min DR ABHIJEET AGUILAR MD [address] [place] [address] 05-18-2024 08:29-0500 Blood Pressure Cuff Size DR ABHIJEET AGUILAR MD [address] [place] [address] 05-18-2024 08:29-[address] ABHIJEET AGUILAR MD [address] [place] [address] 05-18-2024 08:29-[address] ABHIJEET AGUILAR MD [address] [place] [address] 05-18-2024 08:29-0500 Body temperature 97.88 [degF] DR ABHIJEET AGUILAR MD [address] [place] [address] 05-18-2024 08:29-0500 Reason For Taking VItal Signs DR ABHIJEET AGUILAR MD [address] [place] [address] 05-18-2024 04:52-0500 Body temperature 97.52 [degF] DR ABHIJEET AGUILAR MD [address] [place] [address] 05-17-2024 23:02-0500 Mean blood pressure 84 mm[Hg] DR ABHIJEET AGUILAR MD [address] [place] [address] 05-17-2024 17:22-0500 Heart rate 102 /min DR ABHIJEET AGUILAR MD [address] [place] [address] 05-17-2024 11:19-0500 Body temperature 97.7 [degF] DR ABHIJEET AGUILAR MD [address] [place] [address] 05-17-2024 11:00-0500 Body temperature 97.52 [degF] DR ABHIJEET AGUILAR MD [address] [place] [address] 05-17-2024 09:16-0500 Heart rate 99 /min DR ABHIJEET AGUILAR MD [address] [place] [address] 05-16-2024 08:02-0500 Mean blood pressure 103 mm[Hg] DR ABHIJEET AGUILAR MD [address] [place] [address] 05-16-2024 07:39-0500 Heart rate 76 /min DR ABHIJEET AGUILAR MD [address] [place] [address] 05-16-2024 00:02-0500 Heart rate 69 /min DR ABHIJEET AGUILAR MD [address] [place] [address] 05-15-2024 16:30-0500 Heart rate 78 /min DR ABHIJEET AGUILAR MD [facility] 05-13-2024 16:44-0500 Body height [address] ABHIJEET AGUILAR MD [facility] 05-13-2024 16:44-0500 Body weight 65.[address] ABHIJEET AGUILAR MD [facility] 05-13-2024 16:44-0500 Body weight 25.74 kg/m2 DR ABHIJEET AGUILAR MD [facility] 05-13-2024 15:00-0500 Diastolic Blood Pressure Non-Invasive 69 mm[Hg] DR TERRIE SIMS DO [facility] 05-13-2024 15:00-0500 Heart rate 103 /min DR TERRIE SIMS DO [facility] 05-13-2024 15:00-0500 Mean blood pressure 88 mm[Hg] DR TERRIE SIMS DO [facility] 05-13-2024 15:00-0500 Respiratory rate 26 /min DR TERRIE SIMS DO [facility] 05-13-2024 15:00-0500 Systolic Blood Pressure Non-Invasive 135 mm[Hg] DR TERRIE SIMS DO [facility] 05-13-2024 14:00-0500 Diastolic Blood Pressure Non-Invasive 71 mm[Hg] DR TERRIE SIMS DO [facility] 05-13-2024 14:00-0500 Heart rate 90 /min DR TERRIE SIMS DO [facility] 05-13-2024 14:00-0500 Systolic Blood Pressure Non-Invasive 127 mm[Hg] DR TERRIE SIMS DO [facility] 05-13-2024 13:00-0500 Diastolic Blood Pressure Non-Invasive 112 mm[Hg] DR TERRIE SIMS DO [facility] 05-13-2024 13:00-0500 Heart rate 123 /min DR TERRIE SIMS DO [facility] 05-13-2024 13:00-0500 Respiratory rate 29 /min DR TERRIE SIMS DO [facility] 05-13-2024 13:00-0500 Systolic Blood Pressure Non-Invasive 173 mm[Hg] DR TERRIE SIMS DO [facility] 05-13-2024 12:40-0500 Reason For Taking VItal Signs DR TERRIE ISMS DO [facility] 05-13-2024 12:26-0500 Heart rate 137 /min DR TERRIE SIMS DO [facility] 05-13-2024 12:26-0500 Mean blood pressure 109 mm[Hg] DR TERRIE SIMS DO [facility] 05-13-2024 11:52-0500 Heart rate 131 /min DR TERRIE SIMS DO [facility] 05-13-2024 11:28-05[address] Blood Pressure Cuff Size DR TERRIE SIMS DO [facility] 05-13-2024 11:28-[address] TERRIE SIMS DO [facility] 05-13-2024 11:28-[address] TERRIE SIMS DO [facility] 05-13-2024 11:28-0500 Body temperature 98.24 [degF] DR TERRIE SIMS DO [facility] 05-13-2024 11:28-0500 Body weight 64.[address] TERRIE SIMS DO [facility] 05-13-2024 11:28-0500 Heart rate 130 /min DR TERRIE SIMS DO [facility] 02-17-2021 17:50-0500 Body height 160 cm JODY GIRALDO MD [facility] 02-17-2021 17:50-0500 Body temperature 98.24 [degF] JODY GIRALDO MD [facility] 02-17-2021 17:50-0500 Body weight 63.6 kg JODY GIRALDO MD [facility] 02-17-2021 17:50-0500 Diastolic blood pressure 75 mm[Hg] JODY GIRALDO MD [facility] 02-17-2021 17:50-0500 Heart rate 78 /min JODY GIRALDO MD [facility] 02-17-2021 17:50-0500 Mean blood pressure 101 mm[Hg] JODY GIRALDO MD [facility] 02-17-2021 17:50-0500 Respiratory rate 16 /min JODY GIRALDO MD [facility] 02-17-2021 17:50-0500 Systolic blood pressure 154 mm[Hg] JODY GIRALDO MD [facility] Encounters Encounter Date Encounter Type Care Provider Facility Start: 02-19-2025 End: 02-19-2025 ambulatory VICTOR MANUEL PETERSON MD Facility:A Start: 02-19-2025 End: 02-19-2025 SAME DAY STAY VICTOR MANUEL PETERSON MD [facility] Start: 02-15-2025 End: 02-15-2025 ambulatory ASIM FISH BYPRODUCTS OPERATOR-DYE MIXER Facility:[facility] Start: 02-15-2025 End: 02-15-2025 Patient encounter procedure ASIM FISH [employer]PRODU[employer] OPERATOR-DYE MIXER [facility] Start: 02-11-2025 End: 02-11-2025 ambulatory DONATO E NAVARRETE DO Facility:[facility] Start: 02-11-2025 End: 02-11-2025 SAME DAY STAY DONATO E NAVARRETE DO [facility] Start: 01-11-2025 End: 01-11-2025 ambulatory DONATO E NAVARRETE DO Facility:[facility] Start: 01-11-2025 End: 01-11-2025 Patient encounter procedure DONATO E NAVARRETE DO [facility] Start: 01-08-2025 End: 01-08-2025 ambulatory ASIM FISH [employer]PRODU[employer] OPERATOR-DYE MIXER Facility:[facility] Start: 01-08-2025 End: 01-08-2025 Patient encounter procedure ASIM FISH [employer]PRODUCTS OPERATOR-DYE MIXER [facility] Start: 01-01-2025 End: 01-01-2025 ambulatory ASIM FISH [employer]PRODUCTS OPERATOR-DYE MIXER Facility:[facility] Start: 01-01-2025 End: 01-01-2025 Patient encounter procedure ASIM DIEHL [employer]PRODUCTS OPERATOR-DYE MIXER [facility] Start: 09-12-2024 End: 09-16-2024 ambulatory DONATO NAVARRETE DO Facility:[facility] Start: 09-12-2024 End: 09-16-2024 Encounter for general adult medical examination without abnormal findings DONATO NAVARRETE DO Facility:[facility] Start: 09-12-2024 End: 09-16-2024 Outreach Lab DONATO NAVARRETE DO [facility] Start: 08-27-2024 End: 09-01-2024 Evaluation and management of inpatient HARRY BAILON MD Facility:A Start: 08-21-2024 End: 08-21-2024 ambulatory EMILIANO ELVIS DO Facility:[facility] Start: 08-21-2024 End: 08-21-2024 Patient encounter procedure ASIM DIEHL [employer]PRODU[employer] OPERATOR-DYE MIXER [facility] Start: 08-08-2024 End: 08-09-2024 ambulatory EMILIANO ELVIS DO Facility:[facility] Start: 08-08-2024 End: 08-09-2024 Observation HARRY BAILON MD [facility] Start: 07-27-2024 End: 07-27-2024 Admission to establishment HARRY BAILON MD [facility] Start: 07-27-2024 End: 07-27-2024 ambulatory [facility] Facility:A Start: 07-27-2024 Encounter for other preprocedural examination HARRY BAILON MD [facility] Start: 07-19-2024 End: 07-19-2024 ambulatory [facility] Facility:[facility] Start: 07-05-2024 End: 07-05-2024 Emergency department patient visit [facility] Facility:[facility] Start: 06-28-2024 End: 07-01-2024 Evaluation and management of inpatient DR MONIKA AGUSTIN MD [facility] Start: 06-28-2024 End: 06-28-2024 Emergency department patient visit DR MONIKA AGUSTIN MD Facility:[facility] Start: 06-26-2024 End: 06-26-2024 [facility] Start: 06-19-2024 End: 06-19-2024 ambulatory [facility] Facility:A Start: 06-19-2024 End: 06-19-2024 SAME DAY STAY ANASTASIYA Tobias RANDEE BYPRODUCTS OPERATOR-DYE MIXER [facility] Start: 05-23-2024 End: 05-29-2024 Evaluation and management of inpatient DANIELLA HERNANDEZ BYPRODUCTS OPERATOR-DYE MIXER [facility] Start: 05-20-2024 End: 05-23-2024 Evaluation and management of inpatient RHINA FALCON [employer]PRODUCTS OPERATOR-DYE MIXER [facility] Start: 05-18-2024 End: 05-20-2024 Evaluation and management of inpatient DANIELLA HERNANDEZ [employer]PRODUCTS OPERATOR-DYE MIXER [facility] Start: 05-13-2024 End: 05-18-2024 Evaluation and management of inpatient DR ABHIJEET AGUILAR MD [facility] Start: 05-13-2024 End: 05-13-2024 Emergency department patient visit DR TERRIE SIMS DO [facility] Start: 04-13-2024 End: 04-13-2024 [facility] Start: 04-13-2024 End: 04-13-2024 Patient encounter procedure EMILIANO LEAL DO [facility] Start: 03-12-2024 End: 03-12-2024 ambulatory EMILIANO LEAL DO Facility:[facility] Start: 03-12-2024 End: 03-12-2024 Patient encounter procedure EMILIANO LEAL DO [facility] Start: 11-14-2023 ambulatory KEILY Madi JOYCE JORGE DO Facility:[facility] Start: 08-09-2023 End: 08-09-[address] MAXIMINO LIM DO Facility:[facility] Start: 07-12-2022 End: 07-12-2022 Patient encounter procedure TANIA HERNANDEZ MD [facility] Start: 07-08-2022 End: 07-08-2022 Patient encounter procedure TANIA HERNANDEZ MD [facility] Start: 05-26-2022 End: 05-26-2022 Patient encounter procedure TANIA HERNANDEZ MD [facility] Start: 03-11-2022 End: 03-11-2022 Patient encounter procedure EMILIANO LEAL DO [facility] Start: 10-27-2021 End: 12-03-2021 Physical therapy management EMILIANO LEAL DO [facility] Start: 10-21-2021 End: 10-21-2021 Patient encounter procedure EMILIANO LEAL DO [facility] Start: 04-17-2021 End: 04-17-2021 Patient encounter procedure EMILIANO LEAL DO [facility] Start: 02-17-2021 End: 02-17-2021 Emergency department patient visit JODY GIRALDO MD [facility] Procedures Date Procedure Procedure Detail Performing Clinician Start: 08-30-2024 Cardiovascular stress testing ASIM DIEHL [employer]PRODUCTS OPERATOR-DYE MIXER Comment on above: * Final Report * [...] Start: 08-08-2024 Destructive procedure R SUDHIR DIEHL [employer]PRODUCTS OPERATOR-DYE MIXER Start: 06-29-2024 Cardioversion HARRY Barraza MD Comment [...] MD Comment on above: bilateral Cholecystectomy JODY UDQUE MD Cyst of ovary (disorder) SHIRLEY GIRALDO MD Dilatation of urethral meatus HARRY BAILON MD Immunizations Immunization Date Immunization Notes Care Provider [facility] 01-16-2025 influenza, high dose seasonal, preservative-free; Translations: [Fluzone High-Dose PF Prefilled Syringe ] DONATO NAVARRETE DO [facility] 02-23-2024 influenza, high dose seasonal, preservative-free; Translations: [Fluad PF Prefilled Syringe ] EMILIANO LEAL DO [facility] 02-21-2023 influenza virus vacc ine, unspecified formulation DR TERRIE SIMS DO [facility] 02-12-2022 influenza virus vacc ine, unspecified formulation DR TERRIE SIMS DO [facility] 02-12-2021 influenza virus vacc ine, unspecified formulation DR TERRIE SIMS DO [facility] 02-12-2021 SARS-CoV-2 (COVID-19 ) mRNA-[address] TERRIE SIMS DO [facility] 08-19-[address] TERRIE SIMS DO [facility] 07-26-2020 SARS-CoV-2 (COVID-19 ) mRNA-[address] TERRIE SIMS DO [facility] 06-28-2020 SARS-CoV-2 (COVID-19 ) mRNA-[address] TERRIE SIMS DO [facility] 04-18-[address] TERRIE SIMS DO [facility] 02-03-2020 influenza virus vacc ine, unspecified formulation DR TERRIE SIMS DO [facility] 03-09-2019 influenza virus vacc ine, unspecified formulation DR TERRIE SIMS DO [facility] 03-09-2019 pneumococcal conjuga te vaccine, [address] TERRIE SIMS DO [facility] 01-10-2018 influenza virus vacc ine, unspecified formulation DR TERRIE SIMS DO [facility] 08-14-2014 tetanus toxoid, redu balaji diphtheria toxoid, and acellular pertussis vaccine, adsorbed JODY GIRALDO MD [facility] 08-14-2014 diphtheria, tetanus toxoids and acellular pertussis vaccine, unspecified formulation JODY GIRALDO MD [facility] 03-11-2013 influenza virus vacc ine, unspecified formulation DR TERRIE SIMS DO [facility] 04-11-2002 pneumococcal polysaccharide vaccine, 23 valent JODY GIRALDO MD [facility] 03-10-2002 pneumococcal polysaccharide vaccine, [address] TERRIE SIMS DO [facility] Payers Date Payer Category Payer Private Health Insurance [id number] 2024 Medicare [id number] 2024 Medicare [id number] 2023 Medicare [id number] 2018 Unknown [id number] 1942 Unknown [id number] 2.16.8 40.1.971071.3.579.2. 1942 Unknown [id number] 2.16.8 40.1.134505.3.579.2 1942 Unknown [id number] 2.16. 840.1.339260.3.579.2 1942 Unknown [id number] 2.16. 840.1.577557.3.579.2 1942 Unknown [id number] 2.16. 840.1.582761.3.579.2. 1942 Unknown [id number] 2.16. 840.1.318709.3.579.2. 1942 Unknown [id number] 2.16. 840.1.926550.3.579.2 1942 Unknown [id number] 2.16. 840.1.186934.3.579.2. 1942 Unknown [id number] 2.16.8 40.1.107299.3.579.2.627 1942 Unknown [id number] 2.16.8 40.1.393427.3.579.2.627 1942 Unknown [id number] 2.16.8 40.1.053550.3.579.2.627 1942 Unknown [id number] 2.16.8 40.1.123353.3.579.2.62 1942 Unknown [id number] 2.16.8 40.1.975225.3.579.2.627 1942 Unknown [id number] 2.16.8 40.1.840670.3.579.2.62 1942 Unknown [id number] 2.16.8 40.1.596324.3.579.2. 1942 Unknown [id number] 2.16.8 40.1.695821.3.579.2. 1942 Unknown [id number] 2.16.8 40.1.199794.3.579.2. 1942 Unknown [id number] 2.16.8 40.1.323161.3.579.2. 1942 Unknown [id number] 2.16.8 40.1.563955.3.579.2.62 1942 Unknown [id number] 2.16. 840.1.086490.3.579.2.62 1942 Unknown [id number] 2.16.8 40.1.493638.3.579.2.62 1942 Unknown [id number] 2.16.8 40.1.999619.3.579.2.62 1942 Unknown [id number] 2.16.8 40.1.917081.3.579.2.627 1942 Unknown [id number] 2.16.8 40.1.508331.3.579.2.627 1942 Unknown [id number] 2.16.8 40.1.536405.3.579.2.627 1942 Unknown [id number] 2.16.8 40.1.113736.3.579.2.627 Social History Date Type Detail Facility Start: 12-04-2018 End: 09-01-2023 Heavy tobacco smoker (finding) [facility] Sex Assigned At Female [facility] Sexual O[facility] Start: 06-06-2019 Sex Female (finding) [facility] Start: 06-11-2024 End: 07-27-2024 Tobacco smoking status Ex-smoker (finding) [facility] Start: 02-19-2025 Not applicable (qualifier value) [facility] Functional Status Date Assessment Result Facility 02-19-2025 Functional Status Awake, Up ad candice [facility] 02-19-2025 Functional Status [facility] 02-19-2025 Functional Status Maintained [facility] 08-09-2024 Functional Status Independent [facility] 08-09-2024 Functional Status Supervision [facility] 08-09-2024 Functional Status Room located n ear nursing station, Door open, Bathroom light on, Non-Slip footwear, Room check performed [facility] 08-09-2024 Functional Status [facility] 08-09-2024 Functional Status [facility] 08-08-2024 Functional Status [facility] 08-08-2024 Functional Status [facility] 08-08-2024 Functional Status Patient Identi fied Identification band, Verbal [facility] 08-08-2024 Functional Status Maintained [facility] 07-27-2024 Functional Status Sensory Deficits None [facility] 07-01-2024 Functional Status Door open, Non-Slip footwear, toileting refused, Room check performed [facility] 07-01-2024 Functional Status [facility] 07-01-2024 Functional Status Done [facility] 07-01-2024 Functional Status [facility] 07-01-2024 Functional Status Sequential Com pression Device bilateral knee high removed/off [facility] 06-30-2024 Functional Status 11am-11pm [facility] 06-30-2024 Functional Status Returned to bed [facility] 06-30-2024 Functional Status [facility] 06-30-2024 Functional Status [facility] 06-30-2024 Functional Status Morning Snack Percent 1 00 [facility] 06-29-2024 Functional Status [facility] 06-29-2024 Functional Status [facility] 06-29-2024 Functional Status Patient Identi fied Identification band, Verbal [facility] 06-29-2024 Functional Status Done [facility] 06-29-2024 Functional Status [facility] 06-28-2024 Functional Status [facility] 06-28-2024 Functional Status Single level home [facility] 06-28-2024 Functional Status [facility] 06-28-2024 Functional Status [facility] 06-19-2024 Functional Status Awake [facility] 06-19-2024 Functional Status Repositions self [facility] 06-19-2024 Functional Status Maintained [facility] 05-29-2024 Functional Status Non-Slip footw ear, Room check performed [facility] 05-29-2024 Functional Status Celeste Bolton [facility] 05-29-2024 Functional Status Celeste Bolton [facility] 05-28-2024 Functional Status Celeste Bolton [facility] 05-28-2024 Functional Status Independent [facility] 05-28-2024 Functional Status Celeste Bolton [facility] 05-27-2024 Functional Status Celeste Bolton [facility] 05-27-2024 Functional Status Celeste Bolton [facility] 05-27-2024 Functional Status Celeste costello [facility] 05-27-2024 Functional Status Celeste costello [facility] 05-27-2024 Functional Status Celeste costello [facility] 05-27-2024 Functional Status Celeste costello [facility] 05-26-2024 Functional Status Celeste Bolton [facility] 05-26-2024 Functional Status Ambulation Dev ice Utilized Other: Rollator [facility] 05-25-2024 Functional Status Celeste Bolton [facility] 05-25-2024 Functional Status Celeste Bolton [facility] 05-24-2024 Functional Status Celeste Bolton [facility] 05-23-2024 Functional Status Single level h ome, 1st floor bedroom, 1st floor bathroom, basement okundry [facility] 05-23-2024 Functional Status None Celeste Bolton [facility] 05-23-2024 Functional Status 85 Celeste Bolton [facility] 05-23-2024 Functional Status Door open, Non-Slip footwear [facility] 05-23-2024 Functional Status Celeste Bolton [facility] 05-23-2024 Functional Status Celeste Bolton [facility] 05-22-2024 Functional Status 7am-7pm Celeste Bolton [facility] 05-22-2024 Functional Status Front wheeled walker [facility] 05-22-2024 Functional Status Supervised Celeste Bolton [facility] 05-22-2024 Functional Status bilateral knee high rem mary/off [facility] 05-22-2024 Functional Status Celeste Bolton [facility] 05-21-2024 Functional Status Celeste Bolton [facility] 05-21-2024 Functional Status Celeste Bolton [facility] 05-21-2024 Functional Status Done Celeste Bolton [facility] 05-20-2024 Functional Status low air loss bed [facility] 05-20-2024 Functional Status Dinner Percent 60 [facility] 05-20-2024 Functional Status Up to Chair Si tting on edge of bed [facility] 05-20-2024 Functional Status Single level home [facility] 05-20-2024 Functional Status Lunch Percent 80 [facility] 05-20-2024 Functional Status Celeste Bolton [facility] 05-20-2024 Functional Status Celeste Bolton [facility] 05-20-2024 Functional Status Celeste Bolton [facility] 05-20-2024 Functional Status Celeste Bolton [facility] 05-20-2024 Functional Status Standard Safet y ID band on, Call device within reach, Bed in low position, Wheels locked, Upper/Half-Length side-rails up, Safety level maintained [facility] 05-19-2024 Functional Status Room check performed [facility] 05-19-2024 Functional Status Celeste Bolton [facility] 05-19-2024 Functional Status Celeste Bolton [facility] 05-19-2024 Functional Status Single level home [facility] 05-19-2024 Functional Status Supervised Celeste Bolton [facility] 05-19-2024 Functional Status Celeste Bolton [facility] 05-19-2024 Functional Status Celeste Bolton [facility] 05-18-2024 Functional Status None Celeste Bolton [facility] 05-18-2024 Functional Status Door open, Room check performed [facility] 05-18-2024 Functional Status [facility] 05-18-2024 Functional Status Cel[facility] 05-18-2024 Functional Status [facility] 05-18-2024 Functional Status [facility] 05-17-2024 Functional Status [facility] 05-17-2024 Functional Status Skin Care Prod uct Applied Skin moisturizer [facility] 05-17-2024 [facility] 05-16-[facility]24 Functional Status Dinner Percent 80 [facility] 05-16-2024 Functional Status Ambulation Encouraged/reinforced importance of ambulation [facility] 05-15-2024 Functional Status [facility] 05-14-2024 Functional Status Single level home [facility] 05-13-2024 [facility] 05-13-2024 Functional Status heel(s)s eleva kamran, padded oxygen tubing [facility] 05-13-2024 Functional Status Standard Safet y ID band on, Call device within reach, Bed in low position, Wheels locked, Bedside Cart Locked, Visitor at bedside, Safety level maintained [facility] 05-13-2024 Functional Status Awake [facility] Mental Status Date Assessment Result Facility 02-19-2025 Mental Status Orientation Oriented x 4 [facility] 02-19-2025 Mental Status [facility] 02-19-2025 Mental Status [facility] 08-09-2024 Mental Status Orientation Oriented x 4 [facility] 08-09-2024 Mental Status [facility] 08-08-2024 Mental Status [facility] 07-01-2024 Mental Status Oriented x 4 [facility] 07-01-2024 Mental Status [facility] 07-01-2024 Mental Status [facility] 06-30-2024 Mental Status [facility] 06-19-2024 [facility] Status [facility] 05-29-2024 [facility] 05-28-2024 Mental Status [facility] 05-28-2024 Mental Status [facility] 05-23-2024 Mental Status Oriented x 4 [facility] 05-22-2024 Mental Status [facility] 05-22-2024 Mental Status [facility] 05-19-2024 Mental Status Oriented x 4 [facility] 05-19-2024 Mental Status [facility] 05-19-2024 Mental Status [facility] 05-18-2024 Mental Status [facility] 05-18-2024 Mental Status Orientation Oriented x 4 [facility] 05-18-2024 Mental Status [facility] 05-18-2024 Mental Status [facility] 05-13-2024 Mental Status Orientation Oriented x 4 [facility] 05-13-2024 Mental Status [facility] 05-13-2024 Mental Status [facility] Clinical Notes 02-17-2021 to 02-19-2025 Note Date [...] until you are awake and alert. Take [id number] and prescription medicines only as told by [...] 01/16/2014 Document Revised: 03/10/2018 Document Reviewed: 07/17/2016 [employer] Patient Education 2020 [employer]. 02/19/2025 11:46:54 3- Heart Cath/PCI radial (01/2018)(CUSTOM) [...] Document Reviewed: 03/29/2014 ExitCare Patient Information 2015 [employer]. This information is not intended to replace advice given to you by your health care provider. Make sure you discuss any questions you have with your health care provider. Follow Up Care 02/06/2025 11:31:21 With:VICTOR MANUEL PETERSON MD Address: [address] [place] [address]- [phone] When:03/21/2025 15:00:00 Comments:THIS APPOINTMENT WILL BE WITH CARLOS DIEHL CNP [facility] 02-19-2025 Summary of episod e note Discharge Instructions Thank you for allowing [facility] to assist you with your healthcare needs. The following is important discharge information regarding your hospital visit. Your Care Team DONATO NAVARRETE DO What to do next Scheduled Follow-Up Appointments Appointment Type When With Where Contact Information StatusCV OV 03/21/2025 03:00 PM EST [facility] DIEHL APRN-JOI [facility] Confirmed CV OV 12/19/2025 03:30 PM EDT MEREDITH BAILON [facility] Confirmed Follow Up Appointments Follow Up with VICTOR MANUEL PETERSON MD When:03/21/2025 03:00 PM EST Where:[address] [place] [address]- [phone] Additional Information: THIS APPOINTMENT WILL BE WITH [...] Duration: 90 Days Refills: [address] [facility] Unchanged apixaban (Eliquis 5 mg oral tablet) [...] tab(s) by mouth Every day Pharmacy Information [facility]: [address] [place] [address] [phone] Please take this list to your next [...] until you are awake and alert. Take qxdy-woi-ajdrdwj and prescription medicines only as told by [...] 01/16/2014 Document Revised: 03/10/2018 Document Reviewed: 07/17/2016 DivX Patient Education 2020 DivX Inc. HEART CATHETERIZATION/PCI (radial) Discharge Instructions DIET [...] Document Reviewed: 03/29/2014 ExitCare Patient Information 2015 Buy[employer]owa. This information is not intended to replace advice given to you by your health care provider. Make sure you discuss any questions you have with your health care provider. Additional Information VACCINATE! IT SAVES LIVES! Members of the community who have not yet received the COVID-19 vaccine and would like to receive it can visit one of [facility] vaccine clinics. There are many vaccine clinic locations within the [facility]. For locations and available times, please visit [email or web address] It is important to note that some COVID mobile vaccine clinics are held outdoors and may be canceled in rainy or stormy conditions. To learn more about pediatric vaccinations (ages 5-11), we invite you to visit the [facility] webpage. [email or web address]://[email or web address] [email or web address]-Iuhogoqzuet-Freq zoenqi-[email or web address].html To learn more about the COVID-19 vaccine, we invite you to visit the CDC website for a list of frequently asked questions.https://www.cdc.gov/co ronavirus/2019-ncov/vaccines/faq .html [facility] Patient Portal Access Instructions: Stay connected with your healthcare team and access your personal medical information anytime with the [employer] Patient Portal. Please follow the directions below to create your [employer] account: 1.Access the email account you provided upon registration to the hospital/physician office.2.Look for an invitation email from [facility].3.Open the email and access the invitation link: Accept Invitation to [facility].4.Fill in the required tripp to create your account. To access your account, visit [email or web address] or scan the Capital Te[employer] code above. Click the blue button labeled [...] you will allow to register on the [facility] [employer] Patient Portal for access to your information. You can also access the [facility] Patient Portal on the [employer] Anywhere duke. Simply click on Patient Portal and then log into your account. If you would like to receive a full copy of your medical records, please contact the [facility] Medical Records Department by calling [phone], Tuesday through Tuesday between 8 a.m. and [...] Call your local pharmacy or go to [email or web address] to find one close to you.3.Make use of household items: Use cat litter or old coffee grounds to dispose medications if other options are not available. Mix your drugs with these household products, seal them in an airtight container and throw it into the garbage. Call [facility]: [phone] to be sure your drugs can be [...] aware that I should contact my doctor. Patient/Director Of Cloud Services Signature: Date/Time: Relationship to Patient: Witness Name/Signature: Date/Time: [facility] 02-19-2025 Discharge summary Date of Service 02/19/2025 [...] [address] [facility] [place] [address]- [phone] Additional Information: THIS APPOINTMENT WILL BE WITH [...] MANUEL PETERSON MD on 02/19/2025 03:48 PM [facility] 02-11-2025 Nurse Progress note patient tolerated prolia injection without signs or symptoms of a reaction Digitally Signed by Marcelle Davidson RN on 02/11/2025 01:35 PM [facility] 01-08-2025 Note Exam Date Time Procedure Performing Provider Status 01/08/25 1:14 PM Echocardiogram, Adult - CV MONIKA AGUSTIN MD; Auth (Verified) [facility]09-23-2025 Note* Exam Date Time Procedure Performing Provider Status 01/01/25 10:56 AM XR Chest 2 Views SHANNAN CELIS MD; [facility] (Verified) [id number] ORIGINAL EXAMINATION: TWO XRAY VIEWS OF THE [...] 01/01/2025 3:15:11 PM Ordering Provider: ASIM DIEHL [facility]05-01-2025 Hospital Discharge instructions Patient Education 08/09/2024 08:14:32 [...] need to report the following to your director of occupational therapy: Any draining or oozing from the site [...] Document Reviewed: 03/29/2014 ExitCare Patient Information 2014 Buyapowa. This information is not intended to replace advicegiven to you by your health care provider. Make sure you discuss any questions you have with your health care provider. Follow Up Care 07/13/2024 14:36:08 With:ASIM DIEHL [employer]PRODUCTS OPERATOR-DYE MIXER Address: [address] [place] [address]- [phone] When:09/19/2024 15:00:00 With:HARRY BAILON MD Address: [address] [place] [address] When:11/12/2024 15:00:00 Comments:THIS APPOINTMENT WILL BE WITH ANASTASIYA JEFF CNP [facility] 05-01-2025 Summary of episode note Discharge Instructions Thank you for allowing [facility] to assist you with your healthcare needs. [...] OV 11/12/2024 03:00 PM EDT ANASTASIYA JEFF [facility] Confirmed Follow Up Appointments Follow Up with ASIM DIEHL When:09/19/2024 03:00 PM EDT [facility] [place] [address]- [phone] Follow Up with HARRY BAILON MD When:11/12/2024 03:00 PM EDT Where:[address] [place] [address]- [phone] Additional Information: THIS APPOINTMENT WILL BE WITH [...] need to report the following to your director of occupational therapy: Any draining or oozing from the site [...] Document Reviewed: 03/29/2014 ExitCare Patient Information 2015 [facility]. This information is not intended to replace advicegiven to you by your health care provider. Make sure you discuss any questions you have with your health care provider. Additional Information VACCINATE! IT SAVES LIVES! Members of the community who have not yet received the COVID-19 vaccine and would like to receive it can visit one of [facility] vaccine clinics. There are many vaccine clinic locations within the [facility]. For locations and available times, please visit [email or web address]/. It is important to note that some COVID mobile vaccine clinics are held outdoors and may be canceled in rainy or stormy conditions. To learn more about pediatric vaccinations (ages 5-11), we invite you to visit the [facility] webpage. https://www.[email or web address].org/pages/6975-Vpvhz-Xqzzxvspity-Ojgogiojdl-Uugzz-Eim stions.htmlTo learn more about the COVID-19 vaccine, we invite you to visit the CDC website for a list of frequently asked questions.https://www.cdc.gov/coronavirus/2019-ncov/vaccines/faq.html [facility] Patient Portal Access Instructions: Stay connected with your healthcare team and access your personal medical information anytime with the [facility] Patient Portal. Please follow the directions below to create your [facility] account: 1.Access the email account you provided upon registration to the hospital/physician office.2.Look for an invitation email from [facility].3.Open the email and access the invitation link: AcceptInvitation to [facility].4.Fill in the required tripp to create your account. To access your account, visit [employer]/AirTight Networkst. Click the blue button labeled Access Patient Portal and then log in with the username and password that you created in the steps above. You will be able to view your test results, lab results, a summary of your visits, upcoming appointments and more. There is also a convenient messaging option where you can send secure messages to your [employer] Pharmaceuticalsvider. In addition, you will have the ability to download any documents or summaries to your computer and/or send the information securely to a physician. Remember that your healthcare information is confidential, so carefully consider who you will allowto register on the [facility] Patient Portal for access to your information. You can also access the [facility] Patient Portal on the [facility] duke. Simply click on Patient Portal and then log into your account. If you would like to receive a full copy of your medical records, please contact the [facility] Medical Records Department by calling [phone], Tuesday through Tuesday between 8 a.m. and [...] Call your local pharmacy or go to [email or web address] to find one close to you.3.Make use of household items: Use cat litter or old coffee grounds to dispose medications if other options arenot available. Mix your drugs with these household products, seal them in an airtight container andthrow it into the garbage. Call [facility]: [phone] to be sure your drugs can be [...] aware that I should contact my doctor. Patient/Director Of Cloud Services Signature: Date/Time: Relationship to Patient: Witness Name/Signature: Date/Time: [facility] Center[facility]ocwh[facility]z79-72-1843 Note* Exam Date Time Procedure Performing Provider Status 08/09/24 3:42 AM Electrocardiogram - EKG - CV NIKOLASP LISA PARISH MD; Auth (Verified) ECG Final Report SINUS RHYTHM BORDERLINE PROLONGED QT INTERVAL Electronic Signature: LISA BOSS MD 08/09/2024 07:44:04 [facility] CenterLzwcmfvo41-26-9229 Anesthesiology Consult note Patient: JED SEWELL Age: [...] ARTURO POE MD on 08/08/2024 02:10 PM [facility] CenterGeuafujz81-79-7814 Note* Exam Date Time Procedure Performing Provider Status 08/08/24 12:00 PM Ablation CV HARRY BAILON MD; Auth (Ve rified) [facility] CenterFhodtsgu49-08-5668 Anesthesiology Consult note Patient: JED SEWELL Age: [...] failure, stage 3 (moderate) / SNOMED CT 430675029 / Confirmed COPD - Chronic obstructive pulmonary disease / SNOMED CT 433275384 / Confirmed HFrEF (heart failure with reduced ejection fraction) / SNOMED CT 9968891820 / Confirmed HTN (hypertension) / SNOMED CT [id number] / Confirmed Osteoporosis / SNOMED CT 216499487 / Confirmed Persistent atrial fibrillation / SNOMED CT 5175783066 / Confirmed Serum calcium elevated / SNOMED CT 883360749 / Confirmed Wheezing / SNOMED CT 85696408 / Confirmed Resolved: Acute bronchitis due to infection / SNOMED CT 889742918 Resolved: DDD (degenerative disc disease), lumbar / SNOMED CT 46227414 Resolved: Microalbuminuria / SNOMED CT 629925624 Resolved: Neck pain on right side / SNOMED CT 377401052 Resolved: Proteinuria of undiagnosed cause / SNOMED CT 253878482 Resolved: Sciatica / SNOMED CT 90362349 Canceled: Atrial fibrillation / SNOMED CT 11390477 Canceled: Atrial fibrillation, rapid / SNOMED CT 133710973 Canceled: H/O osteoporosis / SNOMED CT 567228087 Canceled: Hypercalcemia / SNOMED CT 391126703 Canceled: Immunization due / SNOMED CT 201718221, Active Problems (17) Chronic renal failure, stage 3 (moderate) Constipation COPD - Chronic obstructive pulmonary disease BENNETT (dyspnea on exertion) Glasses Hard of hearing HFrEF (heart failure with reduced ejection fraction) HTN (hypertension) Hyperparathyroidism GA (myocardial infarction) Mitral regurgitation Osteoporosis Persistent atrial fibrillation Presence of dental prosthetic device Seasonal allergy Serum calcium elevated Wheezing Histories Past Medical History: Active HTN (hypertension) ([id number]-[id number]) Resolved Sciatica (50406088): Resolved. Microalbuminuria (222316727): Resolved. DDD (degenerative disc disease), lumbar (83695396): Resolved. Neck pain on right side (159228759): Resolved. Proteinuria of undiagnosed cause (417373149): Resolved. Acute bronchitis due to infection (626979889): Resolved. Family History: Respiratory disease Father Sister Brother COPD Mother Colon cancer Sister Procedure history: Cardioversion (464232793) on 06/29/2024 at 83 Years. Comments: 07/12/2024 15:37 Noemi Perez LPN Successful Echocardiogram ([id number]) on 05/16/2024 at 83 Years. Comments: 07/12/2024 [...] mm Hg. Colonoscopy and biopsy of colon (4024540685) on 11/02/2019 at 78 Years. Colonoscopy (142822244) on 04/11/2011 at 70 Years. Ovarian cyst ([id number]). Appendectomy (159615212). Cholecystectomy (18493446). Abdominal hysterectomy (448241562). Cataract extraction and IOL (implantation of intraocular lens) (7422315699). Comments: 07/27/2024 12:49 EDT - [facility] [place] bilateral Dilation of urethral meatus (3109319431). Social History: Social & Psychosocial Habits Alcohol [...] Charted Temp Oral36.3 DegC (AUG 08 07:53) BDG050 mmHg (AUG 08 07:53) DBP72 mmHg (AUG 08 07:53) Measurements from flowsheet : Measurements 08/08/2024 7:53 EDT Height 157.5 cm Height in inches 62 inch(es) Admission Weight 65.9 kg Weight Lbs 145 lb Weight Method Actual [place] Body Weight 50.12 kg Type of Scale Used Standing Admission Body Mass Index 26.57 m2 08/07/2024 14:48 EDT Height 157.5 cm Height in inches 62 inch(es) Admission Weight 66.2 kg Weight Lbs 145.6 lb Weight Method Actual [place] Body Weight 50.12 kg BSA Admission 1.67 [...] #1 We May Share PHI Natalie elizabeth- [phone] Designated Person #1 Relationship Daughter Designated Person #2 We May Share PHI Kayode [phone] Designated Person #2 Relationship Family member Privacy Restrictions Requested None Height 157.5 cm Height in inches 62 inch(es) Admission Weight 65.9 kg Weight Lbs 145 lb Weight Method Actual [place] Body Weight 50.12 kg Type of Scale [...] No Advanced Directives Yes Advance Directive Type [place] Durable Power of Lidder for [place], [place] Declaration (Living Will) Advance Directive Location [...] evident Teaching Method Explanation Preferred Spoken Language Zambian Preferred Written Language Zambian Teaching Evaluation Verbalizes/Nonverbally indicates understanding General Infection [...] Weight Lbs 145.6 lb Weight Method Actual [place] Body Weight 50.12 kg BSA Admission 1.67 Body Mass Index 26.69 kg/m2 Peripheral Pulse Rate 95 bpm Systolic Blood Pressure Non-Invasive 140 mmHg Diastolic Blood Pressure Non-Invasive 70 mmHg Blood Pressure Method Manual Blood Pressure Location Left arm Blood Pressure Cuff Size Large Oxygen Saturation 97 % Advanced Directives Yes Advance Directive Type [facility] Power of Lidder for [place], [place] Declaration (Living Will) Advance Directive Location Indicates that [facility] has been given copy director Complaint 4 to 6 week F/U Post Hospital Dx a-fib and CHF. C/O O2 at 1 liter prn C/) SOB Comprehensive Intake-Specialty OfficeAMB Ambulatory Comprehensive Intake - Specialty Office Preferred Lab [facility] facility Preferred Rad [facility] [place] 08/07/2024 14:45 EDT Cardiology Office Note Office Visit Note History of Present Illness Documentation History of Present Illness Documentation Impression and Plan Documentation Impression and Plan Documentation Review of Systems Documentation Review of Systems Documentation Physical Examination Documentation Physical Examination Documentation . Assessment and Plan [place] Society of Anesthesiologists (ASA) physical status classification: [...] Taken Within 24 Hrs. Digitally Signed by ARTURO POE MD on 08/08/2024 11:21 AM [facility] CenterExjxhgzd81-73-3596 Note* Exam Date Time Procedure Performing Provider Status 08/08/24 8:26 AM Electrocardiogram - EKG - CV NIKOLASP LISA PARISH MD; Auth (Verified) ECG Final Report ATRIAL FIBRILLATION BORDERLINE PROLONGED QT INTERVAL Electronic Signature: LISA BOSS MD 08/09/2024 07:43:54 [facility] CenterKtqolavb69-83-0812 History and physical note Date of Service August 03, 2024 Primary EP: Dr. Bailon History and Physical Update I have examined the patient; reviewed the History and Physical and there are no changes to the History and Physical unless noted below. Digitally Signed by ANASTASIYA JEFF APRN-DYE MIXER on 08/03/2024 03:40 PM [facility] CenterYtjgdosn18-40-9689 Discharge summary Date of Service 07/01/2024 Discharge Diagnosis Atrial Fibrillation Acute on Chronic HFrEF Hospital Course 83-year-old female with history of recently diagnosed atrial fibrillation (status post cardioversion on June 19), recently diagnosed HFmrEF, hypertension, osteoporosis Transferred from [place] for acute on chronic HFmrEF in the [...] up with your Primary Care Physician and Disaster Recovery Analyst as recommended. _ 2. Some of your medications may have changed during this hospital stay. Please go over these changes with your nurse before you leave the hospital. _ 3. Take all your medications as prescribed. If you have any queries, please reach out to our [facility] office at [phone] for general queries and [phone] for medication refills. 4. All your medical records and results are available to you through our [employer] Patient Portal. Tosign up, please visit [email or web address] Medications New Prescription amLODIPine (amLODIPine 5 mg [...] Up Follow Up with EMILIANO LEAL Where:[address] [place] [address]- [phone] Business (1) Additional Information: PLEASE CALL THIS OFFICE TO SCHEDULE A HOSPITAL FOLLOW UP APPOINTMENT. Follow Up with [facility] has been arranged for you. Call [phone] with any questions Additional Information: Home Physcial therapy has been arranged. Follow Up with readmission score is 12 Follow Up with ASIM DIEHL APRN-JOI When:07/23/2024 03:30 PM EDT [facility] [place] [address]- Follow Up Appointments No qualifying data available. [...] GEETA BEASLEY MD on 07/01/2024 01:15 PM [facility] CenterJduabdtt45-87-7150 Note Discharge Instructions Thank you for allowing [facility] to assist you with your healthcare needs. The following is importantdischarge information regarding your hospital visit. Your Care Team EMILIANO LEAL DO What to do next Instructions From Your Doctor 1. Kindly follow up with your Primary Care Physician and Disaster Recovery Analyst as recommended. You will needto do labwork in 3-5 days after being discharged. 2. Some of your medications may have changed during this hospital stay. Please go over these changes with your nurse before you leave the hospital. _ 3. Take all your medications as prescribed. If you have any queries, please reach out to our [facility] office at [phone] for general queries and [phone] for medication refills. 4. All your medical records and results are available to you through our [facility] Patient Portal. Tosign up, please visit [email or web address] Scheduled Follow-Up Appointments Appointment Type When With Where Contact Information StatusCV OV 07/10/2024 03:00 PM EDT ASIM DIEHL [facility] Confirmed PC OV 07/19/2024 03:30 PM EDT EMILIANO LEAL DO [address] [phone] Confirmed CV OV 08/07/2024 03:00 PM EDT ASIM DIEHL [facility] Confirmed CV OV 09/11/2024 01:00 PM EDT [facility] Follow Up with [facility] [phone] for your oxygen questions When:Within 1-2 days Follow Up with EMILIANO LEAL Where:[address] [place] [address]- [phone] Business (1) Additional Information: PLEASE CALL THIS OFFICE TO SCHEDULE A HOSPITAL FOLLOW UP APPOINTMENT. Follow Up with [facility] has been arranged for you. Call [phone] with any questions Additional Information: Home Physcial therapy has been arranged. Follow Up with readmission score is 12 Follow Up with ASIM DIEHL When:07/23/2024 03:30 PM EDT Where:[address] [place] [address]- The Following Activity and Diet Have Been [...] Once a day Refills: [address] [facility] New bumetanide (bumetanide 1 mg oral tablet) 1 tab(s) by mouth Once a day Refills: [address] [facility] Unchanged amiodarone (amiodarone 200 mg oral tablet) [...] a day Take with food Pharmacy Information [facility]: [address] [place], [place] [id number] [phone] What How Much When Comments Stop Taking [...] oxygen Your health care provider or a employee's representative from your neuropsychology medical consultant company will show you how touse your [...] not move around. Follow instructions from your neuropsychology medical consultant company about how to safely secure your tank. Make sure you have enough oxygen for the amount of time you will be away from home. If you are planning air travel, contact the airline to find out if they allow the use of an approved portable oxygen concentrator. You may also need documents from your health care provider and neuropsychology medical consultant company before you travel. General safety tips [...] Summary Your health care provider or a employee's representative from your neuropsychology medical consultant company will show you how touse your [...] 06/17/2004 Document Revised: 09/14/2018 Document Reviewed: 10/19/2016 DivX Patient Education 2020 DivX Inc. Heart Failure Eating Plan Heart failure, also called congestive heart failure, occurs when your heart does not pump blood well enough to meet your body's needs for oxygen-rich blood. Heart failure is a long-term (chronic) condition. Living with heart failure can be challenging. However, following your health care provider'sinstructions about a healthy lifestyle and working with a diet and geospatial specialist (dietitian) to choose the right foods [...] cheese. Low-sodium cottage cheese. Fats and oils [place], canola, soybean, flaxseed, or sunflower oil. Avocado. Sweets and desserts Apple sauce. Granola bars. Sugar-free pudding and gelatin. Frozen fruit bars. Seasoning and other foods Fresh and dried herbs. Lemon or mary's igloo juice. Vinegar. Low-sodium ketchup. Salt- free marinades, [...] vegetables with sauce or seasonings. Creamed vegetables. Turkish fries. Onion rings. Pickled vegetables and sauerkraut. [...] Salted nuts and seeds. Dairy Whole milk, kmjt-nwa-dxek, and cream. Buttermilk. Processed cheese, cheese spreads, [...] and bouillon cubes. Horseradish, ketchup, and mustard. Worcester City Hospitaltershire sauce. Teriyaki sauce, soy sauce (including reduced [...] 08/12/2017 Document Revised: 05/24/2019 Document Reviewed: 08/12/2017 DivX Patient Education 2020 Mobstats. Heart Failure Exacerbation Heart failure is a [...] Follow these instructions at home: Medicines Take kmbp-dzu-aztlhfs and prescription medicines only as told by your health care provider. Do not stop taking your medicines or change the amount you take. If you are having problems or sideeffects from your medicines, talk to your health care provider. If you are having difficulty paying for your medicines, contact a forensic social worker or your clinic. There are [...] 08/09/2017 Document Revised: 03/10/2018 Document Reviewed: 08/09/2017 ElseActionPlanner Patient Education 2020 DivX Inc. Atrial Fibrillation Atrial fibrillation is a [...] may be diagnosed with: Electrocardiogram (ECG). Ambulatory site monitor. This device records your heartbeats for [...] 03/28/2006 Document Revised: 05/18/2018 Document Reviewed: 05/19/2018 ElseActionPlanner Patient Education 2020 [employer]. Additional Information VACCINATE! IT SAVES LIVES! Members of the community who have not yet received the COVID-19 vaccine and would like to receive it can visit one of [facility] vaccine clinics. There are many vaccine clinic locations within the [facility]. For locations and available times, please visit [email or web address] It is important to note that some COVID mobile vaccine clinics are held outdoors and may be canceled in rainy or stormy conditions. To learn more about pediatric vaccinations (ages 5-11), we invite you to visit the [facility] webpage. [email or web address] learn more about the COVID-19 vaccine, we invite you to visit the CDC website for a list of frequently asked questions.https://www.cdc.gov/coronavirus/2019-ncov/vaccines/faq.html [facility] Patient Portal Access Instructions: Stay connected with your healthcare team and access your personal medical information anytime with the [facility] Patient Portal. Please follow the directions below to create your [employer] account: 1.Access the email account you provided upon registration to the hospital/physician office.2.Look for an invitation email from [facility].3.Open the email and access the invitation link: AcceptInvitation to [facility].4.Fill in the required tripp to create your account. To access your account, visit CreationFlow/AirTight Networkst. Click the blue button labeled Access Patient Portal and then log in with the username and password that you created in the steps above. You will be able to view your test results, lab results, a summary of your visits, upcoming appointments and more. There is also a convenient messaging option where you can send secure messages to your [employer]. In addition, you will have the ability to download any documents or summaries to your computer and/or send the information securely to a physician. Remember that your healthcare information is confidential, so carefully consider who you will allowto register on the [facility] Patient Portal for access to your information. You can also access the [facility] Patient Portal on the [facility] duke. Simply click on Patient Portal and then log into your account. If you would like to receive a full copy of your medical records, please contact the [facility] Medical Records Department by calling [phone], Tuesday through Tuesday between 8 a.m. and [...] Call your local pharmacy or go to [email or web address] to find one close to you.3.Make use of household items: Use cat litter or old coffee grounds to dispose medications if other options arenot available. Mix your drugs with these household products, seal them in an airtight container andthrow it into the garbage. Call [facility]: [phone] to be sure your drugs can be [...] aware that I should contact my doctor. Patient/Director Of Cloud Services Signature: Date/Time: Relationship to Patient: Witness Name/Signature: Date/Time: [facility] CenterBkiqzixn79-43-8629 Discharge summary Date of Service 07/01/2024 Discharge Diagnosis Atrial Fibrillation Acute on Chronic HFrEF Hospital Course 83-year-old female with history of recently diagnosed atrial fibrillation (status post cardioversion on June 19), recently diagnosed HFmrEF, hypertension, osteoporosis Transferred from [place] for acute on chronic HFmrEF in the [...] up with your Primary Care Physician and Disaster Recovery Analyst as recommended. _ 2. Some of your medications may have changed during this hospital stay. Please go over these changes with your nurse before you leave the hospital. _ 3. Take all your medications as prescribed. If you have any queries, please reach out to our [facility] office at [phone] for general queries and [phone] for medication refills. 4. All your medical records and results are available to you through our [employer]book Patient Portal. Tosign up, please visit [email or web address] New Prescription amLODIPine (amLODIPine 5 mg [...] Up Follow Up with EMILIANO LEAL Where:[address] [place] [address]- [phone] Business (1) Additional Information: PLEASE CALL THIS OFFICE TO SCHEDULE A HOSPITAL FOLLOW UP APPOINTMENT. Follow Up with [facility] has been arranged for you. Call [phone] with any questions Additional Information: Home Physcial therapy has been arranged. Follow Up with readmission score is 12 Follow Up with ASIM DIEHL When:07/23/2024 03:30 PM EDT Where:[address] [place] [address]- Follow Up Appointments No qualifying data available. [...] GEETA BEASLEY MD on 07/01/2024 01:15 PM [facility] CenterFoturqcj74-83-3002 Hospital Discharge instructions Patient Education 07/01/2024 10:23:13 [...] oxygen Your health care provider or a employee's representative from your neuropsychology medical consultant company will show you how touse your [...] not move around. Follow instructions from your neuropsychology medical consultant company about how to safely secure your tank. Make sure you have enough oxygen for the amount of time you will be away from home. If you are planning air travel, contact the airline to find out if they allow the use of an approved portable oxygen concentrator. You may also need documents from your health care provider and neuropsychology medical consultant company before you travel. General safety tips [...] Summary Your health care provider or a employee's representative from your neuropsychology medical consultant company will show you how touse your [...] 06/17/2004 Document Revised: 09/14/2018 Document Reviewed: 10/19/2016 DivX Patient Education 2020 Mob[employer]. 07/01/2024 10:23:02 Heart Failure Eating Plan Heart [...] lifestyle and working with a diet and geospatial specialist (dietitian) to choose the right foods [...] cheese. Low-sodium cottage cheese. Fats and oils [place], canola, soybean, flaxseed, or sunflower oil. Avocado. Sweets and desserts Apple sauce. Granola bars. Sugar-free pudding and gelatin. Frozen fruit bars. Seasoning and other foods Fresh and dried herbs. Lemon or mary's igloo juice. Vinegar. Low-sodium ketchup. Salt- free marinades, [...] vegetables with sauce or seasonings. Creamed vegetables. Turkish fries. Onion rings. Pickled vegetables and sauerkraut. [...] Salted nuts and seeds. Dairy Whole milk, xakf-mcv-mopn, and cream. Buttermilk. Processed cheese, cheese spreads, [...] 08/12/2017 Document Revised: 05/24/2019 Document Reviewed: 08/12/2017 DivX Patient Education 2020 [employer]. 07/01/2024 10:22:57 Heart Failure Exacerbation Heart [...] Follow these instructions at home: Medicines Take mfaj-ofy-wdcvnnc and prescription medicines only as told by your health care provider. Do not stop taking your medicines or change the amount you take. If you are having problems or sideeffects from your medicines, talk to your health care provider. If you are having difficulty paying for your medicines, contact a forensic social worker or your clinic. There are [...] 08/09/2017 Document Revised: 03/10/2018 Document Reviewed: 08/09/2017 DivX Patient Education 2020 [employer]. 07/01/2024 10:22:22 Atrial Fibrillation Atrial Fibrillation Atrial [...] may be diagnosed with: Electrocardiogram (ECG). Ambulatory site monitor. This device records your heartbeats for [...] 03/28/2006 Document Revised: 05/18/2018 Document Reviewed: 05/19/2018 DivX Patient Education 2020 [employer]. Follow Up Care 06/28/2024 02:34:39 With:[facility] [phone] for your oxygen questions Address:Unknown When:1-2 days With:ASIM DIEHL Address: [address] [place] [address]- When:07/23/2024 15:30:00 With:EMILIANO LEAL Address: [address] [place] [address]- [phone] Business (1) When: Unknown Comments:PLEASE CALL THIS OFFICE TO SCHEDULE A HOSPITAL FOLLOW UP APPOINTMENT. With:[facility] has been arranged for you. Call [phone] with any questions Address:Unknown When: Unknown Comments:Home Physcial therapy has been arranged. With:readmission score is 12 Address:Unknown When: Unknown [facility] 03-23-2025 Respiratory therapy Hospital Progress note Respiratory [...] by MYRTLE Holden on 07/01/2024 07:19 AM [facility] CenterEiutovra10-22-9271 Cardiology Progress note Date of Service 06/30/2024 [...] diagnosed HFmrEF, hypertension, osteoporosis Being transferred from [place] for acute on chronic HFmrEF in the [...] GEETA BEASLEY MD on 06/30/2024 11:59 AM [facility] CenterPrqvngzg34-68-5392 Cardiology Progress note Date of Service 06/30/2024 [...] diagnosed HFmrEF, hypertension, osteoporosis Being transferred from [place] for acute on chronic HFmrEF in the [...] GEETA BEASLEY MD on 06/30/2024 11:59 AM [facility] CenterWxwrowtg16-96-8078 Cardiology Progress note Date of Service 06/29/2024 [...] diagnosed HFmrEF, hypertension, osteoporosis Being transferred from [place] for acute on chronic HFmrEF in the [...] ISAURA JACKSON MD on 06/29/2024 11:45 PM [facility] CenterIdbaqffu95-97-4160 Note* Exam Date Time Procedure Performing Provider Status 06/29/24 6:[address] Thorax w/o Contrast ROCCO WILSON MD; Auth (Verified) [id number] ORIGINAL HISTORY: Short of breath COMPARISON: 21 [...] 06/30/2024 8:44:59 AM Ordering Provider: ISAURA JACKSON [facility] CenterTukwjppy41-20-3236 Pastoral care Progress note Pastoral Care Note Entered On: 06/29/2024 14:49 EDT Performed On: 06/29/2024 13:16 EDT by Salvador Sánchez [facility] Type of Pastoral Visit : Initial visit [...] by Salvador Sánchez on 06/29/2024 02:48 PM [facility] CenterKqyxvioi47-80-8247 Note* Exam Date Time Procedure Performing Provider Status 06/29/24 10:40 AM Electrocardiogram - EKG - CV LUCIANO HYLTON MD; Auth (Verified) ECG Final Report SINUS RHYTHM ATRIAL PREMATURE COMPLEX PROBABLE LEFT ATRIAL ENLARGEMENT ANTERIOR INFARCT, AGE INDETERMINATE Electronic Signature: SANGITA HYLTON MD 06/30/2024 14:52:45 [facility] CenterCozonqce62-74-0060 Procedure note DATE: 06/29/24 PROCEDURE: DC cardioversion INDICATIONS: persistent atrial fibrillation PHYSICIAN: Dr Bailon NETWORK/TELECOM ENGINEER: Dr Gunter ; Eileen Rosas HPI: recurrent [...] HARRY BAILON MD on 06/29/2024 10:09 AM [facility] CenterCsqotpwb98-76-3359 Cardiology Progress note Date of Service 06/29/2024 [...] diagnosed HFmrEF, hypertension, osteoporosis Being transferred from [place] for acute on chronic HFmrEF in the [...] ISAURA JACKSON MD on 06/29/2024 11:45 PM [facility] CenterDcvaaogd61-77-5926 Anesthesiology Consult note Patient: JED SEWELL Age: [...] Oral, qDay, #90 cap(s), 3 Refill(s), Pharmacy: [facility], 160, cm, 06/13/24 13:57:00 EST, Height, kg, 06/13/24 13:57:00 EST, Dosing Weight Eliquis 5 mg oral tablet: Dose : 5 mg = 1 tab(s), Oral, BID, # 180 tab(s), 3 Refill(s), Pharmacy: [facility], 160, cm, 06/19/24 6:42:00 EDT, Height, 61.3, kg, 06/19/24 6:42:00 EDT, Dosing Weight Jardiance 10 mg oral tablet: Dose : 10 mg = 1 tab(s), Oral, qAM, # 90 tab(s), 3 Refill(s), Pharmacy: [facility], 160, cm, 06/13/24 13:57:00 EST, [...] qDay, # 90 tab(s), 3 Refill(s), Pharmacy: [facility], 160, cm, 06/13/24 13:57:00 EST, Height, kg, 06/13/24 13:57:00 EST, Dosing Weight bumetanide 1 mg oral tablet: Dose : 1 mg = 1 tab(s), Oral, BID, # 180 tab(s), 3 Refill(s), Pharmacy: [facility], 160, cm, 06/13/24 13:57:00 EST, Height, kg, 06/13/24 13:57:00 EST, Dosing Weight potassium chloride 20 mEq oral tablet, extended release: Dose : 20 mEq = 1 tab(s), Oral, qDay, Takewith food, # 30 tab(s), 3 Refill(s), Pharmacy: [facility], 160, cm, 256:42:00 EDT, Height, kg, 06/19/24 [...] list: Medical Atrial fibrillation / SNOMED CT 54189976 / Confirmed Chronic renal failure, stage 3 (moderate) / SNOMED CT 317416860 / Confirmed HFrEF (heart failure with reduced ejection fraction) / SNOMED CT 5612085335 / Confirmed HTN (hypertension) / SNOMED CT [id number] / Confirmed Serum calcium elevated / SNOMED CT 714548867 / Confirmed Osteoporosis / SNOMED CT 465653818 / Confirmed, Active Problems (10) Atrial fibrillation Chronic renal failure, stage 3 (moderate) HFrEF (heart failure with reduced ejection fraction) HTN (hypertension) GA (myocardial infarction) Mitral regurgitation Osteoporosis Serum calcium elevated Shortness of breath Tobacco use Histories Past Medical History: Active HTN (hypertension) ([id number]) Resolved Sciatica (50485290): Resolved. Microalbuminuria (703148653): Resolved. DDD (degenerative disc disease), lumbar (16797519): Resolved. Neck pain on right side (320962008): Resolved. Hypercalcemia (072432723): Resolved. Proteinuria of undiagnosed cause (816107787): Resolved. Acute bronchitis due to infection (215903766): Resolved. Family History: Respiratory disease Father COPD Mother Procedure history: Colonoscopy and biopsy of colon ([id number]) on 11/02/2019 at 78 Years. Colonoscopy (685742806) on 04/11/2011 at 70 Years. Ovarian cyst ([id number]). Appendectomy (489773726). Cholecystectomy (46182841). Abdominal hysterectomy (195720613). Social History: Social & Psychosocial Habits Alcohol [...] Pressure Cuff Size Medium Nail Bed Color Laurens Capillary Refill < 2 seconds Dorsalis Pedis [...] Elimination Devices External catheter All Extremity Description Laurens, Normal for ethnicity Temperature All Extremities Warm Neurological Language Able to speak clearly Neurological Symptoms Patient denies Characteristics of Communication Appropriate Level of Consciousness Alert Eye Opening Response Alderson Spontaneously Best Motor Response Alderson Obeys simple commands Best Verbal Response Alderson Oriented SEDA Yes Left Pupil Reaction Brisk [...] Checked Cardiovascular Symptoms Edema Nail Bed Color Laurens Capillary Refill < 2 seconds Heart Sounds [...] Temperature All Extremities Warm Mucous Membrane Color Laurens Mucous Membrane Description Moist Sensory Perception Jose [...] Ignacia Obeys simple commands Best Verbal Response Alderson Oriented Alderson Coma Score 15 SEDA Yes Left Pupil [...] scale Cardiovascular Symptoms Edema Nail Bed Color Laurens Capillary Refill < 2 seconds Heart Sounds [...] Makes facial grimaces, Symmetric resting/crying Skin Description Laurens, Normal for ethnicity, Dry Skin Temperature Warm Skin Integrity Pressure points intact Skin Turgor Non-Elastic Skin Symptoms Bruising All Extremity Description Laurens, Normal for ethnicity Temperature All Extremities Warm Mucous Membrane Color Laurens Mucous Membrane Description Moist Antecubital Right 20 [...] scale Cardiovascular Symptoms Edema Nail Bed Color Laurens Capillary Refill < 2 seconds Heart Sounds [...] Makes facial grimaces, Symmetric resting/crying Skin Description Laurens, Normal for ethnicity, Dry Skin Temperature Warm Skin Integrity Pressure points intact Skin Turgor Non-Elastic Skin Symptoms Bruising All Extremity Description Laurens, Normal for ethnicity Temperature All Extremities Warm Mucous Membrane Color Laurens Mucous Membrane Description Moist Antecubital Right 20 [...] evident Teaching Method Explanation Preferred Spoken Language Zambian Preferred Written Language Zambian Disease Process General Education Signs/Symptoms to report, Signs/Symptoms of complications Equipment Education front desk monitor, Urinary catheter care, Oxygen, Walker Patient Care [...] scale Cardiovascular Symptoms Edema Nail Bed Color Laurens Capillary Refill < 2 seconds Heart Sounds [...] Makes facial grimaces, Symmetric resting/crying Skin Description Laurens, Normal for ethnicity, Dry Skin Temperature Warm Skin Integrity Pressure points intact Skin Turgor Non-Elastic Skin Symptoms Bruising All Extremity Description Laurens, Normal for ethnicity Temperature All Extremities Warm Mucous Membrane Color Laurens Mucous Membrane Description Moist Sensory Perception Jose [...] Opening Response Ignacia Spontaneously Best Motor Response Alderson Obeys simple commands Best Verbal Response Ignacia Oriented Alderson Coma Score 15 SEDA Yes Left Pupil [...] (Not Done) CAM (more content not included)... [facility] CenterNhvdbnlr15-09-1735 Note Date of Service 06/29/24 Chief Complaint [...] heart disease/mitral regurgitation, history of type II GA, A-fib RVR, and chronic renal disease who [...] the consult. Harry Bailon MD Cardiac Electrophysiology [phone] Digitally Signed by HARRY BAILON MD on 06/29/2024 07:46 AM [facility] CenterUespkchh22-15-3573 Cardiology Consult note Date of Service June [...] disease/mitral regurgitation 5. History of type II GA A-fib RVR 6. Chronic renal disease. Echocardiogram [...] within 2 hrs), Blood, Once, Preferred Lab: [facility] [place], Stop date 06/28/24 10:41:00 EDT 1. Longstanding [...] by MARCELLE ROSAS on 06/28/2024 10:57 AM [facility] CenterNkilicmi60-62-7838 Cardiology Consult note Date of Service June 28, 2024 Shared/Split visit with Dr. aBilon Reason for Consultation AF Referring Physician Gen [...] disease/mitral regurgitation 5. History of type II GA A-fib RVR 6. Chronic renal disease. Echocardiogram [...] within 2 hrs), Blood, Once, Preferred Lab: [facility] [place], Stop date 06/28/24 10:41:00 EDT 1. Longstanding [...] by MARCELLE ROSAS on 06/28/2024 10:57 AM [facility] CenterMivrqhrn59-58-8408 Respiratory therapy Hospital Progress note Respiratory Therapy [...] Mental Status : Alert, oriented and cooperative Meagn Jaimes RRT - 06/28/2024 19:51 EDT Digitally Signed by Megan Jaimes RRT on 06/28/2024 07:52 PM [facility] CenterDmnuwvre47-98-7480 History and physical note Date of Service 06/28/2024 04:50:45 History of Present Illness 83-year-old female with history of recently diagnosed atrial fibrillation (status post cardioversion on June 19), recently diagnosed HFmrEF, hypertension, osteoporosis Being transferred from [place] for acute on chronic HFmrEF in the [...] diagnosed HFmrEF, hypertension, osteoporosis Being transferred from [place] for acute on chronic HFmrEF in the [...] MARCO HINDS DO on 06/28/2024 06:08 AM [facility] CenterCssezxbn94-42-4858 Evaluation + Plan noteExtracted from: Title:History and Physical Author:SHASHANK HINDS DO Date:06/28/24 Recurrent paroxysmal atrial fibrillation Acute on chronic HFmrEF in the setting of atrial fibrillation and hypertensive emergency History of: 83-year-old female with history of recently diagnosed atrial fibrillation (status post cardioversion), recently diagnosed HFmrEF, hypertension, osteoporosis Being transferred from [place] for acute on chronic HFmrEF in the [...] Appointment Date:07/10/2024 03:00:00 PM Scheduled Provider:ASIM DIEHL Location:[facility] [place] Appointment Type:CV OV Appointment Date:07/19/2024 03:30:00 PM Scheduled Provider:EMILIANO LEAL DO Location:[facility] [place] Appointment Type:PC OV Appointment Date:08/07/2024 03:00:00 PM Scheduled Provider:ASIM DIEHL Location:[facility] [place] Appointment Type:CV OV Appointment Date:09/11/2024 01:00:00 PM Scheduled Provider:MARCELLE ROSAS Location:[facility] Appointment Type:CV OV Diagnostic Tests Pending * AMIODARONE (CORDARONE), S/P 06/29/24 Future Scheduled Tests Radiology* MA Mammo Diagnostic Right w/ Brian 11/23/23 * US Breast Right Limited 11/23/23 [facility] 03-20-2025 Cardiology Consult note Date of Service [...] disease/mitral regurgitation 5. History of type II GA A-fib RVR 6. Chronic renal disease. Echocardiogram [...] within 2 hrs), Blood, Once, Preferred Lab: [facility] [place], Stop date 06/28/24 10:41:00 EDT 1. Longstanding [...] by MARCELLE ROSAS on 06/28/2024 10:57 AM [facility] CenterQbjbvooq03-18-2493 Note* Exam Date Time Procedure Performing Provider Status 06/28/24 4:57 AM Electrocardiogram - EKG - CV LISANDRO ZACARIAS MD; Auth (Verified) ECG Final Report ATRIAL FIBRILLATION Electronic Signature: LISANDRO LANGE MD 06/29/2024 16:45:39 [facility] CenterHhvzhvhf46-09-1305 History and physical note Date of Service 06/28/2024 04:50:45 History of Present Illness 83-year-old female with history of recently diagnosed atrial fibrillation (status post cardioversion on June 19), recently diagnosed HFmrEF, hypertension, osteoporosis Being transferred from [place] for acute on chronic HFmrEF in the [...] diagnosed HFmrEF, hypertension, osteoporosis Being transferred from [place] for acute on chronic HFmrEF in the [...] MARCO HINDS DO on 06/28/2024 06:08 AM [facility] CenterLtqcfluu33-82-1417 Hospital Discharge instructions Patient Education 06/19/2024 09:03:39 [...] before eating solid foods. General instructions Take iada-bbo-srrgtxl and prescription medicines only as told by [...] 07/18/2016 Document Revised: 06/26/2018 Document Reviewed: 07/18/2016 DivX Patient Education 2020 [employer]. 06/19/2024 09:03:14 3- Cardioversion (01/2018)(CUSTOM) CARDIOVERSION Discharge [...] Document Reviewed: 03/29/2014 ExitCare Patient Information 2015 [employer]. This information is not intended to replace advicegiven to you by your health care provider. Make sure you discuss any questions you have with your health care provider. Follow Up Care 06/13/2024 14:21:55 With:ASIM DIEHL Address: [address] [facility] [place] [address]- [phone] When:07/23/2024 15:30:00 [facility] 03-11-2025 Summary of episode note Discharge Instructions Thank you for allowing [facility] to assist you with your healthcare needs. [...] supplement have been sent electronically to the [facility] in [place]. ------- In regards to your procedure: -No [...] OV 07/19/2024 03:30 PM EDT EMILIANO LEALlap [facility] [address] [place] [id number] Confirmed CV OV 07/23/2024 03:30 PM EDT ASIM DIEHL [facility] Confirmed Follow Up Appointments Follow Up with ASIM DIEHL When:07/23/2024 03:30 PM EDT Where:[address] [facility] [place] [address]- [phone] The Following Activity and Diet Have Been [...] Refills: 3 Take with food Pickup at [facility] Changed apixaban (Eliquis 5 mg oral tablet) 1 tab(s) by mouth Two (2) times a day Pickup at [facility] Unchanged amiodarone (amiodarone 200 mg oral tablet) [...] a day (in the morning) Pharmacy Information [facility]: [address], [place] [id number] [phone] Please take this list to your next [...] before eating solid foods. General instructions Take msmx-yfj-ouywixw and prescription medicines only as told by [...] 07/18/2016 Document Revised: 06/26/2018 Document Reviewed: 07/18/2016 DivX Patient Education 2020 [employer]. CARDIOVERSION Discharge instructions ACTIVITY/SAFETY Please refrain from [...] Document Reviewed: 03/29/2014 ExitCare Patient Information 2015 [employer], [email or web address]. This information is not intended to replace advicegiven to you by your health care provider. Make sure you discuss any questions you have with your health care provider. Additional Information VACCINATE! IT SAVES LIVES! Members of the community who have not yet received the COVID-19 vaccine and would like to receive it can visit one of [facility] vaccine clinics. There are many vaccine clinic locations within the [facility]. For locations and available times, please visit [email or web address].[email or web address]/. It is important to note that some COVID mobile vaccine clinics are held outdoors and may be canceled in rainy or stormy conditions. To learn more about pediatric vaccinations (ages 5-11), we invite you to visit the [facility] webpage. https://www.[facility].org/pages/5493-Woegh-Xszwanizkgj-Snnhkawxcg-Elere-Qco stions.htmlTo learn more about the COVID-19 vaccine, we invite you to visit the CDC website for a list of frequently asked questions.https://www.cdc.gov/coronavirus/2019-ncov/vaccines/faq.html [facility] Patient Portal Access Instructions: Stay connected with your healthcare team and access your personal medical information anytime with the [facility] Patient Portal. Please follow the directions below to create your [employer] account: 1.Access the email account you provided upon registration to the hospital/physician office.2.Look for an invitation email from [facility].3.Open the email and access the invitation link: AcceptInvitation to [facility].4.Fill in the required tripp to create your account. To access your account, visit [email or web address]/AirTight Networkst. Click the blue button labeled Access Patient Portal and then log in with the username and password that you created in the steps above. You will be able to view your test results, lab results, a summary of your visits, upcoming appointments and more. There is also a convenient messaging option where you can send secure messages to your Alexza Pharmaceuticalsvider. In addition, you will have the ability to download any documents or summaries to your computer and/or send the information securely to a physician. Remember that your healthcare information is confidential, so carefully consider who you will allowto register on the [facility] Patient Portal for access to your information. You can also access the [facility] Patient Portal on the [facility] duke. Simply click on Patient Portal and then log into your account. If you would like to receive a full copy of your medical records, please contact the [facility] Medical Records Department by calling [phone], Tuesday through Tuesday between 8 a.m. and [...] Call your local pharmacy or go to http://stiQRd.Page2Images/0J6Fp4a to find one close to you.3.Make use of household items: Use cat litter or old coffee grounds to dispose medications if other options arenot available. Mix your drugs with these household products, seal them in an airtight container andthrow it into the garbage. Call [facility]: [phone] to be sure your drugs can be [...] aware that I should contact my doctor. Patient/Director Of Cloud Services Signature: Date/Time: Relationship to Patient: Witness Name/Signature: Date/Time: [facility] [id number] Discharge summary Date of Service June 19, 2024 GC: Asim Diehl APRN DYE MIXER Discharge Diagnosis Atrial fibrillation, s/p [facility] Hospital Course This is a 83-year-old female [...] Patient underwent successful direct-current cardioversion with subsequent christianity of normal sinus rhythm which she remains [...] prescribed a once daily potassium supplement. Carlos Dielh (your cardiology nurse practitioner) would like for youto have follow-up blood work done in a week from now. - Prescriptions for your new Eliquis dosing and potassium supplement have been sent electronically to the [facility] in [place]. ------- In regards to your procedure: -No [...] ASIM DIEHL When:07/23/2024 03:30 PM EDT [facility] [facility] [address] [facility] [place] [address]- [phone] Follow Up Appointments No qualifying data available. [...] HARRY BAILON MD on 06/19/2024 02:27 PM [facility] CenterTmwkfmys33-11-2139 Procedure note Date of Service June 19, 2024 GC: Asim Diehl APRN CNP Procedure Name Direct-current cardioversion Referring Provider sAim Diehl APRN CNP Consent Patient has been [...] response rate of 76 bpm. Once a WATER OPERATOR administered an IV anesthetic agent and the patient was fully sedated, an anterior-posterior patch placement was utilized to deliver a synchronized biphasic waveform at 150 J with anterior direct pressure which resulted in the christianity of normal sinus rhythm at a heart rate of 68 bpm. The patient tolerated the procedure well and returned to cardiac same day in stable condition. Digitally Signed by ANASTASIYA JEFF on 06/19/2024 09:40 AM [facility] CenterYsbnburu07-16-8227 Anesthesiology Consult note Patient: JED SEWELL Age: [...] list: Medical Atrial fibrillation / SNOMED CT 62433748 / Confirmed Chronic renal failure, stage 3 (moderate) / SNOMED CT 529218084 / Confirmed HFrEF (heart failure with reduced ejection fraction) / SNOMED CT 1725551530 / Confirmed HTN (hypertension) / SNOMED CT [id number] / Confirmed Serum calcium elevated / SNOMED CT 021882236 / Confirmed Osteoporosis / SNOMED CT 623602427 / Confirmed, Active Problems (10) Atrial fibrillation Chronic renal failure, stage 3 (moderate) HFrEF (heart failure with reduced ejection fraction) HTN (hypertension) GA (myocardial infarction) Mitral regurgitation Osteoporosis Serum calcium elevated Shortness of breath Tobacco use Histories Past Medical History: Active HTN (hypertension) ([id number]) Resolved Sciatica (42278750): Resolved. Microalbuminuria (005168466): Resolved. DDD (degenerative disc disease), lumbar (25489101): Resolved. Neck pain on right side (833532315): Resolved. Hypercalcemia (271879944): Resolved. Proteinuria of undiagnosed cause (437020259): Resolved. Acute bronchitis due to infection (450956390): Resolved. Family History: Respiratory disease Father COPD Mother Procedure history: Colonoscopy and biopsy of colon (2672114159) on 11/02/2019 at 78 Years. Colonoscopy (067292529) on 04/11/2011 at 70 Years. Ovarian cyst ([id number]). Appendectomy (606600671). Cholecystectomy (70921118). Abdominal hysterectomy (122599883). Social History: Social & Psychosocial Habits Alcohol [...] Weight 61.3 kg Weight Lbs 134.9 lb [place]ado Body Weight 52.38 kg Admission Body Mass [...] Weight 61.3 kg Weight Lbs 134.9 lb Emerado Body Weight 52.38 kg Admission Body Mass [...] Urinary Elimination Voiding, no difficulties Skin Description Laurens, Dry Skin Temperature Warm Skin Integrity Intact Mucous Membrane Color Laurens Neurological Symptoms Patient denies Extremity Movement Equal [...] #1 We May Share PHI natalie elizabeth- [phone] Designated Person #1 Relationship Daughter Privacy Restrictions Requested None Status N/A Sensory Deficits None Sleep Apnea Snore No Sleep Apnea Tired Yes Sleep Apnea Obstruction No Sleep Apnea Pressure Yes Sleep Apnea BMI No Sleep Apnea Age Yes Sleep Apnea Neck No Sleep Apnea Gender No Sleep Apnea Score 3 Diagnosed With Sleep Apnea No Advanced Directives Yes Advance Directive Type [place] Durable Power of Lidder for [place], [place] Declaration (Living Will) Advance Directive Location [...] Method Explanation, Printed materials Preferred Spoken Language Zambian Preferred Written Language Zambian Teaching Evaluation No further teaching needed Safety Brochure Information Reviewed Yes [facility] [...] Completed (In Progress) . Assessment and Plan [place] Society of Anesthesiologists (ASA) physical status classification: [...] by JAREK CHRISTENSEN on 06/19/2024 09:44 AM [facility] CenterXpwalsao74-65-3140 Hospital Discharge instructions Patient Education 05/29/2024 11:01:38 [...] 12/20/2012 Document Revised: 07/20/2019 Document Reviewed: 02/23/2017 DivX Patient Education 2020 Mob[employer]. 05/29/2024 11:01:05 Atrial Fibrillation, Euch-uy-Uakl Atrial Fibrillation Atrial fibrillation is a type [...] Follow these instructions at home: Medicines Take qoxk-cdt-sdnpplo and prescription medicines only as told by [...] 01/04/2009 Document Revised: 06/01/2018 Document Reviewed: 05/19/2018 DivX Patient Education 2020 Mobstats. Follow Up Care 05/23/2024 13:05:00 With:EMILIANO LEAL DO Address: [address] [place] [phone] When:3-5 days Comments:Please call to schedule your post-hospital follow-up appointment. With:ASIM DIEHL BYPRODUCTS OPERATOR-DYE MIXER Address: [address] [place] [address] [address] [place] [address]- When:06/13/2024 14:00:00 Comments:This is your post-hospital follow-up appointment in [place] with cardiology. [facility] 02-18-2025 Note Discharge Instructions Thank you for allowing [facility] to assist you with your healthcare needs. The following is importantdischarge information regarding your hospital visit. Your Care Team [facility] Your Diagnosis Asthenia Atrial fibrillation Chronic renal failure, stage 3 (moderate) HFrEF (heart failure with reduced ejection fraction) HTN (hypertension) What to do next Scheduled Follow-Up Appointments Appointment Type When With Where Contact Information StatusCV OV Hospital Follow Up 06/13/2024 02:00 PM EST ASIM DIEHL [facility] Confirmed PC OV 07/19/2024 03:30 PM EDT EMILIANO LEAL DO [facility] [address] [place] [phone] Confirmed Follow Up Appointments Follow Up with EMILIANO LEAL DO When:Within 3-5 days Where:[address] [place] [address] [phone] Additional Information: Please call to schedule your post-hospital follow-up appointment. Follow Up with ASIM DIEHL When:06/13/2024 02:00 PM EST Where:[address] [place] [address]- Additional Information: This is your post-hospital follow-up appointment in [place] with cardiology. The Following Activity and Diet [...] a day Duration: [address] [facility] today @ 9a Unchanged apixaban (Eliquis 2.5 mg oral tablet) 1 tab(s) by mouth Two (2) times a day Pickup at [id number] today @ 9a Unchanged denosumab (Prolia 60 mg/ mL subcutaneous solution) 1 Milliliter Subcutaneous Every 6 months Osteoporosis Unchanged dilTIAZem (Cardizem CD 120 mg/ 24 hours oral capsule, extended release) 1 cap by mouth Once a day Pickup at [facility] today @ 9a Unchanged empagliflozin (Jardiance 10 mg oral tablet) 1 tab(s) by mouth Once a day (in the morning) Pickup at [facility] today @ 9a Pharmacy Information [id number]: [address] [place], [place] [phone] [facility]: [address] [place], [place] [phone] What How Much When Comments Stop Taking [...] (such as 'Afib' or atrial flutter with Veztd-Oaahkyudc-Uostq syndrome); a heart condition that causes you [...] (upper right side), tiredness, itching, dark urine, elizbaeth-colored stools, jaundice (yellowing of the skin or [...] may report side effects to FDA at 2-453-OFP-6743. What other drugs will affect diltiazem? Sometimes it is not safe to use certain medicines at the same time. Some drugs can affect your blood levels of other drugs you use, which may increase side effects or make the medicines less effective. Many drugs can affect diltiazem. This includes prescription and veso-bof-vhoublu medicines, vitamins, and herbal products. Not all [...] to ensure that the information provided by [employer]. ('Multum') is accurate, up-to-date, and complete, but no guarantee is made to that effect. Drug information contained herein may be time sensitive. [employer] information has been compiled for use by healthcare practitioners and consumers in the [place] and therefore [employer] does not warrant that uses outside of the [place] are appropriate, unless specifically indicated otherwise. Coins drug information does not endorse drugs, diagnose patients or recommend therapy. Coins drug information isan informational resource designed to [...] effective or appropriate for any given patient. [employer] does not assume any responsibility for any aspect of healthcare administered with the aid of information [employer] provides. The information contained herein is not intended to cover all possible uses, directions, precautions, warnings, drug interactions, allergic reactions, or adverse effects. If you have questions about the drugs you are taking, check with your doctor, nurse or pharmacist. Copyright 9056-4858 [employer]. Version: 19.02. Revision Date: 11/17/2023. Education Materials [...] 12/20/2012 Document Revised: 07/20/2019 Document Reviewed: 02/23/2017 DivX Patient Education 2020 [employer]X Inc. Atrial Fibrillation Atrial fibrillation is a [...] Follow these instructions at home: Medicines Take lwsm-wad-lhcxycq and prescription medicines only as told by [...] 01/04/2009 Document Revised: 06/01/2018 Document Reviewed: 05/19/2018 ElseActionPlanner Patient Education 2020 Mobstats. Additional Information VACCINATE! IT SAVES LIVES! Members of the community who have not yet received the COVID-19 vaccine and would like to receive it can visit one of [facility] vaccine clinics. There are many vaccine clinic locations within the [facility]. For locations and available times, please visit https://[email or web address]/. It is important to note that some COVID mobile vaccine clinics are held outdoors and may be canceled in rainy or stormy conditions. To learn more about pediatric vaccinations (ages 5-11), we invite you to visit the [facility] webpage. https://www.[facility].org/pages/5199-Dfiif-Kuasftmyfhy-Dfdkmrqyyy-Nknth-Dwn stions.htmlTo learn more about the COVID-19 vaccine, we invite you to visit the CDC website for a list of frequently asked questions.https://www.cdc.gov/coronavirus/2019-ncov/vaccines/faq.html [employer] Patient Portal Access Instructions: Stay connected with your healthcare team and access your personal medical information anytime with the [employer] Patient Portal. Please follow the directions below to create your [facility] account: 1.Access the email account you provided upon registration to the hospital/physician office.2.Look for an invitation email from [facility].3.Open the email and access the invitation link: AcceptInvitation to [facility].4.Fill in the required tripp to create your account. To access your account, visit [email or web address] Global Technologieshart. Click the blue button labeled Access Patient [...] who you will allowto register on the [facility] Patient Portal for access to your information. You can also access the [facility] Patient Portal on the [facility] SeeMediawhere duke. Simply click on Patient Portal and then log into your account. If you would like to receive a full copy of your medical records, please contact the [facility] Medical Records Department by calling [phone], Tuesday through Tuesday between 8 a.m. and [...] Call your local pharmacy or go to http://bit.Page2Images/8I6Ld2q to find one close to you.3.Make use of household items: Use cat litter or old coffee grounds to dispose medications if other options arenot available. Mix your drugs with these household products, seal them in an airtight container andthrow it into the garbage. Call [facility]: [phone] to be sure your drugs can be [...] Education Materials Managing Your Hypertension Atrial Fibrillation, Dnnk-jx-Laud Medication Leaflets diltiazem (oral/injection) My discharge plan and instructions have been reviewed and explained to me and I,JED SEWELL understand my current condition and have read and understand these discharge instructions. I have received a written copy of the plan/instructions. If I have questions, I am aware that I should contact my doctor. Patient/Director Of Cloud Services Signature: Date/Time: Relationship to Patient: Witness Name/Signature: Date/Time: [facility]02-18-2025 Pastoral care Progress note Pastoral Care Note Entered On: 05/29/2024 9:31 EST Performed On: 05/29/2024 9:29 EST by Nathaniel Arce Pastoral Care Type of Pastoral Visit : Follow up visit Spiritual Care Visit Initiated by : Fruit Rancher Spiritual Care Reason for Visit : General [...] by Nathaniel Arce on 05/29/2024 09:29 AM [facility]02-12-2025 Note Date of Service 05/23/2024 Chief Complaint weakness History of Present Illness Patient is an 83-year-old female, who follows with Dr. Emiliano Leal with a past medical history significant for hypertension, atrial fibrillation, congestive heart failure and chronic kidney disease stage III, presented to [facility] transitional care unit last 05/18/2024 for ongoing rehab after a stay at [facility] CCU. Patient was admitted to the CCU [...] to be medically optimized and transferred to [facility] on 05/18. She was seen [...] moderate pulmonary edema. Patient was discharged from [facility] and transferred to inpatient status. IV was [...] was stable today and transitioned back to [facility]. She remains on 2L of oxygen but, per daughter, patient has smoked for a long time. She could possibly have some underlying COPD. Discussed with patient that we will try to wean her to room air but she may have to go home on oxygen. family caseworker asked to schedule patient in with Asim [...] Asthenia Consult placed to PT and OT. family caseworker following for discharge planning needs. 2. HTN [...] mg PO daily. 30-day event monitored by [facility] cardiology. Patient will need to follow-up with [...] collaborating with physician, and documenting in chart. CPT#84291 Problem List/Past Medical History Ongoing Chronic renal [...] by DANIELLA HERNANDEZ on 05/23/2024 08:06 PM [facility]-2025 Hospital Discharge instructions Patient Education 05/23/2024 12:11:10 [...] Follow these instructions at home: Medicines Take aypq-zss-cqsgjvn and prescription medicines only as told by your health care provider. Do not stop taking your medicines or change the amount you take. If you are having problems or sideeffects from your medicines, talk to your health care provider. If you are having difficulty paying for your medicines, contact a forensic social worker or your clinic. There are [...] 08/09/2017 Document Revised: 03/10/2018 Document Reviewed: 08/09/2017 DivX Patient Education BitG[employer]. Follow Up Care 05/20/2024 01:31:46 With:ASIM DIEHL Address: [address] [place] [address] [address] [facility] [place] [phone] When:5 to 7 days Comments:follow-up in the office [facility] 02-12-2025 Evaluation + Plan noteExtracted from: Title:History and Physical Author:DANIELLA HERNANDEZ Date:05/23/24 1. Asthenia Consult placed to PT and OT. family caseworker following for discharge planning needs. 2. HTN [...] mg PO daily. 30-day event monitored by [facility] cardiology. Patient will need to follow-up with [...] collaborating with physician, and documenting in chart. CPT#64540 Future Appointments Appointment Date:06/13/2024 02:00:00 PM Scheduled Provider:ASIM DIEHL Location:[facility] Appointment Type:CV OV Hospital Follow Up Appointment Date:07/19/2024 03:30:00 PM Scheduled Provider:EMILIANO LEAL DO Location:[facility] Appointment Type: OV Future Scheduled Tests Laboratory* Basic Metabolic Panel 05/17/24 * Calcium Level Ionized 05/17/24 * PTH, Intact 05/17/24 Radiology* [place] Mammo Diagnostic Right w/ Brian 11/23/23 * US Breast Right Limited 11/23/23 [facility] 02-12-2025 Note Discharge Instructions Thank you for allowing [facility] to assist you with your healthcare needs. The following is importantdischarge information regarding your hospital visit. Your Care Team Daniella Hernandez CNP Your Diagnosis Atrial fibrillation CHF exacerbation Chronic renal failure, stage 3 (moderate) HTN (hypertension) Mitral regurgitation Type 2 GA (myocardial infarction) What to do next Instructions From Your Doctor You were admitted to [facility] transitional care [facility] for ongoing rehab before going home. [...] You are medically optimized for discharge to [facility] today. Scheduled Follow-Up Appointments Appointment Type When With Where Contact Information StatusCV OV Hospital Follow Up 06/13/2024 02:45 PM EST KIMBERLY AGUILAR [facility] [place] Confirmed PC OV 07/19/2024 03:30 PM EDT EMILIANO LEAL [facility] [place] [address] [place] [address] Confirmed Follow Up Appointments Follow Up with ASIM DIEHL When:Within 5 to 7 days Where:[address] [place] [address] [phone] Additional Information: follow-up in the office The [...] Follow these instructions at home: Medicines Take jlvv-usk-vpnwjsq and prescription medicines only as told by your health care provider. Do not stop taking your medicines or change the amount you take. If you are having problems or sideeffects from your medicines, talk to your health care provider. If you are having difficulty paying for your medicines, contact a forensic social worker or your clinic. There are [...] 08/09/2017 Document Revised: 03/10/2018 Document Reviewed: 08/09/2017 DivX Patient Education 2020 Mobstats. Additional Information VACCINATE! IT SAVES LIVES! Members of the community who have not yet received the COVID-19 vaccine and would like to receive it can visit one of [facility] vaccine clinics. There are many vaccine clinic locations within the [facility]. For locations and available times, please visit https://[email or web address].gov/. It is important to note that some COVID mobile vaccine clinics are held outdoors and may be canceled in rainy or stormy conditions. To learn more about pediatric vaccinations (ages 5-11), we invite you to visit the [facility] webpage. https://www.[facility].org/pages/6175-Tqqlm-Xexbbnaeytn-Adjqzuchiy-Uylsd-Nkg stions.htmlTo learn more about the COVID-19 vaccine, we invite you to visit the CDC website for a list of frequently asked questions.https://www.cdc.gov/coronavirus/2019-ncov/vaccines/faq.html [employer] Patient Portal Access Instructions: Stay connected with your healthcare team and access your personal medical information anytime with the [employer] Patient Portal. Please follow the directions below to create your [employer] account: 1.Access the email account you provided upon registration to the hospital/physician office.2.Look for an invitation email from [facility].3.Open the email and access the invitation link: AcceptInvitation to [facility].4.Fill in the required tripp to create your account. To access your account, visit [email or web address]. Click the blue button labeled Access Patient [...] who you will allowto register on the [facility] Patient Portal for access to your information. You can also access the [facility] Patient Portal on the [facility] duke. Simply click on Patient Portal and then log into your account. If you would like to receive a full copy of your medical records, please contact the [facility] Medical Records Department by calling [phone], Tuesday through Tuesday between 8 a.m. and [...] Call your local pharmacy or go to http://bit.Page2Images/8B0Ak8t to find one close to you.3.Make use of household items: Use cat litter or old coffee grounds to dispose medications if other options arenot available. Mix your drugs with these household products, seal them in an airtight container andthrow it into the garbage. Call [facility]: [phone] to be sure your drugs can be [...] aware that I should contact my doctor. Patient/Director Of Cloud Services Signature: Date/Time: Relationship to Patient: Witness Name/Signature: Date/Time: [facility]02-11-2025 Note Date of Service 05/22/2024 Chief Complaint [...] by DANIELLA HERNANDEZ on 05/22/2024 03:21 PM [facility]02-11-2025 Note Date of Service 05/22/24 Chief Complaint Afib and CHF Subjective This is a pleasant 83-year-old female patient who was admitted to the hospital from the swing unit for persistent atrial fibrillation with RVR. Patient [facility]24to 05/18/2024 for atrial fibrillation with RVR, HFrEF, and hypertension. Initially she was transferred from [facility] to [facility] due to shortness of breath and bilateral [...] load andLasix p.o. She went to the [facility] swing unit. Yesterday patient went back into [facility] with RVR andacutely had shortness of breath and pulmonary edema. She was transferred to [facility] and initiated on BiPAP and given IV [...] and Cardizem 30 mg 4 times daily. [id number] score 5. *Will transition short acting Cardizem to Cardizem CD 120 once a day *Okay to discharge back to swing unit. *Follow-up in 1 week. 2. Type 2 GA (myocardial infarction) Troponin stable. Most likely due to atrial fibrillation with RVR and pulmonary edema. Will evaluatefor ischemic workup once patient is discharged home. 3. CHF exacerbation Patient appears euvolemic today. [place] Heart Association class III. I think most [...] by ASIM DIEHL on 05/22/2024 08:56 AM [facility]02-10-2025 Note Date of Service 05/21/2024 Chief Complaint [...] by DANIELLA HERNANDEZ on 05/21/2024 03:51 PM [facility]02-09-2025 Note Date of Service 05/20/2024 Chief Complaint severe dyspnea History of Present Illness Patient is an 83-year-old female, who follows with Dr. Emiliano Leal with a past medical history significant for hypertension, chronic kidney disease stage 3, atrial fibrillation, and heart failure,presented to [facility] transitional care program on 05/18 for ongoing rehab. She was admitted to [facility] CCU from 05/13-05/18 for treatment of new [...] was discussed with collaborating physician, Dr. Rylan oRdriguez. 77 minutes spent reviewing past diagnostic tests, [...] by DANIELLA HERNANDEZ on 05/20/2024 02:52 PM [facility]02-09-2025 Evaluation + Plan noteExtracted from: Title:History and [...] Date:07/19/2024 03:30:00 PM Scheduled Provider:EMILIANO LEAL DO Location:[facility] Appointment Type:PC OV Future Scheduled Tests Laboratory* Basic Metabolic Panel 05/17/24 * Calcium Level Ionized 05/17/24 * PTH, Intact 05/17/24 Radiology* MA Mammo Diagnostic Right w/ Brian 11/23/23 * US Breast Right Limited 11/23/23 [facility] 02-09-2025 Nurse Progress note [id number] Patient hit call light. When i entered the room she was sitting at the side of the bed saying ''I can't breathe''. I checked her oxygen saturation she was 81% on 2L. Oxygen increased to 4L and Inotified her primary care nurse Natalie ENCINAS. Ruddy SEQUEIRA RN Digitally Signed by CE Sequeira on 05/20/2024 12:43 AM [facility]02-09-2025 Note Date of Service 05/20/2024 Interval cross coverage note. CC: Acute respiratory failure concern for flash pulmonary edema. 73-year-old female with significant past medical history of hypertension, chronic kidney disease stage III, atrial fibrillation, heart failure with reduced ejection fraction (40 to 45%) that initially was admitted to [facility] CCU on 05/13/2024 with new onset atrial fibrillation with RVR, new onset heart failure, and NSTEMI. Patient was treated medically and underwent cardioversion x 3 with the last attempt successful while on IV amiodarone. Patient was medically optimized and discharged to [facility] TCU on 05/18/2024. This evening I [...] Patient discharged from TCU and admitted to [facility] inpatient with telemetry monitoring due to [...] Natalie Elizabeth was notified via telephone at [phone]. She was updated on the acute change in her mother's status and the plan to discharge her from TCU and admit her to inpatient status at [facility] for further medical management. Will attempt to manage patient at [facility], however if she continues to decompensate or does not appropriately respond to therapy she may require transfer to [facility] for additional resources not available at [facility]. Questions answered and daughter is amenable to the plan of care. Digitally Signed by RHINA FALCON on 05/20/2024 02:47 AM [facility]02-09-2025 Note* Exam Date Time Procedure Performing Provider Status 05/20/24 12:05 AM XR Chest 1 View DOMENIC MENEZES MD; Auth (Verified) [id number] ORIGINAL EXAMINATION: ONE XRAY VIEW OF THE [...] Sign Date: 05/20/2024 12:11:45 AM Ordering Provider: [facility]02-08-2025 Evaluation + Plan noteExtracted from: Title:History and Physical Author:DANIELLA HERNANDEZ BYPRODUCTS OPERATOR-DYE MIXER Date:05/19/24 1. Asthenia Consult placed to PT and OT to evaluate and treat. family caseworker consulted for discharge planning. 2. HTN (hypertension) [...] collaborating with physician, and documenting in chart. CPT#46153 Future Appointments Appointment Date:06/13/2024 02:45:00 PM Scheduled Provider:KIMBERLY AGUILAR Location:[facility] Appointment Type:CV OV Hospital Follow Up Appointment Date:07/19/2024 03:30:00 PM Scheduled Provider:EMILIANO LEAL DO Location:[facility] Appointment Type:PC OV Future Scheduled Tests Laboratory* Basic Metabolic Panel 05/17/24 * Calcium Level Ionized 05/17/24 * PTH, Intact 05/17/24 Radiology* MA Mammo Diagnostic Right w/ Brian 11/23/23 * US Breast Right Limited 11/23/23 [facility] 02-08-2025 Note Date of Service 05/19/2024 Chief Complaint weakness History of Present Illness Patient is an 83-year-old female, who follows with Dr. Emiliano Leal with a past medical history significant for hypertension, chronic kidney disease stage 3, atrial fibrillation and heart failure with reduced EF 40-45%, presented to [facility] emergency department with chief complaint of shortness of breath on 05/13/2024. Patient was transferred to [facility] CCU with new onset atrial fibrillation with [...] Patient was medically optimized for discharge to [facility] last evening. Patient seen and [...] PT and OT to evaluate and treat. family caseworker consulted for discharge planning. 2. HTN (hypertension) [...] collaborating with physician, and documenting in chart. CPT#53525 Problem List/Past Medical History Ongoing Chronic renal [...] by DANIELLA HERNANDEZ on 05/19/2024 12:28 PM [facility]02-07-2025 Hospital Discharge instructions Patient Education 05/18/2024 14:44:35 [...] medicine to help you relax (sedative). Take lepl-ngj-lgrapow and prescription medicines only as told by [...] 01/16/2014 Document Revised: 03/10/2018 Document Reviewed: 10/01/2016 DivX Patient Education 2020 [employer]. Follow Up Care 05/13/2024 14:21:07 With:[facility]- Room 237, nurse to nurse [phone]. Address:Unknown When:1-2 days With:EMILIANO LEAL Address: [address] [place] [address]- [phone] Business (1) When:1-2 days Comments:Please call the office to schedule a hospital follow up appointment With:ABHIJEET AGUILAR MD Address: [address] [facility] [place] [address]- [phone] When:06/13/2024 14:45:00 With:Readmission Risk Score Address:Unknown When: Unknown Comments:11 [facility] 02-07-2025 Note Discharge Instructions Thank you for allowing [facility] to assist you with your healthcare needs. The following is importantdischarge information regarding your hospital visit. Your Care Team EMILIANO LEAL DO Your Diagnosis Afib Atrial fibrillation What to do next Instructions From Your Doctor 1. Kindly follow up with your Primary Care Physician and Disaster Recovery Analyst as recommended. _ 2. Please take Amiodarone [...] reach out to our [facility] office at [phone] for general queries and [phone] for medication refills. 5. All your medical records and results are available to you through our Greasebook Patient Portal. Tosign up, please visit [email or web address] Scheduled Follow-Up Appointments Appointment Type When With Where Contact Information StatusCV OV Hospital Follow Up 06/13/2024 02:45 PM EST [facility]BERLY [facility] OV 07/19/2024 03:30 PM EDT EMILIANO LEAL DO [address] [address] Confirmed Follow Up Appointments Follow Up with EMILIANO LEAL When:Within 1-2 days Where:[address] [place], [place] [address]- [phone] Business (1) Additional Information: Please call the office to schedule a hospital follow up appointment Follow Up with Readmission Risk Score Additional Information: 11 Follow Up with ABHIJEET AGUILAR MD When:06/13/2024 02:45 PM EST Where:[address] [place] [address]- [phone] The Following Activity and Diet Have Been [...] within 14 days after discharge, please call [facility] at [phone]. Post Acute Orders Transfer of Care Code [...] a day Take with food. Pickup at [facility] New amiodarone (amiodarone 200 mg oral tablet) 2 tab(s) by mouth Twice daily with meals Duration: [address] [facility] New apixaban (Eliquis 5 mg oral tablet) 1 tab(s) by mouth Two (2) times a day Refills: [address] [facility] New furosemide (Lasix 40 mg oral tablet) 1 tab(s) by mouth Once a day Pickup at [facility] New metoprolol (Toprol-XL 50 mg oral tablet, extended release) 1 tab(s) by mouth Twice daily with meals Pickup at [facility] Unchanged denosumab (Prolia 60 mg/ mL subcutaneous solution) 1 Milliliter Subcutaneous Every [address] [facility]: [address], [place] [id number] [phone] What How Much When Why Comments Stop [...] medicines at the same time (including some hzap-etq-afldytj medicines). Tell your doctor about all medicines [...] may report side effects to FDA at 8-574-PLH-4963. What other drugs will affect apixaban? Sometimes it is not safe to use certain medications at the same time. Some drugs can affect your blood levels of other drugs you take, which may increase side effects or make the medications less effective. Many other drugs (including some dswi-ybm-xgkeeut medicines) can increase your risk of bleeding or blood clots. Tell your doctor about all medicines you have recently used, especially: any other medicines to treat or prevent blood clots; a blood thinner such as heparin or warfarin (Coumadin, Jantoven); an antidepressant; or aspirin or other NSAID (nonsteroidal anti-inflammatory drug) used computer terminal operator. This list is not complete and many other drugs may affect apixaban. This includes prescription and jeio-tqy-qoscgnk medicines, vitamins, and herbal products. Not all [...] to ensure that the information provided by [employer]. ('Multum') is accurate, up-to-date, and complete, but no guarantee is made to that effect. Drug information contained herein may be time sensitive. [employer] information has been compiled for use by healthcare practitioners and consumers in the [place] and therefore [employer] does not warrant that uses outside of the [place] are appropriate, unless specifically indicated otherwise. Coins drug information does not endorse drugs, diagnose patients or recommend therapy. Coins drug information isan informational resource designed to [...] effective or appropriate for any given patient. [employer] does not assume any responsibility for any aspect of healthcare administered with the aid of information [employer] provides. The information contained herein is not intended to cover all possible uses, directions, precautions, warnings, drug interactions, allergic reactions, or adverse effects. If you have questions about the drugs you are taking, check with your doctor, nurse or pharmacist. Copyright 2425-3174 [employer]. Version: 6.01. Revision Date: 12/02/2020. amiodarone (oral) [...] products. Avoid taking an herbal supplement containing Acacia Villas's wort. Amiodarone could make you sunburn more [...] may report side effects to FDA at 3-420-EPJ-3120. What other drugs will affect amiodarone? Sometimes [...] can affect amiodarone. This includes prescription and syea-qnl-ztibjbm medicines, vitamins, and herbal products. Not all [...] to ensure that the information provided by [employer]. ('Multum') is accurate, up-to-date, and complete, but no guarantee is made to that effect. Drug information contained herein may be time sensitive. [employer] information has been compiled for use by healthcare practitioners and consumers in the [place] and therefore [employer] does not warrant that uses outside of the [place] are appropriate, unless specifically indicated otherwise. Coins drug information does not endorse drugs, diagnose patients or recommend therapy. Coins drug information isan informational resource designed to [...] effective or appropriate for any given patient. [employer] does not assume any responsibility for any aspect of healthcare administered with the aid of information [employer] provides. The information contained herein is not intended to cover all possible uses, directions, precautions, warnings, drug interactions, allergic reactions, or adverse effects. If you have questions about the drugs you are taking, check with your doctor, nurse or pharmacist. Copyright 4782-5680 [employer]. Version: 7.01. Revision Date: 02/14/2018. Education Materials [...] medicine to help you relax (sedative). Take mgjk-ekz-knyqrta and prescription medicines only as told by [...] 01/16/2014 Document Revised: 03/10/2018 Document Reviewed: 10/01/2016 ElseActionPlanner Patient Education 2020 [employer]X [employer]. Additional Information VACCINATE! IT SAVES LIVES! Members of the community who have not yet received the COVID-19 vaccine and would like to receive it can visit one of [facility] vaccine clinics. There are many vaccine clinic locations within the [facility]. For locations and available times, please visit [email or web address].[email or web address] It is important to note that some COVID mobile vaccine clinics are held outdoors and may be canceled in rainy or stormy conditions. To learn more about pediatric vaccinations (ages 5-11), we invite you to visit the [facility] webpage. [email or web address]/[email or web address]-Yptsiatavg-[email or web address] stions.htmlTo learn more about the COVID-19 vaccine, we invite you to visit the CDC website for a list of frequently asked questions.https://www.cdc.gov/coronavirus/2019-ncov/vaccines/faq.html [employer] Patient Portal Access Instructions: Stay connected with your healthcare team and access your personal medical information anytime with the [facility] Patient Portal. Please follow the directions below to create your [facility] account: 1.Access the email account you provided upon registration to the hospital/physician office.2.Look for an invitation email from [facility].3.Open the email and access the invitation link: AcceptInvitation to [facility].4.Fill in the required tripp to create your account. To access your account, visit [email or web address]. Click the blue button labeled Access Patient Portal and then log in with the username and password that you created in the steps above. You will be able to view your test results, lab results, a summary of your visits, upcoming appointments and more. There is also a convenient messaging option where you can send secure messages to your Alexza Pharmaceuticalsvider. In addition, you will have the ability to download any documents or summaries to your computer and/or send the information securely to a physician. Remember that your healthcare information is confidential, so carefully consider who you will allowto register on the [facility] Patient Portal for access to your information. You can also access the [facility] Patient Portal on the [facility] duke. Simply click on Patient Portal and then log into your account. If you would like to receive a full copy of your medical records, please contact the [facility] Medical Records Department by calling [phone], Tuesday through Tuesday between 8 a.m. and [...] Call your local pharmacy or go to http://bit.Page2Images/5X6Vz8s to find one close to you.3.Make use of household items: Use cat litter or old coffee grounds to dispose medications if other options arenot available. Mix your drugs with these household products, seal them in an airtight container andthrow it into the garbage. Call [facility]: [phone] to be sure your drugs can be [...] aware that I should contact my doctor. Patient/Director Of Cloud Services Signature: Date/Time: Relationship to Patient: Witness Name/Signature: Date/Time: [id number] Discharge summary Date of Service 05/18/2024 Discharge Diagnosis New onset atrial fibrillation with RVR [id number] 5 points Acute hypoxic respiratory failure secondary HFrEF Acute on Chronic HFrEF (EF 40-45%), likely tachyarrhythmia induced Hypertension Osteoporosis Hospital Course 83-year-old with medical history significant for hypertension, and osteoporosis who presents as a transfer from [facility] due to shortness of breath. [...] up with your Primary Care Physician and Disaster Recovery Analyst as recommended. _ 2. Please take Amiodarone [...] reach out to our [facility] office at [phone] for general queries and [phone] for medication refills. 5. All your medical records and results are available to you through our Greasebook Patient Portal. Tosign up, please visit [email or web address] Medications New Prescription amiodarone (amiodarone 200 mg [...] with EMILIANO LEAL When:Within 1-2 days Where:[address] [place] [address] [phone] Business (1) Additional Information: Please call the office to schedule a hospital follow up appointment Follow Up with Readmission Risk Score Additional Information: 11 Follow Up with ABHIJEET AGUILAR MD When:06/13/2024 02:45 PM EST Where:[address] [facility] [place] [address]- [phone] Follow Up Appointments No qualifying data available. [...] Digitally Signed by VICTOR MANUEL PETERSON MD [facility] [id number] Cardiology Progress note Date of Service 05/15/2024 [...] Assessment/Plan New onset atrial fibrillation with RVR [id number] 5 points Acute hypoxic respiratory failure secondary to new onset CHF Hypertension Osteoporosis Patient presents as a transfer from [facility] for evaluation of dyspnea on [...] GEETA BEASLEY MD on 05/15/2024 02:41 PM [facility] [id number] Cardiology procedure note Date of Service May [...] heart rate of 88 bpm. Once a WATER OPERATOR ministered an IV anesthetic agent the patient [...] by MARCELLE ROSAS on 05/18/2024 10:19 AM [facility] CenterBxnajavg39-29-6683 Anesthesiology Consult note Patient: JED SEWELL Age: [...] failure, stage 3 (moderate) / SNOMED CT 284833624 / Confirmed HTN (hypertension) / SNOMED CT [id number] / Confirmed Serum calcium elevated / SNOMED CT 744718449 / Confirmed Osteoporosis / SNOMED CT 633073057 / Confirmed, Active Problems (6) Chronic renal failure, stage 3 (moderate) HTN (hypertension) Osteoporosis Serum calcium elevated Shortness of breath Tobacco use Histories Past Medical History: Active HTN (hypertension) ([id number]) Resolved Sciatica (86881324): Resolved. Microalbuminuria (137824060): Resolved. DDD (degenerative disc disease), lumbar (76698639): Resolved. Neck pain on right side (471613643): Resolved. Hypercalcemia (701353157): Resolved. Proteinuria of undiagnosed cause (787384165): Resolved. Acute bronchitis due to infection (089126780): Resolved. Family History: Respiratory disease Father COPD Mother Procedure history: Colonoscopy and biopsy of colon (1100449181) on 11/02/2019 at 78 Years. Colonoscopy (286987592) on 04/11/2011 at 70 Years. Ovarian cyst ([id number]). Appendectomy (819131061). Cholecystectomy (48085992). Abdominal hysterectomy (888370055). Social History: Social & Psychosocial Habits Alcohol [...] Oral36.6 DegC (MAY 18 08:29) Heart Rate Aufevq26 bpm (MAY 18 08:38) SBPH 154 mmHg [...] range of motion. Integumentary: Intact, Warm, Dry, [place]. Neurologic: Alert, Oriented. Review / Management Results [...] 16)H 53.5(MAY 15) . Assessment and Plan [place] Society of Anesthesiologists (ASA) physical status classification: [...] MARIA TODD DO on 05/18/2024 10:09 AM [facility] CenterClmgvtxa91-05-7494 Cardiology Progress note Date of Service 05/16/2024 [...] Assessment/Plan New onset atrial fibrillation with RVR JNU5BB8-ULHh 5 points Acute hypoxic respiratory failure secondary to new onset CHF Hypertension Osteoporosis Patient presents as a transfer from [facility] for evaluation of dyspnea on [...] GEETA BEASLEY MD on 05/16/2024 04:44 PM [facility] CenterLlylehsn13-40-1374 Cardiology Progress note Date of Service 05/17/2024 [...] Assessment/Plan New onset atrial fibrillation with RVR YAS1HO3-BYKp 5 points Acute hypoxic respiratory failure secondary to new onset CHF Hypertension Osteoporosis Patient presents as a transfer from [facility] for evaluation of dyspnea on [...] GEETA BEASLEY MD on 05/17/2024 02:49 PM [facility] CenterQjqypsst32-03-8495 Cardiology Progress note Date of Service 05/17/2024 [...] Assessment/Plan New onset atrial fibrillation with RVR DMU5GT7-RWMo 5 points Acute hypoxic respiratory failure secondary to new onset CHF Hypertension Osteoporosis Patient presents as a transfer from [facility] for evaluation of dyspnea on [...] GEETA BEASLEY MD on 05/17/2024 02:49 PM [facility] [id number] Cardiology procedure note Date of Service May [...] heart rate of 91 bpm. Once a WATER OPERATOR administered an IV anesthetic agent the patient [...] by MARCELLE ROSAS on 05/17/2024 11:02 AM [facility] CenterQbafvulq10-39-3977 Anesthesiology Consult note Patient: JED SEWELL Age: [...] q6mo, # 1 mL, 0 Refill(s), Pharmacy: [facility], Osteoporosis, 158, cm, 02/23/24 10:19:00 EST, Height, kg,02/23/24 10:19:00 EST, Dosing Weight bisoprolol 5 mg oral tablet: Dose : 5 mg = 1 tab(s), Oral, qHS, # 30 tab(s), 0 Refill(s), Pharmacy:[facility], HTN (hypertension), 158, cm, 04/19/24 14:50:00 EST, Height, kg, 04/19/24 14:50:00 EST, Dosing Weight valsartan 320 mg oral tablet: Dose : 320 mg = 1 tab(s), Oral, qDay, Replaces previous prescription for valsartan 160 mg tablets., # 90 tab(s), 3 Refill(s), Pharmacy: [facility], 158, cm, 02/23/24 10:19:00 EST, Height, kg, [...] failure, stage 3 (moderate) / SNOMED CT 941635339 / [facility] [id number] / Confirmed Serum calcium elevated / SNOMED CT 524093980 / Confirmed Osteoporosis / SNOMED CT 887678309 / Confirmed, Active Problems (6) Chronic renal failure, stage 3 (moderate) HTN (hypertension) Osteoporosis Serum calcium elevated Shortness of breath Tobacco use Histories Past Medical History: Active HTN (hypertension) ([id number]-[id number]) Resolved Sciatica ([id number]): Resolved. Microalbuminuria (536161964): Resolved. DDD (degenerative disc disease), lumbar (96849825): Resolved. Neck pain on right side (672577502): Resolved. Hypercalcemia (637664279): Resolved. Proteinuria of undiagnosed cause (772211161): Resolved. Acute bronchitis due to infection (073807091): Resolved. Family History: Respiratory disease Father COPD Mother Procedure history: Colonoscopy and biopsy of colon ([id number]) on 11/02/2019 at 78 Years. Colonoscopy ([id number]) on 04/11/2011 at 70 Years. Ovarian cyst ([id number]). Appendectomy (163132067). Cholecystectomy (10115789). Abdominal hysterectomy (866504328). Social History: Social & Psychosocial Habits Alcohol [...] Type 0-10 Pain scale Nail Bed Color Laurens Capillary Refill < 2 seconds Heart Sounds [...] facial grimaces, Symmetric resting/crying All Extremity Description Laurens, Normal for ethnicity Skin Temperature Warm Temperature All Extremities Warm Skin Description Laurens, Normal for ethnicity, Dry Skin Integrity Pressure points intact Skin Turgor Non-Elastic Mucous Membrane Color Laurens Mucous Membrane Description Moist Continuous IV Infusions [...] Type 0-10 Pain scale Nail Bed Color Laurens Capillary Refill < 2 seconds Heart Sounds [...] facial grimaces, Symmetric resting/crying All Extremity Description Laurens, Normal for ethnicity Skin Temperature Warm Temperature All Extremities Warm Skin Description Laurens, Normal for ethnicity, Dry Skin Integrity Intact Skin Turgor Non-Elastic Mucous Membrane Color Laurens Mucous Membrane Description Moist Continuous IV Infusions [...] Type 0-10 Pain scale Nail Bed Color Laurens Capillary Refill < 2 seconds Dorsalis Pedis [...] facial grimaces, Symmetric resting/crying All Extremity Description Laurens, Normal for ethnicity Skin Temperature Warm Temperature All Extremities Warm Skin Description Laurens, Normal for ethnicity Skin Integrity Pressure points intact Skin Turgor Non-Elastic Mucous Membrane Color Laurens Mucous Membrane Description Moist Sensory Perception Jose [...] Alert Aspiration Risk None Eye Opening Response Alderson Spontaneously Best Motor Response Ignacia Obeys simple [...] evident Teaching Method Explanation Preferred Spoken Language Zambian Preferred Written Language Zambian Family/Caregiver Prefer Spoken Language Zambian Family/Caregiver Prefer Written Language Zambian Disease Process General Education Disease process, Signs/Symptoms [...] On and Limits Checked Nail Bed Color Laurens Capillary Refill < 2 seconds Heart Sounds [...] Site Condition: No complications All Extremity Description Laurens, Normal for ethnicity Skin Temperature Warm Temperature All Extremities Warm Skin Description Laurens, Normal for ethnicity, Dry Skin Integrity Intact Skin Turgor Non-Elastic Mucous Membrane Color Laurens Mucous Membrane Description Moist Neurological Language Able to speak clearly, Follows simple commands Neurological Symptoms Weakness Characteristics of Communication Appropriate Level of Consciousness Alert Eye Opening Response Ignacia Spontaneously Best Motor Response Ignacia Obeys simple commands Best Verbal Response Alderson Oriented Ignacia Coma Score 15 SEDA Yes [...] On and Limits Checked Nail Bed Color Laurens Capillary Refill < 2 seconds Heart Sounds [...] Movement Makes facial grimaces All Extremity Description Laurens, Normal for ethnicity Skin Temperature Warm Temperature All Extremities Warm Skin Description Laurens, Normal for ethnicity Skin Integrity Intact Skin Turgor Non-Elastic Mucous Membrane Color Laurens Mucous Membrane Description Moist Antecubital Left 05/13/2024 [...] Ignacia Obeys simple commands Best Verbal Response Alderson Oriented Alderson Coma Score 15 SEDA Yes Left Pupil [...] On and Limits Checked Nail Bed Color Laurens Capillary Refill < 2 seconds Heart Sounds [...] Movement Makes facial grimaces All Extremity Description Laurens, Normal for ethnicity Skin Temperature Warm Temperature All Extremities Warm Skin Description Laurens, Normal for ethnicity, Dry Skin Integrity Intact Skin Turgor Non-Elastic Mucous Membrane Color Laurens Mucous Membran (more content not included)... [id number] Cardiology Progress note Date of Service 05/16/2024 [...] Assessment/Plan New onset atrial fibrillation with RVR [id number] 5 points Acute hypoxic respiratory failure secondary to new onset CHF Hypertension Osteoporosis Patient presents as a transfer from [facility] for evaluation of dyspnea on [...] GEETA BEASLEY MD on 05/16/2024 04:44 PM [facility] [id number] Note* Exam Date Time Procedure Performing Provider Status 05/16/24 12:24 PM Echocardiogram, Adult - CV JUSTIN MATTHEWS MD; Auth (Verified) [facility] [id number] Cardiology Progress note Date of Service 05/15/2024 [...] Assessment/Plan New onset atrial fibrillation with RVR [id number] 5 points Acute hypoxic respiratory failure secondary to new onset CHF Hypertension Osteoporosis Patient presents as a transfer from [facility] for evaluation of dyspnea on [...] GEETA BEASLEY MD on 05/15/2024 02:41 PM [facility] [id number] Note* Exam Date Time Procedure Performing Provider Status 05/15/24 12:05 PM Electrocardiogram - EKG - CV CELE AGUILAR MD; Auth (Verified) ECG Final Report SINUS RHYTHM LEFT ATRIAL ENLARGEMENT LVH WITH SECONDARY REPOLARIZATION ABNORMALITY Electronic Signature: ABHIJEET AGUILAR MD 05/16/2024 22:24:32 [facility] [id number] Cardiology procedure note Date of Service May [...] heart rate approximately 110 bpm. Once a WATER OPERATOR administered an IV anesthetic agent the patient [...] by MARCELLE ROSAS on 05/15/2024 11:26 AM [facility] [id number] Note* Exam Date Time Procedure Performing Provider Status 05/15/24 10:49 AM Transesophageal Echocardiogram - CV LISA BOSS MD; Auth (Verified) [facility] [id number] Anesthesiology Consult note Patient: JED SEWELL Age: [...] q6mo, # 1 mL, 0 Refill(s), Pharmacy: [facility], Osteoporosis, 158, cm, 02/23/24 10:19:00 EST, Height, kg,02/23/24 10:19:00 EST, Dosing Weight bisoprolol 5 mg oral tablet: Dose : 5 mg = 1 tab(s), Oral, qHS, # 30 tab(s), 0 Refill(s), Pharmacy:[facility], HTN (hypertension), 158, cm, 04/19/24 14:50:00 EST, Height, kg, 04/19/24 14:50:00 EST, Dosing Weight valsartan 320 mg oral tablet: Dose : 320 mg = 1 tab(s), Oral, qDay, Replaces previous prescription for valsartan 160 mg tablets., # 90 tab(s), 3 Refill(s), Pharmacy: [facility], 158, cm, 02/23/24 10:19:00 EST, Height, kg, [...] failure, stage 3 (moderate) / SNOMED CT 757680640 / Confirmed HTN (hypertension) / [facility] [id number] / Confirmed Serum calcium elevated / SNOMED CT 768590845 / Confirmed Osteoporosis / SNOMED CT 368279626 / Confirmed, Active Problems (6) Chronic renal failure, stage 3 (moderate) HTN (hypertension) Osteoporosis Serum calcium elevated Shortness of breath Tobacco use Histories Past Medical History: Active HTN (hypertension) ([id number]) Resolved Sciatica (50512357): Resolved. Microalbuminuria (166121397): Resolved. DDD (degenerative disc disease), lumbar (02353175): Resolved. Neck pain on right side (261711164): Resolved. Hypercalcemia (418053147): Resolved. Proteinuria of undiagnosed cause (257815564): Resolved. Acute bronchitis due to infection (488212461): Resolved. Family History: Respiratory disease Father COPD Mother Procedure history: Colonoscopy and biopsy of colon (7246009178) on 11/02/2019 at 78 Years. Colonoscopy (174939817) on 04/11/2011 at 70 Years. Ovarian cyst ([id number]). Appendectomy (760784918). Cholecystectomy (82632688). Abdominal hysterectomy (618233592). Social History: Social & Psychosocial Habits Alcohol [...] evident Teaching Method Explanation Preferred Spoken Language Zambian Preferred Written Language Zambian Anticoag. Med Educated Heparin Reason/Purpose of Anticoagulant [...] Type 0-10 Pain scale Nail Bed Color Laurens Capillary Refill < 2 seconds Heart Sounds [...] intact Skin Turgor Non-Elastic Mucous Membrane Color Laurens Mucous Membrane Description Moist Sensory Perception Jose [...] mL 05/14/2024 23:07 EST Nail Bed Color Laurens Capillary Refill < 2 seconds Dorsalis Pedis [...] facial grimaces, Symmetric resting/crying All Extremity Description Laurens, Normal for ethnicity Skin Temperature Warm Temperature All Extremities Warm Skin Description Laurens, Normal for ethnicity, Dry Skin Integrity Intact Skin Turgor Non-Elastic Mucous Membrane Color Laurens Mucous Membrane Description Moist Neurological Language Able to speak clearly, Follows simple commands Neurological Symptoms Weakness Gait Steady Extremity Movement Equal Swallowing Difficulty None Characteristics of Communication Appropriate Characteristics of Speech Clear Facial Symmetry Symmetric Level of Consciousness Alert Aspiration Risk None Eye Opening Response Alderson Spontaneously Best Motor Response Ignacia Obeys simple commands Best Verbal Response Alderson Oriented Alderson Coma Score 15 SEDA Yes Left Pupil [...] L/min 05/14/2024 22:17 EST APTT 56.4 seconds [place] 05/14/2024 22:09 EST Sensory Perception Jose No [...] External catheter Skin Temperature Warm Skin Description Laurens, Normal for ethnicity, Dry Skin Integrity Intact Skin Turgor Non-Elastic Mucous Membrane Color Laurens Mucous Membrane Description Moist Level of Consciousness [...] On and Limits Checked Nail Bed Color Laurens Capillary Refill < 2 seconds Heart Sounds [...] facial grimaces, Symmetric resting/crying All Extremity Description Laurens, Normal for ethnicity Temperature All Extremities Warm [...] Alert Aspiration Risk None Eye Opening Response Alderson Spontaneously Best Motor Response Alderson Obeys simple commands Best Verbal Response Alderson Oriented Ignacia Coma Score 15 SEDA Yes [...] Message FW: Transition of Care sent from [facility] 05/14/2024 15:00 EST External Female external catheter 05/13/2024 Urinary Catheter Output: 750 mL Oral Intake 480 mL 05/14/2024 14:23 EST APTT 47.2 seconds [place] 05/14/2024 14:14 EST Post Rehab Outcome Not Done: See ICU flow (Not Done) Individuals Taught Patient Learning Readiness Willing to learn Barriers to Learning None evident Teaching Method Explanation Preferred Spoken Language Zambian Preferred Written Language Zambian Anticoag. Med Educated Heparin Reason/Purpose of Anticoagulant Rx or prevent blood clots Anticoagulation Medication Dose / Route / Schedule Demonstrates Self Injection N/A Anticoag Med(s) Teaching Evaluation Verbalizes/Nonverbally indicates understanding Cardiac Rehab - Phase I Not Done (Not Done) 05/14/2024 14:12 EST Transition of Care Note Transition of Care sent from [facility] 05/14/2024 14:11 EST Cardiology Progress Note Progress [...] On and Limits Checked Nail Bed Color Laurens Capillary Refill < 2 seconds Heart Sounds [...] Movement Makes facial grimaces All Extremity Description Laurens, Normal for ethnicity Skin Temperature Warm Temperature All Extremities Warm Skin Description Laurens, Normal for ethnicity Skin Integrity Intact Skin Turgor Non-Elastic Mucous Membrane Color Laurens Mucous Membrane Description Moist Sensory Perception Jose [...] Symmetric resting/crying Skin Temperature Warm Skin Description Laurens, Normal for ethnicity Skin Integrity Intact Skin Turgor Non-Elastic Mucous Membrane Color Laurens Mucous Membrane Description Moist Sensory Perception Jose [...] x 4 B (more content not included)... [facility] CenterPigfkdwx06-26-3531 Respiratory therapy Hospital Progress note Respiratory Therapy [...] scheduled medications to Q4hRT PRN Tracey Delgado SHELTERED WORKSHOP EXECUTIVE DIRECTOR - 05/14/2024 21:44 EST Digitally Signed by Tracey Delgado RRT on 05/14/2024 09:44 PM [facility] [id number] History and physical note Date of Service May 13, 2024 History of Present Illness Patient is an 83-year-old with medical history significant for hypertension, and osteoporosis who presents as a transfer from [facility] due to shortness of breath. [...] Assessment/Plan New onset atrial fibrillation with RVR [id number] 5 points Acute hypoxic respiratory failure secondary to new onset CHF Hypertension Osteoporosis Patient presents as a transfer from [facility] for evaluation of dyspnea on [...] DANNY REYES MD on 05/13/2024 10:08 PM [facility] CenterFhkfhkri79-08-1116 History and physical note Date of Service May 13, 2024 History of Present Illness Patient is an 83-year-old with medical history significant for hypertension, and osteoporosis who presents as a transfer from [facility] due to shortness of breath. [...] Assessment/Plan New onset atrial fibrillation with RVR [id number] 5 points Acute hypoxic respiratory failure secondary to new onset CHF Hypertension Osteoporosis Patient presents as a transfer from [facility] for evaluation of dyspnea on [...] DANNY REYES MD on 05/13/2024 10:08 PM [facility] CenterTbrxpnua15-26-5372 Note* Exam Date Time Procedure Performing Provider Status 05/13/24 5:02 PM Electrocardiogram - EKG - CV NAUN CHANDRA MD; Auth (Verified) ECG Final Report ATRIAL FIBRILLATION PROBABLE ANTERIOR INFARCT, AGE INDETERMINATE Electronic Signature: NAUN CHANDRA MD 05/14/2024 09:28:17 [facility] [id number] Evaluation + Plan noteExtracted from: Title:History and Physical Author:AYE REYES MD Date:05/13/24 New onset atrial fibrillatio n with RVR [id number] 5 points Acute hypoxic respiratory failure secondary to new onset CHF Hypertension Osteoporosis Patient presents as a transfer from [facility] for evaluation of dyspnea on [...] Date:07/19/2024 03:30:00 PM Scheduled Provider:EMILIANO LEAL DO Location:[facility] Appointment Type:PC OV Future Scheduled Tests Laboratory* Basic Metabolic Panel 05/17/24 * Calcium Level Ionized 05/17/24 * PTH, Intact 05/17/24 Radiology* MA Mammo Diagnostic Right w/ Brian 11/23/23 * US Breast Right Limited 11/23/23 [facility] 02-02-2025 Note* Exam Date Time Procedure Performing Provider Status 05/13/24 1:25 PM XR Chest 1 View ELLY WANG DO; Auth ( Verified) [id number] ORIGINAL EXAMINATION: ONE XRAY VIEW OF THE [...] 05/13/2024 1:39:17 PM Ordering Provider: TERRIE SIMS [facility]02-02-2025 Note* Exam Date Time Procedure Performing Provider Status 05/13/24 11:49 AM EKG [ED AOH] - CV TERRIE SIMS DO; Auth (Verified) ECG Final Report Atrial fibrillation Ventricular premature complex Repolarization abnormality, prob rate related Electronic Signature: TERRIE SIMS DO 05/13/2024 12:19:29 [facility]12-02-2024 Note ORIGINAL EXAMINATION: BONE DENSITOMETRY 03/12/2024 10:45 [...] Sign Date: 03/12/2024 12:06:57 PM Ordering Provider: [facility]08-14-2024 Evaluation + Plan note Future Scheduled Tests Radiology* MA Mammo Diagnostic Right w/ Brian 11/23/23 * US Breast Right Limited 11/23/23 [facility] 07-13-2022 Note ORIGINAL EXAMINATION: CT OF THE [...] Sign Date: 10/21/2021 7:44:20 PM Ordering Provider: [facility]07-13-2022 Note ORIGINAL EXAMINATION: CT OF THE [...] Sign Date: 10/21/2021 7:44:20 PM Ordering Provider: [facility]2021 Hospital Discharge instructions Patient Education 02/17/2021 [...] the ears or bruising around the eyes [phone] [employer]. [address] [place] [address], [place] [address]. All rights reserved. This information is not [...] in vomit, stools (black or red color) 4145-1433 [employer]. [address] [place] [address], [place] [address]. All rights reserved. This information is not [...] Numbness in the groin or genital area [phone] [employer] [place] [address]. All rights reserved. This information is not intended as a substitute for professional medical care. Always follow yourhealthcare professional's instructions. Follow Up Care 02/17/2021 17:39:03 With:EMILIANO LEAL DO Address: [phone] When:2-4 days [facility] Anesthesiology Consult note* CARLO GLASS DO: PERFORM, SIGN, VERIFY Event Display: Anesthesiology Consultation Authored Date: [id number] Patient: JED SEWELL Age: 83 years Sex: [...] Oral, qDay, #90 cap(s), 3 Refill(s), Pharmacy: [facility], 160, cm, 06/13/24 13:57:00 EST, Height, kg, 06/13/24 13:57:00 EST, Dosing Weight Eliquis 5 mg oral tablet: Dose : 5 mg = 1 tab(s), Oral, BID, # 180 tab(s), 3 Refill(s), Pharmacy: [facility], 160, cm, 06/19/24 6:42:00 EDT, Height, 61.3, kg, 06/19/24 6:42:00 EDT, Dosing Weight Jardiance 10 mg oral tablet: Dose : 10 mg = 1 tab(s), Oral, qAM, # 90 tab(s), 3 Refill(s), Pharmacy: [facility], 160, cm, 06/13/24 13:57:00 EST, [...] qDay, # 90 tab(s), 3 Refill(s), Pharmacy: [facility], 160, cm, 06/13/24 13:57:00 EST, Height, kg, 06/13/24 13:57:00 EST, Dosing Weight bumetanide 1 mg oral tablet: Dose : 1 mg = 1 tab(s), Oral, BID, # 180 tab(s), 3 Refill(s), Pharmacy: [facility], 160, cm, 06/13/24 13:57:00 EST, Height, kg, 06/13/24 13:57:00 EST, Dosing Weight potassium chloride 20 mEq oral tablet, extended release: Dose : 20 mEq = 1 tab(s), Oral, qDay, Takewith food, # 30 tab(s), 3 Refill(s), Pharmacy: [facility], 160, cm, 256:42:00 EDT, Height, kg, 06/19/24 [...] list: Medical Atrial fibrillation / SNOMED CT 52565277 / Confirmed Chronic renal failure, stage 3 (moderate) / SNOMED CT 340151169 / Confirmed HFrEF (heart failure with reduced ejection fraction) / SNOMED CT 3402107261 / Confirmed HTN (hypertension) / SNOMED CT [id number] / Confirmed Serum calcium elevated / SNOMED CT 389431733 / Confirmed Osteoporosis / SNOMED CT 612961487 / Confirmed, Active Problems (10) Atrial fibrillation Chronic renal failure, stage 3 (moderate) HFrEF (heart failure with reduced ejection fraction) HTN (hypertension) GA (myocardial infarction) Mitral regurgitation Osteoporosis Serum calcium elevated Shortness of breath Tobacco use Histories Past Medical History: Active HTN (hypertension) ([id number]) Resolved Sciatica (89108474): Resolved. Microalbuminuria (278068591): Resolved. DDD (degenerative disc disease), lumbar (53775339): Resolved. Neck pain on right side (667790839): Resolved. Hypercalcemia (161864450): Resolved. Proteinuria of undiagnosed cause (072294955): Resolved. Acute bronchitis due to infection (858752797): Resolved. Family History: Respiratory disease Father COPD Mother Procedure history: Colonoscopy and biopsy of colon (7077926033) on 11/02/2019 at 78 Years. Colonoscopy ([id number]) on 04/11/2011 at 70 Years. Ovarian cyst ([id number]). Appendectomy (746853899). Cholecystectomy (43000412). Abdominal hysterectomy (457800610). Social History: Social & Psychosocial Habits Alcohol [...] Pressure Cuff Size Medium Nail Bed Color Laurens Capillary Refill < 2 seconds Dorsalis Pedis [...] Elimination Devices External catheter All Extremity Description Laurens, Normal for ethnicity Temperature All Extremities Warm [...] Checked Cardiovascular Symptoms Edema Nail Bed Color Laurens Capillary Refill < 2 seconds Heart Sounds [...] Temperature All Extremities Warm Mucous Membrane Color Laurens Mucous Membrane Description Moist Sensory Perception Jose [...] Alert Aspiration Risk None Eye Opening Response Alderson Spontaneously Best Motor Response Alderson Obeys simple commands Best Verbal Response Alderson Oriented Ignacia Coma Score 15 SEDA Yes [...] scale Cardiovascular Symptoms Edema Nail Bed Color Laurens Capillary Refill < 2 seconds Heart Sounds [...] Makes facial grimaces, Symmetric resting/crying Skin Description Laurens, Normal for ethnicity, Dry Skin Temperature Warm Skin Integrity Pressure points intact Skin Turgor Non-Elastic Skin Symptoms Bruising All Extremity Description Laurens, Normal for ethnicity Temperature All Extremities Warm Mucous Membrane Color Laurens Mucous Membrane Description Moist Antecubital Right 20 [...] scale Cardiovascular Symptoms Edema Nail Bed Color Laurens Capillary Refill < 2 seconds Heart Sounds [...] Makes facial grimaces, Symmetric resting/crying Skin Description Laurens, Normal for ethnicity, Dry Skin Temperature Warm Skin Integrity Pressure points intact Skin Turgor Non-Elastic Skin Symptoms Bruising All Extremity Description Laurens, Normal for ethnicity Temperature All Extremities Warm Mucous Membrane Color Laurens Mucous Membrane Description Moist Antecubital Right 20 [...] evident Teaching Method Explanation Preferred Spoken Language Zambian Preferred Written Language Zambian Disease Process General Education Signs/Symptoms to report, Signs/Symptoms of complications Equipment Education front desk monitor, Urinary catheter care, Oxygen, Walker Patient Care [...] scale Cardiovascular Symptoms Edema Nail Bed Color Laurens Capillary Refill < 2 seconds Heart Sounds [...] Makes facial grimaces, Symmetric resting/crying Skin Description Laurens, Normal for ethnicity, Dry Skin Temperature Warm Skin Integrity Pressure points intact Skin Turgor Non-Elastic Skin Symptoms Bruising All Extremity Description Laurens, Normal for ethnicity Temperature All Extremities Warm Mucous Membrane Color Laurens Mucous Membrane Description Moist Sensory Perception Jose [...] Alert Aspiration Risk None Eye Opening Response Alderson Spontaneously Best Motor Response Alderson Obeys simple commands Best Verbal Response Ignacia Oriented Alderson Coma Score 15 SEDA Yes Left Pupil [...] Message FW: Transition of Care sent from [facility] 06/28/2024 14:31 EDT Transition of Care Note Transition of Care sent from [facility] 06/28/2024 14:27 EDT Heart Rate Monitored 96 [...] Anyone Threaten You With Harm Never (1) [facility] Anyone Scream Or Curse At You Never (1) [facility] Safety Total Score 4 Basic Disease Process [...] Person #1 We May Share ASHU elizabeth- [phone] Designated Person #1 Relationship Daughter Privacy Restrictions Requested None Height 167 cm Height in inches 65.7 inch(es) Admission Weight 63.9 kg Weight Lbs 140.6 lb [place] Body Weight 58.72 kg Type of Scale [...] None Advanced Directives Yes Advance Directive Type [facility] Power of Lidder for [facility], [place] Declaration (Living Will) Advance Directive Location [...] evident Teaching Method Explanation Preferred Spoken Language Zambian Preferred Written Language Zambian Teaching Evaluation Verbalizes/Nonverbally indicates understanding Safety Brochure [...] Symptoms Edema, Fatigue, Palpitations Nail Bed Color Laurens Capillary Refill < 2 seconds Heart Sounds [...] complications Facial Movement Symmetric resting/crying Skin Description Laurens, Normal for ethnicity, Dry Skin Temperature Warm Skin Integrity Intact, Pressure points intact Skin Turgor Non-Elastic Skin Assessment Completed Admission All Extremity Description Laurens Temperature All Extremities Warm Mucous Membrane Color Laurens Mucous Membrane Description Moist Continuous IV Infusions [...] 06/28/2024 1:23 EDT Status N/A Romero Screen ED/[facility] patient History of Fall in Last 3 [...] Denies Advanced Directives Yes Advance Directive Type [place] Durable Power of Lidder for Health Care, [place] Declaration (Living Will) Advance Directive Location Family [...] CV Ordered (In Progress) 06/28/2024 1:20 EDT [facility] Note General Medical Problem *ED 06/28/2024 1:16 EDT Height 160 cm Admission Weight 138 kg [place] Body Weight 52.38 kg Temperature Oral 36.2 [...] Oxygen Flow Rate 4 L/min Skin Description Laurens, Normal for ethnicity Temperature All Extremities Warm Level of Consciousness Alert Eye Opening Response Ignacia Spontaneously Best Motor Response Ignacia Obeys simple commands Best Verbal Response Alderson Oriented Ignacia Coma Score 15 Strength All [...] No Weight Loss No Preferred Spoken Language Zambian Preferred Written Language Z[place]ian Tracking Group ED AO Tracking Group Tracking Acuity 2 ED Diabetic Patient No Mode of Transfer Ground ambulance [facility] Safety ID band on, Allergy Band on, Call device within reach, Bed in low position, Wheels locked, Safety level maintained Prev Test Positive/Diagnosis w/COVID-19 No Current Quarantine/Isolated any Illness No Any Contact with Sick Animals/Birds No Traveled Anywhere in Last 30 Days No ED Triage Adults ED Triage Adults . Assessment and Plan [place] [employer] (ASA) physical status classification: [...] CARLO GLASS DO on 06/29/2024 08:21 AM [facility] Evaluation + Plan note Future Appointments Appointment Date:04/06/2021 08:00:00 AM Scheduled Provider:EMILIANO LEAL DO Location:[facility] Appointment Type:PC OV Follow Up [facility] Evaluation + Plan note Future Appointments Appointment Date:10/05/2021 10:00:00 AM Scheduled Provider:EMILIANO LEAL DO Location:[facility] Appointment Type:PC OV [facility] Evaluation + Plan note Future Appointments Appointment Date:03/11/2022 09:00:00 AM Scheduled Provider:EMILIANO LEAL DO Location:[facility] Appointment Type:PC OV Future Scheduled Tests Laboratory* Creatinine 10/07/21 [facility] Evaluation + Plan note Future Appointments Appointment Date:09/09/2022 09:00:00 AM Scheduled Provider:EMILIANO LEAL DO Location:[facility] Appointment Type:PC OV Follow Up Future Scheduled Tests Laboratory* Creatinine 10/07/21 [facility] Evaluation + Plan note Future Appointments Appointment Date:06/18/2022 11:00:00 AM Scheduled Provider: Brock:TATIANA Appointment Type:US Renal Appointment Date:09/09/2022 09:00:00 AM Scheduled Provider:EMILIANO LEAL DO Location:[facility] Appointment Type:PC OV Follow Up Diagnostic Tests Pending * Vitamin D, 1,25-Dihydroxy 2/15/23 * CHARLES (serum) 05/26/22 * PTH, Related Peptide 05/26/22 Future Scheduled Tests Laboratory* Creatinine 10/07/21 Radiology* US Renal 06/18/22 [facility] evaluation + Plan note Future Appointments Appointment Date:07/19/2024 03:30:00 PM Scheduled Provider:EMILIANO LEAL DO Location:[facility] Appointment Type:PC OV Future Scheduled Tests Laboratory* Basic Metabolic Panel 05/17/24 * Calcium Level Ionized 05/17/24 * PTH, Intact 05/17/24 Radiology* MA Mammo Diagnostic Right w/ Brian 11/23/23 * US Breast Right Limited 11/23/23 [facility] evaluation + Plan note Future Appointments Appointment Date:07/19/2024 03:30:00 PM Scheduled Provider:EMILIANO LEAL DO Location:[facility] Appointment Type:PC OV Appointment Date:07/23/2024 03:30:00 PM Scheduled Provider:ASIM DIEHL Location:[facility] Appointment Type:CV OV Future Scheduled Tests Laboratory* Basic Metabolic Panel 05/17/24 * Calcium Level Ionized 05/17/24 * PTH, Intact 05/17/24 Radiology* MA Mammo Diagnostic Right w/ Brian 11/23/23 * US Breast Right Limited 11/23/23 [facility] evaluation + Plan note Future Appointments Appointment Date:08/07/2024 03:00:00 PM Scheduled Provider:ASIM DIEHL Location:[facility] Appointment Type:CV OV Appointment Date:08/08/2024 10:45:00 AM Scheduled Provider: Location:Heart Lab Appointment Type:EP Ablation PF-Ensite Appointment Date:11/12/2024 03:00:00 PM Scheduled Provider:ANASTASIYA JEFF Location:[facility] Appointment Type:CV OV Future Scheduled Tests Radiology* MA Mammo Diagnostic Right w/ Brian 11/23/23 * US Breast Right Limited 11/23/23 [facility] Evaluation + Plan note Future Appointments Appointment Date:09/19/2024 03:00:00 PM Scheduled Provider:ASIM DIEHL Location:[facility] Appointment Type:CV OV Appointment Date:11/12/2024 03:00:00 PM Scheduled Provider:ANASTASIYA JEFF Location:[facility] Appointment Type:CV OV Future Scheduled Tests Radiology* MA Mammo Diagnostic Right w/ Brian 11/23/23 * US Breast Right Limited 11/23/23 [facility] Evaluation + Plan note Future Appointments Appointment Date:09/19/2024 03:00:00 PM Scheduled Provider:ASIM DIEHL Location:[facility] Appointment Type:CV OV Appointment Date:10/19/2024 02:15:00 PM Scheduled Provider:DONATO NAVARRETE DO Location:[facility] Appointment Type:PC OV Appointment Date:12/20/2024 03:00:00 PM Scheduled Provider:ANASTASIYA JEFF Location:[facility] Appointment Type:CV OV Future Scheduled Tests Laboratory* Basic Metabolic Panel 08/22/24 * Magnesium Level 09/12/24 Radiology* MA Mammo Diagnostic Right w/ Brian 11/23/23 * US Breast Right Limited 11/23/23 [facility] Evaluation + Plan note Future Appointments Appointment Date:01/08/2025 01:00:00 PM Scheduled Provider: Location:RAD Appointment Type:Echo - Echocardiogram Adult Appointment Date:01/16/2025 03:30:00 PM Scheduled Provider:DONATO NAVARRETE DO Location:[facility] Appointment Type:PC OV Appointment Date:01/31/2025 10:30:00 AM Scheduled Provider:ASIM DIEHL Location:[facility] Appointment Type:CV OV Appointment Date:03/21/2025 03:00:00 PM Scheduled Provider:ASIM DIEHL Location:[facility] Appointment Type:CV OV Appointment Date:12/19/2025 03:30:00 PM Scheduled Provider:MEREDITH BAILON Location:[facility] Appointment Type:CV OV Future Scheduled Tests Laboratory* Basic Metabolic Panel 11/05/24 * Basic Metabolic Panel 08/22/24 * Magnesium Level 11/05/24 [facility] evaluation + Plan note Future Appointments Appointment Date:01/16/2025 03:30:00 PM Scheduled Provider:DONATO NAVARRETE DO Location:[facility] Appointment Type:PC OV Appointment Date:01/31/2025 10:30:00 AM Scheduled Provider:ASIM DIEHL Location:[facility] Appointment Type:CV OV Appointment Date:03/21/2025 03:00:00 PM Scheduled Provider:ASIM DIEHL Location:[facility] Appointment Type:CV OV Appointment Date:12/19/2025 03:30:00 PM Scheduled Provider:MEREDITH BAILON Location:[facility] Appointment Type:CV OV Future Scheduled Tests Laboratory* Basic Metabolic Panel 11/05/24 * Basic Metabolic Panel 08/22/24 * Magnesium Level 11/05/24 [facility] Evaluation + Plan note Future Appointments Appointment Date:01/16/2025 03:30:00 PM Scheduled Provider:DONATO NAVARRETE DO Location:[facility] Appointment Type:PC OV Appointment Date:01/31/2025 10:30:00 AM Scheduled Provider:ASIM DIEHL Location:[facility] Appointment Type:CV OV Appointment Date:03/21/2025 03:00:00 PM Scheduled Provider:ASIM DIEHL Location:[facility] Appointment Type:CV OV Appointment Date:12/19/2025 03:30:00 PM Scheduled Provider:MEREDITH BAILON Location:[facility] Appointment Type:CV OV Future Scheduled Tests Laboratory* Basic Metabolic Panel 08/22/24 [facility] evaluation + Plan note Future Appointments Appointment Date:02/19/2025 08:30:00 AM Scheduled Provider: Location:Heart Lab Appointment Type:CV Procedure - Heart Lab/Hybrid OR Appointment Date:03/21/2025 03:00:00 PM Scheduled Provider:ASIM DIEHL Location:[facility] Appointment Type:CV OV Appointment Date:12/19/2025 03:30:00 PM Scheduled Provider:MEREDITH BAILON Location:[facility] Appointment Type:CV OV Future Scheduled Tests Laboratory* Basic Metabolic Panel 08/22/24 * Basic Metabolic Panel 02/06/25 * Complete Blood Count 02/06/25 * Prothrombin Time - Panel 02/06/25 [facility] Evaluation + Plan note Future Appointments Appointment Date:02/19/2025 08:00:00 AM Scheduled Provider: Location:Heart Lab Appointment Type:CV Procedure - Heart Lab/Hybrid OR Appointment Date:03/21/2025 03:00:00 PM Scheduled Provider:ASIM DIEHL Location:[facility] Appointment Type:CV OV Appointment Date:12/19/2025 03:30:00 PM Scheduled Provider:MEREDITH BAILON Location:[facility] Appointment Type:CV OV Future Scheduled Tests Laboratory* Basic Metabolic Panel 08/22/24 [facility] Evaluation + Plan note Future Appointments Appointment Date:03/21/2025 03:00:00 PM Scheduled Provider:ASIM DIEHL Location:[facility] Appointment Type:CV OV Appointment Date:12/19/2025 03:30:00 PM Scheduled Provider:MEREDITH BAILON Location:[facility] Appointment Type:CV OV Future Scheduled Tests Laboratory* Basic Metabolic Panel 08/22/24 [facility] Hospital course Narrative No data available for this section [facility] Hospital Discharge instructions No data available for this section [facility] Progress note No data available for this section [facility] Summary Purpose Family History No Family History [...] Clerk Daniella PT Position: P3 Scheduling - Trouble Shooting Mechanic Advanced Member Role: Other Name: EMILIANO LEAL DO Position: P4 Physician - Primary Care Med Service: Active Provider Member Role: Primary Care Physician Address: Address: [address] [place] [address] Care Team Related Persons Name: NATALIE ELIZABETH Name: SANDRA SEWELL Address: Home [address] [place] [phone] Care Team Personnel Name: Jere Gupta Clerk Daniella PT Position: P3 Scheduling - Trouble Shooting Mechanic Advanced Member Role: Other Name: EMILIANO LEAL DO Position: P4 Physician - Primary Care Member Role: Primary Care Physician Address: Address: [address] [place] [address] Care Team Related Persons Name: NATALIE ELIZABETH Name: SANDRA SEWELL Address: Home [address] [place], [place] [id number] [place] Care Team Personnel Name: Jere Gupta Clerk Daniella PT Position: P3 Scheduling - Trouble Shooting Mechanic Advanced Member Role: Other Name: EMILIANO LEAL DO Position: P4 Physician - Primary Care Member Role: Primary Care Physician Address: Address: [address] [place] [address] Care Team Related Persons Name: NATALIE ELIZABETH Name: SANDRA SEWELL Address: Home [address] [place], [place] [phone] [place] Care Team Personnel Name: Jere Gupta Clerk Daniella PT Position: P3 Scheduling - Trouble Shooting Mechanic Advanced Member Role: Other Name: EMILIANO LEAL DO Position: P4 Physician - Primary Care Member Role: Primary Care Physician Address: Address: [facility] [address] Care Team Related Persons Name: NATALIE ELIZABETH Patient Care team informatio n (unrecognized section and content) Care Team Personnel Name: Candy, Top And Seat Cover Fitter Daniella PT Position: P3 Scheduling - Trouble Shooting Mechanic Advanced Member Role: Other Name: EMILIANO LEAL DO Position: P4 Physician - Primary Care Member Role: Primary Care Physician Address: Address: [address] [place] [address] Care Team Related Persons Name: NATALIE ELIZABETH Care Team Personnel Name: Candy, Top And Seat Cover Fitter Daniella PT Position: P3 Scheduling - Trouble Shooting Mechanic Advanced Member Role: Other Name: EMILIANO LEAL DO Position: P4 Physician - Primary Care Member Role: Primary Care Physician Address: Address: [address] [place] [address] Care Team Related Persons Name: NATALIE ELIZABETH Care Team Personnel Name: Candy, Top And Seat Cover Fitter Daniella PT Position: P3 Scheduling - Trouble Shooting Mechanic Advanced Member Role: Other Name: EMILIANO LEAL DO Position: P4 Physician - Primary Care Member Role: Primary Care Physician Address: Address: [address] [place] [address] Care Team Related Persons Name: NATALIE ELIZABETH Care Team Personnel Name: Candy, Top And Seat Cover Fitter Daniella PT Position: P3 Scheduling - Trouble Shooting Mechanic Advanced Member Role: Other Name: EMILIANO LEAL DO Position: P4 Physician - Primary Care Member Role: Primary Care Physician Address: [address] [place] [address] Telecom: Care Team Related Persons Name: NATALIE ELIZABETH Care Team Personnel Name: Candy Top And Seat Cover Fitter Daniella PT Position: P3 Scheduling - Trouble Shooting Mechanic Advanced Member Role: Other Name: EMILIANO LEAL DO Position: P4 Physician - Primary Care Member Role: Primary Care Physician Address: [address] [place] [address] Telecom: Care Team Related Persons Name: NATALIE ELIZABETH Care Team Personnel Name: Candy Top And Seat Cover Fitter Daniella PT Position: P3 Scheduling - Trouble Shooting Mechanic Advanced Member Role: Other Name: EMILIANO LEAL DO Position: P4 Physician - Primary Care Member Role: Primary Care Physician Address: [address] [id number] Telecom: Care Team Related Persons Name: NATALIE ELIZABETH Care Team Personnel Name: Candy Top And Seat Cover Fitter Daniella PT Position: P3 Scheduling - Trouble Shooting Mechanic Advanced Member Role: Other Name: EMILIANO LEAL DO Position: P4 Physician - Primary Care Member Role: Primary Care Physician Address: [address] Telecom: Care Team Related Persons Name: NATALIE ELIZABETH Care Team Personnel Name: Candy, Top And Seat Cover Fitter Daniella PT Position: P3 Scheduling - Trouble Shooting Mechanic Advanced Member Role: Other Name: EMILIANO LEAL DO Position: P4 Physician - Primary Care Member Role: Primary Care Physician Address: [address] Telecom: Care Team Related Persons Name: NATALIE ELIZABETH Care Team Personnel Name: Candy Top And Seat Cover Fitter Daniella PT Position: P3 Scheduling - Trouble Shooting Mechanic Advanced Member Role: Other Name: EMILIANO LEAL DO Position: P4 Physician - Primary Care Member Role: Primary Care Physician Address: [address] Telecom: Care Team Related Persons Name: NATALIE ELIZABETH Care Team Personnel Name: Candy Top And Seat Cover Fitter Daniella PT Position: P3 Scheduling - Trouble Shooting Mechanic Advanced Member Role: Other Name: EMILIANO LEAL DO Position: P4 Physician - Primary Care Member Role: Primary Care Physician Address: [address] [id number] Telecom: Care Team Related Persons Name: MAENATALIE ARRIAZA Care Team Personnel Name: Candy, Top And Seat Cover Fitter Daniella PT Position: P3 Scheduling - Trouble Shooting Mechanic Advanced Member Role: Other Name: EMILIANO LEAL DO Position: P4 Physician - Primary Care Member Role: Primary Care Physician Address: [address] [place] [address] Telecom: Care Team Related Persons Name: MAREK NATALIE Care Team Personnel Name: Candy, Top And Seat Cover Fitter Daniella PT Position: P3 Scheduling - Trouble Shooting Mechanic Advanced Member Role: Other Name: EMILIANO LEAL DO Position: P4 Physician - Primary Care Member Role: Primary Care Physician Address: [address] [place] [address] Telecom: Care Team Related Persons Name: MAREK NATALIE Name: NATALIE ELIZABETH Name: NATALIE ELIZABETH Care Team Personnel Name: Candy, Top And Seat Cover Fitter Daniella PT Position: P3 Scheduling - Trouble Shooting Mechanic Advanced Member Role: Other Name: EMILIANO LEAL DO Position: P4 Physician - Primary Care Member Role: Primary Care Physician Address: [address] [place] [address] Telecom: Care Team Related Persons Name: MAENATALIE ARRIAZA Name: ELEN ELIZABETHA Name: ELEN ELIZABETHA Care Team Personnel Name: Candy, Top And Seat Cover Fitter Daniella PT Position: P3 Scheduling - Trouble Shooting Mechanic Advanced Member Role: Other Name: EMILIANO LEAL DO Position: P4 Physician - Primary Care Member Role: Primary Care Physician Address: [address] [place] [address] Telecom: Care Team Related Persons Name: ELEN ELIZABETHA Name: ELEN ELIZABETHA Name: MAREK NATALIE Care Team Personnel Name: Candy, Top And Seat Cover Fitter Daniella PT Position: P3 Scheduling - Trouble Shooting Mechanic Advanced Member Role: Other Name: DONATO NAVARRETE DO Position: P4 Physician - Primary Care Member Role: Primary Care Physician Address: [address] Telecom: Care Team Related Persons Name: NATALIE ELIZABETH Name: NATALIE ELIZABETH Name: NATALIE ELIZABETH Care Team Personnel Name: Candy, Top And Seat Cover Fitter Daniella PT Position: P3 Scheduling - Trouble Shooting Mechanic Advanced Member Role: Other Name: DONATO NAVARRETE DO Position: P4 Physician - Primary Care Member Role: Primary Care Physician Address: [address] [place] [address] Telecom: Care Team Related Persons Name: NATALIE ELIZABETH Name: NATALIE ELIZABETH Name: MAECOCONATALIE MICHELLE Care Team Personnel Name: Candy, Top And Seat Cover Fitter Daniella PT Position: P3 Scheduling - Trouble Shooting Mechanic Advanced Member Role: Other Name: DONATO NAVARRETE DO Position: P4 Physician - Primary Care Member Role: Primary Care Physician Address: [address] [place] [address] Telecom: Care Team Related Persons Name: NATALIE ELIZABETH Name: NATALIE ELIZABETH Name: NATALIE ELIZABETH Care Team Personnel Name: Candy, Top And Seat Cover Fitter Daniella PT Position: P3 Scheduling - Trouble Shooting Mechanic Advanced Member Role: Other Name: DONATO NAVARRETE DO Position: P4 Physician - Primary Care Member Role: Primary Care Physician Address: [address] [place] [address] Telecom: Care Team Related Persons Name: NATALIE ELIZABETH Name: NATALIE ELIZAEBTH Name: NATALIE ELIZABETH Care Team Personnel Name: Candy, Top And Seat Cover Fitter Daniella PT Position: P3 Scheduling - Trouble Shooting Mechanic Advanced Member Role: Other Name: DONATO NAVARRETE DO Position: P4 Physician - Primary Care Member Role: Primary Care Physician Address: [address] Telecom: Care Team Related Persons Name: ABELNATALIE MICHELLE Name: ELEN ELIZABETHA Name: NATALIE ELIZABETH Care Team Personnel Name: Candy Top And Seat Cover Fitter Daniella PT Position: P3 Scheduling - Trouble Shooting Mechanic Advanced Member Role: Other Name: DONATO NAVARRETE DO Position: P4 Physician - Primary Care Member Role: Primary Care Physician Address: [address] [place] [address] Telecom: Care Team Related Persons Name: NATALIE ELIZABETH Name: NATALIE ELIZABETH Name: NATALIE ELIZABETH Care Team Personnel Name: Jere Gupta Clerk Daniella PT Position: P3 Scheduling - Trouble Shooting Mechanic Advanced Member Role: Other Name: DONATO NAVARRETE DO Position: P4 Physician - Primary Care Member Role: Primary Care Physician Address: [address] [place] [address] Telecom: Care Team Related Persons Name: NATALIE ELIZABETH Name: NATALIE ELIZABETH Name: NATALIE ELIZABETH INFORMATION SOURCE (unrecogn ized section and content) DATE CREATED AUTHOR 11/15/2023 [facility] ([place]) DATE CREATED AUTHOR AUTHOR'S ORGANIZ ATION 02/17/2025 [facility] DATE CREATED AUTHOR AUTHOR'S ORGANIZ ATION 02/20/2025 [facility] FOR RECORDS PERTAINING TO PATIENTS WHO [...] BE BASED ON THE PRIMARY CLINICAL RECORDS. [employer] [facility]. provides no warranty or guarantee of the accuracy or completeness of information in this document.
--- NOTE | 2025-03-25 01:16 | PCM.HP.STD ---
HPI - General General Date of Admission: 03/25/25 Date of Service: 03/25/25 Chief Complaint: Fall, L hip fx, transfer from OSH HPI Narrative The patient is an 84 y/o F w/ PMHx: Tobacco use, PAF on Eliquis, HFpEF, HTN, HLD, Former Tobacco use, COPD, CKD stage III (baseline GFR 44-60) who presents to the [facility] as direct admission from [facility] as an inpatient originally admitted to their facility following ED evaluation initially on 03/22/2025 with unfortunate mechanical fall in her home while attempting to get up with no loss of consciousness or head trauma falling on her left hip with significant debility and pain prompting ED evaluation by EMS at that time. There is some possibility also potentially earlier in the course the patient may have fallen on the stairs as well but uncertain. Patient was noted to be 10/10, severe upon initial outside facility ED arrival per transfer report. Upon arrival at [facility] she notes some mild nausea and rates her discomfort as sharp stabbing 2-3 out of 10 in severity but it had been worse when she was initially moved for transport at outside facility. Workup in the outside facility includes: VS: T 36.3, HR 74, RR 16, BP 116/54, 96% on 2L NC (when attempting to de-escalate noted to be low 90s on RA) EKG: SR rate 70s with QTC 465 Plain film L hip and pelvis suboptimal thus CT L hip obtained with bascervical fracture L proximal femur, mild mild foreshorting and mild angulation. CBC: WBC 8.6, Hgb 12.3, MCV 85.9, Plts 216 without shift (normal Hgb 12 range)at CMP: Glucose 87, Na 140, K 4.1, Chl 105, CO2 25, BUN/Cr 29/1.23 (GFR 44), hepatic profile with AST/ALT 22/17, albumin 3.3. Troponin: 57->76 CPK: 119 on 03/22 Plain film of the L knee without acute findings Patient was evaluated and decision for OR on 03/25/25 after [address] Valencia orthopedic surgeon consulted; however, per discussion with hospitalist staff there is no availability after 5 PM for operative intervention therefore orthopedic surgeon requested patient be transferred to [facility] per their preference for operative intervention to be arranged in an earlier time/date. [facility] Medical History CKD stage 3a, GFR 45-59 ml/min Former tobacco use COPD (chronic obstructive pulmonary disease) PAF (paroxysmal atrial fibrillation) HLD (hyperlipidemia) HTN (hypertension) (HFpEF) heart failure with preserved ejection fraction Home Medications ?Medication ?Instructions ?Recorded ?Last Taken ?Type apixaban 5 mg tablet (Eliquis) 5 mg PO BID 03/24/25 Unknown History atorvastatin 40 mg tablet (Lipitor) 40 mg PO QHS 03/24/25 Unknown History budesonide 0.25 mg/2 mL suspension 0.25 mg inhalation BID 03/24/25 Unknown History for nebulization (Pulmicort) bumetanide 1 mg tablet 1 mg PO BID 03/24/25 Unknown History empagliflozin 10 mg tablet 10 mg PO DAILY 03/24/25 Unknown History (Jardiance) potassium chloride 20 mEq 20 meq PO BID 03/24/25 Unknown History tablet,extended release(part/cryst) (Klor-Con M) valsartan 320 mg tablet (Diovan) 320 mg PO DAILY 03/24/25 Unknown History Allergy/AdvReac Type Severity Reaction Status Date / Time dofetilide (From Tikosyn) Allergy Intermediate Arrhythmia Verified 03/24/25 22:10 alendronate sodium AdvReac Mild Myalgia Verified 03/24/25 22:10 cyproheptadine (From AdvReac Mild Paresthesia Verified 03/24/25 22:10 Periactin) s Family History Mother COPD (chronic obstructive pulmonary disease) Father Heart disease Surgical History S/P cholecystectomy S/P hysterectomy S/P appendectomy History of dilation of urethra S/P cataract extraction History of colonoscopy History of cardioversion Social History (Updated 03/25/25 @ 01:[address] Usha Medley MD) household members: none Smoking Status: Former smoker how long ago did patient quit smoking: Smoked 1 ppd in her 20s until 05/2024. alcohol intake: never substance use type: does not use ROS ROS Narrative Admission Review of Systems: CONSTITUTIONAL: No weight loss, fever, chills, + weakness or fatigue. HEENT: Eyes: No visual loss, blurred vision, double vision or yellow sclerae. Ears, Nose, Throat: No hearing loss, sneezing, congestion, runny nose or sore throat. SKIN: No rash or itching, lesions, wounds except + occasional stage ecchymoses, abrasion. CARDIOVASCULAR: No chest pain, chest pressure or chest discomfort, palpitations, edema, orthopnea, syncopal events. RESPIRATORY: No shortness of breath, cough or sputum, wheezing, hemoptysis. GASTROINTESTINAL: + anorexia, nausea. No vomiting or diarrhea, abdominal pain, melena, BRBPR. GENITOURINARY: No dysuria, frequency, urgency or retention. NEUROLOGICAL: No headache, dizziness, syncope, paralysis, ataxia, numbness or tingling in the extremities, focal weakness, change in bowel or bladder control, seizure. MUSCULOSKELETAL: + muscle, back pain, joint pain or stiffness. HEMATOLOGIC: No anemia, + easy bleeding/bruising. LYMPHATICS: No enlarged nodes. No history of splenectomy. PSYCHIATRIC: No history of depression or anxiety. ENDOCRINOLOGIC: No reports of sweating, cold or heat intolerance. No polyuria or polydipsia. ALLERGIES: No history of asthma, hives, eczema or rhinitis. Physical Exam Narrative Physical Examination: General: Awake, alert, oriented x 3 and cooperative, laying in the MS bed, notes some left sharp hip pain but rating it 2-3 out of 10 in severity. Skin: Normal color, normal turgor, no icterus, no cyanosis except occasional stage ecchymoses, abrasion. HEENT: AT/NC, EOMI, PERRLA, MMM, no carotid bruits or JVD noted. Lungs: Mildly diminished, greater bases, no evidence of any distress, no rales, ronchi or wheezing. Heart: Regular rate and rhythm; no gallop, rub audible. Abdomen: Soft, obese, NTTP, ND, mildly hyperactive BS, no appreciated HSM. Extremities: No cyanosis, no clubbing, no significant distal pitting edema, peripheral pulses intact, status post fall with left hip fracture. Neurological: Patient awake, alert, oriented as noted, cognitive function intact; pupils equally reactive to light and accommodation, cranial nerves grossly normal, moving all 4 extremities except limited given fall with left hip fracture, moving toes, sensation intact, strength however accordingly severely globally decreased. Psychiatric: Affect appears fatigued otherwise normal, no acute evidence of depressive or anxiety feelings. Assessment & Plan Assessment/Plan (1) Closed left hip fracture: PLAN: Plan The patient is an 84 y/o F w/ PMHx: Tobacco use, PAF on Eliquis, HFpEF, HTN, HLD, Former Tobacco use, COPD, CKD stage III (baseline GFR 44-60) who presents to the [facility] as direct admission from [facility] as an inpatient originally admitted to their facility following ED evaluation initially on 03/22/2025 with unfortunate mechanical fall in her home while attempting to get up with no loss of consciousness or head trauma falling on her left hip with significant debility and pain prompting ED evaluation by EMS with noted left hip fracture with patient/surgeon request for transfer to [facility] on 03/24/2025 for planned operative intervention 03/25/2025. #1. General debility, L hip pain s/p mechanical fall w/ L hip fracture: CT L hip at OSH with noted bascervical fracture L proximal femur, mild mild foreshorting and mild angulation. Orthopedic surgery requested transfer to [facility] from OSH thus will continue consultation and they are aware. Will admit to MS, maintain NPO after midnight, rabago placement, monitor I/Os, frequent positioning, fall precautions, PRN Pain, anti-emetic regimen. PT/OT following operative intervention. CM consulted for discharge planning. Per NSQIP patient is at least moderate to elevated pericardiac risk for operative intervention however patient performs all her own ADLs, stable disease history with no recent acute exacerbations, recent echocardiogram noted 12/2024 with no acute concerning findings, EKG with sinus rhythm with no acute evidence of ischemia. At outside facility patient been cleared for transition to the OR. At this time given already evaluated evaluated at outside facility and planned OR, recent ECHO and no concerning findings upon currently evaluation agree with progression to OR unless concerns arise. #2. PAF: Eliquis held since 03/22/2025, per current record does not appear to be on rate or rhythm agent but clarified to be certain, status post previous cardioversion. #3. HFpEF: Most recent echo noted in the [facility] system 12/2024 with LVEF 55-60%, wall motion normal moderate MV regurg, bilateral atrial mildly dilated, RV systolic pressure 29 mm Hg, holding Eliquis with last dose as noted 03/22/2025, will continue statin, valsartan, bumetanide, not on beta-vadim therapy but clarified to be certain. Will judiciously hydrate only if necessary. #4. Hypertension: Continue home regimen including valsartan, bumetanide, PRN hydralazine. #5. Hyperlipidemia: Continue home statin therapy. #6. Chronic Kidney Disease Stage IIIa per outside facility records: Will obtain admission BUN/Cr, baseline renal function per record transfer GFR 44, repeat BMP in AM. #7. Chronic COPD: At outside facility using supplemental oxygen however per report patient on room air is low 90s, will only use oxygen if clinically appropriate with wean as tolerated to room air, will hold home inhalers in the interim will transition to ATC budesonide therapy given PAF history, PRN albuterol, HOB, IS parameters. #8. Former tobacco use: Encourage continued tobacco cessation. #9. DVT prophylaxis: SCDs. #10. CODE status: Patient KEE is her daughter and living will is currently in place. Discussed CODE status at length including difference between FULL code, DNR-CCA and DNR-CC status. Following discussions about the differences in these status, requested Full Code status. Advanced Care Planning Face to Face Time: 16 minutes. Charges/Coding Visit Charges Inpatient E&M: 85660 Init Hosp L3 Procedures Hospitalists Procedures: 10006 Advncd Care Plan 30 Min
--- NOTE | 2025-03-25 05:00 | EKG12_ITS ---
Test Reason : AM EKG Blood Pressure : */* mmHG Vent. Rate : 71 BPM Atrial Rate : 71 BPM P-R Int : 156 ms QRS Dur : 88 ms QT Int : 414 ms P-R-T Axes : 67 2 49 degrees QTcB Int : 449 ms Normal sinus rhythm Nonspecific ST and T wave abnormality Abnormal ECG Confirmed by BROOKS PANCHAL, MCKENNA ([id number]), assistant film editor YOUSUF DIEHL ([id number]) on 03/26/2025 1:22:40 PM Referred By: IISDRO Confirmed By: MCKENNA GUY MD
[2025-03-25 06:00] LABS: Hematocrit 35.0 % (37-47); Hemoglobin 11.6 g/dL (12.0-15.0); Immature Granulocytes Count 0.040 X10^3/uL (0.0-0.0); Mean Corp Hgb Conc 33.1 g/dL (32-36); Mean Corpuscular Volume 86.4 fL (81-99); Mean Platelet Vol. 9.9 fl (6.2-12.0); NRBC Flagged by Analyzer 0 % (0-5); Platelet Count 243 K/mm3 (150-450); RBC Distribution Width CV 13.2 % (11.6-14.6); RBC Distribution Width SD 41.3 fl (35.1-43.9); Red Blood Count 4.05 M/mm3 (4.2-5.4); White Blood Count 9.9 K/mm3 (4.4-11.0)
[2025-03-25 06:04] LABS: Prothrombin Time (Protime)PT. 15.0 SECONDS (11.7-14.9)
[2025-03-25 06:05] LABS: Partial Thromboplast Time 34.3 Seconds (24.1-36.2)
[2025-03-25 06:23] LABS: AST(SGOT) 24 U/L (<=31); Alanine Aminotransfer ALT/SGPT 17 U/L (<=34); Albumin, Serum 3.6 g/dL (3.4-4.8); Alkaline Phosphatase 82 U/L (35-104); Anion Gap 11 (5-15); BUN 30 mg/dL (4-19); BUN/Creat Ratio 23.0 RATIO (10-20); Calcium,Total 8.0 mg/dL (7.6-11.0); Carbon Dioxide 22.7 mmol/L (21.0-32.0); Chloride 102 mmol/L (98-108); Estimated Creatinine Clearance 32.81 ml/min (50-250); Globulin 2.4 g/dL (2.2-4.2); Glucose 103 mg/dL (70-99); Magnesium 2.5 mg/dL (1.5-2.2); Potassium 4.5 mmol/L (3.3-5.1)
[2025-03-25] MEDS: Budesonide Respules 0.5 MG/2 ML AMPUL.NEB. INHALATION (07:25)
--- NOTE | 2025-03-25 07:38 | PCM.PN.HOSP ---
Reason for Visit Chief Complaint: Fall, L hip fx, transfer from OSH Subjective Subjective Patient is an 84-year-old lady who was sent from an outside hospital?[facility] after presenting with a fall. Imaging studies demonstrated bascervical fracture L proximal femur, mild mild foreshorting and mild angulation Objective Data Objective Data Vital Signs: Vital Signs Temp Pulse Resp BP Pulse Ox O2 Del Method O2 Flow Rate 98.3 F 74 18 139/68 H 95 Nasal Cannula 2 03/25/25 01:00 03/25/25 01:00 03/25/25 01:00 03/25/25 01:00 03/25/25 02:00 03/25/25 02:00 03/25/25 02:00 Oxygen Flow Rate (L/min) 2 Oxygen Delivery Method Nasal Cannula Weight: 78.2 kg Body Mass Index (BMI) 31.7 Intake & Output: Intake and Output for Last 24 Hours 03/23/25 03/24/25 03/25/25 23:59 23:59 23:59 Output Total 300 / 300 Balance -300 / -300 Lab / Micro Data 03/25/25 05:35 03/25/25 05:35 Labs: Laboratory Results - last 24 hr 03/25/25 05:35: WBC 9.9, RBC 4.05 L, Hgb 11.6 L, Hct 35.0 L, MCV 86.4, MCH 28.6, MCHC 33.1, RDW Std Deviation 41.3, RDW Coeff of Trish 13.2, Plt Count 243, MPV 9.9, Immature Gran % (Auto) 0.400, Neut % (Auto) 77.6 H, Lymph % (Auto) 8.3 L, Crook % (Auto) 10.9 H, Eos % (Auto) 2.5, Baso % (Auto) 0.3, Absolute Neuts (auto) 7.7, Absolute Lymphs (auto) 0.82 L, Nucleated RBC % 0, PT 15.0 H, INR 1.2, APTT 34.3, Sodium 135, Potassium 4.5, Chloride 102, Carbon Dioxide 22.7, Anion Gap 11, BUN 30 H, Creatinine 1.28 H, Estim Creat Clear Calc 32.81 L, Est GFR (MDRD) Non-Af 42 L, BUN/Creatinine Ratio 23.0 H, Glucose 103 H, Calcium 8.0, Magnesium 2.5 H, Total Bilirubin 0.32, AST 24, ALT 17, Alkaline Phosphatase 82, Total Protein 5.9, Albumin 3.6, Globulin 2.4, Albumin/Globulin Ratio 1.5, Blood Type B POSITIVE, Antibody Screen NEGATIVE Physical Exam Narrative GENERAL: cooperative HEENT: Atraumatic; normocephalic EYES; Anicteric, Normal Conjunctiva NECK; supple, normal thyroid, RESPIRATORY: Diminished to auscultation CARDIOVASCULAR: Regular S1 S2, GI: soft, normoactive bowel sounds, : No Renal angle tenderness; EXTREMITIES: No edema, no clubbing, MUSCULOSKELETAL: Tender to palpation in the left hip NEURO: Awake; no lateralizing signs. SKIN: No Rash PSYCH; Flat affect Assessment & Plan Assessment/Plan (1) Closed left hip fracture: PLAN: Plan Patient is an 84-year-old lady who was sent from an outside hospital?[facility] after presenting with a fall. Imaging studies demonstrated bascervical fracture L proximal femur, mild mild foreshorting and mild angulation Fall with left hip fracture Imaging studies on admission t demonstrated L hip pain s/p mechanical fall w/ L hip fracture: CT L hip at OSH with noted bascervical fracture L proximal femur, mild mild foreshorting and mild angulation. Orthopedic surgery was consulted prior to patient being transferred. Admitted to regular nursing floor managed with pain medication, immobilization n.p.o. after midnight. Decision regarding patient surgical intervention deferred to Ortho. Patient perioperative perioperative morbidity/mortality risk as documented by admitting H&P 2. Paroxysmal atrial fibrillation ? Held since 03/22/2025. Plan is to resume following surgery 3. Chronic congestive heart failure with preserved ejection fraction ? Echo from 12/29/2024 demonstrated EF of 55 to 60% with moderate mitral valve regurgitation. Patient currently remains compensated 4. Hypertension ? Blood pressure controlled, home medications continued with dose adjustment as needed 5. Dyslipidemia ?Patient is on statin therapy, continued at home dose 6. Chronic kidney disease stage IIIa ? Kidney function at baseline 7. COPD ? Bronchodilator treatment as needed 8. Anemia ? Secondary to chronic disorder monitoring H&H and transfuse if patient becomes symptomatic or hemoglobin falls below 7 9. DVT prophylaxis ? Bilateral SCDs for now Time spent in the patient's overall evaluation,decision-making process, review of diagnostic data, adjustment of management, discussion with other providers, nursing nursing and ancillary staff involved in patient's care documentation, 40 Minutes Charges/Coding Visit Charges Inpatient E&M: 94245 Subs Hosp L2
--- NOTE | 2025-03-25 08:20 | HIP_PTH ---
PATIENT: JED SEWELL LOC: MS3 U#:[id number] AGE/SX: 84/F ROOM: ME314 RE03/25/[address]: Dr. Moises Branch MD : 1940 BED: 1 DIS: 03/27/2025 SPEC #: [id number] RECD: 03/26/25 07:53 STATUS: FRITZ REQ #: [id number] RUDDY: 03/25/25 08:[address]: Deshaun Valencia DEPT: SURGICAL PATHOLOGY RECD BY: Jaylon Pena ENTERED: 03/26/25 09:55 SP TYPE: TOTAL HIP OTHR DR: MD Dr. Moises Bean MD Dr. Scott Wilkins, MD Tissues: A - Hip, NOS Procedures: Decalcification bone/plaque Surgery Specimen Level III Comments: @ Ordering doctor for DEC edited from to @ by RAD at 03/26/25 0955 @ Ordering doctor for SUIII edited from to @ by RAD at 03/26/25 0955 @ Submitting doctor edited from to @ by RAD at 03/26/25 0955 HEADER OPERATION: Hemiarthroplasty, hip PRE-OP DIAGNOSIS: Closed left hip fracture TISSUE SUBMITTED: A- Left hip bone and tissue MICROSCOPIC DIAGNOSIS A. Bone, hip, left, hemiarthroplasty: MICROSCOPIC DESCRIPTION Slides are reviewed. GROSS DESCRIPTION A. Received in formalin labeled with the patient's name and date of . Designated as left hip bone and tissue is a 4.4 x 4.4 x 3.5 cm slightly irregular ovoid femoral head with a portion of detached femoral neck, 1.6 cm in length by 4.1 cm in diameter. The resection margin of the femoral head is shaggy and congested. The articular cartilage is ramirez and granular with focal, green discoloration. Osteophyte formations and eburnation are not grossly identified. Sectioning reveals pink-yellow to dark red, trabeculated bone throughout. [employer] sections are submitted in 2 cassettes, following decalcification as follows: A1: Femoral head with green articular cartilage discolorationA2: Femoral neck SC 03/26/2025PT:[id number]
--- NOTE | 2025-03-25 09:42 | NURSING ---
Daughter informed of P/U time via phone call
--- NOTE | 2025-03-25 13:00 | CASEMGMT ---
Addendum entered by Deena Davis 03/25/25 16:04: 1535- CE PATTERSON into pt room per dtr request. Discussed dc planning with dtr as prior with pt. Pt and dtr state they would prefer [facility] if she needs skilled care. They deny a need for a list of other options. They are aware that this RN CM will touch base tomorrow after therapy evals. Original Note: CE PATTERSON Assessment: Face to Face with pt for initial transition planning/care coordination assessment. CE PATTERSON introduced self and role at [facility], pt voices understanding and consents to assessment. Pt is A&O x4 and answers all questions appropriately at this time. Pt lying in bed in no distress. Care providers, pharmacy, and demographics verified/updated. Admitting Dx: fall, L hip fx Strata Score: 0 PCP:Arcenio Specialists:nadine Diehl Pharmacy: [facility] Insurance: [facility] Prescription Benefit: yes LNOK: Natalie Bertrand, dtr Living Arrangements: Pt lives alone in a single story home with 2 steps to enter. Pt reports she holds onto the side of the door as there is no rail. Pt states prior to fall she was indep in ADL and most IADLs other than dtr does her laundry as it is in the basement. Pt denies concerns at home. Transportation: Pt drives self and denies concerns with transportation. Pt states she doesn't drive alot. She states that her dtr and son in law transport her. DME:cane, walker, rollator, safety tub HHC/SNF: Pt has had HHC through [facility] in the past and denies SNF stays. Pt aware that therapy will eval her post op and make recommendations on most appropriate therapy level. CE PATTERSON to discuss with her after therapy evals. Pt states no further concerns/needs. CM to follow. Advised pt to ask CM if any further questions/concerns/needs arise, voices understanding. Pt Goal: Home Plan: TBD pending OR and therapy karrie Mcgill RN, CM
--- NOTE | 2025-03-25 16:20 | PCM.PRE.AN2 ---
ASA Classification* ASA Classification ASA Classification: 3 and E Assessment & Plan Anesthesia* Anesthesia Assessment Anesthesia Assessment: Discussed sedation and/or anesthesia options, risks, benefits, and alternatives with patient/parents/legal guardian/POA. Questions invited. The patient/parents/legal guardian/POA seems to understand and agrees to proceed with anesthesia plan. Reviewed the physical assessment, medical history, allergy history and patient home medications list prior to surgery/procedure/anesthetic and documented any changes. Performed airway and anesthesia risk assessments. Anesthesia Type Anesthesia Type: General History Source History Obtained from:: Patient and Chart Anesthesia Focused Assessment* Temperature: 100.1 F Pulse Rate: 88 Blood Pressure: 142/63 Respiratory Rate: 16 Pulse Ox: 95 Oxygen Delivery Method: Room Air Oxygen Flow Rate (L/min): 2 Airway Assessment Mouth opens: >3 cm Mallampati Score: IV Teeth Condition: Dentures (Patient has full upper and lower dentures. They are out.) Neck Range of motion (ROM): Limited ROM (Somewhat Decreased) Labs Anesthesia Preop lab: CBC WBC, (4.4-11.0) 9.9 K/mm3 Today, 05:35 RBC, (4.2-5.4) 4.05 M/mm3 L Today, 05:35 Hgb, (12.0-15.0) 11.6 g/dL L Today, 05:35 Hct, (37-47) 35.0 % L Today, 05:35 Plt Count, (150-450) 243 K/mm3 Today, 05:35 CHEMISTRY Potassium, (3.3-5.1) 4.5 mmol/L Today, 05:35 Sodium, (133-145) 135 mmol/L Today, 05:35 Magnesium, (1.5-2.2) 2.5 mg/dL H Today, 05:35 BUN, (4-19) 30 mg/dL H Today, 05:35 Creatinine, (0.70-1.20) 1.28 mg/dL H Today, 05:35 Glucose, (70-99) 103 mg/dL H Today, 05:35 COAG PT, (11.7-14.9) 15.0 SECONDS H Today, 05:35 Pre-Assessment Diagnosis/Proposed Procedure Planned Operative Procedure(s): Left hip hemiarthroplasty. Anesthesia History Anesthesia History - mine expert: Anesthesia History - mine expert Hx Hospitalization Any Problems With Anesthesia No 03/25/25 01:34 Cholinesterase deficiency No 03/25/25 01:34 You/Your Family Experience No 03/25/25 01:34 fever (hyperthermia) with Relationship Recent Exposure to Contagious No 03/25/25 01:34 Disease Does patient have nerve No 03/25/25 01:34 stimulator Patient instructed to have No 03/25/25 01:34 device shut off --Does patient have Pacemaker No 03/25/25 13:59 or ICD? When Was Last Pacemaker Check QUESTION #4 FULL TEXT: You/Your Family Experience fever (hyperthermia) with Anesthesia Last Oral Intake Last Oral intake: Last Oral Intake NPO since 0000 Meds taken in AM with sips of water? Meds patient instructed to take am of surgery Any additional information?: Yes Meds taken in AM with sips of water?: Yes PONV PONV - mine expert: PONV - mine expert Female HX of Motion Sickness HX of N/V After Surgery Non-Smoker Duration of Surgery greater than 60 minutes Number of Risk Factors PONV Score Height & Weight Height & Weight: Anesthesia: Height & Weight Height 5 ft 2 in 03/25/25 13:59 Weight: 80.9 kg 03/25/25 13:59 Body Mass Index (BMI) 32.5 03/25/25 13:59 Respiratory Assessment Respiratory Assessment - mine expert: Respiratory Tract Infection Hx - mine expert Hx Respiratory Tract Infection No 03/25/25 01:34 STOP Sleep Apnea STOP Sleep Apnea - mine expert: STOP Sleep Apnea - mine expert Hx Hypertension Yes 03/25/25 01:26 Hx Sleep Apnea No 03/25/25 01:26 CPAP BIPAP Do you snore loudly (louder No 03/25/25 01:26 than talking or can be heard Do you often feel tired/ No 03/25/25 01:26 fatigued/ sleepy during daytime? Has anyone observed you stop No 03/25/25 01:26 breathing during sleep? STOP Results Negative 03/25/25 01:26 QUESTION #5 FULL TEXT : Do you snore loudly (louder than talking or can be heard through closed doors)? Tobacco Use History Tobacco Use History - mine expert: Tobacco Use History - mine expert Tobacco Use Smoking Status Former smoker 03/25/25 11:41 Hx Tobacco Use Yes 03/25/25 01:26 Years Smoking Packs Smoked per Day Smoking Cessation Date was Yes - quit smoking within 15 03/25/25 01:26 within the last 15 years years Hx Smoking Cessation Date 05/13/24 03/25/25 01:26 Hx Smoking Cessation Counseling Hematologic Medial History Hematologic Hx - mine expert: Hematologic Medical Hx - clinical documentation consultant Hx of Blood Transfusion No 03/25/25 01:26 Hx of Transfusion in last 3 No 03/25/25 01:26 Months Date of Last Transfusion (if within last 3 months) Ever experience any problems No 03/25/25 01:26 with transfusion(s)? Specify any problems Hx of Preganancy in last 3 No 03/25/25 01:26 Months Nurse Filling Out Transfusion AHINES 03/25/25 01:26 & Questions: Date: 03/25/25 03/25/25 01:26 Time: 01:28 03/25/25 01:26 Patient unable to answer at this time (ie. confused, unrespo /Reproduction History /Reproductive History - mine expert: /Reproductive Hx- mine expert Hx Now No 03/25/25 01:34 Gestational Age (in weeks): EDC: Hx Hx Para Hx Section SAB No 03/25/25 01:34 Does the father of the baby or his family experience fever w Father of the baby Malignant Hypertension history comment Active Medications Active Medications: Current Medications Generic Name Dose Route Start Last Admin Trade Name Freq PRN Reason Stop Dose Admin Acetaminophen 650 mg 03/24/25 23:06 03/25/25 02:09 Acetaminophen 325 Mg Tablet PO 650 mg Q4H PRN PRN Administration Fever, pain 1-10/10 Al Hydroxide/Mg Hydroxide 30 ml 03/24/25 23:06 Mag Hydrox/Al Hydrox/Simeth 30 Ml Udc PO Q6H PRN PRN Gastric Burning Albuterol Sulfate 2.5 mg 03/24/25 23:06 Albuterol 2.5 Mg/3 Ml Vial.Neb. INHALATION Q2H PRN PRN Dyspnea, wheezing Atorvastatin Calcium 40 mg 03/25/25 22:00 Atorvastatin Calcium 40 Mg Tablet PO QHS REMBERTO Budesonide 0.5 mg 03/24/25 23:15 03/25/25 07:25 Budesonide Respules 0.5 Mg/2 Ml Ampul.Neb. INHALATION 0.5 mg BID.RT REMBERTO Administration Bumetanide 1 mg 03/25/25 10:00 03/25/25 11:08 Bumetanide 0.5 Mg Tablet PO Not Given BID REMBERTO Guaifenesin 20 ml 03/24/25 23:06 Guaifenesin 10 Ml Udc (200mg/10ml) PO Q4H PRN PRN COUGH Hydralazine HCl 10 mg 03/24/25 23:06 Hydralazine 20 Mg/Ml Vial IV Q4H PRN PRN SBP > 160 Protocol Lactated Ringer's 1,000 mls @ 15 mls/hr 03/25/25 16:15 IV .Q48H REMBERTO Losartan Potassium 100 mg 03/25/25 10:00 Losartan Potassium 100 Mg Tablet PO DAILY [facility] Protocol Melatonin 3 mg 03/24/25 23:06 Melatonin 3 Mg Tablet PO QHS PRN PRN INSOMNIA Morphine Sulfate 2 - 4 mg 03/24/25 23:06 Morphine 4 Mg/Ml Syringe IV Q2H PRN PRN Pain Score 4-10 Ondansetron HCl 4 mg 03/24/25 23:06 Ondansetron 4 Mg/2 Ml Vial IV Q8H PRN PRN NAUSEA/VOMITING Oxycodone HCl 2.5 - 5 mg 03/24/25 23:06 03/25/25 08:55 Oxycodone 5 Mg Tablet PO 5 mg Q4H PRN PRN Administration Pain Score 4-10 Potassium Chloride 20 meq 03/25/25 10:00 03/25/25 11:08 Potassium Chloride Oral Tablet 20 Meq PO Not Given BID REMBERTO Senna/Docusate Sodium 2 tablet 03/25/25 10:00 03/25/25 11:08 Senna/Docusate Sodium 1 Tablet PO Not Given BID REMBERTO Sodium Chloride 10 - 40 ml 03/25/25 01:22 0.9% Saline Lock 10 Ml Syringe IV UD PRN SALINE FLUSH PFSH Medical History CKD stage 3a, GFR 45-59 ml/min Former tobacco use COPD (chronic obstructive pulmonary disease) PAF (paroxysmal atrial fibrillation) HLD (hyperlipidemia) HTN (hypertension) (HFpEF) heart failure with preserved ejection fraction Home Medications ?Medication ?Instructions ?Recorded ?Last Taken ?Type apixaban 5 mg tablet (Eliquis) 5 mg PO BID 03/24/25 Unknown History atorvastatin 40 mg tablet (Lipitor) 40 mg PO QHS 03/24/25 Unknown History budesonide 0.25 mg/2 mL suspension 0.25 mg inhalation BID 03/24/25 Unknown History for nebulization (Pulmicort) bumetanide 1 mg tablet 1 mg PO BID 03/24/25 Unknown History empagliflozin 10 mg tablet 10 mg PO DAILY 03/24/25 Unknown History (Jardiance) potassium chloride 20 mEq 20 meq PO BID 03/24/25 Unknown History tablet,extended release(part/cryst) (Klor-Con M) valsartan 320 mg tablet (Diovan) 320 mg PO DAILY 03/24/25 Unknown History Allergy/AdvReac Type Severity Reaction Status Date / Time dofetilide (From Tikosyn) Allergy Intermediate Arrhythmia Verified 03/24/25 22:10 alendronate sodium AdvReac Mild Myalgia Verified 03/24/25 22:10 cyproheptadine (From AdvReac Mild Paresthesia Verified 03/24/25 22:10 Periactin) s Family History Mother COPD (chronic obstructive pulmonary disease) Father Heart disease Surgical History S/P cholecystectomy S/P hysterectomy S/P appendectomy History of dilation of urethra S/P cataract extraction History of colonoscopy History of cardioversion Social History household members: none Smoking Status: Former smoker how long ago did patient quit smoking: Smoked 1 ppd in her 20s until 05/2024. alcohol intake: never substance use type: does not use Review of Systems (Anesthesia) ROS Narrative System reviewed and no additional complaints, except as documented.
[2025-03-25] MEDS: Lactated Ringers 1,000 ML 15 ML IV (16:21)
--- NOTE | 2025-03-25 17:02 | PN.ORTHO_ITS ---
Subjective Subjective Patient is continue to have left hip pain. Patient is known to me consult was performed at outside facility. Patient required transfer from [facility] after we found out that there would not be after-hours anesthesia available. Patient was admitted here. Patient has been evaluated by both medicine services found to be appropriate to proceed with surgical intervention. She was on Eliquis at the time of her fall we waited 48 hours. Family is at bedside. Patient reports severe left hip pain worse with motion better with immobilization. Objective Data Objective Data Vital Signs: Vital Signs Temp Pulse Resp BP Pulse Ox O2 Del Method O2 Flow Rate 100.1 F H 85 16 142/63 H 95 Room Air 2 03/25/25 16:23 03/25/25 16:57 03/25/25 16:57 03/25/25 16:23 03/25/25 16:23 03/25/25 16:23 03/25/25 16:23 Oxygen Flow Rate (L/min) 2 Oxygen Delivery Method Room Air Weight: 178 lb 5.663 oz Body Mass Index (BMI) 32.5 Intake & Output: Intake and Output for Last 24 Hours 03/23/25 03/24/25 03/25/25 23:59 23:59 23:59 Output Total 850 / 850 Balance -850 / -850 Lab / Micro Data Attestation: I reviewed the patient's lab results. 03/25/25 05:35 03/25/25 05:35 Labs: Laboratory Results - last 24 hr 03/25/25 05:35: WBC 9.9, RBC 4.05 L, Hgb 11.6 L, Hct 35.0 L, MCV 86.4, MCH 28.6, MCHC 33.1, RDW Std Deviation 41.3, RDW Coeff of Trish 13.2, Plt Count 243, MPV 9.9, Immature Gran % (Auto) 0.400, Neut % (Auto) 77.6 H, Lymph % (Auto) 8.3 L, M carlo % (Auto) 10.9 H, Eos % (Auto) 2.5, Baso % (Auto) 0.3, Absolute Neuts (auto) 7.7, Absolute Lymphs (auto) 0.82 L, Nucleated RBC % 0, PT 15.0 H, INR 1.2, APTT 34.3, Sodium 135, Potassium 4.5, Chloride 102, Carbon Dioxide 22.7, Anion Gap 11, BUN 30 H, Creatinine 1.28 H, Estim Creat Clear Calc 32.81 L, Est GFR (MDRD) Non-Af 42 L, BUN/Creatinine Ratio 23.0 H, Glucose 103 H, Calcium 8.0, Magnesium 2.5 H, Total Bilirubin 0.32, AST 24, ALT 17, Alkaline Phosphatase 82, Total Protein 5.9, Albumin 3.6, Globulin 2.4, Albumin/Globulin Ratio 1.5, Blood Type B POSITIVE, Antibody Screen NEGATIVE Physical Exam Const alert, oriented x3 and no apparent distress Resp Resp Narrative: Currently taking a breathing treatment Extremity Extremity Narrative: Left lower extremity: Skin clean, dry, and intact. Limb is shortened and externally rotated Motor is intact dorsiflexion, EHL and plantar flexion. Sensation is intact to light touch saphenous, aga,l superficial peroneal, deep peroneal and tibial distributions. Calves are soft and supple. Assessment & Plan Assessment/Plan (1) Closed left hip fracture: PLAN: Patient was seen and evaluated weighted yesterday at outside facility. Consult was performed. Patient was consented for left hip hemiarthroplasty. Unfortunately throughout the day we were notified they would not be available after hours anesthesia and patient was transferred to [facility]. At this time our plan is to proceed with surgery this evening. Antibiotics are ordered on-call the operating room. Patient has been adequately consented at this time. Her family is at bedside and any additional questions were answered at bedside today. As noted wrist and benefits of the procedure have been discussed with the patient including but not limited to blood loss, DVTs, PEs, neurovascular damage, infection comes in risk of anesthesia including loss of life. Dislocations, leg length discrepancies and fractures associated with bone preparation for the surgery. Patient and family demonstrate understanding wish to proceed as discussed at the time of her consultation yesterday. Patient is NPO. IV antibiotics were ordered and called to the operating room.
[2025-03-25] MEDS: Lidocaine 1% (5 ml sdv) 5 ML Vial IV (17:38)
[2025-03-25] MEDS: Cefazolin 1 GM/5 ML Vial 2 GM IV (17:40)
--- NOTE | 2025-03-25 18:45 | RAD_ITS ---
PROCEDURE: INTRAOPERATIVE FLUOROSCOPY LEFT HIP MIN 2 VIEWS (PORTABLE) 03/25/2025 REASON FOR EXAM: TIFFANIE ARTHROPLASTY; LEFT HIP TIFFANIE ARTHROPLASTY TECHNIQUE: Procedure Code: RADH_P; RADORFL_C_ARM Modality: DX Procedure: HIP MIN 2 VIEWS (PORTABLE); O.R. FLUORO FOR C-ARM Laterality: Left COMPARISON: None. FINDINGS: Intraoperative fluoroscopy status post left hip hemiarthroplasty. 3 fluoroscopic images were submitted for review. Total fluoroscopy time 10 seconds. Radiation dose 1.61 mGy. RAD/Hip Min 2 Views (Portable) IMPRESSION: Intraoperative fluoroscopy, as above. Reading Location: [id number]
--- NOTE | 2025-03-25 18:45 | RAD_ITS ---
PROCEDURE: INTRAOPERATIVE FLUOROSCOPY LEFT HIP MIN 2 VIEWS (PORTABLE) 03/25/2025 REASON FOR EXAM: TIFFANIE ARTHROPLASTY; LEFT HIP TIFFANIE ARTHROPLASTY TECHNIQUE: Procedure Code: RADH_P; RADORFL_C_ARM Modality: DX Procedure: HIP MIN 2 VIEWS (PORTABLE); O.R. FLUORO FOR C-ARM Laterality: Left COMPARISON: None. FINDINGS: Intraoperative fluoroscopy status post left hip hemiarthroplasty. 3 fluoroscopic images were submitted for review. Total fluoroscopy time 10 seconds. Radiation dose 1.61 mGy. RAD/O.R. Fluoro for C-Arm IMPRESSION: Intraoperative fluoroscopy, as above. Reading Location: [id number]
[2025-03-25] MEDS: TRANEXAMIC ACID 1,000 MG/10 ML ML 2000 MG OPERA.SITE (19:26)
--- NOTE | 2025-03-25 19:54 | OP.PCM_ITS ---
Operative Report (Standard) Operative Information Date of Procedure: 03/25/25 Pre-Operative Diagnosis: Left hip transcervical femoral neck fracture Post-Operative Diagnosis: Left hip displaced transcervical femoral neck fracture Surgery/Procedure Performed: Left direct anterior hip hemiarthroplasty radial drill press operator for plastic: Yes Fight Manager: Sarah Rashid Tasks completed by dental assistant teacher: Opening, Closing, Retracting and Other ( Tangible Personal Property Appraiser helped with dislocation and reduction of hip) Additional educational assistant teacher?: No Type of Anesthesia: General RN Documented Start/Stop Times: Operation Date: 03/25/25 08:20 Case Time Into Pre-Op 03/25/25 16:09 Anesthesia Start 03/25/25 17:32 Into Room 03/25/25 17:32 Procedure Start 03/25/25 18:45 Procedure End 03/25/25 20:06 Anesthesia End 03/25/25 20:18 Out of Room 03/25/25 20:18 Into Recovery 03/25/25 20:19 Out of Recovery 03/25/25 21:12 Procedure Start Time: 18:45 Procedure Stop Time: 20:06 Select all DRAINS/GRAFTS/IMPLANTS that apply: Prosthetic device Prosthetic device details: Lawrence Sparks 37.5 mm, #3 stem Lawrence Unitrax cobalt-chromium 48 mm femoral head with -4 mm sleeve Special Medications: Ancef Estimated Blood Loss: 300 mL Fluids Replaced: 800 mL crystalloid Specimen collected: Yes Description of specimen(s) removed: Femoral head and fracture Description of surgery: Procedure: On the date of procedure the patient's L hip was marked in the preoperative area. Patient was then taken back to the operating room where anesthesia assumed control of the C-spine and airway and administered anesthetic. Patient was transferred to the operating table and placed in the supine position. The hips were placed the break of the bed and a bump was placed in the sacrum. The L lower extremity was then prepped out in a sterile fashion using chlorhexidine while the surgeon scrubbed. Upon reentering the room the L lower extremity was draped in the standard orthopedic fashion and the incision was marked. A timeout was called and everyone agreed upon the side, the site, the procedure be performed, antibody given, and patient's identity. At this time incision was made through skin, subcutaneous tissue, and fat down to fascia. The fascia was then incised and the TFL was retracted laterally. A retractor was placed on the lateral border of the femoral neck. Attention was directed to the inferior portion of the approach and all crossing vessels were identified and appropriately coagulated. A retractor was then placed on the medial portion of the femoral neck. The anterior capsule was then cleared of all soft tissue and then H shaped capsulotomy was made. The retractors were then placed inside the capsule. The femoral neck was identified and a cleanup cut was made. At this time a power corkscrew was used to remove the femoral head. The femoral head was measures and a 48 mm unipolar component was selected. Soft tissue releases on the medial and lateral femoral neck were appropriately done, the leg was externally rotated and lateralized. A Brennan retractor was placed medially and proximally to the greater trochanter this allowed appropriate visualization and exposure of the femoral canal. Rongeour was then used to remove excess lateral bone. A canal finder and entry broach were used to open the proximal canal. Once we verified we were down the femoral canal we subsequently broached up to a size #3/37.5 femur. The appropriate neck was placed in the previously selected head was trialed with a -4mm neck. Traction was pulled and the hip was reduced with internal rotation. Once it was appropriately reduced and stability was checked. There was minimal shuck, equal leg lengths and appropriate stability with hyperextension and external rotation as well as with 90? flexion and internal rotation. The trial components were then dislocated the proximal femur was again exposed and the components were removed from the wound. The final components were verified and opened. The wound was copiously irrigated out with normal saline. The acetabulum was checked for any residual debris. Cement was mixed on the back table. Once the femoral canal was ready the cement was pressurized in the femoral canal. The final components were inserted and pressure was held until the cement cured. Trunnion was cleaned and we again retrialed with a -4 mm neck was appropriate. Traction and internal rotation were again used to reduce the hip. After adequate reduction the hip remained stable with appropriate leg lengths. The wound was then copiously irrigated with normal saline once more, and hemostasis was obtained. Closure was then done using #1 Vicryl runner to close the fascia. A 2-0 Vicryl interrupted sutures were used to close the subcutaneous skin. A 3-0 barbed Monocryl and Steri-Strips were used for final skin closure. A Silverlon dressing was placed. Patient was awakened by anesthesia and transferred to the rosceola. Patient was then transferred to the PACU for recovery. Postoperative plan: Patient will get 24 hours postop antibiotics. Patient will get in-house physical therapy and will be weight-bear as tolerated. Patient will follow up in office in 2 weeks for a wound check and x-rays. Patient will resume her Eliquis tomorrow Surgical Findings: Stable hip. Complications Complications: No Admit VTE Documentation VTE Present on Admission: No VTE Mechan Device Prophylaxis: SCD's and Thigh High SONDRA Hose VTE Pharm Prophylaxis ordered?: Yes
--- NOTE | 2025-03-25 20:27 | PCM.POST.ANE ---
Anesthesia: Postop Eval I Current Vital Signs Temperature: 97.2 F Pulse Rate: 82 Blood Pressure: 167/71 Respiratory Rate: 16 Pulse Ox: 96 Oxygen Delivery Method: Nasal Cannula Assessment Airway patent: Yes Spontaneous unlabored respirations: Yes Mental status: Asleep (arousable) nausea: No Vomiting: No Anesthesia Complication: No Fluid Hydration Crystalloid volume administer (ml): 800 Total IV fluid infused: 800 Progress Note Anesthesia document: Postop Eval 1 completed: Yes
[2025-03-25] MEDS: fentaNYL 100 MCG/2 ML Ampul IV (20:28)
--- NOTE | 2025-03-25 20:35 | RAD_ITS ---
PROCEDURE: LEFT HIP MIN 2 VIEWS (PORTABLE) 03/25/2025 REASON FOR EXAM: POST OP TECHNIQUE: Procedure Code: RADH_P Modality: DX Procedure: HIP MIN 2 VIEWS (PORTABLE) COMPARISON: None. FINDINGS: Status post left hip hemiarthroplasty. Hardware appears intact with anatomic alignment. Expected postoperative soft tissue swelling and subcutaneous emphysema about the left hip. RAD/Hip Min 2 Views (Portable) IMPRESSION: Status post left hip hemiarthroplasty. No unexpected findings. Reading Location: [id number]
--- NOTE | 2025-03-25 21:21 | PCM.POSTANE2 ---
Anesthesia Postop Eval I Sum Postop Eval Completion status Anesthesia document: Postop Eval 1 completed: Yes Anesthesia Postop Eval I Summary Anesthesia Postop Eval I Summary: Anesthesia Postop Eval I: Assessment Summary Airway patent Yes 03/25/25 20:28 Spontaneous unlabored Yes 03/25/25 20:28 respirations Mental status Asleep - arousable 03/25/25 20:28 nausea No 03/25/25 20:28 Vomiting No 03/25/25 20:28 Anesthesia Postop Eval I: Fluid Summary Crystalloid volume administer 800 03/25/25 20:28 (ml) Colloids volume administered ( ml) Blood Product volume administered (ml) Total IV fluid infused 800 03/25/25 20:28 Anesthesia Postop Eval I: Summary Notes Anesthesia Complication No 03/25/25 20:28 Anesthesia Complication Comment: Post-operative progress note Anesthesia: Postop Eval II Evaluation Mental status: Awake and Calm Pain Level: 2 nausea: No Vomiting: No Complications Anesthesia Complication: No
[2025-03-26] VITALS (10 sets, daily range): BP systolic 121–144; BP diastolic 56–65; PULSE 71–87; RESP 16–22; TEMP 36.5–37.3; O2SAT 80–98; BMI 32.1
[2025-03-26] MEDS: 0.9% Saline Lock 10 ML Syringe IV (04:57)
[2025-03-26 05:11] LABS: Hematocrit 34.4 % (37-47); Hemoglobin 11.3 g/dL (12.0-15.0); Immature Granulocytes Count 0.060 X10^3/uL (0.0-0.0); Mean Corp Hgb Conc 32.8 g/dL (32-36); Mean Corpuscular Volume 87.5 fL (81-99); Mean Platelet Vol. 10.2 fl (6.2-12.0); NRBC Flagged by Analyzer 0 % (0-5); POSITIVE DIFFERENTIAL YES; Platelet Count 289 K/mm3 (150-450); RBC Distribution Width CV 13.4 % (11.6-14.6); RBC Distribution Width SD 43.0 fl (35.1-43.9); Red Blood Count 3.93 M/mm3 (4.2-5.4); White Blood Count 13.3 K/mm3 (4.4-11.0)
[2025-03-26 05:15] LABS: Differential Indicated SCAN CRITERIA MET
[2025-03-26 05:40] LABS: Anion Gap 13 (5-15); BUN 32 mg/dL (4-19); BUN/Creat Ratio 22.6 RATIO (10-20); Calcium,Total 7.7 mg/dL (7.6-11.0); Carbon Dioxide 19.9 mmol/L (21.0-32.0); Chloride 103 mmol/L (98-108); Estimated Creatinine Clearance 29.54 ml/min (50-250); Glucose 116 mg/dL (70-99); Magnesium 2.6 mg/dL (1.5-2.2); Potassium 4.6 mmol/L (3.3-5.1)
[2025-03-26 05:44] LABS: Differential Comment SCANNED
--- NOTE | 2025-03-26 06:52 | PCM.PN.ORT ---
Subjective Subjective Patient is sitting comfortably in bedside chair upon examination. Patient states that she has no pain and her pain is adequately controlled. Patient denies any shortness of breath, chest pain, calf pain. Patient denies any new numbness or tingling. Patient denies any fevers, chills, signs of infection. Patient has had some nausea and vomiting this morning after trying to drink some coffee. Patient has not yet been up working with physical therapy. Patient denies any adverse events overnight. Objective Data Objective Data Vital Signs: Vital Signs Temp Pulse Resp BP Pulse Ox O2 Del Method O2 Flow Rate 98.3 F 80 18 131/56 H 98 Nasal Cannula 2 03/26/25 04:32 03/26/25 04:32 03/26/25 04:32 03/26/25 04:32 03/26/25 05:00 03/26/25 05:00 03/26/25 05:00 Oxygen Flow Rate (L/min) 2 Oxygen Delivery Method Nasal Cannula Weight: 79.1 kg Body Mass Index (BMI) 32.1 Intake & Output: Intake and Output for Last 24 Hours 03/24/25 03/25/25 03/26/25 23:59 23:59 23:59 Intake Total 92.25 / 92.25 100 / 100 Output Total 1350 / 1350 200 / 200 Balance -1257.75 / -1257.75 -100 / -100 Lab / Micro Data 03/26/25 04:49 03/26/25 04:49 Labs: Laboratory Results - last 24 hr 03/26/25 04:49: WBC 13.3 H, RBC 3.93 L, Hgb 11.3 L, Hct 34.4 L, MCV 87.5, MCH 28.8, MCHC 32.8, RDW Std Deviation 43.0, RDW Coeff of Trish 13.4, Plt Count 289, MPV 10.2, Immature Gran % (Auto) 0.400, Neut % (Auto) 78.7 H, Lymph % (Auto) 7.4 L, [place] % (Auto) 11.5 H, Eos % (Auto) 1.6, Baso % (Auto) 0.4, Absolute Neuts (auto) 10.5 H, Absolute Lymphs (auto) 0.99, Nucleated RBC % 0, Differential Comment SCANNED, Sodium 136, Potassium 4.6, Chloride 103, Carbon Dioxide 19.9 L, Anion Gap 13, BUN 32 H, Creatinine 1.43 H, Estim Creat Clear Calc 29.54 L, Est GFR (MDRD) Non-Af 37 L, BUN/Creatinine Ratio 22.6 H, Glucose 116 H, Calcium 7.7, Phosphorus 3.3, Magnesium 2.6 H Radiography Diagnostic Testing: Radiology Impression C-Arm Fluoroscopy 03/25/25 18:45 IMPRESSION: Intraoperative fluoroscopy, as above. Reading Location: [facility] Hip X-Ray 03/25/25 18:45 IMPRESSION: Intraoperative fluoroscopy, as above. Reading Location: [facility] Hip X-Ray 03/25/25 20:35 IMPRESSION: Status post left hip hemiarthroplasty. No unexpected findings. Reading Location: [facility] Physical Exam Narrative Vital signs are stable patient is afebrile SONDRA hose in place bilaterally SCDs in place bilaterally Left hip is soft and supple Dorsiflexion and plantarflexion performed actively without pain or restriction Sensation tact light touch Neurovascular intact overall Negative Homans bilaterally. Const alert, oriented x3 and no apparent distress Assessment & Plan Assessment/Plan (1) Closed left hip fracture: PLAN: Status post left direct anterior hip hemiarthroplasty day 1 DVT prophylaxis: Patient will be on her regular dose of Eliquis today. Patient will be wearing SONDRA hose for 2 weeks postoperatively. Patient was educated she can take SONDRA hose off for showering and at nighttime and replace in the morning. Pain medications: Patient is currently on Tylenol and oxycodone which patient states that her pain is relatively controlled. Pain will continue to be managed by primary care team. Constipation: Patient was instructed to continue to use her senna until her first bowel movement and then can use as needed. Patient was educated if she has not had a bowel movement and 3 3 days to contact our office. Physical therapy: Patient will be weightbearing as tolerated with walker and physical therapy. Patient will need outpatient physical therapy established. Reactive leukocytosis: White blood cell count is currently 13.3. Vitals are stable and patient is afebrile. H&H: 11.3/34.4. Vital signs are stable patient is afebrile at this time. Patient is currently on oxygen. Patient states that she was on oxygen at home but then it sounds like it was discontinued recently. Incentive spirometry: Patient was encouraged to use incentive spirometer every hour she is awake for the first week to exercise lungs and decrease risk of postoperative lung infection Dressings: Patient is able to get her waterproof Mepilex wet on postop day 1. Patient was educated she can remove it on postop day 5. Patient was educated to leave her Steri-Strips in place and allow them to follow-up on their own. Patient was educated once the dressing is removed she can leave the incision open to air while allowing the Steri-Strips to fall off. Patient was advised against doing any soaking or submerging for 6 weeks. Patient was advised to avoid putting any lotions, salves, oils on incision for 6 weeks. Medicine is currently involved with the primary care team. We will need a follow-up appointment with our office in 2 weeks for wound check. Disposition: Patient is okay for discharge from orthopedic standpoint as long as pain maintains adequately controlled, patient works with and does well with physical therapy, and is okay per medicine doctor who is currently primary care team. Patient does live at home on her own and would potentially benefit from a stay at a transitional care unit prior to going home. Patient states that her daughter would come over in the evenings however she would have no one there during the day. Depending on how patient does with physical therapy I feel she would likely benefit from a transitional care unit before returning home on her own. Patient will need outpatient physical therapy established. Patient will need 2-week follow-up appointment with our office. Patient is weightbearing as tolerated following anterior hip precautions with her walker. Patient was encouraged to call our office with any questions, concerns, new problems. All questions were answered to best my ability.
[2025-03-26] MEDS: Budesonide Respules 0.5 MG/2 ML AMPUL.NEB. INHALATION ×2 (07:15→19:30)
--- NOTE | 2025-03-26 07:15 | PN.HOSP_ITS ---
Reason for Visit Chief Complaint: Fall, L hip fx, transfer from H Subjective Subjective Patient underwent left direct anterior hip hemiarthroplasty on 03/26/2054 Objective Data Objective Data Vital Signs: Vital Signs Temp Pulse Resp BP Pulse Ox O2 Del Method O2 Flow Rate 98.3 F 80 18 131/56 H 98 Nasal Cannula 2 03/26/25 04:32 03/26/25 04:32 03/26/25 04:32 03/26/25 04:32 03/26/25 05:00 03/26/25 05:00 03/26/25 05:00 Oxygen Flow Rate (L/min) 2 Oxygen Delivery Method Nasal Cannula Weight: 79.1 kg Body Mass Index (BMI) 32.1 Intake & Output: Intake and Output for Last 24 Hours 03/24/25 03/25/25 03/26/25 23:59 23:59 23:59 Intake Total 92.25 / 92.25 100 / 100 Output Total 1350 / 1350 200 / 200 Balance -1257.75 / -1257.75 -100 / -100 Lab / Micro Data 03/26/25 04:49 03/26/25 04:49 Labs: Laboratory Results - last 24 hr 03/26/25 04:49: WBC 13.3 H, RBC 3.93 L, Hgb 11.3 L, Hct 34.4 L, MCV 87.5, MCH 28.8, MCHC 32.8, RDW Std Deviation 43.0, RDW Coeff of Trish 13.4, Plt Count 289, MPV 10.2, Immature Gran % (Auto) 0.400, Neut % (Auto) 78.7 H, Lymph % (Auto) 7.4 L, [place] % (Auto) 11.5 H, Eos % (Auto) 1.6, Baso % (Auto) 0.4, Absolute Neuts (auto) 10.5 H, Absolute Lymphs (auto) 0.99, Nucleated RBC % 0, Differential Comment SCANNED, Sodium 136, Potassium 4.6, Chloride 103, Carbon Dioxide 19.9 L, Anion Gap 13, BUN 32 H, Creatinine 1.43 H, Estim Creat Clear Calc 29.54 L, Est GFR (MDRD) Non-Af 37 L, BUN/Creatinine Ratio 22.6 H, Glucose 116 H, Calcium 7.7, Phosphorus 3.3, Magnesium 2.6 H Radiography Diagnostic Testing: Radiology Impression C-Arm Fluoroscopy 03/25/25 18:45 IMPRESSION: Intraoperative fluoroscopy, as above. Reading Location: [facility] Hip X-Ray 03/25/25 18:45 IMPRESSION: Intraoperative fluoroscopy, as above. Reading Location: [facility] Hip X-Ray 03/25/25 20:35 IMPRESSION: Status post left hip hemiarthroplasty. No unexpected findings. Reading Location: [facility] Physical Exam Narrative GENERAL: cooperative HEENT: Atraumatic; normocephalic EYES; Anicteric, Normal Conjunctiva NECK; supple, normal thyroid, RESPIRATORY: Diminished to auscultation CARDIOVASCULAR: Regular S1 S2, GI: soft, normoactive bowel sounds, : No Renal angle tenderness; EXTREMITIES: No edema, no clubbing, MUSCULOSKELETAL: Tender to palpation in the left hip NEURO: Awake; no lateralizing signs. SKIN: No Rash PSYCH; Flat affect Assessment & Plan Assessment/Plan (1) Closed left hip fracture: PLAN: Plan Patient is an 84-year-old lady who was sent from an outside hospital?[facility] after presenting with a fall. Imaging studies demonstrated bascervical fracture L proximal femur, mild mild foreshorting and mild angulation Fall with left hip fracture Imaging studies on admission t demonstrated L hip pain s/p mechanical fall w/ L hip fracture: CT L hip at OSH with noted bascervical fracture L proximal femur, mild mild foreshorting and mild angulation. Orthopedic surgery was consulted prior to patient being transferred. Admitted to regular nursing floor managed with pain medication, immobilization n.p.o. after midnight. Decision regarding patient surgical intervention deferred to Ortho. Patient perioperative perioperative morbidity/mortality risk as documented by admitting H&P ? 03/26/2025; Patient underwent left direct anterior hip hemiarthroplasty on 03/25/2025 2. Paroxysmal atrial fibrillation ? Patient is on apixaban held since 03/22/2025. Plan is to resume following surgery ? 03/26/2025; did resume patient on apixaban 3. Chronic congestive heart failure with preserved ejection fraction ? Echo from 12/29/2024 demonstrated EF of 55 to 60% with moderate mitral valve regurgitation. Patient currently remains compensated 4. Hypertension ? Blood pressure controlled, home medications continued with dose adjustment as needed 5. Dyslipidemia ?Patient is on statin therapy, continued at home dose 6. Chronic kidney disease stage IIIa ? Kidney function at baseline 7. COPD ? Bronchodilator treatment as needed 8. Anemia ? Secondary to chronic disorder monitoring H&H and transfuse if patient becomes symptomatic or hemoglobin falls below 7 9. DVT prophylaxis ? Bilateral SCDs for now ?03/26/2025; apixaban resumed Charges/Coding Visit Charges Inpatient E&M: 06086 Subs Hosp L2
[2025-03-26] MEDS: APIXABAN 5 MG TABLET PO ×2 (09:35→21:21)
[2025-03-26] MEDS: Senna/Docusate Sodium 1 Tablet 2 TABLET PO ×2 (09:35→21:21)
[2025-03-26] MEDS: Potassium Chloride Oral Tablet 20 MEQ PO ×2 (09:35→21:22)
--- NOTE | 2025-03-26 12:02 | CASEMGMT ---
Addendum entered by Deena Davis 03/26/25 15:16: TC to pt dtr, she is aware that pt was accepted at [facility]. She denies any further questions. She states she will be in to see pt this evening. Addendum entered by Deena Davis 03/26/25 13:16: Pt accepted at [facility], CE PATTERSON into pt room, she is aware. Pt asks for CE PATTERSON to contact her dtr. TC to carlota Estrada, damian requesting returned call. Precert to be started. Pt is aware that once this is received she will be trf'd to TCU. Original Note: Noted therapy evals. CE PATTERSON into pt room, pt states she feels she did ok with therapy but lost her balance and feels it would be good for some therapy prior to returning home. Pt states she would want [facility] as stated yesterday and denies need for a list of options. Referral made to [facility] at this time.
[2025-03-26] MEDS: MELATONIN 3 MG TABLET PO (21:41)
[2025-03-27 03:28] VITALS: BP 129/49; PULSE 74; RESP 16; TEMP 36.6; O2SAT 98
[2025-03-27 03:49] VITALS: RESP 24
[2025-03-27 03:51] VITALS: BMI 32.8
[2025-03-27] MEDS: Budesonide Respules 0.5 MG/2 ML AMPUL.NEB. INHALATION (06:29)
[2025-03-27 06:50] VITALS: PULSE 81; RESP 20
--- NOTE | 2025-03-27 07:17 | PCM.PN.HOSP ---
Reason for Visit Chief Complaint: Fall, L hip fx, transfer from OSH Subjective Subjective Patient complains of soreness on the side of her incision.Potassium of 5.3 and sodium of 132 Objective Data Objective Data Vital Signs: Vital Signs Temp Pulse Resp BP Pulse Ox O2 Del Method O2 Flow Rate 97.9 F 74 24 H 129/49 H 98 Nasal Cannula 2 03/27/25 03:28 03/27/25 03:28 03/27/25 03:49 03/27/25 03:28 03/27/25 03:28 03/27/25 03:49 03/27/25 03:49 Oxygen Flow Rate (L/min) 2 Oxygen Delivery Method Nasal Cannula Weight: 80.9 kg Body Mass Index (BMI) 32.8 Intake & Output: Intake and Output for Last 24 Hours 03/25/25 03/26/25 03/27/25 23:59 23:59 23:59 Intake Total 92.25 / 92.25 350 / 350 200 / 200 Output Total 1350 / 1350 500 / 500 Balance -1257.75 / -1257.75 -150 / -150 200 / 200 Lab / Micro Data 03/27/25 06:48 03/27/25 06:48 Physical Exam Narrative GENERAL: cooperative HEENT: Atraumatic; normocephalic EYES; Anicteric, Normal Conjunctiva NECK; supple, normal thyroid, RESPIRATORY: Diminished to auscultation CARDIOVASCULAR: Regular S1 S2, GI: soft, normoactive bowel sounds, : No Renal angle tenderness; EXTREMITIES: No edema, no clubbing, MUSCULOSKELETAL: Tender to palpation in the left hip NEURO: Awake; no lateralizing signs. SKIN: No Rash PSYCH; Flat affect Assessment & Plan Assessment/Plan (1) Closed left hip fracture: PLAN: Plan Patient is an 84-year-old lady who was sent from an outside hospital?[facility] after presenting with a fall. Imaging studies demonstrated bascervical fracture L proximal femur, mild mild foreshorting and mild angulation Fall with left hip fracture Imaging studies on admission t demonstrated L hip pain s/p mechanical fall w/ L hip fracture: CT L hip at OSH with noted bascervical fracture L proximal femur, mild mild foreshorting and mild angulation. Orthopedic surgery was consulted prior to patient being transferred. Admitted to regular nursing floor managed with pain medication, immobilization n.p.o. after midnight. Decision regarding patient surgical intervention deferred to Ortho. Patient perioperative perioperative morbidity/mortality risk as documented by admitting H&P ? 03/26/2025; Patient underwent left direct anterior hip hemiarthroplasty on 03/25/2025 2. Paroxysmal atrial fibrillation ? Patient is on apixaban held since 03/22/2025. Plan is to resume following surgery ? 03/26/2025; did resume patient on apixaban 3. Chronic congestive heart failure with preserved ejection fraction ? Echo from 12/29/2024 demonstrated EF of 55 to 60% with moderate mitral valve regurgitation. Patient currently remains compensated 4. Hypertension ? Blood pressure controlled, home medications continued with dose adjustment as needed 5. Dyslipidemia ?Patient is on statin therapy, continued at home dose 6. Chronic kidney disease stage IIIa ? Kidney function at baseline 7. COPD ? Bronchodilator treatment as needed 8. Anemia ? Secondary to chronic disorder monitoring H&H and transfuse if patient becomes symptomatic or hemoglobin falls below 7 9. DVT prophylaxis ? Bilateral SCDs for now ?03/26/2025; apixaban resumed 10. Hyperkalemia ? Repeated K levels 11. Hyponatremia ? Secondary to volume depletion patient is on Bumex held for a day Charges/Coding Visit Charges Inpatient E&M: 67467 Subs Hosp L2
[2025-03-27 07:19] LABS: Hematocrit 35.3 % (37-47); Hemoglobin 11.2 g/dL (12.0-15.0); Immature Granulocytes Count 0.070 X10^3/uL (0.0-0.0); Mean Corp Hgb Conc 31.7 g/dL (32-36); Mean Corpuscular Volume 89.8 fL (81-99); Mean Platelet Vol. 10.4 fl (6.2-12.0); NRBC Flagged by Analyzer 0 % (0-5); Platelet Count 292 K/mm3 (150-450); RBC Distribution Width CV 13.5 % (11.6-14.6); RBC Distribution Width SD 44.2 fl (35.1-43.9); Red Blood Count 3.93 M/mm3 (4.2-5.4); White Blood Count 14.8 K/mm3 (4.4-11.0)
[2025-03-27 07:52] LABS: Anion Gap 12 (5-15); BUN 34 mg/dL (4-19); BUN/Creat Ratio 24.7 RATIO (10-20); Calcium,Total 7.9 mg/dL (7.6-11.0); Carbon Dioxide 21.4 mmol/L (21.0-32.0); Chloride 99 mmol/L (98-108); Estimated Creatinine Clearance 30.75 ml/min (50-250); Glucose 104 mg/dL (70-99); Potassium 5.3 mmol/L (3.3-5.1)
[2025-03-27 09:00] VITALS: BP 116/54; PULSE 76; RESP 18; TEMP 36.6; O2SAT 95
[2025-03-27 09:20] VITALS: O2SAT 97
--- NOTE | 2025-03-27 09:45 | DS.PCM_ITS ---
Providers Date of Admission: 03/25/25 Date of Discharge: 03/27/25 Primary Care Physician: Dr. Aristeo Rg MD Consultations 03/24/25 23:06 Consult: Orthopedics Routine Consulting Provider: Deshaun Valencia Reason for Consult: Fall, L hip fracture EMERGENT Consult: No MD Notified: Yes Date Notified: 03/24/25 Time Notified: 23:08 Method of Notification: Verbal Reason For Visit: FALL, L HIP FRACTURE Diagnosis Discharge Diagnosis (1) Closed left hip fracture: Status: Acute Code(s): S72.002A - Fracture of unspecified part of neck of left femur, initial encounter for closed fracture Plan Patient is an 84-year-old lady who was sent from an outside hospital?[facility] after presenting with a fall. Imaging studies demonstrated bascervical fracture L proximal femur, mild mild foreshorting and mild angulation Fall with left hip fracture Imaging studies on admission t demonstrated L hip pain s/p mechanical fall w/ L hip fracture: CT L hip at OSH with noted bascervical fracture L proximal femur, mild mild foreshorting and mild angulation. Orthopedic surgery was consulted prior to patient being transferred. Admitted to regular nursing floor managed with pain medication, immobilization n.p.o. after midnight. Decision regarding patient surgical intervention deferred to Ortho. Patient perioperative perioperative morbidity/mortality risk as documented by admitting H&P ? 03/26/2025; Patient underwent left direct anterior hip hemiarthroplasty on 03/25/2025 2. Paroxysmal atrial fibrillation ? Patient is on apixaban held since 03/22/2025. Plan is to resume following surgery ? 03/26/2025; did resume patient on apixaban 3. Chronic congestive heart failure with preserved ejection fraction ? Echo from 12/29/2024 demonstrated EF of 55 to 60% with moderate mitral valve regurgitation. Patient currently remains compensated 4. Hypertension ? Blood pressure controlled, home medications continued with dose adjustment as needed 5. Dyslipidemia ?Patient is on statin therapy, continued at home dose 6. Chronic kidney disease stage IIIa ? Kidney function at baseline 7. COPD ? Bronchodilator treatment as needed 8. Anemia ? Secondary to chronic disorder monitoring H&H and transfuse if patient becomes symptomatic or hemoglobin falls below 7 9. DVT prophylaxis ? Bilateral SCDs for now ?03/26/2025; apixaban resumed 10. Hyperkalemia ? Repeated K levels 11. Hyponatremia ? Secondary to volume depletion patient is on Bumex held for a day Medications at Discharge Home Medications apixaban 5 mg tablet (Eliquis) 5 mg PO BID 03/24/25 atorvastatin 40 mg tablet (Lipitor) 40 mg PO QHS 03/24/25 budesonide 0.25 mg/2 mL suspension for nebulization (Pulmicort) 0.25 mg inhalation BID 03/24/25 bumetanide 1 mg tablet 1 mg PO BID 03/24/25 empagliflozin 10 mg tablet (Jardiance) 10 mg PO DAILY 03/24/25 potassium chloride 20 mEq tablet,extended release(part/cryst) (Klor-Con M) 20 meq PO BID 03/24/25 valsartan 320 mg tablet (Diovan) 320 mg PO DAILY 03/24/25 acetaminophen 500 mg tablet 1,000 mg (2 x 500 mg) PO Q8 #0 tabs 03/27/25 aluminum-mag hydroxide-simethicone 400 mg-400 mg-40 mg/5 mL oral susp (Mag-Al Plus Extra Strength) 30 ml PO Q6H PRN PRN Gastric Burning #0 mL 03/27/25 melatonin 3 mg tablet 3 mg PO QHS PRN PRN Insomnia #0 tabs 03/27/25 nut.tx.comp. immune systm,reg 0.08 gram-1.4 kcal/mL oral liquid (Ensure Surgery) 237 ml PO TIDCM #0 mL 03/27/25 oxycodone 5 mg tablet 5 mg PO Q4H PRN PRN Pain Score 4-10 1 day #2 tabs 03/27/25 Hospital Course Summary of Care Provided Minutes Spent on Discharge: 32 Physical Exam Narrative GENERAL: cooperative HEENT: Atraumatic; normocephalic EYES; Anicteric, Normal Conjunctiva NECK; supple, normal thyroid, RESPIRATORY: Diminished to auscultation CARDIOVASCULAR: Regular S1 S2, GI: soft, normoactive bowel sounds, : No Renal angle tenderness; EXTREMITIES: No edema, no clubbing, MUSCULOSKELETAL: Tender to palpation in the left hip NEURO: Awake; no lateralizing signs. SKIN: No Rash PSYCH; Flat affect Weight / BMI Weight Weight: 80.9 kg Body Mass Index (BMI) 32.8 ABG / Lab / Microbiology Data 03/27/25 06:48 03/27/25 06:48 Laboratory: Laboratory Results - last 24 hr 03/27/25 06:48: WBC 14.8 H, RBC 3.93 L, Hgb 11.2 L, Hct 35.3 L, MCV 89.8, MCH 28.5, MCHC 31.7 L, RDW Std Deviation 44.2 H, RDW Coeff of Trish 13.5, Plt Count 292, MPV 10.4, Immature Gran % (Auto) 0.500, Neut % (Auto) 83.4 H, Lymph % (Auto) 4.9 L, [place] % (Auto) 9.3, Eos % (Auto) 1.4, Baso % (Auto) 0.5, Absolute Neuts (auto) 12.4 H, Absolute Lymphs (auto) 0.73 L, Nucleated RBC % 0, Sodium 132 L, Potassium 5.3 H, Chloride 99, Carbon Dioxide 21.4, Anion Gap 12, BUN 34 H , Creatinine 1.39 H, Estim Creat Clear Calc 30.75 L, Est GFR (MDRD) Non-Af 38 L, BUN/Creatinine Ratio 24.7 H, Glucose 104 H, Calcium 7.9 D/C Instructions DC O2, CPAP, BIPAP Needs Home O2 Discharge instructions: No Meaningful Use Info Meaningful Use Meaningful Use Diagnoses (Choose all that apply): None applicable Discharge Plan Admission Admit Date/Time: 03/25/25 00:40 Attending Provider: Moises Branch Primary Care Provider: Aristeo Rg Consulting Providers: Deshaun Valencia; Usha Medley Discharge Orders/Prescriptions Prescriptions: New acetaminophen 500 mg Tablet 1,000 mg PO Q8 Qty: 0 0RF Ensure Surgery 0.08-1.4 gram-kcal/mL Liquid 237 ml PO TIDCM Qty: 0 0RF alum-mag hydroxide-simeth [Mag-Al Plus Extra Strength] 400-400-40 mg/5 mL Suspension 30 ml PO Q6H PRN PRN (Reason: Gastric Burning) Qty: 0 0RF melatonin 3 mg Tablet 3 mg PO QHS PRN PRN (Reason: Insomnia) Qty: 0 0RF oxycodone 5 mg Tablet 5 mg PO Q4H PRN PRN (Reason: Pain Score 4-10) 1 Days Qty: 2 0RF Continued atorvastatin [Lipitor] 40 mg tablet 40 mg PO QHS budesonide [Pulmicort] 0.25 mg/2 mL suspension for nebulization 0.25 mg inhalation BID bumetanide 1 mg tablet 1 mg PO BID Jardiance 10 mg tablet 10 mg PO DAILY potassium chloride [Klor-Con M20] 20 mEq tablet,ER particles/crystals 20 meq PO BID valsartan [Diovan] 320 mg tablet 320 mg PO DAILY Eliquis 5 mg tablet 5 mg PO BID Referrals / Follow Up: Aristeo Rg MD [Primary Care Provider, Laboratory] Disposition Disposition (needs filled in before D/C Order can be placed): Longterm Facility Charges/Coding Visit Charges Inpatient E&M: 63457 Disch Hosp >30min
--- NOTE | 2025-03-27 09:45 | PCM.TXEXTCAR ---
Diet Diet Order/Speech Therapy: INPATIENT Hospital Diet / Speech Therapy Order(s) 03/26/25 09:42 Diet: Regular - General Routine Orders/Code Status Code Status: Full Code DC O2, CPAP, BIPAP needs Home O2 Discharge instructions: No Wound(s) left hip: Wound Type: Surgical Incision R buttock/lower back: Wound Type: skin tear from scratching Therapies Physical Therapy: Eval and Treat Occupational Therapy: Eval and Treat Problem/Diagnosis (1) Closed left hip fracture: Status: Acute Code(s): S72.002A - Fracture of unspecified part of neck of left femur, initial encounter for closed fracture Plan Patient is an 84-year-old lady who was sent from an outside hospital?[facility] after presenting with a fall. Imaging studies demonstrated bascervical fracture L proximal femur, mild mild foreshorting and mild angulation Fall with left hip fracture Imaging studies on admission t demonstrated L hip pain s/p mechanical fall w/ L hip fracture: CT L hip at OSH with noted bascervical fracture L proximal femur, mild mild foreshorting and mild angulation. Orthopedic surgery was consulted prior to patient being transferred. Admitted to regular nursing floor managed with pain medication, immobilization n.p.o. after midnight. Decision regarding patient surgical intervention deferred to Ortho. Patient perioperative perioperative morbidity/mortality risk as documented by admitting H&P ? 03/26/2025; Patient underwent left direct anterior hip hemiarthroplasty on 03/25/2025 2. Paroxysmal atrial fibrillation ? Patient is on apixaban held since 03/22/2025. Plan is to resume following surgery ? 03/26/2025; did resume patient on apixaban 3. Chronic congestive heart failure with preserved ejection fraction ? Echo from 12/29/2024 demonstrated EF of 55 to 60% with moderate mitral valve regurgitation. Patient currently remains compensated 4. Hypertension ? Blood pressure controlled, home medications continued with dose adjustment as needed 5. Dyslipidemia ?Patient is on statin therapy, continued at home dose 6. Chronic kidney disease stage IIIa ? Kidney function at baseline 7. COPD ? Bronchodilator treatment as needed 8. Anemia ? Secondary to chronic disorder monitoring H&H and transfuse if patient becomes symptomatic or hemoglobin falls below 7 9. DVT prophylaxis ? Bilateral SCDs for now ?03/26/2025; apixaban resumed 10. Hyperkalemia ? Repeated K levels 11. Hyponatremia ? Secondary to volume depletion patient is on Bumex held for a day Allergies/Procedures Done in Hospital Allergies dofetilide (From Tikosyn) Allergy (Intermediate, Verified 03/24/25 22:10) Arrhythmia alendronate sodium Adverse Reaction (Mild, Verified 03/24/25 22:10) Myalgia cyproheptadine (From Periactin) Adverse Reaction (Mild, Verified 03/24/25 22:10) Paresthesias Type of Care/Length of Stay Estimated LOS: Convalescent Care Less Than 30 days Type of Care Needed: Skilled Rehab Potential: Good Prognosis: Good Additional Orders/Day of Discharge Day of Discharge: 03/27/25 Discharge Plan Admission Admit Date/Time: 03/25/25 00:40 Attending Provider: Moises Branch Primary Care Provider: Aristeo Rg Consulting Providers: Deshaun Valencia; Usha Medley Discharge Orders/Prescriptions Prescriptions: New acetaminophen 500 mg Tablet 1,000 mg PO Q8 Qty: 0 0RF Ensure Surgery 0.08-1.4 gram-kcal/mL Liquid 237 ml PO TIDCM Qty: 0 0RF alum-mag hydroxide-simeth [Mag-Al Plus Extra Strength] 400-400-40 mg/5 mL Suspension 30 ml PO Q6H PRN PRN (Reason: Gastric Burning) Qty: 0 0RF melatonin 3 mg Tablet 3 mg PO QHS PRN PRN (Reason: Insomnia) Qty: 0 0RF oxycodone 5 mg Tablet 5 mg PO Q4H PRN PRN (Reason: Pain Score 4-10) 1 Days Qty: 2 0RF Continued atorvastatin [Lipitor] 40 mg tablet 40 mg PO QHS budesonide [Pulmicort] 0.25 mg/2 mL suspension for nebulization 0.25 mg inhalation BID bumetanide 1 mg tablet 1 mg PO BID Jardiance 10 mg tablet 10 mg PO DAILY potassium chloride [Klor-Con M20] 20 mEq tablet,ER particles/crystals 20 meq PO BID valsartan [Diovan] 320 mg tablet 320 mg PO DAILY Eliquis 5 mg tablet 5 mg PO BID Referrals / Follow Up: Aristeo Rg MD [Primary Care Provider, Laboratory] Disposition Disposition (needs filled in before D/C Order can be placed): [facility]
[2025-03-27] MEDS: APIXABAN 5 MG TABLET PO (09:56)
[2025-03-27] MEDS: Potassium Chloride Oral Tablet 20 MEQ PO (09:57)
[2025-03-27] MEDS: Senna/Docusate Sodium 1 Tablet 2 TABLET PO (09:57)
--- NOTE | 2025-03-27 10:09 | PHA.DC.MR.R ---
Pharmacy [place] Med Reconciliation Pharmacy Service has performed discharge medication reconciliation for this patient. The patient's discharge medication list was reviewed for discrepancies and discrepancies were resolved. Medications at Discharge Home Medications apixaban 5 mg tablet (Eliquis) 5 mg PO BID 03/24/25 atorvastatin 40 mg tablet (Lipitor) 40 mg PO QHS 03/24/25 budesonide 0.25 mg/2 mL suspension for nebulization (Pulmicort) 0.25 mg inhalation BID 03/24/25 bumetanide 1 mg tablet 1 mg PO BID 03/24/25 empagliflozin 10 mg tablet (Jardiance) 10 mg PO DAILY 03/24/25 potassium chloride 20 mEq tablet,extended release(part/cryst) (Klor-Con M) 20 meq PO BID 03/24/25 valsartan 320 mg tablet (Diovan) 320 mg PO DAILY 03/24/25 acetaminophen 500 mg tablet 1,000 mg (2 x 500 mg) PO Q8 #0 tabs 03/27/25 aluminum-mag hydroxide-simethicone 400 mg-400 mg-40 mg/5 mL oral susp (Mag-Al Plus Extra Strength) 30 ml PO Q6H PRN PRN Gastric Burning #0 mL 03/27/25 melatonin 3 mg tablet 3 mg PO QHS PRN PRN Insomnia #0 tabs 03/27/25 nut.tx.comp. immune systm,reg 0.08 gram-1.4 kcal/mL oral liquid (Ensure Surgery) 237 ml PO TIDCM #0 mL 03/27/25 oxycodone 5 mg tablet 5 mg PO Q4H PRN PRN Pain Score 4-10 1 day #2 tabs 03/27/25
--- NOTE | 2025-03-27 10:34 | CASEMGMT ---
Precert has been received for [facility] and pt is medically ready for dc. Tubed trf to ext care, signed med list with rx to [facility]. Signed med list and rx copies placed in chart. CE PATTERSON into pt room, pt is aware that precert has been received and she will transfer to TCU today. She would like her dtr called to be made aware. TC to pt dtr, Natalie, she is aware pt will be dc'd to TCU. She denies any further questions.
[2025-03-27 10:45] VITALS: BP 116/54; PULSE 76; RESP 18; TEMP 36.6; O2SAT 95
[2025-03-27 12:03] LABS: Potassium 5.2 mmol/L (3.3-5.1)
[2025-03-27] MEDS: 0.9% Saline Lock 10 ML Syringe IV (12:36)
== END 2025-03-27 12:47 | disposition skilled nursing facility (03) | DRG 522 ==
PROVIDERS: Specialist; Admitting Provider Family Medicine; PCP Family Medicine; Visit Provider Internal Medicine
PROC: 0SRS019 Replacement of Left Hip Joint, Femoral Surface with Metal Synthetic Substitute, Cemented, Open Approach (ICD-10-PCS; CPT 27125; principal; 2025-03-25 08:00)
DX: S72.032A Displaced midcervical fracture of left femur, initial encounter for closed fracture (principal); I50.32 Chronic diastolic (congestive) heart failure; I13.0 Hypertensive heart and chronic kidney disease with heart failure and stage 1 through stage 4 chronic kidney disease, or unspecified chronic kidney disease; E87.1 Hypo-osmolality and hyponatremia; D63.1 Anemia in chronic kidney disease; N18.31 Chronic kidney disease, stage 3a; J44.9 Chronic obstructive pulmonary disease, unspecified; I48.0 Paroxysmal atrial fibrillation; E78.5 Hyperlipidemia, unspecified; E87.5 Hyperkalemia; W18.39XA Other fall on same level, initial encounter; Z79.01 Long term (current) use of anticoagulants; Z79.51 Long term (current) use of inhaled steroids; Z79.899 Other long term (current) drug therapy; Z87.891 Personal history of nicotine dependence
CPT/HCPCS: 36415; 73502; 76000; 80048; 80053; 83735; 84100; 84132; 85025; 85610; 85730; 86850; 86900; 86901; 88304; 88311; 93005; 94640; 94668; 97162; 97166; 97530; 97535; 99406; C1776; A4216; J2405

== ENCOUNTER → 2025-04-02 | Outpatient (CLI) | payer MEDICARE, SELFPAY ==
--- NOTE | 2025-04-02 12:00 | CT_ITS ---
PROCEDURE: ABDOMEN/PELVIS WITH CONTRAST 04/02/2025 REASON FOR EXAM: PERIUMBILICAL PAIN, NAUSEA WITH VOMITING TECHNIQUE: Procedure Code: [id number] Modality: CT Procedure: ABDOMEN/PELVIS WITH CONTRAST Contiguous axial scans of mm slice thicknesses. Sagittal and coronal reconstruction images were obtained. One or more dose reduction techniques were used (e.g., automated exposure control, adjustment of mA and/or kv according to patient size, use of iterative reconstruction technique). CONTRAST: Isovue-300 VOLUME: 97 mL RADIATION DOSE SUMMARY: CTDlvol: 24.55 mGy DLP: 729.81 mGycm COMPARISON: No relevant prior FINDINGS: Lung bases: Right lower lobe atelectasis, axial image 6. Irregular shaped noncalcified nodule in the left lower lobe, axial image 4, sagittal image 140 measuring 1.2 x 0.6 x 0.9 cm. Old healed granulomatous changes in the right hilum. Liver: Normal-size and attenuation. Multiple hypodense lesions scattered throughout the liver, largest in the left hepatic lobe measuring 1.9 x 1.4 cm, axial image 18. Gallbladder: Gallbladder surgically absent. Spleen: Multiple hypodense lesions are scattered throughout the spleen. Pancreas: No masses or ductal dilatation. Adrenals: No nodules are gland thickening. Kidneys: Bilateral kidneys excrete contrast material symmetrically. Small right kidney when compared to the left. The right kidney measures 5.9 cm from superior to inferior pole while the left kidney measures 9.9 cm, superior to inferior pole. Bladder: Unremarkable. Reproductive Organs: Unremarkable. Bowel: Marked wall thickening involving the rectosigmoid colon, thickened wall measuring at least 1.4 cm on axial image 91, coronal image 82. Marked irregular narrowing of the colon is demonstrated. Irregular mucosal thickening is also seen primarily on the left measuring 0.8 cm in thickness, axial image 87, coronal image 90. Appendix: Unremarkable. Lymph nodes: No suspicious lymphadenopathy. Vasculature: Unremarkable. Peritoneum / Retroperitoneum: No masses, free air, or free fluid. Anterior abdominal wall: Unremarkable. Bones: Levocurvature of the lumbar spine. Multilevel spondylosis and degenerative disc disease. Compression abnormality of T10 and T12. Left total hip arthroplasty. CT/Abdomen/Pelvis WITH Contrast IMPRESSION: 1. Right lower lobe atelectasis. 2. Noncalcified left lower lobe irregular shaped nodule. Can not exclude neop lastic process. Consider CT chest for further evaluation. 3. Multiple hepatic cysts. 4. Multiple splenic cysts. 5. Small right kidney. 6. Marked thickening of the mucosal and wall of the rectosigmoid colon with: N arrowing concerning for carcinoma. Consider sigmoidoscopy for further evaluation. 7. Compression fractures of the T10 and T12 vertebra, most likely remote. 8. Other nonacute findings detailed above. Reading Location: [place] [id number]
== END | disposition home or self-care (01) ==
PROVIDERS: Referring Provider Family Medicine Geriatric Medicine; Visit Provider Family Medicine Geriatric Medicine
DX: R10.33 Periumbilical pain (principal); R11.2 Nausea with vomiting, unspecified
CPT/HCPCS: 74177; Q9967; A4216

== ENCOUNTER → 2025-04-03 | Outpatient (CLI) | payer MEDICARE, SELFPAY ==
--- NOTE | 2025-04-03 12:26 | CT_ITS ---
PROCEDURE: CHEST WITHOUT CONTRAST 04/03/2025 REASON FOR EXAM: SOLITARY PULMONARY NODULE TECHNIQUE: Chest CT without contrast. Coronal and Sagittal reconstruction series were provided. One or more dose reduction techniques were used (e.g., Automated exposure control, adjustment of the mA and/or kV according to patient size, use of iterative reconstruction technique RADIATION DOSE SUMMARY: CTDlvol: 12.73 mGy DLP: 454.73 mGycm COMPARISON: Chest x-ray 04/02/2025. FINDINGS: Hardware: None. Lymph nodes: No lymphadenopathy. Heart and Vasculature: Mild cardiomegaly. Coronary Artery Calcifications: Atherosclerotic calcifications. Lungs and Airways: Centrilobular pulmonary emphysema. A 6 mm subpleural nodule in the left lower lobe with focal calcification. Airspace opacity in the right lower lobe may represent atelectasis, pneumonia or lung cancer. Pleura: No pleural effusion or pneumothorax. Upper Abdomen: A 1.5 cm simple cyst in the right hepatic lobe. Bones: No acute bony elements. CT/Chest without Contrast IMPRESSION: Coronary artery calcification (CAC) is is present A 6 mm subpleural nodule in the left lower lobe with focal calcification. Airspace opacity in the right lower lobe may represent atelectasis, pneumonia o r lung cancer. Follow-up CT chest in 3 months is recommended after treatment. Reading Location: [facility]
--- OUTSIDE RECORDS SUMMARY | 2025-04-03 12:47 | XMS RPT_ITS | CCD ---
Author Organization [facility] Inform ion [facility] Care Team Providers Care X Ray Operator Name Role Phone EMILIANO LEAL DO Primary Care Physician [phone] Candy PT, Daniella Unavailable Unavailable KEILY AMADO [...] Unavailab EMILIANO Tracey DO Primary Care Unavailable MEILIANO LEAL DO Attending Unavailable HIEN TERRELL, DR [...] AGACNP, RHINA M Admitting Unavailab megan DIEHL LEATHER PRODUCTION WORKER-ALTERATIONS TAILOR, ASIM Consulting Unavailab megan RODRIGUEZ DO, DR CAAL Attending Unavailable KAPPFEI LEATHER PRODUCTION WORKER-ALTERATIONS TAILOR, DANIELLA M Admitting Unavaila ble ELVIS DO, EMILIANO Primary Care Unavailable DONATO NAVARRETE DO Primary Care Unavailable DONAOT NAVARRETE DO Attending Unavailable ELVIS DO, EMILIANO Primary Care Unavailable RANDEE LEATHER PRODUCTION WORKER-ALTERATIONS TAILOR, ANASTASIYA Tobias Attending Unavail hemant GALDAMEZ MD, JESSIE Consulting Unavailable ADAMARIS PANCHAL, HARRY Attending Unavailable ADAMARIS PANCHAL, HARRY Admitting Unavailable ELVIS DO, EMILIANO Primary Care Unavailable ELVIS DO, EMILIANO Primary Care Unavailable LAUREN PANCHAL, DR JHA Admitting Unavailable LAUREN PANCHAL, DR JHA Attending Unavailable ELVIS TERRELL, EMILIANO Primary Care Unavailable ADAMARIS PACNHAL, HARRY Attending Unavailable ELVIS TERRELL, EMILIANO Primary [...] sources) Cyproheptadine; Translations: [cyproheptadine] Drug Allergy Numbness [facility] (20 sources) Alendronate; Translations: [alendronate] Drug Allergy 2 Muscle pain (finding) [facility] (9 sources) amLODIPine; Translations: [amlodipine] Drug Allergy 4 Edema (finding) [facility] (7 sources) dofetilide; Translations: [dofetilide] Drug Allergy Irregular heart beat (finding) [facility] Medications Current Medications Medication Drug Class(es) Dates [...] qDay, # 90 tab(s), 3 Refill(s), Pharmacy: [facility], 160, cm, 06/13/24 13:57:00 EST, Height, kg, 06/13/24 13:57:00 EST, Dosing Weight Start Date: 06/13/24 Status: Ordered Quantity: 90.0 Unit: tab(s) Repeat number: 4 Start: 05-26-2024 amiodarone 200 mg oral tablet Dose : 200 mg = 1 tab(s), Oral, qDay, Take with food., # 90 tab(s), 0 Refill(s), Pharmacy: [facility], 160, cm, 05/13/24 16:44:00 EST, Height, kg, 05/13/24 16:44:00 EST, Dosing Weight Start Date: 05/26/24 Status: Ordered Quantity: 90.0 Unit: tab(s) Repeat number: 1 Start: 05-26-2024 amiodarone 200 mg oral tablet Dose : 200 mg = 1 tab(s), Oral, qDay, Take with food., # 90 tab(s), 0 Refill(s), Pharmacy: [facility], 160, cm, 05/13/24 16:44:00 EST, Height, kg, 05/13/24 16:44:00 EST, Dosing Weight Start Date: 05/26/24 Status: Ordered Quantity: 90.0 Unit: tab(s) Repeat number: 1 Start: 05-18-2024 End: 05-25-2024 amiodarone 200 mg oral table t Dose : 400 mg = 2 tab(s), Oral, BIDM, # 28 tab(s), 0 Refill(s), Pharmacy: [facility], 160, cm, 05/13/24 16:44:00 EST, Height, kg, 05/13/24 16:44:00 EST, Dosing Weight Start Date: 05/18/24 Stop Date: 05/25/24 Status: Ordered Quantity: 28.0 Unit: tab(s) Repeat number: 1 amLODIPine 5 mg oral tablet (12 sources) Dihydropyridine Calcium Channel Vadim Start: 07-01-2024 amLODIPine 5 mg oral tablet Dose : 5 mg = 1 tab(s), Oral, qDay, # 90 tab(s), 3 Refill(s), [id number], 167, cm, 06/28/24 5:22:00 EDT, Height, kg, 06/28/24 5:22:00 EDT, Dosing Weight Start Date: 07/01/24 Status: Ordered Quantity: 90.0 Unit: tab(s) Repeat number: 4 Start: 01-06-2022 amLODIPine 10 mg oral tablet Dose : 10 mg = 1 tab(s), Oral, Daily, # 90 tab(s), 3 Refill(s), Pharmacy: [facility] #[id number], 159, cm, 10/05/21 9:50:00 EDT, Height, kg, 10/05/21 9:50:00 EDT, Dosing Weight Start Date: 01/06/22 Status: Ordered Start: 10-05-2021 amLODIPine 10 mg oral tablet Dose : 10 mg = 1 tab(s), Oral, Daily, # 90 tab(s), 3 Refill(s), Pharmacy: [facility] 159, cm, 10/05/21 9:50:00 EDT, Height, kg, 10/05/21 9:50:00 EDT, Dosing Weight Start Date: 10/05/21 Status: Ordered Start: 10-06-2020 amLODIPine 10 mg oral tablet Dose : 10 mg = 1 tab(s), Oral, Daily, # 90 tab(s), 3 Refill(s), Pharmacy: [facility] 160, cm, 10/06/20 8:46:00 EDT, Height, kg, 10/06/20 8:46:00 EDT, Dosing Weight Start Date: 10/06/20 Status: Ordered apixaban 5 mg oral tablet (16 sources) Factor Xa Inhibitor Start: 10-05-2024 Eliquis 5 mg oral tablet Dose : 5 mg = 1 tab(s), Oral, BID, # 180 tab(s), 3 Refill(s), Pharmacy: [facility], 157.5, cm, 09/19/24 14:48:00 EDT, Height, 69.6, kg, 09/19/24 14:48:00 EDT, Dosing Weight Start Date: 10/05/24 Status: Ordered Medication Dispense Status: Completed Quantity: 180.0 Unit: tab(s) Total Allowed Fills: 4 Fills Dispensed: 0 Start: 08-29-2024 Eliquis 5 mg o ral tablet Dose : 5 mg = 1 tab(s), Oral, BID, # 180 tab(s), 3 Refill(s), Pharmacy: [facility], 157.5, cm, 08/27/24 18:22:00 EDT, Height, 67.9, kg, 08/27/24 18:22:00 EDT, Dosing Weight Start Date: 08/29/24 Status: Ordered Quantity: 180.0 Unit: tab(s) Repeat number: 4 Start: 07-26-2024 Eliquis 5 mg o ral tablet Dose : 5 mg = 1 tab(s), Oral, BID, # 180 tab(s), 3 Refill(s), [facility], 160, cm, 07/19/24 15:08:00 EDT, Height, 65.4, kg, 07/19/24 15:02:00 EDT, Dosing Weight Start Date: 07/26/24 Status: Ordered Quantity: 180.0 Unit: tab(s) Repeat number: 4 Start: 06-19-2024 Eliquis 5 mg o ral tablet Dose : 5 mg = 1 tab(s), Oral, BID, # 180 tab(s), 3 Refill(s), Pharmacy: [facility], 160, cm, 06/19/24 6:42:00 EDT, Height, 61.3, kg, 06/19/24 6:42:00 EDT, Dosing Weight Start Date: 06/19/24 Status: Ordered Quantity: 180.0 Unit: tab(s) Repeat number: 4 Start: 05-28-2024 Eliquis 2.5 mg oral tablet Dose : 2.5 mg = 1 tab(s), Oral, BID, # 60 tab(s), 0 Refill(s), Pharmacy: [facility] #[id number], 160, cm, 05/23/24 14:01:00 EST, Height, 63.8, [...] BID, # 180 tab(s), 3 Refill(s), Pharmacy: [facility], 160, cm, 05/13/24 16:44:00 EST, Height, 65.9, kg, 05/13/24 16:44:00 EST, Dosing Weight Start Date: 05/18/24 Status: Ordered Quantity: 180.0 Unit: tab(s) Repeat number: 4 atorvastatin 40 mg oral tablet (1 source) HMG-CoA Reductase Inhibitor Start: 02-19-2025 End: 02-14-2026 atorvastatin 40 mg oral tablet Dose : 40 mg = 1 tab(s), Oral, qDay, # 90 tab(s), 3 Refill(s), Pharmacy: [facility], 157.5, cm, 02/19/25 6:33:00 EST, Height, kg, [...] 0 Refill(s), 01/06/25 3:57:00 PM EDT, Pharmacy: [facility], 177.8, cm, 01/01/25 9:42:00 EDT, Height, 73.8, [...] qHS, # 30 tab(s), 0 Refill(s), Pharmacy: [facility], HTN (hypertension), 158, cm, 04/19/24 14:50:00 EST, [...] inhalations/day, # 1 EA, 2 Refill(s), Pharmacy: [facility], 157.8, cm, 01/16/25 15:23:00 EDT, [...] use, # 1 EA, 2 Refill(s), Pharmacy: [facility], COPD - Chronic obstructive pulmonary [...] # 180 tab(s), 3 Refill(s), Pharmacy: [facility] #[id number], 167, cm, 06/28/24 5:22:00 EDT, Height, kg, 06/28/24 5:22:00 EDT, Dosing Weight Start Date: 07/01/24 Status: Ordered Medication Dispense Status: Completed Quantity: 180.0 Unit: tab(s) Total Allowed Fills: 4 Fills Dispensed: 0 Start: 05-28-2024 End: 06-27-2024 bumetanide 1 mg oral tablet Dose : 1 mg = 1 tab(s), Oral, BID, # 180 tab(s), 3 Refill(s), Pharmacy: [facility], 160, cm, 06/13/24 13:57:00 EST, Height, kg, [...] qDay, # 90 cap(s), 3 Refill(s), Pharmacy: [facility], 160, cm, 06/13/24 13:57:00 EST, Height, kg, 06/13/24 13:57:00 EST, Dosing Weight Start Date: 06/13/24 Status: Ordered Quantity: 90.0 Unit: cap(s) Repeat number: 4 Start: 05-28-2024 Cardizem CD 12 0 mg/24 hours oral capsule, extended release Dose : 120 mg = 1 cap(s), Oral, qDay, # 30 cap(s), 0 Refill(s), Pharmacy: [facility], 160, cm, 05/23/24 14:01:00 EST, Height, kg, [...] qAM, # 90 tab(s), 3 Refill(s), Pharmacy: [facility], 157.5, cm, 12/20/24 15:03:00 EDT, Height, kg, 12/20/24 15:03:00 EDT, Dosing Weight Start Date: 01/01/25 Status: Ordered Medication Dispense Status: Completed Quantity: 90.0 Unit: tab(s) Total Allowed Fills: 4 Fills Dispensed: 0 Start: 06-14-2024 Jardiance 10 m g oral tablet Dose : 10 mg = 1 tab(s), Oral, qAM, # 90 tab(s), 3 Refill(s), Pharmacy: [facility], 160, cm, 06/13/24 13:57:00 EST, Height, kg, 06/13/24 13:57:00 EST, Dosing Weight Start Date: 06/14/24 Status: Ordered Quantity: 90.0 Unit: tab(s) Repeat number: 4 Start: 05-28-2024 Jardiance 10 m g oral tablet Dose : 10 mg = 1 tab(s), Oral, qAM, # 30 tab(s), 0 Refill(s), Pharmacy: [facility], 160, cm, 05/23/24 14:01:00 EST, Height, kg, [...] qDay, # 30 tab(s), 0 Refill(s), Pharmacy: [facility], 160, cm, 05/13/24 16:44:00 EST, Height, kg, 05/13/24 16:44:00 EST, Dosing Weight Start Date: 05/18/24 Status: Ordered Quantity: 30.0 Unit: tab(s) Repeat number: 1 gabapentin 600 mg oral tablet (2 sources) Anti-epileptic Agent Start: 04-06-2021 End: 07-05-2021 gabapentin 600 mg oral tablet Dose : 600 mg = 1 tab(s), Oral, BID, # 180 tab(s), 0 Refill(s), Pharmacy: [facility], [place], 159, cm, 04/06/21 7:47:00 EST, Height, 63, kg, 04/06/21 7:47:00 EST, Dosing Weight Start Date: 04/06/21 Stop Date: 07/05/21 Status: Ordered Start: 10-06-2020 End: 04-04-2021 gabapentin 600 mg oral table t Dose : 600 mg = 1 tab(s), Oral, BID, # 180 tab(s), 1 Refill(s), Pharmacy: [facility], [place], 160, cm, 10/06/20 8:46:00 EDT, Height, 65.6, kg, 10/06/20 8:46:00 EDT, Dosing Weight Start Date: 10/06/20 Stop Date: 04/04/21 Status: Ordered hydroCHLOROthiazide 12.5 mg oral tablet (1 source) Thiazide Diuretic Start: 04-13-2024 hydroCHLOROthiazide 12.5 mg oral tablet Dose : 12.5 mg = 1 tab(s), Oral, qDay, # 90 tab(s), 3 Refill(s), Pharmacy: [facility], HTN (hypertension), 158, cm, 02/23/24 10:19:00 EST, [...] food, # 60 tab(s), 1 Refill(s), Pharmacy: [facility], 157.5, cm, 01/31/25 10:22:00 EDT, Height, kg, 01/31/25 10:22:00 EDT, Dosing Weight Start Date: 02/18/25 Status: Ordered Medication Dispense Status: Completed Quantity: 60.0 Unit: tab(s) Total Allowed Fills: 2 Fills Dispensed: 0 Start: 06-19-2024 potassium chlo ride 20 mEq oral tablet, extended release Dose : 20 mEq = 1 tab(s), Oral, qDay, Take with food, # 30 tab(s), 3 Refill(s), Pharmacy: [facility], 160, cm, 06/19/24 6:42:00 EDT, Height, kg, 06/19/24 6:42:00 EDT, Dosing Weight Start Date: 06/19/24 Status: Ordered Quantity: 30.0 Unit: tab(s) Repeat number: 4 valsartan 320 mg oral tablet (13 sources) Angiotensin 2 Receptor Vadim Start: 01-31-2025 valsartan 320 mg ora l tablet Dose : 320 mg = 1 tab(s), Oral, Daily, # 100 tab(s), 1 Refill(s), Pharmacy: [facility], 157.5, cm, 01/31/25 10:22:00 EDT, Height, kg, 01/31/25 10:22:00 EDT, Dosing Weight Start Date: 01/31/25 Status: Ordered Medication Dispense Status: Completed Quantity: 100.0 Unit: tab(s) Total Allowed Fills: 2 Fills Dispensed: 0 Start: 07-23-2024 valsartan 160 mg oral tablet Dose : 160 mg = 1 tab(s), Oral, qDay, Replaces previous Rx for the valsartan 320 mg dose., # 90 tab(s), 1 Refill(s), Pharmacy: [facility], 160, cm, 07/19/24 15:08:00 EDT, Height, kg, 07/19/24 15:02:00 EDT, Dosing Weight Start Date: 07/23/24 Status: Ordered Medication Dispense Status: Completed Quantity: 90.0 Unit: tab(s) Total Allowed Fills: 2 Fills Dispensed: 0 Start: 02-23-2024 valsartan 320 mg oral tablet Dose : 320 mg = 1 tab(s), Oral, qDay, Replaces previous prescription for valsartan 160 mg tablets., # 90 tab(s), 3 Refill(s), Pharmacy: [facility], 158, cm, 02/23/24 10:19:00 EST, Height, kg, [...] BIDM, # 60 tab(s), 0 Refill(s), Pharmacy: [facility], 160, cm, 05/13/24 16:44:00 EST, Height, kg, [...] atrial fibrillation] Onset: 5 Unclassified (2 sources) alf (current) use of immunosuppressive biologic; Translations: [exterminator helper (current) use of immunosuppressive biologic] Onset: 5 [...] Onset: 05-18-2024 Episodic Other aftercare (2 sources) exterminator helper (current) use of anticoagulants; Translations: [exterminator helper (current) use of anticoagulants] Onset: 05-20-2024 Episodic Other aftercare (1 source) alf (current) use of inhaled steroids; Translations: [alf (current) use of inhaled steroids] Onset: 07-27-2024 Episodic Other aftercare (1 source) alf (current) use of oral hypoglycemic drugs; Translations: [exterminator helper (current) use of oral hypoglycemic drugs] Onset: [...] Estimated Glomerular Filtration Rate 63 ml/min/1.73sqm Normal [facility] Comment on above: Result [...] Performed By: #### G , BMP #### [address] [address] [facility] 02-19-2025 BUN/Creatinine Ratio 18.7 ratio Normal 10.0-22.0 [facility] Comment on above: Performed By: #### G , BMP #### [address] [address] Calcium [Mass/Vol] 9.3 mg/dL Normal 8.7-10.4 [facility] Comment on above: Performed By: #### G FR, BMP #### [address] [address] Chloride [Moles/Vol] 104 mmol/L Normal 98-110 [facility] Comment on above: Performed By: #### Ed WAGNER, BMP #### [address] [address] CO2 [Moles/Vol] 28 mmol/L Normal 22-32 [facility] Comment on above: Performed By: #### Ed WAGNER, BMP #### [place] [id number] Creatinine [Mass/Vol] 0.91 mg/dL Normal 0.50-1.20 [facility] Comment on above: Result Comment: Test ing performed on homedeco2u analyzer using enzymatic creatinine methodology. Performed By: #### Ed WAGNER, BMP #### [place] [address] Electrolyte Balance 10.0 mEq/L Normal 4.0-15.0 [facility] Comment on above: Performed By: #### Ed WAGNER, BMP #### [place] [id number] Glucose [Mass/Vol] 94 mg/dL Normal 82-115 [facility] Comment on above: Performed By: #### Ed WAGNER, BMP #### [place] [id number] Potassium [Moles/Vol] 3.7 mmol/L Normal 3.5-5.0 [facility] Comment on above: Performed By: #### Ed WAGNER, BMP #### [place] [id number] Sodium [Moles/Vol] 142 mmol/L Normal 136-145 [facility] Comment on above: Performed By: #### Ed WAGNER, BMP #### [address] [address] Urea nitrogen [Mass/Vol] 17.0 mg/dL Normal 8.0-22.0 [facility] Comment on above: Performed By: #### Ed WAGNER, BMP #### [address] [address] LABORATORYOrdered By: SYSTEM SYSTEM on 02-19-2025 Calcium [Mass/Vol] 9.3 mg/dL Normal 8.7 - 10. 4 mg/dL ADM SS Chloride [Moles/Vol] 104 mmol/L Normal 98 - 11 0 mEq/L ADM SS CO2 [Moles/Vol] 28 mmol/L Normal 22 - 32 mEq/L ADM SS Creatinine [Mass/Vol] 0.91 mg/dL Normal 0.50 - 1.20 mg/dL AH ADM SS Comment on above: Interpretive Data: T esting performed on homedeco2u analyzer using enzymatic creatinine methodology. Electrolyte Balance [...] Basophil, Absolute 0.1 10 3/mcL Normal 0.0-0.3 [facility] Comment on above: Performed By: #### M DW, MG, GFR, BMP, CBC, ANEU, TROPHS, ADIFF #### [address] [address] Basophils/100 WBC (Bld) 1.1 % Normal 0.0-2.5 [facility] Comment on above: Performed By: #### M DW, MG, GFR, BMP, CBC, ANEU, TROPHS, ADIFF #### [address] [address] Eosinophil, Absolute 0.3 10 3/mcL Normal 0.0-0.7 [facility] Comment on above: Performed By: #### M DW, MG, GFR, BMP, CBC, ANEU, TROPHS, ADIFF #### [address] [address] Eosinophils/100 WBC (Bld) 3.5 % Normal 0.0-6.0 [facility] Comment on above: Performed By: #### M DW, MG, GFR, BMP, CBC, ANEU, TROPHS, ADIFF #### [address] [address] Lymphocyte, Absolute 1.7 10 3/mcL Normal 0.9-4.3 [facility] Comment on above: Performed By: #### M DW, MG, GFR, BMP, CBC, ANEU, TROPHS, ADIFF #### [address] [address] Lymphocytes/100 WBC (Bld) 17.9 % Low 20.0-40.0 [facility] Comment on above: Performed By: #### M DW, MG, GFR, BMP, CBC, ANEU, TROPHS, ADIFF #### [address] [address] Monocyte, Absolute 0.7 10 3/mcL Normal 0.1-1.4 [facility] Comment on above: Performed By: #### M DW, MG, GFR, BMP, CBC, ANEU, TROPHS, ADIFF #### [address] [address] Monocytes/100 WBC (Bld) 7.8 % Normal 2.0-13.0 [facility] Comment on above: Performed By: #### M DW, MG, GFR, BMP, CBC, ANEU, TROPHS, ADIFF #### [address] [address] Neutrophils/100 WBC (Bld) 69.7 % Normal 50.0-75.0 [facility] Comment on above: Performed By: #### M DW, MG, GFR, BMP, CBC, ANEU, TROPHS, ADIFF #### [address] [address] .GFRon 02-15-2025 Estimated Glomerular Filtration Rate 51 ml/min/1.73sqm Normal [facility] Comment on above: Result Comment: Stages [...] GFR, BMP, CBC, ANEU, TROPHS, ADIFF #### [address] [address] .NEUABSon 02-15-2025 Neutrophil, Absolute 6.5 10 3/mcL Normal 2.3-8.1 [facility] Comment on above: Performed By: #### M DW, MG, GFR, BMP, CBC, ANEU, TROPHS, ADIFF #### [address] [address] BMPon 02-15-2025 BUN/Creatinine Ratio 16 ratio Normal 7-27 [facility] Comment on above: Performed By: #### M DW, MG, GFR, BMP, CBC, ANEU, TROPHS, ADIFF #### [address] [address] Calcium [Mass/Vol] 9.0 mg/dL Normal 8.4-10.2 [facility] Comment on above: Performed By: #### M DW, MG, GFR, BMP, CBC, ANEU, TROPHS, ADIFF #### [address] [address] Chloride [Moles/Vol] 100 mmol/L Normal 98-107 [facility] Comment on above: Performed By: #### M DW, MG, GFR, BMP, CBC, ANEU, TROPHS, ADIFF #### [address] [address] CO2 [Moles/Vol] 33 mmol/L High 23-31 [facility] Comment on above: Performed By: #### M DW, MG, GFR, BMP, CBC, ANEU, TROPHS, ADIFF #### [place] [id number] Creatinine [Mass/Vol] 1.08 mg/dL High 0.51-0.95 [facility] Comment on above: Performed By: #### M DW, MG, GFR, BMP, CBC, ANEU, TROPHS, ADIFF #### [address] [address] Electrolyte Balance 8.0 mEq/L Normal 4.0-15.0 [facility] Comment on above: Performed By: #### M DW, MG, GFR, BMP, CBC, ANEU, TROPHS, ADIFF #### [address] [address] Glucose [Mass/Vol] 94 mg/dL Normal 83-110 [facility] Comment on above: Performed By: #### M DW, MG, GFR, BMP, CBC, ANEU, TROPHS, ADIFF #### [address] [address] Potassium [Moles/Vol] 2.9 mmol/L Low 3.5-5.1 [facility] Comment on above: Performed By: #### M DW, MG, GFR, BMP, CBC, ANEU, TROPHS, ADIFF #### [address] [address] Sodium [Moles/Vol] 141 mmol/L Normal 136-145 [facility] Comment on above: Performed By: #### M DW, MG, GFR, BMP, CBC, ANEU, TROPHS, ADIFF #### [address] [address] Urea nitrogen [Mass/Vol] 17 mg/dL Normal 7-18 [facility] Comment on above: Performed By: #### M DW, MG, GFR, BMP, CBC, ANEU, TROPHS, ADIFF #### [place] [id number] CBCon 02-15-2025 Erythrocyte distribution width (RBC) [Ratio] 14.0 % Normal 11.5-15.5 [facility] Comment on above: Performed By: #### M DW, MG, GFR, BMP, CBC, ANEU, TROPHS, ADIFF #### [address] [address] Hematocrit (Bld) [Volume fraction] 40.8 % Normal 34.0-46.0 [facility] Comment on above: Performed By: #### M DW, MG, GFR, BMP, CBC, ANEU, TROPHS, ADIFF #### [address] [address] Hgb 13.8 G/dL Normal 12.0-16.0 [facility] Comment on above: Performed By: #### M DW, MG, GFR, BMP, CBC, ANEU, TROPHS, ADIFF #### [address] [address] MCH (RBC) [Entitic mass] 28.3 pg Normal 27.0-33.0 [facility] Comment on above: Performed By: #### M DW, MG, GFR, BMP, CBC, ANEU, TROPHS, ADIFF #### [address] [address] MCHC 33.8 G/dL Normal 32.0-36.0 [facility] Comment on above: Performed By: #### M DW, MG, GFR, BMP, CBC, ANEU, TROPHS, ADIFF #### [address] [address] MCV (RBC) [Entitic vol] 83.8 fL Normal 80.0-99.0 [facility] Comment on above: Performed By: #### M DW, MG, GFR, BMP, CBC, ANEU, TROPHS, ADIFF #### [address] [address] Platelet 299 10 3/mcL Normal 150-450 [facility] Comment on above: Performed By: #### M DW, MG, GFR, BMP, CBC, ANEU, TROPHS, ADIFF #### [address] [address] Platelet mean volume (Bld) [Entitic vol] 7.9 fL Normal 6.6-10.5 [facility] Comment on above: Performed By: #### M DW, MG, GFR, BMP, CBC, ANEU, TROPHS, ADIFF #### [address] [address] RBC 4.87 10 6/mcL Normal 4.10-5.30 [facility] Comment on above: Performed By: #### M DW, MG, GFR, BMP, CBC, ANEU, TROPHS, ADIFF #### [address] [address] WBC 9.3 10 3/mcL Normal 4.5-10.8 [facility] Comment on above: Performed By: #### M DW, MG, GFR, BMP, CBC, ANEU, TROPHS, ADIFF #### [address] [address] LABORATORYOrdered By: SYSTEM SYSTEM on 02-15-2025 Basophils [...] Comment on above: Interpretive Data: Jatinder samano [employer] (CHEST, 1991, 102:[id number]) [...] Coag (PPP) [Time] 14.1 s Normal 9.0-14.4 [facility] Comment on above: Performed By: #### M DW, MG, GFR, BMP, CBC, ANEU, TROPHS, ADIFF #### [place] [id number] [place], [place] [address] [employer] Ratio 1.2 Normal [facility] Comment on above: Result Comment: [employer] (CHEST, 1992, [id number]) recommended therapeutic range for oral anticoagulant therapy is: LOW RISK: Prophylaxis of venous thrombosis INR: 2.0-3.0 Treatment of pulmonary embolism 2.0-3.0 Prevention of systemic embolism 2.0-3.0 HIGH RISK: Mechanical prosthetic valves 2.5-3.5 Performed By: #### M DW, MG, GFR, BMP, CBC, ANEU, TROPHS, ADIFF #### [address] [address] .GFRon 01-11-2025 Estimated Glomerular Filtration Rate 44 ml/min/1.73sqm Normal [facility] Comment on above: Result Comment: Stages [...] GFR, BMP, CBC, ANEU, TROPHS, ADIFF #### [place] [id number] [place], [place] [address] BMPon 01-11-2025 BUN/Creatinine Ratio 21 ratio Normal 7-27 [facility] Comment on above: Performed By: #### M DW, MG, GFR, BMP, CBC, ANEU, TROPHS, ADIFF #### [place] [address] Calcium [Mass/Vol] 9.3 mg/dL Normal 8.4-10.2 [facility] Comment on above: Performed By: #### M DW, MG, GFR, BMP, CBC, ANEU, TROPHS, ADIFF #### [place] [address] Chloride [Moles/Vol] 104 mmol/L Normal 98-107 [facility] Comment on above: Performed By: #### M DW, MG, GFR, BMP, CBC, ANEU, TROPHS, ADIFF #### [place] [address] CO2 [Moles/Vol] 34 mmol/L High 23-31 [facility] Comment on above: Performed By: #### M DW, MG, GFR, BMP, CBC, ANEU, TROPHS, ADIFF #### [place] [address] Creatinine [Mass/Vol] 1.23 mg/dL High 0.51-0.95 [facility] Comment on above: Performed By: #### M DW, MG, GFR, BMP, CBC, ANEU, TROPHS, ADIFF #### [place] [address] Electrolyte Balance 5.0 mEq/L Normal 4.0-15.0 [facility] Comment on above: Performed By: #### M DW, MG, GFR, BMP, CBC, ANEU, TROPHS, ADIFF #### [place] [address] Glucose [Mass/Vol] 91 mg/dL Normal 83-110 [facility] Comment on above: Performed By: #### M DW, MG, GFR, BMP, CBC, ANEU, TROPHS, ADIFF #### [place] [id number] [place], [place] [address] Potassium [Moles/Vol] 4.5 mmol/L Normal 3.5-5.1 [facility] Comment on above: Performed By: #### M DW, MG, GFR, BMP, CBC, ANEU, TROPHS, ADIFF #### [place] [id number] [place], [place] [address] Sodium [Moles/Vol] 143 mmol/L Normal 136-145 [facility] Comment on above: Performed By: #### M DW, MG, GFR, BMP, CBC, ANEU, TROPHS, ADIFF #### [place] [id number] [place], [place] [address] Urea nitrogen [Mass/Vol] 26 mg/dL High 7-18 [facility] Comment on above: Performed By: #### M DW, MG, GFR, BMP, CBC, ANEU, TROPHS, ADIFF #### [address] [address] LABORATORYOrdered By: SYSTEM SYSTEM on 01-11-2025 Calcium [...] 01-11-2025 Magnesium [Mass/Vol] 2.2 mg/dL Normal 1.8-2.4 [facility] Comment on above: Performed By: #### M DW, MG, GFR, BMP, CBC, ANEU, TROPHS, ADIFF #### [address] [address] .Auto Diffon 01-01-2025 Basophil, Absolute 0.1 10 3/mcL Normal 0.0-0.3 [facility] Comment on above: Performed By: #### A COLLIN, GFR, CMP, PBNP, CBC, TSH, ADIFF #### [address] [address] Basophils/100 WBC (Bld) 1.3 % Normal 0.0-2.5 [facility] Comment on above: Performed By: #### A COLLIN, GFR, CMP, PBNP, CBC, TSH, ADIFF #### [address] [address] Eosinophil, Absolute 0.3 10 3/mcL Normal 0.0-0.7 [facility] Comment on above: Performed By: #### A COLLIN, GFR, CMP, PBNP, CBC, TSH, ADIFF #### [address] [address] Eosinophils/100 WBC (Bld) 3.4 % Normal 0.0-6.0 [facility] Comment on above: Performed By: #### A COLLIN, GFR, CMP, PBNP, CBC, TSH, ADIFF #### [address] [address] Lymphocyte, Absolute 1.3 10 3/mcL Normal 0.9-4.3 [facility] Comment on above: Performed By: #### A COLLIN, GFR, CMP, PBNP, CBC, TSH, ADIFF #### [address] [address] Lymphocytes/100 WBC (Bld) 13.7 % Low 20.0-40.0 [facility] Comment on above: Performed By: #### A COLLIN, GFR, CMP, PBNP, CBC, TSH, ADIFF #### [address] [address] Monocyte, Absolute 1.0 10 3/mcL Normal 0.1-1.4 [facility] Comment on above: Performed By: #### A COLLIN, GFR, CMP, PBNP, CBC, TSH, ADIFF #### [address] [address] Monocytes/100 WBC (Bld) 11.1 % Normal 2.0-13.0 [facility] Comment on above: Performed By: #### A COLLIN, GFR, CMP, PBNP, CBC, TSH, ADIFF #### [address] [address] Neutrophils/100 WBC (Bld) 70.5 % Normal 50.0-75.0 [facility] Comment on above: Performed By: #### A COLLIN, GFR, CMP, PBNP, CBC, TSH, ADIFF #### [address] [address] .GFRon 01-01-2025 Estimated Glomerular Filtration Rate 43 ml/min/1.73sqm Normal [facility] Comment on above: Result Comment: Stages [...] GFR, BMP, CBC, ANEU, TROPHS, ADIFF #### [address] [address] .NEUABSon 01-01-2025 Neutrophil, Absolute 6.5 10 3/mcL Normal 2.3-8.1 [facility] Comment on above: Performed By: #### M DW, MG, GFR, BMP, CBC, ANEU, TROPHS, ADIFF #### [address] [address] CBCon 01-01-2025 Erythrocyte distribution width (RBC) [Ratio] 15.0 % Normal 11.5-15.5 [facility] Comment on above: Performed By: #### A COLLIN, GFR, CMP, PBNP, CBC, TSH, ADIFF #### [address] [address] Hematocrit (Bld) [Volume fraction] 43.3 % Normal 34.0-46.0 [facility] Comment on above: Performed By: #### A COLLIN, GFR, CMP, PBNP, CBC, TSH, ADIFF #### [address] [address] Hgb 14.3 G/dL Normal 12.0-16.0 [facility] Comment on above: Performed By: #### A COLLIN, GFR, CMP, PBNP, CBC, TSH, ADIFF #### [address] [address] MCH (RBC) [Entitic mass] 27.9 pg Normal 27.0-33.0 [facility] Comment on above: Performed By: #### A COLLIN, GFR, CMP, PBNP, CBC, TSH, ADIFF #### [address] [address] MCHC 33.0 G/dL Normal 32.0-36.0 [facility] Comment on above: Performed By: #### A COLLIN, GFR, CMP, PBNP, CBC, TSH, ADIFF #### [address] [address] MCV (RBC) [Entitic vol] 84.5 fL Normal 80.0-99.0 [facility] Comment on above: Performed By: #### A COLLIN, GFR, CMP, PBNP, CBC, TSH, ADIFF #### [address] [address] Platelet 293 10 3/mcL Normal 150-450 [facility] Comment on above: Performed By: #### A COLLIN, GFR, CMP, PBNP, CBC, TSH, ADIFF #### [address] [address] Platelet mean volume (Bld) [Entitic vol] 8.3 fL Normal 6.6-10.5 [facility] Comment on above: Performed By: #### A COLLIN, GFR, CMP, PBNP, CBC, TSH, ADIFF #### [address] [address] RBC 5.13 10 6/mcL Normal 4.10-5.30 [facility] Comment on above: Performed By: #### A COLLIN, GFR, CMP, PBNP, CBC, TSH, ADIFF #### [address] [address] WBC 9.2 10 3/mcL Normal 4.5-10.8 [facility] Comment on above: Performed By: #### A COLLIN, GFR, CMP, PBNP, CBC, TSH, ADIFF #### [place] [id number] CMPon 01-01-2025 Albumin Level 3.7 G/dL Normal 3.4-4.8 [facility] Comment on above: Performed By: #### M DW, MG, GFR, BMP, CBC, ANEU, TROPHS, ADIFF #### [address] [address] Albumin/Globulin [Mass ratio] 1.0 {ratio} Low 1.1-2.5 [facility] Comment on above: Performed By: #### M DW, MG, GFR, BMP, CBC, ANEU, TROPHS, ADIFF #### [address] [address] ALP [Catalytic activity/Vol] 96 U/L Normal 40-135 [facility] Comment on above: Performed By: #### M DW, MG, GFR, BMP, CBC, ANEU, TROPHS, ADIFF #### [address] [address] ALT [Catalytic activity/Vol] 21 U/L Normal 14-59 [facility] Comment on above: Performed By: #### M DW, MG, GFR, BMP, CBC, ANEU, TROPHS, ADIFF #### [address] [address] AST [Catalytic activity/Vol] 12 U/L Normal 10-40 [facility] Comment on above: Performed By: #### M DW, MG, GFR, BMP, CBC, ANEU, TROPHS, ADIFF #### [address] [address] Bili Total 0.3 mg/dL Normal 0.2-1.0 [facility] Comment on above: Result Comment: Use of this assay is not recommended for patients undergoing treatment with eltrombopag due to the potential for falsely elevated results. Performed By: #### M DW, MG, GFR, BMP, CBC, ANEU, TROPHS, ADIFF #### [address] [address] BUN/Creatinine Ratio 21 ratio Normal 7-27 [facility] Comment on above: Performed By: #### M DW, MG, GFR, BMP, CBC, ANEU, TROPHS, ADIFF #### [address] [address] Calcium [Mass/Vol] 9.3 mg/dL Normal 8.4-10.2 [facility] Comment on above: Performed By: #### M DW, MG, GFR, BMP, CBC, ANEU, TROPHS, ADIFF #### [place] [address] Chloride [Moles/Vol] 104 mmol/L Normal 98-107 [facility] Comment on above: Performed By: #### M DW, MG, GFR, BMP, CBC, ANEU, TROPHS, ADIFF #### [place] [address] CO2 [Moles/Vol] 32 mmol/L High 23-31 [facility] Comment on above: Performed By: #### M DW, MG, GFR, BMP, CBC, ANEU, TROPHS, ADIFF #### [place] [address] Creatinine [Mass/Vol] 1.26 mg/dL High 0.51-0.95 [facility] Comment on above: Performed By: #### M DW, MG, GFR, BMP, CBC, ANEU, TROPHS, ADIFF #### [place] [address] Electrolyte Balance 7.0 mEq/L Normal 4.0-15.0 [facility] Comment on above: Performed By: #### M DW, MG, GFR, BMP, CBC, ANEU, TROPHS, ADIFF #### [place] [address] Globulin 3.6 G/dL Normal 2.7-4.4 [facility] Comment on above: Performed By: #### M DW, MG, GFR, BMP, CBC, ANEU, TROPHS, ADIFF #### [place] [address] Glucose [Mass/Vol] 55 mg/dL Low 83-110 [facility] Comment on above: Performed By: #### M DW, MG, GFR, BMP, CBC, ANEU, TROPHS, ADIFF #### [address] [address] Potassium [Moles/Vol] 4.4 mmol/L Normal 3.5-5.1 [facility] Comment on above: Performed By: #### M DW, MG, GFR, BMP, CBC, ANEU, TROPHS, ADIFF #### [address] [address] Sodium [Moles/Vol] 143 mmol/L Normal 136-145 [facility] Comment on above: Performed By: #### M DW, MG, GFR, BMP, CBC, ANEU, TROPHS, ADIFF #### [address] [address] Total Protein 7.3 G/dL Normal 6.4-8.2 [facility] Comment on above: Performed By: #### M DW, MG, GFR, BMP, CBC, ANEU, TROPHS, ADIFF #### [address] [address] Urea nitrogen [Mass/Vol] 26 mg/dL High 7-18 [facility] Comment on above: Performed By: #### M DW, MG, GFR, BMP, CBC, ANEU, TROPHS, ADIFF #### [address] [address] LABORATORYOrdered By: Óscar Srivastava on 01-01-2025 Color [...] B (Bld) [Mass/Vol] 1625 pg/mL High 0-450 [facility] Comment on above: Result Comment: NT-p roBNP results of less than 300 pg/mL effectively rules out acute congestive heart failure with 99% negative predictive value. Performed By: #### M DW, MG, GFR, BMP, CBC, ANEU, TROPHS, ADIFF #### [address] [address] TSHon 01-01-2025 TSH Qn 1.75 m[IU]/L Normal 0.36-3.74 [facility] Comment on above: Performed By: #### M DW, MG, GFR, BMP, CBC, ANEU, TROPHS, ADIFF #### [address] [address] UAon 01-01-2025 Color (U) Yellow Normal Yellow [facility] Comment on above: Performed By: #### M DW, MG, GFR, BMP, CBC, ANEU, TROPHS, ADIFF #### [address] [address] Glucose (U) [Mass/Vol] mg/dL Abnormal Negative [facility] Comment on above: Performed By: #### M DW, MG, GFR, BMP, CBC, ANEU, TROPHS, ADIFF #### [address] [address] Ketones Ql (U) Negative Normal Negative [facility] Comment on above: Performed By: #### M DW, MG, GFR, BMP, CBC, ANEU, TROPHS, ADIFF #### [address] [address] UA Appear Clear Normal Clear [facility] Comment on above: Performed By: #### M DW, MG, GFR, BMP, CBC, ANEU, TROPHS, ADIFF #### [address] [address] UA Blood Negative Normal Negative [facility] Comment on above: Performed By: #### M DW, MG, GFR, BMP, CBC, ANEU, TROPHS, ADIFF #### [address] [address] UA Leuk Est Negative Normal Negative [facility] Comment on above: Performed By: #### M DW, MG, GFR, BMP, CBC, ANEU, TROPHS, ADIFF #### [place] [address] UA Nitrite Negative Normal Negative [facility] Comment on above: Performed By: #### M DW, MG, GFR, BMP, CBC, ANEU, TROPHS, ADIFF #### [address] [address] UA pH 6.0 Normal 5.0 - 8.0 [facility] Comment on above: Performed By: #### M DW, MG, GFR, BMP, CBC, ANEU, TROPHS, ADIFF #### [address] [address] UA Protein Negative Normal Negative [facility] Comment on above: Performed By: #### M DW, MG, GFR, BMP, CBC, ANEU, TROPHS, ADIFF #### [address] [address] UA Spec Grav 1.015 Normal 1.015-1.025 [facility] Comment on above: Performed By: #### M DW, MG, GFR, BMP, CBC, ANEU, TROPHS, ADIFF #### [place] [address] UA Specimen Type Clean Catch Normal [facility] Comment on above: Performed By: #### M DW, MG, GFR, BMP, CBC, ANEU, TROPHS, ADIFF #### [place] [address] UA Urobilinogen 0.2 E.U./dL Normal 0.2-1.0 [facility] Comment on above: Performed By: #### M DW, MG, GFR, BMP, CBC, ANEU, TROPHS, ADIFF #### [address] [address] Urobilinogen (U) [Mass/Vol] Negative Normal Negative [facility] Comment on above: Performed By: #### M DW, MG, GFR, BMP, CBC, ANEU, TROPHS, ADIFF #### [place] [address] XR CHEST 2 VIEWSon 5 XR CHEST [...] 01/01/2025 3:15:11 PM Ordering Provider: ASIM DIEHL [facility] .GFRon 09-12-2024 Estimated Glomerular Filtration Rate 49 ml/min/1.73sqm [facility] Comment on above: Result Comment: Stages of [...] GFR, CMP, PBNP, CBC, TSH, ADIFF #### [facility] [address] [place], [place] [address] BMPon 09-12-2024 BUN/Creatinine Ratio 22 ratio Normal 7-27 [facility] Comment on above: Performed By: #### A COLLIN, GFR, CMP, PBNP, CBC, TSH, ADIFF #### [facility] [address] [place], [place] [address] Calcium [Mass/Vol] 8.5 mg/dL Normal 8.4-10.2 [facility] Comment on above: Performed By: #### A COLLIN, GFR, CMP, PBNP, CBC, TSH, ADIFF #### [place] [address] Chloride [Moles/Vol] 103 mmol/L Normal 98-107 [facility] Comment on above: Performed By: #### A COLLIN, GFR, CMP, PBNP, CBC, TSH, ADIFF #### [place] [address] CO2 [Moles/Vol] 30 mmol/L Normal 23-31 [facility] Comment on above: Performed By: #### A COLLIN, GFR, CMP, PBNP, CBC, TSH, ADIFF #### [place] [address] Creatinine [Mass/Vol] 1.12 mg/dL High 0.51-0.95 [facility] Comment on above: Performed By: #### A COLLIN, GFR, CMP, PBNP, CBC, TSH, ADIFF #### [place] [address] Electrolyte Balance 7.0 mEq/L Normal 4.0-15.0 [facility] Comment on above: Performed By: #### A COLLIN, GFR, CMP, PBNP, CBC, TSH, ADIFF #### [place] [address] Glucose [Mass/Vol] 84 mg/dL Normal 83-110 [facility] Comment on above: Performed By: #### A COLLIN, GFR, CMP, PBNP, CBC, TSH, ADIFF #### [place] [address] Potassium [Moles/Vol] 4.1 mmol/L Normal 3.5-5.1 [facility] Comment on above: Performed By: #### A COLLIN, GFR, CMP, PBNP, CBC, TSH, ADIFF #### [place] [id number] Sodium [Moles/Vol] 140 mmol/L Normal 136-145 [facility] Comment on above: Performed By: #### A COLLIN, GFR, CMP, PBNP, CBC, TSH, ADIFF #### [facility] [address] [place], [place] [address] Urea nitrogen [Mass/Vol] 25 mg/dL High 7-18 [facility] Comment on above: Performed By: #### A COLLIN, GFR, CMP, PBNP, CBC, TSH, ADIFF #### [place] [id number] [place], [place] [address] CAIONon 09-12-2024 Calcium Ionized 1.10 mmol/L Low 1.12-1.32 [facility] Comment on above: Performed By: #### A COLLIN, GFR, CMP, PBNP, CBC, TSH, ADIFF #### [place] [id number] [place], [place] [address] LABORATORYOrdered By: SYSTEM SYSTEM on 09-12-2024 25-hydroxyvitamin [...] 09-12-2024 Magnesium [Mass/Vol] 2.3 mg/dL Normal 1.8-2.4 [facility] Comment on above: Performed By: #### A COLLIN, GFR, CMP, PBNP, CBC, TSH, ADIFF #### [address] [address] PHOSon 09-12-2024 Phosphate [Mass/Vol] 4.2 mg/dL High 2.3-4.1 [facility] Comment on above: Performed By: #### A COLLIN, GFR, CMP, PBNP, CBC, TSH, ADIFF #### [address] [address] VIDHon 09-12-2024 Vit. D 25-Hydroxy 17.6 ng/mL Normal [facility] Comment on above: Result Comment: Inte rpretive Values Based on Total 25(OH) Vitamin D: Deficient <20 ng/mL Insufficient 20 - <30 ng/mL Sufficient 30-100 ng/mL Performed By: #### A COLLIN, GFR, CMP, PBNP, CBC, TSH, ADIFF #### [place] [address] [address] .Auto Diffon 09-01-2024 Basophil, Absolute 0.1 10 3/mcL Normal 0.0-0.3 [facility] Comment on above: Performed By: #### G FR, BMP #### [address] [address] Basophils/100 WBC (Bld) 0.9 % Normal 0.0-2.5 [facility] Comment on above: Performed By: #### G FR, BMP #### [address] [address] Eosinophil, Absolute 0.3 10 3/mcL Normal 0.0-0.7 [facility] Comment on above: Performed By: #### G FR, BMP #### [address] [address] Eosinophils/100 WBC (Bld) 3.5 % Normal 0.0-6.0 [facility] Comment on above: Performed By: #### G FR, BMP #### [address] [address] Lymphocyte, Absolute 0.9 10 3/mcL Normal 0.9-4.3 [facility] Comment on above: Performed By: #### G FR, BMP #### [address] [address] Lymphocytes/100 WBC (Bld) 11.9 % Low 20.0-40.0 [facility] Comment on above: Performed By: #### G FR, BMP #### [address] [address] Monocyte, Absolute 0.9 10 3/mcL Normal 0.1-1.4 [facility] Comment on above: Performed By: #### G FR, BMP #### [address] [address] Monocytes/100 WBC (Bld) 12.2 % Normal 2.0-13.0 [facility] Comment on above: Performed By: #### G , BMP #### [address] [address] Neutrophils/100 WBC (Bld) 71.5 % Normal 50.0-75.0 [facility] Comment on above: Performed By: #### Ed WAGNER, BMP #### [address] [address] .GFRon 09-01-2024 Estimated Glomerular Filtration Rate 45 ml/min/1.73sqm Normal [facility] Comment on above: Result [...] Performed By: #### G , BMP #### [address] [address] .NEUABSon 09-01-2024 Neutrophil, Absolute 5.4 10 3/mcL Normal 2.3-8.1 [facility] Comment on above: Performed By: #### Ed , BMP #### [address] [address] [facility] BUN/Creatinine Ratio 22.5 ratio High 10.0-22.0 [facility] Comment on above: Performed By: #### Ed WAGNER, BMP #### [address] [address] Calcium [Mass/Vol] 7.5 mg/dL Low 8.7-10.4 [facility] Comment on above: Performed By: #### Ed WAGNER, BMP #### [address] [address] Chloride [Moles/Vol] 100 mmol/L Normal 98-110 [facility] Comment on above: Performed By: #### Ed WAGNER, BMP #### [address] [address] CO2 [Moles/Vol] 30 mmol/L Normal 22-32 [facility] Comment on above: Performed By: #### G FR, BMP #### [address] [address] Creatinine [Mass/Vol] 1.20 mg/dL Normal 0.50-1.20 [facility] Comment on above: Result Comment: Test ing performed on homedeco2u analyzer using enzymatic creatinine methodology. Performed By: #### Ed WAGNER, BMP #### [place] [id number] Electrolyte Balance 7.0 mEq/L Normal 4.0-15.0 [facility] Comment on above: Performed By: #### Ed WAGNER, BMP #### [place] [id number] Glucose [Mass/Vol] 84 mg/dL Normal 82-115 [facility] Comment on above: Performed By: #### Ed WAGNER, BMP #### [address] [address] Potassium [Moles/Vol] 3.8 mmol/L Normal 3.5-5.0 [facility] Comment on above: Performed By: #### Ed WAGNER, BMP #### [address] [address] Sodium [Moles/Vol] 137 mmol/L Normal 136-145 [facility] Comment on above: Performed By: #### Ed FR, BMP #### [address] [address] Urea nitrogen [Mass/Vol] 27.0 mg/dL High 8.0-22.0 [facility] Comment on above: Performed By: #### G FR, BMP #### [address] [address] CBCon 09-01-2024 Erythrocyte distribution width (RBC) [Ratio] 13.6 % Normal 11.5-15.5 [facility] Comment on above: Performed By: #### G FR, BMP #### [place] [address] Hematocrit (Bld) [Volume fraction] 32.8 % Low 34.0-46.0 [facility] Comment on above: Performed By: #### G FR, BMP #### [place] [address] Hgb 11.3 G/dL Low 12.0-16.0 [facility] Comment on above: Performed By: #### G FR, BMP #### [place] [address] MCH (RBC) [Entitic mass] 30.1 pg Normal 27.0-33.0 [facility] Comment on above: Performed By: #### G FR, BMP #### [place] [address] MCHC 34.4 G/dL Normal 32.0-36.0 [facility] Comment on above: Performed By: #### G FR, BMP #### [place] [address] MCV (RBC) [Entitic vol] 87.4 fL Normal 80.0-99.0 [facility] Comment on above: Performed By: #### G FR, BMP #### [place] [address] Platelet 284 10 3/mcL Normal 150-450 [facility] Comment on above: Performed By: #### G FR, BMP #### [place] [address] Platelet mean volume (Bld) [Entitic vol] 8.2 fL Normal 6.6-10.5 [facility] Comment on above: Performed By: #### G FR, BMP #### [place] [address] RBC 3.75 10 6/mcL Low 4.10-5.30 [facility] Comment on above: Performed By: #### G FR, BMP #### [place] [address] WBC 7.6 10 3/mcL Normal 4.5-10.8 [facility] Comment on above: Performed By: #### G FR, BMP #### [address] [address] MGon 09-01-2024 Magnesium [Mass/Vol] 2.5 mg/dL High 1.6-2.4 [facility] Comment on above: Performed By: #### G FR, BMP #### [address] [address] .Auto Diffon 08-31-2024 Basophil, Absolute 0.1 10 3/mcL Normal 0.0-0.3 [facility] Comment on above: Performed By: #### A COLLIN, MG, BMP, ADIFF, GFR, CBC, HFP #### [address] [address] Basophils/100 WBC (Bld) 1.2 % Normal 0.0-2.5 [facility] Comment on above: Performed By: #### A COLLIN, MG, BMP, ADIFF, GFR, CBC, HFP #### [address] [address] Eosinophil, Absolute 0.3 10 3/mcL Normal 0.0-0.7 [facility] Comment on above: Performed By: #### A COLLIN, MG, BMP, ADIFF, GFR, CBC, HFP #### [address] [address] Eosinophils/100 WBC (Bld) 3.4 % Normal 0.0-6.0 [facility] Comment on above: Performed By: #### A COLLIN, MG, BMP, ADIFF, GFR, CBC, HFP #### [address] [address] Lymphocyte, Absolute 1.1 10 3/mcL Normal 0.9-4.3 [facility] Comment on above: Performed By: #### A COLLIN, MG, BMP, ADIFF, GFR, CBC, HFP #### [address] [address] Lymphocytes/100 WBC (Bld) 13.9 % Low 20.0-40.0 [facility] Comment on above: Performed By: #### A COLLIN, MG, BMP, ADIFF, GFR, CBC, HFP #### [address] [address] Monocyte, Absolute 1.0 10 3/mcL Normal 0.1-1.4 [facility] Comment on above: Performed By: #### A COLLIN, MG, BMP, ADIFF, GFR, CBC, HFP #### [address] [address] Monocytes/100 WBC (Bld) 12.2 % Normal 2.0-13.0 [facility] Comment on above: Performed By: #### A COLLIN, MG, BMP, ADIFF, GFR, CBC, HFP #### [address] [address] Neutrophils/100 WBC (Bld) 69.3 % Normal 50.0-75.0 [facility] Comment on above: Performed By: #### A COLLIN, MG, BMP, ADIFF, GFR, CBC, HFP #### [place] [id number] .GFRon 08-31-2024 Estimated Glomerular Filtration Rate 39 ml/min/1.73sqm Normal [facility] Comment on above: Result [...] MG, BMP, ADIFF, GFR, CBC, HFP #### [address] [address] .NEUABSon 08-31-2024 Neutrophil, Absolute 5.4 10 3/mcL Normal 2.3-8.1 [facility] Comment on above: Performed By: #### A COLLIN, MG, BMP, ADIFF, GFR, CBC, HFP #### [address] [address] BMPon 08-31-2024 BUN/Creatinine Ratio 23.0 ratio High 10.0-22.0 [facility] Comment on above: Performed By: #### A COLLIN, MG, BMP, ADIFF, GFR, CBC, HFP #### [place] [id number] Calcium [Mass/Vol] 7.5 mg/dL Low 8.7-10.4 [facility] Comment on above: Performed By: #### A COLLIN, MG, BMP, ADIFF, GFR, CBC, HFP #### [place] [address] Chloride [Moles/Vol] 101 mmol/L Normal 98-110 [facility] Comment on above: Performed By: #### A COLLIN, MG, BMP, ADIFF, GFR, CBC, HFP #### [place] [id number] CO2 [Moles/Vol] 30 mmol/L Normal 22-32 [facility] Comment on above: Performed By: #### A COLLIN, MG, BMP, ADIFF, GFR, CBC, HFP #### [place] [address] Creatinine [Mass/Vol] 1.35 mg/dL High 0.50-1.20 [facility] Comment on above: Result Comment: Test ing performed on [id number] analyzer using enzymatic creatinine methodology. Performed By: #### A COLLIN, MG, BMP, ADIFF, GFR, CBC, HFP #### [place] [id number] Electrolyte Balance 8.0 mEq/L Normal 4.0-15.0 [facility] Comment on above: Performed By: #### A COLLIN, MG, BMP, ADIFF, GFR, CBC, HFP #### [place] [id number] Glucose [Mass/Vol] 87 mg/dL Normal 82-115 [facility] Comment on above: Performed By: #### A COLLIN, MG, BMP, ADIFF, GFR, CBC, HFP #### [place] [id number] Potassium [Moles/Vol] 3.9 mmol/L Normal 3.5-5.0 [facility] Comment on above: Performed By: #### A COLLIN, MG, BMP, ADIFF, GFR, CBC, HFP #### [place] [id number] Sodium [Moles/Vol] 139 mmol/L Normal 136-145 [facility] Comment on above: Performed By: #### A COLLIN, MG, BMP, ADIFF, GFR, CBC, HFP #### [place] [address] Urea nitrogen [Mass/Vol] 31.0 mg/dL High 8.0-22.0 [facility] Comment on above: Performed By: #### A COLLIN, MG, BMP, ADIFF, GFR, CBC, HFP #### [place] [id number] CBCon 08-31-2024 Erythrocyte distribution width (RBC) [Ratio] 13.4 % Normal 11.5-15.5 [facility] Comment on above: Performed By: #### A COLLIN, MG, BMP, ADIFF, GFR, CBC, HFP #### [place] [address] Hematocrit (Bld) [Volume fraction] 33.4 % Low 34.0-46.0 [facility] Comment on above: Performed By: #### A COLLIN, MG, BMP, ADIFF, GFR, CBC, HFP #### [place] [address] Hgb 11.2 G/dL Low 12.0-16.0 [facility] Comment on above: Performed By: #### A COLLIN, MG, BMP, ADIFF, GFR, CBC, HFP #### [place] [address] MCH (RBC) [Entitic mass] 29.9 pg Normal 27.0-33.0 [facility] Comment on above: Performed By: #### A COLLIN, MG, BMP, ADIFF, GFR, CBC, HFP #### [address] [address] MCHC 33.5 G/dL Normal 32.0-36.0 [facility] Comment on above: Performed By: #### A COLLIN, MG, BMP, ADIFF, GFR, CBC, HFP #### [place] [address] MCV (RBC) [Entitic vol] 89.5 fL Normal 80.0-99.0 [facility] [facility] Comment on above: Performed By: #### A COLLIN, MG, BMP, ADIFF, GFR, CBC, HFP #### [place] [address] Platelet 271 10 3/mcL Normal 150-450 [facility] MAIN Comment on above: Performed By: #### A COLLIN, MG, BMP, ADIFF, GFR, CBC, HFP #### [place] [address] Platelet mean volume (Bld) [Entitic vol] 7.9 fL Normal 6.6-10.5 [facility] MAIN Comment on above: Performed By: #### A COLLIN, MG, BMP, ADIFF, GFR, CBC, HFP #### [place] [id number] RBC 3.73 10 6/mcL Low 4.10-5.30 [facility] MAIN Comment on above: Performed By: #### A COLLIN, MG, BMP, ADIFF, GFR, CBC, HFP #### [place] [id number] WBC 7.8 10 3/mcL Normal 4.5-10.8 [facility] MAIN Comment on above: Performed By: #### A COLLIN, MG, BMP, ADIFF, GFR, CBC, HFP #### [place] [address] MGon 08-31-2024 Magnesium [Mass/Vol] 2.5 mg/dL High 1.6-2.4 [facility] MAIN Comment on above: Performed By: #### A COLLIN, MG, BMP, ADIFF, GFR, CBC, HFP #### [address] [address] .GFRon 08-30-2024 Estimated Glomerular Filtration Rate 34 ml/min/1.73sqm [facility] MAIN Comment on above: Result Comment: Stages [...] Performed By: #### G FR, BMP #### [place] [address] Estimated Glomerular Filtration Rate 42 ml/min/1.73sqm [facility] MAIN Comment on above: Result Comment: Stages [...] MG, BMP, ADIFF, GFR, CBC, HFP #### [address] [address] [facility] BUN/Creatinine Ratio 21.3 ratio Normal 10.0-22.0 [facility] MAIN Comment on above: Performed By: #### A COLLIN, MG, BMP, ADIFF, GFR, CBC, HFP #### [place] [address] Calcium [Mass/Vol] 7.9 mg/dL Low 8.7-10.4 [facility] MAIN Comment on above: Performed By: #### A COLLIN, MG, BMP, ADIFF, GFR, CBC, HFP #### [address] [address] Chloride [Moles/Vol] 102 mmol/L Normal 98-110 [facility] MAIN Comment on above: Performed By: #### A COLLIN, MG, BMP, ADIFF, GFR, CBC, HFP #### [address] [address] CO2 [Moles/Vol] 28 mmol/L Normal 22-32 [facility] MAIN Comment on above: Performed By: #### A COLLIN, MG, BMP, ADIFF, GFR, CBC, HFP #### [address] [address] Creatinine [Mass/Vol] 1.27 mg/dL High 0.50-1.20 [facility] MAIN Comment on above: Result Comment: Test ing performed on homedeco2u analyzer using enzymatic creatinine methodology. Performed By: #### A COLLIN, MG, BMP, ADIFF, GFR, CBC, HFP #### [place] [id number] Electrolyte Balance 9.0 mEq/L Normal 4.0-15.0 [facility] MAIN Comment on above: Performed By: #### A COLLIN, MG, BMP, ADIFF, GFR, CBC, HFP #### [address] [address] Glucose [Mass/Vol] 90 mg/dL Normal 82-115 [facility] MAIN Comment on above: Performed By: #### A COLLIN, MG, BMP, ADIFF, GFR, CBC, HFP #### [address] [address] Potassium [Moles/Vol] 4.0 mmol/L Normal 3.5-5.0 [facility] MAIN Comment on above: Performed By: #### A COLLIN, MG, BMP, ADIFF, GFR, CBC, HFP #### [place] [id number] Sodium [Moles/Vol] 139 mmol/L Normal 136-145 [facility] MAIN Comment on above: Performed By: #### A COLLIN, MG, BMP, ADIFF, GFR, CBC, HFP #### [place] [id number] Urea nitrogen [Mass/Vol] 27.0 mg/dL High 8.0-22.0 [facility] MAIN Comment on above: Performed By: #### A COLLIN, MG, BMP, ADIFF, GFR, CBC, HFP #### [address] [address] CMPon 08-30-2024 Albumin Level 3.4 G/dL Normal 3.2-4.8 [facility] MAIN Comment on above: Performed By: #### G FR, BMP #### [place] [id number] Albumin/Globulin [Mass ratio] 1.2 {ratio} Normal 0.9-1.6 [facility] MAIN Comment on above: Performed By: #### G FR, BMP #### [place] [id number] ALP [Catalytic activity/Vol] 74 U/L Normal 38-126 [facility] MAIN Comment on above: Performed By: #### G FR, BMP #### [place] [id number] ALT [Catalytic activity/Vol] 8 U/L Low 10-49 [facility] MAIN Comment on above: Performed By: #### G FR, BMP #### [place] [id number] AST [Catalytic activity/Vol] 13 U/L Normal 8-34 [facility] MAIN Comment on above: Performed By: #### G FR, BMP #### [place] [id number] Bili Total 0.30 mg/dL Normal 0.20-1.20 [facility] MAIN Comment on above: Result Comment: Use of this assay is not recommended for patients undergoing treatment with eltrombopag due to the potential for falsely elevated results. Performed By: #### G FR, BMP #### [place] [address] BUN/Creatinine Ratio 19.6 ratio Normal 10.0-22.0 [facility] MAIN Comment on above: Performed By: #### G FR, BMP #### [address] [address] Calcium [Mass/Vol] 7.6 mg/dL Low 8.7-10.4 [facility] MAIN Comment on above: Performed By: #### G FR, BMP #### [address] [address] Chloride [Moles/Vol] 101 mmol/L Normal 98-110 [facility] MAIN Comment on above: Performed By: #### G FR, BMP #### [address] [address] CO2 [Moles/Vol] 27 mmol/L Normal 22-32 [facility] MAIN Comment on above: Performed By: #### Ed FR, BMP #### [place] [id number] Creatinine [Mass/Vol] 1.53 mg/dL High 0.50-1.20 [facility] MAIN Comment on above: Result Comment: Test ing performed on homedeco2u analyzer using enzymatic creatinine methodology. Performed By: #### Ed FR, BMP #### [address] [address] Electrolyte Balance 9.0 mEq/L Normal 4.0-15.0 [facility] MAIN Comment on above: Performed By: #### G FR, BMP #### [address] [address] Globulin 2.8 G/dL Normal 2.5-4.2 [facility] MAIN Comment on above: Performed By: #### G FR, BMP #### [address] [address] Glucose [Mass/Vol] 102 mg/dL Normal 82-115 [facility] MAIN Comment on above: Performed By: #### G FR, BMP #### [address] [address] Potassium [Moles/Vol] 3.9 mmol/L Normal 3.5-5.0 [facility] MAIN Comment on above: Performed By: #### G FR, BMP #### [address] [address] Sodium [Moles/Vol] 137 mmol/L Normal 136-145 [facility] MAIN Comment on above: Performed By: #### G FR, BMP #### [address] [address] Total Protein 6.2 G/dL Normal 5.7-8.2 [facility] MAIN Comment on above: Performed By: #### G FR, BMP #### [address] [address] Urea nitrogen [Mass/Vol] 30.0 mg/dL High 8.0-22.0 [facility] MAIN Comment on above: Performed By: #### G FR, BMP #### [address] [address] MGon 08-30-2024 Magnesium [Mass/Vol] 2.4 mg/dL Normal 1.6-2.4 [facility] MAIN Comment on above: Performed By: #### C MP, MG, GFR #### [address] [address] Magnesium [Mass/Vol] 2.8 mg/dL High 1.6-2.4 [facility] MAIN Comment on above: Performed By: #### A COLLIN, MG, BMP, ADIFF, GFR, CBC, HFP #### [address] [address] [place] MYOCARDIAL SPECT STRESS/R ESTon 08-30-2024 NM [...] Date: 08/30/2024 3:24:08 PM Ordering Provider:Harry Bailon [facility] MAIN .GFRon 08-29-2024 Estimated Glomerular Filtration Rate 43 ml/min/1.73sqm [facility] MAIN Comment on above: Result Comment: Stages [...] MG, BMP, ADIFF, GFR, CBC, HFP #### [address] [address] [facility] 08-29-2024 BUN/Creatinine Ratio 23.2 ratio High 10.0-22.0 [facility] MAIN Comment on above: Performed By: #### A COLLIN, MG, BMP, ADIFF, GFR, CBC, HFP #### [address] [address] Calcium [Mass/Vol] 8.4 mg/dL Low 8.7-10.4 [facility] MAIN Comment on above: Performed By: #### A COLLIN, MG, BMP, ADIFF, GFR, CBC, HFP #### [address] [address] Chloride [Moles/Vol] 103 mmol/L Normal 98-110 [facility] MAIN Comment on above: Performed By: #### A COLLIN, MG, BMP, ADIFF, GFR, CBC, HFP #### [address] [address] CO2 [Moles/Vol] 28 mmol/L Normal 22-32 [facility] MAIN Comment on above: Performed By: #### A COLLIN, MG, BMP, ADIFF, GFR, CBC, HFP #### [address] [address] Creatinine [Mass/Vol] 1.25 mg/dL High 0.50-1.20 [facility] MAIN Comment on above: Result Comment: Test ing performed on homedeco2u analyzer using enzymatic creatinine methodology. Performed By: #### A COLLIN, MG, BMP, ADIFF, GFR, CBC, HFP #### [address] [address] Electrolyte Balance 10.0 mEq/L Normal 4.0-15.0 [facility] MAIN Comment on above: Performed By: #### A COLLIN, MG, BMP, ADIFF, GFR, CBC, HFP #### [address] [address] Glucose [Mass/Vol] 81 mg/dL Low 82-115 [facility] MAIN Comment on above: Performed By: #### A COLLIN, MG, BMP, ADIFF, GFR, CBC, HFP #### [address] [address] Potassium [Moles/Vol] 3.9 mmol/L Normal 3.5-5.0 [facility] MAIN Comment on above: Performed By: #### A COLLIN, MG, BMP, ADIFF, GFR, CBC, HFP #### [address] [address] Sodium [Moles/Vol] 141 mmol/L Normal 136-145 [facility] MAIN Comment on above: Performed By: #### A COLLIN, MG, BMP, ADIFF, GFR, CBC, HFP #### [address] [place] [address] Urea nitrogen [Mass/Vol] 29.0 mg/dL High 8.0-22.0 [facility] MAIN Comment on above: Performed By: #### A COLLIN, MG, BMP, ADIFF, GFR, CBC, HFP #### [facility] [address] [place] [address] MGon 08-29-2024 Magnesium [Mass/Vol] 2.3 mg/dL Normal 1.6-2.4 [facility] MAIN Comment on above: Performed By: #### A COLLIN, MG, BMP, ADIFF, GFR, CBC, HFP #### [address] [address] XR CHEST 1 VIEWon 08-29-2024 XR CHEST [...] 08/29/2024 5:31:45 PM Ordering Provider: ANASTASIYA JEFF [facility] MAIN .GFRon 08-28-2024 Estimated Glomerular Filtration Rate 49 ml/min/1.73sqm [facility] MAIN Comment on above: Result Comment: Stages [...] Performed By: #### Ed , BMP #### [address] [address] [facility] 08-28-2024 BUN/Creatinine Ratio 25.7 ratio High 10.0-22.0 [facility]IN Comment on above: Performed By: #### G , BMP #### [address] [address] Calcium [Mass/Vol] 8.8 mg/dL Normal 8.7-10.4 [facility] MAIN Comment on above: Performed By: #### Ed , BMP #### [address] [address] Chloride [Moles/Vol] 105 mmol/L Normal 98-110 [facility] MAIN Comment on above: Performed By: #### Ed , BMP #### [address] [address] CO2 [Moles/Vol] 28 mmol/L Normal 22-32 [facility] MAIN Comment on above: Performed By: #### Ed , BMP #### [address] [address] Creatinine [Mass/Vol] 1.13 mg/dL Normal 0.50-1.20 [facility] MAIN Comment on above: Result Comment: Test ing performed on homedeco2u analyzer using enzymatic creatinine methodology. Performed By: #### G FR, BMP #### [address] [address] Electrolyte Balance 8.0 mEq/L Normal 4.0-15.0 [facility] MAIN Comment on above: Performed By: #### G FR, BMP #### [address] [address] Glucose [Mass/Vol] 86 mg/dL Normal 82-115 [facility] MAIN Comment on above: Performed By: #### G FR, BMP #### [address] [address] Potassium [Moles/Vol] 4.1 mmol/L Normal 3.5-5.0 [facility] MAIN Comment on above: Performed By: #### Ed WAGNER, BMP #### [address] [address] Sodium [Moles/Vol] 141 mmol/L Normal 136-145 [facility] MAIN Comment on above: Performed By: #### Ed WAGNER, BMP #### [address] [address] Urea nitrogen [Mass/Vol] 29.0 mg/dL High 8.0-22.0 [facility] MAIN Comment on above: Performed By: #### Ed WAGNER, BMP #### [address] [address] MGon 08-28-2024 Magnesium [Mass/Vol] 2.3 mg/dL Normal 1.6-2.4 [facility] MAIN Comment on above: Performed By: #### Ed , BMP #### [address] [address] .GFRon 08-27-2024 Estimated Glomerular Filtration Rate 49 ml/min/1.73sqm Normal [facility] MAIN Comment on above: Result [...] Performed By: #### Ed WAGNER, BMP #### [address] [address] CMPon 08-27-2024 Albumin Level 3.7 G/dL Normal 3.2-4.8 [facility] MAIN Comment on above: Performed By: #### Ed FR, BMP #### [place] [address] Albumin/Globulin [Mass ratio] 1.4 {ratio} Normal 0.9-1.6 [facility] MAIN Comment on above: Performed By: #### G FR, BMP #### [place] [address] ALP [Catalytic activity/Vol] 80 U/L Normal 38-126 [facility] MAIN Comment on above: Performed By: #### G , BMP #### [place] [id number] ALT [Catalytic activity/Vol] 8 U/L Low 10-49 [facility] MAIN Comment on above: Performed By: #### Ed WAGNER, BMP #### [place] [address] AST [Catalytic activity/Vol] 13 U/L Normal 8-34 [facility] MAIN Comment on above: Performed By: #### Ed WAGNER, BMP #### [place] [address] Bili Total 0.20 mg/dL Normal 0.20-1.20 [facility] MAIN Comment on above: Result Comment: Use of this assay is not recommended for patients undergoing treatment with eltrombopag due to the potential for falsely elevated results. Performed By: #### Ed WAGNER, BMP #### [place] [address] BUN/Creatinine Ratio 26.8 ratio High 10.0-22.0 [facility] MAIN Comment on above: Performed By: #### Ed FR, BMP #### [place] [id number] Calcium [Mass/Vol] 9.2 mg/dL Normal 8.7-10.4 [facility] MAIN Comment on above: Performed By: #### Ed FR, BMP #### [place] [address] Chloride [Moles/Vol] 105 mmol/L Normal 98-110 [facility]IN Comment on above: Performed By: #### Ed WAGNER, BMP #### [place] [address] CO2 [Moles/Vol] 28 mmol/L Normal 22-32 [facility] MAIN Comment on above: Performed By: #### G FR, BMP #### [address] [address] Creatinine [Mass/Vol] 1.12 mg/dL Normal 0.50-1.20 [facility] MAIN Comment on above: Result Comment: Test ing performed on homedeco2u analyzer using enzymatic creatinine methodology. Performed By: #### G FR, BMP #### [address] [address] Electrolyte Balance 9.0 mEq/L Normal 4.0-15.0 [facility] MAIN Comment on above: Performed By: #### G FR, BMP #### [address] [address] Globulin 2.7 G/dL Normal 2.5-4.2 [facility] MAIN Comment on above: Performed By: #### G FR, BMP #### [address] [address] Glucose [Mass/Vol] 95 mg/dL Normal 82-115 [facility] MAIN Comment on above: Performed By: #### G FR, BMP #### [address] [address] Potassium [Moles/Vol] 4.0 mmol/L Normal 3.5-5.0 [facility] MAIN Comment on above: Performed By: #### G FR, BMP #### [address] [address] Sodium [Moles/Vol] 142 mmol/L Normal 136-145 [facility] MAIN Comment on above: Performed By: #### G FR, BMP #### [address] [address] Total Protein 6.4 G/dL Normal 5.7-8.2 [facility] MAIN Comment on above: Performed By: #### G FR, BMP #### [address] [address] Urea nitrogen [Mass/Vol] 30.0 mg/dL High 8.0-22.0 [facility] MAIN Comment on above: Performed By: #### G FR, BMP #### [place] [id number] [place] [address] MGon 08-27-2024 Magnesium [Mass/Vol] 2.4 mg/dL Normal 1.6-2.4 [facility]IN Comment on above: Performed By: #### G FR, BMP #### [address] [address] PROon 08-27-2024 INR Coag (PPP) [Relative time] 1.2 {INR} Normal [facility] MAIN Comment on above: Result Comment: The [employer] (CHEST, 1992, 102:312S-25S) recommended therapeutic range for oral anticoagulant therapy is: LOW RISK: Prophylaxis of venous thrombosis INR: 2.0-3.0 Treatment of pulmonary embolism 2.0-3.0 Prevention of systemic embolism 2.0-3.0 HIGH RISK: Mechanical prosthetic valves 2.5-3.5 Performed By: #### G , BMP #### [place] [id number] PT Coag (PPP) [Time] 13.2 s Normal 9.0-14.4 [facility] MAIN Comment on above: Result Comment: Effe ctive 10/24/07, Protime results may be affected by some antibiotics (i.e. Ciprofloxacin, Azithromycin, Bactrim) which may potentiate the action of oral anticoagulants, with further increases in Protime/INR. Performed By: #### G , BMP #### [address] [address] .GFRon 08-21-2024 Estimated Glomerular Filtration Rate 46 ml/min/1.73sqm Normal [facility] Comment on above: Result Comment: Stages [...] GFR, BMP, CBC, ANEU, TROPHS, ADIFF #### [address] [address] BMPon 08-21-2024 BUN/Creatinine Ratio 19 ratio Normal 7-27 [facility] Comment on above: Performed By: #### M DW, MG, GFR, BMP, CBC, ANEU, TROPHS, ADIFF #### [address] [address] Calcium [Mass/Vol] 9.1 mg/dL Normal 8.4-10.2 [facility] Comment on above: Performed By: #### M DW, MG, GFR, BMP, CBC, ANEU, TROPHS, ADIFF #### [address] [address] Chloride [Moles/Vol] 104 mmol/L Normal 98-107 [facility] Comment on above: Performed By: #### M DW, MG, GFR, BMP, CBC, ANEU, TROPHS, ADIFF #### [address] [address] CO2 [Moles/Vol] 27 mmol/L Normal 23-31 [facility] Comment on above: Performed By: #### M DW, MG, GFR, BMP, CBC, ANEU, TROPHS, ADIFF #### [address] [address] Creatinine [Mass/Vol] 1.18 mg/dL High 0.51-0.95 [facility] Comment on above: Performed By: #### M DW, MG, GFR, BMP, CBC, ANEU, TROPHS, ADIFF #### [address] [address] Electrolyte Balance 8.0 mEq/L Normal 4.0-15.0 [facility] Comment on above: Performed By: #### M DW, MG, GFR, BMP, CBC, ANEU, TROPHS, ADIFF #### [address] [address] Glucose [Mass/Vol] 95 mg/dL Normal 83-110 [facility] Comment on above: Performed By: #### M DW, MG, GFR, BMP, CBC, ANEU, TROPHS, ADIFF #### [address] [address] Potassium [Moles/Vol] 5.3 mmol/L High 3.5-5.1 [facility] Comment on above: Performed By: #### M DW, MG, GFR, BMP, CBC, ANEU, TROPHS, ADIFF #### [address] [address] Sodium [Moles/Vol] 139 mmol/L Normal 136-145 [facility] Comment on above: Performed By: #### M DW, MG, GFR, BMP, CBC, ANEU, TROPHS, ADIFF #### [address] [address] Urea nitrogen [Mass/Vol] 23 mg/dL High 7-18 [facility] Comment on above: Performed By: #### M DW, MG, GFR, BMP, CBC, ANEU, TROPHS, ADIFF #### [address] [address] LABORATORYOrdered By: SYSTEM SYSTEM on 08-21-2024 Calcium [...] Estimated Glomerular Filtration Rate 41 ml/min/1.73sqm Normal [facility] MAIN Comment on above: Result [...] MG, BMP, ADIFF, GFR, CBC, HFP #### [place] [address] BMPon 08-09-2024 BUN/Creatinine Ratio 22.9 ratio High 10.0-22.0 [facility] Comment on above: Order Comment: Unexp ected results. Possible specimen contamination. Called Ashley Puckett on [facility] for recollect. 08/09/2024 05:15:01 EDT Performed By: #### A COLLIN, MG, BMP, ADIFF, GFR, CBC, HFP #### [address] [address] Calcium [Mass/Vol] 7.4 mg/dL Low 8.7-10.4 [facility] MAIN Comment on above: Order Comment: Unexp ected results. Possible specimen contamination. Called Ashley Puckett on [facility] for recollect. 08/09/2024 05:15:01 EDT Performed By: #### A COLLIN, MG, BMP, ADIFF, GFR, CBC, HFP #### [address] [address] Chloride [Moles/Vol] 105 mmol/L Normal 98-110 [facility] Comment on above: Order Comment: Unexp ected results. Possible specimen contamination. Called Ashley Puckett on [facility] for recollect. 08/09/2024 05:15:01 EDT Performed By: #### A COLLIN, MG, BMP, ADIFF, GFR, CBC, HFP #### [address] [address] CO2 [Moles/Vol] 23 mmol/L Normal 22-32 [facility]IN Comment on above: Order Comment: Unexp ected results. Possible specimen contamination. Called Ashley Puckett on [facility] for recollect. 08/09/2024 05:15:01 EDT Performed By: #### A COLLIN, MG, BMP, ADIFF, GFR, CBC, HFP #### [address] [address] Creatinine [Mass/Vol] 1.31 mg/dL High 0.50-1.20 [facility] Comment on above: Order Comment: Unexp ected results. Possible specimen contamination. Called Ashley Puckett on [facility] for recollect. 08/09/2024 05:15:01 EDT Result Comment: Test ing performed on homedeco2u analyzer using enzymatic creatinine methodology. Performed By: #### A COLLIN, MG, BMP, ADIFF, GFR, CBC, HFP #### [address] [address] Electrolyte Balance 8.0 mEq/L Normal 4.0-15.0 [facility] Comment on above: Order Comment: Unexp ected results. Possible specimen contamination. Called feliz Diamondt on [facility] for recollect. 08/09/2024 05:15:01 EDT Performed By: #### A COLLIN, MG, BMP, ADIFF, GFR, CBC, HFP #### [address] [address] Glucose [Mass/Vol] 99 mg/dL Normal 82-115 [facility] Comment on above: Order Comment: Unexp ected results. Possible specimen contamination. Called Ashley Puckett on [facility] for recollect. 08/09/2024 05:15:01 EDT Performed By: #### A COLLIN, MG, BMP, ADIFF, GFR, CBC, HFP #### [address] [address] Potassium [Moles/Vol] 5.5 mmol/L High 3.5-5.0 [facility] Comment on above: Order Comment: Unexp ected results. Possible specimen contamination. Called Ashley Puckett on [facility] for recollect. 08/09/2024 05:15:01 EDT Performed By: #### A COLLIN, MG, BMP, ADIFF, GFR, CBC, HFP #### [address] [address] Sodium [Moles/Vol] 136 mmol/L Normal 136-145 [facility] Comment on above: Order Comment: Unexp ected results. Possible specimen contamination. Called Ashley Puckett on [facility] for recollect. 08/09/2024 05:15:01 EDT Performed By: #### A COLLIN, MG, BMP, ADIFF, GFR, CBC, HFP #### [address] [address] Urea nitrogen [Mass/Vol] 30.0 mg/dL High 8.0-22.0 [facility] Comment on above: Order Comment: Unexp ected results. Possible specimen contamination. Called Ashley Puckett on [facility] for recollect. 08/09/2024 05:15:01 EDT Performed By: #### A COLLIN, MG, BMP, ADIFF, GFR, CBC, HFP #### [address] [address] LABORATORYOrdered By: SYSTEM SYSTEM on 08-09-2024 Calcium [...] above: Interpretive Data: T esting performed on homedeco2u analyzer using enzymatic creatinine methodology. Electrolyte Balance [...] Basophil, Absolute 0.1 10 3/mcL Normal 0.0-0.3 [facility] Comment on above: Performed By: #### A COLLIN, MG, BMP, ADIFF, GFR, CBC, HFP #### [address] [address] Basophils/100 WBC (Bld) 1.5 % Normal 0.0-2.5 [facility] Comment on above: Performed By: #### A COLLIN, MG, BMP, ADIFF, GFR, CBC, HFP #### [address] [address] Eosinophil, Absolute 0.2 10 3/mcL Normal 0.0-0.7 [facility]IN Comment on above: Performed By: #### A COLLIN, MG, BMP, ADIFF, GFR, CBC, HFP #### [address] [address] Eosinophils/100 WBC (Bld) 2.8 % Normal 0.0-6.0 [facility] Comment on above: Performed By: #### A COLLIN, MG, BMP, ADIFF, GFR, CBC, HFP #### [address] [address] Lymphocyte, Absolute 0.7 10 3/mcL Low 0.9-4.3 [facility] Comment on above: Performed By: #### A COLLIN, MG, BMP, ADIFF, GFR, CBC, HFP #### [address] [address] Lymphocytes/100 WBC (Bld) 9.3 % Low 20.0-40.0 [facility] Comment on above: Performed By: #### A COLLIN, MG, BMP, ADIFF, GFR, CBC, HFP #### [address] [address] Monocyte, Absolute 0.5 10 3/mcL Normal 0.1-1.4 [facility] Comment on above: Performed By: #### A COLLIN, MG, BMP, ADIFF, GFR, CBC, HFP #### [address] [address] Monocytes/100 WBC (Bld) 7.4 % Normal 2.0-13.0 [facility] Comment on above: Performed By: #### A COLLIN, MG, BMP, ADIFF, GFR, CBC, HFP #### [address] [address] Neutrophils/100 WBC (Bld) 79.0 % High 50.0-75.0 [facility] Comment on above: Performed By: #### A COLLIN, MG, BMP, ADIFF, GFR, CBC, HFP #### [address] [address] .GFRon 08-08-2024 Estimated Glomerular Filtration Rate 52 ml/min/1.73sqm Normal [facility] Comment on above: Result [...] MG, BMP, ADIFF, GFR, CBC, HFP #### [address] [address] .NEUABSon 08-08-2024 Neutrophil, Absolute 5.8 10 3/mcL Normal 2.3-8.1 [facility] Comment on above: Performed By: #### A COLLIN, MG, BMP, ADIFF, GFR, CBC, HFP #### [place] [id number] ABO/Rh (Gel)on 08-08-2024 ABO/Rh Interp Positive Invalid Interpretation Code [facility] Comment on above: Performed By: #### A COLLIN, MG, BMP, ADIFF, GFR, CBC, HFP #### [address] [address] ABS (Gel)on 08-08-2024 ABSC Interp (Gel) Negative Normal [facility] Comment on above: Performed By: #### A COLLIN, MG, BMP, ADIFF, GFR, CBC, HFP #### [address] [address] APTTon 08-08-2024 aPTT Coag (Bld) [Time] 37.1 s High 25.0-35.0 [facility] Comment on above: Result Comment: For Heparin anticoagulation therapy, the recommended therapeutic range is: 54-77 seconds (APTT Correlation with Anti-Xa therapeutic range of 0.3-0.7 units/ml). PLEASE REFERENCE THE PHARMACY PROTOCOL FOR DOSING. Performed By: #### A COLLIN, MG, BMP, ADIFF, GFR, CBC, HFP #### [place] [id number] BMPon 08-08-2024 BUN/Creatinine Ratio 15.0 ratio Normal 10.0-22.0 [facility] Comment on above: Performed By: #### A COLLIN, MG, BMP, ADIFF, GFR, CBC, HFP #### [place] [address] Calcium [Mass/Vol] 8.3 mg/dL Low 8.7-10.4 [facility] Comment on above: Performed By: #### A COLLIN, MG, BMP, ADIFF, GFR, CBC, HFP #### [place] [address] Chloride [Moles/Vol] 106 mmol/L Normal 98-110 [facility] Comment on above: Performed By: #### A COLLIN, MG, BMP, ADIFF, GFR, CBC, HFP #### [place] [address] CO2 [Moles/Vol] 24 mmol/L Normal 22-32 [facility] Comment on above: Performed By: #### A COLLIN, MG, BMP, ADIFF, GFR, CBC, HFP #### [place] [id number] Creatinine [Mass/Vol] 1.07 mg/dL Normal 0.50-1.20 [facility] Comment on above: Result Comment: Test ing performed on homedeco2u analyzer using enzymatic creatinine methodology. Performed By: #### A COLLIN, MG, BMP, ADIFF, GFR, CBC, HFP #### [place] [id number] Electrolyte Balance 7.0 mEq/L Normal 4.0-15.0 [facility] Comment on above: Performed By: #### A COLLIN, MG, BMP, ADIFF, GFR, CBC, HFP #### [place] [id number] Glucose [Mass/Vol] 87 mg/dL Normal 82-115 [facility] Comment on above: Performed By: #### A COLLIN, MG, BMP, ADIFF, GFR, CBC, HFP #### [place] [id number] Potassium [Moles/Vol] 4.4 mmol/L Normal 3.5-5.0 [facility] Comment on above: Performed By: #### A COLLIN, MG, BMP, ADIFF, GFR, CBC, HFP #### [place] [id number] Sodium [Moles/Vol] 137 mmol/L Normal 136-145 [facility] Comment on above: Performed By: #### A COLLIN, MG, BMP, ADIFF, GFR, CBC, HFP #### [place] [address] Urea nitrogen [Mass/Vol] 16.0 mg/dL Normal 8.0-22.0 [facility] Comment on above: Performed By: #### A COLLIN, MG, BMP, ADIFF, GFR, CBC, HFP #### [address] [address] CBCon 08-08-2024 Erythrocyte distribution width (RBC) [Ratio] 14.2 % Normal 11.5-15.5 [facility] Comment on above: Performed By: #### A COLLIN, MG, BMP, ADIFF, GFR, CBC, HFP #### [place] [id number] Hematocrit (Bld) [Volume fraction] 36.9 % Normal 34.0-46.0 [facility] Comment on above: Performed By: #### A COLLIN, MG, BMP, ADIFF, GFR, CBC, HFP #### [place] [id number] Hgb 12.3 G/dL Normal 12.0-16.0 [facility] Comment on above: Performed By: #### A COLLIN, MG, BMP, ADIFF, GFR, CBC, HFP #### [place] [address] MCH (RBC) [Entitic mass] 29.9 pg Normal 27.0-33.0 [facility] Comment on above: Performed By: #### A COLLIN, MG, BMP, ADIFF, GFR, CBC, HFP #### [place] [address] MCHC 33.3 G/dL Normal 32.0-36.0 [facility] Comment on above: Performed By: #### A COLLIN, MG, BMP, ADIFF, GFR, CBC, HFP #### [place] [address] MCV (RBC) [Entitic vol] 89.8 fL Normal 80.0-99.0 [facility] Comment on above: Performed By: #### A COLLIN, MG, BMP, ADIFF, GFR, CBC, HFP #### [place] [address] Platelet 309 10 3/mcL Normal 150-450 [facility] Comment on above: Performed By: #### A COLLIN, MG, BMP, ADIFF, GFR, CBC, HFP #### [place] [address] Platelet mean volume (Bld) [Entitic vol] 7.8 fL Normal 6.6-10.5 [facility] Comment on above: Performed By: #### A COLLIN, MG, BMP, ADIFF, GFR, CBC, HFP #### [place] [address] RBC 4.11 10 6/mcL Normal 4.10-5.30 [facility] Comment on above: Performed By: #### A COLLIN, MG, BMP, ADIFF, GFR, CBC, HFP #### [place] [address] WBC 7.4 10 3/mcL Normal 4.5-10.8 [facility] Comment on above: Performed By: #### A COLLIN, MG, BMP, ADIFF, GFR, CBC, HFP #### [facility] [address] [place] [address] FIBon 08-08-2024 Fibrinogen 583 mg/dL High 250-560 [facility] Comment on above: Performed By: #### A COLLIN, MG, BMP, ADIFF, GFR, CBC, HFP #### [facility] [address] [place] [address] LABORATORYOrdered By: Óscar Guerrero on 08-08-2024 ABO [...] above: Interpretive Data: T esting performed on homedeco2u analyzer using enzymatic creatinine methodology. Electrolyte Balance [...] Comment on above: Interpretive Data: Jatinder samano [employer] (CHEST, 1991, 102:312S-25S) [...] Coag (PPP) [Relative time] 1.2 {INR} Normal [facility] Comment on above: Result Comment: [employer] (CHEST, 1991, 102:312S-25S) recommended therapeutic range for oral anticoagulant therapy is: LOW RISK: Prophylaxis of venous thrombosis INR: 2.0-3.0 Treatment of pulmonary embolism 2.0-3.0 Prevention of systemic embolism 2.0-3.0 HIGH RISK: Mechanical prosthetic valves 2.5-3.5 Performed By: #### A COLLIN, MG, BMP, ADIFF, GFR, CBC, HFP #### [address] [address] PT Coag (PPP) [Time] 13.7 s Normal 9.0-14.4 [facility] Comment on above: Result Comment: Effe ctive 10/24/07, Protime results may be affected by some antibiotics (i.e. Ciprofloxacin, Azithromycin, Bactrim) which may potentiate the action of oral anticoagulants, with further increases in Protime/INR. Performed By: #### A COLLIN, MG, BMP, ADIFF, GFR, CBC, HFP #### [address] [address] .Auto Diffon 07-27-2024 Basophil, Absolute 0.1 10 3/mcL Normal 0.0-0.3 [facility] Comment on above: Performed By: #### A COLLIN, MG, BMP, ADIFF, GFR, CBC, HFP #### [address] [address] Basophils/100 WBC (Bld) 1.2 % Normal 0.0-2.5 [facility] Comment on above: Performed By: #### A COLLIN, MG, BMP, ADIFF, GFR, CBC, HFP #### [address] [address] Eosinophil, Absolute 0.2 10 3/mcL Normal 0.0-0.7 [facility] Comment on above: Performed By: #### A COLLIN, MG, BMP, ADIFF, GFR, CBC, HFP #### [address] [address] Eosinophils/100 WBC (Bld) 2.3 % Normal 0.0-6.0 [facility] Comment on above: Performed By: #### A COLLIN, MG, BMP, ADIFF, GFR, CBC, HFP #### [address] [address] Lymphocyte, Absolute 0.9 10 3/mcL Normal 0.9-4.3 [facility] Comment on above: Performed By: #### A COLLIN, MG, BMP, ADIFF, GFR, CBC, HFP #### [address] [address] Lymphocytes/100 WBC (Bld) 10.3 % Low 20.0-40.0 [facility] Comment on above: Performed By: #### A COLLIN, MG, BMP, ADIFF, GFR, CBC, HFP #### [address] [address] Monocyte, Absolute 0.8 10 3/mcL Normal 0.1-1.4 [facility] Comment on above: Performed By: #### A COLLIN, MG, BMP, ADIFF, GFR, CBC, HFP #### [address] [address] Monocytes/100 WBC (Bld) 8.6 % Normal 2.0-13.0 [facility] Comment on above: Performed By: #### A COLLIN, MG, BMP, ADIFF, GFR, CBC, HFP #### [address] [address] Neutrophils/100 WBC (Bld) 77.6 % High 50.0-75.0 [facility] Comment on above: Performed By: #### A COLLIN, MG, BMP, ADIFF, GFR, CBC, HFP #### [address] [address] .GFRon 07-27-2024 Estimated Glomerular Filtration Rate 59 ml/min/1.73sqm Normal [facility] Comment on above: Result [...] MG, BMP, ADIFF, GFR, CBC, HFP #### [address] [address] .NEUABSon 07-27-2024 Neutrophil, Absolute 7.0 10 3/mcL Normal 2.3-8.1 [facility] Comment on above: Performed By: #### A COLLIN, MG, BMP, ADIFF, GFR, CBC, HFP #### [address] [address] BMPon 07-27-2024 BUN/Creatinine Ratio 21.9 ratio Normal 10.0-22.0 [facility] Comment on above: Performed By: #### A COLLIN, MG, BMP, ADIFF, GFR, CBC, HFP #### [address] [address] Calcium [Mass/Vol] 9.0 mg/dL Normal 8.7-10.4 [facility] Comment on above: Performed By: #### A COLLIN, MG, BMP, ADIFF, GFR, CBC, HFP #### [address] [address] Chloride [Moles/Vol] 106 mmol/L Normal 98-110 [facility] Comment on above: Performed By: #### A COLLIN, MG, BMP, ADIFF, GFR, CBC, HFP #### [address] [address] CO2 [Moles/Vol] 29 mmol/L Normal 22-32 [facility] Comment on above: Performed By: #### A COLLIN, MG, BMP, ADIFF, GFR, CBC, HFP #### [place] [id number] Creatinine [Mass/Vol] 0.96 mg/dL Normal 0.50-1.20 [facility] Comment on above: Result Comment: Test ing performed on homedeco2u analyzer using enzymatic creatinine methodology. Performed By: #### A COLLIN, MG, BMP, ADIFF, GFR, CBC, HFP #### [place] [id number] Electrolyte Balance 8.0 mEq/L Normal 4.0-15.0 [facility] Comment on above: Performed By: #### A COLLIN, MG, BMP, ADIFF, GFR, CBC, HFP #### [place] [address] Glucose [Mass/Vol] 97 mg/dL Normal 82-115 [facility] Comment on above: Performed By: #### A COLLIN, MG, BMP, ADIFF, GFR, CBC, HFP #### [place] [address] Potassium [Moles/Vol] 4.1 mmol/L Normal 3.5-5.0 [facility] Comment on above: Performed By: #### A COLLIN, MG, BMP, ADIFF, GFR, CBC, HFP #### [place] [id number] Sodium [Moles/Vol] 143 mmol/L Normal 136-145 [facility] Comment on above: Performed By: #### A COLLIN, MG, BMP, ADIFF, GFR, CBC, HFP #### [place] [address] Urea nitrogen [Mass/Vol] 21.0 mg/dL Normal 8.0-22.0 [facility] Comment on above: Performed By: #### A COLLIN, MG, BMP, ADIFF, GFR, CBC, HFP #### [place] [id number] CBCon 07-27-2024 Erythrocyte distribution width (RBC) [Ratio] 14.7 % Normal 11.5-15.5 [facility] Comment on above: Performed By: #### A COLLIN, MG, BMP, ADIFF, GFR, CBC, HFP #### [place] [address] Hematocrit (Bld) [Volume fraction] 35.6 % Normal 34.0-46.0 [facility] Comment on above: Performed By: #### A COLLIN, MG, BMP, ADIFF, GFR, CBC, HFP #### [place] [address] Hgb 11.9 G/dL Low 12.0-16.0 [facility] Comment on above: Performed By: #### A COLLIN, MG, BMP, ADIFF, GFR, CBC, HFP #### [place] [address] MCH (RBC) [Entitic mass] 30.1 pg Normal 27.0-33.0 [facility] Comment on above: Performed By: #### A COLLIN, MG, BMP, ADIFF, GFR, CBC, HFP #### [place] [address] MCHC 33.5 G/dL Normal 32.0-36.0 [facility] Comment on above: Performed By: #### A COLLIN, MG, BMP, ADIFF, GFR, CBC, HFP #### [place] [address] MCV (RBC) [Entitic vol] 89.9 fL Normal 80.0-99.0 [facility] Comment on above: Performed By: #### A COLLIN, MG, BMP, ADIFF, GFR, CBC, HFP #### [place] [address] Platelet 322 10 3/mcL Normal 150-450 [facility] Comment on above: Performed By: #### A COLLIN, MG, BMP, ADIFF, GFR, CBC, HFP #### [place] [address] Platelet mean volume (Bld) [Entitic vol] 7.8 fL Normal 6.6-10.5 [facility] Comment on above: Performed By: #### A COLLIN, MG, BMP, ADIFF, GFR, CBC, HFP #### [place] [address] RBC 3.96 10 6/mcL Low 4.10-5.30 [facility] Comment on above: Performed By: #### A COLLIN, MG, BMP, ADIFF, GFR, CBC, HFP #### [place] [id number] WBC 9.0 10 3/mcL Normal 4.5-10.8 [facility] Comment on above: Performed By: #### A COLLIN, MG, BMP, ADIFF, GFR, CBC, HFP #### [place] [id number] [place] [address] LABORATORYOrdered By: SYSTEM SYSTEM on 07-27-2024 Basophils [...] above: Interpretive Data: T esting performed on homedeco2u analyzer using enzymatic creatinine methodology. Electrolyte Balance [...] Basophil, Absolute 0.1 10 3/mcL Normal 0.0-0.2 [facility] Comment on above: Performed By: #### M DW, MG, GFR, BMP, CBC, ANEU, TROPHS, ADIFF #### [address] [address] Basophils/100 WBC (Bld) 1.1 % Normal 0.0-2.5 [facility] Comment on above: Performed By: #### M DW, MG, GFR, BMP, CBC, ANEU, TROPHS, ADIFF #### [address] [address] Eosinophil, Absolute 0.3 10 3/mcL Normal 0.0-0.7 [facility] Comment on above: Performed By: #### M DW, MG, GFR, BMP, CBC, ANEU, TROPHS, ADIFF #### [address] [address] Eosinophils/100 WBC (Bld) 2.0 % Normal 0.0-7.0 [facility] Comment on above: Performed By: #### M DW, MG, GFR, BMP, CBC, ANEU, TROPHS, ADIFF #### [address] [address] Lymphocyte, Absolute 1.1 10 3/mcL Normal 0.9-4.3 [facility] Comment on above: Performed By: #### M DW, MG, GFR, BMP, CBC, ANEU, TROPHS, ADIFF #### [address] [address] Lymphocytes/100 WBC (Bld) 8.8 % Low 20.0-40.0 [facility] Comment on above: Performed By: #### M DW, MG, GFR, BMP, CBC, ANEU, TROPHS, ADIFF #### [address] [address] Monocyte, Absolute 0.8 10 3/mcL Normal 0.1-1.4 [facility] Comment on above: Performed By: #### M DW, MG, GFR, BMP, CBC, ANEU, TROPHS, ADIFF #### [place] [address] [place], [place] [address] Monocytes/100 WBC (Bld) 6.7 % Normal 2.0-13.0 [facility] Comment on above: Performed By: #### M DW, MG, GFR, BMP, CBC, ANEU, TROPHS, ADIFF #### [place] [address] [place], [place] [address] Neutrophils/100 WBC (Bld) 81.4 % High 50.0-75.0 [facility] Comment on above: Performed By: #### M DW, MG, GFR, BMP, CBC, ANEU, TROPHS, ADIFF #### [address] [address] .GFRon 07-05-2024 Estimated Glomerular Filtration Rate 53 ml/min/1.73sqm Normal [facility] Comment on above: Result Comment: Stages [...] GFR, BMP, CBC, ANEU, TROPHS, ADIFF #### [place] [address] [place], [place] [address] .MDWon 07-05-2024 Monocyte Distribution Width 16.20 Normal 0.00-20.00 [facility] Comment on above: Result Comment: For ED adult patients suspected of sepsis, MDW<=20.0 does not rule out sepsis or risk of sepsis Performed By: #### M DW, MG, GFR, BMP, CBC, ANEU, TROPHS, ADIFF #### [address] [address] .NEUABSon 07-05-2024 Neutrophil, Absolute 10.2 10 3/mcL High 2.3-8.1 [facility] Comment on above: Performed By: #### M DW, MG, GFR, BMP, CBC, ANEU, TROPHS, ADIFF #### [address] [address] BMPon 07-05-2024 BUN/Creatinine Ratio 23 ratio Normal 7-27 [facility] Comment on above: Performed By: #### M DW, MG, GFR, BMP, CBC, ANEU, TROPHS, ADIFF #### [address] [address] Calcium [Mass/Vol] 9.8 mg/dL Normal 8.4-10.2 [facility] Comment on above: Performed By: #### M DW, MG, GFR, BMP, CBC, ANEU, TROPHS, ADIFF #### [address] [address] Chloride [Moles/Vol] 101 mmol/L Normal 98-107 [facility] Comment on above: Performed By: #### M DW, MG, GFR, BMP, CBC, ANEU, TROPHS, ADIFF #### [address] [address] CO2 [Moles/Vol] 32 mmol/L High 23-31 [facility] Comment on above: Performed By: #### M DW, MG, GFR, BMP, CBC, ANEU, TROPHS, ADIFF #### [place] [id number] Creatinine [Mass/Vol] 1.06 mg/dL High 0.55-1.02 [facility] Comment on above: Result Comment: Test ing performed on Siemens Dimension EXL analyzer using a modified kinetic Josse technique. Performed By: #### M DW, MG, GFR, BMP, CBC, ANEU, TROPHS, ADIFF #### [address] [address] Electrolyte Balance 6.0 mEq/L Normal 4.0-15.0 [facility] Comment on above: Performed By: #### M DW, MG, GFR, BMP, CBC, ANEU, TROPHS, ADIFF #### [address] [address] Glucose [Mass/Vol] 101 mg/dL Normal 83-110 [facility] Comment on above: Performed By: #### M DW, MG, GFR, BMP, CBC, ANEU, TROPHS, ADIFF #### [address] [address] Potassium [Moles/Vol] 4.1 mmol/L Normal 3.5-5.1 [facility] Comment on above: Performed By: #### M DW, MG, GFR, BMP, CBC, ANEU, TROPHS, ADIFF #### [address] [address] Sodium [Moles/Vol] 139 mmol/L Normal 136-145 [facility] Comment on above: Performed By: #### M DW, MG, GFR, BMP, CBC, ANEU, TROPHS, ADIFF #### [address] [address] Urea nitrogen [Mass/Vol] 24 mg/dL High 7-18 [facility] Comment on above: Performed By: #### M DW, MG, GFR, BMP, CBC, ANEU, TROPHS, ADIFF #### [address] [address] CBCon 07-05-2024 Erythrocyte distribution width (RBC) [Ratio] 14.6 % Normal 11.5-15.5 [facility] Comment on above: Performed By: #### M DW, MG, GFR, BMP, CBC, ANEU, TROPHS, ADIFF #### [address] [address] Hematocrit (Bld) [Volume fraction] 38.7 % Normal 34.0-46.0 [facility] Comment on above: Performed By: #### M DW, MG, GFR, BMP, CBC, ANEU, TROPHS, ADIFF #### [place] [address] Hgb 13.0 G/dL Normal 12.0-16.0 [facility] Comment on above: Performed By: #### M DW, MG, GFR, BMP, CBC, ANEU, TROPHS, ADIFF #### [place] [address] MCH (RBC) [Entitic mass] 29.8 pg Normal 27.0-33.0 [facility] Comment on above: Performed By: #### M DW, MG, GFR, BMP, CBC, ANEU, TROPHS, ADIFF #### [place] [address] MCHC 33.7 G/dL Normal 32.0-36.0 [facility] Comment on above: Performed By: #### M DW, MG, GFR, BMP, CBC, ANEU, TROPHS, ADIFF #### [place] [address] MCV (RBC) [Entitic vol] 88.4 fL Normal 80.0-99.0 [facility] Comment on above: Performed By: #### M DW, MG, GFR, BMP, CBC, ANEU, TROPHS, ADIFF #### [place] [address] Platelet 378 10 3/mcL Normal 150-450 [facility] Comment on above: Performed By: #### M DW, MG, GFR, BMP, CBC, ANEU, TROPHS, ADIFF #### [place] [address] Platelet mean volume (Bld) [Entitic vol] 7.4 fL Normal 6.6-10.5 [facility] Comment on above: Performed By: #### M DW, MG, GFR, BMP, CBC, ANEU, TROPHS, ADIFF #### [place] [address] RBC 4.37 10 6/mcL Normal 4.10-5.30 [facility] Comment on above: Performed By: #### M DW, MG, GFR, BMP, CBC, ANEU, TROPHS, ADIFF #### [address] [address] WBC 12.5 10 3/mcL High 4.5-10.8 [facility] Comment on above: Performed By: #### M DW, MG, GFR, BMP, CBC, ANEU, TROPHS, ADIFF #### [address] [address] MGon 07-05-2024 Magnesium [Mass/Vol] 2.2 mg/dL Normal 1.8-2.4 [facility] Comment on above: Performed By: #### M DW, MG, GFR, BMP, CBC, ANEU, TROPHS, ADIFF #### [address] [address] TROPHSon 07-05-2024 High Sensitivity Troponin I 142 ng/L High [address] Comment on above: Result Comment: High Sensitive Troponin I Reference Ranges: Female: 0-51 ng/L Male: 0-76 ng/L Testing performed on [employer] using a homogeneous sandwich chemiluminescent immunoassay based on [employer] technology. Performed By: #### M DW, MG, GFR, BMP, CBC, ANEU, TROPHS, ADIFF #### [address] [address] High Sensitivity Troponin I 146 ng/L High [address] [place] [address] Comment on above: Result Comment: High Sensitive Troponin I Reference Ranges: Female: 0-51 ng/L Male: 0-76 ng/L Testing performed on [employer] using a homogeneous sandwich chemiluminescent immunoassay based on [employer] technology. Performed By: #### M DW, MG, GFR, BMP, CBC, ANEU, TROPHS, ADIFF #### [address] [address] XR CHEST 2 VIEWSon XR CHEST 2 [...] 07/05/2024 3:02:15 PM Ordering Provider: REMIGIO Mercado [facility] AMIODon 07-04-2024 Amiodarone Lvl 954 ng/mL Low [id number] [facility] Comment on above: Order Comment: Abdiaziz in venipuncture to recollect 06/29/24 800am Performed By: #### A COLLIN, MG, BMP, ADIFF, GFR, CBC, HFP #### [facility] [address] [place] [address] Desethylami Lvl 795 ng/mL Normal [facility] Comment on above: Order Comment: Abdiaziz in venipuncture to recollect 06/29/24 800am Result Comment: Note : To convert from ng/ml to ug/ml, divide the result by 1000. Reference range (amiodarone): 1.00-2.50 ug/mL. This test was developed and its performance characteristics determined by [employer]. It has not been cleared or approved by the Food and Drug Administration. Performed At: [employer] [address] [place] [id number] Xavier Frost [facility] Ph:[phone] Performed By: #### A COLLIN, MG, BMP, ADIFF, GFR, CBC, HFP #### [address] [address] .Auto Diffon 07-01-2024 Basophil, Absolute 0.1 10 3/mcL Normal 0.0-0.3 [facility] Comment on above: Performed By: #### A COLLIN, MG, BMP, ADIFF, GFR, CBC, HFP #### [address] [address] Basophils/100 WBC (Bld) 1.0 % Normal 0.0-2.5 [facility] Comment on above: Performed By: #### A COLLIN, MG, BMP, ADIFF, GFR, CBC, HFP #### [address] [address] Eosinophil, Absolute 0.3 10 3/mcL Normal 0.0-0.7 [facility] Comment on above: Performed By: #### A COLLIN, MG, BMP, ADIFF, GFR, CBC, HFP #### [address] [address] Eosinophils/100 WBC (Bld) 3.1 % Normal 0.0-6.0 [facility] Comment on above: Performed By: #### A COLLIN, MG, BMP, ADIFF, GFR, CBC, HFP #### [address] [address] Lymphocyte, Absolute 0.9 10 3/mcL Normal 0.9-4.3 [facility] Comment on above: Performed By: #### A COLLIN, MG, BMP, ADIFF, GFR, CBC, HFP #### [address] [address] Lymphocytes/100 WBC (Bld) 9.1 % Low 20.0-40.0 [facility] Comment on above: Performed By: #### A COLLIN, MG, BMP, ADIFF, GFR, CBC, HFP #### [address] [address] Monocyte, Absolute 0.8 10 3/mcL Normal 0.1-1.4 [facility] Comment on above: Performed By: #### A COLLIN, MG, BMP, ADIFF, GFR, CBC, HFP #### [address] [address] Monocytes/100 WBC (Bld) 8.6 % Normal 2.0-13.0 [facility] Comment on above: Performed By: #### A COLLIN, MG, BMP, ADIFF, GFR, CBC, HFP #### [address] [address] Neutrophils/100 WBC (Bld) 78.2 % High 50.0-75.0 [facility] Comment on above: Performed By: #### A COLLIN, MG, BMP, ADIFF, GFR, CBC, HFP #### [address] [address] .GFRon 07-01-2024 Estimated Glomerular Filtration Rate 40 ml/min/1.73sqm Normal [facility] Comment on above: Result [...] By: #### C MP, MG, GFR #### [address] [address] .NEUABSon 07-01-2024 Neutrophil, Absolute 7.7 10 3/mcL Normal 2.3-8.1 [facility] Comment on above: Performed By: #### C MP, MG, GFR #### [address] [address] BMPon 07-01-2024 BUN/Creatinine Ratio 25.4 ratio High 10.0-22.0 [facility] Comment on above: Performed By: #### C MP, MG, GFR #### [address] [address] Calcium [Mass/Vol] 9.4 mg/dL Normal 8.7-10.4 [facility] Comment on above: Performed By: #### C MP, MG, GFR #### [address] [address] Chloride [Moles/Vol] 101 mmol/L Normal 98-110 [facility] Comment on above: Performed By: #### C MP, MG, GFR #### [address] [address] CO2 [Moles/Vol] 31 mmol/L Normal 22-32 [facility] Comment on above: Performed By: #### C MP, MG, GFR #### [address] [address] Creatinine [Mass/Vol] 1.34 mg/dL High 0.50-1.20 [facility] Comment on above: Result Comment: Test ing performed on homedeco2u analyzer using enzymatic creatinine methodology. Performed By: #### C MP, MG, GFR #### [place] [id number] Electrolyte Balance 4.0 mEq/L Normal 4.0-15.0 [facility] Comment on above: Performed By: #### C MP, MG, GFR #### [place] [id number] Glucose [Mass/Vol] 90 mg/dL Normal 82-115 [facility] Comment on above: Performed By: #### C MP, MG, GFR #### [place] [id number] Potassium [Moles/Vol] 4.1 mmol/L Normal 3.5-5.0 [facility] Comment on above: Performed By: #### C MP, MG, GFR #### [place] [id number] Sodium [Moles/Vol] 136 mmol/L Normal 136-145 [facility] Comment on above: Performed By: #### C MP, MG, GFR #### [address] [address] Urea nitrogen [Mass/Vol] 34.0 mg/dL High 8.0-22.0 [facility] Comment on above: Performed By: #### C MP, MG, GFR #### [address] [address] CBCon 03-23-2025 Erythrocyte distribution width (RBC) [Ratio] 14.8 % Normal 11.5-15.5 [facility] Comment on above: Performed By: #### A COLLIN, MG, BMP, ADIFF, GFR, CBC, HFP #### [place] [address] Hematocrit (Bld) [Volume fraction] 35.7 % Normal 34.0-46.0 [facility] Comment on above: Performed By: #### A COLLIN, MG, BMP, ADIFF, GFR, CBC, HFP #### [place] [address] Hgb 12.3 G/dL Normal 12.0-16.0 [facility] Comment on above: Performed By: #### A COLLIN, MG, BMP, ADIFF, GFR, CBC, HFP #### [place] [address] MCH (RBC) [Entitic mass] 30.8 pg Normal 27.0-33.0 [facility] Comment on above: Performed By: #### A COLLIN, MG, BMP, ADIFF, GFR, CBC, HFP #### [place] [address] MCHC 34.4 G/dL Normal 32.0-36.0 [facility] Comment on above: Performed By: #### A COLLIN, MG, BMP, ADIFF, GFR, CBC, HFP #### [place] [address] MCV (RBC) [Entitic vol] 89.5 fL Normal 80.0-99.0 [facility] Comment on above: Performed By: #### A COLLIN, MG, BMP, ADIFF, GFR, CBC, HFP #### [place] [address] Platelet 302 10 3/mcL Normal 150-450 [facility] Comment on above: Performed By: #### A COLLIN, MG, BMP, ADIFF, GFR, CBC, HFP #### [place] [address] Platelet mean volume (Bld) [Entitic vol] 7.4 fL Normal 6.6-10.5 [facility] Comment on above: Performed By: #### A COLLIN, MG, BMP, ADIFF, GFR, CBC, HFP #### [place] [id number] [place] [address] RBC 3.99 10 6/mcL Low 4.10-5.30 [facility] Comment on above: Performed By: #### A COLLIN, MG, BMP, ADIFF, GFR, CBC, HFP #### [address] [address] WBC 9.8 10 3/mcL Normal 4.5-10.8 [facility] Comment on above: Performed By: #### A COLLIN, MG, BMP, ADIFF, GFR, CBC, HFP #### [address] [address] LABORATORYOrdered By: SYSTEM SYSTEM on 07-01-2024 Basophils [...] above: Interpretive Data: T esting performed on homedeco2u analyzer using enzymatic creatinine methodology. Electrolyte Balance [...] 07-01-2024 Magnesium [Mass/Vol] 2.4 mg/dL Normal 1.6-2.4 [facility] Comment on above: Performed By: #### C MP, MG, GFR #### [address] [address] .Auto Diffon 06-30-2024 Basophil, Absolute 0.1 10 3/mcL Normal 0.0-0.3 [facility] Comment on above: Performed By: #### C MP, MG, GFR #### [address] [address] Basophils/100 WBC (Bld) 0.9 % Normal 0.0-2.5 [facility] Comment on above: Performed By: #### C MP, MG, GFR #### [address] [address] Eosinophil, Absolute 0.3 10 3/mcL Normal 0.0-0.7 [facility] Comment on above: Performed By: #### C MP, MG, GFR #### [address] [address] Eosinophils/100 WBC (Bld) 2.0 % Normal 0.0-6.0 [facility] Comment on above: Performed By: #### C MP, MG, GFR #### [address] [address] Lymphocyte, Absolute 1.2 10 3/mcL Normal 0.9-4.3 [facility] Comment on above: Performed By: #### C MP, MG, GFR #### [address] [address] Lymphocytes/100 WBC (Bld) 9.6 % Low 20.0-40.0 [facility] Comment on above: Performed By: #### C MP, MG, GFR #### [address] [address] Monocyte, Absolute 1.0 10 3/mcL Normal 0.1-1.4 [facility] Comment on above: Performed By: #### C MP, MG, GFR #### [address] [address] Monocytes/100 WBC (Bld) 7.6 % Normal 2.0-13.0 [facility] Comment on above: Performed By: #### C MP, MG, GFR #### [address] [address] Neutrophils/100 WBC (Bld) 79.9 % High 50.0-75.0 [facility] Comment on above: Performed By: #### C MP, MG, GFR #### [address] [address] Basophil, Absolute 0.1 10 3/mcL Normal 0.0-0.3 [facility] Comment on above: Performed By: #### G FR, BMP #### [address] [address] Basophils/100 WBC (Bld) 0.9 % Normal 0.0-2.5 [facility] Comment on above: Performed By: #### G FR, BMP #### [address] [address] Eosinophil, Absolute 0.3 10 3/mcL Normal 0.0-0.7 [facility] Comment on above: Performed By: #### G FR, BMP #### [address] [address] Eosinophils/100 WBC (Bld) 2.5 % Normal 0.0-6.0 [facility] Comment on above: Performed By: #### G FR, BMP #### [facility] [address] [place] [address] Lymphocyte, Absolute 1.2 10 3/mcL Normal 0.9-4.3 [facility] Comment on above: Performed By: #### G FR, BMP #### [facility] [address] [place] [address] Lymphocytes/100 WBC (Bld) 10.3 % Low 20.0-40.0 [facility] Comment on above: Performed By: #### G FR, BMP #### [facility] [address] [place] [address] Monocyte, Absolute 1.0 10 3/mcL Normal 0.1-1.4 [facility] Comment on above: Performed By: #### G FR, BMP #### [facility] [address] [place] [address] Monocytes/100 WBC (Bld) 9.0 % Normal 2.0-13.0 [facility] Comment on above: Performed By: #### G FR, BMP #### [facility] [address] [place] [address] Neutrophils/100 WBC (Bld) 77.3 % High 50.0-75.0 [facility] Comment on above: Performed By: #### G FR, BMP #### [facility] [address] [place] [address] .GFRon 06-30-2024 Estimated Glomerular Filtration Rate 33 ml/min/1.73sqm Normal [facility] Comment on above: Result [...] Performed By: #### G FR, BMP #### [address] [address] .NEUABSon 06-30-2024 Neutrophil, Absolute 10.1 10 3/mcL High 2.3-8.1 [facility] Comment on above: Performed By: #### C MP, MG, GFR #### [place] [id number] Neutrophil, Absolute 8.8 10 3/mcL High 2.3-8.1 [facility] Comment on above: Performed By: #### G FR, BMP #### [address] 06-30-2024 BUN/Creatinine Ratio 27.2 ratio High 10.0-22.0 [facility] Comment on above: Performed By: #### G FR, BMP #### [place] [address] Calcium [Mass/Vol] 8.8 mg/dL Normal 8.7-10.4 [facility] Comment on above: Performed By: #### G FR, BMP #### [address] [address] Chloride [Moles/Vol] 100 mmol/L Normal 98-110 [facility] Comment on above: Performed By: #### G FR, BMP #### [place] [id number] CO2 [Moles/Vol] 31 mmol/L Normal 22-32 [facility] Comment on above: Performed By: #### G FR, BMP #### [address] [address] Creatinine [Mass/Vol] 1.58 mg/dL High 0.50-1.20 [facility] Comment on above: Result Comment: Test ing performed on homedeco2u analyzer using enzymatic creatinine methodology. Performed By: #### G FR, BMP #### [address] [address] Electrolyte Balance 5.0 mEq/L Normal 4.0-15.0 [facility] Comment on above: Performed By: #### G FR, BMP #### [address] [address] Glucose [Mass/Vol] 95 mg/dL Normal 82-115 [facility] Comment on above: Performed By: #### G FR, BMP #### [address] [address] Potassium [Moles/Vol] 4.2 mmol/L Normal 3.5-5.0 [facility] Comment on above: Performed By: #### G FR, BMP #### [address] [address] Sodium [Moles/Vol] 136 mmol/L Normal 136-145 [facility] Comment on above: Performed By: #### G FR, BMP #### [address] [address] Urea nitrogen [Mass/Vol] 43.0 mg/dL High 8.0-22.0 [facility] Comment on above: Performed By: #### G FR, BMP #### [address] [address] CBCon 06-30-2024 Erythrocyte distribution width (RBC) [Ratio] 14.9 % Normal 11.5-15.5 [facility] Comment on above: Performed By: #### C MP, MG, GFR #### [address] [address] Hematocrit (Bld) [Volume fraction] 35.9 % Normal 34.0-46.0 [facility] Comment on above: Performed By: #### C MP, MG, GFR #### [address] [address] Hgb 12.2 G/dL Normal 12.0-16.0 [facility] Comment on above: Performed By: #### C MP, MG, GFR #### [address] [address] MCH (RBC) [Entitic mass] 30.0 pg Normal 27.0-33.0 [facility] Comment on above: Performed By: #### C MP, MG, GFR #### [place] [id number] MCHC 33.9 G/dL Normal 32.0-36.0 [facility] Comment on above: Performed By: #### C MP, MG, GFR #### [place] [id number] MCV (RBC) [Entitic vol] 88.4 fL Normal 80.0-99.0 [facility] Comment on above: Performed By: #### C MP, MG, GFR #### [place] [address] Platelet 331 10 3/mcL Normal 150-450 [facility] Comment on above: Performed By: #### C MP, MG, GFR #### [place] [address] Platelet mean volume (Bld) [Entitic vol] 7.6 fL Normal 6.6-10.5 [facility] Comment on above: Performed By: #### C MP, MG, GFR #### [place] [address] RBC 4.06 10 6/mcL Low 4.10-5.30 [facility] Comment on above: Performed By: #### C MP, MG, GFR #### [place] [id number] WBC 12.6 10 3/mcL High 4.5-10.8 [facility] Comment on above: Performed By: #### C MP, MG, GFR #### [place] [address] Erythrocyte distribution width (RBC) [Ratio] 14.9 % Normal 11.5-15.5 [facility] Comment on above: Performed By: #### G FR, BMP #### [place] [address] Hematocrit (Bld) [Volume fraction] 35.7 % Normal 34.0-46.0 [facility] Comment on above: Performed By: #### G FR, BMP #### [place] [address] Hgb 12.4 G/dL Normal 12.0-16.0 [facility] Comment on above: Performed By: #### G , BMP #### [place] [address] MCH (RBC) [Entitic mass] 31.1 pg Normal 27.0-33.0 [facility] Comment on above: Performed By: #### G FR, BMP #### [place] [address] MCHC 34.6 G/dL Normal 32.0-36.0 [facility] Comment on above: Performed By: #### G FR, BMP #### [place] [address] MCV (RBC) [Entitic vol] 90.0 fL Normal 80.0-99.0 [facility] Comment on above: Performed By: #### G FR, BMP #### [place] [address] Platelet 329 10 3/mcL Normal 150-450 [facility] Comment on above: Performed By: #### G , BMP #### [place] [address] Platelet mean volume (Bld) [Entitic vol] 7.2 fL Normal 6.6-10.5 [facility] Comment on above: Performed By: #### G FR, BMP #### [place] [address] RBC 3.97 10 6/mcL Low 4.10-5.30 [facility] Comment on above: Performed By: #### G FR, BMP #### [place] [address] WBC 11.4 10 3/mcL High 4.5-10.8 [facility] Comment on above: Performed By: #### G FR, BMP #### [place] [address] CT THORAX W/O CONTRASTon CT THORAX W/O [...] Ordering Provider: ISAURA JACKSON [facility] MAIN LABORATORYOrdered By: SYSTEM SYSTEM on 06-30-2024 [...] above: Interpretive Data: T esting performed on homedeco2u analyzer using enzymatic creatinine methodology. Electrolyte Balance [...] 06-30-2024 Magnesium [Mass/Vol] 2.2 mg/dL Normal 1.6-2.4 [facility] Comment on above: Performed By: #### G FR, BMP #### [address] [address] .Auto Diffon 06-29-2024 Basophil, Absolute 0.1 10 3/mcL Normal 0.0-0.3 [facility] Comment on above: Performed By: #### A COLLIN, MG, BMP, ADIFF, GFR, CBC, HFP #### [address] [address] Basophils/100 WBC (Bld) 0.9 % Normal 0.0-2.5 [facility] Comment on above: Performed By: #### A COLLIN, MG, BMP, ADIFF, GFR, CBC, HFP #### [address] [address] Eosinophil, Absolute 0.2 10 3/mcL Normal 0.0-0.7 [facility] Comment on above: Performed By: #### A COLLIN, MG, BMP, ADIFF, GFR, CBC, HFP #### [address] [address] Eosinophils/100 WBC (Bld) 2.2 % Normal 0.0-6.0 [facility] Comment on above: Performed By: #### A COLLIN, MG, BMP, ADIFF, GFR, CBC, HFP #### [address] [address] Lymphocyte, Absolute 1.1 10 3/mcL Normal 0.9-4.3 [facility] Comment on above: Performed By: #### A COLLIN, MG, BMP, ADIFF, GFR, CBC, HFP #### [address] [address] Lymphocytes/100 WBC (Bld) 9.6 % Low 20.0-40.0 [facility] Comment on above: Performed By: #### A COLLIN, MG, BMP, ADIFF, GFR, CBC, HFP #### [address] [address] Monocyte, Absolute 0.9 10 3/mcL Normal 0.1-1.4 [facility] Comment on above: Performed By: #### A COLLIN, MG, BMP, ADIFF, GFR, CBC, HFP #### [address] [address] Monocytes/100 WBC (Bld) 7.9 % Normal 2.0-13.0 [facility] Comment on above: Performed By: #### A COLLIN, MG, BMP, ADIFF, GFR, CBC, HFP #### [address] [address] Neutrophils/100 WBC (Bld) 79.4 % High 50.0-75.0 [facility] Comment on above: Performed By: #### A COLLIN, MG, BMP, ADIFF, GFR, CBC, HFP #### [address] [address] .GFRon 06-29-2024 Estimated Glomerular Filtration Rate 37 ml/min/1.73sqm Normal [facility] Comment on above: Result [...] MG, BMP, ADIFF, GFR, CBC, HFP #### [address] [address] .NEUABSon 06-29-2024 Neutrophil, Absolute 8.7 10 3/mcL High 2.3-8.1 [facility] Comment on above: Performed By: #### A COLLIN, MG, BMP, ADIFF, GFR, CBC, HFP #### [address] [address] [facility] BUN/Creatinine Ratio 20.4 ratio Normal 10.0-22.0 [facility] Comment on above: Performed By: #### A COLLIN, MG, BMP, ADIFF, GFR, CBC, HFP #### [address] [address] Calcium [Mass/Vol] 9.5 mg/dL Normal 8.7-10.4 [facility] Comment on above: Performed By: #### A COLLIN, MG, BMP, ADIFF, GFR, CBC, HFP #### [address] [address] Chloride [Moles/Vol] 98 mmol/L Normal 98-110 [facility] Comment on above: Performed By: #### A COLLIN, MG, BMP, ADIFF, GFR, CBC, HFP #### [address] [address] CO2 [Moles/Vol] 34 mmol/L High 22-32 [facility] Comment on above: Performed By: #### A COLLIN, MG, BMP, ADIFF, GFR, CBC, HFP #### [address] [address] Creatinine [Mass/Vol] 1.42 mg/dL High 0.50-1.20 [facility] Comment on above: Result Comment: Test ing performed on homedeco2u analyzer using enzymatic creatinine methodology. Performed By: #### A COLLIN, MG, BMP, ADIFF, GFR, CBC, HFP #### [address] [address] Electrolyte Balance 7.0 mEq/L Normal 4.0-15.0 [facility] Comment on above: Performed By: #### A COLLIN, MG, BMP, ADIFF, GFR, CBC, HFP #### [address] [address] Glucose [Mass/Vol] 83 mg/dL Normal 82-115 [facility] Comment on above: Performed By: #### A COLLIN, MG, BMP, ADIFF, GFR, CBC, HFP #### [address] [address] Potassium [Moles/Vol] 3.3 mmol/L Low 3.5-5.0 [facility] Comment on above: Performed By: #### A COLLIN, MG, BMP, ADIFF, GFR, CBC, HFP #### [address] [address] Sodium [Moles/Vol] 139 mmol/L Normal 136-145 [facility] Comment on above: Performed By: #### A COLLIN, MG, BMP, ADIFF, GFR, CBC, HFP #### [address] [address] Urea nitrogen [Mass/Vol] 29.0 mg/dL High 8.0-22.0 [facility] Comment on above: Performed By: #### A COLLIN, MG, BMP, ADIFF, GFR, CBC, HFP #### [address] [address] CBCon 06-29-2024 Erythrocyte distribution width (RBC) [Ratio] 15.0 % Normal 11.5-15.5 [facility] Comment on above: Performed By: #### A COLLIN, MG, BMP, ADIFF, GFR, CBC, HFP #### [place] [address] Hematocrit (Bld) [Volume fraction] 37.7 % Normal 34.0-46.0 [facility] Comment on above: Performed By: #### A COLLIN, MG, BMP, ADIFF, GFR, CBC, HFP #### [place] [address] Hgb 13.2 G/dL Normal 12.0-16.0 [facility] Comment on above: Performed By: #### A COLLIN, MG, BMP, ADIFF, GFR, CBC, HFP #### [place] [address] MCH (RBC) [Entitic mass] 30.9 pg Normal 27.0-33.0 [facility] Comment on above: Performed By: #### A COLLIN, MG, BMP, ADIFF, GFR, CBC, HFP #### [place] [address] MCHC 35.0 G/dL Normal 32.0-36.0 [facility] Comment on above: Performed By: #### A COLLIN, MG, BMP, ADIFF, GFR, CBC, HFP #### [place] [address] MCV (RBC) [Entitic vol] 88.3 fL Normal 80.0-99.0 [facility] Comment on above: Performed By: #### A COLLIN, MG, BMP, ADIFF, GFR, CBC, HFP #### [place] [address] Platelet 342 10 3/mcL Normal 150-450 [facility] Comment on above: Performed By: #### A COLLIN, MG, BMP, ADIFF, GFR, CBC, HFP #### [place] [address] Platelet mean volume (Bld) [Entitic vol] 7.3 fL Normal 6.6-10.5 [facility] Comment on above: Performed By: #### A COLLIN, MG, BMP, ADIFF, GFR, CBC, HFP #### [place] [id number] [place] [address] RBC 4.27 10 6/mcL Normal 4.10-5.30 [facility] Comment on above: Performed By: #### A COLLIN, MG, BMP, ADIFF, GFR, CBC, HFP #### [place] [id number] [place] [address] WBC 11.0 10 3/mcL High 4.5-10.8 [facility] Comment on above: Performed By: #### A COLLIN, MG, BMP, ADIFF, GFR, CBC, HFP #### [address] [address] LABORATORYOrdered By: SYSTEM SYSTEM on 06-29-2024 Calcium [...] above: Interpretive Data: T esting performed on homedeco2u analyzer using enzymatic creatinine methodology. Electrolyte Balance [...] 06-29-2024 Magnesium [Mass/Vol] 2.2 mg/dL Normal 1.6-2.4 [facility] Comment on above: Performed By: #### A COLLIN, MG, BMP, ADIFF, GFR, CBC, HFP #### [place] [address] .Auto Diffon 06-28-2024 Basophil, Absolute 0.0 10 3/mcL Normal 0.0-0.2 [facility] Comment on above: Performed By: #### M DW, MG, GFR, BMP, CBC, ANEU, TROPHS, ADIFF #### [address] [address] Basophils/100 WBC (Bld) 0.3 % Normal 0.0-2.5 [facility] Comment on above: Performed By: #### M DW, MG, GFR, BMP, CBC, ANEU, TROPHS, ADIFF #### [address] [address] Eosinophil, Absolute 0.2 10 3/mcL Normal 0.0-0.7 [facility] Comment on above: Performed By: #### M DW, MG, GFR, BMP, CBC, ANEU, TROPHS, ADIFF #### [address] [address] Eosinophils/100 WBC (Bld) 1.6 % Normal 0.0-7.0 [facility] Comment on above: Performed By: #### M DW, MG, GFR, BMP, CBC, ANEU, TROPHS, ADIFF #### [address] [address] Lymphocyte, Absolute 1.2 10 3/mcL Normal 0.9-4.3 [facility] Comment on above: Performed By: #### M DW, MG, GFR, BMP, CBC, ANEU, TROPHS, ADIFF #### [address] [address] Lymphocytes/100 WBC (Bld) 9.7 % Low 20.0-40.0 [facility] Comment on above: Performed By: #### M DW, MG, GFR, BMP, CBC, ANEU, TROPHS, ADIFF #### [address] [address] Monocyte, Absolute 0.9 10 3/mcL Normal 0.1-1.4 [facility] Comment on above: Performed By: #### M DW, MG, GFR, BMP, CBC, ANEU, TROPHS, ADIFF #### [address] [address] Monocytes/100 WBC (Bld) 7.4 % Normal 2.0-13.0 [facility] Comment on above: Performed By: #### M DW, MG, GFR, BMP, CBC, ANEU, TROPHS, ADIFF #### [address] [address] Neutrophils/100 WBC (Bld) 80.8 % High 50.0-75.0 [facility] Comment on above: Performed By: #### M DW, MG, GFR, BMP, CBC, ANEU, TROPHS, ADIFF #### [address] [address] .GFRon 06-28-2024 Estimated Glomerular Filtration Rate 42 ml/min/1.73sqm Normal [facility] Comment on above: Result Comment: Stages [...] GFR, BMP, CBC, ANEU, TROPHS, ADIFF #### [address] [address] .MDWon 06-28-2024 Monocyte Distribution Width Not tested Normal 0.00-20.00 [facility] Comment on above: Result Comment: MDW testing unable to be performed on [id number] instrumentation. Performed By: #### M DW, MG, GFR, BMP, CBC, ANEU, TROPHS, ADIFF #### [address] [address] .NEUABSon 06-28-2024 Neutrophil, Absolute 10.2 10 3/mcL High 2.3-8.1 [facility] Comment on above: Performed By: #### M DW, MG, GFR, BMP, CBC, ANEU, TROPHS, ADIFF #### [address] [address] BMPon 06-28-2024 BUN/Creatinine Ratio 23 ratio Normal 7-27 [facility] Comment on above: Performed By: #### M DW, MG, GFR, BMP, CBC, ANEU, TROPHS, ADIFF #### [address] [address] Calcium [Mass/Vol] 9.4 mg/dL Normal 8.4-10.2 [facility] Comment on above: Performed By: #### M DW, MG, GFR, BMP, CBC, ANEU, TROPHS, ADIFF #### [address] [address] Chloride [Moles/Vol] 101 mmol/L Normal 98-107 [facility] Comment on above: Performed By: #### M DW, MG, GFR, BMP, CBC, ANEU, TROPHS, ADIFF #### [address] [address] CO2 [Moles/Vol] 32 mmol/L High 23-31 [facility] Comment on above: Performed By: #### M DW, MG, GFR, BMP, CBC, ANEU, TROPHS, ADIFF #### [address] [address] Creatinine [Mass/Vol] 1.28 mg/dL High 0.55-1.02 [facility] Comment on above: Result Comment: Test ing performed on Siemens Dimension EXL analyzer using a modified kinetic Josse technique. Performed By: #### M DW, MG, GFR, BMP, CBC, ANEU, TROPHS, ADIFF #### [address] [address] Electrolyte Balance 6.0 mEq/L Normal 4.0-15.0 [facility] Comment on above: Performed By: #### M DW, MG, GFR, BMP, CBC, ANEU, TROPHS, ADIFF #### [address] [address] Glucose [Mass/Vol] 122 mg/dL High 83-110 [facility] Comment on above: Performed By: #### M DW, MG, GFR, BMP, CBC, ANEU, TROPHS, ADIFF #### [address] [address] Potassium [Moles/Vol] 3.7 mmol/L Normal 3.5-5.1 [facility] Comment on above: Performed By: #### M DW, MG, GFR, BMP, CBC, ANEU, TROPHS, ADIFF #### [address] [address] Sodium [Moles/Vol] 139 mmol/L Normal 136-145 [facility] Comment on above: Performed By: #### M DW, MG, GFR, BMP, CBC, ANEU, TROPHS, ADIFF #### [address] [address] Urea nitrogen [Mass/Vol] 29 mg/dL High 7-18 [facility] Comment on above: Performed By: #### M DW, MG, GFR, BMP, CBC, ANEU, TROPHS, ADIFF #### [address] [address] CBCon 06-28-2024 Erythrocyte distribution width (RBC) [Ratio] 14.4 % Normal 11.5-15.5 [facility] Comment on above: Performed By: #### M DW, MG, GFR, BMP, CBC, ANEU, TROPHS, ADIFF #### [address] [address] Hematocrit (Bld) [Volume fraction] 39.2 % Normal 34.0-46.0 [facility] Comment on above: Performed By: #### M DW, MG, GFR, BMP, CBC, ANEU, TROPHS, ADIFF #### [address] [address] Hgb 13.9 G/dL Normal 12.0-16.0 [facility] Comment on above: Performed By: #### M DW, MG, GFR, BMP, CBC, ANEU, TROPHS, ADIFF #### [address] [address] MCH (RBC) [Entitic mass] 31.0 pg Normal 27.0-33.0 [facility] Comment on above: Performed By: #### M DW, MG, GFR, BMP, CBC, ANEU, TROPHS, ADIFF #### [address] [address] MCHC 35.5 G/dL Normal 32.0-36.0 [facility] Comment on above: Performed By: #### M DW, MG, GFR, BMP, CBC, ANEU, TROPHS, ADIFF #### [address] [address] MCV (RBC) [Entitic vol] 87.2 fL Normal 80.0-99.0 [facility] Comment on above: Performed By: #### M DW, MG, GFR, BMP, CBC, ANEU, TROPHS, ADIFF #### [address] [address] Platelet 338 10 3/mcL Normal 150-450 [facility] Comment on above: Performed By: #### M DW, MG, GFR, BMP, CBC, ANEU, TROPHS, ADIFF #### [place] [address] Platelet mean volume (Bld) [Entitic vol] 7.1 fL Normal 6.6-10.5 [facility] Comment on above: Performed By: #### M DW, MG, GFR, BMP, CBC, ANEU, TROPHS, ADIFF #### [place] [address] RBC 4.49 10 6/mcL Normal 4.10-5.30 [facility] Comment on above: Performed By: #### M DW, MG, GFR, BMP, CBC, ANEU, TROPHS, ADIFF #### [place] [address] WBC 12.6 10 3/mcL High 4.5-10.8 [facility] Comment on above: Performed By: #### M DW, MG, GFR, BMP, CBC, ANEU, TROPHS, ADIFF #### [place] [address] CVFLURVon 06-28-2024 FLU A PCR Negative Normal Negative [facility] Comment on above: Performed By: #### M DW, MG, GFR, BMP, CBC, ANEU, TROPHS, ADIFF #### [place] [address] FLU B PCR Negative Normal Negative [facility] Comment on above: Performed By: #### M DW, MG, GFR, BMP, CBC, ANEU, TROPHS, ADIFF #### [place] [address] RSV PCR Negative Normal Negative [facility] Comment on above: Performed By: #### M DW, MG, GFR, BMP, CBC, ANEU, TROPHS, ADIFF #### [place] [address] SARS-CoV-2 (COVID-19) RNA MARISELA+probe Ql (Unsp spec) Negative Normal Negative [facility] Comment on above: Result Comment: Resu [...] GFR, BMP, CBC, ANEU, TROPHS, ADIFF #### [place] [address] LABORATORYOrdered By: SYSTEM SYSTEM on 06-28-2024 Troponin I.cardiac DL <= 0.01 ng/mL [Mass/Vol] 88 ng/L High 0 - 34 ng/L [facility] Comment on above: Interpretive Data: High Sensitive Troponin I Reference Ranges: Female: 0-34 ng/L Male: 0-54 ng/L Testing performed on EarLens analyzer using direct chemiluminescent technology. PBNPon 06-28-2024 Natriuretic peptide B (Bld) [Mass/Vol] 8302 pg/mL High 0-450 [facility] Comment on above: Result Comment: NT-p roBNP results of less than 300 pg/mL effectively rules out acute congestive heart failure with 99% negative predictive value. Performed By: #### M DW, MG, GFR, BMP, CBC, ANEU, TROPHS, ADIFF #### [place] [id number] [place], [place] [address]Son 06-28-2024 High Sensitivity Troponin I 88 ng/L High 0-34 [facility] Comment on above: Result Comment: High Sensitive Troponin I Reference Ranges: Female: 0-34 ng/L Male: 0-54 ng/L Testing performed on [employer] IM analyzer using direct chemiluminescent technology. Performed By: #### A COLLIN, MG, BMP, ADIFF, GFR, CBC, HFP #### [facility] [address] [place] [address] High Sensitivity Troponin I 154 ng/L High 0-51 [facility] Comment on above: Result Comment: High Sensitive Troponin I Reference Ranges: Female: 0-51 ng/L Male: 0-76 ng/L Testing performed on [employer] using a homogeneous sandwich chemiluminescent immunoassay based on [employer] technology. Performed By: #### M DW, MG, GFR, BMP, CBC, ANEU, TROPHS, ADIFF #### [facility] [address] [place], [place] [address] XR CHEST 1 VIEWon 06-28-2024 XR CHEST [...] 06/28/2024 2:04:30 AM Ordering Provider: TIN HOFFMAN [facility] .GFRon 06-26-2024 Estimated Glomerular Filtration Rate 40 ml/min/1.73sqm [facility] Comment on above: Result Comment: Stages of [...] GFR, BMP, CBC, ANEU, TROPHS, ADIFF #### [address] [address] BMPon 06-26-2024 BUN/Creatinine Ratio 24 ratio Normal 7-27 [facility] Comment on above: Performed By: #### M DW, MG, GFR, BMP, CBC, ANEU, TROPHS, ADIFF #### [address] [address] Calcium [Mass/Vol] 9.8 mg/dL Normal 8.4-10.2 [facility] Comment on above: Performed By: #### M DW, MG, GFR, BMP, CBC, ANEU, TROPHS, ADIFF #### [address] [address] Chloride [Moles/Vol] 100 mmol/L Normal 98-107 [facility] Comment on above: Performed By: #### M DW, MG, GFR, BMP, CBC, ANEU, TROPHS, ADIFF #### [address] [address] CO2 [Moles/Vol] 32 mmol/L High 23-31 [facility] Comment on above: Performed By: #### M DW, MG, GFR, BMP, CBC, ANEU, TROPHS, ADIFF #### [address] [address] Creatinine [Mass/Vol] 1.34 mg/dL High 0.55-1.02 [facility] Comment on above: Result Comment: Test ing performed on Siemens Dimension EXL analyzer using a modified kinetic Josse technique. Performed By: #### M DW, MG, GFR, BMP, CBC, ANEU, TROPHS, ADIFF #### [address] [address] Electrolyte Balance 6.0 mEq/L Normal 4.0-15.0 [facility] Comment on above: Performed By: #### M DW, MG, GFR, BMP, CBC, ANEU, TROPHS, ADIFF #### [address] [address] Glucose [Mass/Vol] 99 mg/dL Normal 83-110 [facility] Comment on above: Performed By: #### M DW, MG, GFR, BMP, CBC, ANEU, TROPHS, ADIFF #### [address] [address] Potassium [Moles/Vol] 4.2 mmol/L Normal 3.5-5.1 [facility] Comment on above: Performed By: #### M DW, MG, GFR, BMP, CBC, ANEU, TROPHS, ADIFF #### [address] [address] Sodium [Moles/Vol] 138 mmol/L Normal 136-145 [facility] Comment on above: Performed By: #### M DW, MG, GFR, BMP, CBC, ANEU, TROPHS, ADIFF #### [address] [address] Urea nitrogen [Mass/Vol] 32 mg/dL High - [facility] Comment on above: Performed By: #### M DW, MG, GFR, BMP, CBC, ANEU, TROPHS, ADIFF #### [address] [address] CAIONon 06-26-2024 Calcium Ionized 1.19 mmol/L Normal 1.12-1.32 [facility] Comment on above: Performed By: #### M DW, MG, GFR, BMP, CBC, ANEU, TROPHS, ADIFF #### [address] [address] PTHon 06-26-2024 PTH, Intact 141.0 pg/mL High 18.5-88.0 [facility] Comment on above: Performed By: #### M DW, MG, GFR, BMP, CBC, ANEU, TROPHS, ADIFF #### [facility] [address] [place], [place] [address] .Auto Diffon 06-19-2024 Basophil, Absolute 0.1 10 3/mcL Normal 0.0-0.3 [facility] Comment on above: Performed By: #### G FR, BMP #### [address] [address] Basophils/100 WBC (Bld) 1.1 % Normal 0.0-2.5 [facility] Comment on above: Performed By: #### G FR, BMP #### [address] [address] Eosinophil, Absolute 0.1 10 3/mcL Normal 0.0-0.7 [facility] Comment on above: Performed By: #### G FR, BMP #### [address] [address] Eosinophils/100 WBC (Bld) 1.2 % Normal 0.0-6.0 [facility] Comment on above: Performed By: #### G FR, BMP #### [address] [address] Lymphocyte, Absolute 0.8 10 3/mcL Low 0.9-4.3 [facility] Comment on above: Performed By: #### G FR, BMP #### [address] [address] Lymphocytes/100 WBC (Bld) 7.8 % Low 20.0-40.0 [facility] Comment on above: Performed By: #### G FR, BMP #### [address] [address] Monocyte, Absolute 0.8 10 3/mcL Normal 0.1-1.4 [facility] Comment on above: Performed By: #### G FR, BMP #### [address] [address] Monocytes/100 WBC (Bld) 8.2 % Normal 2.0-13.0 [facility] Comment on above: Performed By: #### G FR, BMP #### [address] [address] Neutrophils/100 WBC (Bld) 81.7 % High 50.0-75.0 [facility] Comment on above: Performed By: #### G FR, BMP #### [address] [address] .GFRon 06-19-2024 Estimated Glomerular Filtration Rate 55 ml/min/1.73sqm [facility] Comment on above: Result Comment: Stages [...] MG, BMP, ADIFF, GFR, CBC, HFP #### [address] [address] Estimated Glomerular Filtration Rate 53 ml/min/1.73sqm [facility] Comment on above: Result Comment: Stages [...] Performed By: #### G FR, BMP #### [address] [address] .NEUABSon 06-19-2024 Neutrophil, Absolute 8.4 10 3/mcL High 2.3-8.1 [facility] Comment on above: Performed By: #### G FR, BMP #### [address] [address] BGRPon 06-19-2024 Base Excess - POC 6.3 mmol/L Normal [facility] Comment on above: Performed By: #### C MP, MG, GFR #### [place] [address] CO2 [Moles/Vol] 31.3 mmol/L High 22.0-30.0 [facility] Comment on above: Performed By: #### C MP, MG, GFR #### [place] [address] HCO3 (Bld) [Moles/Vol] 30.1 mmol/L High 21.0-29.0 [facility] Comment on above: Performed By: #### C MP, MG, GFR #### [place] [address] Oxygen saturation in Blood 73.8 % Low 92.0-96.0 [facility] Comment on above: Performed By: #### C MP, MG, GFR #### [place] [address] PCO2 - POC 40.3 mmHg Normal 32.0-46.0 [facility] Comment on above: Performed By: #### C MP, MG, GFR #### [place] [address] pH (poct) - POC 7.491 High 7.380-7.460 [facility] Comment on above: Performed By: #### C MP, MG, GFR #### [place] [address] PO2 - POC 37.7 mmHg Low 74.0-108.0 [facility] Comment on above: Performed By: #### C MP, MG, GFR #### [address] [address] BMPon 06-19-2024 BUN/Creatinine Ratio 17.5 ratio Normal 10.0-22.0 [facility] Comment on above: Performed By: #### A COLLIN, MG, BMP, ADIFF, GFR, CBC, HFP #### [address] [address] Calcium [Mass/Vol] 9.7 mg/dL Normal 8.7-10.4 [facility] Comment on above: Performed By: #### A COLLIN, MG, BMP, ADIFF, GFR, CBC, HFP #### [place] [id number] Chloride [Moles/Vol] 100 mmol/L Normal 98-110 [facility] Comment on above: Performed By: #### A COLLIN, MG, BMP, ADIFF, GFR, CBC, HFP #### [place] [id number] CO2 [Moles/Vol] 36 mmol/L High 22-32 [facility] Comment on above: Performed By: #### A COLLIN, MG, BMP, ADIFF, GFR, CBC, HFP #### [place] [id number] Creatinine [Mass/Vol] 1.03 mg/dL Normal 0.50-1.20 [facility] Comment on above: Result Comment: Test ing performed on homedeco2u analyzer using enzymatic creatinine methodology. Performed By: #### A COLLIN, MG, BMP, ADIFF, GFR, CBC, HFP #### [place] [id number] Electrolyte Balance 3.0 mEq/L Low 4.0-15.0 [facility] Comment on above: Performed By: #### A COLLIN, MG, BMP, ADIFF, GFR, CBC, HFP #### [place] [id number] Glucose [Mass/Vol] 92 mg/dL Normal 82-115 [facility] Comment on above: Performed By: #### A COLLIN, MG, BMP, ADIFF, GFR, CBC, HFP #### [address] [address] Potassium [Moles/Vol] 3.4 mmol/L Low 3.5-5.0 [facility] Comment on above: Performed By: #### A COLLIN, MG, BMP, ADIFF, GFR, CBC, HFP #### [address] [address] Sodium [Moles/Vol] 139 mmol/L Normal 136-145 [facility] Comment on above: Performed By: #### A COLLIN, MG, BMP, ADIFF, GFR, CBC, HFP #### [address] [address] Urea nitrogen [Mass/Vol] 18.0 mg/dL Normal 8.0-22.0 [facility] Comment on above: Performed By: #### A COLLIN, MG, BMP, ADIFF, GFR, CBC, HFP #### [address] [address] BUN/Creatinine Ratio 17.9 ratio Normal 10.0-22.0 [facility] Comment on above: Performed By: #### G FR, BMP #### [address] [address] Calcium [Mass/Vol] 9.9 mg/dL Normal 8.7-10.4 [facility] Comment on above: Performed By: #### G FR, BMP #### [address] [address] Chloride [Moles/Vol] 98 mmol/L Normal 98-110 [facility] Comment on above: Performed By: #### G FR, BMP #### [address] [address] CO2 [Moles/Vol] 35 mmol/L High 22-32 [facility] Comment on above: Performed By: #### G FR, BMP #### [address] [address] Creatinine [Mass/Vol] 1.06 mg/dL Normal 0.50-1.20 [facility] Comment on above: Result Comment: Test ing performed on homedeco2u analyzer using enzymatic creatinine methodology. Performed By: #### G FR, BMP #### [address] [address] Electrolyte Balance 6.0 mEq/L Normal 4.0-15.0 [facility] Comment on above: Performed By: #### Ed WAGNER, BMP #### [place] [id number] Glucose [Mass/Vol] 92 mg/dL Normal 82-115 [facility] Comment on above: Performed By: #### Ed WAGNER, BMP #### [place] [address] Potassium [Moles/Vol] 2.7 mmol/L Critically abnormal 3.5-5.0 [facility] Comment on above: Performed By: #### Ed WAGNER, BMP #### [place] [id number] Sodium [Moles/Vol] 139 mmol/L Normal 136-145 [facility] Comment on above: Performed By: #### Ed WAGNER, BMP #### [place] [address] Urea nitrogen [Mass/Vol] 19.0 mg/dL Normal 8.0-22.0 [facility] Comment on above: Performed By: #### Ed WAGNER, BMP #### [address] 06-19-2024 Ionized Calcium - POC 1.16 mmol/L Normal 1.12-1.32 [facility] Comment on above: Performed By: #### Ed WAGNER, BMP #### [address] 06-19-2024 Erythrocyte distribution width (RBC) [Ratio] 14.7 % Normal 11.5-15.5 [facility] Comment on above: Performed By: #### Ed WAGNER, BMP #### [place] [id number] Hematocrit (Bld) [Volume fraction] 38.3 % Normal 34.0-46.0 [facility] Comment on above: Performed By: #### Ed WAGNER, BMP #### [place] [address] Hgb 13.6 G/dL Normal 12.0-16.0 [facility] Comment on above: Performed By: #### G FR, BMP #### [place] [address] MCH (RBC) [Entitic mass] 31.6 pg Normal 27.0-33.0 [facility] Comment on above: Performed By: #### G FR, BMP #### [place] [address] MCHC 35.6 G/dL Normal 32.0-36.0 [facility] Comment on above: Performed By: #### G FR, BMP #### [place] [address] MCV (RBC) [Entitic vol] 88.7 fL Normal 80.0-99.0 [facility] Comment on above: Performed By: #### G FR, BMP #### [place] [address] Platelet 267 10 3/mcL Normal 150-450 [facility] Comment on above: Performed By: #### G FR, BMP #### [place] [address] Platelet mean volume (Bld) [Entitic vol] 7.2 fL Normal 6.6-10.5 [facility] Comment on above: Performed By: #### G FR, BMP #### [place] [address] RBC 4.32 10 6/mcL Normal 4.10-5.30 [facility] Comment on above: Performed By: #### G FR, BMP #### [place] [address] WBC 10.3 10 3/mcL Normal 4.5-10.8 [facility] Comment on above: Performed By: #### G FR, BMP #### [place] [address] CLRPon 06-19-2024 Chloride [Moles/Vol] 96 mmol/L Low 98-110 [facility] Comment on above: Performed By: #### C MP, MG, GFR #### [place] [address] GLURPon 06-19-2024 Glucose [Mass/Vol] 85 mg/dL Normal 82-115 [facility] Comment on above: Performed By: #### G FR, BMP #### [place] [address] HCTRPon 06-19-2024 Hematocrit (Bld) [Volume fraction] 39.0 % Normal 37.0-47.0 [facility] Comment on above: Performed By: #### G FR, BMP #### [place] [address] HGBRPon 06-19-2024 Hemoglobin (POC) 13.3 G/dL Normal 12.0-16.0 [facility] Comment on above: Performed By: #### C MP, MG, GFR #### [place] [address] KRPon 06-19-2024 Potassium [Moles/Vol] 3.2 mmol/L Low 3.5-5.0 [facility] Comment on above: Performed By: #### G FR, BMP #### [place] [address] LABORATORYOrdered By: SYSTEM SYSTEM on 06-19-2024 Calcium [Mass/Vol] 9.7 mg/dL Normal 8.7 - 10. 4 mg/dL ADM SS Chloride [Moles/Vol] 100 mmol/L Normal 98 - 11 0 mEq/L AH ADM SS CO2 [Moles/Vol] 36 mmol/L High 22 - 32 mEq/L ADM SS Creatinine [Mass/Vol] 1.03 mg/dL Normal 0.50 - 1.20 mg/dL ADM SS Comment on above: Interpretive Data: T esting performed on homedeco2u analyzer using enzymatic creatinine methodology. Electrolyte Balance [...] above: Interpretive Data: T esting performed on homedeco2u analyzer using enzymatic creatinine methodology. Electrolyte Balance [...] Comment on above: Interpretive Data: Jatinder samano [employer] (CHEST, 1991, 102:[id number]) [...] 06-19-2024 Sodium [Moles/Vol] 136 mmol/L Normal 136-145 [facility] Comment on above: Performed By: #### G , BMP #### [address] [address] PROon 06-19-2024 INR Coag (PPP) [Relative time] 1.3 {INR} Normal [facility] Comment on above: Result Comment: [employer] (CHEST, 1991, 102:[id number]) recommended therapeutic range for oral anticoagulant therapy is: LOW RISK: Prophylaxis of venous thrombosis INR: 2.0-3.0 Treatment of pulmonary embolism 2.0-3.0 Prevention of systemic embolism 2.0-3.0 HIGH RISK: Mechanical prosthetic valves 2.5-3.5 Performed By: #### G FR, BMP #### [address] [address] PT Coag (PPP) [Time] 14.6 s High 9.0-14.4 [facility] Comment on above: Result Comment: Effe ctive 10/24/07, Protime results may be affected by some antibiotics (i.e. Ciprofloxacin, Azithromycin, Bactrim) which may potentiate the action of oral anticoagulants, with further increases in Protime/INR. Performed By: #### G FR, BMP #### [facility] [address] [place] [address] .GFRon 05-28-2024 Estimated Glomerular Filtration Rate 31 ml/min/1.73sqm Normal [facility] Comment on above: Result Comment: Stages [...] GFR, BMP, CBC, ANEU, TROPHS, ADIFF #### [address] [address] BMPon 05-28-2024 BUN/Creatinine Ratio 24 ratio Normal 7-27 [facility] Comment on above: Performed By: #### M DW, MG, GFR, BMP, CBC, ANEU, TROPHS, ADIFF #### [address] [address] Calcium [Mass/Vol] 9.7 mg/dL Normal 8.4-10.2 [facility] Comment on above: Performed By: #### M DW, MG, GFR, BMP, CBC, ANEU, TROPHS, ADIFF #### [address] [address] Chloride [Moles/Vol] 104 mmol/L Normal 98-107 [facility] Comment on above: Performed By: #### M DW, MG, GFR, BMP, CBC, ANEU, TROPHS, ADIFF #### [address] [address] CO2 [Moles/Vol] 32 mmol/L High 23-31 [facility] Comment on above: Performed By: #### M DW, MG, GFR, BMP, CBC, ANEU, TROPHS, ADIFF #### [address] [address] Creatinine [Mass/Vol] 1.64 mg/dL High 0.55-1.02 [facility] Comment on above: Result Comment: Test ing performed on Siemens Dimension EXL analyzer using a modified kinetic Josse technique. Performed By: #### M DW, MG, GFR, BMP, CBC, ANEU, TROPHS, ADIFF #### [address] [address] Electrolyte Balance 6.0 mEq/L Normal 4.0-15.0 [facility] Comment on above: Performed By: #### M DW, MG, GFR, BMP, CBC, ANEU, TROPHS, ADIFF #### [address] [address] Glucose [Mass/Vol] 93 mg/dL Normal 83-110 [facility] Comment on above: Performed By: #### M DW, MG, GFR, BMP, CBC, ANEU, TROPHS, ADIFF #### [address] [address] Potassium [Moles/Vol] 3.8 mmol/L Normal 3.5-5.1 [facility] Comment on above: Performed By: #### M DW, MG, GFR, BMP, CBC, ANEU, TROPHS, ADIFF #### [address] [address] Sodium [Moles/Vol] 142 mmol/L Normal 136-145 [facility] Comment on above: Performed By: #### M DW, MG, GFR, BMP, CBC, ANEU, TROPHS, ADIFF #### [address] [address] Urea nitrogen [Mass/Vol] 40 mg/dL High 7-18 [facility] Comment on above: Performed By: #### M DW, MG, GFR, BMP, CBC, ANEU, TROPHS, ADIFF #### [place] [address] [place], [place] [address] LABORATORYOrdered By: SYSTEM SYSTEM on 05-28-2024 Calcium [...] 05-28-2024 Magnesium [Mass/Vol] 2.4 mg/dL Normal 1.8-2.4 [facility] Comment on above: Performed By: #### M DW, MG, GFR, BMP, CBC, ANEU, TROPHS, ADIFF #### [address] [address] .GFRon 05-23-2024 Estimated Glomerular Filtration Rate 39 ml/min/1.73sqm Normal [facility] Comment on above: Result Comment: Stages [...] GFR, BMP, CBC, ANEU, TROPHS, ADIFF #### [address] [address] BMPon 05-23-2024 BUN/Creatinine Ratio 28 ratio High 7-27 [facility] Comment on above: Performed By: #### M DW, MG, GFR, BMP, CBC, ANEU, TROPHS, ADIFF #### [address] [address] Calcium [Mass/Vol] 9.3 mg/dL Normal 8.4-10.2 [facility] Comment on above: Performed By: #### M DW, MG, GFR, BMP, CBC, ANEU, TROPHS, ADIFF #### [address] [address] Chloride [Moles/Vol] 97 mmol/L Low 98-107 [facility] Comment on above: Performed By: #### M DW, MG, GFR, BMP, CBC, ANEU, TROPHS, ADIFF #### [address] [address] CO2 [Moles/Vol] 36 mmol/L High 23-31 [facility] Comment on above: Performed By: #### M DW, MG, GFR, BMP, CBC, ANEU, TROPHS, ADIFF #### [address] [address] Creatinine [Mass/Vol] 1.37 mg/dL High 0.55-1.02 [facility] Comment on above: Result Comment: Test ing performed on [employer] Dimension EXL analyzer using a modified kinetic Josse technique. Performed By: #### M DW, MG, GFR, BMP, CBC, ANEU, TROPHS, ADIFF #### [address] [address] Electrolyte Balance 3.0 mEq/L Low 4.0-15.0 [facility] Comment on above: Performed By: #### M DW, MG, GFR, BMP, CBC, ANEU, TROPHS, ADIFF #### [address] [address] Glucose [Mass/Vol] 94 mg/dL Normal 83-110 [facility] Comment on above: Performed By: #### M DW, MG, GFR, BMP, CBC, ANEU, TROPHS, ADIFF #### [address] [address] Potassium [Moles/Vol] 4.1 mmol/L Normal 3.5-5.1 [facility] Comment on above: Performed By: #### M DW, MG, GFR, BMP, CBC, ANEU, TROPHS, ADIFF #### [address] [address] Sodium [Moles/Vol] 136 mmol/L Normal 136-145 [facility] Comment on above: Performed By: #### M DW, MG, GFR, BMP, CBC, ANEU, TROPHS, ADIFF #### [address] [address] Urea nitrogen [Mass/Vol] 39 mg/dL High 7-18 [facility] Comment on above: Performed By: #### M DW, MG, GFR, BMP, CBC, ANEU, TROPHS, ADIFF #### [id number] [place], [place] [address] LABORATORYOrdered By: SYSTEM SYSTEM on 05-23-2024 Calcium [...] above: Interpretive Data: T esting performed on [employer] Dimension EXL analyzer using a modified kinetic [...] 05-23-2024 Magnesium [Mass/Vol] 2.3 mg/dL Normal 1.8-2.4 [facility] Comment on above: Performed By: #### M DW, MG, GFR, BMP, CBC, ANEU, TROPHS, ADIFF #### [address] [address] .GFRon 05-22-2024 Estimated Glomerular Filtration Rate 32 ml/min/1.73sqm Normal [facility] Comment on above: Result Comment: Stages [...] GFR, CMP, PBNP, CBC, TSH, ADIFF #### [address] [address] BMPon 05-22-2024 BUN/Creatinine Ratio 24 ratio Normal 7-27 [facility] Comment on above: Performed By: #### A COLLIN, GFR, CMP, PBNP, CBC, TSH, ADIFF #### [address] [address] Calcium [Mass/Vol] 9.3 mg/dL Normal 8.4-10.2 [facility] Comment on above: Performed By: #### A COLLIN, GFR, CMP, PBNP, CBC, TSH, ADIFF #### [address] [address] Chloride [Moles/Vol] 98 mmol/L Normal 98-107 [facility] Comment on above: Performed By: #### A COLLIN, GFR, CMP, PBNP, CBC, TSH, ADIFF #### [address] [address] CO2 [Moles/Vol] 38 mmol/L High 23-31 [facility] Comment on above: Performed By: #### A COLLIN, GFR, CMP, PBNP, CBC, TSH, ADIFF #### [address] [address] Creatinine [Mass/Vol] 1.61 mg/dL High 0.55-1.02 [facility] Comment on above: Result Comment: Test ing performed on [employer] Dimension EXL analyzer using a modified kinetic Josse technique. Performed By: #### A COLLIN, GFR, CMP, PBNP, CBC, TSH, ADIFF #### [address] [address] Electrolyte Balance 3.0 mEq/L Low 4.0-15.0 [facility] Comment on above: Performed By: #### A COLLIN, GFR, CMP, PBNP, CBC, TSH, ADIFF #### [address] [address] Glucose [Mass/Vol] 89 mg/dL Normal 83-110 [facility] Comment on above: Performed By: #### A COLLIN, GFR, CMP, PBNP, CBC, TSH, ADIFF #### [address] [address] Potassium [Moles/Vol] 4.5 mmol/L Normal 3.5-5.1 [facility] Comment on above: Performed By: #### A COLLIN, GFR, CMP, PBNP, CBC, TSH, ADIFF #### [address] [address] Sodium [Moles/Vol] 139 mmol/L Normal 136-145 [facility] Comment on above: Performed By: #### A COLLIN, GFR, CMP, PBNP, CBC, TSH, ADIFF #### [address] [address] Urea nitrogen [Mass/Vol] 38 mg/dL High 7-18 [facility] Comment on above: Performed By: #### A COLLIN, GFR, CMP, PBNP, CBC, TSH, ADIFF #### [place] [id number] [place] [address] LABORATORYOrdered By: SYSTEM SYSTEM on 05-22-2024 Calcium [...] 05-22-2024 Magnesium [Mass/Vol] 2.1 mg/dL Normal 1.8-2.4 [facility] Comment on above: Performed By: #### A COLLIN, GFR, CMP, PBNP, CBC, TSH, ADIFF #### [address] [address] .Auto Diffon 05-21-2024 Basophil, Absolute 0.1 10 3/mcL Normal 0.0-0.2 [facility] Comment on above: Performed By: #### M DW, MG, GFR, BMP, CBC, ANEU, TROPHS, ADIFF #### [address] [address] Basophils/100 WBC (Bld) 0.8 % Normal 0.0-2.5 [facility] Comment on above: Performed By: #### M DW, MG, GFR, BMP, CBC, ANEU, TROPHS, ADIFF #### [address] [address] Eosinophil, Absolute 0.2 10 3/mcL Normal 0.0-0.7 [facility] Comment on above: Performed By: #### M DW, MG, GFR, BMP, CBC, ANEU, TROPHS, ADIFF #### [address] [address] Eosinophils/100 WBC (Bld) 2.3 % Normal 0.0-7.0 [facility] Comment on above: Performed By: #### M DW, MG, GFR, BMP, CBC, ANEU, TROPHS, ADIFF #### [address] [address] Lymphocyte, Absolute 1.1 10 3/mcL Normal 0.9-4.3 [facility] Comment on above: Performed By: #### M DW, MG, GFR, BMP, CBC, ANEU, TROPHS, ADIFF #### [address] [address] Lymphocytes/100 WBC (Bld) 10.9 % Low 20.0-40.0 [facility] Comment on above: Performed By: #### M DW, MG, GFR, BMP, CBC, ANEU, TROPHS, ADIFF #### [address] [address] Monocyte, Absolute 0.9 10 3/mcL Normal 0.1-1.4 [facility] Comment on above: Performed By: #### M DW, MG, GFR, BMP, CBC, ANEU, TROPHS, ADIFF #### [address] [address] Monocytes/100 WBC (Bld) 9.1 % Normal 2.0-13.0 [facility] Comment on above: Performed By: #### M DW, MG, GFR, BMP, CBC, ANEU, TROPHS, ADIFF #### [address] [address] Neutrophils/100 WBC (Bld) 76.9 % High 50.0-75.0 [facility] Comment on above: Performed By: #### M DW, MG, GFR, BMP, CBC, ANEU, TROPHS, ADIFF #### [address] [address] .GFRon 05-21-2024 Estimated Glomerular Filtration Rate 37 ml/min/1.73sqm Normal [facility] Comment on above: Result Comment: Stages [...] GFR, BMP, CBC, ANEU, TROPHS, ADIFF #### [address] [address] .NEUABSon 05-21-2024 Neutrophil, Absolute 7.6 10 3/mcL Normal 2.3-8.1 [facility] Comment on above: Performed By: #### M DW, MG, GFR, BMP, CBC, ANEU, TROPHS, ADIFF #### [address] [address] BMPon 05-21-2024 BUN/Creatinine Ratio 21 ratio Normal 7-27 [facility] Comment on above: Performed By: #### M DW, MG, GFR, BMP, CBC, ANEU, TROPHS, ADIFF #### [address] [address] Calcium [Mass/Vol] 9.5 mg/dL Normal 8.4-10.2 [facility] Comment on above: Performed By: #### M DW, MG, GFR, BMP, CBC, ANEU, TROPHS, ADIFF #### [address] [address] Chloride [Moles/Vol] 97 mmol/L Low 98-107 [facility] Comment on above: Performed By: #### M DW, MG, GFR, BMP, CBC, ANEU, TROPHS, ADIFF #### [address] [address] CO2 [Moles/Vol] 37 mmol/L High 23-31 [facility] Comment on above: Performed By: #### M DW, MG, GFR, BMP, CBC, ANEU, TROPHS, ADIFF #### [address] [address] Creatinine [Mass/Vol] 1.41 mg/dL High 0.55-1.02 [facility] Comment on above: Result Comment: Test ing performed on [employer] Dimension EXL analyzer using a modified kinetic Josse technique. Performed By: #### M DW, MG, GFR, BMP, CBC, ANEU, TROPHS, ADIFF #### [address] [address] Electrolyte Balance 2.0 mEq/L Low 4.0-15.0 [facility] Comment on above: Performed By: #### M DW, MG, GFR, BMP, CBC, ANEU, TROPHS, ADIFF #### [address] [address] Glucose [Mass/Vol] 97 mg/dL Normal 83-110 [facility] Comment on above: Performed By: #### M DW, MG, GFR, BMP, CBC, ANEU, TROPHS, ADIFF #### [address] [address] Potassium [Moles/Vol] 4.2 mmol/L Normal 3.5-5.1 [facility] Comment on above: Performed By: #### M DW, MG, GFR, BMP, CBC, ANEU, TROPHS, ADIFF #### [address] [address] Sodium [Moles/Vol] 136 mmol/L Normal 136-145 [facility] Comment on above: Performed By: #### M DW, MG, GFR, BMP, CBC, ANEU, TROPHS, ADIFF #### [address] [address] Urea nitrogen [Mass/Vol] 29 mg/dL High 7-18 [facility] Comment on above: Performed By: #### M DW, MG, GFR, BMP, CBC, ANEU, TROPHS, ADIFF #### [address] [address] CBCon 05-21-2024 Erythrocyte distribution width (RBC) [Ratio] 13.5 % Normal 11.5-15.5 [facility] Comment on above: Performed By: #### M DW, MG, GFR, BMP, CBC, ANEU, TROPHS, ADIFF #### [address] [address] Hematocrit (Bld) [Volume fraction] 41.8 % Normal 34.0-46.0 [facility] Comment on above: Performed By: #### M DW, MG, GFR, BMP, CBC, ANEU, TROPHS, ADIFF #### [address] [address] Hgb 14.5 G/dL Normal 12.0-16.0 [facility] Comment on above: Performed By: #### M DW, MG, GFR, BMP, CBC, ANEU, TROPHS, ADIFF #### [address] [address] MCH (RBC) [Entitic mass] 30.2 pg Normal 27.0-33.0 [facility] Comment on above: Performed By: #### M DW, MG, GFR, BMP, CBC, ANEU, TROPHS, ADIFF #### [address] [address] MCHC 34.6 G/dL Normal 32.0-36.0 [facility] Comment on above: Performed By: #### M DW, MG, GFR, BMP, CBC, ANEU, TROPHS, ADIFF #### [address] [address] MCV (RBC) [Entitic vol] 87.2 fL Normal 80.0-99.0 [facility] Comment on above: Performed By: #### M DW, MG, GFR, BMP, CBC, ANEU, TROPHS, ADIFF #### [address] [address] Platelet 270 10 3/mcL Normal 150-450 [facility] Comment on above: Performed By: #### M DW, MG, GFR, BMP, CBC, ANEU, TROPHS, ADIFF #### [address] [address] Platelet mean volume (Bld) [Entitic vol] 8.6 fL Normal 6.6-10.5 [facility] Comment on above: Performed By: #### M DW, MG, GFR, BMP, CBC, ANEU, TROPHS, ADIFF #### [address] [address] RBC 4.79 10 6/mcL Normal 4.10-5.30 [facility] Comment on above: Performed By: #### M DW, MG, GFR, BMP, CBC, ANEU, TROPHS, ADIFF #### [address] [address] WBC 10.0 10 3/mcL Normal 4.5-10.8 [facility] Comment on above: Performed By: #### M DW, MG, GFR, BMP, CBC, ANEU, TROPHS, ADIFF #### [facility] [address] [place], [place] [address] LABORATORYOrdered By: SYSTEM SYSTEM on 05-21-2024 Basophils [...] above: Interpretive Data: T esting performed on [employer] Dimension EXL analyzer using a modified kinetic [...] Workflow SS Natriuretic peptide.B prohormone N-Terminal [Mass/Vol] 40726 pg/mL High 0 - 450 pg/mL AO [...] 05-21-2024 Magnesium [Mass/Vol] 2.0 mg/dL Normal 1.8-2.4 [facility] Comment on above: Performed By: #### M DW, MG, GFR, BMP, CBC, ANEU, TROPHS, ADIFF #### [address] [address] PBNPon 05-21-2024 Natriuretic peptide B (Bld) [Mass/Vol] 01083 pg/mL High 0-450 [facility] Comment on above: Result Comment: NT-p roBNP results of less than 300 pg/mL effectively rules out acute congestive heart failure with 99% negative predictive value. Performed By: #### M DW, MG, GFR, BMP, CBC, ANEU, TROPHS, ADIFF #### [address] [address] .Auto Diffon 05-20-2024 Basophil, Absolute 0.2 10 3/mcL Normal 0.0-0.2 [facility] Comment on above: Performed By: #### M DW, MG, GFR, BMP, CBC, ANEU, TROPHS, ADIFF #### [address] [address] Basophils/100 WBC (Bld) 1.3 % Normal 0.0-2.5 [facility] Comment on above: Performed By: #### M DW, MG, GFR, BMP, CBC, ANEU, TROPHS, ADIFF #### [address] [address] Eosinophil, Absolute 0.5 10 3/mcL Normal 0.0-0.7 [facility] Comment on above: Performed By: #### M DW, MG, GFR, BMP, CBC, ANEU, TROPHS, ADIFF #### [address] [address] Eosinophils/100 WBC (Bld) 3.5 % Normal 0.0-7.0 [facility] Comment on above: Performed By: #### M DW, MG, GFR, BMP, CBC, ANEU, TROPHS, ADIFF #### [address] [address] Lymphocyte, Absolute 1.7 10 3/mcL Normal 0.9-4.3 [facility] Comment on above: Performed By: #### M DW, MG, GFR, BMP, CBC, ANEU, TROPHS, ADIFF #### [address] [address] Lymphocytes/100 WBC (Bld) 11.9 % Low 20.0-40.0 [facility] Comment on above: Performed By: #### M DW, MG, GFR, BMP, CBC, ANEU, TROPHS, ADIFF #### [address] [address] Monocyte, Absolute 1.4 10 3/mcL Normal 0.1-1.4 [facility] Comment on above: Performed By: #### M DW, MG, GFR, BMP, CBC, ANEU, TROPHS, ADIFF #### [address] [address] Monocytes/100 WBC (Bld) 10.0 % Normal 2.0-13.0 [facility] Comment on above: Performed By: #### M DW, MG, GFR, BMP, CBC, ANEU, TROPHS, ADIFF #### [address] [address] Neutrophils/100 WBC (Bld) 73.3 % Normal 50.0-75.0 [facility] Comment on above: Performed By: #### M DW, MG, GFR, BMP, CBC, ANEU, TROPHS, ADIFF #### [address] [address] .GFRon 05-20-2024 Estimated Glomerular Filtration Rate 44 ml/min/1.73sqm [facility] Comment on above: Result Comment: Stages of [...] GFR, CMP, PBNP, CBC, TSH, ADIFF #### [address] [address] Estimated Glomerular Filtration Rate 47 ml/min/1.73sqm Normal [facility] Comment on above: Result Comment: Stages [...] GFR, BMP, CBC, ANEU, TROPHS, ADIFF #### [address] [address] .NEUABSon 05-20-2024 Neutrophil, Absolute 10.2 10 3/mcL High 2.3-8.1 [facility] Comment on above: Performed By: #### M DW, MG, GFR, BMP, CBC, ANEU, TROPHS, ADIFF #### [address] [address] BMPon 05-20-2024 BUN/Creatinine Ratio 22 ratio Normal 7-27 [facility] Comment on above: Performed By: #### A COLLIN, GFR, CMP, PBNP, CBC, TSH, ADIFF #### [address] [address] Calcium [Mass/Vol] 9.5 mg/dL Normal 8.4-10.2 [facility] Comment on above: Performed By: #### A COLLIN, GFR, CMP, PBNP, CBC, TSH, ADIFF #### [address] [address] Chloride [Moles/Vol] 99 mmol/L Normal 98-107 [facility] Comment on above: Performed By: #### A COLLIN, GFR, CMP, PBNP, CBC, TSH, ADIFF #### [address] [address] CO2 [Moles/Vol] 35 mmol/L High 23-31 [facility] Comment on above: Performed By: #### A COLLIN, GFR, CMP, PBNP, CBC, TSH, ADIFF #### [address] [address] Creatinine [Mass/Vol] 1.23 mg/dL High 0.55-1.02 [facility] Comment on above: Result Comment: Test ing performed on [employer] Dimension EXL analyzer using a modified kinetic Josse technique. Performed By: #### A COLLIN, GFR, CMP, PBNP, CBC, TSH, ADIFF #### [address] [address] Electrolyte Balance 4.0 mEq/L Normal 4.0-15.0 [facility] Comment on above: Performed By: #### A COLLIN, GFR, CMP, PBNP, CBC, TSH, ADIFF #### [address] [address] Glucose [Mass/Vol] 93 mg/dL Normal 83-110 [facility] Comment on above: Performed By: #### A COLLIN, GFR, CMP, PBNP, CBC, TSH, ADIFF #### [address] [address] Potassium [Moles/Vol] 4.4 mmol/L Normal 3.5-5.1 [facility] Comment on above: Performed By: #### A COLLIN, GFR, CMP, PBNP, CBC, TSH, ADIFF #### [address] [address] Sodium [Moles/Vol] 138 mmol/L Normal 136-145 [facility] Comment on above: Performed By: #### A COLLIN, GFR, CMP, PBNP, CBC, TSH, ADIFF #### [address] [address] Urea nitrogen [Mass/Vol] 27 mg/dL High 7-18 [facility] Comment on above: Performed By: #### A COLLIN, GFR, CMP, PBNP, CBC, TSH, ADIFF #### [address] [address] BUN/Creatinine Ratio 24 ratio Normal 7-27 [facility] Comment on above: Performed By: #### M DW, MG, GFR, BMP, CBC, ANEU, TROPHS, ADIFF #### [address] [address] Calcium [Mass/Vol] 9.6 mg/dL Normal 8.4-10.2 [facility] Comment on above: Performed By: #### M DW, MG, GFR, BMP, CBC, ANEU, TROPHS, ADIFF #### [address] [address] Chloride [Moles/Vol] 98 mmol/L Normal 98-107 [facility] Comment on above: Performed By: #### M DW, MG, GFR, BMP, CBC, ANEU, TROPHS, ADIFF #### [address] [address] CO2 [Moles/Vol] 30 mmol/L Normal 23-31 [facility] Comment on above: Performed By: #### M DW, MG, GFR, BMP, CBC, ANEU, TROPHS, ADIFF #### [address] [address] Creatinine [Mass/Vol] 1.16 mg/dL High 0.55-1.02 [facility] Comment on above: Result Comment: Test ing performed on [employer] Dimension EXL analyzer using a modified kinetic Josse technique. Performed By: #### M DW, MG, GFR, BMP, CBC, ANEU, TROPHS, ADIFF #### [address] [address] Electrolyte Balance 8.0 mEq/L Normal 4.0-15.0 [facility] Comment on above: Performed By: #### M DW, MG, GFR, BMP, CBC, ANEU, TROPHS, ADIFF #### [address] [address] Glucose [Mass/Vol] 198 mg/dL High 83-110 [facility] Comment on above: Performed By: #### M DW, MG, GFR, BMP, CBC, ANEU, TROPHS, ADIFF #### [address] [address] Potassium [Moles/Vol] 4.3 mmol/L Normal 3.5-5.1 [facility] Comment on above: Performed By: #### M DW, MG, GFR, BMP, CBC, ANEU, TROPHS, ADIFF #### [address] [address] Sodium [Moles/Vol] 136 mmol/L Normal 136-145 [facility] Comment on above: Performed By: #### M DW, MG, GFR, BMP, CBC, ANEU, TROPHS, ADIFF #### [address] [address] Urea nitrogen [Mass/Vol] 28 mg/dL High 7-18 [facility] Comment on above: Performed By: #### M DW, MG, GFR, BMP, CBC, ANEU, TROPHS, ADIFF #### [address] [address] CBCon 05-20-2024 Erythrocyte distribution width (RBC) [Ratio] 13.5 % Normal 11.5-15.5 [facility] Comment on above: Performed By: #### M DW, MG, GFR, BMP, CBC, ANEU, TROPHS, ADIFF #### [address] [address] Hematocrit (Bld) [Volume fraction] 44.3 % Normal 34.0-46.0 [facility] Comment on above: Performed By: #### M DW, MG, GFR, BMP, CBC, ANEU, TROPHS, ADIFF #### [address] [address] Hgb 14.9 G/dL Normal 12.0-16.0 [facility] Comment on above: Performed By: #### M DW, MG, GFR, BMP, CBC, ANEU, TROPHS, ADIFF #### [address] [address] MCH (RBC) [Entitic mass] 30.0 pg Normal 27.0-33.0 [facility] Comment on above: Performed By: #### M DW, MG, GFR, BMP, CBC, ANEU, TROPHS, ADIFF #### [address] [address] MCHC 33.7 G/dL Normal 32.0-36.0 [facility] Comment on above: Performed By: #### M DW, MG, GFR, BMP, CBC, ANEU, TROPHS, ADIFF #### [address] [address] MCV (RBC) [Entitic vol] 88.9 fL Normal 80.0-99.0 [facility] Comment on above: Performed By: #### M DW, MG, GFR, BMP, CBC, ANEU, TROPHS, ADIFF #### [address] [address] Platelet 342 10 3/mcL Normal 150-450 [facility] Comment on above: Performed By: #### M DW, MG, GFR, BMP, CBC, ANEU, TROPHS, ADIFF #### [place] [address] Platelet mean volume (Bld) [Entitic vol] 8.0 fL Normal 6.6-10.5 [facility] Comment on above: Performed By: #### M DW, MG, GFR, BMP, CBC, ANEU, TROPHS, ADIFF #### [place] [address] RBC 4.98 10 6/mcL Normal 4.10-5.30 [facility] Comment on above: Performed By: #### M DW, MG, GFR, BMP, CBC, ANEU, TROPHS, ADIFF #### [place] [address] WBC 14.0 10 3/mcL High 4.5-10.8 [facility] Comment on above: Performed By: #### M DW, MG, GFR, BMP, CBC, ANEU, TROPHS, ADIFF #### [place] [address] LABORATORYOrdered By: SYSTEM SYSTEM on 05-20-2024 Troponin I.cardiac DL <= 0.01 ng/mL [Mass/Vol] 141 ng/L High 0 - 51 ng/L AO ADM SS Comment on above: Interpretive Data: H igh Sensitive Troponin I Reference Ranges: Female: 0-51 ng/L Male: 0-76 ng/L Testing performed on [employer] using a homogeneous sandwich chemiluminescent immunoassay based on [employer] technology. Basophils (Bld) [#/Vol] 0.2 103/mcL Normal [...] Workflow SS Natriuretic peptide.B prohormone N-Terminal [Mass/Vol] 20244 pg/mL High 0 - 450 pg/mL AO [...] ng/L Male: 0-76 ng/L Testing performed on [employer] using a homogeneous sandwich chemiluminescent immunoassay based on [employer] technology. Urea nitrogen [Mass/Vol] 28 mg/dL High 7 - 18 mg/dL AO ADM SS Urea nitrogen/Creatinine [Mass ratio] 24 ratio Normal 7 - 27 ratio AO ADM SS WBC (Bld) [#/Vol] 14.0 103/mcL High 4.5 - 10.8 10^3/mcL AO Workflow SS MGon 05-20-2024 Magnesium [Mass/Vol] 2.0 mg/dL Normal 1.8-2.4 [facility] Comment on above: Performed By: #### A COLLIN, GFR, CMP, PBNP, CBC, TSH, ADIFF #### [address] [address] Magnesium [Mass/Vol] 2.0 mg/dL Normal 1.8-2.4 [facility] Comment on above: Performed By: #### M DW, MG, GFR, BMP, CBC, ANEU, TROPHS, ADIFF #### [address] [address] PBNPon 05-20-2024 Natriuretic peptide B (Bld) [Mass/Vol] 53162 pg/mL High 0-450 [facility] Comment on above: Result Comment: NT-p roBNP results of less than 300 pg/mL effectively rules out acute congestive heart failure with 99% negative predictive value. Performed By: #### M DW, MG, GFR, BMP, CBC, ANEU, TROPHS, ADIFF #### [place] [address] TROPHSon 05-20-2024 High Sensitivity Troponin I 141 ng/L [facility] [address] Comment on above: Result Comment: High Sensitive Troponin I Reference Ranges: Female: 0-51 ng/L Male: 0-76 ng/L Testing performed on [employer] using a homogeneous sandwich chemiluminescent immunoassay based on [employer] technology. Performed By: #### M DW, MG, GFR, BMP, CBC, ANEU, TROPHS, ADIFF #### [address] [address] High Sensitivity Troponin I 141 ng/L High [address] Comment on above: Result Comment: High Sensitive Troponin I Reference Ranges: Female: 0-51 ng/L Male: 0-76 ng/L Testing performed on Dimension EXL using a homogeneous sandwich chemiluminescent immunoassay based on [employer] technology. Performed By: #### M DW, MG, GFR, BMP, CBC, ANEU, TROPHS, ADIFF #### [place] [address] XR CHEST 1 VIEWon 05-20-2024 XR CHEST [...] 05/20/2024 12:11:45 AM Ordering Provider: VINCENT Mercado [facility] .Auto Diffon 05-18-2024 Basophil, Absolute 0.1 10 3/mcL Normal 0.0-0.3 [facility] Comment on above: Performed By: #### G , BMP #### [address] [address] Basophils/100 WBC (Bld) 0.6 % Normal 0.0-2.5 [facility] Comment on above: Performed By: #### G , BMP #### [address] [address] Eosinophil, Absolute 0.4 10 3/mcL Normal 0.0-0.7 [facility] Comment on above: Performed By: #### G FR, BMP #### [address] [address] Eosinophils/100 WBC (Bld) 3.6 % Normal 0.0-6.0 [facility] Comment on above: Performed By: #### G FR, BMP #### [address] [address] Lymphocyte, Absolute 1.0 10 3/mcL Normal 0.9-4.3 [facility] Comment on above: Performed By: #### G FR, BMP #### [facility] [address] [place] [address] Lymphocytes/100 WBC (Bld) 10.5 % Low 20.0-40.0 [facility] Comment on above: Performed By: #### G , BMP #### [facility] [address] [place] [address] Monocyte, Absolute 1.1 10 3/mcL Normal 0.1-1.4 [facility] Comment on above: Performed By: #### G , BMP #### [address] [address] Monocytes/100 WBC (Bld) 11.1 % Normal 2.0-13.0 [facility] Comment on above: Performed By: #### G , BMP #### [address] [address] Neutrophils/100 WBC (Bld) 74.2 % Normal 50.0-75.0 [facility] Comment on above: Performed By: #### G , BMP #### [address] [address] .GFRon 05-18-2024 Estimated Glomerular Filtration Rate 42 ml/min/1.73sqm Normal [facility] Comment on above: Result [...] Performed By: #### G , BMP #### [address] [address] .NEUABSon 05-18-2024 Neutrophil, Absolute 7.3 10 3/mcL Normal 2.3-8.1 [facility] Comment on above: Performed By: #### G , BMP #### [address] [address] APTTon 05-18-2024 aPTT Coag (Bld) [Time] 52.8 s High 25.0-35.0 [facility] Comment on above: Result Comment: For Heparin anticoagulation therapy, the recommended therapeutic range is: 54-77 seconds (APTT Correlation with Anti-Xa therapeutic range of 0.3-0.7 units/ml). PLEASE REFERENCE THE PHARMACY PROTOCOL FOR DOSING. Performed By: #### G FR, BMP #### [address] 05-18-2024 BUN/Creatinine Ratio 20.9 ratio Normal 10.0-22.0 [facility] Comment on above: Performed By: #### G FR, BMP #### [place] [address] Calcium [Mass/Vol] 9.7 mg/dL Normal 8.7-10.4 [facility] Comment on above: Performed By: #### G FR, BMP #### [place] [address] Chloride [Moles/Vol] 94 mmol/L Low 98-110 [facility] Comment on above: Performed By: #### G FR, BMP #### [place] [address] CO2 [Moles/Vol] 34 mmol/L High 22-32 [facility] Comment on above: Performed By: #### G FR, BMP #### [place] [address] Creatinine [Mass/Vol] 1.29 mg/dL High 0.50-1.20 [facility] Comment on above: Result Comment: Test ing performed on [employer] analyzer using enzymatic creatinine methodology. Performed By: #### G FR, BMP #### [place] [address] Electrolyte Balance 7.0 mEq/L Normal 4.0-15.0 [facility] Comment on above: Performed By: #### G FR, BMP #### [place] [address] Glucose [Mass/Vol] 95 mg/dL Normal 82-115 [facility] Comment on above: Performed By: #### G , BMP #### [place] [id number] Potassium [Moles/Vol] 3.8 mmol/L Normal 3.5-5.0 [facility] Comment on above: Performed By: #### G FR, BMP #### [place] [id number] Sodium [Moles/Vol] 135 mmol/L Low 136-145 [facility] Comment on above: Performed By: #### G , BMP #### [place] [id number] Urea nitrogen [Mass/Vol] 27.0 mg/dL High 8.0-22.0 [facility] Comment on above: Performed By: #### Ed WAGNER, BMP #### [place] [address] CBCon 05-18-2024 Erythrocyte distribution width (RBC) [Ratio] 13.2 % Normal 11.5-15.5 [facility] Comment on above: Performed By: #### G , BMP #### [place] [id number] Hematocrit (Bld) [Volume fraction] 41.3 % Normal 34.0-46.0 [facility] Comment on above: Performed By: #### G FR, BMP #### [place] [address] Hgb 14.4 G/dL Normal 12.0-16.0 [facility] Comment on above: Performed By: #### G FR, BMP #### [place] [id number] MCH (RBC) [Entitic mass] 30.4 pg Normal 27.0-33.0 [facility] Comment on above: Performed By: #### G FR, BMP #### [place] [id number] MCHC 34.7 G/dL Normal 32.0-36.0 [facility] Comment on above: Performed By: #### G FR, BMP #### [place] [id number] MCV (RBC) [Entitic vol] 87.5 fL Normal 80.0-99.0 [facility] Comment on above: Performed By: #### G FR, BMP #### [place] [id number] Platelet 273 10 3/mcL Normal 150-450 [facility] Comment on above: Performed By: #### G FR, BMP #### [place] [address] Platelet mean volume (Bld) [Entitic vol] 8.3 fL Normal 6.6-10.5 [facility] Comment on above: Performed By: #### Ed FR, BMP #### [place] [address] RBC 4.73 10 6/mcL Normal 4.10-5.30 [facility] Comment on above: Performed By: #### Ed , BMP #### [place] [address] WBC 9.9 10 3/mcL Normal 4.5-10.8 [facility] Comment on above: Performed By: #### Ed , BMP #### [place] [address] HFPon 05-18-2024 Bili Indirect 0.4 mg/dL Normal 0.1-10.0 [facility] Comment on above: Performed By: #### Ed FR, BMP #### [place] [address] Albumin Level 3.2 G/dL Normal 3.2-4.8 [facility] Comment on above: Performed By: #### Ed FR, BMP #### [place] [id number] Albumin/Globulin [Mass ratio] 1.3 {ratio} Normal 0.9-1.6 [facility] Comment on above: Performed By: #### Ed FR, BMP #### [place] [address] ALP [Catalytic activity/Vol] 84 U/L Normal 38-126 [facility] Comment on above: Performed By: #### Ed , BMP #### [place] [address] ALT [Catalytic activity/Vol] 15 U/L Normal 10-49 [facility] Comment on above: Performed By: #### G FR, BMP #### [place] [address] AST [Catalytic activity/Vol] 14 U/L Normal 8-34 [facility] Comment on above: Performed By: #### Ed , BMP #### [place] [address] Bili Direct 0.2 mg/dL Normal 0.0-0.4 [facility] Comment on above: Result Comment: Use of this assay is not recommended for patients undergoing treatment with eltrombopag due to the potential for falsely elevated results. Performed By: #### dE , BMP #### [place] [address] Bili Total 0.60 mg/dL Normal 0.20-1.20 [facility] Comment on above: Result Comment: Use of this assay is not recommended for patients undergoing treatment with eltrombopag due to the potential for falsely elevated results. Performed By: #### Ed , BMP #### [place] [address] Globulin 2.4 G/dL Normal 1.5-3.8 [facility] Comment on above: Performed By: #### Ed , BMP #### [place] [address] Total Protein 5.6 G/dL Low 5.7-8.2 [facility] Comment on above: Performed By: #### Ed , BMP #### [place] [address] LABORATORYOrdered By: SYSTEM SYSTEM on 05-18-2024 Albumin [...] above: Interpretive Data: T esting performed on homedeco2u analyzer using enzymatic creatinine methodology. Electrolyte Balance [...] 05-18-2024 Magnesium [Mass/Vol] 1.9 mg/dL Normal 1.6-2.4 [facility] Comment on above: Performed By: #### G FR, BMP #### [address] [address] .Auto Diffon 05-17-2024 Basophil, Absolute 0.1 10 3/mcL Normal 0.0-0.3 [facility] Comment on above: Performed By: #### A COLLIN, MG, BMP, ADIFF, GFR, CBC, HFP #### [address] [address] Eosinophil, Absolute 0.4 10 3/mcL Normal 0.0-0.7 [facility] Comment on above: Performed By: #### A COLLIN, MG, BMP, ADIFF, GFR, CBC, HFP #### [address] [address] Lymphocyte, Absolute 1.0 10 3/mcL Normal 0.9-4.3 [facility] Comment on above: Performed By: #### A COLLIN, MG, BMP, ADIFF, GFR, CBC, HFP #### [address] [address] Monocyte, Absolute 1.1 10 3/mcL Normal 0.1-1.4 [facility] Comment on above: Performed By: #### A COLLIN, MG, BMP, ADIFF, GFR, CBC, HFP #### [address] [address] .Auto DiffOrdered By: SYSTEM SYSTEM on 05-17-2024 Basophils/100 WBC (Bld) 0.5 % Normal 0.0-2.5 AH Workflow SS Comment on above: Performed By: #### A COLLIN, MG, BMP, ADIFF, GFR, CBC, HFP #### [address] [address] Eosinophils/100 WBC (Bld) 3.6 % Normal 0.0-6.0 [facility] Workflow SS Comment on above: Performed By: #### A COLLIN, MG, BMP, ADIFF, GFR, CBC, HFP #### [address] [address] Lymphocytes/100 WBC (Bld) 8.9 % Low 20.0-40.0 [facility] Workflow SS Comment on above: Performed By: #### A COLLIN, MG, BMP, ADIFF, GFR, CBC, HFP #### [address] [address] Monocytes/100 WBC (Bld) 9.9 % Normal 2.0-13.0 AH Workflow SS Comment on above: Performed By: #### A COLLIN, MG, BMP, ADIFF, GFR, CBC, HFP #### [address] [address] Neutrophils/100 WBC (Bld) 77.1 % High 50.0-75.0 Workflow SS Comment on above: Performed By: #### A COLLIN, MG, BMP, ADIFF, GFR, CBC, HFP #### [address] [address] .GFROrdered By: RAMY Rodriguez on 05-17-2024 Estimated [...] MG, BMP, ADIFF, GFR, CBC, HFP #### [address] [address] .NEUABSon 05-17-2024 Neutrophil, Absolute 8.8 10 3/mcL High 2.3-8.1 [facility] Comment on above: Performed By: #### A COLLIN, MG, BMP, ADIFF, GFR, CBC, HFP #### [address] [address] APTTOrdered By: SYSTEM [employer] 3Nod on 05-17-2024 aPTT Coag (Bld) [Time] 54.9 [...] MG, BMP, ADIFF, GFR, CBC, HFP #### [place] [address] BMPon 05-17-2024 BUN/Creatinine Ratio 20.9 ratio Normal 10.0-22.0 [facility] Comment on above: Performed By: #### A COLLIN, MG, BMP, ADIFF, GFR, CBC, HFP #### [place] [address] BMPOrdered By: Celles on 05-17-2024 Calcium [Mass/Vol] 9.9 mg/dL Normal 8.7-10.4 AH ADM SS Comment on above: Performed By: #### A COLLIN, MG, BMP, ADIFF, GFR, CBC, HFP #### [place] [address] Chloride [Moles/Vol] 89 mmol/L Low 98-110 AH A DM SS Comment on above: Performed By: #### A COLLIN, MG, BMP, ADIFF, GFR, CBC, HFP #### [place] [address] CO2 [Moles/Vol] 37 mmol/L High 22-32 AH ADM SS Comment on above: Performed By: #### A COLLIN, MG, BMP, ADIFF, GFR, CBC, HFP #### [place] [address] Creatinine [Mass/Vol] 1.15 mg/dL Normal 0.50-1.20 AH ADM SS Comment on above: Interpretive Data: T esting performed on [employer] CH analyzer using enzymatic creatinine methodology. Result Comment: Test ing performed on [employer] CH analyzer using enzymatic creatinine methodology. Performed By: #### A COLLIN, MG, BMP, ADIFF, GFR, CBC, HFP #### [address] [address] Electrolyte Balance 6.0 mEq/L Normal 4.0-15.0 AD M SS Comment on above: Performed By: #### A COLLIN, MG, BMP, ADIFF, GFR, CBC, HFP #### [place] [id number] Glucose [Mass/Vol] 99 mg/dL Normal 82-115 ADM SS Comment on above: Performed By: #### A COLLIN, MG, BMP, ADIFF, GFR, CBC, HFP #### [place] [address] Potassium [Moles/Vol] 3.8 mmol/L Normal 3.5-5.0 ADM SS Comment on above: Performed By: #### A COLLIN, MG, BMP, ADIFF, GFR, CBC, HFP #### [place] [id number] Sodium [Moles/Vol] 132 mmol/L Low 136-145 ADM SS Comment on above: Performed By: #### A COLLIN, MG, BMP, ADIFF, GFR, CBC, HFP #### [place] [id number] Urea nitrogen [Mass/Vol] 24.0 mg/dL High 8.0-22.0 ADM SS Comment on above: Performed By: #### A COLLIN, MG, BMP, ADIFF, GFR, CBC, HFP #### [address] [address] CBCOrdered By: SYSTEM SYSTEM on 05-17-2024 Erythrocyte distribution width (RBC) [Ratio] 13.0 % Normal 11.5-15.5 Workflow SS Comment on above: Performed By: #### A COLLIN, MG, BMP, ADIFF, GFR, CBC, HFP #### [place] [id number] Hematocrit (Bld) [Volume fraction] 44.2 % Normal 34.0-46.0 AH Workflow SS Comment on above: Performed By: #### A COLLIN, MG, BMP, ADIFF, GFR, CBC, HFP #### [place] [id number] MCH (RBC) [Entitic mass] 29.8 pg Normal 27.0-33.0 AH Workflow SS Comment on above: Performed By: #### A COLLIN, MG, BMP, ADIFF, GFR, CBC, HFP #### [place] [id number] MCHC 34.2 G/dL Normal 32.0-36.0 AH Workflow SS Comment on above: Performed By: #### A COLLIN, MG, BMP, ADIFF, GFR, CBC, HFP #### [place] [address] MCV (RBC) [Entitic vol] 87.2 fL Normal 80.0-99.0 AH Workflow SS Comment on above: Performed By: #### A COLLIN, MG, BMP, ADIFF, GFR, CBC, HFP #### [place] [address] Platelet mean volume (Bld) [Entitic vol] 8.2 fL Normal 6.6-10.5 AH Workflow SS Comment on above: Performed By: #### A COLLIN, MG, BMP, ADIFF, GFR, CBC, HFP #### [address] [address] CBCon 05-17-2024 Hgb 15.1 G/dL Normal 12.0-16.0 [facility] Comment on above: Performed By: #### A COLLIN, MG, BMP, ADIFF, GFR, CBC, HFP #### [place] [id number] Platelet 283 10 3/mcL Normal 150-450 [facility] Comment on above: Performed By: #### A COLLIN, MG, BMP, ADIFF, GFR, CBC, HFP #### [place] [address] RBC 5.07 10 6/mcL Normal 4.10-5.30 [facility] Comment on above: Performed By: #### A COLLIN, MG, BMP, ADIFF, GFR, CBC, HFP #### [place] [address] WBC 11.4 10 3/mcL High 4.5-10.8 [facility] Comment on above: Performed By: #### A COLLIN, MG, BMP, ADIFF, GFR, CBC, HFP #### [place] [address] HFPOrdered By: SYSTEM SYSTEM on 05-17-2024 Bili Indirect 0.4 mg/dL Normal 0.1-10.0 AH Chemistr y S Comment on above: Performed By: #### A COLLIN, MG, BMP, ADIFF, GFR, CBC, HFP #### [place] [address] Albumin/Globulin [Mass ratio] 1.3 {ratio} Normal 0.9-1.6 AH ADM SS Comment on above: Performed By: #### A COLLIN, MG, BMP, ADIFF, GFR, CBC, HFP #### [place] [address] ALP [Catalytic activity/Vol] 95 U/L Normal 38-126 AH ADM SS Comment on above: Performed By: #### A COLLIN, MG, BMP, ADIFF, GFR, CBC, HFP #### [place] [address] AST [Catalytic activity/Vol] 16 U/L Normal 8-34 AH ADM SS Comment on above: Performed By: #### A COLLIN, MG, BMP, ADIFF, GFR, CBC, HFP #### [place] [address] Globulin 2.6 G/dL Normal 1.5-3.8 AH ADM SS Comment on above: Performed By: #### A COLLIN, MG, BMP, ADIFF, GFR, CBC, HFP #### [address] 05-17-2024 Albumin Level 3.3 G/dL Normal 3.2-4.8 [facility] Comment on above: Performed By: #### A COLLIN, MG, BMP, ADIFF, GFR, CBC, HFP #### [address] [address] ALT [Catalytic activity/Vol] 18 U/L Normal 10-49 [facility] Comment on above: Performed By: #### A COLLIN, MG, BMP, ADIFF, GFR, CBC, HFP #### [address] [address] Bili Direct 0.2 mg/dL Normal 0.0-0.4 [facility] Comment on above: Result Comment: Use of this assay is not recommended for patients undergoing treatment with eltrombopag due to the potential for falsely elevated results. Performed By: #### A COLLIN, MG, BMP, ADIFF, GFR, CBC, HFP #### [place] [address] Bili Total 0.60 mg/dL Normal 0.20-1.20 [facility] Comment on above: Result Comment: Use of this assay is not recommended for patients undergoing treatment with eltrombopag due to the potential for falsely elevated results. Performed By: #### A COLLIN, MG, BMP, ADIFF, GFR, CBC, HFP #### [place] [address] Total Protein 5.9 G/dL Normal 5.7-8.2 [facility] Comment on above: Performed By: #### A COLLIN, MG, BMP, ADIFF, GFR, CBC, HFP #### [place] [address] LABORATORYOrdered By: SYSTEM SYSTEM on 05-17-2024 Albumin [...] MG, BMP, ADIFF, GFR, CBC, HFP #### [address] [address] .Auto Diffon 05-16-2024 Basophil, Absolute 0.1 10 3/mcL Normal 0.0-0.3 [facility] Comment on above: Performed By: #### A COLLIN, MG, BMP, ADIFF, GFR, CBC, HFP #### [address] [address] Basophils/100 WBC (Bld) 0.9 % Normal 0.0-2.5 [facility] Comment on above: Performed By: #### A COLLIN, MG, BMP, ADIFF, GFR, CBC, HFP #### [address] [address] Eosinophil, Absolute 0.4 10 3/mcL Normal 0.0-0.7 [facility] Comment on above: Performed By: #### A COLLIN, MG, BMP, ADIFF, GFR, CBC, HFP #### [address] [address] Eosinophils/100 WBC (Bld) 3.6 % Normal 0.0-6.0 [facility] Comment on above: Performed By: #### A COLLIN, MG, BMP, ADIFF, GFR, CBC, HFP #### [address] [address] Lymphocyte, Absolute 1.0 10 3/mcL Normal 0.9-4.3 [facility] Comment on above: Performed By: #### A COLLIN, MG, BMP, ADIFF, GFR, CBC, HFP #### [address] [address] Lymphocytes/100 WBC (Bld) 9.8 % Low 20.0-40.0 [facility] Comment on above: Performed By: #### A COLLIN, MG, BMP, ADIFF, GFR, CBC, HFP #### [address] [address] Monocyte, Absolute 1.0 10 3/mcL Normal 0.1-1.4 [facility] Comment on above: Performed By: #### A COLLIN, MG, BMP, ADIFF, GFR, CBC, HFP #### [address] [address] Monocytes/100 WBC (Bld) 9.6 % Normal 2.0-13.0 [facility] Comment on above: Performed By: #### A COLLIN, MG, BMP, ADIFF, GFR, CBC, HFP #### [address] [address] Neutrophils/100 WBC (Bld) 76.1 % High 50.0-75.0 [facility] Comment on above: Performed By: #### A COLLIN, MG, BMP, ADIFF, GFR, CBC, HFP #### [address] [address] .GFRon 05-16-2024 Estimated Glomerular Filtration Rate 45 ml/min/1.73sqm Normal [facility] Comment on above: Result [...] MG, BMP, ADIFF, GFR, CBC, HFP #### [address] [address] .NEUABSon 05-16-2024 Neutrophil, Absolute 7.8 10 3/mcL Normal 2.3-8.1 [facility] Comment on above: Performed By: #### A COLLIN, MG, BMP, ADIFF, GFR, CBC, HFP #### [place] [id number] APTTon 05-16-2024 aPTT Coag (Bld) [Time] 57.1 s High 25.0-35.0 [facility] Comment on above: Result Comment: For Heparin anticoagulation therapy, the recommended therapeutic range is: 54-77 seconds (APTT Correlation with Anti-Xa therapeutic range of 0.3-0.7 units/ml). PLEASE REFERENCE THE PHARMACY PROTOCOL FOR DOSING. Performed By: #### A COLLIN, MG, BMP, ADIFF, GFR, CBC, HFP #### [address] [address] BMPon 05-16-2024 BUN/Creatinine Ratio 18.9 ratio Normal 10.0-22.0 [facility] Comment on above: Performed By: #### A COLLIN, MG, BMP, ADIFF, GFR, CBC, HFP #### [address] [address] Calcium [Mass/Vol] 9.9 mg/dL Normal 8.7-10.4 [facility] Comment on above: Performed By: #### A COLLIN, MG, BMP, ADIFF, GFR, CBC, HFP #### [address] [address] Chloride [Moles/Vol] 91 mmol/L Low 98-110 [facility] Comment on above: Performed By: #### A COLLIN, MG, BMP, ADIFF, GFR, CBC, HFP #### [address] [address] CO2 [Moles/Vol] 38 mmol/L High 22-32 [facility] Comment on above: Performed By: #### A COLLIN, MG, BMP, ADIFF, GFR, CBC, HFP #### [address] [address] Creatinine [Mass/Vol] 1.22 mg/dL High 0.50-1.20 [facility] Comment on above: Result Comment: Test ing performed on homedeco2u analyzer using enzymatic creatinine methodology. Performed By: #### A COLLIN, MG, BMP, ADIFF, GFR, CBC, HFP #### [address] [address] Electrolyte Balance 8.0 mEq/L Normal 4.0-15.0 [facility] Comment on above: Performed By: #### A COLLIN, MG, BMP, ADIFF, GFR, CBC, HFP #### [address] [address] Glucose [Mass/Vol] 93 mg/dL Normal 82-115 [facility] Comment on above: Performed By: #### A COLLIN, MG, BMP, ADIFF, GFR, CBC, HFP #### [address] [address] Potassium [Moles/Vol] 3.9 mmol/L Normal 3.5-5.0 [facility] Comment on above: Performed By: #### A COLLIN, MG, BMP, ADIFF, GFR, CBC, HFP #### [place] [address] Sodium [Moles/Vol] 137 mmol/L Normal 136-145 [facility] Comment on above: Performed By: #### A COLLIN, MG, BMP, ADIFF, GFR, CBC, HFP #### [place] [address] Urea nitrogen [Mass/Vol] 23.0 mg/dL High 8.0-22.0 [facility] Comment on above: Performed By: #### A COLLIN, MG, BMP, ADIFF, GFR, CBC, HFP #### [place] [address] CBCon 05-16-2024 Erythrocyte distribution width (RBC) [Ratio] 13.3 % Normal 11.5-15.5 [facility] Comment on above: Performed By: #### A COLLIN, MG, BMP, ADIFF, GFR, CBC, HFP #### [place] [address] Hematocrit (Bld) [Volume fraction] 42.1 % Normal 34.0-46.0 [facility] Comment on above: Performed By: #### A COLLIN, MG, BMP, ADIFF, GFR, CBC, HFP #### [place] [id number] Hgb 14.5 G/dL Normal 12.0-16.0 [facility] Comment on above: Performed By: #### A COLLIN, MG, BMP, ADIFF, GFR, CBC, HFP #### [place] [address] MCH (RBC) [Entitic mass] 30.2 pg Normal 27.0-33.0 [facility] Comment on above: Performed By: #### A COLLIN, MG, BMP, ADIFF, GFR, CBC, HFP #### [place] [address] MCHC 34.5 G/dL Normal 32.0-36.0 [facility] Comment on above: Performed By: #### A COLLIN, MG, BMP, ADIFF, GFR, CBC, HFP #### [place] [address] MCV (RBC) [Entitic vol] 87.7 fL Normal 80.0-99.0 [facility] Comment on above: Performed By: #### A COLLIN, MG, BMP, ADIFF, GFR, CBC, HFP #### [place] [address] Platelet 275 10 3/mcL Normal 150-450 [facility] Comment on above: Performed By: #### A COLLIN, MG, BMP, ADIFF, GFR, CBC, HFP #### [place] [address] Platelet mean volume (Bld) [Entitic vol] 7.8 fL Normal 6.6-10.5 [facility] Comment on above: Performed By: #### A COLLIN, MG, BMP, ADIFF, GFR, CBC, HFP #### [place] [address] RBC 4.80 10 6/mcL Normal 4.10-5.30 [facility] Comment on above: Performed By: #### A COLLIN, MG, BMP, ADIFF, GFR, CBC, HFP #### [place] [address] WBC 10.2 10 3/mcL Normal 4.5-10.8 [facility] Comment on above: Performed By: #### A COLLIN, MG, BMP, ADIFF, GFR, CBC, HFP #### [address] [address] HFPon 05-16-2024 Bili Indirect 0.4 mg/dL Normal 0.1-10.0 [facility] Comment on above: Performed By: #### A COLLIN, MG, BMP, ADIFF, GFR, CBC, HFP #### [place] [address] Albumin Level 3.3 G/dL Normal 3.2-4.8 [facility] Comment on above: Performed By: #### A COLLIN, MG, BMP, ADIFF, GFR, CBC, HFP #### [place] [address] Albumin/Globulin [Mass ratio] 1.2 {ratio} Normal 0.9-1.6 [facility] Comment on above: Performed By: #### A COLLIN, MG, BMP, ADIFF, GFR, CBC, HFP #### [place] [address] ALP [Catalytic activity/Vol] 97 U/L Normal 38-126 [facility] Comment on above: Performed By: #### A COLLIN, MG, BMP, ADIFF, GFR, CBC, HFP #### [place] [address] ALT [Catalytic activity/Vol] 21 U/L Normal 10-49 [facility] Comment on above: Performed By: #### A COLLIN, MG, BMP, ADIFF, GFR, CBC, HFP #### [place] [id number] AST [Catalytic activity/Vol] 18 U/L Normal 8-34 [facility] Comment on above: Performed By: #### A COLLIN, MG, BMP, ADIFF, GFR, CBC, HFP #### [place] [address] Bili Direct 0.2 mg/dL Normal 0.0-0.4 [facility] Comment on above: Result Comment: Use of this assay is not recommended for patients undergoing treatment with eltrombopag due to the potential for falsely elevated results. Performed By: #### A COLLIN, MG, BMP, ADIFF, GFR, CBC, HFP #### [place] [address] Bili Total 0.60 mg/dL Normal 0.20-1.20 [facility] Comment on above: Result Comment: Use of this assay is not recommended for patients undergoing treatment with eltrombopag due to the potential for falsely elevated results. Performed By: #### A COLLIN, MG, BMP, ADIFF, GFR, CBC, HFP #### [place] [address] Globulin 2.7 G/dL Normal 1.5-3.8 [facility] Comment on above: Performed By: #### A COLLIN, MG, BMP, ADIFF, GFR, CBC, HFP #### [address] [address] Total Protein 6.0 G/dL Normal 5.7-8.2 [facility] Comment on above: Performed By: #### A COLLIN, MG, BMP, ADIFF, GFR, CBC, HFP #### [address] [address] LABORATORYOrdered By: SYSTEM SYSTEM on 05-16-2024 Albumin [...] above: Interpretive Data: T esting performed on [employer] analyzer using enzymatic creatinine methodology. Electrolyte Balance [...] 05-16-2024 Magnesium [Mass/Vol] 1.9 mg/dL Normal 1.6-2.4 [facility] Comment on above: Performed By: #### A COLLIN, MG, BMP, ADIFF, GFR, CBC, HFP #### [address] [address] .Auto Diffon 05-15-2024 Basophil, Absolute 0.1 10 3/mcL Normal 0.0-0.3 [facility] Comment on above: Performed By: #### A COLLIN, MG, BMP, ADIFF, GFR, CBC, HFP #### [address] [address] Basophils/100 WBC (Bld) 0.9 % Normal 0.0-2.5 [facility] Comment on above: Performed By: #### A COLLIN, MG, BMP, ADIFF, GFR, CBC, HFP #### [address] [address] Eosinophil, Absolute 0.4 10 3/mcL Normal 0.0-0.7 [facility] Comment on above: Performed By: #### A COLLIN, MG, BMP, ADIFF, GFR, CBC, HFP #### [address] [address] Eosinophils/100 WBC (Bld) 4.3 % Normal 0.0-6.0 [facility] Comment on above: Performed By: #### A COLLIN, MG, BMP, ADIFF, GFR, CBC, HFP #### [address] [address] Lymphocyte, Absolute 1.1 10 3/mcL Normal 0.9-4.3 [facility] Comment on above: Performed By: #### A COLLIN, MG, BMP, ADIFF, GFR, CBC, HFP #### [address] [address] Lymphocytes/100 WBC (Bld) 10.6 % Low 20.0-40.0 [facility] Comment on above: Performed By: #### A COLLIN, MG, BMP, ADIFF, GFR, CBC, HFP #### [place] [id number] [place] [address] Monocyte, Absolute 0.9 10 3/mcL Normal 0.1-1.4 [facility] Comment on above: Performed By: #### A COLLIN, MG, BMP, ADIFF, GFR, CBC, HFP #### [address] [address] Monocytes/100 WBC (Bld) 9.1 % Normal 2.0-13.0 [facility] Comment on above: Performed By: #### A COLLIN, MG, BMP, ADIFF, GFR, CBC, HFP #### [address] [address] Neutrophils/100 WBC (Bld) 75.1 % High 50.0-75.0 [facility] Comment on above: Performed By: #### A COLLIN, MG, BMP, ADIFF, GFR, CBC, HFP #### [address] [address] .GFRon 05-15-2024 Estimated Glomerular Filtration Rate 53 ml/min/1.73sqm [facility] MA[facility] Comment on above: Result Comment: Stages [...] Performed By: #### G FR, BMP #### [address] [address] GFR >60 Normal [facility] Comment on above: Result Comment: [...] MG, BMP, ADIFF, GFR, CBC, HFP #### [address] [address] GFR Non- 56 ml/min/1.73sqm Normal [facility] Comment on above: Result [...] MG, BMP, ADIFF, GFR, CBC, HFP #### [address] [address] .NEUABSon 05-15-2024 Neutrophil, Absolute 7.8 10 3/mcL Normal 2.3-8.1 [facility] MAIN Comment on above: Performed By: #### A COLLIN, MG, BMP, ADIFF, GFR, CBC, HFP #### [address] [address] APTTon 05-15-2024 aPTT Coag (Bld) [Time] 53.5 s High 25.0-35.0 [facility] MAIN Comment on above: Order Comment: QNS - please recollect Result Comment: For Heparin anticoagulation therapy, the recommended therapeutic range is: 54-77 seconds (APTT Correlation with Anti-Xa therapeutic range of 0.3-0.7 units/ml). PLEASE REFERENCE THE PHARMACY PROTOCOL FOR DOSING. Performed By: #### G FR, BMP #### [address] [address] [facility] BUN/Creatinine Ratio 18.9 ratio Normal 10.0-22.0 [facility] MAIN Comment on above: Performed By: #### G FR, BMP #### [address] [address] Calcium [Mass/Vol] 10.0 mg/dL Normal 8.7-10.4 [facility] MA[facility] Comment on above: Performed By: #### G FR, BMP #### [address] [address] Chloride [Moles/Vol] 96 mmol/L Low 98-110 [facility] MAIN Comment on above: Performed By: #### G FR, BMP #### [address] [address] CO2 [Moles/Vol] 34 mmol/L High 22-32 [facility] MAIN Comment on above: Performed By: #### G FR, BMP #### [address] [address] Creatinine [Mass/Vol] 1.06 mg/dL Normal 0.50-1.20 [facility] MAIN Comment on above: Result Comment: Test ing performed on homedeco2u analyzer using enzymatic creatinine methodology. Performed By: #### G FR, BMP #### [address] [address] Electrolyte Balance 7.0 mEq/L Normal 4.0-15.0 [facility] MAIN Comment on above: Performed By: #### G FR, BMP #### [address] [address] Glucose [Mass/Vol] 84 mg/dL Normal 82-115 [facility] Comment on above: Performed By: #### G FR, BMP #### [facility] [address] [place], [place] [address] Potassium [Moles/Vol] 4.2 mmol/L Normal 3.5-5.0 [facility] Comment on above: Performed By: #### G FR, BMP #### [address] [address] Sodium [Moles/Vol] 137 mmol/L Normal 136-145 [facility] Comment on above: Performed By: #### G FR, BMP #### [address] [address] Urea nitrogen [Mass/Vol] 20.0 mg/dL Normal 8.0-22.0 [facility] Comment on above: Performed By: #### G FR, BMP #### [address] [address] BUN/Creatinine Ratio 17.7 ratio Normal 10.0-22.0 [facility] Comment on above: Performed By: #### A COLLIN, MG, BMP, ADIFF, GFR, CBC, HFP #### [address] [address] Calcium [Mass/Vol] 9.5 mg/dL Normal 8.7-10.4 [facility] Comment on above: Performed By: #### A COLLIN, MG, BMP, ADIFF, GFR, CBC, HFP #### [address] [address] Chloride [Moles/Vol] 98 mmol/L Normal 98-110 [facility] Comment on above: Performed By: #### A COLLIN, MG, BMP, ADIFF, GFR, CBC, HFP #### [address] [address] CO2 [Moles/Vol] 31 mmol/L Normal 22-32 [facility] Comment on above: Performed By: #### A COLLIN, MG, BMP, ADIFF, GFR, CBC, HFP #### [address] [address] Creatinine [Mass/Vol] 0.96 mg/dL Normal 0.50-1.20 [facility] Comment on above: Result Comment: Test ing performed on homedeco2u analyzer using enzymatic creatinine methodology. Performed By: #### A COLLIN, MG, BMP, ADIFF, GFR, CBC, HFP #### [place] [id number] Electrolyte Balance 9.0 mEq/L Normal 4.0-15.0 [facility] Comment on above: Performed By: #### A COLLIN, MG, BMP, ADIFF, GFR, CBC, HFP #### [place] [id number] Glucose [Mass/Vol] 86 mg/dL Normal 82-115 [facility] Comment on above: Performed By: #### A COLLIN, MG, BMP, ADIFF, GFR, CBC, HFP #### [place] [id number] Potassium [Moles/Vol] 3.7 mmol/L Normal 3.5-5.0 [facility] Comment on above: Performed By: #### A COLLIN, MG, BMP, ADIFF, GFR, CBC, HFP #### [place] [id number] Sodium [Moles/Vol] 138 mmol/L Normal 136-145 [facility] Comment on above: Performed By: #### A COLLIN, MG, BMP, ADIFF, GFR, CBC, HFP #### [place] [address] Urea nitrogen [Mass/Vol] 17.0 mg/dL Normal 8.0-22.0 [facility] Comment on above: Performed By: #### A COLLIN, MG, BMP, ADIFF, GFR, CBC, HFP #### [address] [address] CBCon 05-15-2024 Erythrocyte distribution width (RBC) [Ratio] 13.4 % Normal 11.5-15.5 [facility] Comment on above: Performed By: #### A COLLIN, MG, BMP, ADIFF, GFR, CBC, HFP #### [place] [id number] Hematocrit (Bld) [Volume fraction] 42.5 % Normal 34.0-46.0 [facility] Comment on above: Performed By: #### A COLLIN, MG, BMP, ADIFF, GFR, CBC, HFP #### [place] [address] Hgb 14.5 G/dL Normal 12.0-16.0 [facility] Comment on above: Performed By: #### A COLLIN, MG, BMP, ADIFF, GFR, CBC, HFP #### [place] [address] MCH (RBC) [Entitic mass] 30.2 pg Normal 27.0-33.0 [facility] Comment on above: Performed By: #### A COLLIN, MG, BMP, ADIFF, GFR, CBC, HFP #### [place] [address] MCHC 34.0 G/dL Normal 32.0-36.0 [facility] Comment on above: Performed By: #### A COLLIN, MG, BMP, ADIFF, GFR, CBC, HFP #### [place] [address] MCV (RBC) [Entitic vol] 88.8 fL Normal 80.0-99.0 [facility] Comment on above: Performed By: #### A COLLIN, MG, BMP, ADIFF, GFR, CBC, HFP #### [place] [address] Platelet 285 10 3/mcL Normal 150-450 [facility] Comment on above: Performed By: #### A COLLIN, MG, BMP, ADIFF, GFR, CBC, HFP #### [place] [address] Platelet mean volume (Bld) [Entitic vol] 7.9 fL Normal 6.6-10.5 [facility] Comment on above: Performed By: #### A OCLLIN, MG, BMP, ADIFF, GFR, CBC, HFP #### [place] [address] RBC 4.78 10 6/mcL Normal 4.10-5.30 [facility] Comment on above: Performed By: #### A COLLIN, MG, BMP, ADIFF, GFR, CBC, HFP #### [place] [address] WBC 10.4 10 3/mcL Normal 4.5-10.8 [facility] Comment on above: Performed By: #### A COLLIN, MG, BMP, ADIFF, GFR, CBC, HFP #### [address] [address] HFPon 05-15-2024 Bili Indirect 0.3 mg/dL Normal 0.1-10.0 [facility] Comment on above: Performed By: #### A COLLIN, MG, BMP, ADIFF, GFR, CBC, HFP #### [place] [address] Albumin Level 3.2 G/dL Normal 3.2-4.8 [facility] Comment on above: Performed By: #### A COLLIN, MG, BMP, ADIFF, GFR, CBC, HFP #### [place] [address] Albumin/Globulin [Mass ratio] 1.2 {ratio} Normal 0.9-1.6 [facility] Comment on above: Performed By: #### A COLLIN, MG, BMP, ADIFF, GFR, CBC, HFP #### [address] [address] ALP [Catalytic activity/Vol] 98 U/L Normal 38-126 [facility] Comment on above: Performed By: #### A COLLIN, MG, BMP, ADIFF, GFR, CBC, HFP #### [address] [address] ALT [Catalytic activity/Vol] 22 U/L Normal 10-49 [facility] Comment on above: Performed By: #### A COLLIN, MG, BMP, ADIFF, GFR, CBC, HFP #### [address] [address] AST [Catalytic activity/Vol] 21 U/L Normal 8-34 [facility] Comment on above: Performed By: #### A COLLIN, MG, BMP, ADIFF, GFR, CBC, HFP #### [place] [address] Bili Direct 0.2 mg/dL Normal 0.0-0.4 [facility] Comment on above: Result Comment: Use of this assay is not recommended for patients undergoing treatment with eltrombopag due to the potential for falsely elevated results. Performed By: #### A COLLIN, MG, BMP, ADIFF, GFR, CBC, HFP #### [place] [address] Bili Total 0.50 mg/dL Normal 0.20-1.20 [facility] Comment on above: Result Comment: Use of this assay is not recommended for patients undergoing treatment with eltrombopag due to the potential for falsely elevated results. Performed By: #### A COLLIN, MG, BMP, ADIFF, GFR, CBC, HFP #### [place] [address] Globulin 2.6 G/dL Normal 1.5-3.8 [facility] Comment on above: Performed By: #### A COLLIN, MG, BMP, ADIFF, GFR, CBC, HFP #### [place] [address] Total Protein 5.8 G/dL Normal 5.7-8.2 [facility] Comment on above: Performed By: #### A COLLIN, MG, BMP, ADIFF, GFR, CBC, HFP #### [place] [address] LABORATORYOrdered By: SYSTEM SYSTEM on 05-15-2024 GFR/1.73 [...] 05-15-2024 Magnesium [Mass/Vol] 1.9 mg/dL Normal 1.6-2.4 [facility] Comment on above: Performed By: #### A COLLIN, MG, BMP, ADIFF, GFR, CBC, HFP #### [address] [address] .Auto Diffon 05-14-2024 Basophil, Absolute 0.1 10 3/mcL Normal 0.0-0.3 [facility] Comment on above: Performed By: #### A COLLIN, MG, BMP, ADIFF, GFR, CBC, HFP #### [address] [address] Basophils/100 WBC (Bld) 0.8 % Normal 0.0-2.5 [facility] Comment on above: Performed By: #### A COLLIN, MG, BMP, ADIFF, GFR, CBC, HFP #### [address] [address] Eosinophil, Absolute 0.3 10 3/mcL Normal 0.0-0.7 [facility] Comment on above: Performed By: #### A COLLIN, MG, BMP, ADIFF, GFR, CBC, HFP #### [address] [address] Eosinophils/100 WBC (Bld) 2.5 % Normal 0.0-6.0 [facility] Comment on above: Performed By: #### A COLLIN, MG, BMP, ADIFF, GFR, CBC, HFP #### [address] [address] Lymphocyte, Absolute 0.9 10 3/mcL Normal 0.9-4.3 [facility] Comment on above: Performed By: #### A COLLIN, MG, BMP, ADIFF, GFR, CBC, HFP #### [address] [address] Lymphocytes/100 WBC (Bld) 8.2 % Low 20.0-40.0 [facility] Comment on above: Performed By: #### A COLLIN, MG, BMP, ADIFF, GFR, CBC, HFP #### [address] [address] Monocyte, Absolute 1.1 10 3/mcL Normal 0.1-1.4 [facility] Comment on above: Performed By: #### A COLLIN, MG, BMP, ADIFF, GFR, CBC, HFP #### [address] [address] Monocytes/100 WBC (Bld) 9.6 % Normal 2.0-13.0 [facility] Comment on above: Performed By: #### A COLLIN, MG, BMP, ADIFF, GFR, CBC, HFP #### [address] [address] Neutrophils/100 WBC (Bld) 78.9 % High 50.0-75.0 [facility] Comment on above: Performed By: #### A COLLIN, MG, BMP, ADIFF, GFR, CBC, HFP #### [address] [address] .GFRon 05-14-2024 GFR >60 Normal [facility] Comment on above: Result Comment: [...] MG, BMP, ADIFF, GFR, CBC, HFP #### [place] [address] GFR Non- 51 ml/min/1.73sqm [facility] MAIN Comment on above: Result Comment: GFR [...] MG, BMP, ADIFF, GFR, CBC, HFP #### [place] [id number] .NEUABSon 05-14-2024 Neutrophil, Absolute 8.8 10 3/mcL High 2.3-8.1 [facility] Comment on above: Performed By: #### A COLLIN, MG, BMP, ADIFF, GFR, CBC, HFP #### [place] [address] A1Con 05-14-2024 Glucose [Mass/Vol] 105 mg/dL [facility] Comment on above: Result Comment: Mayte mated Average Glucose calculated by equation ((28.7xA1C)-46.7) Estimated average glucose (eAG) is a calculated value from Hemoglobin A1C and is veterans employment representative of the average blood glucose level in the last 2-3 month period. Normal range: less than 114 mg/dL Performed By: #### A COLLIN, MG, BMP, ADIFF, GFR, CBC, HFP #### [place] [id number] HbA1c (Bld) [Mass fraction] 5.3 % Normal 4.0-6.0 [facility] Comment on above: Performed By: #### A COLLIN, MG, BMP, ADIFF, GFR, CBC, HFP #### [place] [id number] APTTon 05-14-2024 aPTT Coag (Bld) [Time] 56.4 s High 25.0-35.0 [facility] Comment on above: Result Comment: For Heparin anticoagulation therapy, the recommended therapeutic range is: 54-77 seconds (APTT Correlation with Anti-Xa therapeutic range of 0.3-0.7 units/ml). PLEASE REFERENCE THE PHARMACY PROTOCOL FOR DOSING. Performed By: #### G FR, BMP #### [place] [id number] aPTT Coag (Bld) [Time] 47.2 s High 25.0-35.0 [facility] Comment on above: Result Comment: For Heparin anticoagulation therapy, the recommended therapeutic range is: 54-77 seconds (APTT Correlation with Anti-Xa therapeutic range of 0.3-0.7 units/ml). PLEASE REFERENCE THE PHARMACY PROTOCOL FOR DOSING. Performed By: #### G FR, BMP #### [place] [address] aPTT Coag (Bld) [Time] 61.5 s High 25.0-35.0 [facility] Comment on above: Result Comment: For Heparin anticoagulation therapy, the recommended therapeutic range is: 54-77 seconds (APTT Correlation with Anti-Xa therapeutic range of 0.3-0.7 units/ml). PLEASE REFERENCE THE PHARMACY PROTOCOL FOR DOSING. Performed By: #### A COLLIN, MG, BMP, ADIFF, GFR, CBC, HFP #### [place] [id number] aPTT Coag (Bld) [Time] 38.1 s High 25.0-35.0 [facility] Comment on above: Result Comment: For Heparin anticoagulation therapy, the recommended therapeutic range is: 54-77 seconds (APTT Correlation with Anti-Xa therapeutic range of 0.3-0.7 units/ml). PLEASE REFERENCE THE PHARMACY PROTOCOL FOR DOSING. Performed By: #### G FR, BMP #### [address] [address] BMPon 05-14-2024 BUN/Creatinine Ratio 14.6 ratio Normal 10.0-22.0 [facility] Comment on above: Performed By: #### A COLLIN, MG, BMP, ADIFF, GFR, CBC, HFP #### [place] [id number] Calcium [Mass/Vol] 9.4 mg/dL Normal 8.7-10.4 [facility] Comment on above: Performed By: #### A COLLIN, MG, BMP, ADIFF, GFR, CBC, HFP #### [place] [id number] Chloride [Moles/Vol] 100 mmol/L Normal 98-110 [facility] Comment on above: Performed By: #### A COLLIN, MG, BMP, ADIFF, GFR, CBC, HFP #### [place] [id number] CO2 [Moles/Vol] 31 mmol/L Normal 22-32 [facility] Comment on above: Performed By: #### A COLLIN, MG, BMP, ADIFF, GFR, CBC, HFP #### [place] [address] Creatinine [Mass/Vol] 1.03 mg/dL Normal 0.50-1.20 [facility] Comment on above: Result Comment: Test ing performed on homedeco2u analyzer using enzymatic creatinine methodology. Performed By: #### A COLLIN, MG, BMP, ADIFF, GFR, CBC, HFP #### [place] [id number] Electrolyte Balance 8.0 mEq/L Normal 4.0-15.0 [facility] Comment on above: Performed By: #### A COLLIN, MG, BMP, ADIFF, GFR, CBC, HFP #### [address] [address] Glucose [Mass/Vol] 99 mg/dL Normal 82-115 [facility] Comment on above: Performed By: #### A COLLIN, MG, BMP, ADIFF, GFR, CBC, HFP #### [address] [address] Potassium [Moles/Vol] 3.8 mmol/L Normal 3.5-5.0 [facility] Comment on above: Performed By: #### A COLLIN, MG, BMP, ADIFF, GFR, CBC, HFP #### [address] [address] Sodium [Moles/Vol] 139 mmol/L Normal 136-145 [facility] Comment on above: Performed By: #### A COLLIN, MG, BMP, ADIFF, GFR, CBC, HFP #### [place] [address] Urea nitrogen [Mass/Vol] 15.0 mg/dL Normal 8.0-22.0 [facility] Comment on above: Performed By: #### A COLLIN, MG, BMP, ADIFF, GFR, CBC, HFP #### [address] [address] CBCon 05-14-2024 Erythrocyte distribution width (RBC) [Ratio] 13.7 % Normal 11.5-15.5 [facility] Comment on above: Performed By: #### A COLLIN, MG, BMP, ADIFF, GFR, CBC, HFP #### [place] [id number] Hematocrit (Bld) [Volume fraction] 41.1 % Normal 34.0-46.0 [facility] Comment on above: Performed By: #### A COLLIN, MG, BMP, ADIFF, GFR, CBC, HFP #### [place] [id number] Hgb 14.0 G/dL Normal 12.0-16.0 [facility] Comment on above: Performed By: #### A COLLIN, MG, BMP, ADIFF, GFR, CBC, HFP #### [place] [address] MCH (RBC) [Entitic mass] 30.0 pg Normal 27.0-33.0 [facility] Comment on above: Performed By: #### A COLLIN, MG, BMP, ADIFF, GFR, CBC, HFP #### [place] [address] MCHC 33.9 G/dL Normal 32.0-36.0 [facility] Comment on above: Performed By: #### A COLLIN, MG, BMP, ADIFF, GFR, CBC, HFP #### [place] [address] MCV (RBC) [Entitic vol] 88.5 fL Normal 80.0-99.0 [facility] Comment on above: Performed By: #### A COLLIN, MG, BMP, ADIFF, GFR, CBC, HFP #### [place] [address] Platelet 285 10 3/mcL Normal 150-450 [facility] Comment on above: Performed By: #### A COLLIN, MG, BMP, ADIFF, GFR, CBC, HFP #### [place] [address] Platelet mean volume (Bld) [Entitic vol] 8.1 fL Normal 6.6-10.5 [facility] Comment on above: Performed By: #### A COLLIN, MG, BMP, ADIFF, GFR, CBC, HFP #### [place] [address] RBC 4.65 10 6/mcL Normal 4.10-5.30 [facility] Comment on above: Performed By: #### A COLLIN, MG, BMP, ADIFF, GFR, CBC, HFP #### [place] [address] WBC 11.2 10 3/mcL High 4.5-10.8 [facility] Comment on above: Performed By: #### A COLLIN, MG, BMP, ADIFF, GFR, CBC, HFP #### [place] [address] HFPon 05-14-2024 Bili Indirect 0.3 mg/dL Normal 0.1-10.0 [facility] Comment on above: Performed By: #### A COLLIN, MG, BMP, ADIFF, GFR, CBC, HFP #### [place] [address] Albumin Level 3.4 G/dL Normal 3.2-4.8 [facility] Comment on above: Performed By: #### A COLLIN, MG, BMP, ADIFF, GFR, CBC, HFP #### [place] [address] Albumin/Globulin [Mass ratio] 1.4 {ratio} Normal 0.9-1.6 [facility] Comment on above: Performed By: #### A COLLIN, MG, BMP, ADIFF, GFR, CBC, HFP #### [place] [address] ALP [Catalytic activity/Vol] 101 U/L Normal 38-126 [facility] Comment on above: Performed By: #### A COLLIN, MG, BMP, ADIFF, GFR, CBC, HFP #### [place] [address] ALT [Catalytic activity/Vol] 29 U/L Normal 10-49 [facility] Comment on above: Performed By: #### A COLLIN, MG, BMP, ADIFF, GFR, CBC, HFP #### [place] [address] AST [Catalytic activity/Vol] 23 U/L Normal 8-34 [facility] Comment on above: Performed By: #### A COLLIN, MG, BMP, ADIFF, GFR, CBC, HFP #### [place] [address] Bili Direct 0.2 mg/dL Normal 0.0-0.4 [facility] Comment on above: Result Comment: Use of this assay is not recommended for patients undergoing treatment with eltrombopag due to the potential for falsely elevated results. Performed By: #### A COLLIN, MG, BMP, ADIFF, GFR, CBC, HFP #### [place] [address] Bili Total 0.50 mg/dL Normal 0.20-1.20 [facility] Comment on above: Result Comment: Use of this assay is not recommended for patients undergoing treatment with eltrombopag due to the potential for falsely elevated results. Performed By: #### A COLLIN, MG, BMP, ADIFF, GFR, CBC, HFP #### [address] [address] Globulin 2.5 G/dL Normal 1.5-3.8 [facility] Comment on above: Performed By: #### A COLLIN, MG, BMP, ADIFF, GFR, CBC, HFP #### [address] [address] Total Protein 5.9 G/dL Normal 5.7-8.2 [facility] Comment on above: Performed By: #### A COLLIN, MG, BMP, ADIFF, GFR, CBC, HFP #### [address] [address] LABORATORYOrdered By: Crissy Dutta on 05-14-2024 Cholesterol [Mass/Vol] 143 mg/dL Normal 50 - 199 mg/dL [facility] Comment on above: Interpretive Data: C holesterol Reference Interval: Less than 200 Desirable 200-239 Borderline high risk 240 and above High risk Cholesterol in HDL [Mass/Vol] 54 mg/dL Normal 40 - 59 mg/dL [facility] Cholesterol in LDL [Mass/Vol] 77 mg/dL Normal 0 - 129 mg/dL [facility] Triglyceride [Mass/Vol] 61 mg/dL Normal 3 - 149 mg/dL [facility] LABORATORYOrdered By: SYSTEM SYSTEM on 05-14-2024 [...] calculated value from Hemoglobin A1C and is veterans employment representative of the average blood glucose level [...] ng/L Male: 0-54 ng/L Testing performed on EarLens analyzer using direct chemiluminescent technology. LIPIDon 05-14-2024 Cholesterol [Mass/Vol] 143 mg/dL Normal 50-199 [facility] Comment on above: Result Comment: Chol esterol Reference Interval: Less than 200 Desirable 200-239 Borderline high risk 240 and above High risk Performed By: #### A COLLIN, MG, BMP, ADIFF, GFR, CBC, HFP #### [place] [address] Cholesterol in HDL [Mass/Vol] 54 mg/dL Normal 40-59 [facility] Comment on above: Performed By: #### A COLLIN, MG, BMP, ADIFF, GFR, CBC, HFP #### [place] [address] Cholesterol in LDL [Mass/Vol] 77 mg/dL Normal 0-129 [facility] Comment on above: Performed By: #### A COLLIN, MG, BMP, ADIFF, GFR, CBC, HFP #### [place] [address] Triglyceride [Mass/Vol] 61 mg/dL Normal 3-149 [facility] Comment on above: Performed By: #### A COLLIN, MG, BMP, ADIFF, GFR, CBC, HFP #### [place] [address] MGon 05-14-2024 Magnesium [Mass/Vol] 2.0 mg/dL Normal 1.6-2.4 [facility] Comment on above: Performed By: #### A COLLIN, MG, BMP, ADIFF, GFR, CBC, HFP #### [address] [address] TROPHSon 05-14-2024 High Sensitivity Troponin I 133 ng/L High 0-34 [facility] Comment on above: Result Comment: High Sensitive Troponin I Reference Ranges: Female: 0-34 ng/L Male: 0-54 ng/L Testing performed on EarLens analyzer using direct chemiluminescent technology. Performed By: #### A COLLIN, MG, BMP, ADIFF, GFR, CBC, HFP #### [place] [address] TSHRon 05-14-2024 TSH 1.218 mIU/mL Normal 0.550-4.780 [facility] Comment on above: Performed By: #### A COLLIN, MG, BMP, ADIFF, GFR, CBC, HFP #### [address] [address] .Auto Diffon 05-13-2024 Basophil, Absolute 0.1 10 3/mcL Normal 0.0-0.2 [facility] Comment on above: Performed By: #### M DW, MG, GFR, BMP, CBC, ANEU, TROPHS, ADIFF #### [address] [address] Basophils/100 WBC (Bld) 1.2 % Normal 0.0-2.5 [facility] Comment on above: Performed By: #### M DW, MG, GFR, BMP, CBC, ANEU, TROPHS, ADIFF #### [address] [address] Eosinophil, Absolute 0.2 10 3/mcL Normal 0.0-0.7 [facility] Comment on above: Performed By: #### M DW, MG, GFR, BMP, CBC, ANEU, TROPHS, ADIFF #### [address] [address] Eosinophils/100 WBC (Bld) 2.3 % Normal 0.0-7.0 [facility] Comment on above: Performed By: #### M DW, MG, GFR, BMP, CBC, ANEU, TROPHS, ADIFF #### [address] [address] Lymphocyte, Absolute 1.0 10 3/mcL Normal 0.9-4.3 [facility] Comment on above: Performed By: #### M DW, MG, GFR, BMP, CBC, ANEU, TROPHS, ADIFF #### [address] [address] Lymphocytes/100 WBC (Bld) 9.5 % Low 20.0-40.0 [facility] Comment on above: Performed By: #### M DW, MG, GFR, BMP, CBC, ANEU, TROPHS, ADIFF #### [address] [address] Monocyte, Absolute 0.8 10 3/mcL Normal 0.1-1.4 [facility] Comment on above: Performed By: #### M DW, MG, GFR, BMP, CBC, ANEU, TROPHS, ADIFF #### [address] [address] Monocytes/100 WBC (Bld) 8.1 % Normal 2.0-13.0 [facility] Comment on above: Performed By: #### M DW, MG, GFR, BMP, CBC, ANEU, TROPHS, ADIFF #### [address] [address] Neutrophils/100 WBC (Bld) 78.9 % High 50.0-75.0 [facility] Comment on above: Performed By: #### M DW, MG, GFR, BMP, CBC, ANEU, TROPHS, ADIFF #### [address] [address] .GFRon 05-13-2024 GFR 70 ml/min/1.73sqm [facility] Comment on above: Result Comment: GFR Population [...] GFR, BMP, CBC, ANEU, TROPHS, ADIFF #### [address] [address] GFR Non- 58 ml/min/1.73sqm [facility] Comment on above: Result Comment: GFR Population [...] GFR, BMP, CBC, ANEU, TROPHS, ADIFF #### [address] [address] .MDWon 05-13-2024 Monocyte Distribution Width 18.21 Normal 0.00-20.00 [facility] Comment on above: Result Comment: For ED adult patients suspected of sepsis, MDW<=20.0 does not rule out sepsis or risk of sepsis Performed By: #### M DW, MG, GFR, BMP, CBC, ANEU, TROPHS, ADIFF #### [address] [address] .NEUABSon 05-13-2024 Neutrophil, Absolute 8.3 10 3/mcL High 2.3-8.1 [facility] Comment on above: Performed By: #### M DW, MG, GFR, BMP, CBC, ANEU, TROPHS, ADIFF #### [address] [address] APTTon 05-13-2024 aPTT Coag (Bld) [Time] 43.1 s High 25.0-35.0 [facility] Comment on above: Result Comment: For Heparin anticoagulation therapy, the recommended therapeutic range is: 54-77 seconds (APTT Correlation with Anti-Xa therapeutic range of 0.3-0.7 units/ml). PLEASE REFERENCE THE PHARMACY PROTOCOL FOR DOSING. Performed By: #### G FR, BMP #### [facility] [address] [place] [id number] aPTT Coag (Bld) [Time] 32.5 s Normal 25.0-35.0 [facility] Comment on above: Result Comment: For Heparin anticoagulation therapy, the recommended therapeutic range is: 45.4-75.9 seconds. Patients on heparin therapy may have an extreme result. Performed By: #### M DW, MG, GFR, BMP, CBC, ANEU, TROPHS, ADIFF #### [address] [address] CBCon 05-13-2024 Erythrocyte distribution width (RBC) [Ratio] 13.9 % Normal 11.5-15.5 [facility] Comment on above: Performed By: #### M DW, MG, GFR, BMP, CBC, ANEU, TROPHS, ADIFF #### [place] [address] Hematocrit (Bld) [Volume fraction] 42.2 % Normal 34.0-46.0 [facility] Comment on above: Performed By: #### M DW, MG, GFR, BMP, CBC, ANEU, TROPHS, ADIFF #### [place] [address] Hgb 14.5 G/dL Normal 12.0-16.0 [facility] Comment on above: Performed By: #### M DW, MG, GFR, BMP, CBC, ANEU, TROPHS, ADIFF #### [place] [id number] MCH (RBC) [Entitic mass] 30.2 pg Normal 27.0-33.0 [facility] Comment on above: Performed By: #### M DW, MG, GFR, BMP, CBC, ANEU, TROPHS, ADIFF #### [place] [address] MCHC 34.3 G/dL Normal 32.0-36.0 [facility] Comment on above: Performed By: #### M DW, MG, GFR, BMP, CBC, ANEU, TROPHS, ADIFF #### [place] [address] MCV (RBC) [Entitic vol] 88.1 fL Normal 80.0-99.0 [facility] Comment on above: Performed By: #### M DW, MG, GFR, BMP, CBC, ANEU, TROPHS, ADIFF #### [address] [address] Platelet 306 10 3/mcL Normal 150-450 [facility] Comment on above: Performed By: #### M DW, MG, GFR, BMP, CBC, ANEU, TROPHS, ADIFF #### [address] [address] Platelet mean volume (Bld) [Entitic vol] 7.8 fL Normal 6.6-10.5 [facility] Comment on above: Performed By: #### M DW, MG, GFR, BMP, CBC, ANEU, TROPHS, ADIFF #### [address] [address] RBC 4.79 10 6/mcL Normal 4.10-5.30 [facility] Comment on above: Performed By: #### M DW, MG, GFR, BMP, CBC, ANEU, TROPHS, ADIFF #### [address] [address] WBC 10.5 10 3/mcL Normal 4.5-10.8 [facility] Comment on above: Performed By: #### M DW, MG, GFR, BMP, CBC, ANEU, TROPHS, ADIFF #### [address] [address] CMPon 05-13-2024 Albumin Level 3.6 G/dL Normal 3.4-4.8 [facility] Comment on above: Performed By: #### M DW, MG, GFR, BMP, CBC, ANEU, TROPHS, ADIFF #### [address] [address] Albumin/Globulin [Mass ratio] 1.4 {ratio} Normal 1.1-2.5 [facility] Comment on above: Performed By: #### M DW, MG, GFR, BMP, CBC, ANEU, TROPHS, ADIFF #### [address] [address] ALP [Catalytic activity/Vol] 114 U/L Normal 40-135 [facility] Comment on above: Performed By: #### M DW, MG, GFR, BMP, CBC, ANEU, TROPHS, ADIFF #### [address] [address] ALT [Catalytic activity/Vol] 41 U/L Normal 14-59 [facility] Comment on above: Performed By: #### M DW, MG, GFR, BMP, CBC, ANEU, TROPHS, ADIFF #### [address] [address] AST [Catalytic activity/Vol] 20 U/L Normal 10-40 [facility] Comment on above: Performed By: #### M DW, MG, GFR, BMP, CBC, ANEU, TROPHS, ADIFF #### [address] [address] Bili Total 0.5 mg/dL Normal 0.2-1.0 [facility] Comment on above: Result Comment: Use of this assay is not recommended for patients undergoing treatment with eltrombopag due to the potential for falsely elevated results. Performed By: #### M DW, MG, GFR, BMP, CBC, ANEU, TROPHS, ADIFF #### [address] [address] BUN/Creatinine Ratio 18 ratio Normal 7-27 [facility] Comment on above: Performed By: #### M DW, MG, GFR, BMP, CBC, ANEU, TROPHS, ADIFF #### [address] [address] Calcium [Mass/Vol] 9.4 mg/dL Normal 8.4-10.2 [facility] Comment on above: Performed By: #### M DW, MG, GFR, BMP, CBC, ANEU, TROPHS, ADIFF #### [address] [address] Chloride [Moles/Vol] 98 mmol/L Normal 98-107 [facility] Comment on above: Performed By: #### M DW, MG, GFR, BMP, CBC, ANEU, TROPHS, ADIFF #### [address] [address] CO2 [Moles/Vol] 29 mmol/L Normal 23-31 [facility] Comment on above: Performed By: #### M DW, MG, GFR, BMP, CBC, ANEU, TROPHS, ADIFF #### [address] [address] Creatinine [Mass/Vol] 0.93 mg/dL Normal 0.55-1.02 [facility] Comment on above: Result Comment: Test ing performed on [employer] Dimension EXL analyzer using a modified kinetic Josse technique. Performed By: #### M DW, MG, GFR, BMP, CBC, ANEU, TROPHS, ADIFF #### [place] [address] Electrolyte Balance 5.0 mEq/L Normal 4.0-15.0 [facility] Comment on above: Performed By: #### M DW, MG, GFR, BMP, CBC, ANEU, TROPHS, ADIFF #### [place] [address] Globulin 2.6 G/dL Normal [facility] Comment on above: Performed By: #### M DW, MG, GFR, BMP, CBC, ANEU, TROPHS, ADIFF #### [place] [address] Glucose [Mass/Vol] 139 mg/dL High 83-110 [facility] Comment on above: Performed By: #### M DW, MG, GFR, BMP, CBC, ANEU, TROPHS, ADIFF #### [place] [address] Potassium [Moles/Vol] 3.9 mmol/L Normal 3.5-5.1 [facility] Comment on above: Performed By: #### M DW, MG, GFR, BMP, CBC, ANEU, TROPHS, ADIFF #### [place] [address] Sodium [Moles/Vol] 132 mmol/L Low 136-145 [facility] Comment on above: Performed By: #### M DW, MG, GFR, BMP, CBC, ANEU, TROPHS, ADIFF #### [place] [id number] [place], [place] [address] Total Protein 6.2 G/dL Low 6.4-8.2 [facility] Comment on above: Performed By: #### M DW, MG, GFR, BMP, CBC, ANEU, TROPHS, ADIFF #### [place] [id number] [place], [place] [address] Urea nitrogen [Mass/Vol] 17 mg/dL Normal 7-18 [facility] Comment on above: Performed By: #### M DW, MG, GFR, BMP, CBC, ANEU, TROPHS, ADIFF #### [place] [id number] [place], [place] [address] LABORATORYOrdered By: SYSTEM SYSTEM on 05-13-2024 aPTT [...] Comment on above: Interpretive Data: Jatinder samano [employer] (CHEST, 1992, 102:[id number]) [...] Workflow SS Natriuretic peptide.B prohormone N-Terminal [Mass/Vol] 52614 pg/mL High 0 - 450 pg/mL AO [...] ng/L Male: 0-76 ng/L Testing performed on [employer] using a homogeneous sandwich chemiluminescent immunoassay based on [employer] technology. Urea nitrogen [Mass/Vol] 17 mg/dL Normal 7 - 18 mg/dL AO ADM SS Urea nitrogen/Creatinine [Mass ratio] 18 ratio Normal 7 - 27 ratio AO ADM SS WBC (Bld) [#/Vol] 10.5 103/mcL Normal 4.5 - 10.8 10^3/mcL AO Workflow SS PBNPon 05-13-2024 Natriuretic peptide B (Bld) [Mass/Vol] 26924 pg/mL High 0-450 [facility] Comment on above: Result Comment: NT-p roBNP results of less than 300 pg/mL effectively rules out acute congestive heart failure with 99% negative predictive value. Performed By: #### M DW, MG, GFR, BMP, CBC, ANEU, TROPHS, ADIFF #### [address] [address] PROon 05-13-2024 PT Coag (PPP) [Time] 11.3 s Normal 9.0-14.4 [facility] Comment on above: Performed By: #### M DW, MG, GFR, BMP, CBC, ANEU, TROPHS, ADIFF #### [address] [address] PT International Ratio 1.0 Normal [facility] Comment on above: Result Comment: [employer] (CHEST, 1992, 102:312S-25S) recommended therapeutic range for oral anticoagulant therapy is: LOW RISK: Prophylaxis of venous thrombosis INR: 2.0-3.0 Treatment of pulmonary embolism 2.0-3.0 Prevention of systemic embolism 2.0-3.0 HIGH RISK: Mechanical prosthetic valves 2.5-3.5 Performed By: #### M DW, MG, GFR, BMP, CBC, ANEU, TROPHS, ADIFF #### [address] [address] TROPHSon 05-13-2024 High Sensitivity Troponin I 207 ng/L High 0-51 [facility] Comment on above: Result Comment: High Sensitive Troponin I Reference Ranges: Female: 0-51 ng/L Male: 0-76 ng/L Testing performed on [employer] using a homogeneous sandwich chemiluminescent immunoassay based on [employer] technology. Performed By: #### M DW, MG, GFR, BMP, CBC, ANEU, TROPHS, ADIFF #### [address] [address] XR CHEST 1 VIEWon 05-13-2024 XR CHEST [...] 05/13/2024 1:39:17 PM Ordering Provider: TERRIE SIMS [facility] .GFRon 04-13-2024 GFR Non- 54 ml/min/1.73sqm [facility] Comment on above: Result Comment: GFR Population [...] GFR, BMP, CBC, ANEU, TROPHS, ADIFF #### [address] [address] GFR 66 ml/min/1.73sqm Normal [facility] Comment on above: Result Comment: GFR [...] GFR, BMP, CBC, ANEU, TROPHS, ADIFF #### [address] [address] BMPon 04-13-2024 BUN/Creatinine Ratio 18 ratio Normal 7-27 [facility] Comment on above: Performed By: #### M DW, MG, GFR, BMP, CBC, ANEU, TROPHS, ADIFF #### [address] [address] Calcium [Mass/Vol] 10.3 mg/dL High 8.4-10.2 [facility] Comment on above: Performed By: #### M DW, MG, GFR, BMP, CBC, ANEU, TROPHS, ADIFF #### [address] [address] Chloride [Moles/Vol] 89 mmol/L Low 98-107 [facility] Comment on above: Performed By: #### M DW, MG, GFR, BMP, CBC, ANEU, TROPHS, ADIFF #### [address] [address] CO2 [Moles/Vol] 34 mmol/L High 23-31 [facility] Comment on above: Performed By: #### M DW, MG, GFR, BMP, CBC, ANEU, TROPHS, ADIFF #### [address] [address] Creatinine [Mass/Vol] 0.98 mg/dL Normal 0.55-1.02 [facility] Comment on above: Result Comment: Test ing performed on [employer] Dimension EXL analyzer using a modified kinetic Josse technique. Performed By: #### M DW, MG, GFR, BMP, CBC, ANEU, TROPHS, ADIFF #### [address] [address] Electrolyte Balance 6.0 mEq/L Normal 4.0-15.0 [facility] Comment on above: Performed By: #### M DW, MG, GFR, BMP, CBC, ANEU, TROPHS, ADIFF #### [address] [address] Glucose [Mass/Vol] 106 mg/dL Normal 83-110 [facility] Comment on above: Performed By: #### M DW, MG, GFR, BMP, CBC, ANEU, TROPHS, ADIFF #### [address] [address] Potassium [Moles/Vol] 4.6 mmol/L Normal 3.5-5.1 [facility] Comment on above: Performed By: #### M DW, MG, GFR, BMP, CBC, ANEU, TROPHS, ADIFF #### [address] [address] Sodium [Moles/Vol] 129 mmol/L Low 136-145 [facility] Comment on above: Performed By: #### M DW, MG, GFR, BMP, CBC, ANEU, TROPHS, ADIFF #### [address] [address] Urea nitrogen [Mass/Vol] 18 mg/dL Normal 7-18 [facility] Comment on above: Performed By: #### M DW, MG, GFR, BMP, CBC, ANEU, TROPHS, ADIFF #### [address] [address] LABORATORYOrdered By: SYSTEM SYSTEM on 04-13-2024 Calcium [...] SS .GFRon 03-12-2024 GFR 74 ml/min/1.73sqm Normal [facility] Comment on above: Result Comment: GFR [...] GFR, BMP, CBC, ANEU, TROPHS, ADIFF #### [address] [address] GFR Non- 61 ml/min/1.73sqm Normal [facility] Comment on above: Result Comment: GFR [...] BMP, CBC, ANEU, TROPHS, ADIFF #### [place] [address] [place], [place] [address] BD BONE DENSITY DEXA AXIAL S Ignacio [...] 03/12/2024 12:06:57 PM Ordering Provider: EMILIANO Mercado [facility] CMPon 03-12-2024 Albumin Level 4.0 G/dL Normal 3.4-4.8 [facility] Comment on above: Performed By: #### M DW, MG, GFR, BMP, CBC, ANEU, TROPHS, ADIFF #### [address] [address] Albumin/Globulin [Mass ratio] 1.5 {ratio} Normal 1.1-2.5 [facility] Comment on above: Performed By: #### M DW, MG, GFR, BMP, CBC, ANEU, TROPHS, ADIFF #### [address] [address] ALP [Catalytic activity/Vol] 133 U/L Normal 40-135 [facility] Comment on above: Performed By: #### M DW, MG, GFR, BMP, CBC, ANEU, TROPHS, ADIFF #### [address] [address] ALT [Catalytic activity/Vol] 14 U/L Normal 14-59 [facility] Comment on above: Performed By: #### M DW, MG, GFR, BMP, CBC, ANEU, TROPHS, ADIFF #### [address] [address] AST [Catalytic activity/Vol] 11 U/L Normal 10-40 [facility] Comment on above: Performed By: #### M DW, MG, GFR, BMP, CBC, ANEU, TROPHS, ADIFF #### [address] [address] Bili Total 0.4 mg/dL Normal 0.2-1.0 [facility] Comment on above: Result Comment: Use of this assay is not recommended for patients undergoing treatment with eltrombopag due to the potential for falsely elevated results. Performed By: #### M DW, MG, GFR, BMP, CBC, ANEU, TROPHS, ADIFF #### [address] [address] BUN/Creatinine Ratio 16 ratio Normal 7-27 [facility] Comment on above: Performed By: #### M DW, MG, GFR, BMP, CBC, ANEU, TROPHS, ADIFF #### [address] [address] Calcium [Mass/Vol] 10.4 mg/dL High 8.4-10.2 [facility] Comment on above: Performed By: #### M DW, MG, GFR, BMP, CBC, ANEU, TROPHS, ADIFF #### [place] [address] Chloride [Moles/Vol] 94 mmol/L Low 98-107 [facility] Comment on above: Performed By: #### M DW, MG, GFR, BMP, CBC, ANEU, TROPHS, ADIFF #### [place] [address] CO2 [Moles/Vol] 31 mmol/L Normal 23-31 [facility] Comment on above: Performed By: #### M DW, MG, GFR, BMP, CBC, ANEU, TROPHS, ADIFF #### [place] [address] Creatinine [Mass/Vol] 0.89 mg/dL Normal 0.55-1.02 [facility] Comment on above: Result Comment: Test ing performed on [employer] Dimension EXL analyzer using a modified kinetic Josse technique. Performed By: #### M DW, MG, GFR, BMP, CBC, ANEU, TROPHS, ADIFF #### [place] [address] Electrolyte Balance 7.0 mEq/L Normal 4.0-15.0 [facility] Comment on above: Performed By: #### M DW, MG, GFR, BMP, CBC, ANEU, TROPHS, ADIFF #### [place] [address] Globulin 2.6 G/dL Normal [facility] Comment on above: Performed By: #### M DW, MG, GFR, BMP, CBC, ANEU, TROPHS, ADIFF #### [address] [address] Glucose [Mass/Vol] 92 mg/dL Normal 83-110 [facility] Comment on above: Performed By: #### M DW, MG, GFR, BMP, CBC, ANEU, TROPHS, ADIFF #### [address] [address] Potassium [Moles/Vol] 4.4 mmol/L Normal 3.5-5.1 [facility] Comment on above: Performed By: #### M DW, MG, GFR, BMP, CBC, ANEU, TROPHS, ADIFF #### [address] [address] Sodium [Moles/Vol] 132 mmol/L Low 136-145 [facility] Comment on above: Performed By: #### M DW, MG, GFR, BMP, CBC, ANEU, TROPHS, ADIFF #### [address] [address] Total Protein 6.6 G/dL Normal 6.4-8.2 [facility] Comment on above: Performed By: #### M DW, MG, GFR, BMP, CBC, ANEU, TROPHS, ADIFF #### [address] [address] Urea nitrogen [Mass/Vol] 14 mg/dL Normal 7-18 [facility] Comment on above: Performed By: #### M DW, MG, GFR, BMP, CBC, ANEU, TROPHS, ADIFF #### [address] [address] LABORATORYOrdered By: Jermaine Sellers on 03-12-2024 Albumin DL <= 20 mg/L (U) [Mass/Vol] 313[address] mcg/dL Invalid Interpretation Code AO ADM SS [...] MALBRon 03-12-2024 U Creatinine <13.0 Low 28.0-117.0 [facility] Comment on above: Performed By: #### M DW, MG, GFR, BMP, CBC, ANEU, TROPHS, ADIFF #### [facility] [address] [place], [place] [address] U Microalb [address] mcg/dL Normal [facility] Comment on above: Performed By: #### M DW, MG, GFR, BMP, CBC, ANEU, TROPHS, ADIFF #### [place] [address] [place], [place] [address] U Ratio Alb/Cre Unable to calc Normal 0-[address] [facility] Comment on above: Performed By: #### M DW, MG, GFR, BMP, CBC, ANEU, TROPHS, ADIFF #### [place] [id number] [place], [place] [address] LABORATORYOrdered By: SYSTEM SYSTEM on 07-12-2022 Albumin [...] Albumin DL <= 20 mg/L (U) [Mass/Vol] [address] mcg/dL Invalid Interpretation Code AO ADM SS [...] Non-Invasive 80 mm[Hg] VICTOR MANUEL PETERSON MD [facility] 02-19-2025 12:03-0500 Heart rate 68 /min VICTOR MANUEL PETERSON MD [facility] 02-19-2025 12:03-0500 Systolic Blood Pressure Non-Invasive 156 mm[Hg] VICTOR MANUEL PETERSON MD [address] [place] [address] 02-19-2025 10:47-0500 Diastolic Blood Pressure Non-Invasive 82 mm[Hg] VICTOR MANUEL PETERSON MD [address] [place] [address] 02-19-2025 10:47-0500 Heart rate 67 /min VICTOR MANUEL PETERSON MD [address] [place] [address] 02-19-2025 10:47-0500 Respiratory rate 18 /min VICTOR MANUEL PETERSON MD [address] [place] [address] 02-19-2025 10:47-0500 Systolic Blood Pressure Non-Invasive 159 mm[Hg] VICTOR MANUEL PETERSON MD [address] [place] [address] 02-19-2025 10:32-0500 Diastolic Blood Pressure Non-Invasive 89 mm[Hg] VICTOR MANUEL PETERSON MD [address] [place] [address] 02-19-2025 10:32-0500 Heart rate 67 /min VICTOR MANUEL PETERSON MD [address] [place] [address] 02-19-2025 10:32-0500 Respiratory rate 18 /min VICTOR MANUEL PETERSON MD [address] [place] [address] 02-19-2025 10:32-0500 Systolic Blood Pressure Non-Invasive 165 mm[Hg] VICTOR MANUEL PETERSON MD [address] [place] [address] 02-19-2025 10:17-0500 Respiratory rate 18 /min VICTOR MANUEL PETERSON MD [address] [place] [address] 02-19-2025 06:30-0500 Body height 157.5 cm VICTOR MANUEL PETERSON MD [address] [place] [address] 02-19-2025 06:30-0500 Body temperature 97.88 [degF] VICTOR MANUEL PETERSON MD [address] [place] [address] 02-19-2025 06:30-0500 Body weight 76.2 kg VICTOR MANUEL PETERSON MD [address] [place] [address] 02-11-2025 13:28-0500 Blood Pressure Cuff Size DONATO NAVARRETE DO [facility] 02-11-2025 13:28-0500 Blood Pressure Location DONATO NAVARRETE DO [facility] 02-11-2025 13:28-0500 Blood Pressure Method DONATO NAVARRETE DO [facility] 02-11-2025 13:28-0500 Diastolic Blood Pressure Non-Invasive 73 mm[Hg] DONATO NAVARRETE DO [facility] 02-11-2025 13:28-0500 Systolic Blood Pressure Non-Invasive 162 mm[Hg] DONATO NAVARRETE DO [facility] 02-11-2025 13:24-0500 Blood Pressure Cuff Size DONATO NAVARRETE DO [facility] 02-11-2025 13:24-0500 Blood Pressure Location DONATO NAVARRETE DO [facility] 02-11-2025 13:24-0500 Blood Pressure Method DONATO NAVARRETE DO [facility] 02-11-2025 13:24-0500 Body temperature 97.34 [degF] DONATO NAVARRETE DO [facility] 02-11-2025 13:24-0500 Diastolic Blood Pressure Non-Invasive 95 mm[Hg] DONATO NAVARRETE DO [facility] 02-11-2025 13:24-0500 Heart rate 77 /min DONATO NAVARRETE DO [facility] 02-11-2025 13:24-0500 Reason For Taking VItal Signs DONATO NAVARRETE DO [facility] 02-11-2025 13:24-0500 Respiratory rate 18 /min DONATO NAVARRETE DO [facility] 02-11-2025 13:24-0500 Systolic Blood Pressure Non-Invasive 186 mm[Hg] DONATO NAVARRETE DO [facility] 08-09-2024 05:30-0400 Heart rate 52 /min HARRY BAILON MD [address] [place] [address] 08-09-2024 05:30-0400 Respiratory rate 16 /min HARRY BAILON MD [address] [place] [address] 08-09-2024 03:30-0400 Blood Pressure Location HARRY BAILON MD [address] [place] [address] 08-09-2024 03:30-0400 Blood Pressure Method HARRY BAILON MD [address] [place] [address] 08-09-2024 03:30-0400 Body temperature 98.24 [degF] HARRY BAILON MD [address] [place] [address] 08-09-2024 03:30-0400 Diastolic Blood Pressure Non-Invasive 46 mm[Hg] HARRY BAILON MD [address] [place] [address] 08-09-2024 03:30-0400 Heart rate 52 /min HARRY BAILON MD [address] [place] [address] 08-09-2024 03:30-0400 Respiratory rate 16 /min HARRY BAILON MD [address] [place] [address] 08-09-2024 03:30-0400 Systolic Blood Pressure Non-Invasive 94 mm[Hg] HARRY BAILON MD [address] [place] [address] 08-09-2024 02:58-0400 Heart rate 51 /min HARRY BAILON MD [address] [place] [address] 08-08-2024 20:58-0400 Body temperature 97.7 [degF] HARRY BAILON MD [address] [place] [address] 08-08-2024 20:58-0400 Diastolic Blood Pressure Non-Invasive 74 mm[Hg] HARRY BAILON MD [address] [place] [address] 08-08-2024 20:58-0400 Respiratory rate 18 /min HARRY BAILON MD [address] [place] [address] 08-08-2024 20:58-0400 Systolic Blood Pressure Non-Invasive 121 mm[Hg] HARRY BAILON MD [address] [place] [address] 08-08-2024 15:10-0400 Diastolic Blood Pressure Non-Invasive 64 mm[Hg] HARRY BAILON MD [address] [place] [address] 08-08-2024 15:10-0400 Systolic Blood Pressure Non-Invasive 121 mm[Hg] HARRY BAILON MD [address] [place] [address] 08-08-2024 14:30-0400 Diastolic blood pressure 4 mm[Hg] HARRY BAILON MD [address] [place] [address] 08-08-2024 14:30-0400 Systolic blood pressure 117 mm[Hg] HARRY BAILON MD [address] [place] [address] 08-08-2024 14:25-0400 Diastolic blood pressure 47 mm[Hg] HARRY BAILON MD [address] [place] [address] 08-08-2024 14:25-0400 Systolic blood pressure 119 mm[Hg] HARRY BAILON MD [address] [place] [address] 08-08-2024 14:20-0400 Diastolic blood pressure 50 mm[Hg] HARRY BAILON MD [address] [place] [address] 08-08-2024 14:20-0400 Systolic blood pressure 106 mm[Hg] HARRY BAILON MD [address] [place] [address] 08-08-2024 13:55-0400 Respiratory Rate - Anes 12 br/min HARRY BAILON MD [address] [place] [address] 08-08-2024 13:54-0400 Respiratory Rate - Anes 12 br/min HARRY BAILON MD [address] [place] [address] 08-08-2024 13:53-0400 Respiratory Rate - Anes 12 br/min HARRY BAILON MD [address] [place] [address] 08-08-2024 13:40-0400 Body temperature 97.97 [degF] HARRY BAILON MD [address] [place] [address] 08-08-2024 13:35-0400 Body temperature 97.95 [degF] HARRY BAILON MD [address] [place] [address] 08-08-2024 13:30-0400 Body temperature 97.97 [degF] HARRY BAILON MD [address] [place] [address] 08-08-2024 07:53-0400 Blood Pressure Location HARRY BAILON MD [address] [place] [address] 08-08-2024 07:53-0400 Blood Pressure Method HARRY BAILON MD [address] [place] [address] 08-08-2024 07:53-0400 Body height 157.5 cm HARRY BAILON MD [address] [place] [address] 08-08-2024 07:53-0400 Body temperature 97.34 [degF] HARRY BAILON MD [address] [place] [address] 08-08-2024 07:53-0400 Body weight 65.9 kg HARRY BAILON MD [address] [place] [address] 08-08-2024 07:53-0400 Heart rate 92 /min HARRY BAILON MD [address] [place] [address] 07-27-2024 12:34-0400 Blood Pressure Cuff Size HARRY BAILON MD [address] [place] [address] 07-27-2024 12:34-0400 Blood Pressure Location HARRY BAILON MD [address] [place] [address] 07-27-2024 12:34-0400 Blood Pressure Method HARRY BAILON MD [address] [place] [address] 07-27-2024 12:34-0400 Body height 158 cm HARRY BAILON MD [address] [place] [address] 07-27-2024 12:34-0400 Body temperature 97.34 [degF] HARRY BAILON MD [address] [place] [address] 07-27-2024 12:34-0400 Body weight 65.6 kg HARRY BAILON MD [address] [place] [address] 07-27-2024 12:34-0400 Body weight 26.28 kg/m2 HARRY BAILON MD [address] [place] [address] 07-27-2024 12:34-0400 Diastolic Blood Pressure Non-Invasive 73 mm[Hg] HARRY BAILON MD [address] [place] [address] 07-27-2024 12:34-0400 Heart rate 106 /min HARRY BAILON MD [address] [place] [address] 07-27-2024 12:34-0400 Systolic Blood Pressure Non-Invasive 152 mm[Hg] HARRY BAILON MD [address] [place] [address] 07-01-2024 15:39-0400 Heart rate 58 /min DR MONIKA AGUSTIN MD [address] [place] [address] 07-01-2024 15:39-0400 Reason For Taking VItal Signs DR MONIKA AGUSTIN MD [address] [place] [address] 07-01-2024 15:07-0400 Heart rate 59 /min DR MONIKA AGUSTIN MD [address] [place] [address] 07-01-2024 15:07-04[address] Blood Pressure Cuff Size DR MONIKA AGUSTIN MD [address] [place] [address] 07-01-2024 15:07-[address] MONIKA AGUSTIN MD [address] [place] [address] 07-01-2024 15:07-[address] MONIKA Sanchez MD [address] [place] [address] 07-01-2024 15:07-0400 Diastolic Blood Pressure Non-Invasive 63 mm[Hg] DR MONIKA AGUSTIN MD [address] [place] [address] 07-01-2024 15:07-0400 Mean blood pressure 103 mm[Hg] DR MONIKA AGUSTIN MD [address] [place] [address] 07-01-2024 15:07-0400 Reason For Taking VItal Signs DR MONIKA AGUSTIN MD [address] [place] [address] 07-01-2024 15:07-0400 Respiratory rate 18 /min DR MONIKA AGUSTIN MD [address] [place] [address] 07-01-2024 15:07-0400 Systolic Blood Pressure Non-Invasive 173 mm[Hg] DR MONIKA AGUSTIN MD [address] [place] [address] 07-01-2024 11:07-0400 Blood Pressure Cuff Size DR MONIKA AGUSTIN MD [address] [place] [address] 07-01-2024 11:07-[address] MONIKA AGUSTIN MD [address] [place] [address] 07-01-2024 11:07-[address] MONIKA Sanchez MD [address] [place] [address] 07-01-2024 11:07-0400 Body temperature 97.88 [degF] DR MONIKA AGUSTIN MD [address] [place] [address] 07-01-2024 11:07-0400 Diastolic Blood Pressure Non-Invasive 62 mm[Hg] DR MONIKA AGUSTIN MD [address] [place] [address] 07-01-2024 11:07-0400 Heart rate 60 /min DR MONIKA AGUSTIN MD [address] [place] [address] 07-01-2024 11:07-0400 Reason For Taking VItal Signs DR MONIKA AGUSTIN MD [address] [place] [address] 07-01-2024 11:07-0400 Respiratory rate 18 /min DR MONIKA AGUSTIN MD [address] [place] [address] 07-01-2024 11:07-0400 Systolic Blood Pressure Non-Invasive 150 mm[Hg] DR MONIKA AGUSTIN MD [address] [place] [address] 07-01-2024 07:03-0400 Diastolic Blood Pressure Non-Invasive 60 mm[Hg] DR MONIKA AGUSTIN MD [address] [place] [address] 07-01-2024 07:03-0400 Systolic Blood Pressure Non-Invasive 170 mm[Hg] DR MONIKA AGUSTIN MD [address] [place] [address] 07-01-2024 07:03-0400 Blood Pressure Cuff Size DR MONIKA AGUSTIN MD [address] [place] [address] 07-01-2024 07:03-[address] MONIKA AGUSTIN MD [address] [place] [address] 07-01-2024 07:03-[address] MONIKA Sanchez MD [address] [place] [address] 07-01-2024 07:03-0400 Heart rate 65 /min DR MONIKA AGUSTIN MD [address] [place] [address] 07-01-2024 07:03-0400 Respiratory rate 18 /min DR MONIKA AGUSTIN MD [address] [place] [address] 07-01-2024 06:43-0400 Heart rate 60 /min DR MONIKA AGUSTIN MD [address] [place] [address] 07-01-2024 03:33-0400 Mean blood pressure 109 mm[Hg] DR MONIKA AGUSTIN MD [address] [place] [address] 07-01-2024 00:15-0400 Mean blood pressure 103 mm[Hg] DR MONIKA AGUSTIN MD [address] [place] [address] 07-01-2024 00:12-0400 Body temperature 97.7 [degF] DR MONIKA AGUSTIN MD [address] [place] [address] 06-30-2024 20:06-0400 Body temperature 98.06 [degF] DR MONIKA AGUSTIN MD [address] [place] [address] 06-30-2024 19:26-0400 Heart rate 54 /min DR MONIKA AGUSTIN MD [address] [place] [address] 06-30-2024 18:56-0400 Heart rate 55 /min DR MONIKA AGUSTIN MD [address] [place] [address] 06-30-2024 16:00-0400 Heart rate 59 /min DR MONIKA AGUSTIN MD [address] [place] [address] 06-30-2024 11:40-0400 Heart rate 56 /min DR MONIKA AGUSTIN MD [address] [place] [address] 06-29-2024 10:12-0400 Body temperature 97.34 [degF] DR MONIKA AGUSTIN MD [address] [place] [address] 06-29-2024 10:10-0400 Respiratory Rate - Anes 21 br/min DR MONIKA AGUSTIN MD [address] [place] [address] 06-29-2024 10:05-0400 Respiratory Rate - Anes 17 br/min DR MONIKA AGUSTIN MD [address] [place] [address] 06-29-2024 10:00-0400 Respiratory Rate - Anes 22 br/min DR MONIKA AGUSTIN MD [address] [place] [address] 06-28-2024 05:22-0400 Body height [address] MONIKA AGUSTIN MD [address] [place] [address] 06-28-2024 05:22-0400 Body weight 63.[address] MONIKA AGUSTIN MD [address] [place] [address] 06-28-2024 05:22-0400 Body weight 22.91 kg/m2 DR MONIKA AGUSTIN MD [address] [place] [address] 06-28-2024 05:06-0400 Body weight 63.[address] MONIKA AGUSTIN MD [address] [place] [address] 06-19-2024 09:59-0400 Diastolic Blood Pressure Non-Invasive 74 mm[Hg] ANASTASIYA RANDEE [employer]ODUCTION WORKER[employer] [address] [place] [address] 06-19-2024 09:59-0400 Heart rate 64 /min ANASTASIYA RANDEE [employer]ER PRODUCTION WORKER-[employer]ATIONS TAILOR [address] [place] [address] 06-19-2024 09:59-0400 Respiratory rate 16 /min ANASTASIYA RANDEE [employer]ER PRODUCTION WORKER-[employer]ATIONS TAILOR [address] [place] [address] 06-19-2024 09:59-0400 Systolic Blood Pressure Non-Invasive 146 mm[Hg] ANASTASIYA RANDEE [employer]ER PRODUCTION WORKER-[employer]ATIONS TA[employer]OR [address] [place] [address] 06-19-2024 09:50-0400 Diastolic Blood Pressure Non-Invasive 66 mm[Hg] ANASTASIYA RANDEE [employer]ER PRODUCTION WORKER-[employer]ATIONS TA[employer]OR [address] [place] [address] 06-19-2024 09:50-0400 Heart rate 58 /min ANASTASIYA RANDEE [employer]ER PRODUCTION WORKER-[employer]ATIONS TA[employer]OR [address] [place] [address] 06-19-2024 09:50-0400 Respiratory rate 16 /min ANASTASIYA RANDEE LE[employer]ER PRODUCTION WORKER-[employer]ATIONS TA[employer]OR [address] [place] [address] 06-19-2024 09:50-0400 Systolic Blood Pressure Non-Invasive 159 mm[Hg] ANASTASIYA RANDEE [employer] PRODUCTION WORKER-[employer] TA[employer]OR [address] [place] [address] 06-19-2024 09:45-0400 Body temperature 97.16 [degF] ANASTASIYA RANDEE [employer]ER PRODUCTION WORKER-[employer]ATIONS TA[employer]OR [address] [place] [address] 06-19-2024 09:45-0400 Diastolic Blood Pressure Non-Invasive 74 mm[Hg] ANASTASIYA RANDEE [employer] PRODUCTION WORKER[employer] TA[employer] [address] [place] [address] 06-19-2024 09:45-0400 Heart rate 59 /min ANASTASIYA RANDEE [employer]ER PRODUCTION WORKER-[employer]ATIONS TA[employer]OR [address] [place] [address] 06-19-2024 09:45-0400 Heart rate 80 /min ANASTASIYA RANDEE LE[employer]ER PRODUCTION WORKER-[employer]ATIONS TA[employer]OR [address] [place] [address] 06-19-2024 09:45-0400 Respiratory rate 16 /min ANASTASIYA RANDEE LE[employer]ER PRODUCTION WORKER-[employer]ATIONS TA[employer]OR [address] [place] [address] 06-19-2024 09:45-0400 Respiratory Rate - Anes 14 br/min ANASTASIYA RANDEE [employer]ER PRODUCTION WORKER[employer] TA[employer]OR [address] [place] [address] 06-19-2024 09:45-0400 Systolic Blood Pressure Non-Invasive 159 mm[Hg] ANASTASIYA RANDEE [employer]ER PRODUCTION WORKER[employer] TA[employer]OR [address] [place] [address] 06-19-2024 09:40-0400 Respiratory Rate - Anes 24 br/min ANASTASIYA RANDEE [employer]ER PRODUCTION WORKER-[employer] TA[employer]OR [address] [place] [address] 06-19-2024 09:35-0400 Respiratory Rate - Anes 14 br/min ANASTASIYA RANDEE [employer]ER PRODUCTION WORKER-[employer] TA[employer]OR [address] [place] [address] 06-19-2024 06:34-0400 Body height 160 cm ANASTASIYA RANDEE LE[employer]ER PRODUCTION WORKER-[employer] TA[employer]OR [address] [place] [address] 06-19-2024 06:34-0400 Body temperature 97.52 [degF] ANASTASIYA RANDEE [employer] PRODUCTION WORKER[employer] TA[employer]OR [address] [place] [address] 06-19-2024 06:34-0400 Body weight 61.3 kg ANASTASIYA RANDEE LE[employer]ER PRODUCTION WORKER-[employer]ATIONS TA[employer]OR [address] [place] [address] 06-19-2024 06:34-0400 Heart rate 91 /min ANASTASIYA RANDEE [employer]ER PRODUCTION WORKER[employer] TA[employer]OR [address] [place] [address] 05-29-2024 13:50-0500 Body temperature 98.06 [degF] DANIELLA KAPPER [employer]ER PRODUCTION WORKER[employer]ATIONS TA[employer]OR [facility] 05-29-2024 13:50-0500 Diastolic Blood Pressure Non-Invasive 79 mm[Hg] DANIELLA KAPPER [employer] PRODUCTION WORKER[employer] TA[employer]OR [facility] 05-29-2024 13:50-0500 Heart rate 88 /min DANIELLA KAPPER LE[employer]ER PRODUCTION WORKER-[employer]ATIONS TA[employer]OR [facility] 05-29-2024 13:50-0500 Reason For Taking VItal Signs DANIELLA KAPPER LE[employer]ER PRODUCTION WORKER-[employer]ATIONS TA[employer]OR [facility] 05-29-2024 13:50-0500 Respiratory rate 18 /min DANIELLA KAPPER LE[employer]ER PRODUCTION WORKER-[employer]ATIONS TA[employer]OR [facility] 05-29-2024 13:50-0500 Systolic Blood Pressure Non-Invasive 106 mm[Hg] DANIELLA KAPPER LE[employer]ER PRODUCTION WORKER[employer]ATIONS TA[employer]OR [facility] 05-29-2024 11:35-0500 Body temperature 98.06 [degF] DANIELLA KAPPER [employer]ER PRODUCTION WORKER-[employer]ATIONS TA[employer]OR [facility] 05-29-2024 11:35-0500 Diastolic Blood Pressure Non-Invasive 88 mm[Hg] DANIELLA KAPPER [employer]ER PRODUCTION WORKER[employer] TA[employer]OR [facility] 05-29-2024 11:35-0500 Heart rate 81 /min DANIELLA KAPPER LEATHER PRODUCTION WORKER-[employer]ATIONS TA[employer]OR [facility] 05-29-2024 11:35-0500 Reason For Taking VItal Signs DANIELLA KAPPER LEATHER PRODUCTION WORKER-[employer]ATIONS TA[employer]OR [facility] 05-29-2024 11:35-0500 Respiratory rate 18 /min DANIELLA KAPPER LE[employer]ER PRODUCTION WORKER-[employer]ATIONS TA[employer] [facility] 05-29-2024 11:35-0500 Systolic Blood Pressure Non-Invasive 128 mm[Hg] DANIELLA KAPPER [employer]ER PRODUCTION WORKER[employer] TA[employer] [facility] 05-29-2024 09:01-0500 Heart rate 80 /min DANIELLA KAPPER LE[employer]ER PRODUCTION WORKER-[employer] TA[employer]OR [facility] 05-29-2024 08:58-0500 Blood Pressure Location DANIELLA KAPPER [employer]ODUCTION WORKER-[employer] TA[employer] [facility] 05-29-2024 08:58-0500 Blood Pressure Method DANIELLA HERNANDEZ LEATHER PRODUCTION WORKER-C [employer] W[employer]ER OPERATOR [facility] 05-29-2024 08:58-0500 Body temperature 98.06 [degF] DANIELLA HERNANEDZ LEATHER PRODUCTION WORKER-[employer]ATIONS TA[employer]OR [facility] 05-29-2024 08:58-0500 Diastolic Blood Pressure Non-Invasive 86 mm[Hg] DANIELLA HERNANDEZ LE[employer]ER PRODUCTION WORKER-[employer]ATIONS TA[employer]OR [facility] 05-29-2024 08:58-0500 Heart rate 78 /min DANIELLA HERNANDEZ LEATHER PRODUCTION WORKER-[employer]ATIONS TAILOR [facility] 05-29-2024 08:58-0500 Reason For Taking VItal Signs DANIELLA HERNANDEZ LEATHER PRODUCTION WORKER-[employer]ATIONS TA[employer]OR [facility] 05-29-2024 08:58-0500 Systolic Blood Pressure Non-Invasive 125 mm[Hg] DANIELLA MCDONOUGHER LEATHER PRODUCTION WORKER-[employer]ATIONS TA[employer]OR [facility] 05-29-2024 07:55-0500 Respiratory rate 18 /min DANIELLA MCDONOUGHER LEATHER PRODUCTION WORKER-[employer]ATIONS TAILOR [facility] 05-29-2024 07:35-0500 Heart rate 77 /min DANIELLA MCDONOUGHER LEATHER PRODUCTION WORKER-[employer]ATIONS TAILOR [facility] 05-28-2024 18:56-0500 Heart rate 77 /min DANIELLA CEASARER LEATHER PRODUCTION WORKER-[employer]ATIONS TA[employer]OR [facility] 05-28-2024 17:38-0500 Heart rate 80 /min DANIELLA KAPPER LEATHER PRODUCTION WORKER-[employer]ATIONS TA[employer]OR [facility] 05-28-2024 17:36-0500 Blood Pressure Location DANIELLA CEASARER LEATHER PRODUCTION WORKER-[employer]ATIONS TAILOR [facility] 05-28-2024 17:36-0500 Blood Pressure Method DANIELLA HERNANDEZ APRN-C [employer] W[employer]ER OPERATOR [facility] 05-28-2024 17:36-0500 Heart rate 80 /min DANIELLA HERNANDEZ LE[employer]ER PRODUCTION WORKER-[employer]ATIONS TA[employer]OR [facility] 05-28-2024 08:45-0500 Heart rate 81 /min DANIELLA HERNANDEZ LEATHER PRODUCTION WORKER-[employer]ATIONS TAILOR [facility] 05-23-2024 14:01-0500 Body height 160 cm DANIELLA HERNANDEZ LEATHER PRODUCTION WORKER-[employer]ATIONS TAILOR [facility] 05-23-2024 14:01-0500 Body weight 63.8 kg DANIELLA HERNANDEZ LEATHER PRODUCTION WORKER-[employer]ATIONS TAILOR [facility] 05-23-2024 14:01-0500 Body weight 24.92 kg/m2 DANIELLA HERNANDEZ LEATHER PRODUCTION WORKER-[employer]ATIONS TAILOR [facility] 05-23-2024 10:31-0500 Body temperature 98.06 [degF] JULY EZEKIEL LEATHER PRODUCTION WORKER-[employer]ATIONS TAILOR [facility] 05-23-2024 10:31-0500 Diastolic Blood Pressure Non-Invasive 65 mm[Hg] JULY EZEKIEL [employer]ATHER PRODUCTION WORKER-[employer]ATIONS TAILOR [facility] 05-23-2024 10:31-0500 Heart rate 64 /min JULY EZEKIEL LE[employer]ER PRODUCTION WORKER-[employer]ATIONS TAILOR [facility] 05-23-2024 10:31-0500 Reason For Taking VItal Signs JULY EZEKIEL LEATHER PRODUCTION WORKER-[employer]ATIONS TA[employer]OR [facility] 05-23-2024 10:31-0500 Respiratory rate 18 /min JULY EZEKIEL LEATHER PRODUCTION WORKER-[employer]ATIONS TA[employer]OR [facility] 05-23-2024 10:31-0500 Systolic Blood Pressure Non-Invasive 131 mm[Hg] JULY HESPERIA LEATHER PRODUCTION WORKER-[employer]ATIONS TAILOR [facility] 05-23-2024 08:30-0500 Heart rate 75 /min JULY HESPERIA LEATHER PRODUCTION WORKER-[employer]ATIONS TAILOR [facility] 05-23-2024 06:36-0500 Body temperature 97.88 [degF] JULY HESPERIA LEATHER PRODUCTION WORKER-AL[employer]ATIONS TAILOR [facility] 05-23-2024 06:36-0500 Diastolic Blood Pressure Non-Invasive 82 mm[Hg] JULY HESPERIA LEATHER PRODUCTION WORKER-[employer]ATIONS TAILOR [facility] 05-23-2024 06:36-0500 Heart rate 72 /min JULY HESPERIA LEATHER PRODUCTION WORKER-AL[employer]ATIONS TAILOR [facility] 05-23-2024 06:36-0500 Reason For Taking VItal Signs JULY HESPERIA LEATHER PRODUCTION WORKER-ALTERATIONS TAILOR [facility] 05-23-2024 06:36-0500 Respiratory rate 18 /min JULY HESPERIA LEATHER PRODUCTION WORKER-AL[employer]ATIONS TAILOR [facility] 05-23-2024 06:36-0500 Systolic Blood Pressure Non-Invasive 135 mm[Hg] JULY HESPERIA LEATHER PRODUCTION WORKER-AL[employer]ATIONS TAILOR [facility] 05-23-2024 02:32-0500 Body temperature 98.06 [degF] JULY HESPERIA LEATHER PRODUCTION WORKER-ALTERATIONS TAILOR [facility] 05-23-2024 02:32-0500 Diastolic Blood Pressure Non-Invasive 88 mm[Hg] JULY HESPERIA LEATHER PRODUCTION WORKER-ALTERATIONS TAILOR [facility] 05-23-2024 02:32-0500 Heart rate 64 /min JULY HESPERIA LEATHER PRODUCTION WORKER-ALTERATIONS TAILOR [facility] 05-23-2024 02:32-0500 Reason For Taking VItal Signs JULY HESPERIA LEATHER PRODUCTION WORKER-AL[employer]ATIONS TAILOR [facility] 05-23-2024 02:32-0500 Respiratory rate 18 /min JULY HESPERIA LEATHER PRODUCTION WORKER-ALTERATIONS TAILOR [facility] 05-23-2024 02:32-0500 Systolic Blood Pressure Non-Invasive 138 mm[Hg] JULY HESPERIA LEATHER PRODUCTION WORKER-AL[employer]ATIONS TAILOR [facility] 05-22-2024 23:28-0500 Heart rate 68 /min JULY HESPERIA LEATHER PRODUCTION WORKER-ALTERATIONS TAILOR [facility] 05-22-2024 19:50-0500 Heart rate 75 /min JULY HESPERIA LEATHER PRODUCTION WORKER-AL[employer]ATIONS TAILOR [facility] 05-22-2024 18:03-0500 Heart rate 67 /min JULY HESPERIA LEATHER PRODUCTION WORKER-ALTERATIONS TAILOR [facility] 05-22-2024 07:58-0500 Heart rate 84 /min JULY HESPERIA LEATHER PRODUCTION WORKER-AL[employer]ATIONS TAILOR [facility] 05-22-2024 07:45-0500 Blood Pressure Location JULY HESPERIA LEATHER PRODUCTION WORKER-ALTERATIONS TAILOR [facility] 05-22-2024 07:45-0500 Blood Pressure Method JULY HESPERIA LEATHER PRODUCTION WORKER-AL[employer]ATIONS TAILOR [facility] 05-22-2024 03:56-0500 Body temperature 98.78 [degF] JULY HESPERIA LE[employer]ER PRODUCTION WORKER-[employer]ATIONS TAILOR [facility] 05-22-2024 03:56-0500 Heart rate 79 /min JULY HESPERIA LE[employer]ER PRODUCTION WORKER-AL[employer]ATIONS TAILOR [facility] 05-21-2024 17:25-0500 Blood Pressure Location JULY EZEKIEL LEATHER PRODUCTION WORKER-ALTERATIONS TAILOR [facility] 05-21-2024 17:25-0500 Blood Pressure Method JULY EZEKIEL LE[employer]ER PRODUCTION WORKER-[employer]ATIONS TAILOR [facility] 05-21-2024 02:37-0500 Body temperature 97.7 [degF] JULY HESPERIA LEATHER PRODUCTION WORKER-[employer]ATIONS TAILOR [facility] 05-20-2024 22:36-0500 Body temperature 97.88 [degF] JULY HESPERIA LE[employer]ER PRODUCTION WORKER-[employer]ATIONS TAILOR [facility] 05-20-2024 14:00-0500 Heart rate 105 /min DANIELLA HERNANDEZ LEATHER PRODUCTION WORKER-[employer]ATIONS TAILOR [facility] 05-20-2024 01:45-0500 Body height 160 cm JULY EZEKIEL LEATHER PRODUCTION WORKER-ALTERATIONS TAILOR [facility] 05-20-2024 01:45-0500 Body weight 63.8 kg JULY HESPERIA LEATHER PRODUCTION WORKER-ALTERATIONS TAILOR [facility] 05-20-2024 01:45-0500 Body weight 24.92 kg/m2 JULY HESPERIA LEATHER PRODUCTION WORKER-ALTERATIONS TAILOR [facility] 05-20-2024 00:39-0500 Diastolic Blood Pressure Non-Invasive 110 mm[Hg] DANIELLA HERNANDEZ LE[employer]ER PRODUCTION WORKER-[employer]ATIONS TAILOR [facility] 05-20-2024 00:39-0500 Heart rate 110 /min DANIELLA HERNANDEZ LEATHER PRODUCTION WORKER-AL[employer]ATIONS TAILOR [facility] 05-20-2024 00:39-0500 Respiratory rate 30 /min DANIELLA HERNANDEZ LEATHER PRODUCTION WORKER-AL[employer]ATIONS TAILOR [facility] 05-20-2024 00:39-0500 Systolic Blood Pressure Non-Invasive 160 mm[Hg] DANIELLA MCDONOUGHER LEATHER PRODUCTION WORKER-[employer]ATIONS TAILOR [facility] 05-20-2024 00:30-0500 Heart rate 109 /min DANIELLA KAPPER LEATHER PRODUCTION WORKER-AL[employer]ATIONS TAILOR [facility] 05-20-2024 00:17-0500 Diastolic Blood Pressure Non-Invasive 138 mm[Hg] DANIELLA KAPPER LEATHER PRODUCTION WORKER-[employer]ATIONS TAILOR [facility] 05-20-2024 00:17-0500 Heart rate 71 /min DANIELLA KAPPER LEATHER PRODUCTION WORKER-[employer]ATIONS TAILOR [facility] 05-20-2024 00:17-0500 Respiratory rate 30 /min DANIELLA KAPPER LEATHER PRODUCTION WORKER-[employer]ATIONS TA[employer]OR [facility] 05-20-2024 00:17-0500 Systolic Blood Pressure Non-Invasive 183 mm[Hg] DANIELLA KAPPER LEATHER PRODUCTION WORKER-[employer]ATIONS TA[employer]OR [facility] 05-20-2024 00:14-0500 Respiratory rate 28 /min DANIELLA KAPPER LEATHER PRODUCTION WORKER-ALTERATIONS TAILOR [facility] 05-20-2024 00:02-0500 Diastolic Blood Pressure Non-Invasive 134 mm[Hg] DANIELLA KAPPER LEATHER PRODUCTION WORKER-[employer]ATIONS TAILOR [facility] 05-20-2024 00:02-0500 Systolic Blood Pressure Non-Invasive 198 mm[Hg] DANIELLA KAPPER LEATHER PRODUCTION WORKER-[employer]ATIONS TAILOR [facility] 05-19-2024 23:43-0500 Heart rate 68 /min DANIELLA KAPPER LEATHER PRODUCTION WORKER-[employer]ATIONS TAILOR [facility] 05-19-2024 23:40-0500 Heart rate 65 /min DANIELLA KAPPER LEATHER PRODUCTION WORKER-[employer]ATIONS TAILOR [facility] 05-19-2024 20:30-0500 Body temperature 97.52 [degF] DANIELLA KAPPER LE[employer]ER PRODUCTION WORKER-[employer]ATIONS TAILOR [facility] 05-19-2024 20:30-0500 Heart rate 59 /min DANIELLA KAPPER LE[employer]ER PRODUCTION WORKER-[employer]ATIONS TA[employer]OR [facility] 05-19-2024 20:30-0500 Reason For Taking VItal Signs DANIELLALatanya MCDONOUGHER LEATHER PRODUCTION WORKER-[employer]ATIONS TAILOR [facility] 05-19-2024 11:05-0500 Heart rate 61 /min DANIELLA KAPPER LEATHER PRODUCTION WORKER-[employer]ATIONS TAILOR [facility] 05-19-2024 10:32-0500 Heart rate 62 /min DANIELLA KAPPER LE[employer]ER PRODUCTION WORKER-[employer]ATIONS TAILOR [facility] 05-19-2024 08:31-0500 Body temperature 97.52 [degF] DANIELLA KAPPER LEATHER PRODUCTION WORKER-[employer]ATIONS TAILOR [facility] 05-19-2024 04:05-0500 Body temperature 98.06 [degF] DANIELLA KAPPER LEATHER PRODUCTION WORKER-[employer]ATIONS TA[employer]OR [facility] 05-18-2024 21:07-0500 Body height 160 cm DANIELLA KAPPER LEATHER PRODUCTION WORKER-AL[employer]ATIONS TAILOR [facility] 05-18-2024 21:07-0500 Body weight 63 kg DANIELLA KAPPER LEATHER PRODUCTION WORKER-[employer]ATIONS TAILOR [facility] 05-18-2024 21:07-0500 Body weight 24.61 kg/m2 DANIELLA KAPPER LEATHER PRODUCTION WORKER-[employer]ATIONS TAILOR [facility] 05-18-2024 17:29-0500 Heart rate 54 /min DR ABHIJEET AGUILAR MD [facility] 05-18-2024 15:41-0500 Diastolic Blood Pressure Non-Invasive 68 mm[Hg] DR ABHIJEET AGUILAR MD [address] [place] [address] 05-18-2024 15:41-0500 Mean blood pressure 85 mm[Hg] DR ABHIJEET AGUILAR MD [address] [place] [address] 05-18-2024 15:41-0500 Systolic Blood Pressure Non-Invasive 136 mm[Hg] DR ABHIJEET AGUILAR MD [address] [place] [address] 05-18-2024 15:41-0500 Heart rate 59 /min DR ABHIJEET AGUILAR MD [address] [place] [address] 05-18-2024 15:41-0500 Reason For Taking VItal Signs DR ABHIJEET AGUILAR MD [address] [place] [address] 05-18-2024 15:40-0500 Respiratory rate 18 /min DR ABHIJEET AGUILAR MD [address] [place] [address] 05-18-2024 11:45-0500 Body temperature 97.52 [degF] DR ABHIJEET AGUILAR MD [address] [place] [address] 05-18-2024 11:05-0500 Heart rate 55 /min DR ABHIJEET AGUILAR MD [address] [place] [address] 05-18-2024 11:05-0500 Blood Pressure Cuff Size DR ABHIJEET AGUILAR MD [address] [place] [address] 05-18-2024 11:05-[address] ABHIJEET AGUILAR MD [address] [place] [address] 05-18-2024 11:05-[address] ABHIJEET AGUILAR MD [address] [place] [address] 05-18-2024 11:05-0500 Diastolic Blood Pressure Non-Invasive 76 mm[Hg] DR ABHIJEET AGUILAR MD [address] [place] [address] 05-18-2024 11:05-0500 Respiratory rate 18 /min DR ABHIJEET AGUILAR MD [address] [place] [address] 05-18-2024 11:05-0500 Systolic Blood Pressure Non-Invasive 158 mm[Hg] DR ABHIJEET AGUILAR MD [address] [place] [address] 05-18-2024 10:50-0500 Diastolic Blood Pressure Non-Invasive 74 mm[Hg] DR ABHIJEET AGUILAR MD [address] [place] [address] 05-18-2024 10:50-0500 Systolic Blood Pressure Non-Invasive 144 mm[Hg] DR ABHIJEET AGUILAR MD [address] [place] [address] 05-18-2024 10:45-0500 Blood Pressure Cuff Size DR ABHIJEET AGUILAR MD [address] [place] [address] 05-18-2024 10:45-[address] ABHIJEET AGUILAR MD [address] [place] [address] 05-18-2024 10:45-0500 Blood Pressure Method DR ABHIJEET AGUILAR MD [address] [place] [address] 05-18-2024 10:45-0500 Reason For Taking VItal Signs DR ABHIJEET AGUILAR MD [address] [place] [address] 05-18-2024 10:45-0500 Respiratory rate 18 /min DR ABHIJEET AGUILAR MD [address] [place] [address] 05-18-2024 10:23-0500 Body temperature 97.16 [degF] DR ABHIJEET AGUILAR MD [address] [place] [address] 05-18-2024 10:20-0500 Respiratory Rate - Anes 29 br/min DR ABHIJEET AGUILAR MD [address] [place] [address] 05-18-2024 10:15-0500 Respiratory Rate - Anes 25 br/min DR ABHIJEET AGUILAR MD [address] [place] [address] 05-18-2024 10:10-0500 Respiratory Rate - Anes 0 br/min DR ABHIJEET AGUILAR MD [address] [place] [address] 05-18-2024 08:38-0500 Heart rate 86 /min DR ABHIJEET AGUILAR MD [address] [place] [address] 05-18-2024 08:29-0500 Blood Pressure Cuff Size DR ABHIJEET AGUILAR MD [address] [place] [address] 05-18-2024 08:29-[address] ABHIJEET AGUILRA MD [address] [place] [address] 05-18-2024 08:29-[address] ABHIJEET AGUILAR MD [address] [place] [address] 05-18-2024 08:29-0500 Body temperature 97.88 [degF] DR ABHIJEET AGUILAR MD [address] [place] [address] 05-18-2024 08:29-0500 Reason For Taking VItal Signs DR ABHIJEET AGUILAR MD [address] [place] [address] 05-18-2024 04:52-0500 Body temperature 97.52 [degF] DR ABHIJEET AGUILAR MD [address] [place] [address] 05-17-2024 23:02-0500 Mean blood pressure 84 mm[Hg] DR ABHIJEET AGUILAR MD [address] [place] [address] 05-17-2024 17:22-0500 Heart rate 102 /min DR ABHIJEET AGUILAR MD [address] [place] [address] 05-17-2024 11:19-0500 Body temperature 97.7 [degF] DR ABHIJEET AGUILAR MD [address] [place] [address] 05-17-2024 11:00-0500 Body temperature 97.52 [degF] DR ABHIJEET AGUILAR MD [address] [place] [address] 05-17-2024 09:16-0500 Heart rate 99 /min DR ABHIJEET AGUILAR MD [address] [place] [address] 05-16-2024 08:02-0500 Mean blood pressure 103 mm[Hg] DR ABHIJEET AGUILAR MD [address] [place] [address] 05-16-2024 07:39-0500 Heart rate 76 /min DR ABHIJEET AGUILAR MD [address] [place] [address] 05-16-2024 00:02-0500 Heart rate 69 /min DR ABHIJEET AGUILAR MD [address] [place] [address] 05-15-2024 16:30-0500 Heart rate 78 /min DR ABHIJEET AGUILAR MD [facility] 05-13-2024 16:44-0500 Body height [address] ABHIJEET AGUILAR MD [facility] 05-13-2024 16:44-0500 Body weight 65.[address] ABHIJEET AGUILAR MD [facility] 05-13-2024 16:44-0500 Body weight 25.74 kg/m2 DR ABHIJEET AGUILAR MD [facility] 05-13-2024 15:00-0500 Diastolic Blood Pressure Non-Invasive 69 mm[Hg] DR TERRIE SIMS DO [facility] 05-13-2024 15:00-0500 Heart rate 103 /min DR TERRIE SIMS DO [facility] 05-13-2024 15:00-0500 Mean blood pressure 88 mm[Hg] DR TERRIE SIMS DO [facility] 05-13-2024 15:00-0500 Respiratory rate 26 /min DR TERRIE SIMS DO [facility] 05-13-2024 15:00-0500 Systolic Blood Pressure Non-Invasive 135 mm[Hg] DR TERRIE SIMS DO [facility] 05-13-2024 14:00-0500 Diastolic Blood Pressure Non-Invasive 71 mm[Hg] DR TERRIE SIMS DO [facility] 05-13-2024 14:00-0500 Heart rate 90 /min DR TERRIE SIMS DO [facility] 05-13-2024 14:00-0500 Systolic Blood Pressure Non-Invasive 127 mm[Hg] DR TERRIE SIMS DO [facility] 05-13-2024 13:00-0500 Diastolic Blood Pressure Non-Invasive 112 mm[Hg] DR TERRIE SIMS DO [facility] 05-13-2024 13:00-0500 Heart rate 123 /min DR TERRIE SIMS DO [facility] 05-13-2024 13:00-0500 Respiratory rate 29 /min DR TERRIE SIMS DO [facility] 05-13-2024 13:00-0500 Systolic Blood Pressure Non-Invasive 173 mm[Hg] DR TERRIE SIMS DO [facility] 05-13-2024 12:40-0500 Reason For Taking VItal Signs DR TERRIE SIMS DO [facility] 05-13-2024 12:26-0500 Heart rate 137 /min DR TERRIE SIMS DO [facility] 05-13-2024 12:26-0500 Mean blood pressure 109 mm[Hg] DR TERRIE SIMS DO [facility] 05-13-2024 11:52-0500 Heart rate 131 /min DR TERRIE SIMS DO [facility] 05-13-2024 11:28-0500 Blood Pressure Cuff Size DR TERRIE SIMS DO [facility] 05-13-2024 11:28-[address] TERRIE SIMS DO [facility] 05-13-2024 11:28-[address] TERRIE SIMS DO [facility] 05-13-2024 11:28-0500 Body temperature 98.24 [degF] DR TERRIE SIMS DO [facility] 05-13-2024 11:28-0500 Body weight 64.[address] TERRIE SIMS DO [facility] 05-13-2024 11:28-0500 Heart rate 130 /min DR TERRIE SIMS DO [facility] 02-17-2021 17:50-0500 Body height 160 cm JODY GIRALDO MD [facility] 02-17-2021 17:50-0500 Body temperature 98.24 [degF] JODY GIRALDO MD [facility] 02-17-2021 17:50-0500 Body weight 63.6 kg JODY GIRALDO MD [facility] 02-17-2021 17:50-0500 Diastolic blood pressure 75 mm[Hg] JODY GIRALDO MD [facility] 02-17-2021 17:50-0500 Heart rate 78 /min JODY GIRALDO MD [facility] 02-17-2021 17:50-0500 Mean blood pressure 101 mm[Hg] JODY GIRALDO MD [facility] 02-17-2021 17:50-0500 Respiratory rate 16 /min JODY GIRALDO MD [facility] 02-17-2021 17:50-0500 Systolic blood pressure 154 mm[Hg] JODY GIRALDO MD [facility] Encounters Encounter Date Encounter Type Care Provider Facility Start: 02-19-2025 End: 02-19-2025 ambulatory VICTOR MANUEL PETERSON MD Facility:A Start: 02-19-2025 End: 02-19-2025 SAME DAY STAY VICTOR MANUEL PETERSON MD [facility] Start: 02-15-2025 End: 02-15-2025 ambulatory ASIM FISH [employer] WORK[employer] Facility:[facility] Start: 02-15-2025 End: 02-15-2025 Patient encounter procedure ASIM FISH [employer] WORK[employer] TA[employer] [facility] Start: 02-11-2025 End: 02-11-2025 ambulatory DONATO E NAVARRETE DO Facility:[facility] Start: 02-11-2025 End: 02-11-2025 SAME DAY STAY DONATO E NAVARRETE DO [facility] Start: 01-11-2025 End: 01-11-2025 ambulatory DONATO E NAVARRETE DO Facility:[facility] Start: 01-11-2025 End: 01-11-2025 Patient encounter procedure DONATO E NAVARRETE DO [facility] Start: 01-08-2025 End: 01-08-2025 ambulatory ASIM FISH [employer]ODUCTION WORKER[employer] TA[employer] Facility:[facility] Start: 01-08-2025 End: 01-08-2025 Patient encounter procedure ASIM FISH [employer]ODUCTION WORK[employer] TA[employer]OR [facility] Start: 01-01-2025 End: 01-01-2025 ambulatory ASIM FISH [employer]ODUCTION WORKER[employer] TAILOR Facility:[facility] Start: 01-01-2025 End: 01-01-2025 Patient encounter procedure ASIM DIEHL LEATHER [employer]ODUCTION WORKER[employer] TA[employer] [facility] Start: 09-12-2024 End: 09-16-2024 ambulatory DONATO NAVARRETE DO Facility:[facility] Start: 09-12-2024 End: 09-16-2024 Encounter for general adult medical examination without abnormal findings DONATO NAVARRETE DO Facility:[facility] Start: 09-12-2024 End: 09-16-2024 Outreach Lab DONATO NAVARRETE DO [facility] Start: 08-27-2024 End: 09-01-2024 Evaluation and management of inpatient HARRY BAILON MD Facility:A Start: 08-21-2024 End: 08-21-2024 ambulatory EMILIANO ELVIS DO Facility:[facility] Start: 08-21-2024 End: 08-21-2024 Patient encounter procedure ASIM DIEHL [employer] WORK[employer] [facility] Start: 08-08-2024 End: 08-09-2024 ambulatory EMILIANO ELVIS DO Facility:[facility] Start: 08-08-2024 End: 08-09-2024 Observation HARRY BAILON MD [facility] Start: 07-27-2024 End: 07-27-2024 Admission to establishment HARRY BAILON MD [facility] Start: 07-27-2024 End: 07-27-2024 ambulatory [facility] Facility:A Start: 07-27-2024 Encounter for other preprocedural examination HARRY BAILON MD [facility] Start: 07-19-2024 End: 07-19-2024 ambulatory [facility] Facility:[facility] Start: 07-05-2024 End: 07-05-2024 Emergency department patient visit [facility] Facility:[facility] Start: 06-28-2024 End: 07-01-2024 Evaluation and management of inpatient DR MONIKA AGUSTIN MD [facility] Start: 06-28-2024 End: 06-28-2024 Emergency department patient visit DR MONIKA AGUSTIN MD Facility:[facility] Start: 06-26-2024 End: 06-26-2024 [facility] Start: 06-19-2024 End: 06-19-2024 ambulatory [facility] Facility:A Start: 06-19-2024 End: 06-19-2024 SAME DAY STAY ANASTASIYA Tobias RANDEE LEATHER PRODUCTION WORKER[employer] TAILOR [facility] Start: 05-23-2024 End: 05-29-2024 Evaluation and management of inpatient DANIELLA HERNANDEZ [employer]ATH[employer]ODUCTION WORKER[employer] TA[employer]OR [facility] Start: 05-20-2024 End: 05-23-2024 Evaluation and management of inpatient RHINA FALCON [employer]ATHER [employer]ODUCTION WORKER[employer] TAILOR [facility] Start: 05-18-2024 End: 05-20-2024 Evaluation and management of inpatient DANIELLA HERNANDEZ [employer]ATH[employer] WORK[employer] TA[employer]OR [facility] Start: 05-13-2024 End: 05-18-2024 Evaluation and management of inpatient DR ABHIJEET AGUILAR MD [facility] Start: 05-13-2024 End: 05-13-2024 Emergency department patient visit DR TERRIE SIMS DO [facility] Start: 04-13-2024 End: 04-13-2024 [facility] Start: 04-13-2024 End: 04-13-2024 Patient encounter procedure EMILIANO LEAL DO [facility] Start: 03-12-2024 End: 03-12-2024 ambulatory EMILIANO LEAL DO Facility:[facility] Start: 03-12-2024 End: 03-12-2024 Patient encounter procedure EMILIANO LEAL DO [facility] Start: 11-14-2023 ambulatory KEILY Madi JOYCE JORGE DO Facility:[facility] Start: 08-09-2023 End: 08-09-[address] MAXIMINO LIM DO Facility:[facility] Start: 07-12-2022 End: 07-12-2022 Patient encounter procedure TANIA HERNANDEZ MD [facility] Start: 07-08-2022 End: 07-08-2022 Patient encounter procedure TANIA HERNANDEZ MD [facility] Start: 05-26-2022 End: 05-26-2022 Patient encounter procedure TANIA HERNANDEZ MD [facility] Start: 03-11-2022 End: 03-11-2022 Patient encounter procedure EMILIANO LEAL DO [facility] Start: 10-27-2021 End: 12-03-2021 Physical therapy management EMILIANO LEAL DO [facility] Start: 10-21-2021 End: 10-21-2021 Patient encounter procedure EMILIANO LEAL DO [facility] Start: 04-17-2021 End: 04-17-2021 Patient encounter procedure EMILIANO LEAL DO [facility] Start: 02-17-2021 End: 02-17-2021 Emergency department patient visit JODY GIRALDO MD [facility] Procedures Date Procedure Procedure Detail Performing Clinician Start: 08-30-2024 Cardiovascular stress testing ASIM DIEHL [employer] WORK[employer] TA[employer] Comment on above: * Final Report * [...] MD on 08/30/2024 10:32 AM Addendum by PRAISA MATTHEWS MD on August 30, 2024 18:09:01 EDT (Verified) I have personally reviewed the stress test report. I have reviewed the resting EKG as well as EKG during stress portion of the exam. I concur with the findings of the fellow as discussed above. 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 Start: 06-29-2024 Cardioversion HARRY Barraza MD Comment [...] Immunizations Immunization Date Immunization Notes Care Provider [facility] 01-16-2025 influenza, high dose seasonal, preservative-free; Translations: [Fluzone High-Dose PF Prefilled Syringe ] DONATO NAVARRETE DO [facility] 02-23-2024 influenza, high dose seasonal, preservative-free; Translations: [Fluad PF Prefilled Syringe ] EMILIANO LEAL DO [facility] 02-21-2023 influenza virus vacc ine, unspecified formulation DR TERRIE SIMS DO [facility] 02-12-2022 influenza virus vacc ine, unspecified formulation DR TERRIE SIMS DO [facility] 02-12-2021 influenza virus vacc ine, unspecified formulation DR TERRIE SIMS DO [facility] 02-12-2021 SARS-CoV-2 (COVID-19 ) mRNA-[address] TERRIE SIMS DO [facility] 08-19-[address] TERRIE SIMS DO [facility] 07-26-2020 SARS-CoV-2 (COVID-19 ) mRNA-[address] TERRIE SIMS DO [facility] 06-28-2020 SARS-CoV-2 (COVID-19 ) mRNA-[address] TERRIE SIMS DO [facility] 04-18-[address] TERRIE SIMS DO [facility] 02-03-2020 influenza virus vacc ine, unspecified formulation DR TERRIE SIMS DO [facility] 03-09-2019 influenza virus vacc ine, unspecified formulation DR TERRIE SIMS DO [facility] 03-09-2019 pneumococcal conjuga te vaccine, [address] TERRIE SIMS DO [facility] 01-10-2018 influenza virus vacc ine, unspecified formulation DR TERRIE SIMS DO [facility] 08-14-2014 tetanus toxoid, redu balaji diphtheria toxoid, and acellular pertussis vaccine, adsorbed JODY GIRALDO MD [facility] 08-14-2014 diphtheria, tetanus toxoids and acellular pertussis vaccine, unspecified formulation JODY GIRALDO MD [facility] 03-11-2013 influenza virus vacc ine, unspecified formulation DR TERRIE SIMS DO [facility] 04-11-2002 pneumococcal polysaccharide vaccine, 23 valent JODY GIRALDO MD [facility] 03-10-2002 pneumococcal polysaccharide vaccine, [address] TERRIE SIMS DO [facility] Payers Date Payer Category Payer Private Health Insurance [id number] [id number] 2024 Medicare [id number] 2024 Medicare [id number] 2023 Medicare [id number] 2018 Unknown [id number] 1942 Unknown [id number] 2.16.8 40.1.448863.3.579.2. 1942 Unknown [id number] 2.16.8 40.1.329918.3.579.2 1942 Unknown [id number] 2.16. 840.1.140806.3.579.2 1942 Unknown [id number] 2.16. 840.1.035726.3.579.2 1942 Unknown [id number] 2.16. 840.1.605936.3.579.2. 1942 Unknown [id number] 2.16. 840.1.651660.3.579.2. 1942 Unknown [id number] 2.16. 840.1.288639.3.579.2 1942 Unknown [id number] 2.16. 840.1.935932.3.579.2. 1942 Unknown [id number] 2.16.8 40.1.367202.3.579.2.627 1942 Unknown [id number] 2.16.8 40.1.538117.3.579.2.627 1942 Unknown [id number] 2.16.8 40.1.709803.3.579.2.627 1942 Unknown [id number] 2.16.8 40.1.222991.3.579.2.62 1942 Unknown [id number] 2.16.8 40.1.686041.3.579.2.627 1942 Unknown [id number] 2.16.8 40.1.116909.3.579.2.62 1942 Unknown [id number] 2.16.8 40.1.918439.3.579.2. 1942 Unknown [id number] 2.16.8 40.1.175659.3.579.2. 1942 Unknown [id number] 2.16.8 40.1.181971.3.579.2. 1942 Unknown [id number] 2.16.8 40.1.098837.3.579.2. 1942 Unknown [id number] 2.16.8 40.1.913624.3.579.2.62 1942 Unknown [id number] 2.16. 840.1.894594.3.579.2.62 1942 Unknown [id number] 2.16.8 40.1.768926.3.579.2.62 1942 Unknown [id number] 2.16.8 40.1.696835.3.579.2.62 1942 Unknown [id number] 2.16.8 40.1.917317.3.579.2.627 1942 Unknown [id number] 2.16.8 40.1.825251.3.579.2.627 1942 Unknown [id number] 2.16.8 40.1.480682.3.579.2.627 1942 Unknown [id number] 2.16.8 40.1.854606.3.579.2.627 Social History Date Type Detail Facility Start: 12-04-2018 End: 09-01-2023 Heavy tobacco smoker (finding) [facility] Sex Assigned At Female [facility] O[facility] Start: 06-06-2019 Sex Female (finding) [facility] Start: 06-11-2024 End: 07-27-2024 Tobacco smoking status Ex-smoker (finding) [facility] [place] Start: 02-19-2025 Not applicable (qualifier value) [facility] Functional Status Date Assessment Result Facility 02-19-2025 Functional Status Awake, Up ad candice [facility] 02-19-2025 Functional Status [facility] 02-19-2025 Functional Status Maintained [facility] 08-09-2024 Functional Status Independent [facility] 08-09-2024 Functional Status Supervision [facility] 08-09-2024 Functional Status Room located n ear nursing station, Door open, Bathroom light on, Non-Slip footwear, Room check performed [facility] 08-09-2024 Functional Status [facility] 08-09-2024 Functional Status [facility] 08-08-2024 Functional Status [facility] 08-08-2024 Functional Status [facility] 08-08-2024 Functional Status Patient Identi fied Identification band, Verbal [facility] 08-08-2024 Functional Status Maintained [facility] 07-27-2024 Functional Status Sensory Deficits None [facility] 07-01-2024 Functional Status Door open, Non-Slip footwear, toileting refused, Room check performed [facility] 07-01-2024 Functional Status [facility] [facility] 07-01-2024 Functional Status Done Celeste [facility] 07-01-2024 Functional Status [facility] 07-01-2024 Functional Status Sequential Com pression Device bilateral knee high removed/off [facility] 06-30-2024 Functional Status 11am-11pm Celeste [facility] 06-30-2024 Functional Status Returned to bed [facility] 06-30-2024 Functional Status Celeste [facility] 06-30-2024 Functional Status Celeste [facility] 06-30-2024 Functional Status Morning Snack Percent 1 00 [facility] 06-29-2024 Functional Status Celeste [facility] 06-29-2024 Functional Status Celeste [facility] 06-29-2024 Functional Status Patient Identi fied Identification band, Verbal [facility] 06-29-2024 Functional Status Done Celeste [facility] 06-29-2024 Functional Status Celeste [facility] 06-28-2024 Functional Status Celeste [facility] 06-28-2024 Functional Status Single level home [facility] 06-28-2024 Functional Status Celeste [facility] 06-28-2024 Functional Status Celeste [facility] 06-19-2024 Functional Status Awake Celeste [facility] 06-19-2024 Functional Status Repositions self [facility] 06-19-2024 Functional Status Maintained Celeste [facility] 05-29-2024 Functional Status Non-Slip footw ear, Room check performed [facility] 05-29-2024 Functional Status Celeste Bolton [facility] 05-29-2024 Functional Status Celeste Bolton [facility] 05-28-2024 Functional Status Celeste Bolton [facility] 05-28-2024 Functional Status Independent Celeste Bolton [facility] 05-28-2024 Functional Status Celeste Bolton [facility] 05-27-2024 Functional Status Celeste Bolton [facility] 05-27-2024 Functional Status Celeste Bolton [facility] 05-27-2024 Functional Status Celeste costello [facility] 05-27-2024 Functional Status Celeste costello [facility] 05-27-2024 Functional Status Celeste costello [facility] 05-27-2024 Functional Status Celeste costello [facility] 05-26-2024 Functional Status Celeste Bolton [facility] 05-26-2024 Functional Status Ambulation Dev ice Utilized Other: Rollator [facility] 05-25-2024 Functional Status Celeste Bolton [facility] 05-25-2024 Functional Status Celeste Bolton [facility] 05-24-2024 Functional Status Celeste Bolton [facility] 05-23-2024 Functional Status Single level h ome, 1st floor bedroom, 1st floor bathroom, basement dcundry [facility] 05-23-2024 Functional Status None Celeste Bolton [facility] 05-23-2024 Functional Status 85 Celeste Bolton [facility] 05-23-2024 Functional Status Door open, Non-Slip footwear [facility] 05-23-2024 Functional Status Celeste Bolton [facility] 05-23-2024 Functional Status Celeste Bolton [facility] 05-22-2024 Functional Status 7am-7pm Celeste Bolton [facility] 05-22-2024 Functional Status Front wheeled walker [facility] 05-22-2024 Functional Status Supervised Celeste Bolton [facility] 05-22-2024 Functional Status bilateral knee high rem mary/off [facility] 05-22-2024 Functional Status Celeste Bolton [facility] 05-21-2024 Functional Status Celeste Bolton [facility] 05-21-2024 Functional Status Celeste Bolton [facility] 05-21-2024 Functional Status Done Celeste Bolton [facility] 05-20-2024 Functional Status low air loss bed [facility] 05-20-2024 Functional Status Dinner Percent 60 [facility] 05-20-2024 Functional Status Up to Chair Si tting on edge of bed [facility] 05-20-2024 Functional Status Single level home [facility] 05-20-2024 Functional Status Lunch Percent 80 [facility] 05-20-2024 Functional Status Celeste Bolton [facility] 05-20-2024 Functional Status Celeste Bolton [facility] 05-20-2024 Functional Status Celeste Bolton [facility] 05-20-2024 Functional Status Celeste Bolton [facility] 05-20-2024 Functional Status Standard Safet y ID band on, Call device within reach, Bed in low position, Wheels locked, Upper/Half-Length side-rails up, Safety level maintained [facility] 05-19-2024 Functional Status Room check performed [facility] 05-19-2024 Functional Status Celeste Bolton [facility] 05-19-2024 Functional Status Celeste Bolton [facility] 05-19-2024 Functional Status Single level home [facility] 05-19-2024 Functional Status Supervised Celeste Bolton [facility] 05-19-2024 Functional Status Celeste Bolton [facility] 05-19-2024 Functional Status Celeste Bolton [facility] 05-18-2024 Functional Status None Celeste Bolton [facility] 05-18-2024 Functional Status Door open, Room check performed [facility] 05-18-2024 Functional [address] Celeste [address] [facility] 05-18-2024 Functional Status Celeste Bolton [facility] 05-18-2024 Functional Status Celeste Bolton [facility] 05-18-2024 Functional Status Celeste Bolton [facility] 05-17-2024 Functional Status Celeste Bolton [facility] 05-17-2024 Functional Status Skin Care Prod uct Applied Skin moisturizer [facility] 05-17-2024 [facility] Functional Status Dinner Percent 80 [facility] 05-16-2024 Functional Status Ambulation Encouraged/reinforced importance of ambulation [facility] 05-15-2024 Functional Status [facility] 05-14-2024 Functional Status Single level home [facility] 05-13-2024 Functional [facility] 05-13-2024 Functional Status heel(s)s eleva kamran, padded oxygen tubing [facility] 05-13-2024 Functional Status Standard Safet y ID band on, Call device within reach, Bed in low position, Wheels locked, Bedside Cart Locked, Visitor at bedside, Safety level maintained [facility] 05-13-2024 Functional Status Awake [facility] Mental Status Date Assessment Result Facility 02-19-2025 Mental Status Orientation Oriented x 4 [facility] 02-19-2025 Mental Status [facility] 02-19-2025 Mental Status [facility] 08-09-2024 Mental Status Orientation Oriented x 4 [facility] 08-09-2024 Mental Status [facility] 08-08-2024 Mental Status [facility] 07-01-2024 Mental Status Oriented x 4 [facility] 07-01-2024 Mental Status [facility] 07-01-2024 Mental Status [facility] 06-30-2024 Mental Status [facility] 06-19-2024 [facility] Status [facility] 05-29-2024 Mental Status Oriented x 4 [facility] 05-28-2024 Mental Status [facility] 05-28-2024 Mental Status [facility] 05-28-2024 Mental Status [facility] 05-23-2024 Mental Status Oriented x 4 [facility] 05-22-2024 Mental Status [facility] 05-22-2024 Mental Status [facility] 05-19-2024 Mental Status Oriented x 4 [facility] 05-19-2024 Mental Status [facility] 05-19-2024 Mental Status [facility] 05-18-2024 Mental Status [facility] 05-18-2024 Mental Status Orientation Oriented x 4 [facility] 05-18-2024 Mental Status [facility] 05-18-2024 Mental Status [facility] 05-13-2024 Mental Status Orientation Oriented x 4 [facility] 05-13-2024 Mental Status [facility] 05-13-2024 Mental Status [facility] Clinical Notes 02-17-2021 to 02-19-2025 Note [...] until you are awake and alert. Take kvig-onz-ylpsuwk and prescription medicines only as told by [...] 01/16/2014 Document Revised: 03/10/2018 Document Reviewed: 07/17/2016 [employer] Patient Education 2020 [employer]. 02/19/2025 11:46:54 3- Heart Cath/PCI radial (01/2018)(CUSTOM) [...] Document Reviewed: 03/29/2014 ExitCare Patient Information 2015 [employer]. This information is not intended to replace advice given to you by your health care provider. Make sure you discuss any questions you have with your health care provider. Follow Up Care 02/06/2025 11:31:21 With:VICTOR MANUEL PETERSON MD Address: [address] [place] [address]- [phone] When:03/21/2025 15:00:00 Comments:THIS APPOINTMENT WILL BE WITH CARLOS DIEHL CNP [facility] 02-19-2025 Summary of episod e note Discharge Instructions Thank you for allowing [facility] to assist you with your healthcare needs. The following is important discharge information regarding your hospital visit. Your Care Team DONATO NAVARRETE DO What to do next Scheduled Follow-Up Appointments Appointment Type When With Where Contact Information StatusCV OV 03/21/2025 03:00 PM EST ASIM DIEHL APRN-JOI [facility] Confirmed CV OV 12/19/2025 03:30 PM EDT MEREDITH BAILON [facility] Confirmed Follow Up Appointments Follow Up with VICTOR MANUEL PETERSON MD When:03/21/2025 03:00 PM EST Where:[address] [place] [address]- [phone] Additional Information: THIS APPOINTMENT WILL BE WITH [...] Duration: 90 Days Refills: 3 Pickup at [facility] Unchanged apixaban (Eliquis 5 mg oral tablet) [...] tab(s) by mouth Every day Pharmacy Information [facility]: [address] [place] [address] [phone] Please take this list to your next [...] until you are awake and alert. Take hmks-hhv-ipjvvwn and prescription medicines only as told by [...] 01/16/2014 Document Revised: 03/10/2018 Document Reviewed: 07/17/2016 [employer] Patient Education 2020 [employer] HEART CATHETERIZATION/PCI (radial) Discharge Instructions DIET [...] Document Reviewed: 03/29/2014 ExitCare Patient Information 2015 [employer]. This information is not intended to replace advice given to you by your health care provider. Make sure you discuss any questions you have with your health care provider. Additional Information VACCINATE! IT SAVES LIVES! Members of the community who have not yet received the COVID-19 vaccine and would like to receive it can visit one of [facility] vaccine clinics. There are many vaccine clinic locations within the [facility]. For locations and available times, please visit [email or web address] It is important to note that some COVID mobile vaccine clinics are held outdoors and may be canceled in rainy or stormy conditions. To learn more about pediatric vaccinations (ages 5-11), we invite you to visit the [facility] webpage. https://www.[facility].org/p ages/7154-Bwatx-Fnteyybygrw-Freq ifckfj-Epagk-Fhapdelcv.html To learn more about the COVID-19 vaccine, we invite you to visit the CDC website for a list of frequently asked questions.https://www.cdc.gov/co ronavirus/2019-ncov/vaccines/faq .html [employer] Patient Portal Access Instructions: Stay connected with your healthcare team and access your personal medical information anytime with the [employer] Patient Portal. Please follow the directions below to create your [employer] account: 1.Access the email account you provided upon registration to the hospital/physician office.2.Look for an invitation email from [facility].3.Open the email and access the invitation link: Accept Invitation to [employer].4.Fill in the required tripp to create your account. To access your account, visit [email or web address] or scan the Ploonge code above. Click the blue button labeled [...] you will allow to register on the [facility] Patient Portal for access to your information. You can also access the [employer] Patient Portal on the [employer] Anywhere duke. Simply click on Patient Portal and then log into your account. If you would like to receive a full copy of your medical records, please contact the [facility] Medical Records Department by calling [phone], Tuesday through Tuesday between 8 a.m. and [...] Call your local pharmacy or go to http://Genwords.Chatosity/8E5Rx6x to find one close to you.3.Make use of household items: Use cat litter or old coffee grounds to dispose medications if other options are not available. Mix your drugs with these household products, seal them in an airtight container and throw it into the garbage. Call [facility]: [phone] to be sure your drugs can be [...] aware that I should contact my doctor. 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 Signature: Date/Time: Relationship to Patient: Witness Name/Signature: Date/Time: [facility] 02-19-2025 Discharge summary Date of Service 02/19/2025 [...] PM EST Where:[address] [facility] [place] [address]- [phone] Additional Information: THIS APPOINTMENT WILL BE WITH [...] MANUEL PETERSON MD on 02/19/2025 03:48 PM [facility] 02-11-2025 Nurse Progress note patient tolerated prolia injection without signs or symptoms of a reaction Digitally Signed by Marcelle Davidson RN on 02/11/2025 01:35 PM [facility] 01-08-2025 Note Exam Date Time Procedure Performing Provider Status 01/08/25 1:14 PM Echocardiogram, Adult - CV MONIKA AGUSTIN MD; Auth (Verified) [facility]09-23-2025 Note* Exam Date Time Procedure Performing Provider Status 01/01/25 10:56 AM XR Chest 2 Views SHANNAN CELIS MD; [facility] (Verified) [id number] ORIGINAL EXAMINATION: TWO XRAY VIEWS OF THE [...] 01/01/2025 3:15:11 PM Ordering Provider: ASIM DIEHL [facility]05-01-2025 Hospital Discharge instructions Patient Education 08/09/2024 08:14:32 [...] need to report the following to your oncology navigator: Any draining or oozing from the site [...] Document Reviewed: 03/29/2014 ExitCare Patient Information 2014 [employer]. This information is not intended to replace advicegiven to you by your health care provider. Make sure you discuss any questions you have with your health care provider. 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 The following is importantdischarge information regarding your hospital visit. Your Care Team EMILIANO LEAL DO Your Diagnosis HFrEF (heart failure with reduced ejection fraction) Wheezing What to do next Scheduled Follow-Up Appointments Appointment Type When With Where Contact Information StatusCV OV 09/19/2024 03:00 PM EDT ASIM DIEHL [facility] Confirmed CV OV 11/12/2024 03:00 PM EDT ANASTASIYA JEFF [facility] Confirmed Follow Up Appointments Follow Up with ASIM DIEHL When:09/19/2024 03:00 PM EDT Where[address] [place] [address]- [phone] Follow Up with HARRY BAILON MD When:11/12/2024 03:00 PM EDT Where:[address] [place] [address]- [phone] Additional Information: THIS APPOINTMENT WILL BE WITH [...] need to report the following to your oncology navigator: Any draining or oozing from the site [...] Document Reviewed: 03/29/2014 ExitCare Patient Information 2015 [facility]. This information is not intended to replace advicegiven to you by your health care provider. Make sure you discuss any questions you have with your health care provider. Additional Information VACCINATE! IT SAVES LIVES! Members of the community who have not yet received the COVID-19 vaccine and would like to receive it can visit one of [facility] vaccine clinics. There are many vaccine clinic locations within the [facility]. For locations and available times, please visit [email or web address]/. It is important to note that some COVID mobile vaccine clinics are held outdoors and may be canceled in rainy or stormy conditions. To learn more about pediatric vaccinations (ages 5-11), we invite you to visit the [facility] webpage. https://www.[facility].org/pages/8804-Secti-Eiibvfmgile-Auiveytrwz-Abfdj-Qwa stions.htmlTo learn more about the COVID-19 vaccine, we invite you to visit the CDC website for a list of frequently asked questions.https://www.cdc.gov/coronavirus/2019-ncov/vaccines/faq.html [employer] Patient Portal Access Instructions: Stay connected with your healthcare team and access your personal medical information anytime with the [employer] Patient Portal. Please follow the directions below to create your [employer] account: 1.Access the email account you provided upon registration to the hospital/physician office.2.Look for an invitation email from [facility].3.Open the email and access the invitation link: AcceptInvitation to [employer].4.Fill in the required tripp to create your account. To access your account, visit [email or web address]/Imagen [employer]. Click the blue button labeled Access Patient Portal and then log in with the username and password that you created in the steps above. You will be able to view your test results, lab results, a summary of your visits, upcoming appointments and more. There is also a convenient messaging option where you can send secure messages to your Advanced Marketing & Media Groupvider. In addition, you will have the ability to download any documents or summaries to your computer and/or send the information securely to a physician. Remember that your healthcare information is confidential, so carefully consider who you will allowto register on the [employer] Patient Portal for access to your information. You can also access the [employer] Patient Portal on the [facility] Anywhere duke. Simply click on Patient Portal and then log into your account. If you would like to receive a full copy of your medical records, please contact the [facility] Medical Records Department by calling [phone], Tuesday through Tuesday between 8 a.m. and [...] Call your local pharmacy or go to http://Genwords.Chatosity/[email or web address] to find one close to you.3.Make use of household items: Use cat litter or old coffee grounds to dispose medications if other options arenot available. Mix your drugs with these household products, seal them in an airtight container andthrow it into the garbage. Call [facility]: [phone] to be sure your drugs can be [...] aware that I should contact my doctor. 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 Signature: Date/Time: Relationship to Patient: Witness Name/Signature: Date/Time: [id number] Note* Exam Date Time Procedure Performing Provider Status 08/09/24 3:42 AM Electrocardiogram - EKG - CV NIKOLASP LISA PARISH MD; Auth (Verified) ECG Final Report SINUS RHYTHM BORDERLINE PROLONGED QT INTERVAL Electronic Signature: LISA BOSS MD 08/09/2024 07:44:04 [id number] Anesthesiology Consult note Patient: JED SEWELL Age: [...] ARTURO POE MD on 08/08/2024 02:10 PM [id number] Note* Exam Date Time Procedure Performing Provider Status 08/08/24 12:00 PM Ablation CV HARRY BAILON MD; Auth (Ve rified) [facility] [id number] Anesthesiology Consult note Patient: JED SEWELL Age: [...] failure, stage 3 (moderate) / SNOMED CT 757769381 / Confirmed COPD - Chronic obstructive pulmonary disease / SNOMED CT 836092649 / Confirmed HFrEF (heart failure with reduced ejection fraction) / SNOMED CT 8605955221 / Confirmed HTN (hypertension) / SNOMED CT [id number] / Confirmed Osteoporosis / SNOMED CT 111938194 / Confirmed Persistent atrial fibrillation / SNOMED CT 0502642982 / Confirmed Serum calcium elevated / SNOMED CT 894461287 / Confirmed Wheezing / SNOMED CT 20818243 / Confirmed Resolved: Acute bronchitis due to infection / SNOMED CT 955052013 Resolved: DDD (degenerative disc disease), lumbar / SNOMED CT 70088025 Resolved: Microalbuminuria / SNOMED CT 316671995 Resolved: Neck pain on right side / SNOMED CT 972960885 Resolved: Proteinuria of undiagnosed cause / SNOMED CT 343464796 Resolved: Sciatica / SNOMED CT 06891825 Canceled: Atrial fibrillation / SNOMED CT 97566875 Canceled: Atrial fibrillation, rapid / SNOMED CT 009826918 Canceled: H/O osteoporosis / SNOMED CT 634636075 Canceled: Hypercalcemia / SNOMED CT 647322395 Canceled: Immunization due / SNOMED CT 315916887, Active Problems (17) Chronic renal failure, stage 3 (moderate) Constipation COPD - Chronic obstructive pulmonary disease BENNETT (dyspnea on exertion) Glasses Hard of hearing HFrEF (heart failure with reduced ejection fraction) HTN (hypertension) Hyperparathyroidism NM (myocardial infarction) Mitral regurgitation Osteoporosis Persistent atrial fibrillation Presence of dental prosthetic device Seasonal allergy Serum calcium elevated Wheezing Histories Past Medical History: Active HTN (hypertension) ([id number]) Resolved Sciatica (14672391): Resolved. Microalbuminuria (326827227): Resolved. DDD (degenerative disc disease), lumbar (27481584): Resolved. Neck pain on right side (243811504): Resolved. Proteinuria of undiagnosed cause (590616744): Resolved. Acute bronchitis due to infection (039044930): Resolved. Family History: Respiratory disease Father Sister Brother COPD Mother Colon cancer Sister Procedure history: Cardioversion ([id number]) on 06/29/2024 at 83 Years. Comments: 07/12/2024 15:37 Noemi Perez LPN Successful Echocardiogram ([id number]) on 05/16/2024 at 83 Years. Comments: 07/12/2024 [...] mm Hg. Colonoscopy and biopsy of colon (2389266139) on 11/02/2019 at 78 Years. Colonoscopy (296140717) on 04/11/2011 at 70 Years. Ovarian cyst ([id number]). Appendectomy (373377955). Cholecystectomy (93661160). Abdominal hysterectomy (038799511). Cataract extraction and IOL (implantation of intraocular lens) (4717217151). Comments: 07/27/2024 12:49 EDT - [facility] [place] bilateral Dilation of urethral meatus (8614188219). Social History: Social & Psychosocial Habits Alcohol [...] Charted Temp Oral36.3 DegC (AUG 08 07:53) PFD668 mmHg (AUG 08 07:53) DBP72 mmHg (AUG 08 07:53) Measurements from flowsheet : Measurements 08/08/2024 7:53 EDT Height 157.5 cm Height in inches 62 inch(es) Admission Weight 65.9 kg Weight Lbs 145 lb Weight Method Actual [place] Body Weight 50.12 kg Type of Scale Used Standing Admission Body Mass Index 26.57 m2 08/07/2024 14:48 EDT Height 157.5 cm Height in inches 62 inch(es) Admission Weight 66.2 kg Weight Lbs 145.6 lb Weight Method Actual [place] Body Weight 50.12 kg BSA Admission 1.67 [...] #1 We May Share PHI Natalie elizabeth- [phone] Designated Person #1 Relationship Daughter Designated Person #2 We May Share PHI Kayode [phone] Designated Person #2 Relationship Family member Privacy Restrictions Requested None Height 157.5 cm Height in inches 62 inch(es) Admission Weight 65.9 kg Weight Lbs 145 lb Weight Method Actual [place] Body Weight 50.12 kg Type of Scale [...] No Advanced Directives Yes Advance Directive Type [place] Durable Power of Boat Hand for [place], [place] Declaration (Living Will) Advance Directive Location [...] evident Teaching Method Explanation Preferred Spoken Language Citizen Of [place] Preferred Written Language Citizen [place] Teaching Evaluation Verbalizes/Nonverbally indicates understanding General Infection [...] Weight Lbs 145.6 lb Weight Method Actual [place] Body Weight 50.12 kg BSA Admission 1.67 Body Mass Index 26.69 kg/m2 Peripheral Pulse Rate 95 bpm Systolic Blood Pressure Non-Invasive 140 mmHg Diastolic Blood Pressure Non-Invasive 70 mmHg Blood Pressure Method Manual Blood Pressure Location Left arm Blood Pressure Cuff Size Large Oxygen Saturation 97 % Advanced Directives Yes Advance Directive Type [facility] Power of Boat Hand for [place], [place] Declaration (Living Will) Advance Directive Location Indicates that [facility] has been given copyright expert Complaint 4 to 6 week F/U Post Hospital Dx a-fib and CHF. C/O O2 at 1 liter prn C/) SOB Comprehensive Intake-Specialty OfficeAMB Ambulatory Comprehensive Intake - Specialty Office Preferred Lab [facility] facility Preferred Rad [facility] 08/07/2024 14:45 EDT Cardiology Office Note Office Visit Note History of Present Illness Documentation History of Present Illness Documentation Impression and Plan Documentation Impression and Plan Documentation Review of Systems Documentation Review of Systems Documentation Physical Examination Documentation Physical Examination Documentation . Assessment and Plan [place] [employer] Anesthesiologists (ASA) physical status classification: [...] ARTURO POE MD on 08/08/2024 11:21 AM [id number] Note* Exam Date Time Procedure Performing Provider Status 08/08/24 8:26 AM Electrocardiogram - EKG - CV NIKOLASP LISA PARISH MD; Auth (Verified) ECG Final Report ATRIAL FIBRILLATION BORDERLINE PROLONGED QT INTERVAL Electronic Signature: LISA BOSS MD 08/09/2024 07:43:54 [facility] [id number] History and physical note Date of Service August 03, 2024 Primary EP: Dr. Bailon History and Physical Update I have examined the patient; reviewed the History and Physical and there are no changes to the History and Physical unless noted below. Digitally Signed by ANASTASIYA JEFF APRN-ALTERATIONS TAILOR on 08/03/2024 03:40 PM [facility] [id number] Discharge summary Date of Service 07/01/2024 Discharge Diagnosis Atrial Fibrillation Acute on Chronic HFrEF Hospital Course 83-year-old female with history of recently diagnosed atrial fibrillation (status post cardioversion on June 19), recently diagnosed HFmrEF, hypertension, osteoporosis Transferred from [place] for acute on chronic HFmrEF in the [...] up with your Primary Care Physician and Honing Machine Set Up Operator Tool as recommended. _ 2. Some of your medications may have changed during this hospital stay. Please go over these changes with your nurse before you leave the hospital. _ 3. Take all your medications as prescribed. If you have any queries, please reach out to our [facility] office at [phone] for general queries and [phone] for medication refills. 4. All your medical records and results are available to you through our [facility] Patient Portal. Tosign up, please visit [email or web address] Medications New Prescription amLODIPine (amLODIPine 5 mg [...] Up Follow Up with EMILIANO LEAL Where:[address] [place] [address] [phone] Business (1) Additional Information: PLEASE CALL THIS OFFICE TO SCHEDULE A HOSPITAL FOLLOW UP APPOINTMENT. Follow Up with [facility] has been arranged for you. Call [phone] with any questions Additional Information: Home Physcial therapy has been arranged. Follow Up with readmission score is 12 Follow Up with ASIM DIEHL APRN-JOI When:07/23/2024 03:30 PM EDT [address] [place] [address]- Follow Up Appointments No qualifying data available. [...] GEETA BEASLEY MD on 07/01/2024 01:15 PM [facility]4155 Note Discharge Instructions Thank you for allowing [facility] to assist you with your healthcare needs. The following is importantdischarge information regarding your hospital visit. Your Care Team EMILIANO LEAL DO What to do next Instructions From Your Doctor 1. Kindly follow up with your Primary Care Physician and Honing Machine Set Up Operator Tool as recommended. You will needto do labwork in 3-5 days after being discharged. 2. Some of your medications may have changed during this hospital stay. Please go over these changes with your nurse before you leave the hospital. _ 3. Take all your medications as prescribed. If you have any queries, please reach out to our [facility] office at [phone] for general queries and [phone] for medication refills. 4. All your medical records and results are available to you through our [facility] Patient Portal. Tosign up, please visit [email or web address] Scheduled Follow-Up Appointments Appointment Type When With Where Contact Information StatusCV OV 07/10/2024 03:00 PM EDT ASIM DIEHL [facility] Confirmed PC OV 07/19/2024 03:30 PM EDT EMILIANO LEAL DO [address] [id number] Confirmed CV OV 08/07/2024 03:00 PM EDT ASIM DIEHL [facility] Confirmed CV OV 09/11/2024 01:00 PM EDT [facility] Follow Up with [facility] [phone] for your oxygen questions When:Within 1-2 days Follow Up with EMILIANO LEAL Where:[address] [place] [address] [phone] Business (1) Additional Information: PLEASE CALL THIS OFFICE TO SCHEDULE A HOSPITAL FOLLOW UP APPOINTMENT. Follow Up with [facility] has been arranged for you. Call [phone] with any questions Additional Information: Home Physcial therapy has been arranged. Follow Up with readmission score is 12 Follow Up with ASIM DIEHL When:07/23/2024 03:30 PM EDT Where:[address] [place] [address]- The Following Activity and Diet Have Been [...] Once a day Refills: 3 Pickup at [facility] New bumetanide (bumetanide 1 mg oral tablet) 1 tab(s) by mouth Once a day Refills: 3 Pickup at [facility] Unchanged amiodarone (amiodarone 200 mg oral tablet) [...] a day Take with food Pharmacy Information [facility]: [address], [place] [id number] [phone] What How Much When Comments Stop Taking [...] oxygen Your health care provider or a veterans employment representative from your medical assembler company will show you how touse your [...] move around. Follow instructions from your medical assembler company about how to safely secure your tank. Make sure you have enough oxygen for the amount of time you will be away from home. If you are planning air travel, contact the airline to find out if they allow the use of an approved portable oxygen concentrator. You may also need documents from your health care provider and medical assembler company before you travel. General safety tips [...] Summary Your health care provider or a veterans employment representative from your medical assembler company will show you how touse your [...] 06/17/2004 Document Revised: 09/14/2018 Document Reviewed: 10/19/2016 [employer] Patient Education 2020 [employer] Heart Failure Eating Plan Heart failure, also called congestive heart failure, occurs when your heart does not pump blood well enough to meet your body's needs for oxygen-rich blood. Heart failure is a long-term (chronic) condition. Living with heart failure can be challenging. However, following your health care provider'sinstructions about a healthy lifestyle and working with a diet and nutrition director (dietitian) to choose the right foods may [...] cheese. Low-sodium cottage cheese. Fats and oils Gypsum, canola, soybean, flaxseed, or sunflower oil. Avocado. Sweets and desserts Apple sauce. Granola bars. Sugar-free pudding and gelatin. Frozen fruit bars. Seasoning and other foods Fresh and dried herbs. Lemon or naknek juice. Vinegar. Low-sodium ketchup. Salt- free marinades, [...] vegetables with sauce or seasonings. Creamed vegetables. Indian fries. Onion rings. Pickled vegetables and sauerkraut. [...] Salted nuts and seeds. Dairy Whole milk, kpnl-rfg-goab, and cream. Buttermilk. Processed cheese, cheese spreads, [...] and bouillon cubes. Horseradish, ketchup, and mustard. [facility] Hospitaltershire sauce. Teriyaki sauce, soy sauce (including [...] 08/12/2017 Document Revised: 05/24/2019 Document Reviewed: 08/12/2017 [employer] Patient Education 2020 [employer]. Heart Failure Exacerbation Heart failure is a [...] Follow these instructions at home: Medicines Take bugx-vti-lvgvele and prescription medicines only as told by your health care provider. Do not stop taking your medicines or change the amount you take. If you are having problems or sideeffects from your medicines, talk to your health care provider. If you are having difficulty paying for your medicines, contact a social work manager or your clinic. There are many programs [...] 08/09/2017 Document Revised: 03/10/2018 Document Reviewed: 08/09/2017 [employer] Patient Education 2020 [employer] Atrial Fibrillation Atrial fibrillation is a [...] may be diagnosed with: Electrocardiogram (ECG). Ambulatory shelter monitor. This device records your heartbeats for [...] 03/28/2006 Document Revised: 05/18/2018 Document Reviewed: 05/19/2018 [employer] Patient Education 2020 [employer] Additional Information VACCINATE! IT SAVES LIVES! Members of the community who have not yet received the COVID-19 vaccine and would like to receive it can visit one of [facility] vaccine clinics. There are many vaccine clinic locations within the [facility]. For locations and available times, please visit [email or web address] It is important to note that some COVID mobile vaccine clinics are held outdoors and may be canceled in rainy or stormy conditions. To learn more about pediatric vaccinations (ages 5-11), we invite you to visit the [facility] webpage. [email or web address] learn more about the COVID-19 vaccine, we invite you to visit the CDC website for a list of frequently asked questions.https://www.cdc.gov/coronavirus/2019-ncov/vaccines/faq.html [facility] [employer] Patient Portal Access Instructions: Stay connected with your healthcare team and access your personal medical information anytime with the [facility] [employer] Patient Portal. Please follow the directions below to create your FireScope account: 1.Access the email account you provided upon registration to the hospital/physician office.2.Look for an invitation email from [facility].3.Open the email and access the invitation link: AcceptInvitation to [facility] [employer].4.Fill in the required tripp to create your account. To access your account, visit ScriptRx/Im[employer]. Click the blue button labeled Access Patient Portal and then log in with the username and password that you created in the steps above. You will be able to view your test results, lab results, a summary of your visits, upcoming appointments and more. There is also a convenient messaging option where you can send secure messages to your Advanced Marketing & Media Groupvider. In addition, you will have the ability to download any documents or summaries to your computer and/or send the information securely to a physician. Remember that your healthcare information is confidential, so carefully consider who you will allowto register on the [facility] [employer] Patient Portal for access to your information. You can also access the [facility] Patient Portal on the [facility] Anywhere dkue. Simply click on Patient Portal and then log into your account. If you would like to receive a full copy of your medical records, please contact the [facility] Medical Records Department by calling [phone], Tuesday through Tuesday between 8 a.m. and [...] Call your local pharmacy or go to [email or web address] to find one close to you.3.Make use of household items: Use cat litter or old coffee grounds to dispose medications if other options arenot available. Mix your drugs with these household products, seal them in an airtight container andthrow it into the garbage. Call [facility]: [phone] to be sure your drugs can be [...] aware that I should contact my doctor. 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 Signature: Date/Time: Relationship to Patient: Witness Name/Signature: Date/Time: [facility]vlegdfh[facility]-2025 Discharge summary Date of Service 07/01/2024 Discharge Diagnosis Atrial Fibrillation Acute on Chronic HFrEF Hospital Course 83-year-old female with history of recently diagnosed atrial fibrillation (status post cardioversion on June 19), recently diagnosed HFmrEF, hypertension, osteoporosis Transferred from [place] for acute on chronic HFmrEF in the [...] up with your Primary Care Physician and Honing Machine Set Up Operator Tool as recommended. _ 2. Some of your medications may have changed during this hospital stay. Please go over these changes with your nurse before you leave the hospital. _ 3. Take all your medications as prescribed. If you have any queries, please reach out to our [facility] office at [phone] for general queries and [phone] for medication refills. 4. All your medical records and results are available to you through our [facility] Patient Portal. Tosign up, please visit [email or web address] Medications New Prescription amLODIPine (amLODIPine 5 mg [...] Up Follow Up with EMILIANO LEAL Where:[address] [place] [address] [phone] Business (1) Additional Information: PLEASE CALL THIS OFFICE TO SCHEDULE A HOSPITAL FOLLOW UP APPOINTMENT. Follow Up with [facility] has been arranged for you. Call [phone] with any questions Additional Information: Home Physcial therapy has been arranged. Follow Up with readmission score is 12 Follow Up with ASIM DIEHL When:07/23/2024 03:30 PM EDT [facility] [place] [address]- Follow Up Appointments No qualifying data available. [...] GEETA BEASLEY MD on 07/01/2024 01:15 PM [facility]Ytpapcaf46-65-0978 Hospital Discharge instructions Patient Education 07/01/2024 10:23:13 [...] oxygen Your health care provider or a veterans employment representative from your medical assembler company will show you how touse your [...] move around. Follow instructions from your medical assembler company about how to safely secure your tank. Make sure you have enough oxygen for the amount of time you will be away from home. If you are planning air travel, contact the airline to find out if they allow the use of an approved portable oxygen concentrator. You may also need documents from your health care provider and medical assembler company before you travel. General safety tips [...] Summary Your health care provider or a veterans employment representative from your medical assembler company will show you how touse your [...] 06/17/2004 Document Revised: 09/14/2018 Document Reviewed: 10/19/2016 [employer] Patient Education 2020 [employer]. 07/01/2024 10:23:02 Heart Failure Eating Plan Heart [...] lifestyle and working with a diet and nutrition director (dietitian) to choose the right foods may [...] cheese. Low-sodium cottage cheese. Fats and oils Gypsum, canola, soybean, flaxseed, or sunflower oil. Avocado. Sweets and desserts Apple sauce. Granola bars. Sugar-free pudding and gelatin. Frozen fruit bars. Seasoning and other foods Fresh and dried herbs. Lemon or naknek juice. Vinegar. Low-sodium ketchup. Salt- free marinades, [...] vegetables with sauce or seasonings. Creamed vegetables. Indian fries. Onion rings. Pickled vegetables and sauerkraut. [...] Salted nuts and seeds. Dairy Whole milk, gqbt-bjx-zjyb, and cream. Buttermilk. Processed cheese, cheese spreads, [...] 08/12/2017 Document Revised: 05/24/2019 Document Reviewed: 08/12/2017 [employer] Patient Education 2020 [employer]. 07/01/2024 10:22:57 Heart Failure Exacerbation Heart [...] Follow these instructions at home: Medicines Take umgv-qhk-wnofkxk and prescription medicines only as told by your health care provider. Do not stop taking your medicines or change the amount you take. If you are having problems or sideeffects from your medicines, talk to your health care provider. If you are having difficulty paying for your medicines, contact a social work manager or your clinic. There are many programs [...] 08/09/2017 Document Revised: 03/10/2018 Document Reviewed: 08/09/2017 [employer] Patient Education 2020 [employer]. 07/01/2024 10:22:22 Atrial Fibrillation Atrial Fibrillation Atrial [...] may be diagnosed with: Electrocardiogram (ECG). Ambulatory shelter monitor. This device records your heartbeats for [...] 03/28/2006 Document Revised: 05/18/2018 Document Reviewed: 05/19/2018 [employer] Patient Education 2020 [employer]. Follow Up Care 06/28/2024 02:34:39 With:[facility] medical [phone] for your oxygen questions Address:Unknown When:1-2 days With:ASIM DIEHL Address: [address] [place] [address]- When:07/23/2024 15:30:00 With:EMILIANO LEAL Address: [address] [place] [address] [phone] Business (1) When: Unknown Comments:PLEASE CALL THIS OFFICE TO SCHEDULE A HOSPITAL FOLLOW UP APPOINTMENT. With:[facility] has been arranged for you. Call [phone] with any questions Address:Unknown When: Unknown Comments:Home Physcial therapy has been arranged. With:readmission score is 12 Address:Unknown When: Unknown [facility] 03-23-2025 Respiratory therapy Hospital Progress note Respiratory [...] by MYRTLE Holden on 07/01/2024 07:19 AM [facility] NorthZliazvev06-50-5169 Cardiology Progress note Date of Service 06/30/2024 [...] diagnosed HFmrEF, hypertension, osteoporosis Being transferred from [place] for acute on chronic HFmrEF in the [...] GEETA BEASLEY MD on 06/30/2024 11:59 AM [facility] NorthUcrorlqk84-58-6006 Cardiology Progress note Date of Service 06/30/2024 [...] diagnosed HFmrEF, hypertension, osteoporosis Being transferred from [place] for acute on chronic HFmrEF in the [...] GEETA BEASLEY MD on 06/30/2024 11:59 AM [facility] NorthVfwahbus44-77-9582 Cardiology Progress note Date of Service 06/29/2024 [...] diagnosed HFmrEF, hypertension, osteoporosis Being transferred from [place] for acute on chronic HFmrEF in the [...] ISAURA JACKSON MD on 06/29/2024 11:45 PM [facility] NorthJoshkmow64-34-0655 Note* Exam Date Time Procedure Performing Provider Status 06/29/24 6:[address] Thorax w/o Contrast ROCCO WILSON MD; Auth (Verified) [id number] ORIGINAL HISTORY: Short of breath COMPARISON: 21 [...] 06/30/2024 8:44:59 AM Ordering Provider: ISAURA JACKSON [facility] NorthPupetait44-46-3258 Pastoral care Progress note Pastoral Care Note Entered On: 06/29/2024 14:49 EDT Performed On: 06/29/2024 13:16 EDT by Salvador Sánchez [facility] Type of Pastoral Visit : Initial visit [...] by Salvador Sánchez on 06/29/2024 02:48 PM [facility] NorthWauwneso07-57-7741 Note* Exam Date Time Procedure Performing Provider Status 06/29/24 10:40 AM Electrocardiogram - EKG - CV LUCIANO HYLTON MD; Auth (Verified) ECG Final Report SINUS RHYTHM ATRIAL PREMATURE COMPLEX PROBABLE LEFT ATRIAL ENLARGEMENT ANTERIOR INFARCT, AGE INDETERMINATE Electronic Signature: SANGITA HYLTON MD 06/30/2024 14:52:45 [facility] NorthZczhingd76-79-0789 Procedure note DATE: 06/29/24 PROCEDURE: DC cardioversion INDICATIONS: persistent atrial fibrillation PHYSICIAN: Dr Bailon SHIPPING AND RECEIVING WEIGHER: Dr Gunter ; Eileen Rosas HPI: recurrent [...] HARRY BAILON MD on 06/29/2024 10:09 AM [facility] NorthGnkhlivx05-46-9157 Cardiology Progress note Date of Service 06/29/2024 [...] diagnosed HFmrEF, hypertension, osteoporosis Being transferred from [place] for acute on chronic HFmrEF in the [...] ISAURA JACKSON MD on 06/29/2024 11:45 PM [facility] NorthUxnookws44-43-9132 Anesthesiology Consult note Patient: JED SEWELL Age: [...] Oral, qDay, #90 cap(s), 3 Refill(s), Pharmacy: [facility], 160, cm, 06/13/24 13:57:00 EST, Height, kg, 06/13/24 13:57:00 EST, Dosing Weight Eliquis 5 mg oral tablet: Dose : 5 mg = 1 tab(s), Oral, BID, # 180 tab(s), 3 Refill(s), Pharmacy: [facility], 160, cm, 06/19/24 6:42:00 EDT, Height, 61.3, kg, 06/19/24 6:42:00 EDT, Dosing Weight Jardiance 10 mg oral tablet: Dose : 10 mg = 1 tab(s), Oral, qAM, # 90 tab(s), 3 Refill(s), Pharmacy: [facility], 160, cm, 06/13/24 13:57:00 EST, [...] qDay, # 90 tab(s), 3 Refill(s), Pharmacy: [facility], 160, cm, 06/13/24 13:57:00 EST, Height, kg, 06/13/24 13:57:00 EST, Dosing Weight bumetanide 1 mg oral tablet: Dose : 1 mg = 1 tab(s), Oral, BID, # 180 tab(s), 3 Refill(s), Pharmacy: [facility], 160, cm, 06/13/24 13:57:00 EST, Height, kg, 06/13/24 13:57:00 EST, Dosing Weight potassium chloride 20 mEq oral tablet, extended release: Dose : 20 mEq = 1 tab(s), Oral, qDay, Takewith food, # 30 tab(s), 3 Refill(s), Pharmacy: [facility], 160, cm, 256:42:00 EDT, Height, kg, 06/19/24 [...] list: Medical Atrial fibrillation / SNOMED CT 43077977 / Confirmed Chronic renal failure, stage 3 (moderate) / SNOMED CT 635179683 / Confirmed HFrEF (heart failure with reduced ejection fraction) / SNOMED CT 9094376709 / Confirmed HTN (hypertension) / SNOMED CT [id number] / Confirmed Serum calcium elevated / SNOMED CT 549716782 / Confirmed Osteoporosis / SNOMED CT 316492576 / Confirmed, Active Problems (10) Atrial fibrillation Chronic renal failure, stage 3 (moderate) HFrEF (heart failure with reduced ejection fraction) HTN (hypertension) NM (myocardial infarction) Mitral regurgitation Osteoporosis Serum calcium elevated Shortness of breath Tobacco use Histories Past Medical History: Active HTN (hypertension) ([id number]) Resolved Sciatica (07809565): Resolved. Microalbuminuria (149882738): Resolved. DDD (degenerative disc disease), lumbar (96271458): Resolved. Neck pain on right side (134825043): Resolved. Hypercalcemia (812587953): Resolved. Proteinuria of undiagnosed cause (680056458): Resolved. Acute bronchitis due to infection (606526265): Resolved. Family History: Respiratory disease Father COPD Mother Procedure history: Colonoscopy and biopsy of colon ([id number]) on 11/02/2019 at 78 Years. Colonoscopy (156085143) on 04/11/2011 at 70 Years. Ovarian cyst ([id number]). Appendectomy (689307106). Cholecystectomy (97433927). Abdominal hysterectomy (620530059). Social History: Social & Psychosocial Habits Alcohol [...] Pressure Cuff Size Medium Nail Bed Color [place] Capillary Refill < 2 seconds Dorsalis Pedis [...] Elimination Devices External catheter All Extremity Description [place], Normal for ethnicity Temperature All Extremities Warm Neurological Language Able to speak clearly Neurological Symptoms Patient denies Characteristics of Communication Appropriate Level of Consciousness Alert Eye Opening Response Perry Spontaneously Best Motor Response Perry Obeys simple commands Best Verbal Response Perry Oriented SEDA Yes Left Pupil Reaction Brisk [...] Checked Cardiovascular Symptoms Edema Nail Bed Color [place] Capillary Refill < 2 seconds Heart Sounds [...] Temperature All Extremities Warm Mucous Membrane Color [place] Mucous Membrane Description Moist Sensory Perception Jose [...] Ignacia Obeys simple commands Best Verbal Response Perry Oriented Perry Coma Score 15 SEDA Yes Left Pupil [...] scale Cardiovascular Symptoms Edema Nail Bed Color [place] Capillary Refill < 2 seconds Heart Sounds [...] Makes facial grimaces, Symmetric resting/crying Skin Description [place], Normal for ethnicity, Dry Skin Temperature Warm Skin Integrity Pressure points intact Skin Turgor Non-Elastic Skin Symptoms Bruising All Extremity Description [place], Normal for ethnicity Temperature All Extremities Warm Mucous Membrane Color [place] Mucous Membrane Description Moist Antecubital Right 20 [...] scale Cardiovascular Symptoms Edema Nail Bed Color [place] Capillary Refill < 2 seconds Heart Sounds [...] Makes facial grimaces, Symmetric resting/crying Skin Description [place], Normal for ethnicity, Dry Skin Temperature Warm Skin Integrity Pressure points intact Skin Turgor Non-Elastic Skin Symptoms Bruising All Extremity Description [place], Normal for ethnicity Temperature All Extremities Warm Mucous Membrane Color [place] Mucous Membrane Description Moist Antecubital Right 20 [...] evident Teaching Method Explanation Preferred Spoken Language Citizen Of [place] Preferred Written Language Citizen [place] Disease Process General Education Signs/Symptoms to report, Signs/Symptoms of complications Equipment Education cafeteria monitor, Urinary catheter care, Oxygen, Walker Patient [...] scale Cardiovascular Symptoms Edema Nail Bed Color [place] Capillary Refill < 2 seconds Heart Sounds [...] Makes facial grimaces, Symmetric resting/crying Skin Description [place], Normal for ethnicity, Dry Skin Temperature Warm Skin Integrity Pressure points intact Skin Turgor Non-Elastic Skin Symptoms Bruising All Extremity Description [place], Normal for ethnicity Temperature All Extremities Warm Mucous Membrane Color [place] Mucous Membrane Description Moist Sensory Perception Jose [...] Opening Response Ignacia Spontaneously Best Motor Response Perry Obeys simple commands Best Verbal Response Ignacia Oriented Perry Coma Score 15 SEDA Yes Left Pupil [...] IX, X Swallowing, Gag Reflex Swallowing present Rmoero Screen Daily History of Fall in Last [...] (Not Done) CAM (more content not included)... [facility]jmbvrrq25[facility]-4030 Note Date of Service 06/29/24 Chief Complaint [...] heart disease/mitral regurgitation, history of type II NM, A-fib RVR, and chronic renal disease who [...] the consult. Harry Bailon MD Cardiac Electrophysiology [phone] Digitally Signed by HARRY BAILON MD on 06/29/2024 07:46 AM [facility]Nfrynmbp93-81-4587 Cardiology Consult note Date of Service June [...] disease/mitral regurgitation 5. History of type II NM A-fib RVR 6. Chronic renal disease. Echocardiogram [...] within 2 hrs), Blood, Once, Preferred Lab: [facility], Stop date 06/28/24 10:41:00 EDT 1. [...] by MARCELLE ROSAS on 06/28/2024 10:57 AM [facility]Zduehjbn06-71-4733 Cardiology Consult note Date of Service June [...] disease/mitral regurgitation 5. History of type II NM A-fib RVR 6. Chronic renal disease. Echocardiogram [...] within 2 hrs), Blood, Once, Preferred Lab: [facility], Stop date 06/28/24 10:41:00 EDT 1. [...] by MARCELLE ROSAS on 06/28/2024 10:57 AM [facility]Viqwmulg11-54-7464 Respiratory therapy Hospital Progress note Respiratory Therapy [...] Megan Jaimes RRT on 06/28/2024 07:52 PM [facility]Hmfvyawi89-64-9831 History and physical note Date of Service 06/28/2024 04:50:45 History of Present Illness 83-year-old female with history of recently diagnosed atrial fibrillation (status post cardioversion on June 19), recently diagnosed HFmrEF, hypertension, osteoporosis Being transferred from [place] for acute on chronic HFmrEF in the [...] diagnosed HFmrEF, hypertension, osteoporosis Being transferred from [place] for acute on chronic HFmrEF in the [...] MARCO HINDS DO on 06/28/2024 06:08 AM [facility]Ojogctei62-04-7363 Evaluation + Plan noteExtracted from: Title:History and Physical Author:SHASHANK HINDS DO Date:06/28/24 Recurrent paroxysmal atrial fibrillation Acute on chronic HFmrEF in the setting of atrial fibrillation and hypertensive emergency History of: 83-year-old female with history of recently diagnosed atrial fibrillation (status post cardioversion), recently diagnosed HFmrEF, hypertension, osteoporosis Being transferred from [place] for acute on chronic HFmrEF in the [...] Appointment Date:07/10/2024 03:00:00 PM Scheduled Provider:ASIM DIEHL Location:[facility] [place] Appointment Type:CV OV Appointment Date:07/19/2024 03:30:00 PM Scheduled Provider:EMILIANO LEAL DO Location:[facility] [place] Appointment Type:PC OV Appointment Date:08/07/2024 03:00:00 PM Scheduled Provider:ASIM DIEHL Location:[facility] [place] Appointment Type:CV OV Appointment Date:09/11/2024 01:00:00 PM Scheduled Provider:MARCELLE ROSAS Location:[facility] [place] Appointment Type:CV OV Diagnostic Tests Pending * AMIODARONE (CORDARONE), S/P 06/29/24 Future Scheduled Tests Radiology* MA Mammo Diagnostic Right w/ Brian 11/23/23 * US Breast Right Limited 11/23/23 [facility] 03-20-2025 Cardiology Consult note Date of Service [...] disease/mitral regurgitation 5. History of type II NM A-fib RVR 6. Chronic renal disease. Echocardiogram [...] within 2 hrs), Blood, Once, Preferred Lab: [facility], Stop date 06/28/24 10:41:00 EDT 1. [...] by MARCELLE ROSAS on 06/28/2024 10:57 AM [facility]Ihfahgwj08-70-2941 Note* Exam Date Time Procedure Performing Provider Status 06/28/24 4:57 AM Electrocardiogram - EKG - CV LISANDRO ZACARIAS MD; Auth (Verified) ECG Final Report ATRIAL FIBRILLATION Electronic Signature: LISANDRO LANGE MD 06/29/2024 16:45:39 [facility]Kzjqsvqi56-74-0841 History and physical note Date of Service 06/28/2024 04:50:45 History of Present Illness 83-year-old female with history of recently diagnosed atrial fibrillation (status post cardioversion on June 19), recently diagnosed HFmrEF, hypertension, osteoporosis Being transferred from [place] for acute on chronic HFmrEF in the [...] diagnosed HFmrEF, hypertension, osteoporosis Being transferred from [place] for acute on chronic HFmrEF in the [...] MARCO HINDS DO on 06/28/2024 06:08 AM [facility]Upyoxgnn91-83-4409 Hospital Discharge instructions Patient Education 06/19/2024 09:03:39 [...] before eating solid foods. General instructions Take afis-roh-dgfdxrt and prescription medicines only as told by [...] 07/18/2016 Document Revised: 06/26/2018 Document Reviewed: 07/18/2016 [employer] Patient Education 2020 Much[employer]. 06/19/2024 09:03:14 3- Cardioversion (01/2018)(CUSTOM) CARDIOVERSION Discharge [...] Document Reviewed: 03/29/2014 ExitCare Patient Information 2015 [employer]. This information is not intended to replace advicegiven to you by your health care provider. Make sure you discuss any questions you have with your health care provider. Follow Up Care 06/13/2024 14:21:55 With:ASIM DIEHL [address] [facility] [place] [address] [phone] When:07/23/2024 15:30:00 [facility] 03-11-2025 Summary of episode note Discharge Instructions Thank you for allowing [facility] to assist you with your healthcare needs. [...] supplement have been sent electronically to the [facility] in [place]. ------- In regards to your procedure: -No [...] OV 07/19/2024 03:30 PM EDT EMILIANO LEALlap [facility] [address] [place] [id number] Confirmed CV OV 07/23/2024 03:30 PM EDT ASIM DIEHL [facility] Confirmed Follow Up Appointments Follow Up with ASIM DIEHL When:07/23/2024 03:30 PM EDT Where:[address] [facility] [facility] [place] [address]- [phone] The Following Activity and Diet Have Been [...] Refills: 3 Take with food Pickup at [facility] Changed apixaban (Eliquis 5 mg oral tablet) 1 tab(s) by mouth Two (2) times a day Pickup at [facility] Unchanged amiodarone (amiodarone 200 mg oral tablet) [...] a day (in the morning) Pharmacy Information [facility]: [address], [place] [phone] Please take this list to your next [...] before eating solid foods. General instructions Take uufm-uwy-bqjdxfb and prescription medicines only as told by [...] 07/18/2016 Document Revised: 06/26/2018 Document Reviewed: 07/18/2016 [employer] Patient Education 2020 Much[employer]. CARDIOVERSION Discharge instructions ACTIVITY/SAFETY Please refrain from [...] Document Reviewed: 03/29/2014 ExitCare Patient Information 2015 [employer], [employer]. This information is not intended to replace advicegiven to you by your health care provider. Make sure you discuss any questions you have with your health care provider. Additional Information VACCINATE! IT SAVES LIVES! Members of the community who have not yet received the COVID-19 vaccine and would like to receive it can visit one of [facility] vaccine clinics. There are many vaccine clinic locations within the [facility]. For locations and available times, please visit [email or web address] It is important to note that some COVID mobile vaccine clinics are held outdoors and may be canceled in rainy or stormy conditions. To learn more about pediatric vaccinations (ages 5-11), we invite you to visit the [facility] webpage. https://www.[facility].org/pages/0316-Uouop-Qmxbwjnhlcl-Ojqylmwhbk-Vmccq-Bed stions.htmlTo learn more about the COVID-19 vaccine, we invite you to visit the CDC website for a list of frequently asked questions.https://www.cdc.gov/coronavirus/2019-ncov/vaccines/faq.html [employer] Patient Portal Access Instructions: Stay connected with your healthcare team and access your personal medical information anytime with the [employer] Patient Portal. Please follow the directions below to create your [employer] account: 1.Access the email account you provided upon registration to the hospital/physician office.2.Look for an invitation email from [facility].3.Open the email and access the invitation link: AcceptInvitation to [employer].4.Fill in the required tripp to create your account. To access your account, visit [email or web address][employer]. Click the blue button labeled Access Patient Portal and then log in with the username and password that you created in the steps above. You will be able to view your test results, lab results, a summary of your visits, upcoming appointments and more. There is also a convenient messaging option where you can send secure messages to your Advanced Marketing & Media Groupvider. In addition, you will have the ability to download any documents or summaries to your computer and/or send the information securely to a physician. Remember that your healthcare information is confidential, so carefully consider who you will allowto register on the [employer] Patient Portal for access to your information. You can also access the [employer] Patient Portal on the [employer] duke. Simply click on Patient Portal and then log into your account. If you would like to receive a full copy of your medical records, please contact the [facility] Medical Records Department by calling [phone], Tuesday through Tuesday between 8 a.m. and [...] Call your local pharmacy or go to http://Genwords.Chatosity/9L8As2i to find one close to you.3.Make use of household items: Use cat litter or old coffee grounds to dispose medications if other options arenot available. Mix your drugs with these household products, seal them in an airtight container andthrow it into the garbage. Call [facility]: [phone] to be sure your drugs can be [...] aware that I should contact my doctor. 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 ------- In regards to your procedure: -No [...] ASIM DIEHL When:07/23/2024 03:30 PM EDT [facility] [facility] [place] [address]- [phone] Follow Up Appointments No qualifying data available. [...] HARRY BAILON MD on 06/19/2024 02:27 PM [facility]Dksqfyxh25-55-2444 Procedure note Date of Service June 19, [...] response rate of 76 bpm. Once a EVP CHIEF EXPLORATION OFFICER administered an IV anesthetic agent and the patient was fully sedated, an anterior-posterior patch placement was utilized to deliver a synchronized biphasic waveform at 150 J with anterior direct pressure which resulted in the taoist of normal sinus rhythm at a heart rate of 68 bpm. The patient tolerated the procedure well and returned to cardiac same day in stable condition. Digitally Signed by ANASTASIYA JEFF on 06/19/2024 09:40 AM [facility]Vadfsitd97-60-8800 Anesthesiology Consult note Patient: JED SEWELL Age: [...] list: Medical Atrial fibrillation / SNOMED CT 55225644 / Confirmed Chronic renal failure, stage 3 (moderate) / SNOMED CT 284261393 / Confirmed HFrEF (heart failure with reduced ejection fraction) / SNOMED CT 4764013896 / Confirmed HTN (hypertension) / SNOMED CT [id number] / Confirmed Serum calcium elevated / SNOMED CT 082145467 / Confirmed Osteoporosis / SNOMED CT 698469273 / Confirmed, Active Problems (10) Atrial fibrillation Chronic renal failure, stage 3 (moderate) HFrEF (heart failure with reduced ejection fraction) HTN (hypertension) NM (myocardial infarction) Mitral regurgitation Osteoporosis Serum calcium elevated Shortness of breath Tobacco use Histories Past Medical History: Active HTN (hypertension) ([id number]) Resolved Sciatica (61797789): Resolved. Microalbuminuria (716495453): Resolved. DDD (degenerative disc disease), lumbar (42484398): Resolved. Neck pain on right side (896909532): Resolved. Hypercalcemia (655030034): Resolved. Proteinuria of undiagnosed cause (168900707): Resolved. Acute bronchitis due to infection (107399869): Resolved. Family History: Respiratory disease Father COPD Mother Procedure history: Colonoscopy and biopsy of colon ([id number]) on 11/02/2019 at 78 Years. Colonoscopy (260822097) on 04/11/2011 at 70 Years. Ovarian cyst ([id number]). Appendectomy (395458612). Cholecystectomy (38248275). Abdominal hysterectomy (703236003). Social History: Social & Psychosocial Habits Alcohol [...] Weight 61.3 kg Weight Lbs 134.9 lb [place] Body Weight 52.38 kg Admission Body Mass [...] Weight 61.3 kg Weight Lbs 134.9 lb [place] Body Weight 52.38 kg Admission Body Mass [...] Urinary Elimination Voiding, no difficulties Skin Description [place], Dry Skin Temperature Warm Skin Integrity Intact Mucous Membrane Color [place] Neurological Symptoms Patient denies Extremity Movement Equal [...] #1 We May Share PHI natalie elizabeth- [phone] Designated Person #1 Relationship Daughter Privacy Restrictions Requested None Status N/A Sensory Deficits None Sleep Apnea Snore No Sleep Apnea Tired Yes Sleep Apnea Obstruction No Sleep Apnea Pressure Yes Sleep Apnea BMI No Sleep Apnea Age Yes Sleep Apnea Neck No Sleep Apnea Gender No Sleep Apnea Score 3 Diagnosed With Sleep Apnea No Advanced Directives Yes Advance Directive Type [place] Durable Power of Boat Hand for [place], [place] Declaration (Living Will) Advance Directive Location [...] Method Explanation, Printed materials Preferred Spoken Language Citizen Of [place] Preferred Written Language Citizen Of [place] Teaching Evaluation No further teaching needed Safety [...] Completed (In Progress) . Assessment and Plan [place] Society of Anesthesiologists (ASA) physical status classification: [...] by JAREK CHRISTENSEN on 06/19/2024 09:44 AM [facility]Fokdcauh67-67-1726 Hospital Discharge instructions Patient Education 05/29/2024 11:01:38 [...] 12/20/2012 Document Revised: 07/20/2019 Document Reviewed: 02/23/2017 [employer] Patient Education 2020 Muchasa. 05/29/2024 11:01:05 Atrial Fibrillation, Eryz-jv-Wsfm Atrial Fibrillation Atrial fibrillation is a type [...] Follow these instructions at home: Medicines Take aiuz-xvg-izvchzh and prescription medicines only as told by [...] 01/04/2009 Document Revised: 06/01/2018 Document Reviewed: 05/19/2018 [employer] Patient Education 2020 Muchasa. Follow Up Care 05/23/2024 13:05:00 With:EMILIANO LEAL DO Address: [address] [place] [phone] [phone] When:3-5 days Comments:Please call to schedule your post-hospital follow-up appointment. With:ASIM IDEHL LEATHER PRODUCTION WORKER-ALTERATIONS TAILOR Address: [address] [place] [address] [address] [place] [address]- When:06/13/2024 14:00:00 Comments:This is your post-hospital follow-up appointment in [place] with cardiology. [facility] 02-18-2025 Note Discharge Instructions Thank you for allowing [facility] to assist you with your healthcare needs. The following is importantdischarge information regarding your hospital visit. Your Care Team [facility] Inpatient Medicine Your Diagnosis Asthenia Atrial fibrillation Chronic renal failure, stage 3 (moderate) HFrEF (heart failure with reduced ejection fraction) HTN (hypertension) What to do next Scheduled Follow-Up Appointments Appointment Type When With Where Contact Information StatusCV OV Hospital Follow Up 06/13/2024 02:00 PM EST ASIM DIEHL [facility] Confirmed PC OV 07/19/2024 03:30 PM EDT EMILIANO LEAL DO [facility] [address] [place] [phone] Confirmed Follow Up Appointments Follow Up with EMILIANO LEAL DO When:Within 3-5 days Where:[address] [place] [phone] Additional Information: Please call to schedule your post-hospital follow-up appointment. Follow Up with ASIM DIEHL When:06/13/2024 02:00 PM EST Where:[address] [place] [address]- Additional Information: This is your post-hospital follow-up appointment in [place] with cardiology. The Following Activity and Diet [...] a day Duration: 30 Days Pickup at [facility] today @ 9a Unchanged apixaban (Eliquis 2.5 mg oral tablet) 1 tab(s) by mouth Two (2) times a day Pickup at [id number] today @ 9a Unchanged denosumab (Prolia 60 mg/ mL subcutaneous solution) 1 Milliliter Subcutaneous Every 6 months Osteoporosis Unchanged dilTIAZem (Cardizem CD 120 mg/ 24 hours oral capsule, extended release) 1 cap by mouth Once a day Pickup at [facility] today @ 9a Unchanged empagliflozin (Jardiance 10 mg oral tablet) 1 tab(s) by mouth Once a day (in the morning) Pickup at [facility] today @ 9a Pharmacy Information [id number]: [address] [place], [place] [phone] [facility]: [address], [place] [phone] What How Much When Comments Stop Taking [...] (such as 'Afib' or atrial flutter with Ekpxn-Nznfyaxaj-Yyouu syndrome); a heart condition that causes you [...] may report side effects to FDA at 5-068-NZP-8818. What other drugs will affect diltiazem? Sometimes it is not safe to use certain medicines at the same time. Some drugs can affect your blood levels of other drugs you use, which may increase side effects or make the medicines less effective. Many drugs can affect diltiazem. This includes prescription and etkw-syy-qryqccc medicines, vitamins, and herbal products. Not all [...] to ensure that the information provided by [employer]. ('[employer]') is accurate, up-to-date, and complete, but no guarantee is made to that effect. Drug information contained herein may be time sensitive. [employer] information has been compiled for use by healthcare practitioners and consumers in the [place] and therefore [employer] does not warrant that uses outside of the [place] are appropriate, unless specifically indicated otherwise. [employer] drug information does not endorse drugs, diagnose patients or recommend therapy. [employer] drug information isan informational resource designed to [...] effective or appropriate for any given patient. [employer] does not assume any responsibility for any aspect of healthcare administered with the aid of information [employer] provides. The information contained herein is not intended to cover all possible uses, directions, precautions, warnings, drug interactions, allergic reactions, or adverse effects. If you have questions about the drugs you are taking, check with your doctor, nurse or pharmacist. Copyright 2018-7225 [employer]. Version: 19.02. Revision Date: 11/17/2023. Education Materials [...] 12/20/2012 Document Revised: 07/20/2019 Document Reviewed: 02/23/2017 [employer] Patient Education 2020 [employer]. Atrial Fibrillation Atrial fibrillation is a [...] Follow these instructions at home: Medicines Take parp-hsn-nyaiplh and prescription medicines only as told by [...] 01/04/2009 Document Revised: 06/01/2018 Document Reviewed: 05/19/2018 [employer] Patient Education 2020 Muchasa. Additional Information VACCINATE! IT SAVES LIVES! Members of the community who have not yet received the COVID-19 vaccine and would like to receive it can visit one of [facility] vaccine clinics. There are many vaccine clinic locations within the [facility]. For locations and available times, please visit [email or web address]/. It is important to note that some COVID mobile vaccine clinics are held outdoors and may be canceled in rainy or stormy conditions. To learn more about pediatric vaccinations (ages 5-11), we invite you to visit the [facility] webpage. https://www.[facility].org/pages/8026-Djqsg-Wnzruxjikot-Mtyqpymytx-Harbp-Nct stions.htmlTo learn more about the COVID-19 vaccine, we invite you to visit the CDC website for a list of frequently asked questions.https://www.cdc.gov/coronavirus/2019-ncov/vaccines/faq.html [employer] Patient Portal Access Instructions: Stay connected with your healthcare team and access your personal medical information anytime with the [employer] Patient Portal. Please follow the directions below to create your [employer] account: 1.Access the email account you provided upon registration to the hospital/physician office.2.Look for an invitation email from [facility].3.Open the email and access the invitation link: AcceptInvitation to [facility] GFRANQ.4.Fill in the required tripp to create your account. To access your account, visit [email or web address]. Click the blue button labeled Access Patient [...] who you will allowto register on the [facility] G[facility]ANQ Patient Portal for access to your information. You can also access the [facility] G[facility]AN[facility] Patient Portal on the [facility] Boedowhere duke. Simply click on Patient Portal and then log into your account. If you would like to receive a full copy of your medical records, please contact the [facility] Medical Records Department by calling [phone], Tuesday through Tuesday between 8 a.m. and [...] Call your local pharmacy or go to http://bit.Chatosity/4I0Dz6m to find one close to you.3.Make use of household items: Use cat litter or old coffee grounds to dispose medications if other options arenot available. Mix your drugs with these household products, seal them in an airtight container andthrow it into the garbage. Call [facility]: [phone] to be sure your drugs can be [...] Education Materials Managing Your Hypertension Atrial Fibrillation, Cldx-rs-Quih Medication Leaflets diltiazem (oral/injection) My discharge plan and instructions have been reviewed and explained to me and I,JED SEWELL understand my current condition and have read and understand these discharge instructions. I have received a written copy of the plan/instructions. If I have questions, I am aware that I should contact my doctor. 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 Signature: Date/Time: Relationship to Patient: Witness Name/Signature: Date/Time: [facility]02-18-2025 Pastoral care Progress note Pastoral Care Note Entered On: 05/29/2024 9:31 EST Performed On: 05/29/2024 9:29 EST by Nathaniel Arce Pastoral Care Type of Pastoral Visit : Follow up visit Spiritual Care Visit Initiated by : Directional Bore Operator Spiritual Care Reason for Visit : General [...] by Nathaniel Arce on 05/29/2024 09:29 AM [facility]02-12-2025 Note Date of Service 05/23/2024 Chief Complaint weakness History of Present Illness Patient is an 83-year-old female, who follows with Dr. Emiliano Leal with a past medical history significant for hypertension, atrial fibrillation, congestive heart failure and chronic kidney disease stage III, presented to [facility] transitional care unit last 05/18/2024 for ongoing rehab after a stay at [facility] CCU. Patient was admitted to the CCU [...] be medically optimized and transferred to [facility] TCU on 05/18. She was seen [...] may have to go home on oxygen. asphalt plant worker asked to schedule patient in with [...] Asthenia Consult placed to PT and OT. asphalt plant worker following for discharge planning needs. 2. [...] mg PO daily. 30-day event monitored by [facility] cardiology. Patient will need to follow-up [...] collaborating with physician, and documenting in chart. CPT#72506 Problem List/Past Medical History Ongoing Chronic renal [...] by DANIELLA HERNANDEZ on 05/23/2024 08:06 PM [facility]02-12-2025 Hospital Discharge instructions Patient Education 05/23/2024 12:11:10 [...] Follow these instructions at home: Medicines Take azzp-yyz-cnswvda and prescription medicines only as told by your health care provider. Do not stop taking your medicines or change the amount you take. If you are having problems or sideeffects from your medicines, talk to your health care provider. If you are having difficulty paying for your medicines, contact a social work manager or your clinic. There are many programs [...] 08/09/2017 Document Revised: 03/10/2018 Document Reviewed: 08/09/2017 [employer] Patient Education [employer]. Follow Up Care 05/20/2024 01:31:46 With:ASIM DIEHL Address: [address] [place] [address] [address] [facility] [place] [address] [phone] When:5 to 7 days Comments:follow-up in the office [facility] 02-12-2025 Evaluation + Plan noteExtracted from: Title:History and Physical Author:DANIELLA HERNANDEZ Date:05/23/24 1. Asthenia Consult placed to PT and OT. asphalt plant worker following for discharge planning needs. 2. [...] mg PO daily. 30-day event monitored by [facility] cardiology. Patient will need to follow-up [...] collaborating with physician, and documenting in chart. CPT#88893 Future Appointments Appointment Date:06/13/2024 02:00:00 PM Scheduled Provider:ASIM DIEHL Location:[facility] Appointment Type:CV OV Hospital Follow Up Appointment Date:07/19/2024 03:30:00 PM Scheduled Provider:EMILIANO LEAL DO Location:[facility] Appointment Type: OV Future Scheduled Tests Laboratory* Basic Metabolic Panel 05/17/24 * Calcium Level Ionized 05/17/24 * PTH, Intact 05/17/24 Radiology* MA Mammo Diagnostic Right w/ Brian 11/23/23 * US Breast Right Limited 11/23/23 [facility] 02-12-2025 Note Discharge Instructions Thank you for allowing [facility] to assist you with your healthcare needs. The following is importantdischarge information regarding your hospital visit. Your Care Team Daniella Hernandez CNP Your Diagnosis Atrial fibrillation CHF exacerbation Chronic renal failure, stage 3 (moderate) HTN (hypertension) Mitral regurgitation Type 2 NM (myocardial infarction) What to do next Instructions From Your Doctor You were admitted to [facility] transitional care [facility] for [...] are medically optimized for discharge to [facility] T[facility] today. Scheduled Follow-Up Appointments Appointment Type When With Where Contact Information StatusCV OV Hospital Follow Up 06/13/2024 02:45 PM EST KIMBERLY AGUILAR [facility] Confirmed PC OV 07/19/2024 03:30 PM EDT EMILIANO LEAL [facility] [address] [place] [address] Confirmed Follow Up Appointments Follow Up with ASIM DIEHL When:Within 5 to 7 days Where:[address] [place] [address]- [phone] Additional Information: follow-up in the office The [...] Follow these instructions at home: Medicines Take hbmq-dmj-lchpdbg and prescription medicines only as told by your health care provider. Do not stop taking your medicines or change the amount you take. If you are having problems or sideeffects from your medicines, talk to your health care provider. If you are having difficulty paying for your medicines, contact a social work manager or your clinic. There are many programs [...] 08/09/2017 Document Revised: 03/10/2018 Document Reviewed: 08/09/2017 [employer] Patient Education 2020 [employer]. Additional Information VACCINATE! IT SAVES LIVES! Members of the community who have not yet received the COVID-19 vaccine and would like to receive it can visit one of [facility] vaccine clinics. There are many vaccine clinic locations within the [facility]. For locations and available times, please visit [email or web address].gov/. It is important to note that some COVID mobile vaccine clinics are held outdoors and may be canceled in rainy or stormy conditions. To learn more about pediatric vaccinations (ages 5-11), we invite you to visit the [facility] webpage. https://www.[facility].org/pages/2967-Gltaa-Kuoxizdngfu-Ccetlxolcp-Udnhs-Yim stions.htmlTo learn more about the COVID-19 vaccine, we invite you to visit the CDC website for a list of frequently asked questions.https://www.cdc.gov/coronavirus/2019-ncov/vaccines/faq.html [employer] Patient Portal Access Instructions: Stay connected with your healthcare team and access your personal medical information anytime with the [employer] Patient Portal. Please follow the directions below to create your [employer] account: 1.Access the email account you provided upon registration to the hospital/physician office.2.Look for an invitation email from [facility].3.Open the email and access the invitation link: [facility].4.Fill in the required tripp to create your account. To access your account, visit [email or web address]. Click the blue button labeled Access Patient [...] who you will allowto register on the [facility] Patient Portal for access to your information. You can also access the [facility] Patient Portal on the [facility] Anywhere duke. Simply click on Patient Portal and then log into your account. If you would like to receive a full copy of your medical records, please contact the [facility] Medical Records Department by calling [phone], Tuesday through Tuesday between 8 a.m. and [...] Call your local pharmacy or go to http://bit.Chatosity/3P1Zg8a to find one close to you.3.Make use of household items: Use cat litter or old coffee grounds to dispose medications if other options arenot available. Mix your drugs with these household products, seal them in an airtight container andthrow it into the garbage. Call [facility]: [phone] to be sure your drugs can be [...] aware that I should contact my doctor. 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 Signature: Date/Time: Relationship to Patient: Witness Name/Signature: Date/Time: [facility]02-11-2025 Note Date of Service 05/22/2024 Chief Complaint [...] by DANIELLA HERNANDEZ on 05/22/2024 03:21 PM [facility]02-11-2025 Note Date of Service 05/22/24 Chief Complaint Afib and CHF Subjective This is a pleasant 83-year-old female patient who was admitted to the hospital from the swing unit for persistent atrial fibrillation with RVR. Patient was admitted to the [facility] from 05/13/2024to 05/18/2024 for atrial fibrillation with RVR, HFrEF, and hypertension. Initially she was transferred from [facility] to [facility] due to shortness of breath and bilateral [...] load andLasix p.o. She went to the [facility] swing unit. Yesterday patient went back into [facility] with RVR andacutely had shortness of breath and pulmonary edema. She was transferred to [facility] and initiated on BiPAP and given IV [...] and Cardizem 30 mg 4 times daily. [id number] score 5. *Will transition short acting Cardizem to Cardizem CD 120 once a day *Okay to discharge back to swing unit. *Follow-up in 1 week. 2. Type 2 NM (myocardial infarction) Troponin stable. Most likely due to atrial fibrillation with RVR and pulmonary edema. Will evaluatefor ischemic workup once patient is discharged home. 3. CHF exacerbation Patient appears euvolemic today. [place] [employer] class III. I think most [...] by ASIM DIEHL on 05/22/2024 08:56 AM [facility]02-10-2025 Note Date of Service 05/21/2024 Chief Complaint [...] by DANIELLA HERNANDEZ on 05/21/2024 03:51 PM [facility]02-09-2025 Note Date of Service 05/20/2024 Chief Complaint severe dyspnea History of Present Illness Patient is an 83-year-old female, who follows with Dr. Emiliano Leal with a past medical history significant for hypertension, chronic kidney disease stage 3, atrial fibrillation, and heart failure,presented to [facility] transitional care program on 05/18 for ongoing rehab. She was admitted to [facility] CCU from 05/13-05/18 for treatment of new [...] by DANIELLA HERNANDEZ on 05/20/2024 02:52 PM [facility]02-09-2025 Evaluation + Plan noteExtracted from: Title:History and [...] Date:07/19/2024 03:30:00 PM Scheduled Provider:EMILIANO LEAL DO Location:[facility] Appointment Type:PC OV Future Scheduled Tests Laboratory* Basic Metabolic Panel 05/17/24 * Calcium Level Ionized 05/17/24 * PTH, Intact 05/17/24 Radiology* MA Mammo Diagnostic Right w/ Brian 11/23/23 * US Breast Right Limited 11/23/23 [facility] 02-09-2025 Nurse Progress note 0003 Patient hit call light. When i entered the room she was sitting at the side of the bed saying ''I can't breathe''. I checked her oxygen saturation she was 81% on 2L. Oxygen increased to 4L and Inotified her primary care nurse Natalie ENCINAS. Ruddy SEQUEIRA RN Digitally Signed by CE Sequeira on 05/20/2024 12:43 AM [facility]02-09-2025 Note Date of Service 05/20/2024 Interval cross coverage note. CC: Acute respiratory failure concern for flash pulmonary edema. 73-year-old female with significant past medical history of hypertension, chronic kidney disease stage III, atrial fibrillation, heart failure with reduced ejection fraction (40 to 45%) that initially was admitted to [facility] CCU on 05/13/2024 with new onset atrial fibrillation with RVR, new onset heart failure, and NSTEMI. Patient was treated medically and underwent cardioversion x 3 with the last attempt successful while on IV amiodarone. Patient was medically optimized and discharged to [facility] on 05/18/2024. This evening I [...] discharged from TCU and admitted to [facility] inpatient with telemetry monitoring due to [...] Natalie Elizabeth was notified via telephone at [phone]. She was updated on the acute change in her mother's status and the plan to discharge her from TCU and admit her to inpatient status at [facility] for further medical management. Will attempt to manage patient at [facility], however if she continues to decompensate or does not appropriately respond to therapy she may require transfer to [facility] for additional resources not available at [facility]. Questions answered and daughter is amenable to the plan of care. Digitally Signed by RHINA FALCON on 05/20/2024 02:47 AM [facility]02-09-2025 Note* Exam Date Time Procedure Performing Provider Status 05/20/24 12:05 AM XR Chest 1 View DOMENIC MENEZES MD; Auth (Verified) [id number] ORIGINAL EXAMINATION: ONE XRAY VIEW OF THE [...] Sign Date: 05/20/2024 12:11:45 AM Ordering Provider: [facility]02-08-2025 Evaluation + Plan noteExtracted from: Title:History and Physical Author:DANIELLA HERNANDEZ LEATHER PRODUCTION WORKER-ALTERATIONS TAILOR Date:05/19/24 1. Asthenia Consult placed to PT and OT to evaluate and treat. asphalt plant worker consulted for discharge planning. 2. HTN [...] collaborating with physician, and documenting in chart. CPT#00285 Future Appointments Appointment Date:06/13/2024 02:45:00 PM Scheduled Provider:KIMBERLY AGUILAR Location:[facility] Appointment Type:CV OV Hospital Follow Up Appointment Date:07/19/2024 03:30:00 PM Scheduled Provider:EMILIANO LEAL DO Location:[facility] Appointment Type:PC OV Future Scheduled Tests Laboratory* Basic Metabolic Panel 05/17/24 * Calcium Level Ionized 05/17/24 * PTH, Intact 05/17/24 Radiology* MA Mammo Diagnostic Right w/ Brian 11/23/23 * US Breast Right Limited 11/23/23 [facility] 02-08-2025 Note Date of Service 05/19/2024 Chief Complaint weakness History of Present Illness Patient is an 83-year-old female, who follows with Dr. Emiliano Leal with a past medical history significant for hypertension, chronic kidney disease stage 3, atrial fibrillation and heart failure with reduced EF 40-45%, presented to [facility] emergency department with chief complaint of shortness of breath on 05/13/2024. Patient was transferred to [facility] CCU with new onset atrial [...] was medically optimized for discharge to [facility] last evening. Patient seen and [...] PT and OT to evaluate and treat. asphalt plant worker consulted for discharge planning. 2. HTN [...] collaborating with physician, and documenting in chart. CPT#93753 Problem List/Past Medical History Ongoing Chronic renal [...] by DANIELLA HERNANDEZ on 05/19/2024 12:28 PM [facility]02-07-2025 Hospital Discharge instructions Patient Education 05/18/2024 14:44:35 [...] medicine to help you relax (sedative). Take zgaw-zvd-wtguqei and prescription medicines only as told by [...] 01/16/2014 Document Revised: 03/10/2018 Document Reviewed: 10/01/2016 [employer] Patient Education 2020 [employer]. Follow Up Care 05/13/2024 14:21:07 With:[facility]- Room 237, nurse to nurse [phone]. Address:Unknown When:1-2 days With:EMIILANO LEAL Address: [address] [place] [address]- [phone] Business (1) When:1-2 days Comments:Please call the office to schedule a hospital follow up appointment With:ABHIJEET AGUILAR MD Address: [address] [facility] [place] [address]- [phone] When:06/13/2024 14:45:00 With:Readmission Risk Score Address:Unknown When: Unknown Comments:11 [facility] 02-07-2025 Note Discharge Instructions Thank you for allowing [facility] to assist you with your healthcare needs. The following is importantdischarge information regarding your hospital visit. Your Care Team EMILIANO LEAL DO Your Diagnosis Afib Atrial fibrillation What to do next Instructions From Your Doctor 1. Kindly follow up with your Primary Care Physician and Honing Machine Set Up Operator Tool as recommended. _ 2. Please take Amiodarone [...] reach out to our [facility] office at [phone] for general queries and [phone] for medication refills. 5. All your medical records and results are available to you through our [facility] Patient Portal. Tosign up, please visit [email or web address] Scheduled Follow-Up Appointments Appointment Type When With Where Contact Information StatusCV OV Hospital Follow Up 06/13/2024 02:45 PM EST [facility]LY [facility] 07/19/2024 03:30 PM EDT EMILIANO LEAL DO [address] [address] Confirmed Follow Up Appointments Follow Up with EMILIANO LEAL When:Within 1-2 days Where:[address] [place], [place] [address]- [phone] Business (1) Additional Information: Please call the office to schedule a hospital follow up appointment Follow Up with Readmission Risk Score Additional Information: 11 Follow Up with ABHIJEET AGUILAR MD When:06/13/2024 02:45 PM EST Where:[address] [place] [address]- [phone] The Following Activity and Diet Have Been [...] within 14 days after discharge, please call [facility] at [phone]. Post Acute Orders Transfer of Care Code [...] a day Take with food. Pickup at [facility] New amiodarone (amiodarone 200 mg oral tablet) 2 tab(s) by mouth Twice daily with meals Duration: 7 Days Pickup at [facility] New apixaban (Eliquis 5 mg oral tablet) 1 tab(s) by mouth Two (2) times a day Refills: 3 Pickup at [facility] New furosemide (Lasix 40 mg oral tablet) 1 tab(s) by mouth Once a day Pickup at [facility] New metoprolol (Toprol-XL 50 mg oral tablet, extended release) 1 tab(s) by mouth Twice daily with meals Pickup at [facility] Unchanged denosumab (Prolia 60 mg/ mL subcutaneous solution) 1 Milliliter Subcutaneous Every 6 months Osteoporosis Pharmacy Information [facility]: [address], [place] [id number] [phone] What How Much When Why Comments Stop [...] medicines at the same time (including some neba-kcm-ugsqcgp medicines). Tell your doctor about all medicines [...] may report side effects to FDA at 4-513-JJD-3127. What other drugs will affect apixaban? Sometimes it is not safe to use certain medications at the same time. Some drugs can affect your blood levels of other drugs you take, which may increase side effects or make the medications less effective. Many other drugs (including some ibbk-fky-mwmbflm medicines) can increase your risk of bleeding [...] may affect apixaban. This includes prescription and txrx-hhn-jrwfstb medicines, vitamins, and herbal products. Not all [...] to ensure that the information provided by [employer]. ('[employer]') is accurate, up-to-date, and complete, but no guarantee is made to that effect. Drug information contained herein may be time sensitive. [employer] information has been compiled for use by healthcare practitioners and consumers in the [place] and therefore [employer] does not warrant that uses outside of the [place] are appropriate, unless specifically indicated otherwise. [employer] drug information does not endorse drugs, diagnose patients or recommend therapy. [employer] drug information isan informational resource designed to [...] effective or appropriate for any given patient. [employer] does not assume any responsibility for any aspect of healthcare administered with the aid of information [employer] provides. The information contained herein is not intended to cover all possible uses, directions, precautions, warnings, drug interactions, allergic reactions, or adverse effects. If you have questions about the drugs you are taking, check with your doctor, nurse or pharmacist. Copyright 9382-2525 [employer]. Version: 6.01. Revision Date: 12/02/2020. amiodarone (oral) [...] products. Avoid taking an herbal supplement containing Kevil's wort. Amiodarone could make you sunburn more [...] may report side effects to FDA at 3-649-UFQ-7293. What other drugs will affect amiodarone? Sometimes [...] can affect amiodarone. This includes prescription and goox-fgk-ozcevch medicines, vitamins, and herbal products. Not all [...] to ensure that the information provided by [employer]. ('[employer]') is accurate, up-to-date, and complete, but no guarantee is made to that effect. Drug information contained herein may be time sensitive. [employer] information has been compiled for use by healthcare practitioners and consumers in the [place] and therefore [employer] does not warrant that uses outside of the [place] are appropriate, unless specifically indicated otherwise. [employer] drug information does not endorse drugs, diagnose patients or recommend therapy. [employer] drug information isan informational resource designed to [...] effective or appropriate for any given patient. [employer] does not assume any responsibility for any aspect of healthcare administered with the aid of information [employer] provides. The information contained herein is not intended to cover all possible uses, directions, precautions, warnings, drug interactions, allergic reactions, or adverse effects. If you have questions about the drugs you are taking, check with your doctor, nurse or pharmacist. Copyright 7908-9281 [employer]. Version: 7.01. Revision Date: 02/14/2018. Education Materials [...] medicine to help you relax (sedative). Take pxfl-neb-mvmalql and prescription medicines only as told by [...] 01/16/2014 Document Revised: 03/10/2018 Document Reviewed: 10/01/2016 [employer] Patient Education 2020 [employer] Additional Information VACCINATE! IT SAVES LIVES! Members of the community who have not yet received the COVID-19 vaccine and would like to receive it can visit one of [facility] vaccine clinics. There are many vaccine clinic locations within the [facility]. For locations and available times, please visit [email or web address].gov/. It is important to note that some COVID mobile vaccine clinics are held outdoors and may be canceled in rainy or stormy conditions. To learn more about pediatric vaccinations (ages 5-11), we invite you to visit the [facility] webpage. https://www.[facility].org/pages/8138-Wquqh-Ffyjnpzsfwh-Mgovxxelzc-Gnqtl-Udr stions.htmlTo learn more about the COVID-19 vaccine, we invite you to visit the CDC website for a list of frequently asked questions.https://www.cdc.gov/coronavirus/2019-ncov/vaccines/faq.html [facility] Patient Portal Access Instructions: Stay connected with your healthcare team and access your personal medical information anytime with the [facility] [employer] Patient Portal. Please follow the directions below to create your [facility] [employer] account: 1.Access the email account you provided upon registration to the hospital/physician office.2.Look for an invitation email from [facility].3.Open the email and access the invitation link: AcceptInvitation to [facility].4.Fill in the required tripp to create your account. To access your account, visit [email or web address]. Click the blue button labeled Access Patient Portal and then log in with the username and password that you created in the steps above. You will be able to view your test results, lab results, a summary of your visits, upcoming appointments and more. There is also a convenient messaging option where you can send secure messages to your Advanced Marketing & Media Groupvider. In addition, you will have the ability to download any documents or summaries to your computer and/or send the information securely to a physician. Remember that your healthcare information is confidential, so carefully consider who you will allowto register on the [facility] [employer] Patient Portal for access to your information. You can also access the [facility] Patient Portal on the [facility] Any[facility] duke. Simply click on Patient Portal and then log into your account. If you would like to receive a full copy of your medical records, please contact the [facility] Medical Records Department by calling [phone], Tuesday through Tuesday between 8 a.m. and [...] Call your local pharmacy or go to [email or web address] to find one close to you.3.Make use of household items: Use cat litter or old coffee grounds to dispose medications if other options arenot available. Mix your drugs with these household products, seal them in an airtight container andthrow it into the garbage. Call [facility]: [phone] to be sure your drugs can be [...] aware that I should contact my doctor. 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 Signature: Date/Time: Relationship to Patient: Witness Name/Signature: Date/Time: [facility]cru[facility]kc[facility]7478 Discharge summary Date of Service 05/18/2024 Discharge Diagnosis New onset atrial fibrillation with RVR [id number] 5 points Acute hypoxic respiratory failure secondary HFrEF Acute on Chronic HFrEF (EF 40-45%), likely tachyarrhythmia induced Hypertension Osteoporosis Hospital Course 83-year-old with medical history significant for hypertension, and osteoporosis who presents as a transfer from [facility] due to shortness of breath. Over the [...] up with your Primary Care Physician and Honing Machine Set Up Operator Tool as recommended. _ 2. Please take Amiodarone [...] reach out to our [facility] office at [phone] for general queries and [phone] for medication refills. 5. All your medical records and results are available to you through our [facility] Patient Portal. Tosign up, please visit [email or web address] Medications New Prescription amiodarone (amiodarone 200 mg [...] with EMILIANO LEAL When:Within 1-2 days Where:[address] [place] [address]- [phone] Business (1) Additional Information: Please call the office to schedule a hospital follow up appointment Follow Up with Readmission Risk Score Additional Information: 11 Follow Up with ABHIJEET AGUILAR MD When:06/13/2024 02:45 PM EST Where:[address] [facility] [place] [address]- [phone] Follow Up Appointments No qualifying data available. [...] Digitally Signed by VICTOR MANUEL PETERSON MD [facility] NorthIvexwexw85-65-4904 Cardiology Progress note Date of Service 05/15/2024 [...] Assessment/Plan New onset atrial fibrillation with RVR [id number] 5 points Acute hypoxic respiratory failure secondary to new onset CHF Hypertension Osteoporosis Patient presents as a transfer from [facility] for evaluation of dyspnea on exertion. Found [...] GEETA BEASLEY MD on 05/15/2024 02:41 PM [facility] NorthGfitjaop38-88-5368 Cardiology procedure note Date of Service May [...] heart rate of 88 bpm. Once a EVP CHIEF EXPLORATION OFFICER ministered an IV anesthetic agent the patient [...] by MARCELLE ROSAS on 05/18/2024 10:19 AM [facility] NorthBydxoszh54-96-1359 Anesthesiology Consult note Patient: JED SEWELL Age: [...] failure, stage 3 (moderate) / SNOMED CT 944097548 / Confirmed HTN (hypertension) / SNOMED CT [id number] / Confirmed Serum calcium elevated / SNOMED CT 484267860 / Confirmed Osteoporosis / SNOMED CT 593221476 / Confirmed, Active Problems (6) Chronic renal failure, stage 3 (moderate) HTN (hypertension) Osteoporosis Serum calcium elevated Shortness of breath Tobacco use Histories Past Medical History: Active HTN (hypertension) ([id number]) Resolved Sciatica (64778244): Resolved. Microalbuminuria (317244003): Resolved. DDD (degenerative disc disease), lumbar (23627405): Resolved. Neck pain on right side (784895829): Resolved. Hypercalcemia (990389783): Resolved. Proteinuria of undiagnosed cause (161260156): Resolved. Acute bronchitis due to infection (776474784): Resolved. Family History: Respiratory disease Father COPD Mother Procedure history: Colonoscopy and biopsy of colon ([id number]) on 11/02/2019 at 78 Years. Colonoscopy (216937554) on 04/11/2011 at 70 Years. Ovarian cyst ([id number]). Appendectomy (544709926). Cholecystectomy (01792822). Abdominal hysterectomy (445187519). Social History: Social & Psychosocial Habits Alcohol [...] Oral36.6 DegC (MAY 18 08:29) Heart Rate Pvqlme96 bpm (MAY 18 08:38) SBPH 154 mmHg [...] range of motion. Integumentary: Intact, Warm, Dry, [place]. Neurologic: Alert, Oriented. Review / Management Results [...] 16)H 53.5(MAY 15) . Assessment and Plan [place] Society of Anesthesiologists (ASA) physical status classification: [...] MARIA TODD DO on 05/18/2024 10:09 AM [facility] NorthJagmyuig34-06-2870 Cardiology Progress note Date of Service 05/16/2024 [...] Assessment/Plan New onset atrial fibrillation with RVR [id number] 5 points Acute hypoxic respiratory failure secondary to new onset CHF Hypertension Osteoporosis Patient presents as a transfer from [facility] for evaluation of dyspnea on exertion. Found [...] GEETA BEASLEY MD on 05/16/2024 04:44 PM [facility] NorthSvdezfgk39-70-4094 Cardiology Progress note Date of Service 05/17/2024 [...] Assessment/Plan New onset atrial fibrillation with RVR [id number] 5 points Acute hypoxic respiratory failure secondary to new onset CHF Hypertension Osteoporosis Patient presents as a transfer from [facility] for evaluation of dyspnea on exertion. Found [...] GEETA BEASLEY MD on 05/17/2024 02:49 PM [facility] NorthCzkycjvf78-92-1106 Cardiology Progress note Date of Service 05/17/2024 [...] Assessment/Plan New onset atrial fibrillation with RVR [id number] 5 points Acute hypoxic respiratory failure secondary to new onset CHF Hypertension Osteoporosis Patient presents as a transfer from [facility] for evaluation of dyspnea on exertion. Found [...] GEETA BEASLEY MD on 05/17/2024 02:49 PM [facility] [id number] Cardiology procedure note Date of Service May [...] heart rate of 91 bpm. Once a EVP CHIEF EXPLORATION OFFICER administered an IV anesthetic agent the patient [...] by MARCELLE ROSAS on 05/17/2024 11:02 AM [facility] NorthFkogctki77-72-4976 Anesthesiology Consult note Patient: JED SEWELL Age: [...] q6mo, # 1 mL, 0 Refill(s), Pharmacy: [email or web address], Osteoporosis, 158, cm, 02/23/24 10:19:00 EST, Height, kg,02/23/24 10:19:00 EST, Dosing Weight bisoprolol 5 mg oral tablet: Dose : 5 mg = 1 tab(s), Oral, qHS, # 30 tab(s), 0 Refill(s), Pharmacy:[facility], HTN (hypertension), 158, cm, 04/19/24 14:50:00 EST, Height, kg, 04/19/24 14:50:00 EST, Dosing Weight valsartan 320 mg oral tablet: Dose : 320 mg = 1 tab(s), Oral, qDay, Replaces previous prescription for valsartan 160 mg tablets., # 90 tab(s), 3 Refill(s), Pharmacy: [facility], 158, cm, 02/23/24 10:19:00 EST, Height, kg, [...] failure, stage 3 (moderate) / SNOMED CT 748895010 / [facility] ([facility]) [facility] [id number] / Confirmed Serum calcium elevated / SNOMED CT 719879549 / Confirmed Osteoporosis / SNOMED CT 269679013 / Confirmed, Active Problems (6) Chronic renal failure, stage 3 (moderate) HTN (hypertension) Osteoporosis Serum calcium elevated Shortness of breath Tobacco use Histories Past Medical History: Active HTN (hypertension) ([id number]) Resolved Sciatica (13504911): Resolved. Microalbuminuria (391150343): Resolved. DDD (degenerative disc disease), lumbar (61036556): Resolved. Neck pain on right side (118455131): Resolved. Hypercalcemia (379202162): Resolved. Proteinuria of undiagnosed cause (679202076): Resolved. Acute bronchitis due to infection (909830829): Resolved. Family History: Respiratory disease Father COPD Mother Procedure history: Colonoscopy and biopsy of colon (1823566978) on 11/02/2019 at 78 Years. Colonoscopy (648221336) on 04/11/2011 at 70 Years. Ovarian cyst ([id number]). Appendectomy (817472546). Cholecystectomy (20227597). Abdominal hysterectomy (693235015). Social History: Social & Psychosocial Habits Alcohol [...] Type 0-10 Pain scale Nail Bed Color [place] Capillary Refill < 2 seconds Heart Sounds [...] facial grimaces, Symmetric resting/crying All Extremity Description [place], Normal for ethnicity Skin Temperature Warm Temperature All Extremities Warm Skin Description [place], Normal for ethnicity, Dry Skin Integrity Pressure points intact Skin Turgor Non-Elastic Mucous Membrane Color [place] Mucous Membrane Description Moist Continuous IV Infusions [...] Type 0-10 Pain scale Nail Bed Color [place] Capillary Refill < 2 seconds Heart Sounds [...] facial grimaces, Symmetric resting/crying All Extremity Description [place], Normal for ethnicity Skin Temperature Warm Temperature All Extremities Warm Skin Description [place], Normal for ethnicity, Dry Skin Integrity Intact Skin Turgor Non-Elastic Mucous Membrane Color [place] Mucous Membrane Description Moist Continuous IV Infusions [...] Type 0-10 Pain scale Nail Bed Color [place] Capillary Refill < 2 seconds Dorsalis Pedis [...] facial grimaces, Symmetric resting/crying All Extremity Description [place], Normal for ethnicity Skin Temperature Warm Temperature All Extremities Warm Skin Description [place], Normal for ethnicity Skin Integrity Pressure points intact Skin Turgor Non-Elastic Mucous Membrane Color [place] Mucous Membrane Description Moist Sensory Perception Jose [...] Alert Aspiration Risk None Eye Opening Response Perry Spontaneously Best Motor Response Ignacia Obeys simple [...] evident Teaching Method Explanation Preferred Spoken Language Citizen [place] Preferred Written Language Citizen [place] Family/Caregiver Prefer Spoken Language Citizen [place] Family/Caregiver Prefer Written Language Citizen [place] Disease Process General Education Disease process, Signs/Symptoms [...] On and Limits Checked Nail Bed Color [place] Capillary Refill < 2 seconds Heart Sounds [...] Site Condition: No complications All Extremity Description [place], Normal for ethnicity Skin Temperature Warm Temperature All Extremities Warm Skin Description [place], Normal for ethnicity, Dry Skin Integrity Intact Skin Turgor Non-Elastic Mucous Membrane Color [place] Mucous Membrane Description Moist Neurological Language Able to speak clearly, Follows simple commands Neurological Symptoms Weakness Characteristics of Communication Appropriate Level of Consciousness Alert Eye Opening Response Ignacia Spontaneously Best Motor Response Ignacia Obeys simple commands Best Verbal Response Perry Oriented Ignacia Coma Score 15 SEDA Yes [...] On and Limits Checked Nail Bed Color [place] Capillary Refill < 2 seconds Heart Sounds [...] Movement Makes facial grimaces All Extremity Description [place], Normal for ethnicity Skin Temperature Warm Temperature All Extremities Warm Skin Description [place], Normal for ethnicity Skin Integrity Intact Skin Turgor Non-Elastic Mucous Membrane Color [place] Mucous Membrane Description Moist Antecubital Left 05/13/2024 [...] Ignacia Obeys simple commands Best Verbal Response Perry Oriented Perry Coma Score 15 SEDA Yes Left Pupil [...] On and Limits Checked Nail Bed Color [place] Capillary Refill < 2 seconds Heart Sounds [...] Movement Makes facial grimaces All Extremity Description [place], Normal for ethnicity Skin Temperature Warm Temperature All Extremities Warm Skin Description [place], Normal for ethnicity, Dry Skin Integrity Intact Skin Turgor Non-Elastic Mucous Membrane Color [place] Mucous Membran (more content not included)... [facility] NorthUqtplsyt52-13-3610 Cardiology Progress note Date of Service 05/16/2024 [...] Assessment/Plan New onset atrial fibrillation with RVR [id number] 5 points Acute hypoxic respiratory failure secondary to new onset CHF Hypertension Osteoporosis Patient presents as a transfer from [facility] for evaluation of dyspnea on exertion. Found [...] GEETA BEASLEY MD on 05/16/2024 04:44 PM [facility] NorthWjorjisx12-24-4357 Note* Exam Date Time Procedure Performing Provider Status 05/16/24 12:24 PM Echocardiogram, Adult - CV JUSTIN MATTHEWS MD; Auth (Verified) [facility] NorthWewfhqqi24-50-1424 Cardiology Progress note Date of Service 05/15/2024 [...] Assessment/Plan New onset atrial fibrillation with RVR [id number] 5 points Acute hypoxic respiratory failure secondary to new onset CHF Hypertension Osteoporosis Patient presents as a transfer from [facility] for evaluation of dyspnea on exertion. Found [...] GEETA BEASLEY MD on 05/15/2024 02:41 PM [facility] NorthMlrsjiag98-25-8902 Note* Exam Date Time Procedure Performing Provider Status 05/15/24 12:05 PM Electrocardiogram - EKG - CV CELE AGUILAR MD; Auth (Verified) ECG Final Report SINUS RHYTHM LEFT ATRIAL ENLARGEMENT LVH WITH SECONDARY REPOLARIZATION ABNORMALITY Electronic Signature: ABHIJEET AGUILAR MD 05/16/2024 22:24:32 [facility] NorthJobdnnez50-58-7900 Cardiology procedure note Date of Service May [...] heart rate approximately 110 bpm. Once a EVP CHIEF EXPLORATION OFFICER administered an IV anesthetic agent the patient [...] by MARCELLE ROSAS on 05/15/2024 11:26 AM [facility] NorthXuhrkosn07-74-5522 Note* Exam Date Time Procedure Performing Provider Status 05/15/24 10:49 AM Transesophageal Echocardiogram - CV LISA BOSS MD; Auth (Verified) [facility] NorthYbihpdld48-41-1199 Anesthesiology Consult note Patient: JED SEWELL Age: [...] q6mo, # 1 mL, 0 Refill(s), Pharmacy: [email or web address], Osteoporosis, 158, cm, 02/23/24 10:19:00 EST, Height, kg,02/23/24 10:19:00 EST, Dosing Weight bisoprolol 5 mg oral tablet: Dose : 5 mg = 1 tab(s), Oral, qHS, # 30 tab(s), 0 Refill(s), Pharmacy:[facility], HTN (hypertension), 158, cm, 04/19/24 14:50:00 EST, Height, kg, 04/19/24 14:50:00 EST, Dosing Weight valsartan 320 mg oral tablet: Dose : 320 mg = 1 tab(s), Oral, qDay, Replaces previous prescription for valsartan 160 mg tablets., # 90 tab(s), 3 Refill(s), Pharmacy: [facility], 158, cm, 02/23/24 10:19:00 EST, Height, kg, [...] failure, stage 3 (moderate) / SNOMED CT 574560458 / Confirmed HTN (hypertension) / [facility] [id number] / Confirmed Serum calcium elevated / SNOMED CT 090452925 / Confirmed Osteoporosis / SNOMED CT 127365183 / Confirmed, Active Problems (6) Chronic renal failure, stage 3 (moderate) HTN (hypertension) Osteoporosis Serum calcium elevated Shortness of breath Tobacco use Histories Past Medical History: Active HTN (hypertension) ([id number]) Resolved Sciatica (80461064): Resolved. Microalbuminuria (329126698): Resolved. DDD (degenerative disc disease), lumbar (17805438): Resolved. Neck pain on right side (098177170): Resolved. Hypercalcemia (715192623): Resolved. Proteinuria of undiagnosed cause (458679272): Resolved. Acute bronchitis due to infection (726799819): Resolved. Family History: Respiratory disease Father COPD Mother Procedure history: Colonoscopy and biopsy of colon (3099079711) on 11/02/2019 at 78 Years. Colonoscopy (783103326) on 04/11/2011 at 70 Years. Ovarian cyst ([id number]). Appendectomy (944520431). Cholecystectomy (75449887). Abdominal hysterectomy (479333527). Social History: Social & Psychosocial Habits Alcohol [...] evident Teaching Method Explanation Preferred Spoken Language Citizen [place] Preferred Written Language Citizen [place] Anticoag. Med Educated Heparin Reason/Purpose of Anticoagulant [...] Type 0-10 Pain scale Nail Bed Color [place] Capillary Refill < 2 seconds Heart Sounds [...] intact Skin Turgor Non-Elastic Mucous Membrane Color [place] Mucous Membrane Description Moist Sensory Perception Jose [...] mL 05/14/2024 23:07 EST Nail Bed Color [place] Capillary Refill < 2 seconds Dorsalis Pedis [...] facial grimaces, Symmetric resting/crying All Extremity Description [place], Normal for ethnicity Skin Temperature Warm Temperature All Extremities Warm Skin Description [place], Normal for ethnicity, Dry Skin Integrity Intact Skin Turgor Non-Elastic Mucous Membrane Color [place] Mucous Membrane Description Moist Neurological Language Able to speak clearly, Follows simple commands Neurological Symptoms Weakness Gait Steady Extremity Movement Equal Swallowing Difficulty None Characteristics of Communication Appropriate Characteristics of Speech Clear Facial Symmetry Symmetric Level of Consciousness Alert Aspiration Risk None Eye Opening Response Perry Spontaneously Best Motor Response Ignacia Obeys simple commands Best Verbal Response Perry Oriented Perry Coma Score 15 SEDA Yes Left Pupil [...] L/min 05/14/2024 22:17 EST APTT 56.4 seconds UT 05/14/2024 22:09 EST Sensory Perception Jose No [...] External catheter Skin Temperature Warm Skin Description [place], Normal for ethnicity, Dry Skin Integrity Intact Skin Turgor Non-Elastic Mucous Membrane Color [place] Mucous Membrane Description Moist Level of Consciousness [...] On and Limits Checked Nail Bed Color [place] Capillary Refill < 2 seconds Heart Sounds [...] facial grimaces, Symmetric resting/crying All Extremity Description [place], Normal for ethnicity Temperature All Extremities Warm [...] Alert Aspiration Risk None Eye Opening Response Perry Spontaneously Best Motor Response Perry Obeys simple commands Best Verbal Response Perry Oriented Ignacia Coma Score 15 SEDA Yes [...] Message FW: Transition of Care sent from [facility] 05/14/2024 15:00 EST External Female external catheter 05/13/2024 Urinary Catheter Output: 750 mL Oral Intake 480 mL 05/14/2024 14:23 EST APTT 47.2 seconds HI 05/14/2024 14:14 EST Post Rehab Outcome Not Done: See ICU flow (Not Done) Individuals Taught Patient Learning Readiness Willing to learn Barriers to Learning None evident Teaching Method Explanation Preferred Spoken Language Citizen [place] Preferred Written Language Citizen [place] Anticoag. Med Educated Heparin Reason/Purpose of Anticoagulant Rx or prevent blood clots Anticoagulation Medication Dose / Route / Schedule Demonstrates Self Injection N/A Anticoag Med(s) Teaching Evaluation Verbalizes/Nonverbally indicates understanding Cardiac Rehab - Phase I Not Done (Not Done) 05/14/2024 14:12 EST Transition of Care Note Transition of Care sent from [facility] 05/14/2024 14:11 EST Cardiology Progress Note Progress [...] On and Limits Checked Nail Bed Color [place] Capillary Refill < 2 seconds Heart Sounds [...] Movement Makes facial grimaces All Extremity Description [place], Normal for ethnicity Skin Temperature Warm Temperature All Extremities Warm Skin Description [place], Normal for ethnicity Skin Integrity Intact Skin Turgor Non-Elastic Mucous Membrane Color [place] Mucous Membrane Description Moist Sensory Perception Jose [...] Symmetric resting/crying Skin Temperature Warm Skin Description [place], Normal for ethnicity Skin Integrity Intact Skin Turgor Non-Elastic Mucous Membrane Color [place] Mucous Membrane Description Moist Sensory Perception Jose [...] x 4 B (more content not included)... [facility] NorthYwfnouwm85-77-3355 Respiratory therapy Hospital Progress note Respiratory Therapy [...] scheduled medications to Q4hRT PRN Tracey Delgado COMMUNITY COORDINATOR - 05/14/2024 21:44 EST Digitally Signed by Tracey Delgado RRT on 05/14/2024 09:44 PM [facility] NorthRyxvstey92-48-5876 History and physical note Date of Service May 13, 2024 History of Present Illness Patient is an 83-year-old with medical history significant for hypertension, and osteoporosis who presents as a transfer from [facility] due to shortness of breath. Over the [...] Assessment/Plan New onset atrial fibrillation with RVR [id number] 5 points Acute hypoxic respiratory failure secondary to new onset CHF Hypertension Osteoporosis Patient presents as a transfer from [facility] for evaluation of dyspnea on exertion. Found [...] DANNY REYES MD on 05/13/2024 10:08 PM [facility] NorthYxplnuca76-24-6512 History and physical note Date of Service May 13, 2024 History of Present Illness Patient is an 83-year-old with medical history significant for hypertension, and osteoporosis who presents as a transfer from [facility] due to shortness of breath. Over the [...] Assessment/Plan New onset atrial fibrillation with RVR [id number] 5 points Acute hypoxic respiratory failure secondary to new onset CHF Hypertension Osteoporosis Patient presents as a transfer from [facility] for evaluation of dyspnea on exertion. Found [...] DANNY REYES MD on 05/13/2024 10:08 PM [facility] NorthFwbhbqon33-52-5471 Note* Exam Date Time Procedure Performing Provider Status 05/13/24 5:02 PM Electrocardiogram - EKG - CV NAUN CHANDRA MD; Auth (Verified) ECG Final Report ATRIAL FIBRILLATION PROBABLE ANTERIOR INFARCT, AGE INDETERMINATE Electronic Signature: NAUN CHANDRA MD 05/14/2024 09:28:17 [facility] NorthDcqvpvtt43-82-7250 Evaluation + Plan noteExtracted from: Title:History and Physical Author:AYE REYES MD Date:05/13/24 New onset atrial fibrillatio n with RVR [id number] 5 points Acute hypoxic respiratory failure secondary to new onset CHF Hypertension Osteoporosis Patient presents as a transfer from [facility] for evaluation of dyspnea on exertion. Found [...] Date:07/19/2024 03:30:00 PM Scheduled Provider:EMILIANO LEAL DO Location:[facility] Appointment Type:PC OV Future Scheduled Tests Laboratory* Basic Metabolic Panel 05/17/24 * Calcium Level Ionized 05/17/24 * PTH, Intact 05/17/24 Radiology* MA Mammo Diagnostic Right w/ Brian 11/23/23 * US Breast Right Limited 11/23/23 [facility] 02-02-2025 Note* Exam Date Time Procedure Performing Provider Status 05/13/24 1:25 PM XR Chest 1 View ELLY WANG DO; Auth ( Verified) [id number] ORIGINAL EXAMINATION: ONE XRAY VIEW OF THE [...] 05/13/2024 1:39:17 PM Ordering Provider: TERRIE SIMS [facility]02-02-2025 Note* Exam Date Time Procedure Performing Provider Status 05/13/24 11:49 AM EKG [ED AOH] - CV TERRIE SIMS DO; Auth (Verified) ECG Final Report Atrial fibrillation Ventricular premature complex Repolarization abnormality, prob rate related Electronic Signature: TERRIE SIMS DO 05/13/2024 12:19:29 [facility]12-02-2024 Note ORIGINAL EXAMINATION: BONE DENSITOMETRY 03/12/2024 10:45 [...] Sign Date: 03/12/2024 12:06:57 PM Ordering Provider: [facility]08-14-2024 Evaluation + Plan note Future Scheduled Tests Radiology* MA Mammo Diagnostic Right w/ Brian 11/23/23 * US Breast Right Limited 11/23/23 [facility] 07-13-2022 Note ORIGINAL EXAMINATION: CT OF THE [...] Sign Date: 10/21/2021 7:44:20 PM Ordering Provider: [facility]07-13-2022 Note ORIGINAL EXAMINATION: CT OF THE [...] Sign Date: 10/21/2021 7:44:20 PM Ordering Provider: [facility]2021 Hospital Discharge instructions Patient Education 02/17/2021 18:25:12 [...] the ears or bruising around the eyes 6240-1727 [employer]. [address] [place] [address], [place] [address]. All rights reserved. This information is not [...] in vomit, stools (black or red color) 1531-7462 [employer]. [address] [place] [address], [place] [address]. All rights reserved. This information is not [...] Numbness in the groin or genital area 9441-5882 [employer]. [address] [place] [address]. All rights reserved. This information is not intended as a substitute for professional medical care. Always follow yourhealthcare professional's instructions. Follow Up Care 02/17/2021 17:39:03 With:EMILIANO LEAL DO Address: [id number] When:2-4 days [facility] Anesthesiology Consult note* CARLO GLASS DO: PERFORM, SIGN, VERIFY Event Display: Anesthesiology Consultation Authored Date: [id number] Patient: JED SEWELL Age: 83 years Sex: [...] Oral, qDay, #90 cap(s), 3 Refill(s), Pharmacy: [facility], 160, cm, 06/13/24 13:57:00 EST, Height, kg, 06/13/24 13:57:00 EST, Dosing Weight Eliquis 5 mg oral tablet: Dose : 5 mg = 1 tab(s), Oral, BID, # 180 tab(s), 3 Refill(s), Pharmacy: [facility], 160, cm, 06/19/24 6:42:00 EDT, Height, 61.3, kg, 06/19/24 6:42:00 EDT, Dosing Weight Jardiance 10 mg oral tablet: Dose : 10 mg = 1 tab(s), Oral, qAM, # 90 tab(s), 3 Refill(s), Pharmacy: [facility], 160, cm, 06/13/24 13:57:00 EST, [...] qDay, # 90 tab(s), 3 Refill(s), Pharmacy: [facility], 160, cm, 06/13/24 13:57:00 EST, Height, kg, 06/13/24 13:57:00 EST, Dosing Weight bumetanide 1 mg oral tablet: Dose : 1 mg = 1 tab(s), Oral, BID, # 180 tab(s), 3 Refill(s), Pharmacy: [facility], 160, cm, 06/13/24 13:57:00 EST, Height, kg, 06/13/24 13:57:00 EST, Dosing Weight potassium chloride 20 mEq oral tablet, extended release: Dose : 20 mEq = 1 tab(s), Oral, qDay, Takewith food, # 30 tab(s), 3 Refill(s), Pharmacy: [facility], 160, cm, 256:42:00 EDT, Height, kg, 06/19/24 [...] list: Medical Atrial fibrillation / SNOMED CT 02776885 / Confirmed Chronic renal failure, stage 3 (moderate) / SNOMED CT 427684413 / Confirmed HFrEF (heart failure with reduced ejection fraction) / SNOMED CT 9941672804 / Confirmed HTN (hypertension) / SNOMED CT [id number] / Confirmed Serum calcium elevated / SNOMED CT 837647110 / Confirmed Osteoporosis / SNOMED CT 771222154 / Confirmed, Active Problems (10) Atrial fibrillation Chronic renal failure, stage 3 (moderate) HFrEF (heart failure with reduced ejection fraction) HTN (hypertension) NM (myocardial infarction) Mitral regurgitation Osteoporosis Serum calcium elevated Shortness of breath Tobacco use Histories Past Medical History: Active HTN (hypertension) ([id number]) Resolved Sciatica (97010235): Resolved. Microalbuminuria (662496843): Resolved. DDD (degenerative disc disease), lumbar (13191657): Resolved. Neck pain on right side (655976840): Resolved. Hypercalcemia (124212050): Resolved. Proteinuria of undiagnosed cause (566642767): Resolved. Acute bronchitis due to infection (499336109): Resolved. Family History: Respiratory disease Father COPD Mother Procedure history: Colonoscopy and biopsy of colon ([id number]) on 11/02/2019 at 78 Years. Colonoscopy (659366648) on 04/11/2011 at 70 Years. Ovarian cyst ([id number]). Appendectomy (177342101). Cholecystectomy (97645526). Abdominal hysterectomy (670001998). Social History: Social & Psychosocial Habits Alcohol [...] Pressure Cuff Size Medium Nail Bed Color [place] Capillary Refill < 2 seconds Dorsalis Pedis [...] Elimination Devices External catheter All Extremity Description [place], Normal for ethnicity Temperature All Extremities Warm [...] Checked Cardiovascular Symptoms Edema Nail Bed Color [place] Capillary Refill < 2 seconds Heart Sounds [...] Temperature All Extremities Warm Mucous Membrane Color [place] Mucous Membrane Description Moist Sensory Perception Jose [...] Alert Aspiration Risk None Eye Opening Response Perry Spontaneously Best Motor Response Perry Obeys simple commands Best Verbal Response Perry Oriented Ignacia Coma Score 15 SEDA Yes [...] scale Cardiovascular Symptoms Edema Nail Bed Color [place] Capillary Refill < 2 seconds Heart Sounds [...] Makes facial grimaces, Symmetric resting/crying Skin Description [place], Normal for ethnicity, Dry Skin Temperature Warm Skin Integrity Pressure points intact Skin Turgor Non-Elastic Skin Symptoms Bruising All Extremity Description [place], Normal for ethnicity Temperature All Extremities Warm Mucous Membrane Color [place] Mucous Membrane Description Moist Antecubital Right 20 [...] scale Cardiovascular Symptoms Edema Nail Bed Color [place] Capillary Refill < 2 seconds Heart Sounds [...] Makes facial grimaces, Symmetric resting/crying Skin Description [place], Normal for ethnicity, Dry Skin Temperature Warm Skin Integrity Pressure points intact Skin Turgor Non-Elastic Skin Symptoms Bruising All Extremity Description [place], Normal for ethnicity Temperature All Extremities Warm Mucous Membrane Color [place] Mucous Membrane Description Moist Antecubital Right 20 [...] evident Teaching Method Explanation Preferred Spoken Language Citizen [place] Preferred Written Language Citizen [place] Disease Process General Education Signs/Symptoms to report, Signs/Symptoms of complications Equipment Education cafeteria monitor, Urinary catheter care, Oxygen, Walker Patient [...] scale Cardiovascular Symptoms Edema Nail Bed Color [place] Capillary Refill < 2 seconds Heart Sounds [...] Makes facial grimaces, Symmetric resting/crying Skin Description [place], Normal for ethnicity, Dry Skin Temperature Warm Skin Integrity Pressure points intact Skin Turgor Non-Elastic Skin Symptoms Bruising All Extremity Description [place], Normal for ethnicity Temperature All Extremities Warm Mucous Membrane Color [place] Mucous Membrane Description Moist Sensory Perception Jose [...] Alert Aspiration Risk None Eye Opening Response Perry Spontaneously Best Motor Response Perry Obeys simple commands Best Verbal Response Ignacia Oriented Perry Coma Score 15 SEDA Yes Left Pupil [...] Message FW: Transition of Care sent from [facility] 06/28/2024 14:31 EDT Transition of Care Note Transition of Care sent from [facility] 06/28/2024 14:27 EDT Heart Rate Monitored 96 [...] Anyone Threaten You With Harm Never (1) [facility] Anyone Scream Or Curse At You Never (1) [facility] Safety Total Score 4 Basic Disease [...] Person #1 We May Share ASHU elizabeth- [phone] Designated Person #1 Relationship Daughter Privacy Restrictions Requested None Height 167 cm Height in inches 65.7 inch(es) Admission Weight 63.9 kg Weight Lbs 140.6 lb [place] Body Weight 58.72 kg Type of Scale [...] None Advanced Directives Yes Advance Directive Type [facility] Power of Boat Hand for [facility] [place] Declaration (Living Will) Advance Directive Location [...] evident Teaching Method Explanation Preferred Spoken Language Citizen [place] Preferred Written Language Citizen [place] Teaching Evaluation Verbalizes/Nonverbally indicates understanding Safety Brochure [...] Symptoms Edema, Fatigue, Palpitations Nail Bed Color [place] Capillary Refill < 2 seconds Heart Sounds [...] complications Facial Movement Symmetric resting/crying Skin Description [place], Normal for ethnicity, Dry Skin Temperature Warm Skin Integrity Intact, Pressure points intact Skin Turgor Non-Elastic Skin Assessment Completed Admission All Extremity Description [place] Temperature All Extremities Warm Mucous Membrane Color [place] Mucous Membrane Description Moist Continuous IV Infusions [...] 06/28/2024 1:23 EDT Status N/A Romero Screen 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 History of Fall in Last 3 [...] Denies Advanced Directives Yes Advance Directive Type [place] Durable Power of Boat Hand for Health Care, [place] Declaration (Living Will) Advance Directive Location Family [...] CV Ordered (In Progress) 06/28/2024 1:20 EDT [facility] Note General Medical Problem *ED 06/28/2024 1:16 EDT Height 160 cm Admission Weight 138 kg [place] Body Weight 52.38 kg Temperature Oral 36.2 [...] Oxygen Flow Rate 4 L/min Skin Description [place], Normal for ethnicity Temperature All Extremities Warm Level of Consciousness Alert Eye Opening Response Ignacia Spontaneously Best Motor Response Ignacia Obeys simple commands Best Verbal Response Perry Oriented Ignacia Coma Score 15 Strength All [...] No Weight Loss No Preferred Spoken Language Citizen [place] Preferred Written Language Citizen [place] Tracking Group ED AO Tracking Group Tracking Acuity 2 ED Diabetic Patient No Mode of Transfer Ground ambulance [facility] Safety ID band on, Allergy Band on, Call device within reach, Bed in low position, Wheels locked, Safety level maintained Prev Test Positive/Diagnosis w/COVID-19 No Current Quarantine/Isolated any Illness No Any Contact with Sick Animals/Birds No Traveled Anywhere in Last 30 Days No ED Triage Adults ED Triage Adults . Assessment and Plan [place] [employer] Anesthesiologists (ASA) physical status classification: [...] CARLO GLASS DO on 06/29/2024 08:21 AM [facility] Evaluation + Plan note Future Appointments Appointment Date:04/06/2021 08:00:00 AM Scheduled Provider:EMILIANO LEAL DO Location:[facility] Appointment Type:PC OV Follow Up [facility] Evaluation + Plan note Future Appointments Appointment Date:10/05/2021 10:00:00 AM Scheduled Provider:EMILIANO LEAL DO Location:[facility] Appointment Type:PC OV [facility] Evaluation + Plan note Future Appointments Appointment Date:03/11/2022 09:00:00 AM Scheduled Provider:EMILIANO LEAL DO Location:[facility] Appointment Type:PC OV Future Scheduled Tests Laboratory* Creatinine 10/07/21 [facility] Evaluation + Plan note Future Appointments Appointment Date:09/09/2022 09:00:00 AM Scheduled Provider:EMILIANO LEAL DO Location:[facility] Appointment Type:PC OV Follow Up Future Scheduled Tests Laboratory* Creatinine 10/07/21 [facility] Evaluation + Plan note Future Appointments Appointment Date:06/18/2022 11:00:00 AM Scheduled Provider: Brock:TATIANA Appointment Type:US Renal Appointment Date:09/09/2022 09:00:00 AM Scheduled Provider:EMILIANO LEAL DO Location:[facility] Appointment Type:PC OV Follow Up Diagnostic Tests Pending * Vitamin D, 1,25-Dihydroxy 2/15/23 * CHARLES (serum) 05/26/22 * PTH, Related Peptide 05/26/22 Future Scheduled Tests Laboratory* Creatinine 10/07/21 Radiology* US Renal 06/18/22 [facility] evaluation + Plan note Future Appointments Appointment Date:07/19/2024 03:30:00 PM Scheduled Provider:EMILIANO LEAL DO Location:[facility] Appointment Type:PC OV Future Scheduled Tests Laboratory* Basic Metabolic Panel 05/17/24 * Calcium Level Ionized 05/17/24 * PTH, Intact 05/17/24 Radiology* MA Mammo Diagnostic Right w/ Brian 11/23/23 * US Breast Right Limited 11/23/23 [facility] evaluation + Plan note Future Appointments Appointment Date:07/19/2024 03:30:00 PM Scheduled Provider:EMILIANO LEAL DO Location:[facility] Appointment Type:PC OV Appointment Date:07/23/2024 03:30:00 PM Scheduled Provider:ASIM DIEHL Location:[facility] Appointment Type:CV OV Future Scheduled Tests Laboratory* Basic Metabolic Panel 05/17/24 * Calcium Level Ionized 05/17/24 * PTH, Intact 05/17/24 Radiology* MA Mammo Diagnostic Right w/ Brian 11/23/23 * US Breast Right Limited 11/23/23 [facility] evaluation + Plan note Future Appointments Appointment Date:08/07/2024 03:00:00 PM Scheduled Provider:ASIM DIEHL Location:[facility] Appointment Type:CV OV Appointment Date:08/08/2024 10:45:00 AM Scheduled Provider: Location:[facility] Lab Appointment Type:EP Ablation PF-Ensite Appointment Date:11/12/2024 03:00:00 PM Scheduled Provider:ANASTASIYA JEFF Location:[facility] Appointment Type:CV OV Future Scheduled Tests Radiology* MA Mammo Diagnostic Right w/ Brian 11/23/23 * US Breast Right Limited 11/23/23 [facility] Evaluation + Plan note Future Appointments Appointment Date:09/19/2024 03:00:00 PM Scheduled Provider:ASIM DIEHL Location:[facility] Appointment Type:CV OV Appointment Date:11/12/2024 03:00:00 PM Scheduled Provider:ANASTASIYA JEFF Location:[facility] Appointment Type:CV OV Future Scheduled Tests Radiology* MA Mammo Diagnostic Right w/ Brian 11/23/23 * US Breast Right Limited 11/23/23 [facility] Evaluation + Plan note Future Appointments Appointment Date:09/19/2024 03:00:00 PM Scheduled Provider:ASIM DIEHL Location:[facility] Appointment Type:CV OV Appointment Date:10/19/2024 02:15:00 PM Scheduled Provider:DONATO NAVARRETE DO Location:[facility] Appointment Type:PC OV Appointment Date:12/20/2024 03:00:00 PM Scheduled Provider:ANASTASIYA JEFF Location:[facility] Appointment Type:CV OV Future Scheduled Tests Laboratory* Basic Metabolic Panel 08/22/24 * Magnesium Level 09/12/24 Radiology* MA Mammo Diagnostic Right w/ Brian 11/23/23 * US Breast Right Limited 11/23/23 [facility] Evaluation + Plan note Future Appointments Appointment Date:01/08/2025 01:00:00 PM Scheduled Provider: Location:RAD Appointment Type:Echo - Echocardiogram Adult Appointment Date:01/16/2025 03:30:00 PM Scheduled Provider:DONATO NAVARRETE DO Location:[facility] Appointment Type:PC OV Appointment Date:01/31/2025 10:30:00 AM Scheduled Provider:ASIM DIEHL Location:[facility] Appointment Type:CV OV Appointment Date:03/21/2025 03:00:00 PM Scheduled Provider:ASIM DIEHL Location:[facility] Appointment Type:CV OV Appointment Date:12/19/2025 03:30:00 PM Scheduled Provider:MEREDITH BAILON Location:[facility] Appointment Type:CV OV Future Scheduled Tests Laboratory* Basic Metabolic Panel 11/05/24 * Basic Metabolic Panel 08/22/24 * Magnesium Level 11/05/24 [facility] evaluation + Plan note Future Appointments Appointment Date:01/16/2025 03:30:00 PM Scheduled Provider:DONATO NAVARRETE DO Location:[facility] Appointment Type:PC OV Appointment Date:01/31/2025 10:30:00 AM Scheduled Provider:ASIM DIEHL Location:[facility] Appointment Type:CV OV Appointment Date:03/21/2025 03:00:00 PM Scheduled Provider:ASIM DIEHL Location:[facility] Appointment Type:CV OV Appointment Date:12/19/2025 03:30:00 PM Scheduled Provider:MEREDITH BAILON Location:[facility] Appointment Type:CV OV Future Scheduled Tests Laboratory* Basic Metabolic Panel 11/05/24 * Basic Metabolic Panel 08/22/24 * Magnesium Level 11/05/24 [facility] Evaluation + Plan note Future Appointments Appointment Date:01/16/2025 03:30:00 PM Scheduled Provider:DONATO NAVARRETE DO Location:[facility] Appointment Type:PC OV Appointment Date:01/31/2025 10:30:00 AM Scheduled Provider:ASIM DIEHL Location:[facility] Appointment Type:CV OV Appointment Date:03/21/2025 03:00:00 PM Scheduled Provider:ASIM DIEHL Location:[facility] Appointment Type:CV OV Appointment Date:12/19/2025 03:30:00 PM Scheduled Provider:MEREDITH BAILON Location:[facility] Appointment Type:CV OV Future Scheduled Tests Laboratory* Basic Metabolic Panel 08/22/24 [facility] evaluation + Plan note Future Appointments Appointment Date:02/19/2025 08:30:00 AM Scheduled Provider: Location:Heart Lab Appointment Type:CV Procedure - Heart Lab/Hybrid OR Appointment Date:03/21/2025 03:00:00 PM Scheduled Provider:ASIM DIEHL Location:[facility] Appointment Type:CV OV Appointment Date:12/19/2025 03:30:00 PM Scheduled Provider:MEREDITH BAILON Location:[facility] Appointment Type:CV OV Future Scheduled Tests Laboratory* Basic Metabolic Panel 08/22/24 * Basic Metabolic Panel 02/06/25 * Complete Blood Count 02/06/25 * Prothrombin Time - Panel 02/06/25 [facility] Evaluation + Plan note Future Appointments Appointment Date:02/19/2025 08:00:00 AM Scheduled Provider: Location:Heart Lab Appointment Type:CV Procedure - Heart Lab/Hybrid OR Appointment Date:03/21/2025 03:00:00 PM Scheduled Provider:ASIM DIEHL Location:[facility] Appointment Type:CV OV Appointment Date:12/19/2025 03:30:00 PM Scheduled Provider:MEREDITH BAILON Location:[facility] Appointment Type:CV OV Future Scheduled Tests Laboratory* Basic Metabolic Panel 08/22/24 [facility] Evaluation + Plan note Future Appointments Appointment Date:03/21/2025 03:00:00 PM Scheduled Provider:ASIM DIEHL Location:[facility] Appointment Type:CV OV Appointment Date:12/19/2025 03:30:00 PM Scheduled Provider:MEREDITH BAILON Location:[facility] Appointment Type:CV OV Future Scheduled Tests Laboratory* Basic Metabolic Panel 08/22/24 [facility] Hospital course Narrative No data available for this section [facility] Hospital Discharge instructions No data available for this section [facility] Progress note No data available for this section [facility] Summary Purpose Family History No Family History [...] Clerk Daniella PT Position: P3 Scheduling - Orthopedic Nurse Advanced Member Role: Other Name: EMILIANO LEAL DO Position: P4 Physician - Primary Care Med Service: Active Provider Member Role: Primary Care Physician Address: Address: [address] [place] [address] Care Team Related Persons Name: NATALIE ELIZABETH Name: SANDRA SEWELL Address: Home [address] [place] [phone] Care Team Personnel Name: Jere Gupta Clerk Daniella PT Position: P3 Scheduling - Orthopedic Nurse Advanced Member Role: Other Name: EMILIANO LEAL DO Position: P4 Physician - Primary Care Member Role: Primary Care Physician Address: Address: [address] [place] [address] Care Team Related Persons Name: NATALIE ELIZABETH Name: SANDRA SEWELL Address: Home [address] [place], [place] [id number] [place] Care Team Personnel Name: Jere Gupta Clerk Daniella PT Position: P3 Scheduling - Orthopedic Nurse Advanced Member Role: Other Name: EMILIANO LEAL DO Position: P4 Physician - Primary Care Member Role: Primary Care Physician Address: Address: [address] [place] [address] Care Team Related Persons Name: NATALIE ELIZABETH Name: SANDRA SEWELL Address: Home [address] [place], [place] [id number] [place] Care Team Personnel Name: Jere Gupta Clerk Daniella PT Position: P3 Scheduling - Orthopedic Nurse Advanced Member Role: Other Name: EMILIANO LEAL DO Position: P4 Physician - Primary Care Member Role: Primary Care Physician Address: Address: [facility] [address] Care Team Related Persons Name: NATALIE ELIZABETH Patient Care team informatio n (unrecognized section and content) Care Team Personnel Name: Candy, Institutional Nutrition Consultant Daniella PT Position: P3 Scheduling - Orthopedic Nurse Advanced Member Role: Other Name: EMILIANO LEAL DO Position: P4 Physician - Primary Care Member Role: Primary Care Physician Address: Address: [address] [place] [address] Care Team Related Persons Name: NATALIE ELIZABETH Care Team Personnel Name: Candy, Institutional Nutrition Consultant Daniella PT Position: P3 Scheduling - Orthopedic Nurse Advanced Member Role: Other Name: EMILIANO LEAL DO Position: P4 Physician - Primary Care Member Role: Primary Care Physician Address: Address: [address] [place] [address] Care Team Related Persons Name: NATALIE ELIZABETH Care Team Personnel Name: Candy, Institutional Nutrition Consultant Daniella PT Position: P3 Scheduling - Orthopedic Nurse Advanced Member Role: Other Name: EMILIANO LEAL DO Position: P4 Physician - Primary Care Member Role: Primary Care Physician Address: Address: [address] [place] [address] Care Team Related Persons Name: NATALIE ELIZABETH Care Team Personnel Name: Candy, Institutional Nutrition Consultant Daniella PT Position: P3 Scheduling - Orthopedic Nurse Advanced Member Role: Other Name: EMILIANO LEAL DO Position: P4 Physician - Primary Care Member Role: Primary Care Physician Address: [address] [place] [address] Telecom: Care Team Related Persons Name: NATALIE ELIZABETH Care Team Personnel Name: Candy Institutional Nutrition Consultant Daniella PT Position: P3 Scheduling - Orthopedic Nurse Advanced Member Role: Other Name: EMILIANO LEAL DO Position: P4 Physician - Primary Care Member Role: Primary Care Physician Address: [address] [place] [address] Telecom: Care Team Related Persons Name: NATALIE ELIZABETH Care Team Personnel Name: Candy Institutional Nutrition Consultant Daniella PT Position: P3 Scheduling - Orthopedic Nurse Advanced Member Role: Other Name: EMILIANO LEAL DO Position: P4 Physician - Primary Care Member Role: Primary Care Physician Address: [address] [id number] Telecom: Care Team Related Persons Name: NATALIE ELIZABETH Care Team Personnel Name: Candy Institutional Nutrition Consultant Daniella PT Position: P3 Scheduling - Orthopedic Nurse Advanced Member Role: Other Name: EMILIANO LEAL DO Position: P4 Physician - Primary Care Member Role: Primary Care Physician Address: [address] Telecom: Care Team Related Persons Name: NATALIE ELIZABETH Care Team Personnel Name: Candy, Institutional Nutrition Consultant Daniella PT Position: P3 Scheduling - Orthopedic Nurse Advanced Member Role: Other Name: EMILIANO LEAL DO Position: P4 Physician - Primary Care Member Role: Primary Care Physician Address: [address] Telecom: Care Team Related Persons Name: NATALIE ELIZABETH Care Team Personnel Name: Candy Institutional Nutrition Consultant Daniella PT Position: P3 Scheduling - Orthopedic Nurse Advanced Member Role: Other Name: EMILIANO LEAL DO Position: P4 Physician - Primary Care Member Role: Primary Care Physician Address: [address] Telecom: Care Team Related Persons Name: NATALIE ELIZABETH Care Team Personnel Name: Candy Institutional Nutrition Consultant Daniella PT Position: P3 Scheduling - Orthopedic Nurse Advanced Member Role: Other Name: EMILIANO LEAL DO Position: P4 Physician - Primary Care Member Role: Primary Care Physician Address: [address] [id number] Telecom: Care Team Related Persons Name: MAENATALIE ARRIAZA Care Team Personnel Name: Candy, Institutional Nutrition Consultant Daniella PT Position: P3 Scheduling - Orthopedic Nurse Advanced Member Role: Other Name: EMILIANO LEAL DO Position: P4 Physician - Primary Care Member Role: Primary Care Physician Address: [address] [place] [address] Telecom: Care Team Related Persons Name: MAREK NATALIE Care Team Personnel Name: Candy, Institutional Nutrition Consultant Daniella PT Position: P3 Scheduling - Orthopedic Nurse Advanced Member Role: Other Name: EMILIANO LEAL DO Position: P4 Physician - Primary Care Member Role: Primary Care Physician Address: [address] [place] [address] Telecom: Care Team Related Persons Name: MAREK NATALIE Name: NATALIE ELIZABETH Name: NATALIE ELIZABETH Care Team Personnel Name: Candy, Institutional Nutrition Consultant Daniella PT Position: P3 Scheduling - Orthopedic Nurse Advanced Member Role: Other Name: EMILIANO LEAL DO Position: P4 Physician - Primary Care Member Role: Primary Care Physician Address: [address] [place] [address] Telecom: Care Team Related Persons Name: MAENATALIE ARRIAZA Name: ELEN ELIZABETHA Name: ELEN ELIZABETHA Care Team Personnel Name: Candy, Institutional Nutrition Consultant Daniella PT Position: P3 Scheduling - Orthopedic Nurse Advanced Member Role: Other Name: EMILIANO LEAL DO Position: P4 Physician - Primary Care Member Role: Primary Care Physician Address: [address] [place] [address] Telecom: Care Team Related Persons Name: ELEN ELIZABETHA Name: ELEN ELIZABETHA Name: MAREK NATALIE Care Team Personnel Name: Candy, Institutional Nutrition Consultant Daniella PT Position: P3 Scheduling - Orthopedic Nurse Advanced Member Role: Other Name: DONATO NAVARRETE DO Position: P4 Physician - Primary Care Member Role: Primary Care Physician Address: [address] Telecom: Care Team Related Persons Name: NATALIE ELIZABETH Name: NATALIE ELIZABETH Name: NATALIE ELIZABETH Care Team Personnel Name: Candy, Institutional Nutrition Consultant Daniella PT Position: P3 Scheduling - Orthopedic Nurse Advanced Member Role: Other Name: DONATO NAVARRETE DO Position: P4 Physician - Primary Care Member Role: Primary Care Physician Address: [address] [place] [address] Telecom: Care Team Related Persons Name: NATALIE ELIZABETH Name: NATALIE ELIZABETH Name: MAECOCONATALIE MICHELLE Care Team Personnel Name: Candy, Institutional Nutrition Consultant Daniella PT Position: P3 Scheduling - Orthopedic Nurse Advanced Member Role: Other Name: DONATO NAVARRETE DO Position: P4 Physician - Primary Care Member Role: Primary Care Physician Address: [address] [place] [address] Telecom: Care Team Related Persons Name: NATALIE ELIZABETH Name: NATALIE ELIZABETH Name: NATALIE ELIZABETH Care Team Personnel Name: Candy, Institutional Nutrition Consultant Daniella PT Position: P3 Scheduling - Orthopedic Nurse Advanced Member Role: Other Name: DONATO NAVARRETE DO Position: P4 Physician - Primary Care Member Role: Primary Care Physician Address: [address] [place] [address] Telecom: Care Team Related Persons Name: NATALIE ELIZABETH Name: NATALIE ELIZABETH Name: NATALIE ELIZABETH Care Team Personnel Name: Candy, Institutional Nutrition Consultant Daniella PT Position: P3 Scheduling - Orthopedic Nurse Advanced Member Role: Other Name: DONATO NAVARRETE DO Position: P4 Physician - Primary Care Member Role: Primary Care Physician Address: [address] Telecom: Care Team Related Persons Name: ABELNATALIE MICHELLE Name: ELEN ELIZABETHA Name: NATALIE ELIZABETH Care Team Personnel Name: Candy Institutional Nutrition Consultant Daniella PT Position: P3 Scheduling - Orthopedic Nurse Advanced Member Role: Other Name: DONATO NAVARRETE DO Position: P4 Physician - Primary Care Member Role: Primary Care Physician Address: [address] [place] [address] Telecom: Care Team Related Persons Name: NATALIE ELIZABETH Name: NATALIE ELIZABETH Name: NATALIE ELIZABETH Care Team Personnel Name: Jere Gupta Clerk Daniella PT Position: P3 Scheduling - Orthopedic Nurse Advanced Member Role: Other Name: DONATO NAVARRETE DO Position: P4 Physician - Primary Care Member Role: Primary Care Physician Address: [address] [place] [address] Telecom: Care Team Related Persons Name: NATALIE ELIZABETH Name: NATALIE ELIZABETH Name: NATALIE ELIZABETH INFORMATION SOURCE (unrecogn ized section and content) DATE CREATED AUTHOR 11/15/2023 [facility] ([place]) DATE CREATED AUTHOR AUTHOR'S ORGANIZ ATION 02/17/2025 [facility] DATE CREATED AUTHOR AUTHOR'S ORGANIZ ATION 02/20/2025 [facility] FOR RECORDS PERTAINING TO PATIENTS WHO [...] BE BASED ON THE PRIMARY CLINICAL RECORDS. [facility]. provides no warranty or guarantee of the accuracy or completeness of information in this document.
== END | disposition home or self-care (01) ==
PROVIDERS: Referring Provider Family Medicine Geriatric Medicine; Visit Provider Family Medicine Geriatric Medicine
DX: R91.1 Solitary pulmonary nodule (principal)
CPT/HCPCS: 71250

== ENCOUNTER 2025-04-05 08:00 | Day surgery (SDC) | payer MEDICARE, SELFPAY ==
[2025-04-05] VITALS (8 sets, daily range): BP systolic 132–173; BP diastolic 66–75; PULSE 75–84; RESP 16–22; TEMP 36.1–37.5; O2SAT 95–98; BMI 30.1
--- NOTE | 2025-04-05 08:01 | HP_ITS ---
HPI Narrative HPI Narrative: JED SEWELL, is a 84-year-old female admitted from [facility] after presenting following a mechanical fall that resulted in a left bascervical proximal femur fracture [1]. She was transferred to the current facility after orthopedic surgery consultation at the outside hospital. She underwent a left direct anterior hip hemiarthroplasty on March 25, 2025. Her medical history is significant for paroxysmal atrial fibrillation, for which she is on apixaban. The apixaban was held starting March 22, 2025, and resumed on March 26, 2025. i was consulted on March 26, 2025, regarding the management of the patient's anemia.? * Labs:?Hemoglobin (Hgb) prior to surgery was 11.9 g/dL. Post-operatively, Hgb has consistently been around 9 g/dL. Stool occult blood test was positive. * Imaging:?Admission imaging (CT L hip at OSH) demonstrated a bascervical fracture L proximal femur, with mild foreshortening and angulation PFSH Medical History CKD stage 3a, GFR 45-59 ml/min Former tobacco use COPD (chronic obstructive pulmonary disease) PAF (paroxysmal atrial fibrillation) HLD (hyperlipidemia) HTN (hypertension) (HFpEF) heart failure with preserved ejection fraction Home Medications ?Medication ?Instructions ?Recorded ?Last Taken ?Type apixaban 5 mg tablet (Eliquis) 5 mg PO BID blood thinner 03/24/25 Unkno wn History atorvastatin 40 mg tablet (Lipitor) 40 mg PO QHS cholesterol 03/24/25 Unknow n History budesonide 0.25 mg/2 mL suspension 0.25 mg inhalation BID COPD 03/24/25 Unk nown History for nebulization (Pulmicort) bumetanide 1 mg tablet 1 mg PO BID fluid pill 03/24/25 Unknown History empagliflozin 10 mg tablet 10 mg PO DAILY heart failure 03/24/25 Un known History (Jardiance) valsartan 320 mg tablet (Diovan) 320 mg PO DAILY Heart failure 03/24/25 U nknown History acetaminophen 500 mg tablet 1,000 mg (2 x 500 mg) PO Q8 pain 5 03/27/25 Rx #0 tabs aluminum-mag hydroxide-simethicone 30 ml PO Q6H PRN PRN Gastric 03/27/25 Un known Rx 400 mg-400 mg-40 mg/5 mL oral susp Burni ng #0 mL (Mag-Al Plus Extra Strength) melatonin 3 mg tablet 3 mg PO QHS PRN PRN Insomnia #0 03/27/25 Unknown Rx tabs nut.tx.comp. immune systm,reg 0.08 237 ml PO TIDCM supplement #0 mL 5 Unknown Rx gram-1.4 kcal/mL oral liquid (Ensure Surgery) oxycodone 5 mg tablet 5 mg PO Q4H PRN PRN Pain Score 03/27/25 Unknown Rx 4-10 1 day #2 tabs Allergy/AdvReac Type Severity Reaction Status Date / Time dofetilide (From Tikosyn) Allergy Intermediate Arrhythmia Verified 03/24/25 22:10 alendronate sodium AdvReac Mild Myalgia Verified 03/24/25 22:10 cyproheptadine (From AdvReac Mild Paresthesia Verified 03/24/25 22:10 Periactin) s Family History Mother COPD (chronic obstructive pulmonary disease) Father Heart disease Surgical History History of left hip hemiarthroplasty S/P cholecystectomy S/P hysterectomy S/P appendectomy History of dilation of urethra S/P cataract extraction History of colonoscopy History of cardioversion Social History household members: none Smoking Status: Former smoker how long ago did patient quit smoking: Smoked 1 ppd in her 20s until 05/2024. alcohol intake: never substance use type: does not use ROS Constitutional Constitutional: Denies fatigue, fever(s), poor appetite, weight gain or weight loss Gastrointestinal Gastrointestinal: Denies belching, bloating, change in bowel habits, change in stool character, chewing difficulty, coffee ground emesis, constipation, cramping, diarrhea, dyspepsia, dysphagia, early satiety, excessive flatus, fecal incontinence, heartburn, hematemesis, hematochezia, hemorrhoids, loose stools, melena, nausea, odynophagia, rectal bleeding, tenesmus, vomiting or weight changes Physical Exam Const alert, oriented x3, no apparent distress and healthy appearing General Appearance: cooperative GI normal to inspection, nondistended, normoactive bowel sounds, soft to palpation, non-tender and non-distended Percussion: normal to percussion Rectal Exam: deferred Lab / Micro Data 03/30/25 06:10 03/28/25 05:19 Micro: Microbiology 03/30/25 12:24 Urine Catheter - Catheter Urine Culture - Preliminary Culture exhibits no growth. Assessment & Plan Assessment/Plan (1) Atrial fibrillation: (2) Anemia: PLAN: The patient is an 84-year-old female with a recent left hip hemiarthroplasty.? * Anemia, new onset post-operatively:?The patient's hemoglobin dropped from 11.9 g/dL pre-operatively to around 9 g/dL post-operatively. Stool occult blood testing is positive, suggesting gastrointestinal (GI) bleeding as the likely cause of her anemia. * Gastrointestinal Bleeding:?The positive stool occult blood test indicates active or recent GI blood loss. This is the likely etiology for the drop in hemoglobin. * Recent Surgery:?The patient is post-op day 1 from a left direct anterior hip hemiarthroplasty. * Anticoagulation Management:?The patient has paroxysmal atrial fibrillation and was recently restarted on apixaban. The timing of the resumed anticoagulation relative to the onset of bleeding needs careful management and consideration.? Plan * Gastroenterology: * Continue monitoring Hgb levels closely. * Evaluate need for blood transfusion based on Hgb levels, symptoms of anemia (e.g., dizziness, fatigue, hemodynamic instability), and patient comorbidities. * Perform an upper endoscopy and/or colonoscopy. States she recently underwent surgery we will pursue an upper endoscopy first.. * Anticoagulation: * Coordinate with Orthopedics and Cardiology regarding the management of apixaban. Given the positive stool blood and anemia, holding the apixaban temporarily may be necessary until the bleeding source is identified and controlled. The risks of stopping anticoagulation (stroke) versus continuing it (worsening GI bleed) must be weighed carefully. * Further Management: * Continue current pain management regimen. * Continue post-operative immobilization as directed by Orthopedics. * Maintain NPO after midnight status for potential GI procedures. * Monitor patient closely for signs of further blood loss or hemodynamic instability.? Portions of this note were generated using voice recognition software (Quot[employer] Book Dictation). I have reviewed the contents and every effort has been made to ensure accuracy; however, inadvertent errors in grammar, spelling, punctuation, or word choice may occur, that were not noted before signing the document and should not alter the intended clinical meaning.
[2025-04-05] MEDS: Lactated Ringers 1,000 ML 15 ML IV (08:57)
--- NOTE | 2025-04-05 09:12 | PRE.ANES_ITS ---
ASA Classification* ASA Classification ASA Classification: 3 Assessment & Plan Anesthesia* Anesthesia Assessment Anesthesia Assessment: Discussed sedation and/or anesthesia options, risks, benefits, and alternatives with patient/parents/legal guardian/POA. Questions invited. The patient/parents/legal guardian/POA seems to understand and agrees to proceed with anesthesia plan. Reviewed the physical assessment, medical history, allergy history and patient home medications list prior to surgery/procedure/anesthetic and documented any changes. Performed airway and anesthesia risk assessments. Anesthesia Type Anesthesia Type: MAC History Source History Obtained from:: Patient and Chart Anesthesia Focused Assessment* Temperature: 99.5 F Pulse Rate: 79 Blood Pressure: 173/73 Respiratory Rate: 18 Pulse Ox: 98 Oxygen Delivery Method: Room Air Airway Assessment Mouth opens: >3 cm Mallampati Score: IV Teeth Condition: Dentures (Upper and lower dentures are out.) Neck Range of motion (ROM): Limited ROM (Somewhat Decreased) Labs Anesthesia Preop lab: CBC WBC, (4.4-11.0) 14.0 K/mm3 H 04/04/25, 04:43 RBC, (4.2-5.4) 3.50 M/mm3 L 04/04/25, 04:43 Hgb, (12.0-15.0) 9.9 g/dL L 04/04/25, 04:43 Hct, (37-47) 31.1 % L 04/04/25, 04:43 Plt Count, (150-450) 382 K/mm3 04/04/25, 04:43 CHEMISTRY Potassium, (3.5-5.1) 3.3 mmol/L L Today, 05:11 Sodium, (135-145) 138 mmol/L Today, 05:11 Magnesium, (1.5-2.2) 2.6 mg/dL H 03/26/25, 04:49 Phosphorus, (2.7-4.5) 3.3 mg/dL 03/26/25, 04:49 BUN, (4-19) 10 mg/dL Today, 05:11 Creatinine, (0.70-1.20) 0.76 mg/dL Today, 05:11 Glucose, (70-99) 84 mg/dL Today, 05:11 COAG PT, (11.7-14.9) 15.0 SECONDS H 03/25/25, 05:35 Pre-Assessment Diagnosis/Proposed Procedure Planned Operative Procedure(s): Esophagogastroduodenoscopy with possible biopsy. Colonoscopy with possible biopsy and/or polypectomy. 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 When Was Last Pacemaker Check QUESTION #4 FULL TEXT: You/Your Family Experience fever (hyperthermia) with Anesthesia Last Oral Intake Last Oral intake: Last Oral Intake NPO since 00:00 04/05/25 08:42 Meds taken in AM with sips of Yes 04/05/25 08:42 water? 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 Female HX of Motion Sickness HX of N/V After Surgery Non-Smoker Duration of Surgery greater than 60 minutes Number of Risk Factors PONV Score Height & Weight Height & Weight: Anesthesia: Height & Weight Height 5 ft 3 in 04/05/25 08:42 Weight: 77.111 kg 04/05/25 08:42 Body Mass Index (BMI) 30.1 04/05/25 08:42 Respiratory Assessment Respiratory Assessment - special forces engineer sergeant: Respiratory Tract Infection Hx - special forces engineer sergeant Hx Respiratory Tract Infection No 03/25/25 01:34 Any additional information?: Yes Hx Respiratory Tract Infection: Yes History of Anesthesia Respiratory Infection details: Patient had pneumonia post left hip surgery on the .. Current chest x-ray is clear. STOP Sleep Apnea STOP Sleep Apnea - special forces engineer sergeant: STOP Sleep Apnea - special forces engineer sergeant Hx Hypertension Yes 03/28/25 11:22 Hx Sleep Apnea No 03/27/25 14:12 CPAP BIPAP Do you snore loudly (louder than talking or can be heard Do you often feel tired/ fatigued/ sleepy during daytime? Has anyone observed you stop breathing during sleep? STOP Results QUESTION #5 FULL TEXT : Do you snore loudly (louder than talking or can be heard through closed doors)? 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: Tobacco Use History - special forces engineer sergeant Tobacco Use Smoking Status Former smoker 03/30/25 19:17 Hx Tobacco Use Yes 03/27/25 14:12 Years Smoking Packs Smoked per Day Smoking Cessation Date was within the last 15 years Hx Smoking Cessation Date 05/13/24 03/27/25 14:12 Hx Smoking Cessation No 03/27/25 14:12 Counseling Hematologic Medial History Hematologic Hx - special forces engineer sergeant: Hematologic Medical Hx - medical staff physician Hx of Blood Transfusion Hx of Transfusion in last 3 Months Date of Last Transfusion (if within last 3 months) Ever experience any problems with transfusion(s)? Specify any problems Hx of Preganancy in last 3 Months Nurse Filling Out Transfusion & Questions: Date: Time: Patient unable to answer at this time (ie. confused, unrespo /Reproduction History /Reproductive History - special forces engineer sergeant: /Reproductive Hx- special forces engineer sergeant Hx Now Gestational Age (in weeks): EDC: Hx Hx Para Hx Section SAB No 03/25/25 01:34 Does the father of the baby or his family experience fever w Father of the baby Malignant Hypertension history comment Active Medications Active Medications: Current Medications Generic Name Dose Route Start Last Admin Trade Name Freq PRN Reason Stop Dose Admin Lactated Ringer's 1,000 mls @ 15 mls/hr 04/05/25 08:45 04/05/25 08:57 IV 15 mls/hr .Q48H REMBERTO Administration PFSH Medical History CKD stage 3a, GFR 45-59 ml/min Former tobacco use COPD (chronic obstructive pulmonary disease) PAF (paroxysmal atrial fibrillation) HLD (hyperlipidemia) HTN (hypertension) (HFpEF) heart failure with preserved ejection fraction Home Medications ?Medication ?Instructions ?Recorded ?Last Taken ?Type apixaban 5 mg tablet (Eliquis) 5 mg PO BID blood thinn er 03/24/25 03/27/25 History Held on 04/01/25. Instructions: Ordered atorvastatin 40 mg tablet (Lipitor) 40 mg PO QHS tim sterol 03/24/25 03/31/25 History budesonide 0.25 mg/2 mL suspension 0.25 mg inhalation BID COPD 03/24/25 Unknown History for nebulization (Pulmicort) bumetanide 1 mg tablet 1 mg PO BID fluid pill 03/2403/31/25 History empagliflozin 10 mg tablet 10 mg PO DAILY heart failur e 03/24/25 04/02/25 History (Jardiance) valsartan 320 mg tablet (Diovan) 320 mg PO DAILY Heart failure 03/24/25 Unknown History acetaminophen 500 mg tablet 1,000 mg (2 x 500 mg) PO Q 8 pain 03/27/25 04/05/25 Rx #0 tabs aluminum-mag hydroxide-simethicone 30 ml PO Q6H PRN VA N Gastric 03/27/25 Unknown Rx 400 mg-400 mg-40 mg/5 mL oral susp Burning #0 mL (Mag-Al Plus Extra Strength) melatonin 3 mg tablet 3 mg PO QHS PRN PRN Insomnia #0 03/27/25 Unknown Rx tabs nut.tx.comp. immune systm,reg 0.08 237 ml PO TIDCM sup plement #0 mL 03/27/25 Unknown Rx gram-1.4 kcal/mL oral liquid (Ensure Surgery) oxycodone 5 mg tablet 5 mg PO Q4H PRN PRN Pain Sco re 03/27/25 Unknown Rx 4-10 1 day #2 tabs ascorbic acid (vitamin C) 500 mg 500 mg PO DAILY 04/01 Unknown History capsule losartan 100 mg tablet (Cozaar) 100 mg PO DAILY 04/01/25 08:30 History metoclopramide HCl 5 mg/mL 10 mg IV Q6H 04/01/2504/01 11:40 History injection solution pantoprazole 40 mg tablet,delayed 40 mg PO DAILY 04/0104/01/25 08:30 History release (Protonix) piperacillin-tazobactam 3.375 3.375 g IV Q8H 04/01/25 04/01/25 14:00 History gram/50 mL dextrose(iso-os) IV piggyback (Zosyn) polysaccharide iron complex 150 mg 150 mg PO DAILY Unknown History iron capsule (Ferrex) Allergy/AdvReac Type Severity Reaction Status Date / Time dofetilide (From Tikosyn) Allergy Intermediate Arrhythmia Verified 04/05/25 08:54 alendronate sodium AdvReac Mild Myalgia Verified 04/05/25 08:54 cyproheptadine (From AdvReac Mild Paresthesia Verified 04/05/25 08:54 Periactin) s Family History Mother COPD (chronic obstructive pulmonary disease) Father Heart disease Surgical History History of left hip hemiarthroplasty S/P cholecystectomy S/P hysterectomy S/P appendectomy History of dilation of urethra S/P cataract extraction History of colonoscopy History of cardioversion Social History household members: none Smoking Status: Former smoker how long ago did patient quit smoking: Smoked 1 ppd in her 20s until 05/2024. alcohol intake: never substance use type: does not use Review of Systems (Anesthesia) ROS Narrative System reviewed and no additional complaints, except as documented.
--- NOTE | 2025-04-05 10:50 | COLBX_PTH ---
PATIENT: JED SEWELL LOC: EN U#:[id number] AGE/SX: 84/F ROOM: RE04/05/[address]: Dr. Lev Nuñez DO : 1940 BED: DIS: 04/05/2025 SPEC #: [id number] RECD: 04/05/25 13:40 STATUS: TYLER REZhanna #: [id number] RUDDY: 04/05/25 10:[address]: Lev Nuñez DEPT: SURGICAL PATHOLOGY RECD BY: Janice Molina ENTERED: 04/08/25 11:08 SP TYPE: COLON BX OTHR DR: Dr. Aristeo Rg MD Tissues: A - Duodenum, NOS B - COLON BIOPSY C - COLON BIOPSY D - Transverse colon E - Sigmoid colon biopsy F - Rectum, NOS Procedures: Surgery Specimen Level IV HEADER OPERATION: Colonoscopy with polypectomy and biopsies, EGD with biopsies PRE-OP DIAGNOSIS: Anemia TISSUE SUBMITTED: Duodenum biopsy, hepatic flexure polyp, random colon biopsies, transverse colon polyp, sigmoid polyp, rectum polyps MICROSCOPIC DIAGNOSIS A. Duodenum, biopsy: - Normal villous architecture with Yaz gland hyperplasia. - Negative for increased intraepithelial lymphocytes. B. Colon, hepatic flexure, polyp, biopsy: - Tubular adenoma. C. Colon, random, biopsy: - Mildly increased intraepithelial lymphocytes - see note. Note: Mild increase of intraepithelial lymphocytes raises consideration of lymphocytic (microscopic) colitis. The histologic differential diagnosis includes infection and medication injury reaction. Recommend correlation with clinical and endoscopic findings. D. Colon, transverse, polyp, biopsy: - Tubular adenoma, multiple fragments - see note. Note: The assessment is limited by cautery artifact. E. Colon, sigmoid, polyp, biopsy: - Tubular adenoma and features of hyperplastic polyp, multiple fragments - see note. Note: The assessment is limited by cautery artifact. F. Rectum, polyps, biopsy: - Hyperplastic polyp, multiple fragments - see note. Note: The assessment is limited by cautery artifact. MICROSCOPIC DESCRIPTION Slides are reviewed. GROSS DESCRIPTION A. Received is one container labeled with the patient name and designated duodenum biopsy. The specimen consists of two irregular fragments of light ramirez soft tissue that in aggregate measure 0.5 x 0.4 x 0.2 cm. The specimen is totally submitted in one cassette. CPT: B. Received is one container labeled with the patient name and designated hepatic flexure polyp. The specimen consists of multiple irregular fragments of light ramirez soft tissue that in aggregate measure 1 x 0.5 x 0.3 cm. The specimen is totally submitted in one cassette. CPT: C. Received is one container labeled with the patient name and designated random colon biopsies. The specimen consists of three irregular fragments of light ramirez soft tissue that in aggregate measure 0.6 x 0.4 x 0.2 cm. The specimen is totally submitted in one cassette. CPT: D. Received is one container labeled with the patient name and designated transverse colon polyp. The specimen consists of multiple irregular fragments of light ramirez soft tissue that in aggregate measure 3 x 0.6 x 0.3 cm. The specimen is totally submitted in one cassette. CPT: E. Received is one container labeled with the patient name and designated sigmoid polyp. The specimen consists of multiple irregular fragments of light ramirez soft tissue that in aggregate measure 1.5 x 1 x 0.5 cm. The specimen is totally submitted in one cassette. CPT: F. Received is one container labeled with the patient name and designated rectal polyps. The specimen consists of multiple irregular fragments of light ramirez soft tissue that in aggregate measure 2 x 0.6 x 0.5 cm. The specimen is totally submitted in one cassette. CPT: 49997z0 CW:04/08/25
--- NOTE | 2025-04-05 11:24 | OP.EGD_ITS ---
Patient Name: Lizy Alberts Procedure Date: 04/05/2025 10:26 AM Date of : 1940 Age: 84 Procedure: Upper GI endoscopy Indications: Acute post hemorrhagic anemia, Iron deficiency anemia Providers: Lev Nuñez DO Medicines: Monitored Anesthesia Care Patient Profile: This is an 84 year old female. Refer to note in patient chart for documentation of history and physical. Patient has symptoms. Complications: No immediate complications. Procedure: Pre-Anesthesia Assessment: - Prior to the procedure, a History and Physical was performed, and patient medications and allergies were reviewed. The patient is competent. The risks and benefits of the procedure and the sedation options and risks were discussed with the patient. All questions were answered and informed consent was obtained. Patient identification and proposed procedure were verified by the physician in the pre-procedure area. Mental Status Examination: alert and oriented. Airway Examination: normal oropharyngeal airway and neck mobility. Respiratory Examination: clear to auscultation. CV Examination: normal. Prophylactic Antibiotics: The patient does not require prophylactic antibiotics. Prior Anticoagulants: The patient has taken no anticoagulant or antiplatelet agents except for NSAID medication. ASA Grade Assessment: II - A patient with mild systemic disease. After reviewing the risks and benefits, the patient was deemed in satisfactory condition to undergo the procedure. The anesthesia plan was to use monitored anesthesia care (MAC). Immediately prior to administration of medications, the patient was re-assessed for adequacy to receive sedatives. The heart rate, respiratory rate, oxygen saturations, blood pressure, adequacy of pulmonary ventilation, and response to care were monitored throughout the procedure. The physical status of the patient was re-assessed after the procedure. After obtaining informed consent, the endoscope was passed under direct vision. Throughout the procedure, the patient's blood pressure, pulse, and oxygen saturations were monitored continuously. The Colonoscope was introduced through the mouth, and advanced to the fourth part of the duodenum. Small bowel enteroscopy was deemed necessary. The upper GI endoscopy was accomplished without difficulty. The patient tolerated the procedure well. Scope In: 10:46:49 AM Scope Out: 10:49:42 AM Total Procedure Duration Time 0 hours 2 minutes 53 seconds Findings: The examined esophagus was normal. Patchy mildly erythematous mucosa without bleeding was found in the gastric body. Biopsies were taken with a cold forceps for histology. Biopsies were taken with a cold forceps for Helicobacter pylori testing. Verification of patient identification for the specimen was done. Estimated blood loss was minimal. No gross lesions were noted in the entire examined duodenum. A medium-sized hiatal hernia was present. Impression: - Normal esophagus. - Erythematous mucosa in the gastric body. Biopsied. - No gross lesions in the entire examined duodenum. Recommendation: - Discharge patient to home. - Resume previous diet. - Continue present medications. - Await pathology results. Procedure Code(s): --- Professional --- 71212, Small intestinal endoscopy, enteroscopy beyond second portion of duodenum, not including ileum; with biopsy, single or multiple CPT copyright 2021 [employer]. All rights reserved. The codes documented in this report are preliminary and upon cpc coder review may be revised to meet current compliance requirements. Lev Nuñez DO 04/05/2025 11:24:26 AM This report has been signed electronically. Number of Addenda: 0 Note Initiated On: 04/05/2025 10:26 AM
--- NOTE | 2025-04-05 11:25 | OP.PROVAT_ITS ---
04/05/2025 Aristeo Rg Md Re : Upper GI endoscopy procedure for Lizy Aristeo Dear Dr. Rg This procedure was performed on Saturday, April 05, 2025. My impressions and recommendations are as follows: Impressions : - Normal esophagus. - Erythematous mucosa in the gastric body. Biopsied. - No gross lesions in the entire examined duodenum. Recommendations : - Discharge patient to home. - Resume previous diet. - Continue present medications. - Await pathology results. My findings are described in the full procedure note, which is enclosed. If I can be of further assistance, please feel free to contact me at . Sincerely, Lev Nuñez, 04/05/2025 11:24:26 AM This report has been signed electronically.
--- NOTE | 2025-04-05 11:30 | OP.PROVAT_ITS ---
04/05/2025 Aristeo Rg Md Re : Colonoscopy procedure for Lizy Alberts Dear Dr. Rg This procedure was performed on Saturday, April 05, 2025. My impressions and recommendations are as follows: Impressions : - Five 13 mm polyps in the rectum, in the sigmoid colon, in the transverse colon and at the hepatic flexure, removed with a hot snare. Resected and retrieved. - Congested mucosa in the sigmoid colon, in the transverse colon, at the hepatic flexure and in the ascending colon. Biopsied. - Diverticulosis in the recto-sigmoid colon and in the sigmoid colon. Recommendations : - Discharge patient to home. - Resume previous diet. - Continue present medications. - Await pathology results. - Repeat colonoscopy in 3 years for surveillance. My findings are described in the full procedure note, which is enclosed. If I can be of further assistance, please feel free to contact me at . Sincerely, Lev Nuñez, 04/05/2025 11:30:03 AM This report has been signed electronically.
--- NOTE | 2025-04-05 11:30 | OP.COLON_ITS ---
Patient Name: Lizy Alberts Procedure Date: 04/05/2025 10:49 AM Date of : 1940 Age: 84 Procedure: Colonoscopy Indications: Iron deficiency anemia Providers: Lev Nuñez DO Medicines: Monitored Anesthesia Care Patient Profile: This is an 84 year old female. Refer to note in patient chart for documentation of history and physical. Patient has symptoms. Last Colonoscopy: more than 10 years ago. Complications: No immediate complications. Procedure: Pre-Anesthesia Assessment: - Prior to the procedure, a History and Physical was performed, and patient medications and allergies were reviewed. The patient is competent. The risks and benefits of the procedure and the sedation options and risks were discussed with the patient. All questions were answered and informed consent was obtained. Patient identification and proposed procedure were verified by the physician in the pre-procedure area. Mental Status Examination: alert and oriented. Airway Examination: normal oropharyngeal airway and neck mobility. Respiratory Examination: clear to auscultation. CV Examination: normal. Prophylactic Antibiotics: The patient does not require prophylactic antibiotics. Prior Anticoagulants: The patient has taken no anticoagulant or antiplatelet agents except for NSAID medication. ASA Grade Assessment: II - A patient with mild systemic disease. After reviewing the risks and benefits, the patient was deemed in satisfactory condition to undergo the procedure. The anesthesia plan was to use monitored anesthesia care (MAC). Immediately prior to administration of medications, the patient was re-assessed for adequacy to receive sedatives. The heart rate, respiratory rate, oxygen saturations, blood pressure, adequacy of pulmonary ventilation, and response to care were monitored throughout the procedure. The physical status of the patient was re-assessed after the procedure. After I obtained informed consent, the scope was passed under direct vision. Throughout the procedure, the patient's blood pressure, pulse, and oxygen saturations were monitored continuously. The Colonoscope was introduced through the anus and advanced to the cecum, identified by appendiceal orifice and ileocecal valve. The colonoscopy was performed without difficulty. The patient tolerated the procedure well. The quality of the bowel preparation was adequate. The ileocecal valve, appendiceal orifice, and rectum were photographed. Scope In: 10:51:10 AM Scope Withdrawal Time 0 hours 21 minutes 5 seconds Scope Out: 11:15:21 AM Total Procedure Duration Time 0 hours 24 minutes 11 seconds Findings: The perianal and digital rectal examinations were normal. Five sessile polyps were found in the rectum, sigmoid colon, transverse colon and hepatic flexure. The polyps were 13 mm in size. These polyps were removed with a hot snare. Resection and retrieval were complete. Verification of patient identification for the specimen was done. Estimated blood loss was minimal. An area of mildly congested mucosa was found in the sigmoid colon, in the transverse colon, at the hepatic flexure and in the ascending colon. Biopsies were taken with a cold forceps for histology. Verification of patient identification for the specimen was done. Estimated blood loss was minimal. A few small-mouthed diverticula were found in the recto-sigmoid colon and sigmoid colon. Impression: - Five 13 mm polyps in the rectum, in the sigmoid colon, in the transverse colon and at the hepatic flexure, removed with a hot snare. Resected and retrieved. - Congested mucosa in the sigmoid colon, in the transverse colon, at the hepatic flexure and in the ascending colon. Biopsied. - Diverticulosis in the recto-sigmoid colon and in the sigmoid colon. Recommendation: - Discharge patient to home. - Resume previous diet. - Continue present medications. - Await pathology results. - Repeat colonoscopy in 3 years for surveillance. Procedure Code(s): --- Professional --- 84832, Colonoscopy, flexible; with removal of tumor(s), polyp(s), or other lesion(s) by snare technique 83999, 59, Colonoscopy, flexible; with biopsy, single or multiple CPT copyright 2021 [employer]. All rights reserved. The codes documented in this report are preliminary and upon button buttonhole marker review may be revised to meet current compliance requirements. Lev Nuñez DO 04/05/2025 11:30:03 AM This report has been signed electronically. Number of Addenda: 0 Note Initiated On: 04/05/2025 10:49 AM
--- NOTE | 2025-04-05 11:30 | PCM.POST.ANE ---
Anesthesia: Postop Eval I Current Vital Signs Temperature: 97 F Pulse Rate: 84 Blood Pressure: 132/66 Respiratory Rate: 16 Pulse Ox: 96 Oxygen Delivery Method: Nasal Cannula Oxygen Flow Rate (L/min): 3 Assessment Airway patent: Yes Spontaneous unlabored respirations: Yes Mental status: Awake and Calm nausea: No Vomiting: No Anesthesia Complication: No Fluid Hydration Crystalloid volume administer (ml): 200 Total IV fluid infused: 200 Progress Note Anesthesia document: Postop Eval 1 completed: Yes
--- NOTE | 2025-04-05 16:10 | PCM.POSTANE2 ---
Anesthesia Postop Eval I Sum Postop Eval Completion status Anesthesia document: Postop Eval 1 completed: Yes Anesthesia Postop Eval I Summary Anesthesia Postop Eval I Summary: Anesthesia Postop Eval I: Assessment Summary Airway patent Yes 04/05/25 11:31 [email or web address] Spontaneous unlabored Yes 04/05/25 11:31 [email or web address] respirations Mental status Awake,Calm 04/05/25 11:31 [email or web address] nausea No 04/05/25 11:31 [email or web address] Vomiting No 04/05/25 11:31 [email or web address] Anesthesia Postop Eval I: Fluid Summary Crystalloid volume administer 200 04/05/25 11:31 [email or web address] (ml) Colloids volume administered ( ml) Blood Product volume administered (ml) Total IV fluid infused 200 04/05/25 11:31 [email or web address] Anesthesia Postop Eval I: Summary Notes Anesthesia Complication No 04/05/25 11:31 [email or web address] Anesthesia Complication Comment: Post-operative progress note Anesthesia: Postop Eval II Evaluation Mental status: Awake Pain Level: 0 nausea: No Vomiting: No
--- OUTSIDE RECORDS SUMMARY | 2025-04-26 19:57 | XMS RPT_ITS | CCD ---
Author Organization [facility] ion [facility] Care Team Providers Care Product Builder Name Role Phone EMILIANO LEAL DO Primary Care Physician Candy PT, Daniella Unavailable Unavailable KEILY AMADO [...] AGACNP, RHINA M Admitting Unavailab megan DIEHL SOLE SCRAPER-DYNAMOMETER TESTER ENGINE, ASIM Consulting Unavailab megan RODRIGUEZ DO, DR CAAL Attending Unavailable KAPPFEI SOLE SCRAPER-DYNAMOMETER TESTER ENGINE, DANIELLA M Admitting Unavaila ble ELVIS DO, EMILIANO Primary Care Unavailable DONATO NAVARRETE DO Primary Care Unavailable DONATO NAVARRETE DO Attending Unavailable ELVIS DO, EMILIANO Primary Care Unavailable RANDEE SOLE SCRAPER-DYNAMOMETER TESTER ENGINE, ANASTASIYA Tobias Attending Unavail hemant GALDAMEZ MD, [...] sources) Cyproheptadine; Translations: [cyproheptadine] Drug Allergy Numbness [facility] (20 sources) Alendronate; Translations: [alendronate] Drug Allergy 2 Muscle pain (finding) [facility] (9 sources) amLODIPine; Translations: [amlodipine] Drug Allergy 4 Edema (finding) [facility] (7 sources) dofetilide; Translations: [dofetilide] Drug Allergy Irregular heart beat (finding) [facility] Medications Current Medications Medication Drug Class(es) [...] qDay, # 90 tab(s), 3 Refill(s), Pharmacy: [facility], 160, cm, 06/13/24 13:57:00 EST, Height, kg, 06/13/24 13:57:00 EST, Dosing Weight Start Date: 06/13/24 Status: Ordered Quantity: 90.0 Unit: tab(s) Repeat number: 4 Start: 05-26-2024 amiodarone 200 mg oral tablet Dose : 200 mg = 1 tab(s), Oral, qDay, Take with food., # 90 tab(s), 0 Refill(s), Pharmacy: [facility], 160, cm, 05/13/24 16:44:00 EST, Height, kg, 05/13/24 16:44:00 EST, Dosing Weight Start Date: 05/26/24 Status: Ordered Quantity: 90.0 Unit: tab(s) Repeat number: 1 Start: 05-26-2024 amiodarone 200 mg oral tablet Dose : 200 mg = 1 tab(s), Oral, qDay, Take with food., # 90 tab(s), 0 Refill(s), Pharmacy: [facility], 160, cm, 05/13/24 16:44:00 EST, Height, kg, 05/13/24 16:44:00 EST, Dosing Weight Start Date: 05/26/24 Status: Ordered Quantity: 90.0 Unit: tab(s) Repeat number: 1 Start: 05-18-2024 End: 05-25-2024 amiodarone 200 mg oral table t Dose : 400 mg = 2 tab(s), Oral, BIDM, # 28 tab(s), 0 Refill(s), Pharmacy: [facility], 160, cm, 05/13/24 16:44:00 EST, Height, kg, 05/13/24 16:44:00 EST, Dosing Weight Start Date: 05/18/24 Stop Date: 05/25/24 Status: Ordered Quantity: 28.0 Unit: tab(s) Repeat number: 1 amLODIPine 5 mg oral tablet (12 sources) Dihydropyridine Calcium Channel Vadim Start: 07-01-2024 amLODIPine 5 mg oral tablet Dose : 5 mg = 1 tab(s), Oral, qDay, # 90 tab(s), 3 Refill(s), [id number], 167, cm, 06/28/24 5:22:00 EDT, Height, kg, 06/28/24 5:22:00 EDT, Dosing Weight Start Date: 07/01/24 Status: Ordered Quantity: 90.0 Unit: tab(s) Repeat number: 4 Start: 01-06-2022 amLODIPine 10 mg oral tablet Dose : 10 mg = 1 tab(s), Oral, Daily, # 90 tab(s), 3 Refill(s), Pharmacy: [facility] #[id number], 159, cm, 10/05/21 9:50:00 EDT, Height, kg, 10/05/21 9:50:00 EDT, Dosing Weight Start Date: 01/06/22 Status: Ordered Start: 10-05-2021 amLODIPine 10 mg oral tablet Dose : 10 mg = 1 tab(s), Oral, Daily, # 90 tab(s), 3 Refill(s), Pharmacy: [facility] 159, cm, 10/05/21 9:50:00 EDT, Height, kg, 10/05/21 9:50:00 EDT, Dosing Weight Start Date: 10/05/21 Status: Ordered Start: 10-06-2020 amLODIPine 10 mg oral tablet Dose : 10 mg = 1 tab(s), Oral, Daily, # 90 tab(s), 3 Refill(s), Pharmacy: [facility] 160, cm, 10/06/20 8:46:00 EDT, Height, kg, 10/06/20 8:46:00 EDT, Dosing Weight Start Date: 10/06/20 Status: Ordered apixaban 5 mg oral tablet (16 sources) Factor Xa Inhibitor Start: 10-05-2024 Eliquis 5 mg oral tablet Dose : 5 mg = 1 tab(s), Oral, BID, # 180 tab(s), 3 Refill(s), Pharmacy: [facility], 157.5, cm, 09/19/24 14:48:00 EDT, Height, 69.6, kg, 09/19/24 14:48:00 EDT, Dosing Weight Start Date: 10/05/24 Status: Ordered Medication Dispense Status: Completed Quantity: 180.0 Unit: tab(s) Total Allowed Fills: 4 Fills Dispensed: 0 Start: 08-29-2024 Eliquis 5 mg o ral tablet Dose : 5 mg = 1 tab(s), Oral, BID, # 180 tab(s), 3 Refill(s), Pharmacy: [facility], 157.5, cm, 08/27/24 18:22:00 EDT, Height, 67.9, kg, 08/27/24 18:22:00 EDT, Dosing Weight Start Date: 08/29/24 Status: Ordered Quantity: 180.0 Unit: tab(s) Repeat number: 4 Start: 07-26-2024 Eliquis 5 mg o ral tablet Dose : 5 mg = 1 tab(s), Oral, BID, # 180 tab(s), 3 Refill(s), [facility]: [facility], 160, cm, 07/19/24 15:08:00 EDT, Height, 65.4, kg, 07/19/24 15:02:00 EDT, Dosing Weight Start Date: 07/26/24 Status: Ordered Quantity: 180.0 Unit: tab(s) Repeat number: 4 Start: 06-19-2024 Eliquis 5 mg o ral tablet Dose : 5 mg = 1 tab(s), Oral, BID, # 180 tab(s), 3 Refill(s), Pharmacy: [facility], 160, cm, 06/19/24 6:42:00 EDT, Height, 61.3, kg, 06/19/24 6:42:00 EDT, Dosing Weight Start Date: 06/19/24 Status: Ordered Quantity: 180.0 Unit: tab(s) Repeat number: 4 Start: 05-28-2024 Eliquis 2.5 mg oral tablet Dose : 2.5 mg = 1 tab(s), Oral, BID, # 60 tab(s), 0 Refill(s), Pharmacy: [facility] #[id number], 160, cm, 05/23/24 14:01:00 EST, Height, 63.8, [...] BID, # 180 tab(s), 3 Refill(s), Pharmacy: [facility], 160, cm, 05/13/24 16:44:00 EST, Height, 65.9, kg, 05/13/24 16:44:00 EST, Dosing Weight Start Date: 05/18/24 Status: Ordered Quantity: 180.0 Unit: tab(s) Repeat number: 4 atorvastatin 40 mg oral tablet (1 source) HMG-CoA Reductase Inhibitor Start: 02-19-2025 End: 02-14-2026 atorvastatin 40 mg oral tablet Dose : 40 mg = 1 tab(s), Oral, qDay, # 90 tab(s), 3 Refill(s), Pharmacy: [facility], 157.5, cm, 02/19/25 6:33:00 EST, Height, kg, [...] 0 Refill(s), 01/06/25 3:57:00 PM EDT, Pharmacy: [facility], 177.8, cm, 01/01/25 9:42:00 EDT, Height, 73.8, [...] qHS, # 30 tab(s), 0 Refill(s), Pharmacy: [facility], HTN (hypertension), 158, cm, 04/19/24 14:50:00 EST, [...] inhalations/day, # 1 EA, 2 Refill(s), Pharmacy: [facility], 157.8, cm, 01/16/25 15:23:00 EDT, [...] use, # 1 EA, 2 Refill(s), Pharmacy: [facility], COPD - Chronic obstructive pulmonary [...] # 180 tab(s), 3 Refill(s), Pharmacy: [facility] #[id number], 167, cm, 06/28/24 5:22:00 EDT, Height, kg, 06/28/24 5:22:00 EDT, Dosing Weight Start Date: 07/01/24 Status: Ordered Medication Dispense Status: Completed Quantity: 180.0 Unit: tab(s) Total Allowed Fills: 4 Fills Dispensed: 0 Start: 05-28-2024 End: 06-27-2024 bumetanide 1 mg oral tablet Dose : 1 mg = 1 tab(s), Oral, BID, # 180 tab(s), 3 Refill(s), Pharmacy: [facility], 160, cm, 06/13/24 13:57:00 EST, Height, kg, [...] qDay, # 90 cap(s), 3 Refill(s), Pharmacy: [facility], 160, cm, 06/13/24 13:57:00 EST, Height, kg, 06/13/24 13:57:00 EST, Dosing Weight Start Date: 06/13/24 Status: Ordered Quantity: 90.0 Unit: cap(s) Repeat number: 4 Start: 05-28-2024 Cardizem CD 12 0 mg/24 hours oral capsule, extended release Dose : 120 mg = 1 cap(s), Oral, qDay, # 30 cap(s), 0 Refill(s), Pharmacy: [facility], 160, cm, 05/23/24 14:01:00 EST, Height, kg, [...] qAM, # 90 tab(s), 3 Refill(s), Pharmacy: [facility], 157.5, cm, 12/20/24 15:03:00 EDT, Height, kg, 12/20/24 15:03:00 EDT, Dosing Weight Start Date: 01/01/25 Status: Ordered Medication Dispense Status: Completed Quantity: 90.0 Unit: tab(s) Total Allowed Fills: 4 Fills Dispensed: 0 Start: 06-14-2024 Jardiance 10 m g oral tablet Dose : 10 mg = 1 tab(s), Oral, qAM, # 90 tab(s), 3 Refill(s), Pharmacy: [facility], 160, cm, 06/13/24 13:57:00 EST, Height, kg, 06/13/24 13:57:00 EST, Dosing Weight Start Date: 06/14/24 Status: Ordered Quantity: 90.0 Unit: tab(s) Repeat number: 4 Start: 05-28-2024 Jardiance 10 m g oral tablet Dose : 10 mg = 1 tab(s), Oral, qAM, # 30 tab(s), 0 Refill(s), Pharmacy: [facility], 160, cm, 05/23/24 14:01:00 EST, Height, kg, [...] qDay, # 30 tab(s), 0 Refill(s), Pharmacy: [facility], 160, cm, 05/13/24 16:44:00 EST, Height, kg, 05/13/24 16:44:00 EST, Dosing Weight Start Date: 05/18/24 Status: Ordered Quantity: 30.0 Unit: tab(s) Repeat number: 1 gabapentin 600 mg oral tablet (2 sources) Anti-epileptic Agent Start: 04-06-2021 End: 07-05-2021 gabapentin 600 mg oral tablet Dose : 600 mg = 1 tab(s), Oral, BID, # 180 tab(s), 0 Refill(s), Pharmacy: [facility], [place], 159, cm, 04/06/21 7:47:00 EST, Height, 63, kg, 04/06/21 7:47:00 EST, Dosing Weight Start Date: 04/06/21 Stop Date: 07/05/21 Status: Ordered Start: 10-06-2020 End: 04-04-2021 gabapentin 600 mg oral table t Dose : 600 mg = 1 tab(s), Oral, BID, # 180 tab(s), 1 Refill(s), Pharmacy: [facility], [place], 160, cm, 10/06/20 8:46:00 EDT, Height, 65.6, kg, 10/06/20 8:46:00 EDT, Dosing Weight Start Date: 10/06/20 Stop Date: 04/04/21 Status: Ordered hydroCHLOROthiazide 12.5 mg oral tablet (1 source) Thiazide Diuretic Start: 04-13-2024 hydroCHLOROthiazide 12.5 mg oral tablet Dose : 12.5 mg = 1 tab(s), Oral, qDay, # 90 tab(s), 3 Refill(s), Pharmacy: [facility], HTN (hypertension), 158, cm, 02/23/24 10:19:00 EST, [...] food, # 60 tab(s), 1 Refill(s), Pharmacy: [facility], 157.5, cm, 01/31/25 10:22:00 EDT, Height, kg, 01/31/25 10:22:00 EDT, Dosing Weight Start Date: 02/18/25 Status: Ordered Medication Dispense Status: Completed Quantity: 60.0 Unit: tab(s) Total Allowed Fills: 2 Fills Dispensed: 0 Start: 06-19-2024 potassium chlo ride 20 mEq oral tablet, extended release Dose : 20 mEq = 1 tab(s), Oral, qDay, Take with food, # 30 tab(s), 3 Refill(s), Pharmacy: [facility], 160, cm, 06/19/24 6:42:00 EDT, Height, kg, 06/19/24 6:42:00 EDT, Dosing Weight Start Date: 06/19/24 Status: Ordered Quantity: 30.0 Unit: tab(s) Repeat number: 4 valsartan 320 mg oral tablet (13 sources) Angiotensin 2 Receptor Vadim Start: 01-31-2025 valsartan 320 mg ora l tablet Dose : 320 mg = 1 tab(s), Oral, Daily, # 100 tab(s), 1 Refill(s), Pharmacy: [facility], 157.5, cm, 01/31/25 10:22:00 EDT, Height, kg, 01/31/25 10:22:00 EDT, Dosing Weight Start Date: 01/31/25 Status: Ordered Medication Dispense Status: Completed Quantity: 100.0 Unit: tab(s) Total Allowed Fills: 2 Fills Dispensed: 0 Start: 07-23-2024 valsartan 160 mg oral tablet Dose : 160 mg = 1 tab(s), Oral, qDay, Replaces previous Rx for the valsartan 320 mg dose., # 90 tab(s), 1 Refill(s), Pharmacy: [facility], 160, cm, 07/19/24 15:08:00 EDT, Height, kg, 07/19/24 15:02:00 EDT, Dosing Weight Start Date: 07/23/24 Status: Ordered Medication Dispense Status: Completed Quantity: 90.0 Unit: tab(s) Total Allowed Fills: 2 Fills Dispensed: 0 Start: 02-23-2024 valsartan 320 mg oral tablet Dose : 320 mg = 1 tab(s), Oral, qDay, Replaces previous prescription for valsartan 160 mg tablets., # 90 tab(s), 3 Refill(s), Pharmacy: [facility], 158, cm, 02/23/24 10:19:00 EST, Height, kg, [...] BIDM, # 60 tab(s), 0 Refill(s), Pharmacy: [facility], 160, cm, 05/13/24 16:44:00 EST, Height, kg, [...] atrial fibrillation] Onset: 5 Unclassified (2 sources) retirement (current) use of immunosuppressive biologic; Translations: [retirement (current) use of immunosuppressive biologic] Onset: 5 [...] Onset: 05-18-2024 Episodic Other aftercare (2 sources) 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; Translations: [retirement (current) use of anticoagulants] Onset: 05-20-2024 Episodic Other aftercare (1 source) retirement (current) use of inhaled steroids; Translations: [joint terminal attack controller (current) use of inhaled steroids] Onset: 07-27-2024 Episodic Other aftercare (1 source) joint terminal attack controller (current) use of oral hypoglycemic drugs; Translations: [retirement (current) use of oral hypoglycemic drugs] Onset: 07-27-2024 Episodic Other aftercare (1 source) Other skilled nursing (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; Translations: [Other skilled nursing (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] Onset: 07-27-2024 Episodic Other [...] Estimated Glomerular Filtration Rate 63 ml/min/1.73sqm Normal [facility] Comment on above: Result Comment: [...] By: #### G , BMP #### [address] [address] [facility] 02-19-2025 BUN/Creatinine Ratio 18.7 ratio Normal 10.0-22.0 [facility] Comment on above: Performed By: #### G , BMP #### [address] [address] Calcium [Mass/Vol] 9.3 mg/dL Normal 8.7-10.4 [facility] Comment on above: Performed By: #### G FR, BMP #### [address] [address] Chloride [Moles/Vol] 104 mmol/L Normal 98-110 [facility] Comment on above: Performed By: #### Ed WAGNER, BMP #### [address] [address] CO2 [Moles/Vol] 28 mmol/L Normal 22-32 [facility] Comment on above: Performed By: #### Ed WAGNER, BMP #### [place] [id number] Creatinine [Mass/Vol] 0.91 mg/dL Normal 0.50-1.20 [facility] Comment on above: Result Comment: Test ing performed on Official [employer] Virtual analyzer using enzymatic creatinine methodology. Performed By: #### Ed WAGNER, BMP #### [place] [address] Electrolyte Balance 10.0 mEq/L Normal 4.0-15.0 [facility] Comment on above: Performed By: #### Ed WAGNER, BMP #### [place] [id number] Glucose [Mass/Vol] 94 mg/dL Normal 82-115 [facility] Comment on above: Performed By: #### Ed WAGNER, BMP #### [place] [id number] Potassium [Moles/Vol] 3.7 mmol/L Normal 3.5-5.0 [facility] Comment on above: Performed By: #### Ed WAGNER, BMP #### [place] [id number] Sodium [Moles/Vol] 142 mmol/L Normal 136-145 [facility] Comment on above: Performed By: #### Ed WAGNER, BMP #### [address] [address] Urea nitrogen [Mass/Vol] 17.0 mg/dL Normal 8.0-22.0 [facility] Comment on above: Performed By: #### Ed WAGNER, BMP #### [address] [address] LABORATORYOrdered By: SYSTEM SYSTEM on 02-19-2025 Calcium [Mass/Vol] 9.3 mg/dL Normal 8.7 - 10. 4 mg/dL ADM SS Chloride [Moles/Vol] 104 mmol/L Normal 98 - 11 0 mEq/L ADM SS CO2 [Moles/Vol] 28 mmol/L Normal 22 - 32 mEq/L ADM SS Creatinine [Mass/Vol] 0.91 mg/dL Normal 0.50 - 1.20 mg/dL AH ADM SS Comment on above: Interpretive Data: T esting performed on Official [employer] Virtual analyzer using enzymatic creatinine methodology. Electrolyte Balance [...] Basophil, Absolute 0.1 10 3/mcL Normal 0.0-0.3 [facility] Comment on above: Performed By: #### M DW, MG, GFR, BMP, CBC, ANEU, TROPHS, ADIFF #### [address] [address] Basophils/100 WBC (Bld) 1.1 % Normal 0.0-2.5 [facility] Comment on above: Performed By: #### M DW, MG, GFR, BMP, CBC, ANEU, TROPHS, ADIFF #### [address] [address] Eosinophil, Absolute 0.3 10 3/mcL Normal 0.0-0.7 [facility] Comment on above: Performed By: #### M DW, MG, GFR, BMP, CBC, ANEU, TROPHS, ADIFF #### [address] [address] Eosinophils/100 WBC (Bld) 3.5 % Normal 0.0-6.0 [facility] Comment on above: Performed By: #### M DW, MG, GFR, BMP, CBC, ANEU, TROPHS, ADIFF #### [address] [address] Lymphocyte, Absolute 1.7 10 3/mcL Normal 0.9-4.3 [facility] Comment on above: Performed By: #### M DW, MG, GFR, BMP, CBC, ANEU, TROPHS, ADIFF #### [address] [address] Lymphocytes/100 WBC (Bld) 17.9 % Low 20.0-40.0 [facility] Comment on above: Performed By: #### M DW, MG, GFR, BMP, CBC, ANEU, TROPHS, ADIFF #### [address] [address] Monocyte, Absolute 0.7 10 3/mcL Normal 0.1-1.4 [facility] Comment on above: Performed By: #### M DW, MG, GFR, BMP, CBC, ANEU, TROPHS, ADIFF #### [address] [address] Monocytes/100 WBC (Bld) 7.8 % Normal 2.0-13.0 [facility] Comment on above: Performed By: #### M DW, MG, GFR, BMP, CBC, ANEU, TROPHS, ADIFF #### [address] [address] Neutrophils/100 WBC (Bld) 69.7 % Normal 50.0-75.0 [facility] Comment on above: Performed By: #### M DW, MG, GFR, BMP, CBC, ANEU, TROPHS, ADIFF #### [address] [address] .GFRon 02-15-2025 Estimated Glomerular Filtration Rate 51 ml/min/1.73sqm Normal [facility] Comment on above: Result Comment: Stages of [...] GFR, BMP, CBC, ANEU, TROPHS, ADIFF #### [address] [address] .NEUABSon 02-15-2025 Neutrophil, Absolute 6.5 10 3/mcL Normal 2.3-8.1 [facility] Comment on above: Performed By: #### M DW, MG, GFR, BMP, CBC, ANEU, TROPHS, ADIFF #### [address] [address] BMPon 02-15-2025 BUN/Creatinine Ratio 16 ratio Normal 7-27 [facility] Comment on above: Performed By: #### M DW, MG, GFR, BMP, CBC, ANEU, TROPHS, ADIFF #### [address] [address] Calcium [Mass/Vol] 9.0 mg/dL Normal 8.4-10.2 [facility] Comment on above: Performed By: #### M DW, MG, GFR, BMP, CBC, ANEU, TROPHS, ADIFF #### [address] [address] Chloride [Moles/Vol] 100 mmol/L Normal 98-107 [facility] Comment on above: Performed By: #### M DW, MG, GFR, BMP, CBC, ANEU, TROPHS, ADIFF #### [address] [address] CO2 [Moles/Vol] 33 mmol/L High 23-31 [facility] Comment on above: Performed By: #### M DW, MG, GFR, BMP, CBC, ANEU, TROPHS, ADIFF #### [place] [id number] Creatinine [Mass/Vol] 1.08 mg/dL High 0.51-0.95 [facility] Comment on above: Performed By: #### M DW, MG, GFR, BMP, CBC, ANEU, TROPHS, ADIFF #### [address] [address] Electrolyte Balance 8.0 mEq/L Normal 4.0-15.0 [facility] Comment on above: Performed By: #### M DW, MG, GFR, BMP, CBC, ANEU, TROPHS, ADIFF #### [address] [address] Glucose [Mass/Vol] 94 mg/dL Normal 83-110 [facility] Comment on above: Performed By: #### M DW, MG, GFR, BMP, CBC, ANEU, TROPHS, ADIFF #### [address] [address] Potassium [Moles/Vol] 2.9 mmol/L Low 3.5-5.1 [facility] Comment on above: Performed By: #### M DW, MG, GFR, BMP, CBC, ANEU, TROPHS, ADIFF #### [address] [address] Sodium [Moles/Vol] 141 mmol/L Normal 136-145 [facility] Comment on above: Performed By: #### M DW, MG, GFR, BMP, CBC, ANEU, TROPHS, ADIFF #### [address] [address] Urea nitrogen [Mass/Vol] 17 mg/dL Normal 7-18 [facility] Comment on above: Performed By: #### M DW, MG, GFR, BMP, CBC, ANEU, TROPHS, ADIFF #### [place] [id number] CBCon 02-15-2025 Erythrocyte distribution width (RBC) [Ratio] 14.0 % Normal 11.5-15.5 [facility] Comment on above: Performed By: #### M DW, MG, GFR, BMP, CBC, ANEU, TROPHS, ADIFF #### [address] [address] Hematocrit (Bld) [Volume fraction] 40.8 % Normal 34.0-46.0 [facility] Comment on above: Performed By: #### M DW, MG, GFR, BMP, CBC, ANEU, TROPHS, ADIFF #### [address] [address] Hgb 13.8 G/dL Normal 12.0-16.0 [facility] Comment on above: Performed By: #### M DW, MG, GFR, BMP, CBC, ANEU, TROPHS, ADIFF #### [address] [address] MCH (RBC) [Entitic mass] 28.3 pg Normal 27.0-33.0 [facility] Comment on above: Performed By: #### M DW, MG, GFR, BMP, CBC, ANEU, TROPHS, ADIFF #### [address] [address] MCHC 33.8 G/dL Normal 32.0-36.0 [facility] Comment on above: Performed By: #### M DW, MG, GFR, BMP, CBC, ANEU, TROPHS, ADIFF #### [address] [address] MCV (RBC) [Entitic vol] 83.8 fL Normal 80.0-99.0 [facility] Comment on above: Performed By: #### M DW, MG, GFR, BMP, CBC, ANEU, TROPHS, ADIFF #### [address] [address] Platelet 299 10 3/mcL Normal 150-450 [facility] Comment on above: Performed By: #### M DW, MG, GFR, BMP, CBC, ANEU, TROPHS, ADIFF #### [address] [address] Platelet mean volume (Bld) [Entitic vol] 7.9 fL Normal 6.6-10.5 [facility] Comment on above: Performed By: #### M DW, MG, GFR, BMP, CBC, ANEU, TROPHS, ADIFF #### [address] [address] RBC 4.87 10 6/mcL Normal 4.10-5.30 [facility] Comment on above: Performed By: #### M DW, MG, GFR, BMP, CBC, ANEU, TROPHS, ADIFF #### [address] [address] WBC 9.3 10 3/mcL Normal 4.5-10.8 [facility] Comment on above: Performed By: #### M DW, MG, GFR, BMP, CBC, ANEU, TROPHS, ADIFF #### [address] [address] LABORATORYOrdered By: SYSTEM SYSTEM on 02-15-2025 Basophils [...] Comment on above: Interpretive Data: Jatinder samano [employer] (CHEST, 1991, 102:[id number]) [...] Coag (PPP) [Time] 14.1 s Normal 9.0-14.4 [facility] Comment on above: Performed By: #### M DW, MG, GFR, BMP, CBC, ANEU, TROPHS, ADIFF #### [place] [id number] [place], [place] [address] PT International Ratio 1.2 Normal [facility] Comment on above: Result Comment: [employer] (CHEST, 1992, [id number]) recommended therapeutic range for oral anticoagulant therapy is: LOW RISK: Prophylaxis of venous thrombosis INR: 2.0-3.0 Treatment of pulmonary embolism 2.0-3.0 Prevention of systemic embolism 2.0-3.0 HIGH RISK: Mechanical prosthetic valves 2.5-3.5 Performed By: #### M DW, MG, GFR, BMP, CBC, ANEU, TROPHS, ADIFF #### [address] [address] .GFRon 01-11-2025 Estimated Glomerular Filtration Rate 44 ml/min/1.73sqm Normal [facility] Comment on above: Result Comment: Stages of [...] GFR, BMP, CBC, ANEU, TROPHS, ADIFF #### [place] [id number] [place], [place] [address] BMPon 01-11-2025 BUN/Creatinine Ratio 21 ratio Normal 7-27 [facility] Comment on above: Performed By: #### M DW, MG, GFR, BMP, CBC, ANEU, TROPHS, ADIFF #### [place] [address] Calcium [Mass/Vol] 9.3 mg/dL Normal 8.4-10.2 [facility] Comment on above: Performed By: #### M DW, MG, GFR, BMP, CBC, ANEU, TROPHS, ADIFF #### [place] [address] Chloride [Moles/Vol] 104 mmol/L Normal 98-107 [facility] Comment on above: Performed By: #### M DW, MG, GFR, BMP, CBC, ANEU, TROPHS, ADIFF #### [place] [address] CO2 [Moles/Vol] 34 mmol/L High 23-31 [facility] Comment on above: Performed By: #### M DW, MG, GFR, BMP, CBC, ANEU, TROPHS, ADIFF #### [place] [address] Creatinine [Mass/Vol] 1.23 mg/dL High 0.51-0.95 [facility] Comment on above: Performed By: #### M DW, MG, GFR, BMP, CBC, ANEU, TROPHS, ADIFF #### [place] [address] Electrolyte Balance 5.0 mEq/L Normal 4.0-15.0 [facility] Comment on above: Performed By: #### M DW, MG, GFR, BMP, CBC, ANEU, TROPHS, ADIFF #### [place] [address] Glucose [Mass/Vol] 91 mg/dL Normal 83-110 [facility] Comment on above: Performed By: #### M DW, MG, GFR, BMP, CBC, ANEU, TROPHS, ADIFF #### [place] [id number] [place], [place] [address] Potassium [Moles/Vol] 4.5 mmol/L Normal 3.5-5.1 [facility] Comment on above: Performed By: #### M DW, MG, GFR, BMP, CBC, ANEU, TROPHS, ADIFF #### [place] [id number] [place], [place] [address] Sodium [Moles/Vol] 143 mmol/L Normal 136-145 [facility] Comment on above: Performed By: #### M DW, MG, GFR, BMP, CBC, ANEU, TROPHS, ADIFF #### [place] [id number] [place], [place] [address] Urea nitrogen [Mass/Vol] 26 mg/dL High 7-18 [facility] Comment on above: Performed By: #### M DW, MG, GFR, BMP, CBC, ANEU, TROPHS, ADIFF #### [address] [address] LABORATORYOrdered By: SYSTEM SYSTEM on 01-11-2025 Calcium [...] 01-11-2025 Magnesium [Mass/Vol] 2.2 mg/dL Normal 1.8-2.4 [facility] Comment on above: Performed By: #### M DW, MG, GFR, BMP, CBC, ANEU, TROPHS, ADIFF #### [address] [address] .Auto Diffon 01-01-2025 Basophil, Absolute 0.1 10 3/mcL Normal 0.0-0.3 [facility] Comment on above: Performed By: #### A COLLIN, GFR, CMP, PBNP, CBC, TSH, ADIFF #### [address] [address] Basophils/100 WBC (Bld) 1.3 % Normal 0.0-2.5 [facility] Comment on above: Performed By: #### A COLLIN, GFR, CMP, PBNP, CBC, TSH, ADIFF #### [address] [address] Eosinophil, Absolute 0.3 10 3/mcL Normal 0.0-0.7 [facility] Comment on above: Performed By: #### A COLLIN, GFR, CMP, PBNP, CBC, TSH, ADIFF #### [address] [address] Eosinophils/100 WBC (Bld) 3.4 % Normal 0.0-6.0 [facility] Comment on above: Performed By: #### A COLLIN, GFR, CMP, PBNP, CBC, TSH, ADIFF #### [address] [address] Lymphocyte, Absolute 1.3 10 3/mcL Normal 0.9-4.3 [facility] Comment on above: Performed By: #### A COLLIN, GFR, CMP, PBNP, CBC, TSH, ADIFF #### [address] [address] Lymphocytes/100 WBC (Bld) 13.7 % Low 20.0-40.0 [facility] Comment on above: Performed By: #### A COLLIN, GFR, CMP, PBNP, CBC, TSH, ADIFF #### [address] [address] Monocyte, Absolute 1.0 10 3/mcL Normal 0.1-1.4 [facility] Comment on above: Performed By: #### A COLLIN, GFR, CMP, PBNP, CBC, TSH, ADIFF #### [address] [address] Monocytes/100 WBC (Bld) 11.1 % Normal 2.0-13.0 [facility] Comment on above: Performed By: #### A COLLIN, GFR, CMP, PBNP, CBC, TSH, ADIFF #### [address] [address] Neutrophils/100 WBC (Bld) 70.5 % Normal 50.0-75.0 [facility] Comment on above: Performed By: #### A COLLIN, GFR, CMP, PBNP, CBC, TSH, ADIFF #### [address] [address] .GFRon 01-01-2025 Estimated Glomerular Filtration Rate 43 ml/min/1.73sqm Normal [facility] Comment on above: Result Comment: Stages of [...] GFR, BMP, CBC, ANEU, TROPHS, ADIFF #### [address] [address] .NEUABSon 01-01-2025 Neutrophil, Absolute 6.5 10 3/mcL Normal 2.3-8.1 [facility] Comment on above: Performed By: #### M DW, MG, GFR, BMP, CBC, ANEU, TROPHS, ADIFF #### [address] [address] CBCon 01-01-2025 Erythrocyte distribution width (RBC) [Ratio] 15.0 % Normal 11.5-15.5 [facility] Comment on above: Performed By: #### A COLLIN, GFR, CMP, PBNP, CBC, TSH, ADIFF #### [address] [address] Hematocrit (Bld) [Volume fraction] 43.3 % Normal 34.0-46.0 [facility] Comment on above: Performed By: #### A COLLIN, GFR, CMP, PBNP, CBC, TSH, ADIFF #### [address] [address] Hgb 14.3 G/dL Normal 12.0-16.0 [facility] Comment on above: Performed By: #### A COLLIN, GFR, CMP, PBNP, CBC, TSH, ADIFF #### [address] [address] MCH (RBC) [Entitic mass] 27.9 pg Normal 27.0-33.0 [facility] Comment on above: Performed By: #### A COLLIN, GFR, CMP, PBNP, CBC, TSH, ADIFF #### [address] [address] MCHC 33.0 G/dL Normal 32.0-36.0 [facility] Comment on above: Performed By: #### A COLLIN, GFR, CMP, PBNP, CBC, TSH, ADIFF #### [address] [address] MCV (RBC) [Entitic vol] 84.5 fL Normal 80.0-99.0 [facility] Comment on above: Performed By: #### A COLLIN, GFR, CMP, PBNP, CBC, TSH, ADIFF #### [address] [address] Platelet 293 10 3/mcL Normal 150-450 [facility] Comment on above: Performed By: #### A COLLIN, GFR, CMP, PBNP, CBC, TSH, ADIFF #### [address] [address] Platelet mean volume (Bld) [Entitic vol] 8.3 fL Normal 6.6-10.5 [facility] Comment on above: Performed By: #### A COLLIN, GFR, CMP, PBNP, CBC, TSH, ADIFF #### [address] [address] RBC 5.13 10 6/mcL Normal 4.10-5.30 [facility] Comment on above: Performed By: #### A COLLIN, GFR, CMP, PBNP, CBC, TSH, ADIFF #### [address] [address] WBC 9.2 10 3/mcL Normal 4.5-10.8 [facility] Comment on above: Performed By: #### A COLLIN, GFR, CMP, PBNP, CBC, TSH, ADIFF #### [place] [id number] CMPon 01-01-2025 Albumin Level 3.7 G/dL Normal 3.4-4.8 [facility] Comment on above: Performed By: #### M DW, MG, GFR, BMP, CBC, ANEU, TROPHS, ADIFF #### [address] [address] Albumin/Globulin [Mass ratio] 1.0 {ratio} Low 1.1-2.5 [facility] Comment on above: Performed By: #### M DW, MG, GFR, BMP, CBC, ANEU, TROPHS, ADIFF #### [address] [address] ALP [Catalytic activity/Vol] 96 U/L Normal 40-135 [facility] Comment on above: Performed By: #### M DW, MG, GFR, BMP, CBC, ANEU, TROPHS, ADIFF #### [address] [address] ALT [Catalytic activity/Vol] 21 U/L Normal 14-59 [facility] Comment on above: Performed By: #### M DW, MG, GFR, BMP, CBC, ANEU, TROPHS, ADIFF #### [address] [address] AST [Catalytic activity/Vol] 12 U/L Normal 10-40 [facility] Comment on above: Performed By: #### M DW, MG, GFR, BMP, CBC, ANEU, TROPHS, ADIFF #### [address] [address] Bili Total 0.3 mg/dL Normal 0.2-1.0 [facility] Comment on above: Result Comment: Use of this assay is not recommended for patients undergoing treatment with eltrombopag due to the potential for falsely elevated results. Performed By: #### M DW, MG, GFR, BMP, CBC, ANEU, TROPHS, ADIFF #### [address] [address] BUN/Creatinine Ratio 21 ratio Normal 7-27 [facility] Comment on above: Performed By: #### M DW, MG, GFR, BMP, CBC, ANEU, TROPHS, ADIFF #### [address] [address] Calcium [Mass/Vol] 9.3 mg/dL Normal 8.4-10.2 [facility] Comment on above: Performed By: #### M DW, MG, GFR, BMP, CBC, ANEU, TROPHS, ADIFF #### [place] [address] Chloride [Moles/Vol] 104 mmol/L Normal 98-107 [facility] Comment on above: Performed By: #### M DW, MG, GFR, BMP, CBC, ANEU, TROPHS, ADIFF #### [place] [address] CO2 [Moles/Vol] 32 mmol/L High 23-31 [facility] Comment on above: Performed By: #### M DW, MG, GFR, BMP, CBC, ANEU, TROPHS, ADIFF #### [place] [address] Creatinine [Mass/Vol] 1.26 mg/dL High 0.51-0.95 [facility] Comment on above: Performed By: #### M DW, MG, GFR, BMP, CBC, ANEU, TROPHS, ADIFF #### [place] [address] Electrolyte Balance 7.0 mEq/L Normal 4.0-15.0 [facility] Comment on above: Performed By: #### M DW, MG, GFR, BMP, CBC, ANEU, TROPHS, ADIFF #### [place] [address] Globulin 3.6 G/dL Normal 2.7-4.4 [facility] Comment on above: Performed By: #### M DW, MG, GFR, BMP, CBC, ANEU, TROPHS, ADIFF #### [place] [address] Glucose [Mass/Vol] 55 mg/dL Low 83-110 [facility] Comment on above: Performed By: #### M DW, MG, GFR, BMP, CBC, ANEU, TROPHS, ADIFF #### [address] [address] Potassium [Moles/Vol] 4.4 mmol/L Normal 3.5-5.1 [facility] Comment on above: Performed By: #### M DW, MG, GFR, BMP, CBC, ANEU, TROPHS, ADIFF #### [address] [address] Sodium [Moles/Vol] 143 mmol/L Normal 136-145 [facility] Comment on above: Performed By: #### M DW, MG, GFR, BMP, CBC, ANEU, TROPHS, ADIFF #### [address] [address] Total Protein 7.3 G/dL Normal 6.4-8.2 [facility] Comment on above: Performed By: #### M DW, MG, GFR, BMP, CBC, ANEU, TROPHS, ADIFF #### [address] [address] Urea nitrogen [Mass/Vol] 26 mg/dL High 7-18 [facility] Comment on above: Performed By: #### M DW, MG, GFR, BMP, CBC, ANEU, TROPHS, ADIFF #### [address] [address] LABORATORYOrdered By: Óscar Srivastava on 01-01-2025 Color [...] B (Bld) [Mass/Vol] 1625 pg/mL High 0-450 [facility] Comment on above: Result Comment: NT-p roBNP results of less than 300 pg/mL effectively rules out acute congestive heart failure with 99% negative predictive value. Performed By: #### M DW, MG, GFR, BMP, CBC, ANEU, TROPHS, ADIFF #### [address] [address] TSHon 01-01-2025 TSH Qn 1.75 m[IU]/L Normal 0.36-3.74 [facility] Comment on above: Performed By: #### M DW, MG, GFR, BMP, CBC, ANEU, TROPHS, ADIFF #### [address] [address] UAon 01-01-2025 Color (U) Yellow Normal Yellow [facility] Comment on above: Performed By: #### M DW, MG, GFR, BMP, CBC, ANEU, TROPHS, ADIFF #### [address] [address] Glucose (U) [Mass/Vol] mg/dL Abnormal Negative [facility] Comment on above: Performed By: #### M DW, MG, GFR, BMP, CBC, ANEU, TROPHS, ADIFF #### [address] [address] Ketones Ql (U) Negative Normal Negative [facility] Comment on above: Performed By: #### M DW, MG, GFR, BMP, CBC, ANEU, TROPHS, ADIFF #### [address] [address] UA Appear Clear Normal Clear [facility] Comment on above: Performed By: #### M DW, MG, GFR, BMP, CBC, ANEU, TROPHS, ADIFF #### [address] [address] UA Blood Negative Normal Negative [facility] Comment on above: Performed By: #### M DW, MG, GFR, BMP, CBC, ANEU, TROPHS, ADIFF #### [address] [address] UA Leuk Est Negative Normal Negative [facility] Comment on above: Performed By: #### M DW, MG, GFR, BMP, CBC, ANEU, TROPHS, ADIFF #### [place] [address] UA Nitrite Negative Normal Negative [facility] Comment on above: Performed By: #### M DW, MG, GFR, BMP, CBC, ANEU, TROPHS, ADIFF #### [address] [address] UA pH 6.0 Normal 5.0 - 8.0 [facility] Comment on above: Performed By: #### M DW, MG, GFR, BMP, CBC, ANEU, TROPHS, ADIFF #### [address] [address] UA Protein Negative Normal Negative [facility] Comment on above: Performed By: #### M DW, MG, GFR, BMP, CBC, ANEU, TROPHS, ADIFF #### [address] [address] UA Spec Grav 1.015 Normal 1.015-1.025 [facility] Comment on above: Performed By: #### M DW, MG, GFR, BMP, CBC, ANEU, TROPHS, ADIFF #### [place] [address] UA Specimen Type Clean Catch Normal [facility] Comment on above: Performed By: #### M DW, MG, GFR, BMP, CBC, ANEU, TROPHS, ADIFF #### [place] [address] UA Urobilinogen 0.2 E.U./dL Normal 0.2-1.0 [facility] Comment on above: Performed By: #### M DW, MG, GFR, BMP, CBC, ANEU, TROPHS, ADIFF #### [address] [address] Urobilinogen (U) [Mass/Vol] Negative Normal Negative [facility] Comment on above: Performed By: #### M DW, MG, GFR, BMP, CBC, ANEU, TROPHS, ADIFF #### [place] [address] XR CHEST 2 VIEWSon 5 XR CHEST [...] DIEHL [facility] .GFRon 09-12-2024 Estimated Glomerular Filtration Rate 49 ml/min/1.73sqm [facility] Comment on above: Result Comment: Stages of [...] GFR, CMP, PBNP, CBC, TSH, ADIFF #### [facility] [address] [place], [place] [address] BMPon 09-12-2024 BUN/Creatinine Ratio 22 ratio Normal 7-27 [facility] Comment on above: Performed By: #### A COLLIN, GFR, CMP, PBNP, CBC, TSH, ADIFF #### [facility] [address] [place], [place] [address] Calcium [Mass/Vol] 8.5 mg/dL Normal 8.4-10.2 [facility] Comment on above: Performed By: #### A COLLIN, GFR, CMP, PBNP, CBC, TSH, ADIFF #### [place] [address] Chloride [Moles/Vol] 103 mmol/L Normal 98-107 [facility] Comment on above: Performed By: #### A COLLIN, GFR, CMP, PBNP, CBC, TSH, ADIFF #### [place] [address] CO2 [Moles/Vol] 30 mmol/L Normal 23-31 [facility] Comment on above: Performed By: #### A COLLIN, GFR, CMP, PBNP, CBC, TSH, ADIFF #### [place] [address] Creatinine [Mass/Vol] 1.12 mg/dL High 0.51-0.95 [facility] Comment on above: Performed By: #### A COLLIN, GFR, CMP, PBNP, CBC, TSH, ADIFF #### [place] [address] Electrolyte Balance 7.0 mEq/L Normal 4.0-15.0 [facility] Comment on above: Performed By: #### A COLLIN, GFR, CMP, PBNP, CBC, TSH, ADIFF #### [place] [address] Glucose [Mass/Vol] 84 mg/dL Normal 83-110 [facility] Comment on above: Performed By: #### A COLLIN, GFR, CMP, PBNP, CBC, TSH, ADIFF #### [place] [address] Potassium [Moles/Vol] 4.1 mmol/L Normal 3.5-5.1 [facility] Comment on above: Performed By: #### A COLLIN, GFR, CMP, PBNP, CBC, TSH, ADIFF #### [place] [address] Sodium [Moles/Vol] 140 mmol/L Normal 136-145 [facility] Comment on above: Performed By: #### A COLLIN, GFR, CMP, PBNP, CBC, TSH, ADIFF #### [facility] [address] [place], [place] [address] Urea nitrogen [Mass/Vol] 25 mg/dL High 7-18 [facility] Comment on above: Performed By: #### A COLLIN, GFR, CMP, PBNP, CBC, TSH, ADIFF #### [place] [address] [place], [place] [address] CAIONon 09-12-2024 Calcium Ionized 1.10 mmol/L Low 1.12-1.32 [facility] Comment on above: Performed By: #### A COLLIN, GFR, CMP, PBNP, CBC, TSH, ADIFF #### [place] [address] [place], [place] [address] LABORATORYOrdered By: SYSTEM SYSTEM on 09-12-2024 25-hydroxyvitamin [...] 09-12-2024 Magnesium [Mass/Vol] 2.3 mg/dL Normal 1.8-2.4 [facility] Comment on above: Performed By: #### A COLLIN, GFR, CMP, PBNP, CBC, TSH, ADIFF #### [address] [address] PHOSon 09-12-2024 Phosphate [Mass/Vol] 4.2 mg/dL High 2.3-4.1 [facility] Comment on above: Performed By: #### A COLLIN, GFR, CMP, PBNP, CBC, TSH, ADIFF #### [address] [address] VIDHon 09-12-2024 Vit. D 25-Hydroxy 17.6 ng/mL Normal [facility] Comment on above: Result Comment: Inte rpretive Values Based on Total 25(OH) Vitamin D: Deficient <20 ng/mL Insufficient 20 - <30 ng/mL Sufficient 30-100 ng/mL Performed By: #### A COLLIN, GFR, CMP, PBNP, CBC, TSH, ADIFF #### [place] [address] [address] .Auto Diffon 09-01-2024 Basophil, Absolute 0.1 10 3/mcL Normal 0.0-0.3 [facility] Comment on above: Performed By: #### G FR, BMP #### [address] [address] Basophils/100 WBC (Bld) 0.9 % Normal 0.0-2.5 [facility] Comment on above: Performed By: #### G FR, BMP #### [address] [address] Eosinophil, Absolute 0.3 10 3/mcL Normal 0.0-0.7 [facility] Comment on above: Performed By: #### G FR, BMP #### [address] [address] Eosinophils/100 WBC (Bld) 3.5 % Normal 0.0-6.0 [facility] Comment on above: Performed By: #### G FR, BMP #### [address] [address] Lymphocyte, Absolute 0.9 10 3/mcL Normal 0.9-4.3 [facility] Comment on above: Performed By: #### G FR, BMP #### [address] [address] Lymphocytes/100 WBC (Bld) 11.9 % Low 20.0-40.0 [facility] Comment on above: Performed By: #### G FR, BMP #### [address] [address] Monocyte, Absolute 0.9 10 3/mcL Normal 0.1-1.4 [facility] Comment on above: Performed By: #### G FR, BMP #### [address] [address] Monocytes/100 WBC (Bld) 12.2 % Normal 2.0-13.0 [facility] Comment on above: Performed By: #### G , BMP #### [address] [address] Neutrophils/100 WBC (Bld) 71.5 % Normal 50.0-75.0 [facility] Comment on above: Performed By: #### Ed WAGNER, BMP #### [address] [address] .GFRon 09-01-2024 Estimated Glomerular Filtration Rate 45 ml/min/1.73sqm Normal [facility] Comment on above: Result Comment: [...] By: #### G , BMP #### [address] [address] .NEUABSon 09-01-2024 Neutrophil, Absolute 5.4 10 3/mcL Normal 2.3-8.1 [facility] Comment on above: Performed By: #### Ed , BMP #### [address] [address] [facility] BUN/Creatinine Ratio 22.5 ratio High 10.0-22.0 [facility] Comment on above: Performed By: #### Ed WAGNER, BMP #### [address] [address] Calcium [Mass/Vol] 7.5 mg/dL Low 8.7-10.4 [facility] Comment on above: Performed By: #### dE WAGNER, BMP #### [address] [address] Chloride [Moles/Vol] 100 mmol/L Normal 98-110 [facility] Comment on above: Performed By: #### Ed WAGNER, BMP #### [address] [address] CO2 [Moles/Vol] 30 mmol/L Normal 22-32 [facility] Comment on above: Performed By: #### G FR, BMP #### [address] [address] Creatinine [Mass/Vol] 1.20 mg/dL Normal 0.50-1.20 [facility] Comment on above: Result Comment: Test ing performed on [employer] Virtual analyzer using enzymatic creatinine methodology. Performed By: #### Ed WAGNER, BMP #### [place] [id number] Electrolyte Balance 7.0 mEq/L Normal 4.0-15.0 [facility] Comment on above: Performed By: #### Ed WAGNER, BMP #### [place] [id number] Glucose [Mass/Vol] 84 mg/dL Normal 82-115 [facility] Comment on above: Performed By: #### Ed WAGNER, BMP #### [address] [address] Potassium [Moles/Vol] 3.8 mmol/L Normal 3.5-5.0 [facility] Comment on above: Performed By: #### dE WAGNER, BMP #### [address] [address] Sodium [Moles/Vol] 137 mmol/L Normal 136-145 [facility] Comment on above: Performed By: #### Ed FR, BMP #### [address] [address] Urea nitrogen [Mass/Vol] 27.0 mg/dL High 8.0-22.0 [facility] Comment on above: Performed By: #### G FR, BMP #### [address] [address] CBCon 09-01-2024 Erythrocyte distribution width (RBC) [Ratio] 13.6 % Normal 11.5-15.5 [facility] Comment on above: Performed By: #### G FR, BMP #### [place] [address] Hematocrit (Bld) [Volume fraction] 32.8 % Low 34.0-46.0 [facility] Comment on above: Performed By: #### G FR, BMP #### [place] [address] Hgb 11.3 G/dL Low 12.0-16.0 [facility] Comment on above: Performed By: #### G FR, BMP #### [place] [address] MCH (RBC) [Entitic mass] 30.1 pg Normal 27.0-33.0 [facility] Comment on above: Performed By: #### G FR, BMP #### [place] [address] MCHC 34.4 G/dL Normal 32.0-36.0 [facility] Comment on above: Performed By: #### G FR, BMP #### [place] [address] MCV (RBC) [Entitic vol] 87.4 fL Normal 80.0-99.0 [facility] Comment on above: Performed By: #### G FR, BMP #### [place] [address] Platelet 284 10 3/mcL Normal 150-450 [facility] Comment on above: Performed By: #### G FR, BMP #### [place] [address] Platelet mean volume (Bld) [Entitic vol] 8.2 fL Normal 6.6-10.5 [facility] Comment on above: Performed By: #### G FR, BMP #### [place] [address] RBC 3.75 10 6/mcL Low 4.10-5.30 [facility] Comment on above: Performed By: #### G FR, BMP #### [place] [address] WBC 7.6 10 3/mcL Normal 4.5-10.8 [facility] Comment on above: Performed By: #### G FR, BMP #### [address] [address] MGon 09-01-2024 Magnesium [Mass/Vol] 2.5 mg/dL High 1.6-2.4 [facility] Comment on above: Performed By: #### G FR, BMP #### [address] [address] .Auto Diffon 08-31-2024 Basophil, Absolute 0.1 10 3/mcL Normal 0.0-0.3 [facility] Comment on above: Performed By: #### A COLLIN, MG, BMP, ADIFF, GFR, CBC, HFP #### [address] [address] Basophils/100 WBC (Bld) 1.2 % Normal 0.0-2.5 [facility] Comment on above: Performed By: #### A COLLIN, MG, BMP, ADIFF, GFR, CBC, HFP #### [address] [address] Eosinophil, Absolute 0.3 10 3/mcL Normal 0.0-0.7 [facility] Comment on above: Performed By: #### A COLLIN, MG, BMP, ADIFF, GFR, CBC, HFP #### [address] [address] Eosinophils/100 WBC (Bld) 3.4 % Normal 0.0-6.0 [facility] Comment on above: Performed By: #### A COLLIN, MG, BMP, ADIFF, GFR, CBC, HFP #### [address] [address] Lymphocyte, Absolute 1.1 10 3/mcL Normal 0.9-4.3 [facility] Comment on above: Performed By: #### A COLLIN, MG, BMP, ADIFF, GFR, CBC, HFP #### [address] [address] Lymphocytes/100 WBC (Bld) 13.9 % Low 20.0-40.0 [facility] Comment on above: Performed By: #### A COLLIN, MG, BMP, ADIFF, GFR, CBC, HFP #### [address] [address] Monocyte, Absolute 1.0 10 3/mcL Normal 0.1-1.4 [facility] Comment on above: Performed By: #### A COLLIN, MG, BMP, ADIFF, GFR, CBC, HFP #### [address] [address] Monocytes/100 WBC (Bld) 12.2 % Normal 2.0-13.0 [facility] Comment on above: Performed By: #### A COLLIN, MG, BMP, ADIFF, GFR, CBC, HFP #### [address] [address] Neutrophils/100 WBC (Bld) 69.3 % Normal 50.0-75.0 [facility] Comment on above: Performed By: #### A COLLIN, MG, BMP, ADIFF, GFR, CBC, HFP #### [place] [id number] .GFRon 08-31-2024 Estimated Glomerular Filtration Rate 39 ml/min/1.73sqm Normal [facility] Comment on above: Result Comment: [...] BMP, ADIFF, GFR, CBC, HFP #### [address] [address] .NEUABSon 08-31-2024 Neutrophil, Absolute 5.4 10 3/mcL Normal 2.3-8.1 [facility] Comment on above: Performed By: #### A COLLIN, MG, BMP, ADIFF, GFR, CBC, HFP #### [address] [address] BMPon 08-31-2024 BUN/Creatinine Ratio 23.0 ratio High 10.0-22.0 [facility] Comment on above: Performed By: #### A COLLIN, MG, BMP, ADIFF, GFR, CBC, HFP #### [place] [id number] Calcium [Mass/Vol] 7.5 mg/dL Low 8.7-10.4 [facility] Comment on above: Performed By: #### A COLLIN, MG, BMP, ADIFF, GFR, CBC, HFP #### [place] [address] Chloride [Moles/Vol] 101 mmol/L Normal 98-110 [facility] Comment on above: Performed By: #### A COLLIN, MG, BMP, ADIFF, GFR, CBC, HFP #### [place] [id number] CO2 [Moles/Vol] 30 mmol/L Normal 22-32 [facility] Comment on above: Performed By: #### A COLLIN, MG, BMP, ADIFF, GFR, CBC, HFP #### [place] [address] Creatinine [Mass/Vol] 1.35 mg/dL High 0.50-1.20 [facility] Comment on above: Result Comment: Test ing performed on Official Limited Virtual analyzer using enzymatic creatinine methodology. Performed By: #### A COLLIN, MG, BMP, ADIFF, GFR, CBC, HFP #### [place] [id number] Electrolyte Balance 8.0 mEq/L Normal 4.0-15.0 [facility] Comment on above: Performed By: #### A COLLIN, MG, BMP, ADIFF, GFR, CBC, HFP #### [place] [id number] Glucose [Mass/Vol] 87 mg/dL Normal 82-115 [facility] Comment on above: Performed By: #### A COLLIN, MG, BMP, ADIFF, GFR, CBC, HFP #### [place] [id number] Potassium [Moles/Vol] 3.9 mmol/L Normal 3.5-5.0 [facility] Comment on above: Performed By: #### A COLLIN, MG, BMP, ADIFF, GFR, CBC, HFP #### [place] [id number] Sodium [Moles/Vol] 139 mmol/L Normal 136-145 [facility] Comment on above: Performed By: #### A COLLIN, MG, BMP, ADIFF, GFR, CBC, HFP #### [place] [address] Urea nitrogen [Mass/Vol] 31.0 mg/dL High 8.0-22.0 [facility] Comment on above: Performed By: #### A COLLIN, MG, BMP, ADIFF, GFR, CBC, HFP #### [place] [id number] CBCon 08-31-2024 Erythrocyte distribution width (RBC) [Ratio] 13.4 % Normal 11.5-15.5 [facility] Comment on above: Performed By: #### A COLLIN, MG, BMP, ADIFF, GFR, CBC, HFP #### [place] [address] Hematocrit (Bld) [Volume fraction] 33.4 % Low 34.0-46.0 [facility] Comment on above: Performed By: #### A COLLIN, MG, BMP, ADIFF, GFR, CBC, HFP #### [place] [address] Hgb 11.2 G/dL Low 12.0-16.0 [facility] Comment on above: Performed By: #### A COLLIN, MG, BMP, ADIFF, GFR, CBC, HFP #### [place] [address] MCH (RBC) [Entitic mass] 29.9 pg Normal 27.0-33.0 [facility] Comment on above: Performed By: #### A COLLIN, MG, BMP, ADIFF, GFR, CBC, HFP #### [address] [address] MCHC 33.5 G/dL Normal 32.0-36.0 [facility]IN Comment on above: Performed By: #### A COLLIN, MG, BMP, ADIFF, GFR, CBC, HFP #### [place] [address] MCV (RBC) [Entitic vol] 89.5 fL Normal 80.0-99.0 [facility] Comment on above: Performed By: #### A COLLIN, MG, BMP, ADIFF, GFR, CBC, HFP #### [place] [address] Platelet 271 10 3/mcL Normal 150-450 [facility] Comment on above: Performed By: #### A COLLIN, MG, BMP, ADIFF, GFR, CBC, HFP #### [place] [address] Platelet mean volume (Bld) [Entitic vol] 7.9 fL Normal 6.6-10.5 [facility] Comment on above: Performed By: #### A COLLIN, MG, BMP, ADIFF, GFR, CBC, HFP #### [place] [id number] RBC 3.73 10 6/mcL Low 4.10-5.30 [facility] Comment on above: Performed By: #### A COLLIN, MG, BMP, ADIFF, GFR, CBC, HFP #### [place] [id number] WBC 7.8 10 3/mcL Normal 4.5-10.8 [facility] Comment on above: Performed By: #### A COLLIN, MG, BMP, ADIFF, GFR, CBC, HFP #### [place] [address] MGon 08-31-2024 Magnesium [Mass/Vol] 2.5 mg/dL High 1.6-2.4 [facility] Comment on above: Performed By: #### A COLLIN, MG, BMP, ADIFF, GFR, CBC, HFP #### [address] [address] .GFRon 08-30-2024 Estimated Glomerular Filtration Rate 34 ml/min/1.73sqm [facility] MAIN Comment on above: Result Comment: [...] Performed By: #### G FR, BMP #### [place] [address] Estimated Glomerular Filtration Rate 42 ml/min/1.73sqm [facility] MAIN Comment on above: Result Comment: [...] BMP, ADIFF, GFR, CBC, HFP #### [address] [address] [facility] BUN/Creatinine Ratio 21.3 ratio Normal 10.0-22.0 [facility] Comment on above: Performed By: #### A COLLIN, MG, BMP, ADIFF, GFR, CBC, HFP #### [place] [address] Calcium [Mass/Vol] 7.9 mg/dL Low 8.7-10.4 [facility]IN Comment on above: Performed By: #### A COLLIN, MG, BMP, ADIFF, GFR, CBC, HFP #### [address] [address] Chloride [Moles/Vol] 102 mmol/L Normal 98-110 [facility] Comment on above: Performed By: #### A COLLIN, MG, BMP, ADIFF, GFR, CBC, HFP #### [address] [address] CO2 [Moles/Vol] 28 mmol/L Normal 22-32 [facility] Comment on above: Performed By: #### A COLLIN, MG, BMP, ADIFF, GFR, CBC, HFP #### [address] [address] Creatinine [Mass/Vol] 1.27 mg/dL High 0.50-1.20 [facility] Comment on above: Result Comment: Test ing performed on Official Limited Virtual analyzer using enzymatic creatinine methodology. Performed By: #### A COLLIN, MG, BMP, ADIFF, GFR, CBC, HFP #### [place] [id number] Electrolyte Balance 9.0 mEq/L Normal 4.0-15.0 [facility] Comment on above: Performed By: #### A COLLIN, MG, BMP, ADIFF, GFR, CBC, HFP #### [address] [address] Glucose [Mass/Vol] 90 mg/dL Normal 82-115 [facility] Comment on above: Performed By: #### A COLLIN, MG, BMP, ADIFF, GFR, CBC, HFP #### [address] [address] Potassium [Moles/Vol] 4.0 mmol/L Normal 3.5-5.0 [facility] Comment on above: Performed By: #### A COLLIN, MG, BMP, ADIFF, GFR, CBC, HFP #### [place] [id number] Sodium [Moles/Vol] 139 mmol/L Normal 136-145 [facility] Comment on above: Performed By: #### A COLLIN, MG, BMP, ADIFF, GFR, CBC, HFP #### [place] [id number] Urea nitrogen [Mass/Vol] 27.0 mg/dL High 8.0-22.0 [facility] Comment on above: Performed By: #### A COLLIN, MG, BMP, ADIFF, GFR, CBC, HFP #### [address] [address] CMPon 08-30-2024 Albumin Level 3.4 G/dL Normal 3.2-4.8 [facility] Comment on above: Performed By: #### G FR, BMP #### [place] [id number] Albumin/Globulin [Mass ratio] 1.2 {ratio} Normal 0.9-1.6 [facility] Comment on above: Performed By: #### G FR, BMP #### [place] [id number] ALP [Catalytic activity/Vol] 74 U/L Normal 38-126 [facility] Comment on above: Performed By: #### G FR, BMP #### [place] [phone] ALT [Catalytic activity/Vol] 8 U/L Low 10-49 [facility] Comment on above: Performed By: #### G FR, BMP #### [place] [id number] AST [Catalytic activity/Vol] 13 U/L Normal 8-34 [facility] Comment on above: Performed By: #### G FR, BMP #### [place] [id number] Bili Total 0.30 mg/dL Normal 0.20-1.20 [facility] Comment on above: Result Comment: Use of this assay is not recommended for patients undergoing treatment with eltrombopag due to the potential for falsely elevated results. Performed By: #### G FR, BMP #### [place] [address] BUN/Creatinine Ratio 19.6 ratio Normal 10.0-22.0 [facility] Comment on above: Performed By: #### G FR, BMP #### [address] [address] Calcium [Mass/Vol] 7.6 mg/dL Low 8.7-10.4 [facility] Comment on above: Performed By: #### G FR, BMP #### [address] [address] Chloride [Moles/Vol] 101 mmol/L Normal 98-110 [facility] Comment on above: Performed By: #### G FR, BMP #### [address] [address] CO2 [Moles/Vol] 27 mmol/L Normal 22-32 [facility] Comment on above: Performed By: #### Ed FR, BMP #### [place] [phone] Creatinine [Mass/Vol] 1.53 mg/dL High 0.50-1.20 [facility] Comment on above: Result Comment: Test ing performed on Official Limited Virtual analyzer using enzymatic creatinine methodology. Performed By: #### Ed FR, BMP #### [address] [address] Electrolyte Balance 9.0 mEq/L Normal 4.0-15.0 [facility] Comment on above: Performed By: #### G FR, BMP #### [address] [address] Globulin 2.8 G/dL Normal 2.5-4.2 [facility] Comment on above: Performed By: #### G FR, BMP #### [address] [address] Glucose [Mass/Vol] 102 mg/dL Normal 82-115 [facility] Comment on above: Performed By: #### G FR, BMP #### [address] [address] Potassium [Moles/Vol] 3.9 mmol/L Normal 3.5-5.0 [facility] Comment on above: Performed By: #### G FR, BMP #### [address] [address] Sodium [Moles/Vol] 137 mmol/L Normal 136-145 [facility] MAIN Comment on above: Performed By: #### G FR, BMP #### [address] [address] Total Protein 6.2 G/dL Normal 5.7-8.2 [facility] Comment on above: Performed By: #### G FR, BMP #### [address] [address] Urea nitrogen [Mass/Vol] 30.0 mg/dL High 8.0-22.0 [facility] Comment on above: Performed By: #### G FR, BMP #### [address] [address] MGon 08-30-2024 Magnesium [Mass/Vol] 2.4 mg/dL Normal 1.6-2.4 [facility] Comment on above: Performed By: #### C MP, MG, GFR #### [address] [address] Magnesium [Mass/Vol] 2.8 mg/dL High 1.6-2.4 [facility] Comment on above: Performed By: #### A COLLIN, MG, BMP, ADIFF, GFR, CBC, HFP #### [address] [address] [place] MYOCARDIAL SPECT STRESS/R ESTon 08-30-2024 NM [...] Date: 08/30/2024 3:24:08 PM Ordering Provider:Harry Bailon [facility] MAIN .GFRon 08-29-2024 Estimated Glomerular Filtration Rate 43 ml/min/1.73sqm [facility] MAIN Comment on above: Result Comment: [...] BMP, ADIFF, GFR, CBC, HFP #### [address] [address] [facility] 08-29-2024 BUN/Creatinine Ratio 23.2 ratio High 10.0-22.0 [facility] Comment on above: Performed By: #### A COLLIN, MG, BMP, ADIFF, GFR, CBC, HFP #### [address] [address] Calcium [Mass/Vol] 8.4 mg/dL Low 8.7-10.4 [facility]IN Comment on above: Performed By: #### A COLLIN, MG, BMP, ADIFF, GFR, CBC, HFP #### [address] [address] Chloride [Moles/Vol] 103 mmol/L Normal 98-110 [facility] Comment on above: Performed By: #### A COLLIN, MG, BMP, ADIFF, GFR, CBC, HFP #### [address] [address] CO2 [Moles/Vol] 28 mmol/L Normal 22-32 [facility] Comment on above: Performed By: #### A COLLIN, MG, BMP, ADIFF, GFR, CBC, HFP #### [address] [address] Creatinine [Mass/Vol] 1.25 mg/dL High 0.50-1.20 [facility] Comment on above: Result Comment: Test ing performed on Official Limited Virtual analyzer using enzymatic creatinine methodology. Performed By: #### A COLLIN, MG, BMP, ADIFF, GFR, CBC, HFP #### [address] [address] Electrolyte Balance 10.0 mEq/L Normal 4.0-15.0 [facility] MAIN Comment on above: Performed By: #### A COLLIN, MG, BMP, ADIFF, GFR, CBC, HFP #### [address] [address] Glucose [Mass/Vol] 81 mg/dL Low 82-115 [facility] MAIN Comment on above: Performed By: #### A COLLIN, MG, BMP, ADIFF, GFR, CBC, HFP #### [address] [address] Potassium [Moles/Vol] 3.9 mmol/L Normal 3.5-5.0 [facility] Comment on above: Performed By: #### A COLLIN, MG, BMP, ADIFF, GFR, CBC, HFP #### [address] [address] Sodium [Moles/Vol] 141 mmol/L Normal 136-145 [facility]IN Comment on above: Performed By: #### A COLLIN, MG, BMP, ADIFF, GFR, CBC, HFP #### [address] [place] [address] Urea nitrogen [Mass/Vol] 29.0 mg/dL High 8.0-22.0 [facility] Comment on above: Performed By: #### A COLLIN, MG, BMP, ADIFF, GFR, CBC, HFP #### [facility] [address] [place] [address] MGon 08-29-2024 Magnesium [Mass/Vol] 2.3 mg/dL Normal 1.6-2.4 [facility] MAIN Comment on above: Performed By: #### A COLLIN, MG, BMP, ADIFF, GFR, CBC, HFP #### [address] [address] XR CHEST 1 VIEWon 08-29-2024 XR CHEST [...] 08/29/2024 5:31:45 PM Ordering Provider: ANASTASIYA JEFF [facility] MAIN .GFRon 08-28-2024 Estimated Glomerular Filtration Rate 49 ml/min/1.73sqm [facility] MAIN Comment on above: Result Comment: [...] By: #### Ed , BMP #### [address] [address] [facility] 08-28-2024 BUN/Creatinine Ratio 25.7 ratio High 10.0-22.0 [facility] Comment on above: Performed By: #### G , BMP #### [address] [address] Calcium [Mass/Vol] 8.8 mg/dL Normal 8.7-10.4 [facility] MAIN Comment on above: Performed By: #### Ed , BMP #### [address] [address] Chloride [Moles/Vol] 105 mmol/L Normal 98-110 [facility] Comment on above: Performed By: #### Ed , BMP #### [address] [address] CO2 [Moles/Vol] 28 mmol/L Normal 22-32 [facility] Comment on above: Performed By: #### Ed , BMP #### [address] [address] Creatinine [Mass/Vol] 1.13 mg/dL Normal 0.50-1.20 [facility] Comment on above: Result Comment: Test ing performed on Official Limited Virtual analyzer using enzymatic creatinine methodology. Performed By: #### G FR, BMP #### [address] [address] Electrolyte Balance 8.0 mEq/L Normal 4.0-15.0 [facility] Comment on above: Performed By: #### G FR, BMP #### [address] [address] Glucose [Mass/Vol] 86 mg/dL Normal 82-115 [facility] Comment on above: Performed By: #### G FR, BMP #### [address] [address] Potassium [Moles/Vol] 4.1 mmol/L Normal 3.5-5.0 [facility] Comment on above: Performed By: #### Ed WAGNER, BMP #### [address] [address] Sodium [Moles/Vol] 141 mmol/L Normal 136-145 [facility] Comment on above: Performed By: #### Ed WAGNER, BMP #### [address] [address] Urea nitrogen [Mass/Vol] 29.0 mg/dL High 8.0-22.0 [facility] Comment on above: Performed By: #### Ed WAGNER, BMP #### [address] [address] MGon 08-28-2024 Magnesium [Mass/Vol] 2.3 mg/dL Normal 1.6-2.4 [facility] MA[facility] Comment on above: Performed By: #### Ed , BMP #### [address] [address] .GFRon 08-27-2024 Estimated Glomerular Filtration Rate 49 ml/min/1.73sqm Normal [facility] MAIN Comment on above: Result Comment: [...] By: #### Ed WAGNER, BMP #### [address] [address] CMPon 08-27-2024 Albumin Level 3.7 G/dL Normal 3.2-4.8 [facility] Comment on above: Performed By: #### Ed FR, BMP #### [place] [address] Albumin/Globulin [Mass ratio] 1.4 {ratio} Normal 0.9-1.6 [facility] MAIN Comment on above: Performed By: #### G FR, BMP #### [place] [address] ALP [Catalytic activity/Vol] 80 U/L Normal 38-126 [facility] MAIN Comment on above: Performed By: #### G , BMP #### [place] [id number] ALT [Catalytic activity/Vol] 8 U/L Low 10-49 [facility] MAIN Comment on above: Performed By: #### Ed WAGNER, BMP #### [place] [address] AST [Catalytic activity/Vol] 13 U/L Normal 8-34 [facility] Comment on above: Performed By: #### Ed WAGNER, BMP #### [place] [address] Bili Total 0.20 mg/dL Normal 0.20-1.20 [facility] MAIN Comment on above: Result Comment: Use of this assay is not recommended for patients undergoing treatment with eltrombopag due to the potential for falsely elevated results. Performed By: #### Ed WAGNER, BMP #### [place] [address] BUN/Creatinine Ratio 26.8 ratio High 10.0-22.0 [facility] MAIN Comment on above: Performed By: #### Ed FR, BMP #### [place] [id number] Calcium [Mass/Vol] 9.2 mg/dL Normal 8.7-10.4 [facility] Comment on above: Performed By: #### Ed FR, BMP #### [place] [address] Chloride [Moles/Vol] 105 mmol/L Normal 98-110 [facility] Comment on above: Performed By: #### Ed WAGNER, BMP #### [place] [address] CO2 [Moles/Vol] 28 mmol/L Normal 22-32 [facility] Comment on above: Performed By: #### G FR, BMP #### [address] [address] Creatinine [Mass/Vol] 1.12 mg/dL Normal 0.50-1.20 [facility] Comment on above: Result Comment: Test ing performed on Official Limited Virtual analyzer using enzymatic creatinine methodology. Performed By: #### G FR, BMP #### [address] [address] Electrolyte Balance 9.0 mEq/L Normal 4.0-15.0 [facility] MAIN Comment on above: Performed By: #### G FR, BMP #### [address] [address] Globulin 2.7 G/dL Normal 2.5-4.2 [facility] Comment on above: Performed By: #### G FR, BMP #### [address] [address] Glucose [Mass/Vol] 95 mg/dL Normal 82-115 [facility] Comment on above: Performed By: #### G FR, BMP #### [address] [address] Potassium [Moles/Vol] 4.0 mmol/L Normal 3.5-5.0 [facility] Comment on above: Performed By: #### G FR, BMP #### [address] [address] Sodium [Moles/Vol] 142 mmol/L Normal 136-145 [facility] Comment on above: Performed By: #### G FR, BMP #### [address] [address] Total Protein 6.4 G/dL Normal 5.7-8.2 [facility] Comment on above: Performed By: #### G FR, BMP #### [address] [address] Urea nitrogen [Mass/Vol] 30.0 mg/dL High 8.0-22.0 [facility] Comment on above: Performed By: #### G FR, BMP #### [place] [id number] [place] [address] MGon 08-27-2024 Magnesium [Mass/Vol] 2.4 mg/dL Normal 1.6-2.4 [facility] MA[facility] Comment on above: Performed By: #### G FR, BMP #### [address] [address] PROon 08-27-2024 INR Coag (PPP) [Relative time] 1.2 {INR} Normal [facility] Comment on above: Result Comment: The [employer] (CHEST, 1992, [id number]) recommended therapeutic range for oral anticoagulant therapy is: LOW RISK: Prophylaxis of venous thrombosis INR: 2.0-3.0 Treatment of pulmonary embolism 2.0-3.0 Prevention of systemic embolism 2.0-3.0 HIGH RISK: Mechanical prosthetic valves 2.5-3.5 Performed By: #### G , BMP #### [place] [id number] PT Coag (PPP) [Time] 13.2 s Normal 9.0-14.4 [facility] MAIN Comment on above: Result Comment: Effe ctive 10/24/07, Protime results may be affected by some antibiotics (i.e. Ciprofloxacin, Azithromycin, Bactrim) which may potentiate the action of oral anticoagulants, with further increases in Protime/INR. Performed By: #### G , BMP #### [address] [address] .GFRon 08-21-2024 Estimated Glomerular Filtration Rate 46 ml/min/1.73sqm Normal [facility] Comment on above: Result Comment: Stages of [...] GFR, BMP, CBC, ANEU, TROPHS, ADIFF #### [address] [address] BMPon 08-21-2024 BUN/Creatinine Ratio 19 ratio Normal 7-27 [facility] Comment on above: Performed By: #### M DW, MG, GFR, BMP, CBC, ANEU, TROPHS, ADIFF #### [address] [address] Calcium [Mass/Vol] 9.1 mg/dL Normal 8.4-10.2 [facility] Comment on above: Performed By: #### M DW, MG, GFR, BMP, CBC, ANEU, TROPHS, ADIFF #### [address] [address] Chloride [Moles/Vol] 104 mmol/L Normal 98-107 [facility] Comment on above: Performed By: #### M DW, MG, GFR, BMP, CBC, ANEU, TROPHS, ADIFF #### [address] [address] CO2 [Moles/Vol] 27 mmol/L Normal 23-31 [facility] Comment on above: Performed By: #### M DW, MG, GFR, BMP, CBC, ANEU, TROPHS, ADIFF #### [address] [address] Creatinine [Mass/Vol] 1.18 mg/dL High 0.51-0.95 [facility] Comment on above: Performed By: #### M DW, MG, GFR, BMP, CBC, ANEU, TROPHS, ADIFF #### [address] [address] Electrolyte Balance 8.0 mEq/L Normal 4.0-15.0 [facility] Comment on above: Performed By: #### M DW, MG, GFR, BMP, CBC, ANEU, TROPHS, ADIFF #### [address] [address] Glucose [Mass/Vol] 95 mg/dL Normal 83-110 [facility] Comment on above: Performed By: #### M DW, MG, GFR, BMP, CBC, ANEU, TROPHS, ADIFF #### [address] [address] Potassium [Moles/Vol] 5.3 mmol/L High 3.5-5.1 [facility] Comment on above: Performed By: #### M DW, MG, GFR, BMP, CBC, ANEU, TROPHS, ADIFF #### [address] [address] Sodium [Moles/Vol] 139 mmol/L Normal 136-145 [facility] Comment on above: Performed By: #### M DW, MG, GFR, BMP, CBC, ANEU, TROPHS, ADIFF #### [address] [address] Urea nitrogen [Mass/Vol] 23 mg/dL High 7-18 [facility] Comment on above: Performed By: #### M DW, MG, GFR, BMP, CBC, ANEU, TROPHS, ADIFF #### [address] [address] LABORATORYOrdered By: SYSTEM SYSTEM on 08-21-2024 Calcium [...] Estimated Glomerular Filtration Rate 41 ml/min/1.73sqm Normal [facility] Comment on above: Result Comment: [...] MG, BMP, ADIFF, GFR, CBC, HFP #### [place] [address] BMPon 08-09-2024 BUN/Creatinine Ratio 22.9 ratio High 10.0-22.0 [facility] Comment on above: Order Comment: Unexp ected results. Possible specimen contamination. Called Ashley Puckett on [facility] for recollect. 08/09/2024 05:15:01 EDT Performed By: #### A COLLIN, MG, BMP, ADIFF, GFR, CBC, HFP #### [address] [address] Calcium [Mass/Vol] 7.4 mg/dL Low 8.7-10.4 [facility]IN Comment on above: Order Comment: Unexp ected results. Possible specimen contamination. Called Ashley Puckett on [facility] for recollect. 08/09/2024 05:15:01 EDT Performed By: #### A COLLIN, MG, BMP, ADIFF, GFR, CBC, HFP #### [address] [address] Chloride [Moles/Vol] 105 mmol/L Normal 98-110 [facility] Comment on above: Order Comment: Unexp ected results. Possible specimen contamination. Called Ashley Puckett on [facility] for recollect. 08/09/2024 05:15:01 EDT Performed By: #### A COLLIN, MG, BMP, ADIFF, GFR, CBC, HFP #### [address] [address] CO2 [Moles/Vol] 23 mmol/L Normal 22-32 [facility] Comment on above: Order Comment: Unexp ected results. Possible specimen contamination. Called Ashley Puckett on [facility] for recollect. 08/09/2024 05:15:01 EDT Performed By: #### A COLLIN, MG, BMP, ADIFF, GFR, CBC, HFP #### [address] [address] Creatinine [Mass/Vol] 1.31 mg/dL High 0.50-1.20 [facility] Comment on above: Order Comment: Unexp ected results. Possible specimen contamination. Called Ashley Puckett on [facility] for recollect. 08/09/2024 05:15:01 EDT Result Comment: Test ing performed on Official Limited Virtual analyzer using enzymatic creatinine methodology. Performed By: #### A COLLIN, MG, BMP, ADIFF, GFR, CBC, HFP #### [address] [address] Electrolyte Balance 8.0 mEq/L Normal 4.0-15.0 [facility] Comment on above: Order Comment: Unexp ected results. Possible specimen contamination. Called feliz Diamondt on [facility] for recollect. 08/09/2024 05:15:01 EDT Performed By: #### A COLLIN, MG, BMP, ADIFF, GFR, CBC, HFP #### [address] [address] Glucose [Mass/Vol] 99 mg/dL Normal 82-115 [facility] Comment on above: Order Comment: Unexp ected results. Possible specimen contamination. Called Ashley Puckett on [facility] for recollect. 08/09/2024 05:15:01 EDT Performed By: #### A COLLIN, MG, BMP, ADIFF, GFR, CBC, HFP #### [address] [address] Potassium [Moles/Vol] 5.5 mmol/L High 3.5-5.0 [facility] Comment on above: Order Comment: Unexp ected results. Possible specimen contamination. Called Ashley Puckett on [facility] for recollect. 08/09/2024 05:15:01 EDT Performed By: #### A COLLIN, MG, BMP, ADIFF, GFR, CBC, HFP #### [address] [address] Sodium [Moles/Vol] 136 mmol/L Normal 136-145 [facility] Comment on above: Order Comment: Unexp ected results. Possible specimen contamination. Called Ashley Puckett on [facility] for recollect. 08/09/2024 05:15:01 EDT Performed By: #### A COLLIN, MG, BMP, ADIFF, GFR, CBC, HFP #### [address] [address] Urea nitrogen [Mass/Vol] 30.0 mg/dL High 8.0-22.0 [facility] Comment on above: Order Comment: Unexp ected results. Possible specimen contamination. Called Ashley Puckett on [facility] for recollect. 08/09/2024 05:15:01 EDT Performed By: #### A COLLIN, MG, BMP, ADIFF, GFR, CBC, HFP #### [address] [address] LABORATORYOrdered By: SYSTEM SYSTEM on 08-09-2024 Calcium [...] above: Interpretive Data: T esting performed on Official Limited Virtual analyzer using enzymatic creatinine methodology. Electrolyte Balance [...] Basophil, Absolute 0.1 10 3/mcL Normal 0.0-0.3 [facility] Comment on above: Performed By: #### A COLLIN, MG, BMP, ADIFF, GFR, CBC, HFP #### [address] [address] Basophils/100 WBC (Bld) 1.5 % Normal 0.0-2.5 [facility] Comment on above: Performed By: #### A COLLIN, MG, BMP, ADIFF, GFR, CBC, HFP #### [address] [address] Eosinophil, Absolute 0.2 10 3/mcL Normal 0.0-0.7 [facility] Comment on above: Performed By: #### A COLLIN, MG, BMP, ADIFF, GFR, CBC, HFP #### [address] [address] Eosinophils/100 WBC (Bld) 2.8 % Normal 0.0-6.0 [facility] Comment on above: Performed By: #### A COLLIN, MG, BMP, ADIFF, GFR, CBC, HFP #### [address] [address] Lymphocyte, Absolute 0.7 10 3/mcL Low 0.9-4.3 [facility] Comment on above: Performed By: #### A COLLIN, MG, BMP, ADIFF, GFR, CBC, HFP #### [address] [address] Lymphocytes/100 WBC (Bld) 9.3 % Low 20.0-40.0 [facility] Comment on above: Performed By: #### A COLLIN, MG, BMP, ADIFF, GFR, CBC, HFP #### [address] [address] Monocyte, Absolute 0.5 10 3/mcL Normal 0.1-1.4 [facility] Comment on above: Performed By: #### A COLLIN, MG, BMP, ADIFF, GFR, CBC, HFP #### [address] [address] Monocytes/100 WBC (Bld) 7.4 % Normal 2.0-13.0 [facility] Comment on above: Performed By: #### A COLLIN, MG, BMP, ADIFF, GFR, CBC, HFP #### [address] [address] Neutrophils/100 WBC (Bld) 79.0 % High 50.0-75.0 [facility] Comment on above: Performed By: #### A COLLIN, MG, BMP, ADIFF, GFR, CBC, HFP #### [address] [address] .GFRon 08-08-2024 Estimated Glomerular Filtration Rate 52 ml/min/1.73sqm Normal [facility] Comment on above: Result Comment: [...] BMP, ADIFF, GFR, CBC, HFP #### [address] [address] .NEUABSon 08-08-2024 Neutrophil, Absolute 5.8 10 3/mcL Normal 2.3-8.1 [facility] Comment on above: Performed By: #### A COLLIN, MG, BMP, ADIFF, GFR, CBC, HFP #### [place] [id number] ABO/Rh (Gel)on 08-08-2024 ABO/Rh Interp Positive Invalid Interpretation Code [facility] Comment on above: Performed By: #### A COLLIN, MG, BMP, ADIFF, GFR, CBC, HFP #### [address] [address] ABS (Gel)on 08-08-2024 ABSC Interp (Gel) Negative Normal [facility] Comment on above: Performed By: #### A COLLIN, MG, BMP, ADIFF, GFR, CBC, HFP #### [address] [address] APTTon 08-08-2024 aPTT Coag (Bld) [Time] 37.1 s High 25.0-35.0 [facility] Comment on above: Result Comment: For Heparin anticoagulation therapy, the recommended therapeutic range is: 54-77 seconds (APTT Correlation with Anti-Xa therapeutic range of 0.3-0.7 units/ml). PLEASE REFERENCE THE PHARMACY PROTOCOL FOR DOSING. Performed By: #### A COLLIN, MG, BMP, ADIFF, GFR, CBC, HFP #### [place] [id number] BMPon 08-08-2024 BUN/Creatinine Ratio 15.0 ratio Normal 10.0-22.0 [facility] Comment on above: Performed By: #### A COLLIN, MG, BMP, ADIFF, GFR, CBC, HFP #### [place] [address] Calcium [Mass/Vol] 8.3 mg/dL Low 8.7-10.4 [facility] Comment on above: Performed By: #### A COLLIN, MG, BMP, ADIFF, GFR, CBC, HFP #### [place] [address] Chloride [Moles/Vol] 106 mmol/L Normal 98-110 [facility] Comment on above: Performed By: #### A COLLIN, MG, BMP, ADIFF, GFR, CBC, HFP #### [place] [address] CO2 [Moles/Vol] 24 mmol/L Normal 22-32 [facility] Comment on above: Performed By: #### A COLLIN, MG, BMP, ADIFF, GFR, CBC, HFP #### [place] [id number] Creatinine [Mass/Vol] 1.07 mg/dL Normal 0.50-1.20 [facility] Comment on above: Result Comment: Test ing performed on Official Limited Virtual analyzer using enzymatic creatinine methodology. Performed By: #### A COLLIN, MG, BMP, ADIFF, GFR, CBC, HFP #### [place] [id number] Electrolyte Balance 7.0 mEq/L Normal 4.0-15.0 [facility] Comment on above: Performed By: #### A COLLIN, MG, BMP, ADIFF, GFR, CBC, HFP #### [place] [id number] Glucose [Mass/Vol] 87 mg/dL Normal 82-115 [facility] Comment on above: Performed By: #### A COLLIN, MG, BMP, ADIFF, GFR, CBC, HFP #### [place] [id number] Potassium [Moles/Vol] 4.4 mmol/L Normal 3.5-5.0 [facility] Comment on above: Performed By: #### A COLLIN, MG, BMP, ADIFF, GFR, CBC, HFP #### [place] [id number] Sodium [Moles/Vol] 137 mmol/L Normal 136-145 [facility] Comment on above: Performed By: #### A COLLIN, MG, BMP, ADIFF, GFR, CBC, HFP #### [place] [address] Urea nitrogen [Mass/Vol] 16.0 mg/dL Normal 8.0-22.0 [facility] Comment on above: Performed By: #### A COLLIN, MG, BMP, ADIFF, GFR, CBC, HFP #### [address] [address] CBCon 08-08-2024 Erythrocyte distribution width (RBC) [Ratio] 14.2 % Normal 11.5-15.5 [facility] Comment on above: Performed By: #### A COLLIN, MG, BMP, ADIFF, GFR, CBC, HFP #### [place] [id number] Hematocrit (Bld) [Volume fraction] 36.9 % Normal 34.0-46.0 [facility] Comment on above: Performed By: #### A COLLIN, MG, BMP, ADIFF, GFR, CBC, HFP #### [place] [id number] Hgb 12.3 G/dL Normal 12.0-16.0 [facility] Comment on above: Performed By: #### A COLLIN, MG, BMP, ADIFF, GFR, CBC, HFP #### [place] [address] MCH (RBC) [Entitic mass] 29.9 pg Normal 27.0-33.0 [facility] Comment on above: Performed By: #### A COLLIN, MG, BMP, ADIFF, GFR, CBC, HFP #### [place] [address] MCHC 33.3 G/dL Normal 32.0-36.0 [facility] Comment on above: Performed By: #### A COLLIN, MG, BMP, ADIFF, GFR, CBC, HFP #### [place] [address] MCV (RBC) [Entitic vol] 89.8 fL Normal 80.0-99.0 [facility] Comment on above: Performed By: #### A COLLIN, MG, BMP, ADIFF, GFR, CBC, HFP #### [place] [address] Platelet 309 10 3/mcL Normal 150-450 [facility] Comment on above: Performed By: #### A COLLIN, MG, BMP, ADIFF, GFR, CBC, HFP #### [place] [address] Platelet mean volume (Bld) [Entitic vol] 7.8 fL Normal 6.6-10.5 [facility] Comment on above: Performed By: #### A COLLIN, MG, BMP, ADIFF, GFR, CBC, HFP #### [place] [address] RBC 4.11 10 6/mcL Normal 4.10-5.30 [facility] Comment on above: Performed By: #### A COLLIN, MG, BMP, ADIFF, GFR, CBC, HFP #### [place] [address] WBC 7.4 10 3/mcL Normal 4.5-10.8 [facility] Comment on above: Performed By: #### A COLLIN, MG, BMP, ADIFF, GFR, CBC, HFP #### [facility] [address] [place] [address] FIBon 08-08-2024 Fibrinogen 583 mg/dL High 250-560 [facility] Comment on above: Performed By: #### A COLLIN, MG, BMP, ADIFF, GFR, CBC, HFP #### [facility] [address] [place] [address] LABORATORYOrdered By: Óscar Guerrero on 08-08-2024 ABO [...] above: Interpretive Data: T esting performed on Official Limited Virtual analyzer using enzymatic creatinine methodology. Electrolyte Balance [...] Comment on above: Interpretive Data: Jatinder samano [employer] (CHEST, 1991, 102:312S-25S) [...] Coag (PPP) [Relative time] 1.2 {INR} Normal [facility] Comment on above: Result Comment: [employer] (CHEST, 1991, 102:312S-25S) recommended therapeutic range for oral anticoagulant therapy is: LOW RISK: Prophylaxis of venous thrombosis INR: 2.0-3.0 Treatment of pulmonary embolism 2.0-3.0 Prevention of systemic embolism 2.0-3.0 HIGH RISK: Mechanical prosthetic valves 2.5-3.5 Performed By: #### A COLLIN, MG, BMP, ADIFF, GFR, CBC, HFP #### [address] [address] PT Coag (PPP) [Time] 13.7 s Normal 9.0-14.4 [facility] Comment on above: Result Comment: Effe ctive 10/24/07, Protime results may be affected by some antibiotics (i.e. Ciprofloxacin, Azithromycin, Bactrim) which may potentiate the action of oral anticoagulants, with further increases in Protime/INR. Performed By: #### A CLOLIN, MG, BMP, ADIFF, GFR, CBC, HFP #### [address] [address] .Auto Diffon 07-27-2024 Basophil, Absolute 0.1 10 3/mcL Normal 0.0-0.3 [facility] Comment on above: Performed By: #### A COLLIN, MG, BMP, ADIFF, GFR, CBC, HFP #### [address] [address] Basophils/100 WBC (Bld) 1.2 % Normal 0.0-2.5 [facility] Comment on above: Performed By: #### A COLLIN, MG, BMP, ADIFF, GFR, CBC, HFP #### [address] [address] Eosinophil, Absolute 0.2 10 3/mcL Normal 0.0-0.7 [facility] Comment on above: Performed By: #### A COLLIN, MG, BMP, ADIFF, GFR, CBC, HFP #### [address] [address] Eosinophils/100 WBC (Bld) 2.3 % Normal 0.0-6.0 [facility] Comment on above: Performed By: #### A COLLIN, MG, BMP, ADIFF, GFR, CBC, HFP #### [address] [address] Lymphocyte, Absolute 0.9 10 3/mcL Normal 0.9-4.3 [facility] Comment on above: Performed By: #### A COLLIN, MG, BMP, ADIFF, GFR, CBC, HFP #### [address] [address] Lymphocytes/100 WBC (Bld) 10.3 % Low 20.0-40.0 [facility] Comment on above: Performed By: #### A COLLIN, MG, BMP, ADIFF, GFR, CBC, HFP #### [address] [address] Monocyte, Absolute 0.8 10 3/mcL Normal 0.1-1.4 [facility] Comment on above: Performed By: #### A COLLIN, MG, BMP, ADIFF, GFR, CBC, HFP #### [address] [address] Monocytes/100 WBC (Bld) 8.6 % Normal 2.0-13.0 [facility] Comment on above: Performed By: #### A COLLIN, MG, BMP, ADIFF, GFR, CBC, HFP #### [address] [address] Neutrophils/100 WBC (Bld) 77.6 % High 50.0-75.0 [facility] Comment on above: Performed By: #### A COLLIN, MG, BMP, ADIFF, GFR, CBC, HFP #### [address] [address] .GFRon 07-27-2024 Estimated Glomerular Filtration Rate 59 ml/min/1.73sqm Normal [facility] Comment on above: Result Comment: [...] BMP, ADIFF, GFR, CBC, HFP #### [address] [address] .NEUABSon 07-27-2024 Neutrophil, Absolute 7.0 10 3/mcL Normal 2.3-8.1 [facility] Comment on above: Performed By: #### A COLLIN, MG, BMP, ADIFF, GFR, CBC, HFP #### [address] [address] BMPon 07-27-2024 BUN/Creatinine Ratio 21.9 ratio Normal 10.0-22.0 [facility] Comment on above: Performed By: #### A COLLIN, MG, BMP, ADIFF, GFR, CBC, HFP #### [address] [address] Calcium [Mass/Vol] 9.0 mg/dL Normal 8.7-10.4 [facility] Comment on above: Performed By: #### A COLLIN, MG, BMP, ADIFF, GFR, CBC, HFP #### [address] [address] Chloride [Moles/Vol] 106 mmol/L Normal 98-110 [facility] Comment on above: Performed By: #### A COLLIN, MG, BMP, ADIFF, GFR, CBC, HFP #### [address] [address] CO2 [Moles/Vol] 29 mmol/L Normal 22-32 [facility] Comment on above: Performed By: #### A COLLIN, MG, BMP, ADIFF, GFR, CBC, HFP #### [place] [phone] Creatinine [Mass/Vol] 0.96 mg/dL Normal 0.50-1.20 [facility] Comment on above: Result Comment: Test ing performed on Official Limited Virtual analyzer using enzymatic creatinine methodology. Performed By: #### A COLLIN, MG, BMP, ADIFF, GFR, CBC, HFP #### [place] [id number] Electrolyte Balance 8.0 mEq/L Normal 4.0-15.0 [facility] Comment on above: Performed By: #### A COLLIN, MG, BMP, ADIFF, GFR, CBC, HFP #### [place] [address] Glucose [Mass/Vol] 97 mg/dL Normal 82-115 [facility] Comment on above: Performed By: #### A COLLIN, MG, BMP, ADIFF, GFR, CBC, HFP #### [place] [address] Potassium [Moles/Vol] 4.1 mmol/L Normal 3.5-5.0 [facility] Comment on above: Performed By: #### A COLLIN, MG, BMP, ADIFF, GFR, CBC, HFP #### [place] [id number] Sodium [Moles/Vol] 143 mmol/L Normal 136-145 [facility] Comment on above: Performed By: #### A COLLIN, MG, BMP, ADIFF, GFR, CBC, HFP #### [place] [address] Urea nitrogen [Mass/Vol] 21.0 mg/dL Normal 8.0-22.0 [facility] Comment on above: Performed By: #### A COLLIN, MG, BMP, ADIFF, GFR, CBC, HFP #### [place] [id number] CBCon 07-27-2024 Erythrocyte distribution width (RBC) [Ratio] 14.7 % Normal 11.5-15.5 [facility] Comment on above: Performed By: #### A COLLIN, MG, BMP, ADIFF, GFR, CBC, HFP #### [place] [address] Hematocrit (Bld) [Volume fraction] 35.6 % Normal 34.0-46.0 [facility] Comment on above: Performed By: #### A COLLIN, MG, BMP, ADIFF, GFR, CBC, HFP #### [place] [address] Hgb 11.9 G/dL Low 12.0-16.0 [facility] Comment on above: Performed By: #### A COLLIN, MG, BMP, ADIFF, GFR, CBC, HFP #### [place] [address] MCH (RBC) [Entitic mass] 30.1 pg Normal 27.0-33.0 [facility] Comment on above: Performed By: #### A COLLIN, MG, BMP, ADIFF, GFR, CBC, HFP #### [place] [address] MCHC 33.5 G/dL Normal 32.0-36.0 [facility] Comment on above: Performed By: #### A COLLIN, MG, BMP, ADIFF, GFR, CBC, HFP #### [place] [address] MCV (RBC) [Entitic vol] 89.9 fL Normal 80.0-99.0 [facility] Comment on above: Performed By: #### A COLLIN, MG, BMP, ADIFF, GFR, CBC, HFP #### [place] [address] Platelet 322 10 3/mcL Normal 150-450 [facility] Comment on above: Performed By: #### A COLLIN, MG, BMP, ADIFF, GFR, CBC, HFP #### [place] [address] Platelet mean volume (Bld) [Entitic vol] 7.8 fL Normal 6.6-10.5 [facility] Comment on above: Performed By: #### A COLLIN, MG, BMP, ADIFF, GFR, CBC, HFP #### [place] [address] RBC 3.96 10 6/mcL Low 4.10-5.30 [facility] Comment on above: Performed By: #### A COLLIN, MG, BMP, ADIFF, GFR, CBC, HFP #### [place] [id number] WBC 9.0 10 3/mcL Normal 4.5-10.8 [facility] Comment on above: Performed By: #### A COLLIN, MG, BMP, ADIFF, GFR, CBC, HFP #### [place] [id number] [place] [address] LABORATORYOrdered By: SYSTEM SYSTEM on 07-27-2024 Basophils [...] above: Interpretive Data: T esting performed on Official Limited Virtual analyzer using enzymatic creatinine methodology. Electrolyte Balance [...] Basophil, Absolute 0.1 10 3/mcL Normal 0.0-0.2 [facility] Comment on above: Performed By: #### M DW, MG, GFR, BMP, CBC, ANEU, TROPHS, ADIFF #### [address] [address] Basophils/100 WBC (Bld) 1.1 % Normal 0.0-2.5 [facility] Comment on above: Performed By: #### M DW, MG, GFR, BMP, CBC, ANEU, TROPHS, ADIFF #### [address] [address] Eosinophil, Absolute 0.3 10 3/mcL Normal 0.0-0.7 [facility] Comment on above: Performed By: #### M DW, MG, GFR, BMP, CBC, ANEU, TROPHS, ADIFF #### [address] [address] Eosinophils/100 WBC (Bld) 2.0 % Normal 0.0-7.0 [facility] Comment on above: Performed By: #### M DW, MG, GFR, BMP, CBC, ANEU, TROPHS, ADIFF #### [address] [address] Lymphocyte, Absolute 1.1 10 3/mcL Normal 0.9-4.3 [facility] Comment on above: Performed By: #### M DW, MG, GFR, BMP, CBC, ANEU, TROPHS, ADIFF #### [address] [address] Lymphocytes/100 WBC (Bld) 8.8 % Low 20.0-40.0 [facility] Comment on above: Performed By: #### M DW, MG, GFR, BMP, CBC, ANEU, TROPHS, ADIFF #### [address] [address] Monocyte, Absolute 0.8 10 3/mcL Normal 0.1-1.4 [facility] Comment on above: Performed By: #### M DW, MG, GFR, BMP, CBC, ANEU, TROPHS, ADIFF #### [place] [address] [place], [place] [address] Monocytes/100 WBC (Bld) 6.7 % Normal 2.0-13.0 [facility] Comment on above: Performed By: #### M DW, MG, GFR, BMP, CBC, ANEU, TROPHS, ADIFF #### [place] [address] [place], [place] [address] Neutrophils/100 WBC (Bld) 81.4 % High 50.0-75.0 [facility] Comment on above: Performed By: #### M DW, MG, GFR, BMP, CBC, ANEU, TROPHS, ADIFF #### [address] [address] .GFRon 07-05-2024 Estimated Glomerular Filtration Rate 53 ml/min/1.73sqm Normal [facility] Comment on above: Result Comment: Stages of [...] GFR, BMP, CBC, ANEU, TROPHS, ADIFF #### [place] [address] [place], [place] [address] .MDWon 07-05-2024 Monocyte Distribution Width 16.20 Normal 0.00-20.00 [facility] Comment on above: Result Comment: For ED adult patients suspected of sepsis, MDW<=20.0 does not rule out sepsis or risk of sepsis Performed By: #### M DW, MG, GFR, BMP, CBC, ANEU, TROPHS, ADIFF #### [address] [address] .NEUABSon 07-05-2024 Neutrophil, Absolute 10.2 10 3/mcL High 2.3-8.1 [facility] Comment on above: Performed By: #### M DW, MG, GFR, BMP, CBC, ANEU, TROPHS, ADIFF #### [address] [address] BMPon 07-05-2024 BUN/Creatinine Ratio 23 ratio Normal 7-27 [facility] Comment on above: Performed By: #### M DW, MG, GFR, BMP, CBC, ANEU, TROPHS, ADIFF #### [address] [address] Calcium [Mass/Vol] 9.8 mg/dL Normal 8.4-10.2 [facility] Comment on above: Performed By: #### M DW, MG, GFR, BMP, CBC, ANEU, TROPHS, ADIFF #### [address] [address] Chloride [Moles/Vol] 101 mmol/L Normal 98-107 [facility] Comment on above: Performed By: #### M DW, MG, GFR, BMP, CBC, ANEU, TROPHS, ADIFF #### [address] [address] CO2 [Moles/Vol] 32 mmol/L High 23-31 [facility] Comment on above: Performed By: #### M DW, MG, GFR, BMP, CBC, ANEU, TROPHS, ADIFF #### [place] [id number] Creatinine [Mass/Vol] 1.06 mg/dL High 0.55-1.02 [facility] Comment on above: Result Comment: Test ing performed on Siemens Dimension EXL analyzer using a modified kinetic Josse technique. Performed By: #### M DW, MG, GFR, BMP, CBC, ANEU, TROPHS, ADIFF #### [address] [address] Electrolyte Balance 6.0 mEq/L Normal 4.0-15.0 [facility] Comment on above: Performed By: #### M DW, MG, GFR, BMP, CBC, ANEU, TROPHS, ADIFF #### [address] [address] Glucose [Mass/Vol] 101 mg/dL Normal 83-110 [facility] Comment on above: Performed By: #### M DW, MG, GFR, BMP, CBC, ANEU, TROPHS, ADIFF #### [address] [address] Potassium [Moles/Vol] 4.1 mmol/L Normal 3.5-5.1 [facility] Comment on above: Performed By: #### M DW, MG, GFR, BMP, CBC, ANEU, TROPHS, ADIFF #### [address] [address] Sodium [Moles/Vol] 139 mmol/L Normal 136-145 [facility] Comment on above: Performed By: #### M DW, MG, GFR, BMP, CBC, ANEU, TROPHS, ADIFF #### [address] [address] Urea nitrogen [Mass/Vol] 24 mg/dL High 7-18 [facility] Comment on above: Performed By: #### M DW, MG, GFR, BMP, CBC, ANEU, TROPHS, ADIFF #### [address] [address] CBCon 07-05-2024 Erythrocyte distribution width (RBC) [Ratio] 14.6 % Normal 11.5-15.5 [facility] Comment on above: Performed By: #### M DW, MG, GFR, BMP, CBC, ANEU, TROPHS, ADIFF #### [address] [address] Hematocrit (Bld) [Volume fraction] 38.7 % Normal 34.0-46.0 [facility] Comment on above: Performed By: #### M DW, MG, GFR, BMP, CBC, ANEU, TROPHS, ADIFF #### [place] [address] Hgb 13.0 G/dL Normal 12.0-16.0 [facility] Comment on above: Performed By: #### M DW, MG, GFR, BMP, CBC, ANEU, TROPHS, ADIFF #### [place] [address] MCH (RBC) [Entitic mass] 29.8 pg Normal 27.0-33.0 [facility] Comment on above: Performed By: #### M DW, MG, GFR, BMP, CBC, ANEU, TROPHS, ADIFF #### [place] [address] MCHC 33.7 G/dL Normal 32.0-36.0 [facility] Comment on above: Performed By: #### M DW, MG, GFR, BMP, CBC, ANEU, TROPHS, ADIFF #### [place] [address] MCV (RBC) [Entitic vol] 88.4 fL Normal 80.0-99.0 [facility] Comment on above: Performed By: #### M DW, MG, GFR, BMP, CBC, ANEU, TROPHS, ADIFF #### [place] [address] Platelet 378 10 3/mcL Normal 150-450 [facility] Comment on above: Performed By: #### M DW, MG, GFR, BMP, CBC, ANEU, TROPHS, ADIFF #### [place] [address] Platelet mean volume (Bld) [Entitic vol] 7.4 fL Normal 6.6-10.5 [facility] Comment on above: Performed By: #### M DW, MG, GFR, BMP, CBC, ANEU, TROPHS, ADIFF #### [place] [address] RBC 4.37 10 6/mcL Normal 4.10-5.30 [facility] Comment on above: Performed By: #### M DW, MG, GFR, BMP, CBC, ANEU, TROPHS, ADIFF #### [address] [address] WBC 12.5 10 3/mcL High 4.5-10.8 [facility] Comment on above: Performed By: #### M DW, MG, GFR, BMP, CBC, ANEU, TROPHS, ADIFF #### [address] [address] MGon 07-05-2024 Magnesium [Mass/Vol] 2.2 mg/dL Normal 1.8-2.4 [facility] Comment on above: Performed By: #### M DW, MG, GFR, BMP, CBC, ANEU, TROPHS, ADIFF #### [address] [address] TROPHSon 07-05-2024 High Sensitivity Troponin I 142 ng/L High [address] Comment on above: Result Comment: High Sensitive Troponin I Reference Ranges: Female: 0-51 ng/L Male: 0-76 ng/L Testing performed on [employer] using a homogeneous sandwich chemiluminescent immunoassay based on Germin[employer] technology. Performed By: #### M DW, MG, GFR, BMP, CBC, ANEU, TROPHS, ADIFF #### [address] [address] High Sensitivity Troponin I 146 ng/L High [address] [place] [address] Comment on above: Result Comment: High Sensitive Troponin I Reference Ranges: Female: 0-51 ng/L Male: 0-76 ng/L Testing performed on [employer] using a homogeneous sandwich chemiluminescent immunoassay based on Germin8 technology. Performed By: #### M DW, MG, GFR, BMP, CBC, ANEU, TROPHS, ADIFF #### [address] [address] XR CHEST 2 VIEWSon XR CHEST 2 [...] 07/05/2024 3:02:15 PM Ordering Provider: REMIGIO Mercado [facility] AMIODon 07-04-2024 Amiodarone Lvl 954 ng/mL Low [id number] [facility] Comment on above: Order Comment: Abdiaziz in venipuncture to recollect 06/29/24 800am Performed By: #### A COLLIN, MG, BMP, ADIFF, GFR, CBC, HFP #### [facility] [address] [place] [address] Desethylami Lvl 795 ng/mL Normal [facility] Comment on above: Order Comment: Abdiaziz in venipuncture to recollect 06/29/24 800am Result Comment: Note : To convert from ng/ml to ug/ml, divide the result by 1000. Reference range (amiodarone): 1.00-2.50 ug/mL. This test was developed and its performance characteristics determined by [employer]. It has not been cleared or approved by the Food and Drug Administration. Performed At: [employer] [address] [place] [id number] [facility] Ph:[phone] Performed By: #### A COLLIN, MG, BMP, ADIFF, GFR, CBC, HFP #### [address] [id number] .Auto Diffon 07-01-2024 Basophil, Absolute 0.1 10 3/mcL Normal 0.0-0.3 [facility] Comment on above: Performed By: #### A COLLIN, MG, BMP, ADIFF, GFR, CBC, HFP #### [address] [address] Basophils/100 WBC (Bld) 1.0 % Normal 0.0-2.5 [facility] Comment on above: Performed By: #### A COLLIN, MG, BMP, ADIFF, GFR, CBC, HFP #### [address] [address] Eosinophil, Absolute 0.3 10 3/mcL Normal 0.0-0.7 [facility] Comment on above: Performed By: #### A COLLIN, MG, BMP, ADIFF, GFR, CBC, HFP #### [address] [address] Eosinophils/100 WBC (Bld) 3.1 % Normal 0.0-6.0 [facility] Comment on above: Performed By: #### A COLLIN, MG, BMP, ADIFF, GFR, CBC, HFP #### [address] [address] Lymphocyte, Absolute 0.9 10 3/mcL Normal 0.9-4.3 [facility] Comment on above: Performed By: #### A COLLIN, MG, BMP, ADIFF, GFR, CBC, HFP #### [address] [address] Lymphocytes/100 WBC (Bld) 9.1 % Low 20.0-40.0 [facility] Comment on above: Performed By: #### A COLLIN, MG, BMP, ADIFF, GFR, CBC, HFP #### [address] [address] Monocyte, Absolute 0.8 10 3/mcL Normal 0.1-1.4 [facility] Comment on above: Performed By: #### A COLLIN, MG, BMP, ADIFF, GFR, CBC, HFP #### [address] [address] Monocytes/100 WBC (Bld) 8.6 % Normal 2.0-13.0 [facility] Comment on above: Performed By: #### A COLLIN, MG, BMP, ADIFF, GFR, CBC, HFP #### [address] [address] Neutrophils/100 WBC (Bld) 78.2 % High 50.0-75.0 [facility] [facility] Comment on above: Performed By: #### A COLLIN, MG, BMP, ADIFF, GFR, CBC, HFP #### [address] [address] .GFRon 07-01-2024 Estimated Glomerular Filtration Rate 40 ml/min/1.73sqm Normal [facility] Comment on above: Result Comment: [...] #### C MP, MG, GFR #### [address] [address] .NEUABSon 07-01-2024 Neutrophil, Absolute 7.7 10 3/mcL Normal 2.3-8.1 [facility] Comment on above: Performed By: #### C MP, MG, GFR #### [address] [address] BMPon 07-01-2024 BUN/Creatinine Ratio 25.4 ratio High 10.0-22.0 [facility] Comment on above: Performed By: #### C MP, MG, GFR #### [address] [address] Calcium [Mass/Vol] 9.4 mg/dL Normal 8.7-10.4 [facility] Comment on above: Performed By: #### C MP, MG, GFR #### [address] [address] Chloride [Moles/Vol] 101 mmol/L Normal 98-110 [facility] Comment on above: Performed By: #### C MP, MG, GFR #### [address] [address] CO2 [Moles/Vol] 31 mmol/L Normal 22-32 [facility] Comment on above: Performed By: #### C MP, MG, GFR #### [address] [address] Creatinine [Mass/Vol] 1.34 mg/dL High 0.50-1.20 [facility] Comment on above: Result Comment: Test ing performed on Official Limited Virtual analyzer using enzymatic creatinine methodology. Performed By: #### C MP, MG, GFR #### [place] [id number] Electrolyte Balance 4.0 mEq/L Normal 4.0-15.0 [facility] Comment on above: Performed By: #### C MP, MG, GFR #### [place] [id number] Glucose [Mass/Vol] 90 mg/dL Normal 82-115 [facility] Comment on above: Performed By: #### C MP, MG, GFR #### [place] [phone] Potassium [Moles/Vol] 4.1 mmol/L Normal 3.5-5.0 [facility] Comment on above: Performed By: #### C MP, MG, GFR #### [place] [id number] Sodium [Moles/Vol] 136 mmol/L Normal 136-145 [facility] Comment on above: Performed By: #### C MP, MG, GFR #### [address] [address] Urea nitrogen [Mass/Vol] 34.0 mg/dL High 8.0-22.0 [facility] Comment on above: Performed By: #### C MP, MG, GFR #### [address] [address] CBCon 03-23-2025 Erythrocyte distribution width (RBC) [Ratio] 14.8 % Normal 11.5-15.5 [facility] Comment on above: Performed By: #### A COLLIN, MG, BMP, ADIFF, GFR, CBC, HFP #### [place] [address] Hematocrit (Bld) [Volume fraction] 35.7 % Normal 34.0-46.0 [facility] Comment on above: Performed By: #### A COLLIN, MG, BMP, ADIFF, GFR, CBC, HFP #### [place] [address] Hgb 12.3 G/dL Normal 12.0-16.0 [facility] Comment on above: Performed By: #### A COLLIN, MG, BMP, ADIFF, GFR, CBC, HFP #### [place] [address] MCH (RBC) [Entitic mass] 30.8 pg Normal 27.0-33.0 [facility] Comment on above: Performed By: #### A COLLIN, MG, BMP, ADIFF, GFR, CBC, HFP #### [place] [address] MCHC 34.4 G/dL Normal 32.0-36.0 [facility] Comment on above: Performed By: #### A COLLIN, MG, BMP, ADIFF, GFR, CBC, HFP #### [place] [address] MCV (RBC) [Entitic vol] 89.5 fL Normal 80.0-99.0 [facility] Comment on above: Performed By: #### A COLLIN, MG, BMP, ADIFF, GFR, CBC, HFP #### [place] [address] Platelet 302 10 3/mcL Normal 150-450 [facility] Comment on above: Performed By: #### A COLLIN, MG, BMP, ADIFF, GFR, CBC, HFP #### [place] [address] Platelet mean volume (Bld) [Entitic vol] 7.4 fL Normal 6.6-10.5 [facility] Comment on above: Performed By: #### A COLLIN, MG, BMP, ADIFF, GFR, CBC, HFP #### [place] [id number] [place] [address] RBC 3.99 10 6/mcL Low 4.10-5.30 [facility] Comment on above: Performed By: #### A COLLIN, MG, BMP, ADIFF, GFR, CBC, HFP #### [address] [address] WBC 9.8 10 3/mcL Normal 4.5-10.8 [facility] Comment on above: Performed By: #### A COLLIN, MG, BMP, ADIFF, GFR, CBC, HFP #### [address] [address] LABORATORYOrdered By: SYSTEM SYSTEM on 07-01-2024 Basophils [...] above: Interpretive Data: T esting performed on Official Limited Virtual analyzer using enzymatic creatinine methodology. Electrolyte Balance [...] 07-01-2024 Magnesium [Mass/Vol] 2.4 mg/dL Normal 1.6-2.4 [facility] Comment on above: Performed By: #### C MP, MG, GFR #### [address] [address] .Auto Diffon 06-30-2024 Basophil, Absolute 0.1 10 3/mcL Normal 0.0-0.3 [facility] Comment on above: Performed By: #### C MP, MG, GFR #### [address] [address] Basophils/100 WBC (Bld) 0.9 % Normal 0.0-2.5 [facility] Comment on above: Performed By: #### C MP, MG, GFR #### [address] [address] Eosinophil, Absolute 0.3 10 3/mcL Normal 0.0-0.7 [facility] Comment on above: Performed By: #### C MP, MG, GFR #### [address] [address] Eosinophils/100 WBC (Bld) 2.0 % Normal 0.0-6.0 [facility] Comment on above: Performed By: #### C MP, MG, GFR #### [address] [address] Lymphocyte, Absolute 1.2 10 3/mcL Normal 0.9-4.3 [facility] Comment on above: Performed By: #### C MP, MG, GFR #### [address] [address] Lymphocytes/100 WBC (Bld) 9.6 % Low 20.0-40.0 [facility] Comment on above: Performed By: #### C MP, MG, GFR #### [address] [address] Monocyte, Absolute 1.0 10 3/mcL Normal 0.1-1.4 [facility] Comment on above: Performed By: #### C MP, MG, GFR #### [address] Monocytes/100 WBC (Bld) 7.6 % Normal 2.0-13.0 [facility] Comment on above: Performed By: #### C MP, MG, GFR #### [address] [address] Neutrophils/100 WBC (Bld) 79.9 % High 50.0-75.0 [facility] Comment on above: Performed By: #### C MP, MG, GFR #### [address] [address] Basophil, Absolute 0.1 10 3/mcL Normal 0.0-0.3 [facility] Comment on above: Performed By: #### G FR, BMP #### [address] [address] Basophils/100 WBC (Bld) 0.9 % Normal 0.0-2.5 [facility] Comment on above: Performed By: #### G FR, BMP #### [address] [address] Eosinophil, Absolute 0.3 10 3/mcL Normal 0.0-0.7 [facility] Comment on above: Performed By: #### G FR, BMP #### [address] [address] Eosinophils/100 WBC (Bld) 2.5 % Normal 0.0-6.0 [facility] Comment on above: Performed By: #### G FR, BMP #### [facility] [address] [place] [address] Lymphocyte, Absolute 1.2 10 3/mcL Normal 0.9-4.3 [facility] Comment on above: Performed By: #### G FR, BMP #### [facility] [address] [place] [address] Lymphocytes/100 WBC (Bld) 10.3 % Low 20.0-40.0 [facility] Comment on above: Performed By: #### G FR, BMP #### [facility] [address] [place] [address] Monocyte, Absolute 1.0 10 3/mcL Normal 0.1-1.4 [facility] Comment on above: Performed By: #### G FR, BMP #### [facility] [address] [place] [address] Monocytes/100 WBC (Bld) 9.0 % Normal 2.0-13.0 [facility] Comment on above: Performed By: #### G FR, BMP #### [facility] [address] [place] [address] Neutrophils/100 WBC (Bld) 77.3 % High 50.0-75.0 [facility] Comment on above: Performed By: #### G FR, BMP #### [facility] [address] [place] [address] .GFRon 06-30-2024 Estimated Glomerular Filtration Rate 33 ml/min/1.73sqm Normal [facility] Comment on above: Result Comment: [...] By: #### G FR, BMP #### [address] [address] .NEUABSon 06-30-2024 Neutrophil, Absolute 10.1 10 3/mcL High 2.3-8.1 [facility] Comment on above: Performed By: #### C MP, MG, GFR #### [place] [id number] Neutrophil, Absolute 8.8 10 3/mcL High 2.3-8.1 [facility] Comment on above: Performed By: #### G FR, BMP #### [address] 06-30-2024 BUN/Creatinine Ratio 27.2 ratio High 10.0-22.0 [facility] Comment on above: Performed By: #### G FR, BMP #### [place] [address] Calcium [Mass/Vol] 8.8 mg/dL Normal 8.7-10.4 [facility] Comment on above: Performed By: #### G FR, BMP #### [address] [address] Chloride [Moles/Vol] 100 mmol/L Normal 98-110 [facility] Comment on above: Performed By: #### G FR, BMP #### [place] [phone] CO2 [Moles/Vol] 31 mmol/L Normal 22-32 [facility] Comment on above: Performed By: #### G FR, BMP #### [address] [address] Creatinine [Mass/Vol] 1.58 mg/dL High 0.50-1.20 [facility] Comment on above: Result Comment: Test ing performed on Official Limited Virtual analyzer using enzymatic creatinine methodology. Performed By: #### G FR, BMP #### [address] [address] Electrolyte Balance 5.0 mEq/L Normal 4.0-15.0 [facility] Comment on above: Performed By: #### G FR, BMP #### [address] [address] Glucose [Mass/Vol] 95 mg/dL Normal 82-115 [facility] Comment on above: Performed By: #### G FR, BMP #### [address] [address] Potassium [Moles/Vol] 4.2 mmol/L Normal 3.5-5.0 [facility] Comment on above: Performed By: #### G FR, BMP #### [address] [address] Sodium [Moles/Vol] 136 mmol/L Normal 136-145 [facility] Comment on above: Performed By: #### G FR, BMP #### [address] [address] Urea nitrogen [Mass/Vol] 43.0 mg/dL High 8.0-22.0 [facility] Comment on above: Performed By: #### G FR, BMP #### [address] [address] CBCon 06-30-2024 Erythrocyte distribution width (RBC) [Ratio] 14.9 % Normal 11.5-15.5 [facility] Comment on above: Performed By: #### C MP, MG, GFR #### [address] [address] Hematocrit (Bld) [Volume fraction] 35.9 % Normal 34.0-46.0 [facility] Comment on above: Performed By: #### C MP, MG, GFR #### [address] [address] Hgb 12.2 G/dL Normal 12.0-16.0 [facility] Comment on above: Performed By: #### C MP, MG, GFR #### [address] [address] MCH (RBC) [Entitic mass] 30.0 pg Normal 27.0-33.0 [facility] Comment on above: Performed By: #### C MP, MG, GFR #### [place] [phone] MCHC 33.9 G/dL Normal 32.0-36.0 [facility] Comment on above: Performed By: #### C MP, MG, GFR #### [place] [phone] MCV (RBC) [Entitic vol] 88.4 fL Normal 80.0-99.0 [facility] Comment on above: Performed By: #### C MP, MG, GFR #### [place] [address] Platelet 331 10 3/mcL Normal 150-450 [facility] Comment on above: Performed By: #### C MP, MG, GFR #### [place] [address] Platelet mean volume (Bld) [Entitic vol] 7.6 fL Normal 6.6-10.5 [facility] Comment on above: Performed By: #### C MP, MG, GFR #### [place] [address] RBC 4.06 10 6/mcL Low 4.10-5.30 [facility] Comment on above: Performed By: #### C MP, MG, GFR #### [place] [phone] WBC 12.6 10 3/mcL High 4.5-10.8 [facility] Comment on above: Performed By: #### C MP, MG, GFR #### [place] [address] Erythrocyte distribution width (RBC) [Ratio] 14.9 % Normal 11.5-15.5 [facility] Comment on above: Performed By: #### G FR, BMP #### [place] [address] Hematocrit (Bld) [Volume fraction] 35.7 % Normal 34.0-46.0 [facility] Comment on above: Performed By: #### G FR, BMP #### [place] [address] Hgb 12.4 G/dL Normal 12.0-16.0 [facility] Comment on above: Performed By: #### G , BMP #### [place] [address] MCH (RBC) [Entitic mass] 31.1 pg Normal 27.0-33.0 [facility] Comment on above: Performed By: #### G FR, BMP #### [place] [address] MCHC 34.6 G/dL Normal 32.0-36.0 [facility] Comment on above: Performed By: #### G FR, BMP #### [place] [address] MCV (RBC) [Entitic vol] 90.0 fL Normal 80.0-99.0 [facility] Comment on above: Performed By: #### G FR, BMP #### [place] [address] Platelet 329 10 3/mcL Normal 150-450 [facility] Comment on above: Performed By: #### G , BMP #### [place] [address] Platelet mean volume (Bld) [Entitic vol] 7.2 fL Normal 6.6-10.5 [facility] Comment on above: Performed By: #### G FR, BMP #### [place] [address] RBC 3.97 10 6/mcL Low 4.10-5.30 [facility] Comment on above: Performed By: #### G FR, BMP #### [place] [address] WBC 11.4 10 3/mcL High 4.5-10.8 [facility] Comment on above: Performed By: #### G FR, BMP #### [place] [address] CT THORAX W/O CONTRASTon CT THORAX W/O [...] 06/30/2024 8:44:59 AM Ordering Provider: ISAURA JACKSON [facility] MAIN LABORATORYOrdered By: SYSTEM SYSTEM on [...] above: Interpretive Data: T esting performed on Official Limited Virtual analyzer using enzymatic creatinine methodology. Electrolyte Balance [...] 06-30-2024 Magnesium [Mass/Vol] 2.2 mg/dL Normal 1.6-2.4 [facility] Comment on above: Performed By: #### G FR, BMP #### [address] [address] .Auto Diffon 06-29-2024 Basophil, Absolute 0.1 10 3/mcL Normal 0.0-0.3 [facility] Comment on above: Performed By: #### A COLLIN, MG, BMP, ADIFF, GFR, CBC, HFP #### [address] [address] Basophils/100 WBC (Bld) 0.9 % Normal 0.0-2.5 [facility] Comment on above: Performed By: #### A COLLIN, MG, BMP, ADIFF, GFR, CBC, HFP #### [address] [address] Eosinophil, Absolute 0.2 10 3/mcL Normal 0.0-0.7 [facility] Comment on above: Performed By: #### A COLLIN, MG, BMP, ADIFF, GFR, CBC, HFP #### [address] [address] Eosinophils/100 WBC (Bld) 2.2 % Normal 0.0-6.0 [facility] Comment on above: Performed By: #### A COLLIN, MG, BMP, ADIFF, GFR, CBC, HFP #### [address] [address] Lymphocyte, Absolute 1.1 10 3/mcL Normal 0.9-4.3 [facility] Comment on above: Performed By: #### A COLLIN, MG, BMP, ADIFF, GFR, CBC, HFP #### [address] [address] Lymphocytes/100 WBC (Bld) 9.6 % Low 20.0-40.0 [facility] Comment on above: Performed By: #### A COLLIN, MG, BMP, ADIFF, GFR, CBC, HFP #### [address] [address] Monocyte, Absolute 0.9 10 3/mcL Normal 0.1-1.4 [facility] Comment on above: Performed By: #### A COLLIN, MG, BMP, ADIFF, GFR, CBC, HFP #### [address] [address] Monocytes/100 WBC (Bld) 7.9 % Normal 2.0-13.0 [facility] Comment on above: Performed By: #### A COLLIN, MG, BMP, ADIFF, GFR, CBC, HFP #### [address] [address] Neutrophils/100 WBC (Bld) 79.4 % High 50.0-75.0 [facility] Comment on above: Performed By: #### A COLLIN, MG, BMP, ADIFF, GFR, CBC, HFP #### [address] [address] .GFRon 06-29-2024 Estimated Glomerular Filtration Rate 37 ml/min/1.73sqm Normal [facility] Comment on above: Result Comment: [...] BMP, ADIFF, GFR, CBC, HFP #### [address] [address] .NEUABSon 06-29-2024 Neutrophil, Absolute 8.7 10 3/mcL High 2.3-8.1 [facility] Comment on above: Performed By: #### A COLLIN, MG, BMP, ADIFF, GFR, CBC, HFP #### [address] [address] [facility] BUN/Creatinine Ratio 20.4 ratio Normal 10.0-22.0 [facility] Comment on above: Performed By: #### A COLLIN, MG, BMP, ADIFF, GFR, CBC, HFP #### [address] [address] Calcium [Mass/Vol] 9.5 mg/dL Normal 8.7-10.4 [facility] Comment on above: Performed By: #### A COLLIN, MG, BMP, ADIFF, GFR, CBC, HFP #### [address] [address] Chloride [Moles/Vol] 98 mmol/L Normal 98-110 [facility] Comment on above: Performed By: #### A COLLIN, MG, BMP, ADIFF, GFR, CBC, HFP #### [address] [address] CO2 [Moles/Vol] 34 mmol/L High 22-32 [facility] Comment on above: Performed By: #### A COLLIN, MG, BMP, ADIFF, GFR, CBC, HFP #### [address] [address] Creatinine [Mass/Vol] 1.42 mg/dL High 0.50-1.20 [facility] Comment on above: Result Comment: Test ing performed on Official Limited Virtual analyzer using enzymatic creatinine methodology. Performed By: #### A COLLIN, MG, BMP, ADIFF, GFR, CBC, HFP #### [address] [address] Electrolyte Balance 7.0 mEq/L Normal 4.0-15.0 [facility] Comment on above: Performed By: #### A COLLIN, MG, BMP, ADIFF, GFR, CBC, HFP #### [address] [address] Glucose [Mass/Vol] 83 mg/dL Normal 82-115 [facility] Comment on above: Performed By: #### A COLLIN, MG, BMP, ADIFF, GFR, CBC, HFP #### [address] [address] Potassium [Moles/Vol] 3.3 mmol/L Low 3.5-5.0 [facility] Comment on above: Performed By: #### A COLLIN, MG, BMP, ADIFF, GFR, CBC, HFP #### [address] [address] Sodium [Moles/Vol] 139 mmol/L Normal 136-145 [facility] Comment on above: Performed By: #### A COLLIN, MG, BMP, ADIFF, GFR, CBC, HFP #### [address] [address] Urea nitrogen [Mass/Vol] 29.0 mg/dL High 8.0-22.0 [facility] Comment on above: Performed By: #### A COLLIN, MG, BMP, ADIFF, GFR, CBC, HFP #### [address] [address] CBCon 06-29-2024 Erythrocyte distribution width (RBC) [Ratio] 15.0 % Normal 11.5-15.5 [facility] Comment on above: Performed By: #### A COLLIN, MG, BMP, ADIFF, GFR, CBC, HFP #### [place] [address] Hematocrit (Bld) [Volume fraction] 37.7 % Normal 34.0-46.0 [facility] Comment on above: Performed By: #### A COLLIN, MG, BMP, ADIFF, GFR, CBC, HFP #### [place] [address] Hgb 13.2 G/dL Normal 12.0-16.0 [facility] Comment on above: Performed By: #### A COLLIN, MG, BMP, ADIFF, GFR, CBC, HFP #### [place] [address] MCH (RBC) [Entitic mass] 30.9 pg Normal 27.0-33.0 [facility] Comment on above: Performed By: #### A COLLIN, MG, BMP, ADIFF, GFR, CBC, HFP #### [place] [address] MCHC 35.0 G/dL Normal 32.0-36.0 [facility] Comment on above: Performed By: #### A COLLIN, MG, BMP, ADIFF, GFR, CBC, HFP #### [place] [address] MCV (RBC) [Entitic vol] 88.3 fL Normal 80.0-99.0 [facility] Comment on above: Performed By: #### A COLLIN, MG, BMP, ADIFF, GFR, CBC, HFP #### [place] [address] Platelet 342 10 3/mcL Normal 150-450 [facility] Comment on above: Performed By: #### A COLLIN, MG, BMP, ADIFF, GFR, CBC, HFP #### [place] [address] Platelet mean volume (Bld) [Entitic vol] 7.3 fL Normal 6.6-10.5 [facility] Comment on above: Performed By: #### A COLLIN, MG, BMP, ADIFF, GFR, CBC, HFP #### [place] [id number] [place] [address] RBC 4.27 10 6/mcL Normal 4.10-5.30 [facility] Comment on above: Performed By: #### A COLLIN, MG, BMP, ADIFF, GFR, CBC, HFP #### [place] [id number] [place] [address] WBC 11.0 10 3/mcL High 4.5-10.8 [facility] Comment on above: Performed By: #### A COLLIN, MG, BMP, ADIFF, GFR, CBC, HFP #### [address] [address] LABORATORYOrdered By: SYSTEM SYSTEM on 06-29-2024 Calcium [...] above: Interpretive Data: T esting performed on Official Limited Virtual analyzer using enzymatic creatinine methodology. Electrolyte Balance [...] 06-29-2024 Magnesium [Mass/Vol] 2.2 mg/dL Normal 1.6-2.4 [facility] Comment on above: Performed By: #### A COLLIN, MG, BMP, ADIFF, GFR, CBC, HFP #### [place] [address] .Auto Diffon 06-28-2024 Basophil, Absolute 0.0 10 3/mcL Normal 0.0-0.2 [facility] Comment on above: Performed By: #### M DW, MG, GFR, BMP, CBC, ANEU, TROPHS, ADIFF #### [address] [address] Basophils/100 WBC (Bld) 0.3 % Normal 0.0-2.5 [facility] Comment on above: Performed By: #### M DW, MG, GFR, BMP, CBC, ANEU, TROPHS, ADIFF #### [address] [address] Eosinophil, Absolute 0.2 10 3/mcL Normal 0.0-0.7 [facility] Comment on above: Performed By: #### M DW, MG, GFR, BMP, CBC, ANEU, TROPHS, ADIFF #### [address] [address] Eosinophils/100 WBC (Bld) 1.6 % Normal 0.0-7.0 [facility] Comment on above: Performed By: #### M DW, MG, GFR, BMP, CBC, ANEU, TROPHS, ADIFF #### [address] [address] Lymphocyte, Absolute 1.2 10 3/mcL Normal 0.9-4.3 [facility] Comment on above: Performed By: #### M DW, MG, GFR, BMP, CBC, ANEU, TROPHS, ADIFF #### [address] [address] Lymphocytes/100 WBC (Bld) 9.7 % Low 20.0-40.0 [facility] Comment on above: Performed By: #### M DW, MG, GFR, BMP, CBC, ANEU, TROPHS, ADIFF #### [address] [address] Monocyte, Absolute 0.9 10 3/mcL Normal 0.1-1.4 [facility] Comment on above: Performed By: #### M DW, MG, GFR, BMP, CBC, ANEU, TROPHS, ADIFF #### [address] [address] Monocytes/100 WBC (Bld) 7.4 % Normal 2.0-13.0 [facility] Comment on above: Performed By: #### M DW, MG, GFR, BMP, CBC, ANEU, TROPHS, ADIFF #### [address] [address] Neutrophils/100 WBC (Bld) 80.8 % High 50.0-75.0 [facility] Comment on above: Performed By: #### M DW, MG, GFR, BMP, CBC, ANEU, TROPHS, ADIFF #### [address] [address] .GFRon 06-28-2024 Estimated Glomerular Filtration Rate 42 ml/min/1.73sqm Normal [facility] Comment on above: Result Comment: Stages of [...] GFR, BMP, CBC, ANEU, TROPHS, ADIFF #### [address] [address] .MDWon 06-28-2024 Monocyte Distribution Width Not tested Normal 0.00-20.00 [facility] Comment on above: Result Comment: MDW testing unable to be performed on [id number] instrumentation. Performed By: #### M DW, MG, GFR, BMP, CBC, ANEU, TROPHS, ADIFF #### [address] [address] .NEUABSon 06-28-2024 Neutrophil, Absolute 10.2 10 3/mcL High 2.3-8.1 [facility] Comment on above: Performed By: #### M DW, MG, GFR, BMP, CBC, ANEU, TROPHS, ADIFF #### [address] [address] BMPon 06-28-2024 BUN/Creatinine Ratio 23 ratio Normal 7-27 [facility] Comment on above: Performed By: #### M DW, MG, GFR, BMP, CBC, ANEU, TROPHS, ADIFF #### [address] [address] Calcium [Mass/Vol] 9.4 mg/dL Normal 8.4-10.2 [facility] Comment on above: Performed By: #### M DW, MG, GFR, BMP, CBC, ANEU, TROPHS, ADIFF #### [address] [address] Chloride [Moles/Vol] 101 mmol/L Normal 98-107 [facility] Comment on above: Performed By: #### M DW, MG, GFR, BMP, CBC, ANEU, TROPHS, ADIFF #### [address] [address] CO2 [Moles/Vol] 32 mmol/L High 23-31 [facility] Comment on above: Performed By: #### M DW, MG, GFR, BMP, CBC, ANEU, TROPHS, ADIFF #### [address] [address] Creatinine [Mass/Vol] 1.28 mg/dL High 0.55-1.02 [facility] Comment on above: Result Comment: Test ing performed on Siemens Dimension EXL analyzer using a modified kinetic Josse technique. Performed By: #### M DW, MG, GFR, BMP, CBC, ANEU, TROPHS, ADIFF #### [address] [address] Electrolyte Balance 6.0 mEq/L Normal 4.0-15.0 [facility] Comment on above: Performed By: #### M DW, MG, GFR, BMP, CBC, ANEU, TROPHS, ADIFF #### [address] [address] Glucose [Mass/Vol] 122 mg/dL High 83-110 [facility] Comment on above: Performed By: #### M DW, MG, GFR, BMP, CBC, ANEU, TROPHS, ADIFF #### [address] [address] Potassium [Moles/Vol] 3.7 mmol/L Normal 3.5-5.1 [facility] Comment on above: Performed By: #### M DW, MG, GFR, BMP, CBC, ANEU, TROPHS, ADIFF #### [address] [address] Sodium [Moles/Vol] 139 mmol/L Normal 136-145 [facility] Comment on above: Performed By: #### M DW, MG, GFR, BMP, CBC, ANEU, TROPHS, ADIFF #### [address] [address] Urea nitrogen [Mass/Vol] 29 mg/dL High 7-18 [facility] Comment on above: Performed By: #### M DW, MG, GFR, BMP, CBC, ANEU, TROPHS, ADIFF #### [address] [address] CBCon 06-28-2024 Erythrocyte distribution width (RBC) [Ratio] 14.4 % Normal 11.5-15.5 [facility] Comment on above: Performed By: #### M DW, MG, GFR, BMP, CBC, ANEU, TROPHS, ADIFF #### [address] [address] Hematocrit (Bld) [Volume fraction] 39.2 % Normal 34.0-46.0 [facility] Comment on above: Performed By: #### M DW, MG, GFR, BMP, CBC, ANEU, TROPHS, ADIFF #### [address] [address] Hgb 13.9 G/dL Normal 12.0-16.0 [facility] Comment on above: Performed By: #### M DW, MG, GFR, BMP, CBC, ANEU, TROPHS, ADIFF #### [address] [address] MCH (RBC) [Entitic mass] 31.0 pg Normal 27.0-33.0 [facility] Comment on above: Performed By: #### M DW, MG, GFR, BMP, CBC, ANEU, TROPHS, ADIFF #### [address] [address] MCHC 35.5 G/dL Normal 32.0-36.0 [facility] Comment on above: Performed By: #### M DW, MG, GFR, BMP, CBC, ANEU, TROPHS, ADIFF #### [address] [address] MCV (RBC) [Entitic vol] 87.2 fL Normal 80.0-99.0 [facility] Comment on above: Performed By: #### M DW, MG, GFR, BMP, CBC, ANEU, TROPHS, ADIFF #### [address] [address] Platelet 338 10 3/mcL Normal 150-450 [facility] Comment on above: Performed By: #### M DW, MG, GFR, BMP, CBC, ANEU, TROPHS, ADIFF #### [place] [address] Platelet mean volume (Bld) [Entitic vol] 7.1 fL Normal 6.6-10.5 [facility] Comment on above: Performed By: #### M DW, MG, GFR, BMP, CBC, ANEU, TROPHS, ADIFF #### [place] [address] RBC 4.49 10 6/mcL Normal 4.10-5.30 [facility] Comment on above: Performed By: #### M DW, MG, GFR, BMP, CBC, ANEU, TROPHS, ADIFF #### [place] [address] WBC 12.6 10 3/mcL High 4.5-10.8 [facility] Comment on above: Performed By: #### M DW, MG, GFR, BMP, CBC, ANEU, TROPHS, ADIFF #### [place] [address] CVFLURVon 06-28-2024 FLU A PCR Negative Normal Negative [facility] Comment on above: Performed By: #### M DW, MG, GFR, BMP, CBC, ANEU, TROPHS, ADIFF #### [place] [address] FLU B PCR Negative Normal Negative [facility] Comment on above: Performed By: #### M DW, MG, GFR, BMP, CBC, ANEU, TROPHS, ADIFF #### [place] [address] RSV PCR Negative Normal Negative [facility] Comment on above: Performed By: #### M DW, MG, GFR, BMP, CBC, ANEU, TROPHS, ADIFF #### [place] [address] SARS-CoV-2 (COVID-19) RNA MARISELA+probe Ql (Unsp spec) Negative Normal Negative [facility] Comment on above: Result Comment: Resu lts [...] CBC, ANEU, TROPHS, ADIFF #### [place] [address] LABORATORYOrdered By: SYSTEM SYSTEM on 06-28-2024 Troponin I.cardiac DL <= 0.01 ng/mL [Mass/Vol] 88 ng/L High 0 - 34 ng/L [facility] Comment on above: Interpretive Data: High Sensitive Troponin I Reference Ranges: Female: 0-34 ng/L Male: 0-54 ng/L Testing performed on MulliganPlus analyzer using direct chemiluminescent technology. PBNPon 06-28-2024 Natriuretic peptide B (Bld) [Mass/Vol] 8302 pg/mL High 0-450 [facility] Comment on above: Result Comment: NT-p roBNP results of less than 300 pg/mL effectively rules out acute congestive heart failure with 99% negative predictive value. Performed By: #### M DW, MG, GFR, BMP, CBC, ANEU, TROPHS, ADIFF #### [place] [id number] [place], [place] [address]Son 06-28-2024 High Sensitivity Troponin I 88 ng/L High 0-34 [facility] Comment on above: Result Comment: High Sensitive Troponin I Reference Ranges: Female: 0-34 ng/L Male: 0-54 ng/L Testing performed on Rizzoma IM analyzer using direct chemiluminescent technology. Performed By: #### A COLLIN, MG, BMP, ADIFF, GFR, CBC, HFP #### [facility] [address] [place] [address] High Sensitivity Troponin I 154 ng/L High 0-51 [facility] Comment on above: Result Comment: High Sensitive Troponin I Reference Ranges: Female: 0-51 ng/L Male: 0-76 ng/L Testing performed on [employer] using a homogeneous sandwich chemiluminescent immunoassay based on Germin8 technology. Performed By: #### M DW, MG, GFR, BMP, CBC, ANEU, TROPHS, ADIFF #### [facility] [address] [place], [place] [address] XR CHEST 1 VIEWon 06-28-2024 XR CHEST [...] 06/28/2024 2:04:30 AM Ordering Provider: TIN HOFFMAN [facility] .GFRon 06-26-2024 Estimated Glomerular Filtration Rate 40 ml/min/1.73sqm [facility] Comment on above: Result Comment: Stages of [...] GFR, BMP, CBC, ANEU, TROPHS, ADIFF #### [address] [address] BMPon 06-26-2024 BUN/Creatinine Ratio 24 ratio Normal 7-27 [facility] Comment on above: Performed By: #### M DW, MG, GFR, BMP, CBC, ANEU, TROPHS, ADIFF #### [address] [address] Calcium [Mass/Vol] 9.8 mg/dL Normal 8.4-10.2 [facility] Comment on above: Performed By: #### M DW, MG, GFR, BMP, CBC, ANEU, TROPHS, ADIFF #### [address] [address] Chloride [Moles/Vol] 100 mmol/L Normal 98-107 [facility] Comment on above: Performed By: #### M DW, MG, GFR, BMP, CBC, ANEU, TROPHS, ADIFF #### [address] [address] CO2 [Moles/Vol] 32 mmol/L High 23-31 [facility] Comment on above: Performed By: #### M DW, MG, GFR, BMP, CBC, ANEU, TROPHS, ADIFF #### [address] [address] Creatinine [Mass/Vol] 1.34 mg/dL High 0.55-1.02 [facility] Comment on above: Result Comment: Test ing performed on Siemens Dimension EXL analyzer using a modified kinetic Josse technique. Performed By: #### M DW, MG, GFR, BMP, CBC, ANEU, TROPHS, ADIFF #### [address] [address] Electrolyte Balance 6.0 mEq/L Normal 4.0-15.0 [facility] Comment on above: Performed By: #### M DW, MG, GFR, BMP, CBC, ANEU, TROPHS, ADIFF #### [address] [address] Glucose [Mass/Vol] 99 mg/dL Normal 83-110 [facility] Comment on above: Performed By: #### M DW, MG, GFR, BMP, CBC, ANEU, TROPHS, ADIFF #### [address] [address] Potassium [Moles/Vol] 4.2 mmol/L Normal 3.5-5.1 [facility] Comment on above: Performed By: #### M DW, MG, GFR, BMP, CBC, ANEU, TROPHS, ADIFF #### [address] [address] Sodium [Moles/Vol] 138 mmol/L Normal 136-145 [facility] Comment on above: Performed By: #### M DW, MG, GFR, BMP, CBC, ANEU, TROPHS, ADIFF #### [address] [address] Urea nitrogen [Mass/Vol] 32 mg/dL High - [facility] Comment on above: Performed By: #### M DW, MG, GFR, BMP, CBC, ANEU, TROPHS, ADIFF #### [address] [address] CAIONon 06-26-2024 Calcium Ionized 1.19 mmol/L Normal 1.12-1.32 [facility] Comment on above: Performed By: #### M DW, MG, GFR, BMP, CBC, ANEU, TROPHS, ADIFF #### [address] [address] PTHon 06-26-2024 PTH, Intact 141.0 pg/mL High 18.5-88.0 [facility] Comment on above: Performed By: #### M DW, MG, GFR, BMP, CBC, ANEU, TROPHS, ADIFF #### [facility] [address] [place], [place] [address] .Auto Diffon 06-19-2024 Basophil, Absolute 0.1 10 3/mcL Normal 0.0-0.3 [facility] Comment on above: Performed By: #### G FR, BMP #### [address] [address] Basophils/100 WBC (Bld) 1.1 % Normal 0.0-2.5 [facility] Comment on above: Performed By: #### G FR, BMP #### [address] [address] Eosinophil, Absolute 0.1 10 3/mcL Normal 0.0-0.7 [facility] Comment on above: Performed By: #### G FR, BMP #### [address] [address] Eosinophils/100 WBC (Bld) 1.2 % Normal 0.0-6.0 [facility] Comment on above: Performed By: #### G FR, BMP #### [address] [address] Lymphocyte, Absolute 0.8 10 3/mcL Low 0.9-4.3 [facility] Comment on above: Performed By: #### G FR, BMP #### [address] [address] Lymphocytes/100 WBC (Bld) 7.8 % Low 20.0-40.0 [facility] Comment on above: Performed By: #### G FR, BMP #### [address] [address] Monocyte, Absolute 0.8 10 3/mcL Normal 0.1-1.4 [facility] Comment on above: Performed By: #### G FR, BMP #### [address] [address] Monocytes/100 WBC (Bld) 8.2 % Normal 2.0-13.0 [facility] Comment on above: Performed By: #### G FR, BMP #### [address] [address] Neutrophils/100 WBC (Bld) 81.7 % High 50.0-75.0 [facility] Comment on above: Performed By: #### G FR, BMP #### [address] [address] .GFRon 06-19-2024 Estimated Glomerular Filtration Rate 55 ml/min/1.73sqm [facility] Comment on above: Result Comment: [...] BMP, ADIFF, GFR, CBC, HFP #### [address] [address] Estimated Glomerular Filtration Rate 53 ml/min/1.73sqm [facility] Comment on above: Result Comment: [...] By: #### G FR, BMP #### [address] [address] .NEUABSon 06-19-2024 Neutrophil, Absolute 8.4 10 3/mcL High 2.3-8.1 [facility] Comment on above: Performed By: #### G FR, BMP #### [address] [address] BGRPon 06-19-2024 Base Excess - POC 6.3 mmol/L Normal [facility] Comment on above: Performed By: #### C MP, MG, GFR #### [place] [address] CO2 [Moles/Vol] 31.3 mmol/L High 22.0-30.0 [facility] Comment on above: Performed By: #### C MP, MG, GFR #### [place] [address] HCO3 (Bld) [Moles/Vol] 30.1 mmol/L High 21.0-29.0 [facility] Comment on above: Performed By: #### C MP, MG, GFR #### [place] [address] Oxygen saturation in Blood 73.8 % Low 92.0-96.0 [facility] Comment on above: Performed By: #### C MP, MG, GFR #### [place] [address] PCO2 - POC 40.3 mmHg Normal 32.0-46.0 [facility] Comment on above: Performed By: #### C MP, MG, GFR #### [place] [address] pH (poct) - POC 7.491 High 7.380-7.460 [facility] Comment on above: Performed By: #### C MP, MG, GFR #### [place] [address] PO2 - POC 37.7 mmHg Low 74.0-108.0 [facility] Comment on above: Performed By: #### C MP, MG, GFR #### [address] [address] BMPon 06-19-2024 BUN/Creatinine Ratio 17.5 ratio Normal 10.0-22.0 [facility] Comment on above: Performed By: #### A COLLIN, MG, BMP, ADIFF, GFR, CBC, HFP #### [address] [address] Calcium [Mass/Vol] 9.7 mg/dL Normal 8.7-10.4 [facility] Comment on above: Performed By: #### A COLLIN, MG, BMP, ADIFF, GFR, CBC, HFP #### [place] [id number] Chloride [Moles/Vol] 100 mmol/L Normal 98-110 [facility] Comment on above: Performed By: #### A COLLIN, MG, BMP, ADIFF, GFR, CBC, HFP #### [place] [id number] CO2 [Moles/Vol] 36 mmol/L High 22-32 [facility] Comment on above: Performed By: #### A COLLIN, MG, BMP, ADIFF, GFR, CBC, HFP #### [place] [phone] Creatinine [Mass/Vol] 1.03 mg/dL Normal 0.50-1.20 [facility] Comment on above: Result Comment: Test ing performed on Official [employer] Virtual analyzer using enzymatic creatinine methodology. Performed By: #### A COLLIN, MG, BMP, ADIFF, GFR, CBC, HFP #### [place] [id number] Electrolyte Balance 3.0 mEq/L Low 4.0-15.0 [facility] Comment on above: Performed By: #### A COLLIN, MG, BMP, ADIFF, GFR, CBC, HFP #### [place] [id number] Glucose [Mass/Vol] 92 mg/dL Normal 82-115 [facility] Comment on above: Performed By: #### A COLLIN, MG, BMP, ADIFF, GFR, CBC, HFP #### [address] [address] Potassium [Moles/Vol] 3.4 mmol/L Low 3.5-5.0 [facility] Comment on above: Performed By: #### A COLLIN, MG, BMP, ADIFF, GFR, CBC, HFP #### [address] [address] Sodium [Moles/Vol] 139 mmol/L Normal 136-145 [facility] Comment on above: Performed By: #### A COLLIN, MG, BMP, ADIFF, GFR, CBC, HFP #### [address] [address] Urea nitrogen [Mass/Vol] 18.0 mg/dL Normal 8.0-22.0 [facility] Comment on above: Performed By: #### A COLLIN, MG, BMP, ADIFF, GFR, CBC, HFP #### [address] [address] BUN/Creatinine Ratio 17.9 ratio Normal 10.0-22.0 [facility] Comment on above: Performed By: #### G FR, BMP #### [address] [address] Calcium [Mass/Vol] 9.9 mg/dL Normal 8.7-10.4 [facility] Comment on above: Performed By: #### G FR, BMP #### [address] [address] Chloride [Moles/Vol] 98 mmol/L Normal 98-110 [facility] Comment on above: Performed By: #### G FR, BMP #### [address] [address] CO2 [Moles/Vol] 35 mmol/L High 22-32 [facility] Comment on above: Performed By: #### G FR, BMP #### [address] [address] Creatinine [Mass/Vol] 1.06 mg/dL Normal 0.50-1.20 [facility] Comment on above: Result Comment: Test ing performed on Official [employer] Virtual analyzer using enzymatic creatinine methodology. Performed By: #### G FR, BMP #### [address] [address] Electrolyte Balance 6.0 mEq/L Normal 4.0-15.0 [facility] Comment on above: Performed By: #### Ed WAGNER, BMP #### [place] [phone] Glucose [Mass/Vol] 92 mg/dL Normal 82-115 [facility] Comment on above: Performed By: #### Ed WAGNER, BMP #### [place] [address] Potassium [Moles/Vol] 2.7 mmol/L Critically abnormal 3.5-5.0 [facility] Comment on above: Performed By: #### Ed WAGNER, BMP #### [place] [phone] Sodium [Moles/Vol] 139 mmol/L Normal 136-145 [facility] Comment on above: Performed By: #### Ed WAGNER, BMP #### [place] [address] Urea nitrogen [Mass/Vol] 19.0 mg/dL Normal 8.0-22.0 [facility] Comment on above: Performed By: #### Ed WAGNER, BMP #### [address] 06-19-2024 Ionized Calcium - POC 1.16 mmol/L Normal 1.12-1.32 [facility] Comment on above: Performed By: #### Ed WAGNER, BMP #### [address] 06-19-2024 Erythrocyte distribution width (RBC) [Ratio] 14.7 % Normal 11.5-15.5 [facility] Comment on above: Performed By: #### Ed WAGNER, BMP #### [place] [phone] Hematocrit (Bld) [Volume fraction] 38.3 % Normal 34.0-46.0 [facility] Comment on above: Performed By: #### Ed WAGNER, BMP #### [place] [address] Hgb 13.6 G/dL Normal 12.0-16.0 [facility] Comment on above: Performed By: #### G FR, BMP #### [place] [address] MCH (RBC) [Entitic mass] 31.6 pg Normal 27.0-33.0 [facility] Comment on above: Performed By: #### G FR, BMP #### [place] [address] MCHC 35.6 G/dL Normal 32.0-36.0 [facility] Comment on above: Performed By: #### G FR, BMP #### [place] [address] MCV (RBC) [Entitic vol] 88.7 fL Normal 80.0-99.0 [facility] Comment on above: Performed By: #### G FR, BMP #### [place] [address] Platelet 267 10 3/mcL Normal 150-450 [facility] Comment on above: Performed By: #### G FR, BMP #### [place] [address] Platelet mean volume (Bld) [Entitic vol] 7.2 fL Normal 6.6-10.5 [facility] Comment on above: Performed By: #### G FR, BMP #### [place] [address] RBC 4.32 10 6/mcL Normal 4.10-5.30 [facility] Comment on above: Performed By: #### G FR, BMP #### [place] [address] WBC 10.3 10 3/mcL Normal 4.5-10.8 [facility] Comment on above: Performed By: #### G FR, BMP #### [place] [address] CLRPon 06-19-2024 Chloride [Moles/Vol] 96 mmol/L Low 98-110 [facility] Comment on above: Performed By: #### C MP, MG, GFR #### [place] [address] GLURPon 06-19-2024 Glucose [Mass/Vol] 85 mg/dL Normal 82-115 [facility] Comment on above: Performed By: #### G FR, BMP #### [place] [address] HCTRPon 06-19-2024 Hematocrit (Bld) [Volume fraction] 39.0 % Normal 37.0-47.0 [facility] Comment on above: Performed By: #### G FR, BMP #### [place] [address] HGBRPon 06-19-2024 Hemoglobin (POC) 13.3 G/dL Normal 12.0-16.0 [facility] Comment on above: Performed By: #### C MP, MG, GFR #### [place] [address] KRPon 06-19-2024 Potassium [Moles/Vol] 3.2 mmol/L Low 3.5-5.0 [facility] Comment on above: Performed By: #### G FR, BMP #### [place] [address] LABORATORYOrdered By: SYSTEM SYSTEM on 06-19-2024 Calcium [Mass/Vol] 9.7 mg/dL Normal 8.7 - 10. 4 mg/dL ADM SS Chloride [Moles/Vol] 100 mmol/L Normal 98 - 11 0 mEq/L AH ADM SS CO2 [Moles/Vol] 36 mmol/L High 22 - 32 mEq/L ADM SS Creatinine [Mass/Vol] 1.03 mg/dL Normal 0.50 - 1.20 mg/dL ADM SS Comment on above: Interpretive Data: T esting performed on Official Limited Virtual analyzer using enzymatic creatinine methodology. Electrolyte Balance [...] above: Interpretive Data: T esting performed on Official Limited Virtual analyzer using enzymatic creatinine methodology. Electrolyte Balance [...] Comment on above: Interpretive Data: Jatinder samano [employer] (CHEST, 1991, 102:312S-25S) [...] 06-19-2024 Sodium [Moles/Vol] 136 mmol/L Normal 136-145 [facility] Comment on above: Performed By: #### G , BMP #### [address] [address] PROon 06-19-2024 INR Coag (PPP) [Relative time] 1.3 {INR} Normal [facility] Comment on above: Result Comment: [employer] (CHEST, 1991, 102:[id number]) recommended therapeutic range for oral anticoagulant therapy is: LOW RISK: Prophylaxis of venous thrombosis INR: 2.0-3.0 Treatment of pulmonary embolism 2.0-3.0 Prevention of systemic embolism 2.0-3.0 HIGH RISK: Mechanical prosthetic valves 2.5-3.5 Performed By: #### G FR, BMP #### [address] [address] PT Coag (PPP) [Time] 14.6 s High 9.0-14.4 [facility] Comment on above: Result Comment: Effe ctive 10/24/07, Protime results may be affected by some antibiotics (i.e. Ciprofloxacin, Azithromycin, Bactrim) which may potentiate the action of oral anticoagulants, with further increases in Protime/INR. Performed By: #### G FR, BMP #### [facility] [address] [place] [address] .GFRon 05-28-2024 Estimated Glomerular Filtration Rate 31 ml/min/1.73sqm Normal [facility] Comment on above: Result Comment: Stages of [...] GFR, BMP, CBC, ANEU, TROPHS, ADIFF #### [address] [address] BMPon 05-28-2024 BUN/Creatinine Ratio 24 ratio Normal 7-27 [facility] Comment on above: Performed By: #### M DW, MG, GFR, BMP, CBC, ANEU, TROPHS, ADIFF #### [address] [address] Calcium [Mass/Vol] 9.7 mg/dL Normal 8.4-10.2 [facility] Comment on above: Performed By: #### M DW, MG, GFR, BMP, CBC, ANEU, TROPHS, ADIFF #### [address] [address] Chloride [Moles/Vol] 104 mmol/L Normal 98-107 [facility] Comment on above: Performed By: #### M DW, MG, GFR, BMP, CBC, ANEU, TROPHS, ADIFF #### [address] [address] CO2 [Moles/Vol] 32 mmol/L High 23-31 [facility] Comment on above: Performed By: #### M DW, MG, GFR, BMP, CBC, ANEU, TROPHS, ADIFF #### [address] [address] Creatinine [Mass/Vol] 1.64 mg/dL High 0.55-1.02 [facility] Comment on above: Result Comment: Test ing performed on Siemens Dimension EXL analyzer using a modified kinetic Josse technique. Performed By: #### M DW, MG, GFR, BMP, CBC, ANEU, TROPHS, ADIFF #### [address] [address] Electrolyte Balance 6.0 mEq/L Normal 4.0-15.0 [facility] Comment on above: Performed By: #### M DW, MG, GFR, BMP, CBC, ANEU, TROPHS, ADIFF #### [address] [address] Glucose [Mass/Vol] 93 mg/dL Normal 83-110 [facility] Comment on above: Performed By: #### M DW, MG, GFR, BMP, CBC, ANEU, TROPHS, ADIFF #### [address] [address] Potassium [Moles/Vol] 3.8 mmol/L Normal 3.5-5.1 [facility] Comment on above: Performed By: #### M DW, MG, GFR, BMP, CBC, ANEU, TROPHS, ADIFF #### [address] [address] Sodium [Moles/Vol] 142 mmol/L Normal 136-145 [facility] Comment on above: Performed By: #### M DW, MG, GFR, BMP, CBC, ANEU, TROPHS, ADIFF #### [address] [address] Urea nitrogen [Mass/Vol] 40 mg/dL High 7-18 [facility] Comment on above: Performed By: #### M DW, MG, GFR, BMP, CBC, ANEU, TROPHS, ADIFF #### [place] [address] [place], [place] [address] LABORATORYOrdered By: SYSTEM SYSTEM on 05-28-2024 Calcium [...] 05-28-2024 Magnesium [Mass/Vol] 2.4 mg/dL Normal 1.8-2.4 [facility] Comment on above: Performed By: #### M DW, MG, GFR, BMP, CBC, ANEU, TROPHS, ADIFF #### [address] [address] .GFRon 05-23-2024 Estimated Glomerular Filtration Rate 39 ml/min/1.73sqm Normal [facility] Comment on above: Result Comment: Stages of [...] GFR, BMP, CBC, ANEU, TROPHS, ADIFF #### [address] [address] BMPon 05-23-2024 BUN/Creatinine Ratio 28 ratio High 7-27 [facility] Comment on above: Performed By: #### M DW, MG, GFR, BMP, CBC, ANEU, TROPHS, ADIFF #### [address] [address] Calcium [Mass/Vol] 9.3 mg/dL Normal 8.4-10.2 [facility] Comment on above: Performed By: #### M DW, MG, GFR, BMP, CBC, ANEU, TROPHS, ADIFF #### [address] [address] Chloride [Moles/Vol] 97 mmol/L Low 98-107 [facility] Comment on above: Performed By: #### M DW, MG, GFR, BMP, CBC, ANEU, TROPHS, ADIFF #### [address] [address] CO2 [Moles/Vol] 36 mmol/L High 23-31 [facility] Comment on above: Performed By: #### M DW, MG, GFR, BMP, CBC, ANEU, TROPHS, ADIFF #### [address] [address] Creatinine [Mass/Vol] 1.37 mg/dL High 0.55-1.02 [facility] Comment on above: Result Comment: Test ing performed on [employer] Dimension EXL analyzer using a modified kinetic Josse technique. Performed By: #### M DW, MG, GFR, BMP, CBC, ANEU, TROPHS, ADIFF #### [address] [address] Electrolyte Balance 3.0 mEq/L Low 4.0-15.0 [facility] Comment on above: Performed By: #### M DW, MG, GFR, BMP, CBC, ANEU, TROPHS, ADIFF #### [address] [address] Glucose [Mass/Vol] 94 mg/dL Normal 83-110 [facility] Comment on above: Performed By: #### M DW, MG, GFR, BMP, CBC, ANEU, TROPHS, ADIFF #### [address] [address] Potassium [Moles/Vol] 4.1 mmol/L Normal 3.5-5.1 [facility] Comment on above: Performed By: #### M DW, MG, GFR, BMP, CBC, ANEU, TROPHS, ADIFF #### [address] [address] Sodium [Moles/Vol] 136 mmol/L Normal 136-145 [facility] Comment on above: Performed By: #### M DW, MG, GFR, BMP, CBC, ANEU, TROPHS, ADIFF #### [address] [address] Urea nitrogen [Mass/Vol] 39 mg/dL High 7-18 [facility] Comment on above: Performed By: #### M DW, MG, GFR, BMP, CBC, ANEU, TROPHS, ADIFF #### [address] [place], [place] [address] LABORATORYOrdered By: SYSTEM SYSTEM on 05-23-2024 Calcium [...] above: Interpretive Data: T esting performed on [employer] Dimension EXL analyzer using a modified kinetic [...] 05-23-2024 Magnesium [Mass/Vol] 2.3 mg/dL Normal 1.8-2.4 [facility] Comment on above: Performed By: #### M DW, MG, GFR, BMP, CBC, ANEU, TROPHS, ADIFF #### [address] [address] .GFRon 05-22-2024 Estimated Glomerular Filtration Rate 32 ml/min/1.73sqm Normal [facility] Comment on above: Result Comment: Stages of [...] GFR, CMP, PBNP, CBC, TSH, ADIFF #### [address] [address] BMPon 05-22-2024 BUN/Creatinine Ratio 24 ratio Normal 7-27 [facility] Comment on above: Performed By: #### A COLLIN, GFR, CMP, PBNP, CBC, TSH, ADIFF #### [address] [address] Calcium [Mass/Vol] 9.3 mg/dL Normal 8.4-10.2 [facility] Comment on above: Performed By: #### A COLLIN, GFR, CMP, PBNP, CBC, TSH, ADIFF #### [address] [address] Chloride [Moles/Vol] 98 mmol/L Normal 98-107 [facility] Comment on above: Performed By: #### A COLLIN, GFR, CMP, PBNP, CBC, TSH, ADIFF #### [address] [address] CO2 [Moles/Vol] 38 mmol/L High 23-31 [facility] Comment on above: Performed By: #### A COLLIN, GFR, CMP, PBNP, CBC, TSH, ADIFF #### [address] [address] Creatinine [Mass/Vol] 1.61 mg/dL High 0.55-1.02 [facility] Comment on above: Result Comment: Test ing performed on [employer] Dimension EXL analyzer using a modified kinetic Josse technique. Performed By: #### A COLLIN, GFR, CMP, PBNP, CBC, TSH, ADIFF #### [address] [address] Electrolyte Balance 3.0 mEq/L Low 4.0-15.0 [facility] Comment on above: Performed By: #### A COLLIN, GFR, CMP, PBNP, CBC, TSH, ADIFF #### [address] [address] Glucose [Mass/Vol] 89 mg/dL Normal 83-110 [facility] Comment on above: Performed By: #### A COLLIN, GFR, CMP, PBNP, CBC, TSH, ADIFF #### [address] [address] Potassium [Moles/Vol] 4.5 mmol/L Normal 3.5-5.1 [facility] Comment on above: Performed By: #### A COLLIN, GFR, CMP, PBNP, CBC, TSH, ADIFF #### [address] [address] Sodium [Moles/Vol] 139 mmol/L Normal 136-145 [facility] Comment on above: Performed By: #### A COLLIN, GFR, CMP, PBNP, CBC, TSH, ADIFF #### [address] [address] Urea nitrogen [Mass/Vol] 38 mg/dL High 7-18 [facility] Comment on above: Performed By: #### A COLLIN, GFR, CMP, PBNP, CBC, TSH, ADIFF #### [address] [place] [address] LABORATORYOrdered By: SYSTEM SYSTEM on 05-22-2024 Calcium [...] 05-22-2024 Magnesium [Mass/Vol] 2.1 mg/dL Normal 1.8-2.4 [facility] Comment on above: Performed By: #### A COLLIN, GFR, CMP, PBNP, CBC, TSH, ADIFF #### [address] [address] .Auto Diffon 05-21-2024 Basophil, Absolute 0.1 10 3/mcL Normal 0.0-0.2 [facility] Comment on above: Performed By: #### M DW, MG, GFR, BMP, CBC, ANEU, TROPHS, ADIFF #### [address] [address] Basophils/100 WBC (Bld) 0.8 % Normal 0.0-2.5 [facility] Comment on above: Performed By: #### M DW, MG, GFR, BMP, CBC, ANEU, TROPHS, ADIFF #### [address] [address] Eosinophil, Absolute 0.2 10 3/mcL Normal 0.0-0.7 [facility] Comment on above: Performed By: #### M DW, MG, GFR, BMP, CBC, ANEU, TROPHS, ADIFF #### [address] [address] Eosinophils/100 WBC (Bld) 2.3 % Normal 0.0-7.0 [facility] Comment on above: Performed By: #### M DW, MG, GFR, BMP, CBC, ANEU, TROPHS, ADIFF #### [address] [address] Lymphocyte, Absolute 1.1 10 3/mcL Normal 0.9-4.3 [facility] Comment on above: Performed By: #### M DW, MG, GFR, BMP, CBC, ANEU, TROPHS, ADIFF #### [address] [address] Lymphocytes/100 WBC (Bld) 10.9 % Low 20.0-40.0 [facility] Comment on above: Performed By: #### M DW, MG, GFR, BMP, CBC, ANEU, TROPHS, ADIFF #### [address] [address] Monocyte, Absolute 0.9 10 3/mcL Normal 0.1-1.4 [facility] Comment on above: Performed By: #### M DW, MG, GFR, BMP, CBC, ANEU, TROPHS, ADIFF #### [address] [address] Monocytes/100 WBC (Bld) 9.1 % Normal 2.0-13.0 [facility] Comment on above: Performed By: #### M DW, MG, GFR, BMP, CBC, ANEU, TROPHS, ADIFF #### [address] [address] Neutrophils/100 WBC (Bld) 76.9 % High 50.0-75.0 [facility] Comment on above: Performed By: #### M DW, MG, GFR, BMP, CBC, ANEU, TROPHS, ADIFF #### [address] [address] .GFRon 05-21-2024 Estimated Glomerular Filtration Rate 37 ml/min/1.73sqm Normal [facility] Comment on above: Result Comment: Stages of [...] GFR, BMP, CBC, ANEU, TROPHS, ADIFF #### [address] [address] .NEUABSon 05-21-2024 Neutrophil, Absolute 7.6 10 3/mcL Normal 2.3-8.1 [facility] Comment on above: Performed By: #### M DW, MG, GFR, BMP, CBC, ANEU, TROPHS, ADIFF #### [address] [address] BMPon 05-21-2024 BUN/Creatinine Ratio 21 ratio Normal 7-27 [facility] Comment on above: Performed By: #### M DW, MG, GFR, BMP, CBC, ANEU, TROPHS, ADIFF #### [address] [address] Calcium [Mass/Vol] 9.5 mg/dL Normal 8.4-10.2 [facility] Comment on above: Performed By: #### M DW, MG, GFR, BMP, CBC, ANEU, TROPHS, ADIFF #### [address] [address] Chloride [Moles/Vol] 97 mmol/L Low 98-107 [facility] Comment on above: Performed By: #### M DW, MG, GFR, BMP, CBC, ANEU, TROPHS, ADIFF #### [address] [address] CO2 [Moles/Vol] 37 mmol/L High 23-31 [facility] Comment on above: Performed By: #### M DW, MG, GFR, BMP, CBC, ANEU, TROPHS, ADIFF #### [address] [address] Creatinine [Mass/Vol] 1.41 mg/dL High 0.55-1.02 [facility] Comment on above: Result Comment: Test ing performed on Siemens Dimension EXL analyzer using a modified kinetic Josse technique. Performed By: #### M DW, MG, GFR, BMP, CBC, ANEU, TROPHS, ADIFF #### [address] [address] Electrolyte Balance 2.0 mEq/L Low 4.0-15.0 [facility] Comment on above: Performed By: #### M DW, MG, GFR, BMP, CBC, ANEU, TROPHS, ADIFF #### [address] [address] Glucose [Mass/Vol] 97 mg/dL Normal 83-110 [facility] Comment on above: Performed By: #### M DW, MG, GFR, BMP, CBC, ANEU, TROPHS, ADIFF #### [address] [address] Potassium [Moles/Vol] 4.2 mmol/L Normal 3.5-5.1 [facility] Comment on above: Performed By: #### M DW, MG, GFR, BMP, CBC, ANEU, TROPHS, ADIFF #### [address] [address] Sodium [Moles/Vol] 136 mmol/L Normal 136-145 [facility] Comment on above: Performed By: #### M DW, MG, GFR, BMP, CBC, ANEU, TROPHS, ADIFF #### [address] [address] Urea nitrogen [Mass/Vol] 29 mg/dL High 7-18 [facility] Comment on above: Performed By: #### M DW, MG, GFR, BMP, CBC, ANEU, TROPHS, ADIFF #### [address] [address] CBCon 05-21-2024 Erythrocyte distribution width (RBC) [Ratio] 13.5 % Normal 11.5-15.5 [facility] Comment on above: Performed By: #### M DW, MG, GFR, BMP, CBC, ANEU, TROPHS, ADIFF #### [address] [address] Hematocrit (Bld) [Volume fraction] 41.8 % Normal 34.0-46.0 [facility] Comment on above: Performed By: #### M DW, MG, GFR, BMP, CBC, ANEU, TROPHS, ADIFF #### [address] [address] Hgb 14.5 G/dL Normal 12.0-16.0 [facility] Comment on above: Performed By: #### M DW, MG, GFR, BMP, CBC, ANEU, TROPHS, ADIFF #### [address] [address] MCH (RBC) [Entitic mass] 30.2 pg Normal 27.0-33.0 [facility] Comment on above: Performed By: #### M DW, MG, GFR, BMP, CBC, ANEU, TROPHS, ADIFF #### [address] [address] MCHC 34.6 G/dL Normal 32.0-36.0 [facility] Comment on above: Performed By: #### M DW, MG, GFR, BMP, CBC, ANEU, TROPHS, ADIFF #### [address] [address] MCV (RBC) [Entitic vol] 87.2 fL Normal 80.0-99.0 [facility] Comment on above: Performed By: #### M DW, MG, GFR, BMP, CBC, ANEU, TROPHS, ADIFF #### [address] [address] Platelet 270 10 3/mcL Normal 150-450 [facility] Comment on above: Performed By: #### M DW, MG, GFR, BMP, CBC, ANEU, TROPHS, ADIFF #### [address] [address] Platelet mean volume (Bld) [Entitic vol] 8.6 fL Normal 6.6-10.5 [facility] Comment on above: Performed By: #### M DW, MG, GFR, BMP, CBC, ANEU, TROPHS, ADIFF #### [address] [address] RBC 4.79 10 6/mcL Normal 4.10-5.30 [facility] Comment on above: Performed By: #### M DW, MG, GFR, BMP, CBC, ANEU, TROPHS, ADIFF #### [address] [address] WBC 10.0 10 3/mcL Normal 4.5-10.8 [facility] Comment on above: Performed By: #### M DW, MG, GFR, BMP, CBC, ANEU, TROPHS, ADIFF #### [facility] [address] [place], [place] [address] LABORATORYOrdered By: SYSTEM SYSTEM on 05-21-2024 Basophils [...] above: Interpretive Data: T esting performed on [employer] Dimension EXL analyzer using a modified kinetic [...] Workflow SS Natriuretic peptide.B prohormone N-Terminal [Mass/Vol] [address] pg/mL High 0 - 450 pg/mL AO [...] 05-21-2024 Magnesium [Mass/Vol] 2.0 mg/dL Normal 1.8-2.4 [facility] Comment on above: Performed By: #### M DW, MG, GFR, BMP, CBC, ANEU, TROPHS, ADIFF #### [address] [address] PBNPon 05-21-2024 Natriuretic peptide B (Bld) [Mass/Vol] [address] pg/mL High 0-450 [facility] Comment on above: Result Comment: NT-p roBNP results of less than 300 pg/mL effectively rules out acute congestive heart failure with 99% negative predictive value. Performed By: #### M DW, MG, GFR, BMP, CBC, ANEU, TROPHS, ADIFF #### [address] [address] .Auto Diffon 05-20-2024 Basophil, Absolute 0.2 10 3/mcL Normal 0.0-0.2 [facility] Comment on above: Performed By: #### M DW, MG, GFR, BMP, CBC, ANEU, TROPHS, ADIFF #### [address] [address] Basophils/100 WBC (Bld) 1.3 % Normal 0.0-2.5 [facility] Comment on above: Performed By: #### M DW, MG, GFR, BMP, CBC, ANEU, TROPHS, ADIFF #### [address] [address] Eosinophil, Absolute 0.5 10 3/mcL Normal 0.0-0.7 [facility] Comment on above: Performed By: #### M DW, MG, GFR, BMP, CBC, ANEU, TROPHS, ADIFF #### [address] [address] Eosinophils/100 WBC (Bld) 3.5 % Normal 0.0-7.0 [facility] Comment on above: Performed By: #### M DW, MG, GFR, BMP, CBC, ANEU, TROPHS, ADIFF #### [address] [address] Lymphocyte, Absolute 1.7 10 3/mcL Normal 0.9-4.3 [facility] Comment on above: Performed By: #### M DW, MG, GFR, BMP, CBC, ANEU, TROPHS, ADIFF #### [address] [address] Lymphocytes/100 WBC (Bld) 11.9 % Low 20.0-40.0 [facility] Comment on above: Performed By: #### M DW, MG, GFR, BMP, CBC, ANEU, TROPHS, ADIFF #### [address] [address] Monocyte, Absolute 1.4 10 3/mcL Normal 0.1-1.4 [facility] Comment on above: Performed By: #### M DW, MG, GFR, BMP, CBC, ANEU, TROPHS, ADIFF #### [address] [address] Monocytes/100 WBC (Bld) 10.0 % Normal 2.0-13.0 [facility] Comment on above: Performed By: #### M DW, MG, GFR, BMP, CBC, ANEU, TROPHS, ADIFF #### [address] [address] Neutrophils/100 WBC (Bld) 73.3 % Normal 50.0-75.0 [facility] Comment on above: Performed By: #### M DW, MG, GFR, BMP, CBC, ANEU, TROPHS, ADIFF #### [address] [address] .GFRon 05-20-2024 Estimated Glomerular Filtration Rate 44 ml/min/1.73sqm [facility] Comment on above: Result Comment: Stages of [...] GFR, CMP, PBNP, CBC, TSH, ADIFF #### [address] [address] Estimated Glomerular Filtration Rate 47 ml/min/1.73sqm Normal [facility] Comment on above: Result Comment: Stages of [...] GFR, BMP, CBC, ANEU, TROPHS, ADIFF #### [address] [address] .NEUABSon 05-20-2024 Neutrophil, Absolute 10.2 10 3/mcL High 2.3-8.1 A [facility] Comment on above: Performed By: #### M DW, MG, GFR, BMP, CBC, ANEU, TROPHS, ADIFF #### [address] [address] BMPon 05-20-2024 BUN/Creatinine Ratio 22 ratio Normal 7-27 [facility] Comment on above: Performed By: #### A COLLIN, GFR, CMP, PBNP, CBC, TSH, ADIFF #### [address] [address] Calcium [Mass/Vol] 9.5 mg/dL Normal 8.4-10.2 [facility] Comment on above: Performed By: #### A COLLNI, GFR, CMP, PBNP, CBC, TSH, ADIFF #### [address] [address] Chloride [Moles/Vol] 99 mmol/L Normal 98-107 [facility] Comment on above: Performed By: #### A COLLIN, GFR, CMP, PBNP, CBC, TSH, ADIFF #### [address] [address] CO2 [Moles/Vol] 35 mmol/L High 23-31 [facility] Comment on above: Performed By: #### A COLLIN, GFR, CMP, PBNP, CBC, TSH, ADIFF #### [address] [address] Creatinine [Mass/Vol] 1.23 mg/dL High 0.55-1.02 [facility] Comment on above: Result Comment: Test ing performed on Siemens Dimension EXL analyzer using a modified kinetic Josse technique. Performed By: #### A COLLIN, GFR, CMP, PBNP, CBC, TSH, ADIFF #### [address] [address] Electrolyte Balance 4.0 mEq/L Normal 4.0-15.0 [facility] Comment on above: Performed By: #### A COLLIN, GFR, CMP, PBNP, CBC, TSH, ADIFF #### [address] [address] Glucose [Mass/Vol] 93 mg/dL Normal 83-110 [facility] Comment on above: Performed By: #### A COLLIN, GFR, CMP, PBNP, CBC, TSH, ADIFF #### [address] [address] Potassium [Moles/Vol] 4.4 mmol/L Normal 3.5-5.1 [facility] Comment on above: Performed By: #### A COLLIN, GFR, CMP, PBNP, CBC, TSH, ADIFF #### [address] [address] Sodium [Moles/Vol] 138 mmol/L Normal 136-145 [facility] Comment on above: Performed By: #### A COLLIN, GFR, CMP, PBNP, CBC, TSH, ADIFF #### [address] [address] Urea nitrogen [Mass/Vol] 27 mg/dL High 7-18 [facility] Comment on above: Performed By: #### A COLLIN, GFR, CMP, PBNP, CBC, TSH, ADIFF #### [address] [address] BUN/Creatinine Ratio 24 ratio Normal 7-27 [facility] Comment on above: Performed By: #### M DW, MG, GFR, BMP, CBC, ANEU, TROPHS, ADIFF #### [address] [address] Calcium [Mass/Vol] 9.6 mg/dL Normal 8.4-10.2 [facility] Comment on above: Performed By: #### M DW, MG, GFR, BMP, CBC, ANEU, TROPHS, ADIFF #### [address] [address] Chloride [Moles/Vol] 98 mmol/L Normal 98-107 [facility] Comment on above: Performed By: #### M DW, MG, GFR, BMP, CBC, ANEU, TROPHS, ADIFF #### [address] [address] CO2 [Moles/Vol] 30 mmol/L Normal 23-31 [facility] Comment on above: Performed By: #### M DW, MG, GFR, BMP, CBC, ANEU, TROPHS, ADIFF #### [address] [address] Creatinine [Mass/Vol] 1.16 mg/dL High 0.55-1.02 [facility] Comment on above: Result Comment: Test ing performed on Siemens Dimension EXL analyzer using a modified kinetic Josse technique. Performed By: #### M DW, MG, GFR, BMP, CBC, ANEU, TROPHS, ADIFF #### [address] [address] Electrolyte Balance 8.0 mEq/L Normal 4.0-15.0 [facility] Comment on above: Performed By: #### M DW, MG, GFR, BMP, CBC, ANEU, TROPHS, ADIFF #### [address] [address] Glucose [Mass/Vol] 198 mg/dL High 83-110 [facility] Comment on above: Performed By: #### M DW, MG, GFR, BMP, CBC, ANEU, TROPHS, ADIFF #### [address] [address] Potassium [Moles/Vol] 4.3 mmol/L Normal 3.5-5.1 [facility] Comment on above: Performed By: #### M DW, MG, GFR, BMP, CBC, ANEU, TROPHS, ADIFF #### [address] [address] Sodium [Moles/Vol] 136 mmol/L Normal 136-145 [facility] Comment on above: Performed By: #### M DW, MG, GFR, BMP, CBC, ANEU, TROPHS, ADIFF #### [address] [address] Urea nitrogen [Mass/Vol] 28 mg/dL High 7-18 [facility] Comment on above: Performed By: #### M DW, MG, GFR, BMP, CBC, ANEU, TROPHS, ADIFF #### [address] [address] CBCon 05-20-2024 Erythrocyte distribution width (RBC) [Ratio] 13.5 % Normal 11.5-15.5 [facility] Comment on above: Performed By: #### M DW, MG, GFR, BMP, CBC, ANEU, TROPHS, ADIFF #### [address] [address] Hematocrit (Bld) [Volume fraction] 44.3 % Normal 34.0-46.0 [facility] Comment on above: Performed By: #### M DW, MG, GFR, BMP, CBC, ANEU, TROPHS, ADIFF #### [address] [address] Hgb 14.9 G/dL Normal 12.0-16.0 [facility] Comment on above: Performed By: #### M DW, MG, GFR, BMP, CBC, ANEU, TROPHS, ADIFF #### [address] [address] MCH (RBC) [Entitic mass] 30.0 pg Normal 27.0-33.0 [facility] Comment on above: Performed By: #### M DW, MG, GFR, BMP, CBC, ANEU, TROPHS, ADIFF #### [address] [address] MCHC 33.7 G/dL Normal 32.0-36.0 [facility] Comment on above: Performed By: #### M DW, MG, GFR, BMP, CBC, ANEU, TROPHS, ADIFF #### [address] [address] MCV (RBC) [Entitic vol] 88.9 fL Normal 80.0-99.0 [facility] Comment on above: Performed By: #### M DW, MG, GFR, BMP, CBC, ANEU, TROPHS, ADIFF #### [address] [address] Platelet 342 10 3/mcL Normal 150-450 [facility] Comment on above: Performed By: #### M DW, MG, GFR, BMP, CBC, ANEU, TROPHS, ADIFF #### [place] [address] Platelet mean volume (Bld) [Entitic vol] 8.0 fL Normal 6.6-10.5 [facility] Comment on above: Performed By: #### M DW, MG, GFR, BMP, CBC, ANEU, TROPHS, ADIFF #### [place] [address] RBC 4.98 10 6/mcL Normal 4.10-5.30 [facility] Comment on above: Performed By: #### M DW, MG, GFR, BMP, CBC, ANEU, TROPHS, ADIFF #### [place] [address] WBC 14.0 10 3/mcL High 4.5-10.8 [facility] Comment on above: Performed By: #### M DW, MG, GFR, BMP, CBC, ANEU, TROPHS, ADIFF #### [place] [address] LABORATORYOrdered By: SYSTEM SYSTEM on 05-20-2024 Troponin I.cardiac DL <= 0.01 ng/mL [Mass/Vol] 141 ng/L High 0 - 51 ng/L AO ADM SS Comment on above: Interpretive Data: H igh Sensitive Troponin I Reference Ranges: Female: 0-51 ng/L Male: 0-76 ng/L Testing performed on [employer] using a homogeneous sandwich chemiluminescent immunoassay based on Germin8 technology. Basophils (Bld) [#/Vol] 0.2 103/mcL Normal [...] Workflow SS Natriuretic peptide.B prohormone N-Terminal [Mass/Vol] 99994 pg/mL High 0 - 450 pg/mL AO [...] ng/L Male: 0-76 ng/L Testing performed on [employer] using a homogeneous sandwich chemiluminescent immunoassay based on Germin8 technology. Urea nitrogen [Mass/Vol] 28 mg/dL High 7 - 18 mg/dL AO ADM SS Urea nitrogen/Creatinine [Mass ratio] 24 ratio Normal 7 - 27 ratio AO ADM SS WBC (Bld) [#/Vol] 14.0 103/mcL High 4.5 - 10.8 10^3/mcL AO Workflow SS MGon 05-20-2024 Magnesium [Mass/Vol] 2.0 mg/dL Normal 1.8-2.4 [facility] Comment on above: Performed By: #### A COLLIN, GFR, CMP, PBNP, CBC, TSH, ADIFF #### [address] [address] Magnesium [Mass/Vol] 2.0 mg/dL Normal 1.8-2.4 [facility] Comment on above: Performed By: #### M DW, MG, GFR, BMP, CBC, ANEU, TROPHS, ADIFF #### [address] [address] PBNPon 05-20-2024 Natriuretic peptide B (Bld) [Mass/Vol] 61957 pg/mL High 0-450 [facility] Comment on above: Result Comment: NT-p roBNP results of less than 300 pg/mL effectively rules out acute congestive heart failure with 99% negative predictive value. Performed By: #### M DW, MG, GFR, BMP, CBC, ANEU, TROPHS, ADIFF #### [place] [address] TROPHSon 05-20-2024 High Sensitivity Troponin I 141 ng/L [facility] [address] Comment on above: Result Comment: High Sensitive Troponin I Reference Ranges: Female: 0-51 ng/L Male: 0-76 ng/L Testing performed on [employer] using a homogeneous sandwich chemiluminescent immunoassay based on Germin8 technology. Performed By: #### M DW, MG, GFR, BMP, CBC, ANEU, TROPHS, ADIFF #### [address] [address] High Sensitivity Troponin I 141 ng/L High [address] Comment on above: Result Comment: High Sensitive Troponin I Reference Ranges: Female: 0-51 ng/L Male: 0-76 ng/L Testing performed on [employer] using a homogeneous sandwich chemiluminescent immunoassay based on Germin8 technology. Performed By: #### M DW, MG, GFR, BMP, CBC, ANEU, TROPHS, ADIFF #### [place] [address] XR CHEST 1 VIEWon 05-20-2024 XR CHEST [...] 05/20/2024 12:11:45 AM Ordering Provider: VINCENT Mercado [facility] .Auto Diffon 05-18-2024 Basophil, Absolute 0.1 10 3/mcL Normal 0.0-0.3 [facility] Comment on above: Performed By: #### G , BMP #### [address] [address] Basophils/100 WBC (Bld) 0.6 % Normal 0.0-2.5 [facility] Comment on above: Performed By: #### G , BMP #### [address] [address] Eosinophil, Absolute 0.4 10 3/mcL Normal 0.0-0.7 [facility] Comment on above: Performed By: #### G FR, BMP #### [address] [address] Eosinophils/100 WBC (Bld) 3.6 % Normal 0.0-6.0 [facility] Comment on above: Performed By: #### G FR, BMP #### [address] [address] Lymphocyte, Absolute 1.0 10 3/mcL Normal 0.9-4.3 [facility] Comment on above: Performed By: #### G FR, BMP #### [facility] [address] [place] [address] Lymphocytes/100 WBC (Bld) 10.5 % Low 20.0-40.0 [facility] Comment on above: Performed By: #### G , BMP #### [facility] [address] [place] [address] Monocyte, Absolute 1.1 10 3/mcL Normal 0.1-1.4 [facility] Comment on above: Performed By: #### G , BMP #### [address] [address] Monocytes/100 WBC (Bld) 11.1 % Normal 2.0-13.0 [facility] Comment on above: Performed By: #### G , BMP #### [address] [address] Neutrophils/100 WBC (Bld) 74.2 % Normal 50.0-75.0 [facility] Comment on above: Performed By: #### G , BMP #### [address] [address] .GFRon 05-18-2024 Estimated Glomerular Filtration Rate 42 ml/min/1.73sqm Normal [facility] Comment on above: Result Comment: [...] By: #### G , BMP #### [address] [address] .NEUABSon 05-18-2024 Neutrophil, Absolute 7.3 10 3/mcL Normal 2.3-8.1 [facility] Comment on above: Performed By: #### G , BMP #### [address] [id number] APTTon 05-18-2024 aPTT Coag (Bld) [Time] 52.8 s High 25.0-35.0 [facility] Comment on above: Result Comment: For Heparin anticoagulation therapy, the recommended therapeutic range is: 54-77 seconds (APTT Correlation with Anti-Xa therapeutic range of 0.3-0.7 units/ml). PLEASE REFERENCE THE PHARMACY PROTOCOL FOR DOSING. Performed By: #### G FR, BMP #### [address] 05-18-2024 BUN/Creatinine Ratio 20.9 ratio Normal 10.0-22.0 [facility] Comment on above: Performed By: #### G FR, BMP #### [place] [address] Calcium [Mass/Vol] 9.7 mg/dL Normal 8.7-10.4 [facility] Comment on above: Performed By: #### G FR, BMP #### [place] [address] Chloride [Moles/Vol] 94 mmol/L Low 98-110 [facility] Comment on above: Performed By: #### G FR, BMP #### [place] [address] CO2 [Moles/Vol] 34 mmol/L High 22-32 [facility] Comment on above: Performed By: #### G FR, BMP #### [place] [address] Creatinine [Mass/Vol] 1.29 mg/dL High 0.50-1.20 [facility] Comment on above: Result Comment: Test ing performed on Official Limited Virtual analyzer using enzymatic creatinine methodology. Performed By: #### G FR, BMP #### [place] [address] Electrolyte Balance 7.0 mEq/L Normal 4.0-15.0 [facility] Comment on above: Performed By: #### G FR, BMP #### [place] [address] Glucose [Mass/Vol] 95 mg/dL Normal 82-115 [facility] Comment on above: Performed By: #### G , BMP #### [place] [id number] Potassium [Moles/Vol] 3.8 mmol/L Normal 3.5-5.0 [facility] MAIN Comment on above: Performed By: #### G FR, BMP #### [place] [id number] Sodium [Moles/Vol] 135 mmol/L Low 136-145 [facility] MAIN Comment on above: Performed By: #### G , BMP #### [place] [id number] Urea nitrogen [Mass/Vol] 27.0 mg/dL High 8.0-22.0 [facility] MAIN Comment on above: Performed By: #### Ed WAGNER, BMP #### [place] [address] CBCon 05-18-2024 Erythrocyte distribution width (RBC) [Ratio] 13.2 % Normal 11.5-15.5 [facility] MAIN Comment on above: Performed By: #### G , BMP #### [place] [id number] Hematocrit (Bld) [Volume fraction] 41.3 % Normal 34.0-46.0 [facility] MAIN Comment on above: Performed By: #### G FR, BMP #### [place] [address] Hgb 14.4 G/dL Normal 12.0-16.0 [facility] MAIN Comment on above: Performed By: #### G FR, BMP #### [place] [id number] MCH (RBC) [Entitic mass] 30.4 pg Normal 27.0-33.0 [facility] MAIN Comment on above: Performed By: #### G FR, BMP #### [place] [id number] MCHC 34.7 G/dL Normal 32.0-36.0 [facility] MAIN Comment on above: Performed By: #### G FR, BMP #### [place] [id number] MCV (RBC) [Entitic vol] 87.5 fL Normal 80.0-99.0 [facility] MAIN Comment on above: Performed By: #### G FR, BMP #### [place] [address] Platelet 273 10 3/mcL Normal 150-450 [facility] MAIN Comment on above: Performed By: #### G FR, BMP #### [place] [address] Platelet mean volume (Bld) [Entitic vol] 8.3 fL Normal 6.6-10.5 [facility] MAIN Comment on above: Performed By: #### Ed FR, BMP #### [place] [address] RBC 4.73 10 6/mcL Normal 4.10-5.30 [facility] MAIN Comment on above: Performed By: #### Ed , BMP #### [place] [address] WBC 9.9 10 3/mcL Normal 4.5-10.8 [facility] MAIN Comment on above: Performed By: #### Ed , BMP #### [place] [address] HFPon 05-18-2024 Bili Indirect 0.4 mg/dL Normal 0.1-10.0 [facility] MAIN Comment on above: Performed By: #### Ed FR, BMP #### [place] [address] Albumin Level 3.2 G/dL Normal 3.2-4.8 [facility] MAIN Comment on above: Performed By: #### Ed FR, BMP #### [place] [id number] Albumin/Globulin [Mass ratio] 1.3 {ratio} Normal 0.9-1.6 [facility] MAIN Comment on above: Performed By: #### Ed FR, BMP #### [place] [address] ALP [Catalytic activity/Vol] 84 U/L Normal 38-126 [facility] MAIN Comment on above: Performed By: #### Ed , BMP #### [place] [address] ALT [Catalytic activity/Vol] 15 U/L Normal 10-49 [facility] MAIN Comment on above: Performed By: #### G FR, BMP #### [place] [address] AST [Catalytic activity/Vol] 14 U/L Normal 8-34 [facility] MAIN Comment on above: Performed By: #### Ed , BMP #### [place] [address] Bili Direct 0.2 mg/dL Normal 0.0-0.4 [facility] MAIN Comment on above: Result Comment: Use of this assay is not recommended for patients undergoing treatment with eltrombopag due to the potential for falsely elevated results. Performed By: #### Ed , BMP #### [place] [address] Bili Total 0.60 mg/dL Normal 0.20-1.20 [facility] MAIN Comment on above: Result Comment: Use of this assay is not recommended for patients undergoing treatment with eltrombopag due to the potential for falsely elevated results. Performed By: #### Ed , BMP #### [place] [address] Globulin 2.4 G/dL Normal 1.5-3.8 [facility] MAIN Comment on above: Performed By: #### Ed , BMP #### [place] [address] Total Protein 5.6 G/dL Low 5.7-8.2 [facility] MAIN Comment on above: Performed By: #### Ed , BMP #### [place] [address] LABORATORYOrdered By: SYSTEM SYSTEM on 05-18-2024 Albumin [...] above: Interpretive Data: T esting performed on [employer] Virtual analyzer using enzymatic creatinine methodology. Electrolyte Balance [...] 05-18-2024 Magnesium [Mass/Vol] 1.9 mg/dL Normal 1.6-2.4 [facility] MAIN Comment on above: Performed By: #### G FR, BMP #### [address] [address] .Auto Diffon 05-17-2024 Basophil, Absolute 0.1 10 3/mcL Normal 0.0-0.3 [facility] MAIN Comment on above: Performed By: #### A COLLIN, MG, BMP, ADIFF, GFR, CBC, HFP #### [address] [address] Eosinophil, Absolute 0.4 10 3/mcL Normal 0.0-0.7 [facility] MAIN Comment on above: Performed By: #### A COLLIN, MG, BMP, ADIFF, GFR, CBC, HFP #### [address] [address] Lymphocyte, Absolute 1.0 10 3/mcL Normal 0.9-4.3 [facility] MAIN Comment on above: Performed By: #### A COLLIN, MG, BMP, ADIFF, GFR, CBC, HFP #### [address] [address] Monocyte, Absolute 1.1 10 3/mcL Normal 0.1-1.4 [facility] MAIN Comment on above: Performed By: #### A COLLIN, MG, BMP, ADIFF, GFR, CBC, HFP #### [address] [address] .Auto DiffOrdered By: SYSTEM SYSTEM on 05-17-2024 Basophils/100 WBC (Bld) 0.5 % Normal 0.0-2.5 AH Workflow SS Comment on above: Performed By: #### A COLLIN, MG, BMP, ADIFF, GFR, CBC, HFP #### [address] [address] Eosinophils/100 WBC (Bld) 3.6 % Normal 0.0-6.0 AH Workflow SS Comment on above: Performed By: #### A COLLIN, MG, BMP, ADIFF, GFR, CBC, HFP #### [address] [address] Lymphocytes/100 WBC (Bld) 8.9 % Low 20.0-40.0 AH Workflow SS Comment on above: Performed By: #### A COLLIN, MG, BMP, ADIFF, GFR, CBC, HFP #### [address] [address] Monocytes/100 WBC (Bld) 9.9 % Normal 2.0-13.0 AH Workflow SS Comment on above: Performed By: #### A COLLIN, MG, BMP, ADIFF, GFR, CBC, HFP #### [address] [address] Neutrophils/100 WBC (Bld) 77.1 % High 50.0-75.0 Workflow SS Comment on above: Performed By: #### A COLLIN, MG, BMP, ADIFF, GFR, CBC, HFP #### [address] [address] .GFROrdered By: RAMY Rodriguez on 05-17-2024 Estimated [...] BMP, ADIFF, GFR, CBC, HFP #### [address] [address] .NEUABSon 05-17-2024 Neutrophil, Absolute 8.8 10 3/mcL High 2.3-8.1 [facility] MAIN Comment on above: Performed By: #### A COLLIN, MG, BMP, ADIFF, GFR, CBC, HFP #### [address] [address] APTTOrdered By: SYSTEM Spark CRME Revalesio on 05-17-2024 aPTT Coag (Bld) [Time] 54.9 [...] MG, BMP, ADIFF, GFR, CBC, HFP #### [place] [address] BMPon 05-17-2024 BUN/Creatinine Ratio 20.9 ratio Normal 10.0-22.0 [facility] MAIN Comment on above: Performed By: #### A COLLIN, MG, BMP, ADIFF, GFR, CBC, HFP #### [place] [address] BMPOrdered By: Orbotix on 05-17-2024 Calcium [Mass/Vol] 9.9 mg/dL Normal 8.7-10.4 AH ADM SS Comment on above: Performed By: #### A COLLIN, MG, BMP, ADIFF, GFR, CBC, HFP #### [place] [address] Chloride [Moles/Vol] 89 mmol/L Low 98-110 AH A DM SS Comment on above: Performed By: #### A COLLIN, MG, BMP, ADIFF, GFR, CBC, HFP #### [place] [address] CO2 [Moles/Vol] 37 mmol/L High 22-32 AH ADM SS Comment on above: Performed By: #### A COLLIN, MG, BMP, ADIFF, GFR, CBC, HFP #### [place] [address] Creatinine [Mass/Vol] 1.15 mg/dL Normal 0.50-1.20 AH ADM SS Comment on above: Interpretive Data: T esting performed on [employer] CH analyzer using enzymatic creatinine methodology. Result Comment: Test ing performed on [employer] CH analyzer using enzymatic creatinine methodology. Performed By: #### A COLLIN, MG, BMP, ADIFF, GFR, CBC, HFP #### [address] [address] Electrolyte Balance 6.0 mEq/L Normal 4.0-15.0 AD M SS Comment on above: Performed By: #### A COLLIN, MG, BMP, ADIFF, GFR, CBC, HFP #### [place] [id number] Glucose [Mass/Vol] 99 mg/dL Normal 82-115 ADM SS Comment on above: Performed By: #### A COLLIN, MG, BMP, ADIFF, GFR, CBC, HFP #### [place] [address] Potassium [Moles/Vol] 3.8 mmol/L Normal 3.5-5.0 ADM SS Comment on above: Performed By: #### A COLLIN, MG, BMP, ADIFF, GFR, CBC, HFP #### [place] [id number] Sodium [Moles/Vol] 132 mmol/L Low 136-145 ADM SS Comment on above: Performed By: #### A COLLIN, MG, BMP, ADIFF, GFR, CBC, HFP #### [place] [id number] Urea nitrogen [Mass/Vol] 24.0 mg/dL High 8.0-22.0 ADM SS Comment on above: Performed By: #### A COLLIN, MG, BMP, ADIFF, GFR, CBC, HFP #### [address] [address] CBCOrdered By: SYSTEM SYSTEM on 05-17-2024 Erythrocyte distribution width (RBC) [Ratio] 13.0 % Normal 11.5-15.5 Workflow SS Comment on above: Performed By: #### A COLLIN, MG, BMP, ADIFF, GFR, CBC, HFP #### [place] [id number] Hematocrit (Bld) [Volume fraction] 44.2 % Normal 34.0-46.0 AH Workflow SS Comment on above: Performed By: #### A COLLIN, MG, BMP, ADIFF, GFR, CBC, HFP #### [place] [id number] MCH (RBC) [Entitic mass] 29.8 pg Normal 27.0-33.0 AH Workflow SS Comment on above: Performed By: #### A COLLIN, MG, BMP, ADIFF, GFR, CBC, HFP #### [place] [id number] MCHC 34.2 G/dL Normal 32.0-36.0 AH Workflow SS Comment on above: Performed By: #### A COLLIN, MG, BMP, ADIFF, GFR, CBC, HFP #### [place] [address] MCV (RBC) [Entitic vol] 87.2 fL Normal 80.0-99.0 AH Workflow SS Comment on above: Performed By: #### A COLLIN, MG, BMP, ADIFF, GFR, CBC, HFP #### [place] [address] Platelet mean volume (Bld) [Entitic vol] 8.2 fL Normal 6.6-10.5 AH Workflow SS Comment on above: Performed By: #### A COLLIN, MG, BMP, ADIFF, GFR, CBC, HFP #### [address] [address] CBCon 05-17-2024 Hgb 15.1 G/dL Normal 12.0-16.0 [facility] MAIN Comment on above: Performed By: #### A COLLIN, MG, BMP, ADIFF, GFR, CBC, HFP #### [place] [id number] Platelet 283 10 3/mcL Normal 150-450 [facility] MAIN Comment on above: Performed By: #### A COLLIN, MG, BMP, ADIFF, GFR, CBC, HFP #### [place] [address] RBC 5.07 10 6/mcL Normal 4.10-5.30 [facility] MAIN Comment on above: Performed By: #### A COLLIN, MG, BMP, ADIFF, GFR, CBC, HFP #### [place] [address] WBC 11.4 10 3/mcL High 4.5-10.8 [facility] MAIN Comment on above: Performed By: #### A COLLIN, MG, BMP, ADIFF, GFR, CBC, HFP #### [place] [address] HFPOrdered By: SYSTEM SYSTEM on 05-17-2024 Bili Indirect 0.4 mg/dL Normal 0.1-10.0 AH Chemistr y S Comment on above: Performed By: #### A COLLIN, MG, BMP, ADIFF, GFR, CBC, HFP #### [place] [address] Albumin/Globulin [Mass ratio] 1.3 {ratio} Normal 0.9-1.6 AH ADM SS Comment on above: Performed By: #### A COLLIN, MG, BMP, ADIFF, GFR, CBC, HFP #### [place] [address] ALP [Catalytic activity/Vol] 95 U/L Normal 38-126 AH ADM SS Comment on above: Performed By: #### A COLLIN, MG, BMP, ADIFF, GFR, CBC, HFP #### [place] [address] AST [Catalytic activity/Vol] 16 U/L Normal 8-34 AH ADM SS Comment on above: Performed By: #### A COLLIN, MG, BMP, ADIFF, GFR, CBC, HFP #### [place] [address] Globulin 2.6 G/dL Normal 1.5-3.8 AH ADM SS Comment on above: Performed By: #### A COLLIN, MG, BMP, ADIFF, GFR, CBC, HFP #### [address] 05-17-2024 Albumin Level 3.3 G/dL Normal 3.2-4.8 [facility] MAIN Comment on above: Performed By: #### A COLLIN, MG, BMP, ADIFF, GFR, CBC, HFP #### [address] [address] ALT [Catalytic activity/Vol] 18 U/L Normal 10-49 [facility] MAIN Comment on above: Performed By: #### A COLLIN, MG, BMP, ADIFF, GFR, CBC, HFP #### [address] [address] Bili Direct 0.2 mg/dL Normal 0.0-0.4 [facility] MAIN Comment on above: Result Comment: Use of this assay is not recommended for patients undergoing treatment with eltrombopag due to the potential for falsely elevated results. Performed By: #### A COLLIN, MG, BMP, ADIFF, GFR, CBC, HFP #### [place] [address] Bili Total 0.60 mg/dL Normal 0.20-1.20 [facility] MAIN Comment on above: Result Comment: Use of this assay is not recommended for patients undergoing treatment with eltrombopag due to the potential for falsely elevated results. Performed By: #### A COLLIN, MG, BMP, ADIFF, GFR, CBC, HFP #### [place] [address] Total Protein 5.9 G/dL Normal 5.7-8.2 [facility] MAIN Comment on above: Performed By: #### A COLLIN, MG, BMP, ADIFF, GFR, CBC, HFP #### [place] [address] LABORATORYOrdered By: SYSTEM SYSTEM on 05-17-2024 Albumin [...] BMP, ADIFF, GFR, CBC, HFP #### [address] [address] .Auto Diffon 05-16-2024 Basophil, Absolute 0.1 10 3/mcL Normal 0.0-0.3 [facility] MAIN Comment on above: Performed By: #### A COLLIN, MG, BMP, ADIFF, GFR, CBC, HFP #### [address] [address] Basophils/100 WBC (Bld) 0.9 % Normal 0.0-2.5 [facility] MAIN Comment on above: Performed By: #### A COLLIN, MG, BMP, ADIFF, GFR, CBC, HFP #### [address] [address] Eosinophil, Absolute 0.4 10 3/mcL Normal 0.0-0.7 [facility] MAIN Comment on above: Performed By: #### A COLLIN, MG, BMP, ADIFF, GFR, CBC, HFP #### [address] [address] Eosinophils/100 WBC (Bld) 3.6 % Normal 0.0-6.0 [facility] MAIN Comment on above: Performed By: #### A COLLIN, MG, BMP, ADIFF, GFR, CBC, HFP #### [address] [address] Lymphocyte, Absolute 1.0 10 3/mcL Normal 0.9-4.3 [facility] MAIN Comment on above: Performed By: #### A COLLIN, MG, BMP, ADIFF, GFR, CBC, HFP #### [address] [address] Lymphocytes/100 WBC (Bld) 9.8 % Low 20.0-40.0 [facility] MAIN Comment on above: Performed By: #### A COLLIN, MG, BMP, ADIFF, GFR, CBC, HFP #### [address] [address] Monocyte, Absolute 1.0 10 3/mcL Normal 0.1-1.4 [facility] MAIN Comment on above: Performed By: #### A COLLIN, MG, BMP, ADIFF, GFR, CBC, HFP #### [address] [address] Monocytes/100 WBC (Bld) 9.6 % Normal 2.0-13.0 [facility] MAIN Comment on above: Performed By: #### A COLLIN, MG, BMP, ADIFF, GFR, CBC, HFP #### [address] [address] Neutrophils/100 WBC (Bld) 76.1 % High 50.0-75.0 [facility] MAIN Comment on above: Performed By: #### A COLLIN, MG, BMP, ADIFF, GFR, CBC, HFP #### [address] [address] .GFRon 05-16-2024 Estimated Glomerular Filtration Rate 45 ml/min/1.73sqm Normal [facility] MAIN Comment on above: Result Comment: [...] BMP, ADIFF, GFR, CBC, HFP #### [address] [address] .NEUABSon 05-16-2024 Neutrophil, Absolute 7.8 10 3/mcL Normal 2.3-8.1 [facility] MAIN Comment on above: Performed By: #### A COLLIN, MG, BMP, ADIFF, GFR, CBC, HFP #### [place] [id number] APTTon 05-16-2024 aPTT Coag (Bld) [Time] 57.1 s High 25.0-35.0 [facility] MAIN Comment on above: Result Comment: For Heparin anticoagulation therapy, the recommended therapeutic range is: 54-77 seconds (APTT Correlation with Anti-Xa therapeutic range of 0.3-0.7 units/ml). PLEASE REFERENCE THE PHARMACY PROTOCOL FOR DOSING. Performed By: #### A COLLIN, MG, BMP, ADIFF, GFR, CBC, HFP #### [address] [address] BMPon 05-16-2024 BUN/Creatinine Ratio 18.9 ratio Normal 10.0-22.0 [facility] MAIN Comment on above: Performed By: #### A COLLIN, MG, BMP, ADIFF, GFR, CBC, HFP #### [address] [address] Calcium [Mass/Vol] 9.9 mg/dL Normal 8.7-10.4 [facility] MAIN Comment on above: Performed By: #### A COLLIN, MG, BMP, ADIFF, GFR, CBC, HFP #### [address] [address] Chloride [Moles/Vol] 91 mmol/L Low 98-110 [facility] MAIN Comment on above: Performed By: #### A COLLIN, MG, BMP, ADIFF, GFR, CBC, HFP #### [address] [address] CO2 [Moles/Vol] 38 mmol/L High 22-32 [facility] MAIN Comment on above: Performed By: #### A COLLIN, MG, BMP, ADIFF, GFR, CBC, HFP #### [address] [address] Creatinine [Mass/Vol] 1.22 mg/dL High 0.50-1.20 [facility] MAIN Comment on above: Result Comment: Test ing performed on [employer] Virtual analyzer using enzymatic creatinine methodology. Performed By: #### A COLLIN, MG, BMP, ADIFF, GFR, CBC, HFP #### [address] [address] Electrolyte Balance 8.0 mEq/L Normal 4.0-15.0 [facility] MAIN Comment on above: Performed By: #### A COLLIN, MG, BMP, ADIFF, GFR, CBC, HFP #### [address] [address] Glucose [Mass/Vol] 93 mg/dL Normal 82-115 [facility] MAIN Comment on above: Performed By: #### A COLLIN, MG, BMP, ADIFF, GFR, CBC, HFP #### [address] [address] Potassium [Moles/Vol] 3.9 mmol/L Normal 3.5-5.0 [facility] Comment on above: Performed By: #### A COLLIN, MG, BMP, ADIFF, GFR, CBC, HFP #### [place] [address] Sodium [Moles/Vol] 137 mmol/L Normal 136-145 [facility] MAIN Comment on above: Performed By: #### A COLLIN, MG, BMP, ADIFF, GFR, CBC, HFP #### [place] [address] Urea nitrogen [Mass/Vol] 23.0 mg/dL High 8.0-22.0 [facility] MAIN Comment on above: Performed By: #### A COLLIN, MG, BMP, ADIFF, GFR, CBC, HFP #### [place] [address] CBCon 05-16-2024 Erythrocyte distribution width (RBC) [Ratio] 13.3 % Normal 11.5-15.5 [facility] MAIN Comment on above: Performed By: #### A COLLIN, MG, BMP, ADIFF, GFR, CBC, HFP #### [place] [address] Hematocrit (Bld) [Volume fraction] 42.1 % Normal 34.0-46.0 [facility] MAIN Comment on above: Performed By: #### A COLLIN, MG, BMP, ADIFF, GFR, CBC, HFP #### [place] [id number] Hgb 14.5 G/dL Normal 12.0-16.0 [facility] MAIN Comment on above: Performed By: #### A COLLIN, MG, BMP, ADIFF, GFR, CBC, HFP #### [place] [address] MCH (RBC) [Entitic mass] 30.2 pg Normal 27.0-33.0 [facility] MAIN Comment on above: Performed By: #### A COLLIN, MG, BMP, ADIFF, GFR, CBC, HFP #### [place] [address] MCHC 34.5 G/dL Normal 32.0-36.0 [facility] MAIN Comment on above: Performed By: #### A COLLIN, MG, BMP, ADIFF, GFR, CBC, HFP #### [place] [address] MCV (RBC) [Entitic vol] 87.7 fL Normal 80.0-99.0 [facility] MAIN Comment on above: Performed By: #### A COLLIN, MG, BMP, ADIFF, GFR, CBC, HFP #### [place] [address] Platelet 275 10 3/mcL Normal 150-450 [facility] MAIN Comment on above: Performed By: #### A COLLIN, MG, BMP, ADIFF, GFR, CBC, HFP #### [place] [address] Platelet mean volume (Bld) [Entitic vol] 7.8 fL Normal 6.6-10.5 [facility] MAIN Comment on above: Performed By: #### A COLLIN, MG, BMP, ADIFF, GFR, CBC, HFP #### [place] [address] RBC 4.80 10 6/mcL Normal 4.10-5.30 [facility] MAIN Comment on above: Performed By: #### A COLLIN, MG, BMP, ADIFF, GFR, CBC, HFP #### [place] [address] WBC 10.2 10 3/mcL Normal 4.5-10.8 [facility] MAIN Comment on above: Performed By: #### A COLLIN, MG, BMP, ADIFF, GFR, CBC, HFP #### [address] [address] HFPon 05-16-2024 Bili Indirect 0.4 mg/dL Normal 0.1-10.0 [facility] MAIN Comment on above: Performed By: #### A COLLIN, MG, BMP, ADIFF, GFR, CBC, HFP #### [place] [address] Albumin Level 3.3 G/dL Normal 3.2-4.8 [facility] MAIN Comment on above: Performed By: #### A COLLIN, MG, BMP, ADIFF, GFR, CBC, HFP #### [place] [address] Albumin/Globulin [Mass ratio] 1.2 {ratio} Normal 0.9-1.6 [facility] MAIN Comment on above: Performed By: #### A COLLIN, MG, BMP, ADIFF, GFR, CBC, HFP #### [place] [address] ALP [Catalytic activity/Vol] 97 U/L Normal 38-126 [facility] MAIN Comment on above: Performed By: #### A COLLIN, MG, BMP, ADIFF, GFR, CBC, HFP #### [place] [address] ALT [Catalytic activity/Vol] 21 U/L Normal 10-49 [facility] MAIN Comment on above: Performed By: #### A COLLIN, MG, BMP, ADIFF, GFR, CBC, HFP #### [place] [id number] AST [Catalytic activity/Vol] 18 U/L Normal 8-34 [facility] MAIN Comment on above: Performed By: #### A COLLIN, MG, BMP, ADIFF, GFR, CBC, HFP #### [place] [address] Bili Direct 0.2 mg/dL Normal 0.0-0.4 [facility] MAIN Comment on above: Result Comment: Use of this assay is not recommended for patients undergoing treatment with eltrombopag due to the potential for falsely elevated results. Performed By: #### A COLLIN, MG, BMP, ADIFF, GFR, CBC, HFP #### [place] [address] Bili Total 0.60 mg/dL Normal 0.20-1.20 [facility] MAIN Comment on above: Result Comment: Use of this assay is not recommended for patients undergoing treatment with eltrombopag due to the potential for falsely elevated results. Performed By: #### A COLLIN, MG, BMP, ADIFF, GFR, CBC, HFP #### [place] [address] Globulin 2.7 G/dL Normal 1.5-3.8 [facility] MAIN Comment on above: Performed By: #### A COLLIN, MG, BMP, ADIFF, GFR, CBC, HFP #### [address] [address] Total Protein 6.0 G/dL Normal 5.7-8.2 [facility] MAIN Comment on above: Performed By: #### A COLLIN, MG, BMP, ADIFF, GFR, CBC, HFP #### [address] [address] LABORATORYOrdered By: SYSTEM SYSTEM on 05-16-2024 Albumin [...] above: Interpretive Data: T esting performed on [employer] Virtual analyzer using enzymatic creatinine methodology. Electrolyte Balance [...] 05-16-2024 Magnesium [Mass/Vol] 1.9 mg/dL Normal 1.6-2.4 [facility] MAIN Comment on above: Performed By: #### A COLLIN, MG, BMP, ADIFF, GFR, CBC, HFP #### [address] [address] .Auto Diffon 05-15-2024 Basophil, Absolute 0.1 10 3/mcL Normal 0.0-0.3 [facility] MAIN Comment on above: Performed By: #### A COLLIN, MG, BMP, ADIFF, GFR, CBC, HFP #### [address] [address] Basophils/100 WBC (Bld) 0.9 % Normal 0.0-2.5 [facility] MAIN Comment on above: Performed By: #### A COLLIN, MG, BMP, ADIFF, GFR, CBC, HFP #### [address] [address] Eosinophil, Absolute 0.4 10 3/mcL Normal 0.0-0.7 [facility] MAIN Comment on above: Performed By: #### A COLLIN, MG, BMP, ADIFF, GFR, CBC, HFP #### [address] [address] Eosinophils/100 WBC (Bld) 4.3 % Normal 0.0-6.0 [facility] Comment on above: Performed By: #### A COLLIN, MG, BMP, ADIFF, GFR, CBC, HFP #### [address] [address] Lymphocyte, Absolute 1.1 10 3/mcL Normal 0.9-4.3 [facility] Comment on above: Performed By: #### A COLLIN, MG, BMP, ADIFF, GFR, CBC, HFP #### [address] [address] Lymphocytes/100 WBC (Bld) 10.6 % Low 20.0-40.0 [facility] Comment on above: Performed By: #### A COLLIN, MG, BMP, ADIFF, GFR, CBC, HFP #### [place] [id number] [place] [id number] Monocyte, Absolute 0.9 10 3/mcL Normal 0.1-1.4 [facility] Comment on above: Performed By: #### A COLLIN, MG, BMP, ADIFF, GFR, CBC, HFP #### [address] [address] Monocytes/100 WBC (Bld) 9.1 % Normal 2.0-13.0 [facility] Comment on above: Performed By: #### A COLLIN, MG, BMP, ADIFF, GFR, CBC, HFP #### [address] [address] Neutrophils/100 WBC (Bld) 75.1 % High 50.0-75.0 [facility] Comment on above: Performed By: #### A COLLIN, MG, BMP, ADIFF, GFR, CBC, HFP #### [address] [address] .GFRon 05-15-2024 Estimated Glomerular Filtration Rate 53 ml/min/1.73sqm [facility] Comment on above: Result Comment: [...] By: #### G FR, BMP #### [address] [address] GFR >60 Normal [facility] Comment on above: Result Comment: [...] BMP, ADIFF, GFR, CBC, HFP #### [address] [address] GFR Non- 56 ml/min/1.73sqm Normal [facility] Comment on above: Result Comment: [...] BMP, ADIFF, GFR, CBC, HFP #### [address] [address] .NEUABSon 05-15-2024 Neutrophil, Absolute 7.8 10 3/mcL Normal 2.3-8.1 [facility] MAIN Comment on above: Performed By: #### A COLLIN, MG, BMP, ADIFF, GFR, CBC, HFP #### [address] [address] APTTon 05-15-2024 aPTT Coag (Bld) [Time] 53.5 s High 25.0-35.0 [facility] MAIN Comment on above: Order Comment: QNS - please recollect Result Comment: For Heparin anticoagulation therapy, the recommended therapeutic range is: 54-77 seconds (APTT Correlation with Anti-Xa therapeutic range of 0.3-0.7 units/ml). PLEASE REFERENCE THE PHARMACY PROTOCOL FOR DOSING. Performed By: #### G FR, BMP #### [address] [address] [facility] BUN/Creatinine Ratio 18.9 ratio Normal 10.0-22.0 [facility] MAIN Comment on above: Performed By: #### G FR, BMP #### [address] [address] Calcium [Mass/Vol] 10.0 mg/dL Normal 8.7-10.4 [facility] MAIN Comment on above: Performed By: #### G FR, BMP #### [address] [address] Chloride [Moles/Vol] 96 mmol/L Low 98-110 [facility] MAIN Comment on above: Performed By: #### G FR, BMP #### [address] [address] CO2 [Moles/Vol] 34 mmol/L High 22-32 [facility] MAIN Comment on above: Performed By: #### G FR, BMP #### [address] [address] Creatinine [Mass/Vol] 1.06 mg/dL Normal 0.50-1.20 [facility] MA[facility] Comment on above: Result Comment: Test ing performed on Official Limited Virtual analyzer using enzymatic creatinine methodology. Performed By: #### G FR, BMP #### [address] [address] Electrolyte Balance 7.0 mEq/L Normal 4.0-15.0 [facility] MAIN Comment on above: Performed By: #### G FR, BMP #### [address] [address] Glucose [Mass/Vol] 84 mg/dL Normal 82-115 [facility] MAIN Comment on above: Performed By: #### G FR, BMP #### [facility] [address] [place], [place] [address] Potassium [Moles/Vol] 4.2 mmol/L Normal 3.5-5.0 [facility] Comment on above: Performed By: #### G FR, BMP #### [address] [address] Sodium [Moles/Vol] 137 mmol/L Normal 136-145 [facility] MAIN Comment on above: Performed By: #### G FR, BMP #### [address] [address] Urea nitrogen [Mass/Vol] 20.0 mg/dL Normal 8.0-22.0 [facility] MAIN Comment on above: Performed By: #### G FR, BMP #### [address] [address] BUN/Creatinine Ratio 17.7 ratio Normal 10.0-22.0 [facility] MAIN Comment on above: Performed By: #### A COLLIN, MG, BMP, ADIFF, GFR, CBC, HFP #### [address] [address] Calcium [Mass/Vol] 9.5 mg/dL Normal 8.7-10.4 [facility] MAIN Comment on above: Performed By: #### A COLLIN, MG, BMP, ADIFF, GFR, CBC, HFP #### [address] [address] Chloride [Moles/Vol] 98 mmol/L Normal 98-110 [facility] MAIN Comment on above: Performed By: #### A COLLIN, MG, BMP, ADIFF, GFR, CBC, HFP #### [address] [address] CO2 [Moles/Vol] 31 mmol/L Normal 22-32 [facility] MAIN Comment on above: Performed By: #### A COLLIN, MG, BMP, ADIFF, GFR, CBC, HFP #### [address] [address] Creatinine [Mass/Vol] 0.96 mg/dL Normal 0.50-1.20 [facility] Comment on above: Result Comment: Test ing performed on Official Limited Virtual analyzer using enzymatic creatinine methodology. Performed By: #### A COLLIN, MG, BMP, ADIFF, GFR, CBC, HFP #### [place] [id number] Electrolyte Balance 9.0 mEq/L Normal 4.0-15.0 [facility] MAIN Comment on above: Performed By: #### A COLLIN, MG, BMP, ADIFF, GFR, CBC, HFP #### [place] [id number] Glucose [Mass/Vol] 86 mg/dL Normal 82-115 [facility] MAIN Comment on above: Performed By: #### A COLLIN, MG, BMP, ADIFF, GFR, CBC, HFP #### [place] [id number] Potassium [Moles/Vol] 3.7 mmol/L Normal 3.5-5.0 [facility] Comment on above: Performed By: #### A COLLIN, MG, BMP, ADIFF, GFR, CBC, HFP #### [place] [id number] Sodium [Moles/Vol] 138 mmol/L Normal 136-145 [facility] MAIN Comment on above: Performed By: #### A COLLIN, MG, BMP, ADIFF, GFR, CBC, HFP #### [place] [address] Urea nitrogen [Mass/Vol] 17.0 mg/dL Normal 8.0-22.0 [facility] MAIN Comment on above: Performed By: #### A COLLIN, MG, BMP, ADIFF, GFR, CBC, HFP #### [address] [address] CBCon 05-15-2024 Erythrocyte distribution width (RBC) [Ratio] 13.4 % Normal 11.5-15.5 [facility] MAIN Comment on above: Performed By: #### A COLLIN, MG, BMP, ADIFF, GFR, CBC, HFP #### [place] [id number] Hematocrit (Bld) [Volume fraction] 42.5 % Normal 34.0-46.0 [facility] MAIN Comment on above: Performed By: #### A COLLIN, MG, BMP, ADIFF, GFR, CBC, HFP #### [place] [address] Hgb 14.5 G/dL Normal 12.0-16.0 [facility] MAIN Comment on above: Performed By: #### A COLLIN, MG, BMP, ADIFF, GFR, CBC, HFP #### [place] [address] MCH (RBC) [Entitic mass] 30.2 pg Normal 27.0-33.0 [facility] MAIN Comment on above: Performed By: #### A COLLIN, MG, BMP, ADIFF, GFR, CBC, HFP #### [place] [address] MCHC 34.0 G/dL Normal 32.0-36.0 [facility] MAIN Comment on above: Performed By: #### A COLLIN, MG, BMP, ADIFF, GFR, CBC, HFP #### [place] [address] MCV (RBC) [Entitic vol] 88.8 fL Normal 80.0-99.0 [facility] MAIN Comment on above: Performed By: #### A COLLIN, MG, BMP, ADIFF, GFR, CBC, HFP #### [place] [address] Platelet 285 10 3/mcL Normal 150-450 [facility] MAIN Comment on above: Performed By: #### A COLLIN, MG, BMP, ADIFF, GFR, CBC, HFP #### [place] [address] Platelet mean volume (Bld) [Entitic vol] 7.9 fL Normal 6.6-10.5 [facility] MAIN Comment on above: Performed By: #### A COLLIN, MG, BMP, ADIFF, GFR, CBC, HFP #### [place] [address] RBC 4.78 10 6/mcL Normal 4.10-5.30 [facility] MAIN Comment on above: Performed By: #### A COLLIN, MG, BMP, ADIFF, GFR, CBC, HFP #### [place] [address] WBC 10.4 10 3/mcL Normal 4.5-10.8 [facility] MAIN Comment on above: Performed By: #### A COLLIN, MG, BMP, ADIFF, GFR, CBC, HFP #### [address] [address] HFPon 05-15-2024 Bili Indirect 0.3 mg/dL Normal 0.1-10.0 [facility] MAIN Comment on above: Performed By: #### A COLLIN, MG, BMP, ADIFF, GFR, CBC, HFP #### [place] [address] Albumin Level 3.2 G/dL Normal 3.2-4.8 [facility] MAIN Comment on above: Performed By: #### A COLLIN, MG, BMP, ADIFF, GFR, CBC, HFP #### [place] [address] Albumin/Globulin [Mass ratio] 1.2 {ratio} Normal 0.9-1.6 [facility] MAIN Comment on above: Performed By: #### A COLLIN, MG, BMP, ADIFF, GFR, CBC, HFP #### [address] [address] ALP [Catalytic activity/Vol] 98 U/L Normal 38-126 [facility] MAIN Comment on above: Performed By: #### A COLLIN, MG, BMP, ADIFF, GFR, CBC, HFP #### [address] [address] ALT [Catalytic activity/Vol] 22 U/L Normal 10-49 [facility] MAIN Comment on above: Performed By: #### A COLLIN, MG, BMP, ADIFF, GFR, CBC, HFP #### [address] [address] AST [Catalytic activity/Vol] 21 U/L Normal 8-34 [facility] MAIN Comment on above: Performed By: #### A COLLIN, MG, BMP, ADIFF, GFR, CBC, HFP #### [place] [address] Bili Direct 0.2 mg/dL Normal 0.0-0.4 [facility] MAIN Comment on above: Result Comment: Use of this assay is not recommended for patients undergoing treatment with eltrombopag due to the potential for falsely elevated results. Performed By: #### A COLLIN, MG, BMP, ADIFF, GFR, CBC, HFP #### [place] [address] Bili Total 0.50 mg/dL Normal 0.20-1.20 [facility] MAIN Comment on above: Result Comment: Use of this assay is not recommended for patients undergoing treatment with eltrombopag due to the potential for falsely elevated results. Performed By: #### A COLLIN, MG, BMP, ADIFF, GFR, CBC, HFP #### [place] [address] Globulin 2.6 G/dL Normal 1.5-3.8 [facility] MAIN Comment on above: Performed By: #### A COLLIN, MG, BMP, ADIFF, GFR, CBC, HFP #### [place] [address] Total Protein 5.8 G/dL Normal 5.7-8.2 [facility] MAIN Comment on above: Performed By: #### A COLLIN, MG, BMP, ADIFF, GFR, CBC, HFP #### [place] [address] LABORATORYOrdered By: SYSTEM SYSTEM on 05-15-2024 GFR/1.73 [...] 05-15-2024 Magnesium [Mass/Vol] 1.9 mg/dL Normal 1.6-2.4 [facility] MAIN Comment on above: Performed By: #### A COLLIN, MG, BMP, ADIFF, GFR, CBC, HFP #### [address] [address] .Auto Diffon 05-14-2024 Basophil, Absolute 0.1 10 3/mcL Normal 0.0-0.3 [facility] MAIN Comment on above: Performed By: #### A COLLIN, MG, BMP, ADIFF, GFR, CBC, HFP #### [address] [address] Basophils/100 WBC (Bld) 0.8 % Normal 0.0-2.5 [facility] MAIN Comment on above: Performed By: #### A COLLIN, MG, BMP, ADIFF, GFR, CBC, HFP #### [address] [address] Eosinophil, Absolute 0.3 10 3/mcL Normal 0.0-0.7 [facility] MAIN Comment on above: Performed By: #### A COLLIN, MG, BMP, ADIFF, GFR, CBC, HFP #### [address] [address] Eosinophils/100 WBC (Bld) 2.5 % Normal 0.0-6.0 [facility] MAIN Comment on above: Performed By: #### A COLLIN, MG, BMP, ADIFF, GFR, CBC, HFP #### [address] [address] Lymphocyte, Absolute 0.9 10 3/mcL Normal 0.9-4.3 [facility] MAIN Comment on above: Performed By: #### A COLLIN, MG, BMP, ADIFF, GFR, CBC, HFP #### [address] [address] Lymphocytes/100 WBC (Bld) 8.2 % Low 20.0-40.0 [facility] MAIN Comment on above: Performed By: #### A COLLIN, MG, BMP, ADIFF, GFR, CBC, HFP #### [address] [address] Monocyte, Absolute 1.1 10 3/mcL Normal 0.1-1.4 [facility] MAIN Comment on above: Performed By: #### A COLLIN, MG, BMP, ADIFF, GFR, CBC, HFP #### [address] [address] Monocytes/100 WBC (Bld) 9.6 % Normal 2.0-13.0 [facility] MAIN Comment on above: Performed By: #### A COLLIN, MG, BMP, ADIFF, GFR, CBC, HFP #### [address] [address] Neutrophils/100 WBC (Bld) 78.9 % High 50.0-75.0 [facility] MAIN Comment on above: Performed By: #### A COLLIN, MG, BMP, ADIFF, GFR, CBC, HFP #### [address] [address] .GFRon 05-14-2024 GFR >60 Normal [facility] MAIN Comment on above: Result Comment: [...] MG, BMP, ADIFF, GFR, CBC, HFP #### [place] [address] GFR Non- 51 ml/min/1.73sqm [facility] MAIN Comment on above: Result Comment: [...] MG, BMP, ADIFF, GFR, CBC, HFP #### [place] [id number] .NEUABSon 05-14-2024 Neutrophil, Absolute 8.8 10 3/mcL High 2.3-8.1 [facility] MAIN Comment on above: Performed By: #### A COLLIN, MG, BMP, ADIFF, GFR, CBC, HFP #### [place] [address] A1Con 05-14-2024 Glucose [Mass/Vol] 105 mg/dL [facility] MAIN Comment on above: Result Comment: Mayte mated Average Glucose calculated by equation ((28.7xA1C)-46.7) Estimated average glucose (eAG) is a calculated value from Hemoglobin A1C and is business process representative of the average blood glucose level in the last 2-3 month period. Normal range: less than 114 mg/dL Performed By: #### A COLLIN, MG, BMP, ADIFF, GFR, CBC, HFP #### [place] [id number] HbA1c (Bld) [Mass fraction] 5.3 % Normal 4.0-6.0 [facility] MAIN Comment on above: Performed By: #### A COLLIN, MG, BMP, ADIFF, GFR, CBC, HFP #### [place] [id number] APTTon 05-14-2024 aPTT Coag (Bld) [Time] 56.4 s High 25.0-35.0 [facility] MAIN Comment on above: Result Comment: For Heparin anticoagulation therapy, the recommended therapeutic range is: 54-77 seconds (APTT Correlation with Anti-Xa therapeutic range of 0.3-0.7 units/ml). PLEASE REFERENCE THE PHARMACY PROTOCOL FOR DOSING. Performed By: #### G FR, BMP #### [place] [id number] aPTT Coag (Bld) [Time] 47.2 s High 25.0-35.0 [facility] MAIN Comment on above: Result Comment: For Heparin anticoagulation therapy, the recommended therapeutic range is: 54-77 seconds (APTT Correlation with Anti-Xa therapeutic range of 0.3-0.7 units/ml). PLEASE REFERENCE THE PHARMACY PROTOCOL FOR DOSING. Performed By: #### G FR, BMP #### [place] [address] aPTT Coag (Bld) [Time] 61.5 s High 25.0-35.0 [facility] MAIN Comment on above: Result Comment: For Heparin anticoagulation therapy, the recommended therapeutic range is: 54-77 seconds (APTT Correlation with Anti-Xa therapeutic range of 0.3-0.7 units/ml). PLEASE REFERENCE THE PHARMACY PROTOCOL FOR DOSING. Performed By: #### A COLLIN, MG, BMP, ADIFF, GFR, CBC, HFP #### [place] [id number] aPTT Coag (Bld) [Time] 38.1 s High 25.0-35.0 [facility] MAIN Comment on above: Result Comment: For Heparin anticoagulation therapy, the recommended therapeutic range is: 54-77 seconds (APTT Correlation with Anti-Xa therapeutic range of 0.3-0.7 units/ml). PLEASE REFERENCE THE PHARMACY PROTOCOL FOR DOSING. Performed By: #### G FR, BMP #### [address] [address] BMPon 05-14-2024 BUN/Creatinine Ratio 14.6 ratio Normal 10.0-22.0 [facility] MAIN Comment on above: Performed By: #### A COLLIN, MG, BMP, ADIFF, GFR, CBC, HFP #### [place] [id number] Calcium [Mass/Vol] 9.4 mg/dL Normal 8.7-10.4 [facility] MAIN Comment on above: Performed By: #### A COLLIN, MG, BMP, ADIFF, GFR, CBC, HFP #### [place] [id number] Chloride [Moles/Vol] 100 mmol/L Normal 98-110 [facility] MAIN Comment on above: Performed By: #### A COLLIN, MG, BMP, ADIFF, GFR, CBC, HFP #### [place] [id number] CO2 [Moles/Vol] 31 mmol/L Normal 22-32 [facility] MAIN Comment on above: Performed By: #### A COLLIN, MG, BMP, ADIFF, GFR, CBC, HFP #### [place] [address] Creatinine [Mass/Vol] 1.03 mg/dL Normal 0.50-1.20 [facility] Comment on above: Result Comment: Test ing performed on Official Limited Virtual analyzer using enzymatic creatinine methodology. Performed By: #### A COLLIN, MG, BMP, ADIFF, GFR, CBC, HFP #### [place] [id number] Electrolyte Balance 8.0 mEq/L Normal 4.0-15.0 [facility] MAIN Comment on above: Performed By: #### A COLLIN, MG, BMP, ADIFF, GFR, CBC, HFP #### [address] [address] Glucose [Mass/Vol] 99 mg/dL Normal 82-115 [facility] MAIN Comment on above: Performed By: #### A COLLIN, MG, BMP, ADIFF, GFR, CBC, HFP #### [address] [address] Potassium [Moles/Vol] 3.8 mmol/L Normal 3.5-5.0 [facility] Comment on above: Performed By: #### A COLLIN, MG, BMP, ADIFF, GFR, CBC, HFP #### [address] [address] Sodium [Moles/Vol] 139 mmol/L Normal 136-145 [facility] MAIN Comment on above: Performed By: #### A COLLIN, MG, BMP, ADIFF, GFR, CBC, HFP #### [place] [address] Urea nitrogen [Mass/Vol] 15.0 mg/dL Normal 8.0-22.0 [facility] MAIN Comment on above: Performed By: #### A COLLIN, MG, BMP, ADIFF, GFR, CBC, HFP #### [address] [address] CBCon 05-14-2024 Erythrocyte distribution width (RBC) [Ratio] 13.7 % Normal 11.5-15.5 [facility] MAIN Comment on above: Performed By: #### A COLLIN, MG, BMP, ADIFF, GFR, CBC, HFP #### [place] [id number] Hematocrit (Bld) [Volume fraction] 41.1 % Normal 34.0-46.0 [facility] MAIN Comment on above: Performed By: #### A COLLIN, MG, BMP, ADIFF, GFR, CBC, HFP #### [place] [id number] Hgb 14.0 G/dL Normal 12.0-16.0 [facility] MAIN Comment on above: Performed By: #### A COLLIN, MG, BMP, ADIFF, GFR, CBC, HFP #### [place] [address] MCH (RBC) [Entitic mass] 30.0 pg Normal 27.0-33.0 [facility] MAIN Comment on above: Performed By: #### A COLLIN, MG, BMP, ADIFF, GFR, CBC, HFP #### [place] [address] MCHC 33.9 G/dL Normal 32.0-36.0 [facility] MAIN Comment on above: Performed By: #### A COLLIN, MG, BMP, ADIFF, GFR, CBC, HFP #### [place] [address] MCV (RBC) [Entitic vol] 88.5 fL Normal 80.0-99.0 [facility] MAIN Comment on above: Performed By: #### A COLLIN, MG, BMP, ADIFF, GFR, CBC, HFP #### [place] [address] Platelet 285 10 3/mcL Normal 150-450 [facility] MAIN Comment on above: Performed By: #### A COLLIN, MG, BMP, ADIFF, GFR, CBC, HFP #### [place] [address] Platelet mean volume (Bld) [Entitic vol] 8.1 fL Normal 6.6-10.5 [facility] MAIN Comment on above: Performed By: #### A COLLIN, MG, BMP, ADIFF, GFR, CBC, HFP #### [place] [address] RBC 4.65 10 6/mcL Normal 4.10-5.30 [facility] MAIN Comment on above: Performed By: #### A COLLIN, MG, BMP, ADIFF, GFR, CBC, HFP #### [place] [address] WBC 11.2 10 3/mcL High 4.5-10.8 [facility] MAIN Comment on above: Performed By: #### A COLLIN, MG, BMP, ADIFF, GFR, CBC, HFP #### [place] [address] HFPon 05-14-2024 Bili Indirect 0.3 mg/dL Normal 0.1-10.0 [facility] MAIN Comment on above: Performed By: #### A COLLIN, MG, BMP, ADIFF, GFR, CBC, HFP #### [place] [address] Albumin Level 3.4 G/dL Normal 3.2-4.8 [facility] MAIN Comment on above: Performed By: #### A COLLIN, MG, BMP, ADIFF, GFR, CBC, HFP #### [place] [address] Albumin/Globulin [Mass ratio] 1.4 {ratio} Normal 0.9-1.6 [facility] MAIN Comment on above: Performed By: #### A COLLIN, MG, BMP, ADIFF, GFR, CBC, HFP #### [place] [address] ALP [Catalytic activity/Vol] 101 U/L Normal 38-126 [facility] MAIN Comment on above: Performed By: #### A COLLIN, MG, BMP, ADIFF, GFR, CBC, HFP #### [place] [address] ALT [Catalytic activity/Vol] 29 U/L Normal 10-49 [facility] MAIN Comment on above: Performed By: #### A COLLIN, MG, BMP, ADIFF, GFR, CBC, HFP #### [place] [address] AST [Catalytic activity/Vol] 23 U/L Normal 8-34 [facility] MAIN Comment on above: Performed By: #### A COLLIN, MG, BMP, ADIFF, GFR, CBC, HFP #### [place] [address] Bili Direct 0.2 mg/dL Normal 0.0-0.4 [facility] MAIN Comment on above: Result Comment: Use of this assay is not recommended for patients undergoing treatment with eltrombopag due to the potential for falsely elevated results. Performed By: #### A COLLIN, MG, BMP, ADIFF, GFR, CBC, HFP #### [place] [address] Bili Total 0.50 mg/dL Normal 0.20-1.20 [facility] MAIN Comment on above: Result Comment: Use of this assay is not recommended for patients undergoing treatment with eltrombopag due to the potential for falsely elevated results. Performed By: #### A COLLIN, MG, BMP, ADIFF, GFR, CBC, HFP #### [address] [address] Globulin 2.5 G/dL Normal 1.5-3.8 [facility] MAIN Comment on above: Performed By: #### A COLLIN, MG, BMP, ADIFF, GFR, CBC, HFP #### [address] [address] Total Protein 5.9 G/dL Normal 5.7-8.2 [facility] MAIN Comment on above: Performed By: #### A COLLIN, MG, BMP, ADIFF, GFR, CBC, HFP #### [address] [address] LABORATORYOrdered By: Crissy Dutta on 05-14-2024 Cholesterol [Mass/Vol] 143 mg/dL Normal 50 - 199 mg/dL [facility] Comment on above: Interpretive Data: C holesterol Reference Interval: Less than 200 Desirable 200-239 Borderline high risk 240 and above High risk Cholesterol in HDL [Mass/Vol] 54 mg/dL Normal 40 - 59 mg/dL ADM Cholesterol in LDL [Mass/Vol] 77 mg/dL Normal 0 - 129 mg/dL [facility] Triglyceride [Mass/Vol] 61 mg/dL Normal 3 - 149 mg/dL [facility] LABORATORYOrdered By: SYSTEM SYSTEM on 05-14-2024 [...] calculated value from Hemoglobin A1C and is business process representative of the average blood glucose level [...] ng/L Male: 0-54 ng/L Testing performed on MulliganPlus analyzer using direct chemiluminescent technology. LIPIDon 05-14-2024 Cholesterol [Mass/Vol] 143 mg/dL Normal 50-199 [facility] MAIN Comment on above: Result Comment: Chol esterol Reference Interval: Less than 200 Desirable 200-239 Borderline high risk 240 and above High risk Performed By: #### A COLLIN, MG, BMP, ADIFF, GFR, CBC, HFP #### [place] [address] Cholesterol in HDL [Mass/Vol] 54 mg/dL Normal 40-59 [facility] MAIN Comment on above: Performed By: #### A COLLIN, MG, BMP, ADIFF, GFR, CBC, HFP #### [place] [address] Cholesterol in LDL [Mass/Vol] 77 mg/dL Normal 0-129 [facility]IN Comment on above: Performed By: #### A COLLIN, MG, BMP, ADIFF, GFR, CBC, HFP #### [place] [address] Triglyceride [Mass/Vol] 61 mg/dL Normal 3-149 [facility] MAIN Comment on above: Performed By: #### A COLLIN, MG, BMP, ADIFF, GFR, CBC, HFP #### [place] [address] MGon 05-14-2024 Magnesium [Mass/Vol] 2.0 mg/dL Normal 1.6-2.4 [facility] MAIN Comment on above: Performed By: #### A COLLIN, MG, BMP, ADIFF, GFR, CBC, HFP #### [address] [address] TROPHSon 05-14-2024 High Sensitivity Troponin I 133 ng/L High 0-34 [facility]IN Comment on above: Result Comment: High Sensitive Troponin I Reference Ranges: Female: 0-34 ng/L Male: 0-54 ng/L Testing performed on MulliganPlus analyzer using direct chemiluminescent technology. Performed By: #### A COLLIN, MG, BMP, ADIFF, GFR, CBC, HFP #### [place] [address] TSHRon 05-14-2024 TSH 1.218 mIU/mL Normal 0.550-4.780 [facility] MAIN Comment on above: Performed By: #### A COLLIN, MG, BMP, ADIFF, GFR, CBC, HFP #### [address] [address] .Auto Diffon 05-13-2024 Basophil, Absolute 0.1 10 3/mcL Normal 0.0-0.2 [facility] Comment on above: Performed By: #### M DW, MG, GFR, BMP, CBC, ANEU, TROPHS, ADIFF #### [address] [address] Basophils/100 WBC (Bld) 1.2 % Normal 0.0-2.5 [facility] Comment on above: Performed By: #### M DW, MG, GFR, BMP, CBC, ANEU, TROPHS, ADIFF #### [address] [address] Eosinophil, Absolute 0.2 10 3/mcL Normal 0.0-0.7 [facility] Comment on above: Performed By: #### M DW, MG, GFR, BMP, CBC, ANEU, TROPHS, ADIFF #### [address] [address] Eosinophils/100 WBC (Bld) 2.3 % Normal 0.0-7.0 [facility] Comment on above: Performed By: #### M DW, MG, GFR, BMP, CBC, ANEU, TROPHS, ADIFF #### [address] [address] Lymphocyte, Absolute 1.0 10 3/mcL Normal 0.9-4.3 [facility] Comment on above: Performed By: #### M DW, MG, GFR, BMP, CBC, ANEU, TROPHS, ADIFF #### [address] [address] Lymphocytes/100 WBC (Bld) 9.5 % Low 20.0-40.0 [facility] Comment on above: Performed By: #### M DW, MG, GFR, BMP, CBC, ANEU, TROPHS, ADIFF #### [address] [address] Monocyte, Absolute 0.8 10 3/mcL Normal 0.1-1.4 [facility] Comment on above: Performed By: #### M DW, MG, GFR, BMP, CBC, ANEU, TROPHS, ADIFF #### [address] [address] Monocytes/100 WBC (Bld) 8.1 % Normal 2.0-13.0 [facility] Comment on above: Performed By: #### M DW, MG, GFR, BMP, CBC, ANEU, TROPHS, ADIFF #### [address] [address] Neutrophils/100 WBC (Bld) 78.9 % High 50.0-75.0 [facility] Comment on above: Performed By: #### M DW, MG, GFR, BMP, CBC, ANEU, TROPHS, ADIFF #### [address] [address] .GFRon 05-13-2024 GFR 70 ml/min/1.73[facility]m [facility] [facility] Comment on above: Result Comment: GFR Population [...] GFR, BMP, CBC, ANEU, TROPHS, ADIFF #### [address] [address] GFR Non- 58 ml/min/1.73sqm [facility] Comment on above: Result Comment: GFR Population [...] GFR, BMP, CBC, ANEU, TROPHS, ADIFF #### [address] [address] .MDWon 05-13-2024 Monocyte Distribution Width 18.21 Normal 0.00-20.00 [facility] Comment on above: Result Comment: For ED adult patients suspected of sepsis, MDW<=20.0 does not rule out sepsis or risk of sepsis Performed By: #### M DW, MG, GFR, BMP, CBC, ANEU, TROPHS, ADIFF #### [address] [address] .NEUABSon 05-13-2024 Neutrophil, Absolute 8.3 10 3/mcL High 2.3-8.1 [facility] Comment on above: Performed By: #### M DW, MG, GFR, BMP, CBC, ANEU, TROPHS, ADIFF #### [address] [address] APTTon 05-13-2024 aPTT Coag (Bld) [Time] 43.1 s High 25.0-35.0 [facility] Comment on above: Result Comment: For Heparin anticoagulation therapy, the recommended therapeutic range is: 54-77 seconds (APTT Correlation with Anti-Xa therapeutic range of 0.3-0.7 units/ml). PLEASE REFERENCE THE PHARMACY PROTOCOL FOR DOSING. Performed By: #### G FR, BMP #### [facility] [address] [place] [id number] aPTT Coag (Bld) [Time] 32.5 s Normal 25.0-35.0 [facility] Comment on above: Result Comment: For Heparin anticoagulation therapy, the recommended therapeutic range is: 45.4-75.9 seconds. Patients on heparin therapy may have an extreme result. Performed By: #### M DW, MG, GFR, BMP, CBC, ANEU, TROPHS, ADIFF #### [address] [address] CBCon 05-13-2024 Erythrocyte distribution width (RBC) [Ratio] 13.9 % Normal 11.5-15.5 [facility] Comment on above: Performed By: #### M DW, MG, GFR, BMP, CBC, ANEU, TROPHS, ADIFF #### [place] [address] Hematocrit (Bld) [Volume fraction] 42.2 % Normal 34.0-46.0 [facility] Comment on above: Performed By: #### M DW, MG, GFR, BMP, CBC, ANEU, TROPHS, ADIFF #### [place] [address] Hgb 14.5 G/dL Normal 12.0-16.0 [facility] Comment on above: Performed By: #### M DW, MG, GFR, BMP, CBC, ANEU, TROPHS, ADIFF #### [place] [id number] MCH (RBC) [Entitic mass] 30.2 pg Normal 27.0-33.0 [facility] Comment on above: Performed By: #### M DW, MG, GFR, BMP, CBC, ANEU, TROPHS, ADIFF #### [place] [address] MCHC 34.3 G/dL Normal 32.0-36.0 [facility] Comment on above: Performed By: #### M DW, MG, GFR, BMP, CBC, ANEU, TROPHS, ADIFF #### [place] [address] MCV (RBC) [Entitic vol] 88.1 fL Normal 80.0-99.0 [facility] Comment on above: Performed By: #### M DW, MG, GFR, BMP, CBC, ANEU, TROPHS, ADIFF #### [address] [address] Platelet 306 10 3/mcL Normal 150-450 [facility] Comment on above: Performed By: #### M DW, MG, GFR, BMP, CBC, ANEU, TROPHS, ADIFF #### [address] [address] Platelet mean volume (Bld) [Entitic vol] 7.8 fL Normal 6.6-10.5 [facility] Comment on above: Performed By: #### M DW, MG, GFR, BMP, CBC, ANEU, TROPHS, ADIFF #### [address] [address] RBC 4.79 10 6/mcL Normal 4.10-5.30 [facility] Comment on above: Performed By: #### M DW, MG, GFR, BMP, CBC, ANEU, TROPHS, ADIFF #### [address] [address] WBC 10.5 10 3/mcL Normal 4.5-10.8 [facility] Comment on above: Performed By: #### M DW, MG, GFR, BMP, CBC, ANEU, TROPHS, ADIFF #### [address] [address] CMPon 05-13-2024 Albumin Level 3.6 G/dL Normal 3.4-4.8 [facility] Comment on above: Performed By: #### M DW, MG, GFR, BMP, CBC, ANEU, TROPHS, ADIFF #### [address] [address] Albumin/Globulin [Mass ratio] 1.4 {ratio} Normal 1.1-2.5 [facility] Comment on above: Performed By: #### M DW, MG, GFR, BMP, CBC, ANEU, TROPHS, ADIFF #### [address] [address] ALP [Catalytic activity/Vol] 114 U/L Normal 40-135 [facility] Comment on above: Performed By: #### M DW, MG, GFR, BMP, CBC, ANEU, TROPHS, ADIFF #### [address] [address] ALT [Catalytic activity/Vol] 41 U/L Normal 14-59 [facility] Comment on above: Performed By: #### M DW, MG, GFR, BMP, CBC, ANEU, TROPHS, ADIFF #### [address] [address] AST [Catalytic activity/Vol] 20 U/L Normal 10-40 [facility] Comment on above: Performed By: #### M DW, MG, GFR, BMP, CBC, ANEU, TROPHS, ADIFF #### [address] [address] Bili Total 0.5 mg/dL Normal 0.2-1.0 [facility] Comment on above: Result Comment: Use of this assay is not recommended for patients undergoing treatment with eltrombopag due to the potential for falsely elevated results. Performed By: #### M DW, MG, GFR, BMP, CBC, ANEU, TROPHS, ADIFF #### [address] [address] BUN/Creatinine Ratio 18 ratio Normal 7-27 [facility] Comment on above: Performed By: #### M DW, MG, GFR, BMP, CBC, ANEU, TROPHS, ADIFF #### [address] [address] Calcium [Mass/Vol] 9.4 mg/dL Normal 8.4-10.2 [facility] Comment on above: Performed By: #### M DW, MG, GFR, BMP, CBC, ANEU, TROPHS, ADIFF #### [address] [address] Chloride [Moles/Vol] 98 mmol/L Normal 98-107 [facility] Comment on above: Performed By: #### M DW, MG, GFR, BMP, CBC, ANEU, TROPHS, ADIFF #### [address] [address] CO2 [Moles/Vol] 29 mmol/L Normal 23-31 [facility] Comment on above: Performed By: #### M DW, MG, GFR, BMP, CBC, ANEU, TROPHS, ADIFF #### [address] [address] Creatinine [Mass/Vol] 0.93 mg/dL Normal 0.55-1.02 [facility] Comment on above: Result Comment: Test ing performed on [employer] Dimension EXL analyzer using a modified kinetic Josse technique. Performed By: #### M DW, MG, GFR, BMP, CBC, ANEU, TROPHS, ADIFF #### [place] [address] Electrolyte Balance 5.0 mEq/L Normal 4.0-15.0 [facility] Comment on above: Performed By: #### M DW, MG, GFR, BMP, CBC, ANEU, TROPHS, ADIFF #### [place] [address] Globulin 2.6 G/dL Normal [facility] Comment on above: Performed By: #### M DW, MG, GFR, BMP, CBC, ANEU, TROPHS, ADIFF #### [place] [address] Glucose [Mass/Vol] 139 mg/dL High 83-110 [facility] Comment on above: Performed By: #### M DW, MG, GFR, BMP, CBC, ANEU, TROPHS, ADIFF #### [place] [address] Potassium [Moles/Vol] 3.9 mmol/L Normal 3.5-5.1 [facility] Comment on above: Performed By: #### M DW, MG, GFR, BMP, CBC, ANEU, TROPHS, ADIFF #### [place] [address] Sodium [Moles/Vol] 132 mmol/L Low 136-145 [facility] Comment on above: Performed By: #### M DW, MG, GFR, BMP, CBC, ANEU, TROPHS, ADIFF #### [place] [address] [place], [place] [address] Total Protein 6.2 G/dL Low 6.4-8.2 [facility] Comment on above: Performed By: #### M DW, MG, GFR, BMP, CBC, ANEU, TROPHS, ADIFF #### [place] [address] [place], [place] [address] Urea nitrogen [Mass/Vol] 17 mg/dL Normal 7-18 [facility] Comment on above: Performed By: #### M DW, MG, GFR, BMP, CBC, ANEU, TROPHS, ADIFF #### [place] [address] [place], [place] [address] LABORATORYOrdered By: SYSTEM SYSTEM on 05-13-2024 aPTT [...] Comment on above: Interpretive Data: Jatinder samano [employer] (CHEST, 1992, 102:312S-25S) [...] Workflow SS Natriuretic peptide.B prohormone N-Terminal [Mass/Vol] 75403 pg/mL High 0 - 450 pg/mL AO [...] ng/L Male: 0-76 ng/L Testing performed on [employer] using a homogeneous sandwich chemiluminescent immunoassay based on Germin8 technology. Urea nitrogen [Mass/Vol] 17 mg/dL Normal 7 - 18 mg/dL AO ADM SS Urea nitrogen/Creatinine [Mass ratio] 18 ratio Normal 7 - 27 ratio AO ADM SS WBC (Bld) [#/Vol] 10.5 103/mcL Normal 4.5 - 10.8 10^3/mcL AO Workflow SS PBNPon 05-13-2024 Natriuretic peptide B (Bld) [Mass/Vol] 424[address] pg/mL High 0-450 [facility] Comment on above: Result Comment: NT-p roBNP results of less than 300 pg/mL effectively rules out acute congestive heart failure with 99% negative predictive value. Performed By: #### M DW, MG, GFR, BMP, CBC, ANEU, TROPHS, ADIFF #### [address] [address] PROon 05-13-2024 PT Coag (PPP) [Time] 11.3 s Normal 9.0-14.4 [facility] Comment on above: Performed By: #### M DW, MG, GFR, BMP, CBC, ANEU, TROPHS, ADIFF #### [address] [address] PT International Ratio 1.0 Normal [facility] Comment on above: Result Comment: [employer] (CHEST, 1992, 102:312S-25S) recommended therapeutic range for oral anticoagulant therapy is: LOW RISK: Prophylaxis of venous thrombosis INR: 2.0-3.0 Treatment of pulmonary embolism 2.0-3.0 Prevention of systemic embolism 2.0-3.0 HIGH RISK: Mechanical prosthetic valves 2.5-3.5 Performed By: #### M DW, MG, GFR, BMP, CBC, ANEU, TROPHS, ADIFF #### [address] [address] TROPHSon 05-13-2024 High Sensitivity Troponin I 207 ng/L High 0-51 [facility] Comment on above: Result Comment: High Sensitive Troponin I Reference Ranges: Female: 0-51 ng/L Male: 0-76 ng/L Testing performed on [employer] using a homogeneous sandwich chemiluminescent immunoassay based on Germin8 technology. Performed By: #### M DW, MG, GFR, BMP, CBC, ANEU, TROPHS, ADIFF #### [address] [address] XR CHEST 1 VIEWon 05-13-2024 XR CHEST [...] SIMS [facility] .GFRon 04-13-2024 GFR Non- 54 ml/min/1.73sqm [facility] Comment on above: Result Comment: GFR Population [...] GFR, BMP, CBC, ANEU, TROPHS, ADIFF #### [address] [address] GFR 66 ml/min/1.73sqm Normal [facility] Comment on above: Result Comment: GFR Population [...] GFR, BMP, CBC, ANEU, TROPHS, ADIFF #### [address] [address] BMPon 04-13-2024 BUN/Creatinine Ratio 18 ratio Normal 7-27 [facility] Comment on above: Performed By: #### M DW, MG, GFR, BMP, CBC, ANEU, TROPHS, ADIFF #### [address] [address] Calcium [Mass/Vol] 10.3 mg/dL High 8.4-10.2 [facility] Comment on above: Performed By: #### M DW, MG, GFR, BMP, CBC, ANEU, TROPHS, ADIFF #### [address] [address] Chloride [Moles/Vol] 89 mmol/L Low 98-107 [facility] Comment on above: Performed By: #### M DW, MG, GFR, BMP, CBC, ANEU, TROPHS, ADIFF #### [address] [address] CO2 [Moles/Vol] 34 mmol/L High 23-31 [facility] Comment on above: Performed By: #### M DW, MG, GFR, BMP, CBC, ANEU, TROPHS, ADIFF #### [address] [address] Creatinine [Mass/Vol] 0.98 mg/dL Normal 0.55-1.02 [facility] Comment on above: Result Comment: Test ing performed on [employer] Dimension EXL analyzer using a modified kinetic Josse technique. Performed By: #### M DW, MG, GFR, BMP, CBC, ANEU, TROPHS, ADIFF #### [address] [address] Electrolyte Balance 6.0 mEq/L Normal 4.0-15.0 [facility] Comment on above: Performed By: #### M DW, MG, GFR, BMP, CBC, ANEU, TROPHS, ADIFF #### [address] [address] Glucose [Mass/Vol] 106 mg/dL Normal 83-110 [facility] Comment on above: Performed By: #### M DW, MG, GFR, BMP, CBC, ANEU, TROPHS, ADIFF #### [address] [address] Potassium [Moles/Vol] 4.6 mmol/L Normal 3.5-5.1 [facility] Comment on above: Performed By: #### M DW, MG, GFR, BMP, CBC, ANEU, TROPHS, ADIFF #### [address] [address] Sodium [Moles/Vol] 129 mmol/L Low 136-145 [facility] Comment on above: Performed By: #### M DW, MG, GFR, BMP, CBC, ANEU, TROPHS, ADIFF #### [address] [address] Urea nitrogen [Mass/Vol] 18 mg/dL Normal 7-18 [facility] Comment on above: Performed By: #### M DW, MG, GFR, BMP, CBC, ANEU, TROPHS, ADIFF #### [address] [address] LABORATORYOrdered By: SYSTEM SYSTEM on 04-13-2024 Calcium [...] SS .GFRon 03-12-2024 GFR 74 ml/min/1.73sqm Normal [facility] Comment on above: Result Comment: GFR Population [...] GFR, BMP, CBC, ANEU, TROPHS, ADIFF #### [address] [address] GFR Non- 61 ml/min/1.73sqm Normal [facility] Comment on above: Result Comment: GFR Population [...] BMP, CBC, ANEU, TROPHS, ADIFF #### [place] [address] [place], [place] [address] BD BONE DENSITY DEXA AXIAL S Ignacio [...] 03/12/2024 12:06:57 PM Ordering Provider: EMILIANO Mercado [facility] CMPon 03-12-2024 Albumin Level 4.0 G/dL Normal 3.4-4.8 [facility] Comment on above: Performed By: #### M DW, MG, GFR, BMP, CBC, ANEU, TROPHS, ADIFF #### [address] [address] Albumin/Globulin [Mass ratio] 1.5 {ratio} Normal 1.1-2.5 [facility] Comment on above: Performed By: #### M DW, MG, GFR, BMP, CBC, ANEU, TROPHS, ADIFF #### [address] [address] ALP [Catalytic activity/Vol] 133 U/L Normal 40-135 [facility] Comment on above: Performed By: #### M DW, MG, GFR, BMP, CBC, ANEU, TROPHS, ADIFF #### [address] [address] ALT [Catalytic activity/Vol] 14 U/L Normal 14-59 [facility] Comment on above: Performed By: #### M DW, MG, GFR, BMP, CBC, ANEU, TROPHS, ADIFF #### [address] [address] AST [Catalytic activity/Vol] 11 U/L Normal 10-40 [facility] Comment on above: Performed By: #### M DW, MG, GFR, BMP, CBC, ANEU, TROPHS, ADIFF #### [address] [address] Bili Total 0.4 mg/dL Normal 0.2-1.0 [facility] Comment on above: Result Comment: Use of this assay is not recommended for patients undergoing treatment with eltrombopag due to the potential for falsely elevated results. Performed By: #### M DW, MG, GFR, BMP, CBC, ANEU, TROPHS, ADIFF #### [address] [address] BUN/Creatinine Ratio 16 ratio Normal 7-27 [facility] Comment on above: Performed By: #### M DW, MG, GFR, BMP, CBC, ANEU, TROPHS, ADIFF #### [address] [address] Calcium [Mass/Vol] 10.4 mg/dL High 8.4-10.2 [facility] Comment on above: Performed By: #### M DW, MG, GFR, BMP, CBC, ANEU, TROPHS, ADIFF #### [place] [address] Chloride [Moles/Vol] 94 mmol/L Low 98-107 [facility] Comment on above: Performed By: #### M DW, MG, GFR, BMP, CBC, ANEU, TROPHS, ADIFF #### [place] [address] CO2 [Moles/Vol] 31 mmol/L Normal 23-31 [facility] Comment on above: Performed By: #### M DW, MG, GFR, BMP, CBC, ANEU, TROPHS, ADIFF #### [place] [address] Creatinine [Mass/Vol] 0.89 mg/dL Normal 0.55-1.02 [facility] Comment on above: Result Comment: Test ing performed on [employer] Dimension EXL analyzer using a modified kinetic Josse technique. Performed By: #### M DW, MG, GFR, BMP, CBC, ANEU, TROPHS, ADIFF #### [place] [address] Electrolyte Balance 7.0 mEq/L Normal 4.0-15.0 [facility] Comment on above: Performed By: #### M DW, MG, GFR, BMP, CBC, ANEU, TROPHS, ADIFF #### [place] [address] Globulin 2.6 G/dL Normal [facility] Comment on above: Performed By: #### M DW, MG, GFR, BMP, CBC, ANEU, TROPHS, ADIFF #### [address] [address] Glucose [Mass/Vol] 92 mg/dL Normal 83-110 [facility] Comment on above: Performed By: #### M DW, MG, GFR, BMP, CBC, ANEU, TROPHS, ADIFF #### [address] [address] Potassium [Moles/Vol] 4.4 mmol/L Normal 3.5-5.1 [facility] Comment on above: Performed By: #### M DW, MG, GFR, BMP, CBC, ANEU, TROPHS, ADIFF #### [address] [address] Sodium [Moles/Vol] 132 mmol/L Low 136-145 [facility] Comment on above: Performed By: #### M DW, MG, GFR, BMP, CBC, ANEU, TROPHS, ADIFF #### [address] [address] Total Protein 6.6 G/dL Normal 6.4-8.2 [facility] Comment on above: Performed By: #### M DW, MG, GFR, BMP, CBC, ANEU, TROPHS, ADIFF #### [address] [address] Urea nitrogen [Mass/Vol] 14 mg/dL Normal 7-18 [facility] Comment on above: Performed By: #### M DW, MG, GFR, BMP, CBC, ANEU, TROPHS, ADIFF #### [address] [address] LABORATORYOrdered By: Jermaine Sellers on 03-12-2024 Albumin DL <= 20 mg/L (U) [Mass/Vol] [address] mcg/dL Invalid Interpretation Code AO ADM SS [...] MALBRon 03-12-2024 U Creatinine <13.0 Low 28.0-117.0 [facility] Comment on above: Performed By: #### M DW, MG, GFR, BMP, CBC, ANEU, TROPHS, ADIFF #### [facility] [address] [place], [place] [address] U Microalb [address] mcg/dL Normal [facility] Comment on above: Performed By: #### M DW, MG, GFR, BMP, CBC, ANEU, TROPHS, ADIFF #### [place] [address] [place], [place] [address] U Ratio Alb/Cre Unable to calc Normal 0-[address] [facility] Comment on above: Performed By: #### M DW, MG, GFR, BMP, CBC, ANEU, TROPHS, ADIFF #### [place] [address] [place], [place] [address] LABORATORYOrdered By: SYSTEM SYSTEM on 07-12-2022 Albumin [...] Albumin DL <= 20 mg/L (U) [Mass/Vol] [address] mcg/dL Invalid Interpretation Code AO ADM SS [...] Non-Invasive 80 mm[Hg] VICTOR MANUEL PETERSON MD [facility] 02-19-2025 12:03-0500 Heart rate 68 /min VICTOR MANUEL PETERSON MD [facility] 02-19-2025 12:03-0500 Systolic Blood Pressure Non-Invasive 156 mm[Hg] VICTOR MANUEL PETERSON MD [address] [place] [id number] 02-19-2025 10:47-0500 Diastolic Blood Pressure Non-Invasive 82 mm[Hg] VICTOR MANUEL PETERSON MD [address] [place] [id number] 02-19-2025 10:47-0500 Heart rate 67 /min VICTOR MANUEL PETERSON MD [address] [place] [id number] 02-19-2025 10:47-0500 Respiratory rate 18 /min VICTOR MANUEL PETERSON MD [address] [place] [id number] 02-19-2025 10:47-0500 Systolic Blood Pressure Non-Invasive 159 mm[Hg] VICTOR MANUEL PETERSON MD [address] [place] [id number] 02-19-2025 10:32-0500 Diastolic Blood Pressure Non-Invasive 89 mm[Hg] VICTOR MANUEL PETERSON MD [address] [place] [id number] 02-19-2025 10:32-0500 Heart rate 67 /min VICTOR MANUEL PETERSON MD [address] [place] [id number] 02-19-2025 10:32-0500 Respiratory rate 18 /min VICTOR MANUEL PETERSON MD [address] [place] [id number] 02-19-2025 10:32-0500 Systolic Blood Pressure Non-Invasive 165 mm[Hg] VICTOR MANUEL PETERSON MD [address] [place] [id number] 02-19-2025 10:17-0500 Respiratory rate 18 /min VICTOR MANUEL PETERSON MD [address] [place] [id number] 02-19-2025 06:30-0500 Body height 157.5 cm VICTOR MANUEL PETERSON MD [address] [place] [address] 02-19-2025 06:30-0500 Body temperature 97.88 [degF] VICTOR MANUEL PETERSON MD [address] [place] [id number] 02-19-2025 06:30-0500 Body weight 76.2 kg VICTOR MANUEL PETERSON MD [address] [place] [id number] 02-11-2025 13:28-0500 Blood Pressure Cuff Size DONATO NAVARRETE DO [facility] 02-11-2025 13:28-0500 Blood Pressure Location DONATO NAVARRETE DO [facility] 02-11-2025 13:28-0500 Blood Pressure Method DONATO NAVARRETE DO [facility] 02-11-2025 13:28-0500 Diastolic Blood Pressure Non-Invasive 73 mm[Hg] DONATO NAVARRETE DO [facility] 02-11-2025 13:28-0500 Systolic Blood Pressure Non-Invasive 162 mm[Hg] DONATO NAVARRETE DO [facility] 02-11-2025 13:24-0500 Blood Pressure Cuff Size DNOATO NAVARRETE DO [facility] 02-11-2025 13:24-0500 Blood Pressure Location DONATO NAVARRETE DO [facility] 02-11-2025 13:24-0500 Blood Pressure Method DONATO NAVARRETE DO [facility] 02-11-2025 13:24-0500 Body temperature 97.34 [degF] DONATO NAVARRETE DO [facility] 02-11-2025 13:24-0500 Diastolic Blood Pressure Non-Invasive 95 mm[Hg] DONATO NAVARRETE DO [facility] 02-11-2025 13:24-0500 Heart rate 77 /min DONATO NAVARRETE DO [facility] 02-11-2025 13:24-0500 Reason For Taking VItal Signs DONATO NAVARRETE DO [facility] 02-11-2025 13:24-0500 Respiratory rate 18 /min DONATO NAVARRETE DO [facility] 02-11-2025 13:24-0500 Systolic Blood Pressure Non-Invasive 186 mm[Hg] DONATO NAVARRETE DO [facility] 08-09-2024 05:30-0400 Heart rate 52 /min HARRY BAILON MD [address] [place] [id number] 08-09-2024 05:30-0400 Respiratory rate 16 /min HARRY BAILON MD [address] [place] [id number] 08-09-2024 03:30-0400 Blood Pressure Location HARRY BAILON MD [address] [place] [address] 08-09-2024 03:30-0400 Blood Pressure Method HARRY BAILON MD [address] [place] [address] 08-09-2024 03:30-0400 Body temperature 98.24 [degF] HARRY BAILON MD [address] [place] [address] 08-09-2024 03:30-0400 Diastolic Blood Pressure Non-Invasive 46 mm[Hg] HARRY BAILON MD [address] [place] [address] 08-09-2024 03:30-0400 Heart rate 52 /min HARRY BAILON MD [address] [place] [address] 08-09-2024 03:30-0400 Respiratory rate 16 /min HARRY BAILON MD [address] [place] [address] 08-09-2024 03:30-0400 Systolic Blood Pressure Non-Invasive 94 mm[Hg] HARRY BAILON MD [address] [place] [address] 08-09-2024 02:58-0400 Heart rate 51 /min HARRY BAILON MD [address] [place] [address] 08-08-2024 20:58-0400 Body temperature 97.7 [degF] HARRY BAILON MD [address] [place] [address] 08-08-2024 20:58-0400 Diastolic Blood Pressure Non-Invasive 74 mm[Hg] HARRY BAILON MD [address] [place] [address] 08-08-2024 20:58-0400 Respiratory rate 18 /min HARRY BAILON MD [address] [place] [address] 08-08-2024 20:58-0400 Systolic Blood Pressure Non-Invasive 121 mm[Hg] HARRY BAILON MD [address] [place] [address] 08-08-2024 15:10-0400 Diastolic Blood Pressure Non-Invasive 64 mm[Hg] HARRY BAILON MD [address] [place] [address] 08-08-2024 15:10-0400 Systolic Blood Pressure Non-Invasive 121 mm[Hg] HARRY BAILON MD [address] [place] [address] 08-08-2024 14:30-0400 Diastolic blood pressure 4 mm[Hg] HARRY BAILON MD [address] [place] [address] 08-08-2024 14:30-0400 Systolic blood pressure 117 mm[Hg] HARRY BAILON MD [address] [place] [address] 08-08-2024 14:25-0400 Diastolic blood pressure 47 mm[Hg] HARRY BAILON MD [address] [place] [address] 08-08-2024 14:25-0400 Systolic blood pressure 119 mm[Hg] HARRY BAILON MD [address] [place] [address] 08-08-2024 14:20-0400 Diastolic blood pressure 50 mm[Hg] HARRY BAILON MD [address] [place] [address] 08-08-2024 14:20-0400 Systolic blood pressure 106 mm[Hg] HARRY BAILON MD [address] [place] [address] 08-08-2024 13:55-0400 Respiratory Rate - Anes 12 br/min HARRY BAILON MD [address] [place] [address] 08-08-2024 13:54-0400 Respiratory Rate - Anes 12 br/min HARRY BAILON MD [address] [place] [address] 08-08-2024 13:53-0400 Respiratory Rate - Anes 12 br/min HARRY BAILON MD [address] [place] [address] 08-08-2024 13:40-0400 Body temperature 97.97 [degF] HARRY BAILON MD [address] [place] [address] 08-08-2024 13:35-0400 Body temperature 97.95 [degF] HARRY BAILON MD [address] [place] [address] 08-08-2024 13:30-0400 Body temperature 97.97 [degF] HARRY BAILON MD [address] [place] [address] 08-08-2024 07:53-0400 Blood Pressure Location HARRY BAILON MD [address] [place] [address] 08-08-2024 07:53-0400 Blood Pressure Method HARRY BAILON MD [address] [place] [address] 08-08-2024 07:53-0400 Body height 157.5 cm HARRY BAILON MD [address] [place] [address] 08-08-2024 07:53-0400 Body temperature 97.34 [degF] HARRY BAILON MD [address] [place] [id number] 08-08-2024 07:53-0400 Body weight 65.9 kg HARRY BAILON MD [address] [place] [id number] 08-08-2024 07:53-0400 Heart rate 92 /min HARRY BAILON MD [address] [place] [id number] 07-27-2024 12:34-0400 Blood Pressure Cuff Size HARRY BAILON MD [address] [place] [id number] 07-27-2024 12:34-0400 Blood Pressure Location HARRY BAILON MD [address] [place] [id number] 07-27-2024 12:34-0400 Blood Pressure Method HARRY BAILON MD [address] [place] [id number] 07-27-2024 12:34-0400 Body height 158 cm HARRY BAILON MD [address] [place] [id number] 07-27-2024 12:34-0400 Body temperature 97.34 [degF] HARRY BAILON MD [address] [place] [id number] 07-27-2024 12:34-0400 Body weight 65.6 kg HARRY BAILON MD [address] [place] [id number] 07-27-2024 12:34-0400 Body weight 26.28 kg/m2 HARRY BAILON MD [address] [place] [id number] 07-27-2024 12:34-0400 Diastolic Blood Pressure Non-Invasive 73 mm[Hg] HARRY BAILON MD [address] [place] [id number] 07-27-2024 12:34-0400 Heart rate 106 /min HARRY BAILON MD [address] [place] [id number] 07-27-2024 12:34-0400 Systolic Blood Pressure Non-Invasive 152 mm[Hg] HARRY BAILON MD [address] [place] [address] 07-01-2024 15:39-0400 Heart rate 58 /min DR MONIKA AGUSTIN MD [address] [place] [address] 07-01-2024 15:39-0400 Reason For Taking VItal Signs DR MONIKA AGUSTIN MD [address] [place] [address] 07-01-2024 15:07-0400 Heart rate 59 /min DR MONIKA AGUSTIN MD [address] [place] [address] 07-01-2024 15:07-0400 Blood Pressure Cuff Size DR MONIKA AGUSTIN MD [address] [place] [address] 07-01-2024 15:07-[address] MONIKA AGUSTIN MD [address] [place] [address] 07-01-2024 15:07-[address] MONIKA Sanchez MD [address] [place] [address] 07-01-2024 15:07-0400 Diastolic Blood Pressure Non-Invasive 63 mm[Hg] DR MONIKA AGUSTIN MD [address] [place] [address] 07-01-2024 15:07-0400 Mean blood pressure 103 mm[Hg] DR MONIKA AGUSTIN MD [address] [place] [address] 07-01-2024 15:07-0400 Reason For Taking VItal Signs DR MONIKA AGUSTIN MD [address] [place] [address] 07-01-2024 15:07-0400 Respiratory rate 18 /min DR MONIKA AGUSTIN MD [address] [place] [address] 07-01-2024 15:07-0400 Systolic Blood Pressure Non-Invasive 173 mm[Hg] DR MONIKA AGUSTIN MD [address] [place] [address] 07-01-2024 11:07-0400 Blood Pressure Cuff Size DR MONIKA AGUSTIN MD [address] [place] [address] 07-01-2024 11:07-[address] MONIKA AGUSTIN MD [address] [place] [address] 07-01-2024 11:07-[address] MONIKA Sanchez MD [address] [place] [address] 07-01-2024 11:07-0400 Body temperature 97.88 [degF] DR MONIKA AGUSTIN MD [address] [place] [address] 07-01-2024 11:07-0400 Diastolic Blood Pressure Non-Invasive 62 mm[Hg] DR MONIKA AGUSTIN MD [address] [place] [address] 07-01-2024 11:07-0400 Heart rate 60 /min DR MONIKA AGUSTIN MD [address] [place] [address] 07-01-2024 11:07-0400 Reason For Taking VItal Signs DR MONIKA AGUSTIN MD [address] [place] [address] 07-01-2024 11:07-0400 Respiratory rate 18 /min DR MONIKA AGUSTIN MD [address] [place] [address] 07-01-2024 11:07-0400 Systolic Blood Pressure Non-Invasive 150 mm[Hg] DR MONIKA AGUSTIN MD [address] [place] [address] 07-01-2024 07:03-0400 Diastolic Blood Pressure Non-Invasive 60 mm[Hg] DR MONIKA AGUSTIN MD [address] [place] [address] 07-01-2024 07:03-0400 Systolic Blood Pressure Non-Invasive 170 mm[Hg] DR MONIKA AGUSTIN MD [address] [place] [address] 07-01-2024 07:03-0400 Blood Pressure Cuff Size DR MONIKA AGUSTIN MD [address] [place] [address] 07-01-2024 07:03-[address] MONIKA AGUSTIN MD [address] [place] [address] 07-01-2024 07:03-[address] MONIKA Sanchez MD [address] [place] [address] 07-01-2024 07:03-0400 Heart rate 65 /min DR MONIKA AGUSTIN MD [address] [place] [address] 07-01-2024 07:03-0400 Respiratory rate 18 /min DR MONIKA AGUSTIN MD [address] [place] [address] 07-01-2024 06:43-0400 Heart rate 60 /min DR MONIKA AGUSTIN MD [address] [place] [address] 07-01-2024 03:33-0400 Mean blood pressure 109 mm[Hg] DR MONIKA AGUSTIN MD [address] [place] [address] 07-01-2024 00:15-0400 Mean blood pressure 103 mm[Hg] DR MONIKA AGUSTIN MD [address] [place] [address] 07-01-2024 00:12-0400 Body temperature 97.7 [degF] DR MONIKA AGUSTIN MD [address] [place] [address] 06-30-2024 20:06-0400 Body temperature 98.06 [degF] DR MONIKA AGUSTIN MD [address] [place] [address] 06-30-2024 19:26-0400 Heart rate 54 /min DR MONIKA AGUSTIN MD [address] [place] [address] 06-30-2024 18:56-0400 Heart rate 55 /min DR MONIKA AGUSTIN MD [address] [place] [address] 06-30-2024 16:00-0400 Heart rate 59 /min DR MONIKA AGUSTIN MD [address] [place] [address] 06-30-2024 11:40-0400 Heart rate 56 /min DR MONIKA AGUSTIN MD [address] [place] [address] 06-29-2024 10:12-0400 Body temperature 97.34 [degF] DR MONIKA AGUSTIN MD [address] [place] [address] 06-29-2024 10:10-0400 Respiratory Rate - Anes 21 br/min DR MONIKA AGUSTIN MD [address] [place] [address] 06-29-2024 10:05-0400 Respiratory Rate - Anes 17 br/min DR MONIKA AGUSTIN MD [address] [place] [address] 06-29-2024 10:00-0400 Respiratory Rate - Anes 22 br/min DR MONIKA AGUSTIN MD [address] [place] [address] 06-28-2024 05:22-0400 Body height [address] MONIKA AGUSTIN MD [address] [place] [address] 06-28-2024 05:22-0400 Body weight 63.[address] MONIKA AGUSTIN MD [address] [place] [address] 06-28-2024 05:22-0400 Body weight 22.91 kg/m2 DR MONIKA AGUSTIN MD [address] [place] [address] 06-28-2024 05:06-0400 Body weight 63.[address] MONIKA AGUSTIN MD [address] [place] [address] 06-19-2024 09:59-0400 Diastolic Blood Pressure Non-Invasive 74 mm[Hg] ANASTASIYA RANDEE SOLE SCRAPER-DYNAMOMETER TESTER ENGINE [address] [place] [address] 06-19-2024 09:59-0400 Heart rate 64 /min ANASTASIYA RANDEE SOLE SCRAPER-DYNAMOMETER TESTER ENGINE [address] [place] [address] 06-19-2024 09:59-0400 Respiratory rate 16 /min ANASTASIYA RANDEE SOLE SCRAPER-DYNAMOMETER TESTER ENGINE [address] [place] [address] 06-19-2024 09:59-0400 Systolic Blood Pressure Non-Invasive 146 mm[Hg] ANASTASIYA RANDEE SOLE SCRAPER-DYNAMOMETER TESTER ENGINE [address] [place] [address] 06-19-2024 09:50-0400 Diastolic Blood Pressure Non-Invasive 66 mm[Hg] ANASTASIYA RANDEE SOLE SCRAPER-DYNAMOMETER TESTER ENGINE [address] [place] [address] 06-19-2024 09:50-0400 Heart rate 58 /min ANASTASIYA RANDEE SOLE SCRAPER-DYNAMOMETER TESTER ENGINE [address] [place] [address] 06-19-2024 09:50-0400 Respiratory rate 16 /min ANASTASIYA RANDEE SOLE SCRAPER-DYNAMOMETER TESTER ENGINE [address] [place] [address] 06-19-2024 09:50-0400 Systolic Blood Pressure Non-Invasive 159 mm[Hg] ANASTASIYA RANDEE SOLE SCRAPER-DYNAMOMETER TESTER ENGINE [address] [place] [address] 06-19-2024 09:45-0400 Body temperature 97.16 [degF] ANASTASIYA RANDEE SOLE SCRAPER-DYNAMOMETER TESTER ENGINE [address] [place] [address] 06-19-2024 09:45-0400 Diastolic Blood Pressure Non-Invasive 74 mm[Hg] ANASTASIYA RANDEE SOLE SCRAPER-DYNAMOMETER TESTER ENGINE [address] [place] [address] 06-19-2024 09:45-0400 Heart rate 59 /min ANASTASIYA RANDEE SOLE SCRAPER-DYNAMOMETER TESTER ENGINE [address] [place] [address] 06-19-2024 09:45-0400 Heart rate 80 /min ANASTASIYA RANDEE SOLE SCRAPER-DYNAMOMETER TESTER ENGINE [address] [place] [address] 06-19-2024 09:45-0400 Respiratory rate 16 /min ANASTASIYA RANDEE SOLE SCRAPER-DYNAMOMETER TESTER ENGINE [address] [place] [address] 06-19-2024 09:45-0400 Respiratory Rate - Anes 14 br/min ANASTASIYA RANDEE SOLE SCRAPER-DYNAMOMETER TESTER ENGINE [address] [place] [address] 06-19-2024 09:45-0400 Systolic Blood Pressure Non-Invasive 159 mm[Hg] ANASTASIYA RANDEE SOLE SCRAPER-DYNAMOMETER TESTER ENGINE [address] [place] [address] 06-19-2024 09:40-0400 Respiratory Rate - Anes 24 br/min ANASTASIYA RANDEE SOLE SCRAPER-DYNAMOMETER TESTER ENGINE [address] [place] [address] 06-19-2024 09:35-0400 Respiratory Rate - Anes 14 br/min ANASTASIYA RANDEE SOLE SCRAPER-DYNAMOMETER TESTER ENGINE [address] [place] [address] 06-19-2024 06:34-0400 Body height 160 cm ANASTASIYA RANDEE SOLE SCRAPER-DYNAMOMETER TESTER ENGINE [address] [place] [address] 06-19-2024 06:34-0400 Body temperature 97.52 [degF] ANASTASIYA RANDEE SOLE SCRAPER-DYNAMOMETER TESTER ENGINE [address] [place] [address] 06-19-2024 06:34-0400 Body weight 61.3 kg ANASTASIYA RANDEE SOLE SCRAPER-DYNAMOMETER TESTER ENGINE [address] [place] [address] 06-19-2024 06:34-0400 Heart rate 91 /min ANASTASIYA RANDEE SOLE SCRAPER-DYNAMOMETER TESTER ENGINE [address] [place] [address] 05-29-2024 13:50-0500 Body temperature 98.06 [degF] DANIELLA KAPPER SOLE SCRAPER-DYNAMOMETER TESTER ENGINE [facility] 05-29-2024 13:50-0500 Diastolic Blood Pressure Non-Invasive 79 mm[Hg] DANIELLA KAPPER SOLE SCRAPER-DYNAMOMETER TESTER ENGINE [facility] 05-29-2024 13:50-0500 Heart rate 88 /min DANIELLA KAPPER SOLE SCRAPER-DYNAMOMETER TESTER ENGINE [facility] 05-29-2024 13:50-0500 Reason For Taking VItal Signs DANIELLA KAPPER SOLE SCRAPER-DYNAMOMETER TESTER ENGINE [facility] 05-29-2024 13:50-0500 Respiratory rate 18 /min DANIELLA KAPPER SOLE SCRAPER-DYNAMOMETER TESTER ENGINE [facility] 05-29-2024 13:50-0500 Systolic Blood Pressure Non-Invasive 106 mm[Hg] DANIELLA KAPPER SOLE SCRAPER-DYNAMOMETER TESTER ENGINE [facility] 05-29-2024 11:35-0500 Body temperature 98.06 [degF] DANIELLA KAPPER SOLE SCRAPER-DYNAMOMETER TESTER ENGINE [facility] 05-29-2024 11:35-0500 Diastolic Blood Pressure Non-Invasive 88 mm[Hg] DANIELLA KAPPER SOLE SCRAPER-DYNAMOMETER TESTER ENGINE [facility] 05-29-2024 11:35-0500 Heart rate 81 /min DANIELLA KAPPER SOLE SCRAPER-DYNAMOMETER TESTER ENGINE [facility] 05-29-2024 11:35-0500 Reason For Taking VItal Signs DANIELLA KAPPER SOLE SCRAPER-DYNAMOMETER TESTER ENGINE [facility] 05-29-2024 11:35-0500 Respiratory rate 18 /min DANIELLA KAPPER SOLE SCRAPER-DYNAMOMETER TESTER ENGINE [facility] 05-29-2024 11:35-0500 Systolic Blood Pressure Non-Invasive 128 mm[Hg] DANIELLA KAPPER SOLE SCRAPER-DYNAMOMETER TESTER ENGINE [facility] 05-29-2024 09:01-0500 Heart rate 80 /min DANIELLA KAPPER SOLE SCRAPER-DYNAMOMETER TESTER ENGINE [facility] 05-29-2024 08:58-0500 Blood Pressure Location DANIELLA KAPPER SOLE SCRAPER-DYNAMOMETER TESTER ENGINE [facility] 05-29-2024 08:58-0500 Blood Pressure Method DANIELLA HERNANDEZ SOLE SCRAPER-C SPOOL CLEANER [facility] 05-29-2024 08:58-0500 Body temperature 98.06 [degF] DANIELLA HERNANDEZ SOLE SCRAPER-DYNAMOMETER TESTER ENGINE [facility] 05-29-2024 08:58-0500 Diastolic Blood Pressure Non-Invasive 86 mm[Hg] DANIELLA HERNANDEZ SOLE SCRAPER-DYNAMOMETER TESTER ENGINE [facility] 05-29-2024 08:58-0500 Heart rate 78 /min DANIELLA HERNANDEZ SOLE SCRAPER-DYNAMOMETER TESTER ENGINE [facility] 05-29-2024 08:58-0500 Reason For Taking VItal Signs DANIELLA HERNANDEZ SOLE SCRAPER-DYNAMOMETER TESTER ENGINE [facility] 05-29-2024 08:58-0500 Systolic Blood Pressure Non-Invasive 125 mm[Hg] DANIELLA MCDONOUGHER SOLE SCRAPER-DYNAMOMETER TESTER ENGINE [facility] 05-29-2024 07:55-0500 Respiratory rate 18 /min DANIELLA MCDONOUGHER SOLE SCRAPER-DYNAMOMETER TESTER ENGINE [facility] 05-29-2024 07:35-0500 Heart rate 77 /min DANIELLA MCDONOUGHER SOLE SCRAPER-DYNAMOMETER TESTER ENGINE [facility] 05-28-2024 18:56-0500 Heart rate 77 /min DANIELLA CEASARER SOLE SCRAPER-DYNAMOMETER TESTER ENGINE [facility] 05-28-2024 17:38-0500 Heart rate 80 /min DANIELLA KAPPER SOLE SCRAPER-DYNAMOMETER TESTER ENGINE [facility] 05-28-2024 17:36-0500 Blood Pressure Location DANIELLA CEASARER SOLE SCRAPER-DYNAMOMETER TESTER ENGINE [facility] 05-28-2024 17:36-0500 Blood Pressure Method DANIELLA HERNANDEZ APRN-C SPOOL CLEANER [facility] 05-28-2024 17:36-0500 Heart rate 80 /min DANIELLA HERNANDEZ SOLE SCRAPER-DYNAMOMETER TESTER ENGINE [facility] 05-28-2024 08:45-0500 Heart rate 81 /min DANIELLA HERNANDEZ SOLE SCRAPER-DYNAMOMETER TESTER ENGINE [facility] 05-23-2024 14:01-0500 Body height 160 cm DANIELLA HERNANDEZ SOLE SCRAPER-DYNAMOMETER TESTER ENGINE [facility] 05-23-2024 14:01-0500 Body weight 63.8 kg DANIELLA HERNANDEZ SOLE SCRAPER-DYNAMOMETER TESTER ENGINE [facility] 05-23-2024 14:01-0500 Body weight 24.92 kg/m2 DANIELLA HERNANDEZ SOLE SCRAPER-DYNAMOMETER TESTER ENGINE [facility] 05-23-2024 10:31-0500 Body temperature 98.06 [degF] JULY EZEKIEL SOLE SCRAPER-DYNAMOMETER TESTER ENGINE [facility] 05-23-2024 10:31-0500 Diastolic Blood Pressure Non-Invasive 65 mm[Hg] JULY EZEKIEL SOLE SCRAPER-DYNAMOMETER TESTER ENGINE [facility] 05-23-2024 10:31-0500 Heart rate 64 /min JULY EZEKIEL SOLE SCRAPER-DYNAMOMETER TESTER ENGINE [facility] 05-23-2024 10:31-0500 Reason For Taking VItal Signs JULY EZEKIEL SOLE SCRAPER-DYNAMOMETER TESTER ENGINE [facility] 05-23-2024 10:31-0500 Respiratory rate 18 /min JULY EZEKIEL SOLE SCRAPER-DYNAMOMETER TESTER ENGINE [facility] 05-23-2024 10:31-0500 Systolic Blood Pressure Non-Invasive 131 mm[Hg] JULY [place] SOLE SCRAPER-DYNAMOMETER TESTER ENGINE [facility] 05-23-2024 08:30-0500 Heart rate 75 /min JULY [place] SOLE SCRAPER-DYNAMOMETER TESTER ENGINE [facility] 05-23-2024 06:36-0500 Body temperature 97.88 [degF] JULY [place] SOLE SCRAPER-DYNAMOMETER TESTER ENGINE [facility] 05-23-2024 06:36-0500 Diastolic Blood Pressure Non-Invasive 82 mm[Hg] JULY [place] SOLE SCRAPER-DYNAMOMETER TESTER ENGINE [facility] 05-23-2024 06:36-0500 Heart rate 72 /min JULY [place] SOLE SCRAPER-DYNAMOMETER TESTER ENGINE [facility] 05-23-2024 06:36-0500 Reason For Taking VItal Signs JULY [place] SOLE SCRAPER-DYNAMOMETER TESTER ENGINE [facility] 05-23-2024 06:36-0500 Respiratory rate 18 /min JULY [place] SOLE SCRAPER-DYNAMOMETER TESTER ENGINE [facility] 05-23-2024 06:36-0500 Systolic Blood Pressure Non-Invasive 135 mm[Hg] JULY [place] SOLE SCRAPER-DYNAMOMETER TESTER ENGINE [facility] 05-23-2024 02:32-0500 Body temperature 98.06 [degF] JULY [place] SOLE SCRAPER-DYNAMOMETER TESTER ENGINE [facility] 05-23-2024 02:32-0500 Diastolic Blood Pressure Non-Invasive 88 mm[Hg] JULY [place] SOLE SCRAPER-DYNAMOMETER TESTER ENGINE [facility] 05-23-2024 02:32-0500 Heart rate 64 /min JULY [place] SOLE SCRAPER-DYNAMOMETER TESTER ENGINE [facility] 05-23-2024 02:32-0500 Reason For Taking VItal Signs JULY [place] SOLE SCRAPER-DYNAMOMETER TESTER ENGINE [facility] 05-23-2024 02:32-0500 Respiratory rate 18 /min JULY [place] SOLE SCRAPER-DYNAMOMETER TESTER ENGINE [facility] 05-23-2024 02:32-0500 Systolic Blood Pressure Non-Invasive 138 mm[Hg] JULY [place] SOLE SCRAPER-DYNAMOMETER TESTER ENGINE [facility] 05-22-2024 23:28-0500 Heart rate 68 /min JULY [place] SOLE SCRAPER-DYNAMOMETER TESTER ENGINE [facility] 05-22-2024 19:50-0500 Heart rate 75 /min JULY [place] SOLE SCRAPER-DYNAMOMETER TESTER ENGINE [facility] 05-22-2024 18:03-0500 Heart rate 67 /min JULY [place] SOLE SCRAPER-DYNAMOMETER TESTER ENGINE [facility] 05-22-2024 07:58-0500 Heart rate 84 /min JULY [place] SOLE SCRAPER-DYNAMOMETER TESTER ENGINE [facility] 05-22-2024 07:45-0500 Blood Pressure Location JULY [place] SOLE SCRAPER-DYNAMOMETER TESTER ENGINE [facility] 05-22-2024 07:45-0500 Blood Pressure Method JULY [place] SOLE SCRAPER-DYNAMOMETER TESTER ENGINE [facility] 05-22-2024 03:56-0500 Body temperature 98.78 [degF] JULY [place] SOLE SCRAPER-DYNAMOMETER TESTER ENGINE [facility] 05-22-2024 03:56-0500 Heart rate 79 /min JULY [place] SOLE SCRAPER-DYNAMOMETER TESTER ENGINE [facility] 05-21-2024 17:25-0500 Blood Pressure Location JULY EZEKIEL SOLE SCRAPER-DYNAMOMETER TESTER ENGINE [facility] 05-21-2024 17:25-0500 Blood Pressure Method JULY EZEKIEL SOLE SCRAPER-DYNAMOMETER TESTER ENGINE [facility] 05-21-2024 02:37-0500 Body temperature 97.7 [degF] JULY [place] SOLE SCRAPER-DYNAMOMETER TESTER ENGINE [facility] 05-20-2024 22:36-0500 Body temperature 97.88 [degF] JULY [place] SOLE SCRAPER-DYNAMOMETER TESTER ENGINE [facility] 05-20-2024 14:00-0500 Heart rate 105 /min DANIELLA HERNANDEZ SOLE SCRAPER-DYNAMOMETER TESTER ENGINE [facility] 05-20-2024 01:45-0500 Body height 160 cm JULY EZEKIEL SOLE SCRAPER-DYNAMOMETER TESTER ENGINE [facility] 05-20-2024 01:45-0500 Body weight 63.8 kg JULY [place] SOLE SCRAPER-DYNAMOMETER TESTER ENGINE [facility] 05-20-2024 01:45-0500 Body weight 24.92 kg/m2 JULY [place] SOLE SCRAPER-DYNAMOMETER TESTER ENGINE [facility] 05-20-2024 00:39-0500 Diastolic Blood Pressure Non-Invasive 110 mm[Hg] DANIELLA HERNANDEZ SOLE SCRAPER-DYNAMOMETER TESTER ENGINE [facility] 05-20-2024 00:39-0500 Heart rate 110 /min DANIELLA HERNANDEZ SOLE SCRAPER-DYNAMOMETER TESTER ENGINE [facility] 05-20-2024 00:39-0500 Respiratory rate 30 /min DANIELLA HERNANDEZ SOLE SCRAPER-DYNAMOMETER TESTER ENGINE [facility] 05-20-2024 00:39-0500 Systolic Blood Pressure Non-Invasive 160 mm[Hg] DANIELLA MCDONOUGHER SOLE SCRAPER-DYNAMOMETER TESTER ENGINE [facility] 05-20-2024 00:30-0500 Heart rate 109 /min DANIELLA KAPPER SOLE SCRAPER-DYNAMOMETER TESTER ENGINE [facility] 05-20-2024 00:17-0500 Diastolic Blood Pressure Non-Invasive 138 mm[Hg] DANIELLA KAPPER SOLE SCRAPER-DYNAMOMETER TESTER ENGINE [facility] 05-20-2024 00:17-0500 Heart rate 71 /min DANIELLA KAPPER SOLE SCRAPER-DYNAMOMETER TESTER ENGINE [facility] 05-20-2024 00:17-0500 Respiratory rate 30 /min DANIELLA KAPPER SOLE SCRAPER-DYNAMOMETER TESTER ENGINE [facility] 05-20-2024 00:17-0500 Systolic Blood Pressure Non-Invasive 183 mm[Hg] DANIELLA KAPPER SOLE SCRAPER-DYNAMOMETER TESTER ENGINE [facility] 05-20-2024 00:14-0500 Respiratory rate 28 /min DANIELLA KAPPER SOLE SCRAPER-DYNAMOMETER TESTER ENGINE [facility] 05-20-2024 00:02-0500 Diastolic Blood Pressure Non-Invasive 134 mm[Hg] DANIELLA KAPPER SOLE SCRAPER-DYNAMOMETER TESTER ENGINE [facility] 05-20-2024 00:02-0500 Systolic Blood Pressure Non-Invasive 198 mm[Hg] DANIELLA KAPPER SOLE SCRAPER-DYNAMOMETER TESTER ENGINE [facility] 05-19-2024 23:43-0500 Heart rate 68 /min DANIELLA KAPPER SOLE SCRAPER-DYNAMOMETER TESTER ENGINE [facility] 05-19-2024 23:40-0500 Heart rate 65 /min DANIELLA KAPPER SOLE SCRAPER-DYNAMOMETER TESTER ENGINE [facility] 05-19-2024 20:30-0500 Body temperature 97.52 [degF] DANIELLA KAPPER SOLE SCRAPER-DYNAMOMETER TESTER ENGINE [facility] 05-19-2024 20:30-0500 Heart rate 59 /min DANIELLA KAPPER SOLE SCRAPER-DYNAMOMETER TESTER ENGINE [facility] 05-19-2024 20:30-0500 Reason For Taking VItal Signs DANIELLALatanya MCDONOUGHER SOLE SCRAPER-DYNAMOMETER TESTER ENGINE [facility] 05-19-2024 11:05-0500 Heart rate 61 /min DANIELLA KAPPER SOLE SCRAPER-DYNAMOMETER TESTER ENGINE [facility] 05-19-2024 10:32-0500 Heart rate 62 /min DANIELLA KAPPER SOLE SCRAPER-DYNAMOMETER TESTER ENGINE [facility] 05-19-2024 08:31-0500 Body temperature 97.52 [degF] DANIELLA KAPPER SOLE SCRAPER-DYNAMOMETER TESTER ENGINE [facility] 05-19-2024 04:05-0500 Body temperature 98.06 [degF] DANIELLA KAPPER SOLE SCRAPER-DYNAMOMETER TESTER ENGINE [facility] 05-18-2024 21:07-0500 Body height 160 cm DANIELLA KAPPER SOLE SCRAPER-DYNAMOMETER TESTER ENGINE [facility] 05-18-2024 21:07-0500 Body weight 63 kg DANIELLA KAPPER SOLE SCRAPER-DYNAMOMETER TESTER ENGINE [facility] 05-18-2024 21:07-0500 Body weight 24.61 kg/m2 DANIELLA KAPPER SOLE SCRAPER-DYNAMOMETER TESTER ENGINE [facility] 05-18-2024 17:29-0500 Heart rate 54 /min DR ABHIJEET AGUILAR MD [facility] 05-18-2024 15:41-0500 Diastolic Blood Pressure Non-Invasive 68 mm[Hg] DR ABHIJEET AGUILAR MD [address] [place] [id number] 05-18-2024 15:41-0500 Mean blood pressure 85 mm[Hg] DR ABHIJEET AGUILAR MD [address] [place] [id number] 05-18-2024 15:41-0500 Systolic Blood Pressure Non-Invasive 136 mm[Hg] DR ABHIJEET AGUILAR MD [address] [place] [address] 05-18-2024 15:41-0500 Heart rate 59 /min DR ABHIJEET AGUILAR MD [address] [place] [id number] 05-18-2024 15:41-0500 Reason For Taking VItal Signs DR ABHIJEET AGUILAR MD [address] [place] [address] 05-18-2024 15:40-0500 Respiratory rate 18 /min DR ABHIJEET AGUILAR MD [address] [place] [address] 05-18-2024 11:45-0500 Body temperature 97.52 [degF] DR ABHIJEET AGUILAR MD [address] [place] [address] 05-18-2024 11:05-0500 Heart rate 55 /min DR ABHIJEET AGUILAR MD [address] [place] [id number] 05-18-2024 11:05-0500 Blood Pressure Cuff Size DR ABHIJEET AGUILAR MD [address] [place] [address] 05-18-2024 11:05-[address] ABHIJEET AGUILAR MD [address] [place] [address] 05-18-2024 11:05-[address] ABHIJEET AGUILAR MD [address] [place] [address] 05-18-2024 11:05-0500 Diastolic Blood Pressure Non-Invasive 76 mm[Hg] DR ABHIJEET AGUILAR MD [address] [place] [address] 05-18-2024 11:05-0500 Respiratory rate 18 /min DR ABHIJEET AGUILAR MD [address] [place] [address] 05-18-2024 11:05-0500 Systolic Blood Pressure Non-Invasive 158 mm[Hg] DR ABHIJEET AGUILAR MD [address] [place] [address] 05-18-2024 10:50-0500 Diastolic Blood Pressure Non-Invasive 74 mm[Hg] DR ABHIJEET AGUILAR MD [address] [place] [address] 05-18-2024 10:50-0500 Systolic Blood Pressure Non-Invasive 144 mm[Hg] DR ABHIJEET AGUILAR MD [address] [place] [address] 05-18-2024 10:45-0500 Blood Pressure Cuff Size DR ABHIJEET AGUILAR MD [address] [place] [address] 05-18-2024 10:45-[address] ABHIJEET AGUILAR MD [address] [place] [address] 05-18-2024 10:45-[address] ABHIJEET AGUILAR MD [address] [place] [id number] 05-18-2024 10:45-0500 Reason For Taking VItal Signs DR ABHIJEET AGUILAR MD [address] [place] [id number] 05-18-2024 10:45-0500 Respiratory rate 18 /min DR ABHIJEET AGUILAR MD [address] [place] [id number] 05-18-2024 10:23-0500 Body temperature 97.16 [degF] DR ABHIJEET AGUILAR MD [address] [place] [id number] 05-18-2024 10:20-0500 Respiratory Rate - Anes 29 br/min DR ABHIJEET AGUILAR MD [address] [place] [id number] 05-18-2024 10:15-0500 Respiratory Rate - Anes 25 br/min DR ABHIJEET AGUILAR MD [address] [place] [id number] 05-18-2024 10:10-0500 Respiratory Rate - Anes 0 br/min DR ABHIJEET AGUILAR MD [address] [place] [id number] 05-18-2024 08:38-0500 Heart rate 86 /min DR ABHIJEET AGUILAR MD [address] [place] [id number] 05-18-2024 08:29-05[address] Blood Pressure Cuff Size DR ABHIJEET AGUILAR MD [address] [place] [id number] 05-18-2024 08:29-[address] ABHIJEET AGUILAR MD [address] [place] [id number] 05-18-2024 08:29-[address] ABHIJEET AGUILAR MD [address] [place] [id number] 05-18-2024 08:29-0500 Body temperature 97.88 [degF] DR ABHIJEET AGUILAR MD [address] [place] [id number] 05-18-2024 08:29-0500 Reason For Taking VItal Signs DR ABHIJEET AGUILAR MD [address] [place] [id number] 05-18-2024 04:52-0500 Body temperature 97.52 [degF] DR ABHIJEET AGUILAR MD [address] [place] [id number] 05-17-2024 23:02-0500 Mean blood pressure 84 mm[Hg] DR ABHIJEET AGUILAR MD [address] [place] [id number] 05-17-2024 17:22-0500 Heart rate 102 /min DR ABHIJEET AGUILAR MD [address] [place] [id number] 05-17-2024 11:19-0500 Body temperature 97.7 [degF] DR ABHIJEET AGUILAR MD [address] [place] [id number] 05-17-2024 11:00-0500 Body temperature 97.52 [degF] DR ABHIJEET AGUILAR MD [address] [place] [id number] 05-17-2024 09:16-0500 Heart rate 99 /min DR ABHIJEET AGUILAR MD [address] [place] [id number] 05-16-2024 08:02-0500 Mean blood pressure 103 mm[Hg] DR ABHIJEET AGUILAR MD [address] [place] [id number] 05-16-2024 07:39-0500 Heart rate 76 /min DR ABHIJEET AGUILAR MD [address] [place] [id number] 05-16-2024 00:02-0500 Heart rate 69 /min DR ABHIJEET AGUILAR MD [address] [place] [id number] 05-15-2024 16:30-0500 Heart rate 78 /min DR ABHIJEET AGUILAR MD [facility] 05-13-2024 16:44-0500 Body height [address] ABHIJEET AGUILAR MD [facility] 05-13-2024 16:44-0500 Body weight 65.[address] ABHIJEET AGUILAR [facility] [facility] 05-13-2024 16:44-0500 Body weight 25.74 kg/m2 DR ABHIJEET AGUILAR MD [facility] 05-13-2024 15:00-0500 Diastolic Blood Pressure Non-Invasive 69 mm[Hg] DR TERRIE SIMS DO [facility] 05-13-2024 15:00-0500 Heart rate 103 /min DR TERRIE SIMS DO [facility] 05-13-2024 15:00-0500 Mean blood pressure 88 mm[Hg] DR TERRIE SIMS DO [facility] 05-13-2024 15:00-0500 Respiratory rate 26 /min DR TERRIE SIMS DO [facility] 05-13-2024 15:00-0500 Systolic Blood Pressure Non-Invasive 135 mm[Hg] DR TERRIE SIMS DO [facility] 05-13-2024 14:00-0500 Diastolic Blood Pressure Non-Invasive 71 mm[Hg] DR TERRIE SIMS DO [facility] 05-13-2024 14:00-0500 Heart rate 90 /min DR TERRIE SIMS DO [facility] 05-13-2024 14:00-0500 Systolic Blood Pressure Non-Invasive 127 mm[Hg] DR TERRIE SIMS DO [facility] 05-13-2024 13:00-0500 Diastolic Blood Pressure Non-Invasive 112 mm[Hg] DR TERRIE SIMS DO [facility] 05-13-2024 13:00-0500 Heart rate 123 /min DR TERRIE SIMS DO [facility] 05-13-2024 13:00-0500 Respiratory rate 29 /min DR TERRIE SIMS DO [facility] 05-13-2024 13:00-0500 Systolic Blood Pressure Non-Invasive 173 mm[Hg] DR TERRIE SIMS DO [facility] 05-13-2024 12:40-0500 Reason For Taking VItal Signs DR TERRIE SIMS DO [facility] 05-13-2024 12:26-0500 Heart rate 137 /min DR TERRIE SIMS DO [facility] 05-13-2024 12:26-0500 Mean blood pressure 109 mm[Hg] DR TERRIE SIMS DO [facility] 05-13-2024 11:52-0500 Heart rate 131 /min DR TERRIE SIMS DO [facility] 05-13-2024 11:28-0500 Blood Pressure Cuff Size DR TERRIE SIMS DO [facility] 05-13-2024 11:28-[address] TERRIE SIMS DO [facility] 05-13-2024 11:28-[address] TERRIE SIMS DO [facility] 05-13-2024 11:28-0500 Body temperature 98.24 [degF] DR TERRIE SIMS DO [facility] 05-13-2024 11:28-0500 Body weight 64.[address] TERRIE SIMS DO [facility] 05-13-2024 11:28-0500 Heart rate 130 /min DR TERRIE SIMS DO [facility] 02-17-2021 17:50-0500 Body height 160 cm JODY GIRALDO MD [facility] 02-17-2021 17:50-0500 Body temperature 98.24 [degF] JODY GIRALDO MD [facility] 02-17-2021 17:50-0500 Body weight 63.6 kg JODY GIRALDO MD [facility] 02-17-2021 17:50-0500 Diastolic blood pressure 75 mm[Hg] JODY GIRALDO MD [facility] 02-17-2021 17:50-0500 Heart rate 78 /min JODY GIRALDO MD [facility] 02-17-2021 17:50-0500 Mean blood pressure 101 mm[Hg] JODY GIRALDO MD [facility] 02-17-2021 17:50-0500 Respiratory rate 16 /min JODY GIRALDO MD [facility] 02-17-2021 17:50-0500 Systolic blood pressure 154 mm[Hg] JODY GIRALDO MD [facility] Encounters Encounter Date Encounter Type Care Provider Facility Start: 02-19-2025 End: 02-19-2025 ambulatory VICTOR MANUEL PETERSON MD Facility:A Start: 02-19-2025 End: 02-19-2025 SAME DAY STAY VICTOR MANUEL PETERSON MD [facility] Start: 02-15-2025 End: 02-15-2025 ambulatory ASIM FISH SOLE SCRAPER-DYNAMOMETER TESTER ENGINE Facility:[facility] Start: 02-15-2025 End: 02-15-2025 Patient encounter procedure ASIM FISH SOLE SCRAPER-DYNAMOMETER TESTER ENGINE [facility] Start: 02-11-2025 End: 02-11-2025 ambulatory DONATO E NAVARRETE DO Facility:[facility] Start: 02-11-2025 End: 02-11-2025 SAME DAY STAY DONATO E NAVARRETE DO [facility] Start: 01-11-2025 End: 01-11-2025 ambulatory DONATO E NAVARRETE DO Facility:[facility] Start: 01-11-2025 End: 01-11-2025 Patient encounter procedure DONATO E NAVARRETE DO [facility] Start: 01-08-2025 End: 01-08-2025 ambulatory ASIM FISH SOLE SCRAPER-DYNAMOMETER TESTER ENGINE Facility:[facility] Start: 01-08-2025 End: 01-08-2025 Patient encounter procedure ASIM FISH SOLE SCRAPER-DYNAMOMETER TESTER ENGINE [facility] Start: 01-01-2025 End: 01-01-2025 ambulatory ASIM FISH SOLE SCRAPER-DYNAMOMETER TESTER ENGINE Facility:[facility] Start: 01-01-2025 End: 01-01-2025 Patient encounter procedure ASIM DIEHL SOLE SCRAPER-DYNAMOMETER TESTER ENGINE [facility] Start: 09-12-2024 End: 09-16-2024 ambulatory DONATO NAVARRETE DO Facility:[facility] Start: 09-12-2024 End: 09-16-2024 Encounter for general adult medical examination without abnormal findings DONATO NAVARRETE DO Facility:[facility] Start: 09-12-2024 End: 09-16-2024 Outreach Lab DONATO NAVARRETE DO [facility] Start: 08-27-2024 End: 09-01-2024 Evaluation and management of inpatient HARRY BAILON MD Facility:A Start: 08-21-2024 End: 08-21-2024 ambulatory EMILIANO ELVIS DO Facility:[facility] Start: 08-21-2024 End: 08-21-2024 Patient encounter procedure ASIM DIEHL SOLE SCRAPER-DYNAMOMETER TESTER ENGINE [facility] Start: 08-08-2024 End: 08-09-2024 ambulatory EMILIANO ELVIS DO Facility:A Start: 08-08-2024 End: 08-09-2024 Observation HARRY BAILON MD [facility] Start: 07-27-2024 End: 07-27-2024 Admission to establishment HARRY BAILON MD [facility] Start: 07-27-2024 End: 07-27-2024 ambulatory [facility] Facility:A Start: 07-27-2024 Encounter for other preprocedural examination HARRY BAILON MD [facility] Start: 07-19-2024 End: 07-19-2024 ambulatory [facility] Facility:[facility] Start: 07-05-2024 End: 07-05-2024 Emergency department patient visit [facility] Facility:[facility] Start: 06-28-2024 End: 07-01-2024 Evaluation and management of inpatient DR MONIKA AGUSTIN MD [facility] Start: 06-28-2024 End: 06-28-2024 Emergency department patient visit DR MONIKA AGUSTIN MD Facility:[facility] Start: 06-26-2024 End: 06-26-2024 amb[facility] Start: 06-19-2024 End: 06-19-2024 ambulatory [facility] Facility:A Start: 06-19-2024 End: 06-19-2024 SAME DAY STAY ANASTASIYA Tobias RANDEE SOLE SCRAPER-DYNAMOMETER TESTER ENGINE [facility] Start: 05-23-2024 End: 05-29-2024 Evaluation and management of inpatient DANIELLA HERNANDEZ SOLE SCRAPER-DYNAMOMETER TESTER ENGINE [facility] Start: 05-20-2024 End: 05-23-2024 Evaluation and management of inpatient RHINA FALCON SOLE SCRAPER-DYNAMOMETER TESTER ENGINE [facility] Start: 05-18-2024 End: 05-20-2024 Evaluation and management of inpatient DANIELLA HERNANDEZ SOLE SCRAPER-DYNAMOMETER TESTER ENGINE [facility] Start: 05-13-2024 End: 05-18-2024 Evaluation and management of inpatient DR ABHIJEET AGUILAR MD [facility] Start: 05-13-2024 End: 05-13-2024 Emergency department patient visit DR TERRIE SIMS DO [facility] Start: 04-13-2024 End: 04-13-2024 ambulatory [facility] Facility[facility] Start: 04-13-2024 End: 04-13-2024 Patient encounter procedure EMILIANO LEAL DO [facility] Start: 03-12-2024 End: 03-12-2024 ambulatory EMILIANO LEAL DO Facility:[facility] Start: 03-12-2024 End: 03-12-2024 Patient encounter procedure EMILIANO LEAL DO [facility] Start: 11-14-2023 ambulatory KEILY Madi JOYCE JORGE DO Facility:[facility] Start: 08-09-2023 End: 08-09-[address] MAXIMINO LIM DO Facility:[facility] Start: 07-12-2022 End: 07-12-2022 Patient encounter procedure TANIA HERNANDEZ MD [facility] Start: 07-08-2022 End: 07-08-2022 Patient encounter procedure TANIA HERNANDEZ MD [facility] Start: 05-26-2022 End: 05-26-2022 Patient encounter procedure TANIA HERNANDEZ MD [facility] Start: 03-11-2022 End: 03-11-2022 Patient encounter procedure EMILIANO LEAL DO [facility] Start: 10-27-2021 End: 12-03-2021 Physical therapy management EMILIANO LEAL DO [facility] Start: 10-21-2021 End: 10-21-2021 Patient encounter procedure EMILIANO LEAL DO [facility] Start: 04-17-2021 End: 04-17-2021 Patient encounter procedure EMILIANO LEAL DO [facility] Start: 02-17-2021 End: 02-17-2021 Emergency department patient visit JODY GIRALDO MD [facility] Procedures Date Procedure Procedure Detail Performing Clinician Start: 08-30-2024 Cardiovascular stress testing ASIM DIEHL SOLE SCRAPER-DYNAMOMETER TESTER ENGINE Comment on above: * Final Report * [...] Start: 08-08-2024 Destructive procedure R SUDHIR DIEHL SOLE SCRAPER-DYNAMOMETER TESTER ENGINE Start: 06-29-2024 Cardioversion HARRY Barraza MD Comment [...] Immunizations Immunization Date Immunization Notes Care Provider [facility] 01-16-2025 influenza, high dose seasonal, preservative-free; Translations: [Fluzone High-Dose PF Prefilled Syringe ] DONATO NAVARRETE DO [facility] 02-23-2024 influenza, high dose seasonal, preservative-free; Translations: [Fluad PF Prefilled Syringe ] EMILIANO LEAL DO [facility] 02-21-2023 influenza virus vacc ine, unspecified formulation DR TERRIE SIMS DO [facility] 02-12-2022 influenza virus vacc ine, unspecified formulation DR TERRIE SIMS DO [facility] 02-12-2021 influenza virus vacc ine, unspecified formulation DR TERRIE SIMS DO [facility] 02-12-2021 SARS-CoV-2 (COVID-19 ) mRNA-[address] TERRIE SIMS DO [facility] 08-19-[address] TERRIE SIMS DO [facility] 07-26-2020 SARS-CoV-2 (COVID-19 ) mRNA-[address] TERRIE SIMS DO [facility] 06-28-2020 SARS-CoV-2 (COVID-19 ) mRNA-[address] TERRIE SIMS DO [facility] 04-18-[address] TERRIE SIMS DO [facility] 02-03-2020 influenza virus vacc ine, unspecified formulation DR TERRIE SIMS DO [facility] 03-09-2019 influenza virus vacc ine, unspecified formulation DR TERRIE SIMS DO [facility] 03-09-2019 pneumococcal conjuga te vaccine, [address] TERRIE SIMS DO [facility] 01-10-2018 influenza virus vacc ine, unspecified formulation DR TERRIE SIMS DO [facility] 08-14-2014 tetanus toxoid, redu balaji diphtheria toxoid, and acellular pertussis vaccine, adsorbed JODY GIRALDO MD [facility] 08-14-2014 diphtheria, tetanus toxoids and acellular pertussis vaccine, unspecified formulation JODY GIRALDO MD [facility] 03-11-2013 influenza virus vacc ine, unspecified formulation DR TERRIE SIMS DO [facility] 04-11-2002 pneumococcal polysaccharide vaccine, 23 valent JODY GIRALDO MD [facility] 03-10-2002 pneumococcal polysaccharide vaccine, [address] TERRIE SIMS DO [facility] Payers Date Payer Category Payer Private Health Insurance 27e [id number] 2024 Medicare [id number] 2024 Medicare [id number] 2023 Medicare [id number] 2018 Unknown [id number] 1942 Unknown [id number] 2.16.8 40.1.563989.3.579.2. 1942 Unknown [id number] 2.16.8 40.1.349166.3.579.2 1942 Unknown [id number] 2.16. 840.1.469888.3.579.2 1942 Unknown [id number] 2.16. 840.1.325230.3.579.2 1942 Unknown [id number] 2.16. 840.1.957055.3.579.2. 1942 Unknown [id number] 2.16. 840.1.850298.3.579.2. 1942 Unknown [id number] 2.16. 840.1.190429.3.579.2 1942 Unknown [id number] 2.16. 840.1.155406.3.579.2. 1942 Unknown [id number] 2.16.8 40.1.364706.3.579.2.627 1942 Unknown [id number] 2.16.8 40.1.971391.3.579.2.627 1942 Unknown [id number] 2.16.8 40.1.810526.3.579.2.627 1942 Unknown [id number] 2.16.8 40.1.887203.3.579.2.62 1942 Unknown [id number] 2.16.8 40.1.113456.3.579.2.627 1942 Unknown [id number] 2.16.8 40.1.361068.3.579.2.62 1942 Unknown [id number] 2.16.8 40.1.305938.3.579.2. 1942 Unknown [id number] 2.16.8 40.1.082923.3.579.2. 1942 Unknown [id number] 2.16.8 40.1.878241.3.579.2. 1942 Unknown [id number] 2.16.8 40.1.269687.3.579.2. 1942 Unknown [id number] 2.16.8 40.1.563377.3.579.2.62 1942 Unknown [id number] 2.16. 840.1.669063.3.579.2.62 1942 Unknown [id number] 2.16.8 40.1.867904.3.579.2.62 1942 Unknown [id number] 2.16.8 40.1.221715.3.579.2.62 1942 Unknown [id number] 2.16.8 40.1.757283.3.579.2.627 1942 Unknown [id number] 2.16.8 40.1.665230.3.579.2.627 1942 Unknown [id number] 2.16.8 40.1.396445.3.579.2.627 1942 Unknown [id number] 2.16.8 40.1.804596.3.579.2.627 Social History Date Type Detail Facility Start: 12-04-2018 End: 09-01-2023 Heavy tobacco smoker (finding) [facility] Sex Assigned At Female [facility] Start: 06-06-2019 Sex Female (finding) [facility] Start: 06-11-2024 End: 07-27-2024 Tobacco smoking status Ex-smoker (finding) [facility] Start: 02-19-2025 Not applicable (qualifier value) [facility] Functional Status Date Assessment Result Facility 02-19-2025 Functional Status Awake, Up ad candice [facility] 02-19-2025 Functional Status [facility] 02-19-2025 Functional Status Maintained [facility] 08-09-2024 Functional Status Independent [facility] 08-09-2024 Functional Status Supervision [facility] 08-09-2024 Functional Status Room located n ear nursing station, Door open, Bathroom light on, Non-Slip footwear, Room check performed [facility] 08-09-2024 Functional Status [facility] 08-09-2024 Functional Status [facility] 08-08-2024 Functional Status [facility] 08-08-2024 Functional Status [facility] 08-08-2024 Functional Status Patient Identi fied Identification band, Verbal [facility] 08-08-2024 Functional Status Maintained [facility] 07-27-2024 Functional Status Sensory Deficits None A [facility] 07-01-2024 Functional Status Door open, Non-Slip footwear, toileting refused, Room check performed [facility] 07-01-2024 Functional Status [facility] 07-01-2024 Functional Status Done [facility] 07-01-2024 Functional Status [facility] 07-01-2024 Functional Status Sequential Com pression Device bilateral knee high removed/off [facility] 06-30-2024 Functional Status 11am-11pm [facility] 06-30-2024 Functional Status Returned to bed [facility] 06-30-2024 Functional Status [facility] 06-30-2024 Functional Status [facility] 06-30-2024 Functional Status Morning Snack Percent 1 00 [facility] 06-29-2024 Functional Status [facility] 06-29-2024 Functional Status [facility] 06-29-2024 Functional Status Patient Identi fied Identification band, Verbal [facility] 06-29-2024 Functional Status Done [facility] 06-29-2024 Functional Status [facility] 06-28-2024 Functional Status [facility] 06-28-2024 Functional Status Single level home [facility] 06-28-2024 Functional Status Celeste [facility] 06-28-2024 Functional Status [facility] 06-19-2024 Functional Status Awake [facility] 06-19-2024 Functional Status Repositions self [facility] 06-19-2024 Functional Status Maintained [facility] 05-29-2024 Functional Status Non-Slip footw ear, Room check performed [facility] 05-29-2024 Functional Status Celeste Bolton [facility] 05-29-2024 Functional Status Celeste Bolton [facility] 05-28-2024 Functional Status Celeste Bolton [facility] 05-28-2024 Functional Status Independent Celeste Bolton [facility] 05-28-2024 Functional Status Celeste Bolton [facility] 05-27-2024 Functional Status Celeste Bolton [facility] 05-27-2024 Functional Status Celeste Bolton [facility] 05-27-2024 Functional Status Celeste [facility] 05-27-2024 Functional Status Celeste costello [facility] 05-27-2024 Functional Status Celeste costello [facility] 05-27-2024 Functional Status Celeste costello [facility] 05-26-2024 Functional Status Celeste Bolton [facility] 05-26-2024 Functional Status Ambulation Dev ice Utilized Other: Rollator [facility] 05-25-2024 Functional Status Celeste Bolton [facility] 05-25-2024 Functional Status Celeste Bolton [facility] 05-24-2024 Functional Status Celeste Bolton [facility] 05-23-2024 Functional Status Single level h ome, 1st floor bedroom, 1st floor bathroom, basement tnundry [facility] 05-23-2024 Functional Status None Celeste Bolton [facility] 05-23-2024 Functional Status 85 Celeste Bolton [facility] 05-23-2024 Functional Status Door open, Non-Slip footwear [facility] 05-23-2024 Functional Status Celeste Bolton [facility] 05-23-2024 Functional Status Celeste Bolton [facility] 05-22-2024 Functional Status 7am-7pm Celeste Bolton [facility] 05-22-2024 Functional Status Front wheeled walker [facility] 05-22-2024 Functional Status Supervised Celeste Bolton [facility] 05-22-2024 Functional Status bilateral knee high rem mary/off [facility] 05-22-2024 Functional Status Celeste Bolton [facility] 05-21-2024 Functional Status Celeste Bolton [facility] 05-21-2024 Functional Status Celeste Bolton [facility] 05-21-2024 Functional Status Done Celeste Bolton [facility] 05-20-2024 Functional Status low air loss bed [facility] 05-20-2024 Functional Status Dinner Percent 60 [facility] 05-20-2024 Functional Status Up to Chair Si tting on edge of bed [facility] 05-20-2024 Functional Status Single level home [facility] 05-20-2024 Functional Status Lunch Percent 80 [facility] 05-20-2024 Functional Status Celeste Bolton [facility] 05-20-2024 Functional Status Celeste Bolton [facility] 05-20-2024 Functional Status Celeste Bolton [facility] 05-20-2024 Functional Status Celeste Bolton [facility] 05-20-2024 Functional Status Standard Safet y ID band on, Call device within reach, Bed in low position, Wheels locked, Upper/Half-Length side-rails up, Safety level maintained [facility] 05-19-2024 Functional Status Room check performed [facility] 05-19-2024 Functional Status Celeste Bolton [facility] 05-19-2024 Functional Status Celeste Bolton [facility] 05-19-2024 Functional Status Single level home [facility] 05-19-2024 Functional Status Supervised Celeste Bolton [facility] 05-19-2024 Functional Status Celeste Bolton [facility] 05-19-2024 Functional Status Celeste Bolton [facility] 05-18-2024 Functional Status None Celeste Bolton [facility] 05-18-2024 Functional Status Door open, Room check performed [facility] 05-18-2024 Functional Status [facility] 05-18-2024 Functional Status [facility] 05-18-2024 Functional Status [facility] 05-18-2024 Functional Status [facility] 05-17-2024 Functional Status [facility] 05-17-2024 Functional Status Skin Care Prod uct Applied Skin moisturizer [facility] 05-17-2024 [facility]-16[facility] Functional Status Dinner Percent 80 [facility] 05-16-2024 Functional Status Ambulation Encouraged/reinforced importance of ambulation [facility] 05-15-2024 Functional Status [facility] 05-14-2024 Functional Status Single level home [facility] 05-13-2024 Functional [facility] 05-13-2024 Functional Status heel(s)s eleva kamran, padded oxygen tubing [facility] 05-13-2024 Functional Status Standard Safet y ID band on, Call device within reach, Bed in low position, Wheels locked, Bedside Cart Locked, Visitor at bedside, Safety level maintained [facility] 05-13-2024 Functional Status Awake [facility] Mental Status Date Assessment Result Facility 02-19-2025 Mental Status Orientation Oriented x 4 [facility] 02-19-2025 Mental Status [facility] 02-19-2025 Mental Status [facility] 08-09-2024 Mental Status Orientation Oriented x 4 [facility] 08-09-2024 Mental Status [facility] 08-08-2024 Mental Status [facility] 07-01-2024 Mental Status Oriented x 4 [facility] 07-01-2024 Mental Status [facility] 07-01-2024 Mental Status [facility] 06-30-2024 Mental Status [facility] 06-19-2024 [facility] 05-29-2024 [facility] Status [facility] 05-28-2024 Mental Status [facility] 05-28-2024 Mental Status [facility] 05-23-2024 Mental Status Oriented x 4 [facility] 05-22-2024 Mental Status [facility] 05-22-2024 Mental Status [facility] 05-19-2024 Mental Status Oriented x 4 [facility] 05-19-2024 Mental Status [facility] 05-19-2024 Mental Status [facility] 05-18-2024 Mental Status [facility] 05-18-2024 Mental Status Orientation Oriented x 4 [facility] 05-18-2024 Mental Status [facility] 05-18-2024 Mental Status [facility] 05-13-2024 Mental Status Orientation Oriented x 4 [facility] 05-13-2024 Mental Status [facility] 05-13-2024 Mental Status [facility] Clinical Notes 02-17-2021 to 02-19-2025 Note [...] until you are awake and alert. Take [id number] and prescription medicines only as told by [...] 01/16/2014 Document Revised: 03/10/2018 Document Reviewed: 07/17/2016 [employer] Patient Education 2020 [employer]. 02/19/2025 11:46:54 3- Heart Cath/PCI radial (01/2018)(CUSTOM) [...] Document Reviewed: 03/29/2014 [employer] Patient Information 2015 [employer]. This information is not intended to replace advice given to you by your health care provider. Make sure you discuss any questions you have with your health care provider. Follow Up Care 02/06/2025 11:31:21 With:VICTOR MANUEL PETERSON MD Address: [address] [place] [address]- [phone] When:03/21/2025 15:00:00 Comments:THIS APPOINTMENT WILL BE WITH CARLOS DIEHL CNP [facility] 02-19-2025 Summary of episod e note Discharge Instructions Thank you for allowing [facility] to assist you with your healthcare needs. The following is important discharge information regarding your hospital visit. Your Care Team DONATO NAVARRETE DO What to do next Scheduled Follow-Up Appointments Appointment Type When With Where Contact Information StatusCV OV 03/21/2025 03:00 PM EST ASIM DIEHL APRN-JOI [facility] Confirmed CV OV 12/19/2025 03:30 PM EDT MEREDITH BAILON [facility] Confirmed Follow Up Appointments Follow Up with VICTOR MANUEL PETERSON MD When:03/21/2025 03:00 PM EST Where:[address] [place] [address]- [phone] Additional Information: THIS APPOINTMENT WILL BE WITH [...] Duration: 90 Days Refills: 3 Pickup at [facility] Unchanged apixaban (Eliquis 5 mg oral tablet) [...] tab(s) by mouth Every day Pharmacy Information [facility]: [address] [place] [address] [phone] Please take this list to your next [...] until you are awake and alert. Take bicj-wnd-ilyqjzy and prescription medicines only as told by [...] 01/16/2014 Document Revised: 03/10/2018 Document Reviewed: 07/17/2016 [employer] Patient Education 2020 [employer] HEART CATHETERIZATION/PCI (radial) Discharge Instructions DIET [...] Document Reviewed: 03/29/2014 ExitCare Patient Information 2015 [employer]. This information is not intended to replace advice given to you by your health care provider. Make sure you discuss any questions you have with your health care provider. Additional Information VACCINATE! IT SAVES LIVES! Members of the community who have not yet received the COVID-19 vaccine and would like to receive it can visit one of [facility] vaccine clinics. There are many vaccine clinic locations within the [facility]. For locations and available times, please visit [email or web address] It is important to note that some COVID mobile vaccine clinics are held outdoors and may be canceled in rainy or stormy conditions. To learn more about pediatric vaccinations (ages 5-11), we invite you to visit the [facility] webpage. [email or web address]://[email or web address]/p [email or web address]-[email or web address]-[email or web address]-[email or web address] [email or web address]-[email or web address].html To learn more about the COVID-19 vaccine, we invite you to visit the CDC website for a list of frequently asked questions.https://www.cdc.gov/co ronavirus/2019-ncov/vaccines/faq .html [facility] Patient Portal Access Instructions: Stay connected with your healthcare team and access your personal medical information anytime with the [facility] Patient Portal. Please follow the directions below to create your [facility] account: 1.Access the email account you provided upon registration to the hospital/physician office.2.Look for an invitation email from [facility].3.Open the email and access the invitation link: Accept Invitation to [facility].4.Fill in the required tripp to create your account. To access your account, visit [email or web address] or scan the Online Agility code above. Click the blue button labeled [...] you will allow to register on the [facility] Patient Portal for access to your information. You can also access the [facility] Patient Portal on the [employer] Anywhere duke. Simply click on Patient Portal and then log into your account. If you would like to receive a full copy of your medical records, please contact the [facility] Medical Records Department by calling [phone], Tuesday through Tuesday between 8 a.m. and [...] Call your local pharmacy or go to [email or web address] to find one close to you.3.Make use of household items: Use cat litter or old coffee grounds to dispose medications if other options are not available. Mix your drugs with these household products, seal them in an airtight container and throw it into the garbage. Call [facility]: [phone] to be sure your drugs can be [...] aware that I should contact my doctor. Patient/Fund Raiser Signature: Date/Time: Relationship to Patient: Witness Name/Signature: Date/Time: [facility] 02-19-2025 Discharge summary Date of Service [...] PM EST Where:[address] [facility] [place] [address]- [phone] Additional Information: THIS APPOINTMENT WILL BE WITH [...] MANUEL PETERSON MD on 02/19/2025 03:48 PM [facility] 02-11-2025 Nurse Progress note patient tolerated prolia injection without signs or symptoms of a reaction Digitally Signed by Marcelle Davidson RN on 02/11/2025 01:35 PM [facility] 01-08-2025 Note Exam Date Time Procedure Performing Provider Status 01/08/25 1:14 PM Echocardiogram, Adult - CV MONIKA AGUSTIN MD; Auth (Verified) [facility]09-23-2025 Note* Exam Date Time Procedure Performing Provider Status 01/01/25 10:56 AM XR Chest 2 Views SHANNAN CELIS MD; [facility] (Verified) [id number] ORIGINAL EXAMINATION: TWO XRAY VIEWS OF THE [...] 01/01/2025 3:15:11 PM Ordering Provider: ASIM DIEHL [facility]05-01-2025 Hospital Discharge instructions Patient Education 08/09/2024 08:14:32 [...] need to report the following to your cloth spreader: Any draining or oozing from the site [...] Document Reviewed: 03/29/2014 ExitCare Patient Information 2014 [employer]. This information is not intended to replace advicegiven to you by your health care provider. Make sure you discuss any questions you have with your health care provider. Follow Up Care 07/13/2024 14:36:08 With:ASIM DIEHL SOLE SCRAPER-DYNAMOMETER TESTER ENGINE Address: [address] [place] [address]- [phone] When:09/19/2024 15:00:00 With:HARRY BAILON MD Address: [address] [place] [address] When:11/12/2024 15:00:00 Comments:THIS APPOINTMENT WILL BE WITH ANASTASIYA JEFF CNP [facility] 05-01-2025 Summary of episode note Discharge Instructions Thank you for allowing [facility] to assist you with your healthcare needs. The following is importantdischarge information regarding your hospital visit. Your Care Team EMILIANO LEAL DO Your Diagnosis HFrEF (heart failure with reduced ejection fraction) Wheezing What to do next Scheduled Follow-Up Appointments Appointment Type When With Where Contact Information StatusCV OV 09/19/2024 03:00 PM EDT ASIM DIEHL [facility] Confirmed CV OV 11/12/2024 03:00 PM EDT ANASTASIYA JEFF [facility] Confirmed Follow Up Appointments Follow Up with ASIM DIEHL When:09/19/2024 03:00 PM EDT Where:[address] [place] [address]- [phone] Follow Up with HARRY BAILON MD When:11/12/2024 03:00 PM EDT Where:[address] [place] [address]- [phone] Additional Information: THIS APPOINTMENT WILL BE WITH [...] need to report the following to your cloth spreader: Any draining or oozing from the site [...] Document Reviewed: 03/29/2014 ExitCare Patient Information 2015 [facility], [facility]. This information is not intended to replace advicegiven to you by your health care provider. Make sure you discuss any questions you have with your health care provider. Additional Information VACCINATE! IT SAVES LIVES! Members of the community who have not yet received the COVID-19 vaccine and would like to receive it can visit one of [facility] vaccine clinics. There are many vaccine clinic locations within the [facility]. For locations and available times, please visit [email or web address] It is important to note that some COVID mobile vaccine clinics are held outdoors and may be canceled in rainy or stormy conditions. To learn more about pediatric vaccinations (ages 5-11), we invite you to visit the [facility] webpage. https://www.[email or web address].org/pages/1143-Qfkhv-Uuqwqwzklqn-Asfertrhah-Whbpj-Qas stions.htmlTo learn more about the COVID-19 vaccine, we invite you to visit the CDC website for a list of frequently asked questions.https://www.cdc.gov/coronavirus/2019-ncov/vaccines/faq.html [facility] Patient Portal Access Instructions: Stay connected with your healthcare team and access your personal medical information anytime with the [facility] Patient Portal. Please follow the directions below to create your [facility] account: 1.Access the email account you provided upon registration to the hospital/physician office.2.Look for an invitation email from [facility].3.Open the email and access the invitation link: AcceptInvitation to [facility].4.Fill in the required tripp to create your account. To access your account, visit [employer]/CastleOSt. Click the blue button labeled Access Patient Portal and then log in with the username and password that you created in the steps above. You will be able to view your test results, lab results, a summary of your visits, upcoming appointments and more. There is also a convenient messaging option where you can send secure messages to your TaKaDuvider. In addition, you will have the ability to download any documents or summaries to your computer and/or send the information securely to a physician. Remember that your healthcare information is confidential, so carefully consider who you will allowto register on the [facility] Patient Portal for access to your information. You can also access the [facility] Patient Portal on the [facility] duke. Simply click on Patient Portal and then log into your account. If you would like to receive a full copy of your medical records, please contact the [facility] Medical Records Department by calling [phone], Tuesday through Tuesday between 8 a.m. and [...] Call your local pharmacy or go to [email or web address] to find one close to you.3.Make use of household items: Use cat litter or old coffee grounds to dispose medications if other options arenot available. Mix your drugs with these household products, seal them in an airtight container andthrow it into the garbage. Call [facility]: [phone] to be sure your drugs can be [...] aware that I should contact my doctor. Patient/Fund Raiser Signature: Date/Time: Relationship to Patient: Witness Name/Signature: Date/Time: [facility] Center[facility]c75-24-7138 Note* Exam Date Time Procedure Performing Provider Status 08/09/24 3:42 AM Electrocardiogram - EKG - CV NIKOLASP LISA PARISH MD; Auth (Verified) ECG Final Report SINUS RHYTHM BORDERLINE PROLONGED QT INTERVAL Electronic Signature: LISA BOSS MD 08/09/2024 07:44:04 [facility] CenterNoyejbhn48-12-9161 Anesthesiology Consult note Patient: JED SEWELL Age: [...] ARTURO POE MD on 08/08/2024 02:10 PM [facility] CenterVssifrmc00-10-2893 Note* Exam Date Time Procedure Performing Provider Status 08/08/24 12:00 PM Ablation CV HARRY BAILON MD; Auth (Ve rified) [facility] CenterJsxlutkb98-54-8527 Anesthesiology Consult note Patient: JED SEWELL Age: [...] failure, stage 3 (moderate) / SNOMED CT 324338798 / Confirmed COPD - Chronic obstructive pulmonary disease / SNOMED CT 433811192 / Confirmed HFrEF (heart failure with reduced ejection fraction) / SNOMED CT 5930843765 / Confirmed HTN (hypertension) / SNOMED CT [id number] / Confirmed Osteoporosis / SNOMED CT 183127701 / Confirmed Persistent atrial fibrillation / SNOMED CT 3495064640 / Confirmed Serum calcium elevated / SNOMED CT 241796475 / Confirmed Wheezing / SNOMED CT 56405668 / Confirmed Resolved: Acute bronchitis due to infection / SNOMED CT 836271025 Resolved: DDD (degenerative disc disease), lumbar / SNOMED CT 92820571 Resolved: Microalbuminuria / SNOMED CT 229349183 Resolved: Neck pain on right side / SNOMED CT 461042650 Resolved: Proteinuria of undiagnosed cause / SNOMED CT 122632959 Resolved: Sciatica / SNOMED CT 74983715 Canceled: Atrial fibrillation / SNOMED CT 23026468 Canceled: Atrial fibrillation, rapid / SNOMED CT 121371545 Canceled: H/O osteoporosis / SNOMED CT 828154301 Canceled: Hypercalcemia / SNOMED CT 460186089 Canceled: Immunization due / SNOMED CT 910723623, Active Problems (17) Chronic renal failure, stage 3 (moderate) Constipation COPD - Chronic obstructive pulmonary disease BENNETT (dyspnea on exertion) Glasses Hard of hearing HFrEF (heart failure with reduced ejection fraction) HTN (hypertension) Hyperparathyroidism ME (myocardial infarction) Mitral regurgitation Osteoporosis Persistent atrial fibrillation Presence of dental prosthetic device Seasonal allergy Serum calcium elevated Wheezing Histories Past Medical History: Active HTN (hypertension) ([id number]) Resolved Sciatica (27303048): Resolved. Microalbuminuria (570541514): Resolved. DDD (degenerative disc disease), lumbar (37209218): Resolved. Neck pain on right side (471898523): Resolved. Proteinuria of undiagnosed cause (876217379): Resolved. Acute bronchitis due to infection (271367674): Resolved. Family History: Respiratory disease Father Sister Brother COPD Mother Colon cancer Sister Procedure history: Cardioversion ([id number]) on 06/29/2024 at 83 Years. Comments: 07/12/2024 15:37 Noemi Perez LPN Successful Echocardiogram ([id number]) on 05/16/2024 at 83 Years. Comments: 07/12/2024 [...] mm Hg. Colonoscopy and biopsy of colon (4701108067) on 11/02/2019 at 78 Years. Colonoscopy (087453342) on 04/11/2011 at 70 Years. Ovarian cyst ([id number]). Appendectomy (772681437). Cholecystectomy (68322846). Abdominal hysterectomy (464420627). Cataract extraction and IOL (implantation of intraocular lens) (5603552911). Comments: 07/27/2024 12:49 EDT - [facility] [place] bilateral Dilation of urethral meatus (9017052451). Social History: Social & Psychosocial Habits Alcohol [...] Charted Temp Oral36.3 DegC (AUG 08 07:53) NYU358 mmHg (AUG 08 07:53) DBP72 mmHg (AUG 08 07:53) Measurements from flowsheet : Measurements 08/08/2024 7:53 EDT Height 157.5 cm Height in inches 62 inch(es) Admission Weight 65.9 kg Weight Lbs 145 lb Weight Method Actual [place] Body Weight 50.12 kg Type of Scale Used Standing Admission Body Mass Index 26.57 m2 08/07/2024 14:48 EDT Height 157.5 cm Height in inches 62 inch(es) Admission Weight 66.2 kg Weight Lbs 145.6 lb Weight Method Actual [place] Body Weight 50.12 kg BSA Admission 1.67 [...] #1 We May Share PHI Natalie elizabeth- [phone] Designated Person #1 Relationship Daughter Designated Person #2 We May Share PHI Kayode [phone] Designated Person #2 Relationship Family member Privacy Restrictions Requested None Height 157.5 cm Height in inches 62 inch(es) Admission Weight 65.9 kg Weight Lbs 145 lb Weight Method Actual [place] Body Weight 50.12 kg Type of Scale [...] No Advanced Directives Yes Advance Directive Type [place] Durable Power of Bite Block Maker for [place], [place] Declaration (Living Will) Advance Directive Location [...] evident Teaching Method Explanation Preferred Spoken Language Omani Preferred Written Language Omani Teaching Evaluation Verbalizes/Nonverbally indicates understanding General Infection [...] Weight Lbs 145.6 lb Weight Method Actual [place] Body Weight 50.12 kg BSA Admission 1.67 Body Mass Index 26.69 kg/m2 Peripheral Pulse Rate 95 bpm Systolic Blood Pressure Non-Invasive 140 mmHg Diastolic Blood Pressure Non-Invasive 70 mmHg Blood Pressure Method Manual Blood Pressure Location Left arm Blood Pressure Cuff Size Large Oxygen Saturation 97 % Advanced Directives Yes Advance Directive Type [facility] Power of Bite Block Maker for [place], [place] Declaration (Living Will) Advance Directive Location Indicates that [facility] has been given workforce staffing advisor Complaint 4 to 6 week F/U Post Hospital Dx a-fib and CHF. C/O O2 at 1 liter prn C/) SOB Comprehensive Intake-Specialty OfficeAMB Ambulatory Comprehensive Intake - Specialty Office Preferred Lab [facility] facility Preferred Rad [facility] 08/07/2024 14:45 EDT Cardiology Office Note Office Visit Note History of Present Illness Documentation History of Present Illness Documentation Impression and Plan Documentation Impression and Plan Documentation Review of Systems Documentation Review of Systems Documentation Physical Examination Documentation Physical Examination Documentation . Assessment and Plan [employer] Society of Anesthesiologists (ASA) physical status classification: [...] ARTURO POE MD on 08/08/2024 11:21 AM [facility] CenterFppvghob39-02-8385 Note* Exam Date Time Procedure Performing Provider Status 08/08/24 8:26 AM Electrocardiogram - EKG - CV NIKOLASP LISA PARISH MD; Auth (Verified) ECG Final Report ATRIAL FIBRILLATION BORDERLINE PROLONGED QT INTERVAL Electronic Signature: LISA BOSS MD 08/09/2024 07:43:54 [facility] CenterXoazgflc58-53-6383 History and physical note Date of Service August 03, 2024 Primary EP: Dr. Bailon History and Physical Update I have examined the patient; reviewed the History and Physical and there are no changes to the History and Physical unless noted below. Digitally Signed by ANASTASIYA JEFF APRN-DYNAMOMETER TESTER ENGINE on 08/03/2024 03:40 PM [facility] CenterOxtjtppp42-40-0993 Discharge summary Date of Service 07/01/2024 Discharge Diagnosis Atrial Fibrillation Acute on Chronic HFrEF Hospital Course 83-year-old female with history of recently diagnosed atrial fibrillation (status post cardioversion on June 19), recently diagnosed HFmrEF, hypertension, osteoporosis Transferred from [place] for acute on chronic HFmrEF in the [...] up with your Primary Care Physician and Cambering Machine Operator as recommended. _ 2. Some of your medications may have changed during this hospital stay. Please go over these changes with your nurse before you leave the hospital. _ 3. Take all your medications as prescribed. If you have any queries, please reach out to our [facility] office at [phone] for general queries and [phone] for medication refills. 4. All your medical records and results are available to you through our [employer] Patient Portal. Tosign up, please visit [email or web address] [email or web address] New Prescription amLODIPine (amLODIPine 5 mg [...] Up Follow Up with EMILIANO LEAL Where:[address] [place] [address]- [phone] Business (1) Additional Information: PLEASE CALL THIS OFFICE TO SCHEDULE A HOSPITAL FOLLOW UP APPOINTMENT. Follow Up with [facility] has been arranged for you. Call [phone] with any questions Additional Information: Home Physcial therapy has been arranged. Follow Up with readmission score is 12 Follow Up with ASIM DIEHL APRN-JOI When:07/23/2024 03:30 PM EDT Where:[address] [place] [address]- Follow Up Appointments No qualifying data available. [...] GEETA BEASLEY MD on 07/01/2024 01:15 PM [facility] CenterVheaaujl11-13-1618 Note Discharge Instructions Thank you for allowing [facility] to assist you with your healthcare needs. The following is importantdischarge information regarding your hospital visit. Your Care Team EMILIANO LEAL DO What to do next Instructions From Your Doctor 1. Kindly follow up with your Primary Care Physician and Cambering Machine Operator as recommended. You will needto do labwork in 3-5 days after being discharged. 2. Some of your medications may have changed during this hospital stay. Please go over these changes with your nurse before you leave the hospital. _ 3. Take all your medications as prescribed. If you have any queries, please reach out to our [facility] office at [phone] for general queries and [phone] for medication refills. 4. All your medical records and results are available to you through our [facility] Patient Portal. Tosign up, please visit [email or web address] Scheduled Follow-Up Appointments Appointment Type When With Where Contact Information StatusCV OV 07/10/2024 03:00 PM EDT ASIM DIEHL [facility] Confirmed PC OV 07/19/2024 03:30 PM EDT EMILIANO LEAL DO [address] [phone] Confirmed CV OV 08/07/2024 03:00 PM EDT ASIM DIEHL [facility] Confirmed CV OV 09/11/2024 01:00 PM EDT [facility] Up with [facility] [phone] for your oxygen questions When:Within 1-2 days Follow Up with EMILIANO LEAL Where:[address] [place] [address]- [phone] Business (1) Additional Information: PLEASE CALL THIS OFFICE TO SCHEDULE A HOSPITAL FOLLOW UP APPOINTMENT. Follow Up with [facility] has been arranged for you. Call [phone] with any questions Additional Information: Home Physcial therapy has been arranged. Follow Up with readmission score is 12 Follow Up with ASIM DIEHL When:07/23/2024 03:30 PM EDT Where:[address] [place] [address]- The Following Activity and Diet Have Been [...] Once a day Refills: 3 Pickup at [facility] New bumetanide (bumetanide 1 mg oral tablet) 1 tab(s) by mouth Once a day Refills: 3 Pickup at [facility] Unchanged amiodarone (amiodarone 200 mg oral tablet) [...] a day Take with food Pharmacy Information [facility]: [address], [place] [id number] [phone] What How Much When Comments Stop Taking [...] oxygen Your health care provider or a business process representative from your medical billing and coding instructor company will show you how touse your [...] around. Follow instructions from your medical billing and coding instructor company about how to safely secure your tank. Make sure you have enough oxygen for the amount of time you will be away from home. If you are planning air travel, contact the airline to find out if they allow the use of an approved portable oxygen concentrator. You may also need documents from your health care provider and medical billing and coding instructor company before you travel. General safety tips [...] Summary Your health care provider or a business process representative from your medical billing and coding instructor company will show you how touse your [...] 06/17/2004 Document Revised: 09/14/2018 Document Reviewed: 10/19/2016 [employer] Patient Education 2020 [employer] Heart Failure Eating Plan Heart failure, also called congestive heart failure, occurs when your heart does not pump blood well enough to meet your body's needs for oxygen-rich blood. Heart failure is a long-term (chronic) condition. Living with heart failure can be challenging. However, following your health care provider'sinstructions about a healthy lifestyle and working with a diet and sports nutritionist (dietitian) to choose the right foods may [...] cheese. Low-sodium cottage cheese. Fats and oils [place], canola, soybean, flaxseed, or sunflower oil. Avocado. Sweets and desserts Apple sauce. Granola bars. Sugar-free pudding and gelatin. Frozen fruit bars. Seasoning and other foods Fresh and dried herbs. Lemon or metlakatla juice. Vinegar. Low-sodium ketchup. Salt- free marinades, [...] vegetables with sauce or seasonings. Creamed vegetables. Guinean fries. Onion rings. Pickled vegetables and sauerkraut. [...] Salted nuts and seeds. Dairy Whole milk, mizd-ocx-mrzx, and cream. Buttermilk. Processed cheese, cheese spreads, [...] and bouillon cubes. Horseradish, ketchup, and mustard. [facility] Children'S Centertershire sauce. Teriyaki sauce, soy sauce (including [...] 08/12/2017 Document Revised: 05/24/2019 Document Reviewed: 08/12/2017 Relevvant Patient Education 2020 Access Northeast. Heart Failure Exacerbation Heart failure is a [...] Follow these instructions at home: Medicines Take fpce-lcf-klmlrqw and prescription medicines only as told by your health care provider. Do not stop taking your medicines or change the amount you take. If you are having problems or sideeffects from your medicines, talk to your health care provider. If you are having difficulty paying for your medicines, contact a social worker masters or your clinic. There are many programs [...] 08/09/2017 Document Revised: 03/10/2018 Document Reviewed: 08/09/2017 ElseTopVisible Patient Education 2020 Relevvant Inc. Atrial Fibrillation Atrial fibrillation is a [...] may be diagnosed with: Electrocardiogram (ECG). Ambulatory monitoring specialist. This device records your heartbeats for 24 [...] 03/28/2006 Document Revised: 05/18/2018 Document Reviewed: 05/19/2018 ElseTopVisible Patient Education 2020 Relevvant Inc. Additional Information VACCINATE! IT SAVES LIVES! Members of the community who have not yet received the COVID-19 vaccine and would like to receive it can visit one of [facility] vaccine clinics. There are many vaccine clinic locations within the [facility]. For locations and available times, please visit [email or web address] It is important to note that some COVID mobile vaccine clinics are held outdoors and may be canceled in rainy or stormy conditions. To learn more about pediatric vaccinations (ages 5-11), we invite you to visit the [facility] webpage. [email or web address] [email or web address] learn more about the COVID-19 vaccine, we invite you to visit the CDC website for a list of frequently asked questions.https://www.cdc.gov/coronavirus/2019-ncov/vaccines/faq.html [facility] Patient Portal Access Instructions: Stay connected with your healthcare team and access your personal medical information anytime with the [facility] Patient Portal. Please follow the directions below to create your Judys Book account: 1.Access the email account you provided upon registration to the hospital/physician office.2.Look for an invitation email from [facility].3.Open the email and access the invitation link: AcceptInvitation to [facility].4.Fill in the required tripp to create your account. To access your account, visit [employer]. Click the blue button labeled Access Patient Portal and then log in with the username and password that you created in the steps above. You will be able to view your test results, lab results, a summary of your visits, upcoming appointments and more. There is also a convenient messaging option where you can send secure messages to your TaKaDuvider. In addition, you will have the ability to download any documents or summaries to your computer and/or send the information securely to a physician. Remember that your healthcare information is confidential, so carefully consider who you will allowto register on the [facility] Patient Portal for access to your information. You can also access the [facility] Patient Portal on the [facility] duke. Simply click on Patient Portal and then log into your account. If you would like to receive a full copy of your medical records, please contact the [facility] Medical Records Department by calling [phone], Tuesday through Tuesday between 8 a.m. and [...] Call your local pharmacy or go to [email or web address] to find one close to you.3.Make use of household items: Use cat litter or old coffee grounds to dispose medications if other options arenot available. Mix your drugs with these household products, seal them in an airtight container andthrow it into the garbage. Call [facility]: [phone] to be sure your drugs can be [...] aware that I should contact my doctor. Patient/Fund Raiser Signature: Date/Time: Relationship to Patient: Witness Name/Signature: Date/Time: [facility] Center[facility]kxy[facility]ha40-[facility]87 Discharge summary Date of Service 07/01/2024 Discharge Diagnosis Atrial Fibrillation Acute on Chronic HFrEF Hospital Course 83-year-old female with history of recently diagnosed atrial fibrillation (status post cardioversion on June 19), recently diagnosed HFmrEF, hypertension, osteoporosis Transferred from [place] for acute on chronic HFmrEF in the [...] up with your Primary Care Physician and Cambering Machine Operator as recommended. _ 2. Some of your medications may have changed during this hospital stay. Please go over these changes with your nurse before you leave the hospital. _ 3. Take all your medications as prescribed. If you have any queries, please reach out to our [facility] office at [phone] for general queries and [phone] for medication refills. 4. All your medical records and results are available to you through our [employer] Patient Portal. Tosign up, please visit [email or web address] [email or web address] New Prescription amLODIPine (amLODIPine 5 mg [...] Up Follow Up with EMILIANO LEAL Where:[address] [place] [address]- [phone] Business (1) Additional Information: PLEASE CALL THIS OFFICE TO SCHEDULE A HOSPITAL FOLLOW UP APPOINTMENT. Follow Up with [facility] has been arranged for you. Call [phone] with any questions Additional Information: Home Physcial therapy has been arranged. Follow Up with readmission score is 12 Follow Up with ASIM DIEHL When:07/23/2024 03:30 PM EDT Where:[address] [place] [address]- Follow Up Appointments No qualifying data available. [...] GEETA BEASLEY MD on 07/01/2024 01:15 PM [facility] CenterMrhwudyv34-45-5432 Hospital Discharge instructions Patient Education 07/01/2024 10:23:13 [...] oxygen Your health care provider or a business process representative from your medical billing and coding instructor company will show you how touse your [...] around. Follow instructions from your medical billing and coding instructor company about how to safely secure your tank. Make sure you have enough oxygen for the amount of time you will be away from home. If you are planning air travel, contact the airline to find out if they allow the use of an approved portable oxygen concentrator. You may also need documents from your health care provider and medical billing and coding instructor company before you travel. General safety tips [...] Summary Your health care provider or a business process representative from your medical billing and coding instructor company will show you how touse your [...] 06/17/2004 Document Revised: 09/14/2018 Document Reviewed: 10/19/2016 Relevvant Patient Education 2020 Access Northeast. 07/01/2024 10:23:02 Heart Failure Eating Plan Heart [...] lifestyle and working with a diet and sports nutritionist (dietitian) to choose the right foods may [...] cheese. Low-sodium cottage cheese. Fats and oils [place], canola, soybean, flaxseed, or sunflower oil. Avocado. Sweets and desserts Apple sauce. Granola bars. Sugar-free pudding and gelatin. Frozen fruit bars. Seasoning and other foods Fresh and dried herbs. Lemon or metlakatla juice. Vinegar. Low-sodium ketchup. Salt- free marinades, [...] vegetables with sauce or seasonings. Creamed vegetables. Guinean fries. Onion rings. Pickled vegetables and sauerkraut. [...] Salted nuts and seeds. Dairy Whole milk, rrgd-bcq-xjjn, and cream. Buttermilk. Processed cheese, cheese spreads, [...] 08/12/2017 Document Revised: 05/24/2019 Document Reviewed: 08/12/2017 Relevvant Patient Education 2020 Relevvant Inc. 07/01/2024 10:22:57 Heart Failure Exacerbation Heart [...] Follow these instructions at home: Medicines Take hliv-ejt-kcnvvcv and prescription medicines only as told by your health care provider. Do not stop taking your medicines or change the amount you take. If you are having problems or sideeffects from your medicines, talk to your health care provider. If you are having difficulty paying for your medicines, contact a social worker masters or your clinic. There are many programs [...] 08/09/2017 Document Revised: 03/10/2018 Document Reviewed: 08/09/2017 Relevvant Patient Education 2020 Access Northeast. 07/01/2024 10:22:22 Atrial Fibrillation Atrial Fibrillation Atrial [...] may be diagnosed with: Electrocardiogram (ECG). Ambulatory monitoring specialist. This device records your heartbeats for 24 [...] 03/28/2006 Document Revised: 05/18/2018 Document Reviewed: 05/19/2018 Relevvant Patient Education 2020 Access Northeast. Follow Up Care 06/28/2024 02:34:39 With:[facility] medical [phone] for your oxygen questions Address:Unknown When:1-2 days With:ASIM DIEHL Address: [address] [place] [address]- When:07/23/2024 15:30:00 With:EMILIANO LEAL Address: [address] [place] [address]- [phone] Business (1) When: Unknown Comments:PLEASE CALL THIS OFFICE TO SCHEDULE A HOSPITAL FOLLOW UP APPOINTMENT. With:[facility] has been arranged for you. Call [phone] with any questions Address:Unknown When: Unknown Comments:Home Physcial therapy has been arranged. With:readmission score is 12 Address:Unknown When: Unknown [facility] 03-23-2025 Respiratory therapy Hospital Progress note [...] by MYRTLE Holden on 07/01/2024 07:19 AM [facility] CenterNtlqyyjs17-50-5951 Cardiology Progress note Date of Service 06/30/2024 [...] diagnosed HFmrEF, hypertension, osteoporosis Being transferred from [place] for acute on chronic HFmrEF in the [...] GEETA BEASLEY MD on 06/30/2024 11:59 AM [facility] CenterGufojjis51-69-5260 Cardiology Progress note Date of Service 06/30/2024 [...] diagnosed HFmrEF, hypertension, osteoporosis Being transferred from [place] for acute on chronic HFmrEF in the [...] GEETA BEASLEY MD on 06/30/2024 11:59 AM [facility] CenterQpcdmwek64-40-4818 Cardiology Progress note Date of Service 06/29/2024 [...] diagnosed HFmrEF, hypertension, osteoporosis Being transferred from [place] for acute on chronic HFmrEF in the [...] ISAURA JACKSON MD on 06/29/2024 11:45 PM [facility] CenterWaykckqt06-45-3326 Note* Exam Date Time Procedure Performing Provider Status 06/29/24 6:[address] Thorax w/o Contrast ROCCO WILSON MD; Auth (Verified) [id number] ORIGINAL HISTORY: Short of breath COMPARISON: 21 [...] 06/30/2024 8:44:59 AM Ordering Provider: ISAURA JACKSON [facility] CenterQfyordcm70-40-0410 Pastoral care Progress note Pastoral Care Note Entered On: 06/29/2024 14:49 EDT Performed On: 06/29/2024 13:16 EDT by Salvaodr Sánchez [facility] Type of Pastoral Visit : Initial [...] by Salvador Sánchez on 06/29/2024 02:48 PM [facility] CenterGeulcodt14-37-1242 Note* Exam Date Time Procedure Performing Provider Status 06/29/24 10:40 AM Electrocardiogram - EKG - CV LUCIANO HYLTON MD; Auth (Verified) ECG Final Report SINUS RHYTHM ATRIAL PREMATURE COMPLEX PROBABLE LEFT ATRIAL ENLARGEMENT ANTERIOR INFARCT, AGE INDETERMINATE Electronic Signature: SANGITA HYLTON MD 06/30/2024 14:52:45 [facility] CenterQruiprmx58-12-6729 Procedure note DATE: 06/29/24 PROCEDURE: DC cardioversion INDICATIONS: persistent atrial fibrillation PHYSICIAN: Dr Bailon GEOSCIENCE SPECIALIST: Dr Gunter ; Eileen Rosas HPI: recurrent [...] HARRY BAILON MD on 06/29/2024 10:09 AM [facility] CenterObxtckua91-83-2781 Cardiology Progress note Date of Service 06/29/2024 [...] diagnosed HFmrEF, hypertension, osteoporosis Being transferred from [place] for acute on chronic HFmrEF in the [...] ISAURA JACKSON MD on 06/29/2024 11:45 PM [facility] CenterElyogien56-64-9960 Anesthesiology Consult note Patient: JED SEWELL Age: [...] Oral, qDay, #90 cap(s), 3 Refill(s), Pharmacy: [facility], 160, cm, 06/13/24 13:57:00 EST, Height, kg, 06/13/24 13:57:00 EST, Dosing Weight Eliquis 5 mg oral tablet: Dose : 5 mg = 1 tab(s), Oral, BID, # 180 tab(s), 3 Refill(s), Pharmacy: [facility], 160, cm, 06/19/24 6:42:00 EDT, Height, 61.3, kg, 06/19/24 6:42:00 EDT, Dosing Weight Jardiance 10 mg oral tablet: Dose : 10 mg = 1 tab(s), Oral, qAM, # 90 tab(s), 3 Refill(s), Pharmacy: [facility], 160, cm, 06/13/24 13:57:00 EST, [...] qDay, # 90 tab(s), 3 Refill(s), Pharmacy: [facility], 160, cm, 06/13/24 13:57:00 EST, Height, kg, 06/13/24 13:57:00 EST, Dosing Weight bumetanide 1 mg oral tablet: Dose : 1 mg = 1 tab(s), Oral, BID, # 180 tab(s), 3 Refill(s), Pharmacy: [facility], 160, cm, 06/13/24 13:57:00 EST, Height, kg, 06/13/24 13:57:00 EST, Dosing Weight potassium chloride 20 mEq oral tablet, extended release: Dose : 20 mEq = 1 tab(s), Oral, qDay, Takewith food, # 30 tab(s), 3 Refill(s), Pharmacy: [facility], 160, cm, 256:42:00 EDT, Height, kg, 06/19/24 [...] list: Medical Atrial fibrillation / SNOMED CT 38937419 / Confirmed Chronic renal failure, stage 3 (moderate) / SNOMED CT 107484453 / Confirmed HFrEF (heart failure with reduced ejection fraction) / SNOMED CT 2485456249 / Confirmed HTN (hypertension) / SNOMED CT [id number] / Confirmed Serum calcium elevated / SNOMED CT 906297961 / Confirmed Osteoporosis / SNOMED CT 960329091 / Confirmed, Active Problems (10) Atrial fibrillation Chronic renal failure, stage 3 (moderate) HFrEF (heart failure with reduced ejection fraction) HTN (hypertension) ME (myocardial infarction) Mitral regurgitation Osteoporosis Serum calcium elevated Shortness of breath Tobacco use Histories Past Medical History: Active HTN (hypertension) ([id number]) Resolved Sciatica (76968087): Resolved. Microalbuminuria (198260360): Resolved. DDD (degenerative disc disease), lumbar (94270952): Resolved. Neck pain on right side (114842450): Resolved. Hypercalcemia (761593552): Resolved. Proteinuria of undiagnosed cause (881795323): Resolved. Acute bronchitis due to infection (783197877): Resolved. Family History: Respiratory disease Father COPD Mother Procedure history: Colonoscopy and biopsy of colon ([id number]) on 11/02/2019 at 78 Years. Colonoscopy (301062753) on 04/11/2011 at 70 Years. Ovarian cyst ([id number]). Appendectomy (891235177). Cholecystectomy (77081428). Abdominal hysterectomy (773443956). Social History: Social & Psychosocial Habits Alcohol [...] Pressure Cuff Size Medium Nail Bed Color [place] Capillary Refill < 2 seconds Dorsalis Pedis [...] Elimination Devices External catheter All Extremity Description [place], Normal for ethnicity Temperature All Extremities Warm Neurological Language Able to speak clearly Neurological Symptoms Patient denies Characteristics of Communication Appropriate Level of Consciousness Alert Eye Opening Response Ignacia Spontaneously Best Motor Response [place] Obeys simple commands Best Verbal Response Ignacia [...] Checked Cardiovascular Symptoms Edema Nail Bed Color [place] Capillary Refill < 2 seconds Heart Sounds [...] Temperature All Extremities Warm Mucous Membrane Color [place] Mucous Membrane Description Moist Sensory Perception Jose [...] Alert Aspiration Risk None Eye Opening Response [place] Spontaneously Best Motor Response [place] Obeys simple commands Best Verbal Response [place] Oriented Ignacia Coma Score 15 SEDA Yes [...] scale Cardiovascular Symptoms Edema Nail Bed Color [place] Capillary Refill < 2 seconds Heart Sounds [...] Makes facial grimaces, Symmetric resting/crying Skin Description [place], Normal for ethnicity, Dry Skin Temperature Warm Skin Integrity Pressure points intact Skin Turgor Non-Elastic Skin Symptoms Bruising All Extremity Description [place], Normal for ethnicity Temperature All Extremities Warm Mucous Membrane Color [place] Mucous Membrane Description Moist Antecubital Right 20 [...] scale Cardiovascular Symptoms Edema Nail Bed Color [place] Capillary Refill < 2 seconds Heart Sounds [...] Makes facial grimaces, Symmetric resting/crying Skin Description [place], Normal for ethnicity, Dry Skin Temperature Warm Skin Integrity Pressure points intact Skin Turgor Non-Elastic Skin Symptoms Bruising All Extremity Description [place], Normal for ethnicity Temperature All Extremities Warm Mucous Membrane Color [place] Mucous Membrane Description Moist Antecubital Right 20 [...] evident Teaching Method Explanation Preferred Spoken Language O[place]i Preferred Written Language [place]i Disease Process General Education Signs/Symptoms to report, Signs/Symptoms of complications Equipment Education radiation monitor, Urinary catheter care, Oxygen, Walker Patient [...] scale Cardiovascular Symptoms Edema Nail Bed Color [place] Capillary Refill < 2 seconds Heart Sounds [...] Makes facial grimaces, Symmetric resting/crying Skin Description [place], Normal for ethnicity, Dry Skin Temperature Warm Skin Integrity Pressure points intact Skin Turgor Non-Elastic Skin Symptoms Bruising All Extremity Description [place], Normal for ethnicity Temperature All Extremities Warm Mucous Membrane Color [place] Mucous Membrane Description Moist Sensory Perception Jose [...] Opening Response Ignacia Spontaneously Best Motor Response [place] Obeys simple commands Best Verbal Response [place] Oriented Ignacia Coma Score 15 SEDA Yes [...] (Not Done) CAM (more content not included)... [facility] CenterOnxqtltz94-42-1634 Note Date of Service 06/29/24 Chief Complaint [...] heart disease/mitral regurgitation, history of type II ME, A-fib RVR, and chronic renal disease who [...] the consult. Harry Bailon MD Cardiac Electrophysiology [phone] Digitally Signed by HARRY BAILON MD on 06/29/2024 07:46 AM [facility] CenterZkpojqyl46-63-7818 Cardiology Consult note Date of Service June [...] disease/mitral regurgitation 5. History of type II ME A-fib RVR 6. Chronic renal disease. Echocardiogram [...] within 2 hrs), Blood, Once, Preferred Lab: [facility], Stop date 06/28/24 10:41:00 EDT 1. [...] by MARCELLE ROSAS on 06/28/2024 10:57 AM [facility] CenterTizkwvow86-90-4378 Cardiology Consult note Date of Service June [...] disease/mitral regurgitation 5. History of type II ME A-fib RVR 6. Chronic renal disease. Echocardiogram [...] within 2 hrs), Blood, Once, Preferred Lab: [facility], Stop date 06/28/24 10:41:00 EDT 1. [...] by MARCELLE ROSAS on 06/28/2024 10:57 AM [facility] CenterMydibvkb46-50-7535 Respiratory therapy Hospital Progress note Respiratory Therapy [...] Megan Jaimes RRT on 06/28/2024 07:52 PM [facility] CenterYfcaguuj11-15-5220 History and physical note Date of Service 06/28/2024 04:50:45 History of Present Illness 83-year-old female with history of recently diagnosed atrial fibrillation (status post cardioversion on June 19), recently diagnosed HFmrEF, hypertension, osteoporosis Being transferred from [place] for acute on chronic HFmrEF in the [...] diagnosed HFmrEF, hypertension, osteoporosis Being transferred from [place] for acute on chronic HFmrEF in the [...] MARCO HINDS DO on 06/28/2024 06:08 AM [facility] CenterJrkhuoor21-16-3656 Evaluation + Plan noteExtracted from: Title:History and Physical Author:SHASHANK HINDS DO Date:06/28/24 Recurrent paroxysmal atrial fibrillation Acute on chronic HFmrEF in the setting of atrial fibrillation and hypertensive emergency History of: 83-year-old female with history of recently diagnosed atrial fibrillation (status post cardioversion), recently diagnosed HFmrEF, hypertension, osteoporosis Being transferred from [place] for acute on chronic HFmrEF in the [...] 03:00:00 PM Scheduled Provider:ASIM DIEHL Location:[facility] Appointment Type:CV OV Appointment Date:07/19/2024 03:30:00 PM Scheduled Provider:EMILIANO LEAL DO Location:[facility] Appointment Type:PC OV Appointment Date:08/07/2024 03:00:00 PM Scheduled Provider:ASIM DIEHL Location:[facility] Appointment Type:CV OV Appointment Date:09/11/2024 01:00:00 PM Scheduled Provider:MARCELLE ROSAS Location:[facility] Appointment Type:CV OV Diagnostic Tests Pending * AMIODARONE (CORDARONE), S/P 06/29/24 Future Scheduled Tests Radiology* MA Mammo Diagnostic Right w/ Brian 11/23/23 * US Breast Right Limited 11/23/23 [facility] 03-20-2025 Cardiology Consult note Date of [...] disease/mitral regurgitation 5. History of type II ME A-fib RVR 6. Chronic renal disease. Echocardiogram [...] within 2 hrs), Blood, Once, Preferred Lab: [facility], Stop date 06/28/24 10:41:00 EDT 1. [...] by MARCELLE ROSAS on 06/28/2024 10:57 AM [facility] CenterVuktmoeh39-56-6580 Note* Exam Date Time Procedure Performing Provider Status 06/28/24 4:57 AM Electrocardiogram - EKG - CV LISANDRO ZACARIAS MD; Auth (Verified) ECG Final Report ATRIAL FIBRILLATION Electronic Signature: LISANDRO LANGE MD 06/29/2024 16:45:39 [facility] CenterJhrmzkwb25-42-0119 History and physical note Date of Service 06/28/2024 04:50:45 History of Present Illness 83-year-old female with history of recently diagnosed atrial fibrillation (status post cardioversion on June 19), recently diagnosed HFmrEF, hypertension, osteoporosis Being transferred from [place] for acute on chronic HFmrEF in the [...] diagnosed HFmrEF, hypertension, osteoporosis Being transferred from [place] for acute on chronic HFmrEF in the [...] MARCO HINDS DO on 06/28/2024 06:08 AM [facility] CenterPjywqrhk12-28-7602 Hospital Discharge instructions Patient Education 06/19/2024 09:03:39 [...] before eating solid foods. General instructions Take tkih-imc-drardnv and prescription medicines only as told by [...] 07/18/2016 Document Revised: 06/26/2018 Document Reviewed: 07/18/2016 Relevvant Patient Education 2020 Access Northeast. 06/19/2024 09:03:14 3- Cardioversion (01/2018)(CUSTOM) CARDIOVERSION Discharge [...] Document Reviewed: 03/29/2014 ExitCare Patient Information 2015 [employer]. This information is not intended to replace advicegiven to you by your health care provider. Make sure you discuss any questions you have with your health care provider. Follow Up Care 06/13/2024 14:21:55 With:ASIM DIEHL Address: [address] [facility] [place] [address]- [phone] When:07/23/2024 15:30:00 [facility] 03-11-2025 Summary of episode note Discharge Instructions Thank you for allowing [facility] to assist you with your healthcare needs. [...] supplement have been sent electronically to the [facility] in [place]. ------- In regards to your procedure: -No [...] OV 07/19/2024 03:30 PM ED[facility] [address] [place] [id number] Confirmed CV OV 07/23/2024 03:30 PM EDT ASIM DIEHL [facility] Confirmed Follow Up Appointments Follow Up with ASIM DIEHL When:07/23/2024 03:30 PM EDT Where:[address] [facility] [place] [address]- [phone] [facility] Following Activity and Diet Have Been [...] Refills: 3 Take with food Pickup at [facility] Changed apixaban (Eliquis 5 mg oral tablet) 1 tab(s) by mouth Two (2) times a day Pickup at [facility] Unchanged amiodarone (amiodarone 200 mg oral tablet) [...] a day (in the morning) Pharmacy Information [facility]: [address], [place] [phone] Please take this list to your next [...] before eating solid foods. General instructions Take jcvo-tek-pqsmwmo and prescription medicines only as told by [...] 07/18/2016 Document Revised: 06/26/2018 Document Reviewed: 07/18/2016 Relevvant Patient Education 2020 Access Northeast. CARDIOVERSION Discharge instructions ACTIVITY/SAFETY Please refrain from [...] Document Reviewed: 03/29/2014 ExitCare Patient Information 2015 PickUpPal, SpinUtopia. This information is not intended to replace advicegiven to you by your health care provider. Make sure you discuss any questions you have with your health care provider. Additional Information VACCINATE! IT SAVES LIVES! Members of the community who have not yet received the COVID-19 vaccine and would like to receive it can visit one of [facility] vaccine clinics. There are many vaccine clinic locations within the [facility]. For locations and available times, please visit [email or web address]/. It is important to note that some COVID mobile vaccine clinics are held outdoors and may be canceled in rainy or stormy conditions. To learn more about pediatric vaccinations (ages 5-11), we invite you to visit the [facility] webpage. https://www.[facility].org/pages/7634-Nlhob-Ueeznbctwow-Iwjitppqaz-Yoeor-Uho stions.htmlTo learn more about the COVID-19 vaccine, we invite you to visit the CDC website for a list of frequently asked questions.https://www.cdc.gov/coronavirus/2019-ncov/vaccines/faq.html CelesteRetailVector Patient Portal Access Instructions: Stay connected with your healthcare team and access your personal medical information anytime with the CelesteRetailVector Patient Portal. Please follow the directions below to create your Judys Book account: 1.Access the email account you provided upon registration to the hospital/physician office.2.Look for an invitation email from [facility].3.Open the email and access the invitation link: AcceptInvitation to [facility]ail[facility].4.Fill in the required tripp to create your account. To access your account, visit [employer]/CastleOSt. Click the blue button labeled Access Patient Portal and then log in with the username and password that you created in the steps above. You will be able to view your test results, lab results, a summary of your visits, upcoming appointments and more. There is also a convenient messaging option where you can send secure messages to your TaKaDuvider. In addition, you will have the ability to download any documents or summaries to your computer and/or send the information securely to a physician. Remember that your healthcare information is confidential, so carefully consider who you will allowto register on the [facility]este[facility]ailVector Patient Portal for access to your information. You can also access the [facility]este[facility]ailVector Patient Portal on the Celeste Anywhere duke. Simply click on Patient Portal and then log into your account. If you would like to receive a full copy of your medical records, please contact the [facility] Medical Records Department by calling [phone], Tuesday through Tuesday between 8 a.m. and [...] Call your local pharmacy or go to [email or web address] to find one close to you.3.Make use of household items: Use cat litter or old coffee grounds to dispose medications if other options arenot available. Mix your drugs with these household products, seal them in an airtight container andthrow it into the garbage. Call [facility]: [phone] to be sure your drugs can be [...] aware that I should contact my doctor. Patient/Fund Raiser Signature: Date/Time: Relationship to Patient: Witness Name/Signature: Date/Time: [facility] Center[facility]ohuzqf19[facility]00 Discharge summary Date of Service June 19, 2024 GC: Asim Diehl APRN DYNAMOMETER TESTER ENGINE Discharge Diagnosis Atrial fibrillation, s/p [facility] Hospital Course This is a 83-year-old female [...] Patient underwent successful direct-current cardioversion with subsequent presybeterian of normal sinus rhythm which she remains [...] supplement have been sent electronically to the [facility] in [place]. ------- In regards to your procedure: -No [...] ASIM DIEHL When:07/23/2024 03:30 PM EDT Where:[address] [facility] [address] [facility] [place] [address]- [phone] Follow Up Appointments No qualifying data available. [...] HARRY BAILON MD on 06/19/2024 02:27 PM [facility] CenterOsthcadb02-76-4433 Procedure note Date of Service June 19, [...] response rate of 76 bpm. Once a E LEARNING DESIGNER administered an IV anesthetic agent and the patient was fully sedated, an anterior-posterior patch placement was utilized to deliver a synchronized biphasic waveform at 150 J with anterior direct pressure which resulted in the presybeterian of normal sinus rhythm at a heart rate of 68 bpm. The patient tolerated the procedure well and returned to cardiac same day in stable condition. Digitally Signed by ANASTASIYA JEFF on 06/19/2024 09:40 AM [facility] [id number] Anesthesiology Consult note Patient: JED SEWELL Age: [...] list: Medical Atrial fibrillation / SNOMED CT 42672172 / Confirmed Chronic renal failure, stage 3 (moderate) / SNOMED CT 068243354 / Confirmed HFrEF (heart failure with reduced ejection fraction) / SNOMED CT 6697145464 / Confirmed HTN (hypertension) / SNOMED CT [id number] / Confirmed Serum calcium elevated / SNOMED CT 711445390 / Confirmed Osteoporosis / SNOMED CT 365672827 / Confirmed, Active Problems (10) Atrial fibrillation Chronic renal failure, stage 3 (moderate) HFrEF (heart failure with reduced ejection fraction) HTN (hypertension) ME (myocardial infarction) Mitral regurgitation Osteoporosis Serum calcium elevated Shortness of breath Tobacco use Histories Past Medical History: Active HTN (hypertension) ([id number]) Resolved Sciatica (19548419): Resolved. Microalbuminuria (382389169): Resolved. DDD (degenerative disc disease), lumbar (34759415): Resolved. Neck pain on right side (764413480): Resolved. Hypercalcemia (112662710): Resolved. Proteinuria of undiagnosed cause (325354599): Resolved. Acute bronchitis due to infection (630641656): Resolved. Family History: Respiratory disease Father COPD Mother Procedure history: Colonoscopy and biopsy of colon (7126263195) on 11/02/2019 at 78 Years. Colonoscopy (243602601) on 04/11/2011 at 70 Years. Ovarian cyst ([id number]). Appendectomy (545342442). Cholecystectomy (91152682). Abdominal hysterectomy (839889879). Social History: Social & Psychosocial Habits Alcohol [...] Weight 61.3 kg Weight Lbs 134.9 lb [place] Body Weight 52.38 kg Admission Body Mass [...] Weight 61.3 kg Weight Lbs 134.9 lb [place] Body Weight 52.38 kg Admission Body Mass [...] Urinary Elimination Voiding, no difficulties Skin Description [place], Dry Skin Temperature Warm Skin Integrity Intact Mucous Membrane Color [place] Neurological Symptoms Patient denies Extremity Movement Equal [...] #1 We May Share PHI natalie elizabeth- [phone] Designated Person #1 Relationship Daughter Privacy Restrictions Requested None Status N/A Sensory Deficits None Sleep Apnea Snore No Sleep Apnea Tired Yes Sleep Apnea Obstruction No Sleep Apnea Pressure Yes Sleep Apnea BMI No Sleep Apnea Age Yes Sleep Apnea Neck No Sleep Apnea Gender No Sleep Apnea Score 3 Diagnosed With Sleep Apnea No Advanced Directives Yes Advance Directive Type [place] Durable Power of Bite Block Maker for [place], [place] Declaration (Living Will) Advance Directive Location [...] Method Explanation, Printed materials Preferred Spoken Language Omani Preferred Written Language Omani Teaching Evaluation No further teaching needed Safety [...] Completed (In Progress) . Assessment and Plan Indian Society of Anesthesiologists (ASA) physical status classification: [...] by JAREK CHRISTENSEN on 06/19/2024 09:44 AM [facility] CenterZzhlrbbx25-92-1474 Hospital Discharge instructions Patient Education 05/29/2024 11:01:38 [...] 12/20/2012 Document Revised: 07/20/2019 Document Reviewed: 02/23/2017 Relevvant Patient Education 2020 Access Northeast. 05/29/2024 11:01:05 Atrial Fibrillation, Gwyb-br-Zenh Atrial Fibrillation Atrial fibrillation is a type [...] Follow these instructions at home: Medicines Take gzmr-drt-uvweemd and prescription medicines only as told by [...] 01/04/2009 Document Revised: 06/01/2018 Document Reviewed: 05/19/2018 Relevvant Patient Education 2020 Access Northeast. Follow Up Care 05/23/2024 13:05:00 With:EMILIANO LEAL DO Address: [address] [place] [phone] When:3-5 days Comments:Please call to schedule your post-hospital follow-up appointment. With:ASIM DIEHL SOLE SCRAPER-DYNAMOMETER TESTER ENGINE Address: [address] [place] [address] [address] [place] [address]- When:06/13/2024 14:00:00 Comments:This is your post-hospital follow-up appointment in [place] with cardiology. [facility] 02-18-2025 Note Discharge Instructions Thank you for allowing [facility] to assist you with your healthcare needs. The following is importantdischarge information regarding your hospital visit. Your Care Team [facility] Your Diagnosis Asthenia Atrial fibrillation Chronic renal failure, stage 3 (moderate) HFrEF (heart failure with reduced ejection fraction) HTN (hypertension) What to do next Scheduled Follow-Up Appointments Appointment Type When With Where Contact Information StatusCV OV Hospital Follow Up 06/13/2024 02:00 PM EST ASIM DIEHL [facility] Confirmed PC OV 07/19/2024 03:30 PM EDT EMILIANO LEAL DO [facility] [address] [place] [phone] Confirmed Follow Up Appointments Follow Up with EMILIANO LEAL DO When:Within 3-5 days Where:[address] [place] [phone] Additional Information: Please call to schedule your post-hospital follow-up appointment. Follow Up with ASIM DIEHL When:06/13/2024 02:00 PM EST Where:[address] [place] [address]- Additional Information: This is your post-hospital follow-up appointment in [place] with cardiology. The Following Activity and Diet [...] a day Duration: 30 Days Pickup at [facility] today @ 9a Unchanged apixaban (Eliquis 2.5 mg oral tablet) 1 tab(s) by mouth Two (2) times a day Pickup at [id number] today @ 9a Unchanged denosumab (Prolia 60 mg/ mL subcutaneous solution) 1 Milliliter Subcutaneous Every 6 months Osteoporosis Unchanged dilTIAZem (Cardizem CD 120 mg/ 24 hours oral capsule, extended release) 1 cap by mouth Once a day Pickup at [facility] today @ 9a Unchanged empagliflozin (Jardiance 10 mg oral tablet) 1 tab(s) by mouth Once a day (in the morning) Pickup at [facility] today @ 9a Pharmacy Information [id number]: [address] [place], [place] [phone] [facility]: [address], [place] [phone] What How Much When Comments Stop Taking [...] (such as 'Afib' or atrial flutter with Ykudp-Kuvdaxkbe-Jocml syndrome); a heart condition that causes you [...] effects. Avoid taking an herbal supplement containing [place]'s wort. Avoid getting up too fast from [...] may report side effects to FDA at 8-651-FLH-3887. What other drugs will affect diltiazem? Sometimes it is not safe to use certain medicines at the same time. Some drugs can affect your blood levels of other drugs you use, which may increase side effects or make the medicines less effective. Many drugs can affect diltiazem. This includes prescription and svge-lqx-ujxjieu medicines, vitamins, and herbal products. Not all [...] to ensure that the information provided by [employer]. ('Multum') is accurate, up-to-date, and complete, but no guarantee is made to that effect. Drug information contained herein may be time sensitive. CrowdClock information has been compiled for use by healthcare practitioners and consumers in the [place] and therefore CrowdClock does not warrant that uses outside of the [place] are appropriate, unless specifically indicated otherwise. PlayerPros drug information does not endorse drugs, diagnose patients or recommend therapy. PlayerPros drug information isan informational resource designed to [...] effective or appropriate for any given patient. CrowdClock does not assume any responsibility for any aspect of healthcare administered with the aid of information CrowdClock provides. The information contained herein is not intended to cover all possible uses, directions, precautions, warnings, drug interactions, allergic reactions, or adverse effects. If you have questions about the drugs you are taking, check with your doctor, nurse or pharmacist. Copyright 5874-4034 [employer]. Version: 19.02. Revision Date: 11/17/2023. Education Materials [...] 12/20/2012 Document Revised: 07/20/2019 Document Reviewed: 02/23/2017 Relevvant Patient Education 2020 Relevvant Inc. Atrial Fibrillation Atrial fibrillation is a [...] Follow these instructions at home: Medicines Take mrjd-zxz-unwxcqh and prescription medicines only as told by [...] 01/04/2009 Document Revised: 06/01/2018 Document Reviewed: 05/19/2018 ElseTopVisible Patient Education 2020 Access Northeast. Additional Information VACCINATE! IT SAVES LIVES! Members of the community who have not yet received the COVID-19 vaccine and would like to receive it can visit one of [facility] vaccine clinics. There are many vaccine clinic locations within the [facility]. For locations and available times, please visit [email or web address]/. It is important to note that some COVID mobile vaccine clinics are held outdoors and may be canceled in rainy or stormy conditions. To learn more about pediatric vaccinations (ages 5-11), we invite you to visit the [facility] webpage. https://www.[facility].org/pages/3375-Hskwd-Mahavhaqipf-Vsolrisykc-Locdj-Lbz stions.htmlTo learn more about the COVID-19 vaccine, we invite you to visit the CDC website for a list of frequently asked questions.https://www.cdc.gov/coronavirus/2019-ncov/vaccines/faq.html Judys Book Patient Portal Access Instructions: Stay connected with your healthcare team and access your personal medical information anytime with the Judys Book Patient Portal. Please follow the directions below to create your Celeste[facility]ailVector account: 1.Access the email account you provided upon registration to the hospital/physician office.2.Look for an invitation email from [facility].3.Open the email and access the invitation link: AcceptInvitation to [facility].4.Fill in the required tripp to create your account. To access your account, visit [email or web address]. Click the blue button labeled Access Patient [...] who you will allowto register on the [facility] Patient Portal for access to your information. You can also access the [facility] Patient Portal on the [facility] Timbuktu Labswhere duke. Simply click on Patient Portal and then log into your account. If you would like to receive a full copy of your medical records, please contact the [facility] Medical Records Department by calling [phone], Tuesday through Tuesday between 8 a.m. and [...] Call your local pharmacy or go to http://[email or web address] to find one close to you.3.Make use of household items: Use cat litter or old coffee grounds to dispose medications if other options arenot available. Mix your drugs with these household products, seal them in an airtight container andthrow it into the garbage. Call [facility]: [phone] to be sure your drugs can be [...] Education Materials Managing Your Hypertension Atrial Fibrillation, Ucza-sp-Cgkb Medication Leaflets diltiazem (oral/injection) My discharge plan and instructions have been reviewed and explained to me and I,JED SEWELL understand my current condition and have read and understand these discharge instructions. I have received a written copy of the plan/instructions. If I have questions, I am aware that I should contact my doctor. Patient/Fund Raiser Signature: Date/Time: Relationship to Patient: Witness Name/Signature: Date/Time: [facility]-18-2025 Pastoral care Progress note Pastoral Care Note Entered On: 05/29/2024 9:31 EST Performed On: 05/29/2024 9:29 EST by Nathaniel Arce Pastoral Care Type of Pastoral Visit : Follow up visit Spiritual Care Visit Initiated by : Machinist Mechanic Spiritual Care Reason for Visit : General [...] by Nathaniel Arce on 05/29/2024 09:29 AM [facility]02-12-2025 Note Date of Service 05/23/2024 Chief Complaint weakness History of Present Illness Patient is an 83-year-old female, who follows with Dr. Emiliano Leal with a past medical history significant for hypertension, atrial fibrillation, congestive heart failure and chronic kidney disease stage III, presented to [facility] transitional care unit last 05/18/2024 for ongoing rehab after a stay at [facility] CCU. Patient was admitted to the [...] be medically optimized and transferred to [facility] TCU on 05/18. She was seen on [...] moderate pulmonary edema. Patient was discharged from [facility] and transferred to inpatient status. IV [...] was stable today and transitioned back to [facility]. She remains on 2L of oxygen but, per daughter, patient has smoked for a long time. She could possibly have some underlying COPD. Discussed with patient that we will try to wean her to room air but she may have to go home on oxygen. drywall worker asked to schedule patient in with [...] Asthenia Consult placed to PT and OT. drywall worker following for discharge planning needs. 2. [...] mg PO daily. 30-day event monitored by [facility] cardiology. Patient will need to follow-up with [...] collaborating with physician, and documenting in chart. CPT#88816 Problem List/Past Medical History Ongoing Chronic renal [...] by DANIELLA HERNANDEZ on 05/23/2024 08:06 PM [facility]02-12-2025 Hospital Discharge instructions Patient Education 05/23/2024 12:11:10 [...] Follow these instructions at home: Medicines Take axhf-sgu-eabbzhu and prescription medicines only as told by your health care provider. Do not stop taking your medicines or change the amount you take. If you are having problems or sideeffects from your medicines, talk to your health care provider. If you are having difficulty paying for your medicines, contact a social worker masters or your clinic. There are many programs [...] 08/09/2017 Document Revised: 03/10/2018 Document Reviewed: 08/09/2017 Relevvant Patient Education ShopGo. Follow Up Care 05/20/2024 01:31:46 With:ASIM DIEHL Address: [address] [place] [address] [address] [facility] [place] [phone] When:5 to 7 days Comments:follow-up in the office [facility] 02-12-2025 Evaluation + Plan noteExtracted from: Title:History and Physical Author:DANIELLA HERNANDEZ Date:05/23/24 1. Asthenia Consult placed to PT and OT. drywall worker following for discharge planning needs. 2. [...] mg PO daily. 30-day event monitored by [facility] cardiology. Patient will need to follow-up with [...] collaborating with physician, and documenting in chart. CPT#14062 Future Appointments Appointment Date:06/13/2024 02:00:00 PM Scheduled Provider:ASIM DIEHL [facility] Appointment Type:CV OV Hospital Follow Up Appointment Date:07/19/2024 03:30:00 PM Scheduled Provider:EMILIANO LEAL DO Location:[facility] Appointment Type: OV Future Scheduled Tests Laboratory* Basic Metabolic Panel 05/17/24 * Calcium Level Ionized 05/17/24 * PTH, Intact 05/17/24 Radiology* MA Mammo Diagnostic Right w/ Brian 11/23/23 * US Breast Right Limited 11/23/23 [facility] 02-12-2025 Note Discharge Instructions Thank you for allowing [facility] to assist you with your healthcare needs. The following is importantdischarge information regarding your hospital visit. Your Care Team Daniella Hernandez CNP Your Diagnosis Atrial fibrillation CHF exacerbation Chronic renal failure, stage 3 (moderate) HTN (hypertension) Mitral regurgitation Type 2 ME (myocardial infarction) What to do next Instructions From Your Doctor You were admitted to [facility] for ongoing rehab before going home. [...] are medically optimized for discharge to [facility] TCU today. Scheduled Follow-Up Appointments Appointment Type When With Where Contact Information StatusCV OV Hospital Follow Up 06/13/2024 02:45 PM EST KIMBERLY AGUILAR [facility] Confirmed PC OV 07/19/2024 03:30 PM EDT EMILIANO LEAL [facility] [place] [address] [place] [address] Confirmed Follow Up Appointments Follow Up with ASIM DIEHL When:Within 5 to 7 days Where:[address] [place] [phone] Additional Information: follow-up in the office The [...] Follow these instructions at home: Medicines Take wibu-xyt-oamgoiq and prescription medicines only as told by your health care provider. Do not stop taking your medicines or change the amount you take. If you are having problems or sideeffects from your medicines, talk to your health care provider. If you are having difficulty paying for your medicines, contact a social worker masters or your clinic. There are many programs [...] 08/09/2017 Document Revised: 03/10/2018 Document Reviewed: 08/09/2017 Relevvant Patient Education 2020 Access Northeast. Additional Information VACCINATE! IT SAVES LIVES! Members of the community who have not yet received the COVID-19 vaccine and would like to receive it can visit one of [facility] vaccine clinics. There are many vaccine clinic locations within the [facility]. For locations and available times, please visit [email or web address]/. It is important to note that some COVID mobile vaccine clinics are held outdoors and may be canceled in rainy or stormy conditions. To learn more about pediatric vaccinations (ages 5-11), we invite you to visit the [facility] webpage. https://www.[facility].org/pages/8372-Ndpru-Rxczfkhwtab-Bftiqjlavl-Hbvar-Cin stions.htmlTo learn more about the COVID-19 vaccine, we invite you to visit the CDC website for a list of frequently asked questions.https://www.cdc.gov/coronavirus/2019-ncov/vaccines/faq.html Judys Book Patient Portal Access Instructions: Stay connected with your healthcare team and access your personal medical information anytime with the Jud[facility] Book Patient Portal. Please follow the directions below to create your Judys Book account: 1.Access the email account you provided upon registration to the hospital/physician office.2.Look for an invitation email from [facility].3.Open the email and access the invitation link: AcceptInvitation to [facility].4.Fill in the required tripp to create your account. To access your account, visit [email or web address] [facility]shart. Click the blue button labeled Access Patient [...] who you will allowto register on the [facility] Patient Portal for access to your information. You can also access the [facility] Patient Portal on the [facility] duke. Simply click on Patient Portal and then log into your account. If you would like to receive a full copy of your medical records, please contact the [facility] Medical Records Department by calling [phone], Tuesday through Tuesday between 8 a.m. and [...] Call your local pharmacy or go to [email or web address] to find one close to you.3.Make use of household items: Use cat litter or old coffee grounds to dispose medications if other options arenot available. Mix your drugs with these household products, seal them in an airtight container andthrow it into the garbage. Call [facility]: [phone] to be sure your drugs can be [...] aware that I should contact my doctor. Patient/Fund Raiser Signature: Date/Time: Relationship to Patient: Witness Name/Signature: Date/Time: [facility]02-11-2025 Note Date of Service 05/22/2024 Chief Complaint [...] by DANIELLA HERNANDEZ on 05/22/2024 03:21 PM [facility]02-11-2025 Note Date of Service 05/22/24 Chief Complaint Afib and CHF Subjective This is a pleasant 83-year-old female patient who was admitted to the hospital from the swing unit for persistent atrial fibrillation with RVR. [facility] 05[facility]18/2024 for atrial fibrillation with RVR, HFrEF, and hypertension. Initially she was transferred from [facility] to [facility] due to shortness of breath and [...] load andLasix p.o. She went to the [facility] swing unit. Yesterday patient went back into [facility] with RVR andacutely had shortness of breath and pulmonary edema. She was transferred to [facility] and initiated on BiPAP and given IV [...] and Cardizem 30 mg 4 times daily. [id number]-HCTm score 5. *Will transition short acting Cardizem to Cardizem CD 120 once a day *Okay to discharge back to swing unit. *Follow-up in 1 week. 2. Type 2 ME (myocardial infarction) Troponin stable. Most likely due to atrial fibrillation with RVR and pulmonary edema. Will evaluatefor ischemic workup once patient is discharged home. 3. CHF exacerbation Patient appears euvolemic today. [place] Heart Association class III. I think most [...] by ASIM DIEHL on 05/22/2024 08:56 AM [facility]02-10-2025 Note Date of Service 05/21/2024 Chief Complaint [...] by DANIELLA HERNANDEZ on 05/21/2024 03:51 PM [facility]02-09-2025 Note Date of Service 05/20/2024 Chief Complaint severe dyspnea History of Present Illness Patient is an 83-year-old female, who follows with Dr. Emiliano Leal with a past medical history significant for hypertension, chronic kidney disease stage 3, atrial fibrillation, and heart failure,presented to [facility] transitional care program on 05/18 for ongoing rehab. She was admitted to [facility] CCU from 05/13-05/18 for treatment of [...] by DANIELLA HERNANDEZ on 05/20/2024 02:52 PM [facility]02-09-2025 Evaluation + Plan noteExtracted from: Title:History and [...] Date:07/19/2024 03:30:00 PM Scheduled Provider:EMILIANO LEAL DO Location:[facility] Appointment Type:PC OV Future Scheduled Tests Laboratory* Basic Metabolic Panel 05/17/24 * Calcium Level Ionized 05/17/24 * PTH, Intact 05/17/24 Radiology* MA Mammo Diagnostic Right w/ Brian 11/23/23 * US Breast Right Limited 11/23/23 [facility] 02-09-2025 Nurse Progress note 2700 Patient hit call light. When i entered the room she was sitting at the side of the bed saying ''I can't breathe''. I checked her oxygen saturation she was 81% on 2L. Oxygen increased to 4L and Inotified her primary care nurse Natalie ENCINAS. Ruddy SEQUEIRA RN Digitally Signed by CE Sequeira on 05/20/2024 12:43 AM [facility]02-09-2025 Note Date of Service 05/20/2024 Interval cross coverage note. CC: Acute respiratory failure concern for flash pulmonary edema. 73-year-old female with significant past medical history of hypertension, chronic kidney disease stage III, atrial fibrillation, heart failure with reduced ejection fraction (40 to 45%) that initially was admitted to [facility] CCU on 05/13/2024 with new onset atrial fibrillation with RVR, new onset heart failure, and NSTEMI. Patient was treated medically and underwent cardioversion x 3 with the last attempt successful while on IV amiodarone. Patient was medically optimized and discharged to [facility] TCU on 05/18/2024. This evening I was [...] discharged from TCU and admitted to [facility] inpatient with telemetry monitoring due to flash [...] Natalie Elizabeth was notified via telephone at [phone]. She was updated on the acute change in her mother's status and the plan to discharge her from TCU and admit her to inpatient status at [facility] for further medical management. Will attempt to manage patient at [facility], however if she continues to decompensate or does not appropriately respond to therapy she may require transfer to [facility] for additional resources not available at [facility]. Questions answered and daughter is amenable to the plan of care. Digitally Signed by RHINA FALCON on 05/20/2024 02:47 AM [facility]02-09-2025 Note* Exam Date Time Procedure Performing Provider Status 05/20/24 12:05 AM XR Chest 1 View DOMENIC MENEZES MD; Auth (Verified) [id number] ORIGINAL EXAMINATION: ONE XRAY VIEW OF THE [...] Sign Date: 05/20/2024 12:11:45 AM Ordering Provider: [facility]02-08-2025 Evaluation + Plan noteExtracted from: Title:History and Physical Author:DANIELLA HERNANDEZ SOLE SCRAPER-DYNAMOMETER TESTER ENGINE Date:05/19/24 1. Asthenia Consult placed to PT and OT to evaluate and treat. drywall worker consulted for discharge planning. 2. HTN [...] collaborating with physician, and documenting in chart. CPT#08668 Future Appointments Appointment Date:06/13/2024 02:45:00 PM Scheduled Provider:KIMBERLY AGUILAR Location:[facility] Appointment Type:CV OV Hospital Follow Up Appointment Date:07/19/2024 03:30:00 PM Scheduled Provider:EMILIANO LEAL DO Location:[facility] Appointment Type:PC OV Future Scheduled Tests Laboratory* Basic Metabolic Panel 05/17/24 * Calcium Level Ionized 05/17/24 * PTH, Intact 05/17/24 Radiology* MA Mammo Diagnostic Right w/ Brian 11/23/23 * US Breast Right Limited 11/23/23 [facility] 02-08-2025 Note Date of Service 05/19/2024 Chief Complaint weakness History of Present Illness Patient is an 83-year-old female, who follows with Dr. Emiliano Leal with a past medical history significant for hypertension, chronic kidney disease stage 3, atrial fibrillation and heart failure with reduced EF 40-45%, presented to [facility] emergency department with chief complaint of [...] was medically optimized for discharge to [facility] TCU last evening. Patient seen and evaluated [...] PT and OT to evaluate and treat. drywall worker consulted for discharge planning. 2. HTN [...] collaborating with physician, and documenting in chart. CPT#59477 Problem List/Past Medical History Ongoing Chronic renal [...] by DANIELLA HERNANDEZ on 05/19/2024 12:28 PM [facility]02-07-2025 Hospital Discharge instructions Patient Education 05/18/2024 14:44:35 [...] medicine to help you relax (sedative). Take zjma-doh-gteohdp and prescription medicines only as told by [...] 01/16/2014 Document Revised: 03/10/2018 Document Reviewed: 10/01/2016 [employer] Patient Education 2020 [employer]. Follow Up Care 05/13/2024 14:21:07 With:[facility]- Room 237, nurse to nurse [phone]. Address:Unknown When:1-2 days With:EMILIANO LEAL Address: [address] [place] [address]- [phone] Business (1) When:1-2 days Comments:Please call the office to schedule a hospital follow up appointment With:ABHIJEET AGUILAR MD Address: [address] [facility] [place] [address]- [phone] When:06/13/2024 14:45:00 With:Readmission Risk Score Address:Unknown When: Unknown Comments:11 [facility] 02-07-2025 Note Discharge Instructions Thank you for allowing [facility] to assist you with your healthcare needs. The following is importantdischarge information regarding your hospital visit. Your Care Team EMILIANO LEAL DO Your Diagnosis Afib Atrial fibrillation What to do next Instructions From Your Doctor 1. Kindly follow up with your Primary Care Physician and Cambering Machine Operator as recommended. _ 2. Please take Amiodarone [...] reach out to our [facility] office at [phone] for general queries and [phone] for medication refills. 5. All your medical records and results are available to you through our [facility] Patient Portal. Tosign up, please visit [email or web address] Scheduled Follow-Up Appointments Appointment Type When With Where Contact Information StatusCV OV Hospital Follow Up 06/13/2024 02:45 PM EST [facility] 07/19/2024 03:30 PM EDT EMILIANO LEAL DO [address] [phone] Confirmed Follow Up Appointments Follow Up with EMILIANO LEAL When:Within 1-2 days Where:[address] [place] [address]- [phone] Business (1) Additional Information: Please call the office to schedule a hospital follow up appointment Follow Up with Readmission Risk Score Additional Information: 11 Follow Up with ABHIJEET AGUILAR MD When:06/13/2024 02:45 PM EST Where:[address] [place] [address]- [phone] The Following Activity and Diet Have Been [...] within 14 days after discharge, please call [facility] at [phone]. Post Acute Orders Transfer of Care Code [...] a day Take with food. Pickup at [facility] New amiodarone (amiodarone 200 mg oral tablet) 2 tab(s) by mouth Twice daily with meals Duration: 7 Days Pickup at [facility] New apixaban (Eliquis 5 mg oral tablet) 1 tab(s) by mouth Two (2) times a day Refills: 3 Pickup at [facility] New furosemide (Lasix 40 mg oral tablet) 1 tab(s) by mouth Once a day Pickup at [facility] New metoprolol (Toprol-XL 50 mg oral tablet, extended release) 1 tab(s) by mouth Twice daily with meals Pickup at [facility] Unchanged denosumab (Prolia 60 mg/ mL subcutaneous solution) 1 Milliliter Subcutaneous Every 6 months Osteoporosis Pharmacy Information [facility]: [address], [place] [phone] What How Much When Why Comments Stop [...] medicines at the same time (including some sxtk-oab-tyhnldz medicines). Tell your doctor about all medicines [...] may report side effects to FDA at 0-378-LXC-0482. What other drugs will affect apixaban? Sometimes it is not safe to use certain medications at the same time. Some drugs can affect your blood levels of other drugs you take, which may increase side effects or make the medications less effective. Many other drugs (including some emjy-vzg-rrjiyot medicines) can increase your risk of bleeding or blood clots. Tell your doctor about all medicines you have recently used, especially: any other medicines to treat or prevent blood clots; a blood thinner such as heparin or warfarin (Coumadin, Jantoven); an antidepressant; or aspirin or other NSAID (nonsteroidal anti-inflammatory drug) used skilled nursing. This list is not complete and many other drugs may affect apixaban. This includes prescription and pbka-jlo-hqrcfdg medicines, vitamins, and herbal products. Not all [...] to ensure that the information provided by [employer]. ('Multum') is accurate, up-to-date, and complete, but no guarantee is made to that effect. Drug information contained herein may be time sensitive. CrowdClock information has been compiled for use by healthcare practitioners and consumers in the [place] and therefore [employer] does not warrant that uses outside of the [place] are appropriate, unless specifically indicated otherwise. PlayerPros drug information does not endorse drugs, diagnose patients or recommend therapy. PlayerPros drug information isan informational resource designed to [...] effective or appropriate for any given patient. [employer] does not assume any responsibility for any aspect of healthcare administered with the aid of information [employer]dClock provides. The information contained herein is not intended to cover all possible uses, directions, precautions, warnings, drug interactions, allergic reactions, or adverse effects. If you have questions about the drugs you are taking, check with your doctor, nurse or pharmacist. Copyright 4532-9176 [employer]. Version: 6.01. Revision Date: 12/02/2020. amiodarone (oral) [...] products. Avoid taking an herbal supplement containing [place]'s wort. Amiodarone could make you sunburn more [...] may report side effects to FDA at 6-246-TLD-6619. What other drugs will affect amiodarone? Sometimes [...] can affect amiodarone. This includes prescription and xoku-uva-tmpiopp medicines, vitamins, and herbal products. Not all [...] to ensure that the information provided by [employer]. ('Multum') is accurate, up-to-date, and complete, but no guarantee is made to that effect. Drug information contained herein may be time sensitive. CrowdClock information has been compiled for use by healthcare practitioners and consumers in the [place] and therefore [employer] does not warrant that uses outside of the [place] are appropriate, unless specifically indicated otherwise. PlayerPros drug information does not endorse drugs, diagnose patients or recommend therapy. PlayerPros drug information isan informational resource designed to [...] effective or appropriate for any given patient. [employer] does not assume any responsibility for any aspect of healthcare administered with the aid of information CrowdClock provides. The information contained herein is not intended to cover all possible uses, directions, precautions, warnings, drug interactions, allergic reactions, or adverse effects. If you have questions about the drugs you are taking, check with your doctor, nurse or pharmacist. Copyright 5557-4073 [employer]. Version: 7.01. Revision Date: 02/14/2018. Education Materials [...] medicine to help you relax (sedative). Take dvxu-raf-haeipia and prescription medicines only as told by [...] 01/16/2014 Document Revised: 03/10/2018 Document Reviewed: 10/01/2016 ElseTopVisible Patient Education 2020 [employer]. Additional Information VACCINATE! IT SAVES LIVES! Members of the community who have not yet received the COVID-19 vaccine and would like to receive it can visit one of [facility] vaccine clinics. There are many vaccine clinic locations within the [facility]. For locations and available times, please visit [email or web address] It is important to note that some COVID mobile vaccine clinics are held outdoors and may be canceled in rainy or stormy conditions. To learn more about pediatric vaccinations (ages 5-11), we invite you to visit the [facility] webpage. [email or web address] [email or web address] learn more about the COVID-19 vaccine, we invite you to visit the CDC website for a list of frequently asked questions.https://www.cdc.gov/coronavirus/2019-ncov/vaccines/faq.html [facility] Patient Portal Access Instructions: Stay connected with your healthcare team and access your personal medical information anytime with the [facility] Patient Portal. Please follow the directions below to create your [facility] account: 1.Access the email account you provided upon registration to the hospital/physician office.2.Look for an invitation email from [facility].3.Open the email and access the invitation link: AcceptInvitation to [facility].4.Fill in the required tripp to create your account. To access your account, visit [email or web address]. Click the blue button labeled Access Patient Portal and then log in with the username and password that you created in the steps above. You will be able to view your test results, lab results, a summary of your visits, upcoming appointments and more. There is also a convenient messaging option where you can send secure messages to your [employer]uvider. In addition, you will have the ability to download any documents or summaries to your computer and/or send the information securely to a physician. Remember that your healthcare information is confidential, so carefully consider who you will allowto register on the [facility] Patient Portal for access to your information. You can also access the [facility] Patient Portal on the [facility] duke. Simply click on Patient Portal and then log into your account. If you would like to receive a full copy of your medical records, please contact the [facility] Medical Records Department by calling [phone], Tuesday through Tuesday between 8 a.m. and [...] Call your local pharmacy or go to [email or web address] to find one close to you.3.Make use of household items: Use cat litter or old coffee grounds to dispose medications if other options arenot available. Mix your drugs with these household products, seal them in an airtight container andthrow it into the garbage. Call [facility]: [phone] to be sure your drugs can be [...] aware that I should contact my doctor. Patient/Fund Raiser Signature: Date/Time: Relationship to Patient: Witness Name/Signature: Date/Time: [facility] Discharge summary Date of Service 05/18/2024 Discharge Diagnosis New onset atrial fibrillation with RVR [id number] 5 points Acute hypoxic respiratory failure secondary HFrEF Acute on Chronic HFrEF (EF 40-45%), likely tachyarrhythmia induced Hypertension Osteoporosis Hospital Course 83-year-old with medical history significant for hypertension, and osteoporosis who presents as a transfer from [facility] due to shortness of breath. Over the [...] up with your Primary Care Physician and Cambering Machine Operator as recommended. _ 2. Please take Amiodarone [...] reach out to our [facility] office at [phone] for general queries and [phone] for medication refills. 5. All your medical records and results are available to you through our [facility] Patient Portal. Tosign up, please visit [email or web address] Medications New Prescription amiodarone (amiodarone 200 mg [...] with EMILIANO LEAL When:Within 1-2 days Where:[address] [place] [address]- [phone] Business (1) Additional Information: Please call the office to schedule a hospital follow up appointment Follow Up with Readmission Risk Score Additional Information: 11 Follow Up with ABHIJEET AGUILAR MD When:06/13/2024 02:45 PM EST Where:[address] [facility] [place] [address]- [phone] Follow Up Appointments No qualifying data available. [...] Digitally Signed by VICTOR MANUEL PETERSON MD [facility] CenterGlxxohov74-25-7209 Cardiology Progress note Date of Service 05/15/2024 [...] Assessment/Plan New onset atrial fibrillation with RVR [id number] 5 points Acute hypoxic respiratory failure secondary to new onset CHF Hypertension Osteoporosis Patient presents as a transfer from [facility] for evaluation of dyspnea on exertion. Found [...] GEETA BEASLEY MD on 05/15/2024 02:41 PM [facility] CenterUdwditwx31-41-5473 Cardiology procedure note Date of Service May [...] heart rate of 88 bpm. Once a E LEARNING DESIGNER ministered an IV anesthetic agent the patient [...] by MARCELLE ROSAS on 05/18/2024 10:19 AM [facility] CenterApyxssep46-65-6877 Anesthesiology Consult note Patient: JED SEWELL Age: [...] failure, stage 3 (moderate) / SNOMED CT 964367421 / Confirmed HTN (hypertension) / SNOMED CT [id number] / Confirmed Serum calcium elevated / SNOMED CT 376913659 / Confirmed Osteoporosis / SNOMED CT 641361823 / Confirmed, Active Problems (6) Chronic renal failure, stage 3 (moderate) HTN (hypertension) Osteoporosis Serum calcium elevated Shortness of breath Tobacco use Histories Past Medical History: Active HTN (hypertension) ([id number]) Resolved Sciatica (83906537): Resolved. Microalbuminuria (172914055): Resolved. DDD (degenerative disc disease), lumbar (65275546): Resolved. Neck pain on right side (833860118): Resolved. Hypercalcemia (018716435): Resolved. Proteinuria of undiagnosed cause (549121492): Resolved. Acute bronchitis due to infection (613671173): Resolved. Family History: Respiratory disease Father COPD Mother Procedure history: Colonoscopy and biopsy of colon ([id number]) on 11/02/2019 at 78 Years. Colonoscopy (106319253) on 04/11/2011 at 70 Years. Ovarian cyst ([id number]). Appendectomy (652351728). Cholecystectomy (77842031). Abdominal hysterectomy (831179549). Social History: Social & Psychosocial Habits Alcohol [...] Oral36.6 DegC (MAY 18 08:29) Heart Rate Gryroh76 bpm (MAY 18 08:38) SBPH 154 mmHg [...] range of motion. Integumentary: Intact, Warm, Dry, [place]. Neurologic: Alert, Oriented. Review / Management Results [...] 16)H 53.5(MAY 15) . Assessment and Plan [employer] Society of Anesthesiologists (ASA) physical status classification: [...] MARIA TODD DO on 05/18/2024 10:09 AM [facility] CenterVmqcuugc88-33-6301 Cardiology Progress note Date of Service 05/16/2024 [...] Assessment/Plan New onset atrial fibrillation with RVR [id number] 5 points Acute hypoxic respiratory failure secondary to new onset CHF Hypertension Osteoporosis Patient presents as a transfer from [facility] for evaluation of dyspnea on exertion. Found [...] GEETA BEASLEY MD on 05/16/2024 04:44 PM [facility] CenterOlhqfiwk01-15-2681 Cardiology Progress note Date of Service 05/17/2024 [...] Assessment/Plan New onset atrial fibrillation with RVR [id number] 5 points Acute hypoxic respiratory failure secondary to new onset CHF Hypertension Osteoporosis Patient presents as a transfer from [facility] for evaluation of dyspnea on exertion. Found [...] GEETA BEASLEY MD on 05/17/2024 02:49 PM [facility] CenterYvieudfr76-19-3744 Cardiology Progress note Date of Service 05/17/2024 [...] Assessment/Plan New onset atrial fibrillation with RVR GVU4AZ5-XGQa 5 points Acute hypoxic respiratory failure secondary to new onset CHF Hypertension Osteoporosis Patient presents as a transfer from [facility] for evaluation of dyspnea on exertion. Found [...] GEETA BEASLEY MD on 05/17/2024 02:49 PM [facility] CenterNmgbmugq16-12-5912 Cardiology procedure note Date of Service May [...] heart rate of 91 bpm. Once a E LEARNING DESIGNER administered an IV anesthetic agent the patient [...] by MARCELLE ROSAS on 05/17/2024 11:02 AM [facility] CenterSxpgytww84-86-1336 Anesthesiology Consult note Patient: JED SEWELL Age: [...] q6mo, # 1 mL, 0 Refill(s), Pharmacy: [facility], Osteoporosis, 158, cm, 02/23/24 10:19:00 EST, Height, kg,02/23/24 10:19:00 EST, Dosing Weight bisoprolol 5 mg oral tablet: Dose : 5 mg = 1 tab(s), Oral, qHS, # 30 tab(s), 0 Refill(s), Pharmacy:[facility], HTN (hypertension), 158, cm, 04/19/24 14:50:00 EST, Height, kg, 04/19/24 14:50:00 EST, Dosing Weight valsartan 320 mg oral tablet: Dose : 320 mg = 1 tab(s), Oral, qDay, Replaces previous prescription for valsartan 160 mg tablets., # 90 tab(s), 3 Refill(s), Pharmacy: [facility], 158, cm, 02/23/24 10:19:00 EST, Height, kg, [...] failure, stage 3 (moderate) / SNOMED CT 409148354 / Confirmed [facility] (hypertension) / [facility] [id number] / Confirmed Serum calcium elevated / SNOMED CT 730328675 / Confirmed Osteoporosis / SNOMED CT 788764962 / Confirmed, Active Problems (6) Chronic renal failure, stage 3 (moderate) HTN (hypertension) Osteoporosis Serum calcium elevated Shortness of breath Tobacco use Histories Past Medical History: Active HTN (hypertension) ([id number]) Resolved Sciatica (82495597): Resolved. Microalbuminuria (143591977): Resolved. DDD (degenerative disc disease), lumbar (80724751): Resolved. Neck pain on right side (130100708): Resolved. Hypercalcemia (819542079): Resolved. Proteinuria of undiagnosed cause (786610979): Resolved. Acute bronchitis due to infection (189999357): Resolved. Family History: Respiratory disease Father COPD Mother Procedure history: Colonoscopy and biopsy of colon ([id number]) on 11/02/2019 at 78 Years. Colonoscopy ([id number]) on 04/11/2011 at 70 Years. Ovarian cyst ([id number]). Appendectomy (100765098). Cholecystectomy (58569282). Abdominal hysterectomy (560679358). Social History: Social & Psychosocial Habits Alcohol [...] Type 0-10 Pain scale Nail Bed Color [place] Capillary Refill < 2 seconds Heart Sounds [...] facial grimaces, Symmetric resting/crying All Extremity Description [place], Normal for ethnicity Skin Temperature Warm Temperature All Extremities Warm Skin Description [place], Normal for ethnicity, Dry Skin Integrity Pressure points intact Skin Turgor Non-Elastic Mucous Membrane Color [place] Mucous Membrane Description Moist Continuous IV Infusions [...] Type 0-10 Pain scale Nail Bed Color [place] Capillary Refill < 2 seconds Heart Sounds [...] facial grimaces, Symmetric resting/crying All Extremity Description [place], Normal for ethnicity Skin Temperature Warm Temperature All Extremities Warm Skin Description [place], Normal for ethnicity, Dry Skin Integrity Intact Skin Turgor Non-Elastic Mucous Membrane Color [place] Mucous Membrane Description Moist Continuous IV Infusions [...] Type 0-10 Pain scale Nail Bed Color [place] Capillary Refill < 2 seconds Dorsalis Pedis [...] facial grimaces, Symmetric resting/crying All Extremity Description [place], Normal for ethnicity Skin Temperature Warm Temperature All Extremities Warm Skin Description [place], Normal for ethnicity Skin Integrity Pressure points intact Skin Turgor Non-Elastic Mucous Membrane Color [place] Mucous Membrane Description Moist Sensory Perception Jose [...] Alert Aspiration Risk None Eye Opening Response [place] Spontaneously Best Motor Response [place] Obeys simple commands Best Verbal Response Ignacia Oriented [place] Coma Score 15 SEDA Yes Left Pupil [...] evident Teaching Method Explanation Preferred Spoken Language [place]i Preferred Written Language [place]i Family/Caregiver Prefer Spoken Language [place]i Family/Caregiver Prefer Written Language [place] Disease Process General Education Disease process, Signs/Symptoms [...] On and Limits Checked Nail Bed Color [place] Capillary Refill < 2 seconds Heart Sounds [...] Site Condition: No complications All Extremity Description [place], Normal for ethnicity Skin Temperature Warm Temperature All Extremities Warm Skin Description [place], Normal for ethnicity, Dry Skin Integrity Intact Skin Turgor Non-Elastic Mucous Membrane Color [place] Mucous Membrane Description Moist Neurological Language Able to speak clearly, Follows simple commands Neurological Symptoms Weakness Characteristics of Communication Appropriate Level of Consciousness Alert Eye Opening Response Ignacia Spontaneously Best Motor Response [place] Obeys simple commands Best Verbal Response [place] Oriented [place] Coma Score 15 SEDA Yes Strength All [...] On and Limits Checked Nail Bed Color [place] Capillary Refill < 2 seconds Heart Sounds [...] Movement Makes facial grimaces All Extremity Description [place], Normal for ethnicity Skin Temperature Warm Temperature All Extremities Warm Skin Description [place], Normal for ethnicity Skin Integrity Intact Skin Turgor Non-Elastic Mucous Membrane Color [place] Mucous Membrane Description Moist Antecubital Left 05/13/2024 [...] Alert Aspiration Risk None Eye Opening Response [place] Spontaneously Best Motor Response [place] Obeys simple commands Best Verbal Response [place] Oriented [place] Coma Score 15 SEDA Yes Left Pupil [...] On and Limits Checked Nail Bed Color [place] Capillary Refill < 2 seconds Heart Sounds [...] Movement Makes facial grimaces All Extremity Description [place], Normal for ethnicity Skin Temperature Warm Temperature All Extremities Warm Skin Description [place], Normal for ethnicity, Dry Skin Integrity Intact Skin Turgor Non-Elastic Mucous Membrane Color [place] Mucous Membran (more content not included)... [id number] Cardiology Progress note Date of Service 05/16/2024 [...] Assessment/Plan New onset atrial fibrillation with RVR [id number] 5 points Acute hypoxic respiratory failure secondary to new onset CHF Hypertension Osteoporosis Patient presents as a transfer from [facility] for evaluation of dyspnea on exertion. Found [...] GEETA BEASLEY MD on 05/16/2024 04:44 PM [facility] [id number] Note* Exam Date Time Procedure Performing Provider Status 05/16/24 12:24 PM Echocardiogram, Adult - CV JUSTIN MATTHEWS MD; Auth (Verified) [facility] CenterTujnkpah04-40-8464 Cardiology Progress note Date of Service 05/15/2024 [...] Assessment/Plan New onset atrial fibrillation with RVR [id number] 5 points Acute hypoxic respiratory failure secondary to new onset CHF Hypertension Osteoporosis Patient presents as a transfer from [facility] for evaluation of dyspnea on exertion. Found [...] GEETA BEASLEY MD on 05/15/2024 02:41 PM [facility] [id number] Note* Exam Date Time Procedure Performing Provider Status 05/15/24 12:05 PM Electrocardiogram - EKG - CV CELE AGUILAR MD; Auth (Verified) ECG Final Report SINUS RHYTHM LEFT ATRIAL ENLARGEMENT LVH WITH SECONDARY REPOLARIZATION ABNORMALITY Electronic Signature: ABHIJEET AGUILAR MD 05/16/2024 22:24:32 [facility] [id number] Cardiology procedure note Date of Service May [...] heart rate approximately 110 bpm. Once a E LEARNING DESIGNER administered an IV anesthetic agent the patient [...] by MARCELLE ROSAS on 05/15/2024 11:26 AM [facility] CenterSyvakupt53-66-1591 Note* Exam Date Time Procedure Performing Provider Status 05/15/24 10:49 AM Transesophageal Echocardiogram - CV LISA BOSS MD; Auth (Verified) [facility] CenterSwuuqkkr52-05-0528 Anesthesiology Consult note Patient: JED SEWELL Age: [...] q6mo, # 1 mL, 0 Refill(s), Pharmacy: [facility], Osteoporosis, 158, cm, 02/23/24 10:19:00 EST, Height, kg,02/23/24 10:19:00 EST, Dosing Weight bisoprolol 5 mg oral tablet: Dose : 5 mg = 1 tab(s), Oral, qHS, # 30 tab(s), 0 Refill(s), Pharmacy:[facility], HTN (hypertension), 158, cm, 04/19/24 14:50:00 EST, Height, kg, 04/19/24 14:50:00 EST, Dosing Weight valsartan 320 mg oral tablet: Dose : 320 mg = 1 tab(s), Oral, qDay, Replaces previous prescription for valsartan 160 mg tablets., # 90 tab(s), 3 Refill(s), Pharmacy: [facility], 158, cm, 02/23/24 10:19:00 EST, Height, kg, [...] failure, stage 3 (moderate) / SNOMED CT 816767018 / Confirmed HTN (hypertension) / [facility] [id number] / Confirmed Serum calcium elevated / SNOMED CT 405037042 / Confirmed Osteoporosis / SNOMED CT 103383394 / Confirmed, Active Problems (6) Chronic renal failure, stage 3 (moderate) HTN (hypertension) Osteoporosis Serum calcium elevated Shortness of breath Tobacco use Histories Past Medical History: Active HTN (hypertension) ([id number]) Resolved Sciatica (93855739): Resolved. Microalbuminuria (968537479): Resolved. DDD (degenerative disc disease), lumbar (84304012): Resolved. Neck pain on right side (254180524): Resolved. Hypercalcemia (828877514): Resolved. Proteinuria of undiagnosed cause (506540352): Resolved. Acute bronchitis due to infection (050580861): Resolved. Family History: Respiratory disease Father COPD Mother Procedure history: Colonoscopy and biopsy of colon ([id number]) on 11/02/2019 at 78 Years. Colonoscopy (569199035) on 04/11/2011 at 70 Years. Ovarian cyst ([id number]). Appendectomy (450268681). Cholecystectomy (32937912). Abdominal hysterectomy (213335786). Social History: Social & Psychosocial Habits Alcohol [...] evident Teaching Method Explanation Preferred Spoken Language [place]i Preferred Written Language [place] Anticoag. Med Educated Heparin Reason/Purpose of Anticoagulant [...] Type 0-10 Pain scale Nail Bed Color [place] Capillary Refill < 2 seconds Heart Sounds [...] intact Skin Turgor Non-Elastic Mucous Membrane Color [place] Mucous Membrane Description Moist Sensory Perception Jose [...] mL 05/14/2024 23:07 EST Nail Bed Color [place] Capillary Refill < 2 seconds Dorsalis Pedis [...] facial grimaces, Symmetric resting/crying All Extremity Description [place], Normal for ethnicity Skin Temperature Warm Temperature All Extremities Warm Skin Description [place], Normal for ethnicity, Dry Skin Integrity Intact Skin Turgor Non-Elastic Mucous Membrane Color [place] Mucous Membrane Description Moist Neurological Language Able to speak clearly, Follows simple commands Neurological Symptoms Weakness Gait Steady Extremity Movement Equal Swallowing Difficulty None Characteristics of Communication Appropriate Characteristics of Speech Clear Facial Symmetry Symmetric Level of Consciousness Alert Aspiration Risk None Eye Opening Response [place] Spontaneously Best Motor Response Ignacia Obeys simple [...] L/min 05/14/2024 22:17 EST APTT 56.4 seconds VT 05/14/2024 22:09 EST Sensory Perception Jose No [...] External catheter Skin Temperature Warm Skin Description [place], Normal for ethnicity, Dry Skin Integrity Intact Skin Turgor Non-Elastic Mucous Membrane Color [place] Mucous Membrane Description Moist Level of Consciousness [...] On and Limits Checked Nail Bed Color [place] Capillary Refill < 2 seconds Heart Sounds [...] facial grimaces, Symmetric resting/crying All Extremity Description [place], Normal for ethnicity Temperature All Extremities Warm [...] Alert Aspiration Risk None Eye Opening Response [place] Spontaneously Best Motor Response [place] Obeys simple commands Best Verbal Response Ignacia [...] Message FW: Transition of Care sent from [facility] 05/14/2024 15:00 EST External Female external catheter 05/13/2024 Urinary Catheter Output: 750 mL Oral Intake 480 mL 05/14/2024 14:23 EST APTT 47.2 seconds HI 05/14/2024 14:14 EST Post Rehab Outcome Not Done: See ICU flow (Not Done) Individuals Taught Patient Learning Readiness Willing to learn Barriers to Learning None evident Teaching Method Explanation Preferred Spoken Language [place]i Preferred Written Language [place] Anticoag. Med Educated Heparin Reason/Purpose of Anticoagulant Rx or prevent blood clots Anticoagulation Medication Dose / Route / Schedule Demonstrates Self Injection N/A Anticoag Med(s) Teaching Evaluation Verbalizes/Nonverbally indicates understanding Cardiac Rehab - Phase I Not Done (Not Done) 05/14/2024 14:12 EST Transition of Care Note Transition of Care sent from [facility] 05/14/2024 14:11 EST Cardiology Progress Note Progress [...] On and Limits Checked Nail Bed Color [place] Capillary Refill < 2 seconds Heart Sounds [...] Movement Makes facial grimaces All Extremity Description [place], Normal for ethnicity Skin Temperature Warm Temperature All Extremities Warm Skin Description [place], Normal for ethnicity Skin Integrity Intact Skin Turgor Non-Elastic Mucous Membrane Color [place] Mucous Membrane Description Moist Sensory Perception Jose No impairment Moisture Jose Occasionally moist Activity Jose Walks occasionally Mobility Jose Slightly limited Nutrition Jose Adequate Friction and [place]ar Joes No apparent problem Jose Score 19 Hospital [...] Symmetric resting/crying Skin Temperature Warm Skin Description [place], Normal for ethnicity Skin Integrity Intact Skin Turgor Non-Elastic Mucous Membrane Color [place] Mucous Membrane Description Moist Sensory Perception Jose No impairment Moisture Jose Occasionally moist Activity Jsoe Walks occasionally Mobility Jose Slightly limited Nutrition [...] x 4 B (more content not included)... [facility] CenterNzpzwvch51-63-3024 Respiratory therapy Hospital Progress note Respiratory Therapy [...] scheduled medications to Q4hRT PRN Tracey Delgado BRIM RAISER - 05/14/2024 21:44 EST Digitally Signed by Tracey Delgado RRT on 05/14/2024 09:44 PM [facility] CenterDwsvtpwn82-25-8347 History and physical note Date of Service May 13, 2024 History of Present Illness Patient is an 83-year-old with medical history significant for hypertension, and osteoporosis who presents as a transfer from [facility] due to shortness of breath. Over the [...] Assessment/Plan New onset atrial fibrillation with RVR [id number] 5 points Acute hypoxic respiratory failure secondary to new onset CHF Hypertension Osteoporosis Patient presents as a transfer from [facility] for evaluation of dyspnea on exertion. Found [...] DANNY REYES MD on 05/13/2024 10:08 PM [facility] CenterQuqcryti42-83-1195 History and physical note Date of Service May 13, 2024 History of Present Illness Patient is an 83-year-old with medical history significant for hypertension, and osteoporosis who presents as a transfer from [facility] due to shortness of breath. Over the [...] Assessment/Plan New onset atrial fibrillation with RVR [id number] 5 points Acute hypoxic respiratory failure secondary to new onset CHF Hypertension Osteoporosis Patient presents as a transfer from [facility] for evaluation of dyspnea on exertion. Found [...] DANNY REYES MD on 05/13/2024 10:08 PM [facility] CenterXopscgsw05-37-8346 Note* Exam Date Time Procedure Performing Provider Status 05/13/24 5:02 PM Electrocardiogram - EKG - CV NAUN CHANDRA MD; Auth (Verified) ECG Final Report ATRIAL FIBRILLATION PROBABLE ANTERIOR INFARCT, AGE INDETERMINATE Electronic Signature: NAUN CHANDRA MD 05/14/2024 09:28:17 [facility] CenterPzbmkwih72-45-8695 Evaluation + Plan noteExtracted from: Title:History and Physical Author:YAE REYES MD Date:05/13/24 New onset atrial fibrillatio n with RVR [id number] 5 points Acute hypoxic respiratory failure secondary to new onset CHF Hypertension Osteoporosis Patient presents as a transfer from [facility] for evaluation of dyspnea on exertion. Found [...] Date:07/19/2024 03:30:00 PM Scheduled Provider:EMILIANO LEAL DO Location:[facility] Appointment Type:PC OV Future Scheduled Tests Laboratory* Basic Metabolic Panel 05/17/24 * Calcium Level Ionized 05/17/24 * PTH, Intact 05/17/24 Radiology* MA Mammo Diagnostic Right w/ Brian 11/23/23 * US Breast Right Limited 11/23/23 [facility] 02-02-2025 Note* Exam Date Time Procedure Performing Provider Status 05/13/24 1:25 PM XR Chest 1 View ELLY WANG DO; Auth ( Verified) [id number] ORIGINAL EXAMINATION: ONE XRAY VIEW OF THE [...] 05/13/2024 1:39:17 PM Ordering Provider: TERRIE SIMS [facility]02-02-2025 Note* Exam Date Time Procedure Performing Provider Status 05/13/24 11:49 AM EKG [ED AOH] - CV TERRIE SIMS DO; Auth (Verified) ECG Final Report Atrial fibrillation Ventricular premature complex Repolarization abnormality, prob rate related Electronic Signature: TERRIE SIMS DO 05/13/2024 12:19:29 [facility]12-02-2024 Note ORIGINAL EXAMINATION: BONE DENSITOMETRY 03/12/2024 10:45 [...] Sign Date: 03/12/2024 12:06:57 PM Ordering Provider: [facility]08-14-2024 Evaluation + Plan note Future Scheduled Tests Radiology* MA Mammo Diagnostic Right w/ Brian 11/23/23 * US Breast Right Limited 11/23/23 [facility] 07-13-2022 Note ORIGINAL EXAMINATION: CT OF THE [...] Date: 10/21/2021 7:44:20 PM Ordering Provider: [facility]07-13-2022 Note ORIGINAL EXAMINATION: CT OF THE CHEST [...] Sign Date: 10/21/2021 7:44:20 PM Ordering Provider: [facility]2021 Hospital Discharge instructions Patient Education 02/17/2021 [...] the ears or bruising around the eyes [phone] [employer]. [address] [place] [address], [place] [address]. All rights reserved. This information is not [...] in vomit, stools (black or red color) 2459-[address] [employer]. [address] [place] [address], [place] [address]. All rights reserved. This information is not [...] Numbness in the groin or genital area 6542-[address] [employer] [place] [address]. All rights reserved. This information is not intended as a substitute for professional medical care. Always follow yourhealthcare professional's instructions. Follow Up Care 02/17/2021 17:39:03 With:EMILIANO LEAL DO Address: [id number] When:2-4 days [facility] Anesthesiology Consult note* CARLO GLASS DO: PERFORM, SIGN, VERIFY Event Display: Anesthesiology Consultation Authored Date: [id number] Patient: JED SEWELL Age: 83 years Sex: [...] Oral, qDay, #90 cap(s), 3 Refill(s), Pharmacy: [facility], 160, cm, 06/13/24 13:57:00 EST, Height, kg, 06/13/24 13:57:00 EST, Dosing Weight Eliquis 5 mg oral tablet: Dose : 5 mg = 1 tab(s), Oral, BID, # 180 tab(s), 3 Refill(s), Pharmacy: [facility], 160, cm, 06/19/24 6:42:00 EDT, Height, 61.3, kg, 06/19/24 6:42:00 EDT, Dosing Weight Jardiance 10 mg oral tablet: Dose : 10 mg = 1 tab(s), Oral, qAM, # 90 tab(s), 3 Refill(s), Pharmacy: [facility], 160, cm, 06/13/24 13:57:00 EST, [...] qDay, # 90 tab(s), 3 Refill(s), Pharmacy: [facility], 160, cm, 06/13/24 13:57:00 EST, Height, kg, 06/13/24 13:57:00 EST, Dosing Weight bumetanide 1 mg oral tablet: Dose : 1 mg = 1 tab(s), Oral, BID, # 180 tab(s), 3 Refill(s), Pharmacy: [facility], 160, cm, 06/13/24 13:57:00 EST, Height, kg, 06/13/24 13:57:00 EST, Dosing Weight potassium chloride 20 mEq oral tablet, extended release: Dose : 20 mEq = 1 tab(s), Oral, qDay, Takewith food, # 30 tab(s), 3 Refill(s), Pharmacy: [facility], 160, cm, 256:42:00 EDT, Height, kg, 06/19/24 [...] list: Medical Atrial fibrillation / SNOMED CT 97268540 / Confirmed Chronic renal failure, stage 3 (moderate) / SNOMED CT 329789759 / Confirmed HFrEF (heart failure with reduced ejection fraction) / SNOMED CT 9273695515 / Confirmed HTN (hypertension) / SNOMED CT [id number] / Confirmed Serum calcium elevated / SNOMED CT 983273027 / Confirmed Osteoporosis / SNOMED CT 866048359 / Confirmed, Active Problems (10) Atrial fibrillation Chronic renal failure, stage 3 (moderate) HFrEF (heart failure with reduced ejection fraction) HTN (hypertension) ME (myocardial infarction) Mitral regurgitation Osteoporosis Serum calcium elevated Shortness of breath Tobacco use Histories Past Medical History: Active HTN (hypertension) ([id number]) Resolved Sciatica (41899037): Resolved. Microalbuminuria (513319365): Resolved. DDD (degenerative disc disease), lumbar (83001952): Resolved. Neck pain on right side (674232508): Resolved. Hypercalcemia (004240204): Resolved. Proteinuria of undiagnosed cause (361742159): Resolved. Acute bronchitis due to infection (990130724): Resolved. Family History: Respiratory disease Father COPD Mother Procedure history: Colonoscopy and biopsy of colon (5967875803) on 11/02/2019 at 78 Years. Colonoscopy (165956586) on 04/11/2011 at 70 Years. Ovarian cyst ([id number]). Appendectomy (296288282). Cholecystectomy (41333327). Abdominal hysterectomy (106472557). Social History: Social & Psychosocial Habits Alcohol [...] Pressure Cuff Size Medium Nail Bed Color [place] Capillary Refill < 2 seconds Dorsalis Pedis [...] Elimination Devices External catheter All Extremity Description [place], Normal for ethnicity Temperature All Extremities Warm Neurological Language Able to speak clearly Neurological Symptoms Patient denies Characteristics of Communication Appropriate Level of Consciousness Alert Eye Opening Response [place] Spontaneously Best Motor Response Ignacia Obeys simple commands Best Verbal Response [place] Oriented SEDA Yes Left Pupil Reaction Brisk [...] Checked Cardiovascular Symptoms Edema Nail Bed Color [place] Capillary Refill < 2 seconds Heart Sounds [...] Temperature All Extremities Warm Mucous Membrane Color [place] Mucous Membrane Description Moist Sensory Perception Jose [...] Ignacia Obeys simple commands Best Verbal Response [place] Oriented Ignacia Coma Score 15 SEDA Yes [...] scale Cardiovascular Symptoms Edema Nail Bed Color [place] Capillary Refill < 2 seconds Heart Sounds [...] Makes facial grimaces, Symmetric resting/crying Skin Description [place], Normal for ethnicity, Dry Skin Temperature Warm Skin Integrity Pressure points intact Skin Turgor Non-Elastic Skin Symptoms Bruising All Extremity Description [place], Normal for ethnicity Temperature All Extremities Warm Mucous Membrane Color [place] Mucous Membrane Description Moist Antecubital Right 20 [...] scale Cardiovascular Symptoms Edema Nail Bed Color [place] Capillary Refill < 2 seconds Heart Sounds [...] Makes facial grimaces, Symmetric resting/crying Skin Description [place], Normal for ethnicity, Dry Skin Temperature Warm Skin Integrity Pressure points intact Skin Turgor Non-Elastic Skin Symptoms Bruising All Extremity Description [place], Normal for ethnicity Temperature All Extremities Warm Mucous Membrane Color [place] Mucous Membrane Description Moist Antecubital Right 20 [...] evident Teaching Method Explanation Preferred Spoken Language [place]i Preferred Written Language [place] Disease Process General Education Signs/Symptoms to report, Signs/Symptoms of complications Equipment Education radiation monitor, Urinary catheter care, Oxygen, Walker Patient [...] scale Cardiovascular Symptoms Edema Nail Bed Color [place] Capillary Refill < 2 seconds Heart Sounds [...] Makes facial grimaces, Symmetric resting/crying Skin Description [place], Normal for ethnicity, Dry Skin Temperature Warm Skin Integrity Pressure points intact Skin Turgor Non-Elastic Skin Symptoms Bruising All Extremity Description [place], Normal for ethnicity Temperature All Extremities Warm Mucous Membrane Color [place] Mucous Membrane Description Moist Sensory Perception Jose [...] Yes Gait Weak or Impaired Fall Risk Romeor Normal, bedrest, immobile Mental Status Fall Risk [...] Message FW: [facility] [facility] 06/28/2024 14:31 EDT Transition of Care Note Transition of Care sent from [facility] 06/28/2024 14:27 EDT Heart Rate Monitored 96 [...] Anyone Threaten You With Harm Never (1) [facility] Anyone Scream Or Curse At You Never (1) [facility] Safety Total Score 4 Basic Disease [...] Person #1 We May Share ASHU elizabeth- [phone] Designated Person #1 Relationship Daughter Privacy Restrictions Requested None Height 167 cm Height in inches 65.7 inch(es) Admission Weight 63.9 kg Weight Lbs 140.6 lb [place] Body Weight 58.72 kg Type of Scale [...] None Advanced Directives Yes Advance Directive Type [facility] Power of Bite Block Maker [facility] [place] Declaration (Living Will) Advance Directive Location [...] evident Teaching Method Explanation Preferred Spoken Language O[place]i Preferred Written Language [place]i Teaching Evaluation Verbalizes/Nonverbally indicates understanding Safety Brochure [...] Symptoms Edema, Fatigue, Palpitations Nail Bed Color [place] Capillary Refill < 2 seconds Heart Sounds [...] complications Facial Movement Symmetric resting/crying Skin Description [place], Normal for ethnicity, Dry Skin Temperature Warm Skin Integrity Intact, Pressure points intact Skin Turgor Non-Elastic Skin Assessment Completed Admission All Extremity Description [place] Temperature All Extremities Warm Mucous Membrane Color [place] Mucous Membrane Description Moist Continuous IV Infusions [...] 06/28/2024 1:23 EDT Status N/A Romero Screen ED/COOK BOAT patient History of Fall in Last 3 [...] Denies Advanced Directives Yes Advance Directive Type [place] Durable Power of Bite Block Maker for Health Care, [place] Declaration (Living Will) Advance Directive Location Family [...] CV Ordered (In Progress) 06/28/2024 1:20 EDT [place] [facility] Note General Medical Problem *ED 06/28/2024 1:16 EDT Height 160 cm Admission Weight 138 kg [place] Body Weight 52.38 kg Temperature Oral 36.2 [...] Oxygen Flow Rate 4 L/min Skin Description [place], Normal for ethnicity Temperature All Extremities Warm Level of Consciousness Alert Eye Opening Response [place] Spontaneously Best Motor Response Ignacia Obeys simple commands Best Verbal Response Ignacia Oriented [place] Coma Score 15 Strength All Extremities Moderate [...] No Weight Loss No Preferred Spoken Language O[place]i Preferred Written Language [place] Tracking Group ED AO Tracking Group Tracking Acuity 2 ED Diabetic Patient No Mode of Transfer Ground ambulance Ambulance Service [facility] Safety ID band on, Allergy Band on, Call device within reach, Bed in low position, Wheels locked, Safety level maintained Prev Test Positive/Diagnosis w/COVID-19 No Current Quarantine/Isolated any Illness No Any Contact with Sick Animals/Birds No Traveled Anywhere in Last 30 Days No ED Triage Adults ED Triage Adults . Assessment and Plan [employer] Anesthesiologists (ASA) physical status classification: [...] CARLO GLASS DO on 06/29/2024 08:21 AM [facility] Evaluation + Plan note Future Appointments Appointment Date:04/06/2021 08:00:00 AM Scheduled Provider:EMILIANO LEAL DO Location:[facility] Appointment Type:PC OV Follow Up [facility] Evaluation + Plan note Future Appointments Appointment Date:10/05/2021 10:00:00 AM Scheduled Provider:EMILIANO LEAL DO Location:[facility] Appointment Type:PC OV [facility] Evaluation + Plan note Future Appointments Appointment Date:03/11/2022 09:00:00 AM Scheduled Provider:EMILIANO LEAL DO Location:[facility] Appointment Type:PC OV Future Scheduled Tests Laboratory* Creatinine 10/07/21 [facility] Evaluation + Plan note Future Appointments Appointment Date:09/09/2022 09:00:00 AM Scheduled Provider:EMILIANO LEAL DO Location:[facility] Appointment Type:PC OV Follow Up Future Scheduled Tests Laboratory* Creatinine 10/07/21 [facility] Evaluation + Plan note Future Appointments Appointment Date:06/18/2022 11:00:00 AM Scheduled Provider: Brock:TATIANA Appointment Type:US Renal Appointment Date:09/09/2022 09:00:00 AM Scheduled Provider:EMILIANO LEAL DO Location:[facility] Appointment Type:PC OV Follow Up Diagnostic Tests Pending * Vitamin D, 1,25-Dihydroxy 2/15/23 * CHARLES (serum) 05/26/22 * PTH, Related Peptide 05/26/22 Future Scheduled Tests Laboratory* Creatinine 10/07/21 Radiology* US Renal 06/18/22 [facility] evaluation + Plan note Future Appointments Appointment Date:07/19/2024 03:30:00 PM Scheduled Provider:EMILIANO LEAL DO Location:[facility] Appointment Type:PC OV Future Scheduled Tests Laboratory* Basic Metabolic Panel 05/17/24 * Calcium Level Ionized 05/17/24 * PTH, Intact 05/17/24 Radiology* MA Mammo Diagnostic Right w/ Brian 11/23/23 * US Breast Right Limited 11/23/23 [facility] evaluation + Plan note Future Appointments Appointment Date:07/19/2024 03:30:00 PM Scheduled Provider:EMILIANO LEAL DO Location:[facility] ([place], [place]) Appointment Type:PC OV Appointment Date:07/23/2024 03:30:00 PM Scheduled Provider:ASIM DIEHL Location:[facility] Appointment Type:CV OV Future Scheduled Tests Laboratory* Basic Metabolic Panel 05/17/24 * Calcium Level Ionized 05/17/24 * PTH, Intact 05/17/24 Radiology* MA Mammo Diagnostic Right w/ Brian 11/23/23 * US Breast Right Limited 11/23/23 [facility] evaluation + Plan note Future Appointments Appointment Date:08/07/2024 03:00:00 PM Scheduled Provider:ASIM DIEHL Location:[facility] Appointment Type:CV OV Appointment Date:08/08/2024 10:45:00 AM Scheduled Provider: Location:Heart Lab Appointment Type:EP Ablation PF-Ensite Appointment Date:11/12/2024 03:00:00 PM Scheduled Provider:ANASTASIYA JEFF Location:[facility] Appointment Type:CV OV Future Scheduled Tests Radiology* MA Mammo Diagnostic Right w/ Brian 11/23/23 * US Breast Right Limited 11/23/23 [facility] Evaluation + Plan note Future Appointments Appointment Date:09/19/2024 03:00:00 PM Scheduled Provider:ASIM DIEHL Location:[facility] ERENDIRA Appointment Type:CV OV Appointment Date:11/12/2024 03:00:00 PM Scheduled Provider:ANASTASIYA JEFF Location:[facility] Appointment Type:CV OV Future Scheduled Tests Radiology* MA Mammo Diagnostic Right w/ Brian 11/23/23 * US Breast Right Limited 11/23/23 [facility] Evaluation + Plan note Future Appointments Appointment Date:09/19/2024 03:00:00 PM Scheduled Provider:ASIM DIEHL Location:[facility] GRETEL ERENDIRA Appointment Type:CV OV Appointment Date:10/19/2024 02:15:00 PM Scheduled Provider:DONATO NAVARRETE DO Location:[facility] Appointment Type:PC OV Appointment Date:12/20/2024 03:00:00 PM Scheduled Provider:ANASTASIYA JEFF Location:[facility] Appointment Type:CV OV Future Scheduled Tests Laboratory* Basic Metabolic Panel 08/22/24 * Magnesium Level 09/12/24 Radiology* MA Mammo Diagnostic Right w/ Brian 11/23/23 * US Breast Right Limited 11/23/23 [facility] Evaluation + Plan note Future Appointments Appointment Date:01/08/2025 01:00:00 PM Scheduled Provider: Location:RAD Appointment Type:Echo - Echocardiogram Adult Appointment Date:01/16/2025 03:30:00 PM Scheduled Provider:DONATO NAVARRETE DO Location:[facility] Appointment Type:PC OV Appointment Date:01/31/2025 10:30:00 AM Scheduled Provider:ASIM DIEHL Location:[facility] GRETEL ERENDIRA Appointment Type:CV OV Appointment Date:03/21/2025 03:00:00 PM Scheduled Provider:ASIM DIEHL Location:[facility] Appointment Type:CV OV Appointment Date:12/19/2025 03:30:00 PM Scheduled Provider:MEREDITH BAILON Location:[facility] Appointment Type:CV OV Future Scheduled Tests Laboratory* Basic Metabolic Panel 11/05/24 * Basic Metabolic Panel 08/22/24 * Magnesium Level 11/05/24 [facility] evaluation + Plan note Future Appointments Appointment Date:01/16/2025 03:30:00 PM Scheduled Provider:DONATO NAVARRETE DO Location:[facility] Appointment Type:PC OV Appointment Date:01/31/2025 10:30:00 AM Scheduled Provider:ASIM DIEHL Location:[facility] Appointment Type:CV OV Appointment Date:03/21/2025 03:00:00 PM Scheduled Provider:ASIM DIEHL Location:[facility] Appointment Type:CV OV Appointment Date:12/19/2025 03:30:00 PM Scheduled Provider:MEREDITH BAILON Location:[facility] Appointment Type:CV OV Future Scheduled Tests Laboratory* Basic Metabolic Panel 11/05/24 * Basic Metabolic Panel 08/22/24 * Magnesium Level 11/05/24 [facility] Evaluation + Plan note Future Appointments Appointment Date:01/16/2025 03:30:00 PM Scheduled Provider:DONATO NAVARRETE DO Location:[facility] ([place], [place]) Appointment Type:PC OV Appointment Date:01/31/2025 10:30:00 AM Scheduled Provider:ASIM DIEHL Location:[facility] Appointment Type:CV OV Appointment Date:03/21/2025 03:00:00 PM Scheduled Provider:ASIM DIEHL Location:[facility] Appointment Type:CV OV Appointment Date:12/19/2025 03:30:00 PM Scheduled Provider:MEREDITH BAILON Location:[facility] Appointment Type:CV OV Future Scheduled Tests Laboratory* Basic Metabolic Panel 08/22/24 [facility] evaluation + Plan note Future Appointments Appointment Date:02/19/2025 08:30:00 AM Scheduled Provider: Location:Heart Lab Appointment Type:CV Procedure - Heart Lab/Hybrid OR Appointment Date:03/21/2025 03:00:00 PM Scheduled Provider:ASIM DIEHL Location:[facility] Appointment Type:CV OV Appointment Date:12/19/2025 03:30:00 PM Scheduled Provider:MEREDITH BAILON Location:[facility] Appointment Type:CV OV Future Scheduled Tests Laboratory* Basic Metabolic Panel 08/22/24 * Basic Metabolic Panel 02/06/25 * Complete Blood Count 02/06/25 * Prothrombin Time - Panel 02/06/25 [facility] Evaluation + Plan note Future Appointments Appointment Date:02/19/2025 08:00:00 AM Scheduled Provider: Location:Heart Lab Appointment Type:CV Procedure - Heart Lab/Hybrid OR Appointment Date:03/21/2025 03:00:00 PM Scheduled Provider:ASIM DIEHL Location:[facility] Appointment Type:CV OV Appointment Date:12/19/2025 03:30:00 PM Scheduled Provider:MEREDITH BAILON Location:[facility] Appointment Type:CV OV Future Scheduled Tests Laboratory* Basic Metabolic Panel 08/22/24 [facility] Evaluation + Plan note Future Appointments Appointment Date:03/21/2025 03:00:00 PM Scheduled Provider:ASIM DIEHL Location:[facility] Appointment Type:CV OV Appointment Date:12/19/2025 03:30:00 PM Scheduled Provider:MEREDITH BAILON Location:[facility] Appointment Type:CV OV Future Scheduled Tests Laboratory* Basic Metabolic Panel 08/22/24 [facility] Hospital course Narrative No data available for this section [facility] Discharge instructions No data available for this section [facility] Progress note No data available for this section [facility] Summary Purpose Family History No Family History [...] Clerk Daniella PT Position: P3 Scheduling - Sap Pi Architect Advanced Member Role: Other Name: EMILIANO LEAL DO Position: P4 Physician - Primary Care Med Service: Active Provider Member Role: Primary Care Physician Address: Address: [address] [place] [address] Care Team Related Persons Name: NATALIE ELIZABETH Name: SANDRA SEWELL Address: Home [address] [place] [id number] Care Team Personnel Name: Jere Gupta Clerk Daniella PT Position: P3 Scheduling - Sap Pi Architect Advanced Member Role: Other Name: EMILIANO LEAL DO Position: P4 Physician - Primary Care Member Role: Primary Care Physician Address: Address: [address] [place] [address] Care Team Related Persons Name: NATALIE ELIZABETH Name: SANDRA SEWELL Address: Home [address] [place], [place] [id number] [place] Care Team Personnel Name: Jere Gupta Clerk Daniella PT Position: P3 Scheduling - Sap Pi Architect Advanced Member Role: Other Name: EMILIANO LEAL DO Position: P4 Physician - Primary Care Member Role: Primary Care Physician Address: Address: [address] [place] [address] Care Team Related Persons Name: NATALIE ELIZABETH Name: SANDRA SEWELL Address: Home [address] [place], [place] [phone] [place] Care Team Personnel Name: Jere Gupta Clerk Daniella PT Position: P3 Scheduling - Sap Pi Architect Advanced Member Role: Other Name: EMILIANO LEAL DO Position: P4 Physician - Primary Care Member Role: Primary Care Physician Address: Address: [facility] [address] Care Team Related Persons Name: NATALIE ELIZABETH Patient Care team informatio n (unrecognized section and content) Care Team Personnel Name: Candy, Parts Advisor Daniella PT Position: P3 Scheduling - Sap Pi Architect Advanced Member Role: Other Name: EMILIANO LEAL DO Position: P4 Physician - Primary Care Member Role: Primary Care Physician Address: Address: [address] [place] [address] Care Team Related Persons Name: NATALIE ELIZABETH Care Team Personnel Name: Candy, Parts Advisor Daniella PT Position: P3 Scheduling - Sap Pi Architect Advanced Member Role: Other Name: EMILIANO LEAL DO Position: P4 Physician - Primary Care Member Role: Primary Care Physician Address: Address: [address] [place] [address] Care Team Related Persons Name: NATALIE ELIZABETH Care Team Personnel Name: Candy, Parts Advisor Daniella PT Position: P3 Scheduling - Sap Pi Architect Advanced Member Role: Other Name: EMILIANO LEAL DO Position: P4 Physician - Primary Care Member Role: Primary Care Physician Address: Address: [address] [place] [address] Care Team Related Persons Name: NATALIE ELIZABETH Care Team Personnel Name: Candy, Parts Advisor Daniella PT Position: P3 Scheduling - Sap Pi Architect Advanced Member Role: Other Name: EMILIANO LEAL DO Position: P4 Physician - Primary Care Member Role: Primary Care Physician Address: [address] [place] [address] Telecom: Care Team Related Persons Name: NATALIE ELIZABETH Care Team Personnel Name: Candy Parts Advisor Daniella PT Position: P3 Scheduling - Sap Pi Architect Advanced Member Role: Other Name: EMILIANO LEAL DO Position: P4 Physician - Primary Care Member Role: Primary Care Physician Address: [address] [place] [address] Telecom: Care Team Related Persons Name: NATALIE ELIZABETH Care Team Personnel Name: Candy Parts Advisor Daniella PT Position: P3 Scheduling - Sap Pi Architect Advanced Member Role: Other Name: EMILIANO LEAL DO Position: P4 Physician - Primary Care Member Role: Primary Care Physician Address: [address] [phone] Telecom: Care Team Related Persons Name: NATALIE ELIZABETH Care Team Personnel Name: Candy Parts Advisor Daniella PT Position: P3 Scheduling - Sap Pi Architect Advanced Member Role: Other Name: EMILIANO LEAL DO Position: P4 Physician - Primary Care Member Role: Primary Care Physician Address: [address] Telecom: Care Team Related Persons Name: NATALIE ELIZABETH Care Team Personnel Name: Candy, Parts Advisor Daniella PT Position: P3 Scheduling - Sap Pi Architect Advanced Member Role: Other Name: EMILIANO LEAL DO Position: P4 Physician - Primary Care Member Role: Primary Care Physician Address: [address] Telecom: Care Team Related Persons Name: NATALIE ELIZABETH Care Team Personnel Name: Candy Parts Advisor Daniella PT Position: P3 Scheduling - Sap Pi Architect Advanced Member Role: Other Name: EMILIANO LEAL DO Position: P4 Physician - Primary Care Member Role: Primary Care Physician Address: [address] Telecom: Care Team Related Persons Name: NATALIE ELIZABETH Care Team Personnel Name: Candy Parts Advisor Daniella PT Position: P3 Scheduling - Sap Pi Architect Advanced Member Role: Other Name: EMILIANO LEAL DO Position: P4 Physician - Primary Care Member Role: Primary Care Physician Address: [address] [phone] Telecom: Care Team Related Persons Name: MAENATALIE ARRIAZA Care Team Personnel Name: Candy, Parts Advisor Daniella PT Position: P3 Scheduling - Sap Pi Architect Advanced Member Role: Other Name: EMILIANO LEAL DO Position: P4 Physician - Primary Care Member Role: Primary Care Physician Address: [address] [place] [address] Telecom: Care Team Related Persons Name: MAREK NATALIE Care Team Personnel Name: Candy, Parts Advisor Daniella PT Position: P3 Scheduling - Sap Pi Architect Advanced Member Role: Other Name: EMILIANO LEAL DO Position: P4 Physician - Primary Care Member Role: Primary Care Physician Address: [address] [place] [address] Telecom: Care Team Related Persons Name: MAREK NATALIE Name: NATALIE ELIZABETH Name: NATALIE ELIZABETH Care Team Personnel Name: Candy, Parts Advisor Daniella PT Position: P3 Scheduling - Sap Pi Architect Advanced Member Role: Other Name: EMILIANO LEAL DO Position: P4 Physician - Primary Care Member Role: Primary Care Physician Address: [address] [place] [address] Telecom: Care Team Related Persons Name: MAENATALIE ARRIAZA Name: ELEN ELIZABETHA Name: ELEN ELIZABETHA Care Team Personnel Name: Candy, Parts Advisor Daniella PT Position: P3 Scheduling - Sap Pi Architect Advanced Member Role: Other Name: EMILIANO LEAL DO Position: P4 Physician - Primary Care Member Role: Primary Care Physician Address: [address] [place] [address] Telecom: Care Team Related Persons Name: ELEN ELIZABETHA Name: ELEN ELIZABETHA Name: MAREK NATALIE Care Team Personnel Name: Candy, Parts Advisor Daniella PT Position: P3 Scheduling - Sap Pi Architect Advanced Member Role: Other Name: ODNATO NAVARRETE DO Position: P4 Physician - Primary Care Member Role: Primary Care Physician Address: [address] Telecom: Care Team Related Persons Name: NATALIE ELIZABETH Name: NATALIE ELIZABETH Name: NATALIE ELIZABETH Care Team Personnel Name: Candy, Parts Advisor Daniella PT Position: P3 Scheduling - Sap Pi Architect Advanced Member Role: Other Name: DONATO NAVARRETE DO Position: P4 Physician - Primary Care Member Role: Primary Care Physician Address: [address] [place] [address] Telecom: Care Team Related Persons Name: NATALIE ELIZABETH Name: NATALIE ELIZABETH Name: MAECOCONATALIE MICHELLE Care Team Personnel Name: Candy, Parts Advisor Daniella PT Position: P3 Scheduling - Sap Pi Architect Advanced Member Role: Other Name: DONATO NAVARRETE DO Position: P4 Physician - Primary Care Member Role: Primary Care Physician Address: [address] [place] [address] Telecom: Care Team Related Persons Name: NATALIE ELIZABETH Name: NATALIE ELIZABETH Name: NATALIE ELIZABETH Care Team Personnel Name: Candy, Parts Advisor Daniella PT Position: P3 Scheduling - Sap Pi Architect Advanced Member Role: Other Name: DONATO NAVARRETE DO Position: P4 Physician - Primary Care Member Role: Primary Care Physician Address: [address] [place] [address] Telecom: Care Team Related Persons Name: NATALIE ELIZABETH Name: NATALIE ELIZABETH Name: NATALIE ELIZABETH Care Team Personnel Name: Candy, Parts Advisor Daniella PT Position: P3 Scheduling - Sap Pi Architect Advanced Member Role: Other Name: DONATO NAVARRETE DO Position: P4 Physician - Primary Care Member Role: Primary Care Physician Address: [address] Telecom: Care Team Related Persons Name: ABELNATALIE MICHELLE Name: ELEN ELIZABETHA Name: NATALIE ELIZABETH Care Team Personnel Name: Candy Parts Advisor Daniella PT Position: P3 Scheduling - Sap Pi Architect Advanced Member Role: Other Name: DONATO NAVARRETE DO Position: P4 Physician - Primary Care Member Role: Primary Care Physician Address: [address] [place] [address] Telecom: Care Team Related Persons Name: NATALIE ELIZABETH Name: NATALIE ELIZABETH Name: NATALIE ELIZABETH Care Team Personnel Name: Jere Gupta Clerk Daniella PT Position: P3 Scheduling - Sap Pi Architect Advanced Member Role: Other Name: DONATO NAVARRETE DO Position: P4 Physician - Primary Care Member Role: Primary Care Physician Address: [address] [place] [address] Telecom: Care Team Related Persons Name: NATALIE ELIZABETH Name: NATALIE ELIZABETH Name: NATALIE ELIZABETH INFORMATION SOURCE (unrecogn ized section and content) DATE CREATED AUTHOR 11/15/2023 [facility] ([place]) DATE CREATED AUTHOR AUTHOR'S ORGANIZ ATION 02/17/2025 [facility] DATE CREATED AUTHOR AUTHOR'S ORGANIZ ATION 02/20/2025 [facility] FOR RECORDS PERTAINING TO PATIENTS WHO ARE [...] BE BASED ON THE PRIMARY CLINICAL RECORDS. [facility]. provides no warranty or guarantee of the accuracy or completeness of information in this document.
== END 2025-04-05 23:59 | disposition skilled nursing facility (03) ==
LOC: EN 04-26 16:38
PROVIDERS: Visit Provider Internal Medicine Gastroenterology
PROC: 0DJD8ZZ Inspection of Lower Intestinal Tract, Via Natural or Artificial Opening Endoscopic (ICD-10-PCS; CPT 45378; principal; 2025-04-05 10:45)
DX: D62 Acute posthemorrhagic anemia (principal); I13.0 Hypertensive heart and chronic kidney disease with heart failure and stage 1 through stage 4 chronic kidney disease, or unspecified chronic kidney disease; I50.30 Unspecified diastolic (congestive) heart failure; J44.9 Chronic obstructive pulmonary disease, unspecified; I48.0 Paroxysmal atrial fibrillation; N18.31 Chronic kidney disease, stage 3a; K62.1 Rectal polyp; D50.9 Iron deficiency anemia, unspecified; K63.89 Other specified diseases of intestine; K57.30 Diverticulosis of large intestine without perforation or abscess without bleeding; Z79.01 Long term (current) use of anticoagulants; Z87.891 Personal history of nicotine dependence; Z90.710 Acquired absence of both cervix and uterus; E78.5 Hyperlipidemia, unspecified; Z79.51 Long term (current) use of inhaled steroids; Z79.899 Other long term (current) drug therapy; Z90.49 Acquired absence of other specified parts of digestive tract; Z98.49 Cataract extraction status, unspecified eye; K63.5 Polyp of colon; K44.9 Diaphragmatic hernia without obstruction or gangrene; D13.2 Benign neoplasm of duodenum
CPT/HCPCS: 45385; 45380; 43239; 88305; J2405